=== PATIENT | male | born 1945 | race Caucasian/White ===

== ENCOUNTER 2019-03-15 14:52 | Observation (INO) | payer OTHER ==
[~2019-03-15] VITALS: Ht 190.5 cm; Wt 130.4 kg
--- OUTSIDE RECORDS SUMMARY | ~2019-03-15 | XMS | Encounter Summary ---
Demographics + + + | Address | [address] | | | [place] [address] | + + + | Home Phone | | + + + | Preferred Language | Unknown | + + + | Marital Status | Single | + + + | Restorationist Affiliation | Unknown | + + + | Race | Unknown | + + + | Ethnic Group | Unknown | + + + Author + + + | Author | [facility] | + + + | Organization | [facility] | + + + | Address | Unknown | + + + | Phone | Unavailable | + + + Support + + +---------+ + | Name | Relationship | Address | Phone | + + +---------+ + | Caleb Dawn | ECON | Unknown | | + + +---------+ + Care Team Providers + +------+ + | Care Clinical Account Executive Name | Role | Phone | + +------+ + | Anoop Moyer MD | PCP | | + +------+ + Encounter Details +--------+ + + + + | Date | Type | Department | Care Team | Description | +--------+ + + + + | 03/13/ | Documentati | [facility] | Yumiko Del Valle, | | | 2018 | on Only | Ruddy Witt | [address] | | | | | [address] | [address], | | | | | [place] | [place] [address] | | | | | [address] | [phone] | | | | | [phone] | | | +--------+ + + + [...] + +---------+ + | Alcohol Use | Drinks/We | oz/Week | Comments | | | ek | | | + + +---------+ + | No | | | | + + +---------+ + + + + | Sex Assigned at | Date Recorded | | | | + + + | Not on file | | + + + as of this encounter Plan of Treatment +--------+---------+ + + + | Date | Type | Specialty | Care Team | Description | +--------+---------+ + + + | 05/15/ | Office | Cardiology | Yumiko Del Valle, | | | 2018 | Visit | | MD Lupe Cordero | | | | | | Dr [address], | | | | | | [place] [address] | | | | | | [phone] | | | | | | | | +--------+---------+ + + + as of this encounter Visit Diagnoses Not on filein this encounter"
--- OUTSIDE RECORDS SUMMARY | ~2019-03-15 | XMS | Encounter Summary ---
Demographics + + + | Address | [address] | | | [place] [address] | + + + | Home Phone | | + + + | Preferred Language | Unknown | + + + | Marital Status | Single | + + + | Yarsani Affiliation | Unknown | + + + [...] [place] | | | | | [address] | | + + + + + | Atif Delgadillo | ECON | [place] | | | | | [address] | | + + + + + | Caleb Dawn | VALENTÍN | Unknown | | + + + + + Care Team Providers + +------+ + | Care Manufacturing Coordinator Name | Role | Phone | + +------+ + | Anoop Moyer MD | PCP | | + +------+ + Reason for Visit Evaluate & Treat (Routine) + +--------+ + + + + | Status | Reason | Specialty | Diagnoses / | Referred By | Referred To | | | | | Procedures | Contact | Contact | + +--------+ + + + + | Authorized | | Nephrology | Diagnoses | Kayla, | Daniel, | | | | | Chronic | Quique Montgomery, | Freddy Bhagat DO | | | | | kidney | MD [address] | [address] | | | | | disease, | [place] | [address] | | | | | stage 3 | [address] | [address] [place] | | | | | (moderate) | [place], | [place] | | | | | (HCC) | [place] | [address] Phone: | | | | | Hypertension | [address] | [phone] | | | | | , essential | Phone: | Fax: | | | | | Type 2 | [phone] | [phone] | | | | | diabetes | Fax: | | | | | | mellitus | [phone] | | | | | | with [...] | | | MINUTES | | | + +--------+ + + + + Encounter Details +--------+ [...] | | [address] | [place], [address] | goal blood pressure | | | | [place] | [place] | less than 130/80 | | | | [address] | [address] | (Primary Dx); | | | | [phone] | | Chronic kidney | | | [...] Filed Vital Signs + + + + | Vital Sign | Reading | Time Taken | + + + + | Blood Pressure | 140/76 | 12/31/20181 PST | + + + + | Pulse | - | - | + + + + | Temperature | 36.4 C (97.6 F) | 12/31/20181330 PST | + + + + | Respiratory Rate | - | - | + + + + | Oxygen Saturation | - | - | + + + + | Inhaled Oxygen | - | - | | Concentration | | | + + + + | Weight | 129 kg (284 lb 6.3 | 12/31/2018 1331 PST | | | oz) | | + + + + | Height | - | - | + + + + | Body Mass Index | 35.55 | 10/29/2015 1356 PST | + + + + documented in this encounter Patient Instructions Patient Instructions Freddy Sanchez DO - 12/31/2018 13:00 PST1. Start Sensipar 30 mg, every M-W- only for your PTH and CV risk.Electronically signed by DO charlie Harrison 12/31/2018 17:58 PST documented in this encounter Progress Notes Freddy Sanchez DO - 12/31/2018 1300 PSTFormatting of this note might be different fro m the original. Subjective: NEPHROLOGY Patient ID: Steve Tanner is a 73 y.o. male. 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 He also has a history of a remote DU, 2013, hypertension, hyperlipidemia, DJD of knees, SHPTH, ASCVD, s/p left CEA, 20 , anemia secondary to CKD, gout, and Type [...] switch to glimepiride after consultation with his Development Disability Specialist at [facility]. Outpatient Prescriptions Marked as Taking for the 12/31/18 encounter (Off-Site Visit) with Olayinka Sanchez, DO Medication Sig Dispense Refill allopurinol [...] (ELOCON) 0.1 % cream Apply topically Daily. [place]-3 Fatty Acids (FISH OIL) 1200 MG CAPS [...] PHOSEX 3.6 12/28/2018 PTHEX 141.1 (A) 12/28/2018 AZY6LJP 5.7 06/20/2018 Lab Results Component Value Date [...] will help minimize his risk of ASCVD mcc. 2. His BP control is stable. Will [...] prior to that. : [facility], [facility] Matheus Gregory MD, [facility], [place] documented in this e ncounter Plan of Treatment +--------+ + + + + | Date | Type | Specialty | Care Team | Description | +--------+ + + + + | 06/24/ | Off-Site | Nephrology | Freddy Sanchez | | | 2018 | Visit | | DO Olayink[address] | | | | | | [address] | | | | | | [place] | | | | | | [address] [...]
--- OUTSIDE RECORDS SUMMARY | ~2019-03-15 | XMS | Clinical Summary ---
Demographics + + + | Address | [address] | | | [place] [address] | + + + | Home Phone [...] [place] | | | | | [address] | | + + + + + | Atif Delgadillo | ECON | [place] | | | | | [address] | | + + + + + | Caleb Dawn | VALENTÍN | Unknown | | + + + + + Care Team Providers + +------+ + | Care Rail Car Repair Carman Name | Role | Phone | + +------+ + | Anoop Moyer MD | PP | | + +------+ + Allergies + + + + + + | Active Allergy | Reactions | Severity | Noted | Comments | | | | | Date | | + + + + + + | Lisinopril | Other (See Comments) | | 08/29/20 | Cough | | | | | 13 | | + + + + + + | Penicillins | Rash | Low | 08/29/20 | | | | | [...] e | + + + +---------+------+------+-------+ | Linagliptin | Take 5 mg by mouth | | 0 | | | Activ | | (TRADJENTA) 5 MG | Daily. | | | | | e | | TABSIndications: | | | | | | | [...] hyperlipidemia | | | | | | | + + + +---------+------+------+-------+ | carvedilol (COREG) | TAKE ONE TABLET BY | 60 | 6 | 08/0 | | Activ | | 25 mg tablet | MOUTH TWICE A DAY | tablet | | 05/09 | | e | | | (WITH BREAKFAST AND | | | 14 | | | | | DINNER) | | | | | | + + + +---------+------+------+-------+ | losartan (COZAAR) | Take 1 tablet by | 90 | 4 | / | | Activ | | 25 mg | mouth Daily. | tablet | | 01/09 | | e | | tabletIndications: | | | | 15 | | | | Unspecified | | [...] | | | | | | (HCC), Chronic | | | | | | | | kidney disease, | | | | | | | | stage III (moderate) | | | | | | | | (HCC), | | | | | | | | Hyperlipidemia | | | | | | | + + + +---------+------+------+-------+ | furosemide (LASIX) | TAKE ONE TABLET BY | 60 | 6 | 11/22 | | Activ | | 40 mg tablet | MOUTH TWICE A DAY | tablet | | | | e | | | | | | 15 | | | + + + +---------+------+------+-------+ | aspirin [...] Activ | | (CRESTOR) 5 MG | Three times a week. | | | | | e | [...] | | + + + +---------+------+------+-------+ | calcitRIOL | Take 1 capsule by | 30 | 0 | 07/ | | Activ | | (ROCALTROL) 0.5 MCG | mouth Daily. | capsule | | 8/20 | | e | | capsuleIndications: | | | | 16 | | | | Chronic kidney | [...] | | | | | | | Essential | | | | | | | | hypertension with | | | | | | | | goal blood pressure | | | | | | | | less than 130/80, | | | | | | | | High cholesterol | | | | | | | + + + +---------+------+------+-------+ | [place]-3 Fatty | Take 1,200 mg by | | 0 | | | Activ | | Acids (FISH OIL) | mouth 2 times daily. | | | | | e | | 1200 MG CAPS | | | | | | | + + + +---------+------+------+-------+ | liraglutide | Inject 1.2 mg under | | 11 | 12/0 | | Activ | | (VICTOZA) 18 mg/3 mL | the skin Daily. | | | 03/09 | | e | | | | [...] | | + + + +---------+------+------+-------+ | cinacalcet | Take 1 tablet by | 60 | 3 | 12/21 | | Activ | | (SENSIPAR) 30 mg | mouth Three times a | tablet | | 12/09 | | e | | tabletIndications: | week. | | | 19 | | | | Chronic kidney | | | | | | | | disease, stage III | | | | | | | | (moderate) (HCC), | | | | | | | | Hyperparathyroidism | | | | | | | | due to renal | | | | | | | | insufficiency (HCC), | | | | | | | | Essential | | | | | | | | hypertension with | | | | | | | | goal blood pressure | | | | | | | | less than 130/80, | | | | | | | | Hyperlipidemia, | | | | | | | | mixed | | | | | | | + + + +---------+------+------+-------+ Active Problems + + + | Problem | Noted Date | + + + | Secondary hyperparathyroidism of renal origin | 10/26/2015 | + + + | Chest pain | 01/02/2014 | + + + + + | Overview: Echo, 12/15/2013, LVEF was 75%, Logan BESS | | KELLE Bacauclear Stress Test, LVEF [...] + + | 12/31/ | Off-Site | | Freddy Sanchez | Essential | | 2019 | Visit | | M, DO | hypertension with | | | | | | goal blood pressure | | | | | | less than 130/80 | | | | | | (Primary [...] mixed | +--------+ + + + + | 12/31/ | Abstract | | Freddy Sanchez | | | 2018 | | | M, DO | | +--------+ + + + + from Last 3 Months Family History + + + + + | Medical History | Relation | Name | Comments | + + + + + | Arthritis | Mother | Yulisa B. | | | | | | | | | | [place] | | + + + + + | Heart disease | Mother | Redfield B. | Had Triple heart bipass. | | | | | | | | | [place] | | + + + + + + + + + + | Relation | Name | Status | Comments | + + + + + | Father | | | ALCOHOL ABUSE | | | | (Age | | | | | 63) | | + + + + + | Mother | | | CORONARY ARTERY DISEASE | | | | (Age | | | | | 79) | | + + + + + | Mother | Redfield BBeny | | | | | [place] | [...] + | Pulse | 64 | 10/29/2015 1356 PST | + + + + | Temperature | 36.4 C (97.6 F) | 12/31/20181 PST | + + + + | Respiratory Rate | 16 | 10/29/2015 1356 PST | + + + + | Oxygen Saturation | 98% | 09/04/2013 1053 PDT | + + + + | Inhaled Oxygen | - | - | | Concentration | | | + + + + | Weight | 129 kg (284 lb 6.3 | 12/31/2018 1331 PST | | | oz) | | + + + + | Height | 190.5 cm (6' 3") | 10/29/2015 1356 PST | + + + + | Body Mass Index | 35.55 | 10/29/2015 1356 PST | + + + + Plan of Treatment +--------+ + + + + | Date | Type | Specialty | Care Team | Description | +--------+ + + + + | 06/24/ | Off-Site | | Freddy Sanchez | | | 2018 | Visit | | DO [address] | | | | | | [address] | | | | | | [place], [place] | | | | | | [address] | | | | | | | | +--------+ + + + + + + + [...] | | | Dtap/Tdap/Td (1 - | 2 | | | | Tdap) | | | | + + + + + | Vaccine: Zoster (1 | | | | | of 2) | 3 | | | + + + + + | Vaccine: | | 12/03/2008 | | | Pneumococcal 65+ | 0 | | | | Low/Medium Risk (2 | | | | | of 2 - PCV13) | | | | + + + + + | Adult Annual | | | | | Wellness Visit | 5 | | | + + + + + | Hemoglobin A1c | | 12/28/2018, 06/20/2018, | | | Screening | 9 | 06/20/2018, Additional history | | | | | exists | | + + + + + | Vaccine: Influenza | Completed | 11/22/2018, 08/30/2017, | | | | | 10/31/2015 | | + + + + + Procedures + +--------+ + + + | Procedure Name | Priori | Date/Time | Associated Diagnosis | Comments | | | ty | | | | + +--------+ + + + | LABS - EXTERNAL SCAN | | 12/28/2018 | | Results for this | | | | 0:00 PST | | procedure are in the | [...] | EXTERNAL LAB: PTH, | Routin | 12/28/2018 | | Results [...] | EXTERNAL LAB: TK | Routin | 12/28/2018 | | Results for this | | | e | | | procedure are in the | | | | | | results section. | + +--------+ + + + | EXTERNAL LAB: ORION | Yusuf | 12/28/2018 | | Results for this [...] | EXTERNAL LAB: CBC | Routin | 12/28/2018 | | Results [...] Last 3 Months Results External Lab: BUN (12/28/2018) + +-------+ + [...] + +-------+ + + + External Lab: PTH, Intact (12/28/2018) [...] | | + + External Lab: CBC (12/28/2018) + [...] + + | Blood | + + LABS - EXTERNAL SCAN (12/28/2018 0:00 PST) + + + | Narrative | Performed At | + + + | Ordered by an | | | unspecified provider. | | + + + Creatinine Clearance, Result (12/28/2018) + + + [...] | Urine | + + Hemoglobin A1C (12/28/2018) + [...] + + | Blood | + + from Last 3 Months Insurance [...] +---------+--------+ | [employer]EFIT | MAILHA | [id number] | 11/20/19 | [phone] | | PPO | | PLN | NDLERS | | 18-Pre | 8 | | | | | [employer] | | sent | | | | | | PPO | | | | | | + +--------+ +--------+ +---------+--------+ | MEDICARE | MEDICA | [id number] | 02/19/20 | [phone] | | Medica [...] | + +--------+ +--------+ + + | Steve Tanner | Person | Self | [birth year] | [address] | | [place] | al/Fam | | 1945 | [phone] | [place] | | | [place] | | | [address] [place]) | [address] | + +--------+ +--------+ + + Advance Directives Patient has advance care planning documents on file. For more information, please contact:[facility] [address]
--- OUTSIDE RECORDS SUMMARY | ~2019-03-15 | XMS | Encounter Summary ---
Demographics + + + | Address | [address] | | | [place] [address] | + + + | Home Phone [...] [place] | | | | | [address] | | + + + + + | Atif Delgadillo | ECON | [place] | | | | | [address] | | + + + + + | Caleb Dawn | VALENTÍN | Unknown | | + + + + + Care Team Providers + +------+ + | Care Veneer Stock Grader Name | Role | Phone | [...] NEPHROLOGY [address] | M, DO [address] | | | | | [address] [facility] | [place] | | | | | [place], [place] | [place], [place] | | | | | [address] | [address] | | | | | [phone] | | | +--------+ + + + [...] | 2018 | Visit | | DO Anival Bhagat | | | | | | [address] | | | | | | [place] | | | | | | [address] | | | | | | | [...] | EXTERNAL LAB: ENRICO | Routin | 12/28/2018 | | Results [...]
--- OUTSIDE RECORDS SUMMARY | ~2019-03-15 | XMS | Encounter Summary ---
Demographics + + + | Address | [address] | | | [place] [address] | + + + | Home Phone | | + + + | Preferred Language | Unknown | + + + | Marital Status | Single | + + + | Gnosticism Affiliation | Unknown | + + + | Race | Unknown | + + + | Ethnic Group | Unknown | + + + Author + + + | Author | [facility] | + + + | Organization | [facility] | + + + | Address | Unknown | + + + | Phone | Unavailable | + + + Support + + +---------+ + | Name | Relationship | Address | Phone | + + +---------+ + | Caleb Dawn | ECON | Unknown | | + + +---------+ + Care Team Providers + +------+ + | Care Shield Operator Name | Role | Phone | + +------+ + | Anoop Moyer MD | PCP | | + +------+ + Encounter Details +--------+ + + + + | Date | Type | Department | Care Team | Description | +--------+ + + + + | 03/13/ | Documentati | [facility] | Yumiko Del Valle, | | | 2018 | on Only | Ruddy Witt | [address] | | | | | [address] | [address], | | | | | [place] | [place] [address] | | | | | [address] | [phone] | | | | | [phone] | | | +--------+ + + + [...] | | | | | | [place] [address] | | | | | | [phone] | | | | | | | | +--------+---------+ + + + as of this encounter Visit Diagnoses Not on filein this encounter"
--- OUTSIDE RECORDS SUMMARY | ~2019-03-15 | XMS | Encounter Summary ---
Demographics + + + | Address | [address] | | | [place] [address] | + + + | Home Phone | | + + + | Preferred Language | Unknown | + + + | Marital Status | Single | + + + | Rastafari Affiliation | Unknown | + + + | Race | Unknown | + + + | Ethnic Group | Unknown | + + + Author + + + | Author | [email or web address] | + + + | Organization | [email or web address] | + + + | Address | Unknown | + + + | Phone | Unavailable | + + + Support + + +---------+ + | Name | Relationship | Address | Phone | + + +---------+ + | Caleb Dawn | ECON | Unknown | | + + +---------+ + Care Team Providers + +------+ + | Care Paper Sales Representative Name | Role | Phone | + +------+ + | Anoop Moyer MD | PCP | | + +------+ + Encounter Details +--------+ + + + + | Date | Type | Department | Care Team | Description | +--------+ + + + + | 03/13/ | Documentati | [facility] | Yumiko Del Valle, | | | 2018 | on Only | Ruddy Witt | [address] | | | | | [address] | [address], | | | | | [place] | [place] [address] | | | | | [address] | [phone] | | | | | [phone] | | | +--------+ + + + [...] | | | | | | [place] [address] | | | | | | [phone] | | | | | | | | +--------+---------+ + + + as of this encounter Visit Diagnoses Not on filein this encounter"
--- OUTSIDE RECORDS SUMMARY | ~2019-03-15 | XMS | Clinical Summary ---
Demographics + + + | Address | [address] | | | [place] [address] | + + + | Home Phone | | + + + | Preferred Language | Unknown | + + + | Marital Status | Single | + + + | Hinduism Affiliation | Unknown | + + + | Race | Unknown | + + + | Ethnic Group | Unknown | + + + Author + + + | Author | [facility] | + + + | Organization | [facility] | + + + | Address | Unknown | + + + | Phone | Unavailable | + + + Support + + +---------+ + | Name | Relationship | Address | Phone | + + +---------+ + | Caleb Dawn | ECON | Unknown | | + + +---------+ + Care Team Providers + +------+ + | Care Mail Examiner Name | Role | Phone | + [...] | Other (See Comments) | Medium | 02/01/20 | weakness | | | | | 18 | | + + + + + + | Lisinopril | Cough | Low | 02/01/20 | | | | | | 18 | | + + + + + + | Penicillins | Hives | High | 02/01/20 | | | | | | 18 | | + + + + + + Current Medications + + +-------+---------+------+------+-------+ | Prescription | Sig. | Disp. | Refills | Star | End | Statu | | | | | | t | Date | s | | | | | | Date | | | + + +-------+---------+------+------+-------+ | fish oil omega-3 | Take 1 g by mouth | | | | | Activ | | fatty acids 1000 MG | daily. | | | | | e | | capsule | | | | | | | + + +-------+---------+------+------+-------+ | cyanocobalamin | Take 1,000 mcg by | | | | | Activ | | (VITAMIN B-12) 1000 | mouth daily. | | | | | e | | MCG tablet | | | | | | | + + +-------+---------+------+------+-------+ | aspirin 81 MG | Take 81 mg by mouth | | | | | Activ | | tablet | daily. | | | | | e | + + +-------+---------+------+------+-------+ | acetaminophen | Take 500 mg by mouth | | | | | Activ | | (TYLENOL) 500 MG | every 6 (six) hours | | | | | e | | tablet | as needed for Pain. | | | | | | + + +-------+---------+------+------+-------+ | losartan (COZAAR) | Take 25 mg by mouth | | | | | Activ | | 25 MG tablet | daily. | | | | | e | + + +-------+---------+------+------+-------+ | rosuvastatin | Take 5 mg by mouth 3 | | | | | Activ | | (CRESTOR) 5 MG | (three) times a | | | | | e | | tablet | week. | | | | | | + + +-------+---------+------+------+-------+ | carvedilol (COREG) | Take 25 mg by mouth | | | | | Activ | | 25 MG tablet | 2 (two) times daily | | | | | e | | | with meals. | | | | | | + + +-------+---------+------+------+-------+ | linagliptin | Take 5 mg by mouth | | | | | Activ | | (TRADJENTA) 5 MG | daily. | | | | | e | | tablet | | | | | | | + + +-------+---------+------+------+-------+ | furosemide (LASIX) | Take 40 mg by mouth | | | | | Activ | | 40 MG tablet | 2 (two) times daily. | | | | | e | + + +-------+---------+------+------+-------+ | mometasone | Apply topically | | | | | Activ | | (ELOCON) 0.1 % cream | daily. | | | | | e | + + +-------+---------+------+------+-------+ | calcitRIOL | Take 0.5 mcg by | | | | | Activ | | (ROCALTROL) 0.5 MCG | mouth daily. | | | | | e | | capsule | | | | | | | + + +-------+---------+------+------+-------+ | allopurinol | Take 300 mg by mouth | | | | | Activ | | (ZYLOPRIM) 300 MG | daily. | | | | | e | | tablet | | | | | | | + + +-------+---------+------+------+-------+ | liraglutide | Inject 1.8 mg into | | | | | Activ | | (VICTOZA) 18 MG/3ML | the skin daily. | | | | | e | | injection | | | | | | | + + +-------+---------+------+------+-------+ Active Problems + + + | Problem | Noted Date | + + + | ASCVD (arteriosclerotic cardiovascular disease) | 01/31/2018 | + + + | CHF (congestive heart failure) ([facility]) | 01/31/2018 | + + + | Essential hypertension with goal blood pressure less than 130/80 | 01/31/2018 | + + + | S/P carotid endarterectomy | 01/31/2018 | + + + | QUIANA treated with BiPAP | 01/31/2018 | + + + | Secondary hyperparathyroidism of renal origin (HCC) | 10/26/2015 | + + + | History of GI bleed | 12/24/2013 | + + + | Chronic kidney disease, stage III (moderate) (HCC) | 09/05/2013 | + + + | Type 2 diabetes mellitus with stage 3 chronic kidney disease | 09/05/2013 | | (HCC) | | + + + Encounters +--------+ + + + + | Date | Type | Specialty | Care Team | Description | +--------+ + + + + | 03/13/ | Documentati | | Yumiko Del Valle, | | | 2018 | on Only | | MD | | +--------+ + + + + from Last 3 Months Family History + + +------+ + | Medical History | Relation | Name | Comments | + + +------+ + | Alcohol abuse | Father | | | + + +------+ + | Cirrhosis | Father | | | + + +------+ + | Deep vein thrombosis | Father | | | + + +------+ + | Heart failure | Mother | | | + + +------+ + + +------+ + + | Relation | Name | Status | Comments | + +------+ + + | Father | | | | | | | (Age | | | | | 63) | | + +------+ + + | Mother | | | Triple CABG | | | | (Age | | | | | 86) | | + +------+ + + Social History + +-------+ +--------+------+ [...] on file | | + + + Last Filed Vital Signs + + + + | Vital Sign | Reading | Time Taken | + + + + | Blood Pressure | 146/70 | 01/31/2018 2:58 PM PDT | + + + + | Pulse | 61 | 01/31/2018 2:58 PM PDT | + + + + | Temperature | - | - | + + + + | Respiratory Rate | - | - | + + + + | Oxygen Saturation | 95% | 01/31/2018 2:58 PM PDT | + + + + | Inhaled Oxygen | - | - | | Concentration | | | + + + + | Weight | 131.9 kg (290 lb | 01/31/2018 2:58 PM PDT | | | 11.2 oz) | | + + + + | Height | 185.4 cm (6' 1") | 01/31/2018 2:58 PM PDT | + + + + | Body Mass Index | 38.35 | 01/31/2018 2:58 PM PDT | + + + + Plan of Treatment +--------+---------+ + + + | Date | Type | Specialty | Care Team | Description | +--------+---------+ + + + | 05/15/ | Office | | Yumiko Del Valle, | | | 2019 | Visit | | MD Lupe Cordero | | | | | | Dr [place], | | | | | | [place] [address] | | | | | | [phone] | | | | | | | | +--------+---------+ + + + + + + + + | Health Maintenance | Due Date | Last Done | Comments | + + + + + | Diabetic Eye Exam | | | | | | 3 | | | + + + + + | Diabetic Foot Exam | | | | | | 3 | | | + + + + + | Hemoglobin A1c | | | | | | 3 | | | + + [...] | | | | | Pneumococcal 65+ | 8 | | | | Low/Medium Risk (1 | | | | | of 2 - PCV13) | | | | + + + + + | Vaccine: Influenza | | | | | (Season Ended) | 9 | | | + + + + + Results Not on filefrom Last 3 Months Insurance + +--------+ +------+-------+ + | Payer | Benefi | Subscriber | Type | Phone | Address | | | t Plan | ID | | | | | | / | | | | | | | Group | | | | | + +--------+ +------+-------+ + | AETNA | AETNA | [id number] | | | | | | - | | | | | | | [place] | | | | | | | [place] - | | | | | | | [place] | | | | | + +--------+ +------+-------+ + | MEDICARE | MEDICA | [id number] | | | [address] | | | RE | | | | [place] [phone] | | | PART A | | | | | | | ONLY | | | | | + +--------+ +------+-------+ + + +--------+ +--------+ + + | Guarantor Name | Accoun | Relation to | Date | Phone | Billing Address | | | t Type | Patient | of | | | | | | | | | | + +--------+ +--------+ + + | SERGEI TANNER | Person | Self [birth year] Home: | [address] | | | al/Fam | | 1945 | [phone] | [place] | | | [place] | | | [phone] | [phone] | + +--------+ +--------+ + +
--- OUTSIDE RECORDS SUMMARY | ~2019-03-15 | XMS | Encounter Summary ---
Demographics + + + | Address | [address] | | | [place] [address] | + + + | Home Phone [...] [place] | | | | | [address] | | + + + + + | Atif Delgadillo | ECON | [place] | | | | | [address] | | + + + + + | Caleb Dawn | VALENTÍN | Unknown | | + + + + + Care Team Providers + +------+ + | Care Refinery Operator Helper Cracking Unit Name | Role | Phone | + [...] | kidney | MD [address] | | | | | disease, | [place] | [place] | | | | | stage 3 | [place] [address] | [address] [place] | | | | | (moderate) | [place], | [place] | | | | | (HCC) | [place] | [address] Phone: | | | | | Hypertension | [address] | [phone] | | | | | , essential | Phone: | Fax: | | | | | Type 2 | [phone] | [phone] | | | | | diabetes | Fax: | | | | | | mellitus | [phone] | | | | | | with stage 3 | | | | | | | chronic | | | | | | | kidney | | | | | | | disease | | | | | | | (HCC) | | | | | | | Procedures | | | | | | | [place] OFFICE | | | | | | [...] | | [address] | [place], [place] [address] | goal blood pressure | | | | [place] Sand[place] | [place] | less than 130/80 | | | | [address] | [address] | (Primary Dx); | | | | [phone] | | Chronic kidney | | | [...] switch to glimepiride after consultation with his Residential Carpenter at [facility]. Outpatient Prescriptions Marked as Taking for the [...] (ELOCON) 0.1 % cream Apply topically Daily. [place]-3 Fatty Acids (FISH OIL) 1200 MG CAPS [...] PHOSEX 3.6 12/28/2018 PTHEX 141.1 (A) 12/28/2018 [id number] 5.7 06/20/2018 Lab Results Component Value Date [...] will help minimize his risk of ASCVD assisted. 2. His BP control is stable. Will [...] prior to that. : [facility], [facility] Matheus Gregory MD, [facility], [place] documented in this e ncounter Plan of Treatment +--------+ + + + + | Date | Type | Specialty | Care Team | Description | +--------+ + + + + | 06/24/ | Off-Site | Nephrology | Freddy Sanchez | | | 2018 | Visit | | DO [address] | | | | | | [address] | | | | | | [place] | | | | | | [address] [...]
--- OUTSIDE RECORDS SUMMARY | ~2019-03-15 | XMS | Encounter Summary ---
Demographics + + + | Address | [address] | | | [place] [address] | + + + | Home Phone [...] [place] | | | | | [address] | | + + + + + | Atif Delgadillo | ECON | [place] | | | | | [address] | | + + + + + | Caleb Dawn | VALENTÍN | Unknown | | + + + + + Care Team Providers + +------+ + | Care Livestock Trucker Name | Role | Phone | + [...] | kidney | MD [address] | [address] | | | | | disease, | [place] | [place] | | | | | stage 3 | [place] [address] | [address] [place] | | | | | (moderate) | [place], | [place] | | | | | (HCC) | [place] | [address] Phone: | | | | | Hypertension | [address] | [phone] | | | | | , essential | Phone: | Fax: | | | | | Type 2 | [phone] | [phone] | | | | | diabetes | Fax: | | | | | | mellitus | [phone] | | | | | | with stage 3 | | | | | | | chronic | | | | | | | kidney | | | | | | | disease | | | | | | | (HCC) | | | | | | | Procedures | | | | | | | [place] OFFICE | | | | | | [...] | | [address] | [place], [place] [address] | goal blood pressure | | | | [place] Sandoval | [place] | less than 130/80 | | | | [address] | [address] | (Primary Dx); | | | | [phone] | | Chronic kidney | | | [...] switch to glimepiride after consultation with his Phonograph Mechanic at [facility]. Outpatient Prescriptions Marked as Taking [...] (ELOCON) 0.1 % cream Apply topically Daily. [place]-3 Fatty Acids (FISH OIL) 1200 MG CAPS [...] PHOSEX 3.6 12/28/2018 PTHEX 141.1 (A) 12/28/2018 [id number] 5.7 06/20/2018 Lab Results Component Value Date [...] will help minimize his risk of ASCVD [facility]. 2. His BP control is stable. Will [...] prior to that. : [facility] MD, [facility], [facility] Matheus Gregory MD, [facility], [place] documented in this e ncounter Plan of Treatment +--------+ + + + + | Date | Type | Specialty | Care Team | Description | +--------+ + + + + | 06/24/ | Off-Site | Nephrology | Freddy Sanchez | | | 2018 | Visit | | DO [address] | | | | | | [address] | | | | | | [place] | | | | | | [address] [...]
--- OUTSIDE RECORDS SUMMARY | ~2019-03-15 | XMS | Clinical Summary ---
Demographics + + + | Address | [address] | | | [place] [address] | + + + | Home Phone [...] [place] | | | | | [address] | | + + + + + | Atif Delgadillo | ECON | [place] | | | | | [address] | | + + + + + | Caleb Dawn | VALENTÍN | Unknown | | + + + + + Care Team Providers + +------+ + | Care Registration Rep Name | Role | Phone | + [...] | | + + + +---------+------+------+-------+ | [place]-3 Fatty | Take 1,200 mg by | [...] + | Heart disease | Mother | [place] B. | Had Triple heart bipass. | [...] + + + + | Mother | [place] BBeny | | | | | Flores [...] | Visit | | DO [address] | | | | | | [address] | | | | | | [place], [place] | | | | | | [address] | | | | | | | [...] +---------+--------+ | [employer]IL[employer]LERS BENEFIT | MAILHA | [id number] | 11/20/19 | [phone] | | PPO | | PLN | NDLERS | | 18-Pre | 8 | | | | | AETNA | | sent | | | | | | PPO | | | | | | + +--------+ +--------+ +---------+--------+ | MEDICARE | MEDICA | [id number] | 02/19/20 | [phone] | | Medica [...] | | [place] | | | [place] ([place]) | [address] | + +--------+ +--------+ + + Advance Directives Patient has advance care planning documents on file. For more information, please contact:[facility] and [facility] [place] [address]
--- OUTSIDE RECORDS SUMMARY | ~2019-03-15 | XMS | Encounter Summary ---
Demographics + + + | Address | [address] | | | [place] [address] | + + + | Home Phone [...] [place] | | | | | [address] | | + + + + + | Atif Delgadillo | ECON | [place] | | | | | [address] | | + + + + + | Caleb Dawn | VALENTÍN | Unknown | | + + + + + Care Team Providers + +------+ + | Care Yard Loader Operator Name | Role | Phone [...] NEPHROLOGY [address] | M, DO [address] | | | | | [address] [facility] [address] | [place], [facility] 100 | | | | | [place], [place] | [place], [place] | | | | | [address] | [address] | | | | | [phone] | | | +--------+ + + + [...] [place] | | | | | | [address] | | | | | | | [...]
--- OUTSIDE RECORDS SUMMARY | ~2019-03-15 | XMS | Clinical Summary ---
Demographics + + + | Address | [address] | | | [place] [address] | + + + | Home Phone [...] [place] | | | | | [address] | | + + + + + | Atif Delgadillo | ECON | [place] | | | | | [address] | | + + + + + | Caleb Dawn | VALENTÍN | Unknown | | + + + + + Care Team Providers + +------+ + | Care Inspector Grain Mill Products Name | Role | Phone | + [...] | | + + + +---------+------+------+-------+ | [place]-3 Fatty | Take 1,200 mg by | [...] + | Heart disease | Mother | [place] B. | Had Triple heart bipass. | [...] + + + + | Mother | [place] BBeny | | | | | Flores [...] | Visit | | DO [address] [place] [place] | | | | | | [address] | | | | | | [place], [place] | | | | | | [address] | | | | | | | [...] +---------+--------+ | [employer]IL[employer] BENEFIT | MAILHA | [id number] | 11/20/19 | [phone] | | PPO | | PLN | NDLERS | | 18-Pre | 8 | | | | | AETNA | | sent | | | | | | PPO | | | | | | + +--------+ +--------+ +---------+--------+ | MEDICARE | MEDICA | [id number] | 02/19/20 | [phone] | | Medica [...] | | [place] | | | 7 ([place]) | [address] | + +--------+ +--------+ + + Advance Directives Patient has advance care planning documents on file. For more information, please contact:[facility] and [facility] [place] [address]
--- OUTSIDE RECORDS SUMMARY | ~2019-03-15 | XMS | Clinical Summary ---
Demographics + + + | Address | [address] | | | [place] [address] | + + + | Home Phone | | + + + | Preferred Language | Unknown | + + + | Marital Status | Single | + + + | Catholic Affiliation | Unknown | + + + | Race | Unknown | + + + | Ethnic Group | Unknown | + + + Author + + + | Author | [facility] | + + + | Organization | [facility] | + + + | Address | Unknown | + + + | Phone | Unavailable | + + + Support + + +---------+ + | Name | Relationship | Address | Phone | + + +---------+ + | Caleb Dawn | ECON | Unknown | | + + +---------+ + Care Team Providers + +------+ + | Care Sports Marketing Internship Name | Role | Phone | [...] + + | CHF (congestive heart failure) ([facility]) | 01/31/2018 | + + + | [...] [place], | | | | | | [place] [address] | | | | | | [phone] | | | | | | | [...] +------+-------+ + | AETNA | AETNA | [id number] | | | | | | - | | | | | | | [place] | | | | | | | [place] | | | | | | | [place] | | | | | + +--------+ +------+-------+ + | MEDICARE | MEDICA | [id number] | | | [address] | | | RE | | | | [place] [address] | | | PART A | | [...] Self | [birth year] | Home: | [address] | | | al/Fam | | 1945 | [phone] | [place] | | | [place] | | | [phone] | [address] | + +--------+ +--------+ + +
--- OUTSIDE RECORDS SUMMARY | ~2019-03-15 | XMS | Encounter Summary ---
Demographics + + + | Address | [address] | | | [place] [address] | + + + | Home Phone [...] + + + | Author | [facility] | | | and [place] | + + + | Organization | [facility] | | | and [place] | + + + | Address | Unknown | + + + | Phone | Unavailable | + + + Support + + + + + | Name | Relationship | Address | Phone | + + + + + | Hi Dawn | ECON | [place] | | | | | [address] | | + + + + + | Atif Delgadillo | ECON | [place] | | | | | [address] | | + + + + + | Caleb Dawn | VALENTÍN | Unknown | | + + + + + Care Team Providers + +------+ + | Care Hospital Nurse Liaison Name | Role | Phone | + [...] NEPHROLOGY [address] | M, DO [address] | | | | | [address] [facility] | [place], [facility] 100 | | | | | [place], [place] | [place], [place] | | | | | [address] | [address] | | | | | [phone] | | | +--------+ + + + [...] 06/24/ | Off-Site | Nephrology | Freddy Sancehz | | | 2018 | Visit | | DO Anival Bhagat | | | | | | [address] | | | | | | [place] | | | | | | [address] | | | | | | | [...]
--- OUTSIDE RECORDS SUMMARY | ~2019-03-15 | XMS | Clinical Summary ---
Demographics + + + | Address | [address] | | | [place] [address] | + + + | Home Phone | | + + + | Preferred Language | Unknown | + + + | Marital Status | Single | + + + | Zoroastrianism Affiliation | Unknown | + + + | Race | Unknown | + + + | Ethnic Group | Unknown | + + + Author + + + | Author | [facility] | + + + | Organization | [facility] | + + + | Address | Unknown | + + + | Phone | Unavailable | + + + Support + + +---------+ + | Name | Relationship | Address | Phone | + + +---------+ + | Caleb Dawn | ECON | Unknown | | + + +---------+ + Care Team Providers + +------+ + | Care Bi Analyst Name | Role | Phone | [...] | CHF (congestive heart failure) ([facility]) | 01/31/2018 | + + + [...] [place], | | | | | | [place] [address] | | | | | | [phone] | | | | | | | [...] +------+-------+ + | AETNA | AETNA | [id number] | | | | | | - | | | | | | | [place] | | | | | | | [place] | | | | | | | [place] | | | | | + +--------+ +------+-------+ + | MEDICARE | MEDICA | [id number] | | | [address] | | | RE | | | | [place] [address] | | | PART A | | [...] Self | [birth year] | Home: | [address] | | | al/Fam | | 1945 | [phone] | [place] | | | [place] | | | [phone] | [address] | + +--------+ +--------+ + +
[~2019-03-15 14:52] MED LIST: ALLOPURINOL100 MG PO; ASPIRIN EC81 MG PO; ATENOLOL100 MG PO; BENICAR HCT 401 EAC1 PO; BETAMETHASONE V15 G1 TP; CALCITRIOL0.5 MCG PO; CARDIZEM CD180 MG PO; CARVEDILOL12.5 MG PO; CLARITIN-D 121 EACH PO; CLONIDINE HCL0.1 MG PO; CYCLOBENZAPRINE10 MG PO; DILTIAZEM 24HR180 M1 PO; FISH OIL 1,2001 EAC4 PO; GEMFIBROZIL600 MG PO; HYDROCODON-ACE1 EAC8 PO; LANTUS100 UNIT/1 SUB-Q; LASIX40 MG PO; LOSARTAN POTASS25 MG PO; METFORMIN HCL500 MG PO; NATEGLINIDE60 MG PO; NIACIN500 M1 PO; NITROSTAT0.4 MG SL; OMEPRAZOLE20 MG PO; PERCOCET 5-3251 EACH PO; PLAVIX75 MG PO; PROBENECID-COL1 EACH PO; PROCRIT10000 UNIT IJ; ROSUVASTATIN CAL5 MG PO; SIMVASTATIN10 MG PO; SUCRALFATE1 GM PO; SUDOGEST30 MG PO; TERBINAFINE HC250 MG PO; TRADJENTA5 MG PO; VICTOZA 2-0.6 MG/0.1 SUB-Q
[2019-03-15] MEDS ORDERED: VICTOZA 3-0.6 MG/0.1 SUB-Q (15:07)
[2019-03-15] MEDS ORDERED: CARVEDILOL25 MG PO (17:58)
[2019-03-15] MEDS ORDERED: ALLOPURINOL300 MG PO (18:00)
[2019-03-15] MEDS ORDERED: GLIMEPIRIDE1 MG PO (18:01)
--- NOTE | 2019-03-15 18:31 | NUR ---
174: PT ARRIVED TO MED-SURG. PT DENIES ANY PAIN OR DIFFICULTY WITH HIS VISION, HOWEVER HE STATES HE STILL FEELS WEAK. PT AMBULATED TO THE BR AND VOIDED 550 ML OF CLEAR YELLOW URINE. TELE #1 PLACED AND IT APPEARS TO BE SR AT AROUND 70 BPM. IV FLUID STARTED ORDERED. PT ORIENTED TO THE ROOM AND INSTUCTED IN THE USE OF THE CALL HANNAH. PT APPEARS IN NO DISTRESS AT THIS TIME.
--- NOTE | 2019-03-15 18:33 | NUR ---
Medications reconciled with some changes, notably, Carvedilol is 25mg BID instead of 12.5mg BID, daily ASA is 81mg rather than 325mg, allopurinol is 300mg daily rather than 200mg daily
--- NOTE | 2019-03-15 19:30 | NUR ---
RECIEVED BEDSIDE REPORT FROM DAYLIN MEYERS. PATIENT LAYING AWAKE IN BED WITH DINNER AND VISITORS AT BEDSIDE. CALL LIGHT WITHIN REACH. PATIENT DENIES ANY NEEDS AT THIS TIME.
--- NOTE | 2019-03-15 19:40 | NUR ---
NOTIFED RESPIRATORY THERAPIST OF PATIENT'S HOME CPAP MACHINE AT BEDSIDE.
--- NOTE | 2019-03-15 20:30 | NUR ---
PROVIDED BEDSIDE REPORT TO ALYSE MEYERS. PATIENT LAYING AWAKE IN BED. CALL LIGHT WITHIN REACH. NO MORE NEEDS AT THIS TIME.
--- NOTE | 2019-03-15 20:45 | NUR ---
AMUSEMENT CENTRE MANAGER ROUNDING COMPLETE. WHITE BOARD UPDATED. PT DENIES NEEDS AT THIS TIME. CALL LIGHT WITHIN REACH.
--- NOTE | 2019-03-15 20:54 | NUR ---
Vital signs and I&Os were complete. patient doesnt need anything further at this time.
--- NOTE | 2019-03-16 | NUR ---
PATIENT RESTING QUIETLY IN BED WATCHING TV.
--- NOTE | 2019-03-16 02:00 | NUR ---
JUST GOT PATIENT BACK INTO BED AFTER 1 PSBA TO THE BATHROOM TO VOID IN THE URINAL. DENIES PAIN. WATER AT BEDSIDE AND CALL LIGHT IN REACH.
--- NOTE | 2019-03-16 03:26 | NUR ---
RESTING QUIETLY SUPINE EYES CLOSED, RESPIRATIONS REGULAR AND EVEN.
--- NOTE | 2019-03-16 05:30 | NUR ---
PATIENT IS AWAKE READING A BOOK AND WATCHING TV AT THIS TIME. SLEPT WELL EXCEPT FOR WHEN HE NEEDED TO GET UP AND USE THE BATHROOM.
--- NOTE | 2019-03-16 07:34 | NUR ---
BEDSIDE REPORT RECIEVED FROM ALYSE MEYERS. PT LYING IN BED AND HE STATES HE IS FEELING "BETTER". CALL LIGHT AND PERSONAL ITEMS WITHIN REACH.
--- NOTE | 2019-03-16 09:15 | NUR ---
PT RESTING IN HIS BED AND HE STATES HE IS FEELING A LITTLE WEAK BUT IT HAS IMPROVED OVER YESTERDAY. HE ALSO STATES HIS VISION SEEMS BASELINE WHICH IT WAS NOT YESTERDAY AFTERNOON.
--- NOTE | 2019-03-16 09:28 | NUR ---
tele sr at 63 at this time.
--- NOTE | 2019-03-16 10:00 | NUR ---
IV SITE SALINE LOCKED ORDERED. PT DENIES ANY NEW PROBLEMS AT THIS TIME.
--- NOTE | 2019-03-16 10:41 | NUR ---
REPORT GIVEN TO SHARA MEYERS.
--- NOTE | 2019-03-16 16:03 | NUR ---
PT RESTING COMFORTABLY. NO NEEDS AT THIS TIME.
--- NOTE | 2019-03-16 18:06 | NUR ---
PT CO OF NASAL CONGESTION AND HEADACHE. HE HAS NASAL SPRAY AT BEDSIDE. PT DOES NOT THINK TYLENOL IS EFFECTIVE.
--- NOTE | 2019-03-16 18:30 | NUR ---
PT ALERT AND AWAKE ALL SHIFT. TOLERATED RENAL DIET WELL. VOIDING WELL. MAINTAINING SINUS RYTHYM ON TELE. NO PAUSES NOTED. S/L.
--- NOTE | 2019-03-16 19:48 | NUR ---
PATIENT HAVING NO PAIN AND IS SITTING IN BED WATCHING TV. PATIENT HAS WATER AND HAS NO NEEDS AT THIS TIME. CALL LIGHT IN REACH.
--- NOTE | 2019-03-16 20:55 | NUR ---
ART CRITIC ROUNDING NOTE. PT STANDING UP AT COUCH, LOOKING OUTSIDE. PT STATES HE IS JUST "STRECHING HIS LEGS AFTER BEING IN BED A FEW DAYS". AGREES THAT HE IS FEELING BETTER. PT TELE BATTERY CHANGED. URINAL EMTPIED. ICE WATER PROVIDED. PT DENIES FURTHER NEEDS. CALL LIGHT IN REACH. WHITE BOARD UPDATED.
--- NOTE | 2019-03-16 21:38 | NUR ---
PATIENT SITTING IN BED WATCHING BASEBALL. NO NEEDS AT THIS TIME.
--- NOTE | 2019-03-16 21:58 | NUR ---
V/S AND I&O TAKEN AND CHARTED.
--- NOTE | 2019-03-16 21:59 | NUR ---
CHIEF ORDER DISPATCHER ROUNDING NOTE. PT UP TO BATHROOM WITH 2 PA AND CAREGIVER SBA. PT YELLLING, ATTEMPTING TO PULL CATHETER OUT DESPITE REDIRECTION. PT HIT FOOD AND BEVERAGE DIRECTOR AND DISABILITY REPRESENTATIVE. PT ASSISTED BACK TO BED. CG DENIES FURTHER NEEDS. BED ALARM ACTIVE. PRIMARY RN IN ROOM AT FOOD AND BEVERAGE DIRECTOR EXITING. CALL LIGHTIN REACH. ROOM IN VIEW OF RN STATION. WHITE BOARD UPDATED.
--- NOTE | 2019-03-16 23:01 | NUR ---
PATIENT STOOD AT BED SIDE TO USE URINAL AND THEN WAS INCONTINENT STOOL AND DRAW SHEET HAD TO BE CHANGED AND PAYROLL SERVICES ANALYST'S GOT PATIENT BACK TO BED. CALL LIGHT IN REACH.
--- NOTE | 2019-03-16 23:07 | NUR ---
PATIENT STILL SITTING IN TV WATCHING TV. NO NEEDS AT THIS TIME. CALL LIGHT IN REACH.
--- NOTE | 2019-03-17 00:16 | NUR ---
PATIENT HAD FALLEN ASLEEP BUT HAD FORGOTTEN TO PU ON HIS CPAP, SO AWOKE HIM LONG ENOUGH FOR HIM TO GET THAT PLACED AND HE IS GOING BACK TO SLEEP. CALL LIGHT IN REACH.
--- NOTE | 2019-03-17 01:14 | NUR ---
PATIENT IN BED RESTING QUIETLY WITH HIS CPAP ON. CALL LIGHT IN REACH.
--- NOTE | 2019-03-17 04:08 | NUR ---
JUST GOT PATIENT SOME NEW ICE WATER AND HE IS UP TO THE BATHROOM.
--- NOTE | 2019-03-17 05:26 | NUR ---
PATIENT IS SALINE LOCKED. NO C/O PAIN USING THE BATHROOM INDEPENDENTLY. HAS SLEPT MOST THE NIGHT WITH HIS CPAP ON AND HAS REALLY NOT HAD ANY NEEDS OTHER THAN FRESH WATER. RESTING RIGHT NOW WITH EYES CLOSED ON HIS CPAP. CALL LIGHT IN REACH.
--- NOTE | 2019-03-17 07:34 | NUR ---
BEDSIDE REPORT, PT RESTING IN BED ALERT AND ORIENTED. NO REQUESTS AT THIS TIME. BREAKFAST IS ORDERED.
--- NOTE | 2019-03-17 08:06 | EKG ---
[facility] [address] [facility] [place], [place] [address] Signed Normal sinus rhythm Normal ECG No previous ECGs available Confirmed by THEODORE SERRANO MD ([id number]) on 03/17/2019 8:06:21 AM Electronically Signed By: THEODORE SERRANO MD 03/17/19 0806 PATIENT NAME: SERGEI ESPANA Electrocardiogram DATE OF : 41 PHYSICIAN: THEODORE SERRANO MD REPORT #: [id number] REPORT IS CONFIDENTIAL AND NOT TO BE RELEASED WITHOUT AUTHORIZATION
[2019-03-17] MEDS ORDERED: CARVEDILOL6.25 MG PO (10:26)
--- NOTE | 2019-03-17 11:42 | NUR ---
I.V. SITE REMOVED WNL TIP INTACT. DISCHARGE EDUCATION GIVEN WITH INSTRUCTIONS ON RENAL DIET AND PRINT OUT, FOLLOW UP APPOINTMENT MADE FOR March AT 2:00PM WITH . MEDICATION INSTRUCTIONS GIVEN WITH NEXT DOSE LAST DOSE AND SIDE EFFECTS DISCUSSED BY RN AND HAYDEN PHARMACIST. DISCUSSED SIGNS AND SYMPTOMS TO MONITOR FOR AND SEEK MEDICAL ATTENTION RIGHT AWAY FOR. PT ABLE TO VERBALIZE BACK INSTRUCTIONS, PT REFUSED NEED FOR ASSISTANCE IN ROOM TO DRESS AT THIS TIME. NO OTHER REQUESTS OR CONCERNS AT THIS TIME. PT VERBALIZED WANTING TO STAY FOR LUNCH IT IS ALREADY ORDERED. RN SAID WE ARE HAPPY TO HAVE YOU STAY FOR LUNCH.
== END 2019-03-17 12:00 | disposition home or self-care (01) ==
LOC: ED 14:52 → MS 14:54
PROVIDERS: ADMIT Internal Medicine
DX: N17.9 Acute kidney failure, unspecified (principal); R00.1 Bradycardia, unspecified; G47.30 Sleep apnea, unspecified; E11.9 Type 2 diabetes mellitus without complications; I10 Essential (primary) hypertension; E78.5 Hyperlipidemia, unspecified; M10.9 Gout, unspecified; Z79.82 Long term (current) use of aspirin; Z79.899 Other long term (current) drug therapy; Z88.0 Allergy status to penicillin; Z88.8 Allergy status to other drugs, medicaments and biological substances
CPT/HCPCS: 36415; 80048; 80053; 81001; 83735; 85025; 93005; 93010; 96360; 99285-25; G0378; J7030; J7040

== ENCOUNTER → 2019-10-22 | Emergency (ER) | payer OTHER ==
[~2019-10-22] VITALS: Ht 190.5 cm; Wt 130.4 kg
[~2019-10-22] MED LIST changes: +ACETAMINOPHEN500 MG PO; +ALLOPURINOL300 MG PO; +CARVEDILOL25 MG PO; +CARVEDILOL6.25 MG PO; +FLONASE ALLERG9.9 ML NAS; +GLIMEPIRIDE1 MG PO; +MELATONIN5 M2 PO; +MOMETASONE FURO15 GM TOP; +VICTOZA 3-0.6 MG/0.1 SUB-Q; +VITAMIN B122500 MCG PO; +VITAMIN D35000 UNI1 PO
--- OUTSIDE RECORDS SUMMARY | ~2019-10-22 | XMS | Encounter Summary ---
Demographics + + + | Address | [address] | | | [place] [address] | + + + | Home Phone | | + + + | Preferred Language | Unknown | + + + | Marital Status | Single | + + + | Advent Affiliation | Unknown | + + + | Race | Unknown | + + + | Ethnic Group | Unknown | + + + Author + + + | Author | [facility] | | | and [place] | + + + | Organization | [facility] | | | and [place] | + + + | Address | Unknown | + + + | Phone | Unavailable | + + + Support + + + + + | Name | Relationship | Address | Phone | + + + + + | Hi Dawn | ECON | [place] | | | | | [address] | | + + + + + | Atif Delgadillo | ECON | [place], [place] | | | | | [address] | | + + + + + | Caleb Dawn | ECON | Unknown | | + + + + + Care Team Providers + +------+ + | Care Spring Inspector Name | Role | Phone | + +------+ + PCP | Unavailable | + +------+ + Encounter Details +--------+ + + + + | Date | Type | Department | Care Team | Description | +--------+ + + + + | 01/29/ | Hospital | [facility] | | | | 2006 | Encounter | MED CTR XRAY [address] | | | | | | [address] | | | | | | [place] [address] | | | | | | [phone] | | | +--------+ + + + + Social History + +-------+ +--------+------+ | Tobacco Use | Types | Packs/Day | Years | Date | | | | | Used | | + +-------+ +--------+------+ | Never Assessed | | | | | + +-------+ +--------+------+ + + + | Sex Assigned at | Date Recorded | | | | + + + | Not on file | | + + + + + + + | Job Start Date | Occupation | Industry | + + + + | Not on file | Not on file | Not on file | + + + + + + + + | Travel History | Travel Start | Travel End | + + + + + + | No recent travel history available. | + + documented as of this encounter Plan of Treatment +--------+ + + + + | Date | Type | Specialty | Care Team | Description | +--------+ + + + + | 03/16/ | Off-Site | Nephrology | Freddy Sanchez | | 2019 | Visit | | DO Anival Bh[address] [place] | | | | | | [place] | | | | | | [place] | | | | | | [phone] | | | | | | | | +--------+ + + + + | 05/20/ | Office | Cardiology | Yumiko Del Valle, | | | 2019 | Visit | | MD Lupe TYLER | | | | | | [place] | | | | | | [phone] | | | | | | | | +--------+ + + + + documented as of this encounter Visit Diagnoses Not on filedocumented in this encounter"
--- OUTSIDE RECORDS SUMMARY | ~2019-10-22 | XMS | Encounter Summary ---
Demographics + + + | Address | [address] | | | [place] [address] | + + + | Home Phone | | + + + | Preferred Language | Unknown | + + + | Marital Status | Single | + + + | Christian Affiliation | Unknown | + + + | Race | Unknown | + + + | Ethnic Group | Unknown | + + + Author + + + | Author | [facility] | | | and [place] | + + + | Organization | [facility] | | | and [place] | + + + | Address | Unknown | + + + | Phone | Unavailable | + + + Support + + + + + | Name | Relationship | Address | Phone | + + + + + | Hi Dawn | ECON | [place] | | | | | [address] | | + + + + + | Atif Delgadillo | ECON | [place] | | | | | [address] | | + + + + + | Caleb Dawn | ECON | Unknown | | + + + + + Care Team Providers + +------+ + | Care Respiratory Therapist Name | Role | Phone | + +------+ + | Anoop Moyer MD | PCP | | + +------+ + Encounter Details +--------+ + + + + | Date | Type | Department | Care Team | Description | +--------+ + + + + | 05/11/ | Orders Only | [facility] | Anoop Moyer | | | 2017 | | CONVERSION 888 | MD [address] | | | | | [address] | [address] | | | | | [facility] [place] | [place] [address] | | | | | [address] | [phone] | | | | | [phone] | | | +--------+ + + + [...] | Nephrology | Freddy Sanchez | | | 2020 | Visit | | M, [address] | | | | | | [place] [place] [address] | | | | | | [place] | | | | | | [address] | | | | | | | | +--------+ + + + + | 05/20/ | Office | Cardiology | Yumiko Del Valle, | | | 2019 | Visit | | MD [address] | | | | | | [place] | | | | | | [address] | | | | | | | | +--------+ + + + + documented as of this encounter Procedures + +--------+ + + + | Procedure Name | Priori | Date/Time | Associated Diagnosis | Comments | | | ty | | | | + +--------+ + + + | ECHO INTERPRETATION | Routin | 05/11/2018 | | Results for this | | OF OUTSIDE FILMS | e | 11:53 AM | | procedure are in the | | | | PDT | | results section. | + +--------+ + + + documented in this encounter Results ECHO Interpretation of Outside Films (05/11/2018 11:53 AM PDT) + + | Specimen | + + | | + + + + + | Impressions | Performed At | + + + | 1. The left ventricle is normal in size and systolic function EF | | | 60-65%. 2. The right ventricle is mildly enlarged with normal | | | systolic function. 3. Mild tricuspid regurgitation and no pulmonary | | | hypertension. 4. There is no pericardial effusion. | | + + + + + + | Narrative | Performed At | + + + | Patient Name: Steve Tanner Date of : 1945 | | | Performing Physician: Yumiko Del Valle | | | | | | INDICATIONS hx of heart failure CONCLUSIONS | | | 1. The left ventricle is normal in size and systolic | | | function EF 60-65%. 2. The right ventricle is mildly enlarged with | | | normal systolic function. 3. Mild tricuspid regurgitation and no | | | pulmonary hypertension. 4. There is no pericardial effusion. | | | FINDINGS -------- ECG rhythm: Sinus rhythm. Study: A 2-dimensional | | | transthoracic echocardiogram with m-mode, spectral and color flow | | | Doppler was perfomed. Study: This was a technically adequate study. | | | Left Ventricle: Overall left ventricular systolic function is normal | | | with, an EF between 60 - 65 %. Left Ventricle: The left ventricle | | | cavity size is normal. Left Ventricle: There is mild concentric left | | | ventricular hypertrophy. Left Ventricle: The diastolic filling | | | pattern is normal the age of the patient. Right Ventricle: The right | | | ventricle is mildly enlarged measuring between 3.4 - 3.7 cm. Right | | | Ventricle: The right ventricular systolic function is normal. Left | | | Atrium: The left atrium is mildly enlarged. Right Atrium: The right | | | atrium is mildly enlarged. Aortic Valve: The aortic valve is mildly | | | calcified. Aortic Valve: Trace amount of aortic regurgitation. | | | Aortic Valve: There is no evidence of aortic stenosis. Aortic Valve: | | | The aortic valve appears to be trileaflet. Mitral Valve: The mitral | | | valve is normal. Mitral Valve: There is trace mitral regurgitation. | | | Tricuspid Valve: The tricuspid valve appears structurally normal. | | | Tricuspid Valve: Mild tricuspid regurgitation present. Tricuspid | | | Valve: There is no evidence of pulmonary hypertension. Tricuspid | | | Valve: The right ventricular systolic pressure (pulmonary artery | | | systolic pressure), as measured by Doppler, is 32.99mmHg. Pulmonic | | | Valve: The pulmonic valve was not well visualized. Pulmonic Valve: | | | Trace pulmonic regurgitation. Pericardium: There is no pericardial | | | effusion. Pericardium: No pleural effusion seen. IVC/Hepatic Veins: | | | The inferior vena cava is normal in size and collapses > 50 % with | | | sniff, indicating normal central venous pressures. Aorta: The aortic | | | root, ascending aorta and aortic arch are normal. Mass: No mass | | | visualized Thrombus: No clot visualized Thrombus: No vegetation | | | visualized. Septum: No ASD observed. Septum: No VSD observed. | | | MEASUREMENTS Ao asc: 3.91 cm Ao sinus: 3.44 cm | | | Ao st junct: 3.26 cm IVC: 1.65 cm EDV(Teich): 142.44 ml | | | IVSd: 1.10 cm LVIDd: 5.41 cm LVPWd: 1.10 cm LVOT Area: | | | 4.72 cm2 LVOT Diam: 2.45 cm %FS: 40.73 % EF(Teich): 70.99 | | | % ESV(Teich): 41.32 ml LVIDs: 3.21 cm SV(Teich): 101.11 ml | | | RVIDd: 3.27 cm LVEF MOD A2C: 59.52 % SV MOD A2C: 73.61 ml | | | LVEF MOD A4C: 58.38 % SV MOD A4C: 89.02 ml EF Biplane: | | | 60.52 % LVEDV MOD BP: 144.92 ml LVESV MOD BP: 57.21 ml LVEDV | | | MOD A2C: 123.67 ml LVLd A2C: 8.51 cm LVEDV MOD A4C: 152.46 | | | ml LVLd A4C: 9.49 cm LVESV MOD A2C: 50.05 ml LVLs A2C: | | | 6.86 cm LVESV MOD A4C: 63.44 ml LVLs A4C: 7.10 cm LAESV(A-L): | | | 74.88 ml LAESV Index (A-L): 29.02 ml/m2 LAAs A2C: 19.45 | | | cm2 LAESV A-L A2C: 61.97 ml LALs A2C: 5.18 cm LAAs A4C: | | | 23.50 cm2 LAESV A-L A4C: 88.44 ml LALs A4C: 5.30 cm RAAs: | | | 20.57 cm2 RAESV A-L: 67.40 ml RAESV MOD: 63.69 ml RALs: | | | 5.32 cm TAPSE: 2.43 cm AV maxP.21 mmHg AV meanP.78 | | | mmHg AV Vmax: 1.24 m/s AV Vmean: 0.77 m/s AV VTI: 26.17 | | | cm HALI Vmax: 3.51 cm2 HALI (VTI): 4.30 cm2 AVAI (Vmax): | | | 0.00 cm2/m2 AVAI (VTI): 0.00 cm2/m2 LVOT maxP.42 mmHg | | | LVOT meanP.71 mmHg LVSI Dopp: 43.63 ml/m2 LVSV Dopp: | | | 112.56 ml LVOT Vmax: 0.92 m/s LVOT Vmean: 0.60 m/s LVOT VTI: | | | 23.80 cm MV A Jordon: 0.82 m/s MV Dec [place]: 4.31 m/s2 MV | | | DecT: 185.71 ms MV E Jordon: 0.80 m/s MV E/A Ratio: 0.96 MV | | | PHT: 53.85 ms MVA By PHT: 4.08 cm2 Septal e': 0.05 m/s | | | Septal E/e': 15.59 Lateral e': 0.08 m/s Lateral E/e': 9.90 | | | PV maxP.24 mmHg PV Vmax: 0.55 m/s RAP: 5 mmHg RVSP: | | | 32.98 mmHg TR maxP.98 mmHg TR Vmax: 2.64 m/s | | | Office Support Associate: TATUM Authenticated by: Yumiko [facility] Report | | | Date/Time: 05-12-2018 7:33:45 | | + + + + + | Procedure Note | + + | Sai Ness Conversion - 07/11/2019 5:11 PM PDT Patient Name: Lowell Tanner | | of : 1945 Performing Physician: Yumiko | | Eligio INDICATIONS------ | | -----hx of heart failure CONCLUSIONS 1. The left ventricle is normal in size | | and systolic function EF 60-65%.2. The right ventricle is mildly enlarged with normal | | systolic function.3. Mild tricuspid regurgitation and no pulmonary hypertension.4. There | | is no pericardial effusion. FINDINGS--------ECG rhythm: Sinus rhythm.Study: A | | 2-dimensional transthoracic echocardiogram with m-mode, spectral and color flow Doppler | | was perfomed.Study: This was a technically adequate study.Left Ventricle: Overall left | | ventricular systolic function is normal with, an EF between 60 - 65 %.Left Ventricle: | | The left ventricle cavity size is normal.Left Ventricle: There is mild concentric left | | ventricular hypertrophy.Left Ventricle: The diastolic filling pattern is normal the age | | of the patient.Right Ventricle: The right ventricle is mildly enlarged measuring between | | 3.4 - 3.7 cm.Right Ventricle: The right ventricular systolic function is normal.Left | | Atrium: The left atrium is mildly enlarged.Right Atrium: The right atrium is mildly | | enlarged.Aortic Valve: The aortic valve is mildly calcified.Aortic Valve: Trace amount | | of aortic regurgitation.Aortic Valve: There is no evidence of aortic stenosis.Aortic | | Valve: The aortic valve appears to be trileaflet.Mitral Valve: The mitral valve is | | normal.Mitral Valve: There is trace mitral regurgitation.Tricuspid Valve: The tricuspid | | valve appears structurally normal.Tricuspid Valve: Mild tricuspid regurgitation | | present.Tricuspid Valve: There is no evidence of pulmonary hypertension.Tricuspid Valve: | | The right ventricular systolic pressure (pulmonary artery systolic pressure), as | | measured by Doppler, is 32.99mmHg.Pulmonic Valve: The pulmonic valve was not well | | visualized.Pulmonic Valve: Trace pulmonic regurgitation.Pericardium: There is no | | pericardial effusion.Pericardium: No pleural effusion seen.IVC/Hepatic Veins: The | | inferior vena cava is normal in size and collapses > 50 % with sniff, indicating normal | | central venous pressures.Aorta: The aortic root, ascending aorta and aortic arch are | | normal.Mass: No mass visualizedThrombus: No clot visualizedThrombus: No vegetation | | visualized.Septum: No ASD observed.Septum: No VSD observed. MEASUREMENTS Ao | | asc: 3.91 cmAo sinus: 3.[address] junct: 3.26 cmIVC: 1.65 cmEDV(Teich): | | 142.44 mlIVSd: 1.10 cmLVIDd: 5.41 cmLVPWd: 1.10 cmLVOT Area: 4.72 [id number] Diam: | | 2.45 cm%FS: 40.73 %EF(Teich): 70.99 %ESV(Teich): 41.32 mlLVIDs: 3.21 | | cmSV(Teich): 101.11 mlRVIDd: 3.27 cmLVEF MOD A2C: 59.52 %SV MOD A2C: 73.61 | | mlLVEF MOD A4C: 58.38 %SV MOD A4C: 89.02 mlEF Biplane: 60.52 %LVEDV MOD BP: | | 144.92 mlLVESV MOD BP: 57.21 mlLVEDV MOD A2C: 123.67 mlLVLd A2C: 8.51 cmLVEDV MOD | | A4C: 152.46 mlLVLd A4C: 9.49 cmLVESV MOD A2C: 50.05 mlLVLs A2C: 6.86 cmLVESV MOD | | A4C: 63.44 mlLVLs A4C: 7.10 cmLAESV(A-L): 74.88 mlLAESV Index (A-L): 29.02 | | ml/m2LAAs A2C: 19.45 [id number] A-L A2C: 61.97 mlLALs A2C: 5.18 cmLAAs A4C: 23.50 | | [id number] A-L A4C: 88.44 mlLALs A4C: 5.30 cmRAAs: 20.57 [id number] A-L: 67.40 | | mlRAESV MOD: 63.69 mlRALs: 5.32 cmTAPSE: 2.43 cmAV maxP.21 mmHgAV meanPG: | | 2.78 mmHgAV Vmax: 1.24 m/Vernon Vmean: 0.77 m/Vernon VTI: 26.17 cmAVA Vmax: 3.51 | | cm2AVA (VTI): 4.30 [id number] (Vmax): 0.00 cm2/m2AVAI (VTI): 0.00 cm2/m2LVOT maxPG: | | 3.42 mmHgLVOT meanP.71 mmHgLVSI Dopp: 43.63 ml/m2LVSV Dopp: 112.56 mlLVOT | | Vmax: 0.92 m/sLVOT Vmean: 0.60 m/sLVOT VTI: 23.80 cmMV A Jordon: 0.82 m/sMV Dec | | [place]: 4.31 m/s2MV DecT: 185.71 msMV E Jordon: 0.80 m/sMV E/A Ratio: 0.96MV PHT: | | 53.85 msMVA By PHT: 4.08 im8Vxlmma e': 0.05 m/sSeptal E/e': 15.59Lateral e': | | 0.08 m/sLateral E/e': 9.90PV maxP.24 mmHgPV Vmax: 0.55 m/sRAP: 5 mmHgRVSP: | | 32.98 mmHgTR maxP.98 mmHgTR Vmax: 2.64 m/s Office Support Associate: DBSAuthenticated by: | | [facility] Date/Time: 05-12-2018 7:33:45 IMPRESSION: 1. The left ventricle is | | normal in size and systolic function EF 60-65%.2. The right ventricle is mildly | | enlarged with normal systolic function.3. Mild tricuspid regurgitation and no pulmonary | | hypertension.4. There is no pericardial effusion. | |Septum: No VSD observed. | | | |MEASUREMENTS | | | |Ao asc: 3.91 cm | |Ao sinus: 3.44 cm | |Ao st junct: 3.26 cm | |IVC: 1.65 cm | |EDV(Teich): 142.44 ml | |IVSd: 1.10 cm | |LVIDd: 5.41 cm | |LVPWd: 1.10 cm | |LVOT Area: 4.72 cm2 | |LVOT Diam: 2.45 cm | |%FS: 40.73 % | |EF(Teich): 70.99 % | |ESV(Teich): 41.32 ml | |LVIDs: 3.21 cm | |SV(Teich): 101.11 ml | |RVIDd: 3.27 cm | |LVEF MOD A2C: 59.52 % | |SV MOD A2C: 73.61 ml | |LVEF MOD A4C: 58.38 % | |SV MOD A4C: 89.02 ml | |EF Biplane: 60.52 % | |LVEDV MOD BP: 144.92 ml | |LVESV MOD BP: 57.21 ml | |LVEDV MOD A2C: 123.67 ml | |LVLd A2C: 8.51 cm | |LVEDV MOD A4C: 152.46 ml | |LVLd A4C: 9.49 cm | |LVESV MOD A2C: 50.05 ml | |LVLs A2C: 6.86 cm | |LVESV MOD A4C: 63.44 ml | |LVLs A4C: 7.10 cm | |LAESV(A-L): 74.88 ml | |LAESV Index (A-L): 29.02 ml/m2 | |LAAs A2C: 19.45 cm2 | |LAESV A-L A2C: 61.97 ml | |LALs A2C: 5.18 cm | |LAAs A4C: 23.50 cm2 | |LAESV A-L A4C: 88.44 ml | |LALs A4C: 5.30 cm | |RAAs: 20.57 cm2 | |RAESV A-L: 67.40 ml | |RAESV MOD: 63.69 ml | |RALs: 5.32 cm | |TAPSE: 2.43 cm | |AV maxP.21 mmHg | |AV meanP.78 mmHg | |AV Vmax: 1.24 m/s | |AV Vmean: 0.77 m/s | |AV VTI: 26.17 cm | |HALI Vmax: 3.51 cm2 | |HALI (VTI): 4.30 cm2 | |AVAI (Vmax): 0.00 cm2/m2 | |AVAI (VTI): 0.00 cm2/m2 | |LVOT maxP.42 mmHg | |LVOT meanP.71 mmHg | |LVSI Dopp: 43.63 ml/m2 | |LVSV Dopp: 112.56 ml | |LVOT Vmax: 0.92 m/s | |LVOT Vmean: 0.60 m/s | |LVOT VTI: 23.80 cm | |MV A Jordon: 0.82 m/s | |MV Dec [place]: 4.31 m/s2 | |MV DecT: 185.71 ms | |MV E Jordon: 0.80 m/s | |MV E/A Ratio: 0.96 | |MV PHT: 53.85 ms | |MVA By PHT: 4.08 cm2 | |Septal e': 0.05 m/s | |Septal E/e': 15.59 | |Lateral e': 0.08 m/s | |Lateral E/e': 9.90 | |PV maxP.24 mmHg | |PV Vmax: 0.55 m/s | |RAP: 5 mmHg | |RVSP: 32.98 mmHg | |TR maxP.98 mmHg | |TR Vmax: 2.64 m/s | | | |Office Support Associate: DBS | |Authenticated by: Yumiko Del Valle | |Report Date/Time: 05-12-2018 7:33:45 | | | |IMPRESSION: | |1. The left ventricle is normal in size and systolic function EF 60-65%. | |2. The right ventricle is mildly enlarged with normal systolic function. | |3. Mild tricuspid regurgitation and no pulmonary hypertension. | |4. There is no pericardial effusion. | + + documented in this encounter Visit Diagnoses Not on filedocumented in this encounter"
--- OUTSIDE RECORDS SUMMARY | ~2019-10-22 | XMS | Encounter Summary ---
Demographics + + + | Address | [address] | | | [place] [address] | + + + | Home Phone | | + + + | Preferred Language | Unknown | + + + | Marital Status | Single | + + + | Yazdanism Affiliation | Unknown | + + + [...] [place] | | | | | [address] | | + + + + + | Atif Delgadillo | ECON | [place], [place] | | | | | [address] | | + + + + + | Caleb Dawn | ECON | Unknown | | + + + + + Care Team Providers + +------+ + | Care Slip Cover Operator Name | Role | Phone | + +------+ + PCP | Unavailable | + +------+ + Encounter Details +--------+ + + + + | Date | Type | Department | Care Team | Description | +--------+ + + + + | 09/30/ | Abstract | [facility] | Freddy Sanchez | | | 2016 | | NEPHROLOGY [address] | M, DO [address] | | | | | [address] | [place] | | | | | [place], [place] | [place] | | | | | [address] | [address] | | | | | [phone] | | | +--------+ + + + [...] Freddy Sanchez | | | 2019 | Visit | | M, DO [address] | | | | | | [place], [address] | | | | | | [place] | | | | | | [address] | | | | | | | | +--------+ + + + + | 05/20/ | Office | Cardiology | uYmiko Dle Valle, | | | 2019 | Visit | | [address] | | | | | | [place], [place] | | | | | | [address] | | | | | | | | +--------+ + + + + documented as of this encounter Procedures + +--------+ + + + | Procedure Name | Priori | Date/Time | Associated Diagnosis | Comments | | | ty | | | | + +--------+ + + + | HEMOGLOBIN A1C | Routin | 09/29/2016 | | Results for this | | | e | | | procedure are in the | | | | | | results section. | + +--------+ + + + documented in this encounter Results Hemoglobin A1C (09/29/2016) + +-------+ + + + | Component [...] Agency Comment | + + | [facility] | + + + +---------+ + + | Performing | Address | City/State/Zipcode | Phone Number | | Organization | | | | + +---------+ + + | EXTERNAL LAB | | | | + +---------+ + + documented in this encounter Visit Diagnoses Not on filedocumented in this encounter"
--- OUTSIDE RECORDS SUMMARY | ~2019-10-22 | XMS | Encounter Summary ---
Demographics + + + | Address | [address] | | | [place] [address] | + + + | Home Phone | | + + + | Preferred Language | Unknown | + + + | Marital Status | Single | + + + | Buddhism Affiliation | Unknown | + + + | Race | Unknown | + + + | Ethnic Group | Unknown | + + + Author + + + | Author | [facility] | | | and [place] | + + + | Organization | [facility] | | | and [place] | + + + | Address | Unknown | + + + | Phone | Unavailable | + + + Support + + + + + | Name | Relationship | Address | Phone | + + + + + | Hi Dawn | ECON | [place] | | | | | [address] | | + + + + + | Atif Delgadillo | ECON | [place], [place] | | | | | [address] | | + + + + + | Caleb Dawn | ECON | Unknown | | + + + + + Care Team Providers + +------+ + | Care Specialty Molder Name | Role | Phone | + +------+ + PCP | Unavailable | + +------+ + Encounter Details +--------+ + + + + | Date | Type | Department | Care Team | Description | +--------+ + + + + | 10/10/ | Hospital | [facility] | | | | 2005 - | Encounter | MED CTR ICU [address] | | | | | | [place], | | | | 10/11/ | | [place] [address] | | | | 2005 | | [phone] | | | +--------+ + + + [...] | 2019 | Visit | | DO Olayinka [address] [place] [address] | | | | | | [place] | | | | | | [place] | | | | | | [phone] | | | | | | | | +--------+ + + + + | 05/20/ | Office | Cardiology | Yumiko Del Valle, | | | 2019 | Visit | | MD Lupe TYLER | | | | | | [place] | | | | | | [phone] | | | | | | | | +--------+ + + + + documented as of this encounter Visit Diagnoses Not on filedocumented in this encounter"
--- OUTSIDE RECORDS SUMMARY | ~2019-10-22 | XMS | Encounter Summary ---
Demographics + + + | Address | [address] | | | [place] [address] | + + + | Home Phone | | + + + | Preferred Language | Unknown | + + + | Marital Status | Single | + + + | Sabianism Affiliation | Unknown | + + + | Race | Unknown | + + + | Ethnic Group | Unknown | + + + Author + + + | Author | [facility] | | | and [place] | + + + | Organization | [facility] | | | and [place] | + + + | Address | Unknown | + + + | Phone | Unavailable | + + + Support + + + + + | Name | Relationship | Address | Phone | + + + + + | Hi Dawn | ECON | [place] | | | | | [address] | | + + + + + | Atif Delgadillo | ECON | [place], [place] | | | | | [address] | | + + + + + | Caleb Dawn | ECON | Unknown | | + + + + + Care Team Providers + +------+ + | Care Desk Officer Name | Role | Phone | + +------+ + PCP | Unavailable | + +------+ + Encounter Details +--------+ + + + + | Date | Type | Department | Care Team | Description | +--------+ + + + + | 03/08/ | Abstract | [facility] | Freddy Sanchez | | | 2017 | | NEPHROLOGY [address] | M, DO [address] | | | | | [address] | [address] | | | | | [place], [place] | [place] | | | | | [address] | [address] | | | | | [phone] | | | +--------+ + + + [...] documented as of this encounter Progress Notes Tamara Alves - 03/08/2017 10:00 AM PDTOutside record: Letter from Quique Garza MD, s: 02/20/17. Sent to scan. Tdocumented in this encounter Plan of Treatment +--------+ + + + + | Date | Type | Specialty | Care Team | Description | +--------+ + + + + | 04/27/ | Off-Site | Nephrology | Freddy Sanchez | | | 2019 | Visit | | DO [facility] [facility] | | | | | | [address] | | | | | | [place] | | | | | | [address] | | | | | | | | +--------+ + + + + | 05/20/ | Office | Cardiology | Yumiko Del Valle, | | | 2019 | Visit | | MD Lupe TYLER | | | | | | [place] | | | | | | [phone] | | | | | | | | +--------+ + + + + documented as of this encounter Visit Diagnoses Not on filedocumented in this encounter"
--- OUTSIDE RECORDS SUMMARY | ~2019-10-22 | XMS | Encounter Summary ---
Demographics + + + | Address | [address] | | | [place] [address] | + + + | Home Phone | | + + + | Preferred Language | Unknown | + + + | Marital Status | Single | + + + | Lutheran Affiliation | Unknown | + + + | Race | Unknown | + + + | Ethnic Group | Unknown | + + + Author + + + | Author | [facility] | | | and [place] | + + + | Organization | [facility] | | | and [place] | + + + | Address | Unknown | + + + | Phone | Unavailable | + + + Support + + + + + | Name | Relationship | Address | Phone | + + + + + | Hi Dawn | ECON | [place] | | | | | [phone] | | + + + + + | Atif Delgadillo | ECON | [place], [place] | | | | | [address] | | + + + + + | Caleb Dawn | ECON | Unknown | | + + + + + Care Team Providers + +------+ + | Care Apartment Coordinator Name | Role | Phone | + +------+ + PCP | Unavailable | + +------+ + Reason for Visit + + + | Reason | Comments | + + + | Follow-up | | + + + | Congestive Heart | | | Failure | | + + + | Hypertension | | + + + Encounter Details +--------+---------+ + + + | Date | Type | Department | Care Team | Description | +--------+---------+ + + + | 05/05/ | Office | [facility] | Coleman, | Chest pain (Primary | | 2013 | Visit | CARDIOLOGY [address] | [place] [address] | Dx); Hypertension; | | | | [place], | [place], | Hyperlipidemia | | | | [place] [address] | [place] [address] | | | | | [phone] | [phone] | | | | | | | | +--------+---------+ + + + Social History + +-------+ [...] + + + | Blood Pressure | 132/78 | 05/05/2014 8:36 AM | | | | | PDT | | + + + + + | Pulse | 72 | 05/05/2014 8:36 AM | | | | | PDT | | + + + + + | Temperature | - | - | | + + + + + | Respiratory Rate | 22 | 05/05/2014 8:36 AM | | | | | PDT | | + + + + + | Oxygen Saturation | - | - | | + + + + + | Inhaled Oxygen | - | - | | | Concentration | | | | + + + + + | Weight | 128.8 kg (284 lb) | 05/05/2014 8:36 AM | | | | | PDT | | + + + + + | Height | 190.5 cm (6' 3") | 05/05/2014 8:36 AM | | | | | PDT | | + + + + + | Body Mass Index | 35.5 | 05/05/2014 8:36 AM | | | | | PDT | | + + + + + documented in this encounter Patient Instructions Patient Instructions Selene Betancourt ARNP - 05/05/2014 8:59 AM PDT1. Decrease Losartan to 25 mg once a day in the evening (the previous dose was making your blood pressure too low) 2. Take Furosemide 40 mg in the morning (7-8 am) and in the afternoon no later athn 2pm 3. check blood pressure and pulse twice daily for two weeks and return the log to our offic e. 4. Follow up in 4 months A M PDT documented in this encounter Progress Notes Selene Betancourt ARNP - 05/05/2014 8:38 AM PDTFormatting of this note might be different f rom the original. PATIENT NAME: SERGEI TANNER : 1945: AGE: 69 y.o. PRIMARY CARE: Quique Garza MD OUTPATIENT FOLLOW UP VISIT Date of Service: 05/05/2014 HISTORY OF PRESENT ILLNESS: SERGEI TANNER is a 69 y.o. 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 He is being seen today for follow up congestive hear t failure and hypertension. He was last seen 01/23/2014 at which time carvedilol was increased to 25 mg twice a day he was to return if blood pressure log in 2 weeks with a follow up appointment in 3 months. Si nce that time, patient was seen by his PCP who increased his losartan 50 mg once a day and s ion then patient has been having episodes of lightheadedness and dizziness. He brings his blood pressure log that shows his blood pressure has been as low as 70/45 and 82/50 that rel ates to patient having symptoms of lightheadedness and dizziness. Otherwise, patient denies any chest pain, chest pressure, shortness of breath at rest or on exertion or palpitations. Patient states that his leg swelling has dramatically improved as well. Patient's remains physically active and he walks 30-45 minutes every day at least 5 days a week. He is able to exercise without having any increase in shortness of breath. He continues to sleep at [facility] with one pillow and using his CPAP, however, patient does tell me today that he gets up about every 2 hours to urinate at night. When asked about his furosemide medication times p atient doesn't he takes his first dose at 8:00 in the morning and his second dose of furosem noah are around 8:00 at night. MEDICAL, SURGICAL, AND PERSONAL HISTORY Past Medical, Surgical, Family, and Social History are reviewed in EPIC. CURRENT PROBLEMS Patient Active Problem List Diagnosis Type II or unspecified type diabetes mellitus with renal manifestations, not stated as uncontrolled Unspecified hypertensive kidney disease with chronic kidney disease stage I through sta ge IV, or unspecified Chronic kidney disease, stage III (moderate) Other and unspecified hyperlipidemia Acute GI bleeding Gastric ulcer with hemorrhage Light headedness Hypertension Hyperlipidemia ASCVD (arteriosclerotic cardiovascular disease) Hypotension Chest pain CURRENT MEDICATIONS Outpatient Encounter Prescriptions as of 05/05/2014 Medication Sig Dispense Refill allopurinol (ZYLOPRIM) 300 mg tablet Take 300 mg by mouth Daily. calcitRIOL (ROCALTROL) 0.5 MCG capsule Take 0.5 mcg by mouth Daily. carvedilol (COREG) 25 mg tablet Take 1 tablet by mouth 2 times daily (with breakfast & dinner). 60 tablet 3 darbepoetin easton (ARANESP) 60 mcg/mL injection Inject 60 mcg under the skin Every 30 da ys. furosemide (LASIX) 40 mg tablet Take 1 tablet by mouth 2 times daily. 60 tablet 6 HYDROcodone-acetaminophen (NORCO) 10-325 mg per tablet Take 1 tablet by mouth every 6 h ours as needed. [DISCONTINUED] Linagliptin (TRADJENTA) 5 MG TABS Take 5 mg by mouth Daily. loratadine-pseudoePHEDrine (CLARITIN-D 12 HOUR) 5-120 mg per tablet Take 1 tablet by mo ut 2 times daily. losartan (COZAAR) 50 mg tablet Take 50 mg by mouth Daily. mometasone (ELOCON) 0.1 % cream Apply topically Daily. niacin 500 mg tablet Take 500 mg by mouth 2 times daily. nitroglycerin (NITROSTAT) 0.[address] 0.4 mg under the tongue every 5 minute s as needed. omeprazole (PRILOSEC) 40 MG capsule Take 1 capsule by mouth Daily. 90 capsule 3 sucralfate (CARAFATE) 1 g tablet Take 1 tablet by mouth 4 times daily. 120 tablet 2 terbinafine (LAMISIL) 250 MG tablet Take 250 mg by mouth Daily. ALLERGIES Allergies Allergen Reactions Lisinopril Penicillins Rash ROS Review of Systems Respiratory: Negative for shortness of breath. Cardiovascular: Negative for chest pain, palpitations and leg swelling. Genitourinary: Positive for frequency (especially at night he gets up every 2 hours to urin ate). Neurological: Positive for dizziness and weakness. OBJECTIVE: PHYSICAL EXAM BP 132/78 | Pulse 72 | Resp 22 | Ht 1.905 m (6' 3") | Wt 128.822 kg (284 lb) | BMI 35.50 kg /m2 Physical Exam Constitutional: He is oriented to person, place, and time. He appears well-developed and we ll-nourished. Elderly adult male in no acute distress Neck: Normal carotid pulses and no JVD present. Carotid bruit is not present. Cardiovascular: Normal rate, regular rhythm, S1 normal, S2 normal and normal heart sounds. PMI is not displaced. Exam reveals no gallop and no friction rub. No murmur heard. Pulses: Carotid pulses are 2+ on the right side, and 2+ on the left side. Posterior tibial pulses are 1+ on the right side, and 1+ on the left side. Pulmonary/Chest: Effort normal and breath sounds normal. No accessory muscle usage. No resp iratory distress. He has no decreased breath sounds. He has no wheezes. He has no rhonchi. H e has no rales. Abdominal: Soft. Normal appearance, normal aorta and bowel sounds are normal. He exhibits n o abdominal bruit and no pulsatile midline mass. There is no hepatosplenomegaly. There is no tenderness. Musculoskeletal: He exhibits no edema. Neurological: He is alert and oriented to person, place, and time. Coordination normal. Skin: Skin is warm, dry and intact. No cyanosis. Nails show no clubbing. Psychiatric: He has a normal mood and affect. His mood appears not anxious. He does not exh ibit a depressed mood. ECG: Not done this visit. LAB RESULTS: LIPID Lab Results Component Value Date LDLEX 80 02/12/2014 HDLEX 30.4* 02/12/2014 TRIGEX 253* 02/12/2014 CHOLEX 161 02/12/2014 CHEMISTRY Lab Results Component Value Date GLU 164 02/12/2014 NA 138 02/12/2014 K 3.9 02/12/2014 CL 102 02/12/2014 CO2 30 02/12/2014 CALCIUM 9.5 02/12/2014 ALKPHOS 89 02/12/2014 AST 13 12/13/2013 ASTEX 16 02/12/2014 ALT 16 12/13/2013 ALTEX 20 02/12/2014 BILITOT 0.5 02/12/2014 CREA 1.51* 12/17/2013 BUN 34 02/12/2014 EGFR 46* 12/17/2013 EGFREX 49 02/12/2014 CREEX 1.42* 02/12/2014 HEMATOLOGY Lab Results Component Value Date WBC 6.1* 12/17/2013 HGB 7.9* 12/18/2013 HCT 21.1* 12/18/2013 PLT 113* 12/17/2013 HGBEX 13.1* 02/12/2014 I reviewed records from PCP for office visit on 04/25/2014. ASSESSMENT: 1. Congestive heart failure with preserved left ventricular ejection fraction A. Patient was recently admitted to [place] with a profound anemia with hemoglobin of 7 .5 from upper to get bleeding from 12/14-12/19/13. Endoscopy on 12/16/13 shows a gastric erosio n. Patient received 5 units of packed red blood cells. He developed a transient hypotension with negative cardiac enzyme. Furosemide was discontinued because of the hypotension. B. Echocardiogram of 12/15/13 showed LVEF of 75%. C. Normal Regadenoson SPECT MPI of 12/17/13, LVEF by gated SPECT was 61%. According to th e recent echocardiogram and stress test, he has a pretty normal cardiac structure. He shoul d have a good long-term cardiac prognosis. D.Today, patient is doing better from cardiac standpoint. Patient's leg edema has normali zed and disappeared. Patient has no symptoms of angina or dyspnea at rest or on exertion. P atient's only complaint is lightheadedness and dizziness that correlates with patient's epis odes of hypotension after his lisinopril 2.5 mg once a day was changed to losartan 50 mg onc e a day because of a cough developed with lisinopril. Patient continues to be physically ac tive and exercises on a daily basis. He is in a class I of NYHA functional class. There are no signs or symptoms of overt congestive heart failure. On physical examination there are no signs of fluid overload. 2. Hypertension A. Blood pressure from patient's blood pressure log from home shows that his blood pressur e has been low and borderline low. Patient was on lisinopril 2.5 mg once a day and this cau sed a dry cough, patient was switched to losartan 50 mg once a day and since then his blood pressures have been very low as low as 70/45 with symptoms of lightheadedness and dizziness. We will decrease losartan to 25 mg once a day and do another blood pressure log 3. Stage IV chronic kidney disease from diabetic nephropathy. 4. Diabetes 5. Peripheral vascular disease A. Status post left carotid endarterectomy in 2005. 6. Hyperlipidemia A. On niacin, simvastatin and gemfibrozil. 7. Anemia from upper GI bleeding PLAN: 1. Decreased Losartan 25 mg by mouth each bedtime. 2. check blood pressure and pulse twice daily for two weeks and return the log to our offic e. 3. check BMP today 4. Patient has been instructed to take furosemide 40 mg twice a day 6 hours apart from eac h dose to avoid excessive nocturnal urination 5. Follow up appointment in 6 months or sooner if any concerns I, [facility], saw this patient under the direct supervision of Logan Baca MD Portions of this report were transcribed using voice recognition software. Every effort wa s made to ensure accuracy; however, inadvertent computerized chalk extruding machine operator errors may be pre sent. documented in this encounter Plan of Treatment +--------+ + + + + | Date | Type | Specialty | Care Team | Description | +--------+ + + + + | 03/16/ | Off-Site | Nephrology | Freddy Sanchez | | 2019 | Visit | | DO [place] [address] | | | | | | [address] | | | | | | [place] | | | | | | [address] | | | | | | | | +--------+ + + + + | 05/20/ | Office | Cardiology | Yumiko Del Valle, | | | 2019 | Visit | | MD Lupe TYLER | | | | | | [place] | | | | | | [address] | | | | | | | | +--------+ + + + + documented as of this encounter Results Basic Metabolic Panel (05/05/2014 9:34 AM PDT) + + + + + + | Component | Value | Ref Range | Performed | Pathologist | | | | | At | Signature | + + + + + + | Na | 139 | 136 - 149 | [facility] | | | | | mmol/L | [facility] | | | | | | [facility] | | | | | [facility] - | | | | | | LABORATORY | | + + + + + + | K | 4.1 | 3.5 - 5.1 | [facility] | | | | | mmol/L | [facility] | | | | | | [facility] | | | | | | [facility] - | | | | | | LABORATORY | | + + + + + + | Cl | 105 | 98 - 109 mmol/L | [facility] | | | | | | [facility] | | | | | | [facility] | | | | | | [facility] - | | | | | | LABORATORY | | + + + + + + | CO2 | 26 | 24 - 31 mmol/L | [facility] | | | | | | [facility] | | | | | | [facility] | | | | | | [facility] - | | | | | | LABORATORY | | + + + + + + | Anion Gap | 8 | 3 - 16 mmol/L | [facility] | | | | | | [facility] | | [facility] | | | [facility] | | | | | | [facility] - | | | | | | LABORATORY | | + + + + + + | Glucose | 243 (H) | 70 - 109 mg/dL | [facility] | | | | | | [facility] | | | | | | [facility] | | | | | | [facility] - | | | | | | LABORATORY | | + + + + + + | BUN | 50 (H) | 7 - 18 mg/dL | [facility] | | | | | | [facility] | | | | | | [facility] | | | | | | [facility] - | | | | | | LABORATORY | | + + + + + + | Creatinine | 1.60 (H) | 0.60 - 1.30 | [facility] | | | | | mg/dL | [facility] | | | | | | MEDICAL | | | | | | CENTER - | | | | | | LABORATORY | | + + + + + + | eGFR if not | 43 (L)Comment: | >=60 | [facility] | | | | GLOMERULAR FILTRATION | mL/min/1.73m2 | [facility] | | | NIUEAN | RATE,ESTIMATED | | MEDICAL | | | | mL/min/1.21q0Qhej than | | CENTER - | | | | 60 Chronic kidney | | LABORATORY | | | | disease,if found over a | | | | | | 3-month period.Less than | | | | | | 15 Kidney failureFor | | | | | | | | | | | | Americans,multiply the | | | | | | calculated GFR by 1.21. | | | | | | | | | | + + + + + + | Calcium | 9.2 | 8.3 - 10.5 | [facility] | | | | | mg/dL | [facility] | | | | | | MEDICAL | | | | | | CENTER - | | | | | | LABORATORY | | + + + + + + | BUN/Creatin | 31.3 | | [facility] | | | ine Ratio | | | [facility] | | | | | | MEDICAL | | | | | | CENTER - | | | | | | LABORATORY | | + + + + + + + + | Specimen | + + | Blood | + + + + + + + | Performing | Address | City/State/Zipcode | Phone Number | | Organization | | | | + + + + + | [facility] | [address] | [place] | [phone] | | [facility] | | [address] | | | - LABORATORY | | | | + + + + + | [facility] | [address] | [place], [place] | | | [facility] | | [address] | | | - LABORATORY | | | | + + + + + documented in this encounter Visit Diagnoses + + | Diagnosis | + + | Chest pain - Primary Chest pain, unspecified | + + | Hypertension Unspecified essential hypertension | + + | Hyperlipidemia Other and unspecified hyperlipidemia | + + documented in this encounter
--- OUTSIDE RECORDS SUMMARY | ~2019-10-22 | XMS | Encounter Summary ---
Demographics + + + | Address | [address] | | | [place] [address] | + + + | Home Phone | | + + + | Preferred Language | Unknown | + + + | Marital Status | Single | + + + | Gnosticism Affiliation | Unknown | + + + | Race | Unknown | + + + | Ethnic Group | Unknown | + + + Author + + + | Author | [facility] | | | and [place] | + + + | Organization | [facility] | | | and [place] | + + + | Address | Unknown | + + + | Phone | Unavailable | + + + Support + + + + + | Name | Relationship | Address | Phone | + + + + + | Hi Dawn | ECON | [place] | | | | | [address] | | + + + + + | Atif Delgadillo | ECON | [place], [place] | | | | | [address] | | + + + + + | Caleb Dawn | ECON | Unknown | | + + + + + Care Team Providers + +------+ + | Care Program Support Clerk Name | Role | Phone | + +------+ + PCP | Unavailable | + +------+ + Encounter Details +--------+ + + + + | Date | Type | Department | Care Team | Description | +--------+ + + + + | 07/27/ | Abstract | [facility] | Freddy Sanchez | | | 2017 | | NEPHROLOGY [address] | M, DO [address] | | | | | [address] | [place] | | | | | [place], [place] | [place] | | | | | [address] | [address] | | | | | [phone] | | | +--------+ + + + [...] this encounter Progress Notes Tamara Alves - 07/27/2017 8:50 AM PDTOutside records: Progress note from Quique delarosa MD, dos: 07/14/17. Sent to scan. 8 :50 AM PDTdocumented in this encounter Plan of Treatment +--------+ + + + + | Date | Type | Specialty | Care Team | Description | +--------+ + + + + | 04/27/ | Off-Site | Nephrology | Freddy Sanchez | | | 2019 | Visit | | DO [place] [facility] | | | | | | [address] | | | | | | [place] | | | | | | [address] | | | | | | | | +--------+ + + + + | 05/20/ | Office | Cardiology | Yumiko Del Valle, | | | 2019 | Visit | | MD Lupe TYLER | | | | | | [place] | | | | | | [phone] | | | | | | | | +--------+ + + + + documented as of this encounter Visit Diagnoses Not on filedocumented in this encounter"
--- OUTSIDE RECORDS SUMMARY | ~2019-10-22 | XMS | Encounter Summary ---
Demographics + + + | Address | [address] | | | [place] [address] | + + + | Home Phone | | + + + | Preferred Language | Unknown | + + + | Marital Status | Single | + + + | Baptist Affiliation | Unknown | + + + | Race | Unknown | + + + | Ethnic Group | Unknown | + + + Author + + + | Author | [facility] | | | and [place] | + + + | Organization | [facility] | | | and [place] | + + + | Address | Unknown | + + + | Phone | Unavailable | + + + Support + + + + + | Name | Relationship | Address | Phone | + + + + + | Hi Dawn | ECON | [place] | | | | | [address] | | + + + + + | Atif Delgadillo | ECON | [place], [place] | | | | | [address] | | + + + + + | Caleb Dawn | ECON | Unknown | | + + + + + Care Team Providers + +------+ + | Care Vehicle Dynamics Engineer Name | Role | Phone | + +------+ + PCP | Unavailable | + +------+ + Encounter Details +--------+ + + + + | Date | Type | Department | Care Team | Description | +--------+ + + + + | 06/09/ | Abstract | [facility] | Freddy Sanchez | | | 2014 | | NEPHROLOGY [address] | M, DO [address] | | | | | [address] | [place] | | | | | [place], [place] | [place] | | | | | [address] | [address] | | | | | [phone] | | | +--------+ + + + [...] | Visit | | M, DO [address] | | | | | | [place] | | | | | | [place] | | | | | | [address] | | | | | | | | +--------+ + + + + | 05/20/ | Office | Cardiology | Yumiko Del Valle, | | | 2019 | Visit | | [address] | | | | | | [place], [place] | | | | | | [address] | | | | | | | | +--------+ + + + + documented as of this encounter Procedures + +--------+ + + + | Procedure Name | Priori | Date/Time | Associated Diagnosis | Comments | | | ty | | | | + +--------+ + + + | EXTERNAL LAB: FATOUMATA | Routin | 06/08/2015 | | Results for this | | | e | | | procedure are in the | | | | | | results section. | + +--------+ + + + | EXTERNAL LAB: | Routin | 06/08/2015 | | Results for this | | GLUCOSE | e | | | procedure are in the | | | | | | results section. | + +--------+ + + + | EXTERNAL LAB: URIC | Routin | 06/08/2015 | | Results for this | | ACID | e | | | procedure are in the | | | | | | results section. | + +--------+ + + + | EXTERNAL LAB: ALT | Routin | 06/08/2015 | | Results for this | | | e | | | procedure are in the | | | | | | results section. | + +--------+ + + + | EXTERNAL LAB: AST | Routin | 06/08/2015 | | Results for this | | | e | | | procedure are in the | | | | | | results section. | + +--------+ + + + | EXTERNAL LAB: | Routin | 06/08/2015 | | Results for this | | ALKALINE PHOSPHATASE | e | | | procedure are in the | | | | | | results section. | + +--------+ + + + | EXTERNAL LAB: | Routin | 06/08/2015 | | Results for this | | BILIRUBIN, TOTAL | e | | | procedure are in the | | | | | | results section. | + +--------+ + + + | EXTERNAL LAB: | Routin | 06/08/2015 | | Results for this | | ALBUMIN | e | | | procedure are in the | | | | | | results section. | + +--------+ + + + | EXTERNAL LAB: | Routin | 06/08/2015 | | Results for this | | PROTEIN, TOTAL | e | | | procedure are in the | | | | | | results section. | + +--------+ + + + | EXTERNAL LAB: | Routin | 06/08/2015 | | Results for this | | CALCIUM | e | | | procedure are in the | | | | | | results section. | + +--------+ + + + | EXTERNAL LAB: CARBON | Routin | 06/08/2015 | | Results for this | | DIOXIDE | e | | | procedure are in the | | | | | | results section. | + +--------+ + + + | EXTERNAL LAB: | Routin | 06/08/2015 | | Results for this | | CHLORIDE | e | | | procedure are in the | | | | | | results section. | + +--------+ + + + | EXTERNAL LAB: | Routin | 06/08/2015 | | Results for this | | POTASSIUM | e | | | procedure are in the | | | | | | results section. | + +--------+ + + + | EXTERNAL LAB: SODIUM | Routin | 06/08/2015 | | Results for this | | | e | | | procedure are in the | | | | | | results section. | + +--------+ + + + | EXTERNAL LAB: Brielle CAMARENA | Routin | 06/08/2015 | | Results for this | | NATURETIC PEPTIDE | e | | | procedure are in the | | | | | | results section. | + +--------+ + + + | EXTERNAL LAB: ELSA | Routin | 06/08/2015 | | Results for this | | | e | | | procedure are in the | | | | | | results section. | + +--------+ + + + | EXTERNAL LAB: | Routin | 06/08/2015 | | Results for this | | CREATININE | e | | | procedure are in the | | | | | | results section. | + +--------+ + + + documented in this encounter Results External Lab: BUN (06/08/2015) + +--------+ + + + | Component | Value | Ref Range | Performed | Pathologist | | | | | At | Signature | + +--------+ + + + | FATOUMATA, | 58 (A) | 6 - 23 | EXTERNAL [...] + +---------+ + + External Lab: Glucose (06/08/2015) + +---------+ + + + | Component | Value | Ref Range | Performed | Pathologist | | | | | At | Signature | + +---------+ + + + | Glucose, | 173 (A) | 70 - 100 | EXTERNAL [...] | + +---------+ + + External Lab: Uric Acid (06/08/2015) + +-------+ + + + | Component | Value | Ref Range | Performed | Pathologist | | | | | At | Signature | + +-------+ + + + | Uric Acid, | 6.9 | 4.4 - 7.6 | EXTERNAL | | | External | [...] + +---------+ + + External Lab: ALT (06/08/2015) + +-------+ + + + | Component | Value | Ref Range | Performed | Pathologist | | | | | At | Signature | + +-------+ + + + | ALT, | 18 | 7 - 52 | EXTERNAL | [...] | + +---------+ + + External Lab: ORION (06/08/2015) + +-------+ + + + | Component [...] +---------+ + + External Lab: Alkaline Phosphatase (06/08/2015) + +-------+ + + + | Component | Value | Ref Range | Performed | Pathologist | | | | | At | Signature | + +-------+ + + + | ALP, | 59 | 30 - 128 | EXTERNAL | [...] +---------+ + + External Lab: Bilirubin, Total (06/08/2015) + +-------+ + + + | Component | Value | Ref Range | Performed | Pathologist | | | | | At | Signature | + +-------+ + + + | Bilirubin, | 0.6 | 0 - 1.2 | EXTERNAL | [...] + +---------+ + + External Lab: Albumin (06/08/2015) + +-------+ + + + | Component | Value | Ref Range | Performed | Pathologist | | | | | At | Signature | + +-------+ + + + | Albumin, | 4.4 | 3.5 - 5 | EXTERNAL | [...] +---------+ + + External Lab: Protein, Total (06/08/2015) + +-------+ + + + | Component | Value | Ref Range | Performed | Pathologist | | | | | At | Signature | + +-------+ + + + | Protein, | 6.7 | 6 - 8 | EXTERNAL | [...] + +---------+ + + External Lab: Calcium (06/08/2015) + +-------+ + + + | Component | Value | Ref Range | Performed | Pathologist | | | | | At | Signature | + +-------+ + + + | Calcium, | 9.4 | 8.4 - 10.2 | EXTERNAL | [...] +---------+ + + External Lab: Carbon Dioxide (06/08/2015) + +-------+ + + + | Component | Value | Ref Range | Performed | Pathologist | | | | | At | Signature | + +-------+ + + + | Carbon | 28 | 19 - 31 | EXTERNAL | [...] + +---------+ + + External Lab: Chloride (06/08/2015) + +-------+ + + + | Component | Value | Ref Range | Performed | Pathologist | | | | | At | Signature | + +-------+ + + + | Chloride, | 101 | 95 - 112 | EXTERNAL | [...] + +---------+ + + External Lab: Potassium (06/08/2015) + +-------+ + + + | Component | Value | Ref Range | Performed | Pathologist | | | | | At | Signature | + +-------+ + + + | Potassium, | 4.1 | 3.6 - 5.1 | EXTERNAL | [...] + +---------+ + + External Lab: Sodium (06/08/2015) + +-------+ + + + | Component | Value | Ref Range | Performed | Pathologist | | | | | At | Signature | + +-------+ + + + | Sodium, | 137 | 132 - 143 | EXTERNAL | [...] | + +---------+ + + External Lab: B Type Naturetic Peptide (06/08/2015) + +-------+ + + + | Component | Value | Ref Range | Performed | Pathologist | | | | | At | Signature | + +-------+ + + + | B-Type | 14 | 0 - 100 | EXTERNAL | | | Naturetic | | | LAB | | | Peptide, | | | | | | External [...] + +---------+ + + External Lab: eGFR (06/08/2015) + +-------+ + + + | Component | Value | Ref Range | Performed | Pathologist | | | | | At | Signature | + +-------+ + + + | eGFR, | 30 | | EXTERNAL | | | External [...] + +---------+ + + External Lab: Creatinine (06/08/2015) + + + + + + | Component | Value | Ref Range | Performed | Pathologist | | | | | At | Signature | + + + + + + | Creatinine, | 2.20 (A) | 0.7 - 1.18 | EXTERNAL [...]
--- OUTSIDE RECORDS SUMMARY | ~2019-10-22 | XMS | Encounter Summary ---
Demographics + + + | Address | [address] | | | [place] [address] | + + + | Home Phone | | + + + | Preferred Language | Unknown | + + + | Marital Status | Single | + + + | Scientologist Affiliation | Unknown | + + + | Race | Unknown | + + + | Ethnic Group | Unknown | + + + Author + + + | Author | [facility] | | | and [place] | + + + | Organization | [facility] | | | and [place] | + + + | Address | Unknown | + + + | Phone | Unavailable | + + + Support + + + + + | Name | Relationship | Address | Phone | + + + + + | Hi Dawn | ECON | [place] | | | | | [address] | | + + + + + | Atif Delgadillo | ECON | [place], [place] | | | | | [address] | | + + + + + | Caleb Dawn | ECON | Unknown | | + + + + + Care Team Providers + +------+ + | Care Kitchen Lead Name | Role | Phone | + +------+ + PCP | Unavailable | + +------+ + Encounter Details +--------+ + + + + | Date | Type | Department | Care Team | Description | +--------+ + + + + | 06/30/ | Abstract | [facility] | Freddy Sanchez | | | 2017 | | NEPHROLOGY [address] | M, DO [address] | | | | | [address] | [place] | | | | | [place], [place] | [place] | | | | | [address] | [address] | | | | | [phone] | | | +--------+ + + + [...] | Visit | | M, DO [address] | | | | | | [place] | | | | | | [place] | | | | | | [address] | | | | | | | | +--------+ + + + + | 05/20/ | Office | Cardiology | Yumiko Del Valle, | | | 2019 | Visit | | [address] | | | | | | [place], [place] | | | | | | [address] | | | | | | | | +--------+ + + + + documented as of this encounter Procedures + +--------+ + + + | Procedure Name | Priori | Date/Time | Associated Diagnosis | Comments | | | ty | | | | + +--------+ + + + | EXTERNAL LAB: FATOUMATA | Routin | 06/29/2017 | | Results for this | | | e | | | procedure are in the | | | | | | results section. | + +--------+ + + + | EXTERNAL LAB: | Routin | 06/29/2017 | | Results for this | | GLUCOSE | e | | | procedure are in the | | | | | | results section. | + +--------+ + + + | EXTERNAL LAB: ALT | Routin | 06/29/2017 | | Results for this | | | e | | | procedure are in the | | | | | | results section. | + +--------+ + + + | EXTERNAL LAB: AST | Routin | 06/29/2017 | | Results for this | | | e | | | procedure are in the | | | | | | results section. | + +--------+ + + + | EXTERNAL LAB: | Routin | 06/29/2017 | | Results for this | | ALKALINE PHOSPHATASE | e | | | procedure are in the | | | | | | results section. | + +--------+ + + + | EXTERNAL LAB: | Routin | 06/29/2017 | | Results for this | | BILIRUBIN, TOTAL | e | | | procedure are in the | | | | | | results section. | + +--------+ + + + | EXTERNAL LAB: | Routin | 06/29/2017 | | Results for this | | ALBUMIN | e | | | procedure are in the | | | | | | results section. | + +--------+ + + + | EXTERNAL LAB: | Routin | 06/29/2017 | | Results for this | | PROTEIN, TOTAL | e | | | procedure are in the | | | | | | results section. | + +--------+ + + + | EXTERNAL LAB: | Routin | 06/29/2017 | | Results for this | | PHOSPHORUS | e | | | procedure are in the | | | | | | results section. | + +--------+ + + + | EXTERNAL LAB: | Routin | 06/29/2017 | | Results for this | | CALCIUM | e | | | procedure are in the | | | | | | results section. | + +--------+ + + + | EXTERNAL LAB: CARBON | Routin | 06/29/2017 | | Results for this | | DIOXIDE | e | | | procedure are in the | | | | | | results section. | + +--------+ + + + | EXTERNAL LAB: | Routin | 06/29/2017 | | Results for this | | CHLORIDE | e | | | procedure are in the | | | | | | results section. | + +--------+ + + + | EXTERNAL LAB: | Routin | 06/29/2017 | | Results for this | | POTASSIUM | e | | | procedure are in the | | | | | | results section. | + +--------+ + + + | EXTERNAL LAB: SODIUM | Routin | 06/29/2017 | | Results for this | | | e | | | procedure are in the | | | | | | results section. | + +--------+ + + + | EXTERNAL LAB: PTH, | Routin | 06/29/2017 | | Results for this | | INTACT | e | | | procedure are in the | | | | | | results section. | + +--------+ + + + | EXTERNAL LAB: | Routin | 06/29/2017 | | Results for this | | PROTEIN, URINE, 24HR | e | | | procedure are in the | | | | | | results section. | + +--------+ + + + | EXTERNAL LAB: CBC | Routin | 06/29/2017 | | Results for this | | | e | | | procedure are in the | | | | | | results section. | + +--------+ + + + | EXTERNAL LAB: | Routin | 06/29/2017 | | Results for this | | TRIGLYCERIDES | e | | | procedure are in the | | | | | | results section. | + +--------+ + + + | EXTERNAL LAB: | Routin | 06/29/2017 | | Results for this | | CHOLESTEROL, HDL | e | | | procedure are in the | | | | | | results section. | + +--------+ + + + | EXTERNAL LAB: | Routin | 06/29/2017 | | Results for this | | CHOLESTEROL, TOTAL | e | | | procedure are in the | | | | | | results section. | + +--------+ + + + | EXTERNAL LAB: | Routin | 06/29/2017 | | Results for this | | CHOLESTEROL, LDL | e | | | procedure are in the | | | | | | results section. | + +--------+ + + + | EXTERNAL LAB: EGFR | Routin | 06/29/2017 | | Results for this | | | e | | | procedure are in the | | | | | | results section. | + +--------+ + + + | EXTERNAL LAB: | Routin | 06/29/2017 | | Results for this | | CREATININE | e | | | procedure are in the | | | | | | results section. | + +--------+ + + + | CREATININE | Routin | 06/29/2017 | | Results for this | | CLEARANCE, RESULT | e | | | procedure are in the | | | | | | results section. | + +--------+ + + + | HEMOGLOBIN A1C | Routin | 06/29/2017 | | Results for this | | | e | | | procedure are in the | | | | | | results section. | + +--------+ + + + documented in this encounter Results External Lab: PTH, Intact (06/29/2017) + + + + + + | Component | Value | Ref Range | Performed | Pathologist | | | | | At | Signature | + + + + + + | PTH Intact, | 158.2 (A) | 15 - 65 | | | | External | | | | | + + + + + + + + | Specimen | + + | | + + Creatinine Clearance, Result (06/29/2017) + + + + + + | Component | Value | Ref Range | Performed | Pathologist | | | | | At | Signature | + + + + + + | CREATININE | 36.0 (A) | 97.0 - 137.0 | | | | CLEARANCE | | mL/min | | | + + + + + + | 24H Urine | 2,250 | mL | | | | Volume | | | | | + + + + + + + + | Specimen | + + | Urine | + + Hemoglobin A1C (06/29/2017) + +-------+ + + + | Component | Value | Ref Range | Performed | Pathologist | | | | | At | Signature | + +-------+ + + + | Hemoglobin | 5.9 | | EXTERNAL | | | A1c, | | | LAB | | | external | | | | | + +-------+ + + + + + | Specimen | + + | Blood | + + + + | Resulting Agency Comment | + + | [facility] | + + + +---------+ + + | Performing | Address | City/State/Zipcode | Phone Number | | Organization | | | | + +---------+ + + | EXTERNAL LAB | | | | + +---------+ + + External Lab: FATOUMATA (06/29/2017) + +--------+ + + + | Component | Value | Ref Range | Performed | Pathologist | | | | | At | Signature | + +--------+ + + + | FATOUMATA, | 41 (A) | 6 - 23 | EXTERNAL [...] + +---------+ + + External Lab: Glucose (06/29/2017) + +-------+ + + + | Component [...] + +---------+ + + External Lab: ALT (06/29/2017) + +-------+ + + + | Component [...] + +---------+ + + External Lab: ORION (06/29/2017) + +-------+ + + + | Component [...] +---------+ + + External Lab: Alkaline Phosphatase (06/29/2017) + +-------+ + + + | Component | Value | Ref Range | Performed | Pathologist | | | | | At | Signature | + +-------+ + + + | ALP, | 58 | 31 - 120 | EXTERNAL | | | External | [...] +---------+ + + External Lab: Bilirubin, Total (06/29/2017) + +-------+ + + + | Component | Value | Ref Range | Performed | Pathologist | | | | | At | Signature | + +-------+ + + + | Bilirubin, | 0.8 | 0 - 1.2 | EXTERNAL | [...] + +---------+ + + External Lab: Albumin (06/29/2017) + +-------+ + + + | Component | Value | Ref Range | Performed | Pathologist | | | | | At | Signature | + +-------+ + + + | Albumin, | 4.8 | 3.5 - 5 | EXTERNAL | [...] +---------+ + + External Lab: Protein, Total (06/29/2017) + +-------+ + + + | Component | Value | Ref Range | Performed | Pathologist | | | | | At | Signature | + +-------+ + + + | Protein, | 6.9 | 6 - 8 | EXTERNAL | [...] + +---------+ + + External Lab: Phosphorus (06/29/2017) + +-------+ + + + | Component | Value | Ref Range | Performed | Pathologist | | | | | At | Signature | + +-------+ + + + | Phosphorus, | 3.7 | 2.5 - 5 | EXTERNAL | | | [...] + +---------+ + + External Lab: Calcium (06/29/2017) + +-------+ + + + | Component | Value | Ref Range | Performed | Pathologist | | | | | At | Signature | + +-------+ + + + | Calcium, | 10.2 | 8.4 - 10.2 | EXTERNAL | [...] +---------+ + + External Lab: Carbon Dioxide (06/29/2017) + +-------+ + + + | Component | Value | Ref Range | Performed | Pathologist | | | | | At | Signature | + +-------+ + + + | Carbon | 24 | 19 - 31 | EXTERNAL | [...] + +---------+ + + External Lab: Chloride (06/29/2017) + +-------+ + + + | Component [...] + +---------+ + + External Lab: Potassium (06/29/2017) + +-------+ + + + | Component | Value | Ref Range | Performed | Pathologist | | | | | At | Signature | + +-------+ + + + | Potassium, | 4 | 3.6 - 5.1 | EXTERNAL | [...] + +---------+ + + External Lab: Sodium (06/29/2017) + +-------+ + + + | Component | Value | Ref Range | Performed | Pathologist | | | | | At | Signature | + +-------+ + + + | Sodium, | 140 | 132 - 143 | EXTERNAL | [...] + +---------+ + + External Lab: Protein, Urine, 24Hr (06/29/2017) + +-------+ + + + | Component | Value | Ref Range | Performed | Pathologist | | | | | At | Signature | + +-------+ + + + | Protein, | 113 | | EXTERNAL | | | Urine 24Hr, | | | LAB | | | External | | | | | + +-------+ + + + + + | Specimen | + + | Urine | + + + + | Resulting Agency Comment | + + | [facility] | + + + +---------+ + + | Performing | Address | City/State/Zipcode | Phone Number | | Organization | | | | + +---------+ + + | EXTERNAL LAB | | | | + +---------+ + + External Lab: CBC (06/29/2017) + +-------+ + + + | Component | Value | Ref Range | Performed | Pathologist | | | | | At | Signature | + +-------+ + + + | WBC, | 6.8 | 4.5 - 11 | EXTERNAL | | | External | | | LAB | | + +-------+ + + + | HGB, | 14.3 | 13.5 - 18 | EXTERNAL | | | External | | | LAB | | + +-------+ + + + | HCT, | 41.8 | 41 - 50 | EXTERNAL | | | External | | | LAB | | + +-------+ + + + | PLT, | 142 | 140 - 440 | EXTERNAL | | | External | | | LAB | | + +-------+ + + + | RBC, | 4.6 | 4.3 - 5.7 | EXTERNAL | | | External | | | LAB | | + +-------+ + + + | MCV, | 91 | 81 - 99 | EXTERNAL | | | External | | | LAB | | + +-------+ + + + | RDW, | 14.9 | 10.5 - 15 | EXTERNAL | [...] + +---------+ + + External Lab: Triglycerides (06/29/2017) + +---------+ + + + | Component | Value | Ref Range | Performed | Pathologist | | | | | At | Signature | + +---------+ + + + | Triglycerid | 241 (A) | 30 - 150 | EXTERNAL | | | es, | | | LAB | | | External | | | | | + +---------+ + + + + + | Specimen | + + | Blood | + + + + | Resulting Agency Comment | + + | [facility] | + + + +---------+ + + | Performing | Address | City/State/Zipcode | Phone Number | | Organization | | | | + +---------+ + + | EXTERNAL LAB | | | | + +---------+ + + External Lab: Cholesterol, HDL (06/29/2017) + + + + + + | Component | Value | Ref Range | Performed | Pathologist | | | | | At | Signature | + + + + + + | HDL | 26.6 (A) | 40 mg/dl | EXTERNAL | | | Cholesterol | | | LAB | | | , External | | | | | + + + + + + + + | Specimen | + + | Blood | + + + + | Resulting Agency Comment | + + | [facility] | + + + +---------+ + + | Performing | Address | City/State/Zipcode | Phone Number | | Organization | | | | + +---------+ + + | EXTERNAL LAB | | | | + +---------+ + + External Lab: Cholesterol, Total (06/29/2017) + +-------+ + + + | Component | Value | Ref Range | Performed | Pathologist | | | | | At | Signature | + +-------+ + + + | Cholesterol | 115 | 200 mg/dl | EXTERNAL | | | , Total, | | | LAB | | | External | | | | | + +-------+ + + + + + | Specimen | + + | Blood | + + + + | Resulting Agency Comment | + + | [facility] | + + + +---------+ + + | Performing | Address | City/State/Zipcode | Phone Number | | Organization | | | | + +---------+ + + | EXTERNAL LAB | | | | + +---------+ + + External Lab: Cholesterol, LDL (06/29/2017) + +-------+ + + + | Component | Value | Ref Range | Performed | Pathologist | | | | | At | Signature | + +-------+ + + + | LDL | 40 | 100 | EXTERNAL | | | Cholesterol | | | LAB | | | , Direct, | | | | | | External | | | | | + +-------+ + + + + + | Specimen | + + | Blood | + + + + | Resulting Agency Comment | + + | [facility] | + + + +---------+ + + | Performing | Address | City/State/Zipcode | Phone Number | | Organization | | | | + +---------+ + + | EXTERNAL LAB | | | | + +---------+ + + External Lab: eGFR (06/29/2017) + +-------+ + + + | Component | Value | Ref Range | Performed | Pathologist | | | | | At | Signature | + +-------+ + + + | eGFR, | 27 | | EXTERNAL | | | External | | | LAB | | + +-------+ + + + + + | Specimen | + + | Blood | + + + + | Resulting Agency Comment | + + | [facility] | + + + +---------+ + + | Performing | Address | City/State/Zipcode | Phone Number | | Organization | | | | + +---------+ + + | EXTERNAL LAB | | | | + +---------+ + + External Lab: Creatinine (06/29/2017) + + + + + + | Component | Value | Ref Range | Performed | Pathologist | | | | | At | Signature | + + + + + + | Creatinine, | 2.37 (A) | 0.7 - 1.18 | EXTERNAL | | | External | | | LAB | | + + + + + + + + | Specimen | + + | Blood | + + + + | Resulting [...]
--- OUTSIDE RECORDS SUMMARY | ~2019-10-22 | XMS | Encounter Summary ---
Demographics + + + | Address | [address] | | | [place] [address] | + + + | Home Phone [...] [place] | | | | | [address] | | + + + + + | Atif Delgadillo | ECON | [place], [place] | | | | | [address] | | + + + + + | Caleb Dawn | ECON | Unknown | | + + + + + Care Team Providers + +------+ + | Care Cloth Bleaching Range Back Tender Name | Role | Phone | + +------+ + PCP | Unavailable | + +------+ + Encounter Details +--------+ + + + + | Date | Type | Department | Care Team | Description | +--------+ + + + + | 08/29/ | Abstract | [facility] | Freddy Sanchez | | | 2012 | | NEPHROLOGY [address] | M, DO [address] | | | | | [address] | [place] | | | | | [place], [place] | [place] | | | | | [address] | [address] | | | | | [phone] | | | +--------+ + + + + Social History + +-------+ +--------+------+ | Tobacco Use | Types | Packs/Day | Years | Date | | | | | Used | | + +-------+ +--------+------+ | Never Smoker | | | | | + +-------+ +--------+------+ + + +---------+ + | Alcohol Use | Drinks/Week | oz/Week | Comments | + + +---------+ + | Yes | | | | + + +---------+ [...] | Visit | | M, DO [address] | | | | | | [address] | | | | | | [place] | | | | | | [id number] | | | | | | | | +--------+ + + + + | 05/20/ | Office | Cardiology | Yumiko Del Valle, | | | 2019 | Visit | | [address] | | | | | | [place] | | | | | | [address] | | | | | | | | +--------+ + + + + documented as of this encounter Visit Diagnoses Not on filedocumented in this encounter"
--- OUTSIDE RECORDS SUMMARY | ~2019-10-22 | XMS | Encounter Summary ---
Demographics + + + | Address | [address] | | | [place] [address] | + + + | Home Phone | | + + + | Preferred Language | Unknown | + + + | Marital Status | Single | + + + | Druze Affiliation | Unknown | + + + | Race | Unknown | + + + | Ethnic Group | Unknown | + + + Author + + + | Author | [facility] | | | and [place] | + + + | Organization | [facility] | | | and [place] | + + + | Address | Unknown | + + + | Phone | Unavailable | + + + Support + + + + + | Name | Relationship | Address | Phone | + + + + + | Hi Dawn | ECON | [place] | | | | | [address] | | + + + + + | Atif Delgadillo | ECON | [place], [place] | | | | | [address] | | + + + + + | Caleb Dawn | ECON | Unknown | | + + + + + Care Team Providers + +------+ + | Care Box Chipper Name | Role | Phone | + +------+ + PCP | Unavailable | + +------+ + Encounter Details +--------+ + + + + | Date | Type | Department | Care Team | Description | +--------+ + + + + | 11/29/ | Abstract | [facility] | Freddy Sanchez | | | 2017 | | NEPHROLOGY [address] | M, DO [address] | | | | | [address] | [place] | | | | | [place], [place] | [place] | | | | | [address] | [address] | | | | | [phone] | | | +--------+ + + + [...] | Visit | | M, DO [address] | | | | | | [place] | | | | | | [place] | | | | | | [address] | | | | | | | | +--------+ + + + + | 05/20/ | Office | Cardiology | Yumiko Del Valle, | | | 2019 | Visit | | [address] | | | | | | [place] | | | | | | [address] | | | | | | | [...] | EXTERNAL LAB: EGFR | Routin | 11/28/2016 | | Results [...] in this encounter Results External Lab: BUN (11/28/2016) + +--------+ + + + | Component | Value | Ref Range | Performed | Pathologist | | | | | At | Signature | + +--------+ + + + | FATOUMATA, | 46 (A) | 6 - 23 [...]
--- OUTSIDE RECORDS SUMMARY | ~2019-10-22 | XMS | Encounter Summary ---
Demographics + + + | Address | [address] | | | [place] [address] | + + + | Home Phone [...] + + + | Author | [facility] | | | and [place] | + + + | Organization | [facility] | | | and [place] | + + + | Address | Unknown | + + + | Phone | Unavailable | + + + Support + + + + + | Name | Relationship | Address | Phone | + + + + + | Hi Dawn | ECON | [place] | | | | | [address] | | + + + + + | Atif Delgadillo | ECON | [place], [place] | | | | | [address] | | + + + + + | Caleb Dawn | ECON | Unknown | | + + + + + Care Team Providers + +------+ + | Care Scientific Glass Blower Name | Role | Phone | + +------+ + PCP | Unavailable | + +------+ + Reason for Visit + + + | Reason | Comments | + + + | Medication | | | Management | | + + + Encounter Details +--------+ + + + + | Date | Type | Department | Care Team | Description | +--------+ + + + + | 01/16/ | Telephone | [facility] | Freddy Sanchez | Medication | | 2014 | | NEPHROLOGY [address] | M, DO [address] | Management | | | | [address] [facility] | [place], [facility] 100 | | | | | [place], [place] | [place], [place] | | | | | [address] | [address] | | | | | [phone] | | | +--------+ + + + [...] 2019 | Visit | | DO Olayinka [address] [place] [address] | | | | | | [place] | | | | | | [place] | | | | | | [address] | | | | | | | | +--------+ + + + + | 05/20/ | Office | Cardiology | Yumiko Del Valle, | | | 2019 | Visit | | MD Lupe TYLER | | | | | | [place] | | | | | | [address] | | | | | | | | +--------+ + + + + documented as of this encounter Visit Diagnoses Not on filedocumented in this encounter"
--- OUTSIDE RECORDS SUMMARY | ~2019-10-22 | XMS | Encounter Summary ---
Demographics + + + | Address | [address] | | | [place] [address] | + + + | Home Phone | | + + + | Preferred Language | Unknown | + + + | Marital Status | Single | + + + | Quaker Affiliation | Unknown | + + + | Race | Unknown | + + + | Ethnic Group | Unknown | + + + Author + + + | Author | [facility] | | | and [place] | + + + | Organization | [facility] | | | and [place] | + + + | Address | Unknown | + + + | Phone | Unavailable | + + + Support + + + + + | Name | Relationship | Address | Phone | + + + + + | Hi Dawn | ECON | [place] | | | | | [address] | | + + + + + | Atif Delgadillo | ECON | [place], [place] | | | | | [address] | | + + + + + | Caleb Dawn | ECON | Unknown | | + + + + + Care Team Providers + +------+ + | Care Car Escort Name | Role | Phone | + +------+ + PCP | Unavailable | + +------+ + Encounter Details +--------+ + + + + | Date | Type | Department | Care Team | Description | +--------+ + + + + | 09/09/ | Orders Only | [facility] [place] | Freddy Sanchez | Chronic kidney | | 2013 | | NEPHROLOGY [address] | M, DO [address] [place] | disease, stage III | | | | [address] | [place], [address] | (moderate) (Primary | | | | [place], [place] | [place], [place] | Dx); Hypertension; | | | | [address] | [address] | Type II or | | | | [phone] | | unspecified type | | | | | | diabetes mellitus | | | | | | with renal | | | | | | manifestations, not | | | | | | stated as | | | | | | uncontrolled | +--------+ + + + + Social [...] encounter Progress Notes Imani Whitney RN - 09/09/2014 10:51 AM PDTLab for nephology appt on 09/22/14 sent to Int erpath documented in t his encounter Plan of Treatment +--------+ + + + + | Date | Type | Specialty | Care Team | Description | +--------+ + + + + | 03/16/ | Off-Site | Nephrology | Freddy Sanchez | | | 2019 | Visit | | DO [place]ay[address] [address] [place] [address] | | | | | | [place] [address] | | | | | | [place] | | | | | | [address] | | | | | | | | +--------+ + + + + | 05/20/ | Office | Cardiology | Yumiko Del Valle, | | | 2019 | Visit | | MD Lupe TYLER | | | | | | [place] | | | | | | [phone] | | | | | | | | +--------+ + + + + documented as of this encounter Visit Diagnoses + + | Diagnosis | + + | Chronic kidney disease, stage III (moderate) - Primary Chronic kidney disease, Stage | | III (moderate) | + + | Hypertension Unspecified essential hypertension | + + | Type II or unspecified type diabetes mellitus with renal manifestations, not stated as | | uncontrolled | + + documented in this encounter"
--- OUTSIDE RECORDS SUMMARY | ~2019-10-22 | XMS | Encounter Summary ---
Demographics + + + | Address | [address] | | | [place] [address] | + + + | Home Phone | | + + + | Preferred Language | Unknown | + + + | Marital Status | Single | + + + | Pentecostal Affiliation | Unknown | + + + | Race | Unknown | + + + | Ethnic Group | Unknown | + + + Author + + + | Author | [facility] | | | and [place] | + + + | Organization | [facility] | | | and [place] | + + + | Address | Unknown | + + + | Phone | Unavailable | + + + Support + + + + + | Name | Relationship | Address | Phone | + + + + + | Hi Dawn | ECON | [place] | | | | | [address] | | + + + + + | Atif Delgadillo | ECON | [place], [place] | | | | | [address] | | + + + + + | Caleb Dawn | ECON | Unknown | | + + + + + Care Team Providers + +------+ + | Care Home Restoration Service Supervisor Name | Role | Phone | + +------+ + PCP | Unavailable | + +------+ + Encounter Details +--------+ + + + + | Date | Type | Department | Care Team | Description | +--------+ + + + + | 01/31/ | Orders Only | [facility] [place] | Freddy Sanchez | Chronic kidney | | 2018 | | NEPHROLOGY [address] | M, DO [address] [place] | disease, stage III | | | | [address] | [place], [address] | (moderate) (Primary | | | | [place], [place] | [place], [place] | Dx); Type 2 diabetes | | | | [address] | [address] | mellitus with stage | | | | [phone] | | 3 chronic kidney | | | | | | disease, with | | | | | | long-term current | | | | | | use of insulin (HCC) | +--------+ + + + + [...] encounter Progress Notes Imani Whitney RN - 01/31/2018 11:16 AM PDTLabs for upcoming nephrology appointment sent to: Cyn documented in this encounter Plan of Treatment +--------+ + + + + | Date | Type | Specialty | Care Team | Description | +--------+ + + + + | 03/16/ | Off-Site | Nephrology | Freddy Sanchez | | 2019 | Visit | | DO [address] [place] [address] | | | | | | [place] [address] | | | | | | [place] | | | | | | [id number] | | | | | | | | +--------+ + + + + | 05/20/ | Office | Cardiology | Yumiko Del Valle, | | | 2019 | Visit | | MD Lupe TYLER | | | | | | [place] | | | | | | [address] | | | | | | | | +--------+ + + + + documented as of this encounter Visit Diagnoses + + | Diagnosis | + + | Chronic kidney disease, stage III (moderate) (HCC) - Primary Chronic kidney disease, | | Stage III (moderate) | + + | Type 2 diabetes mellitus with stage 3 chronic kidney disease, with long-term current | | use of insulin (HCC) | + + documented in this encounter"
--- OUTSIDE RECORDS SUMMARY | ~2019-10-22 | XMS | Encounter Summary ---
Demographics + + + | Address | [address] | | | [place] [address] | + + + | Home Phone | | + + + | Preferred Language | Unknown | + + + | Marital Status | Single | + + + | Latter-Day Affiliation | Unknown | + + + | Race | Unknown | + + + | Ethnic Group | Unknown | + + + Author + + + | Author | [facility] | | | and [place] | + + + | Organization | [facility] | | | and [place] | + + + | Address | Unknown | + + + | Phone | Unavailable | + + + Support + + + + + | Name | Relationship | Address | Phone | + + + + + | Hi Dawn | ECON | [place] | | | | | [address] | | + + + + + | Atif Delgadillo | ECON | [place] | | | | | [address] | | + + + + + | Caleb Dawn | ECON | Unknown | | + + + + + Care Team Providers + +------+ + | Care Hog Man Name | Role | Phone | + +------+ + | Anoop Moyer MD | PCP | | + +------+ + Encounter Details +--------+ + + + + | Date | Type | Department | Care Team | Description | +--------+ + + + + | 12/31/ | Abstract | [facility] [place] | Freddy Sanchez | | | 2019 | | NEPHROLOGY [address] | M, DO [address] | | | | | [address] [facility] | [place] | | | | | [place], [place] | [place], [place] | | | | | [address] | [address] | | | | | [phone] | | | +--------+ + + + [...] | Visit | | DO Anival Bhagat | | | | | | [place] | | | | | | [place] | | | | | | [address] | | | | | | | | +--------+ + + + + | 05/20/ | Office | Cardiology | Yumiko Del Valle, | | | 2019 | Visit | | [address] | | | | | | [place] | | | | | | [address] | | | | | | | | +--------+ + + + + documented as of this encounter Procedures + +--------+ + + + | Procedure Name | Priori | Date/Time | Associated Diagnosis | Comments | | | ty | | | | + +--------+ + + + | EXTERNAL LAB: FATOUMATA | Routin | 12/28/2018 | | Results for this | | | e | | | procedure are in the | | | | | | results section. | + +--------+ + + + | EXTERNAL LAB: | Routin | 12/28/2018 | | Results for this | | GLUCOSE | e | | | procedure are in the | | | | | | results section. | + +--------+ + + + | EXTERNAL LAB: ALT | Routin | 12/28/2018 | | Results for this | | | e | | | procedure are in the | | | | | | results section. | + +--------+ + + + | EXTERNAL LAB: AST | Routin | 12/28/2018 | | Results for this | | | e | | | procedure are in the | | | | | | results section. | + +--------+ + + + | EXTERNAL LAB: | Routin | 12/28/2018 | | Results for this | | ALKALINE PHOSPHATASE | e | | | procedure are in the | | | | | | results section. | + +--------+ + + + | EXTERNAL LAB: | Routin | 12/28/2018 | | Results for this | | BILIRUBIN, TOTAL | e | | | procedure are in the | | | | | | results section. | + +--------+ + + + | EXTERNAL LAB: | Routin | 12/28/2018 | | Results for this | | ALBUMIN | e | | | procedure are in the | | | | | | results section. | + +--------+ + + + | EXTERNAL LAB: | Routin | 12/28/2018 | | Results for this | | PROTEIN, TOTAL | e | | | procedure are in the | | | | | | results section. | + +--------+ + + + | EXTERNAL LAB: | Routin | 12/28/2018 | | Results for this | | PHOSPHORUS | e | | | procedure are in the | | | | | | results section. | + +--------+ + + + | EXTERNAL LAB: | Routin | 12/28/2018 | | Results for this | | CALCIUM | e | | | procedure are in the | | | | | | results section. | + +--------+ + + + | EXTERNAL LAB: CARBON | Routin | 12/28/2018 | | Results for this | | DIOXIDE | e | | | procedure are in the | | | | | | results section. | + +--------+ + + + | EXTERNAL LAB: | Routin | 12/28/2018 | | Results for this | | CHLORIDE | e | | | procedure are in the | | | | | | results section. | + +--------+ + + + | EXTERNAL LAB: | Routin | 12/28/2018 | | Results for this | | POTASSIUM | e | | | procedure are in the | | | | | | results section. | + +--------+ + + + | EXTERNAL LAB: MARIO | Routin | 12/28/2018 | | Results for this | | | e | | | procedure are in the | | | | | | results section. | + +--------+ + + + | EXTERNAL LAB: ENRICO, | Routin | 12/28/2018 | | Results for this | | INTACT | e | | | procedure are in the | | | | | | results section. | + +--------+ + + + | EXTERNAL LAB: EPIFANIO | Routin | 12/28/2018 | | Results for this | | | e | | | procedure are in the | | | | | | results section. | + +--------+ + + + | EXTERNAL LAB: | Routin | 12/28/2018 | | Results for this | | TRIGLYCERIDES | e | | | procedure are in the | | | | | | results section. | + +--------+ + + + | EXTERNAL LAB: | Routin | 12/28/2018 | | Results for this | | CHOLESTEROL, HDL | e | | | procedure are in the | | | | | | results section. | + +--------+ + + + | EXTERNAL LAB: | Routin | 12/28/2018 | | Results for this | | CHOLESTEROL, TOTAL | e | | | procedure are in the | | | | | | results section. | + +--------+ + + + | EXTERNAL LAB: | Routin | 12/28/2018 | | Results for this | | CHOLESTEROL, LDL | e | | | procedure are in the | | | | | | results section. | + +--------+ + + + | EXTERNAL LAB: EGFR | Routin | 12/28/2018 | | Results for this | | | e | | | procedure are in the | | | | | | results section. | + +--------+ + + + | EXTERNAL LAB: | Routin | 12/28/2018 | | Results for this | | CREATININE | e | | | procedure are in the | | | | | | results section. | + +--------+ + + + | CREATININE | Routin | 12/28/2018 | | Results for this | | CLEARANCE, RESULT | e | | | procedure are in the | | | | | | results section. | + +--------+ + + + | HEMOGLOBIN A1C | Routin | 12/28/2018 | | Results for this | | | e | | | procedure are in the | | | | | | results section. | + +--------+ + + + documented in this encounter Results Creatinine Clearance, Result (12/28/2018) + + + + + + | Component | Value | Ref Range | Performed | Pathologist | | | | | At | Signature | + + + + + + | CREATININE | 37.0 (A) | 97.0 - 137.0 | | | | CLEARANCE | | mL/min | | | + + + + + + | 24H Urine | 3,150 | mL | | | | Volume | | | | | + + + + + + + + | Specimen | + + | Urine | + + External Lab: PTH, Intact (12/28/2018) + + + + + + | Component | Value | Ref Range | Performed | Pathologist | | | | | At | Signature | + + + + + + | PTH Intact, | 141.1 (A) | 12 - 88 | | | | External | | | | | + + + + + + + + | Specimen | + + | | + + Hemoglobin A1C (12/28/2018) + +-------+ + + + | Component | Value | Ref Range | Performed | Pathologist | | | | | At | Signature | + +-------+ + + + | Hemoglobin | 6.3 | % | | | | A1c | | | | | + +-------+ + + + + + | Specimen | + + | Blood | + + External Lab: BUN (12/28/2018) + +-------+ + + + | Component | Value | Ref Range | Performed | Pathologist | | | | | At | Signature | + +-------+ + + + | BUN, | 54 | | | | | External | | | | | + +-------+ + + + External Lab: Glucose (12/28/2018) + +-------+ + + + | Component | Value | Ref Range | Performed | Pathologist | | | | | At | Signature | + +-------+ + + + | Glucose, | 152 | | | | | External | | | | | + +-------+ + + + External Lab: ALT (12/28/2018) + +-------+ + + + | Component | Value | Ref Range | Performed | Pathologist | | | | | At | Signature | + +-------+ + + + | ALT, | 19 | | | | | External | | | | | + +-------+ + + + External Lab: AST (12/28/2018) + +-------+ + + + | Component | Value | Ref Range | Performed | Pathologist | | | | | At | Signature | + +-------+ + + + | AST, | 13 | | | | | External | | | | | + +-------+ + + + External Lab: Alkaline Phosphatase (12/28/2018) + +-------+ + + + | Component | Value | Ref Range | Performed | Pathologist | | | | | At | Signature | + +-------+ + + + | ALP, | 60 | | | | | External | | | | | + +-------+ + + + External Lab: Bilirubin, Total (12/28/2018) + +-------+ + + + | Component | Value | Ref Range | Performed | Pathologist | | | | | At | Signature | + +-------+ + + + | Bilirubin, | 0.7 | | | | | Total, | | | | | | External | | | | | + +-------+ + + + External Lab: Albumin (12/28/2018) + +-------+ + + + | Component | Value | Ref Range | Performed | Pathologist | | | | | At | Signature | + +-------+ + + + | Albumin, | 4.5 | | | | | External | | | | | + +-------+ + + + External Lab: Protein, Total (12/28/2018) + +-------+ + + + | Component | Value | Ref Range | Performed | Pathologist | | | | | At | Signature | + +-------+ + + + | Protein, | 6.5 | | | | | Total, | | | | | | External | | | | | + +-------+ + + + External Lab: Phosphorus (12/28/2018) + +-------+ + + + | Component | Value | Ref Range | Performed | Pathologist | | | | | At | Signature | + +-------+ + + + | Phosphorus, | 3.6 | | | | | External | | | | | + +-------+ + + + External Lab: Calcium (12/28/2018) + +-------+ + + + | Component | Value | Ref Range | Performed | Pathologist | | | | | At | Signature | + +-------+ + + + | Calcium, | 9.9 | | | | | External | | | | | + +-------+ + + + External Lab: Carbon Dioxide (12/28/2018) + +-------+ + + + | Component | Value | Ref Range | Performed | Pathologist | | | | | At | Signature | + +-------+ + + + | Carbon | 26 | | | | | Dioxide, | | | | | | External | | | | | + +-------+ + + + External Lab: Chloride (12/28/2018) + +-------+ + + + | Component | Value | Ref Range | Performed | Pathologist | | | | | At | Signature | + +-------+ + + + | Chloride, | 102 | | | | | External | | | | | + +-------+ + + + External Lab: Potassium (12/28/2018) + +-------+ + + + | Component | Value | Ref Range | Performed | Pathologist | | | | | At | Signature | + +-------+ + + + | Potassium, | 4.1 | | | | | External | | | | | + +-------+ + + + External Lab: Sodium (12/28/2018) + +-------+ + + + | Component | Value | Ref Range | Performed | Pathologist | | | | | At | Signature | + +-------+ + + + | Sodium, | 139 | | | | | External | | | | | + +-------+ + + + External Lab: CBC (12/28/2018) + +-------+ + + + | Component | Value | Ref Range | Performed | Pathologist | | | | | At | Signature | + +-------+ + + + | WBC, | 5.3 | | | | | External | | | | | + +-------+ + + + | HGB, | 13.2 | | | | | External | | | | | + +-------+ + + + | HCT, | 37.3 | | | | | External | | | | | + +-------+ + + + | PLT, | 128 | | | | | External | | | | | + +-------+ + + + | RBC, | 4.11 | | | | | External | | | | | + +-------+ + + + | MCV, | 91 | | | | | External | | | | | + +-------+ + + + | RDW, | 14.6 | | | | | External | | | | | + +-------+ + + + External Lab: Triglycerides (12/28/2018) + +-------+ + + + | Component | Value | Ref Range | Performed | Pathologist | | | | | At | Signature | + +-------+ + + + | Triglycerid | 200 | | | | | es, | | | | | | External | | | | | + +-------+ + + + + + | Specimen | + + | Blood | + + External Lab: Cholesterol, HDL (12/28/2018) + +-------+ + + + | Component | Value | Ref Range | Performed | Pathologist | | | | | At | Signature | + +-------+ + + + | HDL | 27 | mg/dl | | | | Cholesterol | | | | | | , External | | | | | + +-------+ + + + + + | Specimen | + + | Blood | + + External Lab: Cholesterol, Total (12/28/2018) + +-------+ + + + | Component | Value | Ref Range | Performed | Pathologist | | | | | At | Signature | + +-------+ + + + | Cholesterol | 120 | mg/dl | | | | , Total, | | | | | | External | | | | | + +-------+ + + + + + | Specimen | + + | Blood | + + External Lab: Cholesterol, LDL (12/28/2018) + +-------+ + + + | Component | Value | Ref Range | Performed | Pathologist | | | | | At | Signature | + +-------+ + + + | LDL | 53 | | | | | Cholesterol | | | | | | , Direct, | | | | | | External | | | | | + +-------+ + + + + + | Specimen | + + | Blood | + + External Lab: eGFR (12/28/2018) + +-------+ + + + | Component | Value | Ref Range | Performed | Pathologist | | | | | At | Signature | + +-------+ + + + | eGFR, | 30 | | | | | External | | | | | + +-------+ + + + + + | Specimen | + + | Blood | + + External Lab: Creatinine (12/28/2018) + +-------+ + + + | Component | Value | Ref Range | Performed | Pathologist | | | | | At | Signature | + +-------+ + + + | Creatinine, | 2.16 | | | | | External | | | | | + +-------+ + + + + + | Specimen | + + | Blood | + + documented in this encounter Visit Diagnoses Not on filedocumented in this encounter"
--- OUTSIDE RECORDS SUMMARY | ~2019-10-22 | XMS | Encounter Summary ---
Demographics + + + | Address | [address] | | | [place] [address] | + + + | Home Phone | | + + + | Preferred Language | Unknown | + + + | Marital Status | Single | + + + | Anabaptism Affiliation | Unknown | + + + [...] [place] | | | | | [address] | | + + + + + | Atif Delgadillo | ECON | [place], [place] | | | | | [address] | | + + + + + | Caleb Dawn | ECON | Unknown | | + + + + + Care Team Providers + +------+ + | Care Chalk Cutter Name | Role | Phone | + +------+ + PCP | Unavailable | + +------+ + Reason for Visit +--------+ + | Reason | Comments | +--------+ + | Anemia | | +--------+ + Encounter Details +--------+ + + + + | Date | Type | Department | Care Team | Description | +--------+ + + + + | 12/25/ | Clinical | [facility] | Freddy Sanchez | Anemia in chronic | | 2013 | Support | NEPHROLOGY [address] | M, DO [address] [place] | kidney | | | | [address] [facility] | [place], [facility] 100 | disease(285.21) | | | | [place] | [place] | (Primary Dx) | | | | [address] | [address] | | | | | [phone] | | | +--------+ + + + [...] as of this encounter Progress Notes Imani Wang RN - 12/25/2013 12:00 PM PSTFormatting of this note might be different fr om the original. Administrations This Visit darbepoetin easton (ARANESP) 60 mcg/0.3 mL injection 60 mcg Date Action Dose Route User 12/25/2013 Given 60 mcg Subcutaneous IMANI WANG documented in this e ncounter Plan of Treatment +--------+ + + + + | Date | Type | Specialty | Care Team | Description | +--------+ + + + + | 03/16/ | Off-Site | Nephrology | Freddy Sanchez | | 2019 | Visit | | DO Olayinka [address] [place] [address] | | | | | | [place] | | | | | | [place] | | | | | | [address] | | | | | | | | +--------+ + + + + | 05/20/ | Office | Cardiology | Yumiko Del Valle, | | | 2019 | Visit | | MD Lupe TYLER | | | | | | [place] | | | | | | [phone] | | | | | | | | +--------+ + + + + documented as of this encounter Visit Diagnoses + + | Diagnosis | + + | Anemia in chronic kidney disease(285.21) - Primary Anemia in chronic kidney disease | + + documented in this encounter Administered Medications + +--------+ +--------+------+ + | Medication Order | MAR | Action | Dose | Rate | Site | | | Action | Date | | | | + +--------+ +--------+------+ + | darbepoetin easton (ARANESP) 60 | Given | 12/25/19 | 60 mcg | | Arm-Left | | mcg/0.3 mL injection 60 mcg 60 | | 14 11:59 | | | Upper | | mcg, Subcutaneous, ONCE, Wed | | AM PST | | | | | 12/25/13 at 1215, For 1 dose, Keep | | | | | | | in refrigerator. Do not shake., | | | | | | + +--------+ +--------+------+ + +---+---+ | | | +---+---+ documented in this encounter"
--- OUTSIDE RECORDS SUMMARY | ~2019-10-22 | XMS | Encounter Summary ---
Demographics + + + | Address | [address] | | | [place] [address] | + + + | Home Phone | | + + + | Preferred Language | Unknown | + + + | Marital Status | Single | + + + | Jainism Affiliation | Unknown | + + + | Race | Unknown | + + + | Ethnic Group | Unknown | + + + Author + + + | Author | [facility] | | | and [place] | + + + | Organization | [facility] | | | and [place] | + + + | Address | Unknown | + + + | Phone | Unavailable | + + + Support + + + + + | Name | Relationship | Address | Phone | + + + + + | Hi Dawn | ECON | [place] | | | | | [address] | | + + + + + | Atif Degladillo | ECON | [place], [place] | | | | | [address] | | + + + + + | Caleb Dawn | ECON | Unknown | | + + + + + Care Team Providers + +------+ + | Care Hat Maker Name | Role | Phone | + +------+ + PCP | Unavailable | + +------+ + Encounter Details +--------+ + + + + | Date | Type | Department | Care Team | Description | +--------+ + + + + | 05/05/ | Hospital | [facility] | Timothy, | Hypertension | | 2013 | Encounter | MED CTR LABORATORY | ELLA [address] | | | | | [address] | [address], | | | | | [place] | [place] [address] | | | | | [address] | [phone] | | | | | [phone] | | | +--------+ + + + [...] | | | | | | | ([facility]) | | | | | | + [...] | | | | | heart failure) ([facility]) | | | | | | + [...] | Visit | | M, DO [address] | | | | | | [address] [place] [address] | | | | | | [place] | | | | | | [id number] | | | | | | | | +--------+ + + + + | 05/20/ | Office | Cardiology | Yumiko Del Valle, | | | 2019 | Visit | | MD Lupe TYLER | | | | | | [place], [place] | | | | | | [address] | | | | | | | [...] | | | | | mmol/L | [facility] | | | | | | MEDICAL | | | | | | CENTER - | | | | | | LABORATORY | | + + + + + + | K | 4.1 | 3.5 - 5.1 | [facility] | | | | | mmol/L | [facility] | | | | [...] (H) | 7 - 18 mg/dL | [facility] | | | | | | [facility] | | | | | | MEDICAL | | | | | | CENTER - | | | | | | LABORATORY | | + + + + + + | Creatinine | 1.60 (H) | 0.60 - 1.30 | [facility] | | | | | mg/dL | [facility] | | | | | | MEDICAL | | | | | | CENTER - | | | | | | LABORATORY | | + + + + + + | eGFR if not | 43 (L)Comment: | >=60 | [facility] | | | | GLOMERULAR FILTRATION | mL/min/1.73m2 | [facility] | | | [place] | RATE,ESTIMATED | | MEDICAL | | | | mL/min/1.76u0Ptsu than | | CENTER - | | [...] | | | | | mg/dL | [facility] | | | | [...] | + + + + + | [facility] | [address] | [place], [place] | [phone] | | [facility] | | [address] | | | - LABORATORY | | | | + + + + + | [facility] | [address] | [place], [place] | | | [facility] | | [address] | | | - LABORATORY | | | | + + + + + documented in this encounter Visit Diagnoses + + | Diagnosis | + + | Hypertension Unspecified essential hypertension | + + documented in this encounter"
--- OUTSIDE RECORDS SUMMARY | ~2019-10-22 | XMS | Encounter Summary ---
Demographics + + + | Address | [address] | | | [place] [address] | + + + | Home Phone [...] Author + + + | Author | [facility] | | | and [place] | + + + | Organization | [facility] | | | and [place] | + + + | Address | Unknown | + + + | Phone | Unavailable | + + + Support + + + + + | Name | Relationship | Address | Phone | + + + + + | Hi Dawn | ECON | [place] | | | | | [address] | | + + + + + | Atif Delgadillo | ECON | [place], [place] | | | | | [address] | | + + + + + | Caleb Dawn | ECON | Unknown | | + + + + + Care Team Providers + +------+ + | Care Application Helper Name | Role | Phone | + +------+ + PCP | Unavailable | + +------+ + Encounter Details +--------+ + + + + | Date | Type | Department | Care Team | Description | +--------+ + + + + | 01/16/ | Hospital | [facility] | | | | 2006 | Encounter | MED CTR XRAY [address] | | | | | | [address] | | | | | | [place] [address] | | | | | | [phone] | | | +--------+ + + + [...] | Visit | | DO Anival Bhag[address] [place] | | | | | | [place] | | | | | | [place] | | | | | | [phone] | | | | | | | | +--------+ + + + + | 05/20/ | Office | Cardiology | Yumiko Del Valle, | | | 2019 | Visit | | MD Lupe TYLER | | | | | | [place] | | | | | | [phone] | | | | | | | | +--------+ + + + + documented as of this encounter Visit Diagnoses Not on filedocumented in this encounter"
--- OUTSIDE RECORDS SUMMARY | ~2019-10-22 | XMS | Encounter Summary ---
Demographics + + + | Address | [address] | | | [place] [address] | + + + | Home Phone | | + + + | Preferred Language | Unknown | + + + | Marital Status | Single | + + + | Jew Affiliation | Unknown | + + + | Race | Unknown | + + + | Ethnic Group | Unknown | + + + Author + + + | Author | [facility] | | | and [place] | + + + | Organization | [facility] | | | and [place] | + + + | Address | Unknown | + + + | Phone | Unavailable | + + + Support + + + + + | Name | Relationship | Address | Phone | + + + + + | Hi Dawn | ECON | [place] | | | | | [address] | | + + + + + | Atif Delgadillo | ECON | [place], [place] | | | | | [address] | | + + + + + | Caleb Dawn | ECON | Unknown | | + + + + + Care Team Providers + +------+ + | Care Security Systems Integrator Name | Role | Phone | + [...] | kidney | MD [address] | | | | | disease, | Belk | [place], [place] | | | | | stage 3 | [place] [address] | [address] | | | | | (moderate) | [place], | [place] | | | | | (HCC) | [place] | [address] Phone: | | | | | Hypertension | [address] | [phone] | | | | | , essential | Phone: | Fax: | | | | | Type 2 | [phone] | [phone] | | | | | diabetes | Fax: | | | | | | mellitus | [phone] | | | | | | with stage 3 | | | | | | | chronic | | | | | | | kidney | | | | | | | disease | | | | | | | (HCC) | | | | | | | Procedures | | | | | | | [place] OFFICE | | | | | | [...] | | [address] | [place], [place] [address] | (moderate) (Primary | | | | [place] | [place] | Dx); Secondary | | | | [address] | [address] | hyperparathyroidism | | | | [phone] | | of renal origin | | [...] (ELOCON) 0.1 % cream Apply topically Daily. [place]-3 Fatty Acids (FISH OIL) 1200 MG CAPS Take 1,200 mg by mouth 2 times daily. [DISCONTINUED] [place]-3 Fatty Acids (FISH OIL) 300 MG CAPS [...] 01/05/2017 PHOSEX 3.7 01/05/2017 PTHEX 135.7* 01/05/2017 ULI3WGR 6.5 01/05/2017 Lab Results Component Value Date [...] 6 mo. at the [facility], at [place], [place]. He wi ll have a CBC, CMP, P04, PTH, CPK, HbA1c, lipid profile and 24-hour urine collection one w te-moak prior to that. : Hema Gregory MD, [place], [place] documented in th is encounter Plan of Treatment +--------+ + + + + | Date | Type | Specialty | Care Team | Description | +--------+ + + + + | 03/16/ | Off-Site | Nephrology | Freddy Sanchez | | | 2019 | Visit | | DO [address] | | | | | | [address] [place] [address] | | | | | | [place] | | | | | | [address] | | | | | | | | +--------+ + + + + | 05/20/ | Office | Cardiology | Yumiko Del Valle, | | | 2019 | Visit | | MD Lupe TYLER | | | | | | [place] [facility] [place] | | | | | | [address] | | | | | | | [...]
--- OUTSIDE RECORDS SUMMARY | ~2019-10-22 | XMS | Encounter Summary ---
Demographics + + + | Address | [address] | | | [place] [address] | + + + | Home Phone | | + + + | Preferred Language | Unknown | + + + | Marital Status | Single | + + + | Anglican Affiliation | Unknown | + + + | Race | Unknown | + + + | Ethnic Group | Unknown | + + + Author + + + | Author | [facility] | | | and [place] | + + + | Organization | [facility] | | | and [place] | + + + | Address | Unknown | + + + | Phone | Unavailable | + + + Support + + + + + | Name | Relationship | Address | Phone | + + + + + | Hi Dawn | ECON | [place] | | | | | [address] | | + + + + + | Atif Delgadillo | ECON | [place], [place] | | | | | [address] | | + + + + + | Caleb Dawn | ECON | Unknown | | + + + + + Care Team Providers + +------+ + | Care Poke In Name | Role | Phone | + +------+ + PCP | Unavailable | + +------+ + Encounter Details +--------+ + + + + | Date | Type | Department | Care Team | Description | +--------+ + + + + | 01/02/ | Abstract | [facility] | Logan Baca, | Light headedness | | 2013 | | CARDIOLOGY [address] | MD [address] | (Primary Dx); | | | | [place], | [place], | Hypertension; | | | | [place] [address] | [place] [address] | Hyperlipidemia; | | | | [phone] | [phone] | ASCVD | | | | | | (arteriosclerotic | | | | | | cardiovascular | | | | | | disease); | | | | | | Hypotension | +--------+ + + + + Social [...] + + + | Blood Pressure | 125/57 | 12/14/2013 4:01 PM | | | | | PST | | + + + + + | Pulse | 98 | 12/14/2013 4:01 PM | | | | | PST | | + + + + + | Temperature | - | - | | + + + + + | Respiratory Rate | 18 | 12/14/2013 4:01 PM | | | | | PST | | + + + + + | Oxygen Saturation | - | - | | + + + + + | Inhaled Oxygen | - | - | | | Concentration | | | | + + + + + | Weight | 124.7 kg (275 lb) | 12/14/2013 4:01 PM | | | | | PST | | + + + + + | Height | 190.5 cm (6' 3") | 12/14/2013 4:01 PM | | | | | PST | | + + + + + | Body Mass Index | 34.37 | 12/14/2013 4:01 PM | | | | | PST | | + + + + + documented in this encounter Plan of Treatment +--------+ + + + + | Date | Type | Specialty | Care Team | Description | +--------+ + + + + | 03/16/ | Off-Site | Nephrology | Freddy Sanchez | | | 2019 | Visit | | DO [address] | | | | | | [place] [address] | | | | | | [place] | | | | | | [address] | | | | | | | | +--------+ + + + + | 05/20/ | Office | Cardiology | Yumiko Del Valle, | | | 2019 | Visit | | MD Lupe TYLER | | | | | | [place] | | | | | | [address] | | | | | | | | +--------+ + + + + documented as of this encounter Visit Diagnoses + + | Diagnosis | + + | Light headedness - Primary | + + | Hypertension Unspecified essential hypertension | + + | Hyperlipidemia Other and unspecified hyperlipidemia | + + | ASCVD (arteriosclerotic cardiovascular disease) Unspecified cardiovascular disease | + + | Hypotension Hypotension, unspecified | + + documented in this encounter
--- OUTSIDE RECORDS SUMMARY | ~2019-10-22 | XMS | Encounter Summary ---
Demographics + + + | Address | [address] | | | [place] [address] | + + + | Home Phone | | + + + | Preferred Language | Unknown | + + + | Marital Status | Single | + + + | Anabaptism Affiliation | Unknown | + + + | Race | Unknown | + + + | Ethnic Group | Unknown | + + + Author + + + | Author | [facility] | | | and [place] | + + + | Organization | [facility] | | | and [place] | + + + | Address | Unknown | + + + | Phone | Unavailable | + + + Support + + + + + | Name | Relationship | Address | Phone | + + + + + | Hi Dawn | ECON | [place] | | | | | [address] | | + + + + + | Atif Delgadillo | ECON | [place], [place] | | | | | [address] | | + + + + + | Caleb Dawn | ECON | Unknown | | + + + + + Care Team Providers + +------+ + | Care Collateral Clerk Name | Role | Phone | + +------+ + PCP | Unavailable | + +------+ + Encounter Details +--------+ + + + + | Date | Type | Department | Care Team | Description | +--------+ + + + + | 01/20/ | Orders Only | [facility] | Imani Whitney, | Chronic kidney | | 2013 | | NEPHROLOGY [address] | RN | disease, stage III | | | | [facility] [address] | | (moderate); Type II | | | | [place] | | or unspecified type | | | | [address] | | diabetes mellitus | | | | [phone] | | with renal | | | | | | manifestations, not | | | | | | stated as | | | | | | uncontrolled(250.40) | | | | | | (HCC); Unspecified | | | | | | hypertensive kidney | | | | | | disease with chronic | | | | | | kidney disease | | | | | | stage I through | | | | | | stage IV, or | | | | | | unspecified(403.90) | +--------+ + + + + Social [...] | 03/16/ | Off-Site | Nephrology | JyotiFreddy lucas | | | 2019 | Visit | | DO [address] | | | | | | [place] [address] | | | | | | [place] | | | | | | [address] | | | | | | | | +--------+ + + + + | 05/20/ | Office | Cardiology | Yumiko Del Valle, | | | 2019 | Visit | | MD Lupe TYLER | | | | | | [place] | | | | | | [address] | | | | | | | | +--------+ + + + + documented as of this encounter Visit Diagnoses + + | Diagnosis | + + | Chronic kidney disease, stage III (moderate) ([facility]) Chronic kidney disease, Stage III | | (moderate) | + + | Type II or unspecified type diabetes mellitus with renal manifestations, not stated as | | uncontrolled(250.40) ([facility]) Type II or unspecified type diabetes mellitus [...]
--- OUTSIDE RECORDS SUMMARY | ~2019-10-22 | XMS | Encounter Summary ---
Demographics + + + | Address | [address] | | | [place] [address] | + + + | Home Phone [...] [place] | | | | | [address] | | + + + + + | Atif Delgadillo | ECON | [place] | | | | | [address] | | + + + + + | Caleb Dawn | ECON | Unknown | | + + + + + Care Team Providers + +------+ + | Care Cigar Head Holer Name | Role | Phone | + [...] SHERRILL VALDEZ | | | | | [facility] [place] | [place] [address] | | | | | [address] | [phone] | | | | | [phone] | | | +--------+ + + + [...] [place] | | | | | | [address] | | | | | | | | +--------+ + + + + | 05/20/ | Office | Cardiology | Yumiko Del Valle, | | | 2019 | Visit | | MD [address] | | | | | | [place] | | | | | | [address] | | | | | | | [...] MV A Jordon: 0.82 m/s MV Dec Mcminn: 4.31 m/s2 MV | | | DecT: [...] TR Vmax: 2.64 m/s | | | Interior Specialist: TATUM Authenticated by: [facility] Report | | | Date/Time: 05-12-2018 7:33:45 [...] cmLVIDd: 5.41 cmLVPWd: 1.10 cmLVOT Area: 4.72 wk6POQW Diam: | | 2.45 cm%FS: 40.73 %EF(Teich): [...] (A-L): 29.02 | | ml/m2LAAs A2C: 19.45 [id number] A-L A2C: 61.97 mlLALs A2C: 5.18 cmLAAs A4C: 23.50 | | lr9CITSH A-L A4C: 88.44 mlLALs A4C: 5.30 cmRAAs: 20.57 [id number] A-L: 67.40 | | mlRAESV MOD: 63.69 mlRALs: 5.32 cmTAPSE: 2.43 cmAV maxP.21 mmHgAV meanPG: | | 2.78 mmHgAV Vmax: 1.24 m/Vernon Vmean: 0.77 m/Vernon VTI: 26.17 cmAVA Vmax: 3.51 | | cm2AVA (VTI): 4.30 on4OHKQ (Vmax): 0.00 cm2/m2AVAI (VTI): 0.00 cm2/m2LVOT maxPG: | | 3.42 mmHgLVOT meanP.71 mmHgLVSI Dopp: 43.63 ml/m2LVSV Dopp: 112.56 mlLVOT | | Vmax: 0.92 m/sLVOT Vmean: 0.60 m/sLVOT VTI: 23.80 cmMV A Jordon: 0.82 m/sMV Dec | | Mcminn: 4.31 m/s2MV DecT: 185.71 msMV E Jordon: 0.80 m/sMV E/A Ratio: 0.96MV PHT: | | 53.85 msMVA By PHT: 4.08 bw1Fqpiue e': 0.05 m/sSeptal E/e': 15.59Lateral e': | | 0.08 m/sLateral E/e': 9.90PV maxP.24 mmHgPV Vmax: 0.55 m/sRAP: 5 mmHgRVSP: | | 32.98 mmHgTR maxP.98 mmHgTR Vmax: 2.64 m/s Interior Specialist: DBSAuthenticated by: | | [facility] Date/Time: 05-12-2018 7:33:45 IMPRESSION: 1. The [...] A Jordon: 0.82 m/s | |MV Dec Mcminn: 4.31 m/s2 | |MV DecT: 185.71 ms [...] |TR Vmax: 2.64 m/s | | | |Interior Specialist: DBS | |Authenticated by: Yumiko Del Valle [...]
--- OUTSIDE RECORDS SUMMARY | ~2019-10-22 | XMS | Encounter Summary ---
Demographics + + + | Address | [address] | | | [place] [address] | + + + | Home Phone [...] [place] | | | | | [address] | | + + + + + | Atif Delgadillo | ECON | [place], [place] | | | | | [address] | | + + + + + | Caleb Dawn | ECON | Unknown | | + + + + + Care Team Providers + +------+ + | Care Band Instrument Repairer Name | Role | Phone | + [...] | | [address] | [place], [place] [address] | Unspecified | | | | [place], [place] | [place], [place] | hypertensive kidney | | | | [address] | [address] | disease with chronic | | | | [phone] | | kidney disease | | | [...] AM PST Subjective: NEPHROLOGY Patient ID: SERGEI ESPANA is a 68 y.o. male. 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 9. Gout--stable. I don't think today's knee [...] on 12/25/13. Will have him drive to [facility], for Aranesp 60 mcg, SQ, x1 unti [...] see him back on 02/17/14 at [facility], [place], which Dr. Saleh ht agreed to come down for. He will have an H/H, CMP, PO4, lipid profile, PTH, and 24 Hr ur ine 1 week prior to that. CC: Hema English MD documented in thi s encounter Plan of Treatment +--------+ + + + + | Date | Type | Specialty | Care Team | Description | +--------+ + + + + | 03/16/ | Off-Site | Nephrology | Freddy Sanchez | | 2019 | Visit | | DO [address] [place] [address] | | | | | | [place] [address] | | | | | | [place] | | | | | | [address] | | | | | | | | +--------+ + + + + | 05/20/ | Office | Cardiology | Yumiko Del Valle, | | | 2019 | Visit | | MD Lupe TYLER | | | | | | [place] | | | | | | [address] | | | | | | | [...]
--- OUTSIDE RECORDS SUMMARY | ~2019-10-22 | XMS | Encounter Summary ---
Demographics + + + | Address | [address] | | | [place] [address] | + + + | Home Phone | | + + + | Preferred Language | Unknown | + + + | Marital Status | Single | + + + | Restoration Affiliation | Unknown | + + + | Race | Unknown | + + + | Ethnic Group | Unknown | + + + Author + + + | Author | [facility] | | | and [place] | + + + | Organization | [facility] | | | and [place] | + + + | Address | Unknown | + + + | Phone | Unavailable | + + + Support + + + + + | Name | Relationship | Address | Phone | + + + + + | Hi Dawn | ECON | [place] | | | | | [address] | | + + + + + | Atif Delgadillo | ECON | [place], [place] | | | | | [address] | | + + + + + | Caleb Dawn | ECON | Unknown | | + + + + + Care Team Providers + +------+ + | Care Collection Specialist Name | Role | Phone | + +------+ + PCP | Unavailable | + +------+ + Encounter Details +--------+ + + + + | Date | Type | Department | Care Team | Description | +--------+ + + + + | 12/14/ | Hospital | [facility] | William Marcano, | | | 2013 - | Encounter | MED CTR SUR[facility] | [address] | | | | | [address] | [place] | | | 12/19/ | | [place] [address] | [address] | | | 2013 | | [phone] | | | | | | | Freddy Sanchez | | | | | | DO [address] | | | | | | [address] | | | | | | [place] | | | | | | [address] | | | | | | | [...] + + documented as of this encounter Discharge Summaries Freddy Sanchez DO - 12/19/2013 2:02 [place] [address] Patient Name: SERGEI ESPANA Amy Provider: Freddy Sanchez DO Unit #: [id number] Locat ion: 3ES : 1945 ADMISSION DATE: 12/14/2013 DISCHARGE DATE: 12/19/2013 DISCHARGE DIAGNOSES 1. ANEMIA, SECONDARY TO UPPER GASTROINTESTINAL BLEEDING FROM A DUODENAL ULCER on upper endo scopy, IMPROVED. 2. HYPOTENSION, SECONDARY TO #1. 3. CHRONIC KIDNEY DISEASE, STAGE III SECONDARY TO DIABETIC NEPHROPATHY - SERUM CREATININE i s below baseline. 4. HISTORY OF HYPERLIPIDEMIA. 5. ARTERIOSCLEROTIC CARDIOVASCULAR DISEASE, STATUS POST LEFT CAROTID ENDARTERECTOMY, 2005. 6. CHEST PAIN, LIKELY SECONDARY TO DUODENAL ULCER AND ANEMIA - Regadenoson Cardiolite study was negative. PROCEDURES 1. EGD, 12/16/2013, Dr. Josef Englihs, bleeding gastric erosions which were biopsied, one 4 m m nonbleeding duodenal ulcer. 2. Colonoscopy 12/16/2013: No polyps, GI bleeding, or masses. 3. Echocardiogram, 12/15/2013: LVEF 75%, normal wall thickness. No mention of wall motion abnormalities. 4. Regadenoson Cardiolite stress test, 12/09/2013, no EKG changes or reproduction of chest pain with infusion of Regadenoson. LVEF=61%, normal perfusion with no evidence of reversibl e defects. HOSPITAL COURSE: This is a very pleasant 68-year-old white male who was known to me once pr eviously from outpatient CKD Clinic. He has been CKD stage III secondary to diabetic nephr opathy. He has a year history of type 2 DM. Due to cerebrovascular disease, he had been on aspirin/Plavix. He was driven to the ER by some friends complaining of nonspecific malaise , weakness, some lightheadedness. He denied vomiting, hematemesis, or melena. His initial b lood pressure was low on arrival 84/50 mmHg. Responded to 2 liters of normal saline. He den ied epigastric pain at that time. Also, his SCR was increased from his previous baseline of 2.47, at last discharge 23.2 mg/dL. Unfortunately, the following day, he had a drop in hemoglobin to 6.2. During this time, he developed diaphoresis, blood pressure down to 70/40, which improved with fluid bolus. After he was given 2 units of packed cells, he felt better. EKG was obtained, which showed sinus tachycardia with no acute ST-T wave changes. Basically, he continued to have waxing and wa yamilka anemia which ultimately required 5 units of packed red cells. His stools were all heme -positive. Dr. Josef English was consulted and he promptly came by and he was prepped for colonoscopy an d EGD. After 3 separate troponins were negative, he was taken to the GI lab on 12/16/2013 which revealed the above nonbleeding duodenal ulcer. Also, he had some gastric erosions. He had a negative colonoscopy. At that point, his hemoglobin plateaued around between 7.5 and 7.6. In the midst of this, he was also started on SQ EPO for his anemia secondary to CKD and als o, he has some relative iron deficiency, and he was given a series of iron boluses daily x4 days. His antihypertensives were held. Actually, his Scr began to albert quite well while he was being given normal saline, in fact , it was 3.2 on admission, but it nadired at 1.51 after the normal saline. This is likely a rtifact due to the crystalloid he was given this admission. He felt dizzy with standing, th erefore, he had to be watched and allowed to collaborate and eventually over time now his h emoglobin has plateaued at 7.9 from a albert of 6.2. He is ambulating in the hallway. He grace ing a solid ADA diet. After receipt of the endoscopy, he was given Carafate in addition to a PPI. It is noteworthy he had a flare of gout the previous week in his left knee and he had been on a prednisone taper. In light of the probably DU, his prednisone was tapered off and his ASA and Plavix were discontinued. Due to recurrent complaints of chest pain, which radiated into both arms, he underwent Card iolite scanning on the above date, which did not show any evidence of fixed or reversible d efects. Actually with a total 5 days of the PPI and in addition of Carafate, his chest pain subsided. It is very conceivable that his chest pain may have been in fact secondary to hi s duodenal ulcer. Again, he is up and ambulating, and feeling better. He is going to be dis charged today. I spoke to Dr. Hema Garza, his primary roller coaster operator. He is agreeable to co-sign his EPO order so that he can get subcu EPO at day surgery at [facility] as I am not on staff there. The dose will be 10,000 SQ weekly to target his hemoglobin 10-11 mg/dL. He is going to have weekly lab at [facility]. I will have a followup appointm ent with him on 12/23/2013. He is going to have a followup appointment with Dr. Garza on 0 01/06/2014. Also, long-term he had been following with Vascular Surgery Department at [facility] and he is agreeable with following up at the Cardiology department here at [facility]. He has an appointment to see Dr. Morataya around 12/30/2013. Due to the recent BEN, I elected to hold his olmesartan indefinitely for now. He may benefi t from that at a later date. BP has been controlled with his beta hector alone, the carved ilol, although he did have metoprolol for a while inpatient. DISCHARGE MEDICATIONS 1. EPO 10,000 subcu every Monday. 2. Sucralfate 1 gram 4 times/day. 3. Omeprazole 40 mg daily. 4. Vicodin 10 mg 1 q.12 hours p.r.n. pain. 5. Allopurinol 200 mg daily. 6. Carvedilol 12.5 mg b.i.d. 7. Calcitriol 0.25 mcg daily. 8. Gemfibrozil 600 mg b.i.d. 9. Niacin 500 mg b.i.d. 10. Linagliptin 5 mg daily. 11. Simvastatin 10 mg daily. The patient was clearly instructed to avoid nonsteroidals, ASA, and Plavix for the next 12 months for now. At the time of discharge, H and H=7.9/21%, BUN was 35, CR 1.51, potassium 4 .3, HCO3 23, glucose was 102. Weight at the time of kaugcxkwh=667 kg. CONDITION ON DISCHARGE: Improved. I greatly appreciate Dr. Josef English and Dr. Logan Baca's help with Mr. Espana's ca se. I appreciate Dr. Garaz's help with his outpatient EPO injections. DICTATED BY: Freddy Sanchez DO Nephrology JOB #: [id number] EXT JOB #:[id number] cc: MD Josef Zavala MD Suwong Wongsuwan, MD, FACC, FACP, FASE, FASNC <<Signature on File>> Freddy Sanchez DO12/23/13 1228 <Electronically signed by Freddy Sanchez DO> documented in t his encounter Medications at Time of Discharge + + + +---------+ + + | Medication | Sig | Dispensed | Refills | Start | End Date | | | | | | Date | | + + + +---------+ + + | allopurinol | Take 100 mg by mouth | 30 | 0 | 12/09/19 | | | (ZYLOPRIM) 100 mg | 2 times daily. | tablet | | 14 | 4 | | tablet | | | | | | + + + +---------+ + + | calcitRIOL | Take 1 capsule by | 90 | 4 | 09/05/20 | | | (ROCALTROL) 0.5 MCG | mouth Daily. | capsule | | 13 | 4 | | capsuleIndications: | | | | | | | Chronic kidney | | | | | | | disease, stage III | | | | | | | (moderate) ([facility]), | | | | | | | Unspecified [...] | | | | | | Type II or | | | | | | | unspecified type | | | | | | | diabetes mellitus | | | | | | | with renal | | | | | | | manifestations, not | | | | | | | stated as | | | | | | | uncontrolled(250.40) | | | | | | | (HCC), Other and | | | | | | | unspecified | | | | | | | hyperlipidemia | | | | | | + + + +---------+ + + | carvedilol (COREG) | Take 1 tablet by | 60 | 3 | 12/09/19 | | | 12.5 mg tablet | mouth 2 times daily | tablet | | 14 | 4 | | | (with breakfast & | | | | | | | dinner). | | | | | + + + +---------+ + + | furosemide (LASIX) | --On hold. | 30 | 11 | 12/19/19 | | | 40 mg | | tablet | | 14 | 4 | | tabletIndications: | | | | | | | Chronic kidney | | | | | | | disease, stage III | | | | | | | (moderate) ([facility]), | | | | | | | Unspecified [...] | | | | | | Type II or | | | | | | | unspecified type | | | | | | | diabetes mellitus | | | | | | | with renal | | | | | | | manifestations, not | | | | | | | stated as | | | | | | | uncontrolled(250.40) | | | | | | | ([facility]), Other and | | | | | | | unspecified | | | | | | | hyperlipidemia | | | | | | + + + +---------+ + + | gemfibrozil | Take 600 mg by mouth | | 0 | | | | (LOPID) 600 mg | 2 times daily | | | | 4 | | tablet | (before meals). | | | | | + + + +---------+ + + | Linagliptin | Take 5 mg by mouth | | 0 | | | | (TRADJENTA) 5 MG | Daily. | | | | 4 | | TABS | | | | | | + + + +---------+ + + | | Take 1 tablet by | | 0 | | | | loratadine-pseudoePH | mouth as needed. | | | | 4 | | EDrine (CLARITIN-D | | | | | | | 12 HOUR) 5-120 mg | | | | | | | per tablet | | | | | | + + + +---------+ + + | mometasone | Apply topically | | 0 | | | | (ELOCON) 0.1 % cream | Daily as needed. | | | | 4 | + + + +---------+ [...] + + + +---------+ + + | simvastatin | Take 10 mg by mouth | | 0 | | | | (ZOCOR) 10 mg tablet | nightly. | | | | 4 | + + + +---------+ [...] | | (LAMISIL) 250 MG | Daily. | | | | 4 | | tablet | | [...] | Visit | | M, DO [address] | | | | | | [place] [address] | | | | | | [place] | | | | | | [address] | | | | | | | | +--------+ + + + + | 05/20/ | Office | Cardiology | Yumiko Del Valle, | | | 2020 | Visit | | MD [address] | | | | | | [place] | | | | | | [address] | | | | | | | | +--------+ + + + + documented as of this encounter Procedures + +--------+ + + + | Procedure Name | Priori | Date/Time | Associated Diagnosis | Comments | | | ty | | | | + +--------+ + + + | POC GLUCOSE | Routin | 12/19/2013 | | Results for this | | | e | 11:40 AM | | procedure are in the | | | | PST | | results section. | + +--------+ + + + | POC GLUCOSE | Routin | 12/19/2013 | | Results for this | | | e | 6:29 AM | | procedure are in the | | | | PST | | results section. | + +--------+ + + + | POC GLUCOSE | Routin | 12/18/2013 | | Results for this | | | e | 5:21 PM | | procedure are in the | | | | PST | | results section. | + +--------+ + + + | POC GLUCOSE | Routin | 12/18/2013 | | Results for this | | | e | 12:18 PM | | procedure are in the | | | | PST | | results section. | + +--------+ + + + | POC GLUCOSE | Routin | 12/18/2013 | | Results for this | | | e | 6:51 AM | | procedure are in the | | | | PST | | results section. | + +--------+ + + + | HEMOGLOBIN AND | Routin | 12/18/2013 | | Results for this | | HEMATOCRIT | e | 6:39 AM | | procedure are in the | | | | PST | | results section. | + +--------+ + + + | POC GLUCOSE | Routin | 12/17/2013 | | Results for this | | | e | 8:22 PM | | procedure are in the | | | | PST | | results section. | + +--------+ + + + | POC GLUCOSE | Routin | 12/17/2013 | | Results for this | | | e | 5:01 PM | | procedure are in the | | | | PST | | results section. | + +--------+ + + + | NM NUCLEAR STRESS | Routin | 12/17/2013 | | Results for this | | TEST (PHARMACOLOGIC | e | 1:07 PM | | procedure are in the | | - VASODILATOR) | | PST | | results section. | + +--------+ + + + | POC GLUCOSE | Routin | 12/17/2013 | | Results for this | | | e | 11:28 AM | | procedure are in the | | | | PST | | results section. | + +--------+ + + + | CBC NO DIFFERENTIAL | Routin | 12/17/2013 | | Results for this | | | e | 5:47 AM | | procedure are in the | | | | PST | | results section. | + +--------+ + + + | BASIC METABOLIC | Routin | 12/17/2013 | | Results for this | | PANEL | e | 5:47 AM | | procedure are in the | | | | PST | | results section. | + +--------+ + + + | CREATININE | Routin | 12/17/2013 | | Results for this | | CLEARANCE, TEST | e | 12:44 AM | | procedure are in the | | | | PST | | results section. | + +--------+ + + + | PROTEIN, URINE, 24HR | Routin | 12/17/2013 | | Results for this | | | e | 12:44 AM | | procedure are in the | | | | PST | | results section. | + +--------+ + + + | POC GLUCOSE | Routin | 12/16/2013 | | Results for this | | | e | 10:02 PM | | procedure are in the | | | | PST | | results section. | + +--------+ + + + | POC GLUCOSE | Routin | 12/16/2013 | | Results for this | | | e | 5:43 PM | | procedure are in the | | | | PST | | results section. | + +--------+ + + + | TROPONIN I | Routin | 12/16/2013 | | Results for this | | | e | 4:32 PM | | procedure are in the | | | | PST | | results section. | + +--------+ + + + | HEMOGLOBIN AND | Routin | 12/16/2013 | | Results for this | | HEMATOCRIT | e | 4:32 PM | | procedure are in the | | | | PST | | results section. | + +--------+ + + + | HELICOBACTER PYLORI | Routin | 12/16/2013 | | Results for this | | BIOPSY | e | 2:01 PM | | procedure are in the | | | | PST | | results section. | + +--------+ + + + | CREATININE | Routin | 12/16/2013 | | Results for this | | | e | 11:52 AM | | procedure are in the | | | | PST | | results section. | + +--------+ + + + | POC GLUCOSE | Routin | 12/16/2013 | | Results for this | | | e | 11:21 AM | | procedure are in the | | | | PST | | results section. | + +--------+ + + + | POC GLUCOSE | Routin | 12/16/2013 | | Results for this | | | e | 8:01 AM | | procedure are in the | | | | PST | | results section. | + +--------+ + + + | ECHO COMPLETE | Routin | 12/16/2013 | | Results for this | | | e | 6:50 AM | | procedure are in the | | | | PST | | results section. | + +--------+ + + + | TROPONIN I | Routin | 12/16/2013 | | Results for this | | | e | 5:19 AM | | procedure are in the | | | | PST | | results section. | + +--------+ + + + | HEMOGLOBIN AND | Routin | 12/16/2013 | | Results for this | | HEMATOCRIT | e | 5:19 AM | | procedure are in the | | | | PST | | results section. | + +--------+ + + + | RENAL FUNCTION PANEL | Routin | 12/16/2013 | | Results for this | | | e | 5:19 AM | | procedure are in the | | | | PST | | results section. | + +--------+ + + + | POC GLUCOSE | Routin | 12/15/2013 | | Results for this | | | e | 9:30 PM | | procedure are in the | | | | PST | | results section. | + +--------+ + + + | OCCULT BLOOD, STOOL, | Routin | 12/15/2013 | | Results for this | | FOR COLORECTAL | e | 5:29 PM | | procedure are in the | | NEOPLASM SCREENING | | PST | | results section. | + +--------+ + + + | POC GLUCOSE | Routin | 12/15/2013 | | Results for this | | | e | 5:07 PM | | procedure are in the | | | | PST | | results section. | + +--------+ + + + | XR CHEST AP PORTABLE | Routin | 12/15/2013 | | Results for this | | | e | 12:53 PM | | procedure are in the | | | | PST | | results section. | + +--------+ + + + | POC GLUCOSE | Routin | 12/15/2013 | | Results for this | | | e | 11:18 AM | | procedure are in the | | | | PST | | results section. | + +--------+ + + + | RULE OUT MYOCARDIAL | Routin | 12/15/2013 | | Results for this | | INFARCTION | e | 5:57 AM | | procedure are in the | | | | PST | | results section. | + +--------+ + + + | CBC NO DIFFERENTIAL | Routin | 12/15/2013 | | Results for this | | | e | 5:57 AM | | procedure are in the | | | | PST | | results section. | + +--------+ + + + | RENAL FUNCTION PANEL | Routin | 12/15/2013 | | Results for this | | | e | 5:57 AM | | procedure are in the | | | | PST | | results section. | + +--------+ + + + | POC GLUCOSE | Routin | 12/14/2013 | | Results for this | | | e | 11:50 PM | | procedure are in the | | | | PST | | results section. | + +--------+ + + + | POC GLUCOSE | Routin | 12/14/2013 | | Results for this | | | e | 5:10 PM | | procedure are in the | | | | PST | | results section. | + +--------+ + + + | RULE OUT MYOCARDIAL | Routin | 12/14/2013 | | Results for this | | INFARCTION | e | 3:09 PM | | procedure are in the | | | | PST | | results section. | + +--------+ + + + | CBC WITH | Routin | 12/14/2013 | | Results for this | | DIFFERENTIAL | e | 3:09 PM | | procedure are in the | | | | PST | | results section. | + +--------+ + + + | RENAL FUNCTION PANEL | Routin | 12/14/2013 | | Results for this | | | e | 3:09 PM | | procedure are in the | | | | PST | | results section. | + +--------+ + + + | CULTURE, MRSA | Routin | 12/14/2013 | | | | | e | 2:03 PM | | | | | | PST | | | + +--------+ + + + | HEMOGLOBIN AND | Routin | 12/14/2013 | | Results for this | | HEMATOCRIT | e | 2:02 PM | | procedure are in the | | | | PST | | results section. | + +--------+ + + + | POC GLUCOSE | Routin | 12/14/2013 | | Results for this | | | e | 12:47 PM | | procedure are in the | | | | PST | | results section. | + +--------+ + + + | POC GLUCOSE | Routin | 12/14/2013 | | Results for this | | | e | 10:36 AM | | procedure are in the | | | | PST | | results section. | + +--------+ + + + | TYPE AND SCREEN | Routin | 12/14/2013 | | Results for this | | | e | 8:53 AM | | procedure are in the | | | | PST | | results section. | + +--------+ + + + | CROSSMATCH (IN ML) | Routin | 12/14/2013 | | Results for this | | | e | 7:56 AM | | procedure are in the | | | | PST | | results section. | + +--------+ + + + | CROSSMATCH (IN ML) | Routin | 12/14/2013 | | Results for this | | | e | 7:56 AM | | procedure are in the | | | | PST | | results section. | + +--------+ + + + | CROSSMATCH (IN ML) | Routin | 12/14/2013 | | Results for this | | | e | 7:56 AM | | procedure are in the | | | | PST | | results section. | + +--------+ + + + | CROSSMATCH (IN ML) | Routin | 12/14/2013 | | Results for this | | | e | 7:56 AM | | procedure are in the | | | | PST | | results section. | + +--------+ + + + | CROSSMATCH (IN ML) | Routin | 12/14/2013 | | Results for this | | | e | 7:56 AM | | procedure are in the | | | | PST | | results section. | + +--------+ + + + | IRON PROFILE, | Routin | 12/14/2013 | | Results for this | | (FE+IBC+FERR+%SAT) | e | 6:44 AM | | procedure are in the | | | | PST | | results section. | + +--------+ + + + | TROPONIN I | Routin | 12/14/2013 | | Results for this | | | e | 6:44 AM | | procedure are in the | | | | PST | | results section. | + +--------+ + + + | CBC WITH | Routin | 12/14/2013 | | Results for this | | DIFFERENTIAL | e | 6:44 AM | | procedure are in the | | | | PST | | results section. | + +--------+ + + + | RENAL FUNCTION PANEL | Routin | 12/14/2013 | | Results for this | | | e | 6:44 AM | | procedure are in the | | | | PST | | results section. | + +--------+ + + + | POC GLUCOSE | Routin | 12/14/2013 | | Results for this | | | e | 5:56 AM | | procedure are in the | | | | PST | | results section. | + +--------+ + + + | MICROALBUMIN, URINE | Routin | 12/13/2013 | | Results for this | | | e | 10:43 PM | | procedure are in the | | | | PST | | results section. | + +--------+ + + + | SODIUM, URINE, | Routin | 12/13/2013 | | Results for this | | RANDOM | e | 10:43 PM | | procedure are in the | | | | PST | | results section. | + +--------+ + + + | OSMOLALITY, URINE | Routin | 12/13/2013 | | Results for this | | | e | 10:43 PM | | procedure are in the | | | | PST | | results section. | + +--------+ + + + | CREATININE, URINE, | Routin | 12/13/2013 | | Results for this | | RANDOM | e | 10:43 PM | | procedure are in the | | | | PST | | results section. | + +--------+ + + + | PARATHYROID HORMONE, | Routin | 12/13/2013 | | Results for this | | INTACT | e | 7:03 PM | | procedure are in the | | | | PST | | results section. | + +--------+ + + + | HEMOGLOBIN A1C | Routin | 12/13/2013 | | Results for this | | | e | 7:02 PM | | procedure are in the | | | | PST | | results section. | + +--------+ + + + | CBC WITH | Routin | 12/13/2013 | | Results for this | | DIFFERENTIAL | e | 5:19 PM | | procedure are in the | | | | PST | | results section. | + +--------+ + + + | CK TOTAL | Routin | 12/13/2013 | | Results for this | | | e | 5:19 PM | | procedure are in the | | | | PST | | results section. | + +--------+ + + + | COMPREHENSIVE | Routin | 12/13/2013 | | Results for this | | METABOLIC PANEL | e | 5:19 PM | | procedure are in the | | | | PST | | results section. | + +--------+ + + + documented in this encounter Results POC Glucose (12/19/2013 11:40 AM PST) + +---------+ + + + | Component | Value | Ref Range | Performed | Pathologist | | | | | At | Signature | + +---------+ + + + | Glucose, | 160 (H) | 79 - 150 md/dL | [facility] | | | [facility] | | | [facility] | | [...] + | [facility] | [address] | [place] | [phone] | | [facility] | | [address] | | | - LABORATORY | | | | + + + + + | [facility] | [address] | [place] | | | [facility] | | [address] | | | - LABORATORY | | | | + + + + + POC Glucose (12/19/2013 6:29 AM PST) + +-------+ + + + | Component | Value | Ref Range | Performed | Pathologist | | | | | At | Signature | + +-------+ + + + | Glucose, | 109 | 79 - 150 md/dL | [facility] | | | POC | | | [facility] | | | | | [...] + | [facility] | [address] | [place] | [phone] | | [facility] | | [address] | | | - LABORATORY | | | | + + + + + | [facility] | [address] | [place] | | | [facility] | | [address] | | | - LABORATORY | | | | + + + + + POC Glucose (12/18/2013 5:21 PM PST) + +-------+ + + + | Component | Value | Ref Range | Performed | Pathologist | | | | | At | Signature | + +-------+ + + + | Glucose, | 109 | 79 - 150 md/dL | [facility] | | | POC | | | [facility] | | | | | [...] + | [facility] | [address] | [place], [place] | [phone] | | [facility] | | [address] | | | - LABORATORY | | | | + + + + + | [facility] | [address] | [place], [place] | | | [facility] | | [address] | | | - LABORATORY | | | | + + + + + POC Glucose (12/18/2013 12:18 PM PST) + +-------+ + + + | Component | Value | Ref Range | Performed | Pathologist | | | | | At | Signature | + +-------+ + + + | Glucose, | 120 | 79 - 150 md/dL | [facility] | | | POC | | | [facility] | | | | | | [...] + + | [facility] | [address] | [place] | [phone] | | [facility] | | [address] | | | - LABORATORY | | | | + + + + + | [facility] | [address] | [place] | | | [facility] | | [address] | | | - LABORATORY | | | | + + + + + POC Glucose (12/18/2013 6:51 AM PST) + +-------+ + + + | Component | Value | Ref Range | Performed | Pathologist | | | | | At | Signature | + +-------+ + + + | Glucose, | 99 | 79 - 150 md/dL | [facility] | | | POC | | | [facility] | | | | | [...] + | [facility] | [address] | [place] | [phone] | | [facility] | | [address] | | | - LABORATORY | | | | + + + + + | [facility] | [address] | [place], [place] | | | [facility] | | [address] | | | - LABORATORY | | | | + + + + + Hemoglobin and Hematocrit (12/18/2013 6:39 AM PST) + + + + + + | Component | Value | Ref Range | Performed | Pathologist | | | | | At | Signature | + + + + + + | Hemoglobin | 7.9 (L) | 13.5 - 18.0 | [facility] | | | | | gm/dL | [facility] | | | | | | MEDICAL | | | | | | CENTER - | | | | | | LABORATORY | | + + + + + + | Hematocrit | 21.1 (L) | 40.0 - 51.0 % | [facility] | | | | | [...] + | [facility] | [address] | [place] | [phone] | | [facility] | | [address] | | | - LABORATORY | | | | + + + + + | [facility] | [address] | [place] | | | [facility] | | [address] | | | - LABORATORY | | | | + + + + + POC Glucose (12/17/2013 8:22 PM PST) + +---------+ + + + | Component | Value | Ref Range | Performed | Pathologist | | | | | At | Signature | + +---------+ + + + | Glucose, | 180 (H) | 79 - 150 md/dL | [facility] | | | POC | | | [facility] | | [...] + | [facility] | [address] | [place] | [phone] | | [facility] | | [address] | | | - LABORATORY | | | | + + + + + | [facility] | [address] | [place] | | | [facility] | | [address] | | | - LABORATORY | | | | + + + + + POC Glucose (12/17/2013 5:01 PM PST) + +-------+ + + + | Component | Value | Ref Range | Performed | Pathologist | | | | | At | Signature | + +-------+ + + + | Glucose, | 120 | 79 - 150 md/dL | [facility] | | | POC | | | [facility] | | | | | | [...] | + + + + + | [facility] | [address] | [place], [place] | [phone] | | [facility] | | [address] | | | - LABORATORY | | | | + + + + + | [facility] | [address] | [place], [place] | | | [facility] | | [address] | | | - LABORATORY | | | | + + + + + NM Nuclear Stress Test (Vasodilator) (12/17/2013 1:07 PM PST) + + | Specimen | + + | | + + + + + | Narrative | Performed At | + + + | [facility] | [facility] | | Department [address] [facility], [place] | [facility] | | [ rep ct [address]] [ rep [facility] | | [facility]] Signed | - IMAGING | | | | | Patient Name: SERGEI ESPANA | | | Physician: KAILEY : 1945 Age: 68 Sex: M Unit | | | #: [id number] Exam Date: 12/17/13 Location: | | | 3ES 321-1 Report #: [id number] Page: | | | %(RAD)RES..mtdd.print.filter("pg") of %(RAD) | | | RES..mtdd.print.filter("tpg") | | | | | | Accession Number: [id number] | | | REGADENOSON SESTAMIBI STRESS, 12/17/2013 FINDINGS: In | | | a supine position, 0.4 mg Regadenoson was infused intravenously over | | | 10 seconds. Blood pressure and EKG were monitored every 1 minute. | | | 5 mL normal saline was utilized to flush the IV line. 20 seconds | | | later, 10.2 mCi Sestamibi was given intravenously. Patient was | | | taken to nuclear medicine department. SPECT myocardial perfusion | | | imaging was acquired with wall motion analysis. Rest imaging was | | | performed 33.7 mCi Sestamibi intravenous injection. Repeated SPECT | | | myocardial perfusion imaging was acquired with wall motion analysis. | | | HEMODYNAMICS: Heart rate baseline 78 bpm. Peak 94 | | | bpm. Blood pressure baseline 158/71 mmHg. Peak 113/53 mmHg. | | | EKG baseline underlying a normal sinus rhythm. Normal EKG. Peak | | | unchanged. SIDE EFFECTS: None. | | | ARRHYTHMIA: None. REGADENOSON SESTAMIBI MYOCARDIAL | | | PERFUSION IMAGING RESULTS: The Regadenoson sestamibi | | | tomographic images, reviewed without the attenuation compensation | | | resolution , revealed a normal myocardial perfusion pattern as seen | | | in short axis, vertical long axis, and horizontal long axis | | | projections. The left ventricular cavity is normal. The rest imaging | | | is also normal. Gated SPECT reveals a normal left | | | ventricular wall thickness and motion. Preserved left ventricular | | | systolic function. LVEF by gated SPECT is 61%. | | | IMPRESSION: 1. REGADENOSON EKG IS NEGATIVE. 2. A | | | NORMAL REGADENOSON SESTAMIBI MYOCARDIAL PERFUSION IMAGING STUDY. | | | NORMAL LEFT VENTRICULAR SIZE, WALL THICKNESS AND MOTION. PRESERVED | | | LEFT VENTRICULAR SYSTOLIC FUNCTION. LVEF BY GATED SPECT IS 61%. | | | Dictated Date/Time: 12/17/2013 13:07 Transcribed | | | Date/Time: 12/17/2013 13:39 Box Loader: | | | <<Signature on File>> | | | Suwong | | | MD [facility] FASE12/17/13 [id number] <Electronically signed by | | | Logan Baca MD, [facility], [facility], FASE, FASNC> Logan | | | MD [facility] FASE 12/17/13 1307 Box Loader: [employer] | | | [id number]/28/[id number] Freddy Sanchez DO | | | | | + + + + + + + + | Performing | Address | City/State/Zipcode | Phone Number | | Organization | | | | + + + + + | [facility] | [address] | [place] | [phone] | | [facility] | | [address] | | | - IMAGING | | | | + + + + + POC Glucose (12/17/2013 11:28 AM PST) + +---------+ + + + | Component | Value | Ref Range | Performed | Pathologist | | | | | At | Signature | + +---------+ + + + | Glucose, | 185 (H) | 79 - 150 md/dL | [facility] | | | POC | | | [facility] | | [...] + | [facility] | [address] | [place] | [phone] | | [facility] | | [address] | | | - LABORATORY | | | | + + + + + | [facility] | [address] | [place] | | | [facility] | | [address] | | | - LABORATORY | | | | + + + + + Basic Metabolic Panel (12/17/2013 5:47 AM PST) + + + + + + | Component | Value | Ref Range | Performed | Pathologist | | | | | At | Signature | + + + + + + | Glucose | 102 | 70 - 109 mg/dL | [facility] | | | | | | [facility] | | | | | | MEDICAL | | | | | | CENTER - | | | | | | LABORATORY | | + + + + + + | Calcium | 8.4 | 8.3 - 10.5 | [facility] | | | | | mg/dL | [facility] | | | | | | MEDICAL | | | | | | CENTER - | | | | | | LABORATORY | | + + + + + + | BUN | 35 (H) | 7 - 18 mg/dL | [facility] | | | | | | [facility] | | | | | | MEDICAL | | | | | | CENTER - | | | | | | LABORATORY | | + + + + + + | Creatinine | 1.51 (H) | 0.60 - 1.30 | [facility] | | | | | mg/dL | [facility] | | | | | | MEDICAL | | | | | | CENTER - | | | | | | LABORATORY | | + + + + + + | Estimated | 46 (L)Comment: For | >60 mL/min/A | [facility] | | | GFR | -Americans, | | [facility] | | | | please multiply the | | MEDICAL | | | | result by 1.210 | | CENTER - | | | | This is an estimated | | LABORATORY | | | | GFR and is based on a | | | | | | standard adult | | | | | | body mass (A=1.73m2) and | | | | | | serum creatinine | | | | + + + + + + | BUN/Creatin | 23.2 (H) | 12 - 20 | [facility] | | | ine Ratio | | | [facility] | | | | | | MEDICAL | | | | | | CENTER - | | | | | | LABORATORY | | + + + + + + | Na | 142 | 136 - 149 mEq/L | [facility] | | | | | [facility] | | | | | | MEDICAL | | | | | | CENTER - | | | | | | LABORATORY | | + + + + + + | K | 4.3 | 3.5 - 5.1 mEq/l | [facility] | | | | | | [facility] | | | | | | MEDICAL | | | | | | CENTER - | | | | | | LABORATORY | | + + + + + + | Cl | 114 (H) | 98 - 109 mEq/l | [facility] | | | | | | [facility] | | | | | | MEDICAL | | | | | | CENTER - | | | | | | LABORATORY | | + + + + + + | CO2 | 23 (L) | 24 - 31 mEq/L | [facility] | | | | | | [facility] | | | | | | MEDICAL | | | | | | CENTER - | | | | | | LABORATORY | | + + + + + + | Anion Gap | 9.3 | 6.0 - 17.0 | [facility] | | | | | | [facility] [...] + | [facility] | [address] | [place] | [phone] | | [facility] | | [address] | | | - LABORATORY | | | | + + + + + | [facility] | [address] | [place] | | | [facility] | | [address] | | | - LABORATORY | | | | + + + + + CBC no Differential (12/17/2013 5:47 AM PST) + + + + + + | Component | Value | Ref Range | Performed | Pathologist | | | | | At | Signature | + + + + + + | WBC | 6.1 (A) | 4.0 - 11.0 K/uL | [facility] | | | | | | [facility] | | | | | | MEDICAL | | | | | | CENTER - | | | | | | LABORATORY | | + + + + + + | RBC | 2.35 (L) | 4.30 - 5.70 | [facility] | | | | | M/uL | [facility] | | | | | | MEDICAL | | | | | | CENTER - | | | | | | LABORATORY | | + + + + + + | Hemoglobin | 7.5 (LL)Comment: @VALUE | 13.5 - 18.0 | [facility] | | | | CONSISTENT WITH PREVIOUS | gm/dL | [facility] | | | | RESULTS | | MEDICAL | | | | | | CENTER - | | | | | | LABORATORY | | + + + + + + | Hematocrit | 21.4 (L) | 40.0 - 51.0 % | [facility] | | | | | | [facility] | | | | | | MEDICAL | | | | | | CENTER - | | | | | | LABORATORY | | + + + + + + | MCV | 91.2 | 83.0 - 101.0 fL | [facility] | | | | | | [facility] | | | | | | MEDICAL | | | | | | CENTER - | | | | | | LABORATORY | | + + + + + + | MCH | 32.1 | 28.0 - 35.0 pg | [facility] | | | | | | [facility] | | | | | | MEDICAL | | | | | | CENTER - | | | | | | LABORATORY | | + + + + + + | MCHC | 35.2 | 32.0 - 36.0 | [facility] | | | | | g/dL | [facility] | | | | | | MEDICAL | | | | | | CENTER - | | | | | | LABORATORY | | + + + + + + | RDW-CV | 14.8 | <15.0 % | [facility] | | | | | | [facility] | | | | | | MEDICAL | | | | | | CENTER - | | | | | | LABORATORY | | + + + + + + | Platelet | 113 (L) | 140 - 440 K/uL | [facility] | | | Count | | | [facility] | | | | | | MEDICAL | | | | | | CENTER - | | | | | | LABORATORY | | + + + + + + | SUSPECTED | 1 (H)Comment: TEST | | [facility] | | | PROBLEM IS: | REPEATED, CRITICAL | | [facility] | | | | RESULT-PHONE RESULTS | | MEDICAL | | | | [...] + | [facility] | [address] | [place] | [phone] | | [facility] | | [address] | | | - LABORATORY | | | | + + + + + | [facility] | [address] | [place] | | | [facility] | | [address] | | | - LABORATORY | | | | + + + + + Protein, Urine, 24Hr (12/17/2013 12:44 AM PST) + + + + + + | Component | Value | Ref Range | Performed | Pathologist | | | | | At | Signature | + + + + + + | Collection | 24 | hours | [facility] | | | Duration | | | [facility] | | | | | | MEDICAL | | | | | | CENTER - | | | | | | LABORATORY | | + + + + + + | Urine | 4,170 | mL | [facility] | | | Volume | | | [facility] | | | | | | MEDICAL | | | | | | CENTER - | | | | | | LABORATORY | | + + + + + + | Protein, | <100Comment: 24 HOUR | <100 mg/24hr | [facility] | | | Urine | PROTEIN IS NOT | | [facility] | | | (mg/24hr) | CALCULATED BECAUSE | | MEDICAL | | | | MEASURED VALUE IS | | CENTER - | | | | BELOW THE QUANTIFIABLE | | LABORATORY | | | | RANGE. | | | | + + + + + + + + | Specimen | + + | | + + + + + + + | Performing | Address | City/State/Zipcode | Phone Number | | Organization | | | | + + + + + | [facility] | [address] | [place] | [phone] | | [facility] | | [address] | | | - LABORATORY | | | | + + + + + | [facility] | [address] | [place], [place] | | | [facility] | | [address] | | | - LABORATORY | | | | + + + + + Creatinine Clearance, Test (12/17/2013 12:44 AM PST) + + + + + + | Component | Value | Ref Range | Performed | Pathologist | | | | | At | Signature | + + + + + + | Collection | 24 | hours | [facility] | | | Duration | | | [facility] | | | | | | MEDICAL | | | | | | CENTER - | | | | | | LABORATORY | | + + + + + + | Urine | 4170 | mL | [facility] | | | Volume | | | [facility] | | | | | | MEDICAL | | | | | | CENTER - | | | | | | LABORATORY | | + + + + + + | Creatinine | 1.74 (H) | 0.60 - 1.30 | [facility] | | | | | mg/dL | [facility] | | | | | | MEDICAL | | | | | | CENTER - | | | | | | LABORATORY | | + + + + + + | Weight, lbs | 277 | pounds | [facility] | | | | | | [facility] | | | | | | MEDICAL | | | | | | CENTER - | | | | | | LABORATORY | | + + + + + + | HEIGHT | 75 | inches | [facility] | | | (INCHES) | | | [facility] | | | (REF) | | | MEDICAL | | | | | | CENTER - | | | | | | LABORATORY | | + + + + + + | Creatinine, | 1.90Comment: THE | 0.6 - 2.7 | [facility] | | | Urine | REFERENCE RANGES GIVEN | gm/24hr | [facility] | | | (mg/24hr) | ARE INTENDED A GUIDE. | | MEDICAL | | | | A BETTER VALUE CAN BE | | CENTER - | | | | CALCULATED UTILIZING | | LABORATORY | | | | PATIENT WEIGHT | | | | | | 24 HOUR URINE NORMAL | | | | | | RANGE: 1-26 MG/KG/24HR | | | | | | | | | | + + + + + + | CREATININE | 52 (L)Comment: | 71 - 135 mL/min | [facility] | | | CLEARANCE | Creatinine Clearance is | | [facility] | | | | calculated using a body | | MEDICAL | | | | surface area | | CENTER - | | | | individualized for each | | LABORATORY | | | | patient from his/her | | | | | | height & weight | | | | + + + + + + | Estimated | 39 (L)Comment: For | >60 mL/min/A | [facility] | | | GFR | -Americans, | | [facility] | | | | please multiply the | | MEDICAL | | | | result by 1.210 | | CENTER - | | | | This is an estimated | | LABORATORY | | | | GFR and is based on a | | | | | | standard adult | | | | | | body mass (A=1.73m2) and | | | | | | serum creatinine | | | | + + + + + + + + | Specimen | + + | | + + + + + + + | Performing | Address | City/State/Zipcode | Phone Number | | Organization | | | | + + + + + | [facility] | [address] | [place], [place] | [phone] | | [facility] | | [address] | | | - LABORATORY | | | | + + + + + | [facility] | [address] | [place], [place] | | | [facility] | | [address] | | | - LABORATORY | | | | + + + + + POC Glucose (12/16/2013 10:02 PM PST) + +-------+ + + + | Component | Value | Ref Range | Performed | Pathologist | | | | | At | Signature | + +-------+ + + + | Glucose, | 116 | 79 - 150 md/dL | [facility] | | | POC | | | [facility] | | [...] | + + + + + | [facility] | [address] | [place] | [phone] | | [facility] | | [address] | | | - LABORATORY | | | | + + + + + | [facility] | [address] | [place] | | | [facility] | | [address] | | | - LABORATORY | | | | + + + + + POC Glucose (12/16/2013 5:43 PM PST) + +-------+ + + + | Component | Value | Ref Range | Performed | Pathologist | | | | | At | Signature | + +-------+ + + + | Glucose, | 150 | 79 - 150 md/dL | [facility] | | | POC | | | [facility] | | [...] + | [facility] | [address] | [place] | [phone] | | [facility] | | [address] | | | - LABORATORY | | | | + + + + + | [facility] | [address] | [place] | | | [facility] | | [address] | | | - LABORATORY | | | | + + + + + Troponin I (12/16/2013 4:32 PM PST) + + + + + + | Component | Value | Ref Range | Performed | Pathologist | | | | | At | Signature | + + + + + + | Troponin I | 0.01Comment: Reference | <0.06 ng/mL | [facility] | | | | Ranges: | | [facility] | | | | 0.00-0.06 = NORMAL | | MEDICAL | | | | >0.06 | | CENTER - | | | | = SUSPICIOUS FOR | | LABORATORY | | | | MYOCARDIAL DAMAGE | | | | | | NOTE: Values greater | | | | | | than 0.50 ng/mL have | | | | | | been shown to be | | | | | | strongly associated with | | | | | | acute myocardial | | | | | | infarction. The | | | | | | [employer] | | | | | | Cardiology (ACC) | | | | | | recommends a decision | | | | | | limit of 0.06 ng/mL for | | | | | | this assay. Results | | | | | | greater than 0.06 can | | | | | | reflect a pre-infarct | | | | | | acute coronary | | | | | | syndrome, but can also | | | | | | reflect myocardial | | | | | | necrosis or injury | | | | | | that is not due to | | | | | | coronary artery | | | | | | disease. Some of these | | | | | | causes are sepsis, | | | | | | hypocolemia, atrial | | | | | | fibrillation, heart | | | | | | failure, pulmonary | | | | | | embolism, myocarditis, | | | | | | myocardial contusion, | | | | | | and renal failure. The | | | | | | diagnosis of myocardial | | | | | | infarction should be | | | | | | based on a combination | | | | | | of the patient's | | | | | | clinical presentation | | | | | | and the clinical | | | | | | laboratory test results | | | | | | (especially serial | | | | | | troponin levels). | | | | + + + + + + + + | Specimen | + + | | + + + + + + + | Performing | Address | City/State/[facility] [[email or web address] | Phone Number | | Organization | | | | + + + + + | [facility] | [address] | [place], [place] | [phone] | | [facility] | | [address] | | | - LABORATORY | | | | + + + + + | [facility] | [address] | [place], [place] | | | [facility] | | [address] | | | - LABORATORY | | | | + + + + + Hemoglobin and Hematocrit (12/16/2013 4:32 PM PST) + + + + + + | Component | Value | Ref Range | Performed | Pathologist | | | | | At | Signature | + + + + + + | Hemoglobin | 7.3 (LL)Comment: VALUE | 13.5 - 18.0 | [facility] | | | | CONSISTENT WITH PREVIOUS | gm/dL | [facility] | | | | RESULTS | | MEDICAL | | | | | | CENTER - | | | | | | LABORATORY | | + + + + + + | Hematocrit | 21.6 (L) | 40.0 - 51.0 % | [facility] | | | | | | [facility] | | | | | | [...] | + + + + + | [facility] | [address] | [place] | [phone] | | [facility] | | [address] | | | - LABORATORY | | | | + + + + + | [facility] | [address] | [place] | | | [facility] | | [address] | | | - LABORATORY | | | | + + + + + Helicobactor pylori Biopsy (12/16/2013 2:01 PM PST) + + + + + + | Component | Value | Ref Range | Performed | Pathologist | | | | | At | Signature | + + + + + + | GASTRIC | Negative for Urease | | [facility] | | | BIOPSY | | | [facility] | | | UREASE TEST | | | MEDICAL | | | [...] + | [facility] | [address] | [place] | [phone] | | [facility] | | [address] | | | - LABORATORY | | | | + + + + + | [facility] | [address] | [place], [place] | | | [facility] | | [address] | | | - LABORATORY | | | | + + + + + Creatinine (12/16/2013 11:52 AM PST) + + + + + + | Component | Value | Ref Range | Performed | Pathologist | | | | | At | Signature | + + + + + + | Creatinine | 1.74 (H) | 0.60 - 1.30 | [facility] | | | | | mg/dL | [facility] | | | | [...] + | [facility] | [address] | [place] | [phone] | | [facility] | | [address] | | | - LABORATORY | | | | + + + + + | [facility] | [address] | [place] | | | [facility] | | [address] | | | - LABORATORY | | | | + + + + + POC Glucose (12/16/2013 11:21 AM PST) + +---------+ + + + | Component | Value | Ref Range | Performed | Pathologist | | | | | At | Signature | + +---------+ + + + | Glucose, | 159 (H) | 79 - 150 md/dL | [facility] | | | POC | | | [facility] | | [...] + | [facility] | [address] | [place] | [phone] | | [facility] | | [address] | | | - LABORATORY | | | | + + + + + | [facility] | [address] | [place] | | | [facility] | | [address] | | | - LABORATORY | | | | + + + + + POC Glucose (12/16/2013 8:01 AM PST) + +-------+ + + + | Component | Value | Ref Range | Performed | Pathologist | | | | | At | Signature | + +-------+ + + + | Glucose, | 101 | 79 - 150 md/dL | [facility] | | | POC | | | [facility] | | [...] + | [facility] | [address] | [place] | [phone] | | [facility] | | [address] | | | - LABORATORY | | | | + + + + + | [facility] | [address] | [place], [place] | | | [facility] | | [address] | | | - LABORATORY | | | | + + + + + ECHO Complete (12/16/2013 6:50 AM PST) + + | Specimen | + + | | + + + + + | Narrative | Performed At | + + + | [facility] | [facility] | | Department [address], [place] | [facility] | | [ rep ct street1+2] [ rep ct city | [facility] | | st zip] Signed | - IMAGING | | | | | Patient Name: SERGEI ESPANA | | | Physician: KAILEY : 1945 Age: 68 Sex: M Unit | | | #: [id number] Exam Date: 12/15/13 Location: | | | [facility] 454-1 Report #: [id number] Page: | | | %(RAD)RES..mtdd.print.filter("pg") of %(RAD) | | | RES..mtdd.print.filter("tpg") | | | | | | Accession Number: [id number] | | | E C H O C A R D I O G R A P H Y R E P O R T | | | HEIGHT: 75" WEIGHT: 275# | | | DRESS DRAPER: GINGER REFERRING DR: CHUCK ERWIN DR: | | | MORATAYA DIAGNOSIS: CHEST PAIN, LVH ON ECG | | | | | | M E A S U R E M E N T S | | | Aortic Root: 38 mm LV | | | Diameter-diastole: 53 mm Aortic Cusp Sep: 22 mm | | | LV Diameter--systole: 36 mm LA: | | | 39 mm Fractional Shortenin % | | | IVS--diastole: 11 mm PFV Aortic Valve: | | | IVS--systole: 18 mm MPG Mitral | | | Valve: mmHg LVPW--diastole: 11 mm | | | PFV TR Jet: m/s LVPW--systole: | | | 15 mm RA/RV PPG: mmHg | | | | | | | | | ECHOCARDIOGRAPHY, 12/15/2013 INDICATIONS FOR | | | PROCEDURE: CHEST PAIN/ABNORMAL EKG. TECHNICAL DATA: The | | | quality of the study is good. This is a 2-D echo / M-mode / Doppler | | | / color Doppler study. FINDINGS: Left atrial size is | | | normal. Left ventricular size is normal with normal wall thickness | | | and normal left ventricular systolic function. LVEF is 75%. | | | Aortic root is normal. Right atrial size is normal. Right | | | ventricular size is normal with normal wall thickness and normal right | | | ventricular systolic function. Pericardium is normal. Pulmonary | | | artery is normal. Aortic valve is trileaflet and opens normally. | | | Mitral valve is normal. Pulmonic valve is normal. Tricuspid | | | valve is normal. IVC is normal. IMPRESSION: 1. | | | ESSENTIALLY A NORMAL 2-D ECHO / M-MODE / DOPPLER / COLOR DOPPLER | | | STUDY. 2. A NORMAL RIGHT SIDED PRESSURE. 3. A | | | NORMAL IVC WITH A NORMAL RESPIRATORY COLLAPSE. Dictated | | | Date/Time: 12/16/2013 06:50 Transcribed Date/Time: 12/16/2013 | | | 07:14 Box Loader: <<Signature on | | | File>> | | | Suwong | | | MD [place] [facility] [id number]/16/[id number] <Electronically signed by | | | Logan Baca MD, [facility], FACP, FASE, FASNC> Logan | | | MD [place] [facility] F[facility] 12/16/13 0650 Box Loader: [employer] | | | [id number] Freddy Sanchez DO | | | | | + + + + + + + + | Performing | Address | City/State/Zipcode | Phone Number | | Organization | | | | + + + + + | [facility] | [address] | [place] | [phone] | | [facility] | | [id number] | | | - IMAGING | | | | + + + + + Renal Function Panel (12/16/2013 5:19 AM PST) + + + + + + | Component | Value | Ref Range | Performed | Pathologist | | | | | At | Signature | + + + + + + | Glucose | 95 | 70 - 109 mg/dL | [facility] | | | | | | [facility] | | | | | | [facility] | | | | | | [facility] - | | | | | | LABORATORY | | + + + + + + | Calcium | 8.3 | 8.3 - 10.5 | [facility] | | | | | mg/dL | [facility] | | | | | | [facility] | | | | | | [facility] - | | | | | | LABORATORY | | + + + + + + | Phosphorus | 2.5 | 2.5 - 4.6 mg/dL | [facility] | | | | | | [facility] | | | | | | [facility] | | | | | | [facility] - | | | | | | LABORATORY | | + + + + + + | Albumin | 2.8 (L) | 3.2 - 5.0 gm/dL | [facility] | | | | | | [facility] | | | | | | [facility] | | | | | | [facility] - | | | | | | LABORATORY | | + + + + + + | BUN | 68 (H) | 7 - 18 mg/dL | [facility] | | | | | | [facility] | | | | | | [facility] | | | | | | [facility] - | | | | | | LABORATORY | | + + + + + + | Creatinine | 1.74 (H) | 0.60 - 1.30 | [facility] | | | | | mg/dL | [facility] | | | | | | [facility] | | | | | | [facility] - | | | | | | LABORATORY | | + + + + + + | Estimated | 39 (L)Comment: For | >60 mL/min/A | [facility] | | | GFR | -Americans, | | [facility] | | | | please multiply the | | MEDICAL | | | | result by 1.210 | | CENTER - | | | | This is an estimated | | LABORATORY | | | | GFR and is based on a | | | | | | standard adult | | | | | | body mass (A=1.73m2) and | | | | | | serum creatinine | | | | + + + + + + | BUN/Creatin | 39.1 (H) | 12 - 20 | [facility] | | | ine Ratio | | | [facility] | | | | | | [facility] | | | | | | [facility] - | | | | | | LABORATORY | | + + + + + + | Na | 145 | 136 - 149 mEq/L | [facility] | | | | | | [facility] | | | | | | [facility] | | | | | | [facility] - | | | | | | LABORATORY | | + + + + + + | K | 4.6 | 3.5 - 5.1 mEq/l | [facility] | | | | | | [facility] | | | | | | [facility] | | | | | | [facility] - | | | | | | LABORATORY | | + + + + + + | Cl | 117 (H) | 98 - 109 mEq/l | [facility] | | | | | | [facility] | | | | | | MEDICAL | | | | | | CENTER - | | | | | | LABORATORY | | + + + + + + | CO2 | 23 (L) | 24 - 31 mEq/L | [facility] | | | | | | MEDICAL | | | | | | CENTER - | | | | | | LABORATORY | | + + + + + + | Anion Gap | 9.6 | 6.0 - 17.0 | [facility] | | | | | | [facility] | | | | | | [...] [facility]. | [address] | [place] | [phone] | | [facility] | | [address] | | | - LABORATORY | | | | + + + + + | [facility] | [address] | [place] | | | [facility] | | [address] | | | - LABORATORY | | | | + + + + + Troponin I (12/16/2013 5:19 AM PST) + + + + + + | Component | Value | Ref Range | Performed | Pathologist | | | | | At | Signature | + + + + + + | Troponin I | 0.01Comment: Reference | <0.06 ng/mL | [facility] | | | | Ranges: | | [facility] | | | | 0.00-0.06 = NORMAL | | MEDICAL | | | | >0.06 | | CENTER - | | | | = SUSPICIOUS FOR | | LABORATORY | | | | MYOCARDIAL DAMAGE | | | | | | NOTE: Values greater | | | | | | than 0.50 ng/mL have | | | | | | been shown to be | | | | | | strongly associated with | | | | | | acute myocardial | | | | | | infarction. The | | | | | | [employer] | | | | | | Cardiology (ACC) | | | | | | recommends a decision | | | | | | limit of 0.06 ng/mL for | | | | | | this assay. Results | | | | | | greater than 0.06 can | | | | | | reflect a pre-infarct | | | | | | acute coronary | | | | | | syndrome, but can also | | | | | | reflect myocardial | | | | | | necrosis or injury | | | | | | that is not due to | | | | | | coronary artery | | | | | | disease. Some of these | | | | | | causes are sepsis, | | | | | | hypocolemia, atrial | | | | | | fibrillation, heart | | | | | | failure, pulmonary | | | | | | embolism, myocarditis, | | | | | | myocardial contusion, | | | | | | and renal failure. The | | | | | | diagnosis of myocardial | | | | | | infarction should be | | | | | | based on a combination | | | | | | of the patient's | | | | | | clinical presentation | | | | | | and the clinical | | | | | | laboratory test results | | | | | | (especially serial | | | | | | troponin levels). | | | | + + + + + + + + | Specimen | + + | | + + + + + + + | Performing | Address | City/State/Zipcode | Phone Number | | Organization | | | | + + + + + | [facility] | [address] | [place] | [phone] | | [facility] | | [address] | | | - LABORATORY | | | | + + + + + | [facility] | [address] | [place], [place] | | | [facility] | | [address] | | | - LABORATORY | | | | + + + + + Hemoglobin and Hematocrit (12/16/2013 5:19 AM PST) + + + + + + | Component | Value | Ref Range | Performed | Pathologist | | | | | At | Signature | + + + + + + | Hemoglobin | 7.4 (LL)Comment: @VALUE | 13.5 - 18.0 | [facility] | | | | CONSISTENT WITH PREVIOUS | gm/dL | [facility] | | | | RESULTS | | MEDICAL | | | | | | CENTER - | | | | | | LABORATORY | | + + + + + + | Hematocrit | 21.2 (L) | 40.0 - 51.0 % | [facility] | | | | | [...] + | [facility] | [address] | [place], [place] | [phone] | | [facility] | | [address] | | | - LABORATORY | | | | + + + + + | [facility] | [address] | [place], [place] | | | [facility] | | [address] | | | - LABORATORY | | | | + + + + + POC Glucose (12/15/2013 9:30 PM PST) + +-------+ + + + | Component | Value | Ref Range | Performed | Pathologist | | | | | At | Signature | + +-------+ + + + | Glucose, | 100 | 79 - 150 md/dL | [facility] | | | POC | | | [facility] | | | | | [...] + | [facility] | [address] | [place] | [phone] | | [facility] | | [address] | | | - LABORATORY | | | | + + + + + | [facility] | [address] | [place] | | | [facility] | | [address] | | | - LABORATORY | | | | + + + + + Occult Blood, Stool, 1-3 Specimen(s) (12/15/2013 5:29 PM PST) + + + + + + | Component | Value | Ref Range | Performed | Pathologist | | | | | At | Signature | + + + + + + | FECAL | 12/15/13 Positive | | [facility] | | | OCCULT BLD | Comment: PHONED REPORT | | [facility] | | | | ZOE NICOLE 12/15/13 @ | | MEDICAL | | | | [address] | | CENTER - | | | | | | LABORATORY | | + + + + + + + + | Specimen | + + | | + + + + + + + | Performing | Address | City/State/Zipcode | Phone Number | | Organization | | | | + + + + + | [facility] | [address] | [place] | [phone] | | [facility] | | [address] | | | - LABORATORY | | | | + + + + + | [facility] | [address] | [place], [place] | | | [facility] | | [address] | | | - LABORATORY | | | | + + + + + POC Glucose (12/15/2013 5:07 PM PST) + +---------+ + + + | Component | Value | Ref Range | Performed | Pathologist | | | | | At | Signature | + +---------+ + + + | Glucose, | 158 (H) | 79 - 150 md/dL | [facility] | | | POC | | | [facility] | | [...] + | [facility] | [address] | [place] | [phone] | | [facility] | | [address] | | | - LABORATORY | | | | + + + + + | [facility] | [address] | [place], [place] | | | [facility] | | [address] | | | - LABORATORY | | | | + + + + + XR Chest AP Portable (12/15/2013 12:53 PM PST) + + | Specimen | + + | | + + + + + | Narrative | Performed At | + + + | [facility] | [facility] | | Department [address], [place] | [facility] | | [ rep ct [address]] [ rep ct [facility] | | st [facility]] Signed | - IMAGING | | | | | Patient Name: SERGEI ESPANA | | | Physician: KAILEY : 1945 Age: 68 Sex: M Unit | | | #: [id number] Exam Date: 12/14/13 Location: | | | [facility] 454-1 Report #: [id number] Page: | | | %(RAD)RES..mtdd.print.filter("pg") of %(RAD) | | | RES..mtdd.print.filter("tpg") | | | | | | Accession Number: [id number] | | | CHEST PORTABLE, 12/15/2013 CLINICAL HISTORY: EVALUATE | | | FOR CHF. COMPARISON: 10/03/2006. | | | FINDINGS: AP view of the chest was obtained. The bilateral lungs | | | are clear with no evidence for pulmonary edema or pleural effusions. | | | The heart is at the upper limits of normal in size. Mediastinum | | | is normal. There is atherosclerosis of the aorta. No acute | | | osseous abnormalities are seen. IMPRESSION: | | | 1. NO DEFINITE EVIDENCE FOR CHF. Dictated Date/Time: | | | 12/15/2013 12:53 Transcribed Date/Time: 12/15/2013 15:27 | | | Box Loader: <<Signature on File>> | | | | | | Kai Gomez MD12/15/13 1612 <Electronically signed by Kai Gomez | | | MD> Kai Gomez MD 12/15/13 1253 Box Loader: | | | [employer] [id number]/26/14 1527 Freddy Sanchez, | | | DO | | + + + + + + + + | Performing | Address | City/State/Zipcode | Phone Number | | Organization | | | | + + + + + | [facility] | [address] | [place] | [phone] | | [facility] | | [address] | | | - IMAGING | | | | + + + + + POC Glucose (12/15/2013 11:18 AM PST) + +-------+ + + + | Component | Value | Ref Range | Performed | Pathologist | | | | | At | Signature | + +-------+ + + + | Glucose, | 113 | 79 - 150 md/dL | [facility] | | | POC | | | [facility] | | | | | | [...] + | [facility] | [address] | [place], [place] | [phone] | | [facility] | | [address] | | | - LABORATORY | | | | + + + + + | [facility] | [address] | [place], [place] | | | [facility] | | [address] | | | - LABORATORY | | | | + + + + + Rule Out Myocardial (12/15/2013 5:57 AM PST) + + + + + + | Component | Value | Ref Range | Performed | Pathologist | | | | | At | Signature | + + + + + + | CK TOTAL | 24 | 22 - 269 IU/L | [facility] | | | | | | [facility] | | | | | | MEDICAL | | | | | | CENTER - | | | | | | LABORATORY | | + + + + + + | CK-MB | 2.9Comment: Testing | 0.6 - 6.3 ng/mL | [facility] | | | | performed on the [facility] | | [facility] | | | | [facility] | | MEDICAL | | | | Analyzer. | | CENTER - | | | | | | LABORATORY | | + + + + + + | Troponin I | 0.01Comment: Reference | <0.06 ng/mL | [facility] | | | | Ranges: | | [facility] | | | | 0.00-0.06 = NORMAL | | MEDICAL | | | | >0.06 | | CENTER - | | | | = SUSPICIOUS FOR | | LABORATORY | | | | MYOCARDIAL DAMAGE | | | | | | NOTE: Values greater | | | | | | than 0.50 ng/mL have | | | | | | been shown to be | | | | | | strongly associated with | | | | | | acute myocardial | | | | | | infarction. The | | | | | | [employer] | | | | | | Cardiology (ACC) | | | | | | recommends a decision | | | | | | limit of 0.06 ng/mL for | | | | | | this assay. Results | | | | | | greater than 0.06 can | | | | | | reflect a pre-infarct | | | | | | acute coronary | | | | | | syndrome, but can also | | | | | | reflect myocardial | | | | | | necrosis or injury | | | | | | that is not due to | | | | | | coronary artery | | | | | | disease. Some of these | | | | | | causes are sepsis, | | | | | | hypocolemia, atrial | | | | | | fibrillation, heart | | | | | | failure, pulmonary | | | | | | embolism, myocarditis, | | | | | | myocardial contusion, | | | | | | and renal failure. The | | | | | | diagnosis of myocardial | | | | | | infarction should be | | | | | | based on a combination | | | | | | of the patient's | | | | | | clinical presentation | | | | | | and the clinical | | | | | | laboratory test results | | | | | | (especially serial | | | | | | troponin levels). | | | | + + + + + + + + | Specimen | + + | | + + + + + + + | Performing | Address | City/State/Zipcode | Phone Number | | Organization | | | | + + + + + | [facility] | [address] | [place], [place] | [phone] | | [facility] | | [address] | | | - LABORATORY | | | | + + + + + | [facility] | [address] | [place], [place] | | | [facility] | | [address] | | | - LABORATORY | | | | + + + + + Renal Function Panel (12/15/2013 5:57 AM PST) + + + + + + | Component | Value | Ref Range | Performed | Pathologist | | | | | At | Signature | + + + + + + | Glucose | 87 | 70 - 109 mg/dL | [facility] | | | | | | [facility] | | | | | | MEDICAL | | | | | | CENTER - | | | | | | LABORATORY | | + + + + + + | Calcium | 8.0 (L) | 8.3 - 10.5 | [facility] | | | | | mg/dL | [facility] | | | | | | MEDICAL | | | | | | CENTER - | | | | | | LABORATORY | | + + + + + + | Phosphorus | 3.2 | 2.5 - 4.6 mg/dL | [facility] | | | | | | [facility] | | | | | | MEDICAL | | | | | | CENTER - | | | | | | LABORATORY | | + + + + + + | Albumin | 2.8 (L) | 3.2 - 5.0 gm/dL | [facility] | | | | | | [facility] | | | | | | MEDICAL | | | | | | CENTER - | | | | | | LABORATORY | | + + + + + + | BUN | 122 (HH)Comment: @VALUE | 7 - 18 mg/dL | [facility] | | | | CONSISTENT WITH PREVIOUS | | [facility] | | | | RESULTS | | MEDICAL | | | | | | CENTER - | | | | | | LABORATORY | | + + + + + + | Creatinine | 2.14 (H) | 0.60 - 1.30 | [facility] | | | | | mg/dL | [facility] | | | | | | MEDICAL | | | | | | CENTER - | | | | | | LABORATORY | | + + + + + + | Estimated | 31 (L)Comment: For | >60 mL/min/A | [facility] | | | GFR | -Americans, | | [facility] | | | | please multiply the | | MEDICAL | | | | result by 1.210 | | CENTER - | | | | This is an estimated | | LABORATORY | | | | GFR and is based on a | | | | | | standard adult | | | | | | body mass (A=1.73m2) and | | | | | | serum creatinine | | | | + + + + + + | BUN/Creatin | 57.0 (H)Comment: @VALUE | 12 - 20 | [facility] | | | ine Ratio | CONSISTENT WITH PREVIOUS | | [facility] | | | | RESULTS | | MEDICAL | | | | | | CENTER - | | | | | | LABORATORY | | + + + + + + | Na | 138 | 136 - 149 mEq/L | [facility] | | | | | | [facility] | | | | | | MEDICAL | | | | | | CENTER - | | | | | | LABORATORY | | + + + + + + | K | 4.0 | 3.5 - 5.1 mEq/l | [facility] | | | | | | [facility] | | | | | | MEDICAL | | | | | | CENTER - | | | | | | LABORATORY | | + + + + + + | Cl | 115 (H) | 98 - 109 mEq/l | [facility] | | | | | | [facility] | | | | | | MEDICAL | | | | | | CENTER - | | | | | | LABORATORY | | + + + + + + | CO2 | 17 (L) | 24 - 31 mEq/L | [facility] | | | | | | [facility] | | | | | | MEDICAL | | | | | | CENTER - | | | | | | LABORATORY | | + + + + + + | Anion Gap | 10.0 | 6.0 - 17.0 | [facility] | | | | | [...] + | [facility] | [address] | [place], [place] | [phone] | | [facility] | | [address] | | | - LABORATORY | | | | + + + + + | [facility] | [address] | [place], [place] | | | [facility] | | [address] | | | - LABORATORY | | | | + + + + + EPIFANIO Krishna (12/15/2013 5:57 AM PST) + + + + + + | Component | Value | Ref Range | Performed | Pathologist | | | | | At | Signature | + + + + + + | WBC | 8.5 | 4.0 - 11.0 K/uL | [facility] | | | | | | [facility] | | | | | | MEDICAL | | | | | | CENTER - | | | | | | LABORATORY | | + + + + + + | RBC | 2.30 (L) | 4.30 - 5.70 | [facility] | | | | | M/uL | [facility] | | | | | | MEDICAL | | | | | | CENTER - | | | | | | LABORATORY | | + + + + + + | Hemoglobin | 7.2 (LL)Comment: @VALUE | 13.5 - 18.0 | [facility] | | | | CONSISTENT WITH PREVIOUS | gm/dL | [facility] | | | | RESULTS | | MEDICAL | | | | | | CENTER - | | | | | | LABORATORY | | + + + + + + | Hematocrit | 20.6 (L)Comment: @VALUE | 40.0 - 51.0 % | [facility] | | | | CONSISTENT WITH PREVIOUS | | [facility] | | | | RESULTS | | MEDICAL | | | | | | CENTER - | | | | | | LABORATORY | | + + + + + + | MCV | 89.6 | 83.0 - 101.0 fL | [facility] | | | | | | [facility] | | | | | | MEDICAL | | | | | | CENTER - | | | | | | LABORATORY | | + + + + + + | MCH | 31.5 | 28.0 - 35.0 pg | [facility] | | | | | | [facility] | | | | | | MEDICAL | | | | | | CENTER - | | | | | | LABORATORY | | + + + + + + | MCHC | 35.2 | 32.0 - 36.0 | [facility] | | | | | g/dL | [facility] | | | | | | MEDICAL | | | | | | CENTER - | | | | | | LABORATORY | | + + + + + + | RDW-CV | 15.2 (H) | <15.0 % | [facility] | | | | | | [facility] | | | | | | MEDICAL | | | | | | CENTER - | | | | | | LABORATORY | | + + + + + + | Platelet | 107 (L)Comment: @VALUE | 140 - 440 K/uL | [facility] | | | Count | CONSISTENT WITH PREVIOUS | | [facility] | | | | RESULTS | | MEDICAL | | | | | | CENTER - | | | | | | LABORATORY | | + + + + + + | SUSPECTED | 1 (H)Comment: TEST | | [facility] | | | PROBLEM IS: | REPEATED, CRITICAL | | [facility] | | | | RESULT-PHONE RESULTS | | MEDICAL | | | | [...] + + | [facility] | [address] | [place] | [phone] | | [facility] | | [address] | | | - LABORATORY | | | | + + + + + | [facility] | [address] | [place] | | | [facility] | | [address] | | | - LABORATORY | | | | + + + + + POC Glucose (12/14/2013 11:50 PM PST) + +-------+ + + + | Component | Value | Ref Range | Performed | Pathologist | | | | | At | Signature | + +-------+ + + + | Glucose, | 101 | 79 - 150 md/dL | [facility] | | | POC | | | [facility] | | [...] + | [facility] | [address] | [place], [place] | [phone] | | [facility] | | [address] | | | - LABORATORY | | | | + + + + + | [facility] | [address] | [place], [place] | | | [facility] | | [address] | | | - LABORATORY | | | | + + + + + POC Glucose (12/14/2013 5:10 PM PST) + +-------+ + + + | Component | Value | Ref Range | Performed | Pathologist | | | | | At | Signature | + +-------+ + + + | Glucose, | 126 | 79 - 150 md/dL | [facility] | | | POC | | | [facility] | | [...] + | [facility] | [address] | [place], [place] | [phone] | | [facility] | | [address] | | | - LABORATORY | | | | + + + + + | [facility] | [address] | [place] | | | [facility] | | [address] | | | - LABORATORY | | | | + + + + + CBC with Differential (12/14/2013 3:09 PM PST) + + + + + + | Component | Value | Ref Range | Performed | Pathologist | | | | | At | Signature | + + + + + + | MANUAL | NO | | [facility] | | | DIFFERENTIA | | | [facility] | | | L ? | | | MEDICAL | | | | | | CENTER - | | | | | | LABORATORY | | + + + + + + | WBC | 8.7 | 4.0 - 11.0 K/uL | [facility] | | | | | | [facility] | | | | | | MEDICAL | | | | | | CENTER - | | | | | | LABORATORY | | + + + + + + | RBC | 1.89 (L) | 4.30 - 5.70 | [facility] | | | | | M/uL | [facility] | | | | | | MEDICAL | | | | | | CENTER - | | | | | | LABORATORY | | + + + + + + | Hemoglobin | 6.2 (LL)Comment: @VALUE | 13.5 - 18.0 | [facility] | | | | CONSISTENT WITH PREVIOUS | gm/dL | [facility] | | | | RESULTS | | MEDICAL | | | | | | CENTER - | | | | | | LABORATORY | | + + + + + + | Hematocrit | 17.4 (LL)Comment: @VALUE | 40.0 - 51.0 % | [facility] | | | | CONSISTENT WITH | | [facility] | | | | PREVIOUS RESULTS | | MEDICAL | | | | | | CENTER - | | | | | | LABORATORY | | + + + + + + | MCV | 92.0 | 83.0 - 101.0 fL | [facility] | | | | | | [facility] | | | | | | MEDICAL | | | | | | CENTER - | | | | | | LABORATORY | | + + + + + + | MCH | 32.8 | 28.0 - 35.0 pg | [facility] | | | | | | [facility] | | | | | | MEDICAL | | | | | | CENTER - | | | | | | LABORATORY | | + + + + + + | MCHC | 35.7 | 32.0 - 36.0 | [facility] | | | | | g/dL | [facility] | | | | | | MEDICAL | | | | | | CENTER - | | | | | | LABORATORY | | + + + + + + | RDW-CV | 14.3 | <15.0 % | [facility] | | | | | | [facility] | | | | | | MEDICAL | | | | | | CENTER - | | | | | | LABORATORY | | + + + + + + | Platelet | 116 (L) | 140 - 440 K/uL | [facility] | | | Count | | | [facility] | | | | | | MEDICAL | | | | | | CENTER - | | | | | | LABORATORY | | + + + + + + | % | 82.2 (H) | 45 - 75 % | [facility] | | | Neutrophils | | | [facility] | | | | | | MEDICAL | | | | | | CENTER - | | | | | | LABORATORY | | + + + + + + | % | 8.5 (L) | 20 - 45 % | [facility] | | | Lymphocytes | | | [facility] | | | | | | MEDICAL | | | | | | CENTER - | | | | | | LABORATORY | | + + + + + + | % Monocytes | 8.9 | 4 - 12 % | [facility] | | | | | | [facility] | | | | | | MEDICAL | | | | | | CENTER - | | | | | | LABORATORY | | + + + + + + | % | 0.1 | 0 - 5 % | [facility] | | | Eosinophils | | | [facility] | | | | | | MEDICAL | | | | | | CENTER - | | | | | | LABORATORY | | + + + + + + | % Basophils | 0.3 | 0 - 1 % | [facility] | | | | | | [facility] | | | | | | MEDICAL | | | | | | CENTER - | | | | | | LABORATORY | | + + + + + + | Absolute | 7.2 (H) | 1.5 - 6.6 K/uL | [facility] | | | Neutrophils | | | [facility] | | | | | | MEDICAL | | | | | | CENTER - | | | | | | LABORATORY | | + + + + + + | Absolute | 0.7 | 0.6 - 3.2 K/uL | [facility] | | | Lymphocytes | | | [facility] | | | | | | MEDICAL | | | | | | CENTER - | | | | | | LABORATORY | | + + + + + + | Absolute | 0.8 | 0.0 - 1.0 K/uL | [facility] | | | Monocytes | | | [facility] | | | | | | MEDICAL | | | | | | CENTER - | | | | | | LABORATORY | | + + + + + + | Absolute | 0.0 | 0.0 - 0.4 K/uL | [facility] | | | Eosinophils | | | [facility] | | | | | | MEDICAL | | | | | | CENTER - | | | | | | LABORATORY | | + + + + + + | Absolute | 0.0 | 0.0 - 0.1 K/uL | [facility] | | | Basophils | | | [facility] | | | | | | MEDICAL | | | | | | CENTER - | | | | | | LABORATORY | | + + + + + + | SUSPECTED | 1 (H)Comment: TEST | | [facility] | | | PROBLEM IS: | REPEATED, CRITICAL | | [facility] | | | | RESULT-PHONE RESULTS | | MEDICAL | | | | [...] + | [facility] | [address] | [place] | [phone] | | [facility] | | [address] | | | - LABORATORY | | | | + + + + + | [facility] | [address] | [place] | | | [facility] | | [address] | | | - LABORATORY | | | | + + + + + Rule Out Myocardial (12/14/2013 3:09 PM PST) + + + + + + | Component | Value | Ref Range | Performed | Pathologist | | | | | At | Signature | + + + + + + | CK TOTAL | 23 | 22 - 269 IU/L | [facility] | | | | | | [facility] | | | | | | MEDICAL | | | | | | CENTER - | | | | | | LABORATORY | | + + + + + + | CK-MB | 2.1Comment: Testing | 0.6 - 6.3 ng/mL | [facility] | | | | performed on the [facility] | | [facility] | | | | [facility] | | MEDICAL | | | | Analyzer. | | CENTER - | | | | | | LABORATORY | | + + + + + + | Troponin I | <0.01Comment: Reference | <0.06 ng/mL | [facility] | | | | Ranges: | | [facility] | | | | 0.00-0.06 = NORMAL | | MEDICAL | | | | >0.06 | | CENTER - | | | | = SUSPICIOUS FOR | | LABORATORY | | | | MYOCARDIAL DAMAGE | | | | | | NOTE: Values greater | | | | | | than 0.50 ng/mL have | | | | | | been shown to be | | | | | | strongly associated with | | | | | | acute myocardial | | | | | | infarction. The | | | | | | [employer] | | | | | | Cardiology (ACC) | | | | | | recommends a decision | | | | | | limit of 0.06 ng/mL for | | | | | | this assay. Results | | | | | | greater than 0.06 can | | | | | | reflect a pre-infarct | | | | | | acute coronary | | | | | | syndrome, but can also | | | | | | reflect myocardial | | | | | | necrosis or injury | | | | | | that is not due to | | | | | | coronary artery | | | | | | disease. Some of these | | | | | | causes are sepsis, | | | | | | hypocolemia, atrial | | | | | | fibrillation, heart | | | | | | failure, pulmonary | | | | | | embolism, myocarditis, | | | | | | myocardial contusion, | | | | | | and renal failure. The | | | | | | diagnosis of myocardial | | | | | | infarction should be | | | | | | based on a combination | | | | | | of the patient's | | | | | | clinical presentation | | | | | | and the clinical | | | | | | laboratory test results | | | | | | (especially serial | | | | | | troponin levels). | | | | + + + + + + + + | Specimen | + + | | + + + + + + + | Performing | Address | City/State/Zipcode | Phone Number | | Organization | | | | + + + + + | [facility] | [address] | [place] | [phone] | | [facility] | | [id number] | | | - LABORATORY | | | | + + + + + | [facility] | [address] | [place] | | | [facility] | | [address] | | | - LABORATORY | | | | + + + + + Renal Function Panel (12/14/2013 3:09 PM PST) + + + + + + | Component | Value | Ref Range | Performed | Pathologist | | | | | At | Signature | + + + + + + | Glucose | 160 (H) | 70 - 109 mg/dL | [facility] | [facility] | | | | | | [facility] | | | | | | [facility] - | | | | | | LABORATORY | | + + + + + + | Calcium | 7.7 (L) | 8.3 - 10.5 | [facility] | | | | | mg/dL | [facility] | | | | | | [facility] | | | | | | [facility] - | | | | | | LABORATORY | | + + + + + + | Phosphorus | 1.9 (L) | 2.5 - 4.6 mg/dL | [facility] | | | | | | [facility] | | | | | | [facility] | | | | | | [facility] - | | | | | | LABORATORY | | + + + + + + | Albumin | 2.5 (L) | 3.2 - 5.0 gm/dL | [facility] | | | | | | [facility] | | | | | | [facility] | | | | | | [facility] - | | | | | | LABORATORY | | + + + + + + | BUN | 153 (HH)Comment: @VALUE | 7 - 18 mg/dL | [facility] | | [facility] | [facility] | | | | RESULTS | | [facility] | | | | | | C[facility] - | | | | | | LABORATORY | | + + + + + + | Creatinine | 2.71 (H) | 0.60 - 1.30 | [facility] | | | | | mg/dL | [facility] | | | | | | [facility] | | | | | | [facility] - | | | | | | LABORATORY | | + + + + + + | Estimated | 23 (L)Comment: For | >60 mL/min/A | [facility] | | | GFR | -Americans, | | [facility] | | | | please multiply the | | MEDICAL | | | | result by 1.210 | | CENTER - | | | | This is an estimated | | LABORATORY | | | | GFR and is based on a | | | | | | standard adult | | | | | | body mass (A=1.73m2) and | | | | | | serum creatinine | | | | + + + + + + | BUN/Creatin | 56.5 (H) | 12 - 20 | [facility] | | | ine Ratio | | | [facility] | | | | | | [facility] | | | | | | CENTER - | | | | | | LABORATORY | | + + + + + + | Na | 137 | 136 - 149 mEq/L | [facility] | | | | | | [facility] | | | | | | MEDICAL | | | | | | CENTER - | | | | | | LABORATORY | | + + + + + + | K | 4.5 | 3.5 - 5.1 mEq/l | [facility] | | | | | | [facility] | | | | | | [facility] | | | | | | CENTER - | | | | | | LABORATORY | | + + + + + + | Cl | 113 (H) | 98 - 109 mEq/l | [facility] | | [facility] | [facility] | | | | | | [facility] | | | | | | [facility] - | | | | | | LABORATORY | | + + + + + + | CO2 | 17 (L) | 24 - 31 mEq/L | [facility] | | | | | [facility] | | | | | | [facility] | | | | | | [facility] - | | | | | | LABORATORY | | + + + + + + | Anion Gap | 11.5 | 6.0 - 17.0 | [facility] | | | | | [...] + | [facility] | [address] | [place] | [phone] | | [facility] | | [address] | | | - LABORATORY | | | | + + + + + | [facility] | [address] | [place] | | | [facility] | | [address] | | | - LABORATORY | | | | + + + + + Culture, MRSA (12/14/2013 2:03 PM PST) + + | Specimen | + + | | + + + + + + + | Performing | Address | City/State/Zipcode | Phone Number | | Organization | | | | + + + + + | [facility] | [address] | [place] | [phone] | | [facility] | | [address] | | | - LABORATORY | | | | + + + + + Hemoglobin and Hematocrit (12/14/2013 2:02 PM PST) + + + + + + | Component | Value | Ref Range | Performed | Pathologist | | | | | At | Signature | + + + + + + | Hemoglobin | 7.3 (LL)Comment: @VALUE | 13.5 - 18.0 | [facility] | | | | CONSISTENT WITH PREVIOUS | gm/dL | [facility] | | | | RESULTS | | MEDICAL | | | | | | CENTER - | | | | | | LABORATORY | | + + + + + + | Hematocrit | 20.3 (L) | 40.0 - 51.0 % | [facility] | | | | | [...] + | [facility] | [address] | [place], [place] | [phone] | | [facility] | | [address] | | | - LABORATORY | | | | + + + + + | [facility] | [address] | [place], [place] | | | [facility] | | [address] | | | - LABORATORY | | | | + + + + + POC Glucose (12/14/2013 12:47 PM PST) + +---------+ + + + | Component | Value | Ref Range | Performed | Pathologist | | | | | At | Signature | + +---------+ + + + | Glucose, | 190 (H) | 79 - 150 md/dL | [facility] | | | POC | | | [facility] | | | | | | [...] + | [facility] | [address] | [place] | [phone] | | [facility] | | [address] | | | - LABORATORY | | | | + + + + + | [facility] | [address] | [place] | | | [facility] | | [address] | | | - LABORATORY | | | | + + + + + POC Glucose (12/14/2013 10:36 AM PST) + +---------+ + + + | Component | Value | Ref Range | Performed | Pathologist | | | | | At | Signature | + +---------+ + + + | Glucose, | 205 (H) | 79 - 150 md/dL | [facility] | | | POC | | | [facility] | | [...] + | [facility] | [address] | [place], [place] | [phone] | | [facility] | | [address] | | | - LABORATORY | | | | + + + + + | [facility] | [address] | [place], [place] | | | [facility] | | [address] | | | - LABORATORY | | | | + + + + + Type and Screen (12/14/2013 8:53 AM PST) + + + + + + | Component | Value | Ref Range | Performed | Pathologist | | | | | At | Signature | + + + + + + | ABO | BP | | [facility] | | | | | | [facility] | | | | | | MEDICAL | | | | | | CENTER - | | | | | | LABORATORY | | + + + + + + | Antibody | NEGATIVE | | [facility] | | | Screen | | | [facility] | | [...] + | [facility] | [address] | [place] | [phone] | | [facility] | | [address] | | | - LABORATORY | | | | + + + + + | [facility] | [address] | [place] | | | [facility] | | [address] | | | - LABORATORY | | | | + + + + + Product: PRBC (12/14/2013 7:56 AM PST) + + + + + + | Component | Value | Ref Range | Performed | Pathologist | | | | | At | Signature | + + + + + + | Product | PACKED CELLS | | [facility] | | | Code | | | [facility] | | | | | | MEDICAL | | | | | | CENTER - | | | | | | LABORATORY | | + + + + + + | UNIT # | [id number] | | [facility] | | | | | [facility] | | | | | | MEDICAL | | | | | | CENTER - | | | | | | LABORATORY | | + + + + + + | UNIT ABO | O | | [facility] | | | | | [facility] | | | | | | MEDICAL | | | | | | CENTER - | | | | | | LABORATORY | | + + + + + + | UNIT RH | POS | | [facility] | | | | | | [facility] | | | | | | MEDICAL | | | | | | CENTER - | | | | | | LABORATORY | | + + + + + + | Unit Status | TRANSFUSED | | [facility] | | | | | [...] + | [facility] | [address] | [place] | [phone] | | [facility] | | [address] | | | - LABORATORY | | | | + + + + + | [facility] | [address] | [place] | | | [facility] | | [address] | | | - LABORATORY | | | | + + + + + Product: PRBC (12/14/2013 7:56 AM PST) + + + + + + | Component | Value | Ref Range | Performed | Pathologist | | | | | At | Signature | + + + + + + | Product | PACKED CELLS | | [facility] | | | Code | | | [facility] | | | | | | MEDICAL | | | | | | CENTER - | | | | | | LABORATORY | | + + + + + + | UNIT # | [id number] | | [facility] | | | | | [facility] | | | | | | MEDICAL | | | | | | CENTER - | | | | | | LABORATORY | | + + + + + + | UNIT ABO | B | | [facility] | | | | | [facility] | | | | | | MEDICAL | | | | | | CENTER - | | | | | | LABORATORY | | + + + + + + | UNIT RH | POS | | [facility] | | | | | | [facility] | | | | | | MEDICAL | | | | | | CENTER - | | | | | | LABORATORY | | + + + + + + | Unit Status | TRANSFUSED | | [facility] | | | | | [...] + | [facility] | [address] | [place] | [phone] | | [facility] | | [address] | | | - LABORATORY | | | | + + + + + | [facility] | [address] | [place] | | | [facility] | | [address] | | | - LABORATORY | | | | + + + + + Product: PRBC (12/14/2013 7:56 AM PST) + + + + + + | Component | Value | Ref Range | Performed | Pathologist | | | | | At | Signature | + + + + + + | Product | PACKED CELLS | | [facility] | | | Code | | | [facility] | | | | | | MEDICAL | | | | | | CENTER - | | | | | | LABORATORY | | + + + + + + | UNIT # | [id number] | | [facility] | | | | | [facility] | | | | | | MEDICAL | | | | | | CENTER - | | | | | | LABORATORY | | + + + + + + | UNIT ABO | B | | [facility] | | | | | | [facility] | | | | | | MEDICAL | | | | | | CENTER - | | | | | | LABORATORY | | + + + + + + | UNIT RH | POS | | [facility] | | | | | | [facility] | | | | | | MEDICAL | | | | | | CENTER - | | | | | | LABORATORY | | + + + + + + | Unit Status | TRANSFUSED | | [facility] | | | | | [...] + | [facility] | [address] | [place], [place] | [phone] | | [facility] | | [address] | | | - LABORATORY | | | | + + + + + | [facility] | [address] | [place], [place] | | | [facility] | | [address] | | | - LABORATORY | | | | + + + + + Product: PRBC (12/14/2013 7:56 AM PST) + + + + + + | Component | Value | Ref Range | Performed | Pathologist | | | | | At | Signature | + + + + + + | Product | PACKED CELLS | | [facility] | | | Code | | | [facility] | | | | | | MEDICAL | | | | | | CENTER - | | | | | | LABORATORY | | + + + + + + | UNIT # | [id number] | | [facility] | | | | | [facility] | | | | | | MEDICAL | | | | | | CENTER - | | | | | | LABORATORY | | + + + + + + | UNIT ABO | B | | [facility] | | | | | | [facility] | | | | | | MEDICAL | | | | | | CENTER - | | | | | | LABORATORY | | + + + + + + | UNIT RH | NEG | | [facility] | | | | | | [facility] | | | | | | MEDICAL | | | | | | CENTER - | | | | | | LABORATORY | | + + + + + + | Unit Status | TRANSFUSED | | [facility] | | | | | [...] + | [facility] | [address] | [place] | [phone] | | [facility] | | [address] | | | - LABORATORY | | | | + + + + + | [facility] | [address] | [place] | | | [facility] | | [address] | | | - LABORATORY | | | | + + + + + Product: PRBC (12/14/2013 7:56 AM PST) + + + + + + | Component | Value | Ref Range | Performed | Pathologist | | | | | At | Signature | + + + + + + | Product | PACKED CELLS | | [facility] | | | Code | | | [facility] | | | | | | MEDICAL | | | | | | CENTER - | | | | | | LABORATORY | | + + + + + + | UNIT # | [id number] | | [facility] | | | | | | [facility] | | | | | | MEDICAL | | | | | | CENTER - | | | | | | LABORATORY | | + + + + + + | UNIT ABO | B | | [facility] | | | | | | [facility] | | | | | | MEDICAL | | | | | | CENTER - | | | | | | LABORATORY | | + + + + + + | UNIT RH | NEG | | [facility] | | | | | | [facility] | | | | | | MEDICAL | | | | | | CENTER - | | | | | | LABORATORY | | + + + + + + | Unit Status | TRANSFUSED | | [facility] | | | | | [...] + | [facility] | [address] | [place], [place] | [phone] | | [facility] | | [address] | | | - LABORATORY | | | | + + + + + | [facility] | [address] | [place], [place] | | | [facility] | | [address] | | | - LABORATORY | | | | + + + + + CBC with Differential (12/14/2013 6:44 AM PST) + + + + + + | Component | Value | Ref Range | Performed | Pathologist | | | | | At | Signature | + + + + + + | MANUAL | NO | | [facility] | | | DIFFERENTIA | | | [facility] | | | L ? | | | MEDICAL | | | | | | CENTER - | | | | | | LABORATORY | | + + + + + + | WBC | 9.5 (A) | 4.0 - 11.0 K/uL | [facility] | | | | | | [facility] | | | | | | MEDICAL | | | | | | CENTER - | | | | | | LABORATORY | | + + + + + + | RBC | 1.83 (L) | 4.30 - 5.70 | [facility] | | | | | M/uL | [facility] | | | | | | MEDICAL | | | | | | CENTER - | | | | | | LABORATORY | | + + + + + + | Hemoglobin | 6.2 (LL) | 13.5 - 18.0 | [facility] | | | | | gm/dL | [facility] | | | | | | MEDICAL | | | | | | CENTER - | | | | | | LABORATORY | | + + + + + + | Hematocrit | 17.3 (LL)Comment: | 40.0 - 51.0 % | [facility] | | | | | | [facility] | | | | CRITICAL NOTIFICATION | | MEDICAL | | | | Time for CRITICAL | | CENTER - | | | | 11 results to Clinical | | LABORATORY | | | | Provider is 30 min. | | | | | | DO NOT DISCARD | | | | | | THIS REPORT * PLACE IN | | | | | | NURSING NOTES | | | | | | Nursing documentation | | | | | | will NOT be included on | | | | | | Summary Report | | | | | | RESULT CALLED TO PAT | | | | | | SIM 12/14/13 @0702 | | | | | | by FORERE @ * READ | | | | | | BACK MUST BE OBTAINED * | | | | | | READ BACK PERFORMED? Y | | | | | | Nurses' patient: Y N | | | | | | if NO -handoff | | | | | | to: Date/time: | | | | | | Report by Nursing | | | | | | Staff to Clinical | | | | | | Provider who will | | | | | | act/intervene on this | | | | | | value: Nurse Calling | | | | | | Result: | | | | | | Date/Time: | | | | | | Provider or licensee | | | | | | called: | | | | | | | | | | | | Time Provider | | | | | | called/paged: | | | | | | Time spoke to | | | | | | Provider: | | | | | | Read Back performed: Y | | | | | | N Provider NOT | | | | | | called - Reason: | | | | | | | | | | | | | | | | | | | | | | | | | | | | | | | | | | | | . | | | | + + + + + + | MCV | 94.9 | 83.0 - 101.0 fL | [facility] | | | | | | [facility] | | | | | | MEDICAL | | | | | | CENTER - | | | | | | LABORATORY | | + + + + + + | MCH | 33.7 | 28.0 - 35.0 pg | [facility] | | | | | | [facility] | | | | | | MEDICAL | | | | | | CENTER - | | | | | | LABORATORY | | + + + + + + | MCHC | 35.6 | 32.0 - 36.0 | [facility] | | | | | g/dL | [facility] | | | | | | MEDICAL | | | | | | CENTER - | | | | | | LABORATORY | | + + + + + + | RDW-CV | 13.7 | <15.0 % | [facility] | | | | | | [facility] | | | | | | MEDICAL | | | | | | CENTER - | | | | | | LABORATORY | | + + + + + + | Platelet | 147 (A) | 140 - 440 K/uL | [facility] | | | Count | | | [facility] | | | | | | MEDICAL | | | | | | CENTER - | | | | | | LABORATORY | | + + + + + + | % | 73.7 | 45 - 75 % | [facility] | | | Neutrophils | | | [facility] | | | | | | MEDICAL | | | | | | CENTER - | | | | | | LABORATORY | | + + + + + + | % | 16.0 (L) | 20 - 45 % | [facility] | | | Lymphocytes | | | [facility] | | | | | | MEDICAL | | | | | | CENTER - | | | | | | LABORATORY | | + + + + + + | % Monocytes | 8.9 | 4 - 12 % | [facility] | | | | | | [facility] | | | | | | MEDICAL | | | | | | CENTER - | | | | | | LABORATORY | | + + + + + + | % | 0.7 | 0 - 5 % | [facility] | | | Eosinophils | | | [facility] | | | | | | MEDICAL | | | | | | CENTER - | | | | | | LABORATORY | | + + + + + + | % Basophils | 0.7 | 0 - 1 % | [facility] | | | | | | [facility] | | | | | | MEDICAL | | | | | | CENTER - | | | | | | LABORATORY | | + + + + + + | Absolute | 7.0 (H) | 1.5 - 6.6 K/uL | [facility] | | | Neutrophils | | | [facility] | | | | | | MEDICAL | | | | | | CENTER - | | | | | | LABORATORY | | + + + + + + | Absolute | 1.5 | 0.6 - 3.2 K/uL | [facility] | | | Lymphocytes | | | [facility] | | | | | | MEDICAL | | | | | | CENTER - | | | | | | LABORATORY | | + + + + + + | Absolute | 0.8 | 0.0 - 1.0 K/uL | [facility] | | | Monocytes | | | [facility] | | | | | | MEDICAL | | | | | | CENTER - | | | | | | LABORATORY | | + + + + + + | Absolute | 0.1 | 0.0 - 0.4 K/uL | [facility] | | | Eosinophils | | | [facility] | | | | | | MEDICAL | | | | | | CENTER - | | | | | | LABORATORY | | + + + + + + | Absolute | 0.1 | 0.0 - 0.1 K/uL | [facility] | | | Basophils | | | [facility] | | | | | | MEDICAL | | | | | | CENTER - | | | | | | LABORATORY | | + + + + + + | SUSPECTED | 1 (H)Comment: TEST | | [facility] | | | PROBLEM IS: | REPEATED, CRITICAL | | [facility] | | | | RESULT-PHONE RESULTS | | MEDICAL | | | | [...] [facility] | [address] | [place] | [phone] | | [facility] | | [address] | | | - LABORATORY | | | | + + + + + | [facility] | [address] | [place] | | | [facility] | | [address] | | | - LABORATORY | | | | + + + + + Iron Profile (12/14/2013 6:44 AM PST) + + + + + + | Component | Value | Ref Range | Performed | Pathologist | | | | | At | Signature | + + + + + + | Iron | 108 | 50 - 160 ug/dL | [facility] | | | | | | [facility] | | | | | | MEDICAL | | | | | | CENTER - | | | | | | LABORATORY | | + + + + + + | TIBC | 239 | 235 - 425 ug/dL | [facility] | | | | | | [facility] | | | | | | MEDICAL | | | | | | CENTER - | | | | | | LABORATORY | | + + + + + + | % | 45 | 20 - 55 % | [facility] | | | SATURATION | | | [facility] | | | | | | MEDICAL | | | | | | CENTER - | | | | | | LABORATORY | | + + + + + + | FERRITIN | 110.9Comment: Testing | 23.9 - 336.0 | [facility] | | | | performed on the [facility] | ng/mL | [facility] | | | | [place] [facility] | | MEDICAL | | | | Analyzer. | | CENTER - | | | | | | LABORATORY | | + + + + + + + + | Specimen | + + | | + + + + + + + | Performing | Address | City/State/Zipcode | Phone Number | | Organization | | | | + + + + + | [facility] | [address] | [place], [place] | [phone] | | [facility] | | [address] | | | - LABORATORY | | | | + + + + + | [facility] | [address] | [place], [place] | | | [facility] | | [address] | | | - LABORATORY | | | | + + + + + Renal Function Panel (12/14/2013 6:44 AM PST) + + + + + + | Component | Value | Ref Range | Performed | Pathologist | | | | | At | Signature | + + + + + + | Glucose | 95 | 70 - 109 mg/dL | [facility] | | | | | | [facility] | | | | | | MEDICAL | | | | | | CENTER - | | | | | | LABORATORY | | + + + + + + | Calcium | 7.9 (L) | 8.3 - 10.5 | [facility] | | | | | mg/dL | [facility] | | | | | | MEDICAL | | | | | | CENTER - | | | | | | LABORATORY | | + + + + + + | Phosphorus | 3.4 | 2.5 - 4.6 mg/dL | [facility] | | | | | | [facility] | | | | | | MEDICAL | | | | | | CENTER - | | | | | | LABORATORY | | + + + + + + | Albumin | 2.7 (L) | 3.2 - 5.0 gm/dL | [facility] | | | | | | [facility] | | | | | | MEDICAL | | | | | | CENTER - | | | | | | LABORATORY | | + + + + + + | BUN | 132 (HH)Comment: @VALUE | 7 - 18 mg/dL | [facility] | | | | CONSISTENT WITH PREVIOUS | | [facility] | | | | RESULTS | | MEDICAL | | | | | | CENTER - | | | | ALERT VALUE DO | | LABORATORY | | | | NOT DISCARD WRITTEN | | | | | | DOCUMENTATION. PLACE IN | | | | | | NURSING NOTES Nursing | | | | | | documentation will NOT | | | | | | be included on Summary | | | | | | Report @TELEPHONE | | | | | | NOTIFICATION? YES | | | | | | 12/14/13 @0714 by BELLA | | | | | | Clinical Provider | | | | | | notification at Nurses | | | | | | discretion Report | | | | | | by Nursing Staff to | | | | | | Clinical Provider who | | | | | | will act/intervene on | | | | | | this value: Nurse | | | | | | Calling Result: | | | | | | | | | | | | Date/Time: | | | | | | Provider or licensee | | | | | | called: | | | | | | | | | | | | Time Provider | | | | | | called/paged: | | | | | | Time spoke to | | | | | | Provider: | | | | + + + + + + | Creatinine | 2.65 (H) | 0.60 - 1.30 | [facility] | | | | | mg/dL | [facility] | | | | | | MEDICAL | | | | | | CENTER - | | | | | | LABORATORY | | + + + + + + | Estimated | 24 (L)Comment: For | >60 mL/min/A | [facility] | | | GFR | -Americans, | | [facility] | | | | please multiply the | | MEDICAL | | | | result by 1.210 | | CENTER - | | | | This is an estimated | | LABORATORY | | | | GFR and is based on a | | | | | | standard adult | | | | | | body mass (A=1.73m2) and | | | | | | serum creatinine | | | | + + + + + + | BUN/Creatin | 49.8 (H) | 12 - 20 | [facility] | | | ine Ratio | | | [facility] | | | | | | MEDICAL | | | | | | CENTER - | | | | | | LABORATORY | | + + + + + + | Na | 139 | 136 - 149 mEq/L | [facility] | | | | | | [facility] | | | | | | MEDICAL | | | | | | CENTER - | | | | | | LABORATORY | | + + + + + + | K | 4.5 | 3.5 - 5.1 mEq/l | [facility] | | | | | | [facility] | | | | | | MEDICAL | | | | | | CENTER - | | | | | | LABORATORY | | + + + + + + | Cl | 113 (H) | 98 - 109 mEq/l | [facility] | | | | | | [facility] | | | | | | MEDICAL | | | | | | CENTER - | | | | | | LABORATORY | | + + + + + + | CO2 | 18 (L) | 24 - 31 mEq/L | [facility] | | | | | | [facility] | | | | | | MEDICAL | | | | | | CENTER - | | | | | | LABORATORY | | + + + + + + | Anion Gap | 12.5 | 6.0 - 17.0 | [facility] | | | | | [...] + | [facility] | [address] | [place] | [phone] | | [facility] | | [address] | | | - LABORATORY | | | | + + + + + | [facility] | [address] | [place] | | | [facility] | | [address] | | | - LABORATORY | | | | + + + + + Troponin I (12/14/2013 6:44 AM PST) + + + + + + | Component | Value | Ref Range | Performed | Pathologist | | | | | At | Signature | + + + + + + | Troponin I | <0.01Comment: Reference | <0.06 ng/mL | [facility] | | | | Ranges: | | [facility] | | | | 0.00-0.06 = NORMAL | | MEDICAL | | | | >0.06 | | CENTER - | | | | = SUSPICIOUS FOR | | LABORATORY | | | | MYOCARDIAL DAMAGE | | | | | | NOTE: Values greater | | | | | | than 0.50 ng/mL have | | | | | | been shown to be | | | | | | strongly associated with | | | | | | acute myocardial | | | | | | infarction. The | | | | | | [employer] | | | | | | Cardiology ([employer]) | | | | | | recommends a decision | | | | | | limit of 0.06 ng/mL for | | | | | | this assay. Results | | | | | | greater than 0.06 can | | | | | | reflect a pre-infarct | | | | | | acute coronary | | | | | | syndrome, but can also | | | | | | reflect myocardial | | | | | | necrosis or injury | | | | | | that is not due to | | | | | | coronary artery | | | | | | disease. Some of these | | | | | | causes are sepsis, | | | | | | hypocolemia, atrial | | | | | | fibrillation, heart | | | | | | failure, pulmonary | | | | | | embolism, myocarditis, | | | | | | myocardial contusion, | | | | | | and renal failure. The | | | | | | diagnosis of myocardial | | | | | | infarction should be | | | | | | based on a combination | | | | | | of the patient's | | | | | | clinical presentation | | | | | | and the clinical | | | | | | laboratory test results | | | | | | (especially serial | | | | | | troponin levels). | | | | + + + + + + + + | Specimen | + + | | + + + + + + + | Performing | Address | City/State/Zipcode | Phone Number | | Organization | | | | + + + + + | [facility] | [address] | [place], [place] | [phone] | | [facility] | | [address] | | | - LABORATORY | | | | + + + + + | [facility] | [address] | [place], [place] | | | [facility] | | [address] | | | - LABORATORY | | | | + + + + + POC Glucose (12/14/2013 5:56 AM PST) + +-------+ + + + | Component | Value | Ref Range | Performed | Pathologist | | | | | At | Signature | + +-------+ + + + | Glucose, | 101 | 79 - 150 md/dL | [facility] | | | POC | | | [facility] | | [...] + | [facility] | [address] | [place] | [phone] | | [facility] | | [address] | | | - LABORATORY | | | | + + + + + | [facility] | [address] | [place] | | | [facility] | | [address] | | | - LABORATORY | | | | + + + + + Creatinine, Urine, Random (12/13/2013 10:43 PM PST) + + + + + + | Component | Value | Ref Range | Performed | Pathologist | | | | | At | Signature | + + + + + + | Creatinine, | 83.60Comment: NO NORMAL | mg/dL | [facility] | | | Urine, | RANGE FOR RANDOM URINE | | [facility] | | | Random | SPECIMEN | | MEDICAL | | | | [...] + | [facility] | [address] | [place] | [phone] | | [facility] | | [address] | | | - LABORATORY | | | | + + + + + | [facility] | [address] | [place] | | | [facility] | | [address] | | | - LABORATORY | | | | + + + + + Microalbumin, Urine (12/13/2013 10:43 PM PST) + +--------+ + + + | Component | Value | Ref Range | Performed | Pathologist | | | | | At | Signature | + +--------+ + + + | Microalbumi | 31 (H) | <18 mg/L | [facility] | | | n, Urine, | | | [facility] | | | Random | | | MEDICAL | | | | | | CENTER - | | | | | | LABORATORY | | + +--------+ + + + + + | Specimen | + + | | + + + + + + + | Performing | Address | City/State/Zipcode | Phone Number | | Organization | | | | + + + + + | [facility] | [address] | [place], [place] | [phone] | | [facility] | | [address] | | | - LABORATORY | | | | + + + + + | [facility] | [address] | [place], [place] | | | [facility] | | [address] | | | - LABORATORY | | | | + + + + + Sodium, Urine, Random (12/13/2013 10:43 PM PST) + + + + + + | Component | Value | Ref Range | Performed | Pathologist | | | | | At | Signature | + + + + + + | Sodium, | 53Comment: NO NORMAL | mEq/L | [facility] | | | Urine | RANGE FOR RANDOM URINE | | [facility] | | | Random | SPECIMEN | | MEDICAL | | | | [...] | + + + + + | [facility] | [address] | [place] | [phone] | | [facility] | | [address] | | | - LABORATORY | | | | + + + + + | [facility] | [address] | [place] | | | [facility] | | [address] | | | - LABORATORY | | | | + + + + + Osmolality, Urine (12/13/2013 10:43 PM PST) + +-------+ + + + | Component | Value | Ref Range | Performed | Pathologist | | | | | At | Signature | + +-------+ + + + | OSMO URINE | 492 | 300 - 1,000 | [facility] | | | | | MOSM/KG | [facility] | | | | [...] + | [facility] | [address] | [place], [place] | [phone] | | [facility] | | [address] | | | - LABORATORY | | | | + + + + + | [facility] | [address] | [place], [place] | | | [facility] | | [address] | | | - LABORATORY | | | | + + + + + Parathyroid Hormone, Intact (12/13/2013 7:03 PM PST) + + + + + + | Component | Value | Ref Range | Performed | Pathologist | | | | | At | Signature | + + + + + + | PTH INTACT | 284 (H)Comment: Testing | 12 - 88 pg/mL | [facility] | | | | performed on the [facility] | | [facility] | | | | [facility] | | MEDICAL | | | | Analyzer. | | CENTER - | | | | | | LABORATORY | | + + + + + + | Calcium | 8.8 | 8.4 - 10.5 | [facility] | | | [...] + + | [facility] | [address] | [place] | [phone] | | [facility] | | [address] | | | - LABORATORY | | | | + + + + + | [facility] | [address] | [place] | | | [facility] | | [address] | | | - LABORATORY | | | | + + + + + Hemoglobin A1C (12/13/2013 7:02 PM PST) + +-------+ + + + | Component | Value | Ref Range | Performed | Pathologist | | | | | At | Signature | + +-------+ + + + | Hemoglobin | 5.7 | 4.3 - 5.8 % | [facility] | | | A1c | | | [facility] | | [...] + | [facility] | [address] | [place] | [phone] | | [facility] | | [address] | | | - LABORATORY | | | | + + + + + | [facility] | [address] | [place] | | | [facility] | | [address] | | | - LABORATORY | | | | + + + + + CBC with Differential (12/13/2013 5:19 PM PST) + + + + + + | Component | Value | Ref Range | Performed | Pathologist | | | | | At | Signature | + + + + + + | MANUAL | NO | | [facility] | | | [facility] | | | [facility] | | | L ? | | | MEDICAL | | | | | | CENTER - | | | | | | LABORATORY | | + + + + + + | WBC | 11.9 (H) | 4.0 - 11.0 K/uL | [facility] | [facility] | [facility] - | | | | | | LABORATORY | | + + + + + + | RBC | 2.79 (L) | 4.30 - 5.70 | [facility] | | | | | M/uL | [facility] | [facility] | [facility] | | | [facility] | | [facility] - | | | | | | LABORATORY | | + + + + + + | Hemoglobin | 8.9 (L) | 13.5 - 18.0 | [facility] | | | | | gm/dL | [facility] | | | [facility] | [facility] | | | | | | C[facility] - | | | | | | LABORATORY | | + + + + + + | Hematocrit | 26.2 (L) | 40.0 - 51.0 % | [facility] | [facility] | [facility] | | | | | [facility] - | | | | | | LABORATORY | | + + + + + + | MCV | 94.0 | 83.0 - 101.0 fL | [facility] | [facility] | | [facility] | [facility] - | | | | | | LABORATORY | | + + + + + + | MCH | 31.9 | 28.0 - 35.0 pg | [facility] | [facility] | | [facility] | [facility] | | | | | | [facility] - | | | | | | LABORATORY | | + + + + + + | MCHC | 33.9 | 32.0 - 36.0 | [facility] | | | | | g/dL | [facility] | | | [facility] | | [facility] | | | | | | C[facility] - | | | | | | LABORATORY | | + + + + + + | RDW-CV | 13.9 | <15.0 % | [facility] | | [facility] | [facility] | | | | | | [facility] - | | | | | | LABORATORY | | + + + + + + | Platelet | 191 | 140 - 440 K/uL | [facility] | | | Count | | | [facility] | [facility] | [facility] | [facility] | | | | [facility] - | | | | | | LABORATORY | | + + + + + + | % | 89.6 (H) | 45 - 75 % | [facility] | | | Neutrophils | | | [facility] | | [facility] | [facility] | | | | | | C[facility] - | | | | | | LABORATORY | | + + + + + + | % | 5.7 (L) | 20 - 45 % | [facility] | | | Lymphocytes | | | [facility] | | | | | | [facility] | | | | | | C[facility] - | | | | | | LABORATORY | | + + + + + + | % Monocytes | 4.3 | 4 - 12 % | [facility] | | | [facility] | | | [facility] | [facility] | | | | | | [facility] - | | | | | | LABORATORY | | + + + + + + | % | 0.1 | 0 - 5 % | [facility] | | | Eosinophils | | | [facility] | | | | | | [facility] | | | | | | C[facility] - | | | | | | LABORATORY | | + + + + + + | % Basophils | 0.3 | 0 - 1 % | [facility] | | | | | [facility] | | [facility] | [facility] | [facility] | | | | | | [facility] - | | | | | | LABORATORY | | + + + + + + | Absolute | 10.6 (H) | 1.5 - 6.6 K/uL | [facility] | | | Neutrophils | | | [facility] | | | | | | [facility] | | | | | | CENTER - | | | | | | LABORATORY | | + + + + + + | Absolute | 0.7 | 0.6 - 3.2 K/uL | [facility] | | | Lymphocytes | | | [facility] | [facility] | | | | | | [facility] - | | | | | | LABORATORY | | + + + + + + | Absolute | 0.5 | 0.0 - 1.0 K/uL | [facility] | | | Monocytes | | | [facility] | | | | | | [facility] | | | | | | CENTER - | | | | | | LABORATORY | | + + + + + + | Absolute | 0.0 | 0.0 - 0.4 K/uL | [facility] | | | Eosinophils | | | [facility] | | | | | | [facility] | | | | | | C[facility] - | | | | | | LABORATORY | | + + + + + + | Absolute | 0.0 | 0.0 - 0.1 K/uL | [facility] | | | Basophils | | | [facility] | | [...] + | [facility] | [address] | [place], [place] | [phone] | | [facility] | | [address] | | | - LABORATORY | | | | + + + + + | [facility] | [address] | [place], [place] | | | [facility] | | [address] | | | - LABORATORY | | | | + + + + + Comprehensive Metabolic Panel (12/13/2013 5:19 PM PST) + + + + + + | Component | Value | Ref Range | Performed | Pathologist | | | | | At | Signature | + + + + + + | Glucose | 145 (H) | 70 - 109 mg/dL | [facility] | | | | | [facility] | | | | | [facility] | | | | | | [facility] - | | | | | | LABORATORY | | + + + + + + | Calcium | 8.9 | 8.3 - 10.5 | [facility] | | | | | mg/dL | [facility] | | | | | | [facility] | | | | | | CENTER - | | | | | | LABORATORY | | + + + + + + | Alkaline | 43 | 40 - 110 IU/L | [facility] | | | Phosphatase | | | [facility] | | | | | | [facility] | | | | | | CENTER - | | | | | | LABORATORY | | + + + + + + | AST | 13 | 10 - 42 IU/L | [facility] | | | | | [facility] | | | | | | [facility] | | | | | | CENTER - | | | | | | LABORATORY | | + + + + + + | ALT | 16 | 6 - 45 IU/L | [facility] | | | | | | [facility] | | | | | | [facility] | | | | | | CENTER - | | | | | | LABORATORY | | + + + + + + | Bilirubin | 0.7 | 0.2 - 1.0 mg/dL | [facility] | | | Total | | | [facility] | | | | | | [facility]ICAL | | | | | | CENTER - | | | | | | LABORATORY | | + + + + + + | Total | 5.9 (L) | 6.0 - 7.8 gm/dL | [facility] | | | Protein | | | [facility] | | | | | | [facility] | | | | | | CENTER - | | | | | | LABORATORY | | + + + + + + | Albumin | 3.6 | 3.2 - 5.0 gm/dL | [facility] | | | | | | [facility] | | | | | | [facility] | | | | | | C[facility] - | | | | | | LABORATORY | | + + + + + + | BUN | 103 (HH)Comment: @VALUE | 7 - 18 mg/dL | [facility] | | | | CONSISTENT WITH PREVIOUS | | [facility] | | | | RESULTS | | MEDICAL | | | | | | CENTER - | | | | | | LABORATORY | | + + + + + + | Creatinine | 3.20 (H) | 0.60 - 1.30 | [facility] | | | | | mg/dL | [facility] | | | | | | [facility] | | | | | | CENTER - | | | | | | LABORATORY | | + + + + + + | Estimated | 19 (L)Comment: For | >60 mL/min/A | [facility] | | | GFR | -Americans, | [facility] | | | | please multiply the | | MEDICAL | | | | result by 1.210 | | CENTER - | | | | This is an estimated | | LABORATORY | | | | GFR and is based on a | | | | | | standard adult | | | | | | body mass (A=1.73m2) and | | | | | | serum creatinine | | | | + + + + + + | BUN/Creatin | 32.2 (H) | 12 - 20 | [facility] | | | ine Ratio | | | [facility] | | | | | | [facility] | | | | | | CENTER - | | | | | | LABORATORY | | + + + + + + | Na | 138 | 136 - 149 mEq/L | [facility] | | | | [facility] | | | [facility] | | [facility] | | | | | | CENTER - | | | | | | LABORATORY | | + + + + + + | K | 5.3 (H) | 3.5 - 5.1 mEq/l | [facility] | | | | | [facility] | | | | | | MEDICAL | | | | | | CENTER - | | | | | | LABORATORY | | + + + + + + | Cl | 106 | 98 - 109 mEq/l | [facility] | | | | | [facility] | | | | | | MEDICAL | | | | | | CENTER - | | | | | | LABORATORY | | + + + + + + | CO2 | 19 (L) | 24 - 31 mEq/L | [facility] | | | | | [facility] | | | | | | MEDICAL | | | | | | CENTER - | | | | | | LABORATORY | | + + + + + + | Anion Gap | 18.3 (H) | 6.0 - 17.0 | [facility] | | | | | [facility] | | | | | | MEDICAL | | | | | | CENTER - | | | | | | LABORATORY | | + + + + + + + + | Specimen | + + | | + + + + + + + | Performing | Address | [facility] [place] Phone Number | | Organization | | | | + + + + + | [facility] | [address] | [place] | [phone] | | [facility] | | [address] | | | - LABORATORY | | | | + + + + + | [facility] | [address] | [place] | | | [facility] | | [address] | | | - LABORATORY | | | | + + + + + CK Total (12/13/2013 5:19 PM PST) + +-------+ + + + | Component | Value | Ref Range | Performed | Pathologist | | | | | At | Signature | + +-------+ + + + | CK TOTAL | 52 | 22 - 269 IU/L | [facility] | | | | [facility] | | | | [facility] | [...] [facility] | [address] | [place] | [phone] | | [facility] | | [address] | | | - LABORATORY | | | | + + + + + | [facility] | [address] | [place], [place] | | | [facility] | | [address] | | | - LABORATORY | | | | + + + + + documented in this encounter Visit Diagnoses Not on filedocumented in this encounter
--- OUTSIDE RECORDS SUMMARY | ~2019-10-22 | XMS | Encounter Summary ---
Demographics + + + | Address | [address] | | | [place] [address] | + + + | Home Phone | | + + + | Preferred Language | Unknown | + + + | Marital Status | Single | + + + | Worship Affiliation | Unknown | + + + | Race | Unknown | + + + | Ethnic Group | Unknown | + + + Author + + + | Author | [facility] | | | and [place] | + + + | Organization | [facility] | | | and [place] | + + + | Address | Unknown | + + + | Phone | Unavailable | + + + Support + + + + + | Name | Relationship | Address | Phone | + + + + + | Hi Dawn | ECON | [place] | | | | | [address] | | + + + + + | Atif Delgadillo | ECON | [place], [place] | | | | | [address] | | + + + + + | Caleb Dawn | ECON | Unknown | | + + + + + Care Team Providers + +------+ + | Care Reclamation Kettle Tender Name | Role | Phone | + +------+ + PCP | Unavailable | + +------+ + Encounter Details +--------+ + + + + | Date | Type | Department | Care Team | Description | +--------+ + + + + | 08/27/ | Orders Only | [facility] | Freddy Sanchez | Elevated serum | | 2012 | | NEPHROLOGY [address] | M, DO [address] | creatinine (Primary | | | | [address] | [place] [place] [address] | Dx); Chronic kidney | | | | [place], [place] | [place], [place] | disease, stage IV | | | | [address] | [address] | (severe) ([facility]); | | | | [phone] | | Hypertension | +--------+ + + + + Social [...] encounter Progress Notes Jelena Wick RN - 08/27/2013 3:06 PM PDTLab order for nephrology consultation on 09/04/13 faxed to [facility]. Renal ultrasound orders faxed to [facility]. documented in this encounter Plan of Treatment +--------+ + + + + | Date | Type | Specialty | Care Team | Description | +--------+ + + + + | 03/16/ | Off-Site | Nephrology | Freddy Sanchez | | | 2019 | Visit | | M, [address] [place] [address] | | | | | | [address] [facility] [address] | | | | | | [place], [place] | | | | | | [phone] | | | | | | | | +--------+ + + + + | 05/20/ | Office | Cardiology | Yumiko Del Valle, | | | 2020 | Visit | | MD Lupe [address]YLER | | | | | | [place] | | | | | | [address] | | | | | | | | +--------+ + + + + + +---------+--------+ + + | Name | Type | Priori | Associated Diagnoses | Order Schedule | | | | ty | | | + +---------+--------+ + + | US Renal Limited | Imaging | Routin | Elevated serum | Expected: 08/28/2013 | | | | e | creatinine | (Approximate), | | | | | | Expires: 08/27/2014 | + +---------+--------+ + + documented as of this encounter Visit Diagnoses + + | Diagnosis | + + | Elevated serum creatinine - Primary Other nonspecific findings on examination of | | blood | + + | Chronic kidney disease, stage IV (severe) (HCC) Chronic kidney disease, Stage IV | | (severe) | + + | Hypertension Unspecified essential hypertension | + + documented in this encounter"
--- OUTSIDE RECORDS SUMMARY | ~2019-10-22 | XMS | Encounter Summary ---
Demographics + + + | Address | [address] | | | [place] [address] | + + + | Home Phone | | + + + | Preferred Language | Unknown | + + + | Marital Status | Single | + + + | Adventism Affiliation | Unknown | + + + | Race | Unknown | + + + | Ethnic Group | Unknown | + + + Author + + + | Author | [facility] | | | and [place] | + + + | Organization | [facility] | | | and [place] | + + + | Address | Unknown | + + + | Phone | Unavailable | + + + Support + + + + + | Name | Relationship | Address | Phone | + + + + + | Hi Dawn | ECON | [place] | | | | | [address] | | + + + + + | Atif Delgadillo | ECON | [place], [place] | | | | | [address] | | + + + + + | Caleb Dawn | ECON | Unknown | | + + + + + Care Team Providers + +------+ + | Care Land Economist Name | Role | Phone | + +------+ + PCP | Unavailable | + +------+ + Encounter Details +--------+ + + + + | Date | Type | Department | Care Team | Description | +--------+ + + + + | 07/11/ | Abstract | [facility] | Freddy Sanchez | | | 2017 | | NEPHROLOGY [address] | M, DO [address] | | | | | [address] | [place] | | | | | [place], [place] | [place] | | | | | [address] | [address] | | | | | [phone] | | | +--------+ + + + [...] this encounter Progress Notes Tamara Alves - 07/11/2017 8:23 AM PDTOutside record: Progress notes from Quique delarosa MD, dos: 05/29/17. Sent to scan. 8 :23 AM PDTdocumented in this encounter Plan of Treatment +--------+ + + + + | Date | Type | Specialty | Care Team | Description | +--------+ + + + + | 04/27/ | Off-Site | Nephrology | Freddy Sanchez | | | 2019 | Visit | | DO [place] [facility] | | | | | | [place] | | | | | | [place] | | | | | | [address] | | | | | | | | +--------+ + + + + | 05/20/ | Office | Cardiology | Yumiko Del Valle, | | | 2019 | Visit | | MD Lupe TYLER | | | | | | [place] | | | | | | [phone] | | | | | | | | +--------+ + + + + documented as of this encounter Visit Diagnoses Not on filedocumented in this encounter"
--- OUTSIDE RECORDS SUMMARY | ~2019-10-22 | XMS | Encounter Summary ---
Demographics + + + | Address | [address] | | | [place] [address] | + + + | Home Phone | | + + + | Preferred Language | Unknown | + + + | Marital Status | Single | + + + | Cheondoism Affiliation | Unknown | + + + [...] [place] | | | | | [address] | | + + + + + | Atif Delgadillo | ECON | [place] | | | | | [address] | | + + + + + | Caleb Dawn | ECON | Unknown | | + + + + + Care Team Providers + +------+ + | Care Mobile Equipment Mechanic Name | Role | Phone | + +------+ + | Anoop Moyer MD | PCP | | + +------+ + Encounter Details +--------+ + + + + | Date | Type | Department | Care Team | Description | +--------+ + + + + | 04/10/ | Orders Only | [facility] [place] | Freddy Sanchez | Chronic kidney | | 2019 | | NEPHROLOGY [address] | M, DO [address] [place] | disease, stage III | | | | [address] | [place], [place] [address] | (moderate) (HCC) | | | | [place] | [place] | (Primary Dx); | | | | [address] | [address] | Hyperlipidemia, | | | | [phone] | | mixed; Type 2 | | | | | | diabetes mellitus | | | | | | with stage 3 chronic | | | | | | kidney disease, | | | | | | unspecified whether | | | | | | half-way insulin | | | | | | use (HCC) | +--------+ + + + + [...] encounter Progress Notes Merary Arciniega RN - 04/10/2019 9:09 AM PDTLabs for nephrology appt on 05/06/19 sent to [facility]. documented in this en counter Plan of Treatment +--------+ + + + + | Date | Type | Specialty | Care Team | Description | +--------+ + + + + | 03/16/ | Off-Site | Nephrology | Freddy Sanchez | | 2019 | Visit | | DO Anival Bhagat | | | | | | [place] | | | | | | [place] | | | | | | [address] | | | | | | | | +--------+ + + + + | 05/20/ | Office | Cardiology | Yumiko Del Valle, | | | 2019 | Visit | | MD Lupe TYLER | | | | | | [place] | | | | | | [phone] | | | | | | | | +--------+ + + + + + +------+--------+ + + | Name | Type | Priori | Associated Diagnoses | Order Schedule | | | | ty | | | + +------+--------+ + + | Vitamin D, | Lab | Routin | Chronic kidney | Expected: 04/29/2019 | | Deficiency Screen | | e | disease, stage III | (Approximate), | | (25-Hydroxy) | | | (moderate) (HCC) | Expires: 04/10/2020 | | | | | Hyperlipidemia, | | | | | | mixed Type 2 | | | | | | diabetes mellitus | | | | | | with stage 3 chronic | | | | | | kidney disease, | | | | | | unspecified whether | | | | | | half-way insulin | | | | | | use ([facility]) | | + +------+--------+ + + documented as of this encounter Visit Diagnoses + + | Diagnosis | + + | Chronic kidney disease, stage III (moderate) (HCC) - Primary Chronic kidney disease, | | Stage III (moderate) | + + | Hyperlipidemia, mixed Mixed hyperlipidemia | + + | Type 2 diabetes mellitus with stage 3 chronic kidney disease, unspecified whether long | | term insulin use (HCC) | + + documented in this encounter"
--- OUTSIDE RECORDS SUMMARY | ~2019-10-22 | XMS | Encounter Summary ---
Demographics + + + | Address | [address] | | | [place] [address] | + + + | Home Phone | | + + + | Preferred Language | Unknown | + + + | Marital Status | Single | + + + | Alevism Affiliation | Unknown | + + + | Race | Unknown | + + + | Ethnic Group | Unknown | + + + Author + + + | Author | [facility] | | | and [place] | + + + | Organization | [facility] | | | and [place] | + + + | Address | Unknown | + + + | Phone | Unavailable | + + + Support + + + + + | Name | Relationship | Address | Phone | + + + + + | Hi Dawn | ECON | [place] | | | | | [address] | | + + + + + | Atfi Delgadillo | ECON | [place], [place] | | | | | [address] | | + + + + + | Caleb Dawn | ECON | Unknown | | + + + + + Care Team Providers + +------+ + | Care Project Safety Manager Name | Role | Phone | + +------+ + PCP | Unavailable | + +------+ + Encounter Details +--------+ + + + + | Date | Type | Department | Care Team | Description | +--------+ + + + + | 04/17/ | Abstract | [facility] | Freddy Sanchez | | | 2014 | | NEPHROLOGY [address] | M, DO [address] | | | | | [address] | [place] | | | | | [place], [place] | [place] | | | | | [address] | [address] | | | | | [phone] | | | +--------+ + + + [...] | Visit | | M, DO [address] | | | | | | [place] | | | | | | [place] | | | | | | [address] | | | | | | | | +--------+ + + + + | 05/20/ | Office | Cardiology | Yumiko Del Valle, | | | 2019 | Visit | | [address] | | | | | | [place], [place] | | | | | | [address] | | | | | | | | +--------+ + + + + documented as of this encounter Procedures + +--------+ + + + | Procedure Name | Priori | Date/Time | Associated Diagnosis | Comments | | | ty | | | | + +--------+ + + + | EXTERNAL LAB: FATOUMATA | Routin | 04/16/2015 | | Results for this | | | e | | | procedure are in the | | | | | | results section. | + +--------+ + + + | EXTERNAL LAB: | Routin | 04/16/2015 | | Results for this | | GLUCOSE | e | | | procedure are in the | | | | | | results section. | + +--------+ + + + | EXTERNAL LAB: ALT | Routin | 04/16/2015 | | Results for this | | | e | | | procedure are in the | | | | | | results section. | + +--------+ + + + | EXTERNAL LAB: AST | Routin | 04/16/2015 | | Results for this | | | e | | | procedure are in the | | | | | | results section. | + +--------+ + + + | EXTERNAL LAB: | Routin | 04/16/2015 | | Results for this | | ALKALINE PHOSPHATASE | e | | | procedure are in the | | | | | | results section. | + +--------+ + + + | EXTERNAL LAB: | Routin | 04/16/2015 | | Results for this | | BILIRUBIN, TOTAL | e | | | procedure are in the | | | | | | results section. | + +--------+ + + + | EXTERNAL LAB: | Routin | 04/16/2015 | | Results for this | | ALBUMIN | e | | | procedure are in the | | | | | | results section. | + +--------+ + + + | EXTERNAL LAB: | Routin | 04/16/2015 | | Results for this | | PROTEIN, TOTAL | e | | | procedure are in the | | | | | | results section. | + +--------+ + + + | EXTERNAL LAB: | Routin | 04/16/2015 | | Results for this | | PHOSPHORUS | e | | | procedure are in the | | | | | | results section. | + +--------+ + + + | EXTERNAL LAB: | Routin | 04/16/2015 | | Results for this | | CALCIUM | e | | | procedure are in the | | | | | | results section. | + +--------+ + + + | EXTERNAL LAB: CARBON | Routin | 04/16/2015 | | Results for this | | DIOXIDE | e | | | procedure are in the | | | | | | results section. | + +--------+ + + + | EXTERNAL LAB: | Routin | 04/16/2015 | | Results for this | | CHLORIDE | e | | | procedure are in the | | | | | | results section. | + +--------+ + + + | EXTERNAL LAB: | Routin | 04/16/2015 | | Results for this | | POTASSIUM | e | | | procedure are in the | | | | | | results section. | + +--------+ + + + | EXTERNAL LAB: SODIUM | Routin | 04/16/2015 | | Results for this | | | e | | | procedure are in the | | | | | | results section. | + +--------+ + + + | EXTERNAL LAB: PTH, | Routin | 04/16/2015 | | Results for this | | INTACT | e | | | procedure are in the | | | | | | results section. | + +--------+ + + + | EXTERNAL LAB: | Routin | 04/16/2015 | | | | PROTEIN/CREATININE | e | | | | | RATIO | | | | | + +--------+ + + + | EXTERNAL LAB: | Routin | 04/16/2015 | | Results for this | | PROTEIN, URINE, 24HR | e | | | procedure are in the | | | | | | results section. | + +--------+ + + + | EXTERNAL LAB: CBC | Routin | 04/16/2015 | | Results for this | | | e | | | procedure are in the | | | | | | results section. | + +--------+ + + + | EXTERNAL LAB: | Routin | 04/16/2015 | | Results for this | | TRIGLYCERIDES | e | | | procedure are in the | | | | | | results section. | + +--------+ + + + | EXTERNAL LAB: | Routin | 04/16/2015 | | Results for this | | CHOLESTEROL, HDL | e | | | procedure are in the | | | | | | results section. | + +--------+ + + + | EXTERNAL LAB: | Routin | 04/16/2015 | | Results for this | | CHOLESTEROL, TOTAL | e | | | procedure are in the | | | | | | results section. | + +--------+ + + + | EXTERNAL LAB: | Routin | 04/16/2015 | | Results for this | | CHOLESTEROL, LDL | e | | | procedure are in the | | | | | | results section. | + +--------+ + + + | EXTERNAL LAB: EGFR | Routin | 04/16/2015 | | Results for this | | | e | | | procedure are in the | | | | | | results section. | + +--------+ + + + | EXTERNAL LAB: | Routin | 04/16/2015 | | Results for this | | CREATININE | e | | | procedure are in the | | | | | | results section. | + +--------+ + + + | CREATININE | Routin | 04/16/2015 | | Results for this | | CLEARANCE, RESULT | e | | | procedure are in the | | | | | | results section. | + +--------+ + + + | HEMOGLOBIN A1C | Routin | 04/16/2015 | | Results for this | | | e | | | procedure are in the | | | | | | results section. | + +--------+ + + + documented in this encounter Results Creatinine Clearance, Result (04/16/2015) + + + + + + | Component | Value | Ref Range | Performed | Pathologist | | | | | At | Signature | + + + + + + | CREATININE | 51.0 (A) | 97.0 - 137.0 | [facility] | | | CLEARANCE | | mL/min | [facility] | | | [facility] | | [facility] - | | | | | | [facility]ATORY | | + + + + + + | 24H Urine | 2,800 | mL | [facility] | | | [...] + | [address] | [address] | [place] | [phone] | | [facility] | | [address] | | | - LABORATORY | | | | + + + + + External Lab: Protein/Creatinine Ratio (04/16/2015) + + | Specimen | + + | | + + External Lab: PTH, Intact (04/16/2015) + +-------+ + + + | Component | Value | Ref Range | Performed | Pathologist | | | | | At | Signature | + +-------+ + + + | PTH Intact, | 112.9 | | | | | External | | | | | + +-------+ + + + + + | Specimen | + + | | + + Hemoglobin A1C (04/16/2015) + +-------+ + + + | Component | Value | Ref Range | Performed | Pathologist | | | | | At | Signature | + +-------+ + + + | Hemoglobin | 6.6 | % | EXTERNAL | | | [...] | + +---------+ + + External Lab: BUN (04/16/2015) + +-------+ + + + | Component | Value | Ref Range | Performed | Pathologist | | | | | At | Signature | + +-------+ + + + | BUN, | 42 | | EXTERNAL | | | External | | | LAB | | + +-------+ + + + + +---------+ + + | Performing | Address | City/State/Zipcode | Phone Number | | Organization | | | | + +---------+ + + | EXTERNAL LAB | | | | + +---------+ + + External Lab: Glucose (04/16/2015) + +-------+ + + + | Component | Value | Ref Range | Performed | Pathologist | | | | | At | Signature | + +-------+ + + + | Glucose, | 137 | | EXTERNAL | | | External | | | LAB | | + +-------+ + + + + +---------+ + + | Performing | Address | City/State/Zipcode | Phone Number | | Organization | | | | + +---------+ + + | EXTERNAL LAB | | | | + +---------+ + + External Lab: ALT (04/16/2015) + +-------+ + + + | Component | Value | Ref Range | Performed | Pathologist | | | | | At | Signature | + +-------+ + + + | ALT, | 19 | | EXTERNAL | | | External | | | LAB | | + +-------+ + + + + +---------+ + + | Performing | Address | City/State/Zipcode | Phone Number | | Organization | | | | + +---------+ + + | EXTERNAL LAB | | | | + +---------+ + + External Lab: AST (04/16/2015) + +-------+ + + + | Component | Value | Ref Range | Performed | Pathologist | | | | | At | Signature | + +-------+ + + + | AST, | 13 | | EXTERNAL | | | External | | | LAB | | + +-------+ + + + + +---------+ + + | Performing | Address | City/State/Zipcode | Phone Number | | Organization | | | | + +---------+ + + | EXTERNAL LAB | | | | + +---------+ + + External Lab: Alkaline Phosphatase (04/16/2015) + +-------+ + + + | Component | Value | Ref Range | Performed | Pathologist | | | | | At | Signature | + +-------+ + + + | ALP, | 63 | | EXTERNAL | | | External | | | LAB | | + +-------+ + + + + +---------+ + + | Performing | Address | City/State/Zipcode | Phone Number | | Organization | | | | + +---------+ + + | EXTERNAL LAB | | | | + +---------+ + + External Lab: Bilirubin, Total (04/16/2015) + +-------+ + + + | Component [...] + +---------+ + + External Lab: Albumin (04/16/2015) + +-------+ + + + | Component [...] +---------+ + + External Lab: Protein, Total (04/16/2015) + +-------+ + + + | Component | Value | Ref Range | Performed | Pathologist | | | | | At | Signature | + +-------+ + + + | Protein, | 6.8 | | EXTERNAL | | | Total, | | | LAB | | | External | | | | | + +-------+ + + + + +---------+ + + | Performing | Address | City/State/Zipcode | Phone Number | | Organization | | | | + +---------+ + + | EXTERNAL LAB | | | | + +---------+ + + External Lab: Phosphorus (04/16/2015) + +-------+ + + + | Component | Value | Ref Range | Performed | Pathologist | | | | | At | Signature | + +-------+ + + + | Phosphorus, | 3.2 | | EXTERNAL | | | External | | | LAB | | + +-------+ + + + + +---------+ + + | Performing | Address | City/State/Zipcode | Phone Number | | Organization | | | | + +---------+ + + | EXTERNAL LAB | | | | + +---------+ + + External Lab: Calcium (04/16/2015) + +-------+ + + + | Component | Value | Ref Range | Performed | Pathologist | | | | | At | Signature | + +-------+ + + + | Calcium, | 9.7 | | EXTERNAL | | | External | | | LAB | | + +-------+ + + + + +---------+ + + | Performing | Address | City/State/Zipcode | Phone Number | | Organization | | | | + +---------+ + + | EXTERNAL LAB | | | | + +---------+ + + External Lab: Carbon Dioxide (04/16/2015) + +-------+ + + + | Component | Value | Ref Range | Performed | Pathologist | | | | | At | Signature | + +-------+ + + + | Carbon | 25 | | EXTERNAL | | | Dioxide, | | | LAB | | | External | | | | | + +-------+ + + + + +---------+ + + | Performing | Address | City/State/Zipcode | Phone Number | | Organization | | | | + +---------+ + + | EXTERNAL LAB | | | | + +---------+ + + External Lab: Chloride (04/16/2015) + +-------+ + + + | Component | Value | Ref Range | Performed | Pathologist | | | | | At | Signature | + +-------+ + + + | Chloride, | 102 | | EXTERNAL | | | External | | | LAB | | + +-------+ + + + + +---------+ + + | Performing | Address | City/State/Zipcode | Phone Number | | Organization | | | | + +---------+ + + | EXTERNAL LAB | | | | + +---------+ + + External Lab: Potassium (04/16/2015) + +-------+ + + + | Component | Value | Ref Range | Performed | Pathologist | | | | | At | Signature | + +-------+ + + + | Potassium, | 4.8 | | EXTERNAL | | | External | | | LAB | | + +-------+ + + + + +---------+ + + | Performing | Address | City/State/Zipcode | Phone Number | | Organization | | | | + +---------+ + + | EXTERNAL LAB | | | | + +---------+ + + External Lab: Sodium (04/16/2015) + +-------+ + + + | Component | Value | Ref Range | Performed | Pathologist | | | | | At | Signature | + +-------+ + + + | Sodium, | 141 | | EXTERNAL | | | External | | | LAB | | + +-------+ + + + + +---------+ + + | Performing | Address | City/State/Zipcode | Phone Number | | Organization | | | | + +---------+ + + | EXTERNAL LAB | | | | + +---------+ + + External Lab: Protein, Urine, 24Hr (04/16/2015) + +-------+ + + + | Component | Value | Ref Range | Performed | Pathologist | | | | | At | Signature | + +-------+ + + + | Protein, | 168 | | EXTERNAL | | | Urine [...] | + +---------+ + + External Lab: EPIFANIO (04/16/2015) + +-------+ + + + | Component | Value | Ref Range | Performed | Pathologist | | | | | At | Signature | + +-------+ + + + | WBC, | 5.7 | | EXTERNAL | | | External | | | LAB | | + +-------+ + + + | HGB, | 14 | | EXTERNAL | | | External | | | LAB | | + +-------+ + + + | HCT, | 40.9 | | EXTERNAL | | | External | | | LAB | | + +-------+ + + + | PLT, | 128 | | EXTERNAL | | | External | | | LAB | | + +-------+ + + + | RBC, | 4.6 | | EXTERNAL | | | External | | | LAB | | + +-------+ + + + | MCV, | 89 | | EXTERNAL | | | External | | | LAB | | + +-------+ + + + | RDW, | 14.5 | | EXTERNAL | | | External | | | LAB | | + +-------+ + + + + +---------+ + + | Performing | Address | City/State/Zipcode | Phone Number | | Organization | | | | + +---------+ + + | EXTERNAL LAB | | | | + +---------+ + + External Lab: Triglycerides (04/16/2015) + +-------+ + + + | Component | Value | Ref Range | Performed | Pathologist | | | | | At | Signature | + +-------+ + + + | Triglycerid | 180 | | EXTERNAL | | | es, [...] +---------+ + + External Lab: Cholesterol, HDL (04/16/2015) + +-------+ + + + | Component | Value | Ref Range | Performed | Pathologist | | | | | At | Signature | + +-------+ + + + | HDL | 30.0 | | EXTERNAL | | | Cholesterol [...] +---------+ + + External Lab: Cholesterol, Total (04/16/2015) + +-------+ + + + | Component | Value | Ref Range | Performed | Pathologist | | | | | At | Signature | + +-------+ + + + | Cholesterol | 136 | | EXTERNAL | | | , Total, [...] +---------+ + + External Lab: Cholesterol, LDL (04/16/2015) + +-------+ + + + | Component | Value | Ref Range | Performed | Pathologist | | | | | At | Signature | + +-------+ + + + | LDL | 36 | | EXTERNAL | | | Cholesterol [...] + +---------+ + + External Lab: eGFR (04/16/2015) + +-------+ + + + | Component [...] + +---------+ + + External Lab: Creatinine (04/16/2015) + +-------+ + + + | Component | Value | Ref Range | Performed | Pathologist | | | | | At | Signature | + +-------+ + + + | Creatinine, | 2.27 | | EXTERNAL | | | External [...]
--- OUTSIDE RECORDS SUMMARY | ~2019-10-22 | XMS | Encounter Summary ---
Demographics + + + | Address | [address] | | | [place] [address] | + + + | Home Phone | | + + + | Preferred Language | Unknown | + + + | Marital Status | Single | + + + | Yazdanism Affiliation | Unknown | + + + | Race | Unknown | + + + | Ethnic Group | Unknown | + + + Author + + + | Author | [facility] | | | and [place] | + + + | Organization | [facility] | | | and [place] | + + + | Address | Unknown | + + + | Phone | Unavailable | + + + Support + + + + + | Name | Relationship | Address | Phone | + + + + + | Hi Dawn | ECON | [place] | | | | | [address] | | + + + + + | Atif Delgadillo | ECON | [place], [place] | | | | | [address] | | + + + + + | Caleb Dawn | ECON | Unknown | | + + + + + Care Team Providers + +------+ + | Care Plush Weaver Name | Role | Phone | + +------+ + PCP | Unavailable | + +------+ + Reason for Visit + + + | Reason | Comments | + + + | Blood Pressure | | + + + Encounter Details +--------+ + + + + | Date | Type | Department | Care Team | Description | +--------+ + + + + | 07/06/ | Telephone | [facility] | Freddy Sanchez | Blood Pressure | | 2016 | | NEPHROLOGY [address] | M, DO [address] | | | | | [address] | [place] | | | | | [place], [place] | [facility] [place] | | | | | [address] | [address] | | | | | [phone] | | | +--------+ + + + [...] 2019 | Visit | | DO [address] [place] [address] | | | | | | [address] | | | | | | [place] | | | | | | [address] | | | | | | | | +--------+ + + + + | 05/20/ | Office | Cardiology | Yumiko Del Valle, | | | 2019 | Visit | | MD Lupe [address] | | | | | | [place] | | | | | | [address] | | | | | | | | +--------+ + + + + documented as of this encounter Visit Diagnoses Not on filedocumented in this encounter"
--- OUTSIDE RECORDS SUMMARY | ~2019-10-22 | XMS | Encounter Summary ---
Demographics + + + | Address | [address] | | | [place] [address] | + + + | Home Phone | | + + + | Preferred Language | Unknown | + + + | Marital Status | Single | + + + | Nondenominational Affiliation | Unknown | + + + [...] [place] | | | | | [address] | | + + + + + | Atif Delgadillo | ECON | [place] | | | | | [address] | | + + + + + | Caleb Dawn | ECON | Unknown | | + + + + + Care Team Providers + +------+ + | Care Funeral Director/Embalmer Name | Role | Phone | + +------+ + | Anoop Moyer MD | PCP | | + +------+ + Encounter Details +--------+ + + + + | Date | Type | Department | Care Team | Description | +--------+ + + + + | 09/26/ | Abstract | [facility] | Freddy Sanchez | | | 2019 | | NEPHROLOGY [address] | M, DO [address] | | | | | [address] [facility] | [place] | | | | | [place], [place] | [place], [place] | | | | | [address] | [address] | | | | | [phone] | | | +--------+ + + + [...] [address] | | | | | | [place] | | | | | | [place] | | | | | | [address] | | | | | | | | +--------+ + + + + | 05/20/ | Office | Cardiology | Yumiko Del Valle, | | | 2019 | Visit | | [address] | | | | | | [place] | | | | | | [address] | | | | | | | | +--------+ + + + + documented as of this encounter Procedures + +--------+ + + + | Procedure Name | Priori | Date/Time | Associated Diagnosis | Comments | | | ty | | | | + +--------+ + + + | HEMOGLOBIN A1C | Routin | 07/26/2019 | | Results for this | | | e | | | procedure are in the | | | | | | results section. | + +--------+ + + + documented in this encounter Results Hemoglobin A1C (07/26/2019) + +-------+ + + + | Component | Value | Ref Range | Performed | Pathologist | | | | | At | Signature | + +-------+ + + + | Hemoglobin | 5.6 | % | | | | A1c | | | | | + +-------+ + + + + + | Specimen | + + | Blood | + + documented in this encounter Visit Diagnoses Not on filedocumented in this encounter"
--- OUTSIDE RECORDS SUMMARY | ~2019-10-22 | XMS | Encounter Summary ---
Demographics + + + | Address | [address] | | | [place] [address] | + + + | Home Phone [...] + + + | Author | [facility] | | | and [place] | + + + | Organization | [facility] | | | and [place] | + + + | Address | Unknown | + + + | Phone | Unavailable | + + + Support + + + + + | Name | Relationship | Address | Phone | + + + + + | Hi Dawn | ECON | [place] | | | | | [address] | | + + + + + | Atif Delgadillo | ECON | [place] | | | | | [address] | | + + + + + | Caleb Dawn | ECON | Unknown | | + + + + + Care Team Providers + +------+ + | Care Compliance Auditor Name | Role | Phone | + [...] + + | 04/05/ | Telephone | [facility] | Freddy Sanchez | Medication Follow-up | | 2019 | | NEPHROLOGY [address] | M, DO [address] | | | | | [address] | [place] | | | | | [place], [place] | [place] | | | | | [address] | [id number] | | | | | [phone] | | | +--------+ + + + [...] | Visit | | DO Anival [address] | | | | | | [address] | | | | | | [place] | | | | | | [address] | | | | | | | | +--------+ + + + + | 05/20/ | Office | Cardiology | Yumiko Del Valle, | | | 2019 | Visit | | MD Lupe TYLER | | | | | | [place] | | | | | | [phone] | | | | | | | | +--------+ + + + + documented as of this encounter Visit Diagnoses Not on filedocumented in this encounter"
--- OUTSIDE RECORDS SUMMARY | ~2019-10-22 | XMS | Encounter Summary ---
Demographics + + + | Address | [address] | | | [place] [address] | + + + | Home Phone [...] [place] | | | | | [address] | | + + + + + | Atif Delgadillo | ECON | [place], [place] | | | | | [address] | | + + + + + | Caleb Dawn | ECON | Unknown | | + + + + + Care Team Providers + +------+ + | Care Revising Clerk Name | Role | Phone | + +------+ + PCP | Unavailable | + +------+ + Encounter Details +--------+ + + + + | Date | Type | Department | Care Team | Description | +--------+ + + + + | 05/04/ | Abstract | [facility] | Freddy Sanchez | | | 2017 | | NEPHROLOGY [address] | M, DO [address] | | | | | [address] | [place] | | | | | [place], [place] | [place] | | | | | [address] | [address] | | | | | [phone] | | | +--------+ + + + [...] this encounter Progress Notes Tamara Alves - 05/04/2017 1:31 PM PDTOutside records: Standing labs orders from [facility] [place]. Dos: 05/03/17. Sent to scan. documented in this encounter Plan of Treatment +--------+ + + + + | Date | Type | Specialty | Care Team | Description | +--------+ + + + + | 03/16/ | Off-Site | Nephrology | Freddy Sanchez | | | 2019 | Visit | | DO [address] [facility] | | | | | | [address] | | | | | | [place] | | | | | | [address] | | | | | | | | +--------+ + + + + | 05/20/ | Office | Cardiology | Yumiko Del Valle, | | | 2019 | Visit | | MD Lupe TYLER | | | | | | [place] | | | | | | [phone] | | | | | | | | +--------+ + + + + documented as of this encounter Visit Diagnoses Not on filedocumented in this encounter"
--- OUTSIDE RECORDS SUMMARY | ~2019-10-22 | XMS | Encounter Summary ---
Demographics + + + | Address | [address] | | | [place] [address] | + + + | Home Phone [...] [place] | | | | | [phone] | | + + + + + | Atif Delgadillo | ECON | [place], [place] | | | | | [address] | | + + + + + | Caleb Dawn | ECON | Unknown | | + + + + + Care Team Providers + +------+ + | Care Vocational Teacher Name | Role | Phone | + +------+ + PCP | Unavailable | + +------+ + Reason for Visit + + + | Reason | Comments | + + + | Chronic Kidney | Stage 3-4 | | Disease | | + + + Encounter Details +--------+---------+ + + + | Date | Type | Department | Care Team | Description | +--------+---------+ + + + | 09/04/ | Office | [facility] | Freddy Sanchez | Chronic kidney | | 2012 | Visit | NEPHROLOGY [address] | M, DO [address] | disease, stage III | | | | [address] | [place] [place] [address] | (moderate) (Primary | | | | [place] | [place] | Dx); Unspecified | | | | [address] | [id number] | hypertensive kidney | | | | [phone] | | disease with chronic | | | | | | kidney disease | | | | | | stage I through | | | | | | stage IV, or | | | | | | unspecified; Type II | | | | | | or unspecified type | | | | | | diabetes mellitus | | | | | | with renal | | | | | | manifestations, not | | | | | | stated as | | | | | | uncontrolled (HCC); | | | | | | Other and | | | | | | unspecified | | | | | | hyperlipidemia | +--------+---------+ + + + Social History [...] + | Blood Pressure | 144/70 | 09/04/2013 10:53 AM | | | | | PDT | | + + + + + | Pulse | 60 | 09/04/2013 10:53 AM | | | | | PDT | | + + + + + | Temperature | 36.7 C (98.1 F) | 09/04/2013 10:53 AM | | | | | PDT | | + + + + + | Respiratory Rate | 14 | 09/04/2013 10:53 AM | | | | | PDT | | + + + + + | Oxygen Saturation | 98% | 09/04/2013 10:53 AM | | | | | PDT | | + + + + + | Inhaled Oxygen | - | - | | | Concentration | | | | + + + + + | Weight | 127.6 kg (281 lb 4.8 | 09/04/2013 10:53 AM | | | | oz) | PDT | | + + + + + | Height | 188.6 cm (6' 2.25") | 09/04/2013 10:53 AM | | | | | PDT | | + + + + + | Body Mass Index | 35.87 | 09/04/2013 10:53 AM | | | | | PDT | | + + + + + documented in this encounter Progress Notes Freddy Sanchez, - 09/04/2013 4:49 PM PDT Subjective: NEPHROLOGY CONSULT Referring Provider: Quique Garza M.D. Reason for consultation: CKD Patient ID: Steve Tanner is a 68 y.o. male. HPI Comments: Asked to see this very pleasant 68-year-old white male for CKD. Apparently he has had a slow steady rise his Scr over the last 2 year. His Scr was 1.6 mg/dl on 012, increased to 2.27 mg/dl on 08/12/13, and is now up to 2.77 mg/dl. He does admit to a l engthy history of Type II DM altogether x20 years. He denies a known history of retinopathy. He also admits to hypertension x20 years. He denies acute OK, CHF, viral hepatitis, rust y urine, or hematuria. He does admit to taking OTC ibuprofen, 1-2 tablets, b.i.d. for 6 months but quit this prac kurt approximately 4 months ago. A 24-hour urine has been obtained which shows a Ccr = 36 m L/minute, with protein = 228 mg/day. He has had a positive urine microalbumin: Cr ratio at 1 51 mg/g Cr as early as 01/18/10, compatible with diabetic glomerulosclerosis. Renal ultrasound has been obtained which showed the right kidney 11.8 cm, left 11.5 cm, no evidence of obstr uction. He has had some intermittent ankle edema requiring diuretics. 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 Past Medical History: 1. 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 2. Hypertension x20 years, per the patient. 3. ASCVD, diagnosed upper TIA 2005. A workup revealed left ICA stenosis for which he under went left CEA. 4. Gouty arthritis diagnosed in the last 6 months. 5. Hyperlipidemia of unknown duration possibly dating back to 2005. Patient is not complet itzel sure. 6. History of QUIANA, treated with BiPAP x 6 months. Past Surgical History: 1. Appendectomy, 1955. 2. Repair of umbilical hernia, 1959. 3. Nasal surgery, [facility]; 1972. 4. Lumbar laminectomy, 1985. 5. Tonsillectomy, adenoidectomy, rhinoplasty, 2002. 6. Left CEA, 2005. Outpatient Prescriptions Marked as Taking for the 09/04/13 encounter (Office Visit) with Roxana Sanchez, DO Medication Status Sig Dispense Refill aspirin 325 mg tablet Active Take 325 mg by mouth Daily. atenolol (TENORMIN) 100 MG tablet Active Take 100 mg by mouth Daily. clopidogrel (PLAVIX) 75 mg tablet Active Take 75 mg by mouth Daily. colchicine-probenecid 0.5-500 MG per tablet Active Take 1 tablet by mouth Daily. diltiazem (CARDIZEM CD) 180 mg 24 hr capsule Active Take 180 mg by mouth Daily. furosemide (LASIX) 20 mg tablet Active Take 20 mg by mouth Daily. gemfibrozil (LOPID) 600 mg tablet Active Take 600 mg by mouth 2 times daily (before ofelia ls). Linagliptin (TRADJENTA) 5 MG TABS Active Take 5 mg by mouth Daily. loratadine-pseudoePHEDrine (CLARITIN-D 12 HOUR) 5-120 mg per tablet Active Take 1 table t by mouth as needed. metFORMIN (GLUCOPHAGE) 500 mg tablet Active Take 2,000 mg by mouth daily (with breakfas t). mometasone (ELOCON) 0.1 % cream Active Apply topically Daily as needed. niacin 500 mg tablet Active Take 500 mg by mouth daily (with breakfast). olmesartan-hydrochlorothiazide (BENICAR HCT) 40-12.5 MG per tablet Discontinued Take 1 tablet by mouth Daily. simvastatin (ZOCOR) 10 mg tablet Active Take 10 mg by mouth nightly. terbinafine (LAMISIL) 250 MG tablet Active Take 250 mg by mouth Daily. Allergies Allergen Reactions Atorvastatin Lisinopril Penicillins Rash Social History: Smoking: Denies. EtOH: Admits to drinking roughly 2 beers/week, but quit this approximately 2 years ago. , lives independently. 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 Family History: Father: at age 62 of complications of alcoholism, cirrhosis. Mother: age 68 following postop complications of repair of a aortic-enteric fistu la. She then had a PE. Prior to that she had a CABG, x3 vessels. No history of CKD in his parents. No siblings. Review of Systems General : Denies fever, chills, night sweats , weight loss in last 6 months. HEENT: Denies headache, blurred vision, diplopia, recurrent epistaxis, sinusitis, or phary ngitis. Cardiovascular: Denies chest pain, palpitations, orthopnea, or PND. Pulmonary: Denies cough, hemoptysis, wheezing or shortness of breath. GI: Denies epigastric pain, melena, hematochezia, change in caliber of stools,or change in bowel habits. : Denies dysuria, hematuria, frequency , fabienne urine, or flank pain. Endocrine: Denies polyuria, polydipsia, temperature intolerance, or thyroid disorders. Hematologic: Denies any rashes, purpura, bleeding gums, petechiae, or easy bruising. Musculoskeletal: Denies joint pain, swelling, arthralgias, joint tenderness, synovitis, or deformity. Neuropsychiatric: Denies seizures, syncope, insomnia, depression, or suicidal ideation. Objective: Blood pressure 144/70, pulse 60, temperature 36.7 C (98.1 F), temperature so urce Oral, resp. rate 14, height 1.886 m (6' 2.25"), weight 127.597 kg (281 lb 4.8 oz), SpO2 98.00%. Physical Exam Constitutional: This is a well-developed, well-nourished, 68 year-old white male who is alert and orie nted x3, and in NAD. HENT: Normocephalic. Pupils are 2.5 mm x 2.5 mm and reactive. EOMI. Fundoscopic exam is di fficult, but there is some bilateral AV nicking, no papilledema or hemmorhage. Posterior ph arynx is clear. Neck: JVP's are < 7 cm at 45, no thyromegaly. Cardiovascular: Regular rate and rhythm, with no S3, S4, murmur or rub. Pulmonary/Chest: CTA in all linton. No rales or wheezes. Abdominal: Soft, flat, nontender, normoactive bowel sounds, no organomegaly, no guarding, no bru it. Musculoskeletal: 1-2 + edema, no clubbing, cyanosis, or asterixis. No foot ulcers. Neurological: Nonfocal, nonlateralizing. Lab Results Component Value Date BUN 75 08/30/2013 NA 140 08/30/2013 K 4.7 08/30/2013 CL 106 08/30/2013 CO2 23 08/30/2013 Cr 2.77 Lab Results Component Value Date PTH 150.9 08/30/2013 CALCIUM 9.5 08/30/2013 PHOS 4.2* 08/30/2013 Hbaic 6.1% Lab Results Component Value Date WBC 5.2 08/30/2013 HGB 12.8 08/30/2013 HCT 38.2 08/30/2013 MCV 95.1 08/30/2013 PLT 177 08/30/2013 24 Hr Urine: as above. Assessment: 1. CKD Stage 3--likely secondary to diabetic glomerulosclerosis and hypertensive nephroscl erosis. Less likely occult myeloma kidney, doubt. 2. SHPTH secondary to #1. 3. Hypertension--good control. 4. Type 2 DM--good control. 5. ASCVD--s/p left CEA, 2005. 6. Hyperlipidemia--good control on statin Rx. 7. History of gout--quiescent. Plan: 1. I discussed with Dr. Tanner that the mainstay of preventing progression of his CKD is optimal glycemic control, as he is doing, and good control of his BP with target BP < 130/8 0 mmHg, which he has. 2. He may benefit from use of a low dose ARB at some point for its renoprotective effect. Note that he had intolerance to ACEI's in the past. 3. I would be in favor of discontinuing the Metformin at his current GFR to avoid the pote ntial and real risk of lactic acidosis. I did have a marin discussion with Steve about th is, as we have had 2 cases of this in [facility] alone, in the last 6 months. 4. Given his established ASCVD, I told him that I would be in favor of early tx of his SHP TH to avoid progression. Therefore, will start Calcitriol 0.5 mcg, daily, to target the PTH < 70 pg/ml. 5. He appears clinically above his physiologic dry weight, therefore, I took the liberty o f increasing his lasix to 40 mg daily, to avoid any pulm venous congestion at HS. He was ca utioned to avoid all NSAID's as this could acutely impair his renal blood flow. 6. Will plan to see him back in 3 months at the [facility], [place], [place]. He will have a CBC, CMP, PO4, PTH, Hbaic, and 24 hr urine 1 week before. CC: Hema Garza MD, [place], [place] documented in thi s encounter Plan of Treatment +--------+ + + + + | Date | Type | Specialty | Care Team | Description | +--------+ + + + + | 03/16/ | Off-Site | Nephrology | Freddy Sanchez | | | 2019 | Visit | | DO [address] | | | | | | [place] | | | | | | [place], [place] | | | | | | [phone] | | | | | | | | +--------+ + + + + | 05/20/ | Office | Cardiology | Yumiko Del Valle, | | | 2019 | Visit | | MD [address] | | | | | | [place] | | | | | | [phone] | | | | | | | | +--------+ + + + + documented as of this encounter Visit Diagnoses + + | Diagnosis | + + | Chronic kidney disease, stage III (moderate) (HCC) - Primary Chronic kidney disease, | | Stage III (moderate) | + + | Unspecified hypertensive kidney disease with chronic kidney disease stage I through | | stage IV, or unspecified(403.90) Unspecified hypertensive kidney disease with chronic | | kidney disease stage I through stage IV, or unspecified | + + | Type II or unspecified type diabetes mellitus with renal manifestations, not stated as | | uncontrolled(250.40) ([facility]) Type II or unspecified type diabetes mellitus with renal | | manifestations, not stated as uncontrolled | + + | Other and unspecified hyperlipidemia | + + documented in this encounter
--- OUTSIDE RECORDS SUMMARY | ~2019-10-22 | XMS | Encounter Summary ---
Demographics + + + | Address | [address] | | | [place] [address] | + + + | Home Phone | | + + + | Preferred Language | Unknown | + + + | Marital Status | Single | + + + | Jehovah'S Witness Affiliation | Unknown | + + + | Race | Unknown | + + + | Ethnic Group | Unknown | + + + Author + + + | Author | [facility] | | | and [place] | + + + | Organization | [facility] | | | and [place] | + + + | Address | Unknown | + + + | Phone | Unavailable | + + + Support + + + + + | Name | Relationship | Address | Phone | + + + + + | Hi Dawn | ECON | [place] | | | | | [address] | | + + + + + | Atif Delgadillo | ECON | [place], [place] | | | | | [address] | | + + + + + | Caleb Dawn | ECON | Unknown | | + + + + + Care Team Providers + +------+ + | Care Rn Clinical Appeals Name | Role | Phone | + +------+ + PCP | Unavailable | + +------+ + Reason for Visit + + + | Reason | Comments | + + + | Establish Care | | + + + | Chest Pain | Abnormal EKG | + + + | Dizziness | E.R. visit 12/14/13 | + + + Encounter Details +--------+---------+ + + + | Date | Type | Department | Care Team | Description | +--------+---------+ + + + | 01/03/ | Office | [facility] | Logan Baca, | CHF (congestive | | 2013 | Visit | CARDIOLOGY [address] | heart failure) ([facility]) | | | | [place], | [place], | (Primary Dx); | | | | [place] [address] | [place] [address] | Hypertension | | | | [phone] | [phone] | | | | | | | [...] + + + | Blood Pressure | 170/76 | 01/03/2014 9:47 AM | | | | | PST | | + + + + + | Pulse | 80 | 01/03/2014 9:42 AM | regular | | | | PST | | + + + + + | Temperature | - | - | | + + + + + | Respiratory Rate | 18 | 01/03/2014 9:42 AM | | | | | PST | | + + + + + | Oxygen Saturation | - | - | | + + + + + | Inhaled Oxygen | - | - | | | Concentration | | | | + + + + + | Weight | 125.6 kg (277 lb) | 01/03/2014 9:42 AM | | | | | PST | | + + + + + | Height | 190.5 cm (6' 3") | 01/03/2014 9:42 AM | | | | | PST | | + + + + + | Body Mass Index | 34.62 | 01/03/2014 9:42 AM | | | | | PST | | + + + + + documented in this encounter Patient Instructions Patient Instructions Yovana Garrison RN - 01/03/2014 10:19 AM PST1. Start Furosemide 40mg - one by mouth twice daily, take at 8am and 1pm 2. Check blood pressure and pulse twice daily 3. Check blood test in about one week 4. Follow up with [facility] in 2-4 weeks. documented in this encounter Progress Notes Logan Baca MD - 01/03/2014 9:41 AM PSTFormatting of this note might be different f rom the original. Subjective: Cardiology Office Visit Date of Service: 01/03/2014 Patient ID: SERGEI TANNER is a 68 y.o. male. PCP: Quique RIVAS SERGEI TANNER is a 68 y.o. 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 He is being seen today for follow up of congestive heart f ailure and hypertension. Patient was recently admitted to [facility] with a profound anemia with hemoglobin of 7.5 f rom upper to get bleeding from 12/14-12/19/13. Endoscopy on 12/16/13 shows a gastric erosion. P atient received 5 units of packed red blood cells. He developed a transient hypotension with negative cardiac enzyme. Echocardiogram and Regadenoson SPECT MPI well were performed. Furo semide was discontinued because of the hypotension. Today, patient is feeling better. His main complaint is a persistent leg swelling on both sides. There is no chest pain or chest discomfort both at rest and on exertion. Patient de nies breathlessness. There is no palpitation dizziness or lightheadedness. Patient can sl eep on one pillow at night without difficulty breathing. Patient Active Problem List Diagnosis Type II or unspecified type diabetes mellitus with renal manifestations, not stated as uncontrolled Unspecified hypertensive kidney disease with chronic kidney disease stage I through sta ge IV, or unspecified Chronic kidney disease, stage III (moderate) Other and unspecified hyperlipidemia Acute GI bleeding Gastric ulcer with hemorrhage Light headedness Hypertension Hyperlipidemia ASCVD (arteriosclerotic cardiovascular disease) Hypotension Chest pain Past Surgical History Procedure Date Carotid endarterectomy 09/2006 Lumbar laminectomy 1985 Fess 2003 Hernia repair 1960 Umbilical Appendectomy 1956 Colonoscopy 1984 Tonsillectomy and adenoidectomy Family History Problem Relation Age of Onset Heart disease Mother Family Status Relation Status Age Mother 79 CORONARY ARTERY DISEASE Father 63 ALCOHOL ABUSE History Social History Marital Status: Single Spouse Name: N/A Number of Children: 0 Years of Education: N/A Occupational History [employer], [place], [place] Social History Main Topics Smoking status: Never Smoker Smokeless tobacco: Never Used Alcohol Use: No Drug Use: No Sexually Active: None Other Topics Concern None Social History Narrative Exercise:NoneCaffeine:1-2 cups of coffee dailyLiving situation: Alone Current Outpatient Prescriptions Medication Sig Dispense Refill allopurinol (ZYLOPRIM) 100 mg tablet Take 100 mg by mouth 2 times daily. 30 tablet 0 calcitriol (ROCALTROL) 0.25 mcg capsule Take 0.25 mcg by mouth Daily. carvedilol (COREG) 12.5 mg tablet Take 1 tablet by mouth 2 times daily (with breakfast & dinner). 60 tablet 3 darbepoetin easton (ARANESP) 60 mcg/mL injection Inject 60 mcg under the skin every 14 da ys. furosemide (LASIX) 40 mg tablet Take 1 tablet by mouth 2 times daily. 60 tablet 6 niacin 500 mg tablet Take 500 mg by mouth 2 times daily. nitroglycerin (NITROSTAT) 0.[address] 0.4 mg under the tongue every 5 minute s as needed. omeprazole (PRILOSEC) 40 MG capsule Take 1 capsule by mouth Daily. 90 capsule 3 oxyCODONE-acetaminophen (PERCOCET) 5-325 mg per tablet Take 1 tablet by mouth every 6 h ours as needed. sucralfate (CARAFATE) 1 g tablet Take 1 tablet by mouth 4 times daily. 120 tablet 2 Allergies Allergen Reactions Lisinopril Penicillins Rash Review of Systems Constitutional: Positive for activity change and unexpected weight change. Negative for fev er, chills, diaphoresis, appetite change and fatigue. HENT: Positive for congestion and tinnitus. Negative for hearing loss, nosebleeds and denta l problem. Eyes: Negative for visual disturbance. Respiratory: Positive for apnea. Negative for cough, chest tightness, shortness of breath, wheezing and stridor. Cardiovascular: Positive for leg swelling. Negative for chest pain and palpitations. Gastrointestinal: Positive for constipation. Negative for nausea, vomiting, diarrhea, blood in stool and anal bleeding. Genitourinary: Negative for urgency, frequency, decreased urine volume and difficulty urina ting. Musculoskeletal: Positive for myalgias, joint swelling and arthralgias. Negative for back p ain and gait problem. Skin: Positive for rash. Negative for wound. Neurological: Positive for weakness and numbness. Negative for dizziness, tremors, seizures , syncope, facial asymmetry, speech difficulty, light-headedness and headaches. Hematological: Negative for adenopathy. Does not bruise/bleed easily. Psychiatric/Behavioral: Negative for confusion, sleep disturbance and decreased concentrati on. The patient is not nervous/anxious. Objective: Physical Exam Constitutional: He is oriented to person, place, and time. He appears well-developed and we ll-nourished. Carmina individual, looks pale but no acute distress. Neck: No hepatojugular reflux and no JVD present. Carotid bruit is not present. Cardiovascular: Normal rate, regular rhythm, S1 normal, S2 normal, normal heart sounds, int act distal pulses and normal pulses. PMI is not displaced. Exam reveals no gallop, no S3, no S4, no distant heart sounds and no friction rub. No murmur heard. Pulmonary/Chest: Effort normal and breath sounds normal. No accessory muscle usage. No resp iratory distress. He has no wheezes. He has no rhonchi. He has no rales. Abdominal: Soft. Normal aorta and bowel sounds are normal. There is no tenderness. Musculoskeletal: He exhibits edema (bilateral 3+ leg pitting edema.). Neurological: He is alert and oriented to person, place, and time. Skin: No cyanosis. Nails show no clubbing. Psychiatric: He has a normal mood and affect. His mood appears not anxious. He does not exh ibit a depressed mood. BP 170/76 | Pulse 80 | Resp 18 | Ht 1.905 m (6' 3") | Wt 125.646 kg (277 lb) | BMI 34.62 kg /m2 ECG: Sinus rhythm, normal EKG. Lab Results Component Value Date MCV 95.1 08/30/2013 Lab Results Component Value Date GLU 119 08/30/2013 NA 140 08/30/2013 K 4.7 08/30/2013 CL 106 08/30/2013 CO2 23 08/30/2013 CALCIUM 9.5 08/30/2013 ALKPHOS 70 08/30/2013 BILITOT 0.4 08/30/2013 BUN 75 08/30/2013 No results found for this basename: chol, trig, ldlcalc, hdl I personally reviewed records from another healthcare provider. Assessment: 1. Congestive heart failure with preserved left ventricular ejection fraction A. Patient was recently admitted to [facility] with a profound anemia with hemoglobin of 7 .5 from upper to get bleeding from 12/14-12/19/13. Endoscopy on 12/16/13 shows a gastric erosio n. Patient received 5 units of packed red blood cells. He developed a transient hypotension with negative cardiac enzyme. Echocardiogram of 12/15/13 showed LVEF of 75%. Normal Regadenos on SPECT MPI of 12/17/13, LVEF by gated SPECT was 61%. Furosemide was discontinued because o f the hypotension. B.Today, patient is feeling better. His main complaint is a persistent leg swelling on anita th sides. There is no chest pain or chest discomfort both at rest and on exertion. He is in a class II of NYHA functional class. Physical exam shows a 3+ bilateral leg pitting edema. According to the recent echocardiogram and stress test, he has a pretty normal cardiac str ucture. He should have a good long-term cardiac prognosis. 2. Hypertension A. Blood pressure is significantly elevated. 3. Stage IV chronic kidney disease from diabetic nephropathy. 4. Diabetes 5. Peripheral vascular disease A. Status post left carotid endarterectomy in 2005. 6. Hyperlipidemia A. On niacin, simvastatin and gemfibrozil. 7. Anemia from upper GI bleeding Plan: 1. I spend time at length talking about natural course, treatment and prognosis of congesti ve heart failure with preserved LVEF. 2. After discussion with Dr. Deluna, his administrative resources associate, we decided to put him back on furo semide 40 mg twice a day to treat leg swelling and to lower the blood pressure. 3.Check blood pressure x 2 weeks. Check minichem and CBC in 1 week. 4. Followup in 2-4 weeks. Portions of this report were transcribed using voice recognition software. Every effort wa s made to ensure accuracy; however, inadvertent computerized in house cra errors may be pre sent. documented in this encounter Plan of Treatment +--------+ + + + + | Date | Type | Specialty | Care Team | Description | +--------+ + + + + | 03/16/ | Off-Site | Nephrology | Freddy Sanchez | | | 2019 | Visit | | , [address] | | | | | | [place], [place] [address] | | | | | | [place] | | | | | | [phone] | | | | | | | | +--------+ + + + + | 05/20/ | Office | Cardiology | Yumiko Del Valle, | | | 2019 | Visit | | MD [address] | | | | | | [place] | | | | | | [phone] | | | | | | | | +--------+ + + + + + +------+--------+ + + | Name | Type | Priori | Associated Diagnoses | Order Schedule | | | | ty | | | + +------+--------+ + + | Basic Metabolic | Lab | Routin | CHF (congestive | Expected: | | Panel | | e | heart failure) ([facility]) | 01/10/2014, Expires: | | | | | | 01/03/2015 | + +------+--------+ + + | CBC with | Lab | Routin | CHF (congestive | Expected: | | Differential | | e | heart failure) ([facility]) | 01/10/2014, Expires: | | | | | | 01/03/2015 | + +------+--------+ + + documented as of this encounter Visit Diagnoses + + | Diagnosis | + + | CHF (congestive heart failure) (HCC) - Primary Congestive heart failure, unspecified | + + | Hypertension Unspecified essential hypertension | + + documented in this encounter
--- OUTSIDE RECORDS SUMMARY | ~2019-10-22 | XMS | Encounter Summary ---
Demographics + + + | Address | [address] | | | [place] [address] | + + + | Home Phone | | + + + | Preferred Language | Unknown | + + + | Marital Status | Single | + + + | Sabianist Affiliation | Unknown | + + + [...] [place] | | | | | [address] | | + + + + + | Atif Delgadillo | ECON | [place], [place] | | | | | [address] | | + + + + + | Caleb Dawn | ECON | Unknown | | + + + + + Care Team Providers + +------+ + | Care U.[place]. Senator Name | Role | Phone | + +------+ + PCP | Unavailable | + +------+ + Encounter Details +--------+ + + + + | Date | Type | Department | Care Team | Description | +--------+ + + + + | 11/29/ | Abstract | [facility] | Freddy Sanchez | | | 2017 | | NEPHROLOGY [address] | M, DO [address] | | | | | [address] | [place] | | | | | [place], [place] | [place] | | | | | [address] | [address] | | | | | [phone] | | | +--------+ + + + [...] this encounter Progress Notes Tamara Alves - 11/29/2016 8:36 AM PSTOutside record: Progress note received from Tarik Garza MD, dos: 11-28-16. Sent to scan.Electronically signed by Tamara Alves at 11/29 8:37 AM PSTdocumented in this encounter Plan of Treatment +--------+ + + + + | Date | Type | Specialty | Care Team | Description | +--------+ + + + + | 04/27/ | Off-Site | Nephrology | Freddy Sanchez | | | 2019 | Visit | | DO [address] [facility] | | | | | | [place] | | | | | | [place] | | | | | | [address] | | | | | | | | +--------+ + + + + | 05/20/ | Office | Cardiology | Yumiko Del Valle, | | | 2019 | Visit | | MD [address]ER | | | | | | [place] | | | | | | [phone] | | | | | | | | +--------+ + + + + documented as of this encounter Visit Diagnoses Not on filedocumented in this encounter"
--- OUTSIDE RECORDS SUMMARY | ~2019-10-22 | XMS | Encounter Summary ---
Demographics + + + | Address | [address] | | | [place] [address] | + + + | Home Phone [...] + + + | Author | [facility] | | | and [place] | + + + | Organization | [facility] | | | and [place] | + + + | Address | Unknown | + + + | Phone | Unavailable | + + + Support + + + + + | Name | Relationship | Address | Phone | + + + + + | Hi Dawn | ECON | [place] | | | | | [address] | | + + + + + | Atif Delgadillo | ECON | [place] | | | | | [address] | | + + + + + | Caleb Dawn | ECON | Unknown | | + + + + + Care Team Providers + +------+ + | Care Motor Scooter Repairer Name | Role | Phone | + +------+ + | Anoop Moyer MD | PCP | | + +------+ + Encounter Details +--------+ + + + + | Date | Type | Department | Care Team | Description | +--------+ + + + + | 05/03/ | Abstract | [facility] [place] | Freddy Sanchez | | | 2019 | | NEPHROLOGY [address] | M, DO [address] | | | | | [address] [facility] [address] | [place] | | | | | [place], [place] | [place], [place] | | | | | [address] | [address] | | | | | [phone] | | | +--------+ + + + [...] [address] | | | | | | [place] | | | | | | [place] | | | | | | [address] | | | | | | | | +--------+ + + + + | 05/20/ | Office | Cardiology | Yumiko Del Valle, | | | 2019 | Visit | | [address] | | | | | | [place] | | | | | | [address] | | | | | | | | +--------+ + + + + documented as of this encounter Procedures + +--------+ + + + | Procedure Name | Priori | Date/Time | Associated Diagnosis | Comments | | | ty | | | | + +--------+ + + + | EXTERNAL LAB: FATOUMATA | Routin | 05/02/2019 | | Results for this | | | e | | | procedure are in the | | | | | | results section. | + +--------+ + + + | EXTERNAL LAB: | Routin | 05/02/2019 | | Results for this | | GLUCOSE | e | | | procedure are in the | | | | | | results section. | + +--------+ + + + | EXTERNAL LAB: ALT | Routin | 05/02/2019 | | Results for this | | | e | | | procedure are in the | | | | | | results section. | + +--------+ + + + | EXTERNAL LAB: AST | Routin | 05/02/2019 | | Results for this | | | e | | | procedure are in the | | | | | | results section. | + +--------+ + + + | EXTERNAL LAB: | Routin | 05/02/2019 | | Results for this | | ALKALINE PHOSPHATASE | e | | | procedure are in the | | | | | | results section. | + +--------+ + + + | EXTERNAL LAB: | Routin | 05/02/2019 | | Results for this | | BILIRUBIN, TOTAL | e | | | procedure are in the | | | | | | results section. | + +--------+ + + + | EXTERNAL LAB: | Routin | 05/02/2019 | | Results for this | | ALBUMIN | e | | | procedure are in the | | | | | | results section. | + +--------+ + + + | EXTERNAL LAB: | Routin | 05/02/2019 | | Results for this | | PROTEIN, TOTAL | e | | | procedure are in the | | | | | | results section. | + +--------+ + + + | EXTERNAL LAB: | Routin | 05/02/2019 | | Results for this | | PHOSPHORUS | e | | | procedure are in the | | | | | | results section. | + +--------+ + + + | EXTERNAL LAB: | Routin | 05/02/2019 | | Results for this | | CALCIUM | e | | | procedure are in the | | | | | | results section. | + +--------+ + + + | EXTERNAL LAB: CARBON | Routin | 05/02/2019 | | Results for this | | DIOXIDE | e | | | procedure are in the | | | | | | results section. | + +--------+ + + + | EXTERNAL LAB: | Routin | 05/02/2019 | | Results for this | | CHLORIDE | e | | | procedure are in the | | | | | | results section. | + +--------+ + + + | EXTERNAL LAB: | Routin | 05/02/2019 | | Results for this | | POTASSIUM | e | | | procedure are in the | | | | | | results section. | + +--------+ + + + | EXTERNAL LAB: SODIUM | Routin | 05/02/2019 | | Results for this | | | e | | | procedure are in the | | | | | | results section. | + +--------+ + + + | EXTERNAL LAB: CBC | Routin | 05/02/2019 | | Results for this | | | e | | | procedure are in the | | | | | | results section. | + +--------+ + + + | EXTERNAL LAB: | Routin | 05/02/2019 | | Results for this | | TRIGLYCERIDES | e | | | procedure are in the | | | | | | results section. | + +--------+ + + + | EXTERNAL LAB: | Routin | 05/02/2019 | | Results for this | | CHOLESTEROL, HDL | e | | | procedure are in the | | | | | | results section. | + +--------+ + + + | EXTERNAL LAB: | Routin | 05/02/2019 | | Results for this | | CHOLESTEROL, TOTAL | e | | | procedure are in the | | | | | | results section. | + +--------+ + + + | EXTERNAL LAB: | Routin | 05/02/2019 | | Results for this | | CHOLESTEROL, LDL | e | | | procedure are in the | | | | | | results section. | + +--------+ + + + | EXTERNAL LAB: EGFR | Routin | 05/02/2019 | | Results for this | | | e | | | procedure are in the | | | | | | results section. | + +--------+ + + + | EXTERNAL LAB: | Routin | 05/02/2019 | | Results for this | | CREATININE | e | | | procedure are in the | | | | | | results section. | + +--------+ + + + | PROTEIN/CREATININE | Routin | 05/02/2019 | | Results for this | | RATIO, URINE | e | | | procedure are in the | | | | | | results section. | + +--------+ + + + | HEMOGLOBIN A1C | Routin | 05/02/2019 | | Results for this | | | e | | | procedure are in the | | | | | | results section. | + +--------+ + + + documented in this encounter Results Protein/Creatinine Ratio, Urine (05/02/2019) + + + + + + | Component | Value | Ref Range | Performed | Pathologist | | | | | At | Signature | + + + + + + | Protein/Cre | 0.19 | 0.0 - 0.2 | | | | at Ratio | | | | | + + + + + + | PTH Intact, | 87.75 (A) | 15 - 65 | | | | External | | | | | + + + + + + + + | Specimen | + + | Urine | + + Hemoglobin A1C (05/02/2019) + +-------+ + + + | Component | Value | Ref Range | Performed | Pathologist | | | | | At | Signature | + +-------+ + + + | Hemoglobin | 5.6 | % | EXTERNAL | | | A1c | | | LAB | | + +-------+ + + + + + | Specimen | + + | Blood | + + + + | Resulting Agency Comment | + + | [facility] | + + + +---------+ + + | Performing | Address | City/State/Zipcode | Phone Number | | Organization | | | | + +---------+ + + | EXTERNAL LAB | | | | + +---------+ + + External Lab: FATOUMATA (05/02/2019) + +--------+ + + + | Component | Value | Ref Range | Performed | Pathologist | | | | | At | Signature | + +--------+ + + + | BUN, | 37 (A) | 6 - 23 | EXTERNAL | | | External | | | LAB | | + +--------+ + + + + + | Resulting Agency Comment | + + | [facility] | + + + +---------+ + + | Performing | Address | City/State/Zipcode | Phone Number | | Organization | | | | + +---------+ + + | EXTERNAL LAB | | | | + +---------+ + + External Lab: Glucose (05/02/2019) + +-------+ + + + | Component | Value | Ref Range | Performed | Pathologist | | | | | At | Signature | + +-------+ + + + | Glucose, | 79 | 70 - 100 | EXTERNAL | | | External | | | LAB | | + +-------+ + + + + + | Resulting Agency Comment | + + | [facility] | + + + +---------+ + + | Performing | Address | City/State/Zipcode | Phone Number | | Organization | | | | + +---------+ + + | EXTERNAL LAB | | | | + +---------+ + + External Lab: ALT (05/02/2019) + +-------+ + + + | Component | Value | Ref Range | Performed | Pathologist | | | | | At | Signature | + +-------+ + + + | ALT, | 23 | 7 - 52 | EXTERNAL | | | External | | | LAB | | + +-------+ + + + + + | Resulting Agency Comment | + + | [facility] | + + + +---------+ + + | Performing | Address | City/State/Zipcode | Phone Number | | Organization | | | | + +---------+ + + | EXTERNAL LAB | | | | + +---------+ + + External Lab: AST (05/02/2019) + +-------+ + + + | Component | Value | Ref Range | Performed | Pathologist | | | | | At | Signature | + +-------+ + + + | AST, | 19 | 13 - 39 | EXTERNAL | | | External | | | LAB | | + +-------+ + + + + + | Resulting Agency Comment | + + | [facility] | + + + +---------+ + + | Performing | Address | City/State/Zipcode | Phone Number | | Organization | | | | + +---------+ + + | EXTERNAL LAB | | | | + +---------+ + + External Lab: Alkaline Phosphatase (05/02/2019) + +-------+ + + + | Component | Value | Ref Range | Performed | Pathologist | | | | | At | Signature | + +-------+ + + + | ALP, | 41 | 31 - 120 | EXTERNAL | | | External | | | LAB | | + +-------+ + + + + + | Resulting Agency Comment | + + | [facility] | + + + +---------+ + + | Performing | Address | City/State/Zipcode | Phone Number | | Organization | | | | + +---------+ + + | EXTERNAL LAB | | | | + +---------+ + + External Lab: Bilirubin, Total (05/02/2019) + +-------+ + + + | Component [...] Resulting Agency Comment | + + | [facility] | + + + +---------+ + + | Performing | Address | City/State/Zipcode | Phone Number | | Organization | | | | + +---------+ + + | EXTERNAL LAB | | | | + +---------+ + + External Lab: Albumin (05/02/2019) + +-------+ + + + | Component | Value | Ref Range | Performed | Pathologist | | | | | At | Signature | + +-------+ + + + | Albumin, | 4.3 | 3.5 - 5 | EXTERNAL | | | External | | | LAB | | + +-------+ + + + + + | Resulting Agency Comment | + + | [facility] | + + + +---------+ + + | Performing | Address | City/State/Zipcode | Phone Number | | Organization | | | | + +---------+ + + | EXTERNAL LAB | | | | + +---------+ + + External Lab: Protein, Total (05/02/2019) + +-------+ + + + | Component | Value | Ref Range | Performed | Pathologist | | | | | At | Signature | + +-------+ + + + | Protein, | 6.4 | 6 - 8.3 | EXTERNAL | | | Total, | | | LAB | | | External | | | | | + +-------+ + + + + + | Resulting Agency Comment | + + | [facility] | + + + +---------+ + + | Performing | Address | City/State/Zipcode | Phone Number | | Organization | | | | + +---------+ + + | EXTERNAL LAB | | | | + +---------+ + + External Lab: Phosphorus (05/02/2019) + +-------+ + + + | Component | Value | Ref Range | Performed | Pathologist | | | | | At | Signature | + +-------+ + + + | Phosphorus, | 2.6 | 2.5 - 5 | EXTERNAL | | | External | | | LAB | | + +-------+ + + + + + | Resulting Agency Comment | + + | [facility] | + + + +---------+ + + | Performing | Address | City/State/Zipcode | Phone Number | | Organization | | | | + +---------+ + + | EXTERNAL LAB | | | | + +---------+ + + External Lab: Calcium (05/02/2019) + + + + + + | Component | Value | Ref Range | Performed | Pathologist | | | | | At | Signature | + + + + + + | Calcium, | 10.6 (A) | 8.5 - 10.3 | EXTERNAL | | | External | | | LAB | | + + + + + + + + | Resulting Agency Comment | + + | [facility] | + + + +---------+ + + | Performing | Address | City/State/Zipcode | Phone Number | | Organization | | | | + +---------+ + + | EXTERNAL LAB | | | | + +---------+ + + External Lab: Carbon Dioxide (05/02/2019) + +-------+ + + + | Component [...] Resulting Agency Comment | + + | [facility] | + + + +---------+ + + | Performing | Address | City/State/Zipcode | Phone Number | | Organization | | | | + +---------+ + + | EXTERNAL LAB | | | | + +---------+ + + External Lab: Chloride (05/02/2019) + +-------+ + + + | Component [...] Resulting Agency Comment | + + | [facility] | + + + +---------+ + + | Performing | Address | City/State/Zipcode | Phone Number | | Organization | | | | + +---------+ + + | EXTERNAL LAB | | | | + +---------+ + + External Lab: Potassium (05/02/2019) + +-------+ + + + | Component | Value | Ref Range | Performed | Pathologist | | | | | At | Signature | + +-------+ + + + | Potassium, | 4.6 | 3.6 - 5.1 | EXTERNAL | | | External | | | LAB | | + +-------+ + + + + + | Resulting Agency Comment | + + | [facility] | + + + +---------+ + + | Performing | Address | City/State/Zipcode | Phone Number | | Organization | | | | + +---------+ + + | EXTERNAL LAB | | | | + +---------+ + + External Lab: Sodium (05/02/2019) + +-------+ + + + | Component | Value | Ref Range | Performed | Pathologist | | | | | At | Signature | + +-------+ + + + | Sodium, | 142 | 132 - 143 | EXTERNAL | | | External | | | LAB | | + +-------+ + + + + + | Resulting Agency Comment | + + | [facility] | + + + +---------+ + + | Performing | Address | City/State/Zipcode | Phone Number | | Organization | | | | + +---------+ + + | EXTERNAL LAB | | | | + +---------+ + + External Lab: CBC (05/02/2019) + + + + + + | [...] + + + + | HCT, | 39.7 (A) | 41 - 50 | EXTERNAL | | | External | | | LAB | | + + + + + + | PLT, | 141 | 140 - 440 | EXTERNAL | | | External | | | LAB | | + + + + + + | RBC, | 4.31 | 4.3 - 5.7 | EXTERNAL | | | External | | | LAB | | + + + + + + | MCV, | 92 | 81 - 99 | EXTERNAL | | | External | | | LAB | | + + + + + + | RDW, | 14.8 | 10.5 - 15 | EXTERNAL | | | External | | | LAB | | + + + + + + + + | Resulting Agency Comment | + + | [facility] | + + + +---------+ + + | Performing | Address | City/State/Zipcode | Phone Number | | Organization | | | | + +---------+ + + | EXTERNAL LAB | | | | + +---------+ + + External Lab: Triglycerides (05/02/2019) + +-------+ + + + | Component | Value | Ref Range | Performed | Pathologist | | | | | At | Signature | + +-------+ + + + | Triglycerid | 266 | | EXTERNAL | | | es, | | | LAB | | | External | | | | | + +-------+ + + + + + | Specimen | + + | Blood | + + + + | Resulting Agency Comment | + + | [facility] | + + + +---------+ + + | Performing | Address | City/State/Zipcode | Phone Number | | Organization | | | | + +---------+ + + | EXTERNAL LAB | | | | + +---------+ + + External Lab: Cholesterol, HDL (05/02/2019) + +-------+ + + + | Component | Value | Ref Range | Performed | Pathologist | | | | | At | Signature | + +-------+ + + + | HDL | 27.8 | mg/dl | EXTERNAL | | | Cholesterol | | | LAB | | | , External | | | | | + +-------+ + + + + + | Specimen | + + | Blood | + + + + | Resulting Agency Comment | + + | [facility] | + + + +---------+ + + | Performing | Address | City/State/Zipcode | Phone Number | | Organization | | | | + +---------+ + + | EXTERNAL LAB | | | | + +---------+ + + External Lab: Cholesterol, Total (05/02/2019) + +-------+ + + + | Component | Value | Ref Range | Performed | Pathologist | | | | | At | Signature | + +-------+ + + + | Cholesterol | 157 | mg/dl | EXTERNAL | | | , Total, | | | LAB | | | External | | | | | + +-------+ + + + + + | Specimen | + + | Blood | + + + + | Resulting Agency Comment | + + | [facility] | + + + +---------+ + + | Performing | Address | City/State/Zipcode | Phone Number | | Organization | | | | + +---------+ + + | EXTERNAL LAB | | | | + +---------+ + + External Lab: Cholesterol, LDL (05/02/2019) + +-------+ + + + | Component | Value | Ref Range | Performed | Pathologist | | | | | At | Signature | + +-------+ + + + | LDL | 76 | | EXTERNAL | | | Cholesterol | | | LAB | | | , Direct, | | | | | | External | | | | | + +-------+ + + + + + | Specimen | + + | Blood | + + + + | Resulting Agency Comment | + + | [facility] | + + + +---------+ + + | Performing | Address | City/State/Zipcode | Phone Number | | Organization | | | | + +---------+ + + | EXTERNAL LAB | | | | + +---------+ + + External Lab: eGFR (05/02/2019) + +-------+ + + + | Component | Value | Ref Range | Performed | Pathologist | | | | | At | Signature | + +-------+ + + + | eGFR, | 25 | | EXTERNAL | | | External | | | LAB | | + +-------+ + + + + + | Specimen | + + | Blood | + + + + | Resulting Agency Comment | + + | [facility] | + + + +---------+ + + | Performing | Address | City/State/Zipcode | Phone Number | | Organization | | | | + +---------+ + + | EXTERNAL LAB | | | | + +---------+ + + External Lab: Creatinine (05/02/2019) + + + + + + | Component | Value | Ref Range | Performed | Pathologist | | | | | At | Signature | + + + + + + | Creatinine, | 2.53 (A) | 0.7 - 1.18 | EXTERNAL | | | External | | | LAB | | + + + + + + + + | Specimen | + + | Blood | + + + + | Resulting Agency Comment | + + | [facility] | + + + +---------+ + + | Performing | Address | City/State/Zipcode | Phone Number | | Organization | | | | + +---------+ + + | EXTERNAL LAB | | | | + +---------+ + + documented in this encounter Visit Diagnoses Not on filedocumented in this encounter"
--- OUTSIDE RECORDS SUMMARY | ~2019-10-22 | XMS | Encounter Summary ---
Demographics + + + | Address | [address] | | | [place] [address] | + + + | Home Phone | | + + + | Preferred Language | Unknown | + + + | Marital Status | Single | + + + | Mu-Ism Affiliation | Unknown | + + + | Race | Unknown | + + + | Ethnic Group | Unknown | + + + Author + + + | Author | [facility] | | | and [place] | + + + | Organization | [facility] | | | and [place] | + + + | Address | Unknown | + + + | Phone | Unavailable | + + + Support + + + + + | Name | Relationship | Address | Phone | + + + + + | Hi Dawn | ECON | [place] | | | | | [address] | | + + + + + | Atif Delgadillo | ECON | [place], [place] | | | | | [address] | | + + + + + | Caleb Dawn | ECON | Unknown | | + + + + + Care Team Providers + +------+ + | Care Operator Catalyst Concentration Name | Role | Phone | + [...] | 05/05/ | Office | [facility] [place] | [place], | Chest pain (Primary | | 2013 | Visit | CARDIOLOGY [address] | [address] [address] | Dx); Hypertension; | | | | [place], | [place], | Hyperlipidemia | | | | [place] [address] | [place] [address] | | | | | [phone] | [phone] | | | | | | | [...] of breath. He continues to sleep at [facility] with one pillow and using his [...] fraction A. Patient was recently admitted to [facility] with a profound anemia with hemoglobin of [...] made to ensure accuracy; however, inadvertent computerized deckhand shrimp boat errors may be pre sent. documented in this encounter Plan of Treatment +--------+ + + + + | Date | Type | Specialty | Care Team | Description | +--------+ + + + + | 03/16/ | Off-Site | Nephrology | Freddy Sanchez | | 2019 | Visit | | DO [address] | | | | | | [place] [address] | | | | | | [place] | | | | | | [address] | | | | | | | | +--------+ + + + + | 05/20/ | Office | Cardiology | Yumiko Del Valle, | | | 2019 | Visit | | MD [address]YL[address] | | | | | | [place] | | | | | | [address] | | | | | | | [...] 1.60 (H) | 0.60 - 1.30 | [facility] | | | | | mg/dL | [facility] | | | | | | MEDICAL | | | | | | CENTER - | | | | | | LABORATORY | | + + + + + + | eGFR if not | 43 (L)Comment: | >=60 | [place] | | | | GLOMERULAR FILTRATION | mL/min/1.73m2 | [facility] | | | NEPALESE | RATE,ESTIMATED | | MEDICAL | | | | mL/min/1.53d9Nbwx than | | CENTER - | | [...] | 9.2 | 8.3 - 10.5 | [facility] | | | | | mg/dL | [facility] | | | | | | [...] [address] | [place] | [phone] | | [facility] | | [address] | | | - LABORATORY | | | | + + + + + | [address] | [address] | [place], [place] | | | [facility] | | [address] | | | - LABORATORY | | [...]
--- OUTSIDE RECORDS SUMMARY | ~2019-10-22 | XMS | Encounter Summary ---
Demographics + + + | Address | [address] | | | [place] [address] | + + + | Home Phone [...] Author + + + | Author | [facility] | | | and [place] | + + + | Organization | [facility] | | | and [place] | + + + | Address | Unknown | + + + | Phone | Unavailable | + + + Support + + + + + | Name | Relationship | Address | Phone | + + + + + | Hi Dawn | ECON | [place] | | | | | [address] | | + + + + + | Atif Delgadillo | ECON | [place], [place] | | | | | [address] | | + + + + + | Caleb Dawn | ECON | Unknown | | + + + + + Care Team Providers + +------+ + | Care Day Porter Name | Role | Phone | + +------+ + PCP | Unavailable | + +------+ + Encounter Details +--------+ + + + + | Date | Type | Department | Care Team | Description | +--------+ + + + + | 10/04/ | Abstract | [facility] | Freddy Sanchez | | | 2017 | | NEPHROLOGY [address] | M, DO [address] | | | | | [address] | [place] | | | | | [place], [place] | [place] | | | | | [address] | [address] | | | | | [phone] | | | +--------+ + + + [...] | Visit | | M, DO [address] | | | | | | [place] | | | | | | [place] | | | | | | [address] | | | | | | | | +--------+ + + + + | 05/20/ | Office | Cardiology | Yumiko Del Valle, | | | 2019 | Visit | | [address] | | | | | | [place], [place] | | | | | | [address] | | | | | | | [...] | EXTERNAL LAB: [facility], | Routin | 10/03/2017 | | Results [...] + +---------+ + + External Lab: BUN (10/03/2017) + +--------+ + + + | [...]
--- OUTSIDE RECORDS SUMMARY | ~2019-10-22 | XMS | Encounter Summary ---
Demographics + + + | Address | [address] | | | [place] [address] | + + + | Home Phone [...] [place] | | | | | [address] | | + + + + + | Atif Delgadillo | ECON | [place], [place] | | | | | [address] | | + + + + + | Caleb Dawn | ECON | Unknown | | + + + + + Care Team Providers + +------+ + | Care Program Clinician Name | Role | Phone | + [...] + + | 07/07/ | Telephone | [facility] | Freddy Sanchez | Medication Question | | 2017 | | NEPHROLOGY [address] | M, DO [address] | | | | | [address] [facility] [address] | [place], [facility] [address] | | | | | [place], [place] | [place] | | | | | [address] | [address] | | | | | [phone] | | | +--------+ + + + [...] 2019 | Visit | | DO [address] [place] [address] | | | | | | [address] | | | | | | [place] | | | | | | [address] | | | | | | | | +--------+ + + + + | 05/20/ | Office | Cardiology | Yumiko Del Valle, | | | 2019 | Visit | | MD [address] | | | | | | [place] | | | | | | [phone] | | | | | | | | +--------+ + + + + documented as of this encounter Visit Diagnoses Not on filedocumented in this encounter"
--- OUTSIDE RECORDS SUMMARY | ~2019-10-22 | XMS | Encounter Summary ---
Demographics + + + | Address | [address] | | | [place] [address] | + + + | Home Phone | | + + + | Preferred Language | Unknown | + + + | Marital Status | Single | + + + | Jainism Affiliation | Unknown | + + + | Race | Unknown | + + + | Ethnic Group | Unknown | + + + Author + + + | Author | [facility] | | | and [place] | + + + | Organization | [facility] | | | and [place] | + + + | Address | Unknown | + + + | Phone | Unavailable | + + + Support + + + + + | Name | Relationship | Address | Phone | + + + + + | Hi Dawn | ECON | [place] | | | | | [address] | | + + + + + | Atif Delgadillo | ECON | [place], [place] | | | | | [address] | | + + + + + | Caleb Dawn | ECON | Unknown | | + + + + + Care Team Providers + +------+ + | Care Human Resources Benefits Specialist Name | Role | Phone | + +------+ + PCP | Unavailable | + +------+ + Encounter Details +--------+ + + + + | Date | Type | Department | Care Team | Description | +--------+ + + + + | 01/02/ | Abstract | [facility] | Logan Baca, | Light headedness | | 2013 | | CARDIOLOGY [address] | MD [address] | (Primary Dx); | | | | [place], | [place], | Hypertension; | | | | [place] [address] | [place] [address] | Hyperlipidemia; | | | | [phone] | [phone] | ASCVD | | | | | [...] | Visit | | DO [address] | | | | | | [address] | | | | | | [place] | | | | | | [address] | | | | | | | | +--------+ + + + + | 05/20/ | Office | Cardiology | Yumiko Del Valle, | | | 2019 | Visit | | MD Lupe TYLER | | | | | | [place] | | | | | | [address] | | | | | | | [...]
--- OUTSIDE RECORDS SUMMARY | ~2019-10-22 | XMS | Encounter Summary ---
Demographics + + + | Address | [address] | | | [place] [address] | + + + | Home Phone [...] + + | Author | [facility] | | | and [place] | + + + | Organization | [facility] | | | and [place] | + + + | Address | Unknown | + + + | Phone | Unavailable | + + + Support + + + + + | Name | Relationship | Address | Phone | + + + + + | Hi Dawn | ECON | [place] | | | | | [address] | | + + + + + | Atif Delgadillo | ECON | [place], [place] | | | | | [address] | | + + + + + | Caleb Dawn | ECON | Unknown | | + + + + + Care Team Providers + +------+ + | Care Radio Time Salesperson Name | Role | Phone | + +------+ + PCP | Unavailable | + +------+ + Encounter Details +--------+ + + + + | Date | Type | Department | Care Team | Description | +--------+ + + + + | 04/05/ | Orders Only | [facility] [place] | Freddy Sanchez | Chronic kidney | | 2015 | | NEPHROLOGY [address] | M, DO [address] | disease, stage III | | | | [address] | [place], [place] [address] | (moderate) (Primary | | | | [place], [place] | [place], [place] | Dx); Type 2 diabetes | | | | [address] | [address] | mellitus with stage | | | | [phone] | | 3 chronic kidney | | | | | | disease (HCC); | | | | | | Hyperlipidemia, | | | | | | unspecified | | | | | | hyperlipidemia type | +--------+ + + + + Social [...] this encounter Progress Imani Springer RN - 04/05/2016 10:03 AM PDTInterpath 05/02/16 documented in this encounter Plan of Treatment +--------+ + + + + | Date | Type | Specialty | Care Team | Description | +--------+ + + + + | 03/16/ | Off-Site | Nephrology | Freddy Sanchez | | 2019 | Visit | | DO Olayinka [address] [place] [address] | | | | | | [address] | | | | | | [place] | | | | | | [address] | | | | | | | | +--------+ + + + + | 05/20/ | Office | Cardiology | OlgaYumiko, | | | 2019 | Visit | | MD Lupe TYLER | | | | | | [place] | | | | | | [address] | | | | | | | [...] stated as uncontrolled | + + | Hyperlipidemia, unspecified hyperlipidemia type | + + documented in this encounter"
--- OUTSIDE RECORDS SUMMARY | ~2019-10-22 | XMS | Encounter Summary ---
Demographics + + + | Address | [address] | | | [place] [address] | + + + | Home Phone [...] + + + | Author | [facility] | | | and [place] | + + + | Organization | [facility] | | | and [place] | + + + | Address | Unknown | + + + | Phone | Unavailable | + + + Support + + + + + | Name | Relationship | Address | Phone | + + + + + | Hi Dawn | ECON | [place] | | | | | [address] | | + + + + + | Atif Delgadillo | ECON | [place], [place] | | | | | [address] | | + + + + + | Caleb Dawn | ECON | Unknown | | + + + + + Care Team Providers + +------+ + | Care Surgical Services Asst Name | Role | Phone | + +------+ + PCP | Unavailable | + +------+ + Encounter Details +--------+ + + + + | Date | Type | Department | Care Team | Description | +--------+ + + + + | 05/16/ | Abstract | [facility] [place] | Freddy Sanchez | | | 2013 | | NEPHROLOGY [address] | M, DO [address] | | | | | [address] | [place], [address] | | | | | [place], [place] | [place] | | | | | [address] | [address] | | | | | [phone] | | | +--------+ + + + [...] | Visit | | M, DO [address] | | | | | | [place], [address] | | | | | | [place] | | | | | | [address] | | | | | | | | +--------+ + + + + | 05/20/ | Office | Cardiology | Yumiko Del Valle, | | | 2019 | Visit | | [address] | | | | | | [place], [place] | | | | | | [address] | | | | | | | | +--------+ + + + + documented as of this encounter Procedures + +--------+ + + + | Procedure Name | Priori | Date/Time | Associated Diagnosis | Comments | | | ty | | | | + +--------+ + + + | EXTERNAL LAB: EPIFANIO | Routin | 05/15/2014 | | Results for this | | | e | | | procedure are in the | | | | | | results section. | + +--------+ + + + | EXTERNAL LAB: AST | Routin | 05/15/2014 | | Results for this | | | e | | | procedure are in the | | | | | | results section. | + +--------+ + + + | EXTERNAL LAB: ALT | Routin | 05/15/2014 | | Results for this | | | e | | | procedure are in the | | | | | | results section. | + +--------+ + + + | EXTERNAL LAB: EGFR | Routin | 05/15/2014 | | Results for this | | | e | | | procedure are in the | | | | | | results section. | + +--------+ + + + | EXTERNAL LAB: | Routin | 05/15/2014 | | Results for this | | CREATININE | e | | | procedure are in the | | | | | | results section. | + +--------+ + + + | CMPI | Routin | 05/15/2014 | | Results for this | | | e | | | procedure are in the | | | | | | results section. | + +--------+ + + + documented in this encounter Results CMP/ISTAT (05/15/2014) + +-------+ + + + | Component | Value | Ref Range | Performed | Pathologist | | | | | At | Signature | + +-------+ + + + | Na | 139 | mmol/L | EXTERNAL | | | | | | LAB | | + +-------+ + + + | K | 4.3 | mmol/L | EXTERNAL | | | | | | LAB | | + +-------+ + + + | Cl | 102 | mmol/L | EXTERNAL | | | | | | LAB | | + +-------+ + + + | CO2 | 29 | mmol/L | EXTERNAL | | | | | | LAB | | + +-------+ + + + | Glucose | 122 | mg/dL | EXTERNAL | | | | | | LAB | | + +-------+ + + + | BUN | 40 | mg/dL | EXTERNAL | | | | | | LAB | | + +-------+ + + + | Calcium | 9.8 | mg/dL | EXTERNAL | | | | | | LAB | | + +-------+ + + + | Alkaline | 69 | U/L | EXTERNAL | | | Phosphatase | | | LAB | | + +-------+ + + + | Phosphorus | 3.5 | 2.1 - 3.9 mg/dL | EXTERNAL | | | | | | LAB | | + +-------+ + + + | Bilirubin | 0.9 | mg/dL | EXTERNAL | | | Total | | | LAB | | + +-------+ + + + | Albumin | 4.6 | 3.3 - 4.8 g/dL | EXTERNAL | | | | | | LAB | | + +-------+ + + + | MCV | 87.2 | fL | EXTERNAL | | | | | | LAB | | + +-------+ + + + | PTH INTACT | 112.9 | pg/mL | EXTERNAL | | | [...] + +---------+ + + External Lab: CBC (05/15/2014) + + + + + + | Component | Value | Ref Range | Performed | Pathologist | | | | | At | Signature | + + + + + + | WBC, | 7.2 | 4.5 - 11 | EXTERNAL | | | External | | | LAB | | + + + + + + | HGB, | 13.7 | 13.5 - 18 | EXTERNAL | | | External | | | LAB | | + + + + + + | HCT, | 40.3 (A) | 41 - 50 | EXTERNAL | | | External | | | LAB | | + + + + + + | PLT, | 140 | 140 - 440 | EXTERNAL | [...] + +---------+ + + External Lab: AST (05/15/2014) + +--------+ + + + | Component [...] + +---------+ + + External Lab: ALT (05/15/2014) + +-------+ + + + | Component [...] + +---------+ + + External Lab: eGFR (05/15/2014) + +-------+ + + + | Component | Value | Ref Range | Performed | Pathologist | | | | | At | Signature | + +-------+ + + + | eGFR, | 40 | | EXTERNAL | | | External | | | LAB | | + +-------+ + + + | eGFR, | | | EXTERNAL | | | | | | LAB | | | Malagasy, | | | | | | External [...] + +---------+ + + External Lab: Creatinine (05/15/2014) + + + + + + | Component | Value | Ref Range | Performed | Pathologist | | | | | At | Signature | + + + + + + | Creatinine, | 1.68 (A) | 0.7 - 1.18 | EXTERNAL [...]
--- OUTSIDE RECORDS SUMMARY | ~2019-10-22 | XMS | Encounter Summary ---
Demographics + + + | Address | [address] | | | [place] [address] | + + + | Home Phone | | + + + | Preferred Language | Unknown | + + + | Marital Status | Single | + + + | Jewish Affiliation | Unknown | + + + | Race | Unknown | + + + | Ethnic Group | Unknown | + + + Author + + + | Author | [facility] | | | and [place] | + + + | Organization | [facility] | | | and [place] | + + + | Address | Unknown | + + + | Phone | Unavailable | + + + Support + + + + + | Name | Relationship | Address | Phone | + + + + + | Hi Dawn | ECON | [place] | | | | | [address] | | + + + + + | Atif Delgadillo | ECON | [place], [place] | | | | | [address] | | + + + + + | Caleb Dawn | ECON | Unknown | | + + + + + Care Team Providers + +------+ + | Care Roll Line Operator Name | Role | Phone | [...] | kidney | MD [address] | [address] | | | | | disease, | [place] | [place], [place] | | | | | stage 3 | [place] [address] | [address] [place] | | | | | (moderate) | [place], | [place] | | | | | (HCC) | [place] | [address] Phone: | | | | | Hypertension | [address] | [phone] | | | | | , essential | Phone: | Fax: | | | | | Type 2 | [phone] | [phone] | | | | | diabetes | Fax: | | | | | | mellitus | [phone] | | | | | | with stage 3 | | | | | | | chronic | | | | | | | kidney | | | | | | | disease | | | | | | | (HCC) | | | | | | | Procedures | | | | | | | [place] OFFICE | | | | | | [...] | | [address] | [place], [place] [address] | (moderate) (Primary | | | | [place] | [place] | Dx); Type 2 diabetes | | | | [address] | [address] | mellitus with stage | | | | [phone] | | 3 chronic kidney | | [...] (ELOCON) 0.1 % cream Apply topically Daily. [place]-3 Fatty Acids (FISH OIL) 300 MG CAPS [...] 06/01/2016 PHOSEX 4.0 10/22/2015 PTHEX 129* 10/22/2015 IAH1OEP 5.9 06/01/2016 Lab Results Component Value Date [...] 6 mo. at the [facility] at [facility]. He will hav e a CBC, CMP, [...] | Visit | | DO [address]a [address] | | | | | | [place] [facility] 100 | | | | | | [place] | | | | | | [phone] | | | | | | | | +--------+ + + + + | 05/20/ | Office | Cardiology | Yumiko Del Valle, | | | 2019 | Visit | | [address] | | | | | | [place] | | | | | | [address] | | | | | | | [...]
--- OUTSIDE RECORDS SUMMARY | ~2019-10-22 | XMS | Encounter Summary ---
Demographics + + + | Address | [address] | | | [place] [address] | + + + | Home Phone [...] [place] | | | | | [address] | | + + + + + | Atif Delgadillo | ECON | [place], [place] | | | | | [address] | | + + + + + | Caleb Dawn | ECON | Unknown | | + + + + + Care Team Providers + +------+ + | Care Steeler Name | Role | Phone | + [...] | Daniel, | | | | | Type II or | Quique [place], | Freddy Bhagat DO | | | | | unspecified | MD [address] | [address] [place] | | | | | type | [place] | [place] | | | | | diabetes | [address] | [address] [place] | | | | | mellitus | [place], | [place], [place] | | | | | with renal | [place] | [address] Phone: | | | | | manifestatio | [address] | [phone] | | | | | ns, not | Phone: | Fax: | | | | | stated as | [phone] | [phone] | | | | | uncontrolled | Fax: | | | | | | [phone] | [phone] | | | | | | (HCC) | | | | | | | Unspecified | | | | | | | hypertensive | | | | | | | kidney | | | | | | | disease with | | | | | | | chronic | | | | | | | kidney | | | | | | | disease | | | | | | | stage I | | | | | | | through | | | | | | | stage IV, or | | | | | | | | | | | | | | unspecified( | | | | | | | 403.90) | | | | | | | Chronic | | | | | | | kidney | | | | | | | disease, | | | | | | | stage III | | | | | | | (moderate) | | | | | | | (HCC) | | | | | | | Unspecified | | | | | | | essential | | | | | | | hypertension | | | | | | | Procedures | | | | | | | Evaluate & | | | | | | | treat | | | +--------+--------+ + + + + Encounter Details +--------+ + + + + | Date | Type | Department | Care Team | Description | +--------+ + + + + | 04/20/ | Off-Site | [facility] [place] | Freddy Sanchez | Chronic kidney | | 2015 | Visit | NEPHROLOGY [address] | M, DO [address] | disease, stage III | | | | [address] | [place], [place] [address] | (moderate) (HCC) | | | | [place], [place] | [place] | (Primary Dx); | | | | [address] | [address] | Essential | | | | [phone] | | hypertension; | | | | | | Chronic kidney | | | | | | disease, stage III | | | | | | (moderate); Type II | | | | | | or unspecified type | | | | | | diabetes mellitus | | | | | | with renal | | | | | | manifestations, not | | | | | | stated as | | | | | | uncontrolled (HCC) | +--------+ + + + + [...] + + + | Blood Pressure | 160/80 | 06/07/2015 12:47 PM | | | | | PDT | | + + + + + | Pulse | - | - | | + + + + + | Temperature | 36.1 C (97 F) | 06/07/2015 12:47 PM | | | | | PDT [...] + + + + | Weight | 129.7 kg (286 lb) | 06/07/2015 12:47 PM | | | | | PDT | | + + + + + | Height | - | - | | + + + + + | Body Mass Index | 35.75 | 11/06/2014 9:51 AM | | | | | PST | | + + + + + documented in this encounter Progress Notes Freddy Sanchez DO - 06/07/2015 12:48 PM PDT Subjective: NEPHROLOGY Patient ID: Steve Tanner is a 70 y.o. male. 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 He has kept a diligent home BP log, which shows all of his readings consistently < 130/75 m mHg. He denies hiccups, new edema, fatigue or anorexia. Outpatient Prescriptions Marked as Taking for the 04/20/15 encounter (Off-Site Visit) with Roxana Sanchez DO Medication Sig Dispense Refill allopurinol (ZYLOPRIM) 300 mg tablet Take 300 mg by mouth Daily. calcitRIOL (ROCALTROL) 0.5 MCG capsule Take 2 capsules by mouth Every other day. 90 cap floyd 4 carvedilol (COREG) 25 mg tablet TAKE [...] topically Daily. niacin 500 mg tablet Take 1,250 mg by mouth 2 times daily. omeprazole (PRILOSEC) 40 MG capsule Take 1 capsule by mouth Daily. 90 capsule 3 simvastatin (ZOCOR) 10 mg tablet Take 20 mg by mouth nightly. terbinafine (LAMISIL) 250 MG tablet Take 250 mg by mouth Daily. Allergies Allergen Reactions Lisinopril Other (See Comments) Cough Penicillins Rash Objective: BP 160/80 mmHg | Temp(Src) 36.1 C (97 F) | Wt 129.729 kg (286 lb) Physical Exam Heart: Regular rate and rhythm with no S3, S4, murmur or rub. Lungs: CTA bilaterally. No rales or wheezes. Abdomen: Soft, flat, no epigastric tenderness, normoactive bowel sounds. Extremities: 1+ edema, no clubbing, no foot ulcer. Lab Results Component Value Date NAEX 141 04/16/2015 KEX 4.8 04/16/2015 CLEX 102 04/16/2015 CO2EX 25 04/16/2015 BUNEX 42 04/16/2015 CREEX 2.27 04/16/2015 EGFREX 29 04/16/2015 GLUEX 137 04/16/2015 PHOSEX 3.2 04/16/2015 PTHEX 112.9 04/16/2015 JLP4YRJ 6.3* 07/25/2014 Lab Results Component Value Date WBCEX 5.7 04/16/2015 HGBEX 14 04/16/2015 HCTEX 40.9 04/16/2015 PLTEX 128 04/16/2015 Lab Results Component Value Date CRCLEARANCE 51.0* 04/16/2015 PROTEX 168 04/16/2015 Assessment: 1. CKD Stage 3, secondary to diabetic glomerulosclerosis and HTN--his GFR is slowly worsen ing over time. 2. Hypertension--good control. 3. Type 2 DM--excellent control. 4. SHPTH--stable on calcitriol. 5. 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 6. ASCVD/ s/p left CEA, 2005--stable. 7. Hyperlipidemia--on statin Rx. 8. Gout--in remission. Plan: 1. I reviewed with Steve that he appears to be doing a very good job of managing both hi s diabetes and HTN. 2. Unfortunately, despite his best efforts, his eGFR is very slowly worsening over time. He appears to understand this. 3. No change in Rx for now. 4. Will continue his losartan for its renoprotective effect. 5. Will plan to see him back in 6 mo. at the [facility]. He will have a CBC, CMP, P04, PTH, HbA1c, lipid profile and 24-hour urine collection one week prior to that. CC: Hema Ahn DPM documented in thi s encounter Plan of Treatment +--------+ + + + + | Date | Type | Specialty | Care Team | Description | +--------+ + + + + | 03/16/ | Off-Site | Nephrology | Freddy Sanchez | | | 2019 | Visit | | DO Olay[address]a [address] [place] [address] | | | | | | [place] [...] [place] | | | | | | [address] | | | | | | | | +--------+ + + + + documented as of this encounter Visit Diagnoses + + | Diagnosis | + + | Chronic kidney disease, stage III (moderate) (HCC) - Primary Chronic kidney disease, | | Stage III (moderate) | + + | Essential hypertension Unspecified essential hypertension | + + | Type II or unspecified type diabetes mellitus with renal manifestations, not stated as | | uncontrolled(250.40) ([facility]) 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
--- OUTSIDE RECORDS SUMMARY | ~2019-10-22 | XMS | Encounter Summary ---
Demographics + + + | Address | [address] | | | [place] [address] | + + + | Home Phone [...] [place] | | | | | [address] | | + + + + + | Atif Delgadillo | ECON | [place], [place] | | | | | [address] | | + + + + + | Caleb Dawn | ECON | Unknown | | + + + + + Care Team Providers + +------+ + | Care Hazardous Substances Scientist Name | Role | Phone | + +------+ + PCP | Unavailable | + +------+ + Encounter Details +--------+ + + + + | Date | Type | Department | Care Team | Description | +--------+ + + + + | 11/22/ | Documentati | [facility] | Freddy Sanchez | | | 2013 | on | NEPHROLOGY [address] | M, DO [address] [place] | | | | | [address] [facility] [address] | [place], [facility] 100 | | | | | [place] | [place] | | | | | [address] | [address] | | | | | [phone] | | | +--------+ + + + [...] | Visit | | DO Anival Bhagat [place] | | | | | | [address] | | | | | | [place] | | | | | | [address] | | | | | | | | +--------+ + + + + | 05/20/ | Office | Cardiology | Yumiko Del Valle, | | | 2019 | Visit | | MD Lupe TYLER | | | | | | [place] | | | | | | [address] | | | | | | | | +--------+ + + + + documented as of this encounter Visit Diagnoses Not on filedocumented in this encounter"
--- OUTSIDE RECORDS SUMMARY | ~2019-10-22 | XMS | Encounter Summary ---
Demographics + + + | Address | [address] | | | [place] [address] | + + + | Home Phone [...] [place] | | | | | [address] | | + + + + + | Atif Delgadillo | ECON | [place], [place] | | | | | [address] | | + + + + + | Caleb Dawn | ECON | Unknown | | + + + + + Care Team Providers + +------+ + | Care Missile Pad Mechanic Name | Role | Phone | [...] [address] | | | | | [employer], | [place], | | | | | [place] [address] | [place] [address] | | | | | [phone] | [phone] | | | | | | | [...] 03/16/ | Off-Site | Nephrology | Freddy Sanchze | | | 2019 | Visit | | M, DO [address] | | | | | | [place], [place] [address] | | | | | | [place] | | | | | | [address] | | | | | | | | +--------+ + + + + | 05/20/ | Office | Cardiology | Yumiko Del Valle, | | | 2019 | Visit | | [address] | | | | | | [place], [place] | | | | | | [address] | | | | | | | [...] | EXTERNAL LAB: AST | Routin | 01/13/2014 | | Results [...] | [address] | [place] | | | [facility] | | [address] | | | - LABORATORY | | [...] 4.5 | 3.3 - 4.8 g/dL | [facility] | | | | | | [address] [...] + + | [address] | [address] | [place] | | | [facility] | | [address] | | | - LABORATORY | | [...] Resulting Agency Comment | + + | [facility] | + + + +---------+ + [...]
--- OUTSIDE RECORDS SUMMARY | ~2019-10-22 | XMS | Encounter Summary ---
Demographics + + + | Address | [address] | | | [place] [address] | + + + | Home Phone [...] + + + | Author | [facility] | | | and [place] | + + + | Organization | [facility] | | | and [place] | + + + | Address | Unknown | + + + | Phone | Unavailable | + + + Support + + + + + | Name | Relationship | Address | Phone | + + + + + | Hi Dawn | ECON | [place] | | | | | [address] | | + + + + + | Atif Delgadillo | ECON | [place], [place] | | | | | [address] | | + + + + + | Caleb Dawn | ECON | Unknown | | + + + + + Care Team Providers + +------+ + | Care Street And Building Decorator Name | Role | Phone | + [...] + + | 12/11/ | Telephone | [facility] | Winsome Fam W, | Gout Pain | | 2013 | | NEPHROLOGY [address] | [address] | | | | | [address] [facility] | [address] [facility] | | | | | [place], [place] | [place] [address] | | | | | [address] | [phone] | | | | | [phone] | | | +--------+ + + + [...] [place] | | | | | | [address] | | | | | | | | +--------+ + + + + | 05/20/ | Office | Cardiology | Yumiko Del Valle, | | | 2019 | Visit | | MD [address]pe [address] | | | | | | [place] | | | | | | [phone] | | | | | | | | +--------+ + + + + documented as of this encounter Visit Diagnoses Not on filedocumented in this encounter"
--- OUTSIDE RECORDS SUMMARY | ~2019-10-22 | XMS | Encounter Summary ---
Demographics + + + | Address | [address] | | | [place] [address] | + + + | Home Phone | | + + + | Preferred Language | Unknown | + + + | Marital Status | Single | + + + | Roman Catholic Affiliation | Unknown | + + + | Race | Unknown | + + + | Ethnic Group | Unknown | + + + Author + + + | Author | [facility] | | | and [place] | + + + | Organization | [facility] | | | and [place] | + + + | Address | Unknown | + + + | Phone | Unavailable | + + + Support + + + + + | Name | Relationship | Address | Phone | + + + + + | Hi Dawn | ECON | [place] | | | | | [address] | | + + + + + | Atif Delgadillo | ECON | [place], [place] | | | | | [address] | | + + + + + | Caleb Dawn | ECON | Unknown | | + + + + + Care Team Providers + +------+ + | Care Rough Rice Grader Name | Role | Phone | + +------+ + PCP | Unavailable | + +------+ + Encounter Details +--------+ + + + + | Date | Type | Department | Care Team | Description | +--------+ + + + + | 02/28/ | Hospital | [facility] | Saad Ivan | | | 2001 | Encounter | MED CTR SLEEP | MD Tomás [address] | | | | | [place] [address] | [facility] | | | | | [place] | [place] [address] | | | | | [address] | [phone] | | | | | [phone] | | | +--------+ + + + [...] | Visit | | DO Olayinka [address] [place] [address] | | | | | | [place] | | | | | | [place] | | | | | | [address] | | | | | | | | +--------+ + + + + | 05/20/ | Office | Cardiology | Yumiko Del Valle, | | | 2019 | Visit | | MD Lupe TYLER | | | | | | [place] | | | | | | [phone] | | | | | | | | +--------+ + + + + documented as of this encounter Visit Diagnoses [facility]"
--- OUTSIDE RECORDS SUMMARY | ~2019-10-22 | XMS | Encounter Summary ---
Demographics + + + | Address | [address] | | | [place] [address] | + + + | Home Phone [...] [place] | | | | | [address] | | + + + + + | Atif Delgadillo | ECON | [place] | | | | | [address] | | + + + + + | Caleb Dawn | ECON | Unknown | | + + + + + Care Team Providers + +------+ + | Care Americanization Teacher Name | Role | Phone | [...] NEPHROLOGY [address] | M, DO [address] | | | | | [address] [facility] | [place], [place] [address] | | | | | [place], [place] | [place], [place] | | | | | [address] | [address] | | | | | [phone] | | | +--------+ + + + [...] Bhagat | | | | | | [place], [place] [address] | | | | | | [place] | | | | | | [address] | | | | | | | | +--------+ + + + + | 05/20/ | Office | Cardiology | Yumiko Del Valle, | | | 2019 | Visit | | [address] | | | | | | [place] | | | | | | [address] | | | | | | | [...]
--- OUTSIDE RECORDS SUMMARY | ~2019-10-22 | XMS | Encounter Summary ---
Demographics + + + | Address | [address] | | | [place] [address] | + + + | Home Phone | | + + + | Preferred Language | Unknown | + + + | Marital Status | Single | + + + | Lutheran Affiliation | Unknown | + + + | Race | Unknown | + + + | Ethnic Group | Unknown | + + + Author + + + | Author | [facility] | | | and [place] | + + + | Organization | [facility] | | | and [place] | + + + | Address | Unknown | + + + | Phone | Unavailable | + + + Support + + + + + | Name | Relationship | Address | Phone | + + + + + | Hi Dawn | ECON | [place] | | | | | [address] | | + + + + + | Atif Delgadillo | ECON | [place], [place] | | | | | [address] | | + + + + + | Caleb Dawn | ECON | Unknown | | + + + + + Care Team Providers + +------+ + | Care Mobile Equipment Operator Name | Role | Phone | + +------+ + PCP | Unavailable | + +------+ + Encounter Details +--------+ + + + + | Date | Type | Department | Care Team | Description | +--------+ + + + + | 12/09/ | Orders Only | [facility] | Winsome Fam W, | Hypertension | | 2013 | | NEPHROLOGY [address] | MD [address] [place] | (Primary Dx) | | | | [address] [place] [address] | [place] [address] [place] | | | | | [place] | [place] [address] | | | | | [address] | [phone] | | | | | [phone] | | | +--------+ + + + [...] | 2020 | Visit | | M, DO [address] | | | | | | [place], [place] [address] | | | | | | [place], [place] | | | | | | [address] | | | | | | | | +--------+ + + + + | 05/20/ | Office | Cardiology | Yumiko Del Valle, | | | 2019 | Visit | | MD [address] | | | | | | [place] | | | | | | [address] | | | | | | | | +--------+ + + + + documented as of this encounter Visit Diagnoses + + | Diagnosis | + + | Hypertension - Primary Unspecified essential hypertension | + + documented in this encounter"
--- OUTSIDE RECORDS SUMMARY | ~2019-10-22 | XMS | Encounter Summary ---
Demographics + + + | Address | [address] | | | [place] [address] | + + + | Home Phone [...] [place] | | | | | [address] | | + + + + + | Atif Delgadillo | ECON | [place], [place] | | | | | [address] | | + + + + + | Caleb Dawn | ECON | Unknown | | + + + + + Care Team Providers + +------+ + | Care Managing Cognitive Engineer Name | Role | Phone | [...] W | M, DO [address] [place] | disease, stage III | | | | [address] [place] [address] | [place], [place] [address] | (moderate) (Primary | | | | [place], [place] | [place], [place] | Dx); Type II or | | | | [address] | [address] | unspecified type | | | | [phone] | | diabetes mellitus | | | [...] for nephrology appt [facility] 11[facility]25/[facility] [place].Electronically signed by Jelena Wick RN at 03/2013 3:16 PM PSTdocumented in this encounter Plan of Treatment +--------+ + + + + | Date | Type | Specialty | Care Team | Description | +--------+ + + + + | 03/16/ | Off-Site | Nephrology | Freddy Sanchez | | 2019 | Visit | | DO [address] [place] [address] | | | | | | [place] | | | | | | [place] | | | | | | [address] | | | | | | | | +--------+ + + + + | 05/20/ | Office | Cardiology | Yumiko Del Valle, | | | 2019 | Visit | | MD Lupe TYLER | | | | | | [place] | | | | | | [phone] | | | | | | | [...] | Chronic kidney disease, stage III (moderate) ([facility]) - Primary Chronic kidney disease, | | Stage III (moderate) | + + | Type II or unspecified type diabetes mellitus with renal manifestations, not stated as | | uncontrolled(250.40) ([facility]) Type II or unspecified type diabetes mellitus [...]
--- OUTSIDE RECORDS SUMMARY | ~2019-10-22 | XMS | Encounter Summary ---
Demographics + + + | Address | [address] | | | [place] [address] | + + + | Home Phone | | + + + | Preferred Language | Unknown | + + + | Marital Status | Single | + + + | Scientology Affiliation | Unknown | + + + [...] [place] | | | | | [address] | | + + + + + | Atif Delgadillo | ECON | [place], [place] | | | | | [address] | | + + + + + | Caleb Dawn | ECON | Unknown | | + + + + + Care Team Providers + +------+ + | Care Pharmaceutical Plant Operator Name | Role | Phone | [...] + + | 07/06/ | Telephone | [facility] | Freddy Sanchez | Blood Pressure | | 2016 | | NEPHROLOGY [address] | M, DO [address] [place] | | | | | [address] [place] [address] | [place], [place] [address] | | | | | [place], [place] | [place] [facility], [place] | | | | | [address] | [address] | | | | | [phone] | | | +--------+ + + + [...] | Visit | | DO Olayinka [address] [place] [address] | | | | | | [place] [address] | | | | | | [place] | | | | | | [address] | | | | | | | | +--------+ + + + + | 05/20/ | Office | Cardiology | Yumiko Del Valle, | | | 2019 | Visit | | MD Lupe TYLER | | | | | | [place] | | | | | | [address] | | | | | | | | +--------+ + + + + documented as of this encounter Visit Diagnoses Not on filedocumented in this encounter"
--- OUTSIDE RECORDS SUMMARY | ~2019-10-22 | XMS | Encounter Summary ---
Demographics + + + | Address | [address] | | | [place] [address] | + + + | Home Phone | | + + + | Preferred Language | Unknown | + + + | Marital Status | Single | + + + | Religion Affiliation | Unknown | + + + | Race | Unknown | + + + | Ethnic Group | Unknown | + + + Author + + + | Author | [facility] | | | and [place] | + + + | Organization | [facility] | | | and [place] | + + + | Address | Unknown | + + + | Phone | Unavailable | + + + Support + + + + + | Name | Relationship | Address | Phone | + + + + + | Hi Dawn | ECON | [place] | | | | | [address] | | + + + + + | Atif Delgadillo | ECON | [place], [place] | | | | | [address] | | + + + + + | Caleb Danw | ECON | Unknown | | + + + + + Care Team Providers + +------+ + | Care Healthcare Administration Internship Name | Role | Phone | + [...] NEPHROLOGY [address] | M, DO [address] [place] | | | | | [address] [place] [address] | [place], [place] [address] | | | | | [place], [place] | [place] | | | | | [address] | [address] | | | | | [phone] | | | +--------+ + + + [...] | Visit | | M, DO [address] | | | | | | [place], [place] [address] | | | | | | [place] | | | | | | [address] | | | | | | | | +--------+ + + + + | 05/20/ | Office | Cardiology | Yumiko Del Valle, | | | 2019 | Visit | | MD Lupe TYLER | | | | | | [place] | | | | | | [address] | | | | | | | | +--------+ + + + + documented as of this encounter Visit Diagnoses Not on filedocumented in this encounter"
--- OUTSIDE RECORDS SUMMARY | ~2019-10-22 | XMS | Encounter Summary ---
Demographics + + + | Address | [address] | | | [place] [address] | + + + | Home Phone | | + + + | Preferred Language | Unknown | + + + | Marital Status | Single | + + + | Sikhism Affiliation | Unknown | + + + | Race | Unknown | + + + | Ethnic Group | Unknown | + + + Author + + + | Author | [facility] | | | and [place] | + + + | Organization | [facility] | | | and [place] | + + + | Address | Unknown | + + + | Phone | Unavailable | + + + Support + + + + + | Name | Relationship | Address | Phone | + + + + + | Hi Dawn | ECON | [place] | | | | | [address] | | + + + + + | Atif Delgadillo | ECON | [place], [place] | | | | | [address] | | + + + + + | Caleb Dawn | ECON | Unknown | | + + + + + Care Team Providers + +------+ + | Care Camera Repairer Name | Role | Phone | [...] NEPHROLOGY [address] | M, DO [address] [place] | disease, stage III | | | | [address] [place] [address] | [place], [place] [address] | (moderate) (Primary | | | | [place], [place] | [place], [place] | Dx); Type 2 diabetes | | | | [address] | [address] | mellitus with stage | | | | [phone] | | 3 chronic kidney | | [...] for nephrology appointment on 10/26/15 faxed to [facility]. documented in this encounter Plan of Treatment +--------+ + + + + | Date | Type | Specialty | Care Team | Description | +--------+ + + + + | 03/16/ | Off-Site | Nephrology | Freddy Sanchez | | | 2019 | Visit | | DO [address] [place] | | | | | | [place] [address] | | | | | | [place] | | | | | | [address] | | | | | | | | +--------+ + + + + | 05/20/ | Office | Cardiology | Yumiko Del Valle, | | | 2019 | Visit | | MD Lupe [address]YL[address] | | | | | | [place] | | | | | | [address] | | | | | | | [...]
--- OUTSIDE RECORDS SUMMARY | ~2019-10-22 | XMS | Encounter Summary ---
Demographics + + + | Address | [address] | | | [place] [address] | + + + | Home Phone [...] [place] | | | | | [address] | | + + + + + | Atif Delgadillo | ECON | [place], [place] | | | | | [address] | | + + + + + | Caleb Dawn | ECON | Unknown | | + + + + + Care Team Providers + +------+ + | Care Personal Lines Advisor Name | Role | Phone | + [...] | Dx); Hypertension; | | | | [place], | [place], | Hyperlipidemia; | | | | [place] [address] | [place] [address] | Chronic kidney | | | | [phone] | [phone] | disease, stage III | | | [...] fraction A. Patient was recently admitted to [facility] with a profound anemia with hemoglobin of [...] this chart may have been created with [employer] voice recognition software. Occasi onal wrong-word or [...] | Visit | | DO Olay[address]a [address] [place] [address] | | | | | | [place] | | | | | | [place] | | | | | | [address] | | | | | | | | +--------+ + + + + | 05/20/ | Office | Cardiology | Yumiko Del Valle, | | | 2019 | Visit | | MD Lupe TYLER | | | | | | [place] | | | | | | [phone] | | | | | | | [...]
--- OUTSIDE RECORDS SUMMARY | ~2019-10-22 | XMS | Encounter Summary ---
Demographics + + + | Address | [address] | | | [place] [address] | + + + | Home Phone | | + + + | Preferred Language | Unknown | + + + | Marital Status | Single | + + + | Yazidi Affiliation | Unknown | + + + [...] [place] | | | | | [address] | | + + + + + | Atif Delgadillo | ECON | [place], [place] | | | | | [address] | | + + + + + | Caleb Dawn | ECON | Unknown | | + + + + + Care Team Providers + +------+ + | Care Grid Molder Name | Role | Phone | [...] NEPHROLOGY [address] | M, DO [address] | | | | | [address] [place] [address] | [place], [place] [address] | | | | | [place], [place] | [place] | | | | | [address] | [address] | | | | | [phone] | | | +--------+ + + + [...] | Visit | | M, DO [address] | | | | | | [place], [place] [address] | | | | | | [place] | | | | | | [address] | | | | | | | | +--------+ + + + + | 05/20/ | Office | Cardiology | Yumiko Del Valle, | | | 2019 | Visit | | [address] | | | | | | [place], [place] | | | | | | [address] | | | | | | | [...] + | [address] | [address] | [place] | [phone] | | [facility] | | [address] | | | - LABORATORY | | [...]
--- OUTSIDE RECORDS SUMMARY | ~2019-10-22 | XMS | Encounter Summary ---
Demographics + + + | Address | [address] | | | [place] [address] | + + + | Home Phone [...] [place] | | | | | [address] | | + + + + + | Atif Delgadillo | ECON | [place], [place] | | | | | [address] | | + + + + + | Caleb Dawn | ECON | Unknown | | + + + + + Care Team Providers + +------+ + | Care Medical Videographer Name | Role | Phone | + [...] | kidney | MD [address] | [address] | | | | | disease, | [place] | [place] | | | | | stage III | [place] | [address] [place] | | | | | (moderate) | [place], | [place] | | | | | (HCC) Type | [place] | [address] Phone: | | | | | [place] | [address] | [phone] | | | | | unspecified | Phone: | Fax: | | | | | type | [phone] | [phone] | | | | | diabetes | Fax: | | | | | | mellitus | [phone] | | | | | | with renal | | | | | | | manifestatio | | | | | | | ns, not | | | | | | | stated as | | | | | | | uncontrolled | | | | | | | (250.40) | | | | | | | [...] | | | | | | | ME OFFICE | | | | | | | OUTPATIENT | | | | | | | VISIT 25 | | | | | | | MINUTES | | | +--------+--------+ + + + + Encounter Details +--------+ + + + + | Date | Type | Department | Care Team | Description | +--------+ + + + + | 10/26/ | Off-Site | [facility] [place] | Freddy Sanchez | Type 2 diabetes | | 2015 | Visit | NEPHROLOGY [address] | M, DO [address] | mellitus with stage | | | | [address] [place] [address] | [place], [place] [address] | 3 chronic kidney | | | | [place], [place] | [place], [place] | disease (HCC) | | | | [address] | [phone] | (Primary Dx); | | | | [phone] | | Chronic kidney | | | | | | disease, stage III | | | | | | (moderate); | | | | | | Hypertension, | | | | | | essential; Secondary | | | | | | [...] + + + | Blood Pressure | 142/76 | 10/26/2015 2:21 PM | | | | | PST | | + + + + + | Pulse | - | - | | + + + + + | Temperature | 35.6 C (96 F) | 10/26/2015 2:21 PM | | | | | PST [...] | 130 kg (286 lb 9.6 | 10/26/2015 2:21 PM | | | | oz) | PST | | + + + + + | Height | - | - | | + + + + + | Body Mass Index | 35.82 | 11/06/2014 9:51 AM | | | | | PST | | + + + + + documented in this encounter Progress Notes Freddy Sanchez DO - 10/26/2015 2:22 PM PST Subjective: NEPHROLOGY Patient ID: Steve Tanner is a 70 y.o. male. HPI Comments: Follow-up for this 70 YO white male with CKD secondary to Type 2 DM, also wi th a remote DU, found on EGD, 2013, hypertension, hyperlipidemia, DJD of knees, SHPTH, ASCV D, s/p left CEA, 2005, anemia secondary to CKD, and Type 2 DM. 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 Outpatient Prescriptions Marked as Taking for the 10/26/15 encounter (Off-Site Visit) with Olayinka Sanchez DO Medication Sig Dispense Refill allopurinol (ZYLOPRIM) 300 mg tablet Take 300 mg by mouth Daily. calcitriol (ROCALTROL) 0.5 MCG capsule Take 2 capsules [...] (ELOCON) 0.1 % cream Apply topically Daily. rosuvastatin (CRESTOR) 5 MG tablet Take 5 mg by mouth Three times a week. terbinafine (LAMISIL) 250 MG tablet Take 250 mg by mouth Daily. For 90 days, then, off for 90 days. Allergies Allergen Reactions Lisinopril Other (See Comments) Cough Penicillins Rash Objective: BP 142/76 mmHg | Temp(Src) 35.6 C (96 F) | Wt 130 kg (286 lb 9.6 oz) Physical Exam Heart: Regular rate and rhythm with no S3, S4, murmur or rub. Lungs: CTA bilaterally. No rales or wheezes. Abdomen: Soft, flat, no epigastric tenderness, normoactive bowel sounds. Extremities: 1+ edema, no clubbing, no foot ulcer. Lab Results Component Value Date NAEX 141 10/22/2015 KEX 4.0 10/22/2015 CLEX 101 10/22/2015 CO2EX 27 10/22/2015 BUNEX 54* 10/22/2015 CREEX 2.36* 10/22/2015 EGFREX 27 10/22/2015 GLUEX 160* 10/22/2015 PHOSEX 4.0 10/22/2015 PTHEX 129* 10/22/2015 TNU4VPE 7.0 10/22/2015 Lab Results Component Value Date WBCEX 6.3 10/22/2015 HGBEX 13.3* 10/22/2015 HCTEX 39.6* 10/22/2015 PLTEX 131* 10/22/2015 Lab Results Component Value Date CRCLEARANCE 47.0* 10/22/2015 PROTEX 110 10/22/2015 Assessment: 1. CKD Stage 3, secondary to diabetic glomerulosclerosis and HTN--the Sc is slowly worseni ng over time, very indolently. 2. Hypertension--good control. 3. Type 2 DM--overall, his glycemic is good. 4. SHPTH--PTH is above target. 5. 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 6. ASCVD/ s/p left CEA, 2005--stable. 7. Hyperlipidemia--on statin Rx. 8. Gout--in remission. Plan: 1. He is very concerned today about his glycemic control as apparently, some days is gets up to 200 mg/dl. He states that Dr. Garza is contemplating putting him on long acting insu izzy, which is reasonable. 2. Will increase his Calcitriol to 0.5 mcg, daily to target his PTH , 70 pg/ml to help dec rease his tank terminal gauger CV risk. 3. I discussed with Dr. Tanner that overall, he is making a very good effort , but furt her decreasing his weight, and portions over time will only help matters also. 4. Will plan to see him back in 6 mo. He will have a CBC, CMP, P04, PTH, HbA1c, lipid pr ofile and 24-hour urine collection one week prior to that. : Hema Ahn DPM documented in thi s encounter Plan of Treatment +--------+ + + + + | Date | Type | Specialty | Care Team | Description | +--------+ + + + + | 03/16/ | Off-Site | Nephrology | Freddy Sanchez | | | 2019 | Visit | | DO [address] | | | | | | [place], [...] | | | | | | [place] [facility] [place] | | | | | | [address] | | | | | | | | +--------+ + + + + documented as of this encounter Visit Diagnoses + + | Diagnosis | + + | Type 2 diabetes mellitus with stage 3 chronic kidney disease (HCC) - Primary Type II | | or unspecified type diabetes mellitus with renal manifestations, not stated as | | uncontrolled | + + | Chronic kidney disease, stage III (moderate) (HCC) Chronic kidney disease, Stage III | | (moderate) | + + | Hypertension, essential Unspecified essential hypertension | + + | Secondary hyperparathyroidism of renal origin (HCC) Secondary hyperparathyroidism (of | | renal origin) | + + documented in this encounter"
--- OUTSIDE RECORDS SUMMARY | ~2019-10-22 | XMS | Encounter Summary ---
Demographics + + + | Address | [address] | | | [place] [address] | + + + | Home Phone [...] [place] | | | | | [address] | | + + + + + | Atif Delgadillo | ECON | [place], [place] | | | | | [address] | | + + + + + | Caleb Dawn | ECON | Unknown | | + + + + + Care Team Providers + +------+ + | Care Instrument Assembler Name | Role | Phone | + +------+ + PCP | Unavailable | + +------+ + Encounter Details +--------+ + + + + | Date | Type | Department | Care Team | Description | +--------+ + + + + | 02/28/ | Hospital | [facility] | Saad Ivan | | | 2001 | Encounter | MED CTR SLEEP | MD Tom[address] | | | | | [place] [address] | [place] [facility] | | | | | [place] | [place] [address] | | | | | [address] | [phone] | | | | | [phone] | | | +--------+ + + + [...] 2019 | Visit | | DO Olayinka [address] [place] [address] | | | | | | [place] | | | | | | [place] | | | | | | [address] | | | | | | | | +--------+ + + + + | 05/20/ | Office | Cardiology | Yumiko Del Valle, | | | 2019 | Visit | | MD Lupe TYLER | | | | | | [place] | | | | | | [phone] | | | | | | | | +--------+ + + + + documented as of this encounter Visit [facility]oses [facility]"
--- OUTSIDE RECORDS SUMMARY | ~2019-10-22 | XMS | Encounter Summary ---
Demographics + + + | Address | [address] | | | [place] [address] | + + + | Home Phone [...] [place] | | | | | [address] | | + + + + + | Atif Delgadillo | ECON | [place], [place] | | | | | [address] | | + + + + + | Caleb Dawn | ECON | Unknown | | + + + + + Care Team Providers + +------+ + | Care Legal Archivist Name | Role | Phone | + +------+ + PCP | Unavailable | + +------+ + Encounter Details +--------+ + + + + | Date | Type | Department | Care Team | Description | +--------+ + + + + | 12/05/ | Hospital [facility] | Winsome Fam, | | | 2013 - | Encounter | [facility] | [address] | | | | | [address] | [facility] [address] [place] | | | 12/09/ | | [place] [address] | [place] [address] | | | 2013 | | [phone] | [phone] | | | | | | | [...] documented as of this encounter Discharge Summaries Winsome Fam MD - 12/09/2013 10:25 [place] [address] Patient Name: SERGEI TANNER Provider: Winsome Fam MD Unit #: [id number] Locatio n: 4EM : 1945 ADMISSION DATE: 12/05/2013 DISCHARGE DATE: 12/09/2013 PRIMARY DIAGNOSIS: ACUTE ON CHRONIC KIDNEY FAILURE DUE TO PRERENAL AZOTEMIA. ADDITIONAL DIAGNOSES 1. Type 2 diabetes mellitus. 2. Hypertension. 3. Anemia due to chronic kidney disease. 4. Obstructive sleep apnea. HOSPITAL COURSE: Mr. Tanner is a 68-year-old gentleman with history of chronic kidney dis ease, type 2 diabetes mellitus, and hypertension who was admitted with acute renal failure. His initial BUN was 157 with a serum creatinine of 8.5. He also had hyperkalemia of 5.9. F rom the history, this occurred in the setting of lightheadedness, malaise, and decreased p. o. intake. The patient did not have any fever or leukocytosis to indicate an infectious xavi rce for his acute kidney injury. Furthermore, patient remained nonoliguric, and was able to recover easily with IV hydration. The patient received IV fluids in the form of sodium bic arbonate for initial metabolic acidosis. He was then switched to normal saline and finally to half normal saline for further hydration. The patient had post-BEN diuresis with a urine output of greater than 3000 mL per day. By day of discharge, patient's BUN had decreased t o 60 with a serum creatinine of 2.5. During the hospitalization, all of patient's prior blo od pressure medications were held except for metoprolol, which was started at 25 mg twice a day for cardioprotection. The patient's blood pressure remained stable in the ranges of 120 s-140s over 60s- 70s. Therefore, patient may have been over-medicated as an outpatient for his systemic blood pressure. I counseled patient that his goal blood pressure, given his ag e, should be less than 140 over less than 90. The patient's anemia remained stable and patient did not require any blood transfusion. The patient also complained of left knee pain without erythema or swelling, which may be a res olving gout flare up. Patient's serum uric acid level was low at 5.5. The patient is to con tinue on his allopurinol for uric acid lowering. Patient was instructed to avoid ibuprofen/ NSAIDs, and to stop the combination pill , colchicine-probenecid, since he developed a rash on this medication. If patient develops another gout flare-up, simply colchicine alone i.e ., Colcrys may be a reasonable choice or a short course of prednisone. DISCHARGE MEDICATIONS 1. Allopurinol 200 mg p.o. every day. 2. Calcitriol 0.25 mcg p.o. every day. 3. Plavix 75 mg p.o. every day. 4. Aspirin 325 mg p.o. every day. 5. Gemfibrozil 600 mg p.o. b.i.d. 6. Hydrocodone 1 tablet q.6 hours p.r.n. 7. Insulin glargine 4 units subcutaneous at bedtime. 8. Tradjenta 5 mg p.o. every day. 9. Niacin 500 mg p.o. b.i.d. 10. Simvastatin 10 mg p.o. at bedtime. 11. Docusate 100 mg p.o. every day. 12. Tylenol 650 mg p.o. q.6 hours p.r.n. for pain. 13. MiraLax 1 packet p.o. every day p.r.n. for constipation. 14. Carvedilol 12.5 mg p.o. b.i.d. This is a new medication for patient's blood pressure. 15. Benicar 20 mg p.o. every day. I will send a prescription for this to start later once his kidney function has fully recovered. 16. Furosemide 20 mg p.o. b.i.d., to be held for now as patient is having post-renal failur e diuresis. MEDICATIONS THAT WERE STOPPED DURING THIS HOSPITALIZATION 1. Metformin 500 mg p.o. every day. 2. Atenolol 100 mg p.o. every day. 3. Clonidine 0.1 mg p.o. b.i.d. 4. Diltiazem 180 mg p.o. every day. 5. Benicar HCT 40 mg/12.5 mg p.o. every day. This medication has been changed to simply Andrew icar alone to remove the diuretic component. CONDITION ON DISCHARGE: Stable. Discharged to home. FOLLOWUP: The patient will do labs next Monday on 12/16/2013. He has a followup appointment with Dr. Neeraj Sanchez on 12/23/2013 at 2 p.m. at the [facility] in [place], [place]. DICTATED BY: Winsome Fam MD Nephrology JOB #: [id number] EXT JOB #:[id number] cc: DO Quique Hall MD, primary care in [place] <<Signature on File>> Olayinka Ching D012/09/13 1443 < documented in thi s encounter Medications at Time of Discharge + [...] + + + +---------+ + + | aspirin 325 mg | Take 325 mg by mouth | | 0 | | | | tablet | Daily. | | | | 4 | + [...] | | | | | | (moderate) ([facility]), | | | | | | [...] + + + +---------+ + + | clopidogrel | Take 75 mg by mouth | | 0 | | | | (PLAVIX) 75 mg | Daily. | | | | 4 | | tablet | | | | | | + + + +---------+ + + | furosemide (LASIX) | Take 1 tablet by | 30 | 11 | 09/04/20 | | | 40 mg | mouth Daily. | tablet | | 13 | 4 | | tabletIndications: | | [...] + + + +---------+ + + | olmesartan | Take 0.5 tablets by | 30 | 3 | 12/09/19 | | | (BENICAR) 20 mg | mouth Daily. | tablet | [...] | Visit | | DO [address] | | | | | | [address] | | | | | | [place], [place] | | | | | | [address] | | | | | | | | +--------+ + + + + | 05/20/ | Office | Cardiology | Yumiko Del Valle, | | | 2019 | Visit | | [address] | | | | | | [facility] [place] | | | | | | [address] | | | | | | | | +--------+ + + + + documented as of this encounter Procedures + +--------+ + + + | Procedure Name | Priori | Date/Time | Associated Diagnosis | Comments | | | ty | | | | + +--------+ + + + | POC GLUCOSE | Routin | 12/09/2013 | | Results for this | | | e | 7:22 AM | | procedure are in the | | | | PST | | results section. | + +--------+ + + + | RENAL FUNCTION PANEL | Routin | 12/09/2013 | | Results for this | | | e | 7:07 AM | | procedure are in the | | | | PST | | results section. | + +--------+ + + + | POC GLUCOSE | Routin | 12/08/2013 | | Results for this | | | e | 10:08 PM | | procedure are in the | | | | PST | | results section. | + +--------+ + + + | POC GLUCOSE | Routin | 12/08/2013 | | Results for this | | | e | 5:43 PM | | procedure are in the | | | | PST | | results section. | + +--------+ + + + | POC GLUCOSE | Routin | 12/08/2013 | | Results for this | | | e | 11:56 AM | | procedure are in the | | | | PST | | results section. | + +--------+ + + + | POC GLUCOSE | Routin | 12/08/2013 | | Results for this | | | e | 7:27 AM | | procedure are in the | | | | PST | | results section. | + +--------+ + + + | RENAL FUNCTION PANEL | Routin | 12/08/2013 | | Results for this | | | e | 6:41 AM | | procedure are in the | | | | PST | | results section. | + +--------+ + + + | POC GLUCOSE | Routin | 12/07/2013 | | Results for this | | | e | 4:44 PM | | procedure are in the | | | | PST | | results section. | + +--------+ + + + | RENAL FUNCTION PANEL | Routin | 12/07/2013 | | Results for this | | | e | 2:10 PM | | procedure are in the | | | | PST | | results section. | + +--------+ + + + | POC GLUCOSE | Routin | 12/07/2013 | | Results for this | | | e | 11:59 AM | | procedure are in the | | | | PST | | results section. | + +--------+ + + + | RENAL FUNCTION PANEL | Routin | 12/07/2013 | | Results for this | | | e | 6:49 AM | | procedure are in the | | | | PST | | results section. | + +--------+ + + + | POC GLUCOSE | Routin | 12/06/2013 | | Results for this | | | e | 5:29 PM | | procedure are in the | | | | PST | | results section. | + +--------+ + + + | RENAL FUNCTION PANEL | Routin | 12/06/2013 | | Results for this | | | e | 1:03 PM | | procedure are in the | | | | PST | | results section. | + +--------+ + + + | POC GLUCOSE | Routin | 12/06/2013 | | Results for this | | | e | 11:47 AM | | procedure are in the | | | | PST | | results section. | + +--------+ + + + | POC GLUCOSE | Routin | 12/06/2013 | | Results for this | | | e | 7:10 AM | | procedure are in the | | | | PST | | results section. | + +--------+ + + + | CBC WITH | Routin | 12/06/2013 | | Results for this | | DIFFERENTIAL | e | 4:18 AM | | procedure are in the | | | | PST | | results section. | + +--------+ + + + | RENAL FUNCTION PANEL | Routin | 12/06/2013 | | Results for this | | | e | 4:18 AM | | procedure are in the | | | | PST | | results section. | + +--------+ + + + | CULTURE, MRSA | Routin | 12/05/2013 | | | | | e | 7:23 PM | | | | | | PST | | | + +--------+ + + + | URIC ACID | Routin | 12/05/2013 | | Results for this | | | e | 7:23 PM | | procedure are in the | | | | PST | | results section. | + +--------+ + + + | CK TOTAL | Routin | 12/05/2013 | | Results for this | | | e | 7:23 PM | | procedure are in the | | | | PST | | results section. | + +--------+ + + + | RENAL FUNCTION PANEL | Routin | 12/05/2013 | | Results for this | | | e | 7:23 PM | | procedure are in the | | | | PST | | results section. | + +--------+ + + + documented in this encounter Results POC Glucose (12/09/2013 7:22 AM PST) + +-------+ + + + | Component | Value | Ref Range | Performed | Pathologist | | | | | At | Signature | + +-------+ + + + | Glucose, | 119 | 79 - 150 md/dL | [facility] [...] [address] | [place] | [phone] | | [facility] | | [address] | | | - LABORATORY | | | | + + + + + | [facility] | [address] | [place] | | | [facility] | | [address] | | | - LABORATORY | | | | + + + + + Renal Function Panel (12/09/2013 7:07 AM PST) + + + + + + | Component | Value | Ref Range | Performed | Pathologist | | | | | At | Signature | + + + + + + | Glucose | 105 | 70 - 109 mg/dL | [facility] | | | | | | [facility] | | | | | | [facility] | | | | | | C[facility] - | | | | | | LABORATORY | | + + + + + + | Calcium | 9.5 | 8.3 - 10.5 | [facility] | | | | | mg/dL | [facility] | | | | | | [facility] | | | | | | CENTER - | | | | | | LABORATORY | | + + + + + + | Phosphorus | 3.1 | 2.5 - 4.6 mg/dL | [facility] | | | | | | [facility] | | | | | | [facility] | | | | | | C[facility] - | | | | | | LABORATORY | | + + + + + + | Albumin | 3.7 | 3.2 - 5.0 gm/dL | [facility] | | | | | | [facility] | | [facility] | | | [facility]ICAL | | | | | | CENTER - | | | | | | LABORATORY | | + + + + + + | BUN | 60 (H) | 7 - 18 mg/dL | [facility] | | | | | | [facility] | | | | | | [facility] | | | | | | CENTER - | | | | | | LABORATORY | | + + + + + + | Creatinine | 2.47 (H) | 0.60 - 1.30 | [facility] | | | | | mg/dL | [facility] | | | | | | MEDICAL | | | | | | CENTER - | | | | | | LABORATORY | | + + + + + + | Estimated | 26 (L)Comment: For | >60 mL/min/A | [facility] [...] + + + + | BUN/Creatin | 24.3 (H) | 12 - 20 | [facility] [...] + + + + | Cl | 100 | 98 - 109 mEq/l | [facility] | | | | [facility] | | | | | | MEDICAL | | | | | | CENTER - | | | | | | LABORATORY | | + + + + + + | CO2 | 28 | 24 - 31 mEq/L | [facility] | | | | | | [facility] | | | | | | MEDICAL | | | | | | CENTER - | | | | | | LABORATORY | | + + + + + + | Anion Gap | 15.3 | 6.0 - 17.0 | [facility] | [...] [address] | [place] | [phone] | | [facility] | | [address] | | | - LABORATORY | | | | + + + + + | [facility] | [address] | [place] | | | [facility] | | [address] | | | - LABORATORY | | | | + + + + + POC Glucose (12/08/2013 10:08 PM PST) + +---------+ + + + | Component | Value | Ref Range | Performed | Pathologist | | | | | At | Signature | + +---------+ + + + | Glucose, | 182 (H) | 79 - 150 md/dL | [...] + | [facility] | [address] | [place], [place] | [phone] | | [facility] | | [address] | | | - LABORATORY | | | | + + + + + | [facility] | [address] | [place], [place] | | | [facility] | | [address] | | | - LABORATORY | | | | + + + + + POC Glucose (12/08/2013 5:43 PM PST) + +-------+ + + + | Component | Value | Ref Range | Performed | Pathologist | | | | | At | Signature | + +-------+ + + + | Glucose, | 138 | 79 - 150 md/dL | [facility] [...] + | [facility] | [address] | [place] | [phone] | | [facility] | | [address] | | | - LABORATORY | | | | + + + + + | [facility] | [address] | [place] | | | [facility] | | [address] | | | - LABORATORY | | | | + + + + + POC Glucose (12/08/2013 11:56 AM PST) + +---------+ + + + | Component | Value | Ref Range | Performed | Pathologist | | | | | At | Signature | + +---------+ + + + | Glucose, | 164 (H) | 79 - 150 md/dL | [...] + | [facility] | [address] | [place], [place] | [phone] | | [facility] | | [address] | | | - LABORATORY | | | | + + + + + | [facility] | [address] | [place], [place] | | | [facility] | | [address] | | | - LABORATORY | | | | + + + + + POC Glucose (12/08/2013 7:27 AM PST) + +---------+ + + + | Component | Value | Ref Range | Performed | Pathologist | | | | | At | Signature | + +---------+ + + + | Glucose, | 168 (H) | 79 - 150 md/dL | [...] + | [facility] | [address] | [place] | [phone] | | [facility] | | [address] | | | - LABORATORY | | | | + + + + + | [facility] | [address] | [place] | | | [facility] | | [address] | | | - LABORATORY | | | | + + + + + Renal Function Panel (12/08/2013 6:41 AM PST) + + + + + + | Component | Value | Ref Range | Performed | Pathologist | | | | | At | Signature | + + + + + + | Glucose | 148 (H) | 70 - 109 mg/dL | [facility] | | | | | [facility] | | | | | | MEDICAL | | | | | | CENTER - | | | | | | LABORATORY | | + + + + + + | Calcium | 9.3 | 8.3 - 10.5 | [facility] | | | | | mg/dL | [facility] | | | | | | [facility] | | | | | | CENTER - | | | | | | LABORATORY | | + + + + + + | Phosphorus | 4.0 | 2.5 - 4.6 mg/dL | [facility] [...] + + + + | BUN | 90 (H) | 7 - 18 mg/dL | [facility] | | | | | | [facility] | | | | | | MEDICAL | | | | | | CENTER - | | | | | | LABORATORY | | + + + + + + | Creatinine | 3.05 (H) | 0.60 - 1.30 | [facility] | | | | | mg/dL | [facility] | | | | | | MEDICAL | | | | | | CENTER - | | | | | | LABORATORY | | + + + + + + | Estimated | 20 (L)Comment: For | >60 mL/min/A | [facility] | | | GFR | -Americans, | [...] + + + + | BUN/Creatin | 29.5 (H) | 12 - 20 | [facility] | | | ine Ratio | | | [facility] | | [...] K | 4.1 | 3.5 - 5.1 mEq/l | [facility] | | | | | | [facility] | | | | | | MEDICAL | | | | | | CENTER - | | | | | | LABORATORY | | + + + + + + | Cl | 102 | 98 - 109 mEq/l | [facility] | | | | | [facility] | | | | | | MEDICAL | | | | | | CENTER - | | | | | | LABORATORY | | + + + + + + | CO2 | 29 | 24 - 31 mEq/L | [facility] | | | | | | [facility] | | | | | | MEDICAL | | | | | | CENTER - | | | | | | LABORATORY | | + + + + + + | Anion Gap | 15.1 | 6.0 - 17.0 | [facility] | [...] + | [facility] | [address] | [place], [place] | [phone] | | [facility] | | [address] | | | - LABORATORY | | | | + + + + + | [facility] | [address] | [place], [place] | | | [facility] | | [address] | | | - LABORATORY | | | | + + + + + POC Glucose (12/07/2013 4:44 PM PST) + +---------+ + + + | Component | Value | Ref Range | Performed | Pathologist | | | | | At | Signature | + +---------+ + + + | Glucose, | 183 (H) | 79 - 150 md/dL | [...] [address] | [place] | [phone] | | [facility] | | [address] | | | - LABORATORY | | | | + + + + + | [facility] | [address] | [place] | | | [facility] | | [address] | | | - LABORATORY | | | | + + + + + Renal Function Panel (12/07/2013 2:10 PM PST) + + + + + + | Component | Value | Ref Range | Performed | Pathologist | | | | | At | Signature | + + + + + + | Glucose | 212 (H) | 70 - 109 mg/dL | [facility] | | | | [...] + + + + | Phosphorus | 5.1 (H) | 2.5 - 4.6 mg/dL | [facility] | | | | | | [facility] | | | | | | MEDICAL | | | | | | CENTER - | | | | | | LABORATORY | | + + + + + + | Albumin | 3.5 | 3.2 - 5.0 gm/dL | [facility] | | | | | | [facility] | | | | | | MEDICAL | | | | | | CENTER - | | | | | | LABORATORY | | + + + + + + | BUN | 120 ()Comment: @VALUE | 7 - 18 mg/dL | [facility] | | | | [facility]VIOUS | | [facility] | | | | RESULTS | | MEDICAL | | | | | | CENTER - | | | | | | LABORATORY | | + + + + + + | Creatinine | 4.37 (H) | 0.60 - 1.30 | [facility] | | | | | mg/dL | [facility] | | | | | | MEDICAL | | | | | | CENTER - | | | | | | LABORATORY | | + + + + + + | Estimated | 13 (L)Comment: For | >60 mL/min/A | [facility] [...] + + + + | BUN/Creatin | 27.5 (H) | 12 - 20 | [facility] | | | ine Ratio | | | [facility] | | | | | | MEDICAL | | | | | | CENTER - | | | | | | LABORATORY | | + + + + + + | Na | 140 | 136 - 149 mEq/L | [facility] [...] + + + + | Cl | 100 | 98 - 109 mEq/l | [facility] | | | | | | [facility] | | | | | | MEDICAL | | | | | | CENTER - | | | | | | LABORATORY | | + + + + + + | CO2 | 30 | 24 - 31 mEq/L | [facility] | | | | | | [facility] | | | | | | MEDICAL | | | | | | CENTER - | | | | | | LABORATORY | | + + + + + + | Anion Gap | 14.0 | 6.0 - 17.0 | [facility] | [...] + | [facility] | [address] | [place] | [phone] | | [facility] | | [address] | | | - LABORATORY | | | | + + + + + | [facility] | [address] | [place], [place] | | | [facility] | | [address] | | | - LABORATORY | | | | + + + + + POC Glucose (12/07/2013 11:59 AM PST) + +---------+ + + + | Component | Value | Ref Range | Performed | Pathologist | | | | | At | Signature | + +---------+ + + + | Glucose, | 194 (H) | 79 - 150 md/dL | [facility] | | | POC | | | [facility] | | | | | | [...] + | [facility] | [address] | [place] | [phone] | | [facility] | | [address] | | | - LABORATORY | | | | + + + + + | [facility] | [address] | [place] | | | [facility] | | [address] | | | - LABORATORY | | | | + + + + + Renal Function Panel (12/07/2013 6:49 AM PST) + + + + + + | Component | Value | Ref Range | Performed | Pathologist | | | | | At | Signature | + + + + + + | Glucose | 191 (H) | 70 - 109 mg/dL | [...] + + + + | Phosphorus | 5.4 (H) | 2.5 - 4.6 mg/dL | [facility] | | | | | | [facility] | | | | | | MEDICAL | | | | | | CENTER - | | | | | | LABORATORY | | + + + + + + | Albumin | 3.6 | 3.2 - 5.0 gm/dL | [facility] | | | | | | [facility] | | | | | | MEDICAL | | | | | | CENTER - | | | | | | LABORATORY | | + + + + + + | BUN | 135 ()Comment: @VALUE | 7 - 18 mg/dL | [facility] | | | | [facility]VIOUS | | [facility] | | | | RESULTS | | MEDICAL | | | | | | CENTER - | | | | | | LABORATORY | | + + + + + + | Creatinine | 5.03 (H)Comment: @VALUE | 0.60 - 1.30 | [facility] | | | | [facility]SI[facility] WITH PREVIOUS | mg/dL | [facility] | | | | RESULTS | | MEDICAL | | | | | | CENTER - | | | | | | LABORATORY | | + + + + + + | Estimated | 11 (L)Comment: For | >60 mL/min/A | [facility] [...] + + + + | BUN/Creatin | 26.8 (H) | 12 - 20 | [facility] [...] K | 4.1 | 3.5 - 5.1 mEq/l | [facility] | | | | | | [facility] | | | | | | MEDICAL | | | | | | CENTER - | | | | | | LABORATORY | | + + + + + + | Cl | 98 | 98 - 109 mEq/l | [facility] | | | | | | [facility] | | | | | | MEDICAL | | | | | | CENTER - | | | | | | LABORATORY | | + + + + + + | CO2 | 29 (A) | 24 - 31 mEq/L | [facility] | | | | | | [facility] | | | | | | MEDICAL | | | | | | CENTER - | | | | | | LABORATORY | | + + + + + + | Anion Gap | 15.1 | 6.0 - 17.0 | [facility] | [address] | [place] | [phone] | | [facility] | | [address] | | | - LABORATORY | | | | + + + + + | [facility] | [address] | [place] | | | [facility] | | [address] | | | - LABORATORY | | | | + + + + + POC Glucose (12/06/2013 5:29 PM PST) + +---------+ + + + [...] + | [facility] | [address] | [place] | [phone] | | [facility] | | [address] | | | - LABORATORY | | | | + + + + + | [facility] | [address] | [place], [place] | | | [facility] | | [address] | | | - LABORATORY | | | | + + + + + Renal Function Panel (12/06/2013 1:03 PM PST) + + + + + + | Component | Value | Ref Range | Performed | Pathologist | | | | | At | Signature | + + + + + + | Glucose | 250 (H) | 70 - 109 mg/dL | [facility] | | | | | | [facility] | | | | | | MEDICAL | | | | | | CENTER - | | | | | | LABORATORY | | + + + + + + | Calcium | 8.8 | 8.3 - 10.5 | [facility] | | | | | mg/dL | [facility] | | | | | | MEDICAL | | | | | | CENTER - | | | | | | LABORATORY | | + + + + + + | Phosphorus | 6.1 (H) | 2.5 - 4.6 mg/dL | [facility] | | | | | | [facility] | | | | | | [facility]ICAL | | | | | | CENTER - | | | | | | LABORATORY | | + + + + + + | Albumin | 3.7 | 3.2 - 5.0 gm/dL | [facility] | | | | | | [facility] | | | | | | MEDICAL | | | | | | CENTER - | | | | | | LABORATORY | | + + + + + + | BUN | 159 (HH)Comment: @VALUE | 7 - 18 mg/dL | [facility] | | | | [facility] WITH PREVIOUS | | [facility] | | | | RESULTS | | MEDICAL | | | | | | CENTER - | | | | | | LABORATORY | | + + + + + + | Creatinine | 7.26 (H) | 0.60 - 1.30 | [facility] | | | | | mg/dL | [facility] | | | | | | MEDICAL | | | | | | CENTER - | | | | | | LABORATORY | | + + + + + + | Estimated | 7 (L)Comment: For | >60 mL/min/A | [facility] [...] + + + + | BUN/Creatin | 21.9 (H) | 12 - 20 | [facility] | | | ine Ratio | | | [facility] | | | | | | MEDICAL | | | | | | CENTER - | | | | | | LABORATORY | | + + + + + + | Na | 131 (L) | 136 - 149 mEq/L | [facility] | | | | | | [facility] | | | | | | MEDICAL | | | | | | CENTER - | | | | | | LABORATORY | | + + + + + + | K | 4.3 (A) | 3.5 - 5.1 mEq/l | [facility] | | | | | | [facility] | | | | | | MEDICAL | | | | | | CENTER - | | | | | | LABORATORY | | + + + + + + | Cl | 94 (L) | 98 - 109 mEq/l | [facility] | | | | | | [facility] | | | | | | MEDICAL | | | | | [facility] - | | | | | | LABORATORY | | + + + + + + | CO2 | 21 (L) | 24 - 31 mEq/L | [facility] | | | | | | [facility] | | | | | | [facility] - | | | | | | LABORATORY | | + + + + + + | Anion Gap | 20.3 (H) | 6.0 - 17.0 | [facility] [...] + | [facility] | [address] | [place] | [phone] | | [facility] | | [address] | | | - LABORATORY | | | | + + + + + | [facility] | [address] | [place], [place] | | | [facility] | | [id number] | | | - LABORATORY | | | | + + + + + POC Glucose (12/06/2013 11:47 AM PST) + +---------+ + + + | Component | Value | Ref Range | Performed | Pathologist | | | | | At | Signature | + +---------+ + + + | Glucose, | 266 (H) | 79 - 150 md/dL | [...] + | [facility] | [address] | [place], [place] | [phone] | | [facility] | | [address] | | | - LABORATORY | | | | + + + + + | [facility] | [address] | [place], [place] | | | [facility] | | [address] | | | - LABORATORY | | | | + + + + + POC Glucose (12/06/2013 7:10 AM PST) + +---------+ + + + | Component | Value | Ref Range | Performed | Pathologist | | | | | At | Signature | + +---------+ + + + | Glucose, | 234 (H) | 79 - 150 md/dL | [...] [address] | [place] | [phone] | | [facility] | | [address] | | | - LABORATORY | | | | + + + + + | [facility] | [address] | [place] | | | [facility] | | [id number] | | | - LABORATORY | | | | + + + + + CBC with Differential (12/06/2013 4:18 AM PST) + + + + + [...] + + + + | WBC | 5.5 | 4.0 - 11.0 K/uL | [facility] | | | | | | [facility] | | | | | | [facility] - | | | | | | LABORATORY | | + + + + + + | RBC | 3.36 (L) | 4.30 - 5.70 | [facility] | | | | | M/uL | [facility] | | | | | | [facility] | | | | | | CENTER - | | | | | | LABORATORY | | + + + + + + | Hemoglobin | 10.6 (L) | 13.5 - 18.0 | [facility] | | | | | gm/dL | [facility] | | | | | | MEDICAL | | | | | | CENTER - | | | | | | LABORATORY | | + + + + + + | Hematocrit | 31.6 (L) | 40.0 - 51.0 % | [...] + + + + | MCH | 31.4 | 28.0 - 35.0 pg | [facility] | | | | [facility] | | | | [facility] | [facility] | | | | | | CENTER - | | | | | | LABORATORY | | + + + + + + | MCHC | 33.4 | 32.0 - 36.0 | [facility] | [...] + + + + | Platelet | 181 | 140 - 440 K/uL | [facility] | | | Count | | | [facility] | | | | | | [facility] | | | | | | CENTER - | | | | | | LABORATORY | | + + + + + + | % | 94.0 (H) | 45 - 75 % | [facility] | | | Neutrophils | | | [facility] | | | | | | [facility] | | | | | | CENTER - | | | | | | LABORATORY | | + + + + + + | % | 5.1 (L) | 20 - 45 % | [facility] | | | Lymphocytes | | | [facility] | | | | | | [facility] | | | | | | CENTER - | | | | | | LABORATORY | | + + + + + + | % Monocytes | 0.8 (L) | 4 - 12 % | [facility] | | | | | [facility] | | | | | | [facility] | | | | | | CENTER - | | | | | | LABORATORY | | + + + + + + | % | 0.0 | 0 - 5 % | [facility] | | | Eosinophils | | | [facility] | | | | | | [facility]ICAL | | | | | | CENTER - | | | | | | LABORATORY | | + + + + + + | % Basophils | 0.1 | 0 - 1 % | [facility] | | | | | | [facility] | | | | | | [facility] | | | | | | CENTER - | | | | | | LABORATORY | | + + + + + + | Absolute | 5.2 | 1.5 - 6.6 K/uL | [facility] | | | Neutrophils | | | [facility] | | | | | | [facility] | | | | | | CENTER - | | | | | | LABORATORY | | + + + + + + | Absolute | 0.3 (L) | 0.6 - 3.2 K/uL | [facility] | | | Lymphocytes | | | [facility] | | | | | | [facility] | | | | | | CENTER - | | | | | | LABORATORY | | + + + + + + | Absolute | 0.0 | 0.0 - 1.0 K/uL | [facility] [...] + | [facility] | [address] | [place] | [phone] | | [facility] | | [address] | | | - LABORATORY | | | | + + + + + | [facility] | [address] | [place] | | | [facility] | | [address] | | | - LABORATORY | | | | + + + + + Renal Function Panel (12/06/2013 4:18 AM PST) + + + + + + | Component | Value | Ref Range | Performed | Pathologist | | | | | At | Signature | + + + + + + | Glucose | 247 (H) | 70 - 109 mg/dL | [facility] | | [facility] | | | | | | [facility] | | | | | | CENTER - | | | | | | LABORATORY | | + + + + + + | Calcium | 8.6 | 8.3 - 10.5 | [facility] | | | | | mg/dL | [facility] | | | | | | MED[facility] | | | | | | CENTER - | | | | | | LABORATORY | | + + + + + + | Phosphorus | 7.8 (H) | 2.5 - 4.6 mg/dL | [facility] | | | | | [facility] | | | | | | [facility] | | | | | | CENTER - | | | | | | LABORATORY | | + + + + + + | Albumin | 3.5 | 3.2 - 5.0 gm/dL | [facility] | | | | | [facility] | | [facility] | | | [facility]ICAL | | | | | | CENTER - | | | | | | LABORATORY | | + + + + + + | BUN | 158 ()Comment: @VALUE | 7 - 18 mg/dL | [facility] | | | | CONSISTENT WITH PREVIOUS | | [facility] | | | | RESULTS | | MEDICAL | | | | | | CENTER - | | | | | | LABORATORY | | + + + + + + | Creatinine | 8.31 ()Comment: @VALUE | 0.60 - 1.30 | [facility] | | | | CONSISTENT WITH | mg/dL | [facility] | | | | PREVIOUS RESULTS | | MEDICAL | | | | | | CENTER - | | | | | | LABORATORY | | + + + + + + | Estimated | 6 (L)Comment: For | >60 mL/min/A | [facility] [...] + + + + | BUN/Creatin | 19.0 | 12 - 20 | [facility] | | | ine Ratio | | | [facility] | | | | | | MEDICAL | | | | | | CENTER - | | | | | | LABORATORY | | + + + + + + | Na | 136 | 136 - 149 mEq/L | [facility] | | | | | | [facility] | | | | | | [facility] | | | | | | CENTER - | | | | | | LABORATORY | | + + + + + + | K | 5.6 (H) | 3.5 - 5.1 mEq/l | [facility] | [facility] | | | | | | [facility] | | | | | | CENTER - | | | | | | LABORATORY | | + + + + + + | Cl | 99 | 98 - 109 mEq/l | [facility] [...] + + + | Anion Gap | 25.6 (H) | 6.0 - 17.0 | [facility] [...] + | [facility] | [address] | [place] | [phone] | | [facility] | | [address] | | | - LABORATORY | | | | + + + + + | [facility] | [address] | [place], [place] | | | [facility] | | [address] | | | - LABORATORY | | | | + + + + + Culture, MRSA (12/05/2013 7:23 PM PST) + + | Specimen | + + | | + + + + + + + | Performing | Address | City/State/Zipcode | Phone Number | | Organization | | | | + + + + + | [facility] | [address] | [place] | [phone] | | [facility] | | [address] | | | - LABORATORY | | | | + + + + + Renal Function Panel (12/05/2013 7:23 PM PST) + + + + + + | Component | Value | Ref Range | Performed | Pathologist | | | | | At | Signature | + + + + + + | Glucose | 154 (H) | 70 - 109 mg/dL | [facility] | | | | | [facility] | | | | | | MEDICAL | | | | | | CENTER - | | | | | | LABORATORY | | + + + + + + | Calcium | 8.7 | 8.3 - 10.5 | [facility] | | | | | mg/dL | [facility] | | | | | | MEDICAL | | | | | | CENTER - | | | | | | LABORATORY | | + + + + + + | Phosphorus | 8.3 (HH)Comment: | 2.5 - 4.6 mg/dL | [facility] | | | | | | [facility] | | | | ALERT VALUE | | MEDICAL | | | | DO NOT DISCARD WRITTEN | | CENTER - | | | | DOCUMENTATION. PLACE IN | | LABORATORY | | | | NURSING NOTES Nursing | | | | | | documentation will NOT | | | | | | be included on Summary | | | | | | Report @TELEPHONE | | | | | | NOTIFICATION? YES | | | | | | 12/05/13 @1944 by [facility]ING | | | | | | Clinical [...] + + + + | Albumin | 3.9 | 3.2 - 5.0 gm/dL | [facility] | [facility] | | | | | | CENTER - | | | | | | LABORATORY | | + + + + + + | BUN | 157 (HH)Comment: | 7 - 18 mg/dL | [facility] | | | | | [facility] | | | | ALERT VALUE | | MEDICAL | | | | DO NOT DISCARD WRITTEN | | CENTER - | | | | DOCUMENTATION. PLACE IN | | LABORATORY | | | | NURSING NOTES Nursing | | | | | | documentation will NOT | | | | | | be included on Summary | | | | | | Report @TELEPHONE | | | | | | NOTIFICATION? YES | | | | | | 12/05/13 @1944 by [facility] | | | | | | Clinical [...] + + + + | Creatinine | 8.50 ()Comment: | 0.60 - 1.30 | [facility] | | | | | mg/dL | [facility] | | | | ALERT VALUE | | MEDICAL | | | | DO NOT DISCARD WRITTEN | | CENTER - | | | | DOCUMENTATION. PLACE IN | | LABORATORY | | | | NURSING NOTES Nursing | | | | | | documentation will NOT | | | | | | be included on Summary | | | | | | Report @TELEPHONE | | | | | | NOTIFICATION? YES | | | | | | 12/05/13 @1944 by [facility] | | | | | | Clinical [...] + + + + | Estimated | 6 (L)Comment: For | >60 mL/min/A | [facility] [...] + + + + | BUN/Creatin | 18.5 | 12 - 20 | [facility] | | | ine Ratio | | | [facility] | | | | | | MEDICAL | | | | | | CENTER - | | | | | | LABORATORY | | + + + + + + | Na | 136 | 136 - 149 mEq/L | [facility] | | | | | | [facility] | | | | | | MEDICAL | | | | | | CENTER - | | | | | | LABORATORY | | + + + + + + | K | 5.9 (H) | 3.5 - 5.1 mEq/l | [facility] | | | | | | [facility] | | | | | | MEDICAL | | | | | | CENTER - | | | | | | LABORATORY | | + + + + + + | Cl | 102 | 98 - 109 mEq/l | [facility] | | | | | [facility] | | | | | | MEDICAL | | | | | | CENTER - | | | | | | LABORATORY | | + + + + + + | CO2 | 15 (L) | 24 - 31 mEq/L | [facility] | | | | | [facility] | | | | | | MEDICAL | | | | | | CENTER - | | | | | | LABORATORY | | + + + + + + | Anion Gap | 24.9 (H) | 6.0 - 17.0 | [facility] [...] + | [facility] | [address] | [place] | [phone] | | [facility] | | [address] | | | - LABORATORY | | | | + + + + + | [facility] | [address] | [place], [place] | | | [facility] | | [address] | | | - LABORATORY | | | | + + + + + CK Total (12/05/2013 7:23 PM PST) + +-------+ + + + | Component | Value | Ref Range | Performed | Pathologist | | | | | At | Signature | + +-------+ + + + | CK TOTAL | 42 | 22 - 269 IU/L | [facility] [...] [address] | [place] | [phone] | | [facility] | | [address] | | | - LABORATORY | | | | + + + + + | [facility] | [address] | [place] | | | [facility] | | [address] | | | - LABORATORY | | | | + + + + + Uric Acid (12/05/2013 7:23 PM PST) + +-------+ + + + | Component | Value | Ref Range | Performed | Pathologist | | | | | At | Signature | + +-------+ + + + | Uric Acid | 5.5 | 2.6 - 7.2 mg/dL | [facility] | | | | | [...] + | [facility] | [address] | [place], [place] | [phone] | | [facility] | | [address] | | | - LABORATORY | | | | + + + + + | [facility] | [address] | [place], [place] | | | [facility] | | [address] | | | - LABORATORY | | | | + + + + + documented in this encounter Visit Diagnoses Not on filedocumented in this encounter"
--- OUTSIDE RECORDS SUMMARY | ~2019-10-22 | XMS | Encounter Summary ---
Demographics + + + | Address | [address] | | | [place] [address] | + + + | Home Phone [...] [place] | | | | | [address] | | + + + + + | Atif Delgadillo | ECON | [place], [place] | | | | | [address] | | + + + + + | Caleb Dawn | ECON | Unknown | | + + + + + Care Team Providers + +------+ + | Care Bleach Boiler Puller Name | Role | Phone | + [...] | kidney | MD [address] | | | | | disease, | [place] | [place], [place] | | | | | stage 3 | [place] [address] | [address] | | | | | (moderate) | [place], | [place] | | | | | (HCC) | [place] | [address] Phone: | | | | | Hypertension | [address] | [phone] | | | | | , essential | Phone: | Fax: | | | | | Type 2 | [phone] | [phone] | | | | | diabetes | Fax: | | | | | | mellitus | [phone] | | | | | | with stage 3 | | | | | | | chronic | | | | | | | kidney | | | | | | | disease | | | | | | | (HCC) | | | | | | | Procedures | | | | | | | [facility] | | | | | | [...] NEPHROLOGY [address] | M, DO [address] | mellitus with stage | | | | [address] | [place], [place] [address] | 3 chronic kidney | | | | [place], [place] | [place] | disease, without | | | | [address] | [address] | long-term current | | | | [phone] | | use of insulin (HCC) | [...] (ELOCON) 0.1 % cream Apply topically Daily. [place]-3 Fatty Acids (FISH OIL) 1200 MG CAPS [...] PHOSEX 3.7 06/29/2017 PTHEX 158.2 (A) 06/29/2017 XXQ7PVK 5.9 06/29/2017 Lab Results Component Value Date [...] to th at. : Hema Gregory MD, [place] , [place] documented in th is encounter Plan of Treatment +--------+ + + + + | Date | Type | Specialty | Care Team | Description | +--------+ + + + + | 03/16/ | Off-Site | Nephrology | Freddy Sanchez | | | 2019 | Visit | | DO [address] | | | | | | [place] [address] | | | | | | [place] | | | | | | [address] | | | | | | | | +--------+ + + + + | 05/20/ | Office | Cardiology | Yumiko Del Valle, | | | 2019 | Visit | | MD [address] | | | | | | [facility] [place] | | | | | | [address] | | | | | | | [...]
--- OUTSIDE RECORDS SUMMARY | ~2019-10-22 | XMS | Clinical Summary ---
Demographics + + + | Address | [address] | | | [place] [address] | + + + | Home Phone | | + + + | Preferred Language | Unknown | + + + | Marital Status | Single | + + + | Christianity Affiliation | Unknown | + + + | Race | Unknown | + + + | Ethnic Group | Unknown | + + + Author + + + | Author | [facility] | | | and [place] | + + + | Organization | [facility] | [...] [place] | | | | | [address] | | + + + + + | Atif Delgadillo | ECON | [place] | | | | | [address] | | + + + + + | Caleb Dawn | ECON | Unknown | | + + + + + Care Team Providers + +------+ + | Care Supervisor Wheel Shop Name | Role | Phone | + [...] e | + + + +---------+------+------+-------+ | furosemide (LASIX) | TAKE ONE TABLET BY | 60 | 6 | 01/3 | | Activ | | 40 mg tablet | MOUTH TWICE A DAY | tablet | | 0/20 | | e | | | | [...] | | | | | | (moderate) ([facility]), | | | | | | | | Type 2 diabetes | | | | | | | | mellitus with stage | | | | | | | | 3 chronic kidney | | | | | | | | disease ([facility]), | | | | | | | | Hypertension, | | | | | | | | essential, Secondary | | | | | | | | hyperparathyroidism | | | | | | | | of renal origin | | | | | | | | ([facility]) | | | | | | | [...] | | | | | | (moderate) ([facility]), | | | | | | [...] | | + + + +---------+------+------+-------+ | [place]-3 Fatty | Take 1,200 mg by | [...] | | | | | | (moderate) ([facility]), | | | | | | [...] | 60 | 6 | 04/20 | | Activ | | 25 mg tablet | mouth 2 times daily | tablet | | 06/08 | | e | | | (with breakfast & | | | 19 | | | | | dinner). | | | | | | + + + +---------+------+------+-------+ | cyanocobalamin | Take 2,500 mcg by | | 0 | | | Activ | | (VITAMIN B-12) 1000 | mouth Daily. | | | | [...] | | + + + +---------+------+------+-------+ | melatonin 5 mg | Take 3 mg by mouth. | | 0 | | | Activ | | tablet | At bedtime as needed | | | | | e | + + + +---------+------+------+-------+ | carvedilol (COREG) | Take 1 tablet by | | 0 | 06/2 | | Activ | | 6.25 mg tablet | mouth 2 times daily. | | | 620 | | e | | | With meals | | | 19 | | | + + + +---------+------+------+-------+ | losartan (COZAAR) | Take 25 mg by mouth | | 0 | 10/2 | | Activ | | 25 mg tablet | Daily. | | | 06/08 | | e | | | | | | 18 | | | + + + +---------+------+------+-------+ | nateglinide | | | 0 | 02/0 | | Activ | | (STARLIX) 60 MG | | | | 20 | | e | | tablet | | | | 19 | | | [...] | | + + + +---------+------+------+-------+ | Linagliptin | Take 5 mg by mouth | | 0 | | 11/0 | Disco | | (TRADJENTA) 5 MG | Daily. | | | | 420 | ntinu | | TABSIndications: | | | | | 19 | ed | | Unspecified | | | | | | (Ther | | hypertensive kidney | | | | | | apy | | disease with chronic | | | | | | compl | | kidney disease | | | | | | eted) | | stage I through | | [...] tablet by | 90 | 4 | 11/20 | | Disco | | 25 mg | mouth Daily. | tablet | | 01/09 | 03/09 | ntinu | | tabletIndications: | | | | 15 | 19 | ed | | Unspecified | | | | | | (Ther | | hypertensive kidney | | | | | | apy | | disease with chronic | | | | | | compl | | kidney disease | | | | | | eted) | | stage I through | | [...] | | + + + +---------+------+------+-------+ | acetaminophen | Take 500 mg by mouth | | 0 | | | Disco | | (TYLENOL) 500 mg | as needed. | | | | 03/09 | ntinu | | tablet | | | | | 19 | ed | | | | | | | | (Ther | | | | | | | | apy | | | | | | | | compl | | | | | | | | eted) | + + + +---------+------+------+-------+ | Aspirin-Calcium | Take 81 mg by mouth | | 0 | | 11/0 | Disco | | Carbonate (YARIEL | Daily. | | | | 20 | ntinu | | WOMENS) 81-777 MG | | | | | 19 | ed | | TABS | | | | | | (Ther | | | | | | | | apy | | | | | | | | compl | | | | | | | | eted) | + + + +---------+------+------+-------+ | calcitRIOL | Take 0.5 mcg by | | 0 | 11/1 | 11/0 | Disco | | (ROCALTROL) 0.5 MCG | mouth Daily. | | | 06/08 | 4/20 | ntinu | | capsule | | | | 18 | 19 | ed | | | | | | | | (Ther | | | | | | | | apy | | | | | | | | compl | | | | | | | | eted) | + + + +---------+------+------+-------+ | cholecalciferol | Take 5,000 Units by | | 0 | | 11/0 | Disco | | (CHOLECALCIFEROL) | mouth Daily. | | | | 4/20 | ntinu | | 5000 units TABS | | | | | 19 | ed | | | | | | | | (Ther | | | | | | | | apy | | | | | | | | compl | | | | | | | | eted) | + + + +---------+------+------+-------+ | cinacalcet | Take 30 mg by mouth. | | 0 | | 11/0 | Disco | | (SENSIPAR) 30 mg | See Admin | | | | 4/20 | ntinu | | tablet | Instructions | | | | 19 | ed | | | | | | | | (Ther | | | | | | | | apy | | | | | | | | compl | | | | | | | | eted) | + + + +---------+------+------+-------+ | doxycycline | | | 0 | 09/0 | 11/0 | Disco | | (MONODOX) 100 mg | | | | 6/20 | 4/20 | ntinu | | capsule | | | | 18 | 19 | ed | | | | | | | | (Ther | | | | | | | | apy | | | | | | | | compl | | | | | | | | eted) | + + + +---------+------+------+-------+ | fenofibrate | | | 0 | 06/0 | 11/0 | Disco | | (TRICOR) 48 mg | | | | 5/20 | 4/20 | ntinu | | tablet | | | | 19 | 19 | ed | | | | | | | | (Ther | | | | | | | | apy | | | | | | | | compl | | | | | | | | eted) | + + + +---------+------+------+-------+ | glimepiride | | | 0 | 05/0 | 11/0 | Disco | | (AMARYL) 1 mg tablet | | | | 8/20 | 4/20 | ntinu | | | | | | 19 | 19 | ed | | | | | | | | (Ther | | | | | | | | apy | | | | | | | | compl | | | | | | | | eted) | + + + +---------+------+------+-------+ | aspirin 81 MG | Take 81 mg by mouth | | 0 | | 11/0 | Disco | | tablet | Daily. | | | | 4/20 | ntinu | | | | | | | 19 | ed | | | | | | | | (Ther | | | | | | | | apy | | | | | | | | compl | | | | | | | | eted) | + + + +---------+------+------+-------+ | carvedilol (COREG) | Take 6.25 mg by | | 0 | 12/0 | 11/0 | Disco | | 25 mg tablet | mouth 2 times daily. | | | 20 | 4/20 | ntinu | | | | | | 18 | 19 | ed | | | | | | | | (Ther | | | | | | | | apy | | | | | | | | compl | | | | | | | | eted) | + + + +---------+------+------+-------+ | carvedilol (COREG) | | | 0 | 05/2 | 11/0 | Disco | | 6.25 mg tablet | | | | 01/09 | /20 | ntinu | | | | | | 19 | 19 | ed | | | | | | | | (Ther | | | | | | | | apy | | | | | | | | compl | | | | | | | | eted) | + + + +---------+------+------+-------+ | furosemide (LASIX) | Take 40 mg by mouth | | 0 | 11/1 | 11/0 | Disco | | 40 mg tablet | 2 times daily. | | | 20 | /20 | ntinu | | | | | | 18 | 19 | ed | | | | | | | | (Ther | | | | | | | | apy | | | | | | | | compl | | | | | | | | eted) | + + + +---------+------+------+-------+ | liraglutide | 1.8 mg Daily. Inject | | 0 | | 11/0 | Disco | | (VICTOZA) 18 mg/3 mL | into the skin | | | | 20 | ntinu | | injection | | | | | 19 | ed | | | | | | | | (Ther | | | | | | | | apy | | | | | | | | compl | | | | | | | | eted) | + + + +---------+------+------+-------+ | mometasone | Apply 1 Application | | 0 | | 11/0 | Disco | | (ELOCON) 0.1 % cream | topically as needed. | | | | 4/20 | ntinu | | | | | | | 19 | ed | | | | | | | | (Ther | | | | | | | | apy | | | | | | | | compl | | | | | | | | eted) | + + + +---------+------+------+-------+ | omega-3 acid ethyl | Take 1,000 mg by | | 0 | | 11/0 | Disco | | esters (LOVAZA) 1 g | mouth Daily. | | | | 4/20 | ntinu | | capsule | | | | | 19 | ed | | | | | | | | (Ther | | | | | | | | apy | | | | | | | | compl | | | | | | | | eted) | + + + +---------+------+------+-------+ | Liraglutide | 1.2 mg Daily. Inject | | 0 | | 11/0 | Disco | | (VICTOZA SC) | into the skin. | | | | 4/20 | ntinu | | | Victoza 3-PK | | | | 19 | ed | | | | | | | | (Ther | | | | | | | | apy | | | | | | | | compl | | | | | | | | eted) | + + + +---------+------+------+-------+ Active Problems [...] + + | 09/26/ | Abstract | Nephrology | Freddy Sanchez | | | 2019 | | | M, DO | | +--------+ + + + + | 09/23/ | Off-Site | Nephrology | Freddy Sanchez | Chronic kidney | | 2019 | Visit | | M, DO | disease, stage III | | | | | | (moderate) ([facility]) | | | | | | (Primary Dx); Type 2 | | | | | | diabetes mellitus | | | | | | with stage 3 chronic | | | | | | kidney disease, | | | | | | unspecified whether | | | | | | continuous churn buttermaker insulin | | | | | | use ([facility]); | | | | | | Hyperparathyroidism | | | | | | due to renal | | | | | | insufficiency ([facility]); | | | | | | Essential | | | | | | hypertension with | | | | | | goal blood pressure | | | | | | less than 130/80 | +--------+ + + + + | 09/19/ | Abstract | Nephrology | Freddy Sanchez | | | 2018 | | | M, DO | | +--------+ + + + + | 08/21/ | Orders Only | Nephrology | Freddy Sanchez | Chronic kidney | | 2018 | | | M, DO | disease, stage III | | | | | | (moderate) (HCC) | | | | | | (Primary Dx); Type 2 | | | | | | diabetes mellitus | | | | | | with stage 3 chronic | | | | | | kidney disease, | | | | | | unspecified whether | | | | | | intermediate insulin | | | | | | use (HCC) | +--------+ + + + + from [...] + | Heart disease | Mother | Miami B. | Had Triple heart bipass. | | | | | | | | | [place] | | + + + + + | Heart failure | Mother | Yulisa B. | | [...] + + + + | Mother | Yulisa B. | | Triple CABG | | | [place] | (Age | | | | | 86) | | + + + + + | Mother | [place] B. | | | | | [place] [...] + + + | Blood Pressure | 170/88 | 09/23/2019 3:20 PM | | | | | PST | | + + + + + | Pulse | 78 | 05/15/2019 10:51 AM | | | | | PDT | | + + + + + | Temperature | 36 C (96.8 F) | 09/23/2019 3:20 PM | | | | | PST [...] + + + + | Weight | 133.8 kg (295 lb) | 09/23/2019 3:20 PM | | | | | PST | | + + + + + | Height | 190.5 cm (6' 3") | 05/15/2019 10:51 AM | | | | | PDT | | + + + + + | Body Mass Index | 36.87 | 05/15/2019 10:51 AM | | | | | PDT | | + + + + + Plan of Treatment +--------+ + + + + | Date | Type | Specialty | Care Team | Description | +--------+ + + + + | 03/16/ | Off-Site | Nephrology | Freddy Sanchez | | | 2019 | Visit | | DO [address] [place] [address] | | | | | | [place] | | | | | | [place] | | | | | | [address] | | | | | | | | +--------+ + + + + | 05/20/ | Office | Cardiology | Yumiko Del Valle, | | | 2019 | Visit | | MD [address] | | | | | | [place] | | | | | | [phone] | | | | | | | [...] + + + | Vaccine: Influenza | | 11/22/2018, 08/30/2017, | | | (#1) | 9 | 08/30/2017, Additional history | | | | | exists | | + + + + + | Hemoglobin A1c | | 07/26/2019, 05/02/2019, | | | Screening | 0 | 12/28/2018, Additional history | | | | | exists | | + + + + + Procedures + +--------+ + + + | Procedure Name | Priori | Date/Time | Associated Diagnosis | Comments | | | ty | | | | + +--------+ + + + | LABS - EXTERNAL SCAN | | 09/18/2019 | | Results for this [...] | EXTERNAL LAB: PTH, | Routin | 09/18/2019 | | Results [...] | LABS - EXTERNAL SCAN | | 07/26/2019 | | Results for this [...] Last 3 Months Results External Lab: BUN (09/18/2019) + +-------+ + [...] + + + External Lab: PTH, Intact (09/18/2019) [...] + | | + + External Lab: Protein/Creatinine Ratio (09/18/2019) + + [...] | | + + External Lab: CBC (09/18/2019) + [...] | + + LABS - EXTERNAL SCAN (09/18/2019 12:00 AM PDT)Only the most recent of 2 results within the time period is included. + + + | Narrative | Performed At | + + + | Ordered by an | | | unspecified provider. | | + + + Hemoglobin A1C (07/26/2019) + +-------+ + + [...] +---------+--------+ | [employer] | [facility] | [id number] | 11/20/19 | [phone] | | PPO | | PLN | NDLERS | | 18-Pre | 8 | | | | | [employer] | | sent | | | | | | PPO | | | | | | + +--------+ +--------+ +---------+--------+ | MEDICARE | MEDICA | [id number] | 02/19/20 | [phone] | | Medica [...] Self | [birth year] | [phone] | | [place] | al/Fam | | 1945 | [phone] | [place] | | [place] | | | [place] ([place]) | [phone] | + +--------+ +--------+ + + | SERGEI TANNER | Person | Self | | | | | [place] | al/Fam | | | | | | | la | | | | | + +--------+ +--------+ + + Advance Directives + + + + + | Type | Date Recorded | Patient | Explanation | | | | 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
--- OUTSIDE RECORDS SUMMARY | ~2019-10-22 | XMS | Encounter Summary ---
Demographics + + + | Address | [address] | | | [place] [address] | + + + | Home Phone [...] [place] | | | | | [address] | | + + + + + | Atif Delgadillo | ECON | [place] | | | | | [address] | | + + + + + | Caleb Dawn | ECON | Unknown | | + + + + + Care Team Providers + +------+ + | Care Wax Ball Molder Name | Role | Phone | [...] | kidney | MD [address] | | | | | disease, | [place] | [place], [place] | | | | | stage 3 | [place] [address] | [address] | | | | | (moderate) | [place] | [place] | | | | | (HCC) | [place] | [address] Phone: | | | | | Hypertension | [address] | [phone] | | | | | , essential | Phone: | Fax: | | | | | Type 2 | [phone] | [phone] | | | | | diabetes | Fax: | | | | | | mellitus | [phone] | | | | | | with [...] | 06/25/ | Off-Site | [facility] [place] | Freddy Sanchez | Type 2 diabetes | | 2018 | Visit | NEPHROLOGY [address] | M, DO [address] | mellitus with stage | | | | [address] | [place], [place] [address] | 3 chronic kidney | | | | [place], [place] | [place], [place] | disease, without | | | | [address] | [address] | long-term current | | | | [phone] | | use of insulin (HCC) | [...] (ELOCON) 0.1 % cream Apply topically Daily. Meyers Chuck-3 Fatty Acids (FISH OIL) 1200 MG CAPS [...] PHOSEX 4.2 06/20/2018 PTHEX 157.7 (A) 06/20/2018 TIY1SQN 5.7 06/20/2018 Lab Results Component Value Date [...] Anoop Moyer MD, PhD Winsome Crowder MD, [place], [place] Matheus Gregory MD, [place] , [place] documented in th is encounter Plan of Treatment +--------+ + + + + | Date | Type | Specialty | Care Team | Description | +--------+ + + + + | 03/16/ | Off-Site | Nephrology | Freddy Sanchez | | 2019 | Visit | | DO [address] | | | | | | [place] [address] | | | | | | [place] | | | | | | [phone] | | | | | | | | +--------+ + + + + | 05/20/ | Office | Cardiology | Yumiko Del Valle, | | 2019 | Visit | | MD Lupe TYLER | | | | | | [place] | | | | | | [address] | | | | | | | [...]
--- OUTSIDE RECORDS SUMMARY | ~2019-10-22 | XMS | Encounter Summary ---
Demographics + + + | Address | [address] | | | [place] [address] | + + + | Home Phone [...] [place] | | | | | [address] | | + + + + + | Atif Delgadillo | ECON | [place], [place] | | | | | [address] | | + + + + + | Caleb Dawn | ECON | Unknown | | + + + + + Care Team Providers + +------+ + | Care Entertainer Or Variety Artist Name | Role | Phone | + +------+ + PCP | Unavailable | + +------+ + Reason for Visit + + + | Reason | Comments | + + + | Knee Pain | Requesting pain medication | + + + Encounter Details +--------+ + + + + | Date | Type | Department | Care Team | Description | +--------+ + + + + | 12/20/ | Telephone | [facility] | Freddy Sanchez | Knee Pain | | 2013 | | NEPHROLOGY [address] | M, DO [address] | (Requesting pain | | | | [address] | [place], [place] [address] | medication) | | | | [place] | [place] | | | | | [address] | [phone] | | | | | [phone] | | | +--------+ + + + [...] 2019 | Visit | | DO Olayinka [address] [place] [address] | | | | | | [place] | | | | | | [place] | | | | | | [address] | | | | | | | | +--------+ + + + + | 05/20/ | Office | Cardiology | Yumiko Del Valle, | | | 2019 | Visit | | MD Lupe TYLER | | | | | | [place] | | | | | | [phone] | | | | | | | | +--------+ + + + + documented as of this encounter Visit Diagnoses Not on filedocumented in this encounter"
--- OUTSIDE RECORDS SUMMARY | ~2019-10-22 | XMS | Encounter Summary ---
Demographics + + + | Address | [address] | | | [place] [address] | + + + | Home Phone | | + + + | Preferred Language | Unknown | + + + | Marital Status | Single | + + + | Rastafarian Affiliation | Unknown | + + + | Race | Unknown | + + + | Ethnic Group | Unknown | + + + Author + + + | Author | [facility] | | | and [place] | + + + | Organization | [facility] | [...] [place] | | | | | [address] | | + + + + + | Atif Delgadillo | ECON | [place], [place] | | | | | [address] | | + + + + + | Caleb Dawn | ECON | Unknown | | + + + + + Care Team Providers + +------+ + | Care Patternmaker Bench Name | Role | Phone | + +------+ + PCP | Unavailable | + +------+ + Encounter Details +--------+ + + + + | Date | Type | Department | Care Team | Description | +--------+ + + + + | 02/17/ | Off-Site | [facility] [place] | Freddy Sanchez | Type II or | | 2013 | Visit | NEPHROLOGY [address] | M, DO [address] [place] | unspecified type | | | | [address] [facility] | [place], [facility] 100 | diabetes mellitus | | | | [place], [place] | [place], [place] | with renal | | | | [address] | [address] | manifestations, not | | | | [phone] | | stated as | | | [...] | | | | | | stage II (mild); | | | | | | Other and | | | | | | unspecified | | | | | | hyperlipidemia | +--------+ + + + + Social [...] + + + | Blood Pressure | 148/70 | 02/17/2014 5:19 PM | | | | | PDT | | + + + + + | Pulse | - | - | | + + + + + | Temperature | 34.1 C (93.3 F) | 02/17/2014 5:19 PM | | | | | PDT [...] + + + + | Weight | 127.3 kg (280 lb | 02/17/2014 5:19 PM | | | | 10.3 oz) | PDT | | + + + + + | Height | - | - | | + + + + + | Body Mass Index | 35.08 | 01/23/2014 11:17 AM | | | | | PST | | + + + + + documented in this encounter Progress Notes Freddy Sanchez DO - 02/17/2014 5:28 PM PDT Subjective: NEPHROLOGY Patient ID: SERGEI TANNER is a 68 y.o. male. 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 He also has hypertension, hyperlipidemi a, DJD of knees, SHPTH, ASCVD, s/p left CEA, 2005, anemia secondary to CKD, and Type 2 DM. He is feeling much better and states that he is walking approximately 1 mi. per day. Outpatient Prescriptions Marked as Taking for the 02/17/14 encounter (Off-Site Visit) with Olayinka Sanchez, DO [...] mouth every 6 h ours as needed. Linagliptin (TRADJENTA) 5 MG TABS Take 5 mg by mouth Daily. niacin 500 mg tablet Take 500 [...] by mouth Daily. Allergies Allergen Reactions Lisinopril Penicillins Rash Review of Systems Objective: BP 148/70 | Temp 34.1 C (93.3 F) | Wt 127.3 kg (280 lb 10.3 oz) Physical Exam Heart: Regular rate and rhythm with no S3, S4, murmur or rub. Lungs: CTA bilaterally. No rales or wheezes. Abdomen: Soft, flat, no epigastric tenderness, normoactive bowel sounds. Extremities: 1+ edema, decreased, no foot ulcers, no clubbing. Lab Results Component Value Date NA 138 02/12/2014 K 3.9 02/12/2014 CL 102 02/12/2014 CO2 30 02/12/2014 BUN 34 02/12/2014 CREEX 1.42* 02/12/2014 EGFREX 49 02/12/2014 GLU 164 02/12/2014 CALCIUM 9.5 02/12/2014 PHOS 2.8 02/12/2014 PTH 105.1 02/12/2014 SIQ4BUN 5.2 02/12/2014 Lab Results Component Value Date WBCEX 8.6 02/12/2014 HGBEX 13.1* 02/12/2014 HCTEX 38.6* 02/12/2014 PLTEX 169 02/12/2014 Lab Results Component Value Date CHOLEX 161 02/12/2014 HDLEX 30.4* 02/12/2014 LDLEX 80 02/12/2014 TRIGEX 253* 02/12/2014 last HbA1c = 5.2% Lab Results Component Value Date CRCLEARANCE 79.0* 02/12/2014 RDS25LQR 287.0 02/12/2014 Assessment: 1. CKD Stage 2, secondary to diabetic glomerulosclerosis and HTN--GFR has greatly improved in last 60 days. 2. Anemia secondary to bleeding + CKD--Hb is greatly improved. 3. 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 4. SHPTH--home BP log shows some readings 150/90 mmHg. 6. Type 2 DM-- excellent control. 7. ASCVD/ s/p left CEA, 2005--stable. 8. Hyperlipidemia--stable on Niacin. 9. Gout--in remission. Plan: 1. In light of his BP and CKD, will start lisinopril 2.5 mg, QD. 2. I discussed with him that his GFR appears improved over time. 3. I discussed with him that the EPO could be held until the Hb is < 11.0 g/dl, with a goa l of 10-11 g/dl per NKF-DOQI guidelines. 4. Will plan to see him back in 2 months with a CBC, CMP, PO4, and PTH 1 week prior to apollo t. CC: Hema English MD documented in thi s encounter Plan of Treatment +--------+ + + + + | Date | Type | Specialty | Care Team | Description | +--------+ + + + + | 03/16/ | Off-Site | Nephrology | Freddy Sanchez | | | 2019 | Visit | | DO Olayinka [address] [place] [address] | | | | | | [place] [facility] | | | | | | [place] | | | | | | [phone] | | | | | | | | +--------+ + + + + | 05/20/ | Office | Cardiology | Yumiko Del Valle, | | | 2019 | Visit | | MD Lupe TYLER | | | | | | [place] | | | | | | [phone] | | | | | | | [...] I through | | stage IV, or unspecified | + + | Chronic kidney disease, stage II (mild) Chronic kidney disease, Stage II (mild) | + + | Other and unspecified hyperlipidemia | + + documented in this encounter"
--- OUTSIDE RECORDS SUMMARY | ~2019-10-22 | XMS | Encounter Summary ---
Demographics + + + | Address | [address] | | | [place] [address] | + + + | Home Phone [...] [place] | | | | | [address] | | + + + + + | Atif Delgadillo | ECON | [place], [place] | | | | | [address] | | + + + + + | Caleb Dawn | ECON | Unknown | | + + + + + Care Team Providers + +------+ + | Care Computer System Specialist Name | Role | Phone | [...] NEPHROLOGY [address] | M, DO [address] [place] | | | | | [address] | [place], [address] | | | | | [place], [place] | [place] | | | | | [address] | [address] | | | | | [phone] | | | +--------+ + + + [...] | Visit | | M, DO [address] [place] | | | | | | [place], [address] | | | | | | [place] | | | | | | [address] | | | | | | | | +--------+ + + + + | 05/20/ | Office | Cardiology | Yumiko Del Valle, | | | 2019 | Visit | | [address] | | | | | | [place], [place] | | | | | | [address] | | | | | | | [...] | EXTERNAL LAB: CBC | Routin | 11/27/2014 | | Results [...] + | [facility] | [address] [place] [address] | [place] | [phone] | | [facility] | | [address] | | | - LABORATORY | | | | + + + + + | [facility] | [address] [place] [address] | [place] | | | [facility] | | [address] | | | - LABORATORY | | [...] + +---------+ + + External Lab: FATOUMATA (11/27/2014) + +-------+ + + + | [...] | | | LAB | | | Mexican, | | | | | | External [...]
--- OUTSIDE RECORDS SUMMARY | ~2019-10-22 | XMS | Encounter Summary ---
Demographics + + + | Address | [address] | | | [place] [address] | + + + | Home Phone [...] + + + | Author | [facility] | | | and [place] | + + + | Organization | [facility] [...] [place] | | | | | [address] | | + + + + + | Atif Delgadillo | ECON | [place], [place] | | | | | [address] | | + + + + + | Caleb Dawn | ECON | Unknown | | + + + + + Care Team Providers + +------+ + | Care Mid Level Developer Name | Role | Phone | + +------+ + PCP | Unavailable | + +------+ + Encounter Details +--------+ + + + + | Date | Type | Department | Care Team | Description | +--------+ + + + + | 09/28/ | Orders Only | [facility] [place] | Freddy Sanchez | Chronic kidney | | 2017 | | NEPHROLOGY [address] | M, DO [address] [place] | disease, stage III | | | | [address] | [place], [place] [address] | (moderate) (Primary | | | | [place], [place] | [place], [place] | Dx) | | | | [address] | [address] | | | | | [phone] | | | +--------+ + + + [...] this encounter Progress Imani Springer RN - 09/28/2017 3:29 PM PSTLabs for upcoming nephrology appointment sent to: [facility] documented in this encounter Plan of Treatment +--------+ + + + + | Date | Type | Specialty | Care Team | Description | +--------+ + + + + | 03/16/ | Off-Site | Nephrology | Freddy Sanchez | | | 2019 | Visit | | DO Olay[address]a [address] [place] [address] | | | | | | [place] [address] | | | | | | [place] | | | | | | [address] | | | | | | | | +--------+ + + + + | 05/20/ | Office | Cardiology | Yumiko Del Valle, | | | 2019 | Visit | | MD Lupe TYLER | | | | | | [place] | | | | | | [address] | | | | | | | | +--------+ + + + + documented as of this encounter Visit Diagnoses + + | Diagnosis | + + | Chronic kidney disease, stage III (moderate) (HCC) - Primary Chronic kidney disease, | | Stage III (moderate) | + + documented in this encounter"
--- OUTSIDE RECORDS SUMMARY | ~2019-10-22 | XMS | Encounter Summary ---
Demographics + + + | Address | [address] | | | [place] [address] | + + + | Home Phone [...] [place] | | | | | [address] | | + + + + + | Atif Delgadillo | ECON | [place] | | | | | [address] | | + + + + + | Caleb Dawn | ECON | Unknown | | + + + + + Care Team Providers + +------+ + | Care Field Application Engineer Name | Role | Phone | + +------+ + | Anoop Moyer MD | PCP | | + +------+ + Encounter Details +--------+ + + + + | Date | Type | Department | Care Team | Description | +--------+ + + + + | 06/21/ | Abstract | [facility] [place] | Freddy Sanchez | | | 2017 | | NEPHROLOGY [address] | M, DO [address] [place] | | | | | [address] [facility] 100 | [place], [place] [address] | | | | | [place], [place] | [place], [place] | | | | | [address] | [address] | | | | | [phone] | | | +--------+ + + + [...] Bhagat | | | | | | [place], [place] [address] | | | | | | [place] | | | | | | [address] | | | | | | | | +--------+ + + + + | 05/20/ | Office | Cardiology | Yumiko Del Valle, | | | 2019 | Visit | | [address] | | | | | | [place] | | | | | | [address] | | | | | | | | +--------+ + + + + documented as of this encounter Procedures + +--------+ + + + | Procedure Name | Priori | Date/Time | Associated Diagnosis | Comments | | | ty | | | | + +--------+ + + + | EXTERNAL LAB: FATOUMATA | Routin | 06/20/2018 | | Results [...] | EXTERNAL LAB: ALT | Routin | 06/20/2018 | | Results for this | | | e | | | procedure are in the | | | | | | results section. | + +--------+ + + + | EXTERNAL LAB: AST | Routin | 06/20/2018 | | Results [...] | EXTERNAL LAB: CARBON | Routin | 06/20/2018 | | Results [...] | EXTERNAL LAB: SODIUM | Routin | 06/20/2018 | | Results for this | | | e | | | procedure are in the | | | | | | results section. | + +--------+ + + + | EXTERNAL LAB: ENRICO, | Routin | 06/20/2018 | | Results [...] | EXTERNAL LAB: CBC | Routin | 06/20/2018 | | Results for this | | | e | | | procedure are in the | | | | | | results section. | + +--------+ + + + | EXTERNAL LAB: EGFR | Routin | 06/20/2018 | | Results [...] + | HEMOGLOBIN A1C | Routin | 06/20/2018 | | Results for this | | | e | | | procedure are in the | | | | | | results section. | + +--------+ + + + documented in this encounter Results External Lab: Protein/Creatinine Ratio (06/20/2018) + +--------+ + + + | Component | Value | Ref Range | Performed | Pathologist | | | | | At | Signature | + +--------+ + + + | Protein/Cre | 0.0816 | 0.2 | | | | atinine | | | | | | Ratio, | | | | | | External | | | | | + +--------+ + + + + + | Specimen | + + | | + + External Lab: PTH, Intact (06/20/2018) + + + + + + | Component | Value | Ref Range | Performed | Pathologist | | | | | At | Signature | + + + + + + | PTH Intact, | 157.7 (A) | 12 - 88 | | | | External | | | | | + + + + + + + + | Specimen | + + | | + + Hemoglobin A1C (06/20/2018) + +-------+ + + + | Component | Value | Ref Range | Performed | Pathologist | | | | | At | Signature | + +-------+ + + + | Hemoglobin | 5.7 | 4.0 - 6.0 % | EXTERNAL | | | A1c [...] + +---------+ + + External Lab: BUN (06/20/2018) + +--------+ + + + | Component [...] + +---------+ + + External Lab: Glucose (06/20/2018) + +---------+ + + + | Component | Value | Ref Range | Performed | Pathologist | | | | | At | Signature | + +---------+ + + + | Glucose, | 109 (A) | 70 - 100 | EXTERNAL | | | External | | | LAB | | + +---------+ + + + + +---------+ + + | Performing | Address | City/State/Zipcode | Phone Number | | Organization | | | | + +---------+ + + | EXTERNAL LAB | | | | + +---------+ + + External Lab: ALT (06/20/2018) + +-------+ + + + | Component | Value | Ref Range | Performed | Pathologist | | | | | At | Signature | + +-------+ + + + | ALT, | 17 | 7 - 52 | EXTERNAL | | | External | | | LAB | | + +-------+ + + + + +---------+ + + | Performing | Address | City/State/Zipcode | Phone Number | | Organization | | | | + +---------+ + + | EXTERNAL LAB | | | | + +---------+ + + External Lab: AST (06/20/2018) + +--------+ + + + | Component | Value | Ref Range | Performed | Pathologist | | | | | At | Signature | + +--------+ + + + | AST, | 11 (A) | 13 - 39 | EXTERNAL | | | External | | | LAB | | + +--------+ + + + + +---------+ + + | Performing | Address | City/State/Zipcode | Phone Number | | Organization | | | | + +---------+ + + | EXTERNAL LAB | | | | + +---------+ + + External Lab: Alkaline Phosphatase (06/20/2018) + +-------+ + + + | Component | Value | Ref Range | Performed | Pathologist | | | | | At | Signature | + +-------+ + + + | ALP, | 63 | 31 - 120 | EXTERNAL | | | External | | | LAB | | + +-------+ + + + + +---------+ + + | Performing | Address | City/State/Zipcode | Phone Number | | Organization | | | | + +---------+ + + | EXTERNAL LAB | | | | + +---------+ + + External Lab: Bilirubin, Total (06/20/2018) + +-------+ + + + | [...] + +---------+ + + External Lab: Albumin (06/20/2018) + +-------+ + + + | [...] +---------+ + + External Lab: Protein, Total (06/20/2018) + +-------+ + + + | [...] + +---------+ + + External Lab: Phosphorus (06/20/2018) + +-------+ + + + | [...] + +---------+ + + External Lab: Calcium (06/20/2018) + +-------+ + + + | Component | Value | Ref Range | Performed | Pathologist | | | | | At | Signature | + +-------+ + + + | Calcium, | 10.1 | 8.5 - 10.2 | EXTERNAL | | | External | | | LAB | | + +-------+ + + + + +---------+ + + | Performing | Address | City/State/Zipcode | Phone Number | | Organization | | | | + +---------+ + + | EXTERNAL LAB | | | | + +---------+ + + External Lab: Carbon Dioxide (06/20/2018) + +-------+ + + + | [...] + +---------+ + + External Lab: Chloride (06/20/2018) + +-------+ + + + | [...] + +---------+ + + External Lab: Potassium (06/20/2018) + +-------+ + + + | Component | Value | Ref Range | Performed | Pathologist | | | | | At | Signature | + +-------+ + + + | Potassium, | 4.1 | 3.5 - 5 | EXTERNAL | | | External | | | LAB | | + +-------+ + + + + +---------+ + + | Performing | Address | City/State/Zipcode | Phone Number | | Organization | | | | + +---------+ + + | EXTERNAL LAB | | | | + +---------+ + + External Lab: Sodium (06/20/2018) + +-------+ + + + | Component | Value | Ref Range | Performed | Pathologist | | | | | At | Signature | + +-------+ + + + | Sodium, | 140 | 135 - 145 | EXTERNAL | | | External | | | LAB | | + +-------+ + + + + +---------+ + + | Performing | Address | City/State/Zipcode | Phone Number | | Organization | | | | + +---------+ + + | EXTERNAL LAB | | | | + +---------+ + + External Lab: CBC (06/20/2018) + +---------+ + + + | Component | Value | Ref Range | Performed | Pathologist | | | | | At | Signature | + +---------+ + + + | WBC, | 6.1 | 4 - 11 | EXTERNAL | | | External | | | LAB | | + +---------+ + + + | HGB, | 13.3 | 12 - 16 | EXTERNAL | | | External | | | LAB | | + +---------+ + + + | HCT, | 38.8 | 35 - 45 | EXTERNAL | | | External | | | LAB | | + +---------+ + + + | PLT, | 101 (A) | 140 - 440 | EXTERNAL | | | External | | | LAB | | + +---------+ + + + | RBC, | 4.2 | 4 - 6 | EXTERNAL | | | External | | | LAB | | + +---------+ + + + | MCV, | 93 | 80 - 100 | EXTERNAL | | | External | | | LAB | | + +---------+ + + + | RDW, | 14.5 | 10.5 - 15 | EXTERNAL | | | External | | | LAB | | + +---------+ + + + + +---------+ + + | Performing | Address | City/State/Zipcode | Phone Number | | Organization | | | | + +---------+ + + | EXTERNAL LAB | | | | + +---------+ + + External Lab: eGFR (06/20/2018) + +--------+ + + + | Component | Value | Ref Range | Performed | Pathologist | | | | | At | Signature | + +--------+ + + + | eGFR, | 26 (A) | 60 | EXTERNAL | | [...] + +---------+ + + External Lab: Creatinine (06/20/2018) + + + + + + | Component | Value | Ref Range | Performed | Pathologist | | | | | At | Signature | + + + + + + | Creatinine, | 2.44 (A) | 0.6 - 1.3 | EXTERNAL [...]
--- OUTSIDE RECORDS SUMMARY | ~2019-10-22 | XMS | Encounter Summary ---
Demographics + + + | Address | [address] | | | [place] [address] | + + + | Home Phone [...] [place] | | | | | [address] | | + + + + + | Atif Delgadillo | ECON | [place], [place] | | | | | [address] | | + + + + + | Caleb Dawn | ECON | Unknown | | + + + + + Care Team Providers + +------+ + | Care Mounter Flutes And Piccolos Name | Role | Phone | + [...] [address] | M, DO [address] [place] | | | | | [address] | [place], [place] [address] | | | | | [place], [place] | [place] | | | | | [address] | [address] | | | | | [phone] | | | +--------+ + + + [...] Visit | | M, DO [address] [place] | | | | | | [place], [address] | | | | | | [place] | | | | | | [address] | | | | | | | | +--------+ + + + + | 05/20/ | Office | Cardiology | Yumiko Del Valle, | | | 2019 | Visit | | MD Lupe TYLER | | | | | | [place] | | | | | | [address] | | | | | | | | +--------+ + + + + documented as of this encounter Visit Diagnoses Not on filedocumented in this encounter"
--- OUTSIDE RECORDS SUMMARY | ~2019-10-22 | XMS | Encounter Summary ---
Demographics + + + | Address | [address] | | | [place] [address] | + + + | Home Phone [...] [place] | | | | | [address] | | + + + + + | Atif Delgadillo | ECON | [place], [place] | | | | | [address] | | + + + + + | Caleb Dawn | ECON | Unknown | | + + + + + Care Team Providers + +------+ + | Care Director Of Special Services Name | Role | Phone | [...] NEPHROLOGY [address] | M, DO [address] [place] | unspecified type | | | | [address] [facility] | [place], [facility] 100 | diabetes mellitus | | | | [place], [place] | [place], [place] | with renal | | | | [address] | [address] | manifestations, not | | | | [phone] | | stated as | | | [...] 02/12/2014 PHOS 2.8 02/12/2014 PTH 105.1 02/12/2014 NHG4GRD 5.2 02/12/2014 Lab Results Component Value Date WBCEX 8.6 02/12/2014 HGBEX 13.1* 02/12/2014 HCTEX 38.6* 02/12/2014 PLTEX 169 02/12/2014 Lab Results Component Value Date CHOLEX 161 02/12/2014 HDLEX 30.4* 02/12/2014 LDLEX 80 02/12/2014 TRIGEX 253* 02/12/2014 last HbA1c = 5.2% Lab Results Component Value Date CRCLEARANCE 79.0* 02/12/2014 RRS04EFZ 287.0 02/12/2014 Assessment: 1. CKD Stage 2, [...] week prior to apollo t. CC: Hema Enlgish MD documented in thi s encounter Plan of Treatment +--------+ + + + + | Date | Type | Specialty | Care Team | Description | +--------+ + + + + | 03/16/ | Off-Site | Nephrology | Freddy Sanchez | | | 2019 | Visit | | DO Olayinka [address] [place] [address] | | | | | | [place] [address] [facility] | | | | | | [place] | | | | | | [id number] | | | | | | | | +--------+ + + + + | 05/20/ | Office | Cardiology | Yumiko Del Valle, | | | 2019 | Visit | | MD Lupe TYLER | | | | | | [place] | | | | | | [phone] | | | | | | | [...]
--- OUTSIDE RECORDS SUMMARY | ~2019-10-22 | XMS | Encounter Summary ---
Demographics + + + | Address | [address] | | | [place] [address] | + + + | Home Phone | | + + + | Preferred Language | Unknown | + + + | Marital Status | Single | + + + | Mormonism Affiliation | Unknown | + + + | Race | Unknown | + + + | Ethnic Group | Unknown | + + + Author + + + | Author | [facility] | | | and [place] | + + + | Organization | [facility] | | | and [place] | + + + | Address | Unknown | + + + | Phone | Unavailable | + + + Support + + + + + | Name | Relationship | Address | Phone | + + + + + | Hi Dawn | ECON | [place] | | | | | [address] | | + + + + + | Atif Delgadillo | ECON | [place], [place] | | | | | [address] | | + + + + + | Caleb Dawn | ECON | Unknown | | + + + + + Care Team Providers + +------+ + | Care Television Tube Inspector Name | Role | Phone | [...] | kidney | MD [address] | [address] | | | | | disease, | [place] | [place], [place] | | | | | stage 3 | [place] | [address] [place] | | | | | (moderate) | [place], | [place] | | | | | (HCC) | [place] | [address] Phone: | | | | | Hypertension | [address] | [phone] | | | | | , essential | Phone: | Fax: | | | | | Type 2 | [phone] | [phone] | | | | | diabetes | Fax: | | | | | | mellitus | [phone] | | | | | | with stage 3 | | | | | | | chronic | | | | | | | kidney | | | | | | | disease | | | | | | | (HCC) | | | | | | | Procedures | | | | | | | NE OFFICE | | | | | | [...] | | [address] [place] [address] | [place], [place] [address] | (moderate) (Primary | | | | [place] | [place] | Dx); Secondary | | | | [address] | [address] | hyperparathyroidism | | | | [phone] | | of renal origin | | [...] (ELOCON) 0.1 % cream Apply topically Daily. Onset-3 Fatty Acids (FISH OIL) 1200 MG CAPS Take 1,200 mg by mouth 2 times daily. [DISCONTINUED] Onset-3 Fatty Acids (FISH OIL) 300 MG CAPS [...] 01/05/2017 PHOSEX 3.7 01/05/2017 PTHEX 135.7* 01/05/2017 FWP4AMO 6.5 01/05/2017 Lab Results Component Value Date [...] 6 mo. at the CKD Clinic, at [place], [place]. He wi ll have a CBC, CMP, P04, PTH, CPK, HbA1c, lipid profile and 24-hour urine collection one w [place] prior to that. : Hema Gregory MD, [place], [place] documented in th is encounter Plan of Treatment +--------+ + + + + | Date | Type | Specialty | Care Team | Description | +--------+ + + + + | 03/16/ | Off-Site | Nephrology | Freddy Sanchez | | | 2019 | Visit | | DO [address] | | | | | | [place] [...] | | | | | [place] [facility] [place] | | | | | | [address] | | | | | | | [...]
--- OUTSIDE RECORDS SUMMARY | ~2019-10-22 | XMS | Encounter Summary ---
Demographics + + + | Address | [address] | | | [place] [address] | + + + | Home Phone [...] + + + | Author | [facility] | | | and [place] | + + + | Organization | [facility] | | | and [place] | + + + | Address | Unknown | + + + | Phone | Unavailable | + + + Support + + + + + | Name | Relationship | Address | Phone | + + + + + | Hi Dawn | ECON | [place] | | | | | [address] | | + + + + + | Atif Delgadillo | ECON | [place], [place] | | | | | [address] | | + + + + + | Caleb Dawn | ECON | Unknown | | + + + + + Care Team Providers + +------+ + | Care Clear Coat Sprayer Name | Role | Phone | + +------+ + PCP | Unavailable | + +------+ + Encounter Details +--------+ + + + + | Date | Type | Department | Care Team | Description | +--------+ + + + + | 06/09/ | Abstract | [facility] [place] | [place], | | | 2014 | | NEPHROLOGY [address] | Jelena Deutsch RN | | | | | [address] [place] | | | | | | [place] | | | | | | [address] | | | | | | [phone] | | | +--------+ + + + [...] West | | | | | | [address] [place] [address] | | | | | | [place] | | | | | | [address] | | | | | | | | +--------+ + + + + | 05/20/ | Office | Cardiology | Yumiko Del Valle, | | | 2019 | Visit | | MD Lupe TYLER | | | | | | [place] | | | | | | [address] | | | | | | | | +--------+ + + + + documented as of this encounter Visit Diagnoses Not on filedocumented in this encounter"
--- OUTSIDE RECORDS SUMMARY | ~2019-10-22 | XMS | Encounter Summary ---
Demographics + + + | Address | [address] | | | [place] [address] | + + + | Home Phone | | + + + | Preferred Language | Unknown | + + + | Marital Status | Single | + + + | Pentecostal Affiliation | Unknown | + + + | Race | Unknown | + + + | Ethnic Group | Unknown | + + + Author + + + | Author | [facility] | | | and [place] | + + + | Organization | [facility] | | | and [place] | + + + | Address | Unknown | + + + | Phone | Unavailable | + + + Support + + + + + | Name | Relationship | Address | Phone | + + + + + | Hi Dawn | ECON | [place] | | | | | [address] | | + + + + + | Atif Delgadillo | ECON | [place], [place] | | | | | [address] | | + + + + + | Caleb Dawn | ECON | Unknown | | + + + + + Care Team Providers + +------+ + | Care Interactive Art Director Name | Role | Phone | [...] NEPHROLOGY [address] | M, DO [address] | | | | | [address] | [place], [place] [address] | | | | | [place], [place] | [place] | | | | | [address] | [address] | | | | | [phone] | | | +--------+ + + + [...] | Visit | | M, DO [address] | | | | | | [place], [place] [address] | | | | | | [place] | | | | | | [address] | | | | | | | | +--------+ + + + + | 05/20/ | Office | Cardiology | Yumiko Del Valle, | | | 2019 | Visit | | [address] | | | | | | [place], [place] | | | | | | [address] | | | | | | | [...]
--- OUTSIDE RECORDS SUMMARY | ~2019-10-22 | XMS | Encounter Summary ---
Demographics + + + | Address | [address] | | | [place] [address] | + + + | Home Phone | | + + + | Preferred Language | Unknown | + + + | Marital Status | Single | + + + | Bahai Affiliation | Unknown | + + + | Race | Unknown | + + + | Ethnic Group | Unknown | + + + Author + + + | Author | [facility] | | | and [place] | + + + | Organization | [facility] | | | and [place] | + + + | Address | Unknown | + + + | Phone | Unavailable | + + + Support + + + + + | Name | Relationship | Address | Phone | + + + + + | Hi Dawn | ECON | [place] | | | | | [address] | | + + + + + | Atif Delgadillo | ECON | [place], [place] | | | | | [address] | | + + + + + | Caleb Dawn | ECON | Unknown | | + + + + + Care Team Providers + +------+ + | Care Drier Operator Helper Name | Role | Phone [...] NEPHROLOGY [address] | M, DO [address] | disease, stage III | | | | [address] | [place], [place] [address] | (moderate) (Primary | | | | [place], [place] | [place], [place] | Dx); Hypertension | | | | [address] | [address] | | | | | [phone] | | | +--------+ + + + [...] as of this encounter Progress Notes Jelena iWck RN - 04/24/2014 12:00 PM PDTAppointment moved to 05/19/14.Robina rita signed by Jelena Wick RN at 04/24/2014 12:00 PM Imani Segovia RN - 03/20 1:41 PM [facility] documented in this e ncounter Plan of Treatment +--------+ + + + + | Date | Type | Specialty | Care Team | Description | +--------+ + + + + | 03/16/ | Off-Site | Nephrology | Freddy Sanchez | | | 2019 | Visit | | DO [address] [place] [address] | | | | | | [place] | | | | | | [place] | | | | | | [address] | | | | | | | | +--------+ + + + + | 05/20/ | Office | Cardiology | Yumiko Del Valle, | | | 2019 | Visit | | MD Lupe TYLER | | | | | | [place] | | | | | | [phone] | | | | | | | [...]
--- OUTSIDE RECORDS SUMMARY | ~2019-10-22 | XMS | Encounter Summary ---
Demographics + + + | Address | [address] | | | [place] [address] | + + + | Home Phone [...] [place] | | | | | [address] | | + + + + + | Atif Delgadillo | ECON | [place], [place] | | | | | [address] | | + + + + + | Caleb Dawn | ECON | Unknown | | + + + + + Care Team Providers + +------+ + | Care Information Security Risk Analyst Name | Role | Phone | [...] [address] | | | | | [place], | [place], | | | | | [place] [address] | [place] [address] | | | | | [phone] | [phone] | | | | | | | [...] | Visit | | M, DO [address] | | | | | | [place], [place] [address] | | | | | | [place] | | | | | | [address] | | | | | | | | +--------+ + + + + | 05/20/ | Office | Cardiology | Yumiko Del Valle, | | | 2019 | Visit | | [address] | | | | | | [place] | | | | | | [address] | | | | | | | | +--------+ + + + + documented as of this encounter Procedures + +--------+ + + + | Procedure Name | Priori | Date/Time | Associated Diagnosis | Comments | | | ty | | | | + +--------+ + + + | EXTERNAL LAB: [facility] | Routin | 09/29/2016 | | Results [...] +--------+ + + + | [facility], | 40 (A) | 6 - 23 | EXTERNAL | | | External | | | LAB | | + +--------+ + + + + + | Resulting Agency Comment | + + | [facility] | + + + +---------+ + + [...] Comment | + + | [facility] | + + + +---------+ + + | Performing | Address | City/State/Zipcode | Phone Number | | Organization | | | | + +---------+ + + | EXTERNAL LAB | | | | + +---------+ + + External Lab: [facility] (09/29/2016 10:36 PM PST) + +-------+ + [...] Comment | + + | [facility] | + + + +---------+ + + [...] Comment | + + | [facility] | + + + +---------+ + + [...] Comment | + + | [facility] | + + + +---------+ + + [...] Comment | + + | [facility] | + + + +---------+ + + [...] Comment | + + | [facility] | + + + +---------+ + + [...] - 1.03 | EXTERNAL | | | [place], | | | LAB | | | External | | | | | + + + + + + + + | Resulting Agency Comment | + + | [facility] | + + + +---------+ + + [...] Comment | + + | [facility] | + + + +---------+ + + [...] Comment | + + | [facility] | + + + +---------+ + + [...] Comment | + + | [facility] | + + + +---------+ + + [...] Comment | + + | [facility] | + + + +---------+ + + [...] Comment | + + | [facility] | + + + +---------+ + + [...]
--- OUTSIDE RECORDS SUMMARY | ~2019-10-22 | XMS | Encounter Summary ---
Demographics + + + | Address | [address] | | | [place] [address] | + + + | Home Phone | | + + + | Preferred Language | Unknown | + + + | Marital Status | Single | + + + | Pentecostalism Affiliation | Unknown | + + + [...] [place] | | | | | [address] | | + + + + + | Atif Delgadillo | ECON | [place], [place] | | | | | [address] | | + + + + + | Caleb Dawn | ECON | Unknown | | + + + + + Care Team Providers + +------+ + | Care Nutrition Coordinator Name | Role | Phone | + +------+ + PCP | Unavailable | + +------+ + Encounter Details +--------+ + + + + | Date | Type | Department | Care Team | Description | +--------+ + + + + | 02/01/ | Hospital | [facility] | | | | 2006 - | Encounter | MED CTR XRAY [address] | | | | | | [place] | | | | 02/17/ | | [place] [address] | | | | 2006 | | [phone] | | | +--------+ + + + [...] 2019 | Visit | | DO Olayinka [address] [place] [address] | | | | | | [place] | | | | | | [place] | | | | | | [id number] | | | | | | | | +--------+ + + + + | 05/20/ | Office | Cardiology | Yumiko Del Valle, | | | 2019 | Visit | | MD Lupe TYLER | | | | | | [place] | | | | | | [phone] | | | | | | | | +--------+ + + + + documented as of this encounter Visit Diagnoses Not on filedocumented in this encounter"
--- OUTSIDE RECORDS SUMMARY | ~2019-10-22 | XMS | Encounter Summary ---
Demographics + + + | Address | [address] | | | [place] [address] | + + + | Home Phone [...] [place] | | | | | [address] | | + + + + + | Atif Delgadillo | ECON | [place] | | | | | [address] | | + + + + + | Caleb Dawn | ECON | Unknown | | + + + + + Care Team Providers + +------+ + | Care Reading Instructor Name | Role | Phone | + [...] | kidney | MD [address] | [address] | | | | | disease, | [place] | [place], [place] | | | | | stage 3 | [place] [address] | [address] [place] | | | | | (moderate) | [place], | [place] | | | | | (HCC) | [place] | [address] Phone: | | | | | Hypertension | [address] | [phone] | | | | | , essential | Phone: | Fax: | | | | | Type 2 | [phone] | [phone] | | | | | diabetes | Fax: | | | | | | mellitus | [phone] | | | | | | with stage 3 | | | | | | | chronic | | | | | | | kidney | | | | | | | disease | | | | | | | (HCC) | | | | | | | Procedures | | | | | | | [place] OFFICE | | | | | | [...] + + | 09/23/ | Off-Site | [facility] [place] | Freddy Sanchez | Chronic kidney | | 2019 | Visit | NEPHROLOGY [address] | M, DO [address] | disease, stage III | | | | [address] | [place], [place] [address] | (moderate) (HCC) | | | | [place] | [place] | (Primary Dx); Type 2 | | | | [address] | [address] | diabetes mellitus | | | | [phone] | | with stage 3 chronic | | | | | | kidney disease, | | | | | | unspecified whether | | | | | | joint terminal attack controller insulin | | | | | | use ([facility]); | | | | | | Hyperparathyroidism | | | | | | due to renal | | | | | | insufficiency ([facility]); | | | | | | [...] Instructions Patient Instructions Freddy Sanchez DO - 09/23/2019 3:00 PM PSTat the CKD Clinic at [place], [place]. documented in this encounter Progress Notes Freddy Sanchez DO - 09/23/2019 3:00 PM PST Subjective: NEPHROLOGY Patient ID: Steve Tanner is a 74 y.o. male. HPI Comments: Follow up for this pleasant, 74 YOWM with CKD secondary to Type 2 DM. He also has a hist ory of a remote DU, 2013, hypertension, hyperlipidemia, DJD of knees, SHPTH, ASCVD, s/p lef t CEA, 2005, anemia secondary to CKD, gout, and Type 2 DM. He generally has some white coat hypertension and is higher here at the office. He states at home readings are consistently 125-135/72 mmHg. He has a diligent home BG log which show s his home readings consistently (82-169). He states that he is now able to tolerate his s tatin therapy okay without symptoms. He denies worsening edema, hiccups, dyspnea. MEDS: Outpatient Medications Marked as Taking for the 09/23/19 encounter (Off-Site Visit) with Bryan Sanchez DO Medication Sig Dispense Refill [DISCONTINUED] acetaminophen (TYLENOL) 500 mg tablet Take 500 mg by mouth as needed. allopurinol (ZYLOPRIM) 300 mg tablet Take 300 mg by mouth Daily. [DISCONTINUED] aspirin 81 MG tablet Take 81 mg by mouth Daily. aspirin 81 MG tablet Take 1 tablet by mouth Daily. [DISCONTINUED] Aspirin-Calcium Carbonate (YARIEL WOMENS) 81-777 MG TABS Take 81 mg by mo uth Daily. [DISCONTINUED] calcitRIOL (ROCALTROL) 0.5 MCG capsule Take 0.5 mcg by mouth Daily. [DISCONTINUED] carvedilol (COREG) 25 mg tablet Take 6.25 mg by mouth 2 times daily. carvedilol (COREG) 25 mg tablet Take 0.5 tablets by mouth 2 times daily (with breakfast & dinner). 60 tablet 6 [DISCONTINUED] carvedilol (COREG) 6.25 mg tablet carvedilol (COREG) 6.25 mg tablet Take 1 tablet by mouth 2 times daily. With meals [DISCONTINUED] cholecalciferol (CHOLECALCIFEROL) 5000 units TABS Take 5,000 Units by mo uth Daily. [DISCONTINUED] cinacalcet (SENSIPAR) 30 mg tablet Take 30 mg by mouth. See Admin Instru ctions cyanocobalamin (VITAMIN B-12) 1000 MCG tablet Take 2,500 mcg by mouth Daily. [DISCONTINUED] doxycycline (MONODOX) 100 mg capsule [DISCONTINUED] fenofibrate (TRICOR) 48 mg tablet fluticasone (FLONASE) 50 mcg/nasal spray 1 spray by Each Nare route Daily. [DISCONTINUED] furosemide (LASIX) 40 mg tablet Take 40 mg by mouth 2 times daily. furosemide (LASIX) 40 mg tablet TAKE ONE TABLET BY MOUTH TWICE A DAY 60 tablet 6 glimepiride (AMARYL) 1 mg tablet Take 1 mg by mouth every morning. Before breakfast [DISCONTINUED] glimepiride (AMARYL) 1 mg tablet [DISCONTINUED] Linagliptin (TRADJENTA) 5 MG TABS Take 5 mg by mouth Daily. [DISCONTINUED] Liraglutide (VICTOZA SC) 1.2 mg Daily. Inject into the skin. Victoza 3-P K [DISCONTINUED] liraglutide (VICTOZA) 18 mg/3 mL injection 1.8 mg Daily. Inject into the skin liraglutide (VICTOZA) 18 mg/3 mL injection Inject 1.2 mg under the skin Daily. 11 losartan (COZAAR) 25 mg tablet Take 25 mg by mouth Daily. [DISCONTINUED] losartan (COZAAR) 25 mg tablet Take 1 tablet by mouth Daily. 90 tablet 4 melatonin 5 mg tablet Take 3 mg by mouth. At bedtime as needed [DISCONTINUED] mometasone (ELOCON) 0.1 % cream Apply 1 Application topically as needed. mometasone (ELOCON) 0.1 % cream Apply topically Daily. Multiple Vitamins-Minerals (CENTRUM PO) Take 1 tablet by mouth Daily. Multivitamin/iron /folic acid (CENTRUM COMPLETE ORAL) nateglinide (STARLIX) 60 MG tablet [DISCONTINUED] omega-3 acid ethyl esters (LOVAZA) 1 g capsule Take 1,000 mg by mouth [place]. [place]-3 Fatty Acids (FISH OIL) 1200 MG CAPS Take 1,200 mg by mouth Daily. rosuvastatin (CRESTOR) 5 MG tablet Take 5 mg by mouth Three times a week. Allergies Allergen Reactions Colchicine Hives Penicillins Rash and Hives Atorvastatin Other (See Comments) weakness weakness Lisinopril Other (See Comments) and Cough Cough Objective: BP 170/88 | Temp 36 C (96.8 F) | Wt 133.8 kg (295 lb) | BMI 36.87 kg/m Physical Exam Heart: Regular rate and rhythm with no S3, S4, murmur or rub. Lungs: CTA bilaterally. No rales or wheezes. Abdomen: soft, obese, nontender, NABS. Extremities: no edema, no clubbing, or cyanosis. No foot ulcers. Lab Results Component Value Date NAEX 142 09/18/2019 KEX 4.1 09/18/2019 CLEX 101 09/18/2019 CO2EX 30 09/18/2019 BUNEX 28 09/18/2019 CREEX 1.81 09/18/2019 EGFREX 37 09/18/2019 GLUEX 88 09/18/2019 CAEX 10.2 09/18/2019 PHOSEX 3.2 09/18/2019 PTHEX 156.2 (A) 09/18/2019 YTG4QGA 5.7 06/20/2018 Lab Results Component Value Date WBCEX 6.5 09/18/2019 HGBEX 14.2 09/18/2019 HCTEX 41.2 09/18/2019 PLTEX 157 09/18/2019 Urine Pro/Cr ratio = Lab Results Component Value Date PROTEX 0.252 (A) 09/18/2019 Assessment: 1. CKD Stage 3, secondary to diabetic glomerulosclerosis and HTN-- his GFR slightly improv ed. 2. Hypertension--good control on his home log. 3. Type 2 DM-- good control. 4. SHPTH--PTH is trending back up. Apparently, his insurance company will not pay for Se nsipar. 5. H/O PUD, DU, on EGD,12/16/13-- no recurrence. 6. ASCVD/ s/p left CEA, 2005--stable on ASA, statin Rx. 7. Hyperlipidemia--on statin Rx. 8. Gout-- in remission. Plan: 1. I reviewed with Steve his lab, eGFR and today's BP. He assures me that his home read ings are significant better in terms of blood pressure. 2. 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 3. Will not resume calcitriol or Zemplar for fear of aggravating his hypercalcemia. State s he currently is not taking vitamin D3. 4. If his glycemic control worsens I discussed that he might be a candidate for an SGLT2 i nhibitor, e.g. empagliflozin.however, he has good control currently. 5. Will plan to see him back in 6 months at the CKD Clinic at [place], [place]. He will have a CBC, CMP, PO4, HbA1c, iPTH, lipid profile, and 24 Hour urine one week prio r to that. Electronically signed by Freddy Sanchez DO. 09/20/19 9:52 CC: Anoop Vargas MD, [facility] Yumiko Del Valle MD, FACC documented in this encounter Plan of Treatment [...] [place] | | | | | | [address] | | | | | | | | +--------+ + + + + | 05/20/ | Office | Cardiology | Yumiko Del Valle, | | | 2019 | Visit | | [address] | | | | | | [place] | | | | | | [address] | | | | | | | [...] this encounter Results LABS - EXTERNAL SCAN (07/26/2019 12:00 AM PDT) + + + | [...] (of renal origin) | + + | Essential hypertension with goal blood pressure less than 130/80 | + + documented in this encounter"
--- OUTSIDE RECORDS SUMMARY | ~2019-10-22 | XMS | Encounter Summary ---
Demographics + + + | Address | [address] | | | [place] [address] | + + + | Home Phone [...] + + + | Author | [facility] | | | and [place] | + + + | Organization | [facility] | | | and [place] | + + + | Address | Unknown | + + + | Phone | Unavailable | + + + Support + + + + + | Name | Relationship | Address | Phone | + + + + + | Hi Dawn | ECON | [place] | | | | | [address] | | + + + + + | Atif Delgadillo | ECON | [place], [place] | | | | | [address] | | + + + + + | Caleb Dawn | ECON | Unknown | | + + + + + Care Team Providers + +------+ + | Care Materials Engineer Name | Role | Phone | [...] NEPHROLOGY [address] | M, DO [address] | | | | | [address] | [place], [place] [address] | | | | | [place], [place] | [place] | | | | | [address] | [address] | | | | | [phone] | | | +--------+ + + + [...] | Visit | | M, DO [address] | | | | | | [place], [place] [address] | | | | | | [place] | | | | | | [address] | | | | | | | | +--------+ + + + + | 05/20/ | Office | Cardiology | Yumiko Del Valle, | | | 2019 | Visit | | [address] | | | | | | [place] | | | | | | [address] | | | | | | | [...] | EXTERNAL LAB: CBC | Routin | 02/12/2014 | | Results [...] + +---------+ + + External Lab: [facility] (02/12/2014) + +-------+ + + + | [...] | | | LAB | | | [facility], | | | | | | External [...]
--- OUTSIDE RECORDS SUMMARY | ~2019-10-22 | XMS | Encounter Summary ---
Demographics + + + | Address | [address] | | | [place] [address] | + + + | Home Phone | | + + + | Preferred Language | Unknown | + + + | Marital Status | Single | + + + | Gnosticist Affiliation | Unknown | + + + [...] [place] | | | | | [address] | | + + + + + | Atif Delgadillo | ECON | [place] | | | | | [address] | | + + + + + | Caleb Dawn | ECON | Unknown | | + + + + + Care Team Providers + +------+ + | Care Laundry Manager Name | Role | Phone | [...] NEPHROLOGY [address] | M, DO [address] | | | | | [address] [facility] | [place], [facility] 100 | | | | | [place], [place] | [place] | | | | | [address] | [address] | | | | | [phone] | | | +--------+--------+ + + + [...] 2019 | Visit | | DO Olay[address]a [address] [place] [address] | | | | | | [place] [address] | | | | | | [place] | | | | | | [address] | | | | | | | | +--------+ + + + + | 05/20/ | Office | Cardiology | Yumiko Del Valle, | | | 2019 | Visit | | MD Lupe TYLER | | | | | | [place] | | | | | | [address] | | | | | | | [...]
--- OUTSIDE RECORDS SUMMARY | ~2019-10-22 | XMS | Encounter Summary ---
Demographics + + + | Address | [address] | | | [place] [address] | + + + | Home Phone [...] [place] | | | | | [address] | | + + + + + | Atif Delgadillo | ECON | [place], [place] | | | | | [address] | | + + + + + | Caleb Dawn | ECON | Unknown | | + + + + + Care Team Providers + +------+ + | Care Jewel Sawyer Name | Role | Phone | + [...] [address] | | | | | [place], | [place], | | | | | [place] [address] | [place] [address] | | | | | [phone] | [phone] | | | | | | | [...] | Visit | | DO [address] [place] | | | | | | [place] [address] | | | | | | [place] | | | | | | [address] | | | | | | | | +--------+ + + + + | 05/20/ | Office | Cardiology | Yumiko Del Valle, | | | 2019 | Visit | | MD Lupe TYLER | | | | | | [place] | | | | | | [phone] | | | | | | | | +--------+ + + + + documented as of this encounter Visit Diagnoses Not on filedocumented in this encounter"
--- OUTSIDE RECORDS SUMMARY | ~2019-10-22 | XMS | Encounter Summary ---
Demographics + + + | Address | [address] | | | [place] [address] | + + + | Home Phone [...] [place] | | | | | [address] | | + + + + + | Atif Delgadillo | ECON | [place] | | | | | [address] | | + + + + + | Caleb Dawn | ECON | Unknown | | + + + + + Care Team Providers + +------+ + | Care Neighborhood Service Center Director Name | Role | Phone | [...] NEPHROLOGY [address] | M, DO [address] | | | | | [address] [facility] | [place], [place] [address] | | | | | [place], [place] | [place], [place] | | | | | [address] | [address] | | | | | [phone] | | | +--------+ + + + [...] [address] | | | | | | [place], [place] [address] | | | | | | [place] | | | | | | [address] | | | | | | | | +--------+ + + + + | 05/20/ | Office | Cardiology | Yumiko Del Valle, | | | 2019 | Visit | | [address] | | | | | | [place] | | | | | | [address] | | | | | | | [...]
--- OUTSIDE RECORDS SUMMARY | ~2019-10-22 | XMS | Encounter Summary ---
Demographics + + + | Address | [address] | | | [place] [address] | + + + | Home Phone [...] [place] | | | | | [address] | | + + + + + | Atif Delgadillo | ECON | [place], [place] | | | | | [address] | | + + + + + | Caleb Dawn | ECON | Unknown | | + + + + + Care Team Providers + +------+ + | Care Asset Protection Detective Name | Role | Phone | + [...] [address] | | | | | [place], | [place], | | | | | [place] [address] | [place] [address] | | | | | [phone] | [phone] | | | | | | | [...] | Visit | | M, DO [address] | | | | | | [place], [place] [address] | | | | | | [place] | | | | | | [address] | | | | | | | | +--------+ + + + + | 05/20/ | Office | Cardiology | Yumiko Del Valle, | | | 2019 | Visit | | [address] | | | | | | [place] | | | | | | [address] | | | | | | | [...] Comment | + + | [facility] | + + + +---------+ + + [...] Comment | + + | [facility] | + + + +---------+ + + [...] Comment | + + | [facility] | + + + +---------+ + + [...] Comment | + + | [facility] | + + + +---------+ + + [...] Comment | + + | [facility] | + + + +---------+ + + [...] Comment | + + | [facility] | + + + +---------+ + + [...] Comment | + + | [facility] | + + + +---------+ + + [...] - 1.03 | EXTERNAL | | | [place], | | | LAB | | | External | | | | | + + + + + + + + | Resulting Agency Comment | + + | [facility] | + + + +---------+ + + [...] Comment | + + | [facility] | + + + +---------+ + + [...] Comment | + + | [facility] | + + + +---------+ + + [...] Comment | + + | [facility] | + + + +---------+ + + [...] Comment | + + | [facility] | + + + +---------+ + + [...] Comment | + + | [facility] | + + + +---------+ + + [...]
--- OUTSIDE RECORDS SUMMARY | ~2019-10-22 | XMS | Encounter Summary ---
Demographics + + + | Address | [address] | | | [place] [address] | + + + | Home Phone | | + + + | Preferred Language | Unknown | + + + | Marital Status | Single | + + + | Anabaptist Affiliation | Unknown | + + + | Race | Unknown | + + + | Ethnic Group | Unknown | + + + Author + + + | Author | [facility] | | | and [place] | + + + | Organization | [facility] | | | and [place] | + + + | Address | Unknown | + + + | Phone | Unavailable | + + + Support + + + + + | Name | Relationship | Address | Phone | + + + + + | Hi Dawn | ECON | [place] | | | | | [address] | | + + + + + | Atif Delgadillo | ECON | [place] | | | | | [address] | | + + + + + | Caleb Dawn | ECON | Unknown | | + + + + + Care Team Providers + +------+ + | Care Medical Technologist Prn Name | Role | Phone | + [...] NEPHROLOGY [address] | M, DO [address] | | | | | [address] [place] [address] | [place], [place] [address] | | | | | [place], [place] | [place] | | | | | [address] | [address] | | | | | [phone] | | | +--------+ + + + [...] [address]agat | | | | | | [place], [place] [address] | | | | | | [place] | | | | | | [address] | | | | | | | | +--------+ + + + + | 05/20/ | Office | Cardiology | Yumiko Del Valle, | | | 2019 | Visit | | [address] | | | | | | [place] | | | | | | [address] | | | | | | | | +--------+ + + + + documented as of this encounter Procedures + +--------+ + + + | Procedure Name | Priori | Date/Time | Associated Diagnosis | Comments | | | ty | | | | + +--------+ + + + | EXTERNAL LAB: [facility] | Routin | 09/18/2019 | | Results [...]
--- OUTSIDE RECORDS SUMMARY | ~2019-10-22 | XMS | Encounter Summary ---
Demographics + + + | Address | [address] | | | [place] [address] | + + + | Home Phone [...] [place] | | | | | [address] | | + + + + + | Atif Delgadillo | ECON | [place], [place] | | | | | [address] | | + + + + + | Caleb Dawn | ECON | Unknown | | + + + + + Care Team Providers + +------+ + | Care Pickling Machine Operator Name | Role | Phone | + +------+ + PCP | Unavailable | + +------+ + Reason for Visit + + + | Reason | Comments | + + + | Appointment | | + + + Encounter Details +--------+ + + + + | Date | Type | Department | Care Team | Description | +--------+ + + + + | 11/18/ | Telephone | [facility] | Timothy, | Appointment | | 2015 | | CARDIOLOGY [address] | ELLA [place] [address] | | | | | [place], | [place], | | | | | [place] [address] | [place] [address] | | | | | [phone] | [phone] | | | | | | | [...] | Visit | | DO Anival [address] [place] | | | | | | [place] | | | | | | [place] | | | | | | [address] | | | | | | | | +--------+ + + + + | 05/20/ | Office | Cardiology | Yumiko Del Valle, | | | 2019 | Visit | | MD Lupe [address]YL[address] | | | | | | [place] | | | | | | [address] | | | | | | | | +--------+ + + + + documented as of this encounter Visit Diagnoses Not on filedocumented in this encounter"
--- OUTSIDE RECORDS SUMMARY | ~2019-10-22 | XMS | Encounter Summary ---
Demographics + + + | Address | [address] | | | [place] [address] | + + + | Home Phone [...] [place] | | | | | [address] | | + + + + + | Atif Delgadillo | ECON | [place], [place] | | | | | [address] | | + + + + + | Caleb Dawn | ECON | Unknown | | + + + + + Care Team Providers + +------+ + | Care Pest Control Specialist Name | Role | Phone | + +------+ + PCP | Unavailable | + +------+ + Reason for Visit + + + | Reason | Comments | + + + | Lab Order | | + + + Encounter Details +--------+ + + + + | Date | Type | Department | Care Team | Description | +--------+ + + + + | 10/02/ | Telephone | [facility] | Freddy Sanchez | Lab Order | | 2016 | | NEPHROLOGY [address] | M, DO [address] | | | | | [address] [facility] [address] | [place], [facility] 100 | | | | | [place], [place] | [place], [place] | | | | | [address] | [address] | | | | | [phone] | | | +--------+ + + + [...] | Visit | | DO Olayinka [address] | | | | | | [place] [address] | | | | | | [place] | | | | | | [address] | | | | | | | | +--------+ + + + + | 05/20/ | Office | Cardiology | Yumiko Del Valle, | | | 2019 | Visit | | [address] | | | | | | [place] | | | | | | [address] | | | | | | | [...] + + | CREATININE | Routin | 10/03/2017 | | Results for this | | CLEARANCE, RESULT | e | | | procedure are in the | | | | | | results section. | + +--------+ + + + documented in this encounter Results Creatinine Clearance, Result (10/03/2017) + + + + + + | Component | Value | Ref Range | Performed | Pathologist | | | | | At | Signature | + + + + + + | CREATININE | 52.0 (A) | 97.0 - 137.0 | | | | CLEARANCE | | mL/min | | | + + + + + + | 24H Urine | 3,500 | mL | | | | Volume | | | | | + + + + + + + + | Specimen | + + | Urine | + + External Lab: Protein, Urine, 24Hr (10/03/2017) + +-------+ + + + | Component | Value | Ref Range | Performed | Pathologist | | | | | At | Signature | + +-------+ + + + | Protein, | 140 | | | | | Urine 24Hr, | | | | | | External | | | | | + +-------+ + + + + + | Specimen | + + | Urine | + + documented in this encounter Visit Diagnoses Not on filedocumented in this encounter"
--- OUTSIDE RECORDS SUMMARY | ~2019-10-22 | XMS | Encounter Summary ---
Demographics + + + | Address | [address] | | | [place] [address] | + + + | Home Phone [...] + + + | Author | [facility] | | | and [place] | + + + | Organization | [facility] | | | and [place] | + + + | Address | Unknown | + + + | Phone | Unavailable | + + + Support + + + + + | Name | Relationship | Address | Phone | + + + + + | Hi Dawn | ECON | [place] | | | | | [address] | | + + + + + | Atif Delgadillo | ECON | [place] | | | | | [address] | | + + + + + | Caleb Dawn | ECON | Unknown | | + + + + + Care Team Providers + +------+ + | Care Valet Parker Name | Role | Phone | + [...] NEPHROLOGY [address] | M, DO [address] | disease, stage III | | | | [address] | [place], [place] [address] | (moderate) (Primary | | | | [place], [place] | [place] | Dx); Type 2 diabetes | | | | [address] | [address] | mellitus with stage | | | | [phone] | | 3 chronic kidney | | [...] PDTLabs for upcoming nephrology appointment sent to: [facility] documented in t his encounter Plan [...] [place] | | | | | | [address] | | | | | | | | +--------+ + + + + | 05/20/ | Office | Cardiology | Yumiko Del Valle, | | | 2019 | Visit | | MD Lupe [address]YL[address] | | | | | | [place] | | | | | | [phone] | | | | | | | [...]
--- OUTSIDE RECORDS SUMMARY | ~2019-10-22 | XMS | Encounter Summary ---
Demographics + + + | Address | [address] | | | [place] [address] | + + + | Home Phone | | + + + | Preferred Language | Unknown | + + + | Marital Status | Single | + + + | Shinto Affiliation | Unknown | + + + | Race | Unknown | + + + | Ethnic Group | Unknown | + + + Author + + + | Author | [facility] | | | and [place] | + + + | Organization | [facility] | | | and [place] | + + + | Address | Unknown | + + + | Phone | Unavailable | + + + Support + + + + + | Name | Relationship | Address | Phone | + + + + + | Hi Dawn | ECON | [place] | | | | | [address] | | + + + + + | Atif Delgadillo | ECON | [place], [place] | | | | | [address] | | + + + + + | Caleb Dawn | ECON | Unknown | | + + + + + Care Team Providers + +------+ + | Care Opera Singer Name | Role | Phone | + +------+ + PCP | Unavailable | + +------+ + Encounter Details +--------+ + + + + | Date | Type | Department | Care Team | Description | +--------+ + + + + | 05/04/ | Abstract | [facility] | Freddy Sanchez | | | 2017 | | NEPHROLOGY [address] | M, DO [address] | | | | | [address] [place] | [place], [place] [address] | | | | | [place], [place] | [place] | | | | | [address] | [address] | | | | | [phone] | | | +--------+ + + + [...] PDTOutside records: Standing labs orders from [facility] [place]. Dos: 05/03/17. Sent to scan. documented in this encounter Plan of Treatment +--------+ + + + + | Date | Type | Specialty | Care Team | Description | +--------+ + + + + | 03/16/ | Off-Site | Nephrology | Freddy Sanchez | | | 2019 | Visit | | DO Olayinka [facility] | | | | | | [place] | | | | | | [place] | | | | | | [address] | | | | | | | | +--------+ + + + + | 05/20/ | Office | Cardiology | Yumiko Del Valle, | | | 2019 | Visit | | MD Lupe TYLER | | | | | | [place] | | | | | | [phone] | | | | | | | | +--------+ + + + + documented as of this encounter Visit Diagnoses Not on filedocumented in this encounter"
--- OUTSIDE RECORDS SUMMARY | ~2019-10-22 | XMS | Encounter Summary ---
Demographics + + + | Address | [address] | | | [place] [address] | + + + | Home Phone [...] [place] | | | | | [address] | | + + + + + | Atif Delgadillo | ECON | [place], [place] | | | | | [address] | | + + + + + | Caleb Dawn | ECON | Unknown | | + + + + + Care Team Providers + +------+ + | Care Aquatic Biologist Name | Role | Phone | + [...] NEPHROLOGY [address] | MD [address] | (Primary Dx) | | | | [address] | [place] [address] [place] | | | | | [place] | [place] [address] | | | | | [address] | [phone] | | | | | [phone] | | | +--------+ + + + [...] [address] | | | | | | [place], [place] [address] | | | | | | [place], [place] | | | | | | [address] | | | | | | | | +--------+ + + + + | 05/20/ | Office | Cardiology | Yumiko Del Valle, | | | 2019 | Visit | | MD Lupe [address]YL[address] | | | | | | [place] | | | | | | [address] | | | | | | | | +--------+ + + + + documented as of this encounter Visit Diagnoses + + | Diagnosis | + + | Hypertension - Primary Unspecified essential hypertension | + + documented in this encounter"
--- OUTSIDE RECORDS SUMMARY | ~2019-10-22 | XMS | Encounter Summary ---
Demographics + + + | Address | [address] | | | [place] [address] | + + + | Home Phone | | + + + | Preferred Language | Unknown | + + + | Marital Status | Single | + + + | Jain Affiliation | Unknown | + + + [...] [place] | | | | | [address] | | + + + + + | Atif Delgadillo | ECON | [place], [place] | | | | | [address] | | + + + + + | Caleb Dawn | ECON | Unknown | | + + + + + Care Team Providers + +------+ + | Care Cleaner Window Name | Role | Phone | + +------+ + PCP | Unavailable | + +------+ + Encounter Details +--------+ + + + + | Date | Type | Department | Care Team | Description | +--------+ + + + + | 01/06/ | Abstract | [facility] | Freddy Sanchez | | | 2017 | | NEPHROLOGY [address] | M, DO [address] | | | | | [address] [place] | [place], [place] [address] | | | | | [place], [place] | [place] | | | | | [address] | [address] | | | | | [phone] | | | +--------+ + + + [...] | Visit | | M, DO [address] | | | | | | [place], [place] [address] | | | | | | [place] | | | | | | [address] | | | | | | | | +--------+ + + + + | 05/20/ | Office | Cardiology | Yumiko Del Valle, | | | 2019 | Visit | | [address] | | | | | | [place], [place] | | | | | | [address] | | | | | | | [...] | EXTERNAL LAB: [facility] | Routin | 01/05/2017 | | Results [...] | EXTERNAL LAB: [facility] | Routin | 01/05/2017 | | Results [...]
--- OUTSIDE RECORDS SUMMARY | ~2019-10-22 | XMS | Encounter Summary ---
Demographics + + + | Address | [address] | | | [place] [address] | + + + | Home Phone [...] [place] | | | | | [address] | | + + + + + | Atif Delgadillo | ECON | [place], [place] | | | | | [address] | | + + + + + | Caleb Dawn | ECON | Unknown | | + + + + + Care Team Providers + +------+ + | Care Power Equipment Mechanics Instructor Name | Role | Phone | [...] + + | 09/04/ | Office | [facility] [place] | Freddy Sanchez | Chronic kidney | | 2012 | Visit | NEPHROLOGY [address] | M, DO [address] | disease, stage III | | | | [address] | [place], [place] [address] | (moderate) (Primary | | | | [place] | [place] | Dx); Unspecified | | | | [address] | [address] | hypertensive kidney | | | | [phone] | | disease with chronic | | [...] to hypertension x20 years. 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 Past Medical History: 1. Type II [...] of umbilical hernia, 1959. 3. Nasal surgery, [facility]; 1972. 4. Lumbar laminectomy, 1985. 5. Tonsillectomy, [...] have had 2 cases of this in [facility] alone, in the last 6 months. 4. [...] him back in 3 months at the [facility], [place], [place]. He will have a CBC, CMP, PO4, PTH, Hbaic, and 24 hr urine 1 week before. CC: Hema Garza MD, [place], [place] documented in thi s encounter Plan of Treatment +--------+ + + + + | Date | Type | Specialty | Care Team | Description | +--------+ + + + + | 03/16/ | Off-Site | Nephrology | Freddy Sanchez | | | 2019 | Visit | | DO [address]ay[address]a [address] | | | | | | [place], [place] [address] | | | | | | [place], [place] | | | | | | [phone] | | | | | | | | +--------+ + + + + | 05/20/ | Office | Cardiology | Yumiko Del Valle, | | | 2019 | Visit | | MD Lupe TYLER | | | | | | [place] | | | | | | [address] | | | | | | | [...] stated as | | uncontrolled(250.40) ([facility]) Type II or unspecified type diabetes mellitus with renal | | manifestations, not stated as uncontrolled | + + | Other and unspecified hyperlipidemia | + + documented in this encounter
--- OUTSIDE RECORDS SUMMARY | ~2019-10-22 | XMS | Encounter Summary ---
Demographics + + + | Address | [address] | | | [place] [address] | + + + | Home Phone | | + + + | Preferred Language | Unknown | + + + | Marital Status | Single | + + + | Scientology Affiliation | Unknown | + + + | Race | Unknown | + + + | Ethnic Group | Unknown | + + + Author + + + | Author | [facility] | | | and [place] | + + + | Organization | [facility] | | | and [place] | + + + | Address | Unknown | + + + | Phone | Unavailable | + + + Support + + + + + | Name | Relationship | Address | Phone | + + + + + | Hi Dawn | ECON | [place] | | | | | [address] | | + + + + + | Atif Delgadillo | ECON | [place], [place] | | | | | [address] | | + + + + + | Caleb Dawn | ECON | Unknown | | + + + + + Care Team Providers + +------+ + | Care Clipper And Turner Name | Role | Phone | + [...] | unspecified | MD [address] | [address] | | | | | type | [place] | [place] | | | | | diabetes | [place] [address] | [address] [place] | | | | | mellitus | [place], | [place], [place] | | | | | with renal | [place] | [address] Phone: | | | | | manifestatio | [address] | [phone] | | | | | ns, not | Phone: | Fax: | | | | | stated as | [phone] | [phone] | | | | | uncontrolled | Fax: | | | | | | [phone] | [phone] | | | | | | (HCC) [...] | +--------+ + + + + | 05/19/ | Off-Site | [facility] [place] | Freddy Sanchez | Unspecified | | 2013 | Visit | NEPHROLOGY [address] | M, DO [address] | hypertensive kidney | | | | [address] | [place], [place] [address] | disease with chronic | | | | [place] | [place] | kidney disease | | | | [address] | [address] | stage I through | | | | [phone] | | stage IV, or | | | | | | unspecified (Primary | | | | | | Dx); Chronic kidney | | | | | [...] as | | | | | | uncontrolled; Other | | | | | | and unspecified | | | | | | [...] + + + | Blood Pressure | 180/94 | 05/19/2014 7:02 PM | | | | | PDT | | + + + + + | Pulse | - | - | | + + + + + | Temperature | 36.8 C (98.2 F) | 05/19/2014 7:02 PM | | | | | PDT [...] | 130 kg (286 lb 9.6 | 05/19/2014 7:02 PM | | | | oz) | PDT | | + + + + + | Height | - | - | | + + + + + | Body Mass Index | 35.82 | 05/05/2014 8:36 AM | | | | | PDT | | + + + + + documented in this encounter Progress Notes Freddy Sanchez, - 05/19/2014 2:23 PM PDT Subjective: NEPHROLOGY Patient ID: Steve Tanner is a 69 y.o. male. HPI Comments: Follow-up for this 69 YO white male with CKD secondary to Type 2 DM, who als o had a DU, found on EGD, 12/18/13, hypertension, hyperlipidemia, DJD of knees, SHPTH, ASCVD , s/p left CEA, 2005, anemia secondary to CKD, and Type 2 DM. Despite today's BP reading, he has a meticulous home BP log which shows readings consistent ly from (122/63 to 145/74). Apparently, he developed a dry cough on lisinopril, and was anisa ropriately switched to losartan by Dr. Garza. Subsequently, he became orthostatic on 50 m g of losartan, and was seen by his Cardiology, BOTTOM BLEACHER, Selene Betancourt, who decreased it to 25 mg, QD and he is feeling great. He is watching a very low salt diet, and walking daily. Outpatient Prescriptions Marked as Taking for the 05/19/14 encounter (Off-Site Visit) with Olayinka Sanchez DO Medication Sig Dispense Refill allopurinol (ZYLOPRIM) 300 mg tablet Take 300 mg by mouth Daily. calcitRIOL (ROCALTROL) 0.5 MCG capsule Take 0.5 mcg by mouth Daily. carvedilol (COREG) 25 mg tablet Take 1 tablet by mouth 2 times daily (with breakfast & dinner). 60 tablet 3 [DISCONTINUED] darbepoetin easton (ARANESP) 60 mcg/mL injection Inject 60 mcg under the s kin Every 30 days. furosemide (LASIX) 40 mg tablet Take 1 tablet by mouth 2 times daily. 60 tablet 6 [DISCONTINUED] HYDROcodone-acetaminophen (NORCO) 10-325 mg per tablet Take 1 tablet by mouth every 6 hours as needed. loratadine-pseudoePHEDrine (CLARITIN-D 12 HOUR) 5-120 mg per tablet Take 1 tablet by mo ut as needed. losartan (COZAAR) 25 mg tablet Take 1 tablet by mouth Daily. 30 tablet 6 mometasone (ELOCON) 0.1 % cream Apply topically Daily. niacin 500 mg tablet Take 500 mg by mouth 2 times daily. [DISCONTINUED] nitroglycerin (NITROSTAT) 0.[address] 0.4 mg under the tongue every 5 minutes as needed. omeprazole (PRILOSEC) 40 MG capsule Take 1 capsule by mouth Daily. 90 capsule 3 sucralfate (CARAFATE) 1 g tablet Take 1 tablet by mouth 4 times daily. 120 tablet 2 terbinafine (LAMISIL) 250 MG tablet Take 250 mg by mouth Daily. Allergies Allergen Reactions Lisinopril Penicillins Rash Objective: There were no vitals taken for this visit. Physical Exam Heart: Regular rate and rhythm with no S3, S4, murmur or rub. Lungs: CTA bilaterally. No rales or wheezes. Abdomen: Soft, flat, no epigastric tenderness, normoactive bowel sounds. Extremities: 1+ edema, no foot ulcers, no clubbing. Lab Results Component Value Date NA 139 05/15/2014 K 4.3 05/15/2014 CL 102 05/15/2014 CO2 29 05/15/2014 BUN 40 05/15/2014 CREEX 1.68* 05/15/2014 EGFREX 40 05/15/2014 GLU 122 05/15/2014 CALCIUM 9.8 05/15/2014 PHOS 3.5 05/15/2014 PTH 112.9 05/15/2014 ETS6NLT 5.2 02/12/2014 Lab Results Component Value Date WBCEX 7.2 05/15/2014 HGBEX 13.7 05/15/2014 HCTEX 40.3* 05/15/2014 PLTEX 140 05/15/2014 Lab Results Component Value Date CHOLEX 161 02/12/2014 HDLEX 30.4* 02/12/2014 LDLEX 80 02/12/2014 TRIGEX 253* 02/12/2014 Assessment: 1. CKD Stage 3, secondary to diabetic glomerulosclerosis and HTN--his Scr is minimally inc reased, but relatively stable overall. I would not adjust the meds at this point. 2. Anemia--resolved. 3. H/O PUD, DU, on EGD,12/16/13--resolved. 4. SHPTH--PTH is relatively stable. 6. Type 2 DM--good control. 7. ASCVD/ s/p left CEA, 2005--stable. 8. Hyperlipidemia--stable on Niacin. 9. Hypertension--excellent control by his home BP log. 10. Gout--in remission. Plan: 1. 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 2. I appreciate Selene JARAMILLO's and Dr. Garza's help with his dose titration. The losartan is an excellent choice for its cardioprotective and renoprotective effects. 3. I encouraged Santiago that he is doing an excellent job of maintaining his healthy lifest yle. 4. His DU appears healed and he would like to DC his carafate. I discussed with him that it may be worthwhile to continue the omeprazole 40 mg, QD , exterminator termite and DC the carafate. He is agreeable to this. 5. Will plan to see him back on 09/22/14, at the [facility], [place], [place]. He will have a CBC, CMP, PO4, PTH, Hbaic, and spot Urine Pro/Cr ratio 1 week prior to that. Will defer th e 24 hr urine at that time. CC: Hema JARAMILLO documented in thi s encounter Plan of Treatment +--------+ + + + + | Date | Type | Specialty | Care Team | Description | +--------+ + + + + | 03/16/ | Off-Site | Nephrology | Freddy Sanchez | | | 2019 | Visit | | DO Olayinka [address] [place] [address] | | | | | | [place] [address] | | | | | | [place] | | | | | | [address] | | | | | | | | +--------+ + + + + | 05/20/ | Office | Cardiology | Yuimko Del Valle, | | | 2019 | Visit | | MD Lupe TYLER | | | | | | [place] | | | | | | [address] | | | | | | | | +--------+ + + + + documented as of this encounter Visit Diagnoses + + | Diagnosis | + + | Unspecified hypertensive kidney disease with chronic kidney disease stage I through | | stage IV, or unspecified - Primary | + + | Chronic kidney disease, stage III (moderate) Chronic kidney disease, Stage III | | (moderate) | + + | Type II or unspecified type diabetes mellitus with renal manifestations, not stated as | | uncontrolled | + + | Other and unspecified hyperlipidemia | + + documented in this encounter"
--- OUTSIDE RECORDS SUMMARY | ~2019-10-22 | XMS | Encounter Summary ---
Demographics + + + | Address | [address] | | | [place] [address] | + + + | Home Phone [...] [place] | | | | | [address] | | + + + + + | Atif Delgadillo | ECON | [place] | | | | | [address] | | + + + + + | Caleb Dawn | ECON | Unknown | | + + + + + Care Team Providers + +------+ + | Care Drapery Counselor Name | Role | Phone | + +------+ + | Anoop Moyer MD | PCP | | + +------+ + Encounter Details +--------+ + + + + | Date | Type | Department | Care Team | Description | +--------+ + + + + | 12/03/ | Orders Only | [facility] [place] | [place], | Chronic kidney | | 2019 | | NEPHROLOGY [address] | [address]LLA [address] | disease, stage III | | | | [address] [place] [address] | [address], [place] | (moderate) (HCC) | | | | [place] | [address] [place] | (Primary Dx); Type 2 | | | | [address] | [address] | diabetes mellitus | | | | [phone] | | with stage 3 chronic | | | | | | kidney disease, | | | | | | unspecified whether | | | | | | mcfp insulin | | | | | | use ([facility]); | | | | | | Hyperlipidemia, [...] encounter Progress Notes Merary Arciniega RN - 12/03/2018 4:17 PM PSTLabs for nephrology appt on 12/31/18 sent to In [facility]. documented in this en counter Plan of Treatment +--------+ + + + + | Date | Type | Specialty | Care Team | Description | +--------+ + + + + | 03/16/ | Off-Site | Nephrology | Freddy Sanchez | | 2019 | Visit | | DO Olayinka [address] [place] [address] | | | | | | [place] | | | | | | [place] | | | | | | [id number] | | | | | | | | +--------+ + + + + | 05/20/ | Office | Cardiology | Yumiko Del Valle, | | | 2019 | Visit | | MD Lupe TYLER | | | | | | [place] | | | | | | [phone] | | | | | | | [...]
--- OUTSIDE RECORDS SUMMARY | ~2019-10-22 | XMS | Encounter Summary ---
Demographics + + + | Address | [address] | | | [place] [address] | + + + | Home Phone | | + + + | Preferred Language | Unknown | + + + | Marital Status | Single | + + + | Restorationism Affiliation | Unknown | + + + | Race | Unknown | + + + | Ethnic Group | Unknown | + + + Author + + + | Author | [facility] | | | and [place] | + + + | Organization | [facility] | | | and [place] | + + + | Address | Unknown | + + + | Phone | Unavailable | + + + Support + + + + + | Name | Relationship | Address | Phone | + + + + + | Hi Dawn | ECON | [place] | | | | | [address] | | + + + + + | Atif Delgadillo | ECON | [place], [place] | | | | | [address] | | + + + + + | Caleb Dawn | ECON | Unknown | | + + + + + Care Team Providers + +------+ + | Care Sap Bpc Developer Name | Role | Phone | [...] + + | 02/17/ | Telephone | [facility] | Freddy Sanchez | Nephrology | | 2015 | | NEPHROLOGY [address] | M, DO [address] [place] | Appointment | | | | [address] [facility] | [place], [facility] 100 | | | | | [place], [place] | [place], [place] | | | | | [address] | [address] | | | | | [phone] | | | +--------+ + + + [...] 2019 | Visit | | DO Olayinka [address] [place] [address] | | | | | | [place] [address] | | | | | | [place] | | | | | | [address] | | | | | | | | +--------+ + + + + | 05/20/ | Office | Cardiology | Yumiko Del Valle, | | | 2019 | Visit | | MD Lupe TYLER | | | | | | [place] | | | | | | [address] | | | | | | | | +--------+ + + + + documented as of this encounter Visit Diagnoses Not on filedocumented in this encounter"
--- OUTSIDE RECORDS SUMMARY | ~2019-10-22 | XMS | Encounter Summary ---
Demographics + + + | Address | [address] | | | [place] [address] | + + + | Home Phone | | + + + | Preferred Language | Unknown | + + + | Marital Status | Single | + + + | Presybeterian Affiliation | Unknown | + + + | Race | Unknown | + + + | Ethnic Group | Unknown | + + + Author + + + | Author | [facility] | | | and [place] | + + + | Organization | [facility] | | | and [place] | + + + | Address | Unknown | + + + | Phone | Unavailable | + + + Support + + + + + | Name | Relationship | Address | Phone | + + + + + | Hi Dawn | ECON | [place] | | | | | [address] | | + + + + + | Atif Delgadillo | ECON | [place], [place] | | | | | [address] | | + + + + + | Caleb Dawn | ECON | Unknown | | + + + + + Care Team Providers + +------+ + | Care Stator Plate Washer Name | Role | Phone | + +------+ + PCP | Unavailable | + +------+ + Encounter Details +--------+ + + + + | Date | Type | Department | Care Team | Description | +--------+ + + + + | 03/24/ | Orders Only | [facility] [place] | Freddy Sanchez | Chronic kidney | | 2014 | | NEPHROLOGY [address] | M, DO [address] [place] | disease, stage III | | | | [address] [place] [address] | [place], [place] [address] | (moderate) (Primary | | | | [place], [place] | [place], [place] | Dx); Hyperlipidemia; | | | | [address] | [address] | Essential | | | | [phone] | | hypertension; Type | | | | | | II or unspecified | | | | | | type diabetes | | | | | | mellitus with renal | | | | | [...] encounter Progress Notes Imani Whitney RN - 03/24/2015 4:20 PM PDTLabs for nephrology appt on 04/20/15 sent to In [facility] documented in this encounter Plan of Treatment +--------+ + + + + | Date | Type | Specialty | Care Team | Description | +--------+ + + + + | 03/16/ | Off-Site | Nephrology | Freddy Sanchez | | | 2019 | Visit | | DO Olayinka [address] [place] [address] | | | | | | [place] [address] | | | | | | [place] | | | | | | [address] | | | | | | | | +--------+ + + + + | 05/20/ | Office | Cardiology | Yumiko Del Valle, | | | 2019 | Visit | | MD Lupe TYLER | | | | | | [place] | | | | | | [phone] | | | | | | | | +--------+ + + + + documented as of this encounter Visit Diagnoses + + | Diagnosis | + + | Chronic kidney disease, stage III (moderate) ([facility]) - Primary Chronic kidney disease, | | Stage III (moderate) | + + | Hyperlipidemia Other and unspecified hyperlipidemia | + + | Essential hypertension Unspecified essential hypertension | + + | Type II or unspecified type diabetes mellitus with renal manifestations, not stated as | | uncontrolled(250.40) ([facility]) 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
--- OUTSIDE RECORDS SUMMARY | ~2019-10-22 | XMS | Encounter Summary ---
Demographics + + + | Address | [address] | | | [place] [address] | + + + | Home Phone [...] + + + | Author | [facility] | | | and [place] | + + + | Organization | [facility] | | | and [place] | + + + | Address | Unknown | + + + | Phone | Unavailable | + + + Support + + + + + | Name | Relationship | Address | Phone | + + + + + | Hi Dawn | ECON | [place] | | | | | [address] | | + + + + + | Atif Delgadillo | ECON | [place], [place] | | | | | [address] | | + + + + + | Caleb Dawn | ECON | Unknown | | + + + + + Care Team Providers + +------+ + | Care Yeast Stacker Name | Role | Phone | + [...] NEPHROLOGY [address] | M, DO [address] [place] | | | | | [address] [place] [address] | [place], [place] [address] | | | | | [place], [place] | [place] | | | | | [address] | [address] | | | | | [phone] | | | +--------+ + + + [...] | Visit | | M, DO [address] [place] | | | | | | [place], [place] [address] | | | | | | [place] | | | | | | [address] | | | | | | | | +--------+ + + + + | 05/20/ | Office | Cardiology | Yumiko Del Valle, | | | 2019 | Visit | | [address] | | | | | | [place], [place] | | | | | | [address] | | | | | | | [...] | | + + External Lab: BUN (10/22/2015) + +--------+ + + + | [...] + +---------+ + + External Lab: AST (10/22/2015) + +--------+ + + + | [...]
--- OUTSIDE RECORDS SUMMARY | ~2019-10-22 | XMS | Encounter Summary ---
Demographics + + + | Address | [address] | | | [place] [address] | + + + | Home Phone [...] [place] | | | | | [address] | | + + + + + | Atif Delgadillo | ECON | [place], [place] | | | | | [address] | | + + + + + | Caleb Dawn | ECON | Unknown | | + + + + + Care Team Providers + +------+ + | Care Armor Reconnaissance Vehicle Crewman Name | Role | Phone | + [...] | kidney | MD [address] | [address] | | | | | disease, | [place] | [place], [place] | | | | | stage 3 | [place] | [address] [place] | | | | | (moderate) | [place], | [place] | | | | | (HCC) | [place] | [address] Phone: | | | | | Hypertension | [address] | [phone] | | | | | , essential | Phone: | Fax: | | | | | Type 2 | [phone] | [phone] | | | | | diabetes | Fax: | | | | | | mellitus | [phone] | | | | | | with [...] | | [address] [place] [address] | [place], [place] [address] | 3 chronic kidney | | | | [place], [place] | [place] | disease, with | | | | [address] | [address] | long-term current | | | | [phone] | | use of insulin (HCC) | [...] Dr. Anoop Moyer, and Endo crinologist in [place], Dr. Winsome Crowder. He denies any new [...] (ELOCON) 0.1 % cream Apply topically Daily. [place]-3 Fatty Acids (FISH OIL) 1200 MG CAPS [...] PHOSEX 4.2 10/03/2017 PTHEX 186.6 (A) 10/03/2017 [id number] 5.1 10/03/2017 Lab Results Component Value Date [...] 4 mo. at the [facility] at [place]. He will have CBC, CMP, PO4, HbA1c, iPTH, Urine Pro/Cr ratio one week prior to that. : Anoop Moyer MD, PhD Winsome Crowder MD, [place], [place] Matheus Gregory MD, [place] , [place] documented in th is encounter Plan of Treatment +--------+ + + + + | Date | Type | Specialty | Care Team | Description | +--------+ + + + + | 03/16/ | Off-Site | Nephrology | Freddy Sanchez | | | 2019 | Visit | | DO [address] | | | | | | [place], [place] [address] | | | | | | [place] | | | | | | [address] | | | | | | | | +--------+ + + + + | 05/20/ | Office | Cardiology | Yumiko Del Valle, | | | 2019 | Visit | | [address] | | | | | | [place] | | | | | | [address] | | | | | | | [...]
--- OUTSIDE RECORDS SUMMARY | ~2019-10-22 | XMS | Encounter Summary ---
Demographics + + + | Address | [address] | | | [place] [address] | + + + | Home Phone [...] [place] | | | | | [address] | | + + + + + | Atif Delgadillo | ECON | [place], [place] | | | | | [address] | | + + + + + | Caleb Dawn | ECON | Unknown | | + + + + + Care Team Providers + +------+ + | Care Stage Set Designer Name | Role | Phone | + [...] [address] | | | | | [place], | [place], | | | | | [place] [address] | [place] [address] | | | | | [phone] | [phone] | | | | | | | [...] | Visit | | DO Olayinka [address] [place] | | | | | | [place] [address] | | | | | | [place] | | | | | | [address] | | | | | | | | +--------+ + + + + | 05/20/ | Office | Cardiology | Yumiko Del Valle, | | | 2019 | Visit | | MD Lupe TYLER | | | | | | [place] | | | | | | [phone] | | | | | | | | +--------+ + + + + documented as of this encounter Visit Diagnoses Not on filedocumented in this encounter"
--- OUTSIDE RECORDS SUMMARY | ~2019-10-22 | XMS | Encounter Summary ---
Demographics + + + | Address | [address] | | | [place] [address] | + + + | Home Phone [...] [place] | | | | | [address] | | + + + + + | Atif Delgadillo | ECON | [place], [place] | | | | | [address] | | + + + + + | Caleb Dawn | ECON | Unknown | | + + + + + Care Team Providers + +------+ + | Care Dirt Bike Mechanic Name | Role | Phone | [...] NEPHROLOGY [address] | M, DO [address] [place] | | | | | [address] [place] [address] | [place], [place] [address] | | | | | [place], [place] | [place] | | | | | [address] | [address] | | | | | [phone] | | | +--------+ + + + [...] 2019 | Visit | | DO Olayinka [facility] | | | | | | [place] | | | | | | [place] | | | | | | [address] | | | | | | | | +--------+ + + + + | 05/20/ | Office | Cardiology | Yumiko Del Valle, | | | 2019 | Visit | | MD Lupe TYLER | | | | | | [place] | | | | | | [phone] | | | | | | | | +--------+ + + + + documented as of this encounter Visit Diagnoses Not on filedocumented in this encounter"
--- OUTSIDE RECORDS SUMMARY | ~2019-10-22 | XMS | Encounter Summary ---
Demographics + + + | Address | [address] | | | [place] [address] | + + + | Home Phone | | + + + | Preferred Language | Unknown | + + + | Marital Status | Single | + + + | Adventist Affiliation | Unknown | + + + [...] [place] | | | | | [address] | | + + + + + | Atif Delgadillo | ECON | [place], [place] | | | | | [address] | | + + + + + | Caleb Dawn | ECON | Unknown | | + + + + + Care Team Providers + +------+ + | Care Ornament Setter Name | Role | Phone | [...] | unspecified | MD [address] | [address] | | | | | type | [place] | [place] | | | | | diabetes | [place] | [address] [place] | | | | | mellitus | [place], | [place], [place] | | | | | with renal | [place] | [address] Phone: | | | | | manifestatio | [address] | [phone] | | | | | ns, not | Phone: | Fax: | | | | | stated as | [phone] | [phone] | | | | | uncontrolled | Fax: | | | | | | [phone] | [phone] | | | | | | (HCC) [...] | +--------+ + + + + | 09/22/ | Off-Site | [facility] [place] | Freddy Sanchez | Type II or | | 2013 | Visit | NEPHROLOGY [address] | M, DO [address] | unspecified type | | | | [address] [place] | [place], [place] [address] | diabetes mellitus | | | | [place] | [place] | with renal | | | | [address] | [address] | manifestations, not | | | | [phone] | | stated as | | | [...] + + + | Blood Pressure | 170/90 | 09/22/2014 1:26 PM | | | | | PST | | + + + + + | Pulse | - | - | | + + + + + | Temperature | 36.6 C (97.9 F) | 09/22/2014 1:26 PM | | | | | PST [...] + + + + | Weight | 133.6 kg (294 lb 8.6 | 09/22/2014 1:26 PM | | | | oz) | PST | | + + + + + | Height | - | - | | + + + + + | Body Mass Index | 36.81 | 05/05/2014 8:36 AM | | | | | PDT | | + + + + + documented in this encounter Progress Notes Freddy Sanchez DO - 10/04/2014 3:15 PM PST Subjective: NEPHROLOGY Patient ID: Steve Tanner is a 69 y.o. male. HPI Comments: Follow-up for this 69 YO white male with CKD secondary to Type 2 DM, who als o had a DU, found on EGD, 12/18/13, hypertension, hyperlipidemia, DJD of knees, SHPTH, ASCVD , s/p left CEA, 2005, anemia secondary to CKD, and Type 2 DM. He admits that he has not been walking as much, and not as diligent with his diet , as prev iously. Denies anorexia or increased edema. Outpatient Prescriptions Marked as Taking for the 09/22/14 encounter (Off-Site Visit) with Olayinka Sanchez DO [...] 500 mg by mouth 2 times daily. terbinafine (LAMISIL) 250 MG tablet Take 250 mg by mouth Daily. Allergies Allergen Reactions Lisinopril Penicillins Rash Objective: BP 170/90 | Temp 36.6 C (97.9 F) | Wt 133.6 kg (294 lb 8.6 oz) Physical Exam Heart: Regular rate and rhythm with no S3, S4, murmur or rub. Lungs: CTA bilaterally. No rales or wheezes. Abdomen: Soft, flat, no epigastric tenderness, normoactive bowel sounds. Extremities: 1-2+ edema, (+) long dystrophic toenails, several nails at both feet are near ly ingrown?, no foot ulcers, no clubbing. Lab Results Component Value Date NAEX 139 09/17/2014 KEX 4.0 09/17/2014 CLEX 103 09/17/2014 CO2EX 25 09/17/2014 BUNEX 54 09/17/2014 CREEX 2.05 09/17/2014 EGFREX 32 09/17/2014 GLUEX 172 09/17/2014 PHOSEX 3.2 09/17/2014 MXR3IOX 6.3* 07/25/2014 Lab Results Component Value Date WBCEX 5.4 09/17/2014 HGBEX 13.1 09/17/2014 HCTEX 38.1 09/17/2014 PLTEX 131 09/17/2014 Lab Results Component Value Date CHOLEX 157 07/25/2014 HDLEX 24.4* 07/25/2014 LDLEX 74 07/25/2014 TRIGEX 295* 07/25/2014 Urine Pro/Cr ratio = 0.104 Assessment: 1. CKD Stage 3, secondary to diabetic glomerulosclerosis and HTN--GFR is slowly worsening with time? 2. H/O PUD, DU, on EGD,12/16/13--resolved. 3. SHPTH--PTH is relatively stable. 4. Type 2 DM--good control. 5. ASCVD/ s/p left CEA, 2005--stable. 6. Hyperlipidemia--stable on Niacin. 7. Hypertension--suboptimal control. 8. Gout--in remission. Plan: 1. Will have him increase his lasix to 80 mg, BID to target his BP < 130/80 mmHg. Current ly, he appears volume expanded on PE. 2. I encouraged Santiago to get back to his daily walking routine to help with his BP, weight , and minimize his CV risk. 3. I discussed that he needs to get in touch with a DPM, ALYCE to trim his toenails, and a foot check, to hopefully avoid a deep seated foot infection? 4. If the BP is not improved after he is volume contracted, then will increase the losarta n at that point. 5. Will plan to see her back in 2 months with a CBC, CMP, P04, PTH, HbA1c, and 24-hour uri ne collection one week prior to that. CC: Hema Ahn DPM documented in thi s encounter Plan of Treatment +--------+ + + + + | Date | Type | Specialty | Care Team | Description | +--------+ + + + + | 03/16/ | Off-Site | Nephrology | Freddy Sanchez | | | 2019 | Visit | | DO [address]ay[address]a [address] | | | | | | [place] [...] [place] | | | | | | [address] | | | | | | | [...]
--- OUTSIDE RECORDS SUMMARY | ~2019-10-22 | XMS | Encounter Summary ---
Demographics + + + | Address | [address] | | | [place] [address] | + + + | Home Phone [...] [place] | | | | | [address] | | + + + + + | Atif Delgadillo | ECON | [place], [place] | | | | | [address] | | + + + + + | Caleb Dawn | ECON | Unknown | | + + + + + Care Team Providers + +------+ + | Care Ribbon Inker Name | Role | Phone | + [...] NEPHROLOGY [address] | M, DO [address] | | | | | [address] [place] [address] | [place], [place] [address] | | | | | [place], [place] | [place] | | | | | [address] | [address] | | | | | [phone] | | | +--------+ + + + [...] | Visit | | M, DO [address] | | | | | | [place], [place] | | | | | | [place] | | | | | | [address] | | | | | | | | +--------+ + + + + | 05/20/ | Office | Cardiology | Yumiko Del Valle, | | | 2019 | Visit | | [address] | | | | | | [place], [place] | | | | | | [address] | | | | | | | [...] + | [facility] | [address] | [place] | [phone] | | [facility] | | [address] | | | - LABORATORY | | | | + + + + + | [facility] | [address] | [place] | | | [facility] | | [address] | | | - LABORATORY | | [...] | | | LAB | | | Ghanaian, | | | | | | External [...]
--- OUTSIDE RECORDS SUMMARY | ~2019-10-22 | XMS | Encounter Summary ---
Demographics + + + | Address | [address] | | | [place] [address] | + + + | Home Phone | | + + + | Preferred Language | Unknown | + + + | Marital Status | Single | + + + | Catholic Affiliation | Unknown | + + + | Race | Unknown | + + + | Ethnic Group | Unknown | + + + Author + + + | Author | [facility] | | | and [place] | + + + | Organization | [facility] | | | and [place] | + + + | Address | Unknown | + + + | Phone | Unavailable | + + + Support + + + + + | Name | Relationship | Address | Phone | + + + + + | Hi Dawn | ECON | [place] | | | | | [address] | | + + + + + | Atif Delgadillo | ECON | [place] | | | | | [address] | | + + + + + | Caleb Dawn | ECON | Unknown | | + + + + + Care Team Providers + +------+ + | Care Service Tech Name | Role | Phone | [...] | [address] [place] [address] | [address], [place] | (moderate) (HCC) | | | | [place] | 100 [place] | (Primary Dx); Type 2 | | | | [address] | [address] | diabetes mellitus | | | | [phone] | | with stage 3 chronic | | | | | | kidney disease, | | | | | | unspecified whether | | | | | | mcc insulin | | | | | | use ([facility]); | | | | | | Hyperlipidemia, [...] nephrology appt on 12/31/18 sent to In [facility]. documented in this en counter Plan of Treatment +--------+ + + + + | Date | Type | Specialty | Care Team | Description | +--------+ + + + + | 03/16/ | Off-Site | Nephrology | Freddy Snachez | | 2019 | Visit | | DO Olayinka [address] [place] [address] | | | | | | [place] | | | | | | [place] | | | | | | [id number] | | | | | | | | +--------+ + + + + | 05/20/ | Office | Cardiology | Yumiko Del Valle, | | | 2019 | Visit | | MD Lupe TYLER | | | | | | [place] | | | | | | [phone] | | | | | | | [...]
--- OUTSIDE RECORDS SUMMARY | ~2019-10-22 | XMS | Encounter Summary ---
Demographics + + + | Address | [address] | | | [place] [address] | + + + | Home Phone [...] [place] | | | | | [address] | | + + + + + | Atif Delgadillo | ECON | [place] | | | | | [address] | | + + + + + | Caleb Dawn | ECON | Unknown | | + + + + + Care Team Providers + +------+ + | Care Senior Gis Analyst Name | Role | Phone | [...] | kidney | MD [address] | [address] | | | | | disease, | [place] | [place], [place] | | | | | stage 3 | [place] | [address] [place] | | | | | (moderate) | [place] | [place] | | | | | (HCC) | [place] | [address] Phone: | | | | | Hypertension | [address] | [phone] | | | | | , essential | Phone: | Fax: | | | | | Type 2 | [phone] | [phone] | | | | | diabetes | Fax: | | | | | | mellitus | [phone] | | | | | | with stage 3 | | | | | | | chronic | | | | | | | kidney | | | | | | | disease | | | | | | | (HCC) | | | | | | | Procedures | | | | | | | [facility] OFFICE | | | | | | [...] | 06/25/ | Off-Site | [facility] [place] | Freddy Sanchez | Type 2 diabetes | | 2018 | Visit | NEPHROLOGY [address] | M, DO [address] | mellitus with stage | | | | [address] [place] | [place], [place] | 3 chronic kidney | | | | [place], [place] | [place], [place] | disease, without | | | | [address] | [address] | long-term current | | | | [phone] | | use of insulin (HCC) | [...] (ELOCON) 0.1 % cream Apply topically Daily. [place]-3 Fatty Acids (FISH OIL) 1200 MG CAPS [...] PHOSEX 4.2 06/20/2018 PTHEX 157.7 (A) 06/20/2018 QDT1LWH 5.7 06/20/2018 Lab Results Component Value Date [...] Anoop Moyer MD, PhD Winsome Crowder MD, [place], [place] Matheus Gregory MD, [place] , [place] documented in th is encounter Plan of Treatment +--------+ + + + + | Date | Type | Specialty | Care Team | Description | +--------+ + + + + | 03/16/ | Off-Site | Nephrology | Freddy Sanchez | | 2019 | Visit | | DO Olayinka [address] | | | | | | [place] [address] | | | | | | [place] | | | | | | [id number] | | | | | | | | +--------+ + + + + | 05/20/ | Office | Cardiology | Yumiko Del Valle, | | 2019 | Visit | | MD Lupe TYLER | | | | | | [place] | | | | | | [address] | | | | | | | [...]
--- OUTSIDE RECORDS SUMMARY | ~2019-10-22 | XMS | Encounter Summary ---
Demographics + + + | Address | [address] | | | [place] [address] | + + + | Home Phone [...] [place] | | | | | [address] | | + + + + + | Atif Delgadillo | ECON | [place], [place] | | | | | [address] | | + + + + + | Caleb Dawn | ECON | Unknown | | + + + + + Care Team Providers + +------+ + | Care Riverboat Master Name | Role | Phone | + [...] NEPHROLOGY [address] | M, DO [address] | | | | | [address] [place] [address] | [place], [place] [address] | | | | | [place], [place] | [place] | | | | | [address] | [address] | | | | | [phone] | | | +--------+ + + + [...] | Visit | | M, DO [address] | | | | | | [place] [address] | | | | | | [place] | | | | | | [address] | | | | | | | | +--------+ + + + + | 05/20/ | Office | Cardiology | Yumiko Del Valle, | | | 2019 | Visit | | MD Lupe TYLER | | | | | | [place] [facility] [place] | | | | | | [address] | | | | | | | | +--------+ + + + + documented as of this encounter Procedures + +--------+ + + + | Procedure Name | Priori | Date/Time | Associated Diagnosis | Comments | | | ty | | | | + +--------+ + + + | EXTERNAL LAB: EPIFANIO | Routin | 08/30/2013 | | Results for this | | | e | | | procedure are in the | | | | | | results section. | + +--------+ + + + | EXTERNAL LAB: [facility] | Routin | 08/30/2013 | | Results [...] | | | LAB | | | [place], | | | | | | External [...]
--- OUTSIDE RECORDS SUMMARY | ~2019-10-22 | XMS | Encounter Summary ---
Demographics + + + | Address | [address] | | | [place] [address] | + + + | Home Phone [...] [place] | | | | | [address] | | + + + + + | Atif Delgadillo | ECON | [place], [place] | | | | | [address] | | + + + + + | Caleb Dawn | ECON | Unknown | | + + + + + Care Team Providers + +------+ + | Care Environmental Protection Economist Name | Role | Phone | + +------+ + PCP | Unavailable | + +------+ + Encounter Details +--------+ + + + + | Date | Type | Department | Care Team | Description | +--------+ + + + + | 12/14/ | Hospital | [facility] | William Marcano, | | | 2013 - | Encounter | MED [facility] SUR[facility] | [address] | | | | | [address] | [place] | | | 12/19/ | | [place] [address] | [address] | | | 2013 | | [phone] | | | | | | | Freddy Sanchez | | | | | | DO [address] | | | | | | [address] | | | | | | [place] | | | | | | [address] | | | | | | | [...] Freddy Sanchez DO - 12/19/2013 2:02 [place] [address] Patient Name: SERGEI ESPANA Amy Provider: Freddy Sanchez DO Unit #: [id number] Locat ion: 3ES : 1945 ADMISSION DATE: [...] spoke to Dr. Hema Garza, his primary commander internal affairs. He is agreeable to co-sign his EPO order so that he can get subcu EPO at day surgery at [facility] as I am not on staff there. The dose will be 10,000 SQ weekly to target his hemoglobin 10-11 mg/dL. He is going to have weekly lab at [facility]. I will have a followup appointm ent with him on 12/23/2013. He is going to have a followup appointment with Dr. Garza on 0 01/06/2014. Also, long-term he had been following with Vascular Surgery Department at [facility] and he is agreeable with following up at the Cardiology department here at [facility]. He has an appointment to see Dr. [...] was 102. Weight at the time of mvovwelxt=826 kg. CONDITION ON DISCHARGE: Improved. I greatly appreciate Dr. Josef English and Dr. Logan Baca's help with Mr. Espana's ca se. I appreciate Dr. Garza's help with his outpatient EPO injections. DICTATED BY: Freddy Sanchez DO Nephrology JOB #: [id number] EXT JOB #:[id number] cc: MD Josef Zavala MD Suwong Wongsuwan, [...] | | | | | | (moderate) ([facility]), | | | | | | | [...] | | | | | | (moderate) ([facility]), | | | | | | | [...] | | | | | | | ([facility]), Other and | | | | | [...] | Visit | | M, DO [address] | | | | | | [address] | | | | | | [place] | | | | | | [address] | | | | | | | | +--------+ + + + + | 05/20/ | Office | Cardiology | Yumiko Del Valle, | | | 2020 | Visit | | MD [address] | | | | | | [place] | | | | | | [address] | | | | | | | [...] + | [facility] | [address] | [place] | [phone] | | [facility] | | [address] | | | - LABORATORY | | | | + + + + + | [facility] | [address] | [place] | | | [facility] | | [address] | | | - LABORATORY | | [...] | | POC | | | [facility] | | | | | [...] + | [facility] | [address] | [place] | [phone] | | [facility] | | [address] | | | - LABORATORY | | | | + + + + + | [facility] | [address] | [place] | | | [facility] | | [address] | | | - LABORATORY | | [...] | | POC | | | [facility] | | | | | [...] + | [facility] | [address] | [place], [place] | [phone] | | [facility] | | [address] | | | - LABORATORY | | | | + + + + + | [facility] | [address] | [place], [place] | | | [facility] | | [address] | | | - LABORATORY | | [...] [address] | [place] | [phone] | | [facility] | | [address] | | | - LABORATORY | | | | + + + + + | [facility] | [address] | [place] | | | [facility] | | [address] | | | - LABORATORY | | [...] | | POC | | | [facility] | | | | | [...] + | [facility] | [address] | [place] | [phone] | | [facility] | | [address] | | | - LABORATORY | | | | + + + + + | [facility] | [address] | [place], [place] | | | [facility] | | [address] | | | - LABORATORY | | [...] + | [facility] | [address] | [place] | [phone] | | [facility] | | [address] | | | - LABORATORY | | | | + + + + + | [facility] | [address] | [place] | | | [facility] | | [address] | | | - LABORATORY | | [...] [address] | [place] | [phone] | | [facility] | | [address] | | | - LABORATORY | | | | + + + + + | [facility] | [address] | [place] | | | [facility] | | [address] | | | - LABORATORY | | [...] | + + + + + | [facility] | [address] | [place], [place] | [phone] | | [facility] | | [address] | | | - LABORATORY | | | | + + + + + | [facility] | [address] | [place], [place] | | | [facility] | | [address] | | | - LABORATORY | | | | + + + + + NM Nuclear Stress Test (Vasodilator) (12/17/2013 1:07 PM PST) + + | Specimen | + + | | + + + + + | Narrative | Performed At | + + + | [facility] | [place] | | Department [address] [facility], [place] | [facility] | | [ rep ct street1+2] [ rep [place] | | [facility]] Signed | - IMAGING | | | | | Patient Name: SERGEI ESPANA | | | Physician: KAILEY : 1945 Age: 68 Sex: M Unit | | | #: [id number] Exam Date: 12/17/13 Location: | | | 3ES 321-1 Report #: [id number] Page: | | | %(RAD)RES..mtdd.print.filter("pg") of %(RAD) | | | RES..mtdd.print.filter("tpg") | | | | | | Accession Number: [id number] | | | REGADENOSON SESTAMIBI STRESS, 12/17/2013 [...] Transcribed | | | Date/Time: 12/17/2013 13:39 Loan Broker: | | | <<Signature on File>> | | | Suwong | | | MD Phuong [facility] FASE12/17/13 5318 <Electronically signed by | | | Logan Baca MD, [facility], [facility], FASE, FASNC> Logan | | | MD Phuong [facility] FASE 12/17/13 1307 Loan Broker: [employer] | | | Foqbpaktpoujg97/28/14 5384 Freddy Sanchez DO | | | | | + + + + + + + + | Performing | Address | City/State/Zipcode | Phone Number | | Organization | | | | + + + + + | [facility] | [address] | [place] | [phone] | | [facility] | | [address] | | | - IMAGING | | [...] + | [facility] | [address] | [place] | [phone] | | [facility] | | [address] | | | - LABORATORY | | | | + + + + + | [facility] | [address] | [place] | | | [facility] | | [address] | | | - LABORATORY | | [...] [address] | [place] | [phone] | | [facility] | | [address] | | | - LABORATORY | | | | + + + + + | [facility] | [address] | [place] | | | [facility] | | [address] | | | - LABORATORY | | [...] + | [facility] | [address] | [place] | [phone] | | [facility] | | [address] | | | - LABORATORY | | | | + + + + + | [facility] | [address] | [place] | | | [facility] | | [address] | | | - LABORATORY | | [...] | | Volume | | | [facility] | | [...] + | [facility] | [address] | [place] | [phone] | | [facility] | | [address] | | | - LABORATORY | | | | + + + + + | [facility] | [address] | [place], [place] | | | [facility] | | [address] | | | - LABORATORY | | [...] + | [facility] | [address] | [place], [place] | [phone] | | [facility] | | [address] | | | - LABORATORY | | | | + + + + + | [facility] | [address] | [place], [place] | | | [facility] | | [address] | | | - LABORATORY | | [...] [address] | [place] | [phone] | | [facility] | | [address] | | | - LABORATORY | | | | + + + + + | [facility] | [address] | [place] | | | [facility] | | [address] | | | - LABORATORY | | [...] + | [facility] | [address] | [place] | [phone] | | [facility] | | [address] | | | - LABORATORY | | | | + + + + + | [facility] | [address] | [place] | | | [facility] | | [address] | | | - LABORATORY | | [...] The | | | | | | [employer] | | | | | [...] + + | Performing | Address | City/State/[facility] Cent[facility] | Phone Number | | Organization | | | | + + + + + | [facility] | [address] | [place], [place] | [phone] | | [facility] | | [address] | | | - LABORATORY | | | | + + + + + | [facility] | [address] | [place], [place] | | | [facility] | | [address] | | | - LABORATORY | | [...] | CONSISTENT WITH PREVIOUS | gm/dL | [facility] | | | | RESULTS | | MEDICAL | | | | | | CENTER - | | | | | | LABORATORY | | + + + + + + | Hematocrit | 21.6 (L) | 40.0 - 51.0 % | [facility] | | | | | | [facility] | | | | | | MEDICAL [...] | + + + + + | [facility] | [address] | [place] | [phone] | | [facility] | | [address] | | | - LABORATORY | | | | + + + + + | [facility] | [address] | [place] | | | [facility] | | [address] | | | - LABORATORY | | [...] + | [facility] | [address] | [place] | [phone] | | [facility] | | [address] | | | - LABORATORY | | | | + + + + + | [facility] | [address] | [place], [place] | | | [facility] | | [address] | | | - LABORATORY | | [...] [address] | [place] | [phone] | | [facility] | | [address] | | | - LABORATORY | | | | + + + + + | [facility] | [address] | [place] | | | [facility] | | [address] | | | - LABORATORY | | [...] + | [facility] | [address] | [place] | [phone] | | [facility] | | [address] | | | - LABORATORY | | | | + + + + + | [facility] | [address] | [place] | | | [facility] | | [address] | | | - LABORATORY | | [...] + | [facility] | [address] | [place] | [phone] | | [facility] | | [address] | | | - LABORATORY | | | | + + + + + | [facility] | [address] | [place], [place] | | | [facility] | | [address] | | | - LABORATORY | | | | + + + + + ECHO Complete (12/16/2013 6:50 AM PST) + + | Specimen | + + | | + + + + + | Narrative | Performed At | + + + | [facility] | [place] | | Department [address], [place] | [facility] | | [ rep ct street1+2] [ rep ct city | [facility] | | st zip] Signed | - IMAGING | | | | | Patient Name: SERGEI ESPANA | | | Physician: KAILEY : 1945 Age: 68 Sex: M Unit | | | #: [id number] Exam Date: 12/15/13 Location: | | | [facility] 454-1 Report #: [id number] Page: | | | %(RAD)RES..mtdd.print.filter("pg") of %(RAD) | | | RES..mtdd.print.filter("tpg") | | | | | | Accession Number: [id number] | | | E C H O C A R D I O G R A P H Y R E P O R T | | | HEIGHT: 75" WEIGHT: 275# | | | QUALITY LIAISON: GINGER REFERRING DR: CHUCK ERWIN DR: | [...] Transcribed Date/Time: 12/16/2013 | | | 07:14 Loan Broker: <<Signature on | | | File>> | | | Suwong | | | MD Phuong [facility] FASE12/16/13812 <Electronically signed by | | | Logan Baca MD, [facility], FACP, FASE, FASNC> Logan | | | MD Phuong [facility] 12/16/13 0650 Loan Broker: [employer] | | | [id number]/27/14713 Freddy Sanchez DO | | | | | + + + + + + + + | Performing | Address | City/State/Zipcode | Phone Number | | Organization | | | | + + + + + | [facility] | [address] | [place] | [phone] | | [facility] | | [address] | | | - IMAGING | | [...] [address] | [place] | [phone] | | [facility] | | [address] | | | - LABORATORY | | | | + + + + + | [facility] | [address] | [place] | | | [facility] | | [address] | | | - LABORATORY | | [...] The | | | | | | [employer] | | | | | [...] + | [facility] | [address] | [place] | [phone] | | [facility] | | [address] | | | - LABORATORY | | | | + + + + + | [facility] | [address] | [place], [place] | | | [facility] | | [address] | | | - LABORATORY | | [...] + | [facility] | [address] | [place], [place] | [phone] | | [facility] | | [address] | | | - LABORATORY | | | | + + + + + | [facility] | [address] | [place], [place] | | | [facility] | | [address] | | | - LABORATORY | | [...] | | POC | | | [facility] | | | | | [...] [address] | [place] | [phone] | | [facility] | | [address] | | | - LABORATORY | | | | + + + + + | [facility] | [address] | [place] | | | [facility] | | [address] | | | - LABORATORY | | [...] | + + + + + | [facility] | [address] | [place] | [phone] | | [facility] | | [address] | | | - LABORATORY | | | | + + + + + | [facility] | [address] | [place], [place] | | | [facility] | | [address] | | | - LABORATORY | | [...] + | [facility] | [address] | [place] | [phone] | | [facility] | | [address] | | | - LABORATORY | | | | + + + + + | [facility] | [address] | [place], [place] | | | [facility] | | [address] | | | - LABORATORY | | | | + + + + + XR Chest AP Portable (12/15/2013 12:53 PM PST) + + | Specimen | + + | | + + + + + | Narrative | Performed At | + + + | [facility] | [place] | | Department [address], [place] | [place] | | [ rep ct street1+2] [ rep ct [facility] | | [facility]] Signed | - IMAGING | | | | | Patient Name: SERGEI ESPANA | | | Physician: KAILEY : 1945 Age: 68 Sex: M Unit | | | #: [id number] Exam Date: 12/14/13 Location: | | | [facility] 454-1 Report #: [id number] Page: | | | %(RAD)RES..mtdd.print.filter("pg") of %(RAD) | | | RES..mtdd.print.filter("tpg") | | | | | | Accession Number: [id number] | | | CHEST PORTABLE, 12/15/2013 CLINICAL [...] Transcribed Date/Time: 12/15/2013 15:27 | | | Loan Broker: <<Signature on File>> | | | | | | Kai Gomez MD12/15/13 1612 <Electronically signed by Kai Gomez | | | MD> Kai Gomez MD 12/15/13 1253 Loan Broker: | | | Simplist Tloicuwlboeww29/26/14 1527 Freddy Sanchez, | | | DO | | + + + + + + + + | Performing | Address | City/State/Zipcode | Phone Number | | Organization | | | | + + + + + | [facility] | [address] | [place] | [phone] | | [facility] | | [address] | | | - IMAGING | | [...] + | [facility] | [address] | [place], [place] | [phone] | | [facility] | | [address] | | | - LABORATORY | | | | + + + + + | [facility] | [address] | [place], [place] | | | [facility] | | [address] | | | - LABORATORY | | [...] | [facility] | | | | [facility] | | MEDICAL | | | [...] The | | | | | | [employer] | | | | | [...] + | [facility] | [address] | [place], [place] | [phone] | | [facility] | | [address] | | | - LABORATORY | | | | + + + + + | [facility] | [address] | [place], [place] | | | [facility] | | [address] | | | - LABORATORY | | [...] + | [facility] | [address] | [place], [place] | [phone] | | [facility] | | [address] | | | - LABORATORY | | | | + + + + + | [facility] | [address] | [place], [place] | | | [facility] | | [address] | | | - LABORATORY | | [...] [address] | [place] | [phone] | | [facility] | | [address] | | | - LABORATORY | | | | + + + + + | [facility] | [address] | [place] | | | [facility] | | [address] | | | - LABORATORY | | [...] + | [facility] | [address] | [place], [place] | [phone] | | [facility] | | [address] | | | - LABORATORY | | | | + + + + + | [facility] | [address] | [place], [place] | | | [facility] | | [address] | | | - LABORATORY | | [...] + | [facility] | [address] | [place], [place] | [phone] | | [facility] | | [address] | | | - LABORATORY | | | | + + + + + | [facility] | [address] | [place] | | | [facility] | | [address] | | | - LABORATORY | | [...] + | [facility] | [address] | [place] | [phone] | | [facility] | | [address] | | | - LABORATORY | | | | + + + + + | [facility] | [address] | [place] | | | [facility] | | [address] | | | - LABORATORY | | [...] | [facility] | | | | [facility] | | MEDICAL | | | [...] The | | | | | | [employer] | | | | | [...] + | [facility] | [address] | [place] | [phone] | | [facility] | | [address] | | | - LABORATORY | | | | + + + + + | [facility] | [address] | [place] | | | [facility] | | [address] | | | - LABORATORY | | [...] + | [facility] | [address] | [place] | [phone] | | [facility] | | [address] | | | - LABORATORY | | | | + + + + + | [facility] | [address] | [place] | | | [facility] | | [address] | | | - LABORATORY | | | | + + + + + Culture, MRSA (12/14/2013 2:03 PM PST) + + | Specimen | + + | | + + + + + + + | Performing | Address | City/State/Zipcode | Phone Number | | Organization | | | | + + + + + | [facility] | [address] | [place] | [phone] | | [facility] | | [address] | | | - LABORATORY | | [...] + | [facility] | [address] | [place], [place] | [phone] | | [facility] | | [address] | | | - LABORATORY | | | | + + + + + | [facility] | [address] | [place], [place] | | | [facility] | | [address] | | | - LABORATORY | | [...] [address] | [place] | [phone] | | [facility] | | [address] | | | - LABORATORY | | | | + + + + + | [facility] | [address] | [place] | | | [facility] | | [address] | | | - LABORATORY | | [...] + | [facility] | [address] | [place], [place] | [phone] | | [facility] | | [address] | | | - LABORATORY | | | | + + + + + | [facility] | [address] | [place], [place] | | | [facility] | | [address] | | | - LABORATORY | | [...] + | [facility] | [address] | [place] | [phone] | | [facility] | | [address] | | | - LABORATORY | | | | + + + + + | [facility] | [address] | [place] | | | [facility] | | [address] | | | - LABORATORY | | [...] + + + | UNIT # | [id number] | | [facility] | | | | [...] + | [facility] | [address] | [place] | [phone] | | [facility] | | [address] | | | - LABORATORY | | | | + + + + + | [facility] | [address] | [place] | | | [facility] | | [address] | | | - LABORATORY | | [...] + + + | UNIT # | [id number] | | [facility] | | | | [...] + | [facility] | [address] | [place] | [phone] | | [facility] | | [address] | | | - LABORATORY | | | | + + + + + | [facility] | [address] | [place] | | | [facility] | | [address] | | | - LABORATORY | | [...] + + + | UNIT # | [id number] | | [facility] | | | | [...] + | [facility] | [address] | [place], [place] | [phone] | | [facility] | | [address] | | | - LABORATORY | | | | + + + + + | [facility] | [address] | [place], [place] | | | [facility] | | [address] | | | - LABORATORY | | [...] + + + | UNIT # | [id number] | | [facility] | | | | [...] + | [facility] | [address] | [place] | [phone] | | [facility] | | [address] | | | - LABORATORY | | | | + + + + + | [facility] | [address] | [place] | | | [facility] | | [address] | | | - LABORATORY | | [...] + + + | UNIT # | [id number] | | [facility] | | | | [...] + | [facility] | [address] | [place], [place] | [phone] | | [facility] | | [address] | | | - LABORATORY | | | | + + + + + | [facility] | [address] | [place], [place] | | | [facility] | | [address] | | | - LABORATORY | | [...] [address] | [place] | [phone] | | [facility] | | [address] | | | - LABORATORY | | | | + + + + + | [facility] | [address] | [place] | | | [facility] | | [address] | | | - LABORATORY | | [...] | [facility] | | | | [facility] | | MEDICAL | | | [...] + | [facility] | [address] | [place], [place] | [phone] | | [facility] | | [address] | | | - LABORATORY | | | | + + + + + | [facility] | [address] | [place], [place] | | | [facility] | | [address] | | | - LABORATORY | | [...] + | [facility] | [address] | [place] | [phone] | | [facility] | | [address] | | | - LABORATORY | | | | + + + + + | [facility] | [address] | [place] | | | [facility] | | [address] | | | - LABORATORY | | [...] The | | | | | | [employer] | | | | | [...] + | [facility] | [address] | [place], [place] | [phone] | | [facility] | | [address] | | | - LABORATORY | | | | + + + + + | [facility] | [address] | [place], [place] | | | [facility] | | [id number] | | | - LABORATORY | | [...] + | [facility] | [address] | [place] | [phone] | | [facility] | | [address] | | | - LABORATORY | | | | + + + + + | [facility] | [address] | [place] | | | [facility] | | [address] | | | - LABORATORY | | [...] [address] | [place] | [phone] | | [facility] | | [address] | | | - LABORATORY | | | | + + + + + | [facility] | [address] | [place] | | | [facility] | | [address] | | | - LABORATORY | | [...] + | [facility] | [address] | [place], [place] | [phone] | | [facility] | | [address] | | | - LABORATORY | | | | + + + + + | [facility] | [address] | [place], [place] | | | [facility] | | [address] | | | - LABORATORY | | [...] [address] | [place] | [phone] | | [facility] | | [address] | | | - LABORATORY | | | | + + + + + | [facility] | [address] | [place] | | | [facility] | | [address] | | | - LABORATORY | | [...] + | [facility] | [address] | [place], [place] | [phone] | | [facility] | | [address] | | | - LABORATORY | | | | + + + + + | [facility] | [address] | [place], [place] | | | [facility] | | [address] | | | - LABORATORY | | [...] | [facility] | | | | [facility] | | MEDICAL | | | [...] + | [facility] | [address] | [place] | [phone] | | [facility] | | [address] | | | - LABORATORY | | | | + + + + + | [facility] | [address] | [place] | | | [facility] | | [address] | | | - LABORATORY | | [...] + | [facility] | [address] | [place] | [phone] | | [facility] | | [address] | | | - LABORATORY | | | | + + + + + | [facility] | [address] | [place] | | | [facility] | | [address] | | | - LABORATORY | | [...] + | [facility] | [address] | [place], [place] | [phone] | | [facility] | | [address] | | | - LABORATORY | | | | + + + + + | [facility] | [address] | [place], [place] | | | [facility] | | [address] | | | - LABORATORY | | [...] + + | Performing | Address | [facility] | Phone Number | | Organization | | | | + + + + + | [facility] | [address] | [place] | [phone] | | [facility] | | [address] | | | - LABORATORY | | | | + + + + + | [facility] | [address] | [place] | | | [facility] | | [address] | | | - LABORATORY | | [...] ST. | [address] | [place] | [phone] | | [facility] | | [address] | | | - LABORATORY | | | | + + + + + | [facility] | [address] | [place], [place] | | | [facility] | | [address] | | | - LABORATORY | | | | + + + + + documented in this encounter Visit Diagnoses Not on filedocumented in this encounter
--- OUTSIDE RECORDS SUMMARY | ~2019-10-22 | XMS | Encounter Summary ---
Demographics + + + | Address | [address] | | | [place] [address] | + + + | Home Phone [...] [place] | | | | | [address] | | + + + + + | Atif Delgadillo | ECON | [place], [place] | | | | | [address] | | + + + + + | Caleb Dawn | ECON | Unknown | | + + + + + Care Team Providers + +------+ + | Care Channel Marketing Program Manager Name | Role | Phone | [...] | | | | | | [place] [address] | | | | | | [phone] | | | +--------+ + + + [...] Visit | | DO Olayinka [address] | | | | | | [place], [place] | | | | | | [place] | | | | | | [address] | | | | | | | | +--------+ + + + + | 05/20/ | Office | Cardiology | Yumiko Del Valle, | | | 2019 | Visit | | MD Lupe TYLER | | | | | | [place] | | | | | | [address] | | | | | | | | +--------+ + + + + documented as of this encounter Visit Diagnoses Not on filedocumented in this encounter"
--- OUTSIDE RECORDS SUMMARY | ~2019-10-22 | XMS | Encounter Summary ---
Demographics + + + | Address | [address] | | | [place] [address] | + + + | Home Phone [...] [place] | | | | | [address] | | + + + + + | Atif Delgadillo | ECON | [place], [place] | | | | | [address] | | + + + + + | Caleb Dawn | ECON | Unknown | | + + + + + Care Team Providers + +------+ + | Care Business Process Engineer Name | Role | Phone | [...] NEPHROLOGY [address] | M, DO [address] | disease, stage III | | | | [address] [place] | [place], [place] | (moderate) (Primary | | | | [place], [place] | [place], [place] | Dx); Hypertension | | | | [address] | [address] | | | | | [phone] | | | +--------+ + + + [...] | Visit | | DO Olayinka [address] | | | | | | [place] [place] [address] | | | | | | [place] | | | | | | [address] | | | | | | | | +--------+ + + + + | 05/20/ | Office | Cardiology | Yumiko Del Valle, | | | 2019 | Visit | | [address] | | | | | | [place] | | | | | | [address] | | | | | | | [...]
--- OUTSIDE RECORDS SUMMARY | ~2019-10-22 | XMS | Encounter Summary ---
Demographics + + + | Address | [address] | | | [place] [address] | + + + | Home Phone [...] [place] | | | | | [address] | | + + + + + | Atif Delgadillo | ECON | [place] | | | | | [address] | | + + + + + | Caleb Dawn | ECON | Unknown | | + + + + + Care Team Providers + +------+ + | Care Embossing Calender Operator Name | Role | Phone | [...] NEPHROLOGY [address] | M, DO [address] [place] | | | | | [address] [facility] 100 | [place], [facility] 100 | | | | | [place], [place] | [place] | | | | | [address] | [address] | | | | | [phone] | | | +--------+--------+ + + + [...] 2019 | Visit | | DO Olayinka [address] [place] [address] | | | | | | [place] | | | | | | [place] | | | | | | [phone] | | | | | | | | +--------+ + + + + | 05/20/ | Office | Cardiology | Yumiko Del Valle, | | | 2019 | Visit | | MD Lupe TYLER | | | | | | [place] | | | | | | [phone] | | | | | | | | +--------+ + + + + documented as of this encounter Visit Diagnoses Not on filedocumented in this encounter"
--- OUTSIDE RECORDS SUMMARY | ~2019-10-22 | XMS | Encounter Summary ---
Demographics + + + | Address | [address] | | | [place] [address] | + + + | Home Phone [...] + + + | Author | [facility] | | | and [place] | + + + | Organization | [facility] | | | and [place] | + + + | Address | Unknown | + + + | Phone | Unavailable | + + + Support + + + + + | Name | Relationship | Address | Phone | + + + + + | Hi Dawn | ECON | [place] | | | | | [address] | | + + + + + | Atif Delgadillo | ECON | [place] | | | | | [address] | | + + + + + | Caleb Dawn | ECON | Unknown | | + + + + + Care Team Providers + +------+ + | Care Box Sealing Machine Catcher Name | Role | Phone | + [...] NEPHROLOGY [address] | M, DO [address] [place] | disease, stage III | | | | [address] | [place], [place] [address] | (moderate) (Primary | | | | [place], [place] | [place] | Dx); Type 2 diabetes | | | | [address] | [address] | mellitus with stage | | | | [phone] | | 3 chronic kidney | | [...] [facility] for upcoming nephrology appointment sent to: [facility] documented in t his encounter [...] [place] | | | | | | [address] | | | | | | | | +--------+ + + + + | 05/20/ | Office | Cardiology | Yumiko Del Valle, | | | 2019 | Visit | | MD Lupe TYLER | | | | | | [place] | | | | | | [phone] | | | | | | | [...]
--- OUTSIDE RECORDS SUMMARY | ~2019-10-22 | XMS | Encounter Summary ---
Demographics + + + | Address | [address] | | | [place] [address] | + + + | Home Phone [...] [place] | | | | | [address] | | + + + + + | Atif Delgadillo | ECON | [place], [place] | | | | | [address] | | + + + + + | Caleb Dawn | ECON | Unknown | | + + + + + Care Team Providers + +------+ + | Care Financial Planning Assistant Name | Role | Phone | [...] + + | 10/29/ | Office | [facility] | Timothy, | [facility] | | 2015 | Visit | CARDIOLOGY [address] | ELLA [place] [address] | (arteriosclerotic | | | | [place], | [place], | cardiovascular | | | | [place] [address] | [place] [address] | disease) (Primary | | | | [phone] | [phone] | Dx); Hypertension, | | | | [...] (ELOCON) 0.1 % cream Apply topically Daily. [place]-3 Fatty Acids (FISH OIL) 300 MG CAPS [...] PLTEX 131* 10/22/2015 I reviewed records from [facility] for office visit on 11/06/2015. ASSESSMENT: 1. Congestive heart failure with preserved left ventricular ejection fraction A. Patient was recently admitted to [facility] with a profound anemia with hemoglobin of [...] this chart may have been created with [employer] voice recognition software. Occasi onal wrong-word or [...] | Visit | | DO Olayinka [address] [place] [address] | | | | | | [place], [place] [address] | | | | | | [place] | | | | | | [address] | | | | | | | | +--------+ + + + + | 05/20/ | Office | Cardiology | Yumiko Del Valle, | | | 2019 | Visit | | MD [address] | | | | | | [place] | | | | | | [address] | | | | | | | [...] MD | | | | | | ([id number]) on 10/29/2015 | | | | | [...]
--- OUTSIDE RECORDS SUMMARY | ~2019-10-22 | XMS | Encounter Summary ---
Demographics + + + | Address | [address] | | | [place] [address] | + + + | Home Phone [...] [place] | | | | | [address] | | + + + + + | Atif Delgadillo | ECON | [place], [place] | | | | | [address] | | + + + + + | Caleb Dawn | ECON | Unknown | | + + + + + Care Team Providers + +------+ + | Care Web Software Engineer Name | Role | Phone | + +------+ + PCP | Unavailable | + +------+ + Encounter Details +--------+ + + + + | Date | Type | Department | Care Team | Description | +--------+ + + + + | 10/10/ | Hospital | [facility] | | | | 2005 - | Encounter | MED CTR ICU [address] | | | | | | [address], | | | | 10/11/ | | [place] [address] | | | | 2005 | | [phone] | | | +--------+ + + + [...] 2019 | Visit | | DO Olayinka [address] [place] [address] | | | | | | [place] | | | | | | [place] | | | | | | [address] | | | | | | | | +--------+ + + + + | 05/20/ | Office | Cardiology | Yumiko Del Valle, | | | 2019 | Visit | | MD Lupe TYLER | | | | | | [place] | | | | | | [phone] | | | | | | | | +--------+ + + + + documented as of this encounter Visit Diagnoses Not on filedocumented in this encounter"
--- OUTSIDE RECORDS SUMMARY | ~2019-10-22 | XMS | Encounter Summary ---
Demographics + + + | Address | [address] | | | [place] [address] | + + + | Home Phone [...] [place] | | | | | [address] | | + + + + + | Atif Delgadillo | ECON | [place] | | | | | [address] | | + + + + + | Caleb Dawn | ECON | Unknown | | + + + + + Care Team Providers + +------+ + | Care Dental Office Manager Name | Role | Phone | [...] NEPHROLOGY [address] | M, DO [address] [place] | | | | | [address] [facility] 100 | [place], [place] [address] | | | | | [place], [place] | [place], [place] | | | | | [address] | [address] | | | | | [phone] | | | +--------+ + + + [...] Bhagat | | | | | | [place], [place] [address] | | | | | | [place] | | | | | | [address] | | | | | | | | +--------+ + + + + | 05/20/ | Office | Cardiology | Yumiko Del Valle, | | | 2019 | Visit | | [address] | | | | | | [place] | | | | | | [address] | | | | | | | [...]
--- OUTSIDE RECORDS SUMMARY | ~2019-10-22 | XMS | Encounter Summary ---
Demographics + + + | Address | [address] | | | [place] [address] | + + + | Home Phone [...] + + + | Author | [facility] | | | and [place] | + + + | Organization | [facility] | | | and [place] | + + + | Address | Unknown | + + + | Phone | Unavailable | + + + Support + + + + + | Name | Relationship | Address | Phone | + + + + + | Hi Dawn | ECON | [place] | | | | | [address] | | + + + + + | Atif Delgadillo | ECON | [place], [place] | | | | | [address] | | + + + + + | Caleb Dawn | ECON | Unknown | | + + + + + Care Team Providers + +------+ + | Care Radiation Therapy Technician Name | Role | Phone | [...] NEPHROLOGY [address] | M, DO [address] [place] | | | | | [address] [place] [address] | [place], [place] [address] | | | | | [place], [place] | [place] | | | | | [address] | [address] | | | | | [phone] | | | +--------+ + + + [...] 2019 | Visit | | DO Olayinka [address] [place] [address] | | | | | | [place] | | | | | | [place] | | | | | | [address] | | | | | | | | +--------+ + + + + | 05/20/ | Office | Cardiology | Yumiko Del Valle, | | | 2019 | Visit | | MD Lupe TYLER | | | | | | [place] | | | | | | [phone] | | | | | | | [...] | EXTERNAL LAB: CBC | Routin | 03/05/2013 | | Results for this | | | e | | | procedure are in the | | | | | | results section. | + +--------+ + + + | EXTERNAL LAB: SUSANA, | Routin | 03/05/2013 | | Results for this | | SCREEN | e | | | procedure are in the | | | | | | results section. | + +--------+ + + + | EXTERNAL LAB: AST | Routin | 03/05/2013 | | Results for this | | | e | | | procedure are in the | | | | | | results section. | + +--------+ + + + | EXTERNAL LAB: ALT | Routin | 03/05/2013 | | Results [...] | EXTERNAL LAB: EPIFANIO | Routin | 09/26/2011 | | Results for this | | | e | | | procedure are in the | | | | | | results section. | + +--------+ + + + | EXTERNAL LAB: ORION | Routin | 09/26/2011 | | Results for this | | | e | | | procedure are in the | | | | | | results section. | + +--------+ + + + | EXTERNAL LAB: TK | Routin | 09/26/2011 | | Results [...] [facility] | | [facility] - | | | | | | LABORATORY | | + +---------+ + + + | Glucose | 115 | mg/dL | [facility] | | | [facility] | [facility] | | | | | [facility] - | | | | | | LABORATORY | | + +---------+ + + + | BUN | 51 | mg/dL | [facility] | | | | | | [facility] | | | | | | [...] [address] | [place] | [phone] | | [facility] | | [address] | | | - LABORATORY | | | | + + + + + | [facility] | [address] | [place] | | | [facility] | | [address] | | | - LABORATORY | | | | + + + + + External Lab: AST (08/12/2013) + +-------+ + + + | [...] | | | LAB | | | Vietnamese, | | | | | | External [...] + | [facility] | [address] | [place], [place] | [phone] | | [facility] | | [address] | | | - LABORATORY | | | | + + + + + | [facility] | [address] | [place], [place] | | | [facility] | | [address] | | | - LABORATORY | | [...] | + +---------+ + + External Lab: SUSANA, Screen (03/05/2013) + +-------+ + + + [...] | | | LAB | | | Vietnamese, | | | | | | External [...] + | [facility] | [address] | [place] | [phone] | | [facility] | | [address] | | | - LABORATORY | | | | + + + + + | [facility] | [address] | [place] | | | [facility] | | [address] | | | - LABORATORY | | | | + + + + + External Lab: AST (10/15/2012) + +-------+ + + + | [...] | | | LAB | | | Vietnamese, | | | | | | External [...] + | [facility] | [address] | [place] | [phone] | | [facility] | | [address] | | | - LABORATORY | | | | + + + + + | [facility] | | | | | [facility] | | | | | - LABORATORY [...] | | | LAB | | | Vietnamese, | | | | | | External [...] [address] | [place] | [phone] | | [facility] | | [address] | | | - LABORATORY | | | | + + + + + | [facility] | | | | | [facility] | | | | | - LABORATORY [...] | | | LAB | | | Vietnamese, | | | | | | External [...] + | [facility] | [address] | [place], [place] | [phone] | | [facility] | | [address] | | | - LABORATORY | | | | + + + + + | [facility] | | | | | [facility] | | | | | - LABORATORY [...] | | | LAB | | | Vietnamese, | | | | | | External [...]
--- OUTSIDE RECORDS SUMMARY | ~2019-10-22 | XMS | Encounter Summary ---
Demographics + + + | Address | [address] | | | [place] [address] | + + + | Home Phone [...] [place] | | | | | [address] | | + + + + + | Atif Delgadillo | ECON | [place] | | | | | [address] | | + + + + + | Caleb Dawn | ECON | Unknown | | + + + + + Care Team Providers + +------+ + | Care Industrial Mechanic Name | Role | Phone | [...] NEPHROLOGY [address] | M, DO [address] [place] | | | | | [address] [facility] 100 | [place], [place] [address] | | | | | [place], [place] | [place] | | | | | [address] | [address] | | | | | [phone] | | | +--------+ + + + [...] Bhagat | | | | | | [place], [address] | | | | | | [place] | | | | | | [address] | | | | | | | | +--------+ + + + + | 05/20/ | Office | Cardiology | Yumiko Del Valle, | | | 2019 | Visit | | [address] | | | | | | [place] | | | | | | [address] | | | | | | | [...]
--- OUTSIDE RECORDS SUMMARY | ~2019-10-22 | XMS | Encounter Summary ---
Demographics + + + | Address | [address] | | | [place] [address] | + + + | Home Phone [...] [place] | | | | | [address] | | + + + + + | Atif Delgadillo | ECON | [place], [place] | | | | | [address] | | + + + + + | Caleb Dawn | ECON | Unknown | | + + + + + Care Team Providers + +------+ + | Care Secretary To The Vice President Name | Role | Phone | + [...] + + | 07/07/ | Telephone | [facility] [place] | Freddy Sanchez | Medication Question | | 2017 | | NEPHROLOGY [address] | M, DO [address] [place] | | | | | [address] [facility] 100 | [place], [facility] 100 | | | | | [place], [place] | [place] | | | | | [address] | [address] | | | | | [phone] | | | +--------+ + + + [...] 2019 | Visit | | DO Olayinka [address] [place] [address] | | | | | | [place] [address] | | | | | | [place] | | | | | | [address] | | | | | | | | +--------+ + + + + | 05/20/ | Office | Cardiology | Yumiko Del Valle, | | | 2019 | Visit | | MD Lupe TYLER | | | | | | [place] | | | | | | [phone] | | | | | | | | +--------+ + + + + documented as of this encounter Visit Diagnoses Not on filedocumented in this encounter"
--- OUTSIDE RECORDS SUMMARY | ~2019-10-22 | XMS | Encounter Summary ---
Demographics + + + | Address | [address] | | | [place] [address] | + + + | Home Phone [...] [place] | | | | | [address] | | + + + + + | Atif Delgadillo | ECON | [place], [place] | | | | | [address] | | + + + + + | Caleb Dawn | ECON | Unknown | | + + + + + Care Team Providers + +------+ + | Care Reprographics Associate Name | Role | Phone | + [...] NEPHROLOGY [address] | M, DO [address] | | | | | [address] [place] [address] | [place], [place] [address] | | | | | [place], [place] | [place] | | | | | [address] | [address] | | | | | [phone] | | | +--------+ + + + [...] 2019 | Visit | | DO Olayinka [address] [place] [address] | | | | | | [place] | | | | | | [place] | | | | | | [address] | | | | | | | | +--------+ + + + + | 05/20/ | Office | Cardiology | Yumiko Del Valle, | | | 2019 | Visit | | MD Lupe TYLER | | | | | | [place] | | | | | | [phone] | | | | | | | [...] [address] | [place] | [phone] | | [facility] | | [address] | | | - LABORATORY | | | | + + + + + | [facility] | [address] | [place] | | | [facility] | | [address] | | | - LABORATORY | | [...] | | | LAB | | | Kyrgyz, | | | | | | External [...] + | [facility] | [address] | [place], [place] | [phone] | | [facility] | | [address] | | | - LABORATORY | | | | + + + + + | [facility] | [address] | [place], [place] | | | [facility] | | [address] | | | - LABORATORY | | [...] | | | LAB | | | Kyrgyz, | | | | | | External [...] + | [facility] | [address] | [place] | [phone] | | [facility] | | [address] | | | - LABORATORY | | | | + + + + + | [facility] | [address] | [place] | | | [facility] | | [address] | | | - LABORATORY | | [...] | | | LAB | | | Kyrgyz, | | | | | | External [...] + | [facility] | [address] | [place] | [phone] | | [facility] | | [address] | | | - LABORATORY | | | | + + + + + | [facility] | | | | | [facility] | | | | | - [...] | | | LAB | | | Kyrgyz, | | | | | | External [...] [address] | [place] | [phone] | | [facility] | | [address] | | | - LABORATORY | | | | + + + + + | [facility] | | | | | [facility] | | | | | - [...] | | | LAB | | | Kyrgyz, | | | | | | External [...] + | [facility] | [address] | [place], [place] | [phone] | | [facility] | | [address] | | | - LABORATORY | | | | + + + + + | [facility] | | | | | [facility] | | | | | - [...] | | | LAB | | | Kyrgyz, | | | | | | External [...]
--- OUTSIDE RECORDS SUMMARY | ~2019-10-22 | XMS | Encounter Summary ---
Demographics + + + | Address | [address] | | | [place] [address] | + + + | Home Phone | | + + + | Preferred Language | Unknown | + + + | Marital Status | Single | + + + | Anglican Affiliation | Unknown | + + + | Race | Unknown | + + + | Ethnic Group | Unknown | + + + Author + + + | Author | [facility] | | | and [place] | + + + | Organization | [facility] | [...] [place] | | | | | [address] | | + + + + + | Atif Delgadillo | ECON | [place], [place] | | | | | [address] | | + + + + + | Caleb Dawn | ECON | Unknown | | + + + + + Care Team Providers + +------+ + | Care Driving Teacher Name | Role | Phone | [...] | [address] | [place], [place] [address] | Dx); Chronic kidney | | | | [place], [place] | [place], [place] | disease, stage IV | | | | [address] | [address] | (severe) ([facility]); | | | | [phone] | | Hypertension | +--------+ + + [...] [facility]. Renal ultrasound orders faxed to [facility]. documented in this encounter Plan of Treatment +--------+ + + + + | Date | Type | Specialty | Care Team | Description | +--------+ + + + + | 03/16/ | Off-Site | Nephrology | Freddy Sanchez | | | 2019 | Visit | | M, [address] [place] [address] | | | | | | [address] [facility] 100 | | | | | | [place], [place] | | | | | | [id number] | | | | | | | | +--------+ + + + + | 05/20/ | Office | Cardiology | Yumiko Del Valle, | | | 2020 | Visit | | MD Lupe TYLER | | | | | | [place] | | | | | | [address] | | | | | | | [...]
--- OUTSIDE RECORDS SUMMARY | ~2019-10-22 | XMS | Encounter Summary ---
Demographics + + + | Address | [address] | | | [place] [address] | + + + | Home Phone [...] [place] | | | | | [address] | | + + + + + | Atif Delgadillo | ECON | [place], [place] | | | | | [address] | | + + + + + | Caleb Dawn | ECON | Unknown | | + + + + + Care Team Providers + +------+ + | Care Box Brander Name | Role | Phone | + +------+ + PCP | Unavailable | + +------+ + Encounter Details +--------+ + + + + | Date | Type | Department | Care Team | Description | +--------+ + + + + | 11/29/ | Abstract | [facility] | Freddy Sanchez | | | 2017 | | NEPHROLOGY [address] | M, DO [address] [place] | | | | | [address] | [place], [address] | | | | | [place], [place] | [place] | | | | | [address] | [address] | | | | | [phone] | | | +--------+ + + + [...] 2019 | Visit | | DO Olayinka [facility] | | | | | | [place] | | | | | | [place] | | | | | | [address] | | | | | | | | +--------+ + + + + | 05/20/ | Office | Cardiology | Yumiko Del Valle, | | | 2019 | Visit | | MD Lupe TYLER | | | | | | [place] | | | | | | [phone] | | | | | | | | +--------+ + + + + documented as of this encounter Visit Diagnoses Not on filedocumented in this encounter"
--- OUTSIDE RECORDS SUMMARY | ~2019-10-22 | XMS | Encounter Summary ---
Demographics + + + | Address | [address] | | | [place] [address] | + + + | Home Phone [...] [place] | | | | | [address] | | + + + + + | Atif Delgadillo | ECON | [place], [place] | | | | | [address] | | + + + + + | Caleb Dawn | ECON | Unknown | | + + + + + Care Team Providers + +------+ + | Care Agile Project Manager Name | Role | Phone | [...] NEPHROLOGY [address] | M, DO [address] | | | | | [address] | [address] | | | | | [place], [place] | [place] | | | | | [address] | [address] | | | | | [phone] | | | +--------+ + + + [...] | Visit | | M, DO [address] | | | | | | [address] | | | | | | [place] | | | | | | [address] | | | | | | | | +--------+ + + + + | 05/20/ | Office | Cardiology | Yumiko Del Valle, | | | 2019 | Visit | | [address] | | | | | | [place], [place] | | | | | | [address] | | | | | | | [...]
--- OUTSIDE RECORDS SUMMARY | ~2019-10-22 | XMS | Encounter Summary ---
Demographics + + + | Address | [address] | | | [place] [address] | + + + | Home Phone [...] [place] | | | | | [address] | | + + + + + | Atif Delgadillo | ECON | [place], [place] | | | | | [address] | | + + + + + | Caleb Dawn | ECON | Unknown | | + + + + + Care Team Providers + +------+ + | Care Museum Guide Name | Role | Phone | + [...] NEPHROLOGY [address] | M, DO [address] [place] | disease, stage III | | | | [address] | [place], [place] [address] | (moderate) (Primary | | | | [place], [place] | [place], [place] | Dx); Type 2 diabetes | | | | [address] | [address] | mellitus with stage | | | | [phone] | | 3 chronic kidney | | [...] for nephrology appointment on 10/26/15 faxed to [facility]. documented in this encounter Plan of Treatment +--------+ + + + + | Date | Type | Specialty | Care Team | Description | +--------+ + + + + | 03/16/ | Off-Site | Nephrology | Freddy Sanchez | | | 2019 | Visit | | DO [address] | | | | | | [place] [address] | | | | | | [place] | | | | | | [address] | | | | | | | | +--------+ + + + + | 05/20/ | Office | Cardiology | Yumiko Del Valle, | | | 2019 | Visit | | MD Lupe TYLER | | | | | | [place] | | | | | | [address] | | | | | | | [...]
--- OUTSIDE RECORDS SUMMARY | ~2019-10-22 | XMS | Encounter Summary ---
Demographics + + + | Address | [address] | | | [place] [address] | + + + | Home Phone [...] [place] | | | | | [address] | | + + + + + | Atif Delgadillo | ECON | [place] | | | | | [address] | | + + + + + | Caleb Dawn | ECON | Unknown | | + + + + + Care Team Providers + +------+ + | Care Audit Mgr Name | Role | Phone | + [...] | kidney | MD [address] | [address] | | | | | disease, | [place] | [place], [place] | | | | | stage 3 | [place] [address] | [address] | | | | | (moderate) | [place] | [place] | | | | | (HCC) | [place] | [address] Phone: | | | | | Hypertension | [address] | [phone] | | | | | , essential | Phone: | Fax: | | | | | Type 2 | [phone] | [phone] | | | | | diabetes | Fax: | | | | | | mellitus | [phone] | | | | | | with stage 3 | | | | | | | chronic | | | | | | | kidney | | | | | | | disease | | | | | | | (HCC) | | | | | | | Procedures | | | | | | | [place] [facility]ICE | | | | | | [...] NEPHROLOGY [address] | M, DO [address] | disease, stage III | | | | [address] | [place], [place] [address] | (moderate) (HCC) | | | | [place], [place] | [place] | (Primary Dx); Type 2 | | | | [address] | [address] | diabetes mellitus | | | | [phone] | | with stage 3 chronic | | | | | | kidney disease, | | | | | | unspecified whether | | | | | | custodial insulin | | | | | | use ([facility]); | | | | | | Hyperparathyroidism | | | | | | due to renal | | | | | | insufficiency ([facility]); | | | | | | Hypercalcemia [...] (ELOCON) 0.1 % cream Apply topically Daily. [place]-3 Fatty Acids (FISH OIL) 1200 MG CAPS [...] PHOSEX 2.6 05/02/2019 PTHEX 87.75 (A) 05/02/2019 JFV6OXF 5.7 06/20/2018 Lab Results Component Value Date [...] 4 months at the [facility] at [place], [place]. He will have a CBC, CMP, PO4, HbA1c, iPTH, and spot Urine Pro/Cr ratio one week prior to that. I told him that I would gladly pass the above changes on to Dr. Moyer's Office, wa s PCP. Electronically signed by Freddy Sanchez DO. 05/06/19 14:46 CC: Anoop Vargas MD, [facility] Yumiko Del Valle MD, [facility] Matheus Gregory MD, [facility], [place] documented in thi s encounter Plan of Treatment +--------+ + + + + | Date | Type | Specialty | Care Team | Description | +--------+ + + + + | 03/16/ | Off-Site | Nephrology | Freddy Sanchez | | 2019 | Visit | | DO Anival Bhagat [place] | | | | | | [place] | | | | | | [place] | | | | | | [address] | | | | | | | | +--------+ + + + + | 05/20/ | Office | Cardiology | Yumiko Del Valle, | | | 2019 | Visit | | MD Lupe TYLER | | | | | | [place] | | | | | | [phone] | | | | | | | [...]
--- OUTSIDE RECORDS SUMMARY | ~2019-10-22 | XMS | Encounter Summary ---
Demographics + + + | Address | [address] | | | [place] [address] | + + + | Home Phone | | + + + | Preferred Language | Unknown | + + + | Marital Status | Single | + + + | Church Affiliation | Unknown | + + + [...] [place] | | | | | [address] | | + + + + + | Atif Delgadillo | ECON | [place], [place] | | | | | [address] | | + + + + + | Caleb Dawn | ECON | Unknown | | + + + + + Care Team Providers + +------+ + | Care Subassembly Supervisor Name | Role | Phone | [...] NEPHROLOGY [address] | M, DO [address] [place] | disease, stage III | | | | [address] | [place], [place] [address] | (moderate) (Primary | | | | [place], [place] | [place], [place] | Dx); Hypertension; | | | | [address] | [address] | Type II or | | | | [phone] | | unspecified type | | | [...] 2019 | Visit | | DO Olayinka [address] [place] [address] | | | | | | [address] | | | | | | [place] | | | | | | [address] | | | | | | | | +--------+ + + + + | 05/20/ | Office | Cardiology | Yumiko Del Valle, | | | 2019 | Visit | | MD Lupe TYLER | | | | | | [place] | | | | | | [address] | | | | | | | [...]
--- OUTSIDE RECORDS SUMMARY | ~2019-10-22 | XMS | Encounter Summary ---
Demographics + + + | Address | [address] | | | [place] [address] | + + + | Home Phone [...] [place] | | | | | [address] | | + + + + + | Atif Delgadillo | ECON | [place] | | | | | [address] | | + + + + + | Caleb Dawn | ECON | Unknown | | + + + + + Care Team Providers + +------+ + | Care Pipeline Technician Name | Role | Phone | + +------+ + | Anoop Moyer MD | PCP | | + +------+ + Encounter Details +--------+ + + + + | Date | Type | Department | Care Team | Description | +--------+ + + + + | 06/14/ | Orders Only | [facility] | Provider, | | | 2019 | | SYSTEM GENERIC OP | MD [address] | | | | | CONVERSION [address] | [address] | | | | | [address] [place], [place] | [place] [address] | | | | | [address] | | | | | | [phone] | | | +--------+ + + + [...] [place] | | | | | | [address] | | | | | | | | +--------+ + + + + | 05/20/ | Office | Cardiology | Yumiko Del Valle, | | | 2020 | Visit | | MD Lupe TYLER | | | | | | [place] | | | | | | [phone] | | | | | | | | +--------+ + + + + documented as of this encounter Visit Diagnoses Not on filedocumented in this encounter"
--- OUTSIDE RECORDS SUMMARY | ~2019-10-22 | XMS | Encounter Summary ---
Demographics + + + | Address | [address] | | | [place] [address] | + + + | Home Phone | | + + + | Preferred Language | Unknown | + + + | Marital Status | Single | + + + | Samaritan Affiliation | Unknown | + + + | Race | Unknown | + + + | Ethnic Group | Unknown | + + + Author + + + | Author | [facility] | | | and [place] | + + + | Organization | [facility] | | | and [place] | + + + | Address | Unknown | + + + | Phone | Unavailable | + + + Support + + + + + | Name | Relationship | Address | Phone | + + + + + | Hi Dawn | ECON | [place] | | | | | [address] | | + + + + + | Aitf Delgadillo | ECON | [place], [place] | | | | | [address] | | + + + + + | Caleb Dawn | ECON | Unknown | | + + + + + Care Team Providers + +------+ + | Care Specialist Physicians Name | Role | Phone | + [...] | 12/19/ | Refill | [facility] | Logan Baca, | Medication Refill | | 2014 | | CARDIOLOGY [address] | MD [address] [place] | | | | | [place], | [place], | | | | | [place] [address] | [place] [address] | | | | | [phone] | [phone] | | | | | | | [...] | Visit | | DO Olayinka [address] [place] [address] | | | | | | [address] | | | | | | [place] | | | | | | [address] | | | | | | | | +--------+ + + + + | 05/20/ | Office | Cardiology | Yumiko Del Valle, | | | 2019 | Visit | | MD Lupe TYLER | | | | | | [place] | | | | | | [phone] | | | | | | | | +--------+ + + + + documented as of this encounter Visit Diagnoses Not on filedocumented in this encounter"
--- OUTSIDE RECORDS SUMMARY | ~2019-10-22 | XMS | Encounter Summary ---
Demographics + + + | Address | [address] | | | [place] [address] | + + + | Home Phone | | + + + | Preferred Language | Unknown | + + + | Marital Status | Single | + + + | Evangelical Affiliation | Unknown | + + + [...] [place] | | | | | [address] | | + + + + + | Atif Delgadillo | ECON | [place], [place] | | | | | [address] | | + + + + + | Caleb Dawn | ECON | Unknown | | + + + + + Care Team Providers + +------+ + | Care Rotary Peel Oven Tender Name | Role | Phone | [...] NEPHROLOGY [address] | M, DO [address] [place] | disease, stage III | | | | [address] | [place], [place] [address] | (moderate) (Primary | | | | [place], [place] | [place], [place] | Dx); Type 2 diabetes | | | | [address] | [address] | mellitus with stage | | | | [phone] | | 3 chronic kidney | | | | | | disease, unspecified | | | | | | correction insulin | | | | | | use status ([facility]); | | | | | | [...] 2019 | Visit | | DO Olayinka [address] [place] [address] | | | | | | [address] | | | | | | [place] | | | | | | [address] | | | | | | | | +--------+ + + + + | 05/20/ | Office | Cardiology | Yumiko Del Valle, | | | 2019 | Visit | | MD Lupe TYLER | | | | | | [place] | | | | | | [phone] | | | | | | | | +--------+ + + + + documented as of this encounter Visit Diagnoses + + | Diagnosis | + + | Chronic kidney disease, stage III (moderate) (HCC) - Primary Chronic kidney disease, | | Stage III (moderate) | + + | Type 2 diabetes mellitus with stage 3 chronic kidney disease, unspecified correction | | insulin use status | + + | Hyperlipidemia, mixed Mixed hyperlipidemia | + + documented in this encounter"
--- OUTSIDE RECORDS SUMMARY | ~2019-10-22 | XMS | Encounter Summary ---
Demographics + + + | Address | [address] | | | [place] [address] | + + + | Home Phone [...] Organization | [facility] | | | and [place] | + + + | Address | Unknown | + + + | Phone | Unavailable | + + + Support + + + + + | Name | Relationship | Address | Phone | + + + + + | Hi Dawn | ECON | [place] | | | | | [address] | | + + + + + | Atif Delgadillo | ECON | [place], [place] | | | | | [address] | | + + + + + | Caleb Dawn | ECON | Unknown | | + + + + + Care Team Providers + +------+ + | Care Wooden Box Maker Name | Role | Phone | [...] NEPHROLOGY [address] | M, DO [address] [place] | disease, stage III | | | | [address] | [place], [place] [address] | (moderate) (Primary | | | | [place], [place] | [place], [place] | Dx); Type 2 diabetes | | | | [address] | [address] | mellitus with stage | | | | [phone] | | 3 chronic kidney | | [...] 2019 | Visit | | DO Olayinka [address] [place] [address] | | | | | | [address] | | | | | | [place] | | | | | | [address] | | | | | | | | +--------+ + + + + | 05/20/ | Office | Cardiology | OlgaYumiko, | | | 2019 | Visit | | MD Lupe TYLER | | | | | | [place] | | | | | | [address] | | | | | | | [...]
--- OUTSIDE RECORDS SUMMARY | ~2019-10-22 | XMS | Encounter Summary ---
Demographics + + + | Address | [address] | | | [place] [address] | + + + | Home Phone [...] [place] | | | | | [address] | | + + + + + | Atif Delgadillo | ECON | [place], [place] | | | | | [address] | | + + + + + | Caleb Dawn | ECON | Unknown | | + + + + + Care Team Providers + +------+ + | Care Combatant Diver Officer Name | Role | Phone | [...] NEPHROLOGY [address] | M, DO [address] [place] | | | | | [address] | [place], [place] [address] | | | | | [place], [place] | [place] | | | | | [address] | [address] | | | | | [phone] | | | +--------+ + + + [...] | Visit | | M, DO [address] [place] | | | | | | [place], [place] [address] | | | | | | [place] | | | | | | [address] | | | | | | | | +--------+ + + + + | 05/20/ | Office | Cardiology | Yumiko Del Valle, | | | 2019 | Visit | | [address] | | | | | | [place], [place] | | | | | | [address] | | | | | | | [...] | EXTERNAL LAB: [facility] | Routin | 07/25/2014 | | Results for this | | | e | | | procedure are in the | | | | | | results section. | + +--------+ + + + | EXTERNAL LAB: TK | Routin | 07/25/2014 | | Results [...] | 1.014 | | | | | [place], | | | | | | External | | | | | + + + + + + | UA | negative | | | | | Leukocyte | | | | | | Esterase, | | | | | | External | | | | | + + + + + + | Color | Straw | | | | + + + [...] | | | LAB | | | [place], | | | | | | External [...]
--- OUTSIDE RECORDS SUMMARY | ~2019-10-22 | XMS | Encounter Summary ---
Demographics + + + | Address | [address] | | | [place] [address] | + + + | Home Phone [...] [place] | | | | | [address] | | + + + + + | Atif Delgadillo | ECON | [place], [place] | | | | | [address] | | + + + + + | Caleb Dawn | ECON | Unknown | | + + + + + Care Team Providers + +------+ + | Care B2B Outside Sales Representative Name | Role | Phone | + +------+ + PCP | Unavailable | + +------+ + Encounter Details +--------+ + + + + | Date | Type | Department | Care Team | Description | +--------+ + + + + | 12/05/ | Hospital | [facility] | Winsome Fam, | | | 2013 - | Encounter | [facility] | [address] | | | | | [address] [place] | [facility] 100 [place] | | | 12/09/ | | [place] [address] | [place] [address] | | | 2013 | | [phone] | [phone] | | | | | | | [...] Winsome Fam MD - 12/09/2013 10:25 [place] [address] Patient Name: SERGEI TANNER Provider: Winsome Fam MD Unit #: [id number] Locatio n: 4EM : 1945 ADMISSION DATE: [...] on 12/23/2013 at 2 p.m. at the [facility] in [place], [place]. DICTATED BY: Winsome Fam MD Nephrology JOB #: [id number] EXT JOB #:[id number] cc: DO Quique Hall MD, primary care in [place] <<Signature on File>> Olayinka Ching D012/09/13 1443 [...] | | | | | | (moderate) ([facility]), | | | | | | | [...] | Visit | | DO Olayinka [address] [place] | | | | | | [place], [place] [address] | | | | | | [place], [place] | | | | | | [address] | | | | | | | | +--------+ + + + + | 05/20/ | Office | Cardiology | Yumiko Del Valle, | | | 2019 | Visit | | [address] | | | | | | [place] [facility] [place] | | | | | | [address] | | | | | | | [...] [address] | [place] | [phone] | | [facility] | | [address] | | | - LABORATORY | | | | + + + + + | [facility] | [address] | [place] | | | [facility] | | [address] | | | - LABORATORY | | [...] [address] | [place] | [phone] | | [facility] | | [address] | | | - LABORATORY | | | | + + + + + | [facility] | [address] | [place] | | | [facility] | | [address] | | | - LABORATORY | | [...] + | [facility] | [address] | [place], [place] | [phone] | | [facility] | | [address] | | | - LABORATORY | | | | + + + + + | [facility] | [address] | [place], [place] | | | [facility] | | [address] | | | - LABORATORY | | [...] + | [facility] | [address] | [place] | [phone] | | [facility] | | [address] | | | - LABORATORY | | | | + + + + + | [facility] | [address] | [place] | | | [facility] | | [address] | | | - LABORATORY | | [...] + | [facility] | [address] | [place], [place] | [phone] | | [facility] | | [address] | | | - LABORATORY | | | | + + + + + | [facility] | [address] | [place], [place] | | | [facility] | | [address] | | | - LABORATORY | | [...] + | [facility] | [address] | [place] | [phone] | | [facility] | | [address] | | | - LABORATORY | | | | + + + + + | [facility] | [address] | [place] | | | [facility] | | [address] | | | - LABORATORY | | [...] + | [facility] | [address] | [place], [place] | [phone] | | [facility] | | [address] | | | - LABORATORY | | | | + + + + + | [facility] | [address] | [place], [place] | | | [facility] | | [address] | | | - LABORATORY | | [...] [address] | [place] | [phone] | | [facility] | | [address] | | | - LABORATORY | | | | + + + + + | [facility] | [address] | [place] | | | [facility] | | [address] | | | - LABORATORY | | [...] (H) | 70 - 109 mg/dL | [facility] | | | | | | ST. [...] 4.37 (H) | 0.60 - 1.30 | [facility] | | | | | mg/dL | [...] + | [facility] | [address] | [place] | [phone] | | [facility] | | [address] | | | - LABORATORY | | | | + + + + + | [facility] | [address] | [place], [place] | | | [facility] | | [address] | | | - LABORATORY | | [...] | | | POC | | | [facility] | | | | [...] + | [facility] | [address] | [place] | [phone] | | [facility] | | [address] | | | - LABORATORY | | | | + + + + + | [facility] | [address] | [place] | | | [facility] | | [address] | | | - LABORATORY | | [...] [address] | [place] | [phone] | | [facility] | | [address] | | | - LABORATORY | | | | + + + + + | [facility] | [address] | [place] | | | [facility] | | [address] | | | - LABORATORY | | [...] + | [facility] | [address] | [place] | [phone] | | [facility] | | [address] | | | - LABORATORY | | | | + + + + + | [facility] | [address] | [place], [place] | | | [facility] | | [address] | | | - LABORATORY | | [...] + | [facility] | [address] | [place] | [phone] | | [facility] | | [address] | | | - LABORATORY | | | | + + + + + | [facility] | [address] | [place], [place] | | | [facility] | | [address] | | | - LABORATORY | | [...] + | [facility] | [address] | [place], [place] | [phone] | | [facility] | | [address] | | | - LABORATORY | | | | + + + + + | [facility] | [address] | [place], [place] | | | [facility] | | [address] | | | - LABORATORY | | [...] [address] | [place] | [phone] | | [facility] | | [address] | | | - LABORATORY | | | | + + + + + | [facility] | [address] | [place] | | | [facility] | | [address] | | | - LABORATORY | | [...] + | [facility] | [address] | [place] | [phone] | | [facility] | | [address] | | | - LABORATORY | | | | + + + + + | [facility] | [address] | [place] | | | [facility] | | [address] | | | - LABORATORY | | [...] + | [facility] | [address] | [place] | [phone] | | [facility] | | [address] | | | - LABORATORY | | | | + + + + + | [facility] | [address] | [place], [place] | | | [facility] | | [address] | | | - LABORATORY | | | | + + + + + Culture, MRSA (12/05/2013 7:23 PM PST) + + | Specimen | + + | | + + + + + + + | Performing | Address | City/State/Zipcode | Phone Number | | Organization | | | | + + + + + | [facility] | [address] | [place] | [phone] | | [facility] | | [address] | | | - LABORATORY | | [...] + | [facility] | [address] | [place] | [phone] | | [facility] | | [address] | | | - LABORATORY | | | | + + + + + | [facility] | [address] | [place], [place] | | | [facility] | | [address] | | | - LABORATORY | | [...] [address] | [place] | [phone] | | [facility] | | [address] | | | - LABORATORY | | | | + + + + + | [facility] | [address] | [place] | | | [facility] | | [address] | | | - LABORATORY | | [...] + | [facility] | [address] | [place], [place] | [phone] | | [facility] | | [address] | | | - LABORATORY | | | | + + + + + | [facility] | [address] | [place], [place] | | | [facility] | | [address] | | | - LABORATORY | | | | + + + + + documented in this encounter Visit Diagnoses Not on filedocumented in this encounter"
--- OUTSIDE RECORDS SUMMARY | ~2019-10-22 | XMS | Encounter Summary ---
Demographics + + + | Address | [address] | | | [place] [address] | + + + | Home Phone [...] [place] | | | | | [address] | | + + + + + | Atif Delgadillo | ECON | [place] | | | | | [address] | | + + + + + | Caleb Dawn | ECON | Unknown | | + + + + + Care Team Providers + +------+ + | Care Sorting Supervisor Name | Role | Phone | [...] + + | 04/05/ | Telephone | [facility] | Freddy Sanchez | Medication Follow-up | | 2019 | | NEPHROLOGY [address] | M, DO [address] [place] | | | | | [address] [facility] 100 | [place], [address] | | | | | [place], [place] | [place] | | | | | [address] | [phone] | | | | | [phone] | | | +--------+ + + + [...] | Visit | | DO Anival Bhagat [place] | | | | | | [place] | | | | | | [place] | | | | | | [address] | | | | | | | | +--------+ + + + + | 05/20/ | Office | Cardiology | Yumiko Del Valle, | | | 2019 | Visit | | MD Lupe TYLER | | | | | | [place] | | | | | | [phone] | | | | | | | | +--------+ + + + + documented as of this encounter Visit Diagnoses Not on filedocumented in this encounter"
--- OUTSIDE RECORDS SUMMARY | ~2019-10-22 | XMS | Encounter Summary ---
Demographics + + + | Address | [address] | | | [place] [address] | + + + | Home Phone [...] [place] | | | | | [address] | | + + + + + | Atif Delgadillo | ECON | [place], [place] | | | | | [address] | | + + + + + [...] NEPHROLOGY [address] | M, DO [address] [place] | | | | | [address] | [place], [address] | | | | | [place], [place] | [place] | | | | | [address] | [address] | | | | | [phone] | | | +--------+ + + + [...] | Visit | | M, DO [address] | | | | | | [place], [address] | | | | | | [place] | | | | | | [address] | | | | | | | | +--------+ + + + + | 05/20/ | Office | Cardiology | Yumiko Del Valle, | | | 2019 | Visit | | [address] | | | | | | [place], [place] | | | | | | [address] | | | | | | | [...] | | | LAB | | | [place], | | | | | | External [...]
--- OUTSIDE RECORDS SUMMARY | ~2019-10-22 | XMS | Encounter Summary ---
Demographics + + + | Address | [address] | | | [place] [address] | + + + | Home Phone | | + + + | Preferred Language | Unknown | + + + | Marital Status | Single | + + + | Buddhist Affiliation | Unknown | + + + | Race | Unknown | + + + | Ethnic Group | Unknown | + + + Author + + + | Author | [facility] | | | and [place] | + + + | Organization | [facility] | | | and [place] | + + + | Address | Unknown | + + + | Phone | Unavailable | + + + Support + + + + + | Name | Relationship | Address | Phone | + + + + + | Hi Dawn | ECON | [place] | | | | | [address] | | + + + + + | Atif Delgadillo | ECON | [place], [place] | | | | | [address] | | + + + + + | Caleb Dawn | ECON | Unknown | | + + + + + Care Team Providers + +------+ + | Care Provider Contracting Consultant Name | Role | Phone | + +------+ + PCP | Unavailable | + +------+ + Encounter Details +--------+ + + + + | Date | Type | Department | Care Team | Description | +--------+ + + + + | 10/20/ | Orders Only | [facility] | Timothy, | Hypertension, | | 2014 | | CARDIOLOGY [address] | ELLA Morton [address] | essential (Primary | | | | [place], | [place], | Dx); Congestive | | | | [place] [address] | [place] [address] | heart failure, | | | | [phone] | [phone] | unspecified | | | | | [...] | Visit | | DO Olayinka [address] | | | | | | [address] [place] [address] | | | | | | [place] | | | | | | [address] | | | | | | | | +--------+ + + + + | 05/20/ | Office | Cardiology | Yumiko Del Valle, | | | 2019 | Visit | | [address] | | | | | | [place] | | | | | | [address] | | | | | | | [...] MD | | | | | | ([id number]) on 10/29/2015 | | | | | [...]
--- OUTSIDE RECORDS SUMMARY | ~2019-10-22 | XMS | Encounter Summary ---
Demographics + + + | Address | [address] | | | [place] [address] | + + + | Home Phone [...] [place] | | | | | [address] | | + + + + + | Atif Delgadillo | ECON | [place], [place] | | | | | [address] | | + + + + + | Caleb Dawn | ECON | Unknown | | + + + + + Care Team Providers + +------+ + | Care Nitric Acid Plant Operator Name | Role | Phone [...] + + | 01/16/ | Telephone | [facility] | Freddy Sanchez | Medication | | 2014 | | NEPHROLOGY [address] | M, DO [address] | Management | | | | [address] [facility] | [place], [facility] 100 | | | | | [place], [place] | [place], [place] | | | | | [address] | [address] | | | | | [phone] | | | +--------+ + + + [...] | Visit | | DO Olayinka [address] [place] [address] | | | | | | [place] | | | | | | [place] | | | | | | [address] | | | | | | | | +--------+ + + + + | 05/20/ | Office | Cardiology | Yumiko Del Valle, | | | 2019 | Visit | | MD Lupe TYLER | | | | | | [place] | | | | | | [address] | | | | | | | | +--------+ + + + + documented as of this encounter Visit Diagnoses Not on filedocumented in this encounter"
--- OUTSIDE RECORDS SUMMARY | ~2019-10-22 | XMS | Clinical Summary ---
Demographics + + + | Address | [address] | | | [place] [address] | + + + | Home Phone | | + + + | Preferred Language | Unknown | + + + | Marital Status | Single | + + + | Congregational Affiliation | Unknown | + + + | Race | Unknown | + + + | Ethnic Group | Unknown | + + + Author + + + | Author | [facility] [employer] (Historical as of | | | 07-06-19) | + + + | Organization | [facility] (Historical as of | | | 07-06-19) | + + + | Address | Unknown | + + + | Phone | Unavailable | + + + Support + + +---------+ + | Name | Relationship | Address | Phone | + + +---------+ + | Caleb Dawn | ECON | Unknown | | + + +---------+ + Care Team Providers + +------+ + | Care Contact Agent Name | Role | Phone | + [...] | e | + + +-------+---------+------+------+-------+ | furosemide (LASIX) [...] | e | + + +-------+---------+------+------+-------+ | allopurinol | [...] + +-------+---------+------+------+-------+ | carvedilol (COREG) | Take 1 tablet by | | | 06/2 | | Activ | | 6.25 MG tablet | mouth 2 (two) times | | | 6/20 | | e | | | daily with meals. | | | 19 | | | + + +-------+---------+------+------+-------+ Active Problems + + + | Problem | Noted Date | + + + | ASCVD (arteriosclerotic cardiovascular disease) | 01/31/2018 | + + + | CHF (congestive heart failure) (HCC) | 01/31/2018 | + + + | [...] | 12/24/2013 | + + + | Stage 4 chronic kidney disease (HCC) | 09/05/2013 | + + + | Type 2 diabetes mellitus with stage 3 chronic kidney disease | 09/05/2013 | | (HCC) | | + + + Family History + + +------+ + | [...] + + + | Blood Pressure | 132/58 | 05/15/2019 10:43 AM PDT | + + + + | Pulse | 78 | 05/15/2019 10:43 AM PDT | + + + + | Temperature | - | - | + + + + | Respiratory Rate | - | - | + + + + | Oxygen Saturation | 95% | 05/15/2019 10:43 AM PDT | + + + + | Inhaled Oxygen | - | - | | Concentration | | | + + + + | Weight | 131.1 kg (289 lb) | 05/15/2019 10:43 AM PDT | + + + + | Height | 190.5 cm (6' 3") | 05/15/2019 10:43 AM PDT | + + + + | Body Mass Index | 36.12 | 05/15/2019 10:43 AM PDT | + + + + Plan of Treatment +--------+---------+ + + + | Date | Type | Specialty | Care Team | Description | +--------+---------+ + + + | 05/20/ | Office | | Yumiko Del Valle, | | | 2019 | Visit | | MD Lupe Cordero | | | | | | Dr Catherine, | | | | | | [place] [address] | | | | | | [phone] | | | | | | | [...] | | | (#1) | 9 | 10/31/2015 | | + + + [...] +------+-------+ + | AETNA | AETNA | [id number] | | | | | | - | | | | | | | [place] | | | | | | | [place] - | | | | | | | [place] | | | | | + +--------+ +------+-------+ + | MEDICARE | MEDICA | [id number] | | | [address] | | | RE | | | | [place] [address] | | | PART A | | [...] | Self | [birth year] | Home: | [address] [place] [address] | | | al/Fam | | 1945 | [phone] | [place] | | | [place] | | | [phone] | [address] | + +--------+ +--------+ + +
--- OUTSIDE RECORDS SUMMARY | ~2019-10-22 | XMS | Encounter Summary ---
Demographics + + + | Address | [address] | | | [place] [address] | + + + | Home Phone | | + + + | Preferred Language | Unknown | + + + | Marital Status | Single | + + + | Denominational Affiliation | Unknown | + + + | Race | Unknown | + + + | Ethnic Group | Unknown | + + + Author + + + | Author | [facility] | | | and [place] | + + + | Organization | [facility] | | | and [place] | + + + | Address | Unknown | + + + | Phone | Unavailable | + + + Support + + + + + | Name | Relationship | Address | Phone | + + + + + | Hi Dawn | ECON | [place] | | | | | [address] | | + + + + + | Atif Delgadillo | ECON | [place], [place] | | | | | [address] | | + + + + + | Caleb Dawn | ECON | Unknown | | + + + + + Care Team Providers + +------+ + | Care Regrader Name | Role | Phone | + +------+ + PCP | Unavailable | + +------+ + Encounter Details +--------+ + + + + | Date | Type | Department | Care Team | Description | +--------+ + + + + | 11/22/ | Documentati | [facility] | Freddy Sanchez | | | 2013 | on | NEPHROLOGY [address] | M, DO [address] [place] | | | | | [address] [facility] 100 | [place], [facility] 100 | | | | | [place] | [place] | | | | | [address] | [address] | | | | | [phone] | | | +--------+ + + + [...] | Visit | | DO Anival Bhagat [place] | | | | | | [place] | | | | | | [place] | | | | | | [address] | | | | | | | | +--------+ + + + + | 05/20/ | Office | Cardiology | Yumiko Del Valle, | | | 2019 | Visit | | MD Lupe TYLER | | | | | | [place] | | | | | | [address] | | | | | | | | +--------+ + + + + documented as of this encounter Visit Diagnoses Not on filedocumented in this encounter"
--- OUTSIDE RECORDS SUMMARY | ~2019-10-22 | XMS | Encounter Summary ---
Demographics + + + | Address | [address] | | | [place] [address] | + + + | Home Phone [...] [place] | | | | | [address] | | + + + + + | Atif Delgadillo | ECON | [place], [place] | | | | | [address] | | + + + + + | Caleb Dawn | ECON | Unknown | | + + + + + Care Team Providers + +------+ + | Care Roto Gravure Press Operator Name | Role | Phone | [...] NEPHROLOGY [address] | M, DO [address] [place] | kidney | | | | [address] [facility] 100 | [place], [facility] 100 | disease(285.21) | | | | [place], [place] | [place] | (Primary Dx) | | | | [address] | [address] | | | | | [phone] | | | +--------+ + + + [...] | Visit | | DO Olayinka [address] [place] | | | | | | [place] [address] | | | | | | [place] | | | | | | [address] | | | | | | | | +--------+ + + + + | 05/20/ | Office | Cardiology | Yumiko Del Valle, | | | 2019 | Visit | | [address] | | | | | | [place] | | | | | | [id number] | | | | | | | | +--------+ + + + + documented as of this encounter Visit Diagnoses + + | Diagnosis | + + | Anemia in chronic kidney disease(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
--- OUTSIDE RECORDS SUMMARY | ~2019-10-22 | XMS | Encounter Summary ---
Demographics + + + | Address | [address] | | | [place] [address] | + + + | Home Phone | | + + + | Preferred Language | Unknown | + + + | Marital Status | Single | + + + | Synagogue Affiliation | Unknown | + + + [...] [place] | | | | | [address] | | + + + + + | Atif Delgadillo | ECON | [place], [place] | | | | | [address] | | + + + + + | Caleb Dawn | ECON | Unknown | | + + + + + Care Team Providers + +------+ + | Care Operational Meteorologist Name | Role | Phone | + [...] NEPHROLOGY [address] | M, DO [address] [place] | | | | | [address] [place] [address] | [place], [place] [address] | | | | | [place], [place] | [place] | | | | | [address] | [address] | | | | | [phone] | | | +--------+ + + + [...] | Visit | | M, DO [address] [place] | | | | | | [place], [place] [address] | | | | | | [place] | | | | | | [address] | | | | | | | | +--------+ + + + + | 05/20/ | Office | Cardiology | Yumiko Del Valle, | | | 2019 | Visit | | [address] | | | | | | [place], [place] | | | | | | [address] | | | | | | | [...] | | | LAB | | | [place], | | | | | | External [...]
--- OUTSIDE RECORDS SUMMARY | ~2019-10-22 | XMS | Encounter Summary ---
Demographics + + + | Address | [address] | | | [place] [address] | + + + | Home Phone [...] [place] | | | | | [address] | | + + + + + | Atif Delgadillo | ECON | [place], [place] | | | | | [address] | | + + + + + | Caleb Dawn | ECON | Unknown | | + + + + + Care Team Providers + +------+ + | Care Meat Puller Name | Role | Phone | + +------+ + PCP | Unavailable | + +------+ + Encounter Details +--------+ + + + + | Date | Type | Department | Care Team | Description | +--------+ + + + + | 05/05/ | Hospital | [facility] | Timothy, | Hypertension | | 2013 | Encounter | MED CTR LABORATORY | ELLA [address] | | | | | [address] [place] | [address], | | | | | [place] | [place] [address] | | | | | [address] | [phone] | | | | | [phone] | | | +--------+ + + + [...] | | | | | | | ([facility]) | | | | | | [...] | | | | | heart failure) ([facility]) | | | | | | [...] | Visit | | M, DO [address] [place] | | | | | | [address] [place] [address] | | | | | | [place] | | | | | | [address] | | | | | | | | +--------+ + + + + | 05/20/ | Office | Cardiology | Yumiko Del Valle, | | | 2019 | Visit | | MD Lupe TYLER | | | | | | [place], [place] | | | | | | [address] | | | | | | | [...] | 43 (L)Comment: | >=60 | [facility] | | | | GLOMERULAR FILTRATION | mL/min/1.73m2 | [facility] | | | HONDURAN | RATE,ESTIMATED | | MEDICAL | | | | mL/min/1.48e6Ayud than | | CENTER - | | [...] | + + + + + | [facility] | [address] | [place], [place] | [phone] | | [facility] | | [address] | | | - LABORATORY | | | | + + + + + | [facility] | [address] | [place], [place] | | | [facility] | | [address] | | | - LABORATORY | | | | + + + + + documented in this encounter Visit Diagnoses + + | Diagnosis | + + | Hypertension Unspecified essential hypertension | + + documented in this encounter"
--- OUTSIDE RECORDS SUMMARY | ~2019-10-22 | XMS | Encounter Summary ---
Demographics + + + | Address | [address] | | | [place] [address] | + + + | Home Phone [...] [place] | | | | | [address] | | + + + + + | Atif Delgadillo | ECON | [place] | | | | | [address] | | + + + + + | Caleb Dawn | ECON | Unknown | | + + + + + Care Team Providers + +------+ + | Care Assortment Planner Name | Role | Phone | + [...] | kidney | MD [address] | | | | | disease, | [place] | [place], [place] | | | | | stage 3 | [place] 2 | [address] [place] | | | | | (moderate) | [place] | [place] | | | | | (HCC) | [place] | [address] Phone: | | | | | Hypertension | [address] | [phone] | | | | | , essential | Phone: | Fax: | | | | | Type 2 | [phone] | [phone] | | | | | diabetes | Fax: | | | | | | mellitus | [phone] | | | | | | with stage 3 | | | | | | | chronic | | | | | | | kidney | | | | | | | disease | | | | | | | (HCC) | | | | | | | Procedures | | | | | | | [place] OFFICE | | | | | | [...] | | [address] [place] [address] | [place], [place] [address] | goal blood pressure | | | | [place], [place] | [place] | less than 130/80 | | | | [address] | [address] | (Primary Dx); | | | | [phone] | | Chronic kidney | | | [...] switch to glimepiride after consultation with his Bundle Wrapper at [facility]. Outpatient Prescriptions Marked as Taking for [...] (ELOCON) 0.1 % cream Apply topically Daily. [place]-3 Fatty Acids (FISH OIL) 1200 MG CAPS [...] PHOSEX 3.6 12/28/2018 PTHEX 141.1 (A) 12/28/2018 ZOD1CAF 5.7 06/20/2018 Lab Results Component Value Date [...] will help minimize his risk of ASCVD exterminator helper termite. 2. His BP control is stable. Will [...] prior to that. : Anoop Vargas MD, [facility] Yumiko Del Valle MD, [facility] Matheus Gregory MD, [facility], [place] documented in thi s encounter Plan of Treatment +--------+ + + + + | Date | Type | Specialty | Care Team | Description | +--------+ + + + + | 03/16/ | Off-Site | Nephrology | Freddy Sanchez | | | 2019 | Visit | | DO [address]ay[address]a [address] | | | | | | [place] [address] | | | | | | [place] | | | | | | [address] | | | | | | | | +--------+ + + + + | 05/20/ | Office | Cardiology | Yumiko Del Valle, | | | 2019 | Visit | | [address] | | | | | | [place] | | | | | | [address] | | | | | | | [...]
--- OUTSIDE RECORDS SUMMARY | ~2019-10-22 | XMS | Encounter Summary ---
Demographics + + + | Address | [address] | | | [place] [address] | + + + | Home Phone [...] [place] | | | | | [address] | | + + + + + | Atif Delgadillo | ECON | [place], [place] | | | | | [address] | | + + + + + | Caleb Dawn | ECON | Unknown | | + + + + + Care Team Providers + +------+ + | Care Field Service Representative Name | Role | Phone | + +------+ + PCP | Unavailable | + +------+ + Encounter Details +--------+ + + + + | Date | Type | Department | Care Team | Description | +--------+ + + + + | 01/06/ | Abstract | [facility] | Freddy Sanchez | | | 2017 | | NEPHROLOGY [address] | M, DO [address] [place] | | | | | [address] [place] [address] | [place], [place] [address] | | | | | [place], [place] | [place] | | | | | [address] | [address] | | | | | [phone] | | | +--------+ + + + [...] | Visit | | M, DO [address] | | | | | | [place], [place] [address] | | | | | | [place] | | | | | | [address] | | | | | | | | +--------+ + + + + | 05/20/ | Office | Cardiology | Yumiko Del Valle, | | | 2019 | Visit | | [address] | | | | | | [place], [place] | | | | | | [address] | | | | | | | [...]
--- OUTSIDE RECORDS SUMMARY | ~2019-10-22 | XMS | Encounter Summary ---
Demographics + + + | Address | [address] | | | [place] [address] | + + + | Home Phone [...] [place] | | | | | [address] | | + + + + + | Atif Delgadillo | ECON | [place], [place] | | | | | [address] | | + + + + + | Caleb Dawn | ECON | Unknown | | + + + + + Care Team Providers + +------+ + | Care Freight Solicitor Name | Role | Phone | + +------+ + PCP | Unavailable | + +------+ + Encounter Details +--------+ + + + + | Date | Type | Department | Care Team | Description | +--------+ + + + + | 04/09/ | Hospital | [facility] | Saad Ivan | | | 2006 | Encounter | MED CTR SLEEP | MD Tomás [address] | | | | | [place] [address] [place] | [place] [facility] | | | | | [place] | [place] [address] | | | | | [address] | [phone] | | | | | [phone] | | | +--------+ + + + [...] 2019 | Visit | | DO Olayinka [address] [place] [address] | | | | | | [place] | | | | | | [place] | | | | | | [address] | | | | | | | | +--------+ + + + + | 05/20/ | Office | Cardiology | Yumiko Del Valle, | | | 2019 | Visit | | MD Lupe TYLER | | | | | | [place] | | | | | | [phone] | | | | | | | | +--------+ + + + + documented as of this encounter Visit Diagnoses [facility]"
--- OUTSIDE RECORDS SUMMARY | ~2019-10-22 | XMS | Encounter Summary ---
Demographics + + + | Address | [address] | | | [place] [address] | + + + | Home Phone [...] [place] | | | | | [address] | | + + + + + | Atif Delgadillo | ECON | [place], [place] | | | | | [address] | | + + + + + | Caleb Dawn | ECON | Unknown | | + + + + + Care Team Providers + +------+ + | Care Senior Environmental Consultant Name | Role | Phone | + +------+ + PCP | Unavailable | + +------+ + Encounter Details +--------+ + + + + | Date | Type | Department | Care Team | Description | +--------+ + + + + | 04/09/ | Hospital | [facility] | Saad Ivan | | | 2006 | Encounter | MED CTR SLEEP | MD Tomás [address] | | | | | [place] [address] [place] | [place] [facility] | | | | | [place] | [place] [address] | | | | | [address] | [phone] | | | | | [phone] | | | +--------+ + + + [...] 2019 | Visit | | DO Olayinka [address] [place] [address] | | | | | | [place] | | | | | | [place] | | | | | | [address] | | | | | | | | +--------+ + + + + | 05/20/ | Office | Cardiology | Yumiko Del Valle, | | | 2019 | Visit | | MD Lupe TYLER | | | | | | [place] | | | | | | [phone] | | | | | | | | +--------+ + + + + documented as of this encounter Visit Diagnoses [facility]"
--- OUTSIDE RECORDS SUMMARY | ~2019-10-22 | XMS | Encounter Summary ---
Demographics + + + | Address | [address] | | | [place] [address] | + + + | Home Phone [...] [place] | | | | | [address] | | + + + + + | Atif Delgadillo | ECON | [place], [place] | | | | | [address] | | + + + + + | Caleb Dawn | ECON | Unknown | | + + + + + Care Team Providers + +------+ + | Care Infection Prevention Coordinator Name | Role | Phone | [...] NEPHROLOGY [address] | M, DO [address] | | | | | [address] [place] [address] | [place], [place] [address] | | | | | [place], [place] | [place] | | | | | [address] | [address] | | | | | [phone] | | | +--------+ + + + [...] | Visit | | M, DO [address] | | | | | | [place], [place] [address] | | | | | | [place] | | | | | | [address] | | | | | | | | +--------+ + + + + | 05/20/ | Office | Cardiology | Yumiko Del Valle, | | | 2019 | Visit | | [address] | | | | | | [place] | | | | | | [address] | | | | | | | [...]
--- OUTSIDE RECORDS SUMMARY | ~2019-10-22 | XMS | Encounter Summary ---
Demographics + + + | Address | [address] | | | [place] [address] | + + + | Home Phone [...] [place] | | | | | [address] | | + + + + + | Atif Delgadillo | ECON | [place] | | | | | [address] | | + + + + + | Caleb Dawn | ECON | Unknown | | + + + + + Care Team Providers + +------+ + | Care Hitcher Name | Role | Phone | + [...] NEPHROLOGY [address] | M, DO [address] [place] | disease, stage III | | | | [address] [place] [address] | [place], [place] [address] | (moderate) (HCC) | | | | [place] | [place] | (Primary Dx); Type 2 | | | | [address] | [address] | diabetes mellitus | | | | [phone] | | with stage 3 chronic | [...] [place] | | | | | | [address] | | | | | | | | +--------+ + + + + | 05/20/ | Office | Cardiology | Yumiko Del Valle, | | | 2019 | Visit | | MD Lupe TYLER | | | | | | [place] | | | | | | [id number] | | | | | | | [...]
--- OUTSIDE RECORDS SUMMARY | ~2019-10-22 | XMS | Encounter Summary ---
Demographics + + + | Address | [address] | | | [place] [address] | + + + | Home Phone [...] [place] | | | | | [address] | | + + + + + | Atif Delgadillo | ECON | [place], [place] | | | | | [address] | | + + + + + | Caleb Dawn | ECON | Unknown | | + + + + + Care Team Providers + +------+ + | Care Green Marketing Specialist Name | Role | Phone | [...] + + | 02/17/ | Telephone | [facility] | Freddy Sanchez | Nephrology | | 2015 | | NEPHROLOGY [address] | M, DO [address] | Appointment | | | | [address] [facility] [place] [address] | [place], [facility] 100 | | | | | [place], [place] | [place], [place] | | | | | [address] | [address] | | | | | [phone] | | | +--------+ + + + [...] 2019 | Visit | | DO Olayinka [address] [place] [address] | | | | | | [place] [address] | | | | | | [place] | | | | | | [address] | | | | | | | | +--------+ + + + + | 05/20/ | Office | Cardiology | Yumiko Del Valle, | | | 2019 | Visit | | MD Lupe TYLER | | | | | | [place] | | | | | | [address] | | | | | | | | +--------+ + + + + documented as of this encounter Visit Diagnoses Not on filedocumented in this encounter"
--- OUTSIDE RECORDS SUMMARY | ~2019-10-22 | XMS | Encounter Summary ---
Demographics + + + | Address | [address] | | | [place] [address] | + + + | Home Phone [...] Author + + + | Author | [facility] | | | and [place] | + + + | Organization | [facility] | | | and [place] | + + + | Address | Unknown | + + + | Phone | Unavailable | + + + Support + + + + + | Name | Relationship | Address | Phone | + + + + + | Hi Dawn | ECON | [place] | | | | | [address] | | + + + + + | Atif Delgadillo | ECON | [place], [place] | | | | | [address] | | + + + + + | Caleb Dawn | ECON | Unknown | | + + + + + Care Team Providers + +------+ + | Care Wash And Greaser Name | Role | Phone | + [...] NEPHROLOGY [address] | M, DO [address] | | | | | [address] [place] [address] | [place], [place] [address] | | | | | [place], [place] | [place] | | | | | [address] | [address] | | | | | [phone] | | | +--------+ + + + [...] 2019 | Visit | | DO Olayinka [facility] | | | | | | [place] | | | | | | [place] | | | | | | [address] | | | | | | | | +--------+ + + + + | 05/20/ | Office | Cardiology | Yumiko Del Valle, | | | 2019 | Visit | | MD Lupe TYLER | | | | | | [place] | | | | | | [phone] | | | | | | | | +--------+ + + + + documented as of this encounter Visit Diagnoses Not on filedocumented in this encounter"
--- OUTSIDE RECORDS SUMMARY | ~2019-10-22 | XMS | Encounter Summary ---
Demographics + + + | Address | [address] | | | [place] [address] | + + + | Home Phone [...] [place] | | | | | [address] | | + + + + + | Atif Delgadillo | ECON | [place], [place] | | | | | [address] | | + + + + + | Caleb Dawn | ECON | Unknown | | + + + + + Care Team Providers + +------+ + | Care Recruiting And Selection Consultant Name | Role | Phone | + +------+ + PCP | Unavailable | + +------+ + Encounter Details +--------+ + + + + | Date | Type | Department | Care Team | Description | +--------+ + + + + | 02/01/ | Hospital | [facility] | | | | 2006 - | Encounter | MED CTR XRAY [address] | | | | | | [place] | | | | 02/17/ | | [place] [address] | | | | 2006 | | [phone] | | | +--------+ + + + [...] | Visit | | DO Olayinka [address] [place] [address] | | | | | | [place] | | | | | | [place] | | | | | | [phone] | | | | | | | | +--------+ + + + + | 05/20/ | Office | Cardiology | Yumiko Del Valle, | | | 2019 | Visit | | MD Lupe TYLER | | | | | | [place] | | | | | | [phone] | | | | | | | | +--------+ + + + + documented as of this encounter Visit Diagnoses Not on filedocumented in this encounter"
--- OUTSIDE RECORDS SUMMARY | ~2019-10-22 | XMS | Encounter Summary ---
Demographics + + + | Address | [address] | | | [place] [address] | + + + | Home Phone [...] [place] | | | | | [address] | | + + + + + | Atif Delgadillo | ECON | [place], [place] | | | | | [address] | | + + + + + | Caleb Dawn | ECON | Unknown | | + + + + + Care Team Providers + +------+ + | Care Gold Leaf Layer Name | Role | Phone | + +------+ + PCP | Unavailable | + +------+ + Encounter Details +--------+ + + + + | Date | Type | Department | Care Team | Description | +--------+ + + + + | 10/20/ | Orders Only | [facility] | [place], | Hypertension, | | 2014 | | CARDIOLOGY [address] | ELLA Morton [address] | essential (Primary | | | | [place], | [place], | Dx); Congestive | | | | [place] [address] | [place] [address] | heart failure, | | | | [phone] | [phone] | unspecified | | | | | [...] | Visit | | DO Olayinka [address] | | | | | | [place] [address] | | | | | | [place] | | | | | | [address] | | | | | | | | +--------+ + + + + | 05/20/ | Office | Cardiology | Yumiko Del Valle, | | | 2019 | Visit | | [address] | | | | | | [place] | | | | | | [address] | | | | | | | [...] MD | | | | | | ([id number]) on 10/29/2015 | | | | | [...]
--- OUTSIDE RECORDS SUMMARY | ~2019-10-22 | XMS | Encounter Summary ---
Demographics + + + | Address | [address] | | | [place] [address] | + + + | Home Phone [...] [place] | | | | | [address] | | + + + + + | Atif Delgadillo | ECON | [place], [place] | | | | | [address] | | + + + + + | Caleb Dawn | ECON | Unknown | | + + + + + Care Team Providers + +------+ + | Care Pneumatic Tester Name | Role | Phone | + +------+ + PCP | Unavailable | + +------+ + Reason for Visit + + + | Reason | Comments | + + + | Follow-up | Three weeks | + + + | Congestive Heart | | | Failure | | + + + | Medication | | | Management | | + + + Encounter Details +--------+---------+ + + + | Date | Type | Department | Care Team | Description | +--------+---------+ + + + | 01/23/ | Office | [facility] | [place], | Hyperlipidemia | | 2013 | Visit | CARDIOLOGY [address] | ELLA Morton [address] | (Primary Dx); ASCVD | | | | [place], | [place], | (arteriosclerotic | | | | [place] [address] | [place] [address] | cardiovascular | | | | [phone] | [phone] | disease); Type II or | | | | | | unspecified type | | | | | | diabetes mellitus | | | | | | with renal | | | | | | manifestations, not | | | | | | stated as | | | | | | uncontrolled; Chest | | | | | | pain | +--------+---------+ + + + Social History [...] + + + | Blood Pressure | 138/82 | 01/23/2014 11:17 AM | Left | | | | PST | | + + + + + | Pulse | 78 | 01/23/2014 11:17 AM | Regular | | | | PST | | + + + + + | Temperature | - | - | | + + + + + | Respiratory Rate | 20 | 01/23/2014 11:17 AM | | | | | PST | | + + + + + | Oxygen Saturation | - | - | | + + + + + | Inhaled Oxygen | - | - | | | Concentration | | | | + + + + + | Weight | 123.8 kg (273 lb) | 01/23/2014 11:17 AM | | | | | PST | | + + + + + | Height | 190.5 cm (6' 3") | 01/23/2014 11:17 AM | | | | | PST | | + + + + + | Body Mass Index | 34.12 | 01/23/2014 11:17 AM | | | | | PST | | + + + + + documented in this encounter Progress Notes Selene Betancourt ARNP - 01/23/2014 11:19 AM PSTFormatting of this note might be different f rom the original. PATIENT NAME: SERGEI TANNER : 1945: AGE: 68 y.o. PRIMARY CARE: Quique Garza OUTPATIENT FOLLOW UP VISIT Date of Service: 01/23/2014 HISTORY OF PRESENT ILLNESS: SERGEI TANNER is a 68 y.o. 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 He is being seen today for follow up congestive heart fail ure and hypertension. He was last seen 01/03/2014 at which time patient was to go back to furosemide 40 mg twice a day and check a blood pressure log for 2 weeks with a follow up in 4 weeks. Since that ti me, patient states that he has been "feeling really good". He has had no symptoms with his increased medication. He states that his leg swelling has improved since the Lasix was incr eased. He denies any chest pain, chest tightness, shortness of breath at rest or on exertio n. He denies being lightheaded, being dizzy or having palpitations. He sleeps at night usi ng a BiPAP and he has been doing so for a while. He continues to try to be physically activ e though of course for walk a couple times a week. MEDICAL, SURGICAL, AND PERSONAL HISTORY Past Medical, [...] CURRENT MEDICATIONS Outpatient Encounter Prescriptions as of 01/23/2014 Medication Sig Dispense Refill [DISCONTINUED] allopurinol (ZYLOPRIM) 100 mg tablet Take 100 mg by mouth 2 times daily. 30 tablet 0 allopurinol (ZYLOPRIM) 300 mg tablet Take 300 mg by mouth Daily. [DISCONTINUED] calcitriol (ROCALTROL) 0.25 mcg capsule Take 0.25 mcg by mouth Daily. calcitRIOL (ROCALTROL) 0.5 MCG capsule Take 0.5 mcg by mouth Daily. carvedilol (COREG) 12.5 [...] capsule by mouth Daily. 90 capsule 3 [DISCONTINUED] oxyCODONE-acetaminophen (PERCOCET) 5-325 mg per tablet Take 1 tablet by mouth every 6 hours as needed. sucralfate (CARAFATE) 1 g tablet Take 1 tablet by mouth 4 times daily. 120 tablet 2 terbinafine (LAMISIL) 250 MG tablet Take 250 mg by mouth Daily. ALLERGIES Allergies Allergen Reactions Lisinopril Penicillins Rash ROS Review of Systems HENT: Negative for tinnitus. Respiratory: Negative for shortness of breath and wheezing. Cardiovascular: Positive for leg swelling. Negative for chest pain and palpitations. Neurological: Negative for dizziness and headaches. OBJECTIVE: PHYSICAL EXAM BP 138/82 | Pulse 78 | Resp 20 | Ht 1.905 m (6' 3") | Wt 123.832 kg (273 lb) | BMI 34.12 kg /m2 Physical Exam Constitutional: He is [...] are normal. He exhibits n o abdominal bruit. There is no hepatosplenomegaly. Musculoskeletal: He exhibits edema (2+ bilateral pitting lower extremity edema). Neurological: He is alert and oriented to person, place, and time. Coordination normal. Skin: Skin is warm, dry and intact. No cyanosis. Nails show no clubbing. Psychiatric: He has a normal mood and affect. His mood appears not anxious. He does not exh ibit a depressed mood. ECG: Not done this visit. LAB RESULTS: LIPID No results found for this basename: chol, trig, ldlcalc, hdl, ldl, calculated, cholhdl CHEMISTRY Lab Results Component Value Date GLU 104* 01/13/2014 NA 141 01/13/2014 K 4.1 01/13/2014 CL 104 01/13/2014 CO2 29 01/13/2014 CALCIUM 9.7 01/13/2014 ALKPHOS 70 08/30/2013 BILITOT 0.6 01/13/2014 BUN 33* 01/13/2014 HEMATOLOGY No results found for this basename: wbc, hgb, hct, plt I personally reviewed records from another healthcare provider. ASSESSMENT: 1. Congestive heart failure with preserved left ventricular ejection fraction A. Patient was recently admitted to [facility] with a profound anemia with hemoglobin of [...] patient is doing better from cardiac standpoint. His leg edema has improved alth ough still remains present. Patient has no symptoms of angina or dyspnea at rest or on exer tion. He is in a class II of NYHA functional class. Physical exam shows a 2+ bilateral leg pitting edema but there are no other signs or symptoms of overt congestive heart failure. 2. Hypertension A. Blood pressure is borderline here at my office. Patient's blood pressure log from home shows mostly elevated blood pressures that range from 137/76-173/87 with a heart rate from 67-85 beats per minute. We will increase carvedilol to try to better control blood pressure . 3. Stage IV chronic kidney disease from diabetic nephropathy. 4. Diabetes 5. Peripheral vascular disease A. Status post left carotid endarterectomy in 2005. 6. Hyperlipidemia A. On niacin, simvastatin and gemfibrozil. 7. Anemia from upper GI bleeding PLAN: 1. Increase Carvedilol 25 mg by mouth twice a day for better blood pressure control. 2 Check blood pressure and pulse twice daily for two weeks and return the log to our office . 3. Follow up appointment in 3 months or sooner if any concerns. I, ELLA West, saw this patient under the direct supervision of Logan Baca MD Portions of this report were transcribed using voice recognition software. Every effort wa s made to ensure accuracy; however, inadvertent computerized yoke presser errors may be pre sent. Electronically signed by: ELLA West 01/23/2014 11:19 documented in this encounter Plan of Treatment +--------+ + + + + | Date | Type | Specialty | Care Team | Description | +--------+ + + + + | 03/16/ | Off-Site | Nephrology | Freddy Sanchez | | 2019 | Visit | | DO Anival Bhagat [place] | | | | | | [place] | | | | | | [place] | | | | | | [phone] | | | | | | | | +--------+ + + + + | 05/20/ | Office | Cardiology | Yumiko Del Valle, | | | 2019 | Visit | | MD Lupe TYLER | | | | | | [place] | | | | | | [phone] | | | | | | | | +--------+ + + + + documented as of this encounter Visit Diagnoses + + | Diagnosis | + + | Hyperlipidemia - Primary Other and unspecified hyperlipidemia | + + | ASCVD (arteriosclerotic cardiovascular disease) Unspecified cardiovascular disease | + + | Type II or unspecified type diabetes mellitus with renal manifestations, not stated as | | uncontrolled | + + | Chest pain Chest pain, unspecified | + + documented in this encounter
--- OUTSIDE RECORDS SUMMARY | ~2019-10-22 | XMS | Encounter Summary ---
Demographics + + + | Address | [address] | | | [place] [address] | + + + | Home Phone [...] [place] | | | | | [address] | | + + + + + | Atif Delgadillo | ECON | [place], [place] | | | | | [address] | | + + + + + | Caleb Dawn | ECON | Unknown | | + + + + + Care Team Providers + +------+ + | Care Loading Dock Helper Name | Role | Phone | [...] NEPHROLOGY [address] | M, DO [address] | disease, stage III | | | | [address] [place] | [place], [place] [address] | (moderate) (Primary | | | | [place], [place] | [place], [place] | Dx); Type II or | | | | [address] | [address] | unspecified type | | | | [phone] | | diabetes mellitus | | | [...] for nephrology appt on 11/25/13 faxed to [facility] in [place].Electronically signed by Jelena Wick RN at 03/2013 3:16 PM PSTdocumented in this encounter Plan of Treatment +--------+ + + + + | Date | Type | Specialty | Care Team | Description | +--------+ + + + + | 03/16/ | Off-Site | Nephrology | Freddy Sanchez | | 2019 | Visit | | DO Olayinka [address] [place] [address] | | | | | | [place] | | | | | | [place] | | | | | | [address] | | | | | | | | +--------+ + + + + | 05/20/ | Office | Cardiology | Yumiko Del Valle, | | | 2019 | Visit | | MD Lupe TYLER | | | | | | [place] | | | | | | [phone] | | | | | | | [...] | Chronic kidney disease, stage III (moderate) ([facility]) - Primary Chronic kidney disease, | | Stage III (moderate) | + + | Type II or unspecified type diabetes mellitus with renal manifestations, not stated as | | uncontrolled(250.40) ([facility]) Type II or unspecified type diabetes mellitus [...]
--- OUTSIDE RECORDS SUMMARY | ~2019-10-22 | XMS | Encounter Summary ---
Demographics + + + | Address | [address] | | | [place] [address] | + + + | Home Phone [...] [place] | | | | | [address] | | + + + + + | Atif Delgadillo | ECON | [place], [place] | | | | | [address] | | + + + + + | Caleb Dawn | ECON | Unknown | | + + + + + Care Team Providers + +------+ + | Care Apigee Developer Name | Role | Phone | [...] | Dx); Hypertension; | | | | [place], | [place], | Hyperlipidemia; | | | | [place] [address] | [place] [address] | Chronic kidney | | | | [phone] | [phone] | disease, stage III | | | [...] fraction A. Patient was recently admitted to [facility] with a profound anemia with hemoglobin of [...] this chart may have been created with [employer] voice recognition software. Occasi onal wrong-word or [...] 2019 | Visit | | DO Olayinka [address] [place] [address] | | | | | | [place] | | | | | | [place] | | | | | | [address] | | | | | | | | +--------+ + + + + | 05/20/ | Office | Cardiology | Yumiko Del [place]le, | | | 2019 | Visit | | MD Lupe TYLER | | | | | | [place] | | | | | | [phone] | | | | | | | [...]
--- OUTSIDE RECORDS SUMMARY | ~2019-10-22 | XMS | Encounter Summary ---
Demographics + + + | Address | [address] | | | [place] [address] | + + + | Home Phone | | + + + | Preferred Language | Unknown | + + + | Marital Status | Single | + + + | Adventism Affiliation | Unknown | + + + | Race | Unknown | + + + | Ethnic Group | Unknown | + + + Author + + + | Author | [facility] | | | [facility] [place] | + + + | Organization | [facility] | | | [facility] [place] | + + + | Address | Unknown | + + + | Phone | Unavailable | + + + Support + + + + + | Name | Relationship | Address | Phone | + + + + + | Hi Dawn | ECON | [place] | | | | | [address] | | + + + + + | Atif Delgadillo | ECON | [place], [place] | | | | | [address] | | + + + + + | Caleb Dawn | ECON | Unknown | | + + + + + Care Team Providers + +------+ + | Care Inspector Tool Name | Role | Phone | + [...] NEPHROLOGY [address] | M, DO [address] | disease, stage III | | | | [address] | [place], [place] [address] | (moderate) (Primary | | | | [place], [place] | [place], [place] | Dx); Hyperlipidemia; | | | | [address] | [address] | Essential | | | | [phone] | | hypertension; Type | | | [...] 2019 | Visit | | DO Olayinka [address] [place] [address] | | | | | | [place] [address] | | | | | | [place] | | | | | | [address] | | | | | | | | +--------+ + + + + | 05/20/ | Office | Cardiology | Yumiko Del [place]le, | | | 2019 | Visit | | MD Lupe TYLER | | | | | | [place] | | | | | | [phone] | | | | | | | | +--------+ + + + + documented as of this encounter Visit Diagnoses + + | Diagnosis | + + | Chronic kidney disease, stage III (moderate) ([facility]) - Primary Chronic kidney disease, | | Stage III (moderate) | + + | Hyperlipidemia Other and unspecified hyperlipidemia | + + | Essential hypertension Unspecified essential hypertension | + + | Type II or unspecified type diabetes mellitus with renal manifestations, not stated as | | uncontrolled(250.40) ([facility]) 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
--- OUTSIDE RECORDS SUMMARY | ~2019-10-22 | XMS | Encounter Summary ---
Demographics + + + | Address | [address] | | | [place] [address] | + + + | Home Phone [...] [place] | | | | | [address] | | + + + + + | Atif Delgadillo | ECON | [place], [place] | | | | | [address] | | + + + + + | Caleb Dawn | ECON | Unknown | | + + + + + Care Team Providers + +------+ + | Care Grants Officer Name | Role | Phone | [...] + + | 12/11/ | Telephone | [facility] | Winsome Fam W, | Gout Pain | | 2013 | | NEPHROLOGY [address] | [address] | | | | | [facility] | [place] [address] [facility] | | | | | [place], [place] | [place] [address] | | | | | [address] | [phone] | | | | | [phone] | | | +--------+ + + + [...] [place] | | | | | | [address] | | | | | | | | +--------+ + + + + | 05/20/ | Office | Cardiology | Yumiko Del [place]le, | | | 2019 | Visit | | MD Lupe TYLER | | | | | | [place] | | | | | | [phone] | | | | | | | | +--------+ + + + + documented as of this encounter Visit Diagnoses Not on filedocumented in this encounter"
--- OUTSIDE RECORDS SUMMARY | ~2019-10-22 | XMS | Encounter Summary ---
Demographics + + + | Address | [address] | | | [place] [address] | + + + | Home Phone [...] [place] | | | | | [address] | | + + + + + | Atif Delgadillo | ECON | [place], [place] | | | | | [address] | | + + + + + | Caleb Dawn | ECON | Unknown | | + + + + + Care Team Providers + +------+ + | Care Sales Engagement Manager Name | Role | Phone | [...] + + | [facility]/03/ | [facility] | Logan Baca, | CHF (congestive | | 2013 | Visit | CARDIOLOGY [address] | [address] | heart failure) ([facility]) | | | | [place], | [place], | (Primary Dx); | | | | [place] [address] | [place] [address] | Hypertension | | | | [phone] | [phone] | | | | | | | [...] and hypertension. Patient was recently admitted to [facility] with a profound anemia with hemoglobin of [...] Education: N/A Occupational History [employer], [place], [place] Social History Main Topics Smoking status: [...] fraction A. Patient was recently admitted to [facility] with a profound anemia with hemoglobin of [...] 2. After discussion with Dr. Deluna, his meter supervisor, we decided to put him back on furo semide 40 mg twice a day to treat leg swelling and to lower the blood pressure. 3.Check blood pressure x 2 weeks. Check minichem and CBC in 1 week. 4. Followup in 2-4 weeks. Portions of this report were transcribed using voice recognition software. Every effort wa s made to ensure accuracy; however, inadvertent computerized purchase request editor errors may be pre sent. documented in this encounter Plan of Treatment +--------+ + + + + | Date | Type | Specialty | Care Team | Description | +--------+ + + + + | 03/16/ | Off-Site | Nephrology | Freddy Sanchez | | | 2019 | Visit | | , [address] | | | | | | [place], [place] [address] | | | | | | [place] | | | | | | [address] | | | | | | | | +--------+ + + + + | 05/20/ | Office | Cardiology | Yumiko Del [place]le, | | | 2019 | Visit | | MD Lupe TYLER | | | | | | [place] | | | | | | [phone] | | | | | | | | +--------+ + + + + + +------+--------+ + + | Name | Type | Priori | Associated Diagnoses | Order Schedule | | | | ty | | | + +------+--------+ + + | Basic Metabolic | Lab | Routin | CHF (congestive | Expected: | | Panel | | e | heart failure) ([facility]) | 01/10/2014, Expires: | | | | | | 01/03/2015 | + +------+--------+ + + | CBC with | Lab | Routin | CHF (congestive | Expected: | | Differential | | e | heart failure) ([facility]) | 01/10/2014, Expires: | | | [...]
--- OUTSIDE RECORDS SUMMARY | ~2019-10-22 | XMS | Encounter Summary ---
Demographics + + + | Address | [address] | | | [place] [address] | + + + | Home Phone [...] [place] | | | | | [address] | | + + + + + | Atif Delgadillo | ECON | [place] | | | | | [address] | | + + + + + | Caleb Dawn | ECON | Unknown | | + + + + + Care Team Providers + +------+ + | Care Oil Process Stillman Name | Role | Phone | + [...] NEPHROLOGY [address] | M, DO [address] | | | | | [address] [facility] | [place], [facility] 100 | | | | | [place], [place] | [place] | | | | | [address] | [address] | | | | | [phone] | | | +--------+--------+ + + + [...] 2019 | Visit | | DO Olayinka [address] [place] [address] | | | | | | [place] | | | | | | [place] | | | | | | [phone] | | | | | | | | +--------+ + + + + | 05/20/ | Office | Cardiology | Yumiko Del Valle, | | | 2019 | Visit | | MD Lupe TYLER | | | | | | [place] | | | | | | [phone] | | | | | | | | +--------+ + + + + documented as of this encounter Visit Diagnoses Not on filedocumented in this encounter"
--- OUTSIDE RECORDS SUMMARY | ~2019-10-22 | XMS | Encounter Summary ---
Demographics + + + | Address | [address] | | | [place] [address] | + + + | Home Phone [...] [place] | | | | | [address] | | + + + + + | Atif Delgadillo | ECON | [place], [place] | | | | | [address] | | + + + + + | Caleb Dawn | ECON | Unknown | | + + + + + Care Team Providers + +------+ + | Care Scientific Specialist Name | Role | Phone | [...] NEPHROLOGY [address] | M, DO [address] | disease, stage III | | | | [address] | [place], [place] [address] | (moderate) (Primary | | | | [place], [place] | [place], [place] | Dx) | | | | [address] | [address] | | | | | [phone] | | | +--------+ + + + [...] | Visit | | DO Olayinka [address] [place] [address] | | | | | | [place] [address] | | | | | | [place] | | | | | | [address] | | | | | | | | +--------+ + + + + | 05/20/ | Office | Cardiology | Yumiko Del Valle, | | | 2019 | Visit | | MD Lupe TYLER | | | | | | [place] | | | | | | [address] | | | | | | | | +--------+ + + + + documented as of this encounter Visit Diagnoses + + | Diagnosis | + + | Chronic kidney disease, stage III (moderate) (HCC) - Primary Chronic kidney disease, | | Stage III (moderate) | + + documented in this encounter"
--- OUTSIDE RECORDS SUMMARY | ~2019-10-22 | XMS | Encounter Summary ---
Demographics + + + | Address | [address] | | | [place] [address] | + + + | Home Phone | | + + + | Preferred Language | Unknown | + + + | Marital Status | Single | + + + | Yazidism Affiliation | Unknown | + + + | Race | Unknown | + + + | Ethnic Group | Unknown | + + + Author + + + | Author | [facility] | | | [facility] [place] | + + + | Organization | [facility] | | | [facility] [place] | + + + | Address | Unknown | + + + | Phone | Unavailable | + + + Support + + + + + | Name | Relationship | Address | Phone | + + + + + | Hi Dawn | ECON | [place] | | | | | [address] | | + + + + + | Atif Delgadillo | ECON | [place], [place] | | | | | [address] | | + + + + + | Caleb Dawn | ECON | Unknown | | + + + + + Care Team Providers + +------+ + | Care Taxi Cab Driver Name | Role | Phone | + [...] | unspecified | MD [address] | | | | | type | [place] | [place] | | | | | diabetes | [place] [address] | [address] [place] | | | | | mellitus | [place], | [place], [place] | | | | | with renal | [place] | [address] Phone: | | | | | manifestatio | [address] | [phone] | | | | | ns, not | Phone: | Fax: | | | | | stated as | [phone] | [phone] | | | | | uncontrolled | Fax: | | | | | | [phone] | [phone] | | | | | | (HCC) [...] | | [address] | [place], [place] [address] | diabetes mellitus | | | | [place] | [place] | with renal | | | | [address] | [address] | manifestations, not | | | | [phone] | | stated as | | | [...] Addendum: After reviewing recent Lipid guidelines in [facility], it suggests starting at 40 [...] 11/27/2014 PHOSEX 3.3 11/27/2014 PTHEX 147 11/27/2014 FCG3YCF 6.3* 07/25/2014 Lab Results Component Value Date [...] him back in 4 mo. at the [facility], [place], [place]. He will have a CBC, CMP, [...] 2019 | Visit | | DO Olayinka [address] [place] [address] | | | | | | [place] [address] | | | | | | [place] | | | | | | [address] | | | | | | | | +--------+ + + + + | 05/20/ | Office | Cardiology | Yumiko Del [place]le, | | | 2019 | Visit | | MD Lupe TYLER | | | | | | [place] | | | | | | [address] | | | | | | | [...]
--- OUTSIDE RECORDS SUMMARY | ~2019-10-22 | XMS | Encounter Summary ---
Demographics + + + | Address | [address] | | | [place] [address] | + + + | Home Phone [...] [place] | | | | | [address] | | + + + + + | Atif Delgadillo | ECON | [place], [place] | | | | | [address] | | + + + + + | Caleb Dawn | ECON | Unknown | | + + + + + Care Team Providers + +------+ + | Care Cotton Cleaner Name | Role | Phone | [...] | kidney | MD [address] | [address] | | | | | disease, | [place] | [place], [place] | | | | | stage 3 | [place] 2 | [address] [place] | | | | | (moderate) | [place], | [place] | | | | | (HCC) | [place] | [address] Phone: | | | | | Hypertension | [address] | [phone] | | | | | , essential | Phone: | Fax: | | | | | Type 2 | [phone] | [phone] | | | | | diabetes | Fax: | | | | | | mellitus | [phone] | | | | | | with stage 3 | | | | | | | chronic | | | | | | | kidney | | | | | | | disease | | | | | | | (HCC) | | | | | | | Procedures | | | | | | | SC OFFICE | | | | | | [...] NEPHROLOGY [address] | M, DO [address] | mellitus with stage | | | | [address] [place] [address] | [place], [place] | 3 chronic kidney | | | | [place], [place] | [place] | disease, without | | | | [address] | [address] | long-term current | | | | [phone] | | use of insulin (HCC) | [...] (ELOCON) 0.1 % cream Apply topically Daily. [place]-3 Fatty Acids (FISH OIL) 1200 MG CAPS [...] PHOSEX 3.7 06/29/2017 PTHEX 158.2 (A) 06/29/2017 EMA8EUK 5.9 06/29/2017 Lab Results Component Value Date [...] to th at. : Hema Gregory MD, [place] , [place] documented in th is encounter Plan of Treatment +--------+ + + + + | Date | Type | Specialty | Care Team | Description | +--------+ + + + + | 03/16/ | Off-Site | Nephrology | Freddy Sanchez | | | 2019 | Visit | | DO [address] | | | | | | [place] [address] | | | | | | [place] | | | | | | [address] | | | | | | | | +--------+ + + + + | 05/20/ | Office | Cardiology | Yumiko Del Valle, | | | 2019 | Visit | | MD [address] | | | | | | [place] [facility] [place] | | | | | | [address] | | | | | | | [...]
--- OUTSIDE RECORDS SUMMARY | ~2019-10-22 | XMS | Encounter Summary ---
Demographics + + + | Address | [address] | | | [place] [address] | + + + | Home Phone [...] + + + | Author | [facility] | | | and [place] | + + + | Organization | [facility] | | | and [place] | + + + | Address | Unknown | + + + | Phone | Unavailable | + + + Support + + + + + | Name | Relationship | Address | Phone | + + + + + | Hi Dawn | ECON | [place] | | | | | [address] | | + + + + + | Atif Delgadillo | ECON | [place], [place] | | | | | [address] | | + + + + + | Caleb Dawn | ECON | Unknown | | + + + + + Care Team Providers + +------+ + | Care Dedenter Name | Role | Phone | + +------+ + PCP | Unavailable | + +------+ + Encounter Details +--------+ + + + + | Date | Type | Department | Care Team | Description | +--------+ + + + + | 05/21/ | Hospital | [facility] | Saad Ivan | | | 2006 | Encounter | MED CTR SLEEP | MD Tomás [address] | | | | | CARLOS [address] | [place] [facility] | | | | | [place] | [place] [address] | | | | | [address] | [phone] | | | | | [phone] | | | +--------+ + + + [...] | Visit | | DO Olayinka [address] [place] [address] | | | | | | [place] | | | | | | [place] | | | | | | [address] | | | | | | | | +--------+ + + + + | 05/20/ | Office | Cardiology | Yumiko Del Valle, | | | 2019 | Visit | | MD Lupe TYLER | | | | | | [place] | | | | | | [phone] | | | | | | | | +--------+ + + + + documented as of this encounter Visit Diagnoses Not on affinity health partnersdocumented in this encounter"
--- OUTSIDE RECORDS SUMMARY | ~2019-10-22 | XMS | Encounter Summary ---
Demographics + + + | Address | [address] | | | [place] [address] | + + + | Home Phone [...] | [facility] | | | and [place] | + + + | Address | Unknown | + + + | Phone | Unavailable | + + + Support + + + + + | Name | Relationship | Address | Phone | + + + + + | Hi Dawn | ECON | [place] | | | | | [address] | | + + + + + | Atif Delgadillo | ECON | [place] | | | | | [address] | | + + + + + | Caleb Dawn | ECON | Unknown | | + + + + + Care Team Providers + +------+ + | Care Manager Chemistry Name | Role | Phone | + [...] NEPHROLOGY [address] | M, DO [address] | | | | | [address] [facility] 100 | [place], [facility] 100 | | | | | [place], [place] | [place] | | | | | [address] | [address] | | | | | [phone] | | | +--------+--------+ + + + [...] 2019 | Visit | | DO Olayinka [address] [place] [address] | | | | | | [place] [address] | | | | | | [place] | | | | | | [address] | | | | | | | | +--------+ + + + + | 05/20/ | Office | Cardiology | Yumiko Del Valle, | | | 2019 | Visit | | MD Lupe TYLER | | | | | | [place] | | | | | | [address] | | | | | | | [...]
--- OUTSIDE RECORDS SUMMARY | ~2019-10-22 | XMS | Encounter Summary ---
Demographics + + + | Address | [address] | | | [place] [address] | + + + | Home Phone [...] [place] | | | | | [address] | | + + + + + | Atif Delgadillo | ECON | [place], [place] | | | | | [address] | | + + + + + | Caleb Dawn | ECON | Unknown | | + + + + + Care Team Providers + +------+ + | Care Advisory Services Associate Name | Role | Phone | [...] [address] | M, DO [address] | disease, stage III | | | | [address] | [place], [place] [address] | (moderate) (Primary | | | | [place], [place] | [place] | Dx); Type 2 diabetes | | | | [address] | [address] | mellitus with stage | | | | [phone] | | 3 chronic kidney | | [...] 2019 | Visit | | DO Olayinka [address] [place] [address] | | | | | | [place] [address] | | | | | | [place] | | | | | | [address] | | | | | | | | +--------+ + + + + | 05/20/ | Office | Cardiology | Yumiko Del Valle, | | | 2019 | Visit | | MD Lupe TYLER | | | | | | [place] | | | | | | [address] | | | | | | | [...]
--- OUTSIDE RECORDS SUMMARY | ~2019-10-22 | XMS | Encounter Summary ---
Demographics + + + | Address | [address] | | | [place] [address] | + + + | Home Phone [...] [place] | | | | | [address] | | + + + + + | Atif Delgadillo | ECON | [place], [place] | | | | | [address] | | + + + + + | Caleb Dawn | ECON | Unknown | | + + + + + Care Team Providers + +------+ + | Care Nuclear Engineering Technician Name | Role | Phone | [...] NEPHROLOGY [address] | M, DO [address] [place] [place] | disease, stage III | | | | [address] | [place], [place] [address] | (moderate) (Primary | | | | [place], [place] | [place] | Dx); Unspecified | | | | [address] | [address] | hypertensive kidney | | | | [phone] | | disease with chronic | | [...] | Visit | | DO Olayinka [address] | | | | | | [place] [address] | | | | | | [place] | | | | | | [address] | | | | | | | | +--------+ + + + + | 05/20/ | Office | Cardiology | Yumiko Del Valle, | | | 2019 | Visit | | MD Lupe TYLER | | | | | | [place] | | | | | | [phone] | | | | | | | [...]
--- OUTSIDE RECORDS SUMMARY | ~2019-10-22 | XMS | Encounter Summary ---
Demographics + + + | Address | [address] | | | [place] [address] | + + + | Home Phone [...] [place] | | | | | [address] | | + + + + + | Atif Delgadillo | ECON | [place], [place] | | | | | [address] | | + + + + + | Caleb Dawn | ECON | Unknown | | + + + + + Care Team Providers + +------+ + | Care Information Manager Name | Role | Phone | [...] NEPHROLOGY [address] | M, DO [address] | mellitus with stage | | | | [address] | [place], [place] [address] | 3 chronic kidney | | | | [place], [place] | [place] | disease, without | | | | [address] | [address] | long-term current | | | | [phone] | | use of insulin (HCC) | [...] 2019 | Visit | | DO Olayinka [address] [place] [address] | | | | | | [place] [address] | | | | | | [place] | | | | | | [address] | | | | | | | | +--------+ + + + + | 05/20/ | Office | Cardiology | Yumiko Del Valle, | | | 2019 | Visit | | MD Lupe TYLER | | | | | | [place] | | | | | | [phone] | | | | | | | [...]
--- OUTSIDE RECORDS SUMMARY | ~2019-10-22 | XMS | Encounter Summary ---
Demographics + + + | Address | [address] | | | [place] [address] | + + + | Home Phone [...] [place] | | | | | [address] | | + + + + + | Atif Delgadillo | ECON | [place] | | | | | [address] | | + + + + + | Caleb Dwan | ECON | Unknown | | + + + + + Care Team Providers + +------+ + | Care Paper Making Machine Operator Name | Role | Phone | + +------+ + | Anoop Moyer MD | PCP | | + +------+ + Encounter Details +--------+ + + + + | Date | Type | Department | Care Team | Description | +--------+ + + + + | 06/14/ | Orders Only | [facility] | Provider, | | | 2019 | | SYSTEM GENERIC OP | MD [address] | | | | | CONVERSION [address] | [address] | | | | | [address] [place], [place] | [place] [address] | | | | | [address] | | | | | | [phone] | | | +--------+ + + + [...] [place] | | | | | | [address] | | | | | | | | +--------+ + + + + | 05/20/ | Office | Cardiology | Yumiko Del Valle, | | | 2020 | Visit | | MD Lupe TYLER | | | | | | [place] | | | | | | [phone] | | | | | | | | +--------+ + + + + documented as of this encounter Visit Diagnoses Not on filedocumented in this encounter"
--- OUTSIDE RECORDS SUMMARY | ~2019-10-22 | XMS | Encounter Summary ---
Demographics + + + | Address | [address] | | | [place] [address] | + + + | Home Phone | | + + + | Preferred Language | Unknown | + + + | Marital Status | Single | + + + | Samaritan Affiliation | Unknown | + + + | Race | Unknown | + + + | Ethnic Group | Unknown | + + + Author + + + | Author | [facility] | | | and [place] | + + + | Organization | [facility] | | | and [place] | + + + | Address | Unknown | + + + | Phone | Unavailable | + + + Support + + + + + | Name | Relationship | Address | Phone | + + + + + | Hi Dawn | ECON | [place] | | | | | [address] | | + + + + + | Atif Delgadillo | ECON | [place], [place] | | | | | [address] | | + + + + + | Caleb Dawn | ECON | Unknown | | + + + + + Care Team Providers + +------+ + | Care Cone Runner Name | Role | Phone | + [...] + + | 11/18/ | Telephone | [facility] | Timothy, | Appointment | | 2015 | | CARDIOLOGY [address] | ELLA Morton [address] | | | | | [place], | [place], | | | | | [place] [address] | [place] [address] | | | | | [phone] | [phone] | | | | | | | [...] | Visit | | DO Anival Bhagat [place] | | | | | | [place] | | | | | | [place] | | | | | | [address] | | | | | | | | +--------+ + + + + | 05/20/ | Office | Cardiology | Yumiko Del Valle, | | | 2019 | Visit | | MD Lupe TYLER | | | | | | [place] | | | | | | [address] | | | | | | | | +--------+ + + + + documented as of this encounter Visit Diagnoses Not on filedocumented in this encounter"
--- OUTSIDE RECORDS SUMMARY | ~2019-10-22 | XMS | Encounter Summary ---
Demographics + + + | Address | [address] | | | [place] [address] | + + + | Home Phone [...] [place] | | | | | [address] | | + + + + + | Atif Delgadillo | ECON | [place], [place] | | | | | [address] | | + + + + + | Caleb Dawn | ECON | Unknown | | + + + + + Care Team Providers + +------+ + | Care Flame Gouger Name | Role | Phone | + [...] | unspecified | MD [address] | [address] | | | | | type | [place] | [place] | | | | | diabetes | [place] 2 | [address] [place] | | | | | mellitus | [place], | [place], [place] | | | | | with renal | [place] | [address] Phone: | | | | | manifestatio | [address] | [phone] | | | | | ns, not | Phone: | Fax: | | | | | stated as | [phone] | [phone] | | | | | uncontrolled | Fax: | | | | | | [phone] | [phone] | | | | | | (HCC) [...] | | [address] | [place], [place] [address] | diabetes mellitus | | | | [place] | [place] | with renal | | | | [address] | [address] | manifestations, not | | | | [phone] | | stated as | | | [...] 09/17/2014 GLUEX 172 09/17/2014 PHOSEX 3.2 09/17/2014 BUC2FMG 6.3* 07/25/2014 Lab Results Component Value Date [...] | Visit | | DO [address]ayinka [address] | | | | | | [place] [...] [place] | | | | | | [address] | | | | | | | [...]
--- OUTSIDE RECORDS SUMMARY | ~2019-10-22 | XMS | Encounter Summary ---
Demographics + + + | Address | [address] | | | [place] [address] | + + + | Home Phone [...] [place] | | | | | [address] | | + + + + + | Atif Delgadillo | ECON | [place], [place] | | | | | [address] | | + + + + + | Caleb Dawn | ECON | Unknown | | + + + + + Care Team Providers + +------+ + | Care Sewage Disposal Worker Name | Role | Phone | [...] | | | [place] | | | | | | [address] | | | | | | [phone] | | | +--------+ + + + [...] [place] | | | | | | [address] | | | | | | | | +--------+ + + + + | 05/20/ | Office | Cardiology | Yumiko Del Valle, | | | 2019 | Visit | | MD Lupe TYLER | | | | | | [place] | | | | | | [address] | | | | | | | | +--------+ + + + + documented as of this encounter Visit Diagnoses Not on filedocumented in this encounter"
--- OUTSIDE RECORDS SUMMARY | ~2019-10-22 | XMS | Encounter Summary ---
Demographics + + + | Address | [address] | | | [place] [address] | + + + | Home Phone | | + + + | Preferred Language | Unknown | + + + | Marital Status | Single | + + + | Christianity Affiliation | Unknown | + + + | Race | Unknown | + + + | Ethnic Group | Unknown | + + + Author + + + | Author | [facility] | | | and [place] | + + + | Organization | [facility] | | | and [place] | + + + | Address | Unknown | + + + | Phone | Unavailable | + + + Support + + + + + | Name | Relationship | Address | Phone | + + + + + | Hi Dawn | ECON | [place] | | | | | [address] | | + + + + + | Atif Delgadillo | ECON | [place] | | | | | [address] | | + + + + + | Caleb Dawn | ECON | Unknown | | + + + + + Care Team Providers + +------+ + | Care Comber Tender Name | Role | Phone | [...] | kidney | MD [address] | [address] | | | | | disease, | [place] | [place], [place] | | | | | stage 3 | [place] 2 | 100 [place] | | | | | (moderate) | [place], | [place] | | | | | (HCC) | [place] | [address] Phone: | | | | | Hypertension | [address] | [phone] | | | | | , essential | Phone: | Fax: | | | | | Type 2 | [phone] | [phone] | | | | | diabetes | Fax: | | | | | | mellitus | [phone] | | | | | | with [...] NEPHROLOGY [address] | M, DO [address] | disease, stage III | | | | [address] | [place], [place] [address] | (moderate) (HCC) | | | | [place] | [place] | (Primary Dx); Type 2 | | | | [address] | [address] | diabetes mellitus | | | | [phone] | | with stage 3 chronic | | | | | | kidney disease, | | | | | | unspecified whether | | | | | | rn long term care insulin | | | | | | use ([facility]); | | | | | | Hyperparathyroidism | | | | | | due to renal | | | | | | insufficiency ([facility]); | | | | | | [...] 3:00 PM PSTat the CKD Clinic at [place]. documented in this encounter Progress Notes [...] Take 1,000 mg by mouth [place]-3 Fatty Acids (FISH OIL) 1200 MG CAPS [...] PHOSEX 3.2 09/18/2019 PTHEX 156.2 (A) 09/18/2019 TNA3HYH 5.7 06/20/2018 Lab Results Component Value Date [...] blood pressure. 2. He states that his Derrick Operator has a fingerstick HbA1c which showed his [...] 6 months at the CKD Clinic at [place], [place]. He will have a CBC, CMP, PO4, HbA1c, iPTH, lipid profile, and 24 Hour urine one week prio r to that. Electronically signed by Freddy Sanchez DO. 09/20/19 9:52 CC: Anoop Vargas MD, [facility] Yumiko Del Valle MD, FACC documented in [...] [place] | | | | | | [address] | | | | | | | | +--------+ + + + + | 05/20/ | Office | Cardiology | Yumiko Del Valle, | | | 2019 | Visit | | [address] | | | | | | [place] | | | | | | [address] | | | | | | | [...]
--- OUTSIDE RECORDS SUMMARY | ~2019-10-22 | XMS | Encounter Summary ---
Demographics + + + | Address | [address] | | | [place] [address] | + + + | Home Phone [...] [place] | | | | | [address] | | + + + + + | Atif Delgadillo | ECON | [place], [place] | | | | | [address] | | + + + + + | Caleb Dawn | ECON | Unknown | | + + + + + Care Team Providers + +------+ + | Care Top Precipitator Operator Name | Role | Phone | [...] NEPHROLOGY [address] | M, DO [address] | | | | | [address] [place] | [place], [place] [address] | | | | | [place], [place] | [place] | | | | | [address] | [address] | | | | | [phone] | | | +--------+ + + + [...] | Visit | | M, DO [address] | | | | | | [address] [place] [address] | | | | | | [place] | | | | | | [address] | | | | | | | | +--------+ + + + + | 05/20/ | Office | Cardiology | Yumiko Del Valle, | | | 2019 | Visit | | MD Lupe TYLER | | | | | | [place] [facility] [place] [place] | | | | | | [address] | | | | | | | [...] | | | LAB | | | Stateless, | | | | | | External [...]
--- OUTSIDE RECORDS SUMMARY | ~2019-10-22 | XMS | Encounter Summary ---
Demographics + + + | Address | [address] | | | [place] [address] | + + + | Home Phone [...] [place] | | | | | [address] | | + + + + + | Atif Delgadillo | ECON | [place], [place] | | | | | [address] | | + + + + + | Caleb Dawn | ECON | Unknown | | + + + + + Care Team Providers + +------+ + | Care Rip Sawyer Name | Role | Phone | + +------+ + PCP | Unavailable | + +------+ + Encounter Details +--------+ + + + + | Date | Type | Department | Care Team | Description | +--------+ + + + + | 10/03/ | Hospital | [facility] | | | | 2006 | Encounter | MED CTR LABORATORY | | | | | | [address] | | | | | | [place] | | | | | | [address] | | | | | | [phone] | | | +--------+ + + + [...] | Visit | | DO Olayinka [address] [place] [address] | | | | | | [place] | | | | | | [place] | | | | | | [address] | | | | | | | | +--------+ + + + + | 05/20/ | Office | Cardiology | Yumiko Del Valle, | | | 2019 | Visit | | MD Lupe TYLER | | | | | | [place] | | | | | | [phone] | | | | | | | | +--------+ + + + + documented as of this encounter Visit Diagnoses Not on filedocumented in this encounter"
--- OUTSIDE RECORDS SUMMARY | ~2019-10-22 | XMS | Encounter Summary ---
Demographics + + + | Address | [address] | | | [place] [address] | + + + | Home Phone [...] [place] | | | | | [address] | | + + + + + | Atif Delgadillo | ECON | [place], [place] | | | | | [address] | | + + + + + | Caleb Dawn | ECON | Unknown | | + + + + + Care Team Providers + +------+ + | Care Associate Financial Advisor Name | Role | Phone | [...] NEPHROLOGY [address] | M, DO [address] | | | | | [address] | [place], [place] [address] | | | | | [place], [place] | [place] | | | | | [address] | [address] | | | | | [phone] | | | +--------+ + + + [...] | Visit | | M, DO [address] | | | | | | [place], [place] [address] | | | | | | [place] | | | | | | [address] | | | | | | | | +--------+ + + + + | 05/20/ | Office | Cardiology | Yumiko Del Valle, | | | 2019 | Visit | | [address] | | | | | | [place], [place] | | | | | | [address] | | | | | | | [...] | 1.014 | | | | | [place], | | | | | | External [...] | | | LAB | | | [place], | | | | | | External [...]
--- OUTSIDE RECORDS SUMMARY | ~2019-10-22 | XMS | Encounter Summary ---
Demographics + + + | Address | [address] | | | [place] [address] | + + + | Home Phone [...] [place] | | | | | [address] | | + + + + + | Atif Delgadillo | ECON | [place], [place] | | | | | [address] | | + + + + + | Caleb Dawn | ECON | Unknown | | + + + + + Care Team Providers + +------+ + | Care Director Of [employer] Name | Role | Phone | + [...] + | 12/25/ | Clinical | [facility] | Freddy Sanchez | Anemia in chronic | | 2013 | Support | NEPHROLOGY [address] | M, DO [address] [place] | kidney | | | | [address] [facility] 100 | [place], [facility] 100 | disease(285.21) | | | | [place] | [place] | (Primary Dx) | | | | [address] | [address] | | | | | [phone] | | | +--------+ + + + [...] 2019 | Visit | | DO Olayinka [address] [place] [address] | | | | | | [place] | | | | | | [place] | | | | | | [address] | | | | | | | | +--------+ + + + + | 05/20/ | Office | Cardiology | Yumiko Del Valle, | | | 2019 | Visit | | MD Lupe TYLER | | | | | | [place] | | | | | | [address] | | | | | | | [...]
--- OUTSIDE RECORDS SUMMARY | ~2019-10-22 | XMS | Encounter Summary ---
Demographics + + + | Address | [address] | | | [place] [address] | + + + | Home Phone [...] [place] | | | | | [address] | | + + + + + | Atif Delgadillo | ECON | [place], [place] | | | | | [address] | | + + + + + | Caleb Dawn | ECON | Unknown | | + + + + + Care Team Providers + +------+ + | Care Control Manager Name | Role | Phone | [...] | (Screening) (Log | | | | [place], | [place], | from 01/04/14 to | | | | [place] [address] | [place] [address] | 01/23/14) | | | | [phone] | [phone] | | | | | | | [...] 2019 | Visit | | DO Olayinka [address] [place] [address] | | | | | | [place] | | | | | | [place] | | | | | | [address] | | | | | | | | +--------+ + + + + | 05/20/ | Office | Cardiology | Yumiko Del Valle, | | | 2019 | Visit | | MD Lupe TYLER | | | | | | [place] | | | | | | [phone] | | | | | | | | +--------+ + + + + documented as of this encounter Visit Diagnoses Not on filedocumented in this encounter"
--- OUTSIDE RECORDS SUMMARY | ~2019-10-22 | XMS | Encounter Summary ---
Demographics + + + | Address | [address] | | | [place] [address] | + + + | Home Phone [...] [place] | | | | | [address] | | + + + + + | Atif Delgadillo | ECON | [place], [place] | | | | | [address] | | + + + + + | Caleb Dawn | ECON | Unknown | | + + + + + Care Team Providers + +------+ + | Care Laborer [place] Name | Role | Phone | + +------+ + PCP | Unavailable | + +------+ + Encounter Details +--------+ + + + + | Date | Type | Department | Care Team | Description | +--------+ + + + + | 01/22/ | Hospital | [facility] | | | | 2006 | Encounter | MED CTR LABORATORY | | | | | | [address] | | | | | | [place] | | | | | | [address] | | | | | | [phone] | | | +--------+ + + + [...] 2019 | Visit | | DO Olayinka [address] [place] [address] | | | | | | [place] | | | | | | [place] | | | | | | [address] | | | | | | | | +--------+ + + + + | 05/20/ | Office | Cardiology | Yumiko Del Valle, | | | 2019 | Visit | | MD Lupe TYLER | | | | | | [place] | | | | | | [phone] | | | | | | | | +--------+ + + + + documented as of this encounter Visit Diagnoses Not on filedocumented in this encounter"
--- OUTSIDE RECORDS SUMMARY | ~2019-10-22 | XMS | Encounter Summary ---
Demographics + + + | Address | [address] | | | [place] [address] | + + + | Home Phone [...] [place] | | | | | [address] | | + + + + + | Atif Delgadillo | ECON | [place], [place] | | | | | [address] | | + + + + + | Caleb Dawn | ECON | Unknown | | + + + + + Care Team Providers + +------+ + | Care Light Coil Winder Name | Role | Phone | + [...] NEPHROLOGY [address] | M, DO [address] | | | | | [address] | [place] | | | | | [place], [place] | [place] | | | | | [address] | [address] | | | | | [phone] | | | +--------+ + + + [...] | Visit | | M, DO [address] | | | | | | [place] | | | | | | [place] | | | | | | [address] | | | | | | | | +--------+ + + + + | 05/20/ | Office | Cardiology | Yumiko Del Valle, | | | 2019 | Visit | | [address] | | | | | | [place], [place] | | | | | | [address] | | | | | | | [...]
--- OUTSIDE RECORDS SUMMARY | ~2019-10-22 | XMS | Encounter Summary ---
Demographics + + + | Address | [address] | | | [place] [address] | + + + | Home Phone [...] [place] | | | | | [address] | | + + + + + | Atif Delgadillo | ECON | [place], [place] | | | | | [address] | | + + + + + | Caleb Dawn | ECON | Unknown | | + + + + + Care Team Providers + +------+ + | Care College President Name | Role | Phone | + +------+ + PCP | Unavailable | + +------+ + Encounter Details +--------+ + + + + | Date | Type | Department | Care Team | Description | +--------+ + + + + | 01/22/ | Hospital | [facility] | | | | 2006 | Encounter | MED CTR LABORATORY | | | | | | [address] | | | | | | [place] | | | | | | [address] | | | | | | [phone] | | | +--------+ + + + [...] 2019 | Visit | | DO Olayinka [address] [place] [address] | | | | | | [place] | | | | | | [place] | | | | | | [address] | | | | | | | | +--------+ + + + + | 05/20/ | Office | Cardiology | Yumiko Del Valle, | | | 2019 | Visit | | MD Lupe TYLER | | | | | | [place] | | | | | | [phone] | | | | | | | | +--------+ + + + + documented as of this encounter Visit Diagnoses Not on filedocumented in this encounter"
--- OUTSIDE RECORDS SUMMARY | ~2019-10-22 | XMS | Encounter Summary ---
Demographics + + + | Address | [address] | | | [place] [address] | + + + | Home Phone [...] [place] | | | | | [address] | | + + + + + | Atif Delgadillo | ECON | [place], [place] | | | | | [address] | | + + + + + | Caleb Dawn | ECON | Unknown | | + + + + + Care Team Providers + +------+ + | Care Survey Research Center Director Name | Role | Phone [...] NEPHROLOGY [address] | M, DO [address] [place] | disease, stage III | | | | [address] [place] [address] | [place], [place] | (moderate) (Primary | | | | [place], [place] | [place], [place] | Dx); Hypertension | | | | [address] | [address] | | | | | [phone] | | | +--------+ + + + [...] | Visit | | DO Olayinka [address] | | | | | | [place], [place] | | | | | | [place] | | | | | | [address] | | | | | | | | +--------+ + + + + | 05/20/ | Office | Cardiology | Yumiko Del Valle, | | | 2019 | Visit | | [address] | | | | | | [place] | | | | | | [address] | | | | | | | [...]
--- OUTSIDE RECORDS SUMMARY | ~2019-10-22 | XMS | Encounter Summary ---
Demographics + + + | Address | [address] | | | [place] [address] | + + + | Home Phone [...] [place] | | | | | [address] | | + + + + + | Atif Delgadillo | ECON | [place], [place] | | | | | [address] | | + + + + + | Caleb Dawn | ECON | Unknown | | + + + + + Care Team Providers + +------+ + | Care Assistant Corporation Counsel Name | Role | Phone | + [...] [address] | M, DO [address] [place] | | | | | [address] [place] [address] | [place], [place] [address] | | | | | [place], [place] | [place] | | | | | [address] | [address] | | | | | [phone] | | | +--------+ + + + [...] | Visit | | M, DO [address] | | | | | | [place], [place] [address] | | | | | | [place] | | | | | | [address] | | | | | | | | +--------+ + + + + | 05/20/ | Office | Cardiology | Yumiko Del Valle, | | | 2019 | Visit | | [address] | | | | | | [place] | | | | | | [address] | | | | | | | [...] | + + + + + | [facility] | [address] | [place] | [phone] | | [facility] | | [address] | | | - LABORATORY | | [...] +--------+ + + + | BUN, | 35 (A) | 6 - 23 [...] + +---------+ + + External Lab: AST (06/01/2016) + +-------+ + + + | [...]
--- OUTSIDE RECORDS SUMMARY | ~2019-10-22 | XMS | Encounter Summary ---
Demographics + + + | Address | [address] | | | [place] [address] | + + + | Home Phone [...] [place] | | | | | [address] | | + + + + + | Atif Delgadillo | ECON | [place] | | | | | [address] | | + + + + + | Caleb Dawn | ECON | Unknown | | + + + + + Care Team Providers + +------+ + | Care Digital Associate Name | Role | Phone | [...] NEPHROLOGY [address] | M, DO [address] [place] | | | | | [address] | [place], [place] [address] | | | | | [place], [place] | [place], [place] | | | | | [address] | [address] | | | | | [phone] | | | +--------+ + + + [...] Bhagat | | | | | | [place], [place] [address] | | | | | | [place] | | | | | | [address] | | | | | | | | +--------+ + + + + | 05/20/ | Office | Cardiology | Yumiko Del Valle, | | | 2019 | Visit | | [address] | | | | | | [place] | | | | | | [address] | | | | | | | [...]
--- OUTSIDE RECORDS SUMMARY | ~2019-10-22 | XMS | Encounter Summary ---
Demographics + + + | Address | [address] | | | [place] [address] | + + + | Home Phone [...] [place] | | | | | [address] | | + + + + + | Atif Delgadillo | ECON | [place], [place] | | | | | [address] | | + + + + + | Caleb Dawn | ECON | Unknown | | + + + + + Care Team Providers + +------+ + | Care Coverage Specialist Name | Role | Phone | [...] + + | 12/20/ | Telephone | [facility] | Freddy Sanchez | Knee Pain | | 2013 | | NEPHROLOGY [address] | M, DO [address] | (Requesting pain | | | | [address] [place] | [place], [place] | medication) | | | | [place] | [place] | | | | | [address] | [id number] | | | | | [phone] | | | +--------+ + + + [...] | Visit | | DO Olayinka [address] [place] [address] | | | | | | [place] | | | | | | [place] | | | | | | [address] | | | | | | | | +--------+ + + + + | 05/20/ | Office | Cardiology | Yumiko Del Valle, | | | 2019 | Visit | | MD Lupe TYLER | | | | | | [place] | | | | | | [phone] | | | | | | | | +--------+ + + + + documented as of this encounter Visit Diagnoses Not on filedocumented in this encounter"
--- OUTSIDE RECORDS SUMMARY | ~2019-10-22 | XMS | Encounter Summary ---
Demographics + + + | Address | [address] | | | [place] [address] | + + + | Home Phone [...] [place] | | | | | [address] | | + + + + + | Atif Delgadillo | ECON | [place], [place] | | | | | [address] | | + + + + + | Caleb Dawn | ECON | Unknown | | + + + + + Care Team Providers + +------+ + | Care Planer Operator / Grader Name | Role | Phone | + +------+ + PCP | Unavailable | + +------+ + Encounter Details +--------+ + + + + | Date | Type | Department | Care Team | Description | +--------+ + + + + | 01/16/ | Hospital | [facility] | | | | 2006 | Encounter | MED CTR XRAY [address] | | | | | | [address] | | | | | | [place] [address] | | | | | | [phone] | | | +--------+ + + + [...] | Visit | | DO Anival Bhagat Yulee | | | | | | [place] | | | | | | [place] | | | | | | [phone] | | | | | | | | +--------+ + + + + | 05/20/ | Office | Cardiology | Yumiko Del Valle, | | | 2019 | Visit | | MD Lupe TYLER | | | | | | [place] | | | | | | [phone] | | | | | | | | +--------+ + + + + documented as of this encounter Visit Diagnoses Not on filedocumented in this encounter"
--- OUTSIDE RECORDS SUMMARY | ~2019-10-22 | XMS | Encounter Summary ---
Demographics + + + | Address | [address] | | | [place] [address] | + + + | Home Phone [...] [place] | | | | | [address] | | + + + + + | Atif Delgadillo | ECON | [place], [place] | | | | | [address] | | + + + + + | Caleb Dawn | ECON | Unknown | | + + + + + Care Team Providers + +------+ + | Care Map And Chart Mounter Name | Role | Phone | + [...] | unspecified | MD [address] | [address] [place] | | | | | type | [place] | [address] [place] | | | | | diabetes | [place] | [place] | | | | | mellitus | [place], | [place], [place] | | | | | with renal | [place] | [address] Phone: | | | | | manifestatio | [address] | [phone] | | | | | ns, not | Phone: | Fax: | | | | | stated as | [phone] | [phone] | | | | | uncontrolled | Fax: | | | | | | [phone] | [phone] | | | | | | (HCC) [...] | | [address] [place] | [place], [place] | disease with chronic | | | | [place] | [place] | kidney disease | | | | [address] | [address] | stage I through | | | | [phone] | | stage IV, or | | [...] losartan, and was seen by his Cardiology, RUG MEASURER, Selene Betancourt, who decreased it to 25 [...] 05/15/2014 PHOS 3.5 05/15/2014 PTH 112.9 05/15/2014 [id number] 5.2 02/12/2014 Lab Results Component Value Date [...] continue the omeprazole 40 mg, QD , clinical secretary and DC the carafate. He is agreeable to this. 5. Will plan to see him back on 09/22/14, at the [facility], /[place], [place]. He will have a CBC, CMP, PO4, [...] | Visit | | DO Olayinka [address] [place] [address] | | | | | | [place] [address] | | | | | | [place] | | | | | | [address] | | | | | | | | +--------+ + + + + | 05/20/ | Office | Cardiology | Yumiko Del Valle, | | | 2019 | Visit | | MD Lupe TYLER | | | | | | [place] | | | | | | [address] | | | | | | | [...]
--- OUTSIDE RECORDS SUMMARY | ~2019-10-22 | XMS | Encounter Summary ---
Demographics + + + | Address | [address] | | | [place] [address] | + + + | Home Phone [...] [place] | | | | | [address] | | + + + + + | Atif Delgadillo | ECON | [place], [place] | | | | | [address] | | + + + + + | Caleb Dawn | ECON | Unknown | | + + + + + Care Team Providers + +------+ + | Care Mutual Fund Analyst Name | Role | Phone | [...] | | | | | | [place] [address] | | | | | | [phone] | | | +--------+ + + + [...] | Visit | | DO [address]ayinka [address] [place] | | | | | | [place], [place] [address] | | | | | | [place] | | | | | | [address] | | | | | | | | +--------+ + + + + | 05/20/ | Office | Cardiology | Ymuiko Del Valle, | | | 2019 | Visit | | MD Lupe TYLER | | | | | | [place] | | | | | | [address] | | | | | | | | +--------+ + + + + documented as of this encounter Visit Diagnoses Not on filedocumented in this encounter"
--- OUTSIDE RECORDS SUMMARY | ~2019-10-22 | XMS | Encounter Summary ---
Demographics + + + | Address | [address] | | | [place] [address] | + + + | Home Phone [...] [place] | | | | | [address] | | + + + + + | Atif Delgadillo | ECON | [place], [place] | | | | | [address] | | + + + + + | Caleb Dawn | ECON | Unknown | | + + + + + Care Team Providers + +------+ + | Care Photography Professor Name | Role | Phone | + [...] NEPHROLOGY [address] | M, DO [address] | disease, stage III | | | | [address] [place] | [place], [place] [address] | (moderate) (Primary | | | | [place], [place] | [place] | Dx); Hypertension | | | | [address] | [address] | | | | | [phone] | | | +--------+ + + + [...] | 03/16/ | Off-Site | Nephrology | Daniel Freddy | | | 2019 | Visit | | [address] | | | | | | [place] [address] | | | | | | [place] | | | | | | [address] | | | | | | | | +--------+ + + + + | 05/20/ | Office | Cardiology | Yumiko Del Valle, | | | 2019 | Visit | | MD Lupe TYLER | | | | | | [place] | | | | | | [address] | | | | | | | [...]
--- OUTSIDE RECORDS SUMMARY | ~2019-10-22 | XMS | Encounter Summary ---
Demographics + + + | Address | [address] | | | [place] [address] | + + + | Home Phone | | + + + | Preferred Language | Unknown | + + + | Marital Status | Single | + + + | Denominational Affiliation | Unknown | + + + | Race | Unknown | + + + | Ethnic Group | Unknown | + + + Author + + + | Author | [facility] | | | and [place] | + + + | Organization | [facility] | | | and [place] | + + + | Address | Unknown | + + + | Phone | Unavailable | + + + Support + + + + + | Name | Relationship | Address | Phone | + + + + + | Hi Dawn | ECON | [place] | | | | | [address] | | + + + + + | Atif Delgadillo | ECON | [place], [place] | | | | | [address] | | + + + + + | Caleb Dawn | ECON | Unknown | | + + + + + Care Team Providers + +------+ + | Care Infrastructure Manager Name | Role | Phone | [...] | kidney | MD [address] | [address] | | | | | disease, | [place] | [place] | | | | | stage III | [place] | [place] | | | | | (moderate) | [place], | [place] | | | | | (HCC) Type | [place] | [address] Phone: | | | | | [place] | [address] | [phone] | | | | | unspecified | Phone: | Fax: | | | | | type | [phone] | [phone] | | | | | diabetes | Fax: | | | | | | mellitus | [phone] | | | | | | with [...] | | [address] | [place], [place] [address] | 3 chronic kidney | | | | [place], [place] | [place], [place] | disease (HCC) | | | | [address] | [phone] | (Primary Dx); | | | | [phone] | | Chronic kidney | | | [...] in Microbiolog 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 Outpatient Prescriptions Marked as Taking for the [...] 10/22/2015 PHOSEX 4.0 10/22/2015 PTHEX 129* 10/22/2015 TVQ6SAV 7.0 10/22/2015 Lab Results Component Value Date [...] 70 pg/ml to help dec rease his long chain beamer CV risk. 3. I discussed with Dr. [...] | Visit | | DO Olayinka [address] | | | | | | [place], [...] | | | | | | [place] [facility] [place] | | | | | | [address] | | | | | | | [...]
--- OUTSIDE RECORDS SUMMARY | ~2019-10-22 | XMS | Encounter Summary ---
Demographics + + + | Address | [address] | | | [place] [address] | + + + | Home Phone [...] [place] | | | | | [address] | | + + + + + | Atif Delgadillo | ECON | [place] | | | | | [address] | | + + + + + | Caleb Dawn | ECON | Unknown | | + + + + + Care Team Providers + +------+ + | Care Servicenow Administrator Name | Role | Phone | [...] | kidney | MD [address] | [address] [place] | | | | | disease, | Panacea | [place], [place] | | | | | stage 3 | [place] | 100 [place] | | | | | (moderate) | [place] | [place] | | | | | (HCC) | [place] | [address] Phone: | | | | | Hypertension | [address] | [phone] | | | | | , essential | Phone: | Fax: | | | | | Type 2 | [phone] | [phone] | | | | | diabetes | Fax: | | | | | | mellitus | [phone] | | | | | | with stage 3 | | | | | | | chronic | | | | | | | kidney | | | | | | | disease | | | | | | | (HCC) | | | | | | | Procedures | | | | | | | [place] OFFICE | | | | | | [...] [address] | M, DO [address] [place] | disease, stage III | | | | [address] | [place], [place] [address] | (moderate) (HCC) | | | | [place], [place] | [place], [place] | (Primary Dx); Type 2 | | | | [address] | [address] | diabetes mellitus | | | | [phone] | | with stage 3 chronic | | | | | | kidney disease, | | | | | | unspecified whether | | | | | | intermediate insulin | | | | | | use ([facility]); | | | | | | Hyperparathyroidism | | | | | | due to renal | | | | | | insufficiency ([facility]); | | | | | | Hypercalcemia [...] (ELOCON) 0.1 % cream Apply topically Daily. Bertram-3 Fatty Acids (FISH OIL) 1200 MG CAPS [...] PHOSEX 2.6 05/02/2019 PTHEX 87.75 (A) 05/02/2019 [id number] 5.7 06/20/2018 Lab Results Component Value Date [...] 4 months at the [facility] Clinic at [place], [place]. He will have a CBC, CMP, PO4, HbA1c, iPTH, and spot Urine Pro/Cr ratio one week prior to that. I told him that I would gladly pass the above changes on to Dr. Moyer[facility], mi s PCP. Electronically signed by Freddy Sanchez DO. 05/06/19 14:46 CC: Anoop Vargas MD, [facility] Yumiko Del Valle MD, [facility] Matheus Gregory MD, [facility], [place] documented in thi s encounter Plan of Treatment +--------+ + + + + | Date | Type | Specialty | Care Team | Description | +--------+ + + + + | 03/16/ | Off-Site | Nephrology | Freddy Sanchez | | 2019 | Visit | | DO Anival Bhagat [place] | | | | | | [place] | | | | | | [place] | | | | | | [address] | | | | | | | | +--------+ + + + + | 05/20/ | Office | Cardiology | Yumiko Del Valle, | | | 2019 | Visit | | MD Lupe TYLER | | | | | | [place] | | | | | | [phone] | | | | | | | [...]
--- OUTSIDE RECORDS SUMMARY | ~2019-10-22 | XMS | Encounter Summary ---
Demographics + + + | Address | [address] | | | [place] [address] | + + + | Home Phone [...] + + + | Author | [facility] | | | and [place] | + + + | Organization | [facility] | | | and [place] | + + + | Address | Unknown | + + + | Phone | Unavailable | + + + Support + + + + + | Name | Relationship | Address | Phone | + + + + + | Hi Dawn | ECON | [place] | | | | | [address] | | + + + + + | Atif Delgadillo | ECON | [place], [place] | | | | | [address] | | + + + + + | Caleb Dawn | ECON | Unknown | | + + + + + Care Team Providers + +------+ + | Care Chemical Treatment Operator Name | Role | Phone | [...] | kidney | MD [address] | [address] [place] | | | | | disease, | [place] | [place], [place] | | | | | stage 3 | [place] | [place] | | | | | (moderate) | [place], | [place] | | | | | (HCC) | [place] | [address] Phone: | | | | | Hypertension | [address] | [phone] | | | | | , essential | Phone: | Fax: | | | | | Type 2 | [phone] | [phone] | | | | | diabetes | Fax: | | | | | | mellitus | [phone] | | | | | | with stage 3 | | | | | | | chronic | | | | | | | kidney | | | | | | | disease | | | | | | | (HCC) | | | | | | | Procedures | | | | | | | [place] OFFICE | | | | | | [...] | | [address] | [place], [place] [address] | (moderate) (Primary | | | | [place] | [place] | Dx); Type 2 diabetes | | | | [address] | [address] | mellitus with stage | | | | [phone] | | 3 chronic kidney | | [...] (ELOCON) 0.1 % cream Apply topically Daily. [place]ore-3 Fatty Acids (FISH OIL) 300 MG CAPS [...] 06/01/2016 PHOSEX 4.0 10/22/2015 PTHEX 129* 10/22/2015 [id number] 5.9 06/01/2016 Lab Results Component Value Date [...] 6 mo. at the [facility] Clinic at [facility]. He will hav e a CBC, CMP, [...] | Visit | | DO Olayinka [address] [place] | | | | | | [facility] 100 | | | | | | [place] | | | | | | [phone] | | | | | | | | +--------+ + + + + | 05/20/ | Office | Cardiology | Yumiko Del Valle, | | | 2019 | Visit | | [address] | | | | | | [place] | | | | | | [address] | | | | | | | [...]
--- OUTSIDE RECORDS SUMMARY | ~2019-10-22 | XMS | Encounter Summary ---
Demographics + + + | Address | [address] | | | [place] [address] | + + + | Home Phone [...] [place] | | | | | [address] | | + + + + + | Atif Delgadillo | ECON | [place], [place] | | | | | [address] | | + + + + + | Caleb Dawn | ECON | Unknown | | + + + + + Care Team Providers + +------+ + | Care Interventional Pain Physician Name | Role | Phone | + [...] [address] | M, DO [address] [place] | | | | | [address] | [place], [place] [address] | | | | | [place], [place] | [place] | | | | | [address] | [address] | | | | | [phone] | | | +--------+ + + + [...] Visit | | M, DO [address] [place] | | | | | | [place], [place] [address] | | | | | | [place] | | | | | | [address] | | | | | | | | +--------+ + + + + | 05/20/ | Office | Cardiology | Yumiko Del Valle, | | | 2019 | Visit | | [address] | | | | | | [place], [place] | | | | | | [address] | | | | | | | [...]
--- OUTSIDE RECORDS SUMMARY | ~2019-10-22 | XMS | Encounter Summary ---
Demographics + + + | Address | [address] | | | [place] [address] | + + + | Home Phone | | + + + | Preferred Language | Unknown | + + + | Marital Status | Single | + + + | Mandaeism Affiliation | Unknown | + + + [...] [place] | | | | | [address] | | + + + + + | Atif Delgadillo | ECON | [place], [place] | | | | | [address] | | + + + + + | Caleb Dawn | ECON | Unknown | | + + + + + Care Team Providers + +------+ + | Care Commercial Credit Lead Name | Role | Phone | [...] NEPHROLOGY [address] | M, DO [address] [place] | disease, stage III | | | | [address] | [place], [place] [address] | (moderate) (Primary | | | | [place], [place] | [place], [place] | Dx); Hypertension | | | | [address] | [address] | | | | | [phone] | | | +--------+ + + + [...] - 03/20 1:41 PM PDTLabs sent to [facility] 04/28/2014 documented in this e ncounter Plan of Treatment +--------+ + + + + | Date | Type | Specialty | Care Team | Description | +--------+ + + + + | 03/16/ | Off-Site | Nephrology | Freddy Sanchez | | | 2019 | Visit | | DO Olayinka [address] [place] [address] | | | | | | [place] | | | | | | [place] | | | | | | [address] | | | | | | | | +--------+ + + + + | 05/20/ | Office | Cardiology | Yumiko Del Valle, | | | 2019 | Visit | | MD Lupe TYLER | | | | | | [place] | | | | | | [phone] | | | | | | | [...]
--- OUTSIDE RECORDS SUMMARY | ~2019-10-22 | XMS | Encounter Summary ---
Demographics + + + | Address | [address] | | | [place] [address] | + + + | Home Phone [...] [place] | | | | | [address] | | + + + + + | Atif Delgadillo | ECON | [place], [place] | | | | | [address] | | + + + + + | Caleb aDwn | ECON | Unknown | | + + + + + Care Team Providers + +------+ + | Care Tissue Specialist Name | Role | Phone | [...] [address] | | | | | [place], | [place], | | | | | [place] [address] | [place] [address] | | | | | [phone] | [phone] | | | | | | | [...] | Visit | | M, DO [address] [place] | | | | | | [place], [place] [address] | | | | | | [place] | | | | | | [address] | | | | | | | | +--------+ + + + + | 05/20/ | Office | Cardiology | Yumiko Del Valle, | | | 2019 | Visit | | [address] | | | | | | [place], [place] | | | | | | [address] | | | | | | | [...] St | [place] | | | [facility] | | [address] | | | - LABORATORY | | [...] St | [place] | | | [facility] | | [address] | | | - LABORATORY | | [...]
--- OUTSIDE RECORDS SUMMARY | ~2019-10-22 | XMS | Encounter Summary ---
Demographics + + + | Address | [address] | | | [place] [address] | + + + | Home Phone [...] [place] | | | | | [address] | | + + + + + | Atif Delgadillo | ECON | [place], [place] | | | | | [address] | | + + + + + | Caleb Dawn | ECON | Unknown | | + + + + + Care Team Providers + +------+ + | Care Order Dispatcher Name | Role | Phone | + [...] NEPHROLOGY [address] | M, DO [address] [place] | | | | | [address] | [place], [place] [address] | | | | | [place], [place] | [place] | | | | | [address] | [address] | | | | | [phone] | | | +--------+ + + + [...] | Visit | | M, DO [address] [place] | | | | | | [place], [place] [address] | | | | | | [place] | | | | | | [address] | | | | | | | | +--------+ + + + + | 05/20/ | Office | Cardiology | Yumiko Del Valle, | | | 2019 | Visit | | [address] | | | | | | [place], [place] | | | | | | [address] | | | | | | | [...]
--- OUTSIDE RECORDS SUMMARY | ~2019-10-22 | XMS | Encounter Summary ---
Demographics + + + | Address | [address] | | | [place] [address] | + + + | Home Phone [...] [place] | | | | | [address] | | + + + + + | Atif Delgadillo | ECON | [place] | | | | | [address] | | + + + + + | Caleb Dawn | ECON | Unknown | | + + + + + Care Team Providers + +------+ + | Care Digital Solutions Architect Name | Role | Phone [...] NEPHROLOGY [address] | M, DO [address] [place] | disease, stage III | | | | [address] | [place], [place] [address] | (moderate) (HCC) | | | | [place] | [place] | (Primary Dx); Type 2 | | | | [address] | [address] | diabetes mellitus | | | | [phone] | | with stage 3 chronic | [...] [place] | | | | | | [address] | | | | | | | | +--------+ + + + + | 05/20/ | Office | Cardiology | Yumiko Del Valle, | | | 2019 | Visit | | MD Lupe TYLER | | | | | | [place] | | | | | | [phone] | | | | | | | [...]
--- OUTSIDE RECORDS SUMMARY | ~2019-10-22 | XMS | Encounter Summary ---
Demographics + + + | Address | [address] | | | [place] [address] | + + + | Home Phone [...] [place] | | | | | [address] | | + + + + + | Atif Delgadillo | ECON | [place], [place] | | | | | [address] | | + + + + + | Caleb Dawn | ECON | Unknown | | + + + + + Care Team Providers + +------+ + | Care [place] Operator Name | Role | Phone | [...] | (Screening) (Log | | | | [place], | [place], | from 01[birth year]04[birth year]14 to | | | | [place] [address] | [place] [address] | 01/23/14) | | | | [phone] | [phone] | | | | | | | [...] | Visit | | DO Olayinka [address] [place] [address] | | | | | | [place] | | | | | | [place] J[place] | | | | | | [address] | | | | | | | | +--------+ + + + + | 05/20/ | Office | Cardiology | Yumiko Del Valle, | | | 2019 | Visit | | MD Lupe TYLER | | | | | | [place] | | | | | | [phone] | | | | | | | | +--------+ + + + + documented as of this encounter Visit Diagnoses Not on filedocumented in this encounter"
--- OUTSIDE RECORDS SUMMARY | ~2019-10-22 | XMS | Encounter Summary ---
Demographics + + + | Address | [address] | | | [place] [address] | + + + | Home Phone [...] [place] | | | | | [address] | | + + + + + | Atif Delgadillo | ECON | [place] | | | | | [address] | | + + + + + | Caleb Dawn | ECON | Unknown | | + + + + + Care Team Providers + +------+ + | Care Cloth Laminating Supervisor Name | Role | Phone | [...] NEPHROLOGY [address] | M, DO [address] [place] | disease, stage III | | | | [address] | [place], [place] [address] | (moderate) (HCC) | | | | [place] | [place] | (Primary Dx); | | | | [address] | [address] | Hyperlipidemia, | | | | [phone] | | mixed; Type 2 | | | | | | diabetes mellitus | | | | | | with stage 3 chronic | | | | | | kidney disease, | | | | | | unspecified whether | | | | | | assisted insulin | | | | | | [...] nephrology appt on 05/06/19 sent to [facility]. documented in this en counter Plan of [...] [place] | | | | | | [address] | | | | | | | | +--------+ + + + + | 05/20/ | Office | Cardiology | Yumiko Del Valle, | | | 2019 | Visit | | MD Lupe TYLER | | | | | | [place] | | | | | | [phone] | | | | | | | [...] whether | | | | | | assisted insulin | | | | | | use ([facility]) | | + +------+--------+ + + [...]
--- OUTSIDE RECORDS SUMMARY | ~2019-10-22 | XMS | Clinical Summary ---
Demographics + + + | Address | [address] | | | [place] [address] | + + + | Home Phone | | + + + | Preferred Language | Unknown | + + + | Marital Status | Single | + + + | Christianity Affiliation | Unknown | + + + | Race | Unknown | + + + | Ethnic Group | Unknown | + + + Author + + + | Author | [facility] (Historical as of | | | 07-06-19) | + + + | Organization | [facility] (Historical as of | | | 07-06-19) [...] Team Providers + +------+ + | Care Principal Examiner Name | Role | Phone | [...] | | | | | | [place] [address] | | | | | | [phone] | | | | | | | [...] +------+-------+ + | AETNA | AETNA | [id number] | | | | | | - | | | | | | | [place] | | | | | | | [place] - | | | | | | | [place] | | | | | + +--------+ +------+-------+ + | MEDICARE | MEDICA | [id number] | | | [address] | | | RE | | | | [place] [address] | | | PART A | | [...] | Self | [birth year] | Home: | [address] [place] [address] | | | al/Fam | | 1945 | [phone] | [place] | | | [place] | | | [phone] | [address] | + +--------+ +--------+ + +
--- OUTSIDE RECORDS SUMMARY | ~2019-10-22 | XMS | Encounter Summary ---
Demographics + + + | Address | [address] | | | [place] [address] | + + + | Home Phone [...] + | Hi Dawn | ECON | [place] | | | | | [address] | | + + + + + | Atif Delgadillo | ECON | [place], [place] | | | | | [address] | | + + + + + | Caleb Dawn | ECON | Unknown | | + + + + + Care Team Providers + +------+ + | Care Corn Breeder Name | Role | Phone | + [...] + | 01/23/ | Office | [facility] | [place], | Hyperlipidemia | | 2013 | Visit | CARDIOLOGY [address] | ELLA Morton [address] | (Primary Dx); ASCVD | | | | [place], | [place], | (arteriosclerotic | | | | [place] [address] | [place] [address] | cardiovascular | | | | [phone] | [phone] | disease); Type II or | | [...] fraction A. Patient was recently admitted to [facility] with a profound anemia with hemoglobin of [...] made to ensure accuracy; however, inadvertent computerized lactation nurse errors may be pre sent. Electronically signed by: ELLA West 01/23/2014 11:19 documented in this encounter Plan of Treatment +--------+ + + + + | Date | Type | Specialty | Care Team | Description | +--------+ + + + + | 03/16/ | Off-Site | Nephrology | Freddy Sanchez | | 2019 | Visit | | DO Anival Bhagat [place] | | | | | | [place] | | | | | | [place] | | | | | | [address] | | | | | | | | +--------+ + + + + | 05/20/ | Office | Cardiology | Yumiko Del Valle, | | | 2019 | Visit | | MD Lupe TYLER | | | | | | [place] | | | | | | [phone] | | | | | | | [...]
--- OUTSIDE RECORDS SUMMARY | ~2019-10-22 | XMS | Encounter Summary ---
Demographics + + + | Address | [address] | | | [place] [address] | + + + | Home Phone [...] [place] | | | | | [address] | | + + + + + | Atif Delgadillo | ECON | [place], [place] | | | | | [address] | | + + + + + | Caleb Dawn | ECON | Unknown | | + + + + + Care Team Providers + +------+ + | Care Editor Dictionary Name | Role | Phone | + [...] NEPHROLOGY [address] | M, DO [address] [place] | disease, stage III | | | | [address] | [place], [place] [address] | (moderate) (Primary | | | | [place], [place] | [place], [place] | Dx); Type 2 diabetes | | | | [address] | [address] | mellitus with stage | | | | [phone] | | 3 chronic kidney | | | | | | disease, unspecified | | | | | | detention insulin | | | | | | use status ([facility]); | | | | | | Hyperlipidemia, [...] 2019 | Visit | | DO Olayinka [address] [place] [address] | | | | | | [place] [address] | | | | | | [place] | | | | | | [address] | | | | | | | | +--------+ + + + + | 05/20/ | Office | Cardiology | Yumiko Del Valle, | | | 2019 | Visit | | MD Lupe TYLER | | | | | | [place] | | | | | | [phone] | | | | | | | | +--------+ + + + + documented as of this encounter Visit Diagnoses + + | Diagnosis | + + | Chronic kidney disease, stage III (moderate) (HCC) - Primary Chronic kidney disease, | | Stage III (moderate) | + + | Type 2 diabetes mellitus with stage 3 chronic kidney disease, unspecified detention | | insulin use status | + + | Hyperlipidemia, mixed Mixed hyperlipidemia | + + documented in this encounter"
--- OUTSIDE RECORDS SUMMARY | ~2019-10-22 | XMS | Encounter Summary ---
Demographics + + + | Address | [address] | | | [place] [address] | + + + | Home Phone [...] [place] | | | | | [address] | | + + + + + | Atif Delgadillo | ECON | [place], [place] | | | | | [address] | | + + + + + | Caleb Dawn | ECON | Unknown | | + + + + + Care Team Providers + +------+ + | Care Raw Juice Weigher Name | Role | Phone | [...] + + | 10/29/ | Office | [facility] | [place], | ASCVD | | 2015 | Visit | CARDIOLOGY [address] | ELLA Morton [address] | (arteriosclerotic | | | | [place], | [place], | cardiovascular | | | | [place] [address] | [place] [address] | disease) (Primary | | | | [phone] | [phone] | Dx); Hypertension, | | | | [...] (ELOCON) 0.1 % cream Apply topically Daily. [place]-3 Fatty Acids (FISH OIL) 300 MG CAPS [...] PLTEX 131* 10/22/2015 I reviewed records from [facility] for office visit on 11/06/2015. ASSESSMENT: 1. Congestive heart failure with preserved left ventricular ejection fraction A. Patient was recently admitted to [facility] with a profound anemia with hemoglobin of [...] this chart may have been created with [employer] voice recognition software. Occasi onal wrong-word or [...] 2019 | Visit | | DO Olayinka [address] [place] [address] | | | | | | [place], [place] [address] | | | | | | [place] | | | | | | [address] | | | | | | | | +--------+ + + + + | 05/20/ | Office | Cardiology | Yumiko Del Valle, | | | 2019 | Visit | | MD [address] | | | | | | [place] | | | | | | [address] | | | | | | | [...] MD | | | | | | ([id number]) on 10/29/2015 | | | | | [...]
--- OUTSIDE RECORDS SUMMARY | ~2019-10-22 | XMS | Encounter Summary ---
Demographics + + + | Address | [address] | | | [place] [address] | + + + | Home Phone [...] [place] | | | | | [address] | | + + + + + | Atif Delgadillo | ECON | [place], [place] | | | | | [address] | | + + + + + | Caleb Dawn | ECON | Unknown | | + + + + + Care Team Providers + +------+ + | Care Radiographic Technologist Name | Role | Phone | + [...] disease, stage III | | | | [facility] 100 | | (moderate); Type II | | | | [place] | | or unspecified type | | | | [address] | | diabetes mellitus | | | | [phone] | | with renal | | | [...] | Visit | | DO Olayinka [address] [place] | | | | | | [place] [address] | | | | | | [place] | | | | | | [address] | | | | | | | | +--------+ + + + + | 05/20/ | Office | Cardiology | Yumiko Del Valle, | | | 2019 | Visit | | MD Lupe TYLER | | | | | | [place] | | | | | | [address] | | | | | | | | +--------+ + + + + documented as of this encounter Visit Diagnoses + + | Diagnosis | + + | Chronic kidney disease, stage III (moderate) ([facility]) Chronic kidney disease, Stage III | | (moderate) | + + | Type II or unspecified type diabetes mellitus with renal manifestations, not stated as | | uncontrolled(250.40) ([facility]) Type II or unspecified type diabetes mellitus [...]
--- OUTSIDE RECORDS SUMMARY | ~2019-10-22 | XMS | Encounter Summary ---
Demographics + + + | Address | [address] | | | [place] [address] | + + + | Home Phone [...] [place] | | | | | [address] | | + + + + + | Atif Delgadillo | ECON | [place] | | | | | [address] | | + + + + + | Caleb Dawn | ECON | Unknown | | + + + + + Care Team Providers + +------+ + | Care Skate Hop Name | Role | Phone | + [...] | kidney | MD [address] | [address] [place] | | | | | disease, | [place] | [place], [place] | | | | | stage 3 | [place] | [address] [place] | | | | | (moderate) | [place] | [place] | | | | | (HCC) | [place] | [address] Phone: | | | | | Hypertension | [address] | [phone] | | | | | , essential | Phone: | Fax: | | | | | Type 2 | [phone] | [phone] | | | | | diabetes | Fax: | | | | | | mellitus | [phone] | | | | | | with [...] | | [address] | [place], [place] [address] | goal blood pressure | | | | [place], [place] | [place] | less than 130/80 | | | | [address] | [address] | (Primary Dx); | | | | [phone] | | Chronic kidney | | | [...] switch to glimepiride after consultation with his Paving Machine Operator at [facility]. Outpatient Prescriptions Marked as Taking for [...] (ELOCON) 0.1 % cream Apply topically Daily. [place]-3 Fatty Acids (FISH OIL) 1200 MG CAPS [...] PHOSEX 3.6 12/28/2018 PTHEX 141.1 (A) 12/28/2018 [id number] 5.7 06/20/2018 Lab Results Component Value Date [...] will help minimize his risk of ASCVD ferry terminal agent. 2. His BP control is stable. Will [...] prior to that. : Anoop Vargas MD, [facility] Yumiko Del Valle MD, [facility] Matheus Gregory MD, [facility], [place] documented in thi s encounter Plan of Treatment +--------+ + + + + | Date | Type | Specialty | Care Team | Description | +--------+ + + + + | 03/16/ | Off-Site | Nephrology | Freddy Sanchez | | | 2019 | Visit | | DO [address]ay[address]a [address] [place] [place] | | | | | | [place] [address] | | | | | | [place] | | | | | | [address] | | | | | | | | +--------+ + + + + | 05/20/ | Office | Cardiology | Yumiko Del Valle, | | | 2019 | Visit | | [address] | | | | | | [place] | | | | | | [address] | | | | | | | [...]
--- OUTSIDE RECORDS SUMMARY | ~2019-10-22 | XMS | Encounter Summary ---
Demographics + + + | Address | [address] | | | [place] [address] | + + + | Home Phone [...] [place] | | | | | [address] | | + + + + + | Atif Delgadillo | ECON | [place], [place] | | | | | [address] | | + + + + + | Caleb Dawn | ECON | Unknown | | + + + + + Care Team Providers + +------+ + | Care Tax Associate Attorney Name | Role | Phone | + [...] NEPHROLOGY [address] | M, DO [address] | | | | | [address] | [place], [place] [address] | | | | | [place], [place] | [place] | | | | | [address] | [address] | | | | | [phone] | | | +--------+ + + + [...] 2019 | Visit | | DO Olayinka [facility] | | | | | | [place] | | | | | | [place] | | | | | | [address] | | | | | | | | +--------+ + + + + | 05/20/ | Office | Cardiology | Yumiko Del Valle, | | | 2019 | Visit | | MD Lpue TYLER | | | | | | [place] | | | | | | [phone] | | | | | | | | +--------+ + + + + documented as of this encounter Visit Diagnoses Not on filedocumented in this encounter"
--- OUTSIDE RECORDS SUMMARY | ~2019-10-22 | XMS | Encounter Summary ---
Demographics + + + | Address | [address] | | | [place] [address] | + + + | Home Phone [...] [place] | | | | | [address] | | + + + + + | Atif Delgadillo | ECON | [place], [place] | | | | | [address] | | + + + + + | Caleb Dawn | ECON | Unknown | | + + + + + Care Team Providers + +------+ + | Care Biomass Production Manager Name | Role | Phone | [...] NEPHROLOGY [address] | M, DO [address] [place] | | | | | [address] | [place], [place] [address] | | | | | [place], [place] | [place] | | | | | [address] | [address] | | | | | [phone] | | | +--------+ + + + [...] | Visit | | M, DO [address] [place] | | | | | | [place], [place] [address] | | | | | | [place] | | | | | | [address] | | | | | | | | +--------+ + + + + | 05/20/ | Office | Cardiology | Yumiko Del Valle, | | | 2019 | Visit | | [address] | | | | | | [place], [place] | | | | | | [address] | | | | | | | [...] | | | LAB | | | [place], | | | | | | External [...]
--- OUTSIDE RECORDS SUMMARY | ~2019-10-22 | XMS | Encounter Summary ---
Demographics + + + | Address | [address] | | | [place] [address] | + + + | Home Phone [...] [place] | | | | | [address] | | + + + + + | Atif Delgadillo | ECON | [place], [place] | | | | | [address] | | + + + + + | Caleb Dawn | ECON | Unknown | | + + + + + Care Team Providers + +------+ + | Care Data Storage Specialist Name | Role | Phone | [...] NEPHROLOGY [address] | M, DO [address] [place] | | | | | [address] | [place], [place] [address] | | | | | [place], [place] | [place] | | | | | [address] | [address] | | | | | [phone] | | | +--------+ + + + [...] | Visit | | M, DO [address] [place] | | | | | | [place], [place] [address] | | | | | | [place] | | | | | | [address] | | | | | | | | +--------+ + + + + | 05/20/ | Office | Cardiology | Yumiko Del Valle, | | | 2019 | Visit | | [address] | | | | | | [place], [place] | | | | | | [address] | | | | | | | [...] | | | LAB | | | [place], | | | | | | External [...]
--- OUTSIDE RECORDS SUMMARY | ~2019-10-22 | XMS | Encounter Summary ---
Demographics + + + | Address | [address] | | | [place] [address] | + + + | Home Phone [...] [place] | | | | | [address] | | + + + + + | Atif Delgadillo | ECON | [place], [place] | | | | | [address] | | + + + + + | Caleb Dawn | ECON | Unknown | | + + + + + Care Team Providers + +------+ + | Care Business Technology Analyst Name | Role | Phone | [...] NEPHROLOGY [address] | M, DO [address] [place] | disease, stage III | | | | [address] | [place], [place] [address] | (moderate) (Primary | | | | [place], [place] | [place], [place] | Dx); Unspecified | | | | [address] | [address] | hypertensive kidney | | | | [phone] | | disease with chronic | | [...] | Visit | | DO Olayinka [address] [place] | | | | | | [place] [address] | | | | | | [place] | | | | | | [address] | | | | | | | | +--------+ + + + + | 05/20/ | Office | Cardiology | Yumiko Del Valle, | | | 2019 | Visit | | MD Lupe TYLER | | | | | | [place] | | | | | | [phone] | | | | | | | | +--------+ + + + + documented as of this encounter Visit Diagnoses + + | Diagnosis | + + | Chronic kidney disease, stage III (moderate) ([facility]) - Primary Chronic kidney disease, [...] manifestations, not stated as | | uncontrolled(250.40) ([facility]) 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
--- OUTSIDE RECORDS SUMMARY | ~2019-10-22 | XMS | Encounter Summary ---
Demographics + + + | Address | [address] | | | [place] [address] | + + + | Home Phone [...] [place] | | | | | [address] | | + + + + + | Atif Delgadillo | ECON | [place], [place] | | | | | [address] | | + + + + + | Caleb Dawn | ECON | Unknown | | + + + + + Care Team Providers + +------+ + | Care Medical Laboratory Specialist Name | Role | Phone | [...] NEPHROLOGY [address] | M, DO [address] [place] | mellitus with stage | | | | [address] | [place], [place] [address] | 3 chronic kidney | | | | [place], [place] | [place] | disease, without | | | | [address] | [address] | long-term current | | | | [phone] | | use of insulin (HCC) | [...] | Visit | | DO Olayinka [address] [place] [address] | | | | | | [place] [address] | | | | | | [place] | | | | | | [address] | | | | | | | | +--------+ + + + + | 05/20/ | Office | Cardiology | Yumiko Del Valle, | | | 2019 | Visit | | MD Lupe TYELR | | | | | | [place] | | | | | | [phone] | | | | | | | [...]
--- OUTSIDE RECORDS SUMMARY | ~2019-10-22 | XMS | Encounter Summary ---
Demographics + + + | Address | [address] | | | [place] [address] | + + + | Home Phone [...] [place] | | | | | [address] | | + + + + + | Atif Delgadillo | ECON | [place], [place] | | | | | [address] | | + + + + + | Caleb Dawn | ECON | Unknown | | + + + + + Care Team Providers + +------+ + | Care Automation/Controls Manager Name | Role | Phone | [...] NEPHROLOGY [address] | M, DO [address] | | | | | [address] | [place], [place] [address] | | | | | [place], [place] | [place] | | | | | [address] | [address] | | | | | [phone] | | | +--------+ + + + [...] | Visit | | M, DO [address] | | | | | | [address] [place] [address] | | | | | | [place] | | | | | | [address] | | | | | | | | +--------+ + + + + | 05/20/ | Office | Cardiology | Yumiko Del Valle, | | | 2019 | Visit | | MD Lupe TYLER | | | | | | [place] | | | | | | [address] | | | | | | | | +--------+ + + + + documented as of this encounter Visit Diagnoses Not on filedocumented in this encounter"
--- OUTSIDE RECORDS SUMMARY | ~2019-10-22 | XMS | Encounter Summary ---
Demographics + + + | Address | [address] | | | [place] [address] | + + + | Home Phone [...] [place] | | | | | [address] | | + + + + + | Atif Delgadillo | ECON | [place] | | | | | [address] | | + + + + + | Caleb Dawn | ECON | Unknown | | + + + + + Care Team Providers + +------+ + | Care Linseed Oil Press Tender Name | Role | Phone | [...] | kidney | MD [address] | [address] [place] | | | | | disease, | [place] | [place], [place] | | | | | stage 3 | [place] | [address] [place] | | | | | (moderate) | [place] | [place] | | | | | (HCC) | [place] | [address] Phone: | | | | | Hypertension | [address] | [phone] | | | | | , essential | Phone: | Fax: | | | | | Type 2 | [phone] | [phone] | | | | | diabetes | Fax: | | | | | | mellitus | [phone] | | | | | | with stage 3 | | | | | | | chronic | | | | | | | kidney | | | | | | | disease | | | | | | | (HCC) | | | | | | | Procedures | | | | | | | [place] OFFICE | | | | | | [...] | | [address] | [place], [place] [address] | 3 chronic kidney | | | | [place], [place] | [place], [place] | disease, without | | | | [address] | [address] | long-term current | | | | [phone] | | use of insulin (HCC) | [...] daily for exercise. He states that his B2B Appointment Setter felt that his Hba1c w as too [...] (ELOCON) 0.1 % cream Apply topically Daily. 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 4. Will plan to see him back in 4 mo. at the [facility] Clinic at [place], [place]. He will have a CBC, CMP, PO4, HbA1c, iPTH, spot Urine Pro/Cr ratio one week prior to that. : Anoop Moyer MD, PhD Winsome Crowder MD, [place], [place] Matheus Gregory MD, [place] , [place] documented in th is encounter Plan of Treatment +--------+ + + + + | Date | Type | Specialty | Care Team | Description | +--------+ + + + + | 03/16/ | Off-Site | Nephrology | Freddy Sanchez | | | 2019 | Visit | | DO [address]ay[address] | | | | | | [address] [address] | | | | | | [place] | | | | | | [address] | | | | | | | | +--------+ + + + + | 05/20/ | Office | Cardiology | Yumiko Del Valle, | | | 2020 | Visit | | MD [address] | | | | | | [place] | | | | | | [address] | | | | | | | [...]
--- OUTSIDE RECORDS SUMMARY | ~2019-10-22 | XMS | Encounter Summary ---
Demographics + + + | Address | [address] | | | [place] [address] | + + + | Home Phone [...] [place] | | | | | [address] | | + + + + + | Atif Delgadillo | ECON | [place], [place] | | | | | [address] | | + + + + + | Caleb Dawn | ECON | Unknown | | + + + + + Care Team Providers + +------+ + | Care Financial Services Education Consultant Name | Role | Phone | [...] | kidney | MD [address] | [address] [place] | | | | | disease, | [place] | [place], [place] | | | | | stage 3 | [place] | [address] [place] | | | | | (moderate) | [place], | [place] | | | | | (HCC) | [place] | [address] Phone: | | | | | Hypertension | [address] | [phone] | | | | | , essential | Phone: | Fax: | | | | | Type 2 | [phone] | [phone] | | | | | diabetes | Fax: | | | | | | mellitus | [phone] | | | | | | with stage 3 | | | | | | | chronic | | | | | | | kidney | | | | | | | disease | | | | | | | (HCC) | | | | | | | Procedures | | | | | | | [place] OFFICE | | | | | | [...] | | [address] | [place], [place] [address] | 3 chronic kidney | | | | [place], [place] | [place] | disease, with | | | | [address] | [address] | long-term current | | | | [phone] | | use of insulin (HCC) | [...] Dr. Anoop Moyer, and Endo crinologist in [place], Dr. Winsome Crowder. He denies any new [...] (ELOCON) 0.1 % cream Apply topically Daily. [place]-3 Fatty Acids (FISH OIL) 1200 MG CAPS [...] PHOSEX 4.2 10/03/2017 PTHEX 186.6 (A) 10/03/2017 [id number] 5.1 10/03/2017 Lab Results Component Value Date [...] 4 mo. at the CKD Clinic at [place], [place]. He will have CBC, CMP, PO4, HbA1c, iPTH, Urine Pro/Cr ratio one week prior to that. : Anoop Moyer MD, PhD Winsome Crowder MD, [place], [place] Matheus Gregory MD, [place] , [place] documented in th is encounter Plan of Treatment +--------+ + + + + | Date | Type | Specialty | Care Team | Description | +--------+ + + + + | 03/16/ | Off-Site | Nephrology | Freddy Sanchez | | | 2019 | Visit | | DO [address]ay[address] | | | | | | [place], [place] [address] | | | | | | [place] | | | | | | [address] | | | | | | | | +--------+ + + + + | 05/20/ | Office | Cardiology | Yumiko Del Valle, | | | 2019 | Visit | | Lupe NAY[address] | | | | | | [place] | | | | | | [address] | | | | | | | [...]
--- OUTSIDE RECORDS SUMMARY | ~2019-10-22 | XMS | Encounter Summary ---
Demographics + + + | Address | [address] | | | [place] [address] | + + + | Home Phone [...] [place] | | | | | [address] | | + + + + + | Atif Delgadillo | ECON | [place], [place] | | | | | [address] | | + + + + + | Caleb Dawn | ECON | Unknown | | + + + + + Care Team Providers + +------+ + | Care Credit Resolution Representative Name | Role | Phone | + +------+ + PCP | Unavailable | + +------+ + Encounter Details +--------+ + + + + | Date | Type | Department | Care Team | Description | +--------+ + + + + | 01/29/ | Hospital | [facility] | | | | 2006 | Encounter | MED CTR XRAY [address] | | | | | | [address] | | | | | | [place] [address] | | | | | | [phone] | | | +--------+ + + + [...] | Visit | | DO Anival Bhagat [place] | | | | | | [place] | | | | | | [place] | | | | | | [phone] | | | | | | | | +--------+ + + + + | 05/20/ | Office | Cardiology | Yumiko Del Valle, | | | 2019 | Visit | | MD Lupe TYLER | | | | | | [place] | | | | | | [phone] | | | | | | | | +--------+ + + + + documented as of this encounter Visit Diagnoses Not on filedocumented in this encounter"
--- OUTSIDE RECORDS SUMMARY | ~2019-10-22 | XMS | Encounter Summary ---
Demographics + + + | Address | [address] | | | [place] [address] | + + + | Home Phone [...] [place] | | | | | [address] | | + + + + + | Atif Delgadillo | ECON | [place], [place] | | | | | [address] | | + + + + + | Caleb Dawn | ECON | Unknown | | + + + + + Care Team Providers + +------+ + | Care Non Destructive Testing Technician Name | Role | Phone | + +------+ + PCP | Unavailable | + +------+ + Encounter Details +--------+ + + + + | Date | Type | Department | Care Team | Description | +--------+ + + + + | 05/21/ | Hospital | [facility] | Saad Ivan | | | 2006 | Encounter | MED CTR SLEEP | MD Tomás [address] | | | | | [place] [address] | [facility] | | | | | [place] | [place] [address] | | | | | [address] | [phone] | | | | | [phone] | | | +--------+ + + + [...] | Visit | | DO Olayinka [address] [place] [address] | | | | | | [place] | | | | | | [place] | | | | | | [address] | | | | | | | | +--------+ + + + + | 05/20/ | Office | Cardiology | Yumiko Del Valle, | | | 2019 | Visit | | MD Lupe TYLER | | | | | | [place] | | | | | | [phone] | | | | | | | | +--------+ + + + + documented as of this encounter Visit Diagnoses Not on [facility]"
--- OUTSIDE RECORDS SUMMARY | ~2019-10-22 | XMS | Encounter Summary ---
Demographics + + + | Address | [address] | | | [place] [address] | + + + | Home Phone [...] [place] | | | | | [address] | | + + + + + | Atif Delgadillo | ECON | [place], [place] | | | | | [address] | | + + + + + | Caleb Dawn | ECON | Unknown | | + + + + + Care Team Providers + +------+ + | Care Security Threat Analyst Name | Role | Phone | [...] NEPHROLOGY [address] | M, DO [address] | | | | | [address] | [place], [place] [address] | | | | | [place], [place] | [place] | | | | | [address] | [address] | | | | | [phone] | | | +--------+ + + + [...] | Visit | | M, DO [address] | | | | | | [place], [place] [address] | | | | | | [place] | | | | | | [address] | | | | | | | | +--------+ + + + + | 05/20/ | Office | Cardiology | Yumiko Del Valle, | | | 2019 | Visit | | [address] | | | | | | [place], [place] | | | | | | [address] | | | | | | | [...]
--- OUTSIDE RECORDS SUMMARY | ~2019-10-22 | XMS | Encounter Summary ---
Demographics + + + | Address | [address] | | | [place] [address] | + + + | Home Phone [...] [place] | | | | | [address] | | + + + + + | Atif Delgadillo | ECON | [place], [place] | | | | | [address] | | + + + + + | Caleb Dawn | ECON | Unknown | | + + + + + Care Team Providers + +------+ + | Care Lawn And Garden Technician Name | Role | Phone | [...] | | [address] [place] | [place], [place] [address] | Unspecified | | | | [place], [place] | [place], [place] | hypertensive kidney | | | | [address] | [address] | disease with chronic | | | | [phone] | | kidney disease | | | [...] DM, who was recently DC'd from [facility] on 12/18/13 with UGI bleeding from a [...] he could benefit from a statin long chain beamer. 9. Gout--stable. I don't think today's knee [...] on 12/25/13. Will have him drive to [place], for Aranesp 60 mcg, SQ, x1 unti [...] see him back on 02/17/14 at the [facility], /[place], [place], which Dr. Saleh ht agreed to come [...] | | DO Olayinka [address] [place] [address] | | | | | | [place] [address] | | | | | | [place] | | | | | | [address] | | | | | | | | +--------+ + + + + | 05/20/ | Office | Cardiology | Yumiko Del Valle, | | | 2019 | Visit | | MD Lupe TYLER | | | | | | [place] | | | | | | [address] | | | | | | | [...]
--- OUTSIDE RECORDS SUMMARY | ~2019-10-22 | XMS | Encounter Summary ---
Demographics + + + | Address | [address] | | | [place] [address] | + + + | Home Phone [...] [place] | | | | | [address] | | + + + + + | Atif Delgadillo | ECON | [place], [place] | | | | | [address] | | + + + + + | Caleb Dawn | ECON | Unknown | | + + + + + Care Team Providers + +------+ + | Care Padded Box Sewer Name | Role | Phone | + [...] NEPHROLOGY [address] | M, DO [address] [place] | | | | | [address] | [place], [address] | | | | | [place], [place] | [place] | | | | | [address] | [address] | | | | | [phone] | | | +--------+ + + + [...] | Visit | | M, DO [address] | | | | | | [place], [place] [address] | | | | | | [place] | | | | | | [address] | | | | | | | | +--------+ + + + + | 05/20/ | Office | Cardiology | Yumiko Del Valle, | | | 2019 | Visit | | [address] | | | | | | [place], [place] | | | | | | [address] | | | | | | | [...] + +---------+ + + External Lab: BUN (01/30/2015) + +--------+ + + + | [...] 1.009 | | EXTERNAL | | | [place], | | | LAB | | | [...]
--- OUTSIDE RECORDS SUMMARY | ~2019-10-22 | XMS | Encounter Summary ---
Demographics + + + | Address | [address] | | | [place] [address] | + + + | Home Phone [...] [place] | | | | | [address] | | + + + + + | Atif Delgadillo | ECON | [place], [place] | | | | | [address] | | + + + + + | Caleb Dawn | ECON | Unknown | | + + + + + Care Team Providers + +------+ + | Care Tool Liaison Name | Role | Phone | [...] NEPHROLOGY [address] | M, DO [address] | | | | | [address] | [place], [address] | | | | | [place], [place] | [place] | | | | | [address] | [address] | | | | | [phone] | | | +--------+ + + + [...] | Visit | | M, DO [address] | | | | | | [place], [place] [address] | | | | | | [place] | | | | | | [address] | | | | | | | | +--------+ + + + + | 05/20/ | Office | Cardiology | Yumiko Del Valle, | | | 2019 | Visit | | [address] | | | | | | [place], [place] | | | | | | [address] | | | | | | | [...] 1.009 | | EXTERNAL | | | [place], | | | LAB | | | [...]
--- OUTSIDE RECORDS SUMMARY | ~2019-10-22 | XMS | Encounter Summary ---
Demographics + + + | Address | [address] | | | [place] [address] | + + + | Home Phone [...] [place] | | | | | [address] | | + + + + + | Atif Delgadillo | ECON | [place], [place] | | | | | [address] | | + + + + + | Caleb Dawn | ECON | Unknown | | + + + + + Care Team Providers + +------+ + | Care Ball Assembler Name | Role | Phone | + +------+ + PCP | Unavailable | + +------+ + Encounter Details +--------+ + + + + | Date | Type | Department | Care Team | Description | +--------+ + + + + | 12/29/ | Hospital | [facility] | Saad Ivan | | | 1994 | Encounter | MED CTR SLEEP | MD Tomás [address] | | | | | [place] [address] | [facility] | | | | | [place] | [place] [address] | | | | | [address] | [phone] | | | | | [phone] | | | +--------+ + + + [...] 2019 | Visit | | DO Olayinka [address] [place] [address] | | | | | | [place] | | | | | | [place] | | | | | | [address] | | | | | | | | +--------+ + + + + | 05/20/ | Office | Cardiology | Yumiko Del Valle, | | | 2019 | Visit | | MD Lupe TYLER | | | | | | [place] | | | | | | [id number] | | | | | | | | +--------+ + + + + documented as of this encounter Visit Diagnoses [facility]"
--- OUTSIDE RECORDS SUMMARY | ~2019-10-22 | XMS | Encounter Summary ---
Demographics + + + | Address | [address] | | | [place] [address] | + + + | Home Phone [...] [place] | | | | | [address] | | + + + + + | Atif Delgadillo | ECON | [place], [place] | | | | | [address] | | + + + + + | Caleb Dawn | ECON | Unknown | | + + + + + Care Team Providers + +------+ + | Care Fur Cleaner Name | Role | Phone | [...] | 12/19/ | Refill | [facility] | Logan Baca, | Medication Refill | | 2014 | | CARDIOLOGY [address] | MD [address] [place] | | | | | [place], | [place], | | | | | [place] [address] | [place] [address] | | | | | [phone] | [phone] | | | | | | | [...] 2019 | Visit | | DO Olayinka [address] [place] [address] | | | | | | [place] [address] | | | | | | [place] | | | | | | [address] | | | | | | | | +--------+ + + + + | 05/20/ | Office | Cardiology | Yumiko Del Valle, | | | 2019 | Visit | | MD Lupe TYLER | | | | | | [place] | | | | | | [phone] | | | | | | | | +--------+ + + + + documented as of this encounter Visit Diagnoses Not on filedocumented in this encounter"
--- OUTSIDE RECORDS SUMMARY | ~2019-10-22 | XMS | Encounter Summary ---
Demographics + + + | Address | [address] | | | [place] [address] | + + + | Home Phone [...] [place] | | | | | [address] | | + + + + + | Atif Delgadillo | ECON | [place], [place] | | | | | [address] | | + + + + + | Caleb Dawn | ECON | Unknown | | + + + + + Care Team Providers + +------+ + | Care High School Academic Coach Name | Role | Phone | [...] NEPHROLOGY [address] | M, DO [address] | | | | | [address] | [place], [place] [address] | | | | | [place], [place] | [place] | | | | | [address] | [address] | | | | | [phone] | | | +--------+ + + + [...] | Visit | | M, DO [address] | | | | | | [place], [place] [address] | | | | | | [place] | | | | | | [address] | | | | | | | | +--------+ + + + + | 05/20/ | Office | Cardiology | Yumiko Del Valle, | | | 2019 | Visit | | [address] | | | | | | [place], [place] | | | | | | [address] | | | | | | | [...]
--- OUTSIDE RECORDS SUMMARY | ~2019-10-22 | XMS | Encounter Summary ---
Demographics + + + | Address | [address] | | | [place] [address] | + + + | Home Phone [...] [place] | | | | | [address] | | + + + + + | Atif Delgadillo | ECON | [place], [place] | | | | | [address] | | + + + + + | Caleb Dawn | ECON | Unknown | | + + + + + Care Team Providers + +------+ + | Care Safety And Occupational Health Manager Name | Role | Phone | [...] NEPHROLOGY [address] | M, DO [address] [place] | disease, stage III | | | | [address] | [place], [place] [address] | (moderate) (Primary | | | | [place], [place] | [place], [place] | Dx); Hypertension | | | | [address] | [address] | | | | | [phone] | | | +--------+ + + + [...] 2019 | Visit | | Olayinka [address] | | | | | | [place] [address] | | | | | | [place] | | | | | | [address] | | | | | | | | +--------+ + + + + | 05/20/ | Office | Cardiology | Yumiko Del Valle, | | | 2019 | Visit | | MD Lupe TYLER | | | | | | [place] | | | | | | [address] | | | | | | | [...]
--- OUTSIDE RECORDS SUMMARY | ~2019-10-22 | XMS | Encounter Summary ---
Demographics + + + | Address | [address] | | | [place] [address] | + + + | Home Phone [...] [place] | | | | | [address] | | + + + + + | Atif Delgadillo | ECON | [place] | | | | | [address] | | + + + + + | Caleb Dawn | ECON | Unknown | | + + + + + Care Team Providers + +------+ + | Care Tile Finisher Name | Role | Phone | + [...] | kidney | MD [address] | | | | | disease, | [place] | [place], [place] | | | | | stage 3 | [place] | [address] [place] | | | | | (moderate) | [place] | [place] | | | | | (HCC) | [place] | [address] Phone: | | | | | Hypertension | [address] | [phone] | | | | | , essential | Phone: | Fax: | | | | | Type 2 | [phone] | [phone] | | | | | diabetes | Fax: | | | | | | mellitus | [phone] | | | | | | with [...] | | [address] | [place], [place] [address] | 3 chronic kidney | | | | [place], [place] | [place], [place] | disease, without | | | | [address] | [address] | long-term current | | | | [phone] | | use of insulin (HCC) | [...] daily for exercise. He states that his Mapping Analyst felt that his Hba1c w as too [...] (ELOCON) 0.1 % cream Apply topically Daily. 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 4. Will plan to see him back in 4 mo. at the [facility] at [place], [place]. He will have a CBC, CMP, PO4, HbA1c, iPTH, spot Urine Pro/Cr ratio one week prior to that. : Anoop Moyer MD, PhD Winsome Crowder MD, [place], [place] Matheus Gregory MD, [place] , [place] documented in th is encounter Plan of Treatment +--------+ + + + + | Date | Type | Specialty | Care Team | Description | +--------+ + + + + | 03/16/ | Off-Site | Nephrology | Freddy Sanchez | | | 2019 | Visit | | DO Olayinka [address] | | | | | | [address] [place] [address] | | | | | | [place] | | | | | | [address] | | | | | | | | +--------+ + + + + | 05/20/ | Office | Cardiology | Yumiko Del Valle, | | | 2020 | Visit | | MD [address] | | | | | | [place] | | | | | | [address] | | | | | | | [...]
--- OUTSIDE RECORDS SUMMARY | ~2019-10-22 | XMS | Encounter Summary ---
Demographics + + + | Address | [address] | | | [place] [address] | + + + | Home Phone [...] [place] | | | | | [address] | | + + + + + | Atif Delgadillo | ECON | [place], [place] | | | | | [address] | | + + + + + | Caleb Dawn | ECON | Unknown | | + + + + + Care Team Providers + +------+ + | Care Senior Management Consultant Name | Role | Phone | + +------+ + PCP | Unavailable | + +------+ + Encounter Details +--------+ + + + + | Date | Type | Department | Care Team | Description | +--------+ + + + + | 10/03/ | Hospital | [facility] | | | | 2006 | Encounter | MED CTR LABORATORY | | | | | | [address] | | | | | | [place] | | | | | | [address] | | | | | | [phone] | | | +--------+ + + + [...] 2019 | Visit | | DO Olayinka [address] [place] [address] | | | | | | [place] | | | | | | [place] | | | | | | [address] | | | | | | | | +--------+ + + + + | 05/20/ | Office | Cardiology | Yumiko Del Valle, | | | 2019 | Visit | | MD Lupe TYLER | | | | | | [place] | | | | | | [phone] | | | | | | | | +--------+ + + + + documented as of this encounter Visit Diagnoses Not on filedocumented in this encounter"
--- OUTSIDE RECORDS SUMMARY | ~2019-10-22 | XMS | Encounter Summary ---
Demographics + + + | Address | [address] | | | [place] [address] | + + + | Home Phone [...] [place] | | | | | [address] | | + + + + + | Atif Delgadillo | ECON | [place], [place] | | | | | [address] | | + + + + + | Caleb Dawn | ECON | Unknown | | + + + + + Care Team Providers + +------+ + | Care Linecasting Machine Keyboard Operator Name | Role | Phone | [...] NEPHROLOGY [address] | M, DO [address] [place] | | | | | [address] | [place], [place] [address] | | | | | [place], [place] | [place] | | | | | [address] | [address] | | | | | [phone] | | | +--------+ + + + [...] | Visit | | M, DO [address] [place] | | | | | | [place], [place] [address] | | | | | | [place] | | | | | | [address] | | | | | | | | +--------+ + + + + | 05/20/ | Office | Cardiology | Yumiko Del Valle, | | | 2019 | Visit | | [address] | | | | | | [place], [place] | | | | | | [address] | | | | | | | [...]
--- OUTSIDE RECORDS SUMMARY | ~2019-10-22 | XMS | Encounter Summary ---
Demographics + + + | Address | [address] | | | [place] [address] | + + + | Home Phone [...] [place] | | | | | [address] | | + + + + + | Atif Delgadillo | ECON | [place], [place] | | | | | [address] | | + + + + + | Caleb Dawn | ECON | Unknown | | + + + + + Care Team Providers + +------+ + | Care Crating And Moving Estimator Name | Role | Phone | + +------+ + PCP | Unavailable | + +------+ + Encounter Details +--------+ + + + + | Date | Type | Department | Care Team | Description | +--------+ + + + + | 12/29/ | Hospital | [facility] | Saad Ivan | | | 1994 | Encounter | MED CTR SLEEP | MD Tomás [address] | | | | | [place] [address] | [facility] | | | | | [place] | [place] [address] | | | | | [address] | [phone] | | | | | [phone] | | | +--------+ + + + [...] | Visit | | DO Olayinka [address] [place] [address] | | | | | | [place] | | | | | | [place] | | | | | | [address] | | | | | | | | +--------+ + + + + | 05/20/ | Office | Cardiology | Yumiko Del Valle, | | | 2019 | Visit | | MD Lupe TYLER | | | | | | [place] | | | | | | [phone] | | | | | | | | +--------+ + + + + documented as of this encounter Visit Diagnoses Not on [facility]"
--- OUTSIDE RECORDS SUMMARY | ~2019-10-22 | XMS | Encounter Summary ---
Demographics + + + | Address | [address] | | | [place] [address] | + + + | Home Phone [...] [place] | | | | | [address] | | + + + + + | Atif Delgadillo | ECON | [place], [place] | | | | | [address] | | + + + + + | Caleb Dawn | ECON | Unknown | | + + + + + Care Team Providers + +------+ + | Care Equipment Application Specialist Name | Role | Phone | [...] NEPHROLOGY [address] | M, DO [address] [place] | | | | | [address] | [place], [place] [address] | | | | | [place], [place] | [place] | | | | | [address] | [address] | | | | | [phone] | | | +--------+ + + + [...] | Visit | | M, DO [address] | | | | | | [place], [place] [address] | | | | | | [place] | | | | | | [address] | | | | | | | | +--------+ + + + + | 05/20/ | Office | Cardiology | Yumiko Del Valle, | | | 2019 | Visit | | [address] | | | | | | [place] | | | | | | [address] | | | | | | | [...] | + + + + + | [facility] | [address] | [place] | [phone] | | [facility] | | [address] | | | - LABORATORY | | [...]
--- OUTSIDE RECORDS SUMMARY | ~2019-10-22 | XMS | Encounter Summary ---
Demographics + + + | Address | [address] | | | [place] [address] | + + + | Home Phone [...] + + + | Author | [facility] | | | and [place] | + + + | Organization | [facility] | | | and [place] | + + + | Address | Unknown | + + + | Phone | Unavailable | + + + Support + + + + + | Name | Relationship | Address | Phone | + + + + + | Hi Dawn | ECON | [place] | | | | | [address] | | + + + + + | Atif Delgadillo | ECON | [place], [place] | | | | | [address] | | + + + + + | Caleb Dawn | ECON | Unknown | | + + + + + Care Team Providers + +------+ + | Care Sheather Name | Role | Phone | + [...] unspecified | MD [address] | [address] [place] | | | | | type | [place] | [address] [place] | | | | | diabetes | [place] | [address] [place] | | | | | mellitus | [place], | [place], [place] | | | | | with renal | [place] | [address] Phone: | | | | | manifestatio | [address] | [phone] | | | | | ns, not | Phone: | Fax: | | | | | stated as | [phone] | [phone] | | | | | uncontrolled | Fax: | | | | | | [phone] | [phone] | | | | | | (HCC) [...] | | [address] | [place], [place] [address] | (moderate) (HCC) | | | | [place], [place] | [place] | (Primary Dx); | | | | [address] | [address] | Essential | | | | [phone] | | hypertension; | | | | [...] for the 04/20/15 encounter (Off-Site Visit) with Roxaan Sanchez DO Medication Sig Dispense Refill allopurinol [...] 04/16/2015 PHOSEX 3.2 04/16/2015 PTHEX 112.9 04/16/2015 [id number] 6.3* 07/25/2014 Lab Results Component Value Date [...] him back in 6 mo. at the [facility]. He will have a CBC, CMP, P04, [...] 2019 | Visit | | DO Olayinka [address] [place] [address] | | | | | | [place] [...] [place] | | | | | | [address] | | | | | | | [...]
--- OUTSIDE RECORDS SUMMARY | ~2019-10-22 | XMS | Clinical Summary ---
Demographics + + + | Address | [address] | | | [place] [address] | + + + | Home Phone [...] [place] | | | | | [address] | | + + + + + | Atif Delgadillo | ECON | [place] | | | | | [address] | | + + + + + | Caleb Dawn | ECON | Unknown | | + + + + + Care Team Providers + +------+ + | Care Client Coordinator Name | Role | Phone | [...] | | | | (moderate) ([facility]), | | | | | | | | Type 2 diabetes | | | | | | | | mellitus with stage | | | | | | | | 3 chronic kidney | | | | | | | | disease ([facility]), | | | | | | | | Hypertension, | | | | | | | | essential, Secondary | | | | | | | | hyperparathyroidism | | | | | | | | of renal origin | | | | | | | | ([facility]) | | | | | | | [...] | | | | (moderate) ([facility]), | | | | | [...] | | + + + +---------+------+------+-------+ | Carrizozo-3 Fatty | Take 1,200 mg by | [...] | | | | (moderate) ([facility]), | | | | | [...] whether | | | | | | magento web developer insulin | | | | | | use ([facility]); | | | | | | Hyperparathyroidism | | | | | | due to renal | | | | | | insufficiency ([facility]); | | | | [...] whether | | | | | | fci insulin | | | | | | [...] + | Heart disease | Mother | [place] B. | Had Triple heart bipass. | [...] + + + + | Mother | [place] B. | | | | | Flores [...] 2019 | Visit | | DO Olayinka [address] [place] [address] | | | | | | [place] | | | | | | [place] | | | | | | [address] | | | | | | | | +--------+ + + + + | 05/20/ | Office | Cardiology | Yumiko Del Valle, | | | 2019 | Visit | | MD Lupe TYLER | | | | | | [place] | | | | | | [phone] | | | | | | | [...] +---------+--------+ | [employer] | MAILHA | [id number] | 11/20/19 | [phone] | | PPO | | PLN | NDLERS | | 18-Pre | 8 | | | | | [employer] | | sent | | | | | | PPO | | | | | | + +--------+ +--------+ +---------+--------+ | MEDICARE | MEDICA | [id number] | 02/19/20 | [phone] | | Medica [...] | | la | | | 7 ([place]) | [address] | + +--------+ +--------+ + + | SERGEI TANNER | Person | Self | | | | | LAROWE | al/Fam | | | | | | | la | | | | | + +--------+ +--------+ + + Advance Directives + + + + + | Type | Date Recorded | Patient | Explanation | | | | Pediatric Occupational Therapist | | + + + + + | Power of | | | | | Insurance Legal Assistant | | | | + + + + + | Advance | 05/05/2014 9:24 | | | | Directive | AM | | | + + + + +
--- OUTSIDE RECORDS SUMMARY | ~2019-10-22 | XMS | Encounter Summary ---
Demographics + + + | Address | [address] | | | [place] [address] | + + + | Home Phone [...] [place] | | | | | [address] | | + + + + + | Atif Delgadillo | ECON | [place], [place] | | | | | [address] | | + + + + + | Caleb Dawn | ECON | Unknown | | + + + + + Care Team Providers + +------+ + | Care Gun Mechanic Name | Role | Phone | [...] | unspecified | MD [address] | [address] [place] | | | | | type | [place] | [address] [place] | | | | | diabetes | [place] | [address] [place] | | | | | mellitus | [place], | [place], [place] | | | | | with renal | [place] | [address] Phone: | | | | | manifestatio | [address] | [phone] | | | | | ns, not | Phone: | Fax: | | | | | stated as | [phone] | [phone] | | | | | uncontrolled | Fax: | | | | | | [phone] | [phone] | | | | | | (HCC) [...] | | [address] | [place], [place] [address] | diabetes mellitus | | | | [place] | [place] | with renal | | | | [address] | [address] | manifestations, not | | | | [phone] | | stated as | | | [...] Addendum: After reviewing recent Lipid guidelines in [facility], it suggests starting at 40 mg of [...] 11/27/2014 PHOSEX 3.3 11/27/2014 PTHEX 147 11/27/2014 SXP1OXV 6.3* 07/25/2014 Lab Results Component Value Date [...] him back in 4 mo. at the [facility], [place], [place]. He will have a CBC, CMP, [...] 2019 | Visit | | DO Olayinka [address] [place] [address] | | | | | | [address] | | | | | | [place] | | | | | | [address] | | | | | | | | +--------+ + + + + | 05/20/ | Office | Cardiology | Yumiko Del Valle, | | | 2019 | Visit | | MD Lupe TYLER | | | | | | [place] | | | | | | [id number] | | | | | | | [...]
--- OUTSIDE RECORDS SUMMARY | ~2019-10-22 | XMS | Encounter Summary ---
Demographics + + + | Address | [address] | | | [place] [address] | + + + | Home Phone [...] [place] | | | | | [address] | | + + + + + | Atif Delgadillo | ECON | [place], [place] | | | | | [address] | | + + + + + | Caleb Dawn | ECON | Unknown | | + + + + + Care Team Providers + +------+ + | Care Inspector Cold Working Name | Role | Phone | + [...] + + | 10/02/ | Telephone | [facility] | Freddy Sanchez | Lab Order | | 2016 | | NEPHROLOGY [address] | M, DO [address] | | | | | [address] [facility] [address] | [place], [facility] [address] | | | | | [place], [place] | [place], [place] | | | | | [address] | [address] | | | | | [phone] | | | +--------+ + + + [...] | Visit | | DO [address]ay[address] | | | | | | [address] | | | | | | [place] | | | | | | [address] | | | | | | | | +--------+ + + + + | 05/20/ | Office | Cardiology | Yumiko Del Valle, | | | 2019 | Visit | | [address] | | | | | | [place] | | | | | | [address] | | | | | | | [...]
--- OUTSIDE RECORDS SUMMARY | ~2019-10-22 | XMS | Encounter Summary ---
Demographics + + + | Address | [address] | | | [place] [address] | + + + | Home Phone [...] [place] | | | | | [address] | | + + + + + | Atif Delgadillo | ECON | [place], [place] | | | | | [address] | | + + + + + | Caleb Dawn | ECON | Unknown | | + + + + + Care Team Providers + +------+ + | Care Batch Freezer Name | Role | Phone | + [...] NEPHROLOGY [address] | M, DO [address] | kidney | | | | [facility] [address] | [place], [facility] 100 | disease(285.21) | | | | [place], [place] | [place] | (Primary Dx) | | | | [address] | [address] | | | | | [phone] | | | +--------+ + + + [...] | Visit | | DO Olay[address]a [address] | | | | | | [place] [address] | | | | | | [place] | | | | | | [address] | | | | | | | | +--------+ + + + + | 05/20/ | Office | Cardiology | Yumiko Del Valle, | | | 2019 | Visit | | [address] | | | | | | [place] | | | | | | [phone] | | | | | | | | +--------+ + + + + documented as of this encounter Visit Diagnoses + + | Diagnosis | + + | Anemia in chronic kidney disease(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
--- OUTSIDE RECORDS SUMMARY | ~2019-10-22 | XMS | Encounter Summary ---
Demographics + + + | Address | [address] | | | [place] [address] | + + + | Home Phone [...] [place] | | | | | [address] | | + + + + + | Atif Delgadillo | ECON | [place], [place] | | | | | [address] | | + + + + + | Caleb Dawn | ECON | Unknown | | + + + + + Care Team Providers + +------+ + | Care Gravity Prospecting Operator Name | Role | Phone | [...] NEPHROLOGY [address] | M, DO [address] | | | | | [address] [place] [address] | [place], [place] [address] | | | | | [place], [place] | [place] | | | | | [address] | [address] | | | | | [phone] | | | +--------+ + + + [...] | Visit | | M, DO [address] | | | | | | [place], [place] [address] | | | | | | [place] | | | | | | [address] | | | | | | | | +--------+ + + + + | 05/20/ | Office | Cardiology | Yumiko Del Valle, | | | 2019 | Visit | | [address] | | | | | | [place], [place] | | | | | | [address] | | | | | | | [...]
--- OUTSIDE RECORDS SUMMARY | 2019-10-22 20:56 | XMS ---
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 Care History Medical/Surgical 03/25/2019 [facility] - Patient is currently established with [facility]. If patient is seen in the ED during business hours. Please contact CHWs at [facility]. Care Recommendation: This patient has had 5 or more Emergency Department visits in the last 12 months.\T\nbsp; Patient requires education on the scope and purpose of the ED as an acute care provider not a Primary Care Provider and should not be utilized for chronic conditions.\T\nbsp; These are guidelines and the provider should exercise clinical judgment when providing care. E.D. VISIT COUNT (12 MO.) 3 [facility]ST[facility]O [facility] TOTAL 3 NOTE: Visits indicate total known visits. ED/UCC VISIT TRACKING (12 MO.) 10/22/2019 20:53 [facility] [place] TYPE: Emergency COMPLAINT: - NAUSEA 03/22/2019 02:18 [facility] [place] [place] TYPE: Emergency COMPLAINT: - ABNORMAL BP DIAGNOSES: - [facility] (current) use of aspirin - Allergy status to penicillin - Acquired absence of other specified parts of digestive tract - 1 Type 2 diabetes mellitus without complications - rn long term care (current) use of oral hypoglycemic drugs - Essential (primary) hypertension - Hyperlipidemia, unspecified - Allergy status to oth drug/meds/biol subst status 03/15/2019 14:53 [facility] [place] TYPE: Emergency COMPLAINT: - WEAKNESS INPATIENT VISIT TRACKING (12 MO.) 03/15/2019 14:54 [facility] [place] TYPE: Observation COMPLAINT: - ACUTE KIDNEY INJURY DIAGNOSES: - [facility] (current) use of aspirin - Allergy status to penicillin - Gout, unspecified - Sleep apnea, unspecified - Weakness - Essential (primary) hypertension - Bradycardia, unspecified - 1 Type 2 diabetes mellitus without complications - Other long term care pharmacist (current) drug therapy - Acute kidney failure, unspecified - Hyperlipidemia, unspecified - Allergy status to oth drug/meds/biol subst status [email or web address]
== END ==
LOC: ED 20:53
DX: R11.0 Nausea (principal); N28.9 Disorder of kidney and ureter, unspecified; E11.9 Type 2 diabetes mellitus without complications; I10 Essential (primary) hypertension; E78.5 Hyperlipidemia, unspecified; Z88.0 Allergy status to penicillin; Z88.8 Allergy status to other drugs, medicaments and biological substances; Z79.899 Other long term (current) drug therapy; Z79.82 Long term (current) use of aspirin
CPT/HCPCS: 70450; 80053; 81001; 83735; 85025; 96374; 99284-25; J2405

== ENCOUNTER 2020-04-03 16:36 | Emergency (ER) | payer OTHER ==
[~2020-04-03] VITALS: Ht 190.5 cm; Wt 130.4 kg
--- OUTSIDE RECORDS SUMMARY | ~2020-04-03 | XMS | Encounter Summary ---
Demographics + + + | Address | [address] | | | [place] [address] | + + + | Home Phone | | + + + | Preferred Language | Unknown | + + + | Marital Status | Single | + + + | Confucianism Affiliation | Unknown | + + + | Race | Unknown | + + + | Ethnic Group | Unknown | + + + Author + + + | Author | [facility] | | | and [place] | + + + | Organization | [facility] | | | and [place] | + + + | Address | Unknown | + + + | Phone | Unavailable | + + + Support + + + + + | Name | Relationship | Address | Phone | + + + + + | Hi Dawn | ECON | [place] | | | | | [address] | | + + + + + | Atif Delgadillo | ECON | [place], [place] | | | | | [address] | | + + + + + | Caleb Dawn | ECON | Unknown | | + + + + + Care Team Providers + +------+ + | Care Change Release Manager Name | Role | Phone | + +------+ + PCP | Unavailable | + +------+ + Encounter Details +--------+ + + + + | Date | Type | Department | Care Team | Description | +--------+ + + + + | 11/07/ | Abstract | [facility] [place] | Freddy Sanchez | | | 2012 | | NEPHROLOGY [address] | M, DO [address] | | | | | [address] [place] | [place], [place] [address] | | | | | [place], [place] | [place] | | | | | [address] | [address] | | | | | [phone] | | | +--------+ + + + + Social History + +-------+ +--------+------+ | Tobacco Use | Types | Packs/Day | Years | Date | | | | | Used | | + +-------+ +--------+------+ | Never Smoker | | | | | + +-------+ +--------+------+ + +---+---+---+ | Smokeless Tobacco: | | | | | Never Used | | | | + +---+---+---+ + + +---------+ + | Alcohol Use | Drinks/Week | oz/Week | Comments | + + +---------+ + | No | | | | + + +---------+ + + + + | Sex Assigned at [...] as of this encounter Plan of Treatment +--------+---------+ + + + | Date | Type | Specialty | Care Team | Description | +--------+---------+ + + + | 05/20/ | Office | Cardiology | Yumiko Del Valle, | | | 2019 | Visit | | MD Lupe TYLER | | | | | | [place], [place] | | | | | | [address] | | | | | | | | +--------+---------+ + + + documented as of this encounter Visit Diagnoses Not on filedocumented in this encounter"
--- OUTSIDE RECORDS SUMMARY | ~2020-04-03 | XMS | Encounter Summary ---
Demographics + + + | Address | [address] | | | [place] [address] | + + + | Home Phone | | + + + | Preferred Language | Unknown | + + + | Marital Status | Single | + + + | Congregational Affiliation | Unknown | + + + | Race | Unknown | + + + | Ethnic Group | Unknown | + + + Author + + + | Author | [facility] | | | and [place] | + + + | Organization | [facility] | | | and [place] | + + + | Address | Unknown | + + + | Phone | Unavailable | + + + Support + + + + + | Name | Relationship | Address | Phone | + + + + + | Hi Dawn | ECON | [place] | | | | | [address] | | + + + + + | Atif Delgadillo | ECON | [place] | | | | | [address] | | + + + + + | Caleb Dawn | ECON | Unknown | | + + + + + Care Team Providers + +------+ + | Care Shellfish Grower Name | Role | Phone | + +------+ + | Anoop Moyer MD | PCP | | + +------+ + Reason for Visit Evaluate & Treat (Routine) +--------+--------+ + + + + | Status | Reason | Specialty | Diagnoses / | Referred By | Referred To | | | | | Procedures | Contact | Contact | +--------+--------+ + + + + | Closed | | Nephrology | Diagnoses | Kayla, | Daniel, | | | | | Chronic | Quique Montgomery, | Freddy Bhagat DO | | | | | kidney | MD [address] | | | | | disease, | [place] | [place], [place] | | | | | stage 3 | [place] [address] | [address] [place] | | | | | (moderate) | [place] | [place] | | | | | (HCC) | [place] | [address] Phone: | | | | | Hypertension | [address] | [phone] | | | | | , essential | Phone: | Fax: | | | | | Type 2 | [phone] | [phone] | | | | | diabetes | Fax: | | | | | | mellitus | [phone] | | | | | | with stage 3 | | | | | | | chronic | | | | | | | kidney | | | | | | | disease | | | | | | | (HCC) | | | | | | | Procedures | | | | | | | [place] OFFICE | | | | | | | OUTPATIENT | | | | | | | VISIT 25 | | | | | | | MINUTES | | | +--------+--------+ + + + + Encounter Details +--------+ + + + + | Date | Type | Department | Care Team | Description | +--------+ + + + + | 12/31/ | Off-Site | [facility] [place] | Freddy Sanchez | Essential | | 2019 | Visit | NEPHROLOGY [address] | M, DO [address] | hypertension with | | | | [address] [place] | [place], [place] [address] | goal blood pressure | | | | [place], [place] | [place] | less than 130/80 | | | | [address] | [address] | (Primary Dx); | | | | [phone] | | Chronic kidney | | | | | | disease, stage III | | | | | | (moderate) (HCC); | | | | | | Hyperparathyroidism | | | | | | due to renal | | | | | | insufficiency (HCC); | | | | | | Hyperlipidemia, | | | | | | mixed | +--------+ + + + + Social [...] + + documented as of this encounter Last Filed Vital Signs + + + + + | Vital Sign | Reading | Time Taken | Comments | + + + + + | Blood Pressure | 140/76 | 12/31/2018 1:31 PM | | | | | PST | | + + + + + | Pulse | - | - | | + + + + + | Temperature | 36.4 C (97.6 F) | 12/31/2018 1:31 PM | | | | | PST | | + + + + + | Respiratory Rate | - | - | | + + + + + | Oxygen Saturation | - | - | | + + + + + | Inhaled Oxygen | - | - | | | Concentration | | | | + + + + + | Weight | 129 kg (284 lb 6.3 | 12/31/2018 1:31 PM | | | | oz) | PST | | + + + + + | Height | - | - | | + + + + + | Body Mass Index | 37.52 | 01/31/2018 3:17 PM | | | | | PDT | | + + + + + documented in this encounter Patient Instructions Patient Instructions Freddy Sanchez DO - 12/31/2018 1:00 PM PST1. Start Sensipar 30 mg, every M-- only for your PTH and CV risk. documented in this encounter Progress Notes Freddy Sanchez DO - 12/31/2018 1:00 PM PST Subjective: NEPHROLOGY Patient ID: Steve Tanner is a 73 y.o. male. 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 He also has a history of a remote DU, 2013, hypertension, hyperlipidemia, DJD of knees, SHPTH, ASCVD, s/p left CEA, 09 05, anemia secondary to CKD, gout, and Type 2 DM. 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 Denies any new edema, hiccups, nausea, TIA's, or CORONADO. He states that he is attempting to eat more chicken and fish. He walks on a regular basis, daily, when it is not snowing. Apparently, his insurance co. will no longer reimburse for Sitagliptan, and he is to switch to glimepiride after consultation with his Brass Instrument Repair Technician at [facility]. Outpatient Prescriptions Marked as Taking for the 12/31/18 encounter (Off-Site Visit) with Olayinka Sanchez DO Medication Sig Dispense Refill allopurinol (ZYLOPRIM) 300 mg tablet Take 300 mg by mouth Daily. aspirin 81 MG tablet Take 1 tablet by mouth Daily. calcitRIOL (ROCALTROL) 0.5 MCG capsule Take 1 capsule by mouth Daily. 30 capsule carvedilol (COREG) 25 mg tablet TAKE ONE TABLET BY MOUTH TWICE A DAY (WITH BREAKFAST AN D DINNER) 60 tablet 6 furosemide (LASIX) 40 mg tablet TAKE ONE TABLET BY MOUTH TWICE A DAY 60 tablet 6 Linagliptin (TRADJENTA) 5 MG TABS Take 5 mg by mouth Daily. liraglutide (VICTOZA) 18 mg/3 mL injection Inject 1.2 mg under the skin Daily. 11 losartan (COZAAR) 25 mg tablet Take 1 tablet by mouth Daily. 90 tablet 4 mometasone (ELOCON) 0.1 % cream Apply topically Daily. [place]-3 Fatty Acids (FISH OIL) 1200 MG CAPS Take 1,200 mg by mouth 2 times daily. rosuvastatin (CRESTOR) 5 MG tablet Take 5 mg by mouth Three times a week. [DISCONTINUED] terbinafine (LAMISIL) 250 MG tablet Take 250 mg by mouth Daily. For 90 d ays, then, off for 90 days. Allergies Allergen Reactions Lisinopril Other (See Comments) Cough Penicillins Rash Review of Systems Objective: BP 140/76 | Temp 36.4 C (97.6 F) | Wt 129 kg (284 lb 6.3 oz) | BMI 35.55 kg/m Physical Exam Heart: Regular rate and rhythm with no S3, S4, murmur or rub. Lungs: CTA bilaterally. No rales or wheezes. Abdomen: soft, obese, nontender, NABS. Extremities: 1+ edema, clubbing, or cyanosis. He declines foot exam. Lab Results Component Value Date NAEX 139 12/28/2018 KEX 4.1 12/28/2018 CLEX 102 12/28/2018 CO2EX 26 12/28/2018 BUNEX 54 12/28/2018 CREEX 2.16 12/28/2018 EGFREX 30 12/28/2018 GLUEX 152 12/28/2018 CAEX 9.9 12/28/2018 PHOSEX 3.6 12/28/2018 PTHEX 141.1 (A) 12/28/2018 VVI3LDO 5.7 06/20/2018 Lab Results Component Value Date WBCEX 5.3 12/28/2018 HGBEX 13.2 12/28/2018 HCTEX 37.3 12/28/2018 PLTEX 128 12/28/2018 Lab Results Component Value Date CRCLEARANCE 37.0 (A) 12/28/2018 PROTEX 0.0816 06/20/2018 Assessment: 1. CKD Stage 3, secondary to diabetic glomerulosclerosis and HTN-- his Scr is slightly imp roved. His Ccr is minimally decreased from previous, however, he thinks he may not have capt ured every urine void. 2. Hypertension-- very good control. 3. Type 2 DM-- .excellent control. 4. SHPTH-- with his known PAD in his neck, would be ideal to see this even lower, as he chino s stable CKD? 5. H/O PUD, DU, on EGD,12/16/13-- no recurrence. 6. ASCVD/ s/p left CEA, 2005--stable on ASA, statin Rx. 7. Hyperlipidemia--on statin Rx. 8. Gout-- quiescent. Plan: 1. Will add Sensipar 30 mg, PO, Q -- only to attempt to target his PTH < 90, as his CKD Stage is slightly lower. I discussed with Stiven, that in conjunction with his statin, th is will help minimize his risk of ASCVD long term care administrator. 2. His BP control is stable. Will continue his current dose of losartan and furosemide. 3. He appears to be tolerating his lower dose statin Rx well, so far, to help further miti gate his CV risk. 4. Will plan to see him back in 6 months. He will have a CBC, CMP, PO4, HbA1c, iPTH, Vit celeste D level, lipid profile, and spot Urine Pro/Cr ratio one week prior to that. : Anoop Vargas MD, [facility] Yumiko Del Valle MD, [facility] Matheus Gregory MD, [facility], [place] documented in thi s encounter Plan of Treatment +--------+---------+ + + + | Date | Type | Specialty | Care Team | Description | +--------+---------+ + + + | 05/20/ | Office | Cardiology | Yumiko Del Valle, | | | 2019 | Visit | | MD Lupe TYLER | | | | | | [facility] [facility] | | | | | | [address] | | | | | | | | +--------+---------+ + + + documented as of this encounter Visit Diagnoses + + | Diagnosis | + + | Essential hypertension with goal blood pressure less than 130/80 - Primary | + + | Chronic kidney disease, stage III (moderate) (HCC) Chronic kidney disease, Stage III | | (moderate) | + + | Hyperparathyroidism due to renal insufficiency (HCC) Secondary hyperparathyroidism | | (of renal origin) | + + | Hyperlipidemia, mixed Mixed hyperlipidemia | + + documented in this encounter"
--- OUTSIDE RECORDS SUMMARY | ~2020-04-03 | XMS | Encounter Summary ---
Demographics + + + | Address | [address] | | | [place] [address] | + + + | Home Phone | | + + + | Preferred Language | Unknown | + + + | Marital Status | Single | + + + | Rastafari Affiliation | Unknown | + + + | Race | Unknown | + + + | Ethnic Group | Unknown | + + + Author + + + | Author | [facility] | | | and [place] | + + + | Organization | [facility] | | | and [place] | + + + | Address | Unknown | + + + | Phone | Unavailable | + + + Support + + + + + | Name | Relationship | Address | Phone | + + + + + | Hi Dawn | ECON | [place] | | | | | [address] | | + + + + + | Atif Delgadillo | ECON | [place], [place] | | | | | [address] | | + + + + + | Caleb Dawn | ECON | Unknown | | + + + + + Care Team Providers + +------+ + | Care Machine Package Sealer Name | Role | Phone | + +------+ + PCP | Unavailable | + +------+ + Reason for Visit Evaluate & Treat (Routine) +--------+--------+ + + + + | Status | Reason | Specialty | Diagnoses / | Referred By | Referred To | | | | | Procedures | Contact | Contact | +--------+--------+ + + + + | Closed | | Nephrology | Diagnoses | Radhaer, | Daniel, | | | | | Chronic | Quique Montgomery, | Freddy Bhagat DO | | | | | kidney | MD [address] [place] | | | | | disease, | [place] | [place], [place] | | | | | stage 3 | [place] [address] | [address] [place] | | | | | (moderate) | [place], | [place] | | | | | (HCC) | [place] | [address] Phone: | | | | | Hypertension | [address] | [phone] | | | | | , essential | Phone: | Fax: | | | | | Type 2 | [phone] | [phone] | | | | | diabetes | Fax: | | | | | | mellitus | [phone] | | | | | | with stage 3 | | | | | | | chronic | | | | | | | kidney | | | | | | | disease | | | | | | | (HCC) | | | | | | | Procedures | | | | | | | [place] OFFICE | | | | | | | OUTPATIENT | | | | | | | VISIT 25 | | | | | | | MINUTES | | | +--------+--------+ + + + + Encounter Details +--------+ + + + + | Date | Type | Department | Care Team | Description | +--------+ + + + + | 06/06/ | Off-Site | [facility] | Freddy Sanchez | Chronic kidney | | 2016 | Visit | NEPHROLOGY [address] | M, DO [address] | disease, stage III | | | | [address] | [place], [place] [address] | (moderate) (Primary | | | | [place] | [place] | Dx); Type 2 diabetes | | | | [address] | [address] | mellitus with stage | | | | [phone] | | 3 chronic kidney | | | | | | disease (HCC); | | | | | | Essential | | | | | | hypertension with | | | | | | goal blood pressure | | | | | | less than 130/80; | | | | | | High cholesterol | +--------+ + + + + Social [...] + + + | Blood Pressure | 162/82 | 06/06/2016 1:14 PM | | | | | PDT | | + + + + + | Pulse | - | - | | + + + + + | Temperature | 35.6 C (96 F) | 06/06/2016 1:14 PM | | | | | PDT [...] + + + + | Weight | 129.8 kg (286 lb 2.5 | 06/06/2016 1:14 PM | | | | oz) | PDT | | + + + + + | Height | - | - | | + + + + + | Body Mass Index | 35.77 | 10/29/2015 1:56 PM | | | | | PST | | + + + + + documented in this encounter Progress Notes Tamara Alves - 12/08/2016 4:26 PM PSTE-faxed progress note to Quique Garza MD at his request on 12/08/16. Freddy Bray DO - 06/06/2016 1:14 PM PDTFormatting of this note might be different from t he original. Subjective: NEPHROLOGY Patient ID: Steve Tanner is a 71 y.o. male. HPI Comments: Follow-up for this 71 YO white male with CKD secondary to Type 2 DM, also wi th a remote DU, 2013, hypertension, hyperlipidemia, DJD of knees, SHPTH, ASCVD, s/p left CE A, 2005, anemia secondary to CKD, and Type 2 DM. He states that he continues to follow a low salt diet, and that his BP at home is consistently < 140/80 mmHg. He denies edema, CORONADO , hematuria, somnolence, or anorexia. Outpatient Prescriptions Marked as Taking for the 06/06/16 encounter (Off-Site Visit) with Olayinka Sanchez DO Medication Sig Dispense Refill allopurinol (ZYLOPRIM) 300 mg tablet Take 300 mg by mouth Daily. aspirin 81 MG tablet Take 1 tablet by mouth Daily. calcitRIOL (ROCALTROL) 0.5 MCG capsule Take 1 capsule by mouth Daily. 30 capsule [DISCONTINUED] calcitRIOL (ROCALTROL) 0.5 MCG capsule Take 2 capsules by mouth Every ot her day. (Patient taking differently: Take 0.5 mcg by mouth Daily.) 90 capsule 4 carvedilol (COREG) 25 mg tablet TAKE ONE TABLET BY MOUTH TWICE A DAY (WITH BREAKFAST AN D DINNER) 60 tablet 6 furosemide (LASIX) 40 mg tablet TAKE ONE TABLET BY MOUTH TWICE A DAY 60 tablet 6 Linagliptin (TRADJENTA) 5 MG TABS Take 5 mg by mouth Daily. loratadine-pseudoePHEDrine (CLARITIN-D 12 HOUR) 5-120 mg per tablet Take 1 tablet by mo uth as needed. losartan (COZAAR) 25 mg tablet Take 1 tablet by mouth Daily. 90 tablet 4 mometasone (ELOCON) 0.1 % cream Apply topically Daily. [place]-3 Fatty Acids (FISH OIL) 300 MG CAPS Take 300 mg by mouth Daily. rosuvastatin (CRESTOR) 5 MG tablet Take 5 mg by mouth Three times a week. terbinafine (LAMISIL) 250 MG tablet Take 250 mg by mouth Daily. For 90 days, then, off for 90 days. Allergies Allergen Reactions Lisinopril Other (See Comments) Cough Penicillins Rash Objective: BP 162/82 mmHg | Temp(Src) 35.6 C (96 F) | Wt 129.8 kg (286 lb 2.5 oz) Physical Exam Heart: Regular rate and rhythm with no S3, S4, murmur or rub. Lungs: CTA bilaterally. No rales or wheezes. Abdomen: Soft, obese, normoactive bowel sounds. Extremities: 1+ edema, no clubbing, no foot ulcer. Lab Results Component Value Date NAEX 140 06/01/2016 KEX 4.3 06/01/2016 CLEX 101 06/01/2016 CO2EX 29 06/01/2016 BUNEX 35* 06/01/2016 CREEX 1.95* 06/01/2016 EGFREX 34 06/01/2016 GLUEX 148* 06/01/2016 PHOSEX 4.0 10/22/2015 PTHEX 129* 10/22/2015 FNW4NOB 5.9 06/01/2016 Lab Results Component Value Date WBCEX 6 02/23/2016 HGBEX 13.3* 06/01/2016 HCTEX 39* 06/01/2016 PLTEX 130* 06/01/2016 Lab Results Component Value Date CRCLEARANCE 57.0* 06/01/2016 PROTEX 175 06/01/2016 Assessment: 1. CKD Stage 3, secondary to diabetic glomerulosclerosis and HTN--surprisingly, his GFR is slightly improved. His proteinuria is stable. 2. Hypertension--his stable proteinuria, would suggest that his home BP is under reasonabl y good control. 3. Type 2 DM--excellent control. 4. SHPTH--PTH is borderline for Stage 3 CKD. 5. 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 6. ASCVD/ s/p left CEA, 2005--stable. 7. Hyperlipidemia--on statin Rx. 8. Gout--in remission. Plan: 1. 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 I reviewed with him that his stabl e Ccr and proteinuria are good prognostic signs for his CKD. 2. Will observe his PTH for now. If not better at next visit, will increase the Calcitriol to 1 mcg, daily to target his PTH < pg/m. 3. Will continue the losartan for its cardioprotective effect. 4. Will plan to see him back in 6 mo. at the [facility] Clinic at [facility]. He will hav e a CBC, CMP, P04, PTH, HbA1c, lipid profile and 24-hour urine collection one week prior to that. : Darrel Otero DPM documented in thi s encounter Plan of Treatment +--------+---------+ + + + | Date | Type | Specialty | Care Team | Description | +--------+---------+ + + + | 05/20/ | Office | Cardiology | Yumiko Del Valle, | | | 2019 | Visit | | MD Lupe TYLER | | | | | | [place] | | | | | | [address] | | | | | | | | +--------+---------+ + + + documented as of this encounter Procedures + +--------+ + + + | Procedure Name | Priori | Date/Time | Associated Diagnosis | Comments | | | ty | | | | + +--------+ + + + | LABS - EXTERNAL SCAN | | 11/28/2016 | | Results for this | | | | 12:00 AM | | procedure are in the | | | | PST | | results section. | + +--------+ + + + | LABS - EXTERNAL SCAN | | 09/29/2016 | | Results for this | | | | 12:00 AM | | procedure are in the | | | | PST | | results section. | + +--------+ + + + documented in this encounter Results LABS - EXTERNAL SCAN (11/28/2016 12:00 AM PST) + + + | Narrative | Performed At | + + + | Ordered by an | | | unspecified provider. | | + + + LABS - EXTERNAL SCAN (09/29/2016 12:00 AM PST) + + + | Narrative | Performed At | + + + | Ordered by an | | | unspecified provider. | | + + + documented in this encounter Visit Diagnoses + + | Diagnosis | + + | Chronic kidney disease, stage III (moderate) (HCC) - Primary Chronic kidney disease, | | Stage III (moderate) | + + | Type 2 diabetes mellitus with stage 3 chronic kidney disease (HCC) Type II or | | unspecified type diabetes mellitus with renal manifestations, not stated as uncontrolled | + + | Essential hypertension with goal blood pressure less than 130/80 | + + | High cholesterol Pure hypercholesterolemia | + + documented in this encounter"
--- OUTSIDE RECORDS SUMMARY | ~2020-04-03 | XMS | Clinical Summary ---
Demographics + + + | Address | [address] | | | [place] [address] | + + + | Home Phone | | + + + | Preferred Language | Unknown | + + + | Marital Status | Single | + + + | Adventism Affiliation | Unknown | + + + | Race | Unknown | + + + | Ethnic Group | Unknown | + + + Author + + + | Author | [facility] | | | and [place] | + + + | Organization | [facility] | [...] [place] | | | | | [id number] | | + + + + + | Atif Delgadillo | ECON | [place] | | | | | [address] | | + + + + + | Caleb Dawn | ECON | Unknown | | + + + + + Care Team Providers + +------+ + | Care Strip Stamp Straightener Name | Role | Phone | + +------+ + | Anoop Moyer MD | PCP | | + +------+ + Allergies + + + + + + | Active Allergy | Reactions | Severity | Noted | Comments | | | | | Date | | + + + + + + | Atorvastatin | Other (See Comments) | Medium | 08/29/20 | weakness weakness | | | | | 13 | | + + + + + + | Colchicine | Hives | High | 02/01/20 | | | | | | 18 | | + + + + + + | Lisinopril | Other (See | Medium | 08/29/20 | Cough | | | Comments), Cough | | 13 | | + + + + + + | Penicillins | Rash, Hives | High | 08/29/20 | | | | | | 13 | | + + + + + + Medications + + + +---------+------+------+-------+ | Medication | Sig | Dispensed | Refills | Star | End | Statu | | | | | | t | Date | s | | | | | | Date | | | + + + +---------+------+------+-------+ | allopurinol | Take 300 mg by mouth | | 0 | | | Activ | | (ZYLOPRIM) 300 mg | Daily. | | | | | e | | tablet | | | | | | | + + + +---------+------+------+-------+ | mometasone | Apply topically | | 0 | | | Activ | | (ELOCON) 0.1 % cream | Daily. | | | | | e | + + + +---------+------+------+-------+ | aspirin 81 MG | Take 1 tablet by | | 0 | 12/0 | | Activ | | tabletIndications: | mouth Daily. | | | 06/08 | | e | | Chronic kidney | | | | 15 | | | | disease, stage III | | | | | | | | (moderate) (HCC), | | | | | | | | Type 2 diabetes | | | | | | | | mellitus with stage | | | | | | | | 3 chronic kidney | | | | | | | | disease (HCC), | | | | | | | | Hypertension, | | | | | | | | essential, Secondary | | | | | | | | hyperparathyroidism | | | | | | | | of renal origin | | | | | | | | (HCC) | | | | | | | + + + +---------+------+------+-------+ | rosuvastatin | Take 5 mg by mouth | | 0 | | | Activ | | (CRESTOR) 5 MG | nightly. | | | | | e | | tabletIndications: | | | | | | | | Chronic kidney | | | | | | | | disease, stage III | | | | | | | | (moderate) (HCC), | | | | | | | | Type 2 diabetes | | | | | | | | mellitus with stage | | | | | | | | 3 chronic kidney | | | | | | | | disease (HCC), | | | | | | | | Hypertension, | | | | | | | | essential, Secondary | | | | | | | | hyperparathyroidism | | | | | | | | of renal origin | | | | | | | | (HCC) | | | | | | | + + + +---------+------+------+-------+ | Palmer-3 Fatty | Take 1,200 mg by | | 0 | | | Activ | | Acids (FISH OIL) | mouth Daily. | | | | | e | | 1200 MG CAPS | | | | | | | + + + +---------+------+------+-------+ | liraglutide | Inject 1.2 mg under | | 11 | 12/0 | | Activ | | (VICTOZA) 18 mg/3 mL | the skin Daily. | | | 4/20 | | e | | | | | | 17 | | | | injectionIndications | | | | | | | | : Chronic kidney | | | | | | | | disease, stage III | | | | | | | | (moderate) (HCC), | | | | | | | | Type 2 diabetes | | | | | | | | mellitus with stage | | | | | | | | 3 chronic kidney | | | | | | | | disease, with | | | | | | | | long-term current | | | | | | | | use of insulin | | | | | | | | (HCC), Essential | | | | | | | | hypertension with | | | | | | | | goal blood pressure | | | | | | | | less than 130/80, | | | | | | | | Hyperparathyroidism | | | | | | | | due to renal | | | | | | | | insufficiency (HCC) | | | | | | | + + + +---------+------+------+-------+ | cyanocobalamin | Take 1,000 mcg by | | 0 | | | Activ | | (VITAMIN B-12) 1000 | mouth 2 times daily. | | | | | e | | MCG tablet | | | | | | | + + + +---------+------+------+-------+ | fluticasone | 1 spray by Each Nare | | 0 | | | Activ | | (FLONASE) 50 | route Daily. | | | | | e | | mcg/nasal spray | | | | | | | + + + +---------+------+------+-------+ | glimepiride | Take 1 mg by mouth | | 0 | | | Activ | | (AMARYL) 1 mg tablet | every morning. | | | | | e | | | Before breakfast | | | | | | + + + +---------+------+------+-------+ | carvedilol (COREG) | Take 1 tablet by | | 0 | 06/2 | | Activ | | 6.25 mg tablet | mouth 2 times daily. | | | 6/20 | | e | | | With meals | | | 19 | | | + + + +---------+------+------+-------+ | Multiple | Take 1 tablet by | | 0 | | | Activ | | Vitamins-Minerals | mouth Daily. | | | | | e | | (CENTRUM PO) | Multivitamin/iron/fo | | | | | | | | lic acid (CENTRUM | | | | | | | | COMPLETE ORAL) | | | | | | + + + +---------+------+------+-------+ | paricalcitol | Take 1 capsule by | 30 | 4 | 04/2 | | Activ | | (ZEMPLAR) 1 mcg | mouth Three times a | capsule | | 7/20 | | e | | capsule | week. | | | 20 | | | + + + +---------+------+------+-------+ | losartan (COZAAR) | Take 1 tablet by | 90 | 3 | 05/1 | | Activ | | 50 mg tablet | mouth Daily. | tablet | | 2/20 | | e | | | | | | 20 | | | + + + +---------+------+------+-------+ | furosemide (LASIX) | Take 2 tablets by | 240 | 3 | 05/1 | | Activ | | 80 mg tablet | mouth 2 times daily. | tablet | | 2/20 | | e | | | | | | 20 | | | + + + +---------+------+------+-------+ | furosemide (LASIX) | TAKE ONE TABLET BY | 60 | 6 | 01/3 | 04/2 | Disco | | 40 mg tablet | MOUTH TWICE A DAY | tablet | | 0/20 | 7/20 | ntinu | | | | | | 15 | 20 | ed | + + + +---------+------+------+-------+ | carvedilol (COREG) | Take 0.5 tablets by | 60 | 6 | 04/20 | 04/ | Disco | | 25 mg tablet | mouth 2 times daily | tablet | | 06/08 | 06/08 | ntinu | | | (with breakfast & | | | 19 | 20 | ed | | | dinner). | | | | | (Ther | | | | | | | | apy | | | | | | | | compl | | | | | | | | eted) | + + + +---------+------+------+-------+ | melatonin 5 mg | Take 3 mg by mouth. | | 0 | | 02/19 | Disco | | tablet | At bedtime as needed | | | | 06/08 | ntinu | | | | | | | 20 | ed | | | | | | | | (Ther | | | | | | | | apy | | | | | | | | compl | | | | | | | | eted) | + + + +---------+------+------+-------+ | losartan (COZAAR) | Take 25 mg by mouth | | 0 | 08/21 | 03/20 | Disco | | 25 mg tablet | Daily. | | | 06/08 | 01/09 | ntinu | | | | | | 18 | 20 | ed | + + + +---------+------+------+-------+ | nateglinide | | | 0 | 02/0 | 04/2 | Disco | | (STARLIX) 60 MG | | | | 4/20 | 7/20 | ntinu | | tablet | | | | 19 | 20 | ed | | | | | | | | (Ther | | | | | | | | apy | | | | | | | | compl | | | | | | | | eted) | + + + +---------+------+------+-------+ | furosemide (LASIX) | Take 1 tablet by | 180 | 3 | 04/2 | 05/1 | Disco | | 80 mg tablet | mouth 2 times daily. | tablet | | 7/20 | 2/20 | ntinu | | | | | | 20 | 20 | ed | + + + +---------+------+------+-------+ Active Problems + + + | Problem | Noted Date | + + + | Type 2 diabetes mellitus with hyperglycemia, without long-term | 11/22/2018 | | current use of insulin | | + + + | QUIANA treated with BiPAP | 01/31/2018 | + + + | S/P carotid endarterectomy | 01/31/2018 | + + + | Arteriosclerotic vascular disease | 01/31/2018 | + + + | Essential hypertension | 01/31/2018 | + + + | Secondary hyperparathyroidism of renal origin | 10/26/2015 | + + + | Chest pain | 01/02/2014 | + + + + + | Overview: Echo, 12/15/2013, [facility] was 75%, [facility] | KELLE Bacauclear Stress Test, LVEF by gated SPECT was 61% | + + + + + | Acute GI bleeding | 12/24/2013 | + + + | Gastric ulcer with hemorrhage | 12/24/2013 | + + + | History of GI bleed | 12/24/2013 | + + + | Type 2 diabetes mellitus with stage 3 chronic kidney disease | 09/05/2013 | + + + | Chronic kidney disease, stage III (moderate) | 09/05/2013 | + + + | Stage 4 chronic kidney disease | 09/05/2013 | + + + | Light headedness | | + + + | Essential hypertension with goal blood pressure less than 130/80 | | + + + | Hyperlipidemia, mixed | | + + + | ASCVD (arteriosclerotic cardiovascular disease) | | + + + | Hypotension | | + + + | CHF (congestive heart failure) | | + + + Resolved Problems + + + + | Problem | Noted | Resolved | | | Date | Date | + + + + | Chronic kidney disease, stage III (moderate) | 10/04/20 | | | | 14 | 8 | + + + + | Unspecified hypertensive kidney disease with chronic kidney | 09/05/20 | | | disease stage I through stage IV, or unspecified(403.90) | 13 | 5 | + + + + Encounters +--------+ + + + + | Date | Type | Specialty | Care Team | Description | +--------+ + + + + | 03/31/ | Documentati | Nephrology | Freddy Sanchez | | | 2019 | on | | Olayinka, DO | | +--------+ + + + + | 03/16/ | Off-Site | Nephrology Freddy Liu | | | 2019 | Visit | | Olayinka DO | | +--------+ + + + + | 03/12/ | Abstract | Nephrology | Freddy Sanchez | | | 2019 | | | M, DO | | +--------+ + + + + | 02/13/ | Orders Only | Nephrology | Freddy Sanchez | Chronic kidney | | 2020 | | | M, DO | disease, stage III | | | | | | (moderate) ([facility]) | | | | | | (Primary Dx); Type 2 | | | | | | diabetes mellitus | | | | | | with stage 3 chronic | | | | | | kidney disease, | | | | | | unspecified whether | | | | | | rn long term care insulin | | | | | | use ([facility]); | | | | | | Hyperlipidemia, | | | | | | mixed | +--------+ + + + + from Last 3 Months Family History + + + + + | Medical History | Relation | Name | Comments | + + + + + | Alcohol abuse | Father | | | + + + + + | Cirrhosis | Father | | | + + + + + | Deep vein thrombosis | Father | | | + + + + + | Arthritis | Mother | Yulisa B. | | | | | | | | | | Flores | | + + + + + | Heart disease | Mother | Dalton B. | Had Triple heart bipass. | | | | | | | | | [place] | | + + + + + | Heart failure | Mother | Dalton B. | | | | | | | | | | [place] | | + + + + + + + + + + | Relation | Name | Status | Comments | + + + + + | Father | | | | | | | (Age | | | | | 63) | | + + + + + | Father | | | | + + + + + | Mother | Dalton B. | | Triple CABG | | | Flores | (Age | | | | | 86) | | + + + + + | Mother | Dalton B. | | | | | [place] | | | + + + + + Social History + [...] recent travel history available. | + + Last Filed Vital Signs + + + + + | Vital Sign | Reading | Time Taken | Comments | + + + + + | Blood Pressure | 170/60 | 03/16/2020 3:25 PM | | | | | PDT | | + + + + + | Pulse | 78 | 05/15/2019 10:51 AM | | | | | PDT | | + + + + + | Temperature | 37.1 C (98.8 F) | 03/16/2020 3:25 PM | | | | | PDT | | + + + + + | Respiratory Rate | 16 | 03/16/2020 3:25 PM | | | | | PDT | | + + + + + | Oxygen Saturation | 98% | 09/04/2013 10:53 AM | | | | | PDT | | + + + + + | Inhaled Oxygen | - | - | | | Concentration | | | | + + + + + | Weight | 134.1 kg (295 lb 9.6 | 03/16/2020 3:25 PM | | | | oz) | PDT | | + + + + + | Height | 190.5 cm (6' 3") | 05/15/2019 10:51 AM | | | | | PDT | | + + + + + | Body Mass Index | 36.95 | 05/15/2019 10:51 AM | | | | | PDT | | + + + + + Plan of Treatment +--------+---------+ + + + | Date | Type | Specialty | Care Team | Description | +--------+---------+ + + + | 05/20/ | Office | Cardiology | Yumiko Del Valle, | | | 2020 | Visit | | [address] | | | | | | [facility] | | | | | | [address] | | | | | | | | +--------+---------+ + + + + + + + + | Health Maintenance | Due Date | Last Done | Comments | + + + + + | Vaccine: | | | | | Dtap/Tdap/Td (1 - | 4 | | | | Tdap) | | | | + + + + + | Diabetic Eye Exam | | | | | | 1 | | | + + + + + | Diabetic Foot Exam | | | | | | 1 | | | + + + + + | Vaccine: Zoster (1 | | | | | of 2) | 3 | | | + + + + + | Vaccine: | | | | | Pneumococcal 65+ (1 | 8 | | | | of 2 - PCV13) | | | | + + + + + | Adult Annual | | | | | Wellness Visit | 5 | | | + + + + + | Hemoglobin A1c | | 03/11/2020, 07/26/2019, | | | Screening | 0 | 05/02/2019, Additional history | | | | | exists | | + + + + + | Vaccine: Influenza | Completed | 01/28/2020, 11/22/2018, | | | | | 08/30/2017, Additional history | | | | | exists | | + + + + + Procedures + +--------+ + + + | Procedure Name | Priori | Date/Time | Associated Diagnosis | Comments | | | ty | | | | + +--------+ + + + | LABS - EXTERNAL SCAN | | 03/11/2020 | | Results for this | | | | 12:00 AM | | procedure are in the | | | | PDT | | results section. | + +--------+ + + + | EXTERNAL LAB: | Routin | 03/11/2020 | | Results for this | | PROTEIN, URINE, 24HR | e | | | procedure are in the | | | | | | results section. | + +--------+ + + + | EXTERNAL LAB: | Routin | 03/11/2020 | | Results for this | | PROTEIN, TOTAL | e | | | procedure are in the | | | | | | results section. | + +--------+ + + + | EXTERNAL LAB: PTH, | Routin | 03/11/2020 | | Results for this | | INTACT | e | | | procedure are in the | | | | | | results section. | + +--------+ + + + | CREATININE | Routin | 03/11/2020 | | Results for this | | CLEARANCE, RESULT | e | | | procedure are in the | | | | | | results section. | + +--------+ + + + | HEMOGLOBIN A1C | Routin | 03/11/2020 | | Results for this | | | e | | | procedure are in the | | | | | | results section. | + +--------+ + + + | EXTERNAL LAB: BUN | Routin | 03/11/2020 | | Results for this | | | e | | | procedure are in the | | | | | | results section. | + +--------+ + + + | EXTERNAL LAB: | Routin | 03/11/2020 | | Results for this | | GLUCOSE | e | | | procedure are in the | | | | | | results section. | + +--------+ + + + | EXTERNAL LAB: ALT | Routin | 03/11/2020 | | Results for this | | | e | | | procedure are in the | | | | | | results section. | + +--------+ + + + | EXTERNAL LAB: AST | Routin | 03/11/2020 | | Results for this | | | e | | | procedure are in the | | | | | | results section. | + +--------+ + + + | EXTERNAL LAB: | Routin | 03/11/2020 | | Results for this | | ALKALINE PHOSPHATASE | e | | | procedure are in the | | | | | | results section. | + +--------+ + + + | EXTERNAL LAB: | Routin | 03/11/2020 | | Results for this | | BILIRUBIN, TOTAL | e | | | procedure are in the | | | | | | results section. | + +--------+ + + + | EXTERNAL LAB: | Routin | 03/11/2020 | | Results for this | | ALBUMIN | e | | | procedure are in the | | | | | | results section. | + +--------+ + + + | EXTERNAL LAB: | Routin | 03/11/2020 | | Results for this | | PHOSPHORUS | e | | | procedure are in the | | | | | | results section. | + +--------+ + + + | EXTERNAL LAB: | Routin | 03/11/2020 | | Results for this | | CALCIUM | e | | | procedure are in the | | | | | | results section. | + +--------+ + + + | EXTERNAL LAB: CARBON | Routin | 03/11/2020 | | Results for this | | DIOXIDE | e | | | procedure are in the | | | | | | results section. | + +--------+ + + + | EXTERNAL LAB: | Routin | 03/11/2020 | | Results for this | | CHLORIDE | e | | | procedure are in the | | | | | | results section. | + +--------+ + + + | EXTERNAL LAB: | Routin | 03/11/2020 | | Results for this | | POTASSIUM | e | | | procedure are in the | | | | | | results section. | + +--------+ + + + | EXTERNAL LAB: SODIUM | Routin | 03/11/2020 | | Results for this | | | e | | | procedure are in the | | | | | | results section. | + +--------+ + + + | EXTERNAL LAB: CBC | Routin | 03/11/2020 | | Results for this | | | e | | | procedure are in the | | | | | | results section. | + +--------+ + + + | EXTERNAL LAB: | Routin | 03/11/2020 | | Results for this | | TRIGLYCERIDES | e | | | procedure are in the | | | | | | results section. | + +--------+ + + + | EXTERNAL LAB: | Routin | 03/11/2020 | | Results for this | | CHOLESTEROL, HDL | e | | | procedure are in the | | | | | | results section. | + +--------+ + + + | EXTERNAL LAB: | Routin | 03/11/2020 | | Results for this | | CHOLESTEROL, TOTAL | e | | | procedure are in the | | | | | | results section. | + +--------+ + + + | EXTERNAL LAB: | Routin | 03/11/2020 | | Results for this | | CHOLESTEROL, LDL | e | | | procedure are in the | | | | | | results section. | + +--------+ + + + | EXTERNAL LAB: EGFR | Routin | 03/11/2020 | | Results for this | | | e | | | procedure are in the | | | | | | results section. | + +--------+ + + + | EXTERNAL LAB: | Routin | 03/11/2020 | | Results for this | | CREATININE | e | | | procedure are in the | | | | | | results section. | + +--------+ + + + from Last 3 Months Results External Lab: BUN (03/11/2020) + +-------+ + + + | Component | Value | Ref Range | Performed | Pathologist | | | | | At | Signature | + +-------+ + + + | BUN, | 37 | | EXTERNAL | | | External | | | LAB | | + +-------+ + + + + +---------+ + + | Performing | Address | City/State/Zipcode | Phone Number | | Organization | | | | + +---------+ + + | EXTERNAL LAB | | | | + +---------+ + + External Lab: Glucose (03/11/2020) + +-------+ + + + | Component | Value | Ref Range | Performed | Pathologist | | | | | At | Signature | + +-------+ + + + | Glucose, | 147 | | EXTERNAL | | | External | | | LAB | | + +-------+ + + + + +---------+ + + | Performing | Address | City/State/Zipcode | Phone Number | | Organization | | | | + +---------+ + + | EXTERNAL LAB | | | | + +---------+ + + External Lab: ALT (03/11/2020) + +-------+ + + + | Component | Value | Ref Range | Performed | Pathologist | | | | | At | Signature | + +-------+ + + + | ALT, | 21 | | EXTERNAL | | | External | | | LAB | | + +-------+ + + + + +---------+ + + | Performing | Address | City/State/Zipcode | Phone Number | | Organization | | | | + +---------+ + + | EXTERNAL LAB | | | | + +---------+ + + External Lab: AST (03/11/2020) + +-------+ + + + | Component | Value | Ref Range | Performed | Pathologist | | | | | At | Signature | + +-------+ + + + | AST, | 14 | | EXTERNAL | | | External | | | LAB | | + +-------+ + + + + +---------+ + + | Performing | Address | City/State/Zipcode | Phone Number | | Organization | | | | + +---------+ + + | EXTERNAL LAB | | | | + +---------+ + + External Lab: Alkaline Phosphatase (03/11/2020) + +-------+ + + + | Component | Value | Ref Range | Performed | Pathologist | | | | | At | Signature | + +-------+ + + + | ALP, | 90 | | EXTERNAL | | | External | | | LAB | | + +-------+ + + + + +---------+ + + | Performing | Address | City/State/Zipcode | Phone Number | | Organization | | | | + +---------+ + + | EXTERNAL LAB | | | | + +---------+ + + External Lab: Bilirubin, Total (03/11/2020) + +-------+ + + + | Component | Value | Ref Range | Performed | Pathologist | | | | | At | Signature | + +-------+ + + + | Bilirubin, | 0.8 | | EXTERNAL | | | Total, | | | LAB | | | External | | | | | + +-------+ + + + + +---------+ + + | Performing | Address | City/State/Zipcode | Phone Number | | Organization | | | | + +---------+ + + | EXTERNAL LAB | | | | + +---------+ + + External Lab: Albumin (03/11/2020) + +-------+ + + + | Component | Value | Ref Range | Performed | Pathologist | | | | | At | Signature | + +-------+ + + + | Albumin, | 4.5 | | EXTERNAL | | | External | | | LAB | | + +-------+ + + + + +---------+ + + | Performing | Address | City/State/Zipcode | Phone Number | | Organization | | | | + +---------+ + + | EXTERNAL LAB | | | | + +---------+ + + External Lab: Protein, Total (03/11/2020) + +-------+ + + + | Component | Value | Ref Range | Performed | Pathologist | | | | | At | Signature | + +-------+ + + + | Protein, | 6.5 | | EXTERNAL | | | Total, | | | LAB | | | External | | | | | + +-------+ + + + + +---------+ + + | Performing | Address | City/State/Zipcode | Phone Number | | Organization | | | | + +---------+ + + | EXTERNAL LAB | | | | + +---------+ + + External Lab: Phosphorus (03/11/2020) + +-------+ + + + | Component | Value | Ref Range | Performed | Pathologist | | | | | At | Signature | + +-------+ + + + | Phosphorus, | 2.9 | | EXTERNAL | | | External | | | LAB | | + +-------+ + + + + +---------+ + + | Performing | Address | City/State/Zipcode | Phone Number | | Organization | | | | + +---------+ + + | EXTERNAL LAB | | | | + +---------+ + + External Lab: Calcium (03/11/2020) + +-------+ + + + | Component | Value | Ref Range | Performed | Pathologist | | | | | At | Signature | + +-------+ + + + | Calcium, | 9.8 | | EXTERNAL | | | External | | | LAB | | + +-------+ + + + + +---------+ + + | Performing | Address | City/State/Zipcode | Phone Number | | Organization | | | | + +---------+ + + | EXTERNAL LAB | | | | + +---------+ + + External Lab: Carbon Dioxide (03/11/2020) + +-------+ + + + | Component | Value | Ref Range | Performed | Pathologist | | | | | At | Signature | + +-------+ + + + | Carbon | 30 | | EXTERNAL | | | Dioxide, | | | LAB | | | External | | | | | + +-------+ + + + + +---------+ + + | Performing | Address | City/State/Zipcode | Phone Number | | Organization | | | | + +---------+ + + | EXTERNAL LAB | | | | + +---------+ + + External Lab: Chloride (03/11/2020) + +-------+ + + + | Component | Value | Ref Range | Performed | Pathologist | | | | | At | Signature | + +-------+ + + + | Chloride, | 103 | | EXTERNAL | | | External | | | LAB | | + +-------+ + + + + +---------+ + + | Performing | Address | City/State/Zipcode | Phone Number | | Organization | | | | + +---------+ + + | EXTERNAL LAB | | | | + +---------+ + + External Lab: Potassium (03/11/2020) + +-------+ + + + | Component | Value | Ref Range | Performed | Pathologist | | | | | At | Signature | + +-------+ + + + | Potassium, | 4.6 | | EXTERNAL | | | External | | | LAB | | + +-------+ + + + + +---------+ + + | Performing | Address | City/State/Zipcode | Phone Number | | Organization | | | | + +---------+ + + | EXTERNAL LAB | | | | + +---------+ + + External Lab: Sodium (03/11/2020) + +-------+ + + + | Component | Value | Ref Range | Performed | Pathologist | | | | | At | Signature | + +-------+ + + + | Sodium, | 142 | | EXTERNAL | | | External | | | LAB | | + +-------+ + + + + +---------+ + + | Performing | Address | City/State/Zipcode | Phone Number | | Organization | | | | + +---------+ + + | EXTERNAL LAB | | | | + +---------+ + + External Lab: PTH, Intact (03/11/2020) + + + + + + | Component | Value | Ref Range | Performed | Pathologist | | | | | At | Signature | + + + + + + | PTH Intact, | 177.3 (A) | 12 - 88 | | | | External | | | | | + + + + + + + + | Specimen | + + | | + + External Lab: Protein, Urine, 24Hr (03/11/2020) + +-------+ + + + | Component | Value | Ref Range | Performed | Pathologist | | | | | At | Signature | + +-------+ + + + | Protein, | 125 | | EXTERNAL | | | Urine 24Hr, | | | LAB | | | External | | | | | + +-------+ + + + + + | Specimen | + + | Urine | + + + +---------+ + + | Performing | Address | City/State/Zipcode | Phone Number | | Organization | | | | + +---------+ + + | EXTERNAL LAB | | | | + +---------+ + + External Lab: CBC (03/11/2020) + +-------+ + + + | Component | Value | Ref Range | Performed | Pathologist | | | | | At | Signature | + +-------+ + + + | WBC, | 5.9 | | EXTERNAL | | | External | | | LAB | | + +-------+ + + + | HGB, | 13.9 | | EXTERNAL | | | External | | | LAB | | + +-------+ + + + | HCT, | 40.5 | | EXTERNAL | | | External | | | LAB | | + +-------+ + + + | PLT, | 144 | | EXTERNAL | | | External | | | LAB | | + +-------+ + + + | RBC, | 4.31 | | EXTERNAL | | | External | | | LAB | | + +-------+ + + + | MCV, | 94 | | EXTERNAL | | | External | | | LAB | | + +-------+ + + + | RDW, | 14.7 | | EXTERNAL | | | External | | | LAB | | + +-------+ + + + + +---------+ + + | Performing | Address | City/State/Zipcode | Phone Number | | Organization | | | | + +---------+ + + | EXTERNAL LAB | | | | + +---------+ + + External Lab: Triglycerides (03/11/2020) + +-------+ + + + | Component | Value | Ref Range | Performed | Pathologist | | | | | At | Signature | + +-------+ + + + | Triglycerid | 214 | | EXTERNAL | | | es, | | | LAB | | | External | | | | | + +-------+ + + + + + | Specimen | + + | Blood | + + + +---------+ + + | Performing | Address | City/State/Zipcode | Phone Number | | Organization | | | | + +---------+ + + | EXTERNAL LAB | | | | + +---------+ + + External Lab: Cholesterol, HDL (03/11/2020) + +-------+ + + + | Component | Value | Ref Range | Performed | Pathologist | | | | | At | Signature | + +-------+ + + + | HDL | 32.6 | mg/dl | EXTERNAL | | | Cholesterol | | | LAB | | | , External | | | | | + +-------+ + + + + + | Specimen | + + | Blood | + + + +---------+ + + | Performing | Address | City/State/Zipcode | Phone Number | | Organization | | | | + +---------+ + + | EXTERNAL LAB | | | | + +---------+ + + External Lab: Cholesterol, Total (03/11/2020) + +-------+ + + + | Component | Value | Ref Range | Performed | Pathologist | | | | | At | Signature | + +-------+ + + + | Cholesterol | 138 | mg/dl | EXTERNAL | | | , Total, | | | LAB | | | External | | | | | + +-------+ + + + + + | Specimen | + + | Blood | + + + +---------+ + + | Performing | Address | City/State/Zipcode | Phone Number | | Organization | | | | + +---------+ + + | EXTERNAL LAB | | | | + +---------+ + + External Lab: Cholesterol, LDL (03/11/2020) + +-------+ + + + | Component | Value | Ref Range | Performed | Pathologist | | | | | At | Signature | + +-------+ + + + | LDL | 63 | | EXTERNAL | | | Cholesterol | | | LAB | | | , Direct, | | | | | | External | | | | | + +-------+ + + + + + | Specimen | + + | Blood | + + + +---------+ + + | Performing | Address | City/State/Zipcode | Phone Number | | Organization | | | | + +---------+ + + | EXTERNAL LAB | | | | + +---------+ + + External Lab: eGFR (03/11/2020) + +-------+ + + + | Component | Value | Ref Range | Performed | Pathologist | | | | | At | Signature | + +-------+ + + + | eGFR, | 37 | | EXTERNAL | | | External | | | LAB | | + +-------+ + + + + + | Specimen | + + | Blood | + + + +---------+ + + | Performing | Address | City/State/Zipcode | Phone Number | | Organization | | | | + +---------+ + + | EXTERNAL LAB | | | | + +---------+ + + External Lab: Creatinine (03/11/2020) + +-------+ + + + | Component | Value | Ref Range | Performed | Pathologist | | | | | At | Signature | + +-------+ + + + | Creatinine, | 1.85 | | EXTERNAL | | | External | | | LAB | | + +-------+ + + + + + | Specimen | + + | Blood | + + + +---------+ + + | Performing | Address | City/State/Zipcode | Phone Number | | Organization | | | | + +---------+ + + | EXTERNAL LAB | | | | + +---------+ + + LABS - EXTERNAL SCAN (03/11/2020 12:00 AM PDT) + + + | Narrative | Performed At | + + + | Ordered by an | | | unspecified provider. | | + + + Creatinine Clearance, Result (03/11/2020) + + + + + + | Component | Value | Ref Range | Performed | Pathologist | | | | | At | Signature | + + + + + + | CREATININE | 41.0 (A) | 97.0 - 137.0 | | | | CLEARANCE | | mL/min | | | + + + + + + | 24H Urine | 2,500 | mL | | | | Volume | | | | | + + + + + + | Protein, | 125 | | | | | Urine quant | | | | | + + + + + + + + | Specimen | + + | Urine | + + Hemoglobin A1C (03/11/2020) + +-------+ + + + | Component | Value | Ref Range | Performed | Pathologist | | | | | At | Signature | + +-------+ + + + | Hemoglobin | 6.0 | % | EXTERNAL | | | A1c | | | LAB | | + +-------+ + + + + + | Specimen | + + | Blood | + + + +---------+ + + | Performing | Address | City/State/Zipcode | Phone Number | | Organization | | | | + +---------+ + + | EXTERNAL LAB | | | | + +---------+ + + from Last 3 Months Insurance + +--------+ +--------+ +---------+--------+ | Payer | Benefi | Subscriber | Effect | Phone | Address | Type | | | t Plan | ID | emily | | | | | | / | | Dates | | | | | | Group | | | | | | + +--------+ +--------+ +---------+--------+ | [employer] | MAILHA | [id number] | 11/20/19 | [phone] | | PPO | | PLN | [employer] | | 18-Pre | 8 | | | | | [employer] | | sent | | | | | | PPO | | | | | | + +--------+ +--------+ +---------+--------+ | MEDICARE | MEDICA | [id number] | 02/19/20 | [phone] | | Medica | | | RE | | 08-Pre | 5 | | re | | | PART A | | sent | | | | + +--------+ +--------+ +---------+--------+ + +--------+ +--------+ + + | Guarantor Name | Accoun | Relation to | Date | Phone | Billing Address | | | t Type | Patient | of | | | | | | | | | | + +--------+ +--------+ + + | Sergei Tanner | Person | Self [birth year] | [address] | | [place] | al/Fam | | 1945 | [phone] | [place] | [place] | | | [address] [place] | [phone] | + +--------+ +--------+ + + | SERGEI TANNER | Person | Self | | | | | [place] | al[place]Fam | | | | | | | [place] | | | | | + +--------+ +--------+ + + Advance Directives + + + + + | Type | Date Recorded | Patient | Explanation | | | | National Facilities Manager | | + + + + + | Power of | | | | | Peer Specialist | | | | + + + + + | Advance | 05/05/2014 9:24 | | | | Directive | AM | | | + + + + +
--- OUTSIDE RECORDS SUMMARY | ~2020-04-03 | XMS | Encounter Summary ---
Demographics + + + | Address | [address] | | | [place] [address] | + + + | Home Phone | | + + + | Preferred Language | Unknown | + + + | Marital Status | Single | + + + | Zoroastrianism Affiliation | Unknown | + + + | Race | Unknown | + + + | Ethnic Group | Unknown | + + + Author + + + | Author | [facility] | | | and [place] | + + + | Organization | [facility] | | | and [place] | + + + | Address | Unknown | + + + | Phone | Unavailable | + + + Support + + + + + | Name | Relationship | Address | Phone | + + + + + | Hi Dawn | ECON | [place] | | | | | [address] | | + + + + + | Atif Delgadillo | ECON | [place], [place] | | | | | [address] | | + + + + + | Caleb Dawn | ECON | Unknown | | + + + + + Care Team Providers + +------+ + | Care [employer]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 Name | Role | Phone | + +------+ + PCP | Unavailable | + +------+ + Encounter Details +--------+ + + + + | Date | Type | Department | Care Team | Description | +--------+ + + + + | 08/27/ | Abstract | [facility] | Freddy Sanchez | | | 2012 | | NEPHROLOGY [address] | M, DO [address] | | | | | [address] | [place] | | | | | [place], [place] | [place] | | | | | [address] | [address] | | | | | [phone] | | | +--------+ + + + [...] [place] | | | | | | [address] | | | | | | | | +--------+---------+ + + + documented as of this encounter Procedures + +--------+ + + + | Procedure Name | Priori | Date/Time | Associated Diagnosis | Comments | | | ty | | | | + +--------+ + + + | EXTERNAL LAB: AST | Routin | 08/12/2013 | | Results for this | | | e | | | procedure are in the | | | | | | results section. | + +--------+ + + + | EXTERNAL LAB: ALT | Routin | 08/12/2013 | | Results for this | | | e | | | procedure are in the | | | | | | results section. | + +--------+ + + + | EXTERNAL LAB: | Routin | 08/12/2013 | | Results for this | | MICROALBUMIN/CREATIN | e | | | procedure are in the | | INE RATIO, URINE | | | | results section. | + +--------+ + + + | EXTERNAL LAB: | Routin | 08/12/2013 | | Results for this | | MICROALBUMIN, URINE | e | | | procedure are in the | | | | | | results section. | + +--------+ + + + | EXTERNAL LAB: EGFR | Routin | 08/12/2013 | | Results for this | | | e | | | procedure are in the | | | | | | results section. | + +--------+ + + + | EXTERNAL LAB: | Routin | 08/12/2013 | | Results for this | | CREATININE | e | | | procedure are in the | | | | | | results section. | + +--------+ + + + | EXTERNAL LAB: | Routin | 08/12/2013 | | Results for this | | HEMOGLOBIN A1C | e | | | procedure are in the | | | | | | results section. | + +--------+ + + + | COMPREHENSIVE | Routin | 08/12/2013 | | Results for this | | METABOLIC PANEL | e | | | procedure are in the | | | | | | results section. | + +--------+ + + + | EXTERNAL LAB: EPIFANIO | Routin | 03/05/2013 | | Results for this | | | e | | | procedure are in the | | | | | | results section. | + +--------+ + + + | EXTERNAL LAB: SUSANA | Yusuf | 03/05/2013 | | Results for this | | SCREEN | e | | | procedure are in the | | | | | | results section. | + +--------+ + + + | EXTERNAL LAB: ORION | Yusuf | 03/05/2013 | | Results for this | | | e | | | procedure are in the | | | | | | results section. | + +--------+ + + + | EXTERNAL LAB: TK | Routin | 03/05/2013 | | Results for this | | | e | | | procedure are in the | | | | | | results section. | + +--------+ + + + | EXTERNAL LAB: | Routin | 03/05/2013 | | Results for this | | TRIGLYCERIDES | e | | | procedure are in the | | | | | | results section. | + +--------+ + + + | EXTERNAL LAB: | Routin | 03/05/2013 | | Results for this | | CHOLESTEROL, HDL | e | | | procedure are in the | | | | | | results section. | + +--------+ + + + | EXTERNAL LAB: | Routin | 03/05/2013 | | Results for this | | CHOLESTEROL, TOTAL | e | | | procedure are in the | | | | | | results section. | + +--------+ + + + | EXTERNAL LAB: | Routin | 03/05/2013 | | Results for this | | CHOLESTEROL, LDL | e | | | procedure are in the | | | | | | results section. | + +--------+ + + + | EXTERNAL LAB: | Routin | 03/05/2013 | | Results for this | | MICROALBUMIN/CREATIN | e | | | procedure are in the | | INE RATIO, URINE | | | | results section. | + +--------+ + + + | EXTERNAL LAB: | Routin | 03/05/2013 | | Results for this | | MICROALBUMIN, URINE | e | | | procedure are in the | | | | | | results section. | + +--------+ + + + | EXTERNAL LAB: EGFR | Routin | 03/05/2013 | | Results for this | | | e | | | procedure are in the | | | | | | results section. | + +--------+ + + + | EXTERNAL LAB: | Routin | 03/05/2013 | | Results for this | | CREATININE | e | | | procedure are in the | | | | | | results section. | + +--------+ + + + | EXTERNAL LAB: | Routin | 03/05/2013 | | Results for this | | HEMOGLOBIN A1C | e | | | procedure are in the | | | | | | results section. | + +--------+ + + + | COMPREHENSIVE | Routin | 03/05/2013 | | Results for this | | METABOLIC PANEL | e | | | procedure are in the | | | | | | results section. | + +--------+ + + + | EXTERNAL LAB: AST | Routin | 10/15/2012 | | Results for this | | | e | | | procedure are in the | | | | | | results section. | + +--------+ + + + | EXTERNAL LAB: ALT | Routin | 10/15/2012 | | Results for this | | | e | | | procedure are in the | | | | | | results section. | + +--------+ + + + | EXTERNAL LAB: | Routin | 10/15/2012 | | Results for this | | TRIGLYCERIDES | e | | | procedure are in the | | | | | | results section. | + +--------+ + + + | EXTERNAL LAB: | Routin | 10/15/2012 | | Results for this | | CHOLESTEROL, HDL | e | | | procedure are in the | | | | | | results section. | + +--------+ + + + | EXTERNAL LAB: | Routin | 10/15/2012 | | Results for this | | CHOLESTEROL, TOTAL | e | | | procedure are in the | | | | | | results section. | + +--------+ + + + | EXTERNAL LAB: | Routin | 10/15/2012 | | Results for this | | CHOLESTEROL, LDL | e | | | procedure are in the | | | | | | results section. | + +--------+ + + + | EXTERNAL LAB: | Routin | 10/15/2012 | | Results for this | | MICROALBUMIN/CREATIN | e | | | procedure are in the | | INE RATIO, URINE | | | | results section. | + +--------+ + + + | EXTERNAL LAB: | Routin | 10/15/2012 | | Results for this | | MICROALBUMIN, URINE | e | | | procedure are in the | | | | | | results section. | + +--------+ + + + | EXTERNAL LAB: EGFR | Routin | 10/15/2012 | | Results for this | | | e | | | procedure are in the | | | | | | results section. | + +--------+ + + + | EXTERNAL LAB: | Routin | 10/15/2012 | | Results for this | | CREATININE | e | | | procedure are in the | | | | | | results section. | + +--------+ + + + | EXTERNAL LAB: | Routin | 10/15/2012 | | Results for this | | HEMOGLOBIN A1C | e | | | procedure are in the | | | | | | results section. | + +--------+ + + + | COMPREHENSIVE | Routin | 10/15/2012 | | Results for this | | METABOLIC PANEL | e | | | procedure are in the | | | | | | results section. | + +--------+ + + + | EXTERNAL LAB: CBC | Routin | 09/26/2011 | | Results for this | | | e | | | procedure are in the | | | | | | results section. | + +--------+ + + + | EXTERNAL LAB: AST | Routin | 09/26/2011 | | Results for this | | | e | | | procedure are in the | | | | | | results section. | + +--------+ + + + | EXTERNAL LAB: ALT | Routin | 09/26/2011 | | Results for this | | | e | | | procedure are in the | | | | | | results section. | + +--------+ + + + | EXTERNAL LAB: | Routin | 09/26/2011 | | Results for this | | TRIGLYCERIDES | e | | | procedure are in the | | | | | | results section. | + +--------+ + + + | EXTERNAL LAB: | Routin | 09/26/2011 | | Results for this | | CHOLESTEROL, HDL | e | | | procedure are in the | | | | | | results section. | + +--------+ + + + | EXTERNAL LAB: | Routin | 09/26/2011 | | Results for this | | CHOLESTEROL, TOTAL | e | | | procedure are in the | | | | | | results section. | + +--------+ + + + | EXTERNAL LAB: | Routin | 09/26/2011 | | Results for this | | CHOLESTEROL, LDL | e | | | procedure are in the | | | | | | results section. | + +--------+ + + + | EXTERNAL LAB: | Routin | 09/26/2011 | | Results for this | | MICROALBUMIN/CREATIN | e | | | procedure are in the | | INE RATIO, URINE | | | | results section. | + +--------+ + + + | EXTERNAL LAB: | Routin | 09/26/2011 | | Results for this | | MICROALBUMIN, URINE | e | | | procedure are in the | | | | | | results section. | + +--------+ + + + | EXTERNAL LAB: EGFR | Routin | 09/26/2011 | | Results for this | | | e | | | procedure are in the | | | | | | results section. | + +--------+ + + + | EXTERNAL LAB: | Routin | 09/26/2011 | | Results for this | | CREATININE | e | | | procedure are in the | | | | | | results section. | + +--------+ + + + | EXTERNAL LAB: | Routin | 09/26/2011 | | Results for this | | HEMOGLOBIN A1C | e | | | procedure are in the | | | | | | results section. | + +--------+ + + + | COMPREHENSIVE | Routin | 09/26/2011 | | Results for this | | METABOLIC PANEL | e | | | procedure are in the | | | | | | results section. | + +--------+ + + + | EXTERNAL LAB: AST | Routin | 02/21/2011 | | Results for this | | | e | | | procedure are in the | | | | | | results section. | + +--------+ + + + | EXTERNAL LAB: ALT | Routin | 02/21/2011 | | Results for this | | | e | | | procedure are in the | | | | | | results section. | + +--------+ + + + | EXTERNAL LAB: | Routin | 02/21/2011 | | Results for this | | TRIGLYCERIDES | e | | | procedure are in the | | | | | | results section. | + +--------+ + + + | EXTERNAL LAB: | Routin | 02/21/2011 | | Results for this | | CHOLESTEROL, HDL | e | | | procedure are in the | | | | | | results section. | + +--------+ + + + | EXTERNAL LAB: | Routin | 02/21/2011 | | Results for this | | CHOLESTEROL, TOTAL | e | | | procedure are in the | | | | | | results section. | + +--------+ + + + | EXTERNAL LAB: | Routin | 02/21/2011 | | Results for this | | CHOLESTEROL, LDL | e | | | procedure are in the | | | | | | results section. | + +--------+ + + + | EXTERNAL LAB: | Routin | 02/21/2011 | | Results for this | | MICROALBUMIN/CREATIN | e | | | procedure are in the | | INE RATIO, URINE | | | | results section. | + +--------+ + + + | EXTERNAL LAB: | Routin | 02/21/2011 | | Results for this | | MICROALBUMIN, URINE | e | | | procedure are in the | | | | | | results section. | + +--------+ + + + | EXTERNAL LAB: EGFR | Routin | 02/21/2011 | | Results for this | | | e | | | procedure are in the | | | | | | results section. | + +--------+ + + + | EXTERNAL LAB: | Routin | 02/21/2011 | | Results for this | | CREATININE | e | | | procedure are in the | | | | | | results section. | + +--------+ + + + | EXTERNAL LAB: | Routin | 02/21/2011 | | Results for this | | HEMOGLOBIN A1C | e | | | procedure are in the | | | | | | results section. | + +--------+ + + + | COMPREHENSIVE | Routin | 02/21/2011 | | Results for this | | METABOLIC PANEL | e | | | procedure are in the | | | | | | results section. | + +--------+ + + + | EXTERNAL LAB: AST | Routin | 01/18/2010 | | Results for this | | | e | | | procedure are in the | | | | | | results section. | + +--------+ + + + | EXTERNAL LAB: ALT | Routin | 01/18/2010 | | Results for this | | | e | | | procedure are in the | | | | | | results section. | + +--------+ + + + | EXTERNAL LAB: | Routin | 01/18/2010 | | Results for this | | MICROALBUMIN/CREATIN | e | | | procedure are in the | | INE RATIO, URINE | | | | results section. | + +--------+ + + + | EXTERNAL LAB: | Routin | 01/18/2010 | | Results for this | | MICROALBUMIN, URINE | e | | | procedure are in the | | | | | | results section. | + +--------+ + + + | EXTERNAL LAB: EGFR | Routin | 01/18/2010 | | Results for this | | | e | | | procedure are in the | | | | | | results section. | + +--------+ + + + | EXTERNAL LAB: | Routin | 01/18/2010 | | Results for this | | CREATININE | e | | | procedure are in the | | | | | | results section. | + +--------+ + + + | EXTERNAL LAB: | Routin | 01/18/2010 | | Results for this | | HEMOGLOBIN A1C | e | | | procedure are in the | | | | | | results section. | + +--------+ + + + | COMPREHENSIVE | Routin | 01/18/2010 | | Results for this | | METABOLIC PANEL | e | | | procedure are in the | | | | | | results section. | + +--------+ + + + documented in this encounter Results Comprehensive Metabolic Panel (08/12/2013) + +---------+ + + + | Component | Value | Ref Range | Performed | Pathologist | | | | | At | Signature | + +---------+ + + + | Na | 141 | mmol/L | [facility] | [facility] | | + +---------+ + + + | K | 5.4 | mmol/L | [facility] | [facility] | | | | | | [facility] | | + +---------+ + + + | Cl | 108 | mmol/L | [facility] | | [facility] | | [facility] | | | | [facility] | | | | | | [facility] | | + +---------+ + + + | CO2 | 23 | mmol/L | [facility] | | [facility] | [facility] | | | [facility] | | | | | | [facility] | | + +---------+ + + + | Glucose | 115 | mg/dL | [facility] | | | [facility] | [facility] | | | | [facility] | | | | | | [facility] | | + +---------+ + + + | BUN | 51 | mg/dL | [facility] | | | [facility] | [facility] | | | [facility] | | | | | | [facility] | | + +---------+ + + + | Calcium | 9.5 | mg/dL | [facility] | | [facility] | [facility] | | [facility] | | | | | | [facility]ORY | | + +---------+ + + + | Alkaline | 68 | 35 - 115 U/L | [facility] | | | Phosphatase | | | [facility] | | | | | | [facility] | | | | | [facility] - | | | | | | [facility]ORY | | + +---------+ + + + | Bilirubin | 0.6 | 0.1 - 1.5 mg/dL | [facility] | | | Total | | | [facility] | | | | | | [facility] | | | | [facility] - | | | | | | [facility]ORY | | + +---------+ + + + | Albumin | 4.9 (A) | 3.3 - 4.8 g/dL | [facility] | [facility] | | | [facility] | | | | | [facility] - | | | | | | [facility]ORY | | + +---------+ + + + + + | Specimen | + + | Blood specimen | | (specimen) | + + + + + + + | Performing | Address | City/State/Zipcode | Phone Number | | Organization | | | | + + + + + | [facility] | [address] | [place] | [phone] | | [facility] | | [address] | | | - LABORATORY | | | | + + + + + | [facility] | [address] | [place], [place] | | | [facility] | | [address] | | | - LABORATORY | | | | + + + + + External Lab: ORION (08/12/2013) + +-------+ + + + | Component | Value | Ref Range | Performed | Pathologist | | | | | At | Signature | + +-------+ + + + | AST, | 12 | 0 - 40 | EXTERNAL | | | External | | | LAB | | + +-------+ + + + + + | Specimen | + + | Blood specimen | | (specimen) | + + + + | Resulting Agency Comment | + + | [facility] | + + + +---------+ + + | Performing | Address | City/State/Zipcode | Phone Number | | Organization | | | | + +---------+ + + | EXTERNAL LAB | | | | + +---------+ + + External Lab: ALT (08/12/2013) + +-------+ + + + | Component | Value | Ref Range | Performed | Pathologist | | | | | At | Signature | + +-------+ + + + | ALT, | 12 | 0 - 46 | EXTERNAL | | | External | | | LAB | | + +-------+ + + + + + | Specimen | + + | Blood specimen | | (specimen) | + + + + | Resulting Agency Comment | + + | [facility] | + + + +---------+ + + | Performing | Address | City/State/Zipcode | Phone Number | | Organization | | | | + +---------+ + + | EXTERNAL LAB | | | | + +---------+ + + External Lab: Microalbumin/Creatinine Ratio, Urine (08/12/2013) + + + + + + | Component | Value | Ref Range | Performed | Pathologist | | | | | At | Signature | + + + + + + | Microalbumi | 55.8 (A) | 0 - 30 | EXTERNAL | | | n/Creatinin | | | LAB | | | e Ratio, | | | | | | External | | | | | + + + + + + + + | Specimen | + + | Blood specimen | | (specimen) | + + + + | Resulting Agency Comment | + + | [facility] | + + + +---------+ + + | Performing | Address | City/State/Zipcode | Phone Number | | Organization | | | | + +---------+ + + | EXTERNAL LAB | | | | + +---------+ + + External Lab: Microalbumin, Urine (08/12/2013) + +---------+ + + + | Component | Value | Ref Range | Performed | Pathologist | | | | | At | Signature | + +---------+ + + + | Microalbumi | 2.4 (A) | 0 - 2 | EXTERNAL | | | n, Urine, | | | LAB | | | External | | | | | + +---------+ + + + + + | Specimen | + + | Blood specimen | | (specimen) | + + + + | Resulting Agency Comment | + + | [facility] | + + + +---------+ + + | Performing | Address | City/State/Zipcode | Phone Number | | Organization | | | | + +---------+ + + | EXTERNAL LAB | | | | + +---------+ + + External Lab: eGFR (08/12/2013) + +-------+ + + + | Component | Value | Ref Range | Performed | Pathologist | | | | | At | Signature | + +-------+ + + + | eGFR, | 29 | | EXTERNAL | | | External | | | LAB | | + +-------+ + + + | eGFR, | | | EXTERNAL | | | | | | LAB | | | [place]azi, | | | | | | External | | | | | + +-------+ + + + + + | Specimen | + + | Blood specimen | | (specimen) | + + + + | Resulting Agency Comment | + + | [facility] | + + + +---------+ + + | Performing | Address | City/State/Zipcode | Phone Number | | Organization | | | | + +---------+ + + | EXTERNAL LAB | | | | + +---------+ + + External Lab: Creatinine (08/12/2013) + + + + + + | Component | Value | Ref Range | Performed | Pathologist | | | | | At | Signature | + + + + + + | Creatinine, | 2.27 (A) | 0.5 - 1.5 | EXTERNAL | | | External | | | LAB | | + + + + + + + + | Specimen | + + | Blood specimen | | (specimen) | + + + + | Resulting Agency Comment | + + | [facility] | + + + +---------+ + + | Performing | Address | City/State/Zipcode | Phone Number | | Organization | | | | + +---------+ + + | EXTERNAL LAB | | | | + +---------+ + + External Lab: Hemoglobin A1c (08/12/2013) + +-------+ + + + | Component | Value | Ref Range | Performed | Pathologist | | | | | At | Signature | + +-------+ + + + | Hemoglobin | 6.1 | | EXTERNAL | | | A1c, | | | LAB | | | external | | | | | + +-------+ + + + + + | Specimen | + + | Blood specimen | | (specimen) | + + + + | Resulting Agency Comment | + + | [facility] | + + + +---------+ + + | Performing | Address | City/State/Zipcode | Phone Number | | Organization | | | | + +---------+ + + | EXTERNAL LAB | | | | + +---------+ + + Comprehensive Metabolic Panel (03/05/2013) + +-------+ + + + | Component | Value | Ref Range | Performed | Pathologist | | | | | At | Signature | + +-------+ + + + | Na | 142 | mmol/L | [facility] | | | | | | [facility] | | | | [facility] - | | | | | | LAB[facility]ATORY | | + +-------+ + + + | K | 4.4 | mmol/L | [facility] | | [facility] | | | [facility] | | | | | [facility] - | | | | | | LAB[facility]ATORY | | + +-------+ + + + | Cl | 109 | mmol/L | [facility] | | | | [facility] | | | | | | [facility] | | | | | | [facility] - | | | | | | LAB[facility]ATORY | | + +-------+ + + + | CO2 | 22 | mmol/L | [facility] | | | | | | [facility] | | | | | | [facility] - | | | | | | LAB[facility]ATORY | | + +-------+ + + + | Glucose | 139 | mg/dL | [facility] | | | | [facility] | | | | | | [facility] | | | | | | [facility] - | | | | | | LAB[facility]ATORY | | + +-------+ + + + | BUN | 48 | mg/dL | [facility] | | | | | [facility] | | | | | | [facility] | | | | | | [facility] - | | | | | | LAB[facility]ATORY | | + +-------+ + + + | Calcium | 9.5 | mg/dL | [facility] | | | | | | [facility] | | | | | [facility] - | | | | | | LAB[facility]ATORY | | + +-------+ + + + | Alkaline | 65 | 35 - 115 U/L | [facility] | | | Phosphatase | | | [facility] | | | | | | [facility] | | | | | | [facility] - | | | | | | LAB[facility]ATORY | | + +-------+ + + + | Bilirubin | 0.4 | 0.1 - 1.5 mg/dL | [facility] | | | Total | | | [facility] | | | | | | [facility] | | | | | | [facility] - | | | | | | LAB[facility]ATORY | | + +-------+ + + + | Albumin | 4.8 | 3.3 - 4.8 g/dL | [facility] | | | | | [facility] | | | | | | [facility] | | | | | | [facility] - | | | | | | LAB[facility]ATORY | | + +-------+ + + + | MCV | 90.2 | 80.0 - 100.0 fL | [facility] | [facility] | | [facility] | | [facility] | | | [facility] | | | | | | [facility] - | | | | | | LAB[facility]ATORY | | + +-------+ + + + + + | Specimen | + + | Blood specimen | | (specimen) | + + + + + + + | Performing | Address | City/State/Zipcode | Phone Number | | Organization | | | | + + + + + | [facility] | [address] | [place] | [phone] | | [facility] | | [id number] | | | - LABORATORY | | | | + + + + + | [facility] | [address] | [place], [place] | | | [facility] | | [id number], [facility] | | | - LABORATORY | | | | + + + + + External Lab: CBC (03/05/2013) + + + + + + | Component | Value | Ref Range | Performed | Pathologist | | | | | At | Signature | + + + + + + | WBC, | 5.6 | 4.5 - 11 | EXTERNAL | | | External | | | LAB | | + + + + + + | HGB, | 12.6 (A) | 13.5 - 18 | EXTERNAL | | | External | | | LAB | | + + + + + + | HCT, | 37.1 (A) | 41 - 50 | EXTERNAL | | | External | | | LAB | | + + + + + + | PLT, | 208 | 140 - 440 | EXTERNAL | | | External | | | LAB | | + + + + + + + + | Resulting Agency Comment | + + | [facility] | + + + +---------+ + + | Performing | Address | City/State/Zipcode | Phone Number | | Organization | | | | + +---------+ + + | EXTERNAL LAB | | | | + +---------+ + + External Lab: PSA, Screen (03/05/2013) + +-------+ + + + | Component | Value | Ref Range | Performed | Pathologist | | | | | At | Signature | + +-------+ + + + | PSA, | 1.12 | 0 - 4 | EXTERNAL | | | External | | | LAB | | + +-------+ + + + + + | Specimen | + + | Blood specimen | | (specimen) | + + + + | Resulting Agency Comment | + + | [facility] | + + + +---------+ + + | Performing | Address | City/State/Zipcode | Phone Number | | Organization | | | | + +---------+ + + | EXTERNAL LAB | | | | + +---------+ + + External Lab: AST (03/05/2013) + +-------+ + + + | Component | Value | Ref Range | Performed | Pathologist | | | | | At | Signature | + +-------+ + + + | AST, | 11 | 0 - 40 | EXTERNAL | | | External | | | LAB | | + +-------+ + + + + + | Specimen | + + | Blood specimen | | (specimen) | + + + + | Resulting Agency Comment | + + | [facility] | + + + +---------+ + + | Performing | Address | City/State/Zipcode | Phone Number | | Organization | | | | + +---------+ + + | EXTERNAL LAB | | | | + +---------+ + + External Lab: ALT (03/05/2013) + +-------+ + + + | Component | Value | Ref Range | Performed | Pathologist | | | | | At | Signature | + +-------+ + + + | ALT, | 12 | 0 - 46 | EXTERNAL | | | External | | | LAB | | + +-------+ + + + + + | Specimen | + + | Blood specimen | | (specimen) | + + + + | Resulting Agency Comment | + + | [facility] | + + + +---------+ + + | Performing | Address | City/State/Zipcode | Phone Number | | Organization | | | | + +---------+ + + | EXTERNAL LAB | | | | + +---------+ + + External Lab: Triglycerides (03/05/2013) + +---------+ + + + | Component | Value | Ref Range | Performed | Pathologist | | | | | At | Signature | + +---------+ + + + | Triglycerid | 188 (A) | 30 - 150 | EXTERNAL | | | es, | | | LAB | | | External | | | | | + +---------+ + + + + + | Specimen | + + | Blood specimen | | (specimen) | + + + + | Resulting Agency Comment | + + | [facility] | + + + +---------+ + + | Performing | Address | City/State/Zipcode | Phone Number | | Organization | | | | + +---------+ + + | EXTERNAL LAB | | | | + +---------+ + + External Lab: Cholesterol, HDL (03/05/2013) + + + + + + | Component | Value | Ref Range | Performed | Pathologist | | | | | At | Signature | + + + + + + | HDL | 23.5 (A) | 40 | EXTERNAL | | | Cholesterol | | | LAB | | | , External | | | | | + + + + + + + + | Specimen | + + | Blood specimen | | (specimen) | + + + + | Resulting Agency Comment | + + | [facility] | + + + +---------+ + + | Performing | Address | City/State/Zipcode | Phone Number | | Organization | | | | + +---------+ + + | EXTERNAL LAB | | | | + +---------+ + + External Lab: Cholesterol, Total (03/05/2013) + +-------+ + + + | Component | Value | Ref Range | Performed | Pathologist | | | | | At | Signature | + +-------+ + + + | Cholesterol | 135 | 200 | EXTERNAL | | | , Total, | | | LAB | | | External | | | | | + +-------+ + + + + + | Specimen | + + | Blood specimen | | (specimen) | + + + + | Resulting Agency Comment | + + | [facility] | + + + +---------+ + + | Performing | Address | City/State/Zipcode | Phone Number | | Organization | | | | + +---------+ + + | EXTERNAL LAB | | | | + +---------+ + + External Lab: Cholesterol, LDL (03/05/2013) + +-------+ + + + | Component | Value | Ref Range | Performed | Pathologist | | | | | At | Signature | + +-------+ + + + | LDL | 74 | 100 | EXTERNAL | | | Cholesterol | | | LAB | | | , Direct, | | | | | | External | | | | | + +-------+ + + + + + | Specimen | + + | Blood specimen | | (specimen) | + + + + | Resulting Agency Comment | + + | [facility] | + + + +---------+ + + | Performing | Address | City/State/Zipcode | Phone Number | | Organization | | | | + +---------+ + + | EXTERNAL LAB | | | | + +---------+ + + External Lab: Microalbumin/Creatinine Ratio, Urine (03/05/2013) + + + + + + | Component | Value | Ref Range | Performed | Pathologist | | | | | At | Signature | + + + + + + | Microalbumi | 54.3 (A) | 0 - 30 | EXTERNAL | | | n/Creatinin | | | LAB | | | e Ratio, | | | | | | External | | | | | + + + + + + + + | Specimen | + + | Blood specimen | | (specimen) | + + + + | Resulting Agency Comment | + + | [facility] | + + + +---------+ + + | Performing | Address | City/State/Zipcode | Phone Number | | Organization | | | | + +---------+ + + | EXTERNAL LAB | | | | + +---------+ + + External Lab: Microalbumin, Urine (03/05/2013) + +---------+ + + + | Component | Value | Ref Range | Performed | Pathologist | | | | | At | Signature | + +---------+ + + + | Microalbumi | 6.3 (A) | 0 - 2 | EXTERNAL | | | n, Urine, | | | LAB | | | External | | | | | + +---------+ + + + + + | Specimen | + + | Blood specimen | | (specimen) | + + + + | Resulting Agency Comment | + + | [facility] | + + + +---------+ + + | Performing | Address | City/State/Zipcode | Phone Number | | Organization | | | | + +---------+ + + | EXTERNAL LAB | | | | + +---------+ + + External Lab: eGFR (03/05/2013) + +-------+ + + + | Component | Value | Ref Range | Performed | Pathologist | | | | | At | Signature | + +-------+ + + + | eGFR, | 31 | | EXTERNAL | | | External | | | LAB | | + +-------+ + + + | eGFR, | | | EXTERNAL | | | | | | LAB | | | Swazi, | | | | | | External | | | | | + +-------+ + + + + + | Specimen | + + | Blood specimen | | (specimen) | + + + + | Resulting Agency Comment | + + | [facility] | + + + +---------+ + + | Performing | Address | City/State/Zipcode | Phone Number | | Organization | | | | + +---------+ + + | EXTERNAL LAB | | | | + +---------+ + + External Lab: Creatinine (03/05/2013) + + + + + + | Component | Value | Ref Range | Performed | Pathologist | | | | | At | Signature | + + + + + + | Creatinine, | 2.15 (A) | 0.5 - 1.5 | EXTERNAL | | | External | | | LAB | | + + + + + + + + | Specimen | + + | Blood specimen | | (specimen) | + + + + | Resulting Agency Comment | + + | [facility] | + + + +---------+ + + | Performing | Address | City/State/Zipcode | Phone Number | | Organization | | | | + +---------+ + + | EXTERNAL LAB | | | | + +---------+ + + External Lab: Hemoglobin A1c (03/05/2013) + +-------+ + + + | Component | Value | Ref Range | Performed | Pathologist | | | | | At | Signature | + +-------+ + + + | Hemoglobin | 6.6 | | EXTERNAL | | | A1c, | | | LAB | | | external | | | | | + +-------+ + + + + + | Specimen | + + | Blood specimen | | (specimen) | + + + + | Resulting Agency Comment | + + | [facility] | + + + +---------+ + + | Performing | Address | City/State/Zipcode | Phone Number | | Organization | | | | + +---------+ + + | EXTERNAL LAB | | | | + +---------+ + + Comprehensive Metabolic Panel (10/15/2012) + +-------+ + + + | Component | Value | Ref Range | Performed | Pathologist | | | | | At | Signature | + +-------+ + + + | Uric Acid | 9.4 | mg/dL | [facility] | [facility] | [facility] | [facility] | | | | | | [facility] | | + +-------+ + + + | Na | 142 | mmol/L | [facility] | | | | | [facility] | | | | [facility] - | | | | | | [facility]ORY | | + +-------+ + + + | K | 5.1 | mmol/L | [facility] | | | | | [facility] | | | | [facility] - | | | | | | [facility]ORY | | + +-------+ + + + | Cl | 107 | mmol/L | [facility] | | | | | | [facility] | | | | [facility] - | | | | | | [facility]ORY | | + +-------+ + + + | CO2 | 25 | mmol/L | [facility] | | | | | [facility] | | | | | [facility] - | | | | | | LAB[facility]ATORY | | + +-------+ + + + | Glucose | 156 | mg/dL | [facility] | | | | | | [facility] | | | | | [facility] - | | | | | | LAB[facility]ATORY | | + +-------+ + + + | BUN | 43 | mg/dL | [facility] | | | | | [facility] | | | | [facility] - | | | | | | LAB[facility]ATORY | | + +-------+ + + + | Calcium | 9.3 | mg/dL | [facility] | | | | | [facility] | | | | | [facility] - | | | | | | LAB[facility]ATORY | | + +-------+ + + + | Alkaline | 67 | 35 - 115 U/L | [facility] | | | Phosphatase | | | [facility] | | | | | | [facility] | | | | | | [facility] - | | | | | | LAB[facility]ATORY | | + +-------+ + + + | Bilirubin | 0.5 | 0.1 - 1.5 mg/dL | [facility] | | | Total | | | [facility] | | | | | | [facility] | | | | | [facility] - | | | | | | LAB[facility]ATORY | | + +-------+ + + + | Albumin | 4.8 | 3.3 - 4.8 g/dL | [facility] | | | | | [facility] | | | | | [facility] - | | | | | | LAB[facility]ATORY | | + +-------+ + + + + + | Specimen | + + | Blood specimen | | (specimen) | + + + + + + + | Performing | Address | City/State/Zipcode | Phone Number | | Organization | | | | + + + + + | [facility] | [address] | [place], [place] | [phone] | | [facility] | | [address] | | | - LABORATORY | | | | + + + + + | [facility] | [address] | [place], [place] | | | [facility] | | [address], [facility] | | | - LABORATORY | | | | + + + + + External Lab: ORION (10/15/2012) + +-------+ + + + | Component | Value | Ref Range | Performed | Pathologist | | | | | At | Signature | + +-------+ + + + | AST, | 11 | 0 - 40 | EXTERNAL | | | External | | | LAB | | + +-------+ + + + + + | Specimen | + + | Blood specimen | | (specimen) | + + + + | Resulting Agency Comment | + + | [facility] | + + + +---------+ + + | Performing | Address | City/State/Zipcode | Phone Number | | Organization | | | | + +---------+ + + | EXTERNAL LAB | | | | + +---------+ + + External Lab: ALT (10/15/2012) + +-------+ + + + | Component | Value | Ref Range | Performed | Pathologist | | | | | At | Signature | + +-------+ + + + | ALT, | 13 | 0 - 46 | EXTERNAL | | | External | | | LAB | | + +-------+ + + + + + | Specimen | + + | Blood specimen | | (specimen) | + + + + | Resulting Agency Comment | + + | [facility] | + + + +---------+ + + | Performing | Address | City/State/Zipcode | Phone Number | | Organization | | | | + +---------+ + + | EXTERNAL LAB | | | | + +---------+ + + External Lab: Triglycerides (10/15/2012) + +---------+ + + + | Component | Value | Ref Range | Performed | Pathologist | | | | | At | Signature | + +---------+ + + + | Triglycerid | 246 (A) | 30 - 150 | EXTERNAL | | | es, | | | LAB | | | External | | | | | + +---------+ + + + + + | Specimen | + + | Blood specimen | | (specimen) | + + + + | Resulting Agency Comment | + + | [facility] | + + + +---------+ + + | Performing | Address | City/State/Zipcode | Phone Number | | Organization | | | | + +---------+ + + | EXTERNAL LAB | | | | + +---------+ + + External Lab: Cholesterol, HDL (10/15/2012) + + + + + + | Component | Value | Ref Range | Performed | Pathologist | | | | | At | Signature | + + + + + + | HDL | 29.2 (A) | 40 | EXTERNAL | | | Cholesterol | | | LAB | | | , External | | | | | + + + + + + + + | Specimen | + + | Blood specimen | | (specimen) | + + + + | Resulting Agency Comment | + + | [facility] | + + + +---------+ + + | Performing | Address | City/State/Zipcode | Phone Number | | Organization | | | | + +---------+ + + | EXTERNAL LAB | | | | + +---------+ + + External Lab: Cholesterol, Total (10/15/2012) + +-------+ + + + | Component | Value | Ref Range | Performed | Pathologist | | | | | At | Signature | + +-------+ + + + | Cholesterol | 154 | 200 | EXTERNAL | | | , Total, | | | LAB | | | External | | | | | + +-------+ + + + + + | Specimen | + + | Blood specimen | | (specimen) | + + + + | Resulting Agency Comment | + + | [facility] | + + + +---------+ + + | Performing | Address | City/State/Zipcode | Phone Number | | Organization | | | | + +---------+ + + | EXTERNAL LAB | | | | + +---------+ + + External Lab: Cholesterol, LDL (10/15/2012) + +-------+ + + + | Component | Value | Ref Range | Performed | Pathologist | | | | | At | Signature | + +-------+ + + + | LDL | 76 | 100 | EXTERNAL | | | Cholesterol | | | LAB | | | , Direct, | | | | | | External | | | | | + +-------+ + + + + + | Specimen | + + | Blood specimen | | (specimen) | + + + + | Resulting Agency Comment | + + | [facility] | + + + +---------+ + + | Performing | Address | City/State/Zipcode | Phone Number | | Organization | | | | + +---------+ + + | EXTERNAL LAB | | | | + +---------+ + + External Lab: Microalbumin/Creatinine Ratio, Urine (10/15/2012) + + + + + + | Component | Value | Ref Range | Performed | Pathologist | | | | | At | Signature | + + + + + + | Microalbumi | 75.9 (A) | 0 - 30 | EXTERNAL | | | n/Creatinin | | | LAB | | | e Ratio, | | | | | | External | | | | | + + + + + + + + | Specimen | + + | Blood specimen | | (specimen) | + + + + | Resulting Agency Comment | + + | [facility] | + + + +---------+ + + | Performing | Address | City/State/Zipcode | Phone Number | | Organization | | | | + +---------+ + + | EXTERNAL LAB | | | | + +---------+ + + External Lab: Microalbumin, Urine (10/15/2012) + +---------+ + + + | Component | Value | Ref Range | Performed | Pathologist | | | | | At | Signature | + +---------+ + + + | Microalbumi | 4.4 (A) | 0 - 2 | EXTERNAL | | | n, Urine, | | | LAB | | | External | | | | | + +---------+ + + + + + | Specimen | + + | Blood specimen | | (specimen) | + + + + | Resulting Agency Comment | + + | [facility] | + + + +---------+ + + | Performing | Address | City/State/Zipcode | Phone Number | | Organization | | | | + +---------+ + + | EXTERNAL LAB | | | | + +---------+ + + External Lab: eGFR (10/15/2012) + +-------+ + + + | Component | Value | Ref Range | Performed | Pathologist | | | | | At | Signature | + +-------+ + + + | eGFR, | 36 | | EXTERNAL | | | External | | | LAB | | + +-------+ + + + | eGFR, | | | EXTERNAL | | | | | | LAB | | | Swazi, | | | | | | External | | | | | + +-------+ + + + + + | Specimen | + + | Blood specimen | | (specimen) | + + + + | Resulting Agency Comment | + + | [facility] | + + + +---------+ + + | Performing | Address | City/State/Zipcode | Phone Number | | Organization | | | | + +---------+ + + | EXTERNAL LAB | | | | + +---------+ + + External Lab: Creatinine (10/15/2012) + + + + + + | Component | Value | Ref Range | Performed | Pathologist | | | | | At | Signature | + + + + + + | Creatinine, | 1.86 (A) | 0.5 - 1.5 | EXTERNAL | | | External | | | LAB | | + + + + + + + + | Specimen | + + | Blood specimen | | (specimen) | + + + + | Resulting Agency Comment | + + | [facility] | + + + +---------+ + + | Performing | Address | City/State/Zipcode | Phone Number | | Organization | | | | + +---------+ + + | EXTERNAL LAB | | | | + +---------+ + + External Lab: Hemoglobin A1c (10/15/2012) + +-------+ + + + | Component | Value | Ref Range | Performed | Pathologist | | | | | At | Signature | + +-------+ + + + | Hemoglobin | 7.2 | | EXTERNAL | | | A1c, | | | LAB | | | external | | | | | + +-------+ + + + + + | Specimen | + + | Blood specimen | | (specimen) | + + + + | Resulting Agency Comment | + + | [facility] | + + + +---------+ + + | Performing | Address | City/State/Zipcode | Phone Number | | Organization | | | | + +---------+ + + | EXTERNAL LAB | | | | + +---------+ + + Comprehensive Metabolic Panel (09/26/2011) + +-------+ + + + | Component | Value | Ref Range | Performed | Pathologist | | | | | At | Signature | + +-------+ + + + | Uric Acid | 10.1 | mg/dL | [facility] | | | | | | [facility] | | | | | | [facility] - | | | | | | LABORATORY | | + +-------+ + + + | Phosphorus | 2.9 | 2.1 - 3.9 mg/dL | [facility] | | | | | [facility] | | | | | | [facility] | | | | | | [facility] - | | | | | | LABORATORY | | + +-------+ + + + | Na | 145 | mmol/L | [facility] | | | [facility] | [facility] | | | | | | [facility] | | | | | | [facility] - | | | | | | LABORATORY | | + +-------+ + + + | K | 4.8 | mmol/L | [facility] | | | | | [facility] | | | | | | [facility] | | | | | | [facility] - | | | | | | LABORATORY | | + +-------+ + + + | Cl | 105 | mmol/L | [facility] | | | | | [facility] | | | | | | [facility] | | | | | | [facility] - | | | | | | LABORATORY | | + +-------+ + + + | CO2 | 30 | mmol/L | [facility] | | | | | | [facility] | | | | | | [facility] | | | | | | [facility] - | | | | | | LABORATORY | | + +-------+ + + + | Glucose | 106 | mg/dL | [facility] | | | | | | [facility] | | | | | | [facility] | | | | | | [facility] - | | | | | | LABORATORY | | + +-------+ + + + | BUN | 26 | mg/dL | [facility] | | | | | | [facility] | | | | | | [facility] | | | | | | [facility] - | | | | | | LABORATORY | | + +-------+ + + + | Calcium | 9.7 | mg/dL | [facility] | | | | | [facility] | | | | | | [facility] | | | | | | [facility] - | | | | | | LABORATORY | | + +-------+ + + + | Alkaline | 59 | 35 - 115 U/L | [facility] | | | Phosphatase | | | [facility] | | | | | | [facility] | | | | | | CENTER - | | | | | | LABORATORY | | + +-------+ + + + | Bilirubin | 0.4 | 0.1 - 1.5 mg/dL | [facility] | | | Total | | | [facility] | | | | | | [facility] | | | | | | [facility] - | | | | | | LABORATORY | | + +-------+ + + + | Albumin | 4.8 | 3.3 - 4.8 g/dL | [facility] | | | | | | [facility] | | | | | | [facility] | | | | | | [facility] - | | | | | | LABORATORY | | + +-------+ + + + | MCV | 91.5 | 80.0 - 100.0 fL | [facility] | | | | | | [facility] | | | | | | [facility] | | | | | | [facility] - | | | | | | LABORATORY | | + +-------+ + + + + + | Specimen | + + | Blood specimen | | (specimen) | + + + + + + + | Performing | Address | City/State/Zipcode | Phone Number | | Organization | | | | + + + + + | [facility] | [address] | [place] | [phone] | | [facility] | | [address] | | | - LABORATORY | | | | + + + + + | [facility] | | | | | [facility] | | | | | - LABORATORY | | | | + + + + + External Lab: CBC (09/26/2011) + + + + + + | Component | Value | Ref Range | Performed | Pathologist | | | | | At | Signature | + + + + + + | WBC, | 6.1 | 4.5 - 11 | EXTERNAL | | | External | | | LAB | | + + + + + + | HGB, | 13.4 | 1.5 - 18 | EXTERNAL | | | External | | | LAB | | + + + + + + | HCT, | 39.2 (A) | 41 - 50 | EXTERNAL | | | External | | | LAB | | + + + + + + | PLT, | 207 | 140 - 440 | EXTERNAL | | | External | | | LAB | | + + + + + + + + | Resulting Agency Comment | + + | [facility] | + + + +---------+ + + | Performing | Address | City/State/Zipcode | Phone Number | | Organization | | | | + +---------+ + + | EXTERNAL LAB | | | | + +---------+ + + External Lab: AST (09/26/2011) + +-------+ + + + | Component | Value | Ref Range | Performed | Pathologist | | | | | At | Signature | + +-------+ + + + | AST, | 14 | 0 - 40 | EXTERNAL | | | External | | | LAB | | + +-------+ + + + + + | Specimen | + + | Blood specimen | | (specimen) | + + + + | Resulting Agency Comment | + + | [facility] | + + + +---------+ + + | Performing | Address | City/State/Zipcode | Phone Number | | Organization | | | | + +---------+ + + | EXTERNAL LAB | | | | + +---------+ + + External Lab: ALT (09/26/2011) + +-------+ + + + | Component | Value | Ref Range | Performed | Pathologist | | | | | At | Signature | + +-------+ + + + | ALT, | 17 | 0 - 46 | EXTERNAL | | | External | | | LAB | | + +-------+ + + + + + | Specimen | + + | Blood specimen | | (specimen) | + + + + | Resulting Agency Comment | + + | [facility] | + + + +---------+ + + | Performing | Address | City/State/Zipcode | Phone Number | | Organization | | | | + +---------+ + + | EXTERNAL LAB | | | | + +---------+ + + External Lab: Triglycerides (09/26/2011) + +-------+ + + + | Component | Value | Ref Range | Performed | Pathologist | | | | | At | Signature | + +-------+ + + + | Triglycerid | 136 | 30 - 150 | EXTERNAL | | | es, | | | LAB | | | External | | | | | + +-------+ + + + + + | Specimen | + + | Blood specimen | | (specimen) | + + + + | Resulting Agency Comment | + + | [facility] | + + + +---------+ + + | Performing | Address | City/State/Zipcode | Phone Number | | Organization | | | | + +---------+ + + | EXTERNAL LAB | | | | + +---------+ + + External Lab: Cholesterol, HDL (09/26/2011) + +--------+ + + + | Component | Value | Ref Range | Performed | Pathologist | | | | | At | Signature | + +--------+ + + + | HDL | 34 (A) | 40 | EXTERNAL | | | Cholesterol | | | LAB | | | , External | | | | | + +--------+ + + + + + | Specimen | + + | Blood specimen | | (specimen) | + + + + | Resulting Agency Comment | + + | [facility] | + + + +---------+ + + | Performing | Address | City/State/Zipcode | Phone Number | | Organization | | | | + +---------+ + + | EXTERNAL LAB | | | | + +---------+ + + External Lab: Cholesterol, Total (09/26/2011) + +-------+ + + + | Component | Value | Ref Range | Performed | Pathologist | | | | | At | Signature | + +-------+ + + + | Cholesterol | 134 | 200 | EXTERNAL | | | , Total, | | | LAB | | | External | | | | | + +-------+ + + + + + | Specimen | + + | Blood specimen | | (specimen) | + + + + | Resulting Agency Comment | + + | [facility] | + + + +---------+ + + | Performing | Address | City/State/Zipcode | Phone Number | | Organization | | | | + +---------+ + + | EXTERNAL LAB | | | | + +---------+ + + External Lab: Cholesterol, LDL (09/26/2011) + +-------+ + + + | Component | Value | Ref Range | Performed | Pathologist | | | | | At | Signature | + +-------+ + + + | LDL | 73 | 100 | EXTERNAL | | | Cholesterol | | | LAB | | | , Direct, | | | | | | External | | | | | + +-------+ + + + + + | Specimen | + + | Blood specimen | | (specimen) | + + + + | Resulting Agency Comment | + + | [facility] | + + + +---------+ + + | Performing | Address | City/State/Zipcode | Phone Number | | Organization | | | | + +---------+ + + | EXTERNAL LAB | | | | + +---------+ + + External Lab: Microalbumin/Creatinine Ratio, Urine (09/26/2011) + + + + + + | Component | Value | Ref Range | Performed | Pathologist | | | | | At | Signature | + + + + + + | Microalbumi | 64.4 (A) | 0 - 30 | EXTERNAL | | | n/Creatinin | | | LAB | | | e Ratio, | | | | | | External | | | | | + + + + + + + + | Specimen | + + | Blood specimen | | (specimen) | + + + + | Resulting Agency Comment | + + | [facility] | + + + +---------+ + + | Performing | Address | City/State/Zipcode | Phone Number | | Organization | | | | + +---------+ + + | EXTERNAL LAB | | | | + +---------+ + + External Lab: Microalbumin, Urine (09/26/2011) + +---------+ + + + | Component | Value | Ref Range | Performed | Pathologist | | | | | At | Signature | + +---------+ + + + | Microalbumi | 6.5 (A) | 0 - 2 | EXTERNAL | | | n, Urine, | | | LAB | | | External | | | | | + +---------+ + + + + + | Specimen | + + | Blood specimen | | (specimen) | + + + + | Resulting Agency Comment | + + | [facility] | + + + +---------+ + + | Performing | Address | City/State/Zipcode | Phone Number | | Organization | | | | + +---------+ + + | EXTERNAL LAB | | | | + +---------+ + + External Lab: eGFR (09/26/2011) + +-------+ + + + | Component | Value | Ref Range | Performed | Pathologist | | | | | At | Signature | + +-------+ + + + | eGFR, | 48 | | EXTERNAL | | | External | | | LAB | | + +-------+ + + + | eGFR, | | | EXTERNAL | | | | | | LAB | | | Swazi, | | | | | | External | | | | | + +-------+ + + + + + | Specimen | + + | Blood specimen | | (specimen) | + + + + | Resulting Agency Comment | + + | [facility] | + + + +---------+ + + | Performing | Address | City/State/Zipcode | Phone Number | | Organization | | | | + +---------+ + + | EXTERNAL LAB | | | | + +---------+ + + External Lab: Creatinine (09/26/2011) + +-------+ + + + | Component | Value | Ref Range | Performed | Pathologist | | | | | At | Signature | + +-------+ + + + | Creatinine, | 1.45 | 0.5 - 1.5 | EXTERNAL | | | External | | | LAB | | + +-------+ + + + + + | Specimen | + + | Blood specimen | | (specimen) | + + + + | Resulting Agency Comment | + + | [facility] | + + + +---------+ + + | Performing | Address | City/State/Zipcode | Phone Number | | Organization | | | | + +---------+ + + | EXTERNAL LAB | | | | + +---------+ + + External Lab: Hemoglobin A1c (09/26/2011) + +-------+ + + + | Component | Value | Ref Range | Performed | Pathologist | | | | | At | Signature | + +-------+ + + + | Hemoglobin | 5.8 | | EXTERNAL | | | A1c, | | | LAB | | | external | | | | | + +-------+ + + + + + | Specimen | + + | Blood specimen | | (specimen) | + + + + | Resulting Agency Comment | + + | [facility] | + + + +---------+ + + | Performing | Address | City/State/Zipcode | Phone Number | | Organization | | | | + +---------+ + + | EXTERNAL LAB | | | | + +---------+ + + Comprehensive Metabolic Panel (02/21/2011) + +-------+ + + + | Component | Value | Ref Range | Performed | Pathologist | | | | | At | Signature | + +-------+ + + + | Na | 142 | mmol/L | [facility] | | | | | | [facility] | | | | | [facility] - | | | | | | LABORATORY | | + +-------+ + + + | K | 4.5 | mmol/L | [facility] | | | [facility] | | | | | | [facility] | | | | | | [facility] - | | | | | | LABORATORY | | + +-------+ + + + | Cl | 105 | mmol/L | [facility] | | | | | [facility] | | | | | | [facility] | | | | | | [facility] - | | | | | | LABORATORY | | + +-------+ + + + | CO2 | 27 | mmol/L | [facility] | | | | | [facility] | | | | | | [facility] | | | | | | [facility] - | | | | | | LABORATORY | | + +-------+ + + + | Glucose | 81 | mg/dL | [facility] | | | | | [facility] | | | | | | [facility] | | | | | | [facility] - | | | | | | LABORATORY | | + +-------+ + + + | BUN | 36 | mg/dL | [facility] | | | | | | [facility] | | | | | | [facility] | | | | | | [facility] - | | | | | | LABORATORY | | + +-------+ + + + | Calcium | 9.1 | mg/dL | [facility] | | | | [facility] | | | | | | [facility] | | | | | | [facility] - | | | | | | LABORATORY | | + +-------+ + + + | Alkaline | 63 | 35 - 115 U/L | [facility] | | | Phosphatase | | | [facility] | | | | | | [facility] | | | | | | [facility]ENTER - | | | | | | LABORATORY | | + +-------+ + + + | Bilirubin | 0.5 | 0.1 - 1.5 mg/dL | [facility] | | | Total | | | [facility] | | | | | | [facility] | | | | | | [facility]ENTER - | | | | | | LABORATORY | | + +-------+ + + + | Albumin | 4.4 | 3.3 - 4.8 g/dL | [facility] | | | | | | [facility] | | | | | | [facility] | | | | | | [facility] - | | | | | | LABORATORY | | + +-------+ + + + + + | Specimen | + + | Blood specimen | | (specimen) | + + + + + + + | Performing | Address | City/State/Zipcode | Phone Number | | Organization | | | | + + + + + | [facility] | [address] | [place] | [phone] | | [facility] | | [address] | | | - LABORATORY | | | | + + + + + | [facility] | | | | | [facility] | | | | | - LABORATORY | | | | + + + + + External Lab: AST (02/21/2011) + +-------+ + + + | Component | Value | Ref Range | Performed | Pathologist | | | | | At | Signature | + +-------+ + + + | AST, | 14 | 0 - 40 | EXTERNAL | | | External | | | LAB | | + +-------+ + + + + + | Specimen | + + | Blood specimen | | (specimen) | + + + + | Resulting Agency Comment | + + | [facility] | + + + +---------+ + + | Performing | Address | City/State/Zipcode | Phone Number | | Organization | | | | + +---------+ + + | EXTERNAL LAB | | | | + +---------+ + + External Lab: ALT (02/21/2011) + +-------+ + + + | Component | Value | Ref Range | Performed | Pathologist | | | | | At | Signature | + +-------+ + + + | ALT, | 14 | 0 - 46 | EXTERNAL | | | External | | | LAB | | + +-------+ + + + + + | Specimen | + + | Blood specimen | | (specimen) | + + + + | Resulting Agency Comment | + + | [facility] | + + + +---------+ + + | Performing | Address | City/State/Zipcode | Phone Number | | Organization | | | | + +---------+ + + | EXTERNAL LAB | | | | + +---------+ + + External Lab: Triglycerides (02/21/2011) + +-------+ + + + | Component | Value | Ref Range | Performed | Pathologist | | | | | At | Signature | + +-------+ + + + | Triglycerid | 149 | 30 - 150 | EXTERNAL | | | es, | | | LAB | | | External | | | | | + +-------+ + + + + + | Specimen | + + | Blood specimen | | (specimen) | + + + + | Resulting Agency Comment | + + | [facility] | + + + +---------+ + + | Performing | Address | City/State/Zipcode | Phone Number | | Organization | | | | + +---------+ + + | EXTERNAL LAB | | | | + +---------+ + + External Lab: Cholesterol, HDL (02/21/2011) + +--------+ + + + | Component | Value | Ref Range | Performed | Pathologist | | | | | At | Signature | + +--------+ + + + | HDL | 27 (A) | 40 | EXTERNAL | | | Cholesterol | | | LAB | | | , External | | | | | + +--------+ + + + + + | Specimen | + + | Blood specimen | | (specimen) | + + + + | Resulting Agency Comment | + + | [facility] | + + + +---------+ + + | Performing | Address | City/State/Zipcode | Phone Number | | Organization | | | | + +---------+ + + | EXTERNAL LAB | | | | + +---------+ + + External Lab: Cholesterol, Total (02/21/2011) + +-------+ + + + | Component | Value | Ref Range | Performed | Pathologist | | | | | At | Signature | + +-------+ + + + | Cholesterol | 120 | 200 | EXTERNAL | | | , Total, | | | LAB | | | External | | | | | + +-------+ + + + + + | Specimen | + + | Blood specimen | | (specimen) | + + + + | Resulting Agency Comment | + + | [facility] | + + + +---------+ + + | Performing | Address | City/State/Zipcode | Phone Number | | Organization | | | | + +---------+ + + | EXTERNAL LAB | | | | + +---------+ + + External Lab: Cholesterol, LDL (02/21/2011) + +-------+ + + + | Component | Value | Ref Range | Performed | Pathologist | | | | | At | Signature | + +-------+ + + + | LDL | 63 | 100 | EXTERNAL | | | Cholesterol | | | LAB | | | , Direct, | | | | | | External | | | | | + +-------+ + + + + + | Specimen | + + | Blood specimen | | (specimen) | + + + + | Resulting Agency Comment | + + | [facility] | + + + +---------+ + + | Performing | Address | City/State/Zipcode | Phone Number | | Organization | | | | + +---------+ + + | EXTERNAL LAB | | | | + +---------+ + + External Lab: Microalbumin/Creatinine Ratio, Urine (02/21/2011) + +--------+ + + + | Component | Value | Ref Range | Performed | Pathologist | | | | | At | Signature | + +--------+ + + + | Microalbumi | 58 (A) | 0 - 30 | EXTERNAL | | | n/Creatinin | | | LAB | | | e Ratio, | | | | | | External | | | | | + +--------+ + + + + + | Specimen | + + | Blood specimen | | (specimen) | + + + + | Resulting Agency Comment | + + | [facility] | + + + +---------+ + + | Performing | Address | City/State/Zipcode | Phone Number | | Organization | | | | + +---------+ + + | EXTERNAL LAB | | | | + +---------+ + + External Lab: Microalbumin, Urine (02/21/2011) + +---------+ + + + | Component | Value | Ref Range | Performed | Pathologist | | | | | At | Signature | + +---------+ + + + | Microalbumi | 4.0 (A) | 0 - 2 | EXTERNAL | | | n, Urine, | | | LAB | | | External | | | | | + +---------+ + + + + + | Specimen | + + | Blood specimen | | (specimen) | + + + + | Resulting Agency Comment | + + | [facility] | + + + +---------+ + + | Performing | Address | City/State/Zipcode | Phone Number | | Organization | | | | + +---------+ + + | EXTERNAL LAB | | | | + +---------+ + + External Lab: eGFR (02/21/2011) + +-------+ + + + | Component | Value | Ref Range | Performed | Pathologist | | | | | At | Signature | + +-------+ + + + | eGFR, | 45 | | EXTERNAL | | | External | | | LAB | | + +-------+ + + + | eGFR, | | | EXTERNAL | | | | | | LAB | | | [place], | | | | | | External | | | | | + +-------+ + + + + + | Specimen | + + | Blood specimen | | (specimen) | + + + + | Resulting Agency Comment | + + | [facility] | + + + +---------+ + + | Performing | Address | City/State/Zipcode | Phone Number | | Organization | | | | + +---------+ + + | EXTERNAL LAB | | | | + +---------+ + + External Lab: Creatinine (02/21/2011) + + + + + + | Component | Value | Ref Range | Performed | Pathologist | | | | | At | Signature | + + + + + + | Creatinine, | 1.56 (A) | 0.5 - 1.5 | EXTERNAL | | | External | | | LAB | | + + + + + + + + | Specimen | + + | Blood specimen | | (specimen) | + + + + | Resulting Agency Comment | + + | [facility] | + + + +---------+ + + | Performing | Address | City/State/Zipcode | Phone Number | | Organization | | | | + +---------+ + + | EXTERNAL LAB | | | | + +---------+ + + External Lab: Hemoglobin A1c (02/21/2011) + +-------+ + + + | Component | Value | Ref Range | Performed | Pathologist | | | | | At | Signature | + +-------+ + + + | Hemoglobin | 6.1 | | EXTERNAL | | | A1c, | | | LAB | | | external | | | | | + +-------+ + + + + + | Specimen | + + | Blood specimen | | (specimen) | + + + + | Resulting Agency Comment | + + | [facility] | + + + +---------+ + + | Performing | Address | City/State/Zipcode | Phone Number | | Organization | | | | + +---------+ + + | EXTERNAL LAB | | | | + +---------+ + + Comprehensive Metabolic Panel (01/18/2010) + +-------+ + + + | Component | Value | Ref Range | Performed | Pathologist | | | | | At | Signature | + +-------+ + + + | Na | 141 | mmol/L | [facility] | | | | | [facility] | [facility] | | [facility] | | | | | | [facility] | | + +-------+ + + + | K | 5.5 | mmol/L | [facility] | | [facility] | | | [facility] | | | | [facility] - | | | | | | [facility]ORY | | + +-------+ + + + | Cl | 107 | mmol/L | [facility] | [facility] | | | | | | [facility] | | | | | [facility] - | | | | | | [facility]ORY | | + +-------+ + + + | CO2 | 26 | mmol/L | [facility] | | | | | | [facility] | | | | | [facility] - | | | | | | [facility]ATORY | | + +-------+ + + + | Glucose | 153 | mg/dL | [facility] | | | | | | [facility] | | | | | [facility] - | | | | | | [facility]ATORY | | + +-------+ + + + | BUN | 23 | mg/dL | [facility] | | | | | | [facility] | | | | | [facility] - | | | | | | LAB[facility]ATORY | | + +-------+ + + + | Calcium | 9.3 | mg/dL | [facility] | | | [facility] | [facility] | | | [facility] - | | | | | | [facility]ORY | | + +-------+ + + + | Alkaline | 62 | 35 - 115 U/L | [facility] | | | Phosphatase | | | [facility] | | | | | | [facility] | | | | | | [facility] - | | | | | | LAB[facility]ATORY | | + +-------+ + + + | Bilirubin | 0.8 | 0.1 - 1.5 mg/dL | [facility] | | | Total | | | [facility] | | | | | | [facility] | | | | | [facility] - | | | | | | LAB[facility]ATORY | | + +-------+ + + + | Albumin | 4.4 | 3.3 - 4.8 g/dL | [facility] | [facility] | | | [facility] | | | | | | [facility] | | | | | [facility] - | | | | | | LAB[facility]ATORY | | + +-------+ + + + + + | Specimen | + + | Blood specimen | | (specimen) | + + + + + + + | Performing | Address | City/State/Zipcode | Phone Number | | Organization | | | | + + + + + | [facility] | [address] | [place] | [phone] | | [facility] | | [id number] | | | - LABORATORY | | | | + + + + + | [facility] | | | | | [facility] | | | | | - LABORATORY | | | | + + + + + External Lab: AST (01/18/2010) + +-------+ + + + | Component | Value | Ref Range | Performed | Pathologist | | | | | At | Signature | + +-------+ + + + | AST, | 19 | 0 - 40 | EXTERNAL | | | External | | | LAB | | + +-------+ + + + + + | Specimen | + + | Blood specimen | | (specimen) | + + + + | Resulting Agency Comment | + + | [facility] | + + + +---------+ + + | Performing | Address | City/State/Zipcode | Phone Number | | Organization | | | | + +---------+ + + | EXTERNAL LAB | | | | + +---------+ + + External Lab: ALT (01/18/2010) + +-------+ + + + | Component | Value | Ref Range | Performed | Pathologist | | | | | At | Signature | + +-------+ + + + | ALT, | 25 | 0 - 46 | EXTERNAL | | | External | | | LAB | | + +-------+ + + + + + | Specimen | + + | Blood specimen | | (specimen) | + + + + | Resulting Agency Comment | + + | [facility] | + + + +---------+ + + | Performing | Address | City/State/Zipcode | Phone Number | | Organization | | | | + +---------+ + + | EXTERNAL LAB | | | | + +---------+ + + External Lab: Microalbumin/Creatinine Ratio, Urine (01/18/2010) + + + + + + | Component | Value | Ref Range | Performed | Pathologist | | | | | At | Signature | + + + + + + | Microalbumi | 151.4 (A) | 0 - 30 | EXTERNAL | | | n/Creatinin | | | LAB | | | e Ratio, | | | | | | External | | | | | + + + + + + + + | Specimen | + + | Blood specimen | | (specimen) | + + + + | Resulting Agency Comment | + + | [facility] | + + + +---------+ + + | Performing | Address | City/State/Zipcode | Phone Number | | Organization | | | | + +---------+ + + | EXTERNAL LAB | | | | + +---------+ + + External Lab: Microalbumin, Urine (01/18/2010) + + + + + + | Component | Value | Ref Range | Performed | Pathologist | | | | | At | Signature | + + + + + + | Microalbumi | 11.2 (A) | 0 - 2 | EXTERNAL | | | n, Urine, | | | LAB | | | External | | | | | + + + + + + + + | Specimen | + + | Blood specimen | | (specimen) | + + + + | Resulting Agency Comment | + + | [facility] | + + + +---------+ + + | Performing | Address | City/State/Zipcode | Phone Number | | Organization | | | | + +---------+ + + | EXTERNAL LAB | | | | + +---------+ + + External Lab: eGFR (01/18/2010) + +-------+ + + + | Component | Value | Ref Range | Performed | Pathologist | | | | | At | Signature | + +-------+ + + + | eGFR, | 47 | | EXTERNAL | | | External | | | LAB | | + +-------+ + + + | eGFR, | | | EXTERNAL | | | | | | LAB | | | Swazi, | | | | | | External | | | | | + +-------+ + + + + + | Specimen | + + | Blood specimen | | (specimen) | + + + + | Resulting Agency Comment | + + | [facility] | + + + +---------+ + + | Performing | Address | City/State/Zipcode | Phone Number | | Organization | | | | + +---------+ + + | EXTERNAL LAB | | | | + +---------+ + + External Lab: Creatinine (01/18/2010) + +-------+ + + + | Component | Value | Ref Range | Performed | Pathologist | | | | | At | Signature | + +-------+ + + + | Creatinine, | 1.49 | 0.5 - 1.5 | EXTERNAL | | | External | | | LAB | | + +-------+ + + + + + | Specimen | + + | Blood specimen | | (specimen) | + + + + | Resulting Agency Comment | + + | [facility] | + + + +---------+ + + | Performing | Address | City/State/Zipcode | Phone Number | | Organization | | | | + +---------+ + + | EXTERNAL LAB | | | | + +---------+ + + External Lab: Hemoglobin A1c (01/18/2010) + +-------+ + + + | Component | Value | Ref Range | Performed | Pathologist | | | | | At | Signature | + +-------+ + + + | Hemoglobin | 7.2 | | EXTERNAL | | | A1c, | | | LAB | | | external | | | | | + +-------+ + + + + + | Specimen | + + | Blood specimen | | (specimen) | + + + + | Resulting Agency Comment | + + | [facility] | + + + +---------+ + + | Performing | Address | City/State/Zipcode | Phone Number | | Organization | | | | + +---------+ + + | EXTERNAL LAB | | | | + +---------+ + + documented in this encounter Visit Diagnoses Not on filedocumented in this encounter"
--- OUTSIDE RECORDS SUMMARY | ~2020-04-03 | XMS | Encounter Summary ---
Demographics + + + | Address | [address] | | | [place] [address] | + + + | Home Phone | | + + + | Preferred Language | Unknown | + + + | Marital Status | Single | + + + | Taoist Affiliation | Unknown | + + + | Race | Unknown | + + + | Ethnic Group | Unknown | + + + Author + + + | Author | [facility] | | | and [place] | + + + | Organization | [facility] | | | and [place] | + + + | Address | Unknown | + + + | Phone | Unavailable | + + + Support + + + + + | Name | Relationship | Address | Phone | + + + + + | Hi Dawn | ECON | [place] | | | | | [address] | | + + + + + | Atif Delgadillo | ECON | [place] | | | | | [address] | | + + + + + | Caleb Dawn | ECON | Unknown | | + + + + + Care Team Providers + +------+ + | Care Supervisor Housecleaner Name | Role | Phone | + +------+ + | Anoop Moyer MD | PCP | | + +------+ + Reason for Visit + + + | Reason | Comments | + + + | Medication Follow-up | | + + + Encounter Details +--------+ + + + + | Date | Type | Department | Care Team | Description | +--------+ + + + + | 04/05/ | Telephone | [facility] | Freddy Sanchez | Medication Follow-up | | 2019 | | NEPHROLOGY [address] | M, DO [address] | | | | | [address] [facility] [address] | [place] | | | | | [place], [place] | [place] | | | | | [address] | [id number] | | | | | [phone] | | | +--------+ + + + [...] [place] | | | | | | [id number] | | | | | | | | +--------+---------+ + + + documented as of this encounter Visit Diagnoses Not on filedocumented in this encounter"
--- OUTSIDE RECORDS SUMMARY | ~2020-04-03 | XMS | Encounter Summary ---
Demographics + + + | Address | [address] | | | [place] [address] | + + + | Home Phone | | + + + | Preferred Language | Unknown | + + + | Marital Status | Single | + + + | Restorationist Affiliation | Unknown | + + + | Race | Unknown | + + + | Ethnic Group | Unknown | + + + Author + + + | Author | [facility] | | | and [place] | + + + | Organization | [facility] | | | and [place] | + + + | Address | Unknown | + + + | Phone | Unavailable | + + + Support + + + + + | Name | Relationship | Address | Phone | + + + + + | Hi Dawn | ECON | [place] | | | | | [address] | | + + + + + | Atif Delgadillo | ECON | [place] | | | | | [address] | | + + + + + | Caleb Dawn | ECON | Unknown | | + + + + + Care Team Providers + +------+ + | Care Case Loader Operator Name | Role | Phone | + +------+ + | Anoop Moyer MD | PCP | | + +------+ + Encounter Details +--------+ + + + + | Date | Type | Department | Care Team | Description | +--------+ + + + + | 02/13/ | Orders Only | [facility] | Freddy Sanchez | Chronic kidney | | 2019 | | NEPHROLOGY [address] | M, DO [address] | disease, stage III | | | | [address] | [place] | (moderate) (HCC) | | | | [place], [place] | [place] | (Primary Dx); Type 2 | | | | [address] | [address] | diabetes mellitus | | | | [phone] | | with stage 3 chronic | | | | | | kidney disease, | | | | | | unspecified whether | | | | | | residential insulin | | | | | | use ([facility]); | | | | | [...] + + documented as of this encounter Progress Notes Merary Arciniega RN - 02/14/2020 10:25 AM [facility] for nephrology appt on 03/10/20 sent [facility]. documented in this en counter Plan of Treatment +--------+---------+ + + + | Date | Type | Specialty | Care Team | Description | +--------+---------+ + + + | 05/20/ | Office | Cardiology | Yumiko Del Valle, | | | 2019 | Visit | | MD Lupe TYLER | | | | | | [place] | | | | | | [address] | | | | | | | | +--------+---------+ + + + + +------+--------+ + + | Name | Type | Priori | Associated Diagnoses | Order Schedule | | | | ty | | | + +------+--------+ + + | CBC with | Lab | Routin | Chronic kidney | 1 Occurrences | | Differential | | e | disease, stage III | starting 02/14/2020 | | | | | (moderate) ([facility]) | until 02/14/2021 | | | | | Type 2 diabetes | | | | | | mellitus with stage | | | | | | 3 chronic kidney | | | | | | disease, unspecified | | | | | | whether rodent exterminator | | | | | | insulin use ([facility]) | | | | | | Hyperlipidemia, | | | | | | mixed | | + +------+--------+ + + | Comprehensive | Lab | Routin | Chronic kidney | 1 Occurrences | | Metabolic Panel | | e | disease, stage III | starting 02/14/2020 | | | | | (moderate) ([facility]) | until 02/14/2021 | | | | | Type 2 diabetes | | | | | | mellitus with stage | | | | | | 3 chronic kidney | | | | | | disease, unspecified | | | | | | whether residential | | | | | | insulin use ([facility]) | | | | | | Hyperlipidemia, | | | | | | mixed | | + +------+--------+ + + | Phosphorus | Lab | Routin | Chronic kidney | 1 Occurrences | | | | e | disease, stage III | starting 02/14/2020 | | | | | (moderate) ([facility]) | until 02/14/2021 | | | | | Type 2 diabetes | | | | | | mellitus with stage | | | | | | 3 chronic kidney | | | | | | disease, unspecified | | | | | | whether residential | | | | | | insulin use ([facility]) | | | | | | Hyperlipidemia, | | | | | | mixed | | + +------+--------+ + + | Vitamin D, | Lab | Routin | Chronic kidney | 1 Occurrences | | Deficiency Screen | | e | disease, stage III | starting 02/14/2020 | | (25-Hydroxy) | | | (moderate) ([facility]) | until 02/14/2021 | | | | | Type 2 diabetes | | | | | | mellitus with stage | | | | | | 3 chronic kidney | | | | | | disease, unspecified | | | | | | whether rodent exterminator | | | | | | insulin use ([facility]) | | | | | | Hyperlipidemia, | | | | | | mixed | | + +------+--------+ + + | Parathyroid Hormone, | Lab | Routin | Chronic kidney | 1 Occurrences | | Intact | | e | disease, stage III | starting 02/14/2020 | | | | | (moderate) ([facility]) | until 02/14/2021 | | | | | Type 2 diabetes | | | | | | mellitus with stage | | | | | | 3 chronic kidney | | | | | | disease, unspecified | | | | | | whether rodent exterminator | | | | | | insulin use ([facility]) | | | | | | Hyperlipidemia, | | | | | | mixed | | + +------+--------+ + + | Lipid Profile | Lab | Routin | Chronic kidney | 1 Occurrences | | | | e | disease, stage III | starting 02/14/2020 | | | | | (moderate) ([facility]) | until 02/13/2021 | | | | | Type 2 diabetes | | | | | | mellitus with stage | | | | | | 3 chronic kidney | | | | | | disease, unspecified | | | | | | whether rodent exterminator | | | | | | insulin use ([facility]) | | | | | | Hyperlipidemia, | | | | | | mixed | | + +------+--------+ + + | Hemoglobin A1C | Lab | Routin | Chronic kidney | 1 Occurrences | | | | e | disease, stage III | starting 02/14/2020 | | | | | (moderate) ([facility]) | until 02/13/2021 | | | | | Type 2 diabetes | | | | | | mellitus with stage | | | | | | 3 chronic kidney | | | | | | disease, unspecified | | | | | | whether rodent exterminator | | | | | | insulin use ([facility]) | | | | | | Hyperlipidemia, | | | | | | mixed | | + +------+--------+ + + | Creatinine | Lab | Routin | Chronic kidney | 1 Occurrences | | Clearance, Result | | e | disease, stage III | starting 02/14/2020 | | | | | (moderate) ([facility]) | until 02/14/2021 | | | | | Type 2 diabetes | | | | | | mellitus with stage | | | | | | 3 chronic kidney | | | | | | disease, unspecified | | | | | | whether residential | | | | | | insulin use (HCC) | | | | | | Hyperlipidemia, | | | | | | mixed | | + +------+--------+ + + | Protein, Urine, 24Hr | Lab | Routin | Chronic kidney | 1 Occurrences | | | | e | disease, stage III | starting 02/14/2020 | | | | | (moderate) (HCC) | until 02/14/2021 | | | | | Type 2 diabetes | | | | | | mellitus with stage | | | | | | 3 chronic kidney | | | | | | disease, unspecified | | | | | | whether rodent exterminator | | | | | | insulin use (HCC) | | | | | | Hyperlipidemia, | | | | | | mixed | | + +------+--------+ + + documented as of this encounter Visit Diagnoses + + | Diagnosis | + + | Chronic kidney disease, stage III (moderate) (HCC) - Primary Chronic kidney disease, | | Stage III (moderate) | + + | Type 2 diabetes mellitus with stage 3 chronic kidney disease, unspecified whether long | | term insulin use (HCC) | + + | Hyperlipidemia, mixed Mixed hyperlipidemia | + + documented in this encounter"
--- OUTSIDE RECORDS SUMMARY | ~2020-04-03 | XMS | Encounter Summary ---
Demographics + + + | Address | [address] | | | [place] [address] | + + + | Home Phone | | + + + | Preferred Language | Unknown | + + + | Marital Status | Single | + + + | Tenriism Affiliation | Unknown | + + + | Race | Unknown | + + + | Ethnic Group | Unknown | + + + Author + + + | Author | [facility] | | | and [place] | + + + | Organization | [facility] | | | and [place] | + + + | Address | Unknown | + + + | Phone | Unavailable | + + + Support + + + + + | Name | Relationship | Address | Phone | + + + + + | Hi Dawn | ECON | [place] | | | | | [address] | | + + + + + | Atif Delgadillo | ECON | [place], [place] | | | | | [address] | | + + + + + | Caleb Dawn | ECON | Unknown | | + + + + + Care Team Providers + +------+ + | Care Car Supervisor Name | Role | Phone | + +------+ + PCP | Unavailable | + +------+ + Encounter Details +--------+ + + + + | Date | Type | Department | Care Team | Description | +--------+ + + + + | 11/29/ | Abstract | [facility] | Freddy Sanchez | | | 2017 | | NEPHROLOGY [address] | M, DO [address] | | | | | [address] | [place] | | | | | [place], [place] | [place] | | | | | [address] | [address] | | | | | [phone] | | | +--------+ + + + [...] | | | | | [place], [place] | | | | | | [address] | | | | | | | | +--------+---------+ + + + documented as of this encounter Procedures + +--------+ + + + | Procedure Name | Priori | Date/Time | Associated Diagnosis | Comments | | | ty | | | | + +--------+ + + + | EXTERNAL LAB: FATOUMATA | Routin | 11/28/2016 | | Results for this | | | e | | | procedure are in the | | | | | | results section. | + +--------+ + + + | EXTERNAL LAB: | Routin | 11/28/2016 | | Results for this | | GLUCOSE | e | | | procedure are in the | | | | | | results section. | + +--------+ + + + | EXTERNAL LAB: | Routin | 11/28/2016 | | Results for this | | CALCIUM | e | | | procedure are in the | | | | | | results section. | + +--------+ + + + | EXTERNAL LAB: CARBON | Routin | 11/28/2016 | | Results for this | | DIOXIDE | e | | | procedure are in the | | | | | | results section. | + +--------+ + + + | EXTERNAL LAB: | Routin | 11/28/2016 | | Results for this | | CHLORIDE | e | | | procedure are in the | | | | | | results section. | + +--------+ + + + | EXTERNAL LAB: | Routin | 11/28/2016 | | Results for this | | POTASSIUM | e | | | procedure are in the | | | | | | results section. | + +--------+ + + + | EXTERNAL LAB: SODIUM | Routin | 11/28/2016 | | Results for this | | | e | | | procedure are in the | | | | | | results section. | + +--------+ + + + | EXTERNAL LAB: ELSA | Routin | 11/28/2016 | | Results for this | | | e | | | procedure are in the | | | | | | results section. | + +--------+ + + + | EXTERNAL LAB: | Routin | 11/28/2016 | | Results for this | | CREATININE | e | | | procedure are in the | | | | | | results section. | + +--------+ + + + documented in this encounter Results External Lab: FATOUMATA (11/28/2016) + +--------+ + + + | Component | Value | Ref Range | Performed | Pathologist | | | | | At | Signature | + +--------+ + + + | BUN, | 46 (A) | 6 - 23 | EXTERNAL | | | External | | | LAB | | + +--------+ + + + + +---------+ + + | Performing | Address | City/State/Zipcode | Phone Number | | Organization | | | | + +---------+ + + | EXTERNAL LAB | | | | + +---------+ + + External Lab: Glucose (11/28/2016) + +-------+ + + + | Component | Value | Ref Range | Performed | Pathologist | | | | | At | Signature | + +-------+ + + + | Glucose, | 85 | 70 - 100 | EXTERNAL | | | External | | | LAB | | + +-------+ + + + + +---------+ + + | Performing | Address | City/State/Zipcode | Phone Number | | Organization | | | | + +---------+ + + | EXTERNAL LAB | | | | + +---------+ + + External Lab: Calcium (11/28/2016) + +-------+ + + + | Component | Value | Ref Range | Performed | Pathologist | | | | | At | Signature | + +-------+ + + + | Calcium, | 10.1 | 8.4 - 10.4 | EXTERNAL | | | External | | | LAB | | + +-------+ + + + + +---------+ + + | Performing | Address | City/State/Zipcode | Phone Number | | Organization | | | | + +---------+ + + | EXTERNAL LAB | | | | + +---------+ + + External Lab: Carbon Dioxide (11/28/2016) + +-------+ + + + | Component | Value | Ref Range | Performed | Pathologist | | | | | At | Signature | + +-------+ + + + | Carbon | 28 | 23 - 32 | EXTERNAL | | | Dioxide, | | | LAB | | | External | | | | | + +-------+ + + + + +---------+ + + | Performing | Address | City/State/Zipcode | Phone Number | | Organization | | | | + +---------+ + + | EXTERNAL LAB | | | | + +---------+ + + External Lab: Chloride (11/28/2016) + +-------+ + + + | Component | Value | Ref Range | Performed | Pathologist | | | | | At | Signature | + +-------+ + + + | Chloride, | 101 | 100 - 110 | EXTERNAL | | | External | | | LAB | | + +-------+ + + + + +---------+ + + | Performing | Address | City/State/Zipcode | Phone Number | | Organization | | | | + +---------+ + + | EXTERNAL LAB | | | | + +---------+ + + External Lab: Potassium (11/28/2016) + +-------+ + + + | Component | Value | Ref Range | Performed | Pathologist | | | | | At | Signature | + +-------+ + + + | Potassium, | 3.7 | 3.5 - 5.1 | EXTERNAL | | | External | | | LAB | | + +-------+ + + + + +---------+ + + | Performing | Address | City/State/Zipcode | Phone Number | | Organization | | | | + +---------+ + + | EXTERNAL LAB | | | | + +---------+ + + External Lab: Sodium (11/28/2016) + +-------+ + + + | Component | Value | Ref Range | Performed | Pathologist | | | | | At | Signature | + +-------+ + + + | Sodium, | 141 | 135 - 145 | EXTERNAL | | | External | | | LAB | | + +-------+ + + + + +---------+ + + | Performing | Address | City/State/Zipcode | Phone Number | | Organization | | | | + +---------+ + + | EXTERNAL LAB | | | | + +---------+ + + External Lab: eGFR (11/28/2016) + +--------+ + + + | Component | Value | Ref Range | Performed | Pathologist | | | | | At | Signature | + +--------+ + + + | eGFR, | 46 (A) | 60 | EXTERNAL | | | External | | | LAB | | + +--------+ + + + + + | Specimen | + + | Blood specimen | | (specimen) | + + + +---------+ + + | Performing | Address | City/State/Zipcode | Phone Number | | Organization | | | | + +---------+ + + | EXTERNAL LAB | | | | + +---------+ + + External Lab: Creatinine (11/28/2016) + + + + + + | Component | Value | Ref Range | Performed | Pathologist | | | | | At | Signature | + + + + + + | Creatinine, | 1.97 (A) | 0.6 - 1.3 | EXTERNAL | | | External | | | LAB | | + + + + + + + + | Specimen | + + | Blood specimen | | (specimen) | + + + +---------+ + + | Performing | Address | City/State/Zipcode | Phone Number | | Organization | | | | + +---------+ + + | EXTERNAL LAB | | | | + +---------+ + + documented in this encounter Visit Diagnoses Not on filedocumented in this encounter"
--- OUTSIDE RECORDS SUMMARY | ~2020-04-03 | XMS | Encounter Summary ---
Demographics + + + | Address | [address] | | | [place] [address] | + + + | Home Phone | | + + + | Preferred Language | Unknown | + + + | Marital Status | Single | + + + | Baptism Affiliation | Unknown | + + + | Race | Unknown | + + + | Ethnic Group | Unknown | + + + Author + + + | Author | [facility] | | | and [place] | + + + | Organization | [facility] | | | and [place] | + + + | Address | Unknown | + + + | Phone | Unavailable | + + + Support + + + + + | Name | Relationship | Address | Phone | + + + + + | Hi Dawn | ECON | [place] | | | | | [address] | | + + + + + | Atif Delgadillo | ECON | [place], [place] | | | | | [address] | | + + + + + | Caleb Dawn | ECON | Unknown | | + + + + + Care Team Providers + +------+ + | Care Supervisor Malted Milk Name | Role | Phone | + +------+ + PCP | Unavailable | + +------+ + Encounter Details +--------+ + + + + | Date | Type | Department | Care Team | Description | +--------+ + + + + | 10/24/ | Orders Only | [facility] [place] | Freddy Sanchez | Chronic kidney | | 2012 | | NEPHROLOGY [address] | M, DO [address] | disease, stage III | | | | [address] | [place], [address] | (moderate) (Primary | | | | [place], [place] | [place], [place] | Dx); Type II or | | | | [address] | [address] | unspecified type | | | | [phone] | | diabetes mellitus | | | | | | with renal | | | | | | manifestations, not | | | | | | stated as | | | | | | uncontrolled (HCC); | | | | | | Unspecified | | | | | | hypertensive kidney | | | | | | disease with chronic | | | | | | kidney disease | | | | | | stage I through | | | | | | stage IV, or | | | | | | unspecified | +--------+ + + + + Social [...] + documented as of this encounter Progress Jelena Bay RN - 10/24/2013 3:13 PM PSTLab order for nephrology appt on 11/25/13 faxed to [facility] in [place].Electronically signed by Jelena Wick RN at 03/2013 3:16 PM PSTdocumented in this encounter Plan of Treatment +--------+---------+ + + + | Date | Type | Specialty | Care Team | Description | +--------+---------+ + + + | 05/20/ | Office | Cardiology | Yumiko Del Valle, | | | 2019 | Visit | | MD Lupe [address]YLER | | | | | | [place] | | | | | | [address] | | | | | | | | +--------+---------+ + + + + +------+--------+ + + | Name | Type | Priori | Associated Diagnoses | Order Schedule | | | | ty | | | + +------+--------+ + + | CBC with | Lab | Routin | Chronic kidney | Expected: 11/18/2013 | | Differential | | e | disease, stage III | (Approximate), | | | | | (moderate) Type II | Expires: 10/24/2014 | | | | | or unspecified type | | | | | | diabetes mellitus | | | | | | with renal | | | | | | manifestations, not | | | | | | stated as | | | | | | uncontrolled (HCC) | | | | | | Unspecified | | | | | | hypertensive kidney | | | | | | disease with chronic | | | | | | kidney disease | | | | | | stage I through | | | | | | stage IV, or | | | | | | unspecified | | + +------+--------+ + + | Comprehensive | Lab | Routin | Chronic kidney | Expected: 11/18/2013 | | Metabolic Panel | | e | disease, stage III | (Approximate), | | | | | (moderate) Type II | Expires: 10/24/2014 | | | | | or unspecified type | | | | | | diabetes mellitus | | | | | | with renal | | | | | | manifestations, not | | | | | | stated as | | | | | | uncontrolled (HCC) | | | | | | Unspecified | | | | | | hypertensive kidney | | | | | | disease with chronic | | | | | | kidney disease | | | | | | stage I through | | | | | | stage IV, or | | | | | | unspecified | | + +------+--------+ + + | Hemoglobin A1C | Lab | Routin | Chronic kidney | Expected: 11/18/2013 | | | | e | disease, stage III | (Approximate), | | | | | (moderate) Type II | Expires: 10/24/2014 | | | | | or unspecified type | | | | | | diabetes mellitus | | | | | | with renal | | | | | | manifestations, not | | | | | | stated as | | | | | | uncontrolled (HCC) | | | | | | Unspecified | | | | | | hypertensive kidney | | | | | | disease with chronic | | | | | | kidney disease | | | | | | stage I through | | | | | | stage IV, or | | | | | | unspecified | | + +------+--------+ + + | Phosphorus | Lab | Routin | Chronic kidney | Expected: 11/18/2013 | | | | e | disease, stage III | (Approximate), | | | | | (moderate) Type II | Expires: 10/24/2014 | | | | | or unspecified type | | | | | | diabetes mellitus | | | | | | with renal | | | | | | manifestations, not | | | | | | stated as | | | | | | uncontrolled (HCC) | | | | | | Unspecified | | | | | | hypertensive kidney | | | | | | disease with chronic | | | | | | kidney disease | | | | | | stage I through | | | | | | stage IV, or | | | | | | unspecified | | + +------+--------+ + + | Protein, Urine, 24Hr | Lab | Routin | Chronic kidney | Expected: 11/18/2013 | | | | e | disease, stage III | (Approximate), | | | | | (moderate) Type II | Expires: 10/24/2014 | | | | | or unspecified type | | | | | | diabetes mellitus | | | | | | with renal | | | | | | manifestations, not | | | | | | stated as | | | | | | uncontrolled (HCC) | | | | | | Unspecified | | | | | | hypertensive kidney | | | | | | disease with chronic | | | | | | kidney disease | | | | | | stage I through | | | | | | stage IV, or | | | | | | unspecified | | + +------+--------+ + + | Parathyroid Hormone, | Lab | Routin | Chronic kidney | Expected: 11/18/2013 | | Intact | | e | disease, stage III | (Approximate), | | | | | (moderate) Type II | Expires: 10/24/2014 | | | | | or unspecified type | | | | | | diabetes mellitus | | | | | | with renal | | | | | | manifestations, not | | | | | | stated as | | | | | | uncontrolled (HCC) | | | | | | Unspecified | | | | | | hypertensive kidney | | | | | | disease with chronic | | | | | | kidney disease | | | | | | stage I through | | | | | | stage IV, or | | | | | | unspecified | | + +------+--------+ + + | Creatinine | Lab | Routin | Chronic kidney | Expected: 11/18/2013 | | Clearance, Result | | e | disease, stage III | (Approximate), | | | | | (moderate) Type II | Expires: 10/24/2014 | | | | | or unspecified type | | | | | | diabetes mellitus | | | | | | with renal | | | | | | manifestations, not | | | | | | stated as | | | | | | uncontrolled (HCC) | | | | | | Unspecified | | | | | | hypertensive kidney | | | | | | disease with chronic | | | | | | kidney disease | | | | | | stage I through | | | | | | stage IV, or | | | | | | unspecified | | + +------+--------+ + + documented as of this encounter Visit Diagnoses + + | Diagnosis | + + | Chronic kidney disease, stage III (moderate) (HCC) - Primary Chronic kidney disease, | | Stage III (moderate) | + + | Type II or unspecified type diabetes mellitus with renal manifestations, not stated as | | uncontrolled(250.40) ([facility]) Type II or unspecified type diabetes mellitus with renal | | manifestations, not stated as uncontrolled | + + | Unspecified hypertensive kidney disease with chronic kidney disease stage I through | | stage IV, or unspecified(403.90) Unspecified hypertensive kidney disease with chronic | | kidney disease stage I through stage IV, or unspecified | + + documented in this encounter"
--- OUTSIDE RECORDS SUMMARY | ~2020-04-03 | XMS | Encounter Summary ---
Demographics + + + | Address | [address] | | | [place] [address] | + + + | Home Phone | | + + + | Preferred Language | Unknown | + + + | Marital Status | Single | + + + | Uatsdin Affiliation | Unknown | + + + | Race | Unknown | + + + | Ethnic Group | Unknown | + + + Author + + + | Author | [facility] | | | and [place] | + + + | Organization | [facility] | | | and [place] | + + + | Address | Unknown | + + + | Phone | Unavailable | + + + Support + + + + + | Name | Relationship | Address | Phone | + + + + + | Hi Dawn | ECON | [place] | | | | | [address] | | + + + + + | Atif Delgadillo | ECON | [place], [place] | | | | | [address] | | + + + + + | Caleb Dawn | ECON | Unknown | | + + + + + Care Team Providers + +------+ + | Care Machine I Engraver Name | Role | Phone | + +------+ + PCP | Unavailable | + +------+ + Encounter Details +--------+ + + + + | Date | Type | Department | Care Team | Description | +--------+ + + + + | 04/03/ | Orders Only | [facility] [place] | Freddy Sanchez | Chronic kidney | | 2013 | | NEPHROLOGY [address] | M, DO [address] [place] | disease, stage III | | | | [address] | [place], [address] | (moderate) (Primary | | | | [place], [place] | [place], [place] | Dx); Hypertension | | | | [address] | [address] | | | | | [phone] | | | +--------+ + + + [...] documented as of this encounter Progress Notes Jelena Wick RN - 04/24/2014 12:00 PM PDTAppointment moved to 05/19/14.Robina rita signed by Jelena Wick RN at 04/24/2014 12:00 PM Imani Segovia RN - 03/20 1:41 PM PDTLabs [facility]/28[facility] documented in this e ncounter Plan of Treatment +--------+---------+ + + + | Date | Type | Specialty | Care Team | Description | +--------+---------+ + + + | 05/20/ | Office | Cardiology | Eligio Tripprhoda, | | | 2019 | Visit | | MD [address]pe [address] | | | | | | [place], [place] | | | | | | [address] | | | | | | | | +--------+---------+ + + + documented as of this encounter Visit Diagnoses + + | Diagnosis | + + | Chronic kidney disease, stage III (moderate) - Primary Chronic kidney disease, Stage | | III (moderate) | + + | Hypertension Unspecified essential hypertension | + + documented in this encounter"
--- OUTSIDE RECORDS SUMMARY | ~2020-04-03 | XMS | Encounter Summary ---
Demographics + + + | Address | [address] | | | [place] [address] | + + + | Home Phone | | + + + | Preferred Language | Unknown | + + + | Marital Status | Single | + + + | Mosque Affiliation | Unknown | + + + | Race | Unknown | + + + | Ethnic Group | Unknown | + + + Author + + + | Author | [facility] | | | and [place] | + + + | Organization | [facility] | | | and [place] | + + + | Address | Unknown | + + + | Phone | Unavailable | + + + Support + + + + + | Name | Relationship | Address | Phone | + + + + + | Hi Dawn | ECON | [place] | | | | | [address] | | + + + + + | Atif Delgadillo | ECON | [place], [place] | | | | | [address] | | + + + + + | Caleb Dawn | ECON | Unknown | | + + + + + Care Team Providers + +------+ + | Care Biomedical Field Service Engineer Name | Role | Phone | + +------+ + PCP | Unavailable | + +------+ + Encounter Details +--------+ + + + + | Date | Type | Department | Care Team | Description | +--------+ + + + + | 10/17/ | Abstract | [facility] | Timothy, | | | 2015 | | CARDIOLOGY [address] | [address] | | | | | [place], | [place], | | | | | [place] [address] | [place] [address] | | | | | [phone] | [phone] | | | | | | | [...] [address] | | | | | | [place], [place] | | | | | | [address] | | | | | | | | +--------+---------+ + + + documented as of this encounter Procedures + +--------+ + + + | Procedure Name | Priori | Date/Time | Associated Diagnosis | Comments | | | ty | | | | + +--------+ + + + | EXTERNAL LAB: BUN | Routin | 09/29/2016 | | Results for this | | | e | 10:36 PM | | procedure are in the | | | | PST | | results section. | + +--------+ + + + | EXTERNAL LAB: | Routin | 09/29/2016 | | Results for this | | GLUCOSE | e | 10:36 PM | | procedure are in the | | | | PST | | results section. | + +--------+ + + + | EXTERNAL LAB: ALT | Routin | 09/29/2016 | | Results for this | | | e | 10:36 PM | | procedure are in the | | | | PST | | results section. | + +--------+ + + + | EXTERNAL LAB: AST | Routin | 09/29/2016 | | Results for this | | | e | 10:36 PM | | procedure are in the | | | | PST | | results section. | + +--------+ + + + | EXTERNAL LAB: | Routin | 09/29/2016 | | Results for this | | ALKALINE PHOSPHATASE | e | 10:36 PM | | procedure are in the | | | | PST | | results section. | + +--------+ + + + | EXTERNAL LAB: | Routin | 09/29/2016 | | Results for this | | BILIRUBIN, TOTAL | e | 10:36 PM | | procedure are in the | | | | PST | | results section. | + +--------+ + + + | EXTERNAL LAB: | Routin | 09/29/2016 | | Results for this | | ALBUMIN | e | 10:36 PM | | procedure are in the | | | | PST | | results section. | + +--------+ + + + | EXTERNAL LAB: | Routin | 09/29/2016 | | Results for this | | PROTEIN, TOTAL | e | 10:36 PM | | procedure are in the | | | | PST | | results section. | + +--------+ + + + | EXTERNAL LAB: | Routin | 09/29/2016 | | Results for this | | CALCIUM | e | 10:36 PM | | procedure are in the | | | | PST | | results section. | + +--------+ + + + | EXTERNAL LAB: CARBON | Routin | 09/29/2016 | | Results for this | | DIOXIDE | e | 10:36 PM | | procedure are in the | | | | PST | | results section. | + +--------+ + + + | EXTERNAL LAB: | Routin | 09/29/2016 | | Results for this | | CHLORIDE | e | 10:36 PM | | procedure are in the | | | | PST | | results section. | + +--------+ + + + | EXTERNAL LAB: | Routin | 09/29/2016 | | Results for this | | POTASSIUM | e | 10:36 PM | | procedure are in the | | | | PST | | results section. | + +--------+ + + + | EXTERNAL LAB: SODIUM | Routin | 09/29/2016 | | Results for this | | | e | 10:36 PM | | procedure are in the | | | | PST | | results section. | + +--------+ + + + | EXTERNAL LAB: | Routin | 09/29/2016 | | Results for this | | URINALYSIS | e | 10:36 PM | | procedure are in the | | | | PST | | results section. | + +--------+ + + + | EXTERNAL LAB: CBC | Routin | 09/29/2016 | | Results for this | | | e | 10:36 PM | | procedure are in the | | | | PST | | results section. | + +--------+ + + + | EXTERNAL LAB: | Routin | 09/29/2016 | | Results for this | | TRIGLYCERIDES | e | 10:36 PM | | procedure are in the | | | | PST | | results section. | + +--------+ + + + | EXTERNAL LAB: | Routin | 09/29/2016 | | Results for this | | CHOLESTEROL, HDL | e | 10:36 PM | | procedure are in the | | | | PST | | results section. | + +--------+ + + + | EXTERNAL LAB: | Routin | 09/29/2016 | | Results for this | | CHOLESTEROL, TOTAL | e | 10:36 PM | | procedure are in the | | | | PST | | results section. | + +--------+ + + + | EXTERNAL LAB: | Routin | 09/29/2016 | | Results for this | | CHOLESTEROL, LDL | e | 10:36 PM | | procedure are in the | | | | PST | | results section. | + +--------+ + + + | EXTERNAL LAB: EGFR | Routin | 09/29/2016 | | Results for this | | | e | 10:36 PM | | procedure are in the | | | | PST | | results section. | + +--------+ + + + | EXTERNAL LAB: | Routin | 09/29/2016 | | Results for this | | CREATININE | e | 10:36 PM | | procedure are in the | | | | PST | | results section. | + +--------+ + + + | LIPID PANEL | Routin | 09/29/2016 | | Results for this | | | e | 10:33 AM | | procedure are in the | | | | PST | | results section. | + +--------+ + + + | CBC WITH | Routin | 09/29/2016 | | Results for this | | DIFFERENTIAL | e | 10:33 AM | | procedure are in the | | | | PST | | results section. | + +--------+ + + + | COMPREHENSIVE | Routin | 09/29/2016 | | Results for this | | METABOLIC PANEL | e | 10:33 AM | | procedure are in the | | | | PST | | results section. | + +--------+ + + + documented in this encounter Results External Lab: FATOUMATA (09/29/2016 10:36 PM PST) + +--------+ + + + | Component | Value | Ref Range | Performed | Pathologist | | | | | At | Signature | + +--------+ + + + | BUN, | 40 (A) | 6 - 23 | EXTERNAL | | | External | | | LAB | | + +--------+ + + + + + | Resulting Agency Comment | + + | [facility] | + + + +---------+ + + | Performing | Address | City/State/Zipcode | Phone Number | | Organization | | | | + +---------+ + + | EXTERNAL LAB | | | | + +---------+ + + External Lab: Glucose (09/29/2016 10:36 PM PST) + +---------+ + + + | Component | Value | Ref Range | Performed | Pathologist | | | | | At | Signature | + +---------+ + + + | Glucose, | 237 (A) | 70 - 100 | EXTERNAL | | | External | | | LAB | | + +---------+ + + + + + | Resulting Agency Comment | + + | [facility] | + + + +---------+ + + | Performing | Address | City/State/Zipcode | Phone Number | | Organization | | | | + +---------+ + + | EXTERNAL LAB | | | | + +---------+ + + External Lab: ALT (09/29/2016 10:36 PM PST) + +-------+ + + + | Component | Value | Ref Range | Performed | Pathologist | | | | | At | Signature | + +-------+ + + + | ALT, | 20 | 7 - 52 | EXTERNAL | | | External | | | LAB | | + +-------+ + + + + + | Resulting Agency Comment | + + | [facility] | + + + +---------+ + + | Performing | Address | City/State/Zipcode | Phone Number | | Organization | | | | + +---------+ + + | EXTERNAL LAB | | | | + +---------+ + + External Lab: AST (09/29/2016 10:36 PM PST) + +-------+ + + + | Component | Value | Ref Range | Performed | Pathologist | | | | | At | Signature | + +-------+ + + + | AST, | 13 | 13 - 39 | EXTERNAL | | | External | | | LAB | | + +-------+ + + + + + | Resulting Agency Comment | + + | [facility] | + + + +---------+ + + | Performing | Address | City/State/Zipcode | Phone Number | | Organization | | | | + +---------+ + + | EXTERNAL LAB | | | | + +---------+ + + External Lab: Alkaline Phosphatase (09/29/2016 10:36 PM PST) + +-------+ + + + | Component | Value | Ref Range | Performed | Pathologist | | | | | At | Signature | + +-------+ + + + | ALP, | 63 | 30 - 128 | EXTERNAL | | | External | | | LAB | | + +-------+ + + + + + | Resulting Agency Comment | + + | [facility] | + + + +---------+ + + | Performing | Address | City/State/Zipcode | Phone Number | | Organization | | | | + +---------+ + + | EXTERNAL LAB | | | | + +---------+ + + External Lab: Bilirubin, Total (09/29/2016 10:36 PM PST) + +-------+ + + + | Component | Value | Ref Range | Performed | Pathologist | | | | | At | Signature | + +-------+ + + + | Bilirubin, | 0.7 | 0 - 1.2 | EXTERNAL | | | Total, | | | LAB | | | External | | | | | + +-------+ + + + + + | Resulting Agency Comment | + + | [facility] | + + + +---------+ + + | Performing | Address | City/State/Zipcode | Phone Number | | Organization | | | | + +---------+ + + | EXTERNAL LAB | | | | + +---------+ + + External Lab: Albumin (09/29/2016 10:36 PM PST) + +-------+ + + + | Component | Value | Ref Range | Performed | Pathologist | | | | | At | Signature | + +-------+ + + + | Albumin, | 4.2 | 3.5 - 5 | EXTERNAL | | | External | | | LAB | | + +-------+ + + + + + | Resulting Agency Comment | + + | [facility] | + + + +---------+ + + | Performing | Address | City/State/Zipcode | Phone Number | | Organization | | | | + +---------+ + + | EXTERNAL LAB | | | | + +---------+ + + External Lab: Protein, Total (09/29/2016 10:36 PM PST) + +-------+ + + + | Component | Value | Ref Range | Performed | Pathologist | | | | | At | Signature | + +-------+ + + + | Protein, | 6.5 | 6 - 8 | EXTERNAL | | | Total, | | | LAB | | | External | | | | | + +-------+ + + + + + | Resulting Agency Comment | + + | [facility] | + + + +---------+ + + | Performing | Address | City/State/Zipcode | Phone Number | | Organization | | | | + +---------+ + + | EXTERNAL LAB | | | | + +---------+ + + External Lab: Calcium (09/29/2016 10:36 PM PST) + +-------+ + + + | Component | Value | Ref Range | Performed | Pathologist | | | | | At | Signature | + +-------+ + + + | Calcium, | 9.7 | 8.4 - 10.2 | EXTERNAL | | | External | | | LAB | | + +-------+ + + + + + | Resulting Agency Comment | + + | [facility] | + + + +---------+ + + | Performing | Address | City/State/Zipcode | Phone Number | | Organization | | | | + +---------+ + + | EXTERNAL LAB | | | | + +---------+ + + External Lab: Carbon Dioxide (09/29/2016 10:36 PM PST) + +-------+ + + + | Component | Value | Ref Range | Performed | Pathologist | | | | | At | Signature | + +-------+ + + + | Carbon | 21 | 19 - 31 | EXTERNAL | | | Dioxide, | | | LAB | | | External | | | | | + +-------+ + + + + + | Resulting Agency Comment | + + | [facility] | + + + +---------+ + + | Performing | Address | City/State/Zipcode | Phone Number | | Organization | | | | + +---------+ + + | EXTERNAL LAB | | | | + +---------+ + + External Lab: Chloride (09/29/2016 10:36 PM PST) + +-------+ + + + | Component | Value | Ref Range | Performed | Pathologist | | | | | At | Signature | + +-------+ + + + | Chloride, | 103 | 95 - 112 | EXTERNAL | | | External | | | LAB | | + +-------+ + + + + + | Resulting Agency Comment | + + | [facility] | + + + +---------+ + + | Performing | Address | City/State/Zipcode | Phone Number | | Organization | | | | + +---------+ + + | EXTERNAL LAB | | | | + +---------+ + + External Lab: Potassium (09/29/2016 10:36 PM PST) + +-------+ + + + | Component | Value | Ref Range | Performed | Pathologist | | | | | At | Signature | + +-------+ + + + | Potassium, | 3.8 | 3.6 - 5.1 | EXTERNAL | | | External | | | LAB | | + +-------+ + + + + + | Resulting Agency Comment | + + | [facility] | + + + +---------+ + + | Performing | Address | City/State/Zipcode | Phone Number | | Organization | | | | + +---------+ + + | EXTERNAL LAB | | | | + +---------+ + + External Lab: Sodium (09/29/2016 10:36 PM PST) + +-------+ + + + | Component | Value | Ref Range | Performed | Pathologist | | | | | At | Signature | + +-------+ + + + | Sodium, | 138 | 132 - 143 | EXTERNAL | | | External | | | LAB | | + +-------+ + + + + + | Resulting Agency Comment | + + | [facility] | + + + +---------+ + + | Performing | Address | City/State/Zipcode | Phone Number | | Organization | | | | + +---------+ + + | EXTERNAL LAB | | | | + +---------+ + + External Lab: Urinalysis (09/29/2016 10:36 PM PST) + + + + + + | Component | Value | Ref Range | Performed | Pathologist | | | | | At | Signature | + + + + + + | UA Blood, | Negative | | EXTERNAL | | | External | | | LAB | | + + + + + + | UA Glucose, | Normal | | EXTERNAL | | | External | | | LAB | | + + + + + + | UA Ketones, | Negative | | EXTERNAL | | | External | | | LAB | | + + + + + + | UA Ph, | 5 | 5 - 9 | EXTERNAL | | | External | | | LAB | | + + + + + + | UA | Negative | | EXTERNAL | | | Proteins, | | | LAB | | | External | | | | | + + + + + + | UA RBC, | 0 | 0 - 4 | EXTERNAL | | | External | | | LAB | | + + + + + + | UA Specific | 1.008 | 1.005 - 1.03 | EXTERNAL | | | [place], | | | LAB | | | External | | | | | + + + + + + + + | Resulting Agency Comment | + + | [facility] | + + + +---------+ + + | Performing | Address | City/State/Zipcode | Phone Number | | Organization | | | | + +---------+ + + | EXTERNAL LAB | | | | + +---------+ + + External Lab: CBC (09/29/2016 10:36 PM PST) + + + + + + | Component | Value | Ref Range | Performed | Pathologist | | | | | At | Signature | + + + + + + | WBC, | 7.1 | 4.5 - 11 | EXTERNAL | | | External | | | LAB | | + + + + + + | HGB, | 13.6 | 13.5 - 18 | EXTERNAL | | | External | | | LAB | | + + + + + + | HCT, | 38.9 (A) | 41 - 50 | EXTERNAL | | | External | | | LAB | | + + + + + + | PLT, | 132 (A) | 140 - 440 | EXTERNAL | | | External | | | LAB | | + + + + + + | Neutrophils | 69.7 | 39 - 80 | EXTERNAL | | | %, | | | LAB | | | External | | | | | + + + + + + | Lymphocytes | 18.7 (A) | 24 - 44 | EXTERNAL | | | %, | | | LAB | | | External | | | | | + + + + + + | Monocytes | 7.7 | 0 - 12 | EXTERNAL | | | %, External | | | LAB | | + + + + + + | Eosinophils | 3.5 | 0 - 6 | EXTERNAL | | | %, | | | LAB | | | External | | | | | + + + + + + | RBC, | 4.35 | 4.3 - 5.7 | EXTERNAL | | | External | | | LAB | | + + + + + + | MCV, | 89 | 81 - 99 | EXTERNAL | | | External | | | LAB | | + + + + + + | RDW, | 15.4 (A) | 10.5 - 15 | EXTERNAL | | | External | | | LAB | | + + + + + + + + | Resulting Agency Comment | + + | [facility] | + + + +---------+ + + | Performing | Address | City/State/Zipcode | Phone Number | | Organization | | | | + +---------+ + + | EXTERNAL LAB | | | | + +---------+ + + External Lab: Triglycerides (09/29/2016 10:36 PM PST) + +---------+ + + + | Component | Value | Ref Range | Performed | Pathologist | | | | | At | Signature | + +---------+ + + + | Triglycerid | 235 (A) | 30 - 150 | EXTERNAL | | | es, | | | LAB | | | External | | | | | + +---------+ + + + + + | Specimen | + + | Blood specimen | | (specimen) | + + + + | Resulting Agency Comment | + + | [facility] | + + + +---------+ + + | Performing | Address | City/State/Zipcode | Phone Number | | Organization | | | | + +---------+ + + | EXTERNAL LAB | | | | + +---------+ + + External Lab: Cholesterol, HDL (09/29/2016 10:36 PM PST) + + + + + + | Component | Value | Ref Range | Performed | Pathologist | | | | | At | Signature | + + + + + + | HDL | 30.4 (A) | 40 mg/dl | EXTERNAL | | | Cholesterol | | | LAB | | | , External | | | | | + + + + + + + + | Specimen | + + | Blood specimen | | (specimen) | + + + + | Resulting Agency Comment | + + | [facility] | + + + +---------+ + + | Performing | Address | City/State/Zipcode | Phone Number | | Organization | | | | + +---------+ + + | EXTERNAL LAB | | | | + +---------+ + + External Lab: Cholesterol, Total (09/29/2016 10:36 PM PST) + +-------+ + + + | Component | Value | Ref Range | Performed | Pathologist | | | | | At | Signature | + +-------+ + + + | Cholesterol | 138 | 200 mg/dl | EXTERNAL | | | , Total, | | | LAB | | | External | | | | | + +-------+ + + + + + | Specimen | + + | Blood specimen | | (specimen) | + + + + | Resulting Agency Comment | + + | [facility] | + + + +---------+ + + | Performing | Address | City/State/Zipcode | Phone Number | | Organization | | | | + +---------+ + + | EXTERNAL LAB | | | | + +---------+ + + External Lab: Cholesterol, LDL (09/29/2016 10:36 PM PST) + +-------+ + + + | Component | Value | Ref Range | Performed | Pathologist | | | | | At | Signature | + +-------+ + + + | LDL | 61 | 100 | EXTERNAL | | | Cholesterol | | | LAB | | | , Direct, | | | | | | External | | | | | + +-------+ + + + + + | Specimen | + + | Blood specimen | | (specimen) | + + + + | Resulting Agency Comment | + + | [facility] | + + + +---------+ + + | Performing | Address | City/State/Zipcode | Phone Number | | Organization | | | | + +---------+ + + | EXTERNAL LAB | | | | + +---------+ + + External Lab: eGFR (09/29/2016 10:36 PM PST) + +--------+ + + + | Component | Value | Ref Range | Performed | Pathologist | | | | | At | Signature | + +--------+ + + + | eGFR, | 36 (A) | 60 - 999 | EXTERNAL | | | External | | | LAB | | + +--------+ + + + + + | Specimen | + + | Blood specimen | | (specimen) | + + + + | Resulting Agency Comment | + + | [facility] | + + + +---------+ + + | Performing | Address | City/State/Zipcode | Phone Number | | Organization | | | | + +---------+ + + | EXTERNAL LAB | | | | + +---------+ + + External Lab: Creatinine (09/29/2016 10:36 PM PST) + + + + + + | Component | Value | Ref Range | Performed | Pathologist | | | | | At | Signature | + + + + + + | Creatinine, | 1.85 (A) | 0.7 - 1.18 | EXTERNAL | | | External | | | LAB | | + + + + + + + + | Specimen | + + | Blood specimen | | (specimen) | + + + + | Resulting Agency Comment | + + | [facility] | + + + +---------+ + + | Performing | Address | City/State/Zipcode | Phone Number | | Organization | | | | + +---------+ + + | EXTERNAL LAB | | | | + +---------+ + + CBC with Differential (09/29/2016 10:33 AM PST) + +-------+ + + + | Component | Value | Ref Range | Performed | Pathologist | | | | | At | Signature | + +-------+ + + + | MCH | 31.0 | 26.0 - 33.0 pg | | | + +-------+ + + + | MCHC | 35.0 | 31.0 - 37.0 % | | | + +-------+ + + + | % Basophils | 0.4 | 0.0 - 2.0 % | | | + +-------+ + + + + + | Specimen | + + | Blood specimen | | (specimen) | + + Comprehensive Metabolic Panel (09/29/2016 10:33 AM PST) + +-------+ + + + | Component | Value | Ref Range | Performed | Pathologist | | | | | At | Signature | + +-------+ + + + | Anion Gap | 18 | 7 - 21 mmol/L | | | + +-------+ + + + | Bun/Creatin | 21.6 | 6 - 28.6 | | | | ine | | | | | + +-------+ + + + | Globulin | 2.3 | 1.8 - 3.5 g/dl | | | + +-------+ + + + | Albumin/Alayna | 1.8 | 1.1 - 2.4 | | | | bulin Ratio | | | | | + +-------+ + + + + + | Specimen | + + | Blood specimen | | (specimen) | + + Lipid Panel (09/29/2016 10:33 AM PST) + +--------+ + + + | Component | Value | Ref Range | Performed | Pathologist | | | | | At | Signature | + +--------+ + + + | VLDL | 47 (A) | 4 - 40 mg/dL | | | | Cholesterol | | | | | | Oli | | | | | + +--------+ + + + | Chol/HDL | 4.5 | 5.0 | | | | Ratio | | | | | + +--------+ + + + | Non-HDL | 108 | 130 mg/dL | | | | Cholesterol | | | | | + +--------+ + + + + + | Specimen | + + | Blood specimen | | (specimen) | + + documented in this encounter Visit Diagnoses Not on filedocumented in this encounter"
--- OUTSIDE RECORDS SUMMARY | ~2020-04-03 | XMS | Encounter Summary ---
Demographics + + + | Address | [address] | | | [place] [address] | + + + | Home Phone | | + + + | Preferred Language | Unknown | + + + | Marital Status | Single | + + + | Yarsanism Affiliation | Unknown | + + + | Race | Unknown | + + + | Ethnic Group | Unknown | + + + Author + + + | Author | [facility] | | | and [place] | + + + | Organization | [facility] | | | and [place] | + + + | Address | Unknown | + + + | Phone | Unavailable | + + + Support + + + + + | Name | Relationship | Address | Phone | + + + + + | Hi Dawn | ECON | [place] | | | | | [address] | | + + + + + | Atif Delgadillo | ECON | [place], [place] | | | | | [address] | | + + + + + | Caleb Dawn | ECON | Unknown | | + + + + + Care Team Providers + +------+ + | Care Experimental Psychologist Name | Role | Phone | + [...] NEPHROLOGY [address] | M, DO [address] | | | | | [address] | [place] | | | | | [place], [place] | [place] | | | | | [address] | [address] | | | | | [phone] | | | +--------+ + + + [...] Tdocumented in this encounter Plan of Treatment +--------+---------+ + + + | Date | Type | Specialty | Care Team | Description | +--------+---------+ + + + | 05/20/ | Office | Cardiology | Yumiko Del Valle, | | | 2019 | Visit | | MD Lupe [place] | | | | | | [place] | | | | | | [address] | | | | | | | | +--------+---------+ + + + documented as of this encounter Visit Diagnoses Not on filedocumented in this encounter"
--- OUTSIDE RECORDS SUMMARY | ~2020-04-03 | XMS | Encounter Summary ---
Demographics + + + | Address | [address] | | | [place] [address] | + + + | Home Phone | | + + + | Preferred Language | Unknown | + + + | Marital Status | Single | + + + | Episcopal Affiliation | Unknown | + + + [...] [place] | | | | | [address] | | + + + + + | Atif Delgadillo | ECON | [place], [place] | | | | | [address] | | + + + + + | Caleb Dawn | ECON | Unknown | | + + + + + Care Team Providers + +------+ + | Care Weatherseal Technician Name | Role | Phone | + +------+ + PCP | Unavailable | + +------+ + Encounter Details +--------+ + + + + | Date | Type | Department | Care Team | Description | +--------+ + + + + | 01/20/ | Orders Only | [facility] | Freddy Sanchez | Chronic kidney | | 2013 | | NEPHROLOGY [address] | M, DO [address] | disease, stage III | | | | [address] | [place] | (moderate) (Primary | | | | [place], [place] | [place], [place] | Dx); Hypertension | | | | [address] | [address] | | | | | [phone] | | | +--------+ + + + [...] | | 2020 | Visit | | MD [address]pe [place] | | | | | | [place] [address] [place], [place] | | | | | | [address] | | | | | | | [...]
--- OUTSIDE RECORDS SUMMARY | ~2020-04-03 | XMS | Encounter Summary ---
Demographics + + + | Address | [address] | | | [place] [address] | + + + | Home Phone | | + + + | Preferred Language | Unknown | + + + | Marital Status | Single | + + + | Samaritan Affiliation | Unknown | + + + | Race | Unknown | + + + | Ethnic Group | Unknown | + + + Author + + + | Author | [facility] | | | and [place] | + + + | Organization | [facility] | | | and [place] | + + + | Address | Unknown | + + + | Phone | Unavailable | + + + Support + + + + + | Name | Relationship | Address | Phone | + + + + + | Hi Dawn | ECON | [place] | | | | | [address] | | + + + + + | Atif Delgdaillo | ECON | [place], [place] | | | | | [address] | | + + + + + | Caleb Dawn | ECON | Unknown | | + + + + + Care Team Providers + +------+ + | Care Telephone Lineman Name | Role | Phone | + +------+ + PCP | Unavailable | + +------+ + Encounter Details +--------+ + + + + | Date | Type | Department | Care Team | Description | +--------+ + + + + | 02/28/ | Hospital | [facility] | Saad Ivan | | | 2001 | Encounter | MED [facility] SLEEP | MD Tom[address] | | | | | [place] [address] | [facility] | | | | | [place] | [place] [address] | | | | | [address] | [phone] | | | | | [phone] | | | +--------+ + + + [...] [place] | | | | | | [address] | | | | | | | | +--------+---------+ + + + documented as of this encounter Visit Diagnoses Not on filedocumented in this encounter"
--- OUTSIDE RECORDS SUMMARY | ~2020-04-03 | XMS | Encounter Summary ---
Demographics + + + | Address | [address] | | | [place] [address] | + + + | Home Phone | | + + + | Preferred Language | Unknown | + + + | Marital Status | Single | + + + | Temple Affiliation | Unknown | + + + | Race | Unknown | + + + | Ethnic Group | Unknown | + + + Author + + + | Author | [facility] | | | and [place] | + + + | Organization | [facility] | | | and [place] | + + + | Address | Unknown | + + + | Phone | Unavailable | + + + Support + + + + + | Name | Relationship | Address | Phone | + + + + + | Hi Dawn | ECON | [place] | | | | | [address] | | + + + + + | Atif Delgadillo | ECON | [place], [place] | | | | | [address] | | + + + + + | Caleb Dawn | ECON | Unknown | | + + + + + Care Team Providers + +------+ + | Care Supercalender Operator Helper Name | Role | Phone | + +------+ + PCP | Unavailable | + +------+ + Encounter Details +--------+ + + + + | Date | Type | Department | Care Team | Description | +--------+ + + + + | 11/22/ | Documentati | [facility] | Freddy Sanchez | | | 2013 | on | NEPHROLOGY [address] | M, DO [address] [place] | | | | | [facility] [address] | [place], [facility] 100 | | | | | [place] | [place] | | | | | [address] | [address] | | | | | [phone] | | | +--------+ + + + [...] documented as of this encounter Progress Notes Imani Whitney RN - 11/22/2013 9:41 AM PSTLabs for nephrology appt on 01/06/14 (moved fr om 11/25/12) sent to [facility] documented in this encounter Plan of Treatment +--------+---------+ + + + | Date | Type | Specialty | Care Team | Description | +--------+---------+ + + + | 05/20/ | Office | Cardiology | Yumiko Del Valle, | | | 2019 | Visit | | MD Lupe TYLER | | | | | | [place] | | | | | | [address] | | | | | | | | +--------+---------+ + + + documented as of this encounter Visit Diagnoses Not on filedocumented in this encounter"
--- OUTSIDE RECORDS SUMMARY | ~2020-04-03 | XMS | Encounter Summary ---
Demographics + + + | Address | [address] | | | [place] [address] | + + + | Home Phone [...] [place] | | | | | [address] | | + + + + + | Atif Delgadillo | ECON | [place], [place] | | | | | [address] | | + + + + + | Caleb Dawn | ECON | Unknown | | + + + + + Care Team Providers + +------+ + | Care Transport Analyst Name | Role | Phone | + +------+ + PCP | Unavailable | + +------+ + Encounter Details +--------+ + + + + | Date | Type | Department | Care Team | Description | +--------+ + + + + | 12/29/ | Hospital | [facility] | Saad Ivan | | | 1994 | Encounter | MED CTR SLEEP | MD Tomás [address] | | | | | [address] [address] [place] | [place] [facility] | | | | | [place] | [place] [address] | | | | | [address] | [phone] | | | | | [phone] | | | +--------+ + + + [...] [place] | | | | | | [address] | | | | | | | | +--------+---------+ + + + documented as of this encounter Visit Diagnoses Not on filedocumented in this encounter"
--- OUTSIDE RECORDS SUMMARY | ~2020-04-03 | XMS | Encounter Summary ---
Demographics + + + | Address | [address] | | | [place] [address] | + + + | Home Phone [...] + + + | Author | [facility] | | | and [place] | + + + | Organization | [facility] | | | and [place] | + + + | Address | Unknown | + + + | Phone | Unavailable | + + + Support + + + + + | Name | Relationship | Address | Phone | + + + + + | Hi Dawn | ECON | [place] | | | | | [address] | | + + + + + | Atif Delgadillo | ECON | [place] | | | | | [address] | | + + + + + | Caleb Dawn | ECON | Unknown | | + + + + + Care Team Providers + +------+ + | Care Environmental Services Tech Name | Role | Phone | + [...] | kidney | MD [address] | | | | | disease, | [place] | [place], [place] | | | | | stage 3 | [place] [address] | [address] | | | | | (moderate) | [place] | [place] | | | | | (HCC) | [place] | [address] Phone: | | | | | Hypertension | [address] | [phone] | | | | | , essential | Phone: | Fax: | | | | | Type 2 | [phone] | [phone] | | | | | diabetes | Fax: | | | | | | mellitus | [phone] | | | | | | with stage 3 | | | | | | | chronic | | | | | | | kidney | | | | | | | disease | | | | | | | (HCC) | | | | | | | Procedures | | | | | | | [place] OFFICE | | | | | | | OUTPATIENT | | | | | | | VISIT 25 | | | | | | | MINUTES | | | +--------+--------+ + + + + Encounter Details +--------+ + + + + | Date | Type | Department | Care Team | Description | +--------+ + + + + | 02/26/ | Off-Site | [facility] | Freddy Sanchez | Type 2 diabetes | | 2018 | Visit | NEPHROLOGY [address] | M, DO [address] | mellitus with stage | | | | [address] | [place], [place] [address] | 3 chronic kidney | | | | [place], [place] | [place], [place] | disease, without | | | | [address] | [address] | long-term current | | | | [phone] | | use of insulin (HCC) | | | | | | (Primary Dx); | | | | | | Secondary | | | | | | hyperparathyroidism | | | | | | of renal origin | | | | | | (HCC); Chronic | | | | | | kidney disease, | | | | | | stage III | | | | | | (moderate); | | | | | | Essential | | | | | | hypertension with | | | | | | goal blood pressure | | | | | | less than 130/80 | +--------+ + + + + Social [...] + + + | Blood Pressure | 162/80 | 02/26/2018 2:22 PM | | | | | PDT | | + + + + + | Pulse | - | - | | + + + + + | Temperature | 37.1 C (98.8 F) | 02/26/2018 2:22 PM | | | | | PDT [...] + + + + | Weight | 132 kg (291 lb 0.1 | 02/26/2018 2:22 PM | | | | oz) | PDT | | + + + + + | Height | - | - | | + + + + + | Body Mass Index | 38.39 | 01/31/2018 3:17 PM | | | | | PDT | | + + + + + documented in this encounter Progress Notes Freddy Sanchez DO - 02/26/2018 2:00 PM PDT Subjective: NEPHROLOGY Patient ID: Steve Tanner is a 72 y.o. male. HPI Comments: Follow up for this very pleasant, 72 YOWM with CKD secondary to Type 2 DM. He also has a history of a remote DU, 2013, hypertension, hyperlipidemia, DJD of knees, SHPTH, ASCVD, s/p left CEA, 2005, anemia secondary to CKD, gout, and Type 2 DM. He is still very cognizant of walking, eating well, controlling his portions, and restricti ng his salt intake. He denies edema, SOB, chest pain, or claudication. He states that basi deepti he walks daily for exercise. He states that his Manager Target felt that his Hba1c w as too tightly controlled , therefore, his glimepiride was DC'd. Outpatient Prescriptions Marked as Taking for the 02/26/18 encounter (Off-Site Visit) with Roxana Sanchez DO Medication Sig Dispense Refill allopurinol [...] MOUTH TWICE A DAY 60 tablet 6 [DISCONTINUED] glimepiride (AMARYL) 1 mg tablet Take 1 mg by mouth every morning (befor e breakfast). Linagliptin (TRADJENTA) 5 MG TABS Take 5 mg by mouth Daily. liraglutide (VICTOZA) 18 mg/3 mL injection Inject 1.2 mg under the skin Daily. 11 loratadine-pseudoePHEDrine (CLARITIN-D 12 HOUR) 5-120 mg per tablet Take 1 tablet by mo uth as needed. losartan (COZAAR) 25 mg tablet Take 1 tablet by mouth Daily. 90 tablet 4 mometasone (ELOCON) 0.1 % cream Apply topically Daily. [place]-3 Fatty Acids (FISH OIL) 1200 MG CAPS Take 1,200 mg by mouth 2 times daily. rosuvastatin (CRESTOR) 5 MG tablet Take 5 mg by mouth Three times a week. terbinafine (LAMISIL) 250 MG tablet Take 250 mg by mouth Daily. For 90 days, then, off for 90 days. Allergies Allergen Reactions Lisinopril Other (See Comments) Cough Penicillins Rash Objective: BP 162/80 | Temp 37.1 C (98.8 F) | Wt 132 kg (291 lb 0.1 oz) | BMI 36.37 kg/m Physical Exam Heart: Regular rate and rhythm, with no S3, S4, murmur or rub. Lungs: CTA in all linton. No rales or wheezes. Abdomen: Soft, obese, normoactive bowel sounds. Extremities: trace edema, no clubbing, or cyanosis. Lab Results Component Value Date NAEX 141 02/22/2018 KEX 4.2 02/22/2018 CLEX 102 02/22/2018 CO2EX 25 02/22/2018 BUNEX 57 (A) 02/22/2018 CREEX 2.41 (A) 02/22/2018 EGFREX 26 02/22/2018 GLUEX 130 (A) 02/22/2018 PHOSEX 4.2 10/03/2017 PTHEX 131 02/22/2018 FXS0NSJ 6.9 02/22/2018 Lab Results Component Value Date WBCEX 6 02/22/2018 HGBEX 13.1 (A) 02/22/2018 HCTEX 39.1 (A) 02/22/2018 PLTEX 128 (A) 02/22/2018 Assessment: 1. CKD Stage 3, secondary to diabetic glomerulosclerosis and HTN-- his GFR is roughly s table. 2. Hypertension-- BP modestly increased today, but he states is lower on his home readings ? 3. Type 2 DM-- good control still overall. 4. SHPTH-- his PTH is improving. 5. 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 6. ASCVD/ s/p left CEA, 2005--stable. 7. Hyperlipidemia--on statin Rx. 8. Gout-- in remission. Plan: 1. I reviewed with Dr. Tanner his lab, Scr and HbA1c. 2. He appears somewhat volume expanded, and with the today's BP will have him increase his lasix to 80 mg, BID x 4 days, then, back to 40 mg, BID after that. 3. Will continue the losartan for its renoprotective effects. Will attempt to target his BP < 130/80 mmHg it network architect. 4. Will plan to see him back in 4 mo. at the [facility] at [place], [place]. He will have a CBC, CMP, PO4, HbA1c, iPTH, spot Urine Pro/Cr ratio one week prior to that. : Anoop Moyer MD, PhD Winsome Crowder MD, [place], [place] Matheus Gregory MD, [place] , [place] documented in th is encounter Plan of Treatment +--------+---------+ + + + | Date | Type | Specialty | Care Team | Description | +--------+---------+ + + + | 05/20/ | Office | Cardiology | Yumiko Del Valle, | | | 2019 | Visit | | MD Lupe TYLER | | | | | | [place] | | | | | | [id number] | | | | | | | | +--------+---------+ + + + documented as of this encounter Procedures + +--------+ + + + | Procedure Name | Priori | Date/Time | Associated Diagnosis | Comments | | | ty | | | | + +--------+ + + + | EXTERNAL LAB: PTH, | Routin | 02/22/2018 | Secondary | Results for this | | INTACT | e | | hyperparathyroidism | procedure are in the | | | | | of renal origin | results section. | | | | | (HCC) Chronic | | | | | | kidney disease, | | | | | | stage III (moderate) | | | | | | Type 2 diabetes | | | | | | mellitus with stage | | | | | | 3 chronic kidney | | | | | | disease, without | | | | | | long-term current | | | | | | use of insulin (HCC) | | | | | | Essential | | | | | | hypertension with | | | | | | goal blood pressure | | | | | | less than 130/80 | | + +--------+ + + + | EXTERNAL LAB: | Routin | 02/22/2018 | Secondary | Results for this | | HEMOGLOBIN A1C | e | | hyperparathyroidism | procedure are in the | | | | | of renal origin | results section. | | | | | (HCC) Chronic | | | | | | kidney disease, | | | | | | stage III (moderate) | | | | | | Type 2 diabetes | | | | | | mellitus with stage | | | | | | 3 chronic kidney | | | | | | disease, without | | | | | | long-term current | | | | | | use of insulin (HCC) | | | | | | Essential | | | | | | hypertension with | | | | | | goal blood pressure | | | | | | less than 130/80 | | + +--------+ + + + | LABS - EXTERNAL SCAN | | 02/22/2018 | | Results for this | | | | 12:00 AM | | procedure are in the | | | | PDT | | results section. | + +--------+ + + + documented in this encounter Results LABS - EXTERNAL SCAN (02/22/2018 12:00 AM PDT) + + + | Narrative | Performed At | + + + | Ordered by an | | | unspecified provider. | | + + + External Lab: Hemoglobin A1c (02/22/2018) + +-------+ + + + | Component | Value | Ref Range | Performed | Pathologist | | | | | At | Signature | + +-------+ + + + | Hemoglobin | 6.9 | % | | | | A1c, | | | | | | external | | | | | + +-------+ + + + + + | Specimen | + + | Blood | + + External Lab: PTH, Intact (02/22/2018) + +-------+ + + + | Component | Value | Ref Range | Performed | Pathologist | | | | | At | Signature | + +-------+ + + + | PTH Intact, | 131 | | | | | External | | | | | + +-------+ + + + + + | Specimen | + + | | + + documented in this encounter Visit Diagnoses + + | Diagnosis | + + | Type 2 diabetes mellitus with stage 3 chronic kidney disease, without long-term | | current use of insulin (HCC) - Primary | + + | Secondary hyperparathyroidism of renal origin (HCC) Secondary hyperparathyroidism (of | | renal origin) | + + | Chronic kidney disease, stage III (moderate) (HCC) Chronic kidney disease, Stage III | | (moderate) | + + | Essential hypertension with goal blood pressure less than 130/80 | + + documented in this encounter"
--- OUTSIDE RECORDS SUMMARY | ~2020-04-03 | XMS | Encounter Summary ---
Demographics + + + | Address | [address] | | | [place] [address] | + + + | Home Phone | | + + + | Preferred Language | Unknown | + + + | Marital Status | Single | + + + | Protestant Affiliation | Unknown | + + + | Race | Unknown | + + + | Ethnic Group | Unknown | + + + Author + + + | Author | [facility] | | | and [place] | + + + | Organization | [facility] | | | and [place] | + + + | Address | Unknown | + + + | Phone | Unavailable | + + + Support + + + + + | Name | Relationship | Address | Phone | + + + + + | Hi Dawn | ECON | [place] | | | | | [address] | | + + + + + | Atif Delgadillo | ECON | [place] | | | | | [address] | | + + + + + | Caleb Dawn | ECON | Unknown | | + + + + + Care Team Providers + +------+ + | Care Power Plant Supervisor Name | Role | Phone | [...] SHERRILL VALDEZ | | | | | [facility] [place] | [place] [address] | | | | | [address] | [phone] | | | | | [phone] | | | +--------+ + + + [...] [place] | | | | | | [address] | | | | | | | [...] MV A Jordon: 0.82 m/s MV Dec [place]: 4.31 m/s2 MV | | | DecT: [...] TR Vmax: 2.64 m/s | | | Real Estate Underwriter: TATUM Authenticated by: Yumiko Del Valle Report | | | Date/Time: 05-12-2018 7:33:45 [...] cmLVIDd: 5.41 cmLVPWd: 1.10 cmLVOT Area: 4.72 [id number] Diam: | | 2.45 cm%FS: 40.73 %EF(Teich): [...] (A-L): 29.02 | | ml/m2LAAs A2C: 19.45 [id number] A-L A2C: 61.97 mlLALs A2C: 5.18 cmLAAs A4C: 23.50 | | [id number] A-L A4C: 88.44 mlLALs A4C: 5.30 cmRAAs: 20.57 [id number] A-L: 67.40 | | mlRAESV MOD: 63.69 mlRALs: 5.32 cmTAPSE: 2.43 cmAV maxP.21 mmHgAV meanPG: | | 2.78 mmHgAV Vmax: 1.24 m/[place]on Vmean: 0.77 m/[place] VTI: 26.17 cmAVA Vmax: 3.51 | | cm2AVA (VTI): 4.30 cp1AQHF (Vmax): 0.00 cm2/m2AVAI (VTI): 0.00 cm2/m2LVOT maxPG: | | 3.42 mmHgLVOT meanP.71 mmHgLVSI Dopp: 43.63 ml/m2LVSV Dopp: 112.56 mlLVOT | | Vmax: 0.92 m/sLVOT Vmean: 0.60 m/sLVOT VTI: 23.80 cmMV A Jordon: 0.82 m/sMV Dec | | [place]: 4.31 m/s2MV DecT: 185.71 msMV E Jordon: 0.80 m/sMV E/A Ratio: 0.96MV PHT: | | 53.85 msMVA By PHT: 4.08 jr2Nnseve e': 0.05 m/sSeptal E/e': 15.59Lateral e': | | 0.08 m/sLateral E/e': 9.90PV maxP.24 mmHgPV Vmax: 0.55 m/sRAP: 5 mmHgRVSP: | | 32.98 mmHgTR maxP.98 mmHgTR Vmax: 2.64 m/s Real Estate Underwriter: DBSAuthenticated by: | | [facility] Date/Time: 05-12-2018 7:33:45 IMPRESSION: 1. The [...] A Jordon: 0.82 m/s | |MV Dec [place]: 4.31 m/s2 | |MV DecT: 185.71 ms [...] |TR Vmax: 2.64 m/s | | | |Real Estate Underwriter: DBS | |Authenticated by: Yumiko eDl Valle | |Report Date/Time: 05-12-2018 7:33:45 | [...]
--- OUTSIDE RECORDS SUMMARY | ~2020-04-03 | XMS | Encounter Summary ---
Demographics + + + | Address | [address] | | | [place] [address] | + + + | Home Phone | | + + + | Preferred Language | Unknown | + + + | Marital Status | Single | + + + | Christianity Affiliation | Unknown | + + + | Race | Unknown | + + + | Ethnic Group | Unknown | + + + Author + + + | Author | [facility] | | | and [place] | + + + | Organization | [facility] | | | and [place] | + + + | Address | Unknown | + + + | Phone | Unavailable | + + + Support + + + + + | Name | Relationship | Address | Phone | + + + + + | Hi Dawn | ECON | [place] | | | | | [address] | | + + + + + | Atif Delgadillo | ECON | [place], [place] | | | | | [address] | | + + + + + | Caleb Dawn | ECON | Unknown | | + + + + + Care Team Providers + +------+ + | Care Urologist Md Name | Role | Phone | + +------+ + PCP | Unavailable | + +------+ + Reason for Visit + + + | Reason | Comments | + + + | Medication Question | | + + + Encounter Details +--------+ + + + + | Date | Type | Department | Care Team | Description | +--------+ + + + + | 07/07/ | Telephone | [facility] | Freddy Sanchez | Medication Question | | 2017 | | NEPHROLOGY [address] | M, DO [address] [place] | | | | | [address] [facility] [address] | [place], [facility] [address] | | | | | [place], [place] | [place] | | | | | [address] | [address] | | | | | [phone] | | | +--------+ + + + [...] [place] | | | | | | [address] | | | | | | | | +--------+---------+ + + + documented as of this encounter Visit Diagnoses Not on filedocumented in this encounter"
--- OUTSIDE RECORDS SUMMARY | ~2020-04-03 | XMS | Encounter Summary ---
Demographics + + + | Address | [address] | | | [place] [address] | + + + | Home Phone | | + + + | Preferred Language | Unknown | + + + | Marital Status | Single | + + + | Islam Affiliation | Unknown | + + + | Race | Unknown | + + + | Ethnic Group | Unknown | + + + Author + + + | Author | [facility] | | | and [place] | + + + | Organization | [facility] | | | and [place] | + + + | Address | Unknown | + + + | Phone | Unavailable | + + + Support + + + + + | Name | Relationship | Address | Phone | + + + + + | Hi Dawn | ECON | [place] | | | | | [address] | | + + + + + | Atif Delgadillo | ECON | [place], [place] | | | | | [address] | | + + + + + | Caleb Dawn | ECON | Unknown | | + + + + + Care Team Providers + +------+ + | Care Phlebotomy Program Coordinator Name | Role | Phone | + +------+ + PCP | Unavailable | + +------+ + Encounter Details +--------+ + + + + | Date | Type | Department | Care Team | Description | +--------+ + + + + | 02/02/ | Abstract | [facility] | Freddy Sanchez | | | 2014 | | NEPHROLOGY [address] | M, DO [address] | | | | | [address] | [place] | | | | | [place], [place] | [place] | | | | | [address] | [address] | | | | | [phone] | | | +--------+ + + + [...] | | | | | [place] [place], [place] | | | | | | [address] | | | | | | | | +--------+---------+ + + + documented as of this encounter Procedures + +--------+ + + + | Procedure Name | Priori | Date/Time | Associated Diagnosis | Comments | | | ty | | | | + +--------+ + + + | EXTERNAL LAB: FATOUMATA | Routin | 01/30/2015 | | Results for this | | | e | | | procedure are in the | | | | | | results section. | + +--------+ + + + | EXTERNAL LAB: | Routin | 01/30/2015 | | Results for this | | GLUCOSE | e | | | procedure are in the | | | | | | results section. | + +--------+ + + + | EXTERNAL LAB: PSA | Routin | 01/30/2015 | | Results for this | | | e | | | procedure are in the | | | | | | results section. | + +--------+ + + + | EXTERNAL LAB: URIC | Routin | 01/30/2015 | | Results for this | | ACID | e | | | procedure are in the | | | | | | results section. | + +--------+ + + + | EXTERNAL LAB: ALT | Routin | 01/30/2015 | | Results for this | | | e | | | procedure are in the | | | | | | results section. | + +--------+ + + + | EXTERNAL LAB: AST | Routin | 01/30/2015 | | Results for this | | | e | | | procedure are in the | | | | | | results section. | + +--------+ + + + | EXTERNAL LAB: | Routin | 01/30/2015 | | Results for this | | ALKALINE PHOSPHATASE | e | | | procedure are in the | | | | | | results section. | + +--------+ + + + | EXTERNAL LAB: | Routin | 01/30/2015 | | Results for this | | BILIRUBIN, TOTAL | e | | | procedure are in the | | | | | | results section. | + +--------+ + + + | EXTERNAL LAB: | Routin | 01/30/2015 | | Results for this | | ALBUMIN | e | | | procedure are in the | | | | | | results section. | + +--------+ + + + | EXTERNAL LAB: | Routin | 01/30/2015 | | Results for this | | PROTEIN, TOTAL | e | | | procedure are in the | | | | | | results section. | + +--------+ + + + | EXTERNAL LAB: | Routin | 01/30/2015 | | Results for this | | CALCIUM | e | | | procedure are in the | | | | | | results section. | + +--------+ + + + | EXTERNAL LAB: CARBON | Routin | 01/30/2015 | | Results for this | | DIOXIDE | e | | | procedure are in the | | | | | | results section. | + +--------+ + + + | EXTERNAL LAB: | Routin | 01/30/2015 | | Results for this | | CHLORIDE | e | | | procedure are in the | | | | | | results section. | + +--------+ + + + | EXTERNAL LAB: | Routin | 01/30/2015 | | Results for this | | POTASSIUM | e | | | procedure are in the | | | | | | results section. | + +--------+ + + + | EXTERNAL LAB: SODIUM | Routin | 01/30/2015 | | Results for this | | | e | | | procedure are in the | | | | | | results section. | + +--------+ + + + | EXTERNAL LAB: | Routin | 01/30/2015 | | Results for this | | URINALYSIS | e | | | procedure are in the | | | | | | results section. | + +--------+ + + + | EXTERNAL LAB: CBC | Routin | 01/30/2015 | | Results for this | | | e | | | procedure are in the | | | | | | results section. | + +--------+ + + + | EXTERNAL LAB: | Routin | 01/30/2015 | | Results for this | | TRIGLYCERIDES | e | | | procedure are in the | | | | | | results section. | + +--------+ + + + | EXTERNAL LAB: | Routin | 01/30/2015 | | Results for this | | CHOLESTEROL, HDL | e | | | procedure are in the | | | | | | results section. | + +--------+ + + + | EXTERNAL LAB: | Routin | 01/30/2015 | | Results for this | | CHOLESTEROL, TOTAL | e | | | procedure are in the | | | | | | results section. | + +--------+ + + + | EXTERNAL LAB: | Routin | 01/30/2015 | | Results for this | | CHOLESTEROL, LDL | e | | | procedure are in the | | | | | | results section. | + +--------+ + + + | EXTERNAL LAB: EGFR | Routin | 01/30/2015 | | Results for this | | | e | | | procedure are in the | | | | | | results section. | + +--------+ + + + | EXTERNAL LAB: | Routin | 01/30/2015 | | Results for this | | CREATININE | e | | | procedure are in the | | | | | | results section. | + +--------+ + + + | HEMOGLOBIN A1C | Routin | 01/30/2015 | | Results for this | | | e | | | procedure are in the | | | | | | results section. | + +--------+ + + + documented in this encounter Results Hemoglobin A1C (01/30/2015) + +-------+ + + + | Component | Value | Ref Range | Performed | Pathologist | | | | | At | Signature | + +-------+ + + + | Hemoglobin | 5.3 | % | EXTERNAL | | | [...] | + +---------+ + + External Lab: FATOUMATA (01/30/2015) + +--------+ + + + | Component | Value | Ref Range | Performed | Pathologist | | | | | At | Signature | + +--------+ + + + | FATOUMATA, | 37 (A) | 6 - 23 | EXTERNAL [...] + +---------+ + + External Lab: Glucose (01/30/2015) + +---------+ + + + | Component | Value | Ref Range | Performed | Pathologist | | | | | At | Signature | + +---------+ + + + | Glucose, | 128 (A) | 70 - 100 | EXTERNAL [...] | + +---------+ + + External Lab: PSA (01/30/2015) + +-------+ + + + | Component | Value | Ref Range | Performed | Pathologist | | | | | At | Signature | + +-------+ + + + | PSA, | 0.955 | | EXTERNAL | | | External [...] +---------+ + + External Lab: Uric Acid (01/30/2015) + +-------+ + + + | Component | Value | Ref Range | Performed | Pathologist | | | | | At | Signature | + +-------+ + + + | Uric Acid, | 5.9 | 4.4 - 7.6 | EXTERNAL | [...] + +---------+ + + External Lab: ALT (01/30/2015) + +-------+ + + + | Component | Value | Ref Range | Performed | Pathologist | | | | | At | Signature | + +-------+ + + + | ALT, | 16 | 7 - 52 | EXTERNAL | [...] + +---------+ + + External Lab: AST (01/30/2015) + +-------+ + + + | Component | Value | Ref Range | Performed | Pathologist | | | | | At | Signature | + +-------+ + + + | AST, | 14 | 13 - 39 | EXTERNAL | [...] +---------+ + + External Lab: Alkaline Phosphatase (01/30/2015) + +-------+ + + + | Component | Value | Ref Range | Performed | Pathologist | | | | | At | Signature | + +-------+ + + + | ALP, | 56 | 30 - 128 | EXTERNAL | [...] +---------+ + + External Lab: Bilirubin, Total (01/30/2015) + +-------+ + + + | Component [...] + +---------+ + + External Lab: Albumin (01/30/2015) + +-------+ + + + | Component [...] +---------+ + + External Lab: Protein, Total (01/30/2015) + +-------+ + + + | Component | Value | Ref Range | Performed | Pathologist | | | | | At | Signature | + +-------+ + + + | Protein, | 6.3 | 6 - 8 | EXTERNAL | [...] + +---------+ + + External Lab: Calcium (01/30/2015) + +-------+ + + + | Component [...] +---------+ + + External Lab: Carbon Dioxide (01/30/2015) + +-------+ + + + | Component | Value | Ref Range | Performed | Pathologist | | | | | At | Signature | + +-------+ + + + | Carbon | 26 | 19 - 31 | EXTERNAL | [...] + +---------+ + + External Lab: Chloride (01/30/2015) + +-------+ + + + | Component | Value | Ref Range | Performed | Pathologist | | | | | At | Signature | + +-------+ + + + | Chloride, | 102 | 95 - 112 | EXTERNAL | [...] + +---------+ + + External Lab: Potassium (01/30/2015) + +-------+ + + + | Component [...] + +---------+ + + External Lab: Sodium (01/30/2015) + +-------+ + + + | Component | Value | Ref Range | Performed | Pathologist | | | | | At | Signature | + +-------+ + + + | Sodium, | 139 | 132 - 143 | EXTERNAL | [...] + +---------+ + + External Lab: Urinalysis (01/30/2015) + + + + + + | [...] + + + | UA Ph, | 6 | | EXTERNAL | | | External | | | LAB | | + + + + + + | UA | Negative | | EXTERNAL | | | Proteins, | | | LAB | | | External | | | | | + + + + + + | UA RBC, | 0 | | EXTERNAL | | | External | | | LAB | | + + + + + + | UA Specific | 1.009 | | EXTERNAL | | | [place], | | | LAB | | | External | | | | | + + + + + + | UA | Negative | | EXTERNAL | | | Leukocyte | | | LAB | | | Esterase, | | | | | | External [...] + +---------+ + + External Lab: CBC (01/30/2015) + + + + + + | Component | Value | Ref Range | Performed | Pathologist | | | | | At | Signature | + + + + + + | WBC, | 5.3 | 4.5 - 11 | EXTERNAL | | | External | | | LAB | | + + + + + + | HGB, | 12.4 (A) | 13.5 - 18 | EXTERNAL | | | External | | | LAB | | + + + + + + | HCT, | 36.6 (A) | 41 - 50 | EXTERNAL | | | External | | | LAB | | + + + + + + | PLT, | 133 (A) | 140 - 440 | EXTERNAL | | | External | | | LAB | | + + + + + + | Neutrophils | 70.9 | 39 - 80 | EXTERNAL | | | %, | | | LAB | | | External | | | | | + + + + + + | Lymphocytes | 16.7 (A) | 24 - 44 | EXTERNAL | | | %, | | | LAB | | | External | | | | | + + + + + + | Monocytes | 8.1 | 0 - 12 | EXTERNAL | | | %, External | | | LAB | | + + + + + + | Eosinophils | 3.7 | 0 - 6 | EXTERNAL | | | %, | | | LAB | | | External | | | | | + + + + + + | RBC, | 3.93 (A) | 4.3 - 5.7 | EXTERNAL | | | External | | | LAB | | + + + + + + | MCV, | 93 | 81 - 99 | EXTERNAL | | | External | | | LAB | | + + + + + + | RDW, | 15.1 (A) | 10.5 - 15 | EXTERNAL [...] + +---------+ + + External Lab: Triglycerides (01/30/2015) + +-------+ + + + | Component | Value | Ref Range | Performed | Pathologist | | | | | At | Signature | + +-------+ + + + | Triglycerid | 147 | 30 - 150 | EXTERNAL | [...] +---------+ + + External Lab: Cholesterol, HDL (01/30/2015) + + + + + + | [...] +---------+ + + External Lab: Cholesterol, Total (01/30/2015) + +-------+ + + + | Component | Value | Ref Range | Performed | Pathologist | | | | | At | Signature | + +-------+ + + + | Cholesterol | 114 | 200 | EXTERNAL | | | [...] +---------+ + + External Lab: Cholesterol, LDL (01/30/2015) + +-------+ + + + | Component | Value | Ref Range | Performed | Pathologist | | | | | At | Signature | + +-------+ + + + | LDL | 55 | 100 | EXTERNAL | | | [...] + +---------+ + + External Lab: eGFR (01/30/2015) + +-------+ + + + | Component [...] + +---------+ + + External Lab: Creatinine (01/30/2015) + + + + + + | Component | Value | Ref Range | Performed | Pathologist | | | | | At | Signature | + + + + + + | Creatinine, | 2.09 (A) | 0.7 - 1.18 | EXTERNAL [...]
--- OUTSIDE RECORDS SUMMARY | ~2020-04-03 | XMS | Encounter Summary ---
Demographics + + + | Address | [address] | | | [place] [address] | + + + | Home Phone | | + + + | Preferred Language | Unknown | + + + | Marital Status | Single | + + + | Oriental Orthodox Affiliation | Unknown | + + + | Race | Unknown | + + + | Ethnic Group | Unknown | + + + Author + + + | Author | [facility] | | | and [place] | + + + | Organization | [facility] | | | and [place] | + + + | Address | Unknown | + + + | Phone | Unavailable | + + + Support + + + + + | Name | Relationship | Address | Phone | + + + + + | Hi Dawn | ECON | [place] | | | | | [address] | | + + + + + | Atif Delgadillo | ECON | [place], [place] | | | | | [address] | | + + + + + | Caleb Dawn | ECON | Unknown | | + + + + + Care Team Providers + +------+ + | Care Pigs Feet Cleaner Name | Role | Phone | + +------+ + PCP | Unavailable | + +------+ + Encounter Details +--------+ + + + + | Date | Type | Department | Care Team | Description | +--------+ + + + + | 01/16/ | Hospital | [facility] | | | | 2006 | Encounter | MED CTR XRAY [address] | | | | | | [address] | | | | | | [place] [address] | | | | | | [phone] | | | +--------+ + + + [...] [place] | | | | | | [id number] | | | | | | | | +--------+---------+ + + + documented as of this encounter Visit Diagnoses Not on filedocumented in this encounter"
--- OUTSIDE RECORDS SUMMARY | ~2020-04-03 | XMS | Encounter Summary ---
Demographics + + + | Address | [address] | | | [place] [address] | + + + | Home Phone | | + + + | Preferred Language | Unknown | + + + | Marital Status | Single | + + + | Holiness Affiliation | Unknown | + + + | Race | Unknown | + + + | Ethnic Group | Unknown | + + + Author + + + | Author | [facility] | | | and [place] | + + + | Organization | [facility] | | | and [place] | + + + | Address | Unknown | + + + | Phone | Unavailable | + + + Support + + + + + | Name | Relationship | Address | Phone | + + + + + | Hi Dawn | ECON | [place] | | | | | [address] | | + + + + + | Atif Delgadillo | ECON | [place], [place] | | | | | [address] | | + + + + + | Caleb Dawn | ECON | Unknown | | + + + + + Care Team Providers + +------+ + | Care Senior Power Scheduler Name | Role | Phone | + +------+ + PCP | Unavailable | + +------+ + Encounter Details +--------+ + + + + | Date | Type | Department | Care Team | Description | +--------+ + + + + | 01/22/ | Hospital | [facility] | | | | 2006 | Encounter | MED CTR LABORATORY | | | | | | [address] | | | | | | [place] | | | | | | [address] | | | | | | [phone] | | | +--------+ + + + [...] [place] | | | | | | [id number] | | | | | | | | +--------+---------+ + + + documented as of this encounter Visit Diagnoses Not on filedocumented in this encounter"
--- OUTSIDE RECORDS SUMMARY | ~2020-04-03 | XMS | Encounter Summary ---
Demographics + + + | Address | [address] | | | [place] [address] | + + + | Home Phone | | + + + | Preferred Language | Unknown | + + + | Marital Status | Single | + + + | Baptism Affiliation | Unknown | + + + | Race | Unknown | + + + | Ethnic Group | Unknown | + + + Author + + + | Author | [facility] | | | and [place] | + + + | Organization | [facility] | | | and [place] | + + + | Address | Unknown | + + + | Phone | Unavailable | + + + Support + + + + + | Name | Relationship | Address | Phone | + + + + + | Hi Dawn | ECON | [place] | | | | | [address] | | + + + + + | Atif Delgadillo | ECON | [place], [place] | | | | | [address] | | + + + + + | Caleb Dawn | ECON | Unknown | | + + + + + Care Team Providers + +------+ + | Care Vocal Music Teacher Name | Role | Phone | + +------+ + PCP | Unavailable | + +------+ + Encounter Details +--------+ + + + + | Date | Type | Department | Care Team | Description | +--------+ + + + + | 06/06/ | Orders Only | [facility] | Freddy Sanchez | Type 2 diabetes | | 2017 | | NEPHROLOGY [address] | M, DO [address] | mellitus with stage | | | | [address] | [place] | 3 chronic kidney | | | | [place], [place] | [place], [place] | disease, without | | | | [address] | [id number] | long-term current | | | | [phone] | | use of insulin (HCC) | | | | | | (Primary Dx); | | | | | | Chronic kidney | | | | | | disease, stage III | | | | | | (moderate); | | | | | | Hyperlipidemia, | | | | | | mixed; Secondary | | | | | | hyperparathyroidism | | | | | | of renal origin | | | | | | (HCC) | +--------+ + + + + Social [...] + documented as of this encounter Progress Imani Springer RN - 06/06/2017 9:59 AM [facility] for upcoming nephrology appointment sent to: [facility] documented in this encounter Plan of Treatment +--------+---------+ + + + | Date | Type | Specialty | Care Team | Description | +--------+---------+ + + + | 05/20/ | Office | Cardiology | Yumiko Del Valle, | | | 2019 | Visit | | [address] | | | | | | [place] | | | | | | [address] | | | | | | | | +--------+---------+ + + + documented as of this encounter Visit Diagnoses + + | Diagnosis | + + | Type 2 diabetes mellitus with stage 3 chronic kidney disease, without long-term | | current use of insulin (HCC) - Primary | + + | Chronic kidney disease, stage III (moderate) (HCC) Chronic kidney disease, Stage III | | (moderate) | + + | Hyperlipidemia, mixed Mixed hyperlipidemia | + + | Secondary hyperparathyroidism of renal origin (HCC) Secondary hyperparathyroidism (of | | renal origin) | + + documented in this encounter"
--- OUTSIDE RECORDS SUMMARY | ~2020-04-03 | XMS | Encounter Summary ---
Demographics + + + | Address | [address] | | | [place] [address] | + + + | Home Phone | | + + + | Preferred Language | Unknown | + + + | Marital Status | Single | + + + | Voodoo Affiliation | Unknown | + + + [...] [place] | | | | | [address] | | + + + + + | Atif Delgadillo | ECON | [place], [place] | | | | | [address] | | + + + + + | Caleb Dawn | ECON | Unknown | | + + + + + Care Team Providers + +------+ + | Care Division Chair Name | Role | Phone | + +------+ + PCP | Unavailable | + +------+ + Reason for Visit + + + | Reason | Comments | + + + | Follow-up | 6 month | + + + | Congestive Heart | | | Failure | | + + + Encounter Details +--------+---------+ + + + | Date | Type | Department | Care Team | Description | +--------+---------+ + + + | 11/06/ | Office | [facility] | Timothy, | Chest pain (Primary | | 2013 | Visit | CARDIOLOGY [address] | ELLA Morton [address] | Dx); Hypertension; | | | | [place], | [place], | Hyperlipidemia; | | | | [place] [address] | [place] [address] | Chronic kidney | | | | [phone] | [phone] | disease, stage III | | | | | | (moderate) | +--------+---------+ + + + Social History [...] + + + | Blood Pressure | 140/78 | 11/06/2014 9:51 AM | Left arm | | | | PST | | + + + + + | Pulse | 62 | 11/06/2014 9:51 AM | regular | | | | PST | | + + + + + | Temperature | - | - | | + + + + + | Respiratory Rate | 16 | 11/06/2014 9:51 AM | | | | | PST | | + + + + + | Oxygen Saturation | - | - | | + + + + + | Inhaled Oxygen | - | - | | | Concentration | | | | + + + + + | Weight | 129.2 kg (284 lb | 11/06/2014 9:51 AM | | | | 12.8 oz) | PST | | + + + + + | Height | 190.5 cm (6' 3") | 11/06/2014 9:51 AM | | | | | PST | | + + + + + | Body Mass Index | 35.6 | 11/06/2014 9:51 AM | | | | | PST | | + + + + + documented in this encounter Progress Notes Christel BetancourtELLA white - 11/06/2014 9:59 AM PSTFormatting of this note might be different f rom the original. PATIENT NAME: Steve Tanner : 1945: AGE: 69 y.o. PRIMARY CARE: Quique Garza MD OUTPATIENT FOLLOW UP VISIT Date of Service: 11/06/2014 HISTORY OF PRESENT ILLNESS: Steve Tanner is a 69 y.o. 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 He is being seen today for follow up congestive hear t failure and hypertension. He was last seen 05/05/2014 at which time he was to decrease losartan 25 mg by mouth at bedt michelle, check blood pressure and pulse for 2 weeks and follow up in 6 months. Since that time, patient has been working hard on improving his lifestyle. He is now walking 30-45 minutes at least 3 times a week been cutting back carbohydrates and now he is eating less bread and potatoes. He has been able to lose some weight and he has noticed that his blood pressure h as decreased as well since he started his new diet. He denies chest pain or shortness of pan ath at rest or with exertion, lightheadedness, dizziness, palpitations, or increase in leg s welling. He sleeps on 2 pillows at night, which is unchanged. MEDICAL, SURGICAL, AND PERSONAL HISTORY Past Medical, [...] ASCVD (arteriosclerotic cardiovascular disease) Hypotension Chest pain Chronic kidney disease, stage III (moderate) CURRENT MEDICATIONS Current Outpatient Prescriptions Medication Sig Dispense Refill allopurinol (ZYLOPRIM) 300 mg tablet Take 300 mg by mouth Daily. calcitRIOL (ROCALTROL) 0.5 MCG capsule TAKE ONE CAPSULE BY MOUTH EVERY DAY FOR SHPTH 3 0 capsule 6 carvedilol (COREG) 25 mg tablet TAKE ONE TABLET BY MOUTH TWICE A DAY (WITH BREAKFAST AN D DINNER) 60 tablet 6 furosemide (LASIX) 40 mg tablet Take 1 tablet by mouth 2 times daily. 60 tablet 6 Linagliptin (TRADJENTA) 5 MG TABS Take 5 mg by mouth Daily. loratadine-pseudoePHEDrine (CLARITIN-D 12 HOUR) 5-120 mg per tablet Take 1 tablet by mo ut as needed. losartan (COZAAR) 25 mg tablet Take 1 tablet by mouth Daily. 30 tablet 6 mometasone (ELOCON) 0.1 % cream Apply topically Daily. niacin 500 mg tablet Take 500 mg by mouth 2 times daily. omeprazole (PRILOSEC) 40 MG capsule Take 1 capsule by mouth Daily. 90 capsule 3 terbinafine (LAMISIL) 250 MG tablet Take 250 mg by mouth Daily. ALLERGIES Allergies Allergen Reactions Lisinopril Other (See Comments) Cough Penicillins Rash ROS Review of Systems Constitutional: Negative for malaise/fatigue. Respiratory: Negative for shortness of breath. Cardiovascular: Negative for chest pain and leg swelling. Genitourinary: Positive for frequency. Neurological: Negative for dizziness, loss of consciousness and weakness. OBJECTIVE: PHYSICAL EXAM BP 140/78 | Pulse 62 | Resp 16 | Ht 1.905 m (6' 3") | Wt 129.184 kg (284 lb 12.8 oz) | BMI 35.60 kg/m2 Physical Exam Constitutional: He is oriented to person, place, and time. He appears well-developed and we ll-nourished. Elderly adult male in no acute distress Neck: Normal carotid pulses and no JVD present. Carotid bruit is present. Cardiovascular: Normal rate, regular rhythm, S1 [...] There is no tenderness. Musculoskeletal: He exhibits edema (trace pitting edema bilateral leg). Neurological: He is alert and oriented to person, place, and time. Coordination normal. Skin: Skin is warm, dry and intact. No cyanosis. Nails show no clubbing. Psychiatric: He has a normal mood and affect. His mood appears not anxious. He does not exh ibit a depressed mood. ECG: I personally reviewed EKG tracing from 01/03/2014. See scanned document for further i nterpretation. LAB RESULTS: LIPID Lab Results Component Value Date LDLEX 74 07/25/2014 HDLEX 24.4* 07/25/2014 TRIGEX 295* 07/25/2014 CHOLEX 157 07/25/2014 CHEMISTRY Lab Results Component Value Date GLU 145 07/25/2014 NA 138 07/25/2014 K 4.4 07/25/2014 CL 104 07/25/2014 CO2 27 07/25/2014 CALCIUM 9.5 07/25/2014 ALKPHOS 58 07/25/2014 AST 13 12/13/2013 ASTEX 13 07/25/2014 ALT 16 12/13/2013 ALTEX 14 07/25/2014 BILITOT 0.8 07/25/2014 CREA 1.60* 05/05/2014 BUN 59 07/25/2014 EGFR 46* 12/17/2013 EGFREX 32 09/17/2014 CREEX 2.05 09/17/2014 HEMATOLOGY Lab Results Component Value Date WBC 6.1* 12/17/2013 HGB 7.9* 12/18/2013 HCT 21.1* 12/18/2013 PLT 113* 12/17/2013 HGBEX 13.1 09/17/2014 I reviewed records from PCP for office visit on 07/23/2014. ASSESSMENT: 1. Congestive heart failure with preserved left ventricular ejection fraction A. Patient was recently admitted to [place] with a profound anemia with hemoglobin of [...] patient is doing better from cardiac standpoint. Patient has increased his physi stephen activity and is now walking 30-45 minutes for 3 days a week. He is also was. His able to exert himself without experiencing any angina or dyspnea at rest or on exertion. Patient 's leg edema is only trace at this point. Patient has no symptoms of angina or dyspnea at re st or on exertion. He is in a class I of NYHA functional class. There are no signs or sympt oms of overt congestive heart failure. On physical examination there are no signs of fluid overload. 2. Hypertension A. Blood pressure from patient's blood pressure log from home shows a well-controlled bloo d pressure 3. Stage IV chronic kidney disease from diabetic nephropathy. 4. Diabetes 5. Peripheral vascular disease A. Status post left carotid endarterectomy in 2005. 6. Hyperlipidemia A. Patient is only on niacin. Patient will try lifestyle modifications and diet or with w e'll recheck before next appointment 7. Anemia from upper GI bleeding PLAN: 1. He will follow the same therapeutic medical regimen. 2. Patient has been congratulated on his lifestyle modifications that I have encouraged him to continue with them. 3. He will follow up in 1 year, or sooner with concerns. I, ELLA West, saw this patient under the direct supervision of Humphrey Silvestre MD Portions of this chart may have been created with [employer] voice recognition software. Occasi onal wrong-word or sound-alike substitutions may have occurred due to the inherent matta itations of voice recognition software. Please read the chart carefully and recognize, using context, where these substitutions have occurred. documented in this encounter Plan of Treatment +--------+---------+ + + + | Date | Type | Specialty | Care Team | Description | +--------+---------+ + + + | 05/20/ | Office | Cardiology | Yumiko Del Valle, | | | 2019 | Visit | | MD Lupe TYLER | | | | | | [place] | | | | | | [address] | | | | | | | | +--------+---------+ + + + documented as of this encounter Visit Diagnoses + + | Diagnosis | + + | Chest pain - Primary Chest pain, unspecified | + + | Hypertension Unspecified essential hypertension | + + | Hyperlipidemia Other and unspecified hyperlipidemia | + + | Chronic kidney disease, stage III (moderate) Chronic kidney disease, Stage III | | (moderate) | + + documented in this encounter
--- OUTSIDE RECORDS SUMMARY | ~2020-04-03 | XMS | Encounter Summary ---
Demographics + + + | Address | [address] | | | [place] [address] | + + + | Home Phone | | + + + | Preferred Language | Unknown | + + + | Marital Status | Single | + + + | Zoroastrian Affiliation | Unknown | + + + | Race | Unknown | + + + | Ethnic Group | Unknown | + + + Author + + + | Author | [facility] | | | and [place] | + + + | Organization | [facility] | | | and [place] | + + + | Address | Unknown | + + + | Phone | Unavailable | + + + Support + + + + + | Name | Relationship | Address | Phone | + + + + + | Hi Dawn | ECON | [place] | | | | | [address] | | + + + + + | Atif eDlgadillo | ECON | [place], [place] | | | | | [address] | | + + + + + | Caleb Dawn | ECON | Unknown | | + + + + + Care Team Providers + +------+ + | Care Varnish Supervisor Name | Role | Phone | + +------+ + PCP | Unavailable | + +------+ + Reason for Visit + + + | Reason | Comments | + + + | Gout Pain | | + + + Encounter Details +--------+ + + + + | Date | Type | Department | Care Team | Description | +--------+ + + + + | 12/11/ | Telephone | [facility] | Winsome Fam W, | Gout Pain | | 2013 | | NEPHROLOGY [address] | [address] | | | | | [facility] [address] | [address] [facility] | | | | | [place], [place] | [place] [address] | | | | | [address] | [phone] | | | | | [phone] | | | +--------+ + + + [...] [place] | | | | | | [address] | | | | | | | | +--------+---------+ + + + documented as of this encounter Visit Diagnoses Not on filedocumented in this encounter"
--- OUTSIDE RECORDS SUMMARY | ~2020-04-03 | XMS | Encounter Summary ---
Demographics + + + | Address | [address] | | | [place] [address] | + + + | Home Phone | | + + + | Preferred Language | Unknown | + + + | Marital Status | Single | + + + | Mormon Affiliation | Unknown | + + + | Race | Unknown | + + + | Ethnic Group | Unknown | + + + Author + + + | Author | [facility] | | | and [place] | + + + | Organization | [facility] | | | and [place] | + + + | Address | Unknown | + + + | Phone | Unavailable | + + + Support + + + + + | Name | Relationship | Address | Phone | + + + + + | Hi Dawn | ECON | [place] | | | | | [address] | | + + + + + | Atif Delgadillo | ECON | [place], [place] | | | | | [address] | | + + + + + | Caleb Dawn | ECON | Unknown | | + + + + + Care Team Providers + +------+ + | Care Chiller Operator Name | Role | Phone | [...] | kidney | MD [address] | | | | | disease, | Roland | [place], [place] | | | | | stage 3 | [address] | [address] [place] | | | | | (moderate) | [place], | [place] | | | | | (HCC) | [place] | [address] Phone: | | | | | Hypertension | [address] | [phone] | | | | | , essential | Phone: | Fax: | | | | | Type 2 | [phone] | [phone] | | | | | diabetes | Fax: | | | | | | mellitus | [phone] | | | | | | with stage 3 | | | | | | | chronic | | | | | | | kidney | | | | | | | disease | | | | | | | (HCC) | | | | | | | Procedures | | | | | | | LA OFFICE | | | | | | | OUTPATIENT | | | | | | | VISIT 25 | | | | | | | MINUTES | | | +--------+--------+ + + + + Encounter Details +--------+ + + + + | Date | Type | Department | Care Team | Description | +--------+ + + + + | 10/23/ | Off-Site | [facility] [place] | Freddy Sanchez | Type 2 diabetes | | 2017 | Visit | NEPHROLOGY [address] | M, DO [address] | mellitus with stage | | | | [address] | [place], [address] | 3 chronic kidney | | | | [place], [place] | [place] | disease, with | | | | [address] | [address] | long-term current | | | | [phone] | | use of insulin (HCC) | [...] 130/80; | | | | | | Hyperparathyroidism | | | | | | due to renal | | | | | | insufficiency (HCC) | +--------+ + + + + [...] + + + | Blood Pressure | 133/85 | 10/23/2017 3:22 PM | | | | | PST | | + + + + + | Pulse | - | - | | + + + + + | Temperature | 36.6 C (97.8 F) | 10/23/2017 3:22 PM | | | | | PST [...] + + + + | Weight | 129.9 kg (286 lb 6 | 10/23/2017 3:22 PM | | | | oz) | PST | | + + + + + | Height | - | - | | + + + + + | Body Mass Index | 35.79 | 10/29/2015 1:56 PM | | | | | PST | | + + + + + documented in this encounter Progress Notes Freddy Sanchez, - 10/23/2017 3:00 PM PST Subjective: NEPHROLOGY Patient ID: Steve Tanner is a 72 y.o. male. HPI Comments: Routine follow up for this 72 YOWM with CKD secondary to Type 2 DM. He al so has a history of a remote DU, 2013, hypertension, hyperlipidemia, DJD of knees, SHPTH, ASCVD, s/p left CEA, 2005, anemia secondary to CKD, gout, and Type 2 DM. He states that Dr[address] Webb has retired and that he is seeing Dr. Anoop Moyer, and Endo crinologist in [place], Dr. Winsome Crowder. He denies any new edema, CORONADO, hiccups, or pru ritus. He still appears to follow his diet very diligently. Outpatient Prescriptions Marked as Taking for the 10/23/17 encounter (Off-Site Visit) with Olayinka Sanchez DO [...] BREAKFAST AN D DINNER) 60 tablet 6 [DISCONTINUED] empagliflozin (JARDIANCE) 10 mg tablet Take 10 mg by mouth Daily. furosemide (LASIX) 40 mg tablet TAKE ONE TABLET BY MOUTH TWICE A DAY 60 tablet 6 glimepiride (AMARYL) 1 mg tablet Take 1 mg by mouth every morning (before breakfast). Linagliptin (TRADJENTA) 5 MG TABS Take 5 mg by mouth Daily. liraglutide (VICTOZA) 18 mg/3 mL injection Inject 1.2 mg under the skin Daily. 11 [DISCONTINUED] liraglutide (VICTOZA) 18 mg/3 mL injection Inject 1.8 mg under the skin Daily. loratadine-pseudoePHEDrine (CLARITIN-D 12 HOUR) 5-120 mg per tablet Take 1 tablet by mo ut as needed. losartan (COZAAR) 25 mg tablet Take 1 tablet by mouth Daily. 90 tablet 4 mometasone (ELOCON) 0.1 % cream Apply topically Daily. [place]-3 Fatty Acids (FISH OIL) 1200 MG CAPS Take 1,200 mg by mouth 2 times daily. rosuvastatin (CRESTOR) 5 MG tablet Take 5 mg by mouth Three times a week. terbinafine (LAMISIL) 250 MG tablet Take 250 mg by mouth Daily. For 90 days, then, off for 90 days. Allergies Allergen Reactions Lisinopril Other (See Comments) Cough Penicillins Rash Objective: BP 133/85 | Temp 36.6 C (97.8 F) | Wt 129.9 kg (286 lb 6 oz) | BMI 35.79 kg/m Physical Exam Heart: Regular rate and rhythm, with no S3, S4, murmur or rub. Lungs: CTA bilaterally. No rales or wheezes. Abdomen: Soft, obese, normoactive bowel sounds. Extremities: 1+ edema, no clubbing, cyanosis; superficial laceration, Left 3rd toe from a fingernail clipper, no erythema or warmth. Lab Results Component Value Date NAEX 140 10/03/2017 KEX 3.7 10/03/2017 CLEX 102 10/03/2017 CO2EX 22 10/03/2017 BUNEX 66 (A) 10/03/2017 CREEX 2.29 (A) 10/03/2017 EGFREX 28 10/03/2017 GLUEX 70 10/03/2017 PHOSEX 4.2 10/03/2017 PTHEX 186.6 (A) 10/03/2017 KGJ2PJG 5.1 10/03/2017 Lab Results Component Value Date WBCEX 6.8 10/03/2017 HGBEX 13.9 10/03/2017 HCTEX 39.9 (A) 10/03/2017 PLTEX 126 (A) 10/03/2017 Lab Results Component Value Date CRCLEARANCE 52.0 (A) 10/03/2017 PROTEX 140 10/03/2017 Assessment: 1. CKD Stage 3, secondary to diabetic glomerulosclerosis and HTN-- Ccr is slightly better. His proteinuria is stable. 2. Hypertension-- well controlled. 3. Type 2 DM-- good control. 4. SHPTH-- iPTH is still above target, per KDIGO guidelines. 5. 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 6. ASCVD/ s/p left CEA, 2005--stable. 7. Hyperlipidemia--on statin Rx. 8. Gout-- quiescent. Plan: 1. I reviewed with Steve his lab, and 24 hr urine results. His GFR does appear stable t o slightly improved over the last visit. I encouraged him that he appears to be doing a goo d job with his diet, and glycemic control. 2. In regards to his SHPTH and PAD, he may benefit from improved control of his iPTH to av oid any additional intimal calcification in his arteries. Therefore, will have him increase his Calcitriol to .5 mcg, alternating with 1 mcg, Q other day to target his iPTH to < 110 p g/ml. If he develops any hypercalcemia, then, he may need to utilize Sensipar as well, at t hat point. 3. Will plan to see him back in 4 mo. at the [facility] at [place], [place]. He will have CBC, CMP, PO4, HbA1c, iPTH, Urine Pro/Cr ratio one week prior to that. : Anoop Moyer MD, PhD Winsome Crowder MD, [place], [place] Matheus Gregory MD, [place] , [place] documented in th is encounter Plan of Treatment +--------+---------+ + + + | Date | Type | Specialty | Care Team | Description | +--------+---------+ + + + | 05/20/ | Office | Cardiology | [place], [place], | | | 2020 | Visit | | MD Lupe TYLER | | | | | | [place], [place] | | | | | | [address] | | | | | | | | +--------+---------+ + + + documented as of this encounter Visit Diagnoses + + | Diagnosis | + + | Type 2 diabetes mellitus with stage 3 chronic kidney disease, with long-term current | | use of insulin (HCC) - Primary | + + | Chronic kidney disease, stage III (moderate) (HCC) Chronic kidney disease, Stage III | | (moderate) | + + | Essential hypertension with goal blood pressure less than 130/80 | + + | Hyperparathyroidism due to renal insufficiency (HCC) Secondary hyperparathyroidism | | (of renal origin) | + + documented in this encounter"
--- OUTSIDE RECORDS SUMMARY | ~2020-04-03 | XMS | Encounter Summary ---
Demographics + + + | Address | [address] | | | [place] [address] | + + + | Home Phone | | + + + | Preferred Language | Unknown | + + + | Marital Status | Single | + + + | Hinduism Affiliation | Unknown | + + + | Race | Unknown | + + + | Ethnic Group | Unknown | + + + Author + + + | Author | Located [facility] | | | and [place] | + + + | Organization | Located [facility] | | | and [place] | + + + | Address | Unknown | + + + | Phone | Unavailable | + + + Support + + + + + | Name | Relationship | Address | Phone | + + + + + | Hi Dawn | ECON | [place] | | | | | [address] | | + + + + + | Atif Delgadillo | ECON | [place], [place] | | | | | [address] | | + + + + + | Caleb Dawn | ECON | Unknown | | + + + + + Care Team Providers + +------+ + | Care Stroke Program Coordinator Name | Role | Phone | + +------+ + PCP | Unavailable | + +------+ + Encounter Details +--------+ + + + + | Date | Type | Department | Care Team | Description | +--------+ + + + + | 05/05/ | Hospital | [facility] | Timothy, | Hypertension | | 2013 | Encounter | [facility] | [address]A [address] | | | | | [address] | [place], | | | | | [place] | [place] [address] | | | | | [address] | [phone] | | | | | [phone] | | | +--------+ + + + [...] + + documented as of this encounter Medications at Time of Discharge + + + +---------+ + + | Medication | Sig | Dispensed | Refills | Start | End Date | | | | | | Date | | + + + +---------+ + + | allopurinol | Take 300 mg by mouth | | 0 | | | | (ZYLOPRIM) 300 mg | Daily. | | | | | | tablet | | | | | | + + + +---------+ + + | mometasone | Apply topically | | 0 | | | | (ELOCON) 0.1 % cream | Daily. | | | | | + + + +---------+ + + | calcitRIOL | Take 0.5 mcg by | | 0 | | | | (ROCALTROL) 0.5 MCG | mouth Daily. | | | | 4 | | capsule | | | | | | + + + +---------+ + + | carvedilol (COREG) | Take 1 tablet by | 60 | 3 | 01/24/20 | | | 25 mg tablet | mouth 2 times daily | tablet | | 14 | 4 | | | (with breakfast & | | | | | | | dinner). | | | | | + + + +---------+ + + | darbepoetin easton | Inject 60 mcg under | | 0 | | | | (ARANESP) 60 mcg/mL | the skin Every 30 | | | | 4 | | injectionIndications | days. | | | | | | : Unspecified | | | | | | | hypertensive kidney | | | | | | | disease with chronic | | | | | | | kidney disease | | | | | | | stage I through | | | | | | | stage IV, or | | | | | | | unspecified(403.90), | | | | | | | Acute GI bleeding, | | | | | | | Gastric ulcer with | | | | | | | hemorrhage, Chronic | | | | | | | kidney disease, | | | | | | | stage III (moderate) | | | | | | | ([facility]) | | | | | | + + + +---------+ + + | furosemide (LASIX) | Take 1 tablet by | 60 | 6 | 01/03/20 | | | 40 mg | mouth 2 times daily. | tablet | | 14 | 5 | | tabletIndications: | | | | | | | CHF (congestive | | | | | | | heart failure) ([facility]) | | | | | | + + + +---------+ + + | | Take 1 tablet by | | 0 | | | | HYDROcodone-acetamin | mouth every 6 hours | | | | 4 | | ophen (NORCO) 10-325 | as needed. | | | | | | mg per tablet | | | | | | + + + +---------+ + + | | Take 1 tablet by | | 0 | | | | loratadine-pseudoePH | mouth as needed. | | | | 8 | | EDrine (CLARITIN-D | | | | | | | 12 HOUR) 5-120 mg | | | | | | | per tablet | | | | | | + + + +---------+ + + | losartan (COZAAR) | Take 1 tablet by | 30 | 6 | 05/05/20 | | | 25 mg tablet | mouth Daily. | tablet | | 14 | 4 | + + + +---------+ + + | niacin 500 mg | Take 1,250 mg by | | 0 | | | | tablet | mouth 2 times daily. | | | | 5 | + + + +---------+ + + | nitroglycerin | Place 0.4 mg under | | 0 | | | | (NITROSTAT) 0.4 mg | the tongue every 5 | | | | 4 | | SL tablet | minutes as needed. | | | | | + + + +---------+ + + | omeprazole | Take 1 capsule by | 90 | 3 | 12/19/19 | | | (PRILOSEC) 40 MG | mouth Daily. | capsule | | 14 | 5 | | capsule | | | | | | + + + +---------+ + + | sucralfate | Take 1 tablet by | 120 | 2 | 12/19/19 | | | (CARAFATE) 1 g | mouth 4 times daily. | tablet | | 14 | 4 | | tablet | | | | | | + + + +---------+ + + | terbinafine | Take 250 mg by mouth | | 0 | | | | (LAMISIL) 250 MG | Daily. For 90 days, | | | | 9 | | tablet | then, off for 90 | | | | | | | days. | | | | | + + + +---------+ + + documented as of this encounter Plan of Treatment +--------+---------+ + + + | Date | Type | Specialty | Care Team | Description | +--------+---------+ + + + | 05/20/ | Office | Cardiology | Yumiko Del Valle, | | | 2019 | Visit | | MD Lpue TYLER | | | | | [facility] | | | | | | [address] | | | | | | | | +--------+---------+ + + + documented as of this encounter Procedures + +--------+ + + + | Procedure Name | Priori | Date/Time | Associated Diagnosis | Comments | | | ty | | | | + +--------+ + + + | BASIC METABOLIC | Routin | 05/05/2014 | Hypertension | Results for this | | PANEL | e | 9:34 AM | | procedure are in the | | | | PDT | | results section. | + +--------+ + + + documented in this encounter Results Basic Metabolic Panel (05/05/2014 [...] 1.60 (H) | 0.60 - 1.30 | [facility] | | | | | mg/dL | [facility] | | | | | | [facility] | | | | | | [facility] - | | | | | | LABORATORY | | + + + + + + | eGFR if not | 43 (L)Comment: | >=60 | [facility] | | | | GLOMERULAR FILTRATION | mL/min/1.73m2 | [facility] | | | LITHUANIAN | RATE,ESTIMATED | | MEDICAL | | | | mL/min/1.54w0Xwfu than | | CENTER - | | [...] | 9.2 | 8.3 - 10.5 | [facility] | | | | | mg/dL | [facility] | | | | | | MEDICAL [...] + | [facility] | [address] | [place] | [phone] | | [facility] | | [address] | | | - LABORATORY | | | | + + + + + | [address] [facility] | [address] | [place] | | | [facility] | | [address], [facility] | | | - LABORATORY | | | | + + + + + documented in this encounter Visit Diagnoses + + | Diagnosis | + + | Hypertension Unspecified essential hypertension | + + documented in this encounter"
--- OUTSIDE RECORDS SUMMARY | ~2020-04-03 | XMS | Encounter Summary ---
Demographics + + + | Address | [address] | | | [place] [address] | + + + | Home Phone | | + + + | Preferred Language | Unknown | + + + | Marital Status | Single | + + + | Yazidism Affiliation | Unknown | + + + | Race | Unknown | + + + | Ethnic Group | Unknown | + + + Author + + + | Author | [facility] | | | and [place] | + + + | Organization | [facility] | | | and [place] | + + + | Address | Unknown | + + + | Phone | Unavailable | + + + Support + + + + + | Name | Relationship | Address | Phone | + + + + + | Hi Dawn | ECON | [place] | | | | | [address] | | + + + + + | Atif Delgadillo | ECON | [place] | | | | | [address] | | + + + + + | Caleb Dawn | ECON | Unknown | | + + + + + Care Team Providers + +------+ + | Care Senior Buyer Name | Role | Phone | + +------+ + | Anoop Moyer MD | PCP | | + +------+ + Reason for Visit + + + | Reason | Comments | + + + | Medication Refill | | + + + Encounter Details +--------+--------+ + + + | Date | Type | Department | Care Team | Description | +--------+--------+ + + + | 05/21/ | Refill | [facility] | Freddy Sanchez | Medication Refill | | 2013 | | NEPHROLOGY [address] | M, DO [address] | | | | | [address] [facility] [address] | [place], [facility] [address] | | | | | [place], [place] | [place] | | | | | [address] | [address] | | | | | [phone] | | | +--------+--------+ + + + Social History + +-------+ [...] [place] | | | | | | [address] | | | | | | | | +--------+---------+ + + + documented as of this encounter Visit Diagnoses Not on filedocumented in this encounter"
--- OUTSIDE RECORDS SUMMARY | ~2020-04-03 | XMS | Encounter Summary ---
Demographics + + + | Address | [address] | | | [place] [address] | + + + | Home Phone | | + + + | Preferred Language | Unknown | + + + | Marital Status | Single | + + + | Faith Affiliation | Unknown | + + + | Race | Unknown | + + + | Ethnic Group | Unknown | + + + Author + + + | Author | [facility] | | | and [place] | + + + | Organization | [facility] | | | and [place] | + + + | Address | Unknown | + + + | Phone | Unavailable | + + + Support + + + + + | Name | Relationship | Address | Phone | + + + + + | Hi Dawn | ECON | [place] | | | | | [address] | | + + + + + | Atif Delgadillo | ECON | [place], [place] | | | | | [address] | | + + + + + | Caleb Dawn | ECON | Unknown | | + + + + + Care Team Providers + +------+ + | Care Water Pipe Installer Name | Role | Phone | + [...] | kidney | MD [address] | | | | | disease, | [place] | [place], [place] | | | | | stage 3 | [place] [address] | [address] | | | | | (moderate) | [place], | [place] | | | | | (HCC) | [place] | [address] Phone: | | | | | Hypertension | [address] | [phone] | | | | | , essential | Phone: | Fax: | | | | | Type 2 | [phone] | [phone] | | | | | diabetes | Fax: | | | | | | mellitus | [phone] | | | | | | with stage 3 | | | | | | | chronic | | | | | | | kidney | | | | | | | disease | | | | | | | (HCC) | | | | | | | Procedures | | | | | | | [facility] OFFICE | | | | | | | OUTPATIENT | | | | | | | VISIT 25 | | | | | | | MINUTES | | | +--------+--------+ + + + + Encounter Details +--------+ + + + + | Date | Type | Department | Care Team | Description | +--------+ + + + + | 01/09/ | Off-Site | [facility] [place] | Freddy Sanchez | Chronic kidney | | 2017 | Visit | NEPHROLOGY [address] | M, DO [address] | disease, stage III | | | | [address] | [place] [address] | (moderate) (Primary | | | | [place] | [place] | Dx); Secondary | | | | [address] | [address] | hyperparathyroidism | | | | [phone] | | of renal origin | | | | | | (HCC); Essential | | | | | | hypertension with | | | | | | goal blood pressure | | | | | | less than 130/80; | | | | | | Type [...] + + + | Blood Pressure | 146/80 | 01/09/2017 2:11 PM | | | | | PST | | + + + + + | Pulse | - | - | | + + + + + | Temperature | 36.6 C (97.8 F) | 01/09/2017 2:11 PM | | | | | PST [...] + + + + | Weight | 130.7 kg (288 lb 2.3 | 01/09/2017 2:11 PM | | | | oz) | PST | | + + + + + | Height | - | - | | + + + + + | Body Mass Index | 36.02 | 10/29/2015 1:56 PM | | | | | PST | | + + + + + documented in this encounter Progress Notes Freddy Sanchez DO - 01/09/2017 2:12 PM PST Subjective: NEPHROLOGY Patient ID: Steve Tanner is a 71 y.o. male. HPI Comments: Follow-up for this 71 YOWM with CKD secondary to Type 2 DM. He also has a history of a remote DU, 2013, hypertension, hyperlipidemia, DJD of knees, SHPTH, ASCVD, s /p left CEA, 2005, anemia secondary to CKD, and Type 2 DM. He continues to be very compliant with a low salt, low starch. He appears to follow very closely with Dr. Hema Garza for his BP and glycemic control. He stattes that he seldom eats restaurant food. He denies CORONADO, hiccups, chest pain, or increased edema. Outpatient Prescriptions Marked as Taking for the 01/09/17 encounter (Off-Site Visit) with Olayinka Sanchez DO [...] (ELOCON) 0.1 % cream Apply topically Daily. Hollister-3 Fatty Acids (FISH OIL) 1200 MG CAPS Take 1,200 mg by mouth 2 times daily. [DISCONTINUED] Hollister-3 Fatty Acids (FISH OIL) 300 MG CAPS Take 1,200 mg by mouth Daily. rosuvastatin (CRESTOR) 5 MG tablet Take 5 mg by mouth Three times a week. terbinafine (LAMISIL) 250 MG tablet Take 250 mg by mouth Daily. For 90 days, then, off for 90 days. Allergies Allergen Reactions Lisinopril Other (See Comments) Cough Penicillins Rash Objective: BP 146/80 mmHg | Temp(Src) 36.6 C (97.8 F) | Wt 130.7 kg (288 lb 2.3 oz) Physical Exam Heart: Regular rate and rhythm with no S3, S4, murmur or rub. Lungs: CTA bilaterally. No rales or wheezes. Abdomen: Soft, obese, normoactive bowel sounds. Extremities: 1+ edema, no clubbing, cyanosis, or foot ulcers. Lab Results Component Value Date NAEX 140 01/05/2017 KEX 4 01/05/2017 CLEX 101 01/05/2017 CO2EX 26 01/05/2017 BUNEX 53* 01/05/2017 BUNEX 53 01/05/2017 CREEX 2.33* 01/05/2017 EGFREX 28 01/05/2017 GLUEX 176* 01/05/2017 PHOSEX 3.7 01/05/2017 PTHEX 135.7* 01/05/2017 TGH6XMU 6.5 01/05/2017 Lab Results Component Value Date WBCEX 6.5 01/05/2017 HGBEX 13.5 01/05/2017 HCTEX 39.7* 01/05/2017 PLTEX 139* 01/05/2017 Lab Results Component Value Date CRCLEARANCE 50.0* 01/05/2017 PROTEX 120 01/05/2017 Assessment: 1. CKD Stage 3, secondary to diabetic glomerulosclerosis and HTN-- overall, his Ccr is sta ble on his current regimen. 2. Hypertension--very good control. 3. Type 2 DM-- very good control by his most recent Hba1c. 4. SHPTH-- stable. 5. 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 6. ASCVD/ s/p left CEA, 2005--stable. 7. Hyperlipidemia--on statin Rx. 8. Gout-- quiescent. Plan: 1. His proteinuria, and GFR appear relatively stable. He appears to be following a proper low salt, low CHO diet. 2. Will continue the losartan for its renoprotective effect. 3. I discussed with Stiven about using a higher dose of a statin, for his PAD, however, phil duarte is very fearful of myositis and would prefer not to. He does appear to be tolerating it well. 4. Will plan to see him back in 6 mo. at the [facility], at [place], [place]. He wi ll have a CBC, CMP, P04, PTH, CPK, HbA1c, lipid profile and 24-hour urine collection one w [facility] prior to that. : Hema Gregory MD, [place], [place] documented in th is encounter Plan [...] [place] | | | | | | [id number] | | | | | | | | +--------+---------+ + + + documented as of this encounter Procedures + +--------+ + + + | Procedure Name | Priori | Date/Time | Associated Diagnosis | Comments | | | ty | | | | + +--------+ + + + | EXTERNAL LAB: | Routin | 01/10/2017 | | Results for this | | PHOSPHORUS | e | | | procedure are in the | | | | | | results section. | + +--------+ + + + | EXTERNAL LAB: BUN | Routin | 01/05/2017 | | Results for this | | | e | | | procedure are in the | | | | | | results section. | + +--------+ + + + | EXTERNAL LAB: | Routin | 01/05/2017 | | Results for this | | PHOSPHORUS | e | | | procedure are in the | | | | | | results section. | + +--------+ + + + | LABS - EXTERNAL SCAN | | 01/05/2017 | | Results for this | | | | 12:00 AM | | procedure are in the | | | | PST | | results section. | + +--------+ + + + documented in this encounter Results External Lab: Phosphorus (01/10/2017) + + | Specimen | + + | | + + + + + | Impressions | Performed At | + + + | duplicate entry. | | + + + External Lab: BUN (01/05/2017) + +-------+ + + + | Component | Value | Ref Range | Performed | Pathologist | | | | | At | Signature | + +-------+ + + + | BUN, | 53 | | | | | External | | | | | + +-------+ + + + + + | Specimen | + + | | + + + + + | Impressions | Performed At | + + + | duplicate entry. | | + + + LABS - EXTERNAL SCAN (01/05/2017 12:00 AM PST) + + + | Narrative | Performed At | + + + | Ordered by an | | | unspecified provider. | | + + + External Lab: Phosphorus (01/05/2017) + +-------+ + + + | Component | Value | Ref Range | Performed | Pathologist | | | | | At | Signature | + +-------+ + + + | Phosphorus, | 3.7 | | | | | External | | | | | + +-------+ + + + + + | Specimen | + + | | + + documented in this encounter Visit Diagnoses + + | Diagnosis | + + | Chronic kidney disease, stage III (moderate) (HCC) - Primary Chronic kidney disease, | | Stage III (moderate) | + + | Secondary hyperparathyroidism of renal origin (HCC) Secondary hyperparathyroidism (of | | renal origin) | + + | Essential hypertension with goal blood pressure less than 130/80 | + + | Type 2 diabetes mellitus with stage 3 chronic kidney disease, without long-term | | current use of insulin (HCC) | + + documented in this encounter"
--- OUTSIDE RECORDS SUMMARY | ~2020-04-03 | XMS | Encounter Summary ---
Demographics + + + | Address | [address] | | | [place] [address] | + + + | Home Phone | | + + + | Preferred Language | Unknown | + + + | Marital Status | Single | + + + | Taoism Affiliation | Unknown | + + + | Race | Unknown | + + + | Ethnic Group | Unknown | + + + Author + + + | Author | [facility] | | | and [place] | + + + | Organization | [facility] | | | and [place] | + + + | Address | Unknown | + + + | Phone | Unavailable | + + + Support + + + + + | Name | Relationship | Address | Phone | + + + + + | Hi Dawn | ECON | [place] | | | | | [address] | | + + + + + | Atif Delgadillo | ECON | [place], [place] | | | | | [address] | | + + + + + | Caleb Dawn | ECON | Unknown | | + + + + + Care Team Providers + +------+ + | Care Dermatology Specialist Name | Role | Phone | + +------+ + PCP | Unavailable | + +------+ + Encounter Details +--------+ + + + + | Date | Type | Department | Care Team | Description | +--------+ + + + + | 10/04/ | Abstract | [facility] | Freddy Sanchez | | | 2017 | | NEPHROLOGY [address] | M, DO [address] | | | | | [address] | [place] | | | | | [place], [place] | [place] | | | | | [address] | [address] | | | | | [phone] | | | +--------+ + + + [...] | | | | | [place], [place] | | | | | | [address] | | | | | | | | +--------+---------+ + + + documented as of this encounter Procedures + +--------+ + + + | Procedure Name | Priori | Date/Time | Associated Diagnosis | Comments | | | ty | | | | + +--------+ + + + | EXTERNAL LAB: FATOUMATA | Routin | 10/03/2017 | | Results for this | | | e | | | procedure are in the | | | | | | results section. | + +--------+ + + + | EXTERNAL LAB: | Routin | 10/03/2017 | | Results for this | | GLUCOSE | e | | | procedure are in the | | | | | | results section. | + +--------+ + + + | EXTERNAL LAB: ALT | Routin | 10/03/2017 | | Results for this | | | e | | | procedure are in the | | | | | | results section. | + +--------+ + + + | EXTERNAL LAB: AST | Routin | 10/03/2017 | | Results for this | | | e | | | procedure are in the | | | | | | results section. | + +--------+ + + + | EXTERNAL LAB: | Routin | 10/03/2017 | | Results for this | | ALKALINE PHOSPHATASE | e | | | procedure are in the | | | | | | results section. | + +--------+ + + + | EXTERNAL LAB: | Routin | 10/03/2017 | | Results for this | | BILIRUBIN, TOTAL | e | | | procedure are in the | | | | | | results section. | + +--------+ + + + | EXTERNAL LAB: | Routin | 10/03/2017 | | Results for this | | ALBUMIN | e | | | procedure are in the | | | | | | results section. | + +--------+ + + + | EXTERNAL LAB: | Routin | 10/03/2017 | | Results for this | | PROTEIN, TOTAL | e | | | procedure are in the | | | | | | results section. | + +--------+ + + + | EXTERNAL LAB: | Routin | 10/03/2017 | | Results for this | | PHOSPHORUS | e | | | procedure are in the | | | | | | results section. | + +--------+ + + + | EXTERNAL LAB: | Routin | 10/03/2017 | | Results for this | | CALCIUM | e | | | procedure are in the | | | | | | results section. | + +--------+ + + + | EXTERNAL LAB: CARBON | Routin | 10/03/2017 | | Results for this | | DIOXIDE | e | | | procedure are in the | | | | | | results section. | + +--------+ + + + | EXTERNAL LAB: | Routin | 10/03/2017 | | Results for this | | CHLORIDE | e | | | procedure are in the | | | | | | results section. | + +--------+ + + + | EXTERNAL LAB: | Routin | 10/03/2017 | | Results for this | | POTASSIUM | e | | | procedure are in the | | | | | | results section. | + +--------+ + + + | EXTERNAL LAB: SODIUM | Routin | 10/03/2017 | | Results for this | | | e | | | procedure are in the | | | | | | results section. | + +--------+ + + + | EXTERNAL LAB: ENRICO | Routin | 10/03/2017 | | Results for this | | INTACT | e | | | procedure are in the | | | | | | results section. | + +--------+ + + + | EXTERNAL LAB: CBC | Routin | 10/03/2017 | | Results for this | | | e | | | procedure are in the | | | | | | results section. | + +--------+ + + + | EXTERNAL LAB: | Routin | 10/03/2017 | | Results for this | | TRIGLYCERIDES | e | | | procedure are in the | | | | | | results section. | + +--------+ + + + | EXTERNAL LAB: | Routin | 10/03/2017 | | Results for this | | CHOLESTEROL, HDL | e | | | procedure are in the | | | | | | results section. | + +--------+ + + + | EXTERNAL LAB: | Routin | 10/03/2017 | | Results for this | | CHOLESTEROL, TOTAL | e | | | procedure are in the | | | | | | results section. | + +--------+ + + + | EXTERNAL LAB: | Routin | 10/03/2017 | | Results for this | | CHOLESTEROL, LDL | e | | | procedure are in the | | | | | | results section. | + +--------+ + + + | EXTERNAL LAB: EGFR | Routin | 10/03/2017 | | Results for this | | | e | | | procedure are in the | | | | | | results section. | + +--------+ + + + | EXTERNAL LAB: | Routin | 10/03/2017 | | Results for this | | CREATININE | e | | | procedure are in the | | | | | | results section. | + +--------+ + + + | HEMOGLOBIN A1C | Routin | 10/03/2017 | | Results for this | | | e | | | procedure are in the | | | | | | results section. | + +--------+ + + + documented in this encounter Results External Lab: PTH, Intact (10/03/2017) + + + + + + | Component | Value | Ref Range | Performed | Pathologist | | | | | At | Signature | + + + + + + | PTH Intact, | 186.6 (A) | 15 - 65 | | | | External | | | | | + + + + + + + + | Specimen | + + | | + + Hemoglobin A1C (10/03/2017) + +-------+ + + + | Component | Value | Ref Range | Performed | Pathologist | | | | | At | Signature | + +-------+ + + + | Hemoglobin | 5.1 | % | EXTERNAL | | | A1c, | [...] + +---------+ + + External Lab: FATOUMATA (10/03/2017) + +--------+ + + + | Component | Value | Ref Range | Performed | Pathologist | | | | | At | Signature | + +--------+ + + + | BUN, | 66 (A) | 6 - 23 | EXTERNAL [...] + +---------+ + + External Lab: Glucose (10/03/2017) + +-------+ + + + | Component | Value | Ref Range | Performed | Pathologist | | | | | At | Signature | + +-------+ + + + | Glucose, | 70 | 70 - 100 | EXTERNAL | [...] + +---------+ + + External Lab: ALT (10/03/2017) + +-------+ + + + | Component [...] + +---------+ + + External Lab: AST (10/03/2017) + +-------+ + + + | Component [...] +---------+ + + External Lab: Alkaline Phosphatase (10/03/2017) + +-------+ + + + | Component [...] +---------+ + + External Lab: Bilirubin, Total (10/03/2017) + +-------+ + + + | Component [...] + +---------+ + + External Lab: Albumin (10/03/2017) + +-------+ + + + | Component | Value | Ref Range | Performed | Pathologist | | | | | At | Signature | + +-------+ + + + | Albumin, | 4.6 | 3.5 - 5 | EXTERNAL | [...] +---------+ + + External Lab: Protein, Total (10/03/2017) + +-------+ + + + | Component [...] + +---------+ + + External Lab: Phosphorus (10/03/2017) + +-------+ + + + | Component | Value | Ref Range | Performed | Pathologist | | | | | At | Signature | + +-------+ + + + | Phosphorus, | 4.2 | 2.5 - 5 | EXTERNAL | [...] + +---------+ + + External Lab: Calcium (10/03/2017) + +-------+ + + + | Component | Value | Ref Range | Performed | Pathologist | | | | | At | Signature | + +-------+ + + + | Calcium, | 10 | 8.4 - 10.2 | EXTERNAL | [...] +---------+ + + External Lab: Carbon Dioxide (10/03/2017) + +-------+ + + + | Component | Value | Ref Range | Performed | Pathologist | | | | | At | Signature | + +-------+ + + + | Carbon | 22 | 19 - 31 | EXTERNAL | [...] + +---------+ + + External Lab: Chloride (10/03/2017) + +-------+ + + + | Component [...] + +---------+ + + External Lab: Potassium (10/03/2017) + +-------+ + + + | Component | Value | Ref Range | Performed | Pathologist | | | | | At | Signature | + +-------+ + + + | Potassium, | 3.7 | 3.6 - 5.1 | EXTERNAL | [...] + +---------+ + + External Lab: Sodium (10/03/2017) + +-------+ + + + | Component [...] + +---------+ + + External Lab: CBC (10/03/2017) + + + + + + | Component | Value | Ref Range | Performed | Pathologist | | | | | At | Signature | + + + + + + | WBC, | 6.8 | 4.5 - 11 | EXTERNAL | | | External | | | LAB | | + + + + + + | HGB, | 13.9 | 13.5 - 18 | EXTERNAL | | | External | | | LAB | | + + + + + + | HCT, | 39.9 (A) | 41 - 50 | EXTERNAL | | | External | | | LAB | | + + + + + + | PLT, | 126 (A) | 140 - 440 | EXTERNAL | | | External | | | LAB | | + + + + + + | RBC, | 4.42 | 4.3 - 5.7 | EXTERNAL | | | External | | | LAB | | + + + + + + | MCV, | 90 | 81 - 99 | EXTERNAL | | | External | | | LAB | | + + + + + + | RDW, | 14.9 [...] + +---------+ + + External Lab: Triglycerides (10/03/2017) + +---------+ + + + | Component | Value | Ref Range | Performed | Pathologist | | | | | At | Signature | + +---------+ + + + | Triglycerid | 170 (A) | 30 - 150 | EXTERNAL [...] +---------+ + + External Lab: Cholesterol, HDL (10/03/2017) + + + + + + | Component | Value | Ref Range | Performed | Pathologist | | | | | At | Signature | + + + + + + | HDL | 24.3 (A) | 40 mg/dl | EXTERNAL | [...] +---------+ + + External Lab: Cholesterol, Total (10/03/2017) + +-------+ + + + | Component | Value | Ref Range | Performed | Pathologist | | | | | At | Signature | + +-------+ + + + | Cholesterol | 113 | 200 mg/dl | EXTERNAL | | [...] +---------+ + + External Lab: Cholesterol, LDL (10/03/2017) + +-------+ + + + | Component [...] + +---------+ + + External Lab: eGFR (10/03/2017) + +-------+ + + + | Component | Value | Ref Range | Performed | Pathologist | | | | | At | Signature | + +-------+ + + + | eGFR, | 28 | | EXTERNAL | | | External [...] + +---------+ + + External Lab: Creatinine (10/03/2017) + + + + + + | Component | Value | Ref Range | Performed | Pathologist | | | | | At | Signature | + + + + + + | Creatinine, | 2.29 (A) | 0.7 - 1.18 | EXTERNAL [...]
--- OUTSIDE RECORDS SUMMARY | ~2020-04-03 | XMS | Encounter Summary ---
Demographics + + + | Address | [address] | | | [place] [address] | + + + | Home Phone | | + + + | Preferred Language | Unknown | + + + | Marital Status | Single | + + + | Yarsanism Affiliation | Unknown | + + + | Race | Unknown | + + + | Ethnic Group | Unknown | + + + Author + + + | Author | [facility] | | | and [place] | + + + | Organization | [facility] | | | and [place] | + + + | Address | Unknown | + + + | Phone | Unavailable | + + + Support + + + + + | Name | Relationship | Address | Phone | + + + + + | Hi Dawn | ECON | [place] | | | | | [address] | | + + + + + | Atif Delgadillo | ECON | [place], [place] | | | | | [address] | | + + + + + | Caleb Dawn | ECON | Unknown | | + + + + + Care Team Providers + +------+ + | Care Brake Lining Curer Name | Role | Phone | + [...] NEPHROLOGY [address] | M, DO [address] | | | | | [address] | [place] | | | | | [place], [place] | [place] | | | | | [address] | [address] | | | | | [phone] | | | +--------+ + + + [...] | | | | | [address] [place], [place] | | | | | | [address] | | | | | | | [...] + + + | EXTERNAL LAB: [place] TYPE | Routin | 06/08/2015 | | Results for this | | NATURETIC PEPTIDE | e | | | procedure are in the | | | | | | results section. | + +--------+ + + + | EXTERNAL LAB: EGFR | Routin | 06/08/2015 | | Results [...] in this encounter Results External Lab: FATOUMATA (06/08/2015) + +--------+ + + + | Component | Value | Ref Range | Performed | Pathologist | | | | | At | Signature | + +--------+ + + + | BUN, | 58 (A) | 6 - 23 [...] + +---------+ + + External Lab: AST (06/08/2015) + +-------+ + + + | [...]
--- OUTSIDE RECORDS SUMMARY | ~2020-04-03 | XMS | Encounter Summary ---
Demographics + + + | Address | [address] | | | [place] [address] | + + + | Home Phone | | + + + | Preferred Language | Unknown | + + + | Marital Status | Single | + + + | Orthodox Affiliation | Unknown | + + + | Race | Unknown | + + + | Ethnic Group | Unknown | + + + Author + + + | Author | [facility] | | | and [place] | + + + | Organization | [facility] | | | and [place] | + + + | Address | Unknown | + + + | Phone | Unavailable | + + + Support + + + + + | Name | Relationship | Address | Phone | + + + + + | Hi Dawn | ECON | [place] | | | | | [address] | | + + + + + | Atif Delgadillo | ECON | [place], [place] | | | | | [address] | | + + + + + | Caleb Dawn | ECON | Unknown | | + + + + + Care Team Providers + +------+ + | Care Video Presentation Operator Name | Role | Phone | [...] | kidney | MD [address] | | | | | disease, | [place] | [place], [place] | | | | | stage 3 | [address] | [address] | | | | | (moderate) | [place], | [place] | | | | | (HCC) | [place] | [address] Phone: | | | | | Hypertension | [address] | [phone] | | | | | , essential | Phone: | Fax: | | | | | Type 2 | [phone] | [phone] | | | | | diabetes | Fax: | | | | | | mellitus | [phone] | | | | | | with stage 3 | | | | | | | chronic | | | | | | | kidney | | | | | | | disease | | | | | | | (HCC) | | | | | | | Procedures | | | | | | | [place] OFFICE | | | | | | | OUTPATIENT | | | | | | | VISIT 25 | | | | | | | MINUTES | | | +--------+--------+ + + + + Encounter Details +--------+ + + + + | Date | Type | Department | Care Team | Description | +--------+ + + + + | 07/03/ | Off-Site | [facility] | Freddy Sanchez | Type 2 diabetes | | 2017 | Visit | NEPHROLOGY [address] | M, DO [address] | mellitus with stage | | | | [address] | [place] | 3 chronic kidney | | | | [place], [place] | [place] | disease, without | | | | [address] | [address] | long-term current | | | | [phone] | | use of insulin (HCC) | [...] 130/80; | | | | | | Secondary [...] + + + | Blood Pressure | 144/70 | 07/03/2017 1:39 PM | | | | | PDT | | + + + + + | Pulse | - | - | | + + + + + | Temperature | 36.6 C (97.8 F) | 07/03/2017 1:39 PM | | | | | PDT [...] | 129 kg (284 lb 6.3 | 07/03/2017 1:39 PM | | | | oz) | PDT | | + + + + + | Height | - | - | | + + + + + | Body Mass Index | 35.55 | 10/29/2015 1:56 PM | | | | | PST | | + + + + + documented in this encounter Progress Notes Freddy Sanchez DO - 07/03/2017 3:00 PM PDT Subjective: NEPHROLOGY Patient ID: Steve Tanner is a 72 y.o. male. 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 He also has a history of a remote DU, 2013, hypertension, hyperlipidemia, DJD of knees, SHPTH, ASCVD, s /p left CEA, 2005, anemia secondary to CKD, and Type 2 DM. He denies worsening edema, dyspnea, hiccups, pruritus, or cramps. He denies any claudicati on. He does appear to follow his meds meticulously. Outpatient Prescriptions Marked as Taking for the 07/03/17 encounter (Off-Site Visit) with Olayinka Sanchez DO [...] BREAKFAST AN D DINNER) 60 tablet 6 empagliflozin (JARDIANCE) 10 mg tablet Take 10 [...] (ELOCON) 0.1 % cream Apply topically Daily. [place]-3 Fatty Acids (FISH OIL) 1200 MG CAPS Take 1,200 mg by mouth 2 times daily. rosuvastatin (CRESTOR) 5 MG tablet Take 5 mg by mouth Three times a week. terbinafine (LAMISIL) 250 MG tablet Take 250 mg by mouth Daily. For 90 days, then, off for 90 days. Allergies Allergen Reactions Lisinopril Other (See Comments) Cough Penicillins Rash Objective: BP 144/70 | Temp 36.6 C (97.8 F) | Wt 129 kg (284 lb 6.3 oz) | BMI 35.55 kg/m Physical Exam Heart: RRR with no S3, S4, murmur or rub. Lungs: CTA bilaterally. No rales or wheezes. Abdomen: Soft, obese, normoactive bowel sounds. Extremities: Trace edema, no clubbing, cyanosis; no foot ulcers. Lab Results Component Value Date NAEX 140 06/29/2017 KEX 4 06/29/2017 CLEX 101 06/29/2017 CO2EX 24 06/29/2017 BUNEX 41 (A) 06/29/2017 CREEX 2.37 (A) 06/29/2017 EGFREX 27 06/29/2017 GLUEX 85 06/29/2017 PHOSEX 3.7 06/29/2017 PTHEX 158.2 (A) 06/29/2017 RNX0GCF 5.9 06/29/2017 Lab Results Component Value Date WBCEX 6.8 06/29/2017 HGBEX 14.3 06/29/2017 HCTEX 41.8 06/29/2017 PLTEX 142 06/29/2017 Lab Results Component Value Date CRCLEARANCE 36.0 (A) 06/29/2017 PROTEX 113 06/29/2017 Assessment: 1. CKD Stage 3, secondary to diabetic glomerulosclerosis and HTN-- over time, his Ccr is s lowly worsening. 2. Hypertension--good control. 3. Type 2 DM--excellent control. 4. SHPTH-- suboptimal control. 5. 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 6. ASCVD/ s/p left CEA, 2005--stable. 7. Hyperlipidemia--on statin Rx. 8. Gout-- quiescent. Plan: 1. I had a long discussion with Dr. Wilson, that despite his best efforts his GFR does ap pear to be slowly worsening over time. He does appear to be doing admirable job with lifest yle and risk factor modification. In fact his glycemic control appears excellent. I did di scuss that despite the best of circumstances, unfortunately, diabetic glomerulosclerosis can progress over time. 2. I encouraged him that he is doing a good job of BP control. 3. I concur with the use of losartan for its renoprotective effect. 4. In regards to his SH PTH, he states that he is taking calcitriol daily. Will observe t his one more time and if PTH not improved he may need a higher dose? e.g. a 1 mcg dose, james tovar. 5. Will plan to see him back in 6 months on 12/25/17 at [facility]. He will have CBC, CMP, PO4, HbA1c, iPTH, lipid profile, and 24 Hr urine one week prior to th at. : Hema Gregory MD, [place] , [place] documented in th is encounter [...] [place] | | | | | | [id number] | | | | | | | | +--------+---------+ + + + documented as of this encounter Procedures + +--------+ + + + | Procedure Name | Priori | Date/Time | Associated Diagnosis | Comments | | | ty | | | | + +--------+ + + + | LABS - EXTERNAL SCAN | | 06/29/2017 | Chronic kidney | Results for this | | | | 12:00 AM | disease, stage III | procedure are in the | | | | PDT | (moderate) Type 2 | results section. | | | | | diabetes mellitus | | | | | | with stage 3 chronic | | | | | | kidney disease, | | | | | | without long-term | | | | | | current use of | | | | | | insulin (HCC) | | | | | | Essential | | | | | | hypertension with | | | | | | goal blood pressure | | | | | | less than 130/80 | | | | | | Secondary | | | | | | hyperparathyroidism | | | | | | of renal origin | | | | | | (HCC) | | + +--------+ + + + documented in this encounter Results LABS - EXTERNAL SCAN (06/29/2017 12:00 AM PDT) + + + | [...] less than 130/80 | + + | Secondary hyperparathyroidism of renal origin (HCC) Secondary hyperparathyroidism (of | | renal origin) | + + documented in this encounter"
--- OUTSIDE RECORDS SUMMARY | ~2020-04-03 | XMS | Encounter Summary ---
Demographics + + + | Address | [address] | | | [place] [address] | + + + | Home Phone [...] [place] | | | | | [address] | | + + + + + | Atif Delgadillo | ECON | [place], [place] | | | | | [address] | | + + + + + | Caleb Dawn | ECON | Unknown | | + + + + + Care Team Providers + +------+ + | Care Slitter Service And Setter Name | Role | Phone | + +------+ + PCP | Unavailable | + +------+ + Encounter Details +--------+ + + + + | Date | Type | Department | Care Team | Description | +--------+ + + + + | 12/23/ | Off-Site | [facility] | Freddy Sanchez | Acute GI bleeding | | 2013 | Visit | NEPHROLOGY [address] | M, DO [address] | (Primary Dx); | | | | [address] | [place] | Unspecified | | | | [place], [place] | [place], [place] | hypertensive kidney | | | | [address] | [address] | disease with chronic | | | | [phone] | | kidney disease | | | | | | stage I through | | | | | | stage IV, or | | | | | | unspecified(403.90); | | | | | | Gastric ulcer with | | | | | | hemorrhage; Chronic | | | | | | kidney disease, | | | | | | stage III (moderate) | +--------+ + + + + Social [...] + + + | Blood Pressure | 130/70 | 12/23/2013 9:09 AM | | | | | PST | | + + + + + | Pulse | - | - | | + + + + + | Temperature | 34.7 C (94.5 F) | 12/23/2013 9:09 AM | | | | | PST [...] + + + + | Weight | 124.8 kg (275 lb 2.2 | 12/23/2013 9:09 AM | | | | oz) | PST | | + + + + + | Height | - | - | | + + + + + | Body Mass Index | 34.39 | 12/14/2013 4:01 PM | | | | | PST | | + + + + + documented in this encounter Progress Freddy Pierce DO - 12/24/2013 9:11 AM PST Subjective: NEPHROLOGY Patient ID: SERGEI TANNER is a 68 y.o. male. 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 He did receive a total of 5 units of PRBC'S. He was DC'd on PO Carafate and omeprazole. He also had recurrent chest pain radiating to his arms, but this resolved with the additio n of carafate. In addition, due to his risk factors he underwent Regadenason-cardiolite str ess testing with Dr. Baca, which was negative. He also has anemia secondary to CKD, H TN, hyperlipidemia, gout, ASCVD, s/p left CEA, 2006, and QUIANA. He states that he is feeling stronger. He inquires about whether he should go back on his simvastatin? Secondly, his main complaint is left knee pain, which mainly with weight bearing. He state s that it is not warm. His home BG's are stable at 92-109. Outpatient Prescriptions Marked as Taking for the 12/23/13 encounter (Off-Site Visit) with Roxana Sanchez, DO Medication Sig Dispense Refill allopurinol (ZYLOPRIM) 100 mg tablet Take 2 tablets by mouth Daily. 30 tablet 0 calcitriol (ROCALTROL) 0.25 mcg capsule Take 0.25 mcg by mouth Daily. [DISCONTINUED] calcitRIOL (ROCALTROL) 0.5 MCG capsule Take 1 capsule by mouth Daily. 9 0 capsule 4 carvedilol (COREG) 12.5 mg tablet Take 1 tablet by mouth 2 times daily (with breakfast & dinner). 60 tablet 3 furosemide (LASIX) 20 mg tablet Take 20 mg by mouth Daily. [DISCONTINUED] furosemide (LASIX) 40 mg tablet --On hold. 30 tablet 11 [DISCONTINUED] gemfibrozil (LOPID) 600 mg tablet Take 600 mg by mouth 2 times daily (be fore meals). Linagliptin (TRADJENTA) 5 MG TABS Take 5 mg by mouth Daily. [DISCONTINUED] loratadine-pseudoePHEDrine (CLARITIN-D 12 HOUR) 5-120 mg per tablet Take 1 tablet by mouth as needed. [DISCONTINUED] mometasone (ELOCON) 0.1 % cream Apply topically Daily as needed. niacin 500 mg tablet Take 500 mg by mouth 2 times daily. nitroglycerin (NITROSTAT) 0.[address] 0.4 mg under the tongue every 5 minute s as needed. omeprazole (PRILOSEC) 40 MG capsule Take 1 capsule by mouth Daily. 90 capsule 3 oxyCODONE-acetaminophen (PERCOCET) 5-325 mg per tablet Take 1 tablet by mouth every 6 h ours as needed. [DISCONTINUED] simvastatin (ZOCOR) 10 mg tablet Take 10 mg by mouth nightly. sucralfate (CARAFATE) 1 g tablet Take 1 tablet by mouth 4 times daily. 120 tablet 2 [DISCONTINUED] terbinafine (LAMISIL) 250 MG tablet Take 250 mg by mouth Daily. tAllergies Allergen Reactions Atorvastatin Lisinopril Penicillins Rash Review of Systems Objective: BP 130/70 | Temp 34.7 C (94.5 F) | Wt 124.8 kg (275 lb 2.2 oz) Physical Exam Heart: Regular rate and rhythm with no S3, S4, murmur or rub. Lungs: CTA bilaterally. No rales or wheezes. Abdomen: Soft, flat, no epigastric tenderness, normoactive bowel sounds. Extremities: 2+ edema, left > right. Some pain with ROM left knee, not warm, small effusio n. No asterixis. LAB: BUN 26, Cr 1.59, K+ 4.6, HCO3 24, Ca++ 9.2, PO4 not done, H/H = 9.1/27.4, MDRD = 43 ml/min. Assessment: 1. CKD Stage 3, secondary to diabetic glomerulosclerosis and HTN--Scr is below baseline, a s he is very volume expanded after IV NS , during his recent admit. 2. Anemia secondary to bleeding + CKD--his Hb is improved from DC. 3. Recent , on EGD, 12/16/13--improving of carafate/omeprazole. 4. SHPTH--stable. 5. Hypertension--ARB and ACEI are on hold due to recent BEN, and GI bleeding. 6. Type 2 DM--good control. 7. ASCVD/ s/p left CEA, 2005--stable. 8. Hyperlipidemia--I concur, he could benefit from a statin terminal worker. 9. Gout--stable. I don't think today's knee pain is secondary to acute gout? I am wonder ing if he may have DJD of his right knee? Plan: 1. Clinically, he appears to be above his "dry wt." Therefore, will start his prior lasix which he has in his possession, at 20 mg, daily, x 5 days only. 2. Will defer his Olmesartan for now, until he is further out from the recent BEN, last mo nth. 3. His Hb appears to be improving with time, EPO, and IV Ferrlecit ,which he received insahil parra. 4. I spoke with [facility] . Apparently, they will not accept any outpt o rders form myself or Dr. Garza, as neither of us have courtesy privileges. His next dose i s due on 12/25/13. Will have him drive to [facility], for Aranesp 60 mcg, SQ, x1 unti l I can make alternative arrangements with Dr. Garza. 5. Would be in favor of simvastatin alone for his cholesterol, as well as there is data th at it slows CKD. However, will defer that to Dr. Garza. I would not be in favor of simvas tatin/Niacin/gemfibrozil as concurrent use associated with increased risk of rhabdomyolysis in patients. 6. He may need Orthopedic evaluation of his left knee pain, or MRI, as it appears to be re current? He has an appointment in the next [address] Garza. 7. Will plan to see him back on 02/17/14 at the [facility], /[place], [place], which Dr. Saleh ht agreed to come down for. He will have an H/H, CMP, PO4, lipid profile, PTH, and 24 Hr ur ine 1 week prior to that. CC: Hema English MD documented in thi s encounter Plan of Treatment +--------+---------+ + + + | Date | Type | Specialty | Care Team | Description | +--------+---------+ + + + | 05/20/ | Office | Cardiology | Yumiko Del Valle, | | | 2019 | Visit | | MD Lupe TYLER | | | | | | [place], [place] | | | | | | [address] | | | | | | | | +--------+---------+ + + + documented as of this encounter Visit Diagnoses + + | Diagnosis | + + | Acute GI bleeding - Primary Hemorrhage of gastrointestinal tract, unspecified | + + | Unspecified hypertensive kidney disease with chronic kidney disease stage I through | | stage IV, or unspecified(403.90) Unspecified hypertensive kidney disease with chronic | | kidney disease stage I through stage IV, or unspecified | + + | Gastric ulcer with hemorrhage Chronic or unspecified gastric ulcer with hemorrhage, | | without mention of obstruction | + + | Chronic kidney disease, stage III (moderate) (HCC) Chronic kidney disease, Stage III | | (moderate) | + + documented in this encounter
--- OUTSIDE RECORDS SUMMARY | ~2020-04-03 | XMS | Encounter Summary ---
Demographics + + + | Address | [address] | | | [place] [address] | + + + | Home Phone | | + + + | Preferred Language | Unknown | + + + | Marital Status | Single | + + + | Sikh Affiliation | Unknown | + + + | Race | Unknown | + + + | Ethnic Group | Unknown | + + + Author + + + | Author | [facility] | | | and [place] | + + + | Organization | [facility] | | | and [place] | + + + | Address | Unknown | + + + | Phone | Unavailable | + + + Support + + + + + | Name | Relationship | Address | Phone | + + + + + | Hi Dawn | ECON | [place] | | | | | [address] | | + + + + + | Atif Delgadillo | ECON | [place], [place] | | | | | [address] | | + + + + + | Caleb Dawn | ECON | Unknown | | + + + + + Care Team Providers + +------+ + | Care Supply Specialist Name | Role | Phone | + +------+ + PCP | Unavailable | + +------+ + Encounter Details +--------+ + + + + | Date | Type | Department | Care Team | Description | +--------+ + + + + | 05/21/ | Hospital | [facility] | Saad Ivan | | | 2006 | Encounter | MED CTR SLEEP | MD Tomás [address] | | | | | [place] [address] | [facility] | | | | | [place] | [place] [address] | | | | | [address] | [phone] | | | | | [phone] | | | +--------+ + + + [...] [place] | | | | | | [address] | | | | | | | | +--------+---------+ + + + documented as of this encounter Visit Diagnoses Not on filedocumented in this encounter"
--- OUTSIDE RECORDS SUMMARY | ~2020-04-03 | XMS | Encounter Summary ---
Demographics + + + | Address | [address] | | | [place] [address] | + + + | Home Phone | | + + + | Preferred Language | Unknown | + + + | Marital Status | Single | + + + | Congregation Affiliation | Unknown | + + + [...] [place] | | | | | [address] | | + + + + + | Atif Delgadillo | ECON | [place], [place] | | | | | [address] | | + + + + + | Caleb Dawn | ECON | Unknown | | + + + + + Care Team Providers + +------+ + | Care Space Operations Officer Name | Role | Phone | [...] | | [address] | [place] | Unspecified | | | | [place], [place] | [place], [place] | hypertensive kidney | | | | [address] | [address] | disease with chronic | | | | [phone] | | kidney disease | | | [...] 2 DM, who was recently DC'd from [facility] on 12/18/13 with UGI bleeding from a [...] concur, he could benefit from a statin long term care administrator. 9. Gout--stable. I don't think today's knee [...] on 12/25/13. Will have him drive to [place], for Aranesp 60 mcg, SQ, x1 unti [...] see him back on 02/17/14 at the [facility], /[place], [place], which Dr. Saleh ht agreed to come [...] | | | | | [place] [address] [place], [place] | | | | | | [address] | | | | | | | [...]
--- OUTSIDE RECORDS SUMMARY | ~2020-04-03 | XMS | Encounter Summary ---
Demographics + + + | Address | [address] | | | [place] [address] | + + + | Home Phone | | + + + | Preferred Language | Unknown | + + + | Marital Status | Single | + + + | Alevism Affiliation | Unknown | + + + [...] [place] | | | | | [address] | | + + + + + | Atif Delgadillo | ECON | [place], [place] | | | | | [address] | | + + + + + | Caleb Dawn | ECON | Unknown | | + + + + + Care Team Providers + +------+ + | Care Technology Officer Name | Role | Phone | + +------+ + PCP | Unavailable | + +------+ + Encounter Details +--------+ + + + + | Date | Type | Department | Care Team | Description | +--------+ + + + + | 06/02/ | Abstract | [facility] | Freddy Sanchez | | | 2016 | | NEPHROLOGY [address] | M, DO [address] | | | | | [address] | [place] | | | | | [place], [place] | [place] | | | | | [address] | [address] | | | | | [phone] | | | +--------+ + + + [...] | | | | | [place], [place] | | | | | | [address] | | | | | | | | +--------+---------+ + + + documented as of this encounter Procedures + +--------+ + + + | Procedure Name | Priori | Date/Time | Associated Diagnosis | Comments | | | ty | | | | + +--------+ + + + | EXTERNAL LAB: FATOUMATA | Routin | 06/01/2016 | | Results for this | | | e | | | procedure are in the | | | | | | results section. | + +--------+ + + + | EXTERNAL LAB: | Routin | 06/01/2016 | | Results for this | | GLUCOSE | e | | | procedure are in the | | | | | | results section. | + +--------+ + + + | EXTERNAL LAB: ALT | Routin | 06/01/2016 | | Results for this | | | e | | | procedure are in the | | | | | | results section. | + +--------+ + + + | EXTERNAL LAB: AST | Routin | 06/01/2016 | | Results for this | | | e | | | procedure are in the | | | | | | results section. | + +--------+ + + + | EXTERNAL LAB: | Routin | 06/01/2016 | | Results for this | | ALKALINE PHOSPHATASE | e | | | procedure are in the | | | | | | results section. | + +--------+ + + + | EXTERNAL LAB: | Routin | 06/01/2016 | | Results for this | | BILIRUBIN, TOTAL | e | | | procedure are in the | | | | | | results section. | + +--------+ + + + | EXTERNAL LAB: | Routin | 06/01/2016 | | Results for this | | ALBUMIN | e | | | procedure are in the | | | | | | results section. | + +--------+ + + + | EXTERNAL LAB: | Routin | 06/01/2016 | | Results for this | | PROTEIN, TOTAL | e | | | procedure are in the | | | | | | results section. | + +--------+ + + + | EXTERNAL LAB: | Routin | 06/01/2016 | | Results for this | | CALCIUM | e | | | procedure are in the | | | | | | results section. | + +--------+ + + + | EXTERNAL LAB: CARBON | Routin | 06/01/2016 | | Results for this | | DIOXIDE | e | | | procedure are in the | | | | | | results section. | + +--------+ + + + | EXTERNAL LAB: | Routin | 06/01/2016 | | Results for this | | CHLORIDE | e | | | procedure are in the | | | | | | results section. | + +--------+ + + + | EXTERNAL LAB: | Routin | 06/01/2016 | | Results for this | | POTASSIUM | e | | | procedure are in the | | | | | | results section. | + +--------+ + + + | EXTERNAL LAB: SODIUM | Routin | 06/01/2016 | | Results for this | | | e | | | procedure are in the | | | | | | results section. | + +--------+ + + + | EXTERNAL LAB: | Routin | 06/01/2016 | | Results for this | | PROTEIN, URINE, 24HR | e | | | procedure are in the | | | | | | results section. | + +--------+ + + + | EXTERNAL LAB: CBC | Routin | 06/01/2016 | | Results for this | | | e | | | procedure are in the | | | | | | results section. | + +--------+ + + + | EXTERNAL LAB: | Routin | 06/01/2016 | | Results for this | | TRIGLYCERIDES | e | | | procedure are in the | | | | | | results section. | + +--------+ + + + | EXTERNAL LAB: | Routin | 06/01/2016 | | Results for this | | CHOLESTEROL, HDL | e | | | procedure are in the | | | | | | results section. | + +--------+ + + + | EXTERNAL LAB: | Routin | 06/01/2016 | | Results for this | | CHOLESTEROL, TOTAL | e | | | procedure are in the | | | | | | results section. | + +--------+ + + + | EXTERNAL LAB: | Routin | 06/01/2016 | | Results for this | | CHOLESTEROL, LDL | e | | | procedure are in the | | | | | | results section. | + +--------+ + + + | EXTERNAL LAB: EGFR | Routin | 06/01/2016 | | Results for this | | | e | | | procedure are in the | | | | | | results section. | + +--------+ + + + | EXTERNAL LAB: | Routin | 06/01/2016 | | Results for this | | CREATININE | e | | | procedure are in the | | | | | | results section. | + +--------+ + + + | CREATININE | Routin | 06/01/2016 | | Results for this | | CLEARANCE, RESULT | e | | | procedure are in the | | | | | | results section. | + +--------+ + + + | HEMOGLOBIN A1C | Routin | 06/01/2016 | | Results for this | | | e | | | procedure are in the | | | | | | results section. | + +--------+ + + + | EXTERNAL LAB: CBC | Routin | 02/23/2016 | | Results for this | | | e | 11:00 AM | | procedure are in the | | | | PDT | | results section. | + +--------+ + + + documented in this encounter Results Creatinine Clearance, Result (06/01/2016) + + + + + + | Component | Value | Ref Range | Performed | Pathologist | | | | | At | Signature | + + + + + + | CREATININE | 57.0 (A) | 97.0 - 137.0 | [facility] | | | CLEARANCE | | mL/min | [facility] | | | [facility] | | | | [facility] - | | | | | | LABORATORY | | + + + + + + | 24H Urine | 3,500 | mL | [facility] | | | Volume | | | [facility] | | | | | | [facility] | | | | | | [facility] - | | | | | | LABORATORY | | + + + + + + + + | Specimen | + + | Urine specimen | | (specimen) | + + + + + + + | Performing | Address | City/State/Zipcode | Phone Number | | Organization | | | | + + + + + | [facility] | [address] | [place] | [phone] | | [facility] | | [address] | | | - LABORATORY | | | | + + + + + External Lab: Protein, Urine, 24Hr (06/01/2016) + +-------+ + + + | Component | Value | Ref Range | Performed | Pathologist | | | | | At | Signature | + +-------+ + + + | Protein, | 175 | | EXTERNAL | | | Urine 24Hr, | | | LAB | | | External | | | | | + +-------+ + + + + + | Specimen | + + | Urine specimen | | (specimen) | + + + + | Resulting Agency Comment | + + | [facility] | + + + +---------+ + + | Performing | Address | City/State/Zipcode | Phone Number | | Organization | | | | + +---------+ + + | EXTERNAL LAB | | | | + +---------+ + + Hemoglobin A1C (06/01/2016) + +-------+ + + + | Component [...] + +---------+ + + External Lab: FATOUMATA (06/01/2016) + +--------+ + + + | Component | Value | Ref Range | Performed | Pathologist | | | | | At | Signature | + +--------+ + + + | FATOUMATA, | 35 (A) | 6 - 23 | EXTERNAL [...] + +---------+ + + External Lab: Glucose (06/01/2016) + +---------+ + + + | Component | Value | Ref Range | Performed | Pathologist | | | | | At | Signature | + +---------+ + + + | Glucose, | 148 (A) | 70 - 100 | EXTERNAL [...] + +---------+ + + External Lab: ALT (06/01/2016) + +-------+ + + + | Component | Value | Ref Range | Performed | Pathologist | | | | | At | Signature | + +-------+ + + + | ALT, | 28 | 7 - 52 | EXTERNAL | [...] + +---------+ + + External Lab: ORION (06/01/2016) + +-------+ + + + | Component | Value | Ref Range | Performed | Pathologist | | | | | At | Signature | + +-------+ + + + | AST, | 17 | 13 - 39 | EXTERNAL | [...] +---------+ + + External Lab: Alkaline Phosphatase (06/01/2016) + +-------+ + + + | Component [...] +---------+ + + External Lab: Bilirubin, Total (06/01/2016) + +-------+ + + + | Component [...] + +---------+ + + External Lab: Albumin (06/01/2016) + +-------+ + + + | Component [...] +---------+ + + External Lab: Protein, Total (06/01/2016) + +-------+ + + + | Component [...] + +---------+ + + External Lab: Calcium (06/01/2016) + +-------+ + + + | Component | Value | Ref Range | Performed | Pathologist | | | | | At | Signature | + +-------+ + + + | Calcium, | 9.9 | 8.4 - 10.2 | EXTERNAL | [...] +---------+ + + External Lab: Carbon Dioxide (06/01/2016) + +-------+ + + + | Component | Value | Ref Range | Performed | Pathologist | | | | | At | Signature | + +-------+ + + + | Carbon | 29 | 19 - 31 | EXTERNAL | [...] + +---------+ + + External Lab: Chloride (06/01/2016) + +-------+ + + + | Component [...] + +---------+ + + External Lab: Potassium (06/01/2016) + +-------+ + + + | Component | Value | Ref Range | Performed | Pathologist | | | | | At | Signature | + +-------+ + + + | Potassium, | 4.3 | 3.6 - 5.1 | EXTERNAL | [...] + +---------+ + + External Lab: Sodium (06/01/2016) + +-------+ + + + | Component [...] + +---------+ + + External Lab: CBC (06/01/2016) + + + + + + | Component | Value | Ref Range | Performed | Pathologist | | | | | At | Signature | + + + + + + | HGB, | 13.3 (A) | 13.5 - 18 | EXTERNAL | | | External | | | LAB | | + + + + + + | HCT, | 39 (A) | 41 - 50 | EXTERNAL | | | External | | | LAB | | + + + + + + | PLT, | 130 (A) | 140 - 440 | EXTERNAL | | | External | | | LAB | | + + + + + + | RBC, | 4.31 | 4.3 - 5.7 | EXTERNAL | | | External | | | LAB | | + + + + + + | MCV, | 91 | 81 - 99 | EXTERNAL | | | External | | | LAB | | + + + + + + | RDW, | 14.5 | 10.5 - 15 | EXTERNAL | [...] + +---------+ + + External Lab: eGFR (06/01/2016) + +-------+ + + + | Component | Value | Ref Range | Performed | Pathologist | | | | | At | Signature | + +-------+ + + + | eGFR, | 34 | | EXTERNAL | | | External [...] + +---------+ + + External Lab: Creatinine (06/01/2016) + + + + + + | Component | Value | Ref Range | Performed | Pathologist | | | | | At | Signature | + + + + + + | Creatinine, | 1.95 (A) | 0.7 - 1.18 | EXTERNAL [...] + +---------+ + + External Lab: Triglycerides (06/01/2016) + +---------+ + + + | Component | Value | Ref Range | Performed | Pathologist | | | | | At | Signature | + +---------+ + + + | Triglycerid | 217 (A) | 30 - 150 | EXTERNAL [...] +---------+ + + External Lab: Cholesterol, HDL (06/01/2016) + + + + + + | Component | Value | Ref Range | Performed | Pathologist | | | | | At | Signature | + + + + + + | HDL | 33.3 (A) | 40 mg/dl | EXTERNAL | [...] +---------+ + + External Lab: Cholesterol, Total (06/01/2016) + +-------+ + + + | Component | Value | Ref Range | Performed | Pathologist | | | | | At | Signature | + +-------+ + + + | Cholesterol | 154 | 200 mg/dl | EXTERNAL | | [...] +---------+ + + External Lab: Cholesterol, LDL (06/01/2016) + +-------+ + + + | Component | Value | Ref Range | Performed | Pathologist | | | | | At | Signature | + +-------+ + + + | LDL | 77 | 100 | EXTERNAL | | | [...] + +---------+ + + External Lab: CBC (02/23/2016 11:00 AM PDT) + +-------+ + + + | Component | Value | Ref Range | Performed | Pathologist | | | | | At | Signature | + +-------+ + + + | WBC, | 6 | 4.5 - 44 | EXTERNAL | | | External | [...]
--- OUTSIDE RECORDS SUMMARY | ~2020-04-03 | XMS | Encounter Summary ---
Demographics + + + | Address | [address] | | | [place] [address] | + + + | Home Phone [...] [place] | | | | | [address] | | + + + + + | Atif Delgadillo | ECON | [place], [place] | | | | | [address] | | + + + + + | Caleb Dawn | ECON | Unknown | | + + + + + Care Team Providers + +------+ + | Care Manager Of Hospital Name | Role | Phone | + +------+ + PCP | Unavailable | + +------+ + Encounter Details +--------+ + + + + | Date | Type | Department | Care Team | Description | +--------+ + + + + | 04/09/ | Hospital | [facility] | Saad Ivan | | | 2006 | Encounter | MED CTR SLEEP | MD Tomás [address] | | | | | [place] [address] [place] | [place] [facility] | | | | | [place] | [place] [address] | | | | | [address] | [phone] | | | | | [phone] | | | +--------+ + + + [...] [place] | | | | | | [address] | | | | | | | | +--------+---------+ + + + documented as of this encounter Visit Diagnoses Not on filedocumented in this encounter"
--- OUTSIDE RECORDS SUMMARY | ~2020-04-03 | XMS | Encounter Summary ---
Demographics + + + | Address | [address] | | | [place] [address] | + + + | Home Phone [...] [place] | | | | | [address] | | + + + + + | Atif Delgadillo | ECON | [place], [place] | | | | | [address] | | + + + + + | Caleb Dawn | ECON | Unknown | | + + + + + Care Team Providers + +------+ + | Care Catalyst Operator Name | Role | Phone | + +------+ + PCP | Unavailable | + +------+ + Encounter Details +--------+ + + + + | Date | Type | Department | Care Team | Description | +--------+ + + + + | 11/04/ | Abstract | [facility] | Freddy Sanchez | Chronic kidney | | 2013 | | NEPHROLOGY [address] | M, DO [address] | disease, stage III | | | | [address] | [place], [address] | (moderate) (Primary | | | | [place], [place] | [place], [place] | Dx); Hypertension | | | | [address] | [address] | | | | | [phone] | | | +--------+ + + + [...] this encounter Progress Imani Springer RN - 11/04/2014 11:51 AM PSTLabs for nephrology appt on 12/01/14 sent to glenda rose documented in this encounter Plan of Treatment +--------+---------+ + + + | Date | Type | Specialty | Care Team | Description | +--------+---------+ + + + | 05/20/ | Office | Cardiology | Yumiko Del Valle, | | | 2019 | Visit | | MD Lupe TYLER | | | | | | [place], [place] | | | | | | [address] | | | | | | | [...]
--- OUTSIDE RECORDS SUMMARY | ~2020-04-03 | XMS | Encounter Summary ---
Demographics + + + | Address | [address] | | | [place] [address] | + + + | Home Phone | | + + + | Preferred Language | Unknown | + + + | Marital Status | Single | + + + | Confucianist Affiliation | Unknown | + + + | Race | Unknown | + + + | Ethnic Group | Unknown | + + + Author + + + | Author | [facility] | | | and [place] | + + + | Organization | [facility] | | | and [place] | + + + | Address | Unknown | + + + | Phone | Unavailable | + + + Support + + + + + | Name | Relationship | Address | Phone | + + + + + | Hi Dawn | ECON | [place] | | | | | [address] | | + + + + + | Atif Delgadillo | ECON | [place], [place] | | | | | [address] | | + + + + + | Caleb Dawn | ECON | Unknown | | + + + + + Care Team Providers + +------+ + | Care Outside Plant Engineer Name | Role | Phone | + +------+ + PCP | Unavailable | + +------+ + Encounter Details +--------+ + + + + | Date | Type | Department | Care Team | Description | +--------+ + + + + | 08/30/ | Abstract | [facility] | Freddy Sanchez | | | 2012 | | NEPHROLOGY [address] | M, DO [address] | | | | | [address] | [place] | | | | | [place], [place] | [place]ON | | | | | [address] | [address] | | | | | [phone] | | | +--------+ + + + [...] | | | | | [place], [place] | | | | | | [address] | | | | | | | | +--------+---------+ + + + documented as of this encounter Procedures + +--------+ + + + | Procedure Name | Priori | Date/Time | Associated Diagnosis | Comments | | | ty | | | | + +--------+ + + + | EXTERNAL LAB: CBC | Routin | 08/30/2013 | | Results for this | | | e | | | procedure are in the | | | | | | results section. | + +--------+ + + + | EXTERNAL LAB: AST | Routin | 08/30/2013 | | Results for this | | | e | | | procedure are in the | | | | | | results section. | + +--------+ + + + | EXTERNAL LAB: ALT | Routin | 08/30/2013 | | Results for this | | | e | | | procedure are in the | | | | | | results section. | + +--------+ + + + | EXTERNAL LAB: EGFR | Routin | 08/30/2013 | | Results for this | | | e | | | procedure are in the | | | | | | results section. | + +--------+ + + + | EXTERNAL LAB: | Routin | 08/30/2013 | | Results for this | | CREATININE | e | | | procedure are in the | | | | | | results section. | + +--------+ + + + | CMP14+LP+CBC/D/PLT+T | Routin | 08/30/2013 | | Results for this | | SH+UA/M (NON ORD) | e | | | procedure are in the | | | | | | results section. | + +--------+ + + + documented in this encounter Results CMP14+LP+CBC/D/Plt+TSH+UA/M (08/30/2013) + + + + + + | Component | Value | Ref Range | Performed | Pathologist | | | | | At | Signature | + + + + + + | Na | 140 | mmol/L | EXTERNAL | | | | | | LAB | | + + + + + + | K | 4.7 | mmol/L | EXTERNAL | | | | | | LAB | | + + + + + + | Cl | 106 | mmol/L | EXTERNAL | | | | | | LAB | | + + + + + + | CO2 | 23 | mmol/L | EXTERNAL | | | | | | LAB | | + + + + + + | BUN | 75 | mg/dL | EXTERNAL | | | | | | LAB | | + + + + + + | Glucose | 119 | mg/dL | EXTERNAL | | | | | | LAB | | + + + + + + | Calcium | 9.5 | mg/dL | EXTERNAL | | | | | | LAB | | + + + + + + | PTH INTACT | 150.9 | pg/mL | EXTERNAL | | | | | | LAB | | + + + + + + | Phosphorus | 4.2 (A) | 2.1 - 3.9 mg/dL | EXTERNAL | | | | | | LAB | | + + + + + + | MCV | 95.1 | 80.0 - 100.0 fL | EXTERNAL | | | | | | LAB | | + + + + + + | Bilirubin | 0.4 | 0.1 - 1.5 mg/dL | EXTERNAL | | | Total | | | LAB | | + + + + + + | Alkaline | 70 | 35 - 115 U/L | EXTERNAL | | | Phosphatase | | | LAB | | + + + + + + | Albumin | 4.9 (A) | 3.3 - 4.8 g/dL | EXTERNAL | | | | | | LAB | | + + + + + + | CREATININE | 36.0 (A) | 97.0 - 137.0 | EXTERNAL | | | CLEARANCE | | mL/min | LAB | | + + + + + + | PROTEIN, | 228.0 | mg/24hrs | EXTERNAL | | | 24HR URINE | | | LAB | | + + + + + + + + | Specimen | + + | | + + + +---------+ + + | Performing | Address | City/State/Zipcode | Phone Number | | Organization | | | | + +---------+ + + | EXTERNAL LAB | | | | + +---------+ + + External Lab: CBC (08/30/2013) + +-------+ + + + | Component | Value | Ref Range | Performed | Pathologist | | | | | At | Signature | + +-------+ + + + | WBC, | 5.2 | 4 - 11 | EXTERNAL | | | External | | | LAB | | + +-------+ + + + | HGB, | 12.8 | 12 - 16 | EXTERNAL | | | External | | | LAB | | + +-------+ + + + | HCT, | 38.2 | 35 - 45 | EXTERNAL | | | External | | | LAB | | + +-------+ + + + | PLT, | 177 | 140 - 440 | EXTERNAL | | | External | | | LAB | | + +-------+ + + + + + | Resulting Agency Comment | + + | [facility] | + + + +---------+ + + | Performing | Address | City/State/Zipcode | Phone Number | | Organization | | | | + +---------+ + + | EXTERNAL LAB | | | | + +---------+ + + External Lab: AST (08/30/2013) + +-------+ + + + | Component [...] Resulting Agency Comment | + + | [facility] | + + + +---------+ + + | Performing | Address | City/State/Zipcode | Phone Number | | Organization | | | | + +---------+ + + | EXTERNAL LAB | | | | + +---------+ + + External Lab: ALT (08/30/2013) + +-------+ + + + | Component | Value | Ref Range | Performed | Pathologist | | | | | At | Signature | + +-------+ + + + | ALT, | 10 | 0 - 40 | EXTERNAL | | | External | | | LAB | | + +-------+ + + + + + | Specimen | + + | Blood specimen | | (specimen) | + + + + | Resulting Agency Comment | + + | [facility] | + + + +---------+ + + | Performing | Address | City/State/Zipcode | Phone Number | | Organization | | | | + +---------+ + + | EXTERNAL LAB | | | | + +---------+ + + External Lab: eGFR (08/30/2013) + +--------+ + + + | Component | Value | Ref Range | Performed | Pathologist | | | | | At | Signature | + +--------+ + + + | eGFR, | 23 (A) | 60 | EXTERNAL | | | External | | | LAB | | + +--------+ + + + | eGFR, | | | EXTERNAL | | | | | | LAB | | | Guyanese, | | | | | | External | | | | | + +--------+ + + + + + | Specimen | + + | Blood specimen | | (specimen) | + + + + | Resulting Agency Comment | + + | [facility] | + + + +---------+ + + | Performing | Address | City/State/Zipcode | Phone Number | | Organization | | | | + +---------+ + + | EXTERNAL LAB | | | | + +---------+ + + External Lab: Creatinine (08/30/2013) + + + + + + | Component | Value | Ref Range | Performed | Pathologist | | | | | At | Signature | + + + + + + | Creatinine, | 2.77 (A) | 0.6 - 1.3 | EXTERNAL | | | External | | | LAB | | + + + + + + + + | Specimen | + + | Blood specimen | | (specimen) | + + + + | Resulting Agency Comment | + + | [facility] | + + + +---------+ + + | Performing | Address | City/State/Zipcode | Phone Number | | Organization | | | | + +---------+ + + | EXTERNAL LAB | | | | + +---------+ + + documented in this encounter Visit Diagnoses Not on filedocumented in this encounter"
--- OUTSIDE RECORDS SUMMARY | ~2020-04-03 | XMS | Encounter Summary ---
Demographics + + + | Address | [address] | | | [place] [address] | + + + | Home Phone | | + + + | Preferred Language | Unknown | + + + | Marital Status | Single | + + + | Hoahaoism Affiliation | Unknown | + + + | Race | Unknown | + + + | Ethnic Group | Unknown | + + + Author + + + | Author | [facility] | | | and [place] | + + + | Organization | [facility] | | | and [place] | + + + | Address | Unknown | + + + | Phone | Unavailable | + + + Support + + + + + | Name | Relationship | Address | Phone | + + + + + | Hi Dawn | ECON | [place] | | | | | [address] | | + + + + + | Atif Delgadillo | ECON | [place], [place] | | | | | [address] | | + + + + + | Caleb Dawn | ECON | Unknown | | + + + + + Care Team Providers + +------+ + | Care Engineer Intern Name | Role | Phone | + +------+ + PCP | Unavailable | + +------+ + Encounter Details +--------+ + + + + | Date | Type | Department | Care Team | Description | +--------+ + + + + | 01/02/ | Abstract | [facility] | Logan Baca, | Light headedness | | 2013 | | CARDIOLOGY [address] | MD [address] | (Primary Dx); | | | | [place], | [place], | Hypertension; | | | | [place] [address] | [place] [address] | Hyperlipidemia; | | | | [phone] | [phone] | ASCVD | | | | | [...] 2019 | Visit | | MD Lupe TLYER | | | | | | [place], [place] | | | | | | [address] | | | | | | | [...]
--- OUTSIDE RECORDS SUMMARY | ~2020-04-03 | XMS | Encounter Summary ---
Demographics + + + | Address | [address] | | | [place] [address] | + + + | Home Phone | | + + + | Preferred Language | Unknown | + + + | Marital Status | Single | + + + | Religion Affiliation | Unknown | + + + | Race | Unknown | + + + | Ethnic Group | Unknown | + + + Author + + + | Author | [facility] | | | and [place] | + + + | Organization | [facility] | | | and [place] | + + + | Address | Unknown | + + + | Phone | Unavailable | + + + Support + + + + + | Name | Relationship | Address | Phone | + + + + + | Hi Dawn | ECON | [place] | | | | | [address] | | + + + + + | Atif Delgadillo | ECON | [place] | | | | | [address] | | + + + + + | Caleb Dawn | ECON | Unknown | | + + + + + Care Team Providers + +------+ + | Care Chalk Tester Name | Role | Phone | + [...] | kidney | MD [address] | [address] | | | | | disease, | [place] | [place], [place] | | | | | stage 3 | [place] [address] | [address] [place] | | | | | (moderate) | [place] | [place] | | | | | (HCC) | [place] | [address] Phone: | | | | | Hypertension | [address] | [phone] | | | | | , essential | Phone: | Fax: | | | | | Type 2 | [phone] | [phone] | | | | | diabetes | Fax: | | | | | | mellitus | [phone] | | | | | | with stage 3 | | | | | | | chronic | | | | | | | kidney | | | | | | | disease | | | | | | | (HCC) | | | | | | | Procedures | | | | | | | [place] OFFICE | | | | | | [...] | | [address] | [place], [address] | goal blood pressure | | | | [place], [place] | [place] | less than 130/80 | | | | [address] | [address] | (Primary Dx); | | | | [phone] | | Chronic kidney | | | [...] documented in this encounter Progress Notes Freddy Sacnhez DO - 12/31/2018 1:00 PM PST Subjective: [...] switch to glimepiride after consultation with his Telegraph Installer at [facility]. Outpatient Prescriptions Marked as Taking for the [...] (ELOCON) 0.1 % cream Apply topically Daily. 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 2. His BP control is stable. Will [...] prior to that. : Anoop Vargas MD, [facility] Yumiko Del Valle MD, [facility] Matheus Gregory MD, [facility], [place] documented in thi s encounter Plan of Treatment +--------+---------+ + + + | Date | Type | Specialty | Care Team | Description | +--------+---------+ + + + | 05/20/ | Office | Cardiology | Yumiko Del Valle, | | | 2019 | Visit | | MD Lupe TYLER | | | | | | [facility] [facility] | | | | | | [address] | | | | | | | [...]
--- OUTSIDE RECORDS SUMMARY | ~2020-04-03 | XMS | Encounter Summary ---
Demographics + + + | Address | [address] | | | [place] [address] | + + + | Home Phone | | + + + | Preferred Language | Unknown | + + + | Marital Status | Single | + + + | Mandaen Affiliation | Unknown | + + + | Race | Unknown | + + + | Ethnic Group | Unknown | + + + Author + + + | Author | [facility] | | | and [place] | + + + | Organization | [facility] | | | and [place] | + + + | Address | Unknown | + + + | Phone | Unavailable | + + + Support + + + + + | Name | Relationship | Address | Phone | + + + + + | Hi Dawn | ECON | [place] | | | | | [address] | | + + + + + | Atif Delgadillo | ECON | [place], [place] | | | | | [address] | | + + + + + | Caleb Dawn | ECON | Unknown | | + + + + + Care Team Providers + +------+ + | Care Primary Special Education Teacher Name | Role | Phone | + +------+ + PCP | Unavailable | + +------+ + Encounter Details +--------+ + + + + | Date | Type | Department | Care Team | Description | +--------+ + + + + | 10/20/ | Orders Only | [facility] | Timothy, | Hypertension, | | 2014 | | CARDIOLOGY [address] | [place] [address] | essential (Primary | | | | [place], | [place], | Dx); Congestive | | | | [place] [address] | [place] [address] | heart failure, | | | | [phone] | [phone] | unspecified | | | | | | congestive heart | | | | | | failure chronicity, | | | | | | unspecified | | | | | | congestive heart | | | | | | failure type (HCC) | +--------+ + + + + [...] [place] | | | | | | [place] | | | | | | [address] | | | | | | | | +--------+---------+ + + + documented as of this encounter Results ECG 12 lead (10/29/2015 2:03 PM PST) + + + + + + | Component | Value | Ref Range | Performed | Pathologist | | | | | At | Signature | + + + + + + | VENTRICULAR | 61 | BPM | [facility] | | | RATE EKG | | | | | + + + + + + | ATRIAL RATE | 312 | BPM | [facility] | | + + + + + + | QRS | 110 | ms | [facility] | | | DURATION | | | | | + + + + + + | Q-T | 428 | ms | [facility] | | | INTERVAL | | | | | + + + + + + | Q-T | 430 | ms | [facility] | | | INTERVAL | | | | | | (CORRECTED) | | | | | + + + + + + | QRS AXIS | 0 | degrees | [facility] | | + + + + + + | T AXIS | 47 | degrees | [facility] | | + + + + + + | INTERPRETAT | sinus rhythmnormal EKGNo | | [facility] | | | ION TEXT | previous ECGs | | | | | | availableConfirmed by | | | | | | AKSHAT HERRERA MD | | | | | | ([id number]) on 10/29/2015 | | | | | | 4:05:00 PM | | | | + + + + + + + + | Specimen | + + | | + + + + + | Narrative | Performed At | + + + | | | + + + + +---------+ + + | Performing | Address | City/State/Zipcode | Phone Number | | Organization | | | | + +---------+ + + | [facility] | | | | + +---------+ + + documented in this encounter Visit Diagnoses + + | Diagnosis | + + | Hypertension, essential - Primary Unspecified essential hypertension | + + | Congestive heart failure, unspecified congestive heart failure chronicity, unspecified | | congestive heart failure type | + + documented in this encounter"
--- OUTSIDE RECORDS SUMMARY | ~2020-04-03 | XMS | Encounter Summary ---
Demographics + + + | Address | [address] | | | [place] [address] | + + + | Home Phone | | + + + | Preferred Language | Unknown | + + + | Marital Status | Single | + + + | Mosque Affiliation | Unknown | + + + | Race | Unknown | + + + | Ethnic Group | Unknown | + + + Author + + + | Author | [facility] | | | and [place] | + + + | Organization | [facility] | | | and [place] | + + + | Address | Unknown | + + + | Phone | Unavailable | + + + Support + + + + + | Name | Relationship | Address | Phone | + + + + + | Hi Dawn | ECON | [place] | | | | | [address] | | + + + + + | Atif Delgadillo | ECON | [place] | | | | | [address] | | + + + + + | Caleb Dawn | ECON | Unknown | | + + + + + Care Team Providers + +------+ + | Care Delicatessen Clerk Name | Role | Phone | + +------+ + | Anoop Moyer MD | PCP | | + +------+ + Encounter Details +--------+ + + + + | Date | Type | Department | Care Team | Description | +--------+ + + + + | 08/21/ | Orders Only | [facility] [place] | Freddy Sanchez | Chronic kidney | | 2019 | | NEPHROLOGY [address] | M, DO [address] | disease, stage III | | | | [address] | [place], [place] [address] | (moderate) (HCC) | | | | [place] | [place] | (Primary Dx); Type 2 | | | | [address] | [address] | diabetes mellitus | | | | [phone] | | with stage 3 chronic | | | | | | kidney disease, | | | | | | unspecified whether | | | | | | usp insulin | | | | | | [...] this encounter Progress Imani Springer RN - 08/21/2019 1:27 PM PDTLabs for upcoming nephrology appointment sent to: [facility] documented in this encounter Plan of Treatment +--------+---------+ + + + | Date | Type | Specialty | Care Team | Description | +--------+---------+ + + + | 05/20/ | Office | Cardiology | Olgara Tripprhoda, | | | 2019 | Visit | | MD Lupe TYLER | | | | | | [facility] [facility] | | | | | | [address] | | | | | | | [...]
--- OUTSIDE RECORDS SUMMARY | ~2020-04-03 | XMS | Encounter Summary ---
Demographics + + + | Address | [address] | | | [place] [address] | + + + | Home Phone | | + + + | Preferred Language | Unknown | + + + | Marital Status | Single | + + + | Orthodoxy Affiliation | Unknown | + + + [...] [place] | | | | | [address] | | + + + + + | Atif Delgadillo | ECON | [place], [place] | | | | | [address] | | + + + + + | Caleb Dawn | ECON | Unknown | | + + + + + Care Team Providers + +------+ + | Care Executive Coach Name | Role | Phone | + [...] NEPHROLOGY [address] | M, DO [address] | | | | | [address] | [place], [address] | | | | | [place], [place] | [place] | | | | | [address] | [address] | | | | | [phone] | | | +--------+ + + + [...] | | | | | [place], [place] | | | | | | [address] | | | | | | | [...] | | | LAB | | | French, | | | | | | External [...]
--- OUTSIDE RECORDS SUMMARY | ~2020-04-03 | XMS | Encounter Summary ---
Demographics + + + | Address | [address] | | | [place] [address] | + + + | Home Phone | | + + + | Preferred Language | Unknown | + + + | Marital Status | Single | + + + | Jewish Affiliation | Unknown | + + + [...] [place] | | | | | [address] | | + + + + + | Atif Delgadillo | ECON | [place], [place] | | | | | [address] | | + + + + + | Caleb Dawn | ECON | Unknown | | + + + + + Care Team Providers + +------+ + | Care Carbon Capture Power Plant Manager Name | Role | Phone | [...] | kidney | MD [address] | [address] | | | | | disease, | [place] | [place], [place] | | | | | stage 3 | [place] [address] | [address] [place] | | | | | (moderate) | [place], | [place] | | | | | (HCC) | [place] | [address] Phone: | | | | | Hypertension | [address] | [phone] | | | | | , essential | Phone: | Fax: | | | | | Type 2 | [phone] | [phone] | | | | | diabetes | Fax: | | | | | | mellitus | [phone] | | | | | | with stage 3 | | | | | | | chronic | | | | | | | kidney | | | | | | | disease | | | | | | | (HCC) | | | | | | | Procedures | | | | | | | [place] OFFICE | | | | | | [...] | | [address] | [place], [place] [address] | 3 chronic kidney | | | | [place], [place] | [place] | disease, with | | | | [address] | [address] | long-term current | | | | [phone] | | use of insulin (HCC) | [...] Dr. Anoop Moyer, and Endo crinologist in [place], Dr. Winsome Crowder. He denies any new [...] (ELOCON) 0.1 % cream Apply topically Daily. [place]-3 Fatty Acids (FISH OIL) 1200 MG CAPS [...] PHOSEX 4.2 10/03/2017 PTHEX 186.6 (A) 10/03/2017 [id number] 5.1 10/03/2017 Lab Results Component Value Date [...] 4 mo. at the [facility] at [place], [place]. He will have CBC, CMP, PO4, HbA1c, iPTH, Urine Pro/Cr ratio one week prior to that. : Anoop Moyer MD, PhD Winsome Crowder MD, [place], [place] Matheus Gregory MD, [place] , [place] documented in th is encounter Plan of Treatment +--------+---------+ + + + | Date | Type | Specialty | Care Team | Description | +--------+---------+ + + + | 05/20/ | Office | Cardiology | [place], [place], | | | 2020 | Visit | | MD Lupe TYLER | | | | | | [place], [place] | | | | | | [address] | | | | | | | [...]
--- OUTSIDE RECORDS SUMMARY | ~2020-04-03 | XMS | Encounter Summary ---
Demographics + + + | Address | [address] | | | [place] [address] | + + + | Home Phone | | + + + | Preferred Language | Unknown | + + + | Marital Status | Single | + + + | Alevism Affiliation | Unknown | + + + | Race | Unknown | + + + | Ethnic Group | Unknown | + + + Author + + + | Author | [facility] | | | and [place] | + + + | Organization | [facility] | | | and [place] | + + + | Address | Unknown | + + + | Phone | Unavailable | + + + Support + + + + + | Name | Relationship | Address | Phone | + + + + + | Hi Dawn | ECON | [place] | | | | | [address] | | + + + + + | Atif Delgadillo | ECON | [place], [place] | | | | | [address] | | + + + + + | Caleb Dawn | ECON | Unknown | | + + + + + Care Team Providers + +------+ + | Care Manager Income Tax Name | Role | Phone | + [...] [address] | M, DO [address] | | | | | [address] | [place], [address] | | | | | [place], [place] | [place] | | | | | [address] | [address] | | | | | [phone] | | | +--------+ + + + [...] | | | | | [place], [place] | | | | | | [address] | | | | | | | [...] | CLEARANCE | | mL/min | [facility] | | | [facility] | | | | | | [facility] - | | | | | | LABORATORY | | + + + + + + | 24H Urine | 2,800 | mL | [facility] | | | Volume | | | [facility] | | | | | | [facility]ICAL [...] [address] | [place] | [phone] | | [facility] | | [address] | | | - LABORATORY | | [...] + +---------+ + + External Lab: CBC (04/16/2015) + +-------+ + + + | [...]
--- OUTSIDE RECORDS SUMMARY | ~2020-04-03 | XMS | Encounter Summary ---
Demographics + + + | Address | [address] | | | [place] [address] | + + + | Home Phone | | + + + | Preferred Language | Unknown | + + + | Marital Status | Single | + + + | Catholic Affiliation | Unknown | + + + | Race | Unknown | + + + | Ethnic Group | Unknown | + + + Author + + + | Author | [facility] | | | and [place] | + + + | Organization | [facility] | | | and [place] | + + + | Address | Unknown | + + + | Phone | Unavailable | + + + Support + + + + + | Name | Relationship | Address | Phone | + + + + + | Hi Dawn | ECON | [place] | | | | | [address] | | + + + + + | Atif Delgadillo | ECON | [place], [place] | | | | | [address] | | + + + + + | Caleb Dawn | ECON | Unknown | | + + + + + Care Team Providers + +------+ + | Care Brancher Name | Role | Phone | + +------+ + PCP | Unavailable | + +------+ + Encounter Details +--------+ + + + + | Date | Type | Department | Care Team | Description | +--------+ + + + + | 01/23/ | Abstract | [facility] | Timothy, | | | 2013 | | CARDIOLOGY [address] | [address] | | | | | [place], | [place], | | | | | [place] [address] | [place] [address] | | | | | [phone] | [phone] | | | | | | | [...] | | | | | [place], [place] | | | | | | [address] | | | | | | | | +--------+---------+ + + + documented as of this encounter Procedures + +--------+ + + + | Procedure Name | Priori | Date/Time | Associated Diagnosis | Comments | | | ty | | | | + +--------+ + + + | EXTERNAL LAB: EPIFANIO | Routin | 01/13/2014 | | Results for this | | | e | | | procedure are in the | | | | | | results section. | + +--------+ + + + | EXTERNAL LAB: ORION | Routin | 01/13/2014 | | Results for this | | | e | | | procedure are in the | | | | | | results section. | + +--------+ + + + | EXTERNAL LAB: ALT | Routin | 01/13/2014 | | Results for this | | | e | | | procedure are in the | | | | | | results section. | + +--------+ + + + | EXTERNAL LAB: | Routin | 01/13/2014 | | Results for this | | CREATININE | e | | | procedure are in the | | | | | | results section. | + +--------+ + + + | CBC NO DIFFERENTIAL | Routin | 01/13/2014 | | Results for this | | | e | | | procedure are in the | | | | | | results section. | + +--------+ + + + | COMPREHENSIVE | Routin | 01/13/2014 | | Results for this | | METABOLIC PANEL | e | | | procedure are in the | | | | | | results section. | + +--------+ + + + documented in this encounter Results CBC no Differential (01/13/2014) + + + + + + | Component | Value | Ref Range | Performed | Pathologist | | | | | At | Signature | + + + + + + | RBC | 3.97 (A) | 4.30 - 5.70 | [facility] | | | | | 10*6/uL | [facility] | | | | | | [facility] | | | | [facility] - | | | | | | LABORATORY | | + + + + + + | MCV | 89.1 | 80.0 - 100.0 fL | [facility] | | | | | | [facility] | | [facility] | [facility] | | | | | [facility] - | | | | | | LABORATORY | | + + + + + + | MCH | 30.0 | 26.0 - 33.0 pg | [facility] | | | | | | [facility] | | | | | | [facility] | | | | | | [facility] - | | | | | | LABORATORY | | + + + + + + | MCHC | 34.0 | 31.0 - 37.0 % | [facility] | | | | | | [facility] | | | | | | [facility] | | | | | | [facility] - | | | | | | LABORATORY | | + + + + + + | RDW-CV | 15.8 (A) | 10.5 - 15.0 % | [facility] | | | | | | [facility] | | | | | | [facility] | | | | | | [facility] - | | | | | | LABORATORY | | + + + + + + | % | 20.9 (A) | 24.0 - 44.0 % | [facility] | | | Lymphocytes | | | [facility] | | | | | | [facility] | | | | | | C[facility] - | | | | | | LABORATORY | | + + + + + + | % Segmented | 68.2 | 40.0 - 80.0 % | [facility] | | | | | | [facility] | | | Neutrophils | | | MEDICAL | | | | | | CENTER - | | | | | | LABORATORY | | + + + + + + | % Monocytes | 7.0 | 0.0 - 12.0 % | [facility] | | | | | | [facility] | | | | | | [facility] | | | | | | [facility] - | | | | | | LABORATORY | | + + + + + + | % | 3.4 | 0.0 - 7.0 % | [facility] | | | Eosinophils | | | [facility] | | | | | | [facility] | | | | | | CENTER - | | | | | | LABORATORY | | + + + + + + | % Basophils | 0.5 | 1.0 % | [facility] | | | | [...] ST. | [address] | [place] | | | [facility] | | [id number], [facility] | | | - LABORATORY | | | | + + + + + Comprehensive Metabolic Panel (01/13/2014) + +---------+ + + + | Component | Value | Ref Range | Performed | Pathologist | | | | | At | Signature | + +---------+ + + + | Calcium | 9.7 | mg/dL | [facility] | | | | | | [facility] | | | | | | [facility] | | | | | | [facility] - | | | | | | LABORATORY | | + +---------+ + + + | Bilirubin | 0.6 | mg/dL | [facility] | | | Total | | | [facility] | | | | | | [facility] | | | | | | [facility]ENTER - | | | | | | LABORATORY | | + +---------+ + + + | Total | 6.5 | 6.1 - 8.4 g/dL | [facility] | | | Protein | | | [facility] | | | | | | [facility] | | | | | | CENTER - | | | | | | LABORATORY | | + +---------+ + + + | Albumin | 4.5 | 3.3 - 4.8 g/dL | [facility] | | | | | | [facility] | | | | | | [facility] | | | | | | [facility] - | | | | | | LABORATORY | | + +---------+ + + + | BUN | 33 (A) | 6 - 23 mg/dL | [facility] | | | | | | [facility] | | | | | | [facility] | | | | | | [facility] - | | | | | | LABORATORY | | + +---------+ + + + | Glucose | 104 (A) | 70 - 100 mg/dL | [facility] | | | | | | [facility] | | | | | | [facility] | | | | | | C[facility] - | | | | | | LABORATORY | | + +---------+ + + + | Chloride | 104 | | [facility] | | | | | | [facility] | | | | | | [facility] | | | | | | CENTER - | | | | | | LABORATORY | | + +---------+ + + + | CO2 | 29 | mmol/L | [facility] | | | [...] +---------+ + + + | K | 4.1 | mmol/L | [facility] | | | | | | [facility] | | | | | | [facility] | | | | | | CENTER - | | | | | | LABORATORY | | + +---------+ + + + | Albumin/Alayna | 2.3 | | [facility] | | | bulin Ratio | | | [facility] | | | | | | [facility] | | | | | | CENTER - | | | | | | LABORATORY | | + +---------+ + + + | Bun/Creatin | 22.6 | | [facility] | | | ine | | | [facility] | | | | | | [facility] | | | | | | CENTER - | | | | | | LABORATORY | | + +---------+ + + + | Anion Gap | 12 | mmol/L | [facility] | | | | | | [facility] | | | | | | [facility] | | | | | | CENTER - | | | | | | LABORATORY | | + +---------+ + + + | Globulin | 2.0 | | [facility] | | | | [...] St | [place] | | | [facility] | | [address], [facility] | | | - LABORATORY | | | | + + + + + External Lab: CBC (01/13/2014) + + + + + + | Component | Value | Ref Range | Performed | Pathologist | | | | | At | Signature | + + + + + + | WBC, | 6.5 | 4.5 - 11 | EXTERNAL | | | External | | | LAB | | + + + + + + | HGB, | 12.1 (A) | 13.5 - 18 | EXTERNAL | | | External | | | LAB | | + + + + + + | HCT, | 35.3 (A) | 41 - 50 | EXTERNAL | | | External | | | LAB | | + + + + + + | PLT, | 160 | 140 - 440 | EXTERNAL | | | External | | | LAB | | + + + + + + + + | Resulting Agency Comment | + + | [facility] | + + + +---------+ + + | Performing | Address | City/State/Zipcode | Phone Number | | Organization | | | | + +---------+ + + | EXTERNAL LAB | | | | + +---------+ + + External Lab: AST (01/13/2014) + +-------+ + + + | Component [...] Resulting Agency Comment | + + | [facility] | + + + +---------+ + + | Performing | Address | City/State/Zipcode | Phone Number | | Organization | | | | + +---------+ + + | EXTERNAL LAB | | | | + +---------+ + + External Lab: ALT (01/13/2014) + +-------+ + + + | Component [...] Resulting Agency Comment | + + | [facility] | + + + +---------+ + + | Performing | Address | City/State/Zipcode | Phone Number | | Organization | | | | + +---------+ + + | EXTERNAL LAB | | | | + +---------+ + + External Lab: Creatinine (01/13/2014) + + + + + + | Component | Value | Ref Range | Performed | Pathologist | | | | | At | Signature | + + + + + + | Creatinine, | 1.46 (A) | 0.7 - 1.18 | EXTERNAL | | | External | | | LAB | | + + + + + + + + | Specimen | + + | Blood specimen | | (specimen) | + + + + | Resulting Agency Comment | + + | [facility] | + + + +---------+ + + | Performing | Address | City/State/Zipcode | Phone Number | | Organization | | | | + +---------+ + + | EXTERNAL LAB | | | | + +---------+ + + documented in this encounter Visit Diagnoses Not on filedocumented in this encounter"
--- OUTSIDE RECORDS SUMMARY | ~2020-04-03 | XMS | Encounter Summary ---
Demographics + + + | Address | [address] | | | [place] [address] | + + + | Home Phone [...] [place] | | | | | [address] | | + + + + + | Atif Delgadillo | ECON | [place], [place] | | | | | [address] | | + + + + + | Caleb Dawn | ECON | Unknown | | + + + + + Care Team Providers + +------+ + | Care Corncob Pipe Manufacturing Supervisor Name | Role | Phone | + +------+ + PCP | Unavailable | + +------+ + Encounter Details +--------+ + + + + | Date | Type | Department | Care Team | Description | +--------+ + + + + | 10/23/ | Abstract | [facility] | Freddy Sanchez | | | 2014 | | NEPHROLOGY [address] | M, DO [address] | | | | | [address] | [place] | | | | | [place], [place] | [place] | | | | | [address] | [address] | | | | | [phone] | | | +--------+ + + + [...] | | | | | [place], [place] | | | | | | [address] | | | | | | | | +--------+---------+ + + + documented as of this encounter Procedures + +--------+ + + + | Procedure Name | Priori | Date/Time | Associated Diagnosis | Comments | | | ty | | | | + +--------+ + + + | EXTERNAL LAB: FATOUMATA | Routin | 10/22/2015 | | Results for this | | | e | | | procedure are in the | | | | | | results section. | + +--------+ + + + | EXTERNAL LAB: | Routin | 10/22/2015 | | Results for this | | GLUCOSE | e | | | procedure are in the | | | | | | results section. | + +--------+ + + + | EXTERNAL LAB: ALT | Routin | 10/22/2015 | | Results for this | | | e | | | procedure are in the | | | | | | results section. | + +--------+ + + + | EXTERNAL LAB: AST | Routin | 10/22/2015 | | Results for this | | | e | | | procedure are in the | | | | | | results section. | + +--------+ + + + | EXTERNAL LAB: | Routin | 10/22/2015 | | Results for this | | ALKALINE PHOSPHATASE | e | | | procedure are in the | | | | | | results section. | + +--------+ + + + | EXTERNAL LAB: | Routin | 10/22/2015 | | Results for this | | BILIRUBIN, TOTAL | e | | | procedure are in the | | | | | | results section. | + +--------+ + + + | EXTERNAL LAB: | Routin | 10/22/2015 | | Results for this | | ALBUMIN | e | | | procedure are in the | | | | | | results section. | + +--------+ + + + | EXTERNAL LAB: | Routin | 10/22/2015 | | Results for this | | PROTEIN, TOTAL | e | | | procedure are in the | | | | | | results section. | + +--------+ + + + | EXTERNAL LAB: | Routin | 10/22/2015 | | Results for this | | PHOSPHORUS | e | | | procedure are in the | | | | | | results section. | + +--------+ + + + | EXTERNAL LAB: | Routin | 10/22/2015 | | Results for this | | CALCIUM | e | | | procedure are in the | | | | | | results section. | + +--------+ + + + | EXTERNAL LAB: CARBON | Routin | 10/22/2015 | | Results for this | | DIOXIDE | e | | | procedure are in the | | | | | | results section. | + +--------+ + + + | EXTERNAL LAB: | Routin | 10/22/2015 | | Results for this | | CHLORIDE | e | | | procedure are in the | | | | | | results section. | + +--------+ + + + | EXTERNAL LAB: | Routin | 10/22/2015 | | Results for this | | POTASSIUM | e | | | procedure are in the | | | | | | results section. | + +--------+ + + + | EXTERNAL LAB: SODIUM | Routin | 10/22/2015 | | Results for this | | | e | | | procedure are in the | | | | | | results section. | + +--------+ + + + | EXTERNAL LAB: PTH, | Routin | 10/22/2015 | | Results for this | | INTACT | e | | | procedure are in the | | | | | | results section. | + +--------+ + + + | EXTERNAL LAB: | Routin | 10/22/2015 | | Results for this | | PROTEIN, URINE, 24HR | e | | | procedure are in the | | | | | | results section. | + +--------+ + + + | EXTERNAL LAB: CBC | Routin | 10/22/2015 | | Results for this | | | e | | | procedure are in the | | | | | | results section. | + +--------+ + + + | EXTERNAL LAB: | Routin | 10/22/2015 | | Results for this | | TRIGLYCERIDES | e | | | procedure are in the | | | | | | results section. | + +--------+ + + + | EXTERNAL LAB: | Routin | 10/22/2015 | | Results for this | | CHOLESTEROL, HDL | e | | | procedure are in the | | | | | | results section. | + +--------+ + + + | EXTERNAL LAB: | Routin | 10/22/2015 | | Results for this | | CHOLESTEROL, TOTAL | e | | | procedure are in the | | | | | | results section. | + +--------+ + + + | EXTERNAL LAB: | Routin | 10/22/2015 | | Results for this | | CHOLESTEROL, LDL | e | | | procedure are in the | | DIRECT | | | | results section. | + +--------+ + + + | EXTERNAL LAB: EGFR | Routin | 10/22/2015 | | Results for this | | | e | | | procedure are in the | | | | | | results section. | + +--------+ + + + | EXTERNAL LAB: | Routin | 10/22/2015 | | Results for this | | CREATININE | e | | | procedure are in the | | | | | | results section. | + +--------+ + + + | CREATININE | Routin | 10/22/2015 | | Results for this | | CLEARANCE, 12HR, | e | | | procedure are in the | | RESULTE | | | | results section. | + +--------+ + + + | HEMOGLOBIN A1C | Routin | 10/22/2015 | | Results for this | | | e | | | procedure are in the | | | | | | results section. | + +--------+ + + + documented in this encounter Results Hemoglobin A1C (10/22/2015) + +-------+ + + + | Component | Value | Ref Range | Performed | Pathologist | | | | | At | Signature | + +-------+ + + + | Hemoglobin | 7.0 | | EXTERNAL | | | A1c, [...] + + External Lab: Protein, Urine, 24Hr (10/22/2015) + +-------+ + + + | Component | Value | Ref Range | Performed | Pathologist | | | | | At | Signature | + +-------+ + + + | Protein, | 110 | | EXTERNAL | | | Urine [...] +---------+ + + External Lab: PTH, Intact (10/22/2015) + +---------+ + + + | Component | Value | Ref Range | Performed | Pathologist | | | | | At | Signature | + +---------+ + + + | PTH Intact, | 129 (A) | 15 - 65 | | | | External | | | | | + +---------+ + + + + + | Specimen | + + | | + + Creatinine Clearance, 12hr, Result (10/22/2015) + + + + + + | Component | Value | Ref Range | Performed | Pathologist | | | | | At | Signature | + + + + + + | CREATININE | 47.0 (A) | 85.0 - 125.0 | | | | CLEARANCE | | mL/min | | | + + + + + + | 24H Urine | 2,200 | mL | | | | Volume | | | | | + + + + + + + + | Specimen | + + | | + + External Lab: FATOUMATA (10/22/2015) + +--------+ + + + | Component | Value | Ref Range | Performed | Pathologist | | | | | At | Signature | + +--------+ + + + | BUN, | 54 (A) | 6 - 23 | EXTERNAL [...] + +---------+ + + External Lab: Glucose (10/22/2015) + +---------+ + + + | Component | Value | Ref Range | Performed | Pathologist | | | | | At | Signature | + +---------+ + + + | Glucose, | 160 (A) | 70 - 100 | EXTERNAL [...] + +---------+ + + External Lab: ALT (10/22/2015) + +-------+ + + + | Component | Value | Ref Range | Performed | Pathologist | | | | | At | Signature | + +-------+ + + + | ALT, | 19 | 7 - 52 | EXTERNAL | [...] + +---------+ + + External Lab: ORION (10/22/2015) + +--------+ + + + | Component | Value | Ref Range | Performed | Pathologist | | | | | At | Signature | + +--------+ + + + | AST, | 12 (A) | 13 - 39 | EXTERNAL | [...] +---------+ + + External Lab: Alkaline Phosphatase (10/22/2015) + +-------+ + + + | Component | Value | Ref Range | Performed | Pathologist | | | | | At | Signature | + +-------+ + + + | ALP, | 68 | 30 - 128 | EXTERNAL | [...] +---------+ + + External Lab: Bilirubin, Total (10/22/2015) + +-------+ + + + | Component [...] + +---------+ + + External Lab: Albumin (10/22/2015) + +-------+ + + + | Component [...] +---------+ + + External Lab: Protein, Total (10/22/2015) + +-------+ + + + | Component | Value | Ref Range | Performed | Pathologist | | | | | At | Signature | + +-------+ + + + | Protein, | 6.3 | | EXTERNAL | | | Total, [...] + +---------+ + + External Lab: Phosphorus (10/22/2015) + +-------+ + + + | Component | Value | Ref Range | Performed | Pathologist | | | | | At | Signature | + +-------+ + + + | Phosphorus, | 4.0 | 2.5 - 5 | EXTERNAL | [...] + +---------+ + + External Lab: Calcium (10/22/2015) + +-------+ + + + | Component | Value | Ref Range | Performed | Pathologist | | | | | At | Signature | + +-------+ + + + | Calcium, | 9.6 | 8.4 - 10.2 | EXTERNAL | [...] +---------+ + + External Lab: Carbon Dioxide (10/22/2015) + +-------+ + + + | Component | Value | Ref Range | Performed | Pathologist | | | | | At | Signature | + +-------+ + + + | Carbon | 27 | 19 - 31 | EXTERNAL | [...] + +---------+ + + External Lab: Chloride (10/22/2015) + +-------+ + + + | Component [...] + +---------+ + + External Lab: Potassium (10/22/2015) + +-------+ + + + | Component | Value | Ref Range | Performed | Pathologist | | | | | At | Signature | + +-------+ + + + | Potassium, | 4.0 | 3.6 - 5.1 | EXTERNAL | [...] + +---------+ + + External Lab: Sodium (10/22/2015) + +-------+ + + + | Component | Value | Ref Range | Performed | Pathologist | | | | | At | Signature | + +-------+ + + + | Sodium, | 141 | 132 - 143 | EXTERNAL | [...] + +---------+ + + External Lab: CBC (10/22/2015) + + + + + + | Component | Value | Ref Range | Performed | Pathologist | | | | | At | Signature | + + + + + + | WBC, | 6.3 | 4.5 - 11 | EXTERNAL | | | External | | | LAB | | + + + + + + | HGB, | 13.3 (A) | 13.5 - 18 | EXTERNAL | | | External | | | LAB | | + + + + + + | HCT, | 39.6 (A) | 41 - 50 | EXTERNAL | | | External | | | LAB | | + + + + + + | PLT, | 131 (A) | 140 - 440 | EXTERNAL | | | External | | | LAB | | + + + + + + | Neutrophils | 20.2 (A) | 24 - 44 | EXTERNAL | | | %, | | | LAB | | | External | | | | | + + + + + + | Monocytes | 9.0 | 0 - 12 | EXTERNAL | | | %, External | | | LAB | | + + + + + + | Eosinophils | 3.0 | 0 - 6 | EXTERNAL | | | %, | | | LAB | | | External | | | | | + + + + + + | RBC, | 4.39 | 4.3 - 5.7 | EXTERNAL | | | External | | | LAB | | + + + + + + | MCV, | 90 | 81 - 99 | EXTERNAL | | | External | | | LAB | | + + + + + + | RDW, | 14.6 | 10.5 - 15 | EXTERNAL | [...] + +---------+ + + External Lab: Triglycerides (10/22/2015) + +---------+ + + + | Component | Value | Ref Range | Performed | Pathologist | | | | | At | Signature | + +---------+ + + + | Triglycerid | 230 (A) | 30 - 150 | EXTERNAL [...] +---------+ + + External Lab: Cholesterol, HDL (10/22/2015) + +-------+ + + + | Component | Value | Ref Range | Performed | Pathologist | | | | | At | Signature | + +-------+ + + + | HDL | 23.6 | mg/dl | EXTERNAL | | | [...] +---------+ + + External Lab: Cholesterol, Total (10/22/2015) + +-------+ + + + | Component | Value | Ref Range | Performed | Pathologist | | | | | At | Signature | + +-------+ + + + | Cholesterol | 119 | mg/dl | EXTERNAL | | | [...] +---------+ + + External Lab: Cholesterol, LDL Direct (10/22/2015) + +-------+ + + + | Component | Value | Ref Range | Performed | Pathologist | | | | | At | Signature | + +-------+ + + + | LDL | 49 | | EXTERNAL | | | Cholesterol [...] + +---------+ + + External Lab: eGFR (10/22/2015) + +-------+ + + + | Component [...] + +---------+ + + External Lab: Creatinine (10/22/2015) + + + + + + | Component | Value | Ref Range | Performed | Pathologist | | | | | At | Signature | + + + + + + | Creatinine, | 2.36 (A) | 0.5 - 1.5 | EXTERNAL [...]
--- OUTSIDE RECORDS SUMMARY | ~2020-04-03 | XMS | Encounter Summary ---
Demographics + + + | Address | [address] | | | [place] [address] | + + + | Home Phone | | + + + | Preferred Language | Unknown | + + + | Marital Status | Single | + + + | Amish Affiliation | Unknown | + + + [...] [place] | | | | | [address] | | + + + + + | Atif Delgadillo | ECON | [place] | | | | | [address] | | + + + + + | Caleb Dawn | ECON | Unknown | | + + + + + Care Team Providers + +------+ + | Care Transportation Maintenance Specialist Name | Role | Phone | + +------+ + | Anoop Moyer MD | PCP | | + +------+ + Encounter Details +--------+ + + + + | Date | Type | Department | Care Team | Description | +--------+ + + + + | 09/19/ | Abstract | [facility] | Freddy Sanchez | | | 2019 | | NEPHROLOGY [address] | M, DO [address] | | | | | [address] | [place] | | | | | [place], [place] | [place], [place] | | | | | [address] | [address] | | | | | [phone] | | | +--------+ + + + [...] [place] | | | | | | [address] | | | | | | | | +--------+---------+ + + + documented as of this encounter Procedures + +--------+ + + + | Procedure Name | Priori | Date/Time | Associated Diagnosis | Comments | | | ty | | | | + +--------+ + + + | EXTERNAL LAB: BUN | Routin | 09/18/2019 | | Results for this | | | e | | | procedure are in the | | | | | | results section. | + +--------+ + + + | EXTERNAL LAB: | Routin | 09/18/2019 | | Results for this | | GLUCOSE | e | | | procedure are in the | | | | | | results section. | + +--------+ + + + | EXTERNAL LAB: ALT | Routin | 09/18/2019 | | Results for this | | | e | | | procedure are in the | | | | | | results section. | + +--------+ + + + | EXTERNAL LAB: AST | Routin | 09/18/2019 | | Results for this | | | e | | | procedure are in the | | | | | | results section. | + +--------+ + + + | EXTERNAL LAB: | Routin | 09/18/2019 | | Results for this | | ALKALINE PHOSPHATASE | e | | | procedure are in the | | | | | | results section. | + +--------+ + + + | EXTERNAL LAB: | Routin | 09/18/2019 | | Results for this | | BILIRUBIN, TOTAL | e | | | procedure are in the | | | | | | results section. | + +--------+ + + + | EXTERNAL LAB: | Routin | 09/18/2019 | | Results for this | | ALBUMIN | e | | | procedure are in the | | | | | | results section. | + +--------+ + + + | EXTERNAL LAB: | Routin | 09/18/2019 | | Results for this | | PROTEIN, TOTAL | e | | | procedure are in the | | | | | | results section. | + +--------+ + + + | EXTERNAL LAB: | Routin | 09/18/2019 | | Results for this | | PHOSPHORUS | e | | | procedure are in the | | | | | | results section. | + +--------+ + + + | EXTERNAL LAB: | Routin | 09/18/2019 | | Results for this | | CALCIUM | e | | | procedure are in the | | | | | | results section. | + +--------+ + + + | EXTERNAL LAB: CARBON | Routin | 09/18/2019 | | Results for this | | DIOXIDE | e | | | procedure are in the | | | | | | results section. | + +--------+ + + + | EXTERNAL LAB: | Routin | 09/18/2019 | | Results for this | | CHLORIDE | e | | | procedure are in the | | | | | | results section. | + +--------+ + + + | EXTERNAL LAB: | Routin | 09/18/2019 | | Results for this | | POTASSIUM | e | | | procedure are in the | | | | | | results section. | + +--------+ + + + | EXTERNAL LAB: SODIUM | Routin | 09/18/2019 | | Results for this | | | e | | | procedure are in the | | | | | | results section. | + +--------+ + + + | EXTERNAL LAB: ENRICO, | Routin | 09/18/2019 | | Results for this | | INTACT | e | | | procedure are in the | | | | | | results section. | + +--------+ + + + | EXTERNAL LAB: | Routin | 09/18/2019 | | Results for this | | PROTEIN/CREATININE | e | | | procedure are in the | | RATIO | | | | results section. | + +--------+ + + + | EXTERNAL LAB: CBC | Routin | 09/18/2019 | | Results for this | | | e | | | procedure are in the | | | | | | results section. | + +--------+ + + + | EXTERNAL LAB: EGFR | Routin | 09/18/2019 | | Results for this | | | e | | | procedure are in the | | | | | | results section. | + +--------+ + + + | EXTERNAL LAB: | Routin | 09/18/2019 | | Results for this | | CREATININE | e | | | procedure are in the | | | | | | results section. | + +--------+ + + + documented in this encounter Results External Lab: Protein/Creatinine Ratio (09/18/2019) + + + + + + | Component | Value | Ref Range | Performed | Pathologist | | | | | At | Signature | + + + + + + | Protein/Cre | 0.252 (A) | 0.2 | | | | atinine | | | | | | Ratio, | | | | | | External | | | | | + + + + + + + + | Specimen | + + | | + + External Lab: PTH, Intact (09/18/2019) + + + + + + | Component | Value | Ref Range | Performed | Pathologist | | | | | At | Signature | + + + + + + | PTH Intact, | 156.2 (A) | 15 - 65 | | | | External | | | | | + + + + + + + + | Specimen | + + | | + + External Lab: BUN (09/18/2019) + +-------+ + + + | Component | Value | Ref Range | Performed | Pathologist | | | | | At | Signature | + +-------+ + + + | BUN, | 28 | | | | | External | | | | | + +-------+ + + + External Lab: Glucose (09/18/2019) + +-------+ + + + | Component | Value | Ref Range | Performed | Pathologist | | | | | At | Signature | + +-------+ + + + | Glucose, | 88 | | | | | External | | | | | + +-------+ + + + External Lab: ALT (09/18/2019) + +-------+ + + + | Component | Value | Ref Range | Performed | Pathologist | | | | | At | Signature | + +-------+ + + + | ALT, | 18 | | | | | External | | | | | + +-------+ + + + External Lab: AST (09/18/2019) + +-------+ + + + | Component | Value | Ref Range | Performed | Pathologist | | | | | At | Signature | + +-------+ + + + | AST, | 13 | | | | | External | | | | | + +-------+ + + + External Lab: Alkaline Phosphatase (09/18/2019) + +-------+ + + + | Component | Value | Ref Range | Performed | Pathologist | | | | | At | Signature | + +-------+ + + + | ALP, | 63 | | | | | External | | | | | + +-------+ + + + External Lab: Bilirubin, Total (09/18/2019) + +-------+ + + + | Component | Value | Ref Range | Performed | Pathologist | | | | | At | Signature | + +-------+ + + + | Bilirubin, | 0.8 | | | | | Total, | | | | | | External | | | | | + +-------+ + + + External Lab: Albumin (09/18/2019) + +-------+ + + + | Component | Value | Ref Range | Performed | Pathologist | | | | | At | Signature | + +-------+ + + + | Albumin, | 4.7 | | | | | External | | | | | + +-------+ + + + External Lab: Protein, Total (09/18/2019) + +-------+ + + + | Component | Value | Ref Range | Performed | Pathologist | | | | | At | Signature | + +-------+ + + + | Protein, | 6.8 | | | | | Total, | | | | | | External | | | | | + +-------+ + + + External Lab: Phosphorus (09/18/2019) + +-------+ + + + | Component | Value | Ref Range | Performed | Pathologist | | | | | At | Signature | + +-------+ + + + | Phosphorus, | 3.2 | | | | | External | | | | | + +-------+ + + + External Lab: Calcium (09/18/2019) + +-------+ + + + | Component | Value | Ref Range | Performed | Pathologist | | | | | At | Signature | + +-------+ + + + | Calcium, | 10.2 | | | | | External | | | | | + +-------+ + + + External Lab: Carbon Dioxide (09/18/2019) + +-------+ + + + | Component | Value | Ref Range | Performed | Pathologist | | | | | At | Signature | + +-------+ + + + | Carbon | 30 | | | | | Dioxide, | | | | | | External | | | | | + +-------+ + + + External Lab: Chloride (09/18/2019) + +-------+ + + + | Component | Value | Ref Range | Performed | Pathologist | | | | | At | Signature | + +-------+ + + + | Chloride, | 101 | | | | | External | | | | | + +-------+ + + + External Lab: Potassium (09/18/2019) + +-------+ + + + | Component | Value | Ref Range | Performed | Pathologist | | | | | At | Signature | + +-------+ + + + | Potassium, | 4.1 | | | | | External | | | | | + +-------+ + + + External Lab: Sodium (09/18/2019) + +-------+ + + + | Component | Value | Ref Range | Performed | Pathologist | | | | | At | Signature | + +-------+ + + + | Sodium, | 142 | | | | | External | | | | | + +-------+ + + + External Lab: CBC (09/18/2019) + +-------+ + + + | Component | Value | Ref Range | Performed | Pathologist | | | | | At | Signature | + +-------+ + + + | WBC, | 6.5 | | | | | External | | | | | + +-------+ + + + | HGB, | 14.2 | | | | | External | | | | | + +-------+ + + + | HCT, | 41.2 | | | | | External | | | | | + +-------+ + + + | PLT, | 157 | | | | | External | | | | | + +-------+ + + + | RBC, | 4.45 | | | | | External | | | | | + +-------+ + + + | MCV, | 93 | | | | | External | | | | | + +-------+ + + + | RDW, | 14.2 | | | | | External | | | | | + +-------+ + + + External Lab: eGFR (09/18/2019) + +-------+ + + + | Component | Value | Ref Range | Performed | Pathologist | | | | | At | Signature | + +-------+ + + + | eGFR, | 37 | | | | | External | | | | | + +-------+ + + + + + | Specimen | + + | Blood | + + External Lab: Creatinine (09/18/2019) + +-------+ + + + | Component | Value | Ref Range | Performed | Pathologist | | | | | At | Signature | + +-------+ + + + | Creatinine, | 1.81 | | | | | External | | | | | + +-------+ + + + + + | Specimen | + + | Blood | + + documented in this encounter Visit Diagnoses Not on filedocumented in this encounter"
--- OUTSIDE RECORDS SUMMARY | ~2020-04-03 | XMS | Encounter Summary ---
Demographics + + + | Address | [address] | | | [place] [address] | + + + | Home Phone | | + + + | Preferred Language | Unknown | + + + | Marital Status | Single | + + + | Adventism Affiliation | Unknown | + + + | Race | Unknown | + + + | Ethnic Group | Unknown | + + + Author + + + | Author | [facility] | | | and [place] | + + + | Organization | [facility] | | | and [place] | + + + | Address | Unknown | + + + | Phone | Unavailable | + + + Support + + + + + | Name | Relationship | Address | Phone | + + + + + | Hi Dawn | ECON | [place] | | | | | [address] | | + + + + + | Atif Delgadillo | ECON | [place], [place] | | | | | [address] | | + + + + + | Caleb Dawn | ECON | Unknown | | + + + + + Care Team Providers + +------+ + | Care Membership Administrator Name | Role | Phone | + [...] | Dx); Hypertension; | | | | [place], | [place], | Hyperlipidemia; | | | | [place] [address] | [place] [address] | Chronic kidney | | | | [phone] | [phone] | disease, stage III | | | [...] fraction A. Patient was recently admitted to [place] with a profound anemia with hemoglobin [...] this chart may have been created with [email or web address] voice recognition software. Occasi onal wrong-word or [...] | | | | | [place] | | | | | | [address] | | | | | | | [...]
--- OUTSIDE RECORDS SUMMARY | ~2020-04-03 | XMS | Encounter Summary ---
Demographics + + + | Address | [address] | | | [place] [address] | + + + | Home Phone | | + + + | Preferred Language | Unknown | + + + | Marital Status | Single | + + + | Bahai Affiliation | Unknown | + + + | Race | Unknown | + + + | Ethnic Group | Unknown | + + + Author + + + | Author | [facility] | | | and [place] | + + + | Organization | [facility] | | | and [place] | + + + | Address | Unknown | + + + | Phone | Unavailable | + + + Support + + + + + | Name | Relationship | Address | Phone | + + + + + | Hi Dawn | ECON | [place] | | | | | [address] | | + + + + + | Atif Delgadillo | ECON | [place] | | | | | [address] | | + + + + + | Caleb Dawn | ECON | Unknown | | + + + + + Care Team Providers + +------+ + | Care Director Of Medical Services Name | Role | Phone | + +------+ + | Anoop Moyer MD | PCP | | + +------+ + Encounter Details +--------+ + + + + | Date | Type | Department | Care Team | Description | +--------+ + + + + | 06/04/ | Orders Only | [facility] [place] | Freddy Sanchez | Chronic kidney | | 2018 | | NEPHROLOGY [address] | M, DO [address] | disease, stage III | | | | [address] | [place], [address] | (moderate) (Primary | | | | [place], [place] | [place] | Dx); Type 2 diabetes | | | | [address] | [address] | mellitus with stage | | | | [phone] | | 3 chronic kidney | | [...] encounter Progress Notes Imani Whitney RN - 06/04/2018 11:42 AM PDTLabs for upcoming nephrology appointment sent to: [facility] documented in t his encounter Plan of Treatment +--------+---------+ + + + | Date | Type | Specialty | Care Team | Description | +--------+---------+ + + + | 05/20/ | Office | Cardiology | Yumiko Del Valle, | | | 2019 | Visit | | MD Lupe TYLER | | | | | | [place] | | | | | | [address] | | | | | | | [...]
--- OUTSIDE RECORDS SUMMARY | ~2020-04-03 | XMS | Encounter Summary ---
Demographics + + + | Address | [address] | | | [place] [address] | + + + | Home Phone | | + + + | Preferred Language | Unknown | + + + | Marital Status | Single | + + + | Nondenominational Affiliation | Unknown | + + + | Race | Unknown | + + + | Ethnic Group | Unknown | + + + Author + + + | Author | [facility] | | | and [place] | + + + | Organization | [facility] | | | and [place] | + + + | Address | Unknown | + + + | Phone | Unavailable | + + + Support + + + + + | Name | Relationship | Address | Phone | + + + + + | Hi Dawn | ECON | [place] | | | | | [address] | | + + + + + | Atif Delgadillo | ECON | [place], [place] | | | | | [address] | | + + + + + | Caleb Dawn | ECON | Unknown | | + + + + + Care Team Providers + +------+ + | Care Dairy Tester Name | Role | Phone | + +------+ + PCP | Unavailable | + +------+ + Encounter Details +--------+ + + + + | Date | Type | Department | Care Team | Description | +--------+ + + + + | 05/04/ | Abstract | [facility] | Freddy Sanchez | | | 2017 | | NEPHROLOGY [address] | M, DO [address] | | | | | [address] | [place] | | | | | [place], [place] | [place] | | | | | [address] | [address] | | | | | [phone] | | | +--------+ + + + [...] PDTOutside records: Standing labs orders from [facility] [place]. Dos: 05/03/17. Sent to scan. documented in this encounter Plan of Treatment +--------+---------+ + + + | Date | Type | Specialty | Care Team | Description | +--------+---------+ + + + | 07/01/ | Office | Cardiology | Yumiko Del Valle, | | | 2019 | Visit | | MD Lupe TYLER | | | | | | [place] | | | | | | [address] | | | | | | | | +--------+---------+ + + + documented as of this encounter Visit Diagnoses Not on filedocumented in this encounter"
--- OUTSIDE RECORDS SUMMARY | ~2020-04-03 | XMS | Encounter Summary ---
Demographics + + + | Address | [address] | | | [place] [address] | + + + | Home Phone [...] [place] | | | | | [address] | | + + + + + | Atif Delgadillo | ECON | [place], [place] | | | | | [address] | | + + + + + | Caleb Dawn | ECON | Unknown | | + + + + + Care Team Providers + +------+ + | Care Clerical Warehouseman Name | Role | Phone | + [...] | unspecified | MD [address] | | | | | type | [place] | [place] | | | | | diabetes | [address] | [address] [place] | | | | | mellitus | [place], | [place], [place] | | | | | with renal | [place] | [address] Phone: | | | | | manifestatio | [address] | [phone] | | | | | ns, not | Phone: | Fax: | | | | | stated as | [phone] | [phone] | | | | | uncontrolled | Fax: | | | | | | [phone] | [phone] | | | | | | (HCC) [...] | +--------+ + + + + | 12/01/ | Off-Site | [facility] [place] | Freddy Sanchez | Type II or | | 2014 | Visit | NEPHROLOGY [address] | M, DO [address] | unspecified type | | | | [address] | [place], [address] | diabetes mellitus | | | | [place] | [place] | with renal | | | | [address] | [address] | manifestations, not | | | | [phone] | | stated as | | | | | | uncontrolled | | | | | | (Primary Dx); | | | | | | Unspecified | | | | | | hypertensive kidney | | | | | | disease with chronic | | | | | | kidney disease | | | | | | stage I through | | | | | | stage IV, or | | | | | | unspecified; Chronic | | | | | | kidney disease, | | | | | | stage III | | | | | | (moderate); | | | | | | Hyperlipidemia | +--------+ + + + + Social [...] + + + | Blood Pressure | 168/88 | 12/01/2014 2:09 PM | | | | | PST | | + + + + + | Pulse | - | - | | + + + + + | Temperature | 36.4 C (97.5 F) | 12/01/2014 2:09 PM | | | | | PST [...] + + + + | Weight | 122.9 kg (270 lb | 12/01/2014 2:09 PM | | | | 15.1 oz) | PST | | + + + + + | Height | - | - | | + + + + + | Body Mass Index | 33.87 | 11/06/2014 9:51 AM | | | | | PST | | + + + + + documented in this encounter Progress Notes Freddy Sanchez DO - 12/02/2014 6:13 PM PST NEPHROLOGY Addendum: After reviewing recent Lipid guidelines in [facility], it suggests starting at 40 mg of a statin for 2' prevention. Santiago states that Dr. Garza has started him on Rosuvast atin 5 mg, QD. I discussed with him about increasing the dose to 40 mg, daily given his prior ASCVD and pr ior left CEA, 2005. I told him I would forward this to Dr. Garza's office. CC: Hema Garza MD, [place] tFreddy carbone DO - 12/01/2014 2:51 PM PST Subjective: NEPHROLOGY Patient ID: Steve Tanner is a 69 y.o. male. HPI Comments: Follow-up for this 69 YO white male with CKD secondary to Type 2 DM, who als o had a DU, found on EGD, 12/18/13, hypertension, hyperlipidemia, DJD of knees, SHPTH, ASCVD , s/p left CEA, 2005, anemia secondary to CKD, and Type 2 DM. He states that he has been attending a [employer] class, walking daily, and watching his di et better. His home BP log show that he does have very good control, consistently < 130/80 mmHg. Outpatient Prescriptions Marked as Taking for the 12/01/14 encounter (Off-Site Visit) with Olayinka Sanchez, DO Medication Sig Dispense Refill [DISCONTINUED] acetaminophen (TYLENOL) 500 mg tablet Take 500 mg by mouth as needed. allopurinol (ZYLOPRIM) 300 mg tablet Take 300 mg by mouth Daily. calcitRIOL (ROCALTROL) 0.5 MCG capsule Take 2 capsules by mouth Every other day. 90 ca psule 4 [DISCONTINUED] calcitRIOL (ROCALTROL) 0.5 MCG capsule TAKE ONE CAPSULE BY MOUTH EVERY D AY FOR SHPTH 30 capsule 6 carvedilol (COREG) 25 mg tablet [...] tablet by mouth Daily. 90 tablet 4 [DISCONTINUED] losartan (COZAAR) 25 mg tablet Take 1 tablet by mouth Daily. 30 tablet 1 mometasone (ELOCON) 0.1 % cream Apply topically Daily. niacin 500 mg tablet Take 1,250 mg by mouth 2 times daily. omeprazole (PRILOSEC) 40 MG capsule Take 1 capsule by mouth Daily. 90 capsule 3 terbinafine (LAMISIL) 250 MG tablet Take 250 mg by mouth Daily. Allergies Allergen Reactions Lisinopril Other (See Comments) Cough Penicillins Rash Objective: BP 168/88 | Temp 36.4 C (97.5 F) | Wt 122.9 kg (270 lb 15.1 oz) Physical Exam Heart: Regular rate and rhythm with no S3, S4, murmur or rub. Lungs: CTA bilaterally. No rales or wheezes. Abdomen: Soft, flat, no epigastric tenderness, normoactive bowel sounds. Extremities: 1+ edema, (+) knee high hose on, unable to assess skin. Lab Results Component Value Date NAEX 140 11/27/2014 KEX 4.3 11/27/2014 CLEX 100 11/27/2014 CO2EX 28 11/27/2014 BUNEX 54 11/27/2014 CREEX 2.27 11/27/2014 EGFREX 27 11/27/2014 GLUEX 142 11/27/2014 PHOSEX 3.3 11/27/2014 PTHEX 147 11/27/2014 KXM0LRZ 6.3* 07/25/2014 Lab Results Component Value Date WBCEX 6.8 11/27/2014 HGBEX 13.9 11/27/2014 HCTEX 39.8 11/27/2014 PLTEX 159 11/27/2014 Lab Results Component Value Date CRCLEARANCE 49.0* 11/27/2014 PROTEX <150 11/27/2014 Assessment: 1. CKD Stage 3, secondary to diabetic glomerulosclerosis and HTN--Scr is slightly worse. His edema is better on current dose of lasix. 2. 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 3. SHPTH--PTH is above target. 4. Type 2 DM--good control. 5. ASCVD/ s/p left CEA, 2005--stable. 6. Hyperlipidemia--given his risk factors, he could benefit from a statin. 7. Hypertension--good control by his home BP log. 8. Gout--in remission. Plan: 1. Will change his Calcitriol to 1.0 mcg, Q other day to try to target his PTH < 110, wh ile attempting to avoid hypercalcemia. 2. Given his CV risk factors, will begin Simvastatin 10 mg, daily. 3. 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 4. Will plan to see him back in 4 mo. at the [facility], [place], [place]. He will have a CBC, CMP, P04, PTH, HbA1c, lipid profile and 24-hour urine collection one week prior to apollo t. CC: Hema Ahn DPM documented in thi s encounter Plan of Treatment +--------+---------+ + + + | Date | Type | Specialty | Care Team | Description | +--------+---------+ + + + | 05/20/ | Office | Cardiology | Yumiko Del Valle, | | | 2019 | Visit | | MD Lupe TYLER | | | | | | [place], [place] | | | | | | [address] | | | | | | | | +--------+---------+ + + + documented as of this encounter Visit Diagnoses + + | Diagnosis | + + | Type II or unspecified type diabetes mellitus with renal manifestations, not stated as | | uncontrolled - Primary | + + | Unspecified hypertensive kidney disease with chronic kidney disease stage I through | | stage IV, or unspecified(403.90) Unspecified hypertensive kidney disease with chronic | | kidney disease stage I through stage IV, or unspecified | + + | Chronic kidney disease, stage III (moderate) Chronic kidney disease, Stage III | | (moderate) | + + | Hyperlipidemia Other and unspecified hyperlipidemia | + + documented in this encounter"
--- OUTSIDE RECORDS SUMMARY | ~2020-04-03 | XMS | Encounter Summary ---
Demographics + + + | Address | [address] | | | [place] [address] | + + + | Home Phone [...] [place] | | | | | [address] | | + + + + + | Atif Delgadillo | ECON | [place], [place] | | | | | [address] | | + + + + + | Caleb Dawn | ECON | Unknown | | + + + + + Care Team Providers + +------+ + | Care Cancer Program Director Name | Role | Phone | + +------+ + PCP | Unavailable | + +------+ + Encounter Details +--------+ + + + + | Date | Type | Department | Care Team | Description | +--------+ + + + + | 09/29/ | Orders Only | [facility] [place] | Freddy Sanchez | Chronic kidney | | 2015 | | NEPHROLOGY [address] | M, DO [address] | disease, stage III | | | | [address] | [place], [place] [address] | (moderate) (Primary | | | | [place], [place] | [place], [place] | Dx); Type 2 diabetes | | | | [address] | [address] | mellitus with stage | | | | [phone] | | 3 chronic kidney | | | | | | disease (HCC) | +--------+ + + + + [...] encounter Progress Notes Jelena Wick RN - 09/29/2015 4:04 PM PSTLab order for nephrology appointment on 10/26/15 faxed to [facility]. documented in this encounter Plan of Treatment +--------+---------+ + + + | Date | Type | Specialty | Care Team | Description | +--------+---------+ + + + | 05/20/ | Office | Cardiology | Yumiko Del Valle, | | | 2019 | Visit | | MD Lupe TYLER | | | | | | [place] | | | | | | [address] | | | | | | | [...]
--- OUTSIDE RECORDS SUMMARY | ~2020-04-03 | XMS | Encounter Summary ---
Demographics + + + | Address | [address] | | | [place] [address] | + + + | Home Phone | | + + + | Preferred Language | Unknown | + + + | Marital Status | Single | + + + | Taoism Affiliation | Unknown | + + + | Race | Unknown | + + + | Ethnic Group | Unknown | + + + Author + + + | Author | [facility] | | | and [place] | + + + | Organization | [facility] | | | and [place] | + + + | Address | Unknown | + + + | Phone | Unavailable | + + + Support + + + + + | Name | Relationship | Address | Phone | + + + + + | Hi Dawn | ECON | [place] | | | | | [address] | | + + + + + | Atif Delgadillo | ECON | [place], [place] | | | | | [address] | | + + + + + | Caleb Dawn | ECON | Unknown | | + + + + + Care Team Providers + +------+ + | Care Checking Department Supervisor Name | Role | Phone | + +------+ + PCP | Unavailable | + +------+ + Encounter Details +--------+ + + + + | Date | Type | Department | Care Team | Description | +--------+ + + + + | 07/29/ | Abstract | [facility] | Freddy Sanchez | | | 2013 | | NEPHROLOGY [address] | M, DO [address] [place] | | | | | [address] | [place] | | | | | [place], [place] | [place] | | | | | [address] | [address] | | | | | [phone] | | | +--------+ + + + [...] | | | | | [place], [place] | | | | | | [address] | | | | | | | | +--------+---------+ + + + documented as of this encounter Procedures + +--------+ + + + | Procedure Name | Priori | Date/Time | Associated Diagnosis | Comments | | | ty | | | | + +--------+ + + + | EXTERNAL LAB: | Routin | 07/25/2014 | | Results for this | | URINALYSIS | e | | | procedure are in the | | | | | | results section. | + +--------+ + + + | EXTERNAL LAB: CBC | Routin | 07/25/2014 | | Results for this | | | e | | | procedure are in the | | | | | | results section. | + +--------+ + + + | EXTERNAL LAB: AST | Routin | 07/25/2014 | | Results for this | | | e | | | procedure are in the | | | | | | results section. | + +--------+ + + + | EXTERNAL LAB: ALT | Routin | 07/25/2014 | | Results for this | | | e | | | procedure are in the | | | | | | results section. | + +--------+ + + + | EXTERNAL LAB: | Routin | 07/25/2014 | | Results for this | | TRIGLYCERIDES | e | | | procedure are in the | | | | | | results section. | + +--------+ + + + | EXTERNAL LAB: | Routin | 07/25/2014 | | Results for this | | CHOLESTEROL, HDL | e | | | procedure are in the | | | | | | results section. | + +--------+ + + + | EXTERNAL LAB: | Routin | 07/25/2014 | | Results for this | | CHOLESTEROL, TOTAL | e | | | procedure are in the | | | | | | results section. | + +--------+ + + + | EXTERNAL LAB: | Routin | 07/25/2014 | | Results for this | | CHOLESTEROL, LDL | e | | | procedure are in the | | | | | | results section. | + +--------+ + + + | EXTERNAL LAB: | Routin | 07/25/2014 | | Results for this | | MICROALBUMIN/CREATIN | e | | | procedure are in the | | INE RATIO, URINE | | | | results section. | + +--------+ + + + | EXTERNAL LAB: | Routin | 07/25/2014 | | Results for this | | MICROALBUMIN, URINE | e | | | procedure are in the | | | | | | results section. | + +--------+ + + + | EXTERNAL LAB: EGFR | Routin | 07/25/2014 | | Results for this | | | e | | | procedure are in the | | | | | | results section. | + +--------+ + + + | EXTERNAL LAB: | Routin | 07/25/2014 | | Results for this | | CREATININE | e | | | procedure are in the | | | | | | results section. | + +--------+ + + + | EXTERNAL LAB: | Routin | 07/25/2014 | | Results for this | | HEMOGLOBIN A1C | e | | | procedure are in the | | | | | | results section. | + +--------+ + + + | CMP14+LP+CBC/D/PLT+U | Routin | 07/25/2014 | | Results for this | | A+HB A1 (NON ORD) | e | | | procedure are in the | | | | | | results section. | + +--------+ + + + documented in this encounter Results External Lab: Microalbumin/Creatinine Ratio, Urine (07/25/2014) + +-------+ + + + | Component | Value | Ref Range | Performed | Pathologist | | | | | At | Signature | + +-------+ + + + | Microalbumi | 6.8 | 0 - 30 | EXTERNAL | [...] +---------+ + + External Lab: Microalbumin, Urine (07/25/2014) + +-------+ + + + | Component | Value | Ref Range | Performed | Pathologist | | | | | At | Signature | + +-------+ + + + | Microalbumi | 0.7 | 0 - 2 | EXTERNAL | [...] + +---------+ + + External Lab: Urinalysis (07/25/2014) + + + + + + | Component | Value | Ref Range | Performed | Pathologist | | | | | At | Signature | + + + + + + | UA Blood, | negative | | | | | External | | | | | + + + + + + | UA Glucose, | normal | | | | | External | | | | | + + + + + + | UA Ketones, | negative | | | | | External | | | | | + + + + + + | UA Ph, | 5 | | | | | External | | | | | + + + + + + | UA | negative | | | | | Proteins, | | | | | | External | | | | | + + + + + + | UA RBC, | 0 | | | | | External | | | | | + + + + + + | UA Specific | 1.014 | | | | | [place], | | | | | | External | | | | | + + + + + + | UA | negative | | | | | Leukocyte | | | | | | Esterase, | | | | | | External | | | | | + + + + + + | Color, | Straw | | | | | Urine | | | | | + + + + + + | Clarity | Clear | | | | + + + + + + + + | Specimen | + + | | + + CMP14+LP+CBC/D/Plt+UA/Hb A1 (07/25/2014) + +-------+ + + + | Component | Value | Ref Range | Performed | Pathologist | | | | | At | Signature | + +-------+ + + + | Na | 138 | mmol/L | | | + +-------+ + + + | K | 4.4 | mmol/L | | | + +-------+ + + + | Cl | 104 | mmol/L | | | + +-------+ + + + | CO2 | 27 | mmol/L | | | + +-------+ + + + | BUN | 59 | mg/dL | | | + +-------+ + + + | Glucose | 145 | mg/dL | | | + +-------+ + + + | Calcium | 9.5 | mg/dL | | | + +-------+ + + + | MCV | 90.1 | fL | | | + +-------+ + + + | Bilirubin | 0.8 | mg/dL | | | | Total | | | | | + +-------+ + + + | Alkaline | 58 | U/L | | | | Phosphatase | | | | | + +-------+ + + + | Albumin | 4.5 | 3.3 - 4.8 g/dL | | | + +-------+ + + + + + | Specimen | + + | | + + External Lab: CBC (07/25/2014) + +-------+ + + + | Component | Value | Ref Range | Performed | Pathologist | | | | | At | Signature | + +-------+ + + + | WBC, | 5.9 | 4 - 11 | EXTERNAL | | | External | | | LAB | | + +-------+ + + + | HGB, | 13.5 | 12 - 16 | EXTERNAL | | | External | | | LAB | | + +-------+ + + + | HCT, | 39.2 | 35 - 45 | EXTERNAL | | | External | | | LAB | | + +-------+ + + + | PLT, | 151 | 140 - 440 | EXTERNAL | [...] + +---------+ + + External Lab: AST (07/25/2014) + +-------+ + + + | Component | Value | Ref Range | Performed | Pathologist | | | | | At | Signature | + +-------+ + + + | AST, | 13 | 0 - 40 | EXTERNAL | [...] + +---------+ + + External Lab: ALT (07/25/2014) + +-------+ + + + | Component | Value | Ref Range | Performed | Pathologist | | | | | At | Signature | + +-------+ + + + | ALT, | 14 | 0 - 40 | [...] + +---------+ + + External Lab: Triglycerides (07/25/2014) + +---------+ + + + | Component | Value | Ref Range | Performed | Pathologist | | | | | At | Signature | + +---------+ + + + | Triglycerid | 295 (A) | 150 | EXTERNAL | | | es, [...] +---------+ + + External Lab: Cholesterol, HDL (07/25/2014) + + + + + + | Component | Value | Ref Range | Performed | Pathologist | | | | | At | Signature | + + + + + + | HDL | 24.4 (A) | 40 | EXTERNAL | | [...] +---------+ + + External Lab: Cholesterol, Total (07/25/2014) + +-------+ + + + | Component | Value | Ref Range | Performed | Pathologist | | | | | At | Signature | + +-------+ + + + | Cholesterol | 157 | 200 | EXTERNAL | | | [...] +---------+ + + External Lab: Cholesterol, LDL (07/25/2014) + +-------+ + + + | Component [...] + +---------+ + + External Lab: eGFR (07/25/2014) + +--------+ + + + | Component | Value | Ref Range | Performed | Pathologist | | | | | At | Signature | + +--------+ + + + | eGFR, | 36 (A) | 60 | EXTERNAL | | | External | | | LAB | | + +--------+ + + + | eGFR, | | | EXTERNAL | | | | | | LAB | | | [place], | | | | | | External [...] + +---------+ + + External Lab: Creatinine (07/25/2014) + + + + + + | Component | Value | Ref Range | Performed | Pathologist | | | | | At | Signature | + + + + + + | Creatinine, | 1.85 (A) | 0.6 - 1.3 | EXTERNAL [...] +---------+ + + External Lab: Hemoglobin A1c (07/25/2014) + +---------+ + + + | Component | Value | Ref Range | Performed | Pathologist | | | | | At | Signature | + +---------+ + + + | Hemoglobin | 6.3 (A) | 5.7 | EXTERNAL | | | A1c, | | | LAB | | | external | | | | | + +---------+ [...]
--- OUTSIDE RECORDS SUMMARY | ~2020-04-03 | XMS | Encounter Summary ---
Demographics + + + | Address | [address] | | | [place] [address] | + + + | Home Phone [...] [place] | | | | | [address] | | + + + + + | Atif Delgadillo | ECON | [place], [place] | | | | | [address] | | + + + + + | Caleb Dawn | ECON | Unknown | | + + + + + Care Team Providers + +------+ + | Care Customer Solutions Architect Name | Role | Phone | + +------+ + PCP | Unavailable | + +------+ + Reason for Visit + + + | Reason | Comments | + + + | Nephrology | | | Appointment | | + + + Encounter Details +--------+ + + + + | Date | Type | Department | Care Team | Description | +--------+ + + + + | 02/17/ | Telephone | [facility] | Freddy Sanchez | Nephrology | | 2015 | | NEPHROLOGY [address] | M, DO [address] | Appointment | | | | [address] [facility] [address] | [place], [facility] 100 | | | | | [place], [place] | [place], [place] | | | | | [address] | [address] | | | | | [phone] | | | +--------+ + + + [...] [place] | | | | | | [address] | | | | | | | | +--------+---------+ + + + documented as of this encounter Visit Diagnoses Not on filedocumented in this encounter"
--- OUTSIDE RECORDS SUMMARY | ~2020-04-03 | XMS | Encounter Summary ---
Demographics + + + | Address | [address] | | | [place] [address] | + + + | Home Phone [...] [place] | | | | | [address] | | + + + + + | Atif Delgadillo | ECON | [place], [place] | | | | | [address] | | + + + + + | Caleb Dawn | ECON | Unknown | | + + + + + Care Team Providers + +------+ + | Care Jd Edwards Consultant Name | Role | Phone | + [...] | 05/05/ | Office | [facility] [place] | [place], | Chest pain (Primary | | 2013 | Visit | CARDIOLOGY [address] | [place] [address] | Dx); Hypertension; | | | | [place], | [place], | Hyperlipidemia | | | | [place] [address] | [place] [address] | | | | | [phone] | [phone] | | | | | | | [...] of breath. He continues to sleep at [facility] with one pillow and using his CPAP, [...] fraction A. Patient was recently admitted to [place] with a profound anemia with hemoglobin of [...] made to ensure accuracy; however, inadvertent computerized make up operator errors may be pre sent. documented in this encounter Plan of Treatment +--------+---------+ + + + | Date | Type | Specialty | Care Team | Description | +--------+---------+ + + + | 05/20/ | Office | Cardiology | Yumiko Del Valle, | | | 2019 | Visit | | MD [address] | | | | | | [place] | | | | | | [address] | | | | | | | [...] | | | | mmol/L | [facility] | | | | [...] | | GLOMERULAR FILTRATION | mL/min/1.73m2 | [facility] | | | [place] | RATE,ESTIMATED | | MEDICAL | | | | mL/min/1.01m3Vzjy than | | CENTER - | | [...] + + | Performing | Address | City/[facility]/Zipcode | Phone Number | | Organization | | | | + + + + + | [facility] | [address] | [place], [place] | [phone] | | [facility] | | [address] | | | - LABORATORY | | | | + + + + + | [facility] | [address] | [place], [place] | | | [facility] | | [id number] [place] [address] | | | - LABORATORY | | [...]
--- OUTSIDE RECORDS SUMMARY | ~2020-04-03 | XMS | Encounter Summary ---
Demographics + + + | Address | [address] | | | [place] [address] | + + + | Home Phone | | + + + | Preferred Language | Unknown | + + + | Marital Status | Single | + + + | Temple Affiliation | Unknown | + + + | Race | Unknown | + + + | Ethnic Group | Unknown | + + + Author + + + | Author | [facility] | | | and [place] | + + + | Organization | [facility] | | | and [place] | + + + | Address | Unknown | + + + | Phone | Unavailable | + + + Support + + + + + | Name | Relationship | Address | Phone | + + + + + | Hi Dawn | ECON | [place] | | | | | [address] | | + + + + + | Atif Delgadillo | ECON | [place], [place] | | | | | [address] | | + + + + + | Caleb Dawn | ECON | Unknown | | + + + + + Care Team Providers + +------+ + | Care Recovery Room Nurse Name | Role | Phone | + [...] NEPHROLOGY [address] | M, DO [address] [place] | | | | | [address] | [place], [address] | | | | | [place], [place] | [place] | | | | | [address] | [address] | | | | | [phone] | | | +--------+ + + + [...] | | | | | [place], [place] | | | | | | [address] | | | | | | | [...] | | Volume | | | [facility] | | | | | [...] [address] | [place] | [phone] | | [facility] | | [address] | | | - LABORATORY | | [...]
--- OUTSIDE RECORDS SUMMARY | ~2020-04-03 | XMS | Encounter Summary ---
Demographics + + + | Address | [address] | | | [place] [address] | + + + | Home Phone | | + + + | Preferred Language | Unknown | + + + | Marital Status | Single | + + + | Judaism Affiliation | Unknown | + + + | Race | Unknown | + + + | Ethnic Group | Unknown | + + + Author + + + | Author | [facility] | | | and [place] | + + + | Organization | [facility] | | | and [place] | + + + | Address | Unknown | + + + | Phone | Unavailable | + + + Support + + + + + | Name | Relationship | Address | Phone | + + + + + | Hi Dawn | ECON | [place] | | | | | [address] | | + + + + + | Atif Delgadillo | ECON | [place] | | | | | [address] | | + + + + + | Caleb Dawn | ECON | Unknown | | + + + + + Care Team Providers + +------+ + | Care Painter Aircraft Name | Role | Phone | + [...] | kidney | MD [address] | | | | | disease, | [place] | [place], [place] | | | | | stage 3 | [address] | [address] | | | | | (moderate) | [place] | [place] | | | | | (HCC) | [place] | [address] Phone: | | | | | Hypertension | [address] | [phone] | | | | | , essential | Phone: | Fax: | | | | | Type 2 | [phone] | [phone] | | | | | diabetes | Fax: | | | | | | mellitus | [phone] | | | | | | with stage 3 | | | | | | | chronic | | | | | | | kidney | | | | | | | disease | | | | | | | (HCC) | | | | | | | Procedures | | | | | | | [place] OFFICE | | | | | | | OUTPATIENT | | | | | | | VISIT 25 | | | | | | | MINUTES | | | +--------+--------+ + + + + Encounter Details +--------+ + + + + | Date | Type | Department | Care Team | Description | +--------+ + + + + | 06/25/ | Off-Site | [facility] [place] | Freddy Sanchez | Type 2 diabetes | | 2018 | Visit | NEPHROLOGY [address] | M, DO [address] | mellitus with stage | | | | [address] | [place], [address] | 3 chronic kidney | | | | [place], [place] | [place], [place] | disease, without | | | | [address] | [address] | long-term current | | | | [phone] | | use of insulin (HCC) | | | | | | (Primary Dx); | | | | | | Chronic kidney | | | | | | disease, stage IV | | | | | | (severe) (HCC); | | | | | | Hyperlipidemia, | | | | | | mixed; Malignant | | | | | | hypertension | +--------+ + + + + Social [...] + + + | Blood Pressure | 140/70 | 06/25/2018 2:18 PM | | | | | PDT | | + + + + + | Pulse | - | - | | + + + + + | Temperature | 36.6 C (97.8 F) | 06/25/2018 2:18 PM | | | | | PDT [...] + + + + | Weight | 130 kg (286 lb 9.6 | 06/25/2018 2:18 PM | | | | oz) | PDT | | + + + + + | Height | - | - | | + + + + + | Body Mass Index | 37.81 | 01/31/2018 3:17 PM | | | | | PDT | | + + + + + documented in this encounter Progress Notes Freddy Sanchez, - 06/25/2018 2:00 PM PDT Subjective: NEPHROLOGY Patient ID: Steve Tanner is a 73 y.o. male. HPI : Follow up for this very pleasant, 73 YOWM with CKD secondary to Type 2 DM. He al so has a history of a remote DU, 2013, hypertension, hyperlipidemia, DJD of knees, SHPTH, A SCVD, s/p left CEA, 2005, anemia secondary to CKD, gout, and Type 2 DM. He is still very conscientious about his diet, salt intake, and walking daily. 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 He feels that this has helped his glycemic control as well. Outpatient Prescriptions Marked as Taking for the 06/25/18 encounter (Off-Site Visit) with Roxana Sanchez DO [...] mg under the skin Daily. 11 [DISCONTINUED] loratadine-pseudoePHEDrine (CLARITIN-D 12 HOUR) 5-120 mg per tablet Take 1 tablet by mouth as needed. losartan (COZAAR) 25 mg tablet Take 1 tablet by mouth Daily. 90 tablet 4 mometasone (ELOCON) 0.1 % cream Apply topically Daily. [place]-3 Fatty Acids (FISH OIL) 1200 MG CAPS Take 1,200 mg by mouth 2 times daily. rosuvastatin (CRESTOR) 5 MG tablet Take 5 mg by mouth Three times a week. terbinafine (LAMISIL) 250 MG tablet Take 250 mg by mouth Daily. For 90 days, then, off for 90 days. Allergies Allergen Reactions Lisinopril Other (See Comments) Cough Penicillins Rash Objective: BP 140/70 | Temp 36.6 C (97.8 F) | Wt 130 kg (286 lb 9.6 oz) | BMI 35.82 kg/m Physical Exam Heart: Regular rate and rhythm, with no S3, S4, murmur or rub. Lungs: CTA in all linton. No rales or wheezes. Abdomen: Soft, obese, normoactive bowel sounds. Extremities: 1-2+ edema, no clubbing, or cyanosis. No foot ulcers. Lab Results Component Value Date NAEX 140 06/20/2018 KEX 4.1 06/20/2018 CLEX 101 06/20/2018 CO2EX 26 06/20/2018 BUNEX 54 (A) 06/20/2018 CREEX 2.44 (A) 06/20/2018 EGFREX 26 (A) 06/20/2018 GLUEX 109 (A) 06/20/2018 PHOSEX 4.2 06/20/2018 PTHEX 157.7 (A) 06/20/2018 GOS1BXA 5.7 06/20/2018 Lab Results Component Value Date WBCEX 6.1 06/20/2018 HGBEX 13.3 06/20/2018 HCTEX 38.8 06/20/2018 PLTEX 101 (A) 06/20/2018 Urine Pro/Cr ratio = Lab Results Component Value Date PROTEX 0.0816 06/20/2018 Assessment: 1. CKD Stage 3, secondary to diabetic glomerulosclerosis and HTN-- his GFR is stable 2. Hypertension-- excellent control. 3. Type 2 DM-- very good control by his HbA1c. 4. SHPTH-- stable on Calcitriol. 5. H/O PUD, DU, on EGD,12/16/13--asymptomatic. 6. ASCVD/ s/p left CEA, 2005--stable on ASA, statin Rx. 7. Hyperlipidemia--on statin Rx. 8. Gout-- in remission. Plan: 1. I reviewed with Steve his Scr, eGFR, BP and glycemic control. 2. He appears to be doing an excellent job at lifestyle and risk factor modification. 3. His BP appears stable on the current regimen. Will continue the losartan for its renop rotective effect. 4. He appears to have a very good grasp of his regimen, therefore, will plan to see him ba ck in 6 months. He will have a CBC, CMP, PO4, HbA1c, iPTH, Vitamin D level, lipid profile, and 24 Hour ur ine,* one week prior to that. : Anoop Moyer MD, PhD Winsome Crowder MD, [place], [place] Matheus Gregory MD, [place] , [place] documented in th is encounter [...] [place] | | | | | | [id number] | | | | | | | | +--------+---------+ + + + documented as of this encounter Procedures + +--------+ + + + | Procedure Name | Priori | Date/Time | Associated Diagnosis | Comments | | | ty | | | | + +--------+ + + + | EXTERNAL LAB: | Routin | 06/20/2018 | | Results for this | | HEMOGLOBIN A1C | e | | | procedure are in the | | | | | | results section. | + +--------+ + + + | LABS - EXTERNAL SCAN | | 06/20/2018 | | Results for this | | | | 12:00 AM | | procedure are in the | | | | PDT | | results section. | + +--------+ + + + documented in this encounter Results LABS - EXTERNAL SCAN (06/20/2018 12:00 AM PDT) + + + | Narrative | Performed At | + + + | Ordered by an | | | unspecified provider. | | + + + External Lab: Hemoglobin A1c (06/20/2018) + +-------+ + + + | Component | Value | Ref Range | Performed | Pathologist | | | | | At | Signature | + +-------+ + + + | Hemoglobin | 5.7 | % | | | | A1c, [...] | | (severe) | + + | Hyperlipidemia, mixed Mixed hyperlipidemia | + + | Malignant hypertension Essential hypertension, malignant | + + documented in this encounter"
--- OUTSIDE RECORDS SUMMARY | ~2020-04-03 | XMS | Encounter Summary ---
Demographics + + + | Address | [address] | | | [place] [address] | + + + | Home Phone [...] [place] | | | | | [address] | | + + + + + | Atif Delgadillo | ECON | [place], [place] | | | | | [address] | | + + + + + | Caleb Dawn | ECON | Unknown | | + + + + + Care Team Providers + +------+ + | Care Dovetail Machine Operator Name | Role | Phone | [...] NEPHROLOGY [address] | M, DO [address] [place] | disease, stage III | | | | [address] | [place], [place] [address] | (moderate) (Primary | | | | [place], [place] | [place], [place] | Dx); Type 2 diabetes | | | | [address] | [address] | mellitus with stage | | | | [phone] | | 3 chronic kidney | | [...] | | | | | [place], [place] | | | | | | [address] | | | | | | | [...]
--- OUTSIDE RECORDS SUMMARY | ~2020-04-03 | XMS | Encounter Summary ---
Demographics + + + | Address | [address] | | | [place] [address] | + + + | Home Phone [...] [place] | | | | | [address] | | + + + + + | Atif Delgadillo | ECON | [place], [place] | | | | | [address] | | + + + + + | Caleb Dawn | ECON | Unknown | | + + + + + Care Team Providers + +------+ + | Care Green End Worker Name | Role | Phone | + +------+ + PCP | Unavailable | + +------+ + Encounter Details +--------+ + + + + | Date | Type | Department | Care Team | Description | +--------+ + + + + | 12/25/ | Orders Only | [facility] [place] | Freddy Sanchez | Anemia in chronic | | 2013 | | NEPHROLOGY [address] | M, DO [address] [place] | kidney | | | | [address] [facility] | [place], [facility] 100 | disease(285.21) | | | | [place], [place] | [place] | (Primary Dx) | | | | [address] | [address] | | | | | [phone] | | | +--------+ + + + [...] this encounter Progress Imani Springer RN - 12/25/2013 11:[address], and in his last dictation, patient was to receive Aranesp 60 mcg sub q once today. documented in this encounter Plan of Treatment +--------+---------+ + + + | Date | Type | Specialty | Care Team | Description | +--------+---------+ + + + | 05/20/ | Office | Cardiology | Yumiko Del Valle, | | | 2019 | Visit | | [address] | | | | | | [facility] | | | | | | [address] | | | | | | | | +--------+---------+ + + + documented as of this encounter Visit Diagnoses + + | Diagnosis | + + | Anemia in chronic kidney disease(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
--- OUTSIDE RECORDS SUMMARY | ~2020-04-03 | XMS | Encounter Summary ---
Demographics + + + | Address | [address] | | | [place] [address] | + + + | Home Phone [...] [place] | | | | | [address] | | + + + + + | Atif Delgadillo | ECON | [place] | | | | | [address] | | + + + + + | Caleb Dawn | ECON | Unknown | | + + + + + Care Team Providers + +------+ + | Care Reducing Salon Attendant Name | Role | Phone | + [...] NEPHROLOGY [address] | M, DO [address] | disease, stage III | | | | [address] | [place], [place] [address] | (moderate) (HCC) | | | | [place] | [place] | (Primary Dx); | | | | [address] | [address] | Hyperlipidemia, | | | | [phone] | | mixed; Type 2 | | | | | | diabetes mellitus | | | | | | with stage 3 chronic | | | | | | kidney disease, | | | | | | unspecified whether | | | | | | jail insulin | | | | | | [...] nephrology appt on 05/06/19 sent to [facility]. documented in this en counter Plan [...] [place] | | | | | | [phone] | | | | | | | [...] | | (25-Hydroxy) | | | (moderate) ([facility]) | Expires: 04/10/2020 | | | | | Hyperlipidemia, | | | | | | mixed Type 2 | | | | | | diabetes mellitus | | | | | | with stage 3 chronic | | | | | | kidney disease, | | | | | | unspecified whether | | | | | | jail insulin | | | | | | use ([facility]) | | + +------+--------+ + + documented as of this encounter Visit Diagnoses + + | Diagnosis | + + | Chronic kidney disease, stage III (moderate) ([facility]) - Primary Chronic kidney disease, | | Stage III (moderate) | + + | Hyperlipidemia, mixed Mixed hyperlipidemia | + + | Type 2 diabetes mellitus with stage 3 chronic kidney disease, unspecified whether long | | term insulin use (HCC) | + + documented in this encounter"
--- OUTSIDE RECORDS SUMMARY | ~2020-04-03 | XMS | Encounter Summary ---
Demographics + + + | Address | [address] | | | [place] [address] | + + + | Home Phone | | + + + | Preferred Language | Unknown | + + + | Marital Status | Single | + + + | Methodist Affiliation | Unknown | + + + | Race | Unknown | + + + | Ethnic Group | Unknown | + + + Author + + + | Author | [facility] | | | and [place] | + + + | Organization | [facility] | | | and [place] | + + + | Address | Unknown | + + + | Phone | Unavailable | + + + Support + + + + + | Name | Relationship | Address | Phone | + + + + + | Hi Dawn | ECON | [place] | | | | | [address] | | + + + + + | Atif Delgadillo | ECON | [place] | | | | | [address] | | + + + + + | Caleb Dawn | ECON | Unknown | | + + + + + Care Team Providers + +------+ + | Care Nursing Tech Name | Role | Phone | [...] Description | +--------+--------+ + + + | 03/18/ | Refill | [facility] [place] | Freddy Sanchez | Medication Refill | | 2018 | | NEPHROLOGY [address] | M, DO [address] | | | | | [address] [facility] [address] | [place], [facility] [address] | | | | | [place], [place] | [place] | | | | | [address] | [address] | | | | | [phone] | | | +--------+--------+ + + + [...] | | | | | [place], [place] | | | | | | [address] | | | | | | | | +--------+---------+ + + + documented as of this encounter Visit Diagnoses + + | Diagnosis | + + | Chronic kidney disease, stage III (moderate) (HCC) Chronic kidney disease, Stage III | | (moderate) | + + | Type 2 [...]
--- OUTSIDE RECORDS SUMMARY | ~2020-04-03 | XMS | Encounter Summary ---
Demographics + + + | Address | [address] | | | [place] [address] | + + + | Home Phone [...] [place] | | | | | [address] | | + + + + + | Atif Delgadillo | ECON | [place], [place] | | | | | [address] | | + + + + + | Caleb Dawn | ECON | Unknown | | + + + + + Care Team Providers + +------+ + | Care Release Manager Name | Role | Phone [...] NEPHROLOGY [address] | M, DO [address] | | | | | [address] | [place], [address] | | | | | [place], [place] | [place] | | | | | [address] | [address] | | | | | [phone] | | | +--------+ + + + [...] | | | | | [place], [place] | | | | | | [address] | | | | | | | [...] | EXTERNAL LAB: [facility] | Routin | 05/15/2014 | | Results [...]
--- OUTSIDE RECORDS SUMMARY | ~2020-04-03 | XMS | Encounter Summary ---
Demographics + + + | Address | [address] | | | [place] [address] | + + + | Home Phone | | + + + | Preferred Language | Unknown | + + + | Marital Status | Single | + + + | Zoroastrianism Affiliation | Unknown | + + + | Race | Unknown | + + + | Ethnic Group | Unknown | + + + Author + + + | Author | [facility] | | | and [place] | + + + | Organization | [facility] | | | and [place] | + + + | Address | Unknown | + + + | Phone | Unavailable | + + + Support + + + + + | Name | Relationship | Address | Phone | + + + + + | Hi Dawn | ECON | [place] | | | | | [address] | | + + + + + | Atif Delgadillo | ECON | [place], [place] | | | | | [address] | | + + + + + | Caleb Dawn | ECON | Unknown | | + + + + + Care Team Providers + +------+ + | Care Design Maintenance Engineer Name | Role | Phone | [...] NEPHROLOGY [address] | M, DO [address] | mellitus with stage | | | | [address] | [place], [address] | 3 chronic kidney | | | | [place], [place] | [place], [place] | disease, without | | | | [address] | [address] | long-term current | | | | [phone] | | use of insulin (HCC) | [...] | | | | | [place] | | | | | | [address] | | | | | | | [...]
--- OUTSIDE RECORDS SUMMARY | ~2020-04-03 | XMS | Encounter Summary ---
Demographics + + + | Address | [address] | | | [place] [address] | + + + | Home Phone | | + + + | Preferred Language | Unknown | + + + | Marital Status | Single | + + + | Hindu Affiliation | Unknown | + + + [...] [place] | | | | | [address] | | + + + + + | Atif Delgadillo | ECON | [place], [place] | | | | | [address] | | + + + + + | Caleb Dawn | ECON | Unknown | | + + + + + Care Team Providers + +------+ + | Care Baseball Player Name | Role | Phone | + +------+ + PCP | Unavailable | + +------+ + Reason for Visit + + + | Reason | Comments | + + + | Follow-up | | + + + | Hyperlipidemia | | + + + | Congestive Heart | | | Failure | | + + + Encounter Details +--------+---------+ + + + | Date | Type | Department | Care Team | Description | +--------+---------+ + + + | 10/29/ | Office | [facility] | Timothy, | ASCVD | | 2015 | Visit | CARDIOLOGY [address] | ELLA [address] | (arteriosclerotic | | | | [place], | [place], | cardiovascular | | | | [place] [address] | [place] [address] | disease) (Primary | | | | [phone] | [phone] | Dx); Hypertension, | | | | | | essential; | | | | | | Congestive heart | | | | | | failure, unspecified | | | | | | congestive heart | | | | | | failure chronicity, | | | | | | unspecified | | | | | | congestive heart | | | | | | failure type (HCC); | | | | | | Chest pain, | | | | | | unspecified chest | | | | | | pain type | +--------+---------+ + + + Social History [...] + + + | Blood Pressure | 128/64 | 10/29/2015 1:56 PM | | | | | PST | | + + + + + | Pulse | 64 | 10/29/2015 1:56 PM | | | | | PST | | + + + + + | Temperature | - | - | | + + + + + | Respiratory Rate | 16 | 10/29/2015 1:56 PM | | | | | PST | | + + + + + | Oxygen Saturation | - | - | | + + + + + | Inhaled Oxygen | - | - | | | Concentration | | | | + + + + + | Weight | 131.1 kg (289 lb) | 10/29/2015 1:56 PM | | | | | PST | | + + + + + | Height | 190.5 cm (6' 3") | 10/29/2015 1:56 PM | | | | | PST | | + + + + + | Body Mass Index | 36.12 | 10/29/2015 1:56 PM | | | | | PST | | + + + + + documented in this encounter Progress Notes Selene Betancourt ARNP - 10/29/2015 1:41 PM PSTFormatting of this note might be different f rom the original. PATIENT NAME: Steve Tanner : 1945: AGE: 70 y.o. PRIMARY CARE: Quique Garza MD OUTPATIENT FOLLOW UP VISIT Date of Service: 10/29/2015 HISTORY OF PRESENT ILLNESS: Steve Tanner is a 70 y.o. 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 He is being seen today for follow up just with heart failure. He was last seen 11/06/2015 at which time he was to follow-up in one year and increase phys ical activity. Since that time, patient states that he has been doing "for the most part ve ry well". He has had a good energy level. He tries to stay active. He has been exercising by walking 1 mile every day. He has not had any chest pain or discomfort at rest or with ex ertion. He has not noticed shortness of breath. He has not had any lightheadedness or diz ziness. He has not noticed palpitations. He has not had leg swelling. He is able to sleep laying down at night without any symptoms of shortness of breath. He has no cardiac compla ints. MEDICAL, SURGICAL, AND PERSONAL HISTORY Past Medical, Surgical, Family, and Social History are reviewed in EPIC. CURRENT PROBLEMS Patient Active Problem List Diagnosis Type 2 diabetes mellitus with stage 3 chronic kidney disease Chronic kidney disease, stage III (moderate) Other and unspecified hyperlipidemia Acute GI bleeding Gastric ulcer with hemorrhage Light headedness Hypertension, essential Hyperlipidemia ASCVD (arteriosclerotic cardiovascular disease) Hypotension Chest pain Chronic kidney disease, stage III (moderate) CHF (congestive heart failure) Secondary hyperparathyroidism of renal origin CURRENT MEDICATIONS Current Outpatient Prescriptions Medication Sig Dispense Refill allopurinol (ZYLOPRIM) 300 mg tablet Take 300 mg by mouth Daily. aspirin 81 MG tablet Take 1 tablet by mouth Daily. calcitRIOL (ROCALTROL) 0.5 MCG capsule Take 2 capsules by mouth Every other day. (Patie nt taking differently: Take 0.5 mcg by mouth [...] (ELOCON) 0.1 % cream Apply topically Daily. [place]-3 Fatty Acids (FISH OIL) 300 MG CAPS Take 300 mg by mouth Daily. rosuvastatin (CRESTOR) 5 MG tablet Take 5 mg by mouth Three times a week. terbinafine (LAMISIL) 250 MG tablet Take 250 mg by mouth Daily. For 90 days, then, off for 90 days. No current facility-administered medications for this visit. ALLERGIES Allergies Allergen Reactions Lisinopril Other (See Comments) Cough Penicillins Rash ROS Review of Systems Constitutional: Negative for fever, chills, weight loss, malaise/fatigue and diaphoresis. HENT: Negative for congestion, hearing loss, nosebleeds and tinnitus. Dental Problems = No Eyes: Negative for blurred vision and double vision. Respiratory: Negative for shortness of breath and wheezing. Cardiovascular: Positive for leg swelling. Gastrointestinal: Negative for heartburn, nausea, vomiting, diarrhea, constipation and bloo d in stool. Genitourinary: Negative for dysuria, urgency, frequency and hematuria. Musculoskeletal: Positive for myalgias and back pain. Negative for joint pain, falls and ne ck pain. Gait Problems = No Skin: Negative for itching and rash. Neurological: Positive for tingling. Negative for dizziness, tremors, speech change, seizur es, loss of consciousness and weakness. Lightheaded = No Endo/Heme/Allergies: Does not bruise/bleed easily. Psychiatric/Behavioral: Negative for memory loss. The patient is not nervous/anxious and do es not have insomnia. OBJECTIVE: PHYSICAL EXAM BP 128/64 mmHg | Pulse 64 | Resp 16 | Ht 1.905 m (6' 3") | Wt 131.09 kg (289 lb) | BMI 36.1 2 kg/m2 Physical Exam Constitutional: He is oriented [...] a depressed mood. ECG: I personally reviewed ECG tracing from 10/29/2015 shows normal sinus rhythm with a hea rt rate of [address] bpm with no acute [address] T changes. LAB RESULTS: LIPID Lab Results Component Value Date LDLEX 36 04/16/2015 HDLEX 23.6 10/22/2015 TRIGEX 230* 10/22/2015 CHOLEX 119 10/22/2015 CHEMISTRY Lab Results Component Value Date GLU 145 07/25/2014 GLUEX 160* 10/22/2015 NA 138 07/25/2014 NAEX 141 10/22/2015 K 4.4 07/25/2014 KEX 4.0 10/22/2015 CL 104 07/25/2014 CLEX 101 10/22/2015 CO2 27 07/25/2014 CO2EX 27 10/22/2015 CALCIUM 9.5 07/25/2014 ALKPHOS 58 07/25/2014 AST 13 12/13/2013 ASTEX 12* 10/22/2015 ALT 16 12/13/2013 ALTEX 19 10/22/2015 BILITOT 0.8 07/25/2014 CREA 1.60* 05/05/2014 BUN 59 07/25/2014 EGFR 46* 12/17/2013 EGFREX 27 10/22/2015 CREEX 2.36* 10/22/2015 HEMATOLOGY Lab Results Component Value Date WBC 6.1* 12/17/2013 WBCEX 6.3 10/22/2015 HGB 7.9* 12/18/2013 HGBEX 13.3* 10/22/2015 HCT 21.1* 12/18/2013 HCTEX 39.6* 10/22/2015 PLT 113* 12/17/2013 PLTEX 131* 10/22/2015 I reviewed records from [facility] for office visit on 11/06/2015. ASSESSMENT: 1. Congestive heart failure with preserved left ventricular ejection fraction A. Patient was recently admitted to [place] with a profound anemia with hemoglobin [...] patient is doing better from cardiac standpoint. He is working on daily basis. He is able to exert himself without experiencing any angina or dyspnea at rest or on exertio n. Patient's leg edema is only trace at this point. Patient has no symptoms of angina or dy spnea at rest or on exertion. He is in a class I of NYHA functional class. There are no sig ns or symptoms of overt congestive heart failure. On physical examination there are no sign s of fluid overload. 2. Hypertension A. Blood pressure is well-controlled 3. Stage IV chronic kidney disease from diabetic nephropathy. 4. Diabetes 5. Peripheral vascular disease A. Status post left carotid endarterectomy in 2005. 6. Hyperlipidemia A. Patient is only on niacin and rosuvastatin 7. Anemia from upper GI bleeding PLAN: 1. Patient remains stable from cardiac stand point. He will continue same therapeutic med ical regimen and physical activity on a regular basis. 2. He will follow up in 1 year, or sooner with concerns. Portions of this chart may have been created with [employer] voice recognition software. Occasi onal wrong-word or [...] [place] | | | | | | [address] | | | | | | | | +--------+---------+ + + + documented as of this encounter Procedures + +--------+ + + + | Procedure Name | Priori | Date/Time | Associated Diagnosis | Comments | | | ty | | | | + +--------+ + + + | ECG 12 LEAD | Routin | 10/29/2015 | Hypertension, | Results for this | | | e | 2:03 PM | essential | procedure are in the | | | | PST | Congestive heart | results section. | | | | | failure, unspecified | | | | | | congestive heart | | | | | | failure chronicity, | | | | | | unspecified | | | | | | congestive heart | | | | | | failure type (HCC) | | + +--------+ + + + documented in this encounter Results ECG 12 lead (10/29/2015 2:03 PM PST) + + + + + + | Component | Value | Ref Range | Performed | Pathologist | | | | | At | Signature | + + + + + + | VENTRICULAR | 61 | BPM | [facility] | | | RATE EKG | | | | | + + + + + + | ATRIAL RATE | 312 | BPM | [facility] | | + + [...] MD | | | | | | ([id number]) on 10/29/2015 | | | | | [...] + | Diagnosis | + + | ASCVD (arteriosclerotic cardiovascular disease) - Primary Unspecified cardiovascular | | disease | + + | Hypertension, essential Unspecified essential hypertension | + + | Congestive heart failure, unspecified congestive heart failure chronicity, unspecified | | congestive heart failure type | + + | Chest pain, unspecified chest pain type | + + documented in this encounter
--- OUTSIDE RECORDS SUMMARY | ~2020-04-03 | XMS | Encounter Summary ---
Demographics + + + | Address | [address] | | | [place] [address] | + + + | Home Phone | | + + + | Preferred Language | Unknown | + + + | Marital Status | Single | + + + | Anabaptist Affiliation | Unknown | + + + | Race | Unknown | + + + | Ethnic Group | Unknown | + + + Author + + + | Author | [facility] | | | and [place] | + + + | Organization | [facility] [...] [place] | | | | | [address] | | + + + + + | Atif Delgadillo | ECON | [place] | | | | | [address] | | + + + + + | Caleb Dawn | ECON | Unknown | | + + + + + Care Team Providers + +------+ + | Care Home Care Consultant Name | Role | Phone | [...] NEPHROLOGY [address] | M, DO [address] | | | | | [address] [facility] | [place], [address] | | | | | [place], [place] | [place], [place] | | | | | [address] | [address] | | | | | [phone] | | | +--------+ + + + [...] [place] | | | | | | [address] | | | | | | | | +--------+---------+ + + + documented as of this encounter Procedures + +--------+ + + + | Procedure Name | Priori | Date/Time | Associated Diagnosis | Comments | | | ty | | | | + +--------+ + + + | EXTERNAL LAB: BUN | Routin | 12/28/2018 | | Results [...] | EXTERNAL LAB: SODIUM | Routin | 12/28/2018 | | Results [...]
--- OUTSIDE RECORDS SUMMARY | ~2020-04-03 | XMS | Encounter Summary ---
Demographics + + + | Address | [address] | | | [place] [address] | + + + | Home Phone [...] [place] | | | | | [address] | | + + + + + | Atif Delgadillo | ECON | [place], [place] | | | | | [address] | | + + + + + | Caleb Dawn | ECON | Unknown | | + + + + + Care Team Providers + +------+ + | Care Blocker And Polisher Gold Wheel Name | Role | Phone | + +------+ + PCP | Unavailable | + +------+ + Encounter Details +--------+ + + + + | Date | Type | Department | Care Team | Description | +--------+ + + + + | 11/28/ | Abstract | [facility] | Freddy Sanchez | | | 2014 | | NEPHROLOGY [address] | M, DO [address] | | | | | [address] | [place] | | | | | [place], [place] | [place] | | | | | [address] | [address] | | | | | [phone] | | | +--------+ + + + [...] | | | | | [place], [place] | | | | | | [address] | | | | | | | | +--------+---------+ + + + documented as of this encounter Procedures + +--------+ + + + | Procedure Name | Priori | Date/Time | Associated Diagnosis | Comments | | | ty | | | | + +--------+ + + + | EXTERNAL LAB: FATOUMATA | Routin | 11/27/2014 | | Results for this | | | e | | | procedure are in the | | | | | | results section. | + +--------+ + + + | EXTERNAL LAB: | Routin | 11/27/2014 | | Results for this | | GLUCOSE | e | | | procedure are in the | | | | | | results section. | + +--------+ + + + | EXTERNAL LAB: ALT | Routin | 11/27/2014 | | Results for this | | | e | | | procedure are in the | | | | | | results section. | + +--------+ + + + | EXTERNAL LAB: AST | Routin | 11/27/2014 | | Results for this | | | e | | | procedure are in the | | | | | | results section. | + +--------+ + + + | EXTERNAL LAB: | Routin | 11/27/2014 | | Results for this | | ALKALINE PHOSPHATASE | e | | | procedure are in the | | | | | | results section. | + +--------+ + + + | EXTERNAL LAB: | Routin | 11/27/2014 | | Results for this | | BILIRUBIN, TOTAL | e | | | procedure are in the | | | | | | results section. | + +--------+ + + + | EXTERNAL LAB: | Routin | 11/27/2014 | | Results for this | | ALBUMIN | e | | | procedure are in the | | | | | | results section. | + +--------+ + + + | EXTERNAL LAB: | Routin | 11/27/2014 | | Results for this | | PROTEIN, TOTAL | e | | | procedure are in the | | | | | | results section. | + +--------+ + + + | EXTERNAL LAB: | Routin | 11/27/2014 | | Results for this | | PHOSPHORUS | e | | | procedure are in the | | | | | | results section. | + +--------+ + + + | EXTERNAL LAB: | Routin | 11/27/2014 | | Results for this | | CALCIUM | e | | | procedure are in the | | | | | | results section. | + +--------+ + + + | EXTERNAL LAB: CARBON | Routin | 11/27/2014 | | Results for this | | DIOXIDE | e | | | procedure are in the | | | | | | results section. | + +--------+ + + + | EXTERNAL LAB: | Routin | 11/27/2014 | | Results for this | | CHLORIDE | e | | | procedure are in the | | | | | | results section. | + +--------+ + + + | EXTERNAL LAB: | Routin | 11/27/2014 | | Results for this | | POTASSIUM | e | | | procedure are in the | | | | | | results section. | + +--------+ + + + | EXTERNAL LAB: SODIUM | Routin | 11/27/2014 | | Results for this | | | e | | | procedure are in the | | | | | | results section. | + +--------+ + + + | EXTERNAL LAB: ENRICO, | Routin | 11/27/2014 | | Results for this | | INTACT | e | | | procedure are in the | | | | | | results section. | + +--------+ + + + | EXTERNAL LAB: | Routin | 11/27/2014 | | Results for this | | PROTEIN, URINE, 24HR | e | | | procedure are in the | | | | | | results section. | + +--------+ + + + | EXTERNAL LAB: EPIFANIO | Routin | 11/27/2014 | | Results for this | | | e | | | procedure are in the | | | | | | results section. | + +--------+ + + + | EXTERNAL LAB: EGFR | Routin | 11/27/2014 | | Results for this | | | e | | | procedure are in the | | | | | | results section. | + +--------+ + + + | EXTERNAL LAB: | Routin | 11/27/2014 | | Results for this | | CREATININE | e | | | procedure are in the | | | | | | results section. | + +--------+ + + + | CREATININE | Routin | 11/27/2014 | | Results for this | | CLEARANCE, RESULT | e | | | procedure are in the | | | | | | results section. | + +--------+ + + + | HEMOGLOBIN A1C | Routin | 11/27/2014 | | Results for this | | | e | | | procedure are in the | | | | | | results section. | + +--------+ + + + documented in this encounter Results External Lab: PTH, Intact (11/27/2014) + +-------+ + + + | Component | Value | Ref Range | Performed | Pathologist | | | | | At | Signature | + +-------+ + + + | PTH Intact, | 147 | | | | | External | | | | | + +-------+ + + + + + | Specimen | + + | | + + Creatinine Clearance, Result (11/27/2014) + + + + + + | Component | Value | Ref Range | Performed | Pathologist | | | | | At | Signature | + + + + + + | CREATININE | 49.0 (A) | 97.0 - 137.0 | [place] | | | CLEARANCE | | mL/min | REINA | | | | | [...] [address] | [place] | [phone] | | [facility] | | [address] | | | - LABORATORY | | | | + + + + + | [address] | [address] | [place] | | | [facility] | | [address], [facility] | | | - LABORATORY | | | | + + + + + Hemoglobin A1C (11/27/2014) + +-------+ + + + | Component | Value | Ref Range | Performed | Pathologist | | | | | At | Signature | + +-------+ + + + | Hemoglobin | 5.7 | % | EXTERNAL | | | [...] + +---------+ + + External Lab: BUN (11/27/2014) + +-------+ + + + | Component | Value | Ref Range | Performed | Pathologist | | | | | At | Signature | + +-------+ + + + | BUN, | 54 | | EXTERNAL | | | External | | | LAB | | + +-------+ + + + + +---------+ + + | Performing | Address | City/State/Zipcode | Phone Number | | Organization | | | | + +---------+ + + | EXTERNAL LAB | | | | + +---------+ + + External Lab: Glucose (11/27/2014) + +-------+ + + + | Component | Value | Ref Range | Performed | Pathologist | | | | | At | Signature | + +-------+ + + + | Glucose, | 142 | | EXTERNAL | | | External | | | LAB | | + +-------+ + + + + +---------+ + + | Performing | Address | City/State/Zipcode | Phone Number | | Organization | | | | + +---------+ + + | EXTERNAL LAB | | | | + +---------+ + + External Lab: ALT (11/27/2014) + +-------+ + + + | Component [...] + +---------+ + + External Lab: AST (11/27/2014) + +-------+ + + + | Component | Value | Ref Range | Performed | Pathologist | | | | | At | Signature | + +-------+ + + + | AST, | 18 | | EXTERNAL | | | External | | | LAB | | + +-------+ + + + + +---------+ + + | Performing | Address | City/State/Zipcode | Phone Number | | Organization | | | | + +---------+ + + | EXTERNAL LAB | | | | + +---------+ + + External Lab: Alkaline Phosphatase (11/27/2014) + +-------+ + + + | Component | Value | Ref Range | Performed | Pathologist | | | | | At | Signature | + +-------+ + + + | ALP, | 72 | | EXTERNAL | | | External | | | LAB | | + +-------+ + + + + +---------+ + + | Performing | Address | City/State/Zipcode | Phone Number | | Organization | | | | + +---------+ + + | EXTERNAL LAB | | | | + +---------+ + + External Lab: Bilirubin, Total (11/27/2014) + +-------+ + + + | Component | Value | Ref Range | Performed | Pathologist | | | | | At | Signature | + +-------+ + + + | Bilirubin, | 0.7 | | EXTERNAL | | | Total, | | | LAB | | | External | | | | | + +-------+ + + + + +---------+ + + | Performing | Address | City/State/Zipcode | Phone Number | | Organization | | | | + +---------+ + + | EXTERNAL LAB | | | | + +---------+ + + External Lab: Albumin (11/27/2014) + +-------+ + + + | Component | Value | Ref Range | Performed | Pathologist | | | | | At | Signature | + +-------+ + + + | Albumin, | 4.8 | | EXTERNAL | | | External | | | LAB | | + +-------+ + + + + +---------+ + + | Performing | Address | City/State/Zipcode | Phone Number | | Organization | | | | + +---------+ + + | EXTERNAL LAB | | | | + +---------+ + + External Lab: Protein, Total (11/27/2014) + +-------+ + + + | Component | Value | Ref Range | Performed | Pathologist | | | | | At | Signature | + +-------+ + + + | Protein, | 7.1 | | EXTERNAL | | | Total, | | | LAB | | | External | | | | | + +-------+ + + + + +---------+ + + | Performing | Address | City/State/Zipcode | Phone Number | | Organization | | | | + +---------+ + + | EXTERNAL LAB | | | | + +---------+ + + External Lab: Phosphorus (11/27/2014) + +-------+ + + + | Component | Value | Ref Range | Performed | Pathologist | | | | | At | Signature | + +-------+ + + + | Phosphorus, | 3.3 | | EXTERNAL | | | External | | | LAB | | + +-------+ + + + + +---------+ + + | Performing | Address | City/State/Zipcode | Phone Number | | Organization | | | | + +---------+ + + | EXTERNAL LAB | | | | + +---------+ + + External Lab: Calcium (11/27/2014) + +-------+ + + + | Component [...] +---------+ + + External Lab: Carbon Dioxide (11/27/2014) + +-------+ + + + | Component | Value | Ref Range | Performed | Pathologist | | | | | At | Signature | + +-------+ + + + | Carbon | 28 | | EXTERNAL | | | Dioxide, | | | LAB | | | External | | | | | + +-------+ + + + + +---------+ + + | Performing | Address | City/State/Zipcode | Phone Number | | Organization | | | | + +---------+ + + | EXTERNAL LAB | | | | + +---------+ + + External Lab: Chloride (11/27/2014) + +-------+ + + + | Component | Value | Ref Range | Performed | Pathologist | | | | | At | Signature | + +-------+ + + + | Chloride, | 100 | | EXTERNAL | | | External | | | LAB | | + +-------+ + + + + +---------+ + + | Performing | Address | City/State/Zipcode | Phone Number | | Organization | | | | + +---------+ + + | EXTERNAL LAB | | | | + +---------+ + + External Lab: Potassium (11/27/2014) + +-------+ + + + | Component | Value | Ref Range | Performed | Pathologist | | | | | At | Signature | + +-------+ + + + | Potassium, | 4.3 | | EXTERNAL | | | External | | | LAB | | + +-------+ + + + + +---------+ + + | Performing | Address | City/State/Zipcode | Phone Number | | Organization | | | | + +---------+ + + | EXTERNAL LAB | | | | + +---------+ + + External Lab: Sodium (11/27/2014) + +-------+ + + + | Component | Value | Ref Range | Performed | Pathologist | | | | | At | Signature | + +-------+ + + + | Sodium, | 140 | | EXTERNAL | | | External | | | LAB | | + +-------+ + + + + +---------+ + + | Performing | Address | City/State/Zipcode | Phone Number | | Organization | | | | + +---------+ + + | EXTERNAL LAB | | | | + +---------+ + + External Lab: Protein, Urine, 24Hr (11/27/2014) + +-------+ + + + | Component | Value | Ref Range | Performed | Pathologist | | | | | At | Signature | + +-------+ + + + | Protein, | <150 | | EXTERNAL | | | Urine [...] + +---------+ + + External Lab: CBC (11/27/2014) + +-------+ + + + | Component | Value | Ref Range | Performed | Pathologist | | | | | At | Signature | + +-------+ + + + | WBC, | 6.8 | | EXTERNAL | | | External | | | LAB | | + +-------+ + + + | HGB, | 13.9 | | EXTERNAL | | | External | | | LAB | | + +-------+ + + + | HCT, | 39.8 | | EXTERNAL | | | External | | | LAB | | + +-------+ + + + | PLT, | 159 | | EXTERNAL | | | External | | | LAB | | + +-------+ + + + | RBC, | 4.45 | | EXTERNAL | | | External | | | LAB | | + +-------+ + + + | MCV, | 89 | | EXTERNAL | | | External | | | LAB | | + +-------+ + + + | RDW, | 14.8 | | EXTERNAL | | | External | | | LAB | | + +-------+ + + + + +---------+ + + | Performing | Address | City/State/Zipcode | Phone Number | | Organization | | | | + +---------+ + + | EXTERNAL LAB | | | | + +---------+ + + External Lab: eGFR (11/27/2014) + +-------+ + + + | Component [...] | | | LAB | | | Turkish, | | | | | | External [...] + +---------+ + + External Lab: Creatinine (11/27/2014) + +-------+ + + + | Component [...]
--- OUTSIDE RECORDS SUMMARY | ~2020-04-03 | XMS | Encounter Summary ---
Demographics + + + | Address | [address] | | | [place] [address] | + + + | Home Phone [...] | [facility] | | | and [place] | + + + | Address | Unknown | + + + | Phone | Unavailable | + + + Support + + + + + | Name | Relationship | Address | Phone | + + + + + | Hi Dawn | ECON | [place] | | | | | [address] | | + + + + + | Atif Delgadillo | ECON | [place], [place] | | | | | [address] | | + + + + + | Caleb Dawn | ECON | Unknown | | + + + + + Care Team Providers + +------+ + | Care Monument Setter Helper Name | Role | Phone | [...] [address] | | | | | [place], | [place], | | | | | [place] [address] | [place] [address] | | | | | [phone] | [phone] | | | | | | | [...] | | | | | [place], [place] | | | | | | [address] | | | | | | | [...] ST. | [address] | [place] | | | [facility] | | [address], [facility] | | | - LABORATORY | | [...] St | [place] | | | [facility] | | [address], [facility] | | | - LABORATORY | | [...]
--- OUTSIDE RECORDS SUMMARY | ~2020-04-03 | XMS | Encounter Summary ---
Demographics + + + | Address | [address] | | | [place] [address] | + + + | Home Phone | | + + + | Preferred Language | Unknown | + + + | Marital Status | Single | + + + | Spiritism Affiliation | Unknown | + + + [...] [place] | | | | | [address] | | + + + + + | Atif Delgadillo | ECON | [place], [place] | | | | | [address] | | + + + + + | Caleb Dawn | ECON | Unknown | | + + + + + Care Team Providers + +------+ + | Care Logistics Service Representative Name | Role | Phone | + [...] NEPHROLOGY [address] | M, DO [address] | | | | | [address] | [place] | | | | | [place], [place] | [place] | | | | | [address] | [address] | | | | | [phone] | | | +--------+ + + + [...] | | | | | [place], [place] | | | | | | [address] | | | | | | | [...]
--- OUTSIDE RECORDS SUMMARY | ~2020-04-03 | XMS | Encounter Summary ---
Demographics + + + | Address | [address] | | | [place] [address] | + + + | Home Phone | | + + + | Preferred Language | Unknown | + + + | Marital Status | Single | + + + | Caodaism Affiliation | Unknown | + + + [...] [place] | | | | | [address] | | + + + + + | Atif Delgadillo | ECON | [place], [place] | | | | | [address] | | + + + + + | Caleb Dawn | ECON | Unknown | | + + + + + Care Team Providers + +------+ + | Care Facilities Administrator Name | Role | Phone | + +------+ + PCP | Unavailable | + +------+ + Encounter Details +--------+ + + + + | Date | Type | Department | Care Team | Description | +--------+ + + + + | 01/16/ | Hospital | [facility] | | | | 2006 | Encounter | MED CTR XRAY [address] | | | | | | [address] | | | | | | [place] [address] | | | | | | [phone] | | | +--------+ + + + [...] [place] | | | | | | [id number] | | | | | | | | +--------+---------+ + + + documented as of this encounter Visit Diagnoses Not on filedocumented in this encounter"
--- OUTSIDE RECORDS SUMMARY | ~2020-04-03 | XMS | Encounter Summary ---
Demographics + + + | Address | [address] | | | [place] [address] | + + + | Home Phone | | + + + | Preferred Language | Unknown | + + + | Marital Status | Single | + + + | Lutheran Affiliation | Unknown | + + + | Race | Unknown | + + + | Ethnic Group | Unknown | + + + Author + + + | Author | [facility] | | | and [place] | + + + | Organization | [facility] | | | and [place] | + + + | Address | Unknown | + + + | Phone | Unavailable | + + + Support + + + + + | Name | Relationship | Address | Phone | + + + + + | Hi Dawn | ECON | [place] | | | | | [address] | | + + + + + | Atif Delgadillo | ECON | [place], [place] | | | | | [address] | | + + + + + | Caleb Dawn | ECON | Unknown | | + + + + + Care Team Providers + +------+ + | Care Coach Cleaner Name | Role | Phone | [...] | unspecified | [place] [address] | | | | | type | [place] | [address] [place] | | | | | diabetes | [address] | [address] | | | | | mellitus | [place], | [place], [place] | | | | | with renal | [place] | [address] Phone: | | | | | manifestatio | [address] | [phone] | | | | | ns, not | Phone: | Fax: | | | | | stated as | [phone] | [phone] | | | | | uncontrolled | Fax: | | | | | | [phone] | [phone] | | | | | | (HCC) [...] | | [address] | [place], [address] | (moderate) (HCC) | | | | [place], [place] | [place] | (Primary Dx); | | | | [address] | [address] | Essential | | | | [phone] | | hypertension; | | | | [...] 04/16/2015 PHOSEX 3.2 04/16/2015 PTHEX 112.9 04/16/2015 DNL7FEX 6.3* 07/25/2014 Lab Results Component Value Date [...] him back in 6 mo. at the [facility]. He will have a CBC, CMP, [...] | | | | | [place] | | | | | | [id number] | | | | | | | | +--------+---------+ + + + documented as of this encounter Visit Diagnoses + + | Diagnosis | + + | Chronic kidney disease, stage III (moderate) ([facility]) - Primary Chronic kidney disease, | | Stage III (moderate) | + + | Essential hypertension Unspecified essential hypertension | + + | Type II or unspecified type diabetes mellitus with renal manifestations, not stated as | | uncontrolled(250.40) ([facility]) 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
--- OUTSIDE RECORDS SUMMARY | ~2020-04-03 | XMS | Encounter Summary ---
Demographics + + + | Address | [address] | | | [place] [address] | + + + | Home Phone | | + + + | Preferred Language | Unknown | + + + | Marital Status | Single | + + + | Yazdanism Affiliation | Unknown | + + + | Race | Unknown | + + + | Ethnic Group | Unknown | + + + Author + + + | Author | [facility] | | | and [place] | + + + | Organization | [facility] | | | and [place] | + + + | Address | Unknown | + + + | Phone | Unavailable | + + + Support + + + + + | Name | Relationship | Address | Phone | + + + + + | Hi Dawn | ECON | [place] | | | | | [address] | | + + + + + | Atif Delgadillo | ECON | [place] | | | | | [address] | | + + + + + | Caleb Dawn | ECON | Unknown | | + + + + + Care Team Providers + +------+ + | Care Geotechnical Department Manager Name | Role | Phone | [...] | kidney | MD [address] | | | | | disease, | [place] | [place], [place] | | | | | stage 3 | [place] [address] | [address] | | | | | (moderate) | [place] | [place] | | | | | (HCC) | [place] | [address] Phone: | | | | | Hypertension | [address] | [phone] | | | | | , essential | Phone: | Fax: | | | | | Type 2 | [phone] | [phone] | | | | | diabetes | Fax: | | | | | | mellitus | [phone] | | | | | | with stage 3 | | | | | | | chronic | | | | | | | kidney | | | | | | | disease | | | | | | | (HCC) | | | | | | | Procedures | | | | | | | PA OFFICE | | | | | | | OUTPATIENT | | | | | | | VISIT 25 | | | | | | | MINUTES | | | +--------+--------+ + + + + Encounter Details +--------+ + + + + | Date | Type | Department | Care Team | Description | +--------+ + + + + | 05/06/ | Off-Site | [facility] | Freddy Sanchez | Chronic kidney | | 2019 | Visit | NEPHROLOGY [address] | M, DO [address] | disease, stage III | | | | [address] | [place], [place] [address] | (moderate) (HCC) | | | | [place], [place] | [place], [place] | (Primary Dx); Type 2 | | | | [address] | [address] | diabetes mellitus | | | | [phone] | | with stage 3 chronic | | | | | | kidney disease, | | | | | | unspecified whether | | | | | | halfway insulin | | | | | | use ([facility]); | | | | | | Hyperparathyroidism | | | | | | due to renal | | | | | | insufficiency ([facility]); | | | | | | Hypercalcemia due | | | | | | to a drug | +--------+ + + + + Social [...] + + + | Blood Pressure | 154/88 | 05/06/2019 3:47 PM | | | | | PDT | | + + + + + | Pulse | - | - | | + + + + + | Temperature | 36.6 C (97.8 F) | 05/06/2019 3:47 PM | | | | | PDT [...] Weight | 128.8 kg (284 lb) | 05/06/2019 3:47 PM | | | | | PDT | | + + + + + | Height | - | - | | + + + + + | Body Mass Index | 37.47 | 01/31/2018 3:17 PM | | | | | PDT | | + + + + + documented in this encounter Patient Instructions Patient Instructions Freddy Sanchez DO - 05/06/2019 4:00 PM PDT1. Cont. Carvedilol 12.5 mg, BID 2. Losartan = 25 mg, daily. 3. Stop Calcitriol and Vitamin D3, until seen again, to allow Ca++ to normalize. 4. Hold furosemide for 3 days, then, resume. 5. Blood and urine test 1 week before next Office. documented in this encounter Progress Notes Freddy Sanchez DO - 05/06/2019 4:00 PM PDT Subjective: NEPHROLOGY Patient ID: Steve Tanner is a 74 y.o. male. HPI Comments: Follow up for this 74 YOWM with CKD secondary to Type 2 DM. He also has a history of a remote DU, 2013, hypertension, hyperlipidemia, DJD of knees, SHPTH, ASCVD, s/p left CEA, 09 05, anemia secondary to CKD, gout, and Type 2 DM. 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 His insurance company would not authorize reimbursement for Sensipar. He had "2" ER visits in the last 3 mo., one for asymptomatic hypertensive urgency, and a 2nd, where he referred himself for worsening BP. His carvedilol was reduced from 25 mg, BID to 6.25 , BID, but when his BP accelerated, her adjusted the dose to 12.5 mg, BID and is feeling better. He keeps a very detailed home BP log. He had and echo. last week prior to a Cardiology Appt.next week. He denies and TIA's or uremic symptoms. MEDS: Outpatient Medications Marked as Taking for the 05/06/19 encounter (Off-Site Visit) with Bryan Sanchez DO Medication Sig Dispense Refill allopurinol (ZYLOPRIM) 300 mg tablet Take 300 mg by mouth Daily. aspirin 81 MG tablet Take 1 tablet by mouth Daily. calcitRIOL (ROCALTROL) 0.5 MCG capsule Take 1 capsule by mouth Daily. 90 capsule 3 carvedilol (COREG) 25 mg tablet TAKE ONE TABLET BY MOUTH TWICE A DAY (WITH BREAKFAST AN D DINNER) 60 tablet 6 cinacalcet (SENSIPAR) 30 mg tablet Take 1 tablet by mouth Three times a week. 60 tablet 3 furosemide (LASIX) 40 mg tablet TAKE ONE TABLET BY MOUTH TWICE A DAY 60 tablet 6 Linagliptin (TRADJENTA) 5 MG TABS Take 5 mg by mouth Daily. liraglutide (VICTOZA) 18 mg/3 mL injection Inject 1.2 mg under the skin Daily. 11 losartan (COZAAR) 25 mg tablet Take 1 tablet by mouth Daily. 90 tablet 4 mometasone (ELOCON) 0.1 % cream Apply topically Daily. [place]-3 Fatty Acids (FISH OIL) 1200 MG CAPS Take 1,200 mg by mouth 2 times daily. rosuvastatin (CRESTOR) 5 MG tablet Take 5 mg by mouth Three times a week. Allergies Allergen Reactions Lisinopril Other (See Comments) Cough Penicillins Rash Objective: BP 154/88 | Temp 36.6 C (97.8 F) | Wt 128.8 kg (284 lb) | BMI 35.50 kg/m Physical Exam Heart: Regular rate and rhythm with no S3, S4, murmur or rub. Lungs: CTA bilaterally. No rales or wheezes. Abdomen: soft, obese, nontender, NABS. Extremities: no edema, clubbing, or cyanosis. No foot ulcers. Lab Results Component Value Date NAEX 142 05/02/2019 KEX 4.6 05/02/2019 CLEX 101 05/02/2019 CO2EX 29 05/02/2019 BUNEX 37 (A) 05/02/2019 CREEX 2.53 (A) 05/02/2019 EGFREX 25 05/02/2019 GLUEX 79 05/02/2019 CAEX 10.6 (A) 05/02/2019 PHOSEX 2.6 05/02/2019 PTHEX 87.75 (A) 05/02/2019 EUU8ZXZ 5.7 06/20/2018 Lab Results Component Value Date WBCEX 6.1 05/02/2019 HGBEX 13.6 05/02/2019 HCTEX 39.7 (A) 05/02/2019 PLTEX 141 05/02/2019 Lab Results Component Value Date HBA1C 5.6 05/02/2019 Urine Pro/Cr ratio = Lab Results Component Value Date PROTEX 0.0816 06/20/2018 Assessment: 1. CKD Stage 3, secondary to diabetic glomerulosclerosis and HTN-- Scr is likely elevated due to hypercalcemia, and ECF volume contraction? 2. Hypertension-- good control from review of his home readings? 3. Type 2 DM-- excellent control. 4. SHPTH-- iPTH better, but complicated by hypercalcemia? 5. H/O PUD, DU, on EGD,12/16/13-- no recurrence. 6. ASCVD/ s/p left CEA, 2005--stable on ASA, statin Rx. 7. Hyperlipidemia--on statin Rx. 8. Gout-- quiescent. Plan: 1. I reviewed with Humphrey his Scr, Sca++, lab and eGFR. Will have him hold his Calcitriol and Vitamin D3 for now. Also, will have him hold his furosemide for 3 days, and then resume it. I expect that as his Sca++ normalizes , his Scr will albert further? 2. His BP control appears very good on his current regimen. 3. I encouraged Santiago that he is doing an excellent job with his glycemic control and very low CHO diet. 4. He does verbalize that he is a little discourage with all of his health care and Allied Health appointments. Therefore, will not repeat his blood tests until the next visit. Will continue his ARB, losartan, for its renoprotective effect. 5. Will plan to see him back in 4 months at the [facility] at [place], [place]. He will have a CBC, CMP, PO4, HbA1c, iPTH, and spot Urine Pro/Cr ratio one week prior to that. I told him that I would gladly pass the above changes on to Dr. Moyer's Office, oh s PCP. Electronically signed by Freddy Sanchez DO. 05/06/19 14:46 CC: Anoop Vargas MD, [facility] Yumiko Del Valle MD, [facility] Matheus Gregory MD, [facility] [place], [place] documented in thi s encounter Plan of Treatment +--------+---------+ + + + | Date | Type | Specialty | Care Team | Description | +--------+---------+ + + + | 05/20/ | Office | Cardiology | Yumiko Del Valle, | | | 2019 | Visit | | MD [address]pe [address] | | | | | | [place] | | | | | | [address] | | | | | | | | +--------+---------+ + + + documented as of this encounter Procedures + +--------+ + + + | Procedure Name | Priori | Date/Time | Associated Diagnosis | Comments | | | ty | | | | + +--------+ + + + | LABS - EXTERNAL SCAN | | 05/02/2019 | | Results for this | | | | 12:00 AM | | procedure are in the | | | | PDT | | results section. 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
--- OUTSIDE RECORDS SUMMARY | ~2020-04-03 | XMS | Encounter Summary ---
Demographics + + + | Address | [address] | | | [place] [address] | + + + | Home Phone [...] [place] | | | | | [address] | | + + + + + | Atif Delgadillo | ECON | [place], [place] | | | | | [address] | | + + + + + | Caleb Dawn | ECON | Unknown | | + + + + + Care Team Providers + +------+ + | Care Nursing Home Assistant Name | Role | Phone | + [...] + + | 07/06/ | Telephone | [facility] | Freddy Sanchez | Blood Pressure | | 2016 | | NEPHROLOGY [address] | M, DO [address] | | | | | [address] | [place] [place] [address] | | | | | [place], [place] | [facility] | | | | | [address] | [address] | | | | | [phone] | | | +--------+ + + + [...] [place] | | | | | | [address] | | | | | | | | +--------+---------+ + + + documented as of this encounter Visit Diagnoses Not on filedocumented in this encounter"
--- OUTSIDE RECORDS SUMMARY | ~2020-04-03 | XMS | Encounter Summary ---
Demographics + + + | Address | [address] | | | [place] [address] | + + + | Home Phone [...] [place] | | | | | [address] | | + + + + + | Atif Delgadillo | ECON | [place] | | | | | [address] | | + + + + + | Caleb Dawn | ECON | Unknown | | + + + + + Care Team Providers + +------+ + | Care Cash On Delivery Clerk Name | Role | Phone | + +------+ + | Anoop Moyer MD | PCP | | + +------+ + Encounter Details +--------+ + + + + | Date | Type | Department | Care Team | Description | +--------+ + + + + | 06/14/ | Orders Only | [facility] | Provider, | | | 2019 | | SYSTEM GENERIC OP | [address] | | | | | CONVERSION [address] | [address] | | | | | [address] [place], [place] | [place] [address] | | | | | [address] | | | | | | [phone] | | | +--------+ + + + [...] [place] | | | | | | [address] | | | | | | | | +--------+---------+ + + + documented as of this encounter Visit Diagnoses Not on filedocumented in this encounter"
--- OUTSIDE RECORDS SUMMARY | ~2020-04-03 | XMS | Encounter Summary ---
Demographics + + + | Address | [address] | | | [place] [address] | + + + | Home Phone [...] [place] | | | | | [address] | | + + + + + | Atif Delgadillo | ECON | [place], [place] | | | | | [address] | | + + + + + | Caleb Dawn | ECON | Unknown | | + + + + + Care Team Providers + +------+ + | Care Ross Lift Operator Name | Role | Phone | + +------+ + PCP | Unavailable | + +------+ + Reason for Visit + + + | Reason | Comments | + + + | Medication Refill | | + + + Encounter Details +--------+--------+ + + + | Date | Type | Department | Care Team | Description | +--------+--------+ + + + | 06/25/ | Refill | [facility] [place] | Timothy, | Medication Refill | | 2013 | | CARDIOLOGY [address] | [address] | | | | | [place], | [place], | | | | | [place] [address] | [place] [address] | | | | | [phone] | [phone] | | | | | | | | +--------+--------+ + + + [...] [place] | | | | | | [address] | | | | | | | | +--------+---------+ + + + documented as of this encounter Visit Diagnoses Not on filedocumented in this encounter"
--- OUTSIDE RECORDS SUMMARY | ~2020-04-03 | XMS | Encounter Summary ---
Demographics + + + | Address | [address] | | | [place] [address] | + + + | Home Phone [...] [place] | | | | | [address] | | + + + + + | Atif Delgadillo | ECON | [place], [place] | | | | | [address] | | + + + + + | Caleb Dawn | ECON | Unknown | | + + + + + Care Team Providers + +------+ + | Care Nautical Instrument Mechanic Name | Role | Phone | + +------+ + PCP | Unavailable | + +------+ + Encounter Details +--------+ + + + + | Date | Type | Department | Care Team | Description | +--------+ + + + + | 01/06/ | Abstract | [facility] | Freddy Sanchez | | | 2017 | | NEPHROLOGY [address] | M, DO [address] | | | | | [address] | [place] [place] [address] | | | | | [place], [place] | [place] | | | | | [address] | [address] | | | | | [phone] | | | +--------+ + + + [...] | | | | | [place], [place] | | | | | | [address] | | | | | | | | +--------+---------+ + + + documented as of this encounter Procedures + +--------+ + + + | Procedure Name | Priori | Date/Time | Associated Diagnosis | Comments | | | ty | | | | + +--------+ + + + | EXTERNAL LAB: FATOUMATA | Routin | 01/05/2017 | | Results [...] | EXTERNAL LAB: ALT | Routin | 01/05/2017 | | Results for this | | | e | | | procedure are in the | | | | | | results section. | + +--------+ + + + | EXTERNAL LAB: AST | Routin | 01/05/2017 | | Results [...] | EXTERNAL LAB: CARBON | Routin | 01/05/2017 | | Results [...] | EXTERNAL LAB: SODIUM | Routin | 01/05/2017 | | Results for this | | | e | | | procedure are in the | | | | | | results section. | + +--------+ + + + | EXTERNAL LAB: PTH, | Routin | 01/05/2017 | | Results [...] | EXTERNAL LAB: CBC | Routin | 01/05/2017 | | Results [...] | EXTERNAL LAB: EGFR | Routin | 01/05/2017 | | Results [...] + + | CREATININE | Routin | 01/05/2017 | | Results for this | | CLEARANCE, RESULT | e | | | procedure are in the | | | | | | results section. | + +--------+ + + + | HEMOGLOBIN A1C | Routin | 01/05/2017 | | Results for this | | | e | | | procedure are in the | | | | | | results section. | + +--------+ + + + documented in this encounter Results Creatinine Clearance, Result (01/05/2017) + + + + + + | Component | Value | Ref Range | Performed | Pathologist | | | | | At | Signature | + + + + + + | CREATININE | 50.0 (A) | 97.0 - 137.0 | | | | CLEARANCE | | mL/min | | | + + + + + + | 24H Urine | 3,000 | mL | | | | Volume | | | | | + + + + + + + + | Specimen | + + | Urine specimen | | (specimen) | + + External Lab: PTH, Intact (01/05/2017) + + + + + + | Component | Value | Ref Range | Performed | Pathologist | | | | | At | Signature | + + + + + + | PTH Intact, | 135.7 (A) | 15 - 65 | | | | External | | | | | + + + + + + + + | Specimen | + + | | + + Hemoglobin A1C (01/05/2017) + +-------+ + + + | Component | Value | Ref Range | Performed | Pathologist | | | | | At | Signature | + +-------+ + + + | Hemoglobin | 6.5 | | | | | A1c, | | | | | | external | | | | | + +-------+ + + + + + | Specimen | + + | Blood specimen | | (specimen) | + + External Lab: BUN (01/05/2017) + +--------+ + + + | Component | Value | Ref Range | Performed | Pathologist | | | | | At | Signature | + +--------+ + + + | BUN, | 53 (A) | 0.7 - 1.8 | | | | External | | | | | + +--------+ + + + External Lab: Glucose (01/05/2017) + +---------+ + + + | Component | Value | Ref Range | Performed | Pathologist | | | | | At | Signature | + +---------+ + + + | Glucose, | 176 (A) | 70 - 100 | | | | External | | | | | + +---------+ + + + External Lab: ALT (01/05/2017) + +-------+ + + + | Component | Value | Ref Range | Performed | Pathologist | | | | | At | Signature | + +-------+ + + + | ALT, | 16 | 7 - 52 | | | | External | | | | | + +-------+ + + + External Lab: AST (01/05/2017) + +--------+ + + + | Component | Value | Ref Range | Performed | Pathologist | | | | | At | Signature | + +--------+ + + + | AST, | 11 (A) | 13 - 39 | | | | External | | | | | + +--------+ + + + External Lab: Alkaline Phosphatase (01/05/2017) + +-------+ + + + | Component | Value | Ref Range | Performed | Pathologist | | | | | At | Signature | + +-------+ + + + | ALP, | 59 | 31 - 120 | | | | External | | | | | + +-------+ + + + External Lab: Bilirubin, Total (01/05/2017) + +-------+ + + + | Component | Value | Ref Range | Performed | Pathologist | | | | | At | Signature | + +-------+ + + + | Bilirubin, | 0.8 | 0 - 1.2 | | | | Total, | | | | | | External | | | | | + +-------+ + + + External Lab: Albumin (01/05/2017) + +-------+ + + + | Component | Value | Ref Range | Performed | Pathologist | | | | | At | Signature | + +-------+ + + + | Albumin, | 4.7 | 3.5 - 5 | | | | External | | | | | + +-------+ + + + External Lab: Protein, Total (01/05/2017) + +-------+ + + + | Component | Value | Ref Range | Performed | Pathologist | | | | | At | Signature | + +-------+ + + + | Protein, | 6.7 | 6 - 8 | | | | Total, | | | | | | External | | | | | + +-------+ + + + External Lab: Calcium (01/05/2017) + +-------+ + + + | Component | Value | Ref Range | Performed | Pathologist | | | | | At | Signature | + +-------+ + + + | Calcium, | 9.8 | 8.4 - 10.2 | | | | External | | | | | + +-------+ + + + External Lab: Carbon Dioxide (01/05/2017) + +-------+ + + + | Component | Value | Ref Range | Performed | Pathologist | | | | | At | Signature | + +-------+ + + + | Carbon | 26 | 19 - 31 | | | | Dioxide, | | | | | | External | | | | | + +-------+ + + + External Lab: Chloride (01/05/2017) + +-------+ + + + | Component | Value | Ref Range | Performed | Pathologist | | | | | At | Signature | + +-------+ + + + | Chloride, | 101 | 95 - 112 | | | | External | | | | | + +-------+ + + + External Lab: Potassium (01/05/2017) + +-------+ + + + | Component | Value | Ref Range | Performed | Pathologist | | | | | At | Signature | + +-------+ + + + | Potassium, | 4 | 3.6 - 5.1 | | | | External | | | | | + +-------+ + + + External Lab: Sodium (01/05/2017) + +-------+ + + + | Component | Value | Ref Range | Performed | Pathologist | | | | | At | Signature | + +-------+ + + + | Sodium, | 140 | 132 - 143 | | | | External | | | | | + +-------+ + + + External Lab: Protein, Urine, 24Hr (01/05/2017) + +-------+ + + + | Component | Value | Ref Range | Performed | Pathologist | | | | | At | Signature | + +-------+ + + + | Protein, | 120 | | | | | Urine 24Hr, | | | | | | External | | | | | + +-------+ + + + + + | Specimen | + + | Urine specimen | | (specimen) | + + External Lab: CBC (01/05/2017) + + + + + + | Component | Value | Ref Range | Performed | Pathologist | | | | | At | Signature | + + + + + + | WBC, | 6.5 | 4.5 - 11 | | | | External | | | | | + + + + + + | HGB, | 13.5 | 13.5 - 18 | | | | External | | | | | + + + + + + | HCT, | 39.7 (A) | 41 - 50 | | | | External | | | | | + + + + + + | PLT, | 139 (A) | 140 - 440 | | | | External | | | | | + + + + + + | RBC, | 4.4 | 4.3 - 5.7 | | | | External | | | | | + + + + + + | MCV, | 90 | 81 - 99 | | | | External | | | | | + + + + + + | RDW, | 15.2 (A) | 10.5 - 15 | | | | External | | | | | + + + + + + External Lab: Triglycerides (01/05/2017) + +---------+ + + + | Component | Value | Ref Range | Performed | Pathologist | | | | | At | Signature | + +---------+ + + + | Triglycerid | 222 (A) | 30 - 150 | | | | es, | | | | | | External | | | | | + +---------+ + + + + + | Specimen | + + | Blood specimen | | (specimen) | + + External Lab: Cholesterol, HDL (01/05/2017) + + + + + + | Component | Value | Ref Range | Performed | Pathologist | | | | | At | Signature | + + + + + + | HDL | 26.6 (A) | 40 mg/dl | | | | Cholesterol | | | | | | , External | | | | | + + + + + + + + | Specimen | + + | Blood specimen | | (specimen) | + + External Lab: Cholesterol, Total (01/05/2017) + +-------+ + + + | Component | Value | Ref Range | Performed | Pathologist | | | | | At | Signature | + +-------+ + + + | Cholesterol | 133 | 200 mg/dl | | | | , Total, | | | | | | External | | | | | + +-------+ + + + + + | Specimen | + + | Blood specimen | | (specimen) | + + External Lab: Cholesterol, LDL (01/05/2017) + +-------+ + + + | Component | Value | Ref Range | Performed | Pathologist | | | | | At | Signature | + +-------+ + + + | LDL | 62 | 100 | | | | Cholesterol | | | | | | , Direct, | | | | | | External | | | | | + +-------+ + + + + + | Specimen | + + | Blood specimen | | (specimen) | + + External Lab: eGFR (01/05/2017) + +-------+ + + + | Component | Value | Ref Range | Performed | Pathologist | | | | | At | Signature | + +-------+ + + + | eGFR, | 28 | | | | | External | | | | | + +-------+ + + + + + | Specimen | + + | Blood specimen | | (specimen) | + + External Lab: Creatinine (01/05/2017) + + + + + + | Component | Value | Ref Range | Performed | Pathologist | | | | | At | Signature | + + + + + + | Creatinine, | 2.33 (A) | 0.7 - 1.18 | | | | External | | | | | + + + + + + + + | Specimen | + + | Blood specimen | | (specimen) | + + documented in this encounter Visit Diagnoses Not on filedocumented in this encounter"
--- OUTSIDE RECORDS SUMMARY | ~2020-04-03 | XMS | Encounter Summary ---
Demographics + + + | Address | [address] | | | [place] [address] | + + + | Home Phone [...] + | Author | [facility] | | | and [place] | + + + | Organization | [facility] | | | and [place] | + + + | Address | Unknown | + + + | Phone | Unavailable | + + + Support + + + + + | Name | Relationship | Address | Phone | + + + + + | Hi Dawn | ECON | [place] | | | | | [address] | | + + + + + | Atif Delgadillo | ECON | [place], [place] | | | | | [address] | | + + + + + | Caleb Dawn | ECON | Unknown | | + + + + + Care Team Providers + +------+ + | Care Middle School Teacher Name | Role | Phone | + +------+ + PCP | Unavailable | + +------+ + Encounter Details +--------+ + + + + | Date | Type | Department | Care Team | Description | +--------+ + + + + | 02/28/ | Hospital | [facility] | Saad Ivan | | | 2001 | Encounter | MED CTR SLEEP | MD Tomás [address] | | | | | [place] [address] | [facility] | | | | | [place] | [place] [address] | | | | | [address] | [phone] | | | | | [phone] | | | +--------+ + + + [...] [place] | | | | | | [address] | | | | | | | | +--------+---------+ + + + documented as of this encounter Visit Diagnoses Not on filedocumented in this encounter"
--- OUTSIDE RECORDS SUMMARY | ~2020-04-03 | XMS | Encounter Summary ---
Demographics + + + | Address | [address] | | | [place] [address] | + + + | Home Phone [...] [place] | | | | | [address] | | + + + + + | Atif Delgadillo | ECON | [place], [place] | | | | | [address] | | + + + + + | Caleb Dawn | ECON | Unknown | | + + + + + Care Team Providers + +------+ + | Care Grants Assistant Name | Role | Phone | [...] + + | 01/16/ | Telephone | [facility] | Freddy Sanchez | Medication | | 2014 | | NEPHROLOGY [address] | M, DO [address] | Management | | | | [address] [facility] [address] | [place], [facility] [address] | | | | | [place], [place] | [place], [place] | | | | | [address] | [address] | | | | | [phone] | | | +--------+ + + + [...] [place] | | | | | | [address] | | | | | | | | +--------+---------+ + + + documented as of this encounter Visit Diagnoses Not on filedocumented in this encounter"
--- OUTSIDE RECORDS SUMMARY | ~2020-04-03 | XMS | Encounter Summary ---
Demographics + + + | Address | [address] | | | [place] [address] | + + + | Home Phone [...] [place] | | | | | [address] | | + + + + + | Atif Delgadillo | ECON | [place], [place] | | | | | [address] | | + + + + + | Caleb Dawn | ECON | Unknown | | + + + + + Care Team Providers + +------+ + | Care High School Chemistry Teacher Name | Role | Phone | [...] NEPHROLOGY [address] | M, DO [address] [place] | disease, stage III | | | | [address] | [place], [place] [address] | (moderate) (Primary | | | | [place], [place] | [place], [place] | Dx); Hypertension | | | | [address] | [address] | | | | | [phone] | | | +--------+ + + + [...] - 03/20 1:41 PM PDTLabs sent to [facility] 04/28/2014 documented in this e ncounter Plan of Treatment +--------+---------+ + + + | Date | Type | Specialty | Care Team | Description | +--------+---------+ + + + | 05/20/ | Office | Cardiology | Eligio Tripprhoda, | | | 2019 | Visit | | MD Lupe TYLER | | | | | | [place], [place] | | | | | | [address] | | | | | | | [...]
--- OUTSIDE RECORDS SUMMARY | ~2020-04-03 | XMS | Encounter Summary ---
Demographics + + + | Address | [address] | | | [place] [address] | + + + | Home Phone [...] [place] | | | | | [address] | | + + + + + | Atif Delgadillo | ECON | [place], [place] | | | | | [address] | | + + + + + | Caleb Dawn | ECON | Unknown | | + + + + + Care Team Providers + +------+ + | Care Accounting/Finance Tutor Name | Role | Phone | + +------+ + PCP | Unavailable | + +------+ + Encounter Details +--------+ + + + + | Date | Type | Department | Care Team | Description | +--------+ + + + + | 02/12/ | Abstract | [facility] | Freddy Sanchez | | | 2013 | | NEPHROLOGY [address] | M, DO [address] [place] | | | | | [address] | [place] [place] [address] | | | | | [place], [place] | [place] | | | | | [address] | [address] | | | | | [phone] | | | +--------+ + + + [...] [place] | | | | | | [address] | | | | | | | | +--------+---------+ + + + documented as of this encounter Procedures + +--------+ + + + | Procedure Name | Priori | Date/Time | Associated Diagnosis | Comments | | | ty | | | | + +--------+ + + + | EXTERNAL LAB: EPIFANIO | Routin | 02/12/2014 | | Results for this | | | e | | | procedure are in the | | | | | | results section. | + +--------+ + + + | EXTERNAL LAB: EPIFANIO | Routin | 02/12/2014 | | Results for this | | | e | | | procedure are in the | | | | | | results section. | + +--------+ + + + | EXTERNAL LAB: AST | Routin | 02/12/2014 | | Results for this | | | e | | | procedure are in the | | | | | | results section. | + +--------+ + + + | EXTERNAL LAB: ALT | Routin | 02/12/2014 | | Results for this | | | e | | | procedure are in the | | | | | | results section. | + +--------+ + + + | EXTERNAL LAB: | Routin | 02/12/2014 | | Results for this | | TRIGLYCERIDES | e | | | procedure are in the | | | | | | results section. | + +--------+ + + + | EXTERNAL LAB: | Routin | 02/12/2014 | | Results for this | | CHOLESTEROL, HDL | e | | | procedure are in the | | | | | | results section. | + +--------+ + + + | EXTERNAL LAB: | Routin | 02/12/2014 | | Results for this | | CHOLESTEROL, TOTAL | e | | | procedure are in the | | | | | | results section. | + +--------+ + + + | EXTERNAL LAB: | Routin | 02/12/2014 | | Results for this | | CHOLESTEROL, LDL | e | | | procedure are in the | | | | | | results section. | + +--------+ + + + | EXTERNAL LAB: EGFR | Routin | 02/12/2014 | | Results for this | | | e | | | procedure are in the | | | | | | results section. | + +--------+ + + + | EXTERNAL LAB: | Routin | 02/12/2014 | | Results for this | | CREATININE | e | | | procedure are in the | | | | | | results section. | + +--------+ + + + | EXTERNAL LAB: | Routin | 02/12/2014 | | Results for this | | HEMOGLOBIN A1C | e | | | procedure are in the | | | | | | results section. | + +--------+ + + + | CMPI | Routin | 02/12/2014 | | Results for this | | | e | | | procedure are in the | | | | | | results section. | + +--------+ + + + documented in this encounter Results CMP/ISTAT (02/12/2014) + + + + + + | Component | Value | Ref Range | Performed | Pathologist | | | | | At | Signature | + + + + + + | Uric Acid | 6.3 | mg/dL | EXTERNAL | | | | | | LAB | | + + + + + + | Phosphorus | 2.8 | 2.1 - 3.9 mg/dL | EXTERNAL | | | | | | LAB | | + + + + + + | CREATININE | 79.0 (A) | 97.0 - 137.0 | EXTERNAL | | | CLEARANCE | | mL/min | LAB | | + + + + + + | Na | 138 | mmol/L | EXTERNAL | | | | | | LAB | | + + + + + + | K | 3.9 | mmol/L | EXTERNAL | | | | | | LAB | | + + + + + + | Cl | 102 | mmol/L | EXTERNAL | | | | | | LAB | | + + + + + + | CO2 | 30 | mmol/L | EXTERNAL | | | | | | LAB | | + + + + + + | Glucose | 164 | mg/dL | EXTERNAL | | | | | | LAB | | + + + + + + | BUN | 34 | mg/dL | EXTERNAL | | | | | | LAB | | + + + + + + | Calcium | 9.5 | mg/dL | EXTERNAL | | | | | | LAB | | + + + + + + | Alkaline | 89 | U/L | EXTERNAL | | | Phosphatase | | | LAB | | + + + + + + | Bilirubin | 0.5 | mg/dL | EXTERNAL | | | Total | | | LAB | | + + + + + + | Albumin | 4.6 | 3.3 - 4.8 g/dL | EXTERNAL | | | | | | LAB | | + + + + + + | PROTEIN, | 287.0 | mg/24hrs | EXTERNAL | | | 24HR URINE | | | LAB | | + + + + + + | MCV | 87.3 | fL | EXTERNAL | | | | | | LAB | | + + + + + + | PTH INTACT | 105.1 | pg/mL | EXTERNAL | | | [...] + +---------+ + + External Lab: CBC (02/12/2014) + + + + + + | Component | Value | Ref Range | Performed | Pathologist | | | | | At | Signature | + + + + + + | HCT, | 38.6 (A) | 41 - 50 | EXTERNAL | | | External | | | LAB | | + + + + + + | PLT, | 169 | 140 - 440 | EXTERNAL | [...] + +---------+ + + External Lab: CBC (02/12/2014) + + + + + + | Component | Value | Ref Range | Performed | Pathologist | | | | | At | Signature | + + + + + + | WBC, | 8.6 | 4.5 - 11 | EXTERNAL | | | External | | | LAB | | + + + + + + | HGB, | 13.1 (A) | 135 | EXTERNAL | | | External | [...] + +---------+ + + External Lab: AST (02/12/2014) + +-------+ + + + | Component | Value | Ref Range | Performed | Pathologist | | | | | At | Signature | + +-------+ + + + | AST, | 16 | 13 - 39 | EXTERNAL | [...] + +---------+ + + External Lab: ALT (02/12/2014) + +-------+ + + + | Component [...] + +---------+ + + External Lab: Triglycerides (02/12/2014) + +---------+ + + + | Component | Value | Ref Range | Performed | Pathologist | | | | | At | Signature | + +---------+ + + + | Triglycerid | 253 (A) | 30 - 150 | EXTERNAL [...] +---------+ + + External Lab: Cholesterol, HDL (02/12/2014) + + + + + + | Component | Value | Ref Range | Performed | Pathologist | | | | | At | Signature | + + + + + + | HDL | 30.4 (A) | 40 | EXTERNAL | | [...] +---------+ + + External Lab: Cholesterol, Total (02/12/2014) + +-------+ + + + | Component | Value | Ref Range | Performed | Pathologist | | | | | At | Signature | + +-------+ + + + | Cholesterol | 161 | 200 | EXTERNAL | | | [...] +---------+ + + External Lab: Cholesterol, LDL (02/12/2014) + +-------+ + + + | Component | Value | Ref Range | Performed | Pathologist | | | | | At | Signature | + +-------+ + + + | LDL | 80 | 100 | EXTERNAL | | | [...] + +---------+ + + External Lab: eGFR (02/12/2014) + +-------+ + + + | Component | Value | Ref Range | Performed | Pathologist | | | | | At | Signature | + +-------+ + + + | eGFR, | 49 | | EXTERNAL | | | External | | | LAB | | + +-------+ + + + | eGFR, | | | EXTERNAL | | | | | | LAB | | | Latvian, | | | | | | External [...] + +---------+ + + External Lab: Creatinine (02/12/2014) + + + + + + | Component | Value | Ref Range | Performed | Pathologist | | | | | At | Signature | + + + + + + | Creatinine, | 1.42 (A) | 0.7 - 1.18 | EXTERNAL [...] +---------+ + + External Lab: Hemoglobin A1c (02/12/2014) + +-------+ + + + | Component | Value | Ref Range | Performed | Pathologist | | | | | At | Signature | + +-------+ + + + | Hemoglobin | 5.2 | | EXTERNAL | | | A1c, [...]
--- OUTSIDE RECORDS SUMMARY | ~2020-04-03 | XMS | Encounter Summary ---
Demographics + + + | Address | [address] | | | [place] [address] | + + + | Home Phone | | + + + | Preferred Language | Unknown | + + + | Marital Status | Single | + + + | Latter Day Affiliation | Unknown | + + + [...] [place] | | | | | [address] | | + + + + + | Atif Delgadillo | ECON | [place], [place] | | | | | [address] | | + + + + + | Caleb Dawn | ECON | Unknown | | + + + + + Care Team Providers + +------+ + | Care Work From Home Name | Role | Phone | + +------+ + PCP | Unavailable | + +------+ + Encounter Details +--------+ + + + + | Date | Type | Department | Care Team | Description | +--------+ + + + + | 08/04/ | Abstract | [facility] | Freddy Sanchez | | | 2014 | | NEPHROLOGY [address] | M, DO [address] [place] | | | | | [address] | [place], [place] [address] | | | | | [place], [place] | [place] | | | | | [address] | [address] | | | | | [phone] | | | +--------+ + + + [...] | | | | | [place], [place] | | | | | | [address] | | | | | | | | +--------+---------+ + + + documented as of this encounter Procedures + +--------+ + + + | Procedure Name | Priori | Date/Time | Associated Diagnosis | Comments | | | ty | | | | + +--------+ + + + | HEMOGLOBIN A1C | Routin | 08/03/2015 | | Results for this | | | e | | | procedure are in the | | | | | | results section. | + +--------+ + + + documented in this encounter Results Hemoglobin A1C (08/03/2015) + +-------+ + + + | Component | Value | Ref Range | Performed | Pathologist | | | | | At | Signature | + +-------+ + + + | Hemoglobin | 6.0 | | EXTERNAL | | | A1c, [...]
--- OUTSIDE RECORDS SUMMARY | ~2020-04-03 | XMS | Encounter Summary ---
Demographics + + + | Address | [address] | | | [place] [address] | + + + | Home Phone [...] [place] | | | | | [address] | | + + + + + | Atif Delgadillo | ECON | [place] | | | | | [address] | | + + + + + | Caleb Dawn | ECON | Unknown | | + + + + + Care Team Providers + +------+ + | Care Bar Steward Name | Role | Phone | + +------+ + | Anoop Moyer MD | PCP | | + +------+ + Encounter Details +--------+ + + + + | Date | Type | Department | Care Team | Description | +--------+ + + + + | 03/12/ | Abstract | [facility] [place] | Freddy Sanchez | | | 2019 | | NEPHROLOGY [address] | M, DO [address] [place] | | | | | [address] [facility] | [place], [place] [address] | | | | | [place], [place] | [place], [place] | | | | | [address] | [address] | | | | | [phone] | | | +--------+ + + + [...] [place] | | | | | | [address] | | | | | | | [...] documented in this encounter Results External Lab: Protein, Urine, 24Hr (03/11/2020) + [...] | | + + Creatinine Clearance, Result (03/11/2020) + [...] + +---------+ + + External Lab: BUN (03/11/2020) + +-------+ + [...]
--- OUTSIDE RECORDS SUMMARY | ~2020-04-03 | XMS | Encounter Summary ---
Demographics + + + | Address | [address] | | | [place] [address] | + + + | Home Phone [...] [place] | | | | | [address] | | + + + + + | Atif Delgadillo | ECON | [place], [place] | | | | | [address] | | + + + + + | Caleb Dawn | ECON | Unknown | | + + + + + Care Team Providers + +------+ + | Care Hospital Education Coordinator Name | Role | Phone | [...] NEPHROLOGY [address] | M, DO [address] [place] | | | | | [address] | [place], [place] [address] | | | | | [place], [place] | [place] | | | | | [address] | [address] | | | | | [phone] | | | +--------+ + + + [...] | | | | | [place], [place] | | | | | | [address] | | | | | | | [...] + + | [facility] | [address] | [place] | [phone] | | [facility] | | [address] | | | - LABORATORY | | | | + + + + + | [facility] | [address] | [place] | | | [facility] | | [address], [facility] | | | - LABORATORY | | [...] | | | LAB | | | Japanese, | | | | | | External [...]
--- OUTSIDE RECORDS SUMMARY | ~2020-04-03 | XMS | Encounter Summary ---
Demographics + + + | Address | [address] | | | [place] [address] | + + + | Home Phone | | + + + | Preferred Language | Unknown | + + + | Marital Status | Single | + + + | Quaker Affiliation | Unknown | + + + | Race | Unknown | + + + | Ethnic Group | Unknown | + + + Author + + + | Author | [facility] | | | and [place] | + + + | Organization | [facility] | | | and [place] | + + + | Address | Unknown | + + + | Phone | Unavailable | + + + Support + + + + + | Name | Relationship | Address | Phone | + + + + + | Hi Dawn | ECON | [place] | | | | | [address] | | + + + + + | Atif Delgadillo | ECON | [place] | | | | | [address] | | + + + + + | Caleb Dawn | ECON | Unknown | | + + + + + Care Team Providers + +------+ + | Care Sales Compensation Analyst Name | Role | Phone | [...] | kidney | MD [address] | [address] | | | | | disease, | [place] | [place], [place] | | | | | stage 3 | [place] [address] | [address] | | | | | (moderate) | [place] | [place] | | | | | (HCC) | [place] | [address] Phone: | | | | | Hypertension | [address] | [phone] | | | | | , essential | Phone: | Fax: | | | | | Type 2 | [phone] | [phone] | | | | | diabetes | Fax: | | | | | | mellitus | [phone] | | | | | | with [...] | | [address] | [place], [place] [address] | 3 chronic kidney | | | | [place], [place] | [place], [place] | disease, without | | | | [address] | [address] | long-term current | | | | [phone] | | use of insulin (HCC) | [...] daily for exercise. He states that his Economic Consultant felt that his Hba1c w as too [...] (ELOCON) 0.1 % cream Apply topically Daily. [place]-3 Fatty Acids (FISH OIL) 1200 MG CAPS [...] 02/22/2018 PHOSEX 4.2 10/03/2017 PTHEX 131 02/22/2018 MGB7TMA 6.9 02/22/2018 Lab Results Component Value Date [...] to target his BP < 130/80 mmHg watermaster. 4. Will plan to see him back in 4 mo. at the [facility] at [place], [place]. He will have a CBC, CMP, PO4, HbA1c, iPTH, spot Urine Pro/Cr ratio one week prior to that. : Anoop Moyer MD, PhD Winsome Crowder MD, [place], [place] Matheus Gregory MD, [place] , [place] documented in th is encounter [...] [place] | | | | | | [id number] | | | | | | | [...]
--- OUTSIDE RECORDS SUMMARY | ~2020-04-03 | XMS | Encounter Summary ---
Demographics + + + | Address | [address] | | | [place] [address] | + + + | Home Phone [...] [place] | | | | | [address] | | + + + + + | Atif Delgadillo | ECON | [place], [place] | | | | | [address] | | + + + + + | Caleb Dawn | ECON | Unknown | | + + + + + Care Team Providers + +------+ + | Care Stockroom Supervisor Name | Role | Phone | [...] NEPHROLOGY [address] | M, DO [address] | unspecified type | | | | [address] [facility] | [place], [facility] 100 | diabetes mellitus | | | | [place], [place] | [place], [place] | with renal | | | | [address] | [address] | manifestations, not | | | | [phone] | | stated as | | | [...] 02/12/2014 PHOS 2.8 02/12/2014 PTH 105.1 02/12/2014 WXB9GEI 5.2 02/12/2014 Lab Results Component Value Date WBCEX 8.6 02/12/2014 HGBEX 13.1* 02/12/2014 HCTEX 38.6* 02/12/2014 PLTEX 169 02/12/2014 Lab Results Component Value Date CHOLEX 161 02/12/2014 HDLEX 30.4* 02/12/2014 LDLEX 80 02/12/2014 TRIGEX 253* 02/12/2014 last HbA1c = 5.2% Lab Results Component Value Date CRCLEARANCE 79.0* 02/12/2014 CYH14KBH 287.0 02/12/2014 Assessment: 1. CKD Stage 2, [...] [address] | | | | | | [place], [place] | | | | | | [address] | | | | | | | [...]
--- OUTSIDE RECORDS SUMMARY | ~2020-04-03 | XMS | Encounter Summary ---
Demographics + + + | Address | [address] | | | [place] [address] | + + + | Home Phone | | + + + | Preferred Language | Unknown | + + + | Marital Status | Single | + + + | Advent Affiliation | Unknown | + + + | Race | Unknown | + + + | Ethnic Group | Unknown | + + + Author + + + | Author | [facility] | | | and [place] | + + + | Organization | [facility] | | | and [place] | + + + | Address | Unknown | + + + | Phone | Unavailable | + + + Support + + + + + | Name | Relationship | Address | Phone | + + + + + | Hi Dawn | ECON | [place] | | | | | [address] | | + + + + + | Atif Delgadillo | ECON | [place], [place] | | | | | [address] | | + + + + + | Caleb Dawn | ECON | Unknown | | + + + + + Care Team Providers + +------+ + | Care Rn Case Manager Hospice Name | Role | Phone | + [...] NEPHROLOGY [address] | M, DO [address] | kidney | | | | [address] | [place], [facility] 100 | disease(285.21) | | | | [place], [place] | [place] | (Primary Dx) | | | | [address] | [address] | | | | | [phone] | | | +--------+ + + + [...] | | | | | [facility] | | | | | | [address] | | | | | | | | +--------+---------+ + + + documented as of this encounter Visit Diagnoses + + | Diagnosis | + + | Anemia in chronic kidney disease(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
--- OUTSIDE RECORDS SUMMARY | ~2020-04-03 | XMS | Encounter Summary ---
Demographics + + + | Address | [address] | | | [place] [address] | + + + | Home Phone [...] [place] | | | | | [address] | | + + + + + | Atif Delgadillo | ECON | [place], [place] | | | | | [address] | | + + + + + | Caleb Dawn | ECON | Unknown | | + + + + + Care Team Providers + +------+ + | Care System Safety Engineer Name | Role | Phone | [...] NEPHROLOGY [address] | M, DO [address] | | | | | [address] | [place], [address] | | | | | [place], [place] | [place] | | | | | [address] | [address] | | | | | [phone] | | | +--------+ + + + [...] | | | | [place], [place] | | | | | | [address] | | | | | | | [...]
--- OUTSIDE RECORDS SUMMARY | ~2020-04-03 | XMS | Encounter Summary ---
Demographics + + + | Address | [address] | | | [place] [address] | + + + | Home Phone [...] [place] | | | | | [address] | | + + + + + | Atif Delgadillo | ECON | [place], [place] | | | | | [address] | | + + + + + | Caleb Dawn | ECON | Unknown | | + + + + + Care Team Providers + +------+ + | Care Travel Consultant Name | Role | Phone | [...] NEPHROLOGY [address] | M, DO [address] | | | | | [address] | [place], [address] | | | | | [place], [place] | [place] | | | | | [address] | [address] | | | | | [phone] | | | +--------+ + + + [...] | | | | | [place], [place] | | | | | | [address] | | | | | | | [...] 1.009 | | EXTERNAL | | | [place], | | | LAB | | | [...]
--- OUTSIDE RECORDS SUMMARY | ~2020-04-03 | XMS | Encounter Summary ---
Demographics + + + | Address | [address] | | | [place] [address] | + + + | Home Phone [...] [place] | | | | | [address] | | + + + + + | Atif Delgadillo | ECON | [place], [place] | | | | | [address] | | + + + + + | Caleb Dawn | ECON | Unknown | | + + + + + Care Team Providers + +------+ + | Care Cane Weigher Name | Role | Phone | + +------+ + PCP | Unavailable | + +------+ + Encounter Details +--------+ + + + + | Date | Type | Department | Care Team | Description | +--------+ + + + + | 12/14/ | Hospital | [facility] | William Marcano, | | | 2013 - | Encounter | MED [facility] SUR[facility] | [address] | | | | | [address] | [place] | | | 12/19/ | | [place] [address] | [address] | | | 2013 | | [phone] | | | | | | | Freddy Sanchez | | | | | | DO [address] | | | | | | [address] | | | | | | [place] | | | | | | [address] | | | | | | | [...] Freddy Sanchez DO - 12/19/2013 2:02 [place] [address] Patient Name: SERGEI ESPANA Amy Provider: Freddy Sanchez DO Unit #: [id number] Locat ion: 3ES : 1945 ADMISSION DATE: [...] negative. PROCEDURES 1. EGD, 12/16/2013, Dr. Josef English, bleeding gastric erosions which were biopsied, one [...] spoke to Dr. Hema Garza, his primary job counselor. He is agreeable to co-sign his EPO order so that he can get subcu EPO at day surgery at [facility] as I am not on staff there. The dose will be 10,000 SQ weekly to target his hemoglobin 10-11 mg/dL. He is going to have weekly lab at [facility]. I will have a followup appointm ent with him on 12/23/2013. He is going to have a followup appointment with Dr. Garza on 0 01/06/2014. Also, long-term he had been following with Vascular Surgery Department at [facility] and he is agreeable with following up at the Cardiology department here at [facility]. He has an appointment to see Dr. [...] was 102. Weight at the time of wtjdyeslj=426 kg. CONDITION ON DISCHARGE: Improved. I greatly appreciate Dr. Josef English and Dr. Logan Baca's help with Mr. Espana's ca se. I appreciate Dr. Garza's help with his outpatient EPO injections. DICTATED BY: Freddy Sanchez DO Nephrology JOB #: [id number] EXT JOB #:[id number] cc: MD Josef Zavala MD Suwong Wongsuwan, [...] | | | | | | (moderate) ([facility]), | | | | | | [...] | | | | | | (moderate) ([facility]), | | | | | | [...] | | | | | | | ([facility]), Other and | | | | [...] [place] | | | | | | [address] | | | | | | | [...] [address] | [place] | [phone] | | [facility] | | [address] | | | - LABORATORY | | | | + + + + + | [facility] | [address] | [place] | | | [facility] | | [address] | | | - LABORATORY | [...] + | [facility] | [address] | [place] | [phone] | | [facility] | | [address] | | | - LABORATORY | | | | + + + + + | [facility] | [address] | [place], [place] | | | [facility] | | [address], [facility] | | | - LABORATORY | [...] [address] | [place] | [phone] | | [facility] | | [address] | | | - LABORATORY | | | | + + + + + | [facility] | [address] | [place] | | | [facility] | | [address], [facility] | | | - LABORATORY | [...] + | [facility] | [address] | [place], [place] | [phone] | | [facility] | | [address] | | | - LABORATORY | | | | + + + + + | [facility] | [address] | [place], [place] | | | [facility] | | [address], [facility] | | | - LABORATORY | [...] + | [facility] | [address] | [place] | [phone] | | [facility] | | [address] | | | - LABORATORY | | | | + + + + + | [facility] | [address] | [place] | | | [facility] | | [address] | | | - LABORATORY | [...] | | | | | gm/dL | [facility] | | | | | | MEDICAL | | | | | | CENTER - | | | | | | LABORATORY | | + + + + + + | Hematocrit | 21.1 (L) | 40.0 - 51.0 % | [facility] | | | | | | ST. [...] [address] | [place] | [phone] | | [facility] | | [address] | | | - LABORATORY | | | | + + + + + | [facility] | [address] | [place] | | | [facility] | | [address] | | | - LABORATORY | [...] + | [facility] | [address] | [place], [place] | [phone] | | [facility] | | [address] | | | - LABORATORY | | | | + + + + + | [facility] | [address] | [place], [place] | | | [facility] | | [address], [facility] | | | - LABORATORY | [...] [address] | [place] | [phone] | | [facility] | | [address] | | | - LABORATORY | | | | + + + + + | [facility] | [address] | [place], [place] | | | [facility] | | [address] | | | - LABORATORY | | | | + + + + + NM Nuclear Stress Test (Vasodilator) (12/17/2013 1:07 PM PST) + + | Specimen | + + | | + + + + + | Narrative | Performed At | + + + | [facility] | [place] | | Department [address] [facility], [place] | [facility] | | [ rep ct street1+2] [ rep ct [facility] | | st zip] Signed | - IMAGING | | | | | Patient Name: SERGEI ESPANA | | | Physician: KAILEY : 1945 Age: 68 Sex: M Unit | | | #: [id number] Exam Date: 12/17/13 Location: | | | 3ES 321-1 Report #: [id number] Page: | | | %(RAD)RES..mtdd.print.filter("pg") of %(RAD) | | | RES..mtdd.print.filter("tpg") | | | | | | Accession Number: [id number] | | | REGADENOSON SESTAMIBI STRESS, 12/17/2013 [...] Transcribed | | | Date/Time: 12/17/2013 13:39 Supervisor Building Maintenance: | | | <<Signature on File>> | | | Logan | | | MD Phuong [facility] FASE12/17/13 1556 <Electronically signed by | | | Logan Baca MD, FAC, FACP, FASMariana, FASVENUS> Logan | | | MD Phuong [facility] FASMariana 12/17/13 1307 Supervisor Building Maintenance: Denilson | | | Dbjrnjzxlaidz96/28/14 3919 Freddy Sanchez DO | | | | | + + + + + + + + | Performing | Address | City/State/Zipcode | Phone Number | | Organization | | | | + + + + + | [facility] | [address] | [place] | [phone] | | [facility] | | [address] | | | - IMAGING | | [...] [address] | [place] | [phone] | | [facility] | | [address] | | | - LABORATORY | | | | + + + + + | [facility] | [address] | [place] | | | [facility] | | [address] | | | - LABORATORY | [...] 102 | 70 - 109 mg/dL | [facility] | | | | | | [facility] | | | | | | MEDICAL [...] | 9.3 | 6.0 - 17.0 | [facility] | [...] + | [facility] | [address] | [place], [place] | [phone] | | [facility] | | [address] | | | - LABORATORY | | | | + + + + + | [facility] | [address] | [place], [place] | | | [facility] | | [id number] [place] [address] | | | - LABORATORY | | [...] 2.35 (L) | 4.30 - 5.70 | [facility] [...] PROBLEM IS: | REPEATED, CRITICAL | | [facility] | | | | RESULT-PHONE RESULTS [...] + | [facility] | [address] | [place], [place] | [phone] | | [facility] | | [address] | | | - LABORATORY | | | | + + + + + | [facility] | [address] | [place] | | | [facility] | | [address], [facility] | | | - LABORATORY | [...] | | Duration | | | [facility] | | | | | | MEDICAL | | | | | | CENTER - | | | | | | LABORATORY | | + + + + + + | Urine | 4,170 | mL | [facility] | | | Volume | | | [facility] | | | | | | MEDICAL | | | | | | CENTER - | | | | | | LABORATORY | | + + + + + + | Protein, | <100Comment: 24 HOUR | <100 mg/24hr | [facility] | | | Urine | PROTEIN IS NOT | | [facility] | | | (mg/24hr) | CALCULATED [...] [address] | [place] | [phone] | | [facility] | | [address] | | | - LABORATORY | | | | + + + + + | [facility] | [address] | [place] | | | [facility] | | [address], [facility] | | | - LABORATORY | [...] | HEIGHT | 75 | inches | [facility] | | | (INCHES) | | | [facility] | | | (REF) | | | MEDICAL | | | | | | CENTER - | | | | | | LABORATORY | | + + + + + + | Creatinine, | 1.90Comment: THE | 0.6 - 2.7 | [facility] | | | Urine | REFERENCE RANGES GIVEN | gm/24hr | [facility] | | | (mg/24hr) | ARE INTENDED [...] (L)Comment: | 71 - 135 mL/min | [facility] | | | CLEARANCE | Creatinine Clearance is | | [facility] | | | | calculated using a [...] 39 (L)Comment: For | >60 mL/min/A | [facility] | | | GFR | -Americans, | | [facility] | | | | please multiply the [...] [address] | [place] | [phone] | | [facility] | | [address] | | | - LABORATORY | | | | + + + + + | [facility] | [address] | [place] | | | [facility] | | [address], [facility] | | | - LABORATORY | | | | + + + + + POC Glucose (12/16/2013 10:02 PM PST) + +-------+ + + + | Component | Value | Ref Range | Performed | Pathologist | | | | | At | Signature | + +-------+ + + + | Glucose, | 116 | 79 - 150 md/dL | [facility] [...] + | [facility] | [address] | [place], [place] | [phone] | | [facility] | | [address] | | | - LABORATORY | | | | + + + + + | [facility] | [address] | [place], [place] | | | [facility] | | [id number] [place] [address] | | | - LABORATORY | | [...] + | [facility] | [address] | [place] | [phone] | | [facility] | | [address] | | | - LABORATORY | | | | + + + + + | [facility] | [address] | [place], [place] | | | [facility] | | [address] | | | - LABORATORY | | | | + + + + + Troponin I (12/16/2013 4:32 PM PST) + + + + + + | Component | Value | Ref Range | Performed | Pathologist | | | | | At | Signature | + + + + + + | Troponin I | 0.01Comment: Reference | <0.06 ng/mL | [facility] | | | | Ranges: | | [facility] | | | | 0.00-0.06 = NORMAL [...] The | | | | | | [employer] | | | | | [...] + | [facility] | [address] | [place], [place] | [phone] | | [facility] | | [address] | | | - LABORATORY | | | | + + + + + | [facility] | [address] | [place], [place] | | | [facility] | | [address] [place] [address] | | | - LABORATORY | | [...] + | [facility] | [address] | [place] | [phone] | | [facility] | | [address] | | | - LABORATORY | | | | + + + + + | [facility] | [address] | [place], [place] | | | [facility] | | [address] [place] [address] | | | - LABORATORY | | [...] | | | BIOPSY | | | [facility] | | | UREASE TEST | | [...] + | [facility] | [address] | [place] | [phone] | | [facility] | | [address] | | | - LABORATORY | | | | + + + + + | [facility] | [address] | [place] | | | [facility] | | [address] | | | - LABORATORY | [...] | | | | | mg/dL | [facility] | | | | | | [...] + | [facility] | [address] | [place], [place] | [phone] | | [facility] | | [address] | | | - LABORATORY | | | | + + + + + | [facility] | [address] | [place], [place] | | | [facility] | | [facility] | | | - LABORATORY | [...] + | [facility] | [address] | [place] | [phone] | | [facility] | | [address] | | | - LABORATORY | | | | + + + + + | [facility] | [address] | [place] | | | [facility] | | [address], [facility] | | | - LABORATORY | [...] | | POC | | | [facility] | | | | | | [...] + | [facility] | [address] | [place] | [phone] | | [facility] | | [address] | | | - LABORATORY | | | | + + + + + | [facility] | [address] | [place] | | | [facility] | | [address] | | | - LABORATORY | | | | + + + + + ECHO Complete (12/16/2013 6:50 AM PST) + + | Specimen | + + | | + + + + + | Narrative | Performed At | + + + | [facility] | [place] | | Department [address] [place], [place] [address] | [facility] | | [ rep ct street1+2] [ rep [facility] | | st zip] Signed | - IMAGING | | | | | Patient Name: SERGEI ESPANA | | | Physician: KAILEY : 1945 Age: 68 Sex: M Unit | | | #: [id number] Exam Date: 12/15/13 Location: | | | [facility] 454-1 Report #: [id number] Page: | | | %(RAD)RES..mtdd.print.filter("pg") of %(RAD) | | | RES..mtdd.print.filter("tpg") | | | | | | Accession Number: [id number] | | | E C H O C A R D I O G R A P H Y R E P O R T | | | HEIGHT: 75" WEIGHT: 275# | | | DIGITAL LIBRARIAN: GINGER REFERRING DR: CHUCK ERWIN DR: | [...] Transcribed Date/Time: 12/16/2013 | | | 07:14 Supervisor Building Maintenance: <<Signature on | | | File>> | | | Logan | | | MD hPuong [facility] FASE12/16/13 0813 <Electronically signed by | | | Logan Baca MD, FAC, FACP, FASE, FASNC> [place] | | | MD Phuong [facility] FASE 12/16/13 0650 Supervisor Building Maintenance: Denilson | | | Zhdrnpxjxtglh92/27/1414 Freddy Sanchez DO | | | | | + + + + + + + + | Performing | Address | City/State/Zipcode | Phone Number | | Organization | | | | + + + + + | [facility] | [address] | [place] | [phone] | | [facility] | | [address] | | | - IMAGING | | [...] 39 (L)Comment: For | >60 mL/min/A | [facility] | | | GFR | -Americans, | [...] 39.1 (H) | 12 - 20 | [facility] | | | ine Ratio | | | [facility] | | | | | | MEDICAL | | | | | | CENTER - | | | | | | LABORATORY | | + + + + + + | Na | 145 | 136 - 149 mEq/L | [facility] [...] | 9.6 | 6.0 - 17.0 | [facility] | [...] + | [facility] | [address] | [place], [place] | [phone] | | [facility] | | [address] | | | - LABORATORY | | | | + + + + + | [facility] | [address] | [place], [place] | | | [facility] | | [address] [place] [address] | | | - LABORATORY | | [...] The | | | | | | [employer] | | | | | [...] + | [facility] | [address] | [place] | [phone] | | [facility] | | [address] | | | - LABORATORY | | | | + + + + + | [facility] | [address] | [place], [place] | | | [facility] | | [address], [facility] | | | - LABORATORY | [...] (LL)Comment: @VALUE | 13.5 - 18.0 | [facility] | | | | CONSISTENT WITH PREVIOUS | gm/dL | [facility] | | | | RESULTS | | MEDICAL | | | | | | CENTER - | | | | | | LABORATORY | | + + + + + + | Hematocrit | 21.2 (L) | 40.0 - 51.0 % | [facility] | | | | | [...] [address] | [place] | [phone] | | [facility] | | [address] | | | - LABORATORY | | | | + + + + + | [facility] | [address] | [place] | | | [facility] | | [address], [facility] | | | - LABORATORY | | | | + + + + + POC Glucose (12/15/2013 9:30 PM PST) + +-------+ + + + | Component | Value | Ref Range | Performed | Pathologist | | | | | At | Signature | + +-------+ + + + | Glucose, | 100 | 79 - 150 md/dL | [facility] [...] + | [facility] | [address] | [place], [place] | [phone] | | [facility] | | [address] | | | - LABORATORY | | | | + + + + + | [facility] | [address] | [place], [place] | | | [facility] | | [id number] [place] [address] | | | - LABORATORY | | [...] BLD | Comment: PHONED REPORT | | [facility] | | | | ZOE NICOLE [...] + | [facility] | [address] | [place], [place] | [phone] | | [facility] | | [address] | | | - LABORATORY | | | | + + + + + | [facility] | [address] | [place], [place] | | | [facility] | | [address] | | | - LABORATORY | [...] | | POC | | | [facility] | | | | | | [...] [address] | [place] | [phone] | | [facility] | | [address] | | | - LABORATORY | | | | + + + + + | [facility] | [address] | [place], [place] | | | [facility] | | [address], [facility] | | | - LABORATORY | | | | + + + + + XR Chest AP Portable (12/15/2013 12:53 PM PST) + + | Specimen | + + | | + + + + + | Narrative | Performed At | + + + | [facility] | [place] | | Department [address] , [place] | [facility] | | [ rep ct street1+2] [ rep [facility] | | st zip] Signed | - IMAGING | | | | | Patient Name: SERGEI ESPANA | | | Physician: KAILEY : 1945 Age: 68 Sex: M Unit | | | #: [id number] Exam Date: 12/14/13 Location: | | | [address] [place] [address]1 Report #: [id number] Page: | | | %(RAD)RES..mtdd.print.filter("pg") of %(RAD) | | | RES..mtdd.print.filter("tpg") | | | | | | Accession Number: [id number] | | | CHEST PORTABLE, 12/15/2013 CLINICAL [...] Transcribed Date/Time: 12/15/2013 15:27 | | | Supervisor Building Maintenance: <<Signature on File>> | | | | | | Kai Gomez MD12/15/13 1612 <Electronically signed by Kai Gomez | | | MD> Kai Gomez MD 12/15/13 1253 Supervisor Building Maintenance: | | | [employer] Jqgmvhuxtqszk25/26/14 1527 Freddy Sanchez, | | | DO | | + + + + + + + + | Performing | Address | City/State/Zipcode | Phone Number | | Organization | | | | + + + + + | [facility] | [address] | [place] | [phone] | | [facility] | | [address] | | | - IMAGING | | [...] + | [facility] | [address] | [place] | [phone] | | [facility] | | [address] | | | - LABORATORY | | | | + + + + + | [facility] | [address] | [place] | | | [facility] | | [address], [facility] | | | - LABORATORY | [...] 24 | 22 - 269 IU/L | [facility] | | | | | [...] | [facility] | | | | Desiree Access | | MEDICAL | | | [...] The | | | | | | [employer] | | | | | [...] + | [facility] | [address] | [place] | [phone] | | [facility] | | [address] | | | - LABORATORY | | | | + + + + + | [facility] | [address] | [place], [place] | | | [facility] | | [address] [place] [address] | | | - LABORATORY | | | | + + + + + Renal Function Panel (12/15/2013 5:57 AM PST) + + + + + + | Component | Value | Ref Range | Performed | Pathologist | | | | | At | Signature | + + + + + + | Glucose | 87 | 70 - 109 mg/dL | [facility] | | | | | [...] @VALUE | 7 - 18 mg/dL | [facility] | | | | CONSISTENT WITH PREVIOUS [...] Ratio | CONSISTENT WITH PREVIOUS | | [facility] | | | | RESULTS | [...] + | [facility] | [address] | [place] | [phone] | | [facility] | | [address] | | | - LABORATORY | | | | + + + + + | [facility] | [address] | [place], [place] | | | [facility] | | [id number] [place] [address] | | | - LABORATORY | | | | + + + + + CBC no Differential (12/15/2013 5:57 AM PST) + + + [...] + | [facility] | [address] | [place], [place] | [phone] | | [facility] | | [address] | | | - LABORATORY | | | | + + + + + | [facility] | [address] | [place] | | | [facility] | | [address] [place] [address] | | | - LABORATORY | | [...] + | [facility] | [address] | [place] | [phone] | | [facility] | | [address] | | | - LABORATORY | | | | + + + + + | [facility] | [address] | [place] | | | [facility] | | [address], [facility] | | | - LABORATORY | [...] | | | POC | | | [facility] | | | | | | [...] + | [facility] | [address] | [place] | [phone] | | [facility] | | [address] | | | - LABORATORY | | | | + + + + + | [facility] | [address] | [place] | | | [facility] | | [address] | | | - LABORATORY | [...] | | | | | M/uL | [facility] | | | | | [...] | | CONSISTENT WITH | | [facility] | | | [...] | | | Basophils | | | [facility] | | | | | | MEDICAL | | | | | | CENTER - | | | | | | LABORATORY | | + + + + + + | SUSPECTED | 1 (H)Comment: TEST | | [facility] | | | PROBLEM IS: | REPEATED, CRITICAL | | . [facility] | | | | RESULT-PHONE RESULTS [...] + | [facility] | [address] | [place] | [phone] | | [facility] | | [address] | | | - LABORATORY | | | | + + + + + | [facility] | [address] | [place], [place] | | | [facility] | | [id number] [place] [address] | | | - LABORATORY | | [...] | [facility] | | | | [facility] | | MEDICAL | | | [...] The | | | | | | [employer] | | | | | [...] + + | Performing | Address | City/State[facility] | Phone Number | | Organization | | | | + + + + + | [facility] | [address] | [place] | [phone] | | [facility] | | [address] | | | - LABORATORY | | | | + + + + + | [facility] | [address] | [place], [place] | | | [facility] | | [id number] | | | - LABORATORY | [...] @VALUE | 7 - 18 mg/dL | [facility] | | | | CONSISTENT WITH PREVIOUS | | [facility] | | | | RESULTS | | MEDICAL | | | | | | CENTER - | | | | | | LABORATORY | | + + + + + + | Creatinine | 2.71 (H) | 0.60 - 1.30 | [facility] | | | | | mg/dL | [facility] | | | | | | MEDICAL | | | | | | CENTER - | | | | | | LABORATORY | | + + + + + + | Estimated | 23 (L)Comment: For | >60 mL/min/A | [facility] | | | GFR | -Americans, | | [facility] | | | | please multiply the [...] 137 | 136 - 149 mEq/L | [facility] [...] + | [facility] | [address] | [place], [place] | [phone] | | [facility] | | [address] | | | - LABORATORY | | | | + + + + + | [facility] | [address] | [place], [place] | | | [facility] | | [address], [facility] | | | - LABORATORY | [...] [address] | [place] | [phone] | | [facility] | | [address] | | | - LABORATORY | | [...] | CONSISTENT WITH PREVIOUS | gm/dL | [facility] | | | | RESULTS | [...] + | [facility] | [address] | [place] | [phone] | | [facility] | | [address] | | | - LABORATORY | | | | + + + + + | [facility] | [address] | [place] | | | [facility] | | [id number] | | | - LABORATORY | [...] | | POC | | | [facility] | | | | | | MEDICAL | | | | | | CENTER - | | | | | | LABORATORY | | + +---------+ + + + + + | Specimen | + + | | + + + + + + + | Performing | Address | City/[facility]/Zipcode | Phone Number | | Organization | | | | + + + + + | [facility] | [address] | [place], [place] | [phone] | | [facility] | | [address] | | | - LABORATORY | | | | + + + + + | [facility] | [address] | [place], [place] | | | [facility] | | [address], [facility] | | | - LABORATORY | [...] + | [facility] | [address] | [place] | [phone] | | [facility] | | [address] | | | - LABORATORY | | | | + + + + + | [facility] | [address] | [place] | | | [facility] | | [address] | | | - LABORATORY | [...] [address] | [place] | [phone] | | [facility] | | [address] | | | - LABORATORY | | | | + + + + + | [facility] | [address] | [place] | | | [facility] | | [address] | | | - LABORATORY | [...] + + + | UNIT # | [id number] | | [facility] | | | | [...] + | [facility] | [address] | [place] | [phone] | | [facility] | | [address] | | | - LABORATORY | | | | + + + + + | [facility] | [address] | [place], [place] | | | [facility] | | [address], [facility] | | | - LABORATORY | | | | + + + + + Product: PRBMarylu (12/14/2013 7:56 AM PST) + + + [...] + + + | UNIT # | [id number] | | [facility] | | | | [...] | Unit Status | TRANSFUSED | | [facility] | | | | | [...] [address] | [place] | [phone] | | [facility] | | [address] | | | - LABORATORY | | | | + + + + + | [facility] | [address] | [place] | | | [facility] | | [address] | | | - LABORATORY | [...] | | Code | | | [facility] | | | | | | MEDICAL | | | | | | CENTER - | | | | | | LABORATORY | | + + + + + + | UNIT # | [id number] | | [facility] | | | | [...] | | | | | | [facility] | | | | | | MEDICAL [...] + | [facility] | [address] | [place], [place] | [phone] | | [facility] | | [address] | | | - LABORATORY | | | | + + + + + | [facility] | [address] | [place], [place] | | | [facility] | | [address] | | | - LABORATORY | | | | + + + + + Product: PARTH (12/14/2013 7:56 AM PST) + + + [...] + + + | UNIT # | [id number] | | [facility] | | | | [...] | Unit Status | TRANSFUSED | | [facility] | | | | | | ST. [...] [address] | [place] | [phone] | | [facility] | | [address] | | | - LABORATORY | | | | + + + + + | [facility] | [address] | [place] | | | [facility] | | [address] | | | - LABORATORY | | | | + + + + + Product: PRB (12/14/2013 7:56 AM PST) + + + + + + | Component | Value | Ref Range | Performed | Pathologist | | | | | At | Signature | + + + + + + | Product | PACKED CELLS | | [facility] | | | Code | | | [facility] | | | | | | MEDICAL | | | | | | CENTER - | | | | | | LABORATORY | | + + + + + + | UNIT # | [id number] | | [facility] | | | | [...] + | [facility] | [address] | [place], [place] | [phone] | | [facility] | | [address] | | | - LABORATORY | | | | + + + + + | [facility] | [address] | [place], [place] | | | [facility] | | [address] | | | - LABORATORY | [...] 94.9 | 83.0 - 101.0 fL | [facility] [...] | | | | | | [facility] | | | | | | MEDICAL [...] + | [facility] | [address] | [place] | [phone] | | [facility] | | [address] | | | - LABORATORY | | | | + + + + + | [facility] | [address] | [place], [place] | | | [facility] | | [address] | | | - LABORATORY | | | | + + + + + Iron Profile (12/14/2013 6:44 AM PST) + + + + + + | Component | Value | Ref Range | Performed | Pathologist | | | | | At | Signature | + + + + + + | Iron | 108 | 50 - 160 ug/dL | [facility] | | | | [...] | [facility] | | | | [facility] | | MEDICAL | | | [...] + | [facility] | [address] | [place] | [phone] | | [facility] | | [address] | | | - LABORATORY | | | | + + + + + | [facility] | [address] | [place] | | | [facility] | | [address] | | | - LABORATORY | [...] + | [facility] | [address] | [place] | [phone] | | [facility] | | [address] | | | - LABORATORY | | | | + + + + + | [facility] | [address] | [place], [place] | | | [facility] | | [address] | | | - LABORATORY | | | | + + + + + Troponin I (12/14/2013 6:44 AM PST) + + + + + + | Component | Value | Ref Range | Performed | Pathologist | | | | | At | Signature | + + + + + + | Troponin I | <0.01Comment: Reference | <0.06 ng/mL | [facility] | | | | Ranges: | | [...] The | | | | | | [employer] | | | | | [...] + | [facility] | [address] | [place], [place] | [phone] | | [facility] | | [address] | | | - LABORATORY | | | | + + + + + | [facility] | [address] | [place], [place] | | | [facility] | | [address] [place] [address] | | | - LABORATORY | | [...] + | [facility] | [address] | [place] | [phone] | | [facility] | | [address] | | | - LABORATORY | | | | + + + + + | [facility] | [address] | [place] | | | [facility] | | [address], [facility] | | | - LABORATORY | [...] | RANGE FOR RANDOM URINE | | [facility] | | | Random | SPECIMEN | [...] + | [facility] | [address] | [place], [place] | [phone] | | [facility] | | [address] | | | - LABORATORY | | | | + + + + + | [facility] | [address] | [place], [place] | | | [facility] | | [address], [facility] | | | - LABORATORY | [...] | | n, Urine, | | | [facility] | | | Random | | [...] + | [facility] | [address] | [place] | [phone] | | [facility] | | [address] | | | - LABORATORY | | | | + + + + + | [facility] | [address] | [place], [place] | | | [facility] | | [id number] | | | - LABORATORY | [...] | RANGE FOR RANDOM URINE | | [facility] | | | Random | SPECIMEN [...] [address] | [place] | [phone] | | [facility] | | [address] | | | - LABORATORY | | | | + + + + + | [facility] | [address] | [place] | | | [facility] | | [address] | | | - LABORATORY | | | | + + + + + Osmolality, Urine (12/13/2013 10:43 PM PST) + +-------+ + + + | Component | Value | Ref Range | Performed | Pathologist | | | | | At | Signature | + +-------+ + + + | OSMO URINE | 492 | 300 - 1,000 | [facility] | | | | | MOSM/KG | [facility] | | | | [...] + | [facility] | [address] | [place], [place] | [phone] | | [facility] | | [address] | | | - LABORATORY | | | | + + + + + | [facility] | [address] | [place], [place] | | | [facility] | | [address], [facility] | | | - LABORATORY | [...] | [facility] | | | | [facility] | | MEDICAL | | | [...] + | [facility] | [address] | [place], [place] | [phone] | | [facility] | | [address] | | | - LABORATORY | | | | + + + + + | [facility] | [address] | [place], [place] | | | [facility] | | [address], [facility] | | | - LABORATORY | [...] | | | A1c | | | [facility] | | [...] [address] | [place] | [phone] | | [facility] | | [address] | | | - LABORATORY | | | | + + + + + | [facility] | [address] | [place] | | | [facility] | | [address] | | | - LABORATORY | [...] | | | [facility] | | | [facility] | | | L ? | | | MEDICAL | | | | | | CENTER - | | | | | | LABORATORY | | + + + + + + | WBC | 11.9 (H) | 4.0 - 11.0 K/uL | [facility] | | | | | [...] | | | | | gm/dL | . [facility] | | | | [...] + | [facility] | [address] | [place], [place] | [phone] | | [facility] | | [address] | | | - LABORATORY | | | | + + + + + | [facility] | [address] | [place], [place] | | | [facility] | | [address], [facility] | | | - LABORATORY | [...] + + + | BUN | 103 ()Comment: @VALUE | 7 - 18 mg/dL [...] 19 (L)Comment: For | >60 mL/min/A | [facility] | | | GFR | -Americans, | [...] 32.2 (H) | 12 - 20 | [facility] | | | ine Ratio | | | [facility] | | | | | | MEDICAL | | | | | | CENTER - | | | | | | LABORATORY | | + + + + + + | Na | 138 | 136 - 149 mEq/L | [facility] [...] + | [facility] | [address] | [place], [place] | [phone] | | [facility] | | [address] | | | - LABORATORY | | | | + + + + + | [facility] | [address] | [place] | | | [facility] | | [address] [place] [address] | | | - LABORATORY | | [...] + | [facility] | [address] | [place] | [phone] | | [facility] | | [address] | | | - LABORATORY | | | | + + + + + | [facility] | [address] | [place], [place] | | | [facility] | | [address] | | | - LABORATORY | | | | + + + + + documented in this encounter Visit Diagnoses Not on filedocumented in this encounter
--- OUTSIDE RECORDS SUMMARY | ~2020-04-03 | XMS | Encounter Summary ---
Demographics + + + | Address | [address] | | | [place] [address] | + + + | Home Phone [...] [place] | | | | | [address] | | + + + + + | Atif Delgadillo | ECON | [place], [place] | | | | | [address] | | + + + + + | Caleb Dawn | ECON | Unknown | | + + + + + Care Team Providers + +------+ + | Care Cisco Consultant Name | Role | Phone | [...] NEPHROLOGY [address] | M, DO [address] | disease, stage III | | | | [address] | [place], [place] [address] | (moderate) (Primary | | | | [place], [place] | [place], [place] | Dx) | | | | [address] | [address] | | | | | [phone] | | | +--------+ + + + [...] | | | | | [place], [place] | | | | | | [address] | | | | | | | | +--------+---------+ + + + documented as of this encounter Visit Diagnoses + + | Diagnosis | + + | Chronic kidney disease, stage III (moderate) (HCC) - Primary Chronic kidney disease, | | Stage III (moderate) | + + documented in this encounter"
--- OUTSIDE RECORDS SUMMARY | ~2020-04-03 | XMS | Encounter Summary ---
Demographics + + + | Address | [address] | | | [place] [address] | + + + | Home Phone [...] [place] | | | | | [address] | | + + + + + | Atif Delgadillo | ECON | [place] | | | | | [address] | | + + + + + | Caleb Dawn | ECON | Unknown | | + + + + + Care Team Providers + +------+ + | Care Diversified Crops Supervisor Name | Role | Phone | + +------+ + | Anoop Moyer MD | PCP | | + +------+ + Encounter Details +--------+ + + + + | Date | Type | Department | Care Team | Description | +--------+ + + + + | 03/31/ | Documentati | [facility] [place] | Freddy Sanchez | | | 2019 | on | NEPHROLOGY [address] | M, DO [address] | | | | | [address] | [place], [place] [address] | | | | | [place], [place] | [place], [place] | | | | | [address] | [address] | | | | | [phone] | | | +--------+ + + + [...] documented as of this encounter Progress Notes Freddy Sanchez, - 03/31/2020 2:51 PM PDTRENAL I received a FAX from Winsome Mai, WELFARE DIRECTOR, [facility], [facility], [facility]. Apparently, Steve was seen for increased edema and increased BP to 166/90, on his home readings. Also, apparthomas chang, he has not diuresed much on lasix 80 mg, BID. His repeat Sk+ = 3.6 mEq/L and Scr 1.95 mg/dl. I called Steve and asked him to increase his Lasix to 160 mg, BID. Also, I asked him to increase the Losartan to 50 mg, Q day. I E-Rx'd these to [facility],his mail order Pharmacy. Apparently, he has an Appt. with Dr. Moyer and will continue check his weight and BP paolo ly. Will F/U with him at the CKD Clinic at [facility] [place] in 4 months, or sooner, if fransisco paz. : Winsome Mai, [facility] Anoop Moyer MD documented in this encounter Plan of Treatment +--------+---------+ + + + | Date | Type | Specialty | Care Team | Description | +--------+---------+ + + + | 05/20/ | Office | Cardiology | Yumiko Del Valle, | | 2019 | Visit | | MD Lupe TYLER | | | | | | [place] | | | | | | [address] | | | | | | | | +--------+---------+ + + + documented as of this encounter Visit Diagnoses Not on filedocumented in this encounter"
--- OUTSIDE RECORDS SUMMARY | ~2020-04-03 | XMS | Encounter Summary ---
Demographics + + + | Address | [address] | | | [place] [address] | + + + | Home Phone [...] [place] | | | | | [address] | | + + + + + | Atif Delgadillo | ECON | [place], [place] | | | | | [address] | | + + + + + | Caleb Dawn | ECON | Unknown | | + + + + + Care Team Providers + +------+ + | Care Warehouse Consultant Name | Role | Phone | [...] disease, stage III | | | | [facility] [address] | | (moderate); Type II | | | | [place] | | or unspecified type | | | | [address] | | diabetes mellitus | | | | [phone] | | with renal | | | [...] | | | | | [place], [place] | | | | | | [address] | | | | | | | | +--------+---------+ + + + documented as of this encounter Visit Diagnoses + + | Diagnosis | + + | Chronic kidney disease, stage III (moderate) (HCC) Chronic kidney disease, Stage III | | (moderate) | + + | Type II or unspecified type diabetes mellitus with renal manifestations, not stated as | | uncontrolled(250.40) ([facility]) Type II or unspecified type diabetes [...]
--- OUTSIDE RECORDS SUMMARY | ~2020-04-03 | XMS | Encounter Summary ---
Demographics + + + | Address | [address] | | | [place] [address] | + + + | Home Phone | | + + + | Preferred Language | Unknown | + + + | Marital Status | Single | + + + | Moravian Affiliation | Unknown | + + + [...] [place] | | | | | [address] | | + + + + + | Atif Delgadillo | ECON | [place], [place] | | | | | [address] | | + + + + + | Caleb Dawn | ECON | Unknown | | + + + + + Care Team Providers + +------+ + | Care Statement Clerk Name | Role | Phone | [...] + + | 01/03/ | Office | [facility] | Logan Baca, | CHF (congestive | | 2013 | Visit | CARDIOLOGY [address] | [address] | heart failure) ([facility]) | | | | [place], | [place], | (Primary Dx); | | | | [place] [address] | [place] [address] | Hypertension | | | | [phone] | [phone] | | | | | | | [...] and hypertension. Patient was recently admitted to [place] [facility] with a profound anemia with hemoglobin of [...] Education: N/A Occupational History [employer], [place], [place] Social History Main Topics Smoking status: [...] fraction A. Patient was recently admitted to [place] with a profound anemia with hemoglobin of [...] 2. After discussion with Dr. Deluna, his emu farmer, we decided to put him back on furo semide 40 mg twice a day to treat leg swelling and to lower the blood pressure. 3.Check blood pressure x 2 weeks. Check minichem and CBC in 1 week. 4. Followup in 2-4 weeks. Portions of this report were transcribed using voice recognition software. Every effort wa s made to ensure accuracy; however, inadvertent computerized drug regulatory affairs specialist errors may be pre sent. documented in this encounter Plan of Treatment +--------+---------+ + + + | Date | Type | Specialty | Care Team | Description | +--------+---------+ + + + | 05/20/ | Office | Cardiology | Yumiko Del Valle, | | | 2019 | Visit | | MD Lupe TYLER | | | | | | [place] | | | | | | [id number] | | | | | | | | +--------+---------+ + + + + +------+--------+ + + | Name | Type | Priori | Associated Diagnoses | Order Schedule | | | | ty | | | + +------+--------+ + + | Basic Metabolic | Lab | Routin | CHF (congestive | Expected: | | Panel | | e | heart failure) ([facility]) | 01/10/2014, Expires: | | | | | | 01/03/2015 | + +------+--------+ + + | CBC with | Lab | Routin | CHF (congestive | Expected: | | Differential | | e | heart failure) ([facility]) | 01/10/2014, Expires: | | [...]
--- OUTSIDE RECORDS SUMMARY | ~2020-04-03 | XMS | Encounter Summary ---
Demographics + + + | Address | [address] | | | [place] [address] | + + + | Home Phone [...] [place] | | | | | [address] | | + + + + + | Atif Delgadillo | ECON | [place], [place] | | | | | [address] | | + + + + + | Caleb Dawn | ECON | Unknown | | + + + + + Care Team Providers + +------+ + | Care Arborist Representative Name | Role | Phone | + +------+ + PCP | Unavailable | + +------+ + Encounter Details +--------+ + + + + | Date | Type | Department | Care Team | Description | +--------+ + + + + | 02/01/ | Hospital | [facility] | | | | 2006 - | Encounter | MED CTR XRAY [address] | | | | | | [place] | | | | 02/17/ | | [place] [address] | | | | 2006 | | [phone] | | | +--------+ + + + [...] [place] | | | | | | [id number] | | | | | | | | +--------+---------+ + + + documented as of this encounter Visit Diagnoses Not on filedocumented in this encounter"
--- OUTSIDE RECORDS SUMMARY | ~2020-04-03 | XMS | Encounter Summary ---
Demographics + + + | Address | [address] | | | [place] [address] | + + + | Home Phone [...] [place] | | | | | [address] | | + + + + + | Atif Delgadillo | ECON | [place] | | | | | [address] | | + + + + + | Caleb Dawn | ECON | Unknown | | + + + + + Care Team Providers + +------+ + | Care Factory Helper Name | Role | Phone | [...] NEPHROLOGY [address] | M, DO [address] | | | | | [address] [facility] | [place], [address] | | | | | [place], [place] | [place], [place] | | | | | [address] | [address] | | | | | [phone] | | | +--------+ + + + [...] [place] | | | | | | [address] | | | | | | | | +--------+---------+ + + + documented as of this encounter Procedures + +--------+ + + + | Procedure Name | Priori | Date/Time | Associated Diagnosis | Comments | | | ty | | | | + +--------+ + + + | EXTERNAL LAB: BUN | Routin | 05/02/2019 | | Results [...]
--- OUTSIDE RECORDS SUMMARY | ~2020-04-03 | XMS | Encounter Summary ---
Demographics + + + | Address | [address] | | | [place] [address] | + + + | Home Phone | | + + + | Preferred Language | Unknown | + + + | Marital Status | Single | + + + | Taoism Affiliation | Unknown | + + + | Race | Unknown | + + + | Ethnic Group | Unknown | + + + Author + + + | Author | [facility] | | | and [place] | + + + | Organization | [facility] | | | and [place] | + + + | Address | Unknown | + + + | Phone | Unavailable | + + + Support + + + + + | Name | Relationship | Address | Phone | + + + + + | Hi Dawn | ECON | [place] | | | | | [address] | | + + + + + | Atif Delgadillo | ECON | [place], [place] | | | | | [address] | | + + + + + | Caleb Dawn | ECON | Unknown | | + + + + + Care Team Providers + +------+ + | Care Vegetable Grader Name | Role | Phone | [...] NEPHROLOGY [address] | M, DO [address] | | | | | [address] | [place], [place] [address] | | | | | [place], [place] | [place] | | | | | [address] | [address] | | | | | [phone] | | | +--------+ + + + [...] | | | | | [place], [place] | | | | | | [address] | | | | | | | [...] | 1.014 | | | | | [place], | | | | | | External [...] | | | LAB | | | [place], | | | | | | External [...]
--- OUTSIDE RECORDS SUMMARY | ~2020-04-03 | XMS | Encounter Summary ---
Demographics + + + | Address | [address] | | | [place] [address] | + + + | Home Phone [...] [place], [place] | | | | | [address] | | + + + + + | Caleb Dawn | ECON | Unknown | | + + + + + Care Team Providers + +------+ + | Care E Learning Coordinator Name | Role | Phone | [...] + + | 11/18/ | Telephone | [facility] | Timothy, | Appointment | | 2015 | | CARDIOLOGY [address] | ELLA [address] | | | | | [place], | [place], | | | | | [place] [address] | [place] [address] | | | | | [phone] | [phone] | | | | | | | [...] [place] | | | | | | [address] | | | | | | | | +--------+---------+ + + + documented as of this encounter Visit Diagnoses Not on filedocumented in this encounter"
--- OUTSIDE RECORDS SUMMARY | ~2020-04-03 | XMS | Encounter Summary ---
Demographics + + + | Address | [address] | | | [place] [address] | + + + | Home Phone [...] [place] | | | | | [address] | | + + + + + | Atif Delgadillo | ECON | [place], [place] | | | | | [address] | | + + + + + | Caleb Dawn | ECON | Unknown | | + + + + + Care Team Providers + +------+ + | Care Corporate Safety Director Name | Role | Phone | [...] | kidney | MD [address] | [address] | | | | | disease, | [place] | [place], [place] | | | | | stage 3 | [place] [address] | [address] [place] | | | | | (moderate) | [place], | [place] | | | | | (HCC) | [place] | [address] Phone: | | | | | Hypertension | [address] | [phone] | | | | | , essential | Phone: | Fax: | | | | | Type 2 | [phone] | [phone] | | | | | diabetes | Fax: | | | | | | mellitus | [phone] | | | | | | with [...] | | [address] | [place], [place] [address] | (moderate) (Primary | | | | [place] | [place] | Dx); Type 2 diabetes | | | | [address] | [address] | mellitus with stage | | | | [phone] | | 3 chronic kidney | | [...] he original. Subjective: NEPHROLOGY Patient ID: Steve aTnner is a 71 y.o. male. HPI Comments: [...] (ELOCON) 0.1 % cream Apply topically Daily. [place]-3 Fatty Acids (FISH OIL) 300 MG CAPS [...] 06/01/2016 PHOSEX 4.0 10/22/2015 PTHEX 129* 10/22/2015 LQI7ZIX 5.9 06/01/2016 Lab Results Component Value Date [...] 6 mo. at the CKD Clinic at [facility] He will hav e a CBC, CMP, [...] [place] | | | | | | [id number] | | | | | | | [...]
--- OUTSIDE RECORDS SUMMARY | ~2020-04-03 | XMS | Encounter Summary ---
Demographics + + + | Address | [address] | | | [place] [address] | + + + | Home Phone [...] [place] | | | | | [address] | | + + + + + | Atif Delgadillo | ECON | [place] | | | | | [address] | | + + + + + | Caleb Dawn | ECON | Unknown | | + + + + + Care Team Providers + +------+ + | Care Child And Family Services Specialist Name | Role | Phone | + +------+ + PCP | Unavailable | + +------+ + Encounter Details +--------+ + + + + | Date | Type | Department | Care Team | Description | +--------+ + + + + | 11/19/ | Orders Only | [facility] | Yovana Garrison, | | | 2013 | | CARDIOLOGY [address] | RN | | | | | [place], | | | | | | [place] [address] | | | | | | [phone] | | | +--------+ + + + [...] [place] | | | | | | [address] | | | | | | | | +--------+---------+ + + + documented as of this encounter Visit Diagnoses Not on filedocumented in this encounter"
--- OUTSIDE RECORDS SUMMARY | ~2020-04-03 | XMS | Encounter Summary ---
Demographics + + + | Address | [address] | | | [place] [address] | + + + | Home Phone [...] [place] | | | | | [address] | | + + + + + | Atif Delgadillo | ECON | [place], [place] | | | | | [address] | | + + + + + | Caleb Dawn | ECON | Unknown | | + + + + + Care Team Providers + +------+ + | Care Construction Foreman Name | Role | Phone | + [...] + + | 10/02/ | Telephone | [facility] | Freddy Sanchez | Lab Order | | 2016 | | NEPHROLOGY [address] | M, DO [address] | | | | | [address] [facility] | [place], [facility] 100 | | | | | [place], [place] | [place], [place] | | | | | [address] | [address] | | | | | [phone] | | | +--------+ + + + [...] [place] | | | | | | [address] | | | | | | | [...]
--- OUTSIDE RECORDS SUMMARY | ~2020-04-03 | XMS | Encounter Summary ---
Demographics + + + | Address | [address] | | | [place] [address] | + + + | Home Phone [...] [place] | | | | | [address] | | + + + + + | Atif Delgadillo | ECON | [place], [place] | | | | | [address] | | + + + + + | Caleb Dawn | ECON | Unknown | | + + + + + Care Team Providers + +------+ + | Care Director Special Education Name | Role | Phone | + [...] + + | 11/18/ | Telephone | [facility] | Timothy, | Appointment | | 2015 | | CARDIOLOGY [address] | ELLA Morton [address] | | | | | [place], | [place], | | | | | [place] [address] | [place] [address] | | | | | [phone] | [phone] | | | | | | | [...] [place] | | | | | | [address] | | | | | | | | +--------+---------+ + + + documented as of this encounter Visit Diagnoses Not on filedocumented in this encounter"
--- OUTSIDE RECORDS SUMMARY | ~2020-04-03 | XMS | Encounter Summary ---
Demographics + + + | Address | [address] | | | [place] [address] | + + + | Home Phone [...] [place] | | | | | [address] | | + + + + + | Atif Delgadillo | ECON | [place], [place] | | | | | [address] | | + + + + + | Caleb Dawn | ECON | Unknown | | + + + + + Care Team Providers + +------+ + | Care Hardboard Grinder Name | Role | Phone | + [...] [address] | | | | | [place], | [place], | | | | | [place] [address] | [place] [address] | | | | | [phone] | [phone] | | | | | | | [...] | | | | | [place], [place] | | | | | | [address] | | | | | | | [...] Comment | + + | [facility] | + + + +---------+ + + [...] Comment | + + | [facility] | + + + +---------+ + + [...] Comment | + + | [facility] | + + + +---------+ + + [...] Comment | + + | [facility] | + + + +---------+ + + [...] Comment | + + | [facility] | + + + +---------+ + + [...] Comment | + + | [facility] | + + + +---------+ + + [...] Comment | + + | [facility] | + + + +---------+ + + [...] Comment | + + | [facility] | + + + +---------+ + + [...] Comment | + + | [facility] | + + + +---------+ + + [...] Comment | + + | [facility] | + + + +---------+ + + [...] Comment | + + | [facility] | + + + +---------+ + + [...] Comment | + + | [facility] | + + + +---------+ + + [...] - 1.03 | EXTERNAL | | | [place], | | | LAB | | | External | | | | | + + + + + + + + | Resulting Agency Comment | + + | [facility] | + + + +---------+ + + [...] Comment | + + | [facility] | + + + +---------+ + + [...] Comment | + + | [facility] | + + + +---------+ + + [...] Comment | + + | [facility] | + + + +---------+ + + [...] Comment | + + | [facility] | + + + +---------+ + + [...] Comment | + + | [facility] | + + + +---------+ + + [...]
--- OUTSIDE RECORDS SUMMARY | ~2020-04-03 | XMS | Encounter Summary ---
Demographics + + + | Address | [address] | | | [place] [address] | + + + | Home Phone [...] + + + | Author | [facility] | | | and [place] | + + + | Organization | [facility] | | | and [place] | + + + | Address | Unknown | + + + | Phone | Unavailable | + + + Support + + + + + | Name | Relationship | Address | Phone | + + + + + | Hi Dawn | ECON | [place] | | | | | [address] | | + + + + + | Atif Delgadillo | ECON | [place], [place] | | | | | [address] | | + + + + + | Caleb Dawn | ECON | Unknown | | + + + + + Care Team Providers + +------+ + | Care Facility Technician Name | Role | Phone | [...] NEPHROLOGY [address] | M, DO [address] [place] | | | | | [address] [place] [address] | [place], [place] [address] | | | | | [place], [place] | [place] | | | | | [address] | [address] | | | | | [phone] | | | +--------+ + + + [...] | | | | | [place], [place] | | | | | | [address] | | | | | | | | +--------+---------+ + + + documented as of this encounter Visit Diagnoses Not on filedocumented in this encounter"
--- OUTSIDE RECORDS SUMMARY | ~2020-04-03 | XMS | Encounter Summary ---
Demographics + + + | Address | [address] | | | [place] [address] | + + + | Home Phone [...] + | Author | [facility] | | | and [place] | + + + | Organization | [facility] | | | and [place] | + + + | Address | Unknown | + + + | Phone | Unavailable | + + + Support + + + + + | Name | Relationship | Address | Phone | + + + + + | Hi Dawn | ECON | [place] | | | | | [address] | | + + + + + | Atif Delgadillo | ECON | [place], [place] | | | | | [address] | | + + + + + | Caleb Dawn | ECON | Unknown | | + + + + + Care Team Providers + +------+ + | Care Steel Molder Name | Role | Phone | [...] NEPHROLOGY [address] | M, DO [address] [place] | | | | | [address] [place] [address] | [place], [place] [address] | | | | | [place], [place] | [place] | | | | | [address] | [address] | | | | | [phone] | | | +--------+ + + + [...] | | | | | [place], [place] | | | | | | [address] | | | | | | | [...]
--- OUTSIDE RECORDS SUMMARY | ~2020-04-03 | XMS | Encounter Summary ---
Demographics + + + | Address | [address] | | | [place] [address] | + + + | Home Phone [...] [place] | | | | | [address] | | + + + + + | Atif Delgadillo | ECON | [place], [place] | | | | | [address] | | + + + + + | Caleb Dawn | ECON | Unknown | | + + + + + Care Team Providers + +------+ + | Care Medical Technologist Blood Bank Name | Role | Phone | + [...] NEPHROLOGY [address] | M, DO [address] [place] | disease, stage III | | | | [address] [place] [address] | [place], [place] [address] | (moderate) (Primary | | | | [place], [place] | [place], [place] | Dx); Type 2 diabetes | | | | [address] | [address] | mellitus with stage | | | | [phone] | | 3 chronic kidney | | | | | | disease, unspecified | | | | | | senior living insulin | | | | | | use status ([facility]); | | | | | | Hyperlipidemia, [...] encounter Progress Notes Merary Arciniega RN - 12/09/2016 10:05 AM PSTLabs for nephrology appt on 01/02/17 sent to [facility] documented in this en counter Plan of Treatment +--------+---------+ + + + | Date | Type | Specialty | Care Team | Description | +--------+---------+ + + + | 05/20/ | Office | Cardiology | Yumiko Del Valle, | | | 2019 | Visit | | MD Lupe TYLER | | | | | | [place], [place] | | | | | | [address] | | | | | | | | +--------+---------+ + + + documented as of this encounter Visit Diagnoses + + | Diagnosis | + + | Chronic kidney disease, stage III (moderate) (HCC) - Primary Chronic kidney disease, | | Stage III (moderate) | + + | Type 2 diabetes mellitus with stage 3 chronic kidney disease, unspecified grocery packer | | insulin use status | + + | Hyperlipidemia, mixed Mixed hyperlipidemia | + + documented in this encounter"
--- OUTSIDE RECORDS SUMMARY | ~2020-04-03 | XMS | Encounter Summary ---
Demographics + + + | Address | [address] | | | [place] [address] | + + + | Home Phone | | + + + | Preferred Language | Unknown | + + + | Marital Status | Single | + + + | Buddhist Affiliation | Unknown | + + + [...] [place] | | | | | [address] | | + + + + + | Atif Delgadillo | ECON | [place] | | | | | [address] | | + + + + + | Caleb Dawn | ECON | Unknown | | + + + + + Care Team Providers + +------+ + | Care Oil Extractor Name | Role | Phone | + [...] NEPHROLOGY [address] | M, DO [address] [place] | | | | | [address] [facility] | [place], [facility] 100 | | | | | [place], [place] | [place] | | | | | [address] | [address] | | | | | [phone] | | | +--------+--------+ + + + [...] [place] | | | | | | [address] | | | | | | | | +--------+---------+ + + + documented as of this encounter Visit Diagnoses Not on filedocumented in this encounter"
--- OUTSIDE RECORDS SUMMARY | ~2020-04-03 | XMS | Encounter Summary ---
Demographics + + + | Address | [address] | | | [place] [address] | + + + | Home Phone [...] [place] | | | | | [address] | | + + + + + | Atif Delgadillo | ECON | [place], [place] | | | | | [address] | | + + + + + | Caleb Dawn | ECON | Unknown | | + + + + + Care Team Providers + +------+ + | Care Rouge Mixer Name | Role | Phone | + [...] NEPHROLOGY [address] | M, DO [address] [place] | disease, stage III | | | | [address] [place] [address] | [place], [place] [address] | (moderate) (Primary | | | | [place], [place] | [place], [place] | Dx); Type 2 diabetes | | | | [address] | [address] | mellitus with stage | | | | [phone] | | 3 chronic kidney | | [...] for nephrology appointment on 10/26/15 faxed to [facility]. documented in this encounter Plan of Treatment +--------+---------+ + + + | Date | Type | Specialty | Care Team | Description | +--------+---------+ + + + | 05/20/ | Office | Cardiology | Yumiko Del Valle, | | | 2019 | Visit | | MD Lupe TYLER | | | | | | [place] | | | | | | [address] | | | | | | | [...]
--- OUTSIDE RECORDS SUMMARY | ~2020-04-03 | XMS | Encounter Summary ---
Demographics + + + | Address | [address] | | | [place] [address] | + + + | Home Phone [...] [place] | | | | | [address] | | + + + + + | Atif Delgadillo | ECON | [place], [place] | | | | | [address] | | + + + + + | Caleb Dawn | ECON | Unknown | | + + + + + Care Team Providers + +------+ + | Care Director Of Maintenance Name | Role | Phone | + +------+ + PCP | Unavailable | + +------+ + Reason for Visit + + + | Reason | Comments | + + + | Medication Refill | | + + + Encounter Details +--------+--------+ + + + | Date | Type | Department | Care Team | Description | +--------+--------+ + + + | 12/19/ | Refill | [facility] [place] | Logan Baca, | Medication Refill | | 2014 | | CARDIOLOGY [address] | MD [address] | | | | | [place], | [place], | | | | | [place] [address] | [place] [address] | | | | | [phone] | [phone] | | | | | | | [...] [place] | | | | | | [address] | | | | | | | | +--------+---------+ + + + documented as of this encounter Visit Diagnoses Not on filedocumented in this encounter"
--- OUTSIDE RECORDS SUMMARY | ~2020-04-03 | XMS | Encounter Summary ---
Demographics + + + | Address | [address] | | | [place] [address] | + + + | Home Phone [...] [place] | | | | | [address] | | + + + + + | Atif Delgadillo | ECON | [place], [place] | | | | | [address] | | + + + + + | Caleb Dawn | ECON | Unknown | | + + + + + Care Team Providers + +------+ + | Care Dry Color Mixer Name | Role | Phone | [...] NEPHROLOGY [address] | M, DO [address] [place] | disease, stage III | | | | [address] [place] | [place], [place] [address] | (moderate) (Primary | | | | [place], [place] | [place], [place] | Dx); Hypertension | | | | [address] | [address] | | | | | [phone] | | | +--------+ + + + [...] | | | | | [place], [place] | | | | | | [address] | | | | | | | [...]
--- OUTSIDE RECORDS SUMMARY | ~2020-04-03 | XMS | Encounter Summary ---
Demographics + + + | Address | [address] | | | [place] [address] | + + + | Home Phone [...] [place] | | | | | [address] | | + + + + + | Atif Delgadillo | ECON | [place], [place] | | | | | [address] | | + + + + + | Caleb Dawn | ECON | Unknown | | + + + + + Care Team Providers + +------+ + | Care Restorative Care Technician Name | Role | Phone | + +------+ + PCP | Unavailable | + +------+ + Encounter Details +--------+ + + + + | Date | Type | Department | Care Team | Description | +--------+ + + + + | 09/18/ | Abstract | [facility] [place] | Freddy Sanchez | | | 2013 | | NEPHROLOGY [address] | M, DO [address] [place] | | | | | [address] | [place], [place] [address] | | | | | [place], [place] | [place] | | | | | [address] | [address] | | | | | [phone] | | | +--------+ + + + [...] | | | | | [place], [place] | | | | | | [address] | | | | | | | | +--------+---------+ + + + documented as of this encounter Procedures + +--------+ + + + | Procedure Name | Priori | Date/Time | Associated Diagnosis | Comments | | | ty | | | | + +--------+ + + + | EXTERNAL LAB: FATOUMATA | Routin | 09/17/2014 | | Results for this | | | e | | | procedure are in the | | | | | | results section. | + +--------+ + + + | EXTERNAL LAB: | Routin | 09/17/2014 | | Results for this | | GLUCOSE | e | | | procedure are in the | | | | | | results section. | + +--------+ + + + | EXTERNAL LAB: | Routin | 09/17/2014 | | Results for this | | ALBUMIN | e | | | procedure are in the | | | | | | results section. | + +--------+ + + + | EXTERNAL LAB: | Routin | 09/17/2014 | | Results for this | | PHOSPHORUS | e | | | procedure are in the | | | | | | results section. | + +--------+ + + + | EXTERNAL LAB: | Routin | 09/17/2014 | | Results for this | | CALCIUM | e | | | procedure are in the | | | | | | results section. | + +--------+ + + + | EXTERNAL LAB: CARBON | Routin | 09/17/2014 | | Results for this | | DIOXIDE | e | | | procedure are in the | | | | | | results section. | + +--------+ + + + | EXTERNAL LAB: | Routin | 09/17/2014 | | Results for this | | CHLORIDE | e | | | procedure are in the | | | | | | results section. | + +--------+ + + + | EXTERNAL LAB: | Routin | 09/17/2014 | | Results for this | | POTASSIUM | e | | | procedure are in the | | | | | | results section. | + +--------+ + + + | EXTERNAL LAB: SODIUM | Routin | 09/17/2014 | | Results for this | | | e | | | procedure are in the | | | | | | results section. | + +--------+ + + + | EXTERNAL LAB: | Routin | 09/17/2014 | | Results for this | | PROTEIN/CREATININE | e | | | procedure are in the | | RATIO | | | | results section. | + +--------+ + + + | EXTERNAL LAB: CBC | Routin | 09/17/2014 | | Results for this | | | e | | | procedure are in the | | | | | | results section. | + +--------+ + + + | EXTERNAL LAB: EGFR | Routin | 09/17/2014 | | Results for this | | | e | | | procedure are in the | | | | | | results section. | + +--------+ + + + | EXTERNAL LAB: | Routin | 09/17/2014 | | Results for this | | CREATININE | e | | | procedure are in the | | | | | | results section. | + +--------+ + + + documented in this encounter Results External Lab: Protein/Creatinine Ratio (09/17/2014) + +-------+ + + + | Component | Value | Ref Range | Performed | Pathologist | | | | | At | Signature | + +-------+ + + + | Protein/Cre | 0.104 | | | | | atinine | | | | | | Ratio, | | | | | | External | | | | | + +-------+ + + + + + | Specimen | + + | | + + External Lab: BUN (09/17/2014) + +-------+ + + + | Component [...] + +---------+ + + External Lab: Glucose (09/17/2014) + +-------+ + + + | Component | Value | Ref Range | Performed | Pathologist | | | | | At | Signature | + +-------+ + + + | Glucose, | 172 | | EXTERNAL | | | External [...] + +---------+ + + External Lab: Albumin (09/17/2014) + +-------+ + + + | Component [...] + +---------+ + + External Lab: Phosphorus (09/17/2014) + +-------+ + + + | Component [...] + +---------+ + + External Lab: Calcium (09/17/2014) + +-------+ + + + | Component | Value | Ref Range | Performed | Pathologist | | | | | At | Signature | + +-------+ + + + | Calcium, | 9.2 | | EXTERNAL | | | External [...] +---------+ + + External Lab: Carbon Dioxide (09/17/2014) + +-------+ + + + | Component [...] + +---------+ + + External Lab: Chloride (09/17/2014) + +-------+ + + + | Component [...] + +---------+ + + External Lab: Potassium (09/17/2014) + +-------+ + + + | Component | Value | Ref Range | Performed | Pathologist | | | | | At | Signature | + +-------+ + + + | Potassium, | 4.0 | | EXTERNAL | | | External [...] + +---------+ + + External Lab: Sodium (09/17/2014) + +-------+ + + + | Component | Value | Ref Range | Performed | Pathologist | | | | | At | Signature | + +-------+ + + + | Sodium, | 139 | | EXTERNAL | | | External [...] + +---------+ + + External Lab: CBC (09/17/2014) + +-------+ + + + | Component | Value | Ref Range | Performed | Pathologist | | | | | At | Signature | + +-------+ + + + | WBC, | 5.4 | | EXTERNAL | | | External | | | LAB | | + +-------+ + + + | HGB, | 13.1 | | EXTERNAL | | | External | | | LAB | | + +-------+ + + + | HCT, | 38.1 | | EXTERNAL | | | External | | | LAB | | + +-------+ + + + | PLT, | 131 | | EXTERNAL | | | External | | | LAB | | + +-------+ + + + | RBC, | 4.23 | | EXTERNAL | | | External | | | LAB | | + +-------+ + + + | MCV, | 90 | | EXTERNAL | | | External | | | LAB | | + +-------+ + + + | RDW, | 14.3 | | EXTERNAL | | | External [...] + +---------+ + + External Lab: eGFR (09/17/2014) + +-------+ + + + | Component | Value | Ref Range | Performed | Pathologist | | | | | At | Signature | + +-------+ + + + | eGFR, | 32 | | EXTERNAL | | | External | | | LAB | | + +-------+ + + + | eGFR, | | | EXTERNAL | | | | | | LAB | | | Faro[place], | | | | | | External [...] + +---------+ + + External Lab: Creatinine (09/17/2014) + +-------+ + + + | Component | Value | Ref Range | Performed | Pathologist | | | | | At | Signature | + +-------+ + + + | Creatinine, | 2.05 | | EXTERNAL | | | External [...]
--- OUTSIDE RECORDS SUMMARY | ~2020-04-03 | XMS | Encounter Summary ---
Demographics + + + | Address | [address] | | | [place] [address] | + + + | Home Phone [...] [place] | | | | | [address] | | + + + + + | Atif Delgadillo | ECON | [place] | | | | | [address] | | + + + + + | Caleb Dawn | ECON | Unknown | | + + + + + Care Team Providers + +------+ + | Care Director Prospect Name | Role | Phone | + [...] NEPHROLOGY [address] | M, DO [address] [place] | disease, stage III | | | | [address] | [place], [place] [address] | (moderate) (HCC) | | | | [place] | [place] | (Primary Dx); | | | | [address] | [address] | Hyperlipidemia, | | | | [phone] | | mixed; Type 2 | | | | | | diabetes mellitus | | | | | | with stage 3 chronic | | | | | | kidney disease, | | | | | | unspecified whether | | | | | | detention insulin | | | | | | [...] nephrology appt on 05/06/19 [facility] to [facility]. documented in this en counter Plan of [...] [place] | | | | | | [address] | | | | | | | [...] | | (25-Hydroxy) | | | (moderate) ([facility]) | Expires: 04/10/2020 | | | | | Hyperlipidemia, | | | | | | mixed Type 2 | | | | | | diabetes mellitus | | | | | | with stage 3 chronic | | | | | | kidney disease, | | | | | | unspecified whether | | | | | | detention insulin | | | | | | use ([facility]) | | + +------+--------+ + + documented as of this encounter Visit Diagnoses + + | Diagnosis | + + | Chronic kidney disease, stage III (moderate) ([facility]) - Primary Chronic kidney disease, | | Stage III (moderate) | + + | Hyperlipidemia, mixed Mixed hyperlipidemia | + + | Type 2 diabetes mellitus with stage 3 chronic kidney disease, unspecified whether long | | term insulin use (HCC) | + + documented in this encounter"
--- OUTSIDE RECORDS SUMMARY | ~2020-04-03 | XMS | Encounter Summary ---
Demographics + + + | Address | [address] | | | [place] [address] | + + + | Home Phone [...] [place] | | | | | [address] | | + + + + + | Atif Delgadillo | ECON | [place], [place] | | | | | [address] | | + + + + + | Caleb Dawn | ECON | Unknown | | + + + + + Care Team Providers + +------+ + | Care Client Experience Manager Name | Role | Phone | + +------+ + PCP | Unavailable | + +------+ + Encounter Details +--------+ + + + + | Date | Type | Department | Care Team | Description | +--------+ + + + + | 10/03/ | Hospital | [facility] | | | | 2006 | Encounter | MED CTR LABORATORY | | | | | | [address] | | | | | | [place] | | | | | | [address] | | | | | | [phone] | | | +--------+ + + + [...] [place] | | | | | | [address] | | | | | | | | +--------+---------+ + + + documented as of this encounter Visit Diagnoses Not on filedocumented in this encounter"
--- OUTSIDE RECORDS SUMMARY | ~2020-04-03 | XMS | Encounter Summary ---
Demographics + + + | Address | [address] | | | [place] [address] | + + + | Home Phone [...] [place] | | | | | [address] | | + + + + + | Atif Delgadillo | ECON | [place], [place] | | | | | [address] | | + + + + + | Caleb Dawn | ECON | Unknown | | + + + + + Care Team Providers + +------+ + | Care Continuity Director Name | Role | Phone | + +------+ + PCP | Unavailable | + +------+ + Encounter Details +--------+ + + + + | Date | Type | Department | Care Team | Description | +--------+ + + + + | 01/29/ | Hospital | [facility] | | | | 2006 | Encounter | MED CTR XRAY [address] | | | | | | [address] | | | | | | [place] [address] | | | | | | [phone] | | | +--------+ + + + [...] [place] | | | | | | [address] | | | | | | | | +--------+---------+ + + + documented as of this encounter Visit Diagnoses Not on filedocumented in this encounter"
--- OUTSIDE RECORDS SUMMARY | ~2020-04-03 | XMS | Encounter Summary ---
Demographics + + + | Address | [address] | | | [place] [address] | + + + | Home Phone [...] [place] | | | | | [address] | | + + + + + | Atif Delgadillo | ECON | [place], [place] | | | | | [address] | | + + + + + | Caleb Dawn | ECON | Unknown | | + + + + + Care Team Providers + +------+ + | Care Flat Bed Operator Name | Role | Phone | [...] NEPHROLOGY [address] | M, DO [address] [place] | unspecified type | | | | [address] [facility] | [place], [facility] 100 | diabetes mellitus | | | | [place], [place] | [place], [place] | with renal | | | | [address] | [address] | manifestations, not | | | | [phone] | | stated as | | | [...] 02/12/2014 PHOS 2.8 02/12/2014 PTH 105.1 02/12/2014 [id number] 5.2 02/12/2014 Lab Results Component Value Date WBCEX 8.6 02/12/2014 HGBEX 13.1* 02/12/2014 HCTEX 38.6* 02/12/2014 PLTEX 169 02/12/2014 Lab Results Component Value Date CHOLEX 161 02/12/2014 HDLEX 30.4* 02/12/2014 LDLEX 80 02/12/2014 TRIGEX 253* 02/12/2014 last HbA1c = 5.2% Lab Results Component Value Date CRCLEARANCE 79.0* 02/12/2014 YWM13ZCI 287.0 02/12/2014 Assessment: 1. CKD Stage 2, [...] | | | | | [place], [place] | | | | | | [address] | | | | | | | [...]
--- OUTSIDE RECORDS SUMMARY | ~2020-04-03 | XMS | Encounter Summary ---
Demographics + + + | Address | [address] | | | [place] [address] | + + + | Home Phone [...] [place] | | | | | [address] | | + + + + + | Atif Delgadillo | ECON | [place], [place] | | | | | [address] | | + + + + + | Caleb Dawn | ECON | Unknown | | + + + + + Care Team Providers + +------+ + | Care Deep Fat Fry Cook Name | Role | Phone | + +------+ + PCP | Unavailable | + +------+ + Encounter Details +--------+ + + + + | Date | Type | Department | Care Team | Description | +--------+ + + + + | 12/19/ | Orders Only | [facility] [place] | Freddy Sanchez | Chronic kidney | | 2013 | | NEPHROLOGY [address] | M, DO [address] [place] | disease, stage III | | | | [address] | [place], [place] [address] | (moderate) (Primary | | | | [place], [place] | [place], [place] | Dx); Unspecified | | | | [address] | [address] | hypertensive kidney | | | | [phone] | | disease with chronic | | [...] | | | | | [place], [place] | | | | | | [address] | | | | | | | [...] stated as | | uncontrolled(250.40) ([facility]) 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
--- OUTSIDE RECORDS SUMMARY | ~2020-04-03 | XMS | Encounter Summary ---
Demographics + + + | Address | [address] | | | [place] [address] | + + + | Home Phone [...] [place] | | | | | [address] | | + + + + + | Atif Delgadillo | ECON | [place], [place] | | | | | [address] | | + + + + + | Caleb Dawn | ECON | Unknown | | + + + + + Care Team Providers + +------+ + | Care Extrusion Former Name | Role | Phone | + [...] | unspecified | MD [address] | [address] | | | | | type | [place] | [address] [place] | | | | | diabetes | [place] [address] | [address] | | | | | mellitus | [place], | [place], [place] | | | | | with renal | [place] | [address] Phone: | | | | | manifestatio | [address] | [phone] | | | | | ns, not | Phone: | Fax: | | | | | stated as | [phone] | [phone] | | | | | uncontrolled | Fax: | | | | | | [phone] | [phone] | | | | | | (HCC) [...] | | [address] | [place], [place] [address] | diabetes mellitus | | | | [place] | [place] | with renal | | | | [address] | [address] | manifestations, not | | | | [phone] | | stated as | | | [...] 09/17/2014 GLUEX 172 09/17/2014 PHOSEX 3.2 09/17/2014 [id number] 6.3* 07/25/2014 Lab Results Component Value Date [...] [place] | | | | | | [id number] | | | | | | | [...]
--- OUTSIDE RECORDS SUMMARY | ~2020-04-03 | XMS | Encounter Summary ---
Demographics + + + | Address | [address] | | | [place] [address] | + + + | Home Phone [...] [place] | | | | | [address] | | + + + + + | Atif Delgadillo | ECON | [place], [place] | | | | | [address] | | + + + + + | Caleb Dawn | ECON | Unknown | | + + + + + Care Team Providers + +------+ + | Care Operations Clerk Name | Role | Phone | [...] | 12/19/ | Refill | [facility] [place] | Logan Baca, | Medication Refill | | 2014 | | CARDIOLOGY [address] | MD [address] | | | | | [place], | [place], | | | | | [place] [address] | [place] [address] | | | | | [phone] | [phone] | | | | | | | [...] [place] | | | | | | [address] | | | | | | | | +--------+---------+ + + + documented as of this encounter Visit Diagnoses Not on filedocumented in this encounter"
--- OUTSIDE RECORDS SUMMARY | ~2020-04-03 | XMS | Encounter Summary ---
Demographics + + + | Address | [address] | | | [place] [address] | + + + | Home Phone [...] [place] | | | | | [address] | | + + + + + | Atif Delgadillo | ECON | [place], [place] | | | | | [address] | | + + + + + | Caleb Dawn | ECON | Unknown | | + + + + + Care Team Providers + +------+ + | Care Barrel Assembler Name | Role | Phone | + +------+ + PCP | Unavailable | + +------+ + Encounter Details +--------+ + + + + | Date | Type | Department | Care Team | Description | +--------+ + + + + | 10/03/ | Hospital | [facility] | | | | 2006 | Encounter | MED CTR LABORATORY | | | | | | [address] | | | | | | [place] | | | | | | [address] | | | | | | [phone] | | | +--------+ + + + [...] [place] | | | | | | [address] | | | | | | | | +--------+---------+ + + + documented as of this encounter Visit Diagnoses Not on filedocumented in this encounter"
--- OUTSIDE RECORDS SUMMARY | ~2020-04-03 | XMS | Encounter Summary ---
Demographics + + + | Address | [address] | | | [place] [address] | + + + | Home Phone [...] [place] | | | | | [address] | | + + + + + | Atif Delgadillo | ECON | [place], [place] | | | | | [address] | | + + + + + | Caleb Dawn | ECON | Unknown | | + + + + + Care Team Providers + +------+ + | Care Development Scientist Name | Role | Phone | + +------+ + PCP | Unavailable | + +------+ + Encounter Details +--------+ + + + + | Date | Type | Department | Care Team | Description | +--------+ + + + + | 01/29/ | Hospital | [facility] | | | | 2006 | Encounter | MED CTR XRAY [address] | | | | | | [address] | | | | | | [place] [address] | | | | | | [phone] | | | +--------+ + + + [...] [place] | | | | | | [address] | | | | | | | | +--------+---------+ + + + documented as of this encounter Visit Diagnoses Not on filedocumented in this encounter"
--- OUTSIDE RECORDS SUMMARY | ~2020-04-03 | XMS | Encounter Summary ---
Demographics + + + | Address | [address] | | | [place] [address] | + + + | Home Phone [...] + + + | Author | [facility] | | | and [place] | + + + | Organization | [facility] | | | and [place] | + + + | Address | Unknown | + + + | Phone | Unavailable | + + + Support + + + + + | Name | Relationship | Address | Phone | + + + + + | Hi Dawn | ECON | [place] | | | | | [address] | | + + + + + | Atif Delgadillo | ECON | [place] | | | | | [address] | | + + + + + | Caleb Dawn | ECON | Unknown | | + + + + + Care Team Providers + +------+ + | Care Muffle Operator Name | Role | Phone | [...] | [address] | [address], [place] | (moderate) (HCC) | | | | [place] | [address] [place] | (Primary Dx); Type 2 | | | | [address] | [address] | diabetes mellitus | | | | [phone] | | with stage 3 chronic | | | | | | kidney disease, | | | | | | unspecified whether | | | | | | alf insulin | | | | | | use ([facility]); | | | | | | Hyperlipidemia, [...] nephrology appt on 12/31/18 sent to [facility]. documented in this en counter Plan of Treatment +--------+---------+ + + + | Date | Type | Specialty | Care Team | Description | +--------+---------+ + + + | 05/20/ | Office | Cardiology | Yumiko Del Valle, | | | 2019 | Visit | | MD [address] | | | | | | [place], [place] | | | | | | [address] | | | | | | | [...]
--- OUTSIDE RECORDS SUMMARY | ~2020-04-03 | XMS | Encounter Summary ---
Demographics + + + | Address | [address] | | | [place] [address] | + + + | Home Phone | | + + + | Preferred Language | Unknown | + + + | Marital Status | Single | + + + | Adventism Affiliation | Unknown | + + + | Race | Unknown | + + + | Ethnic Group | Unknown | + + + Author + + + | Author | [facility] | | | and [place] | + + + | Organization | [facility] | | | and [place] | + + + | Address | Unknown | + + + | Phone | Unavailable | + + + Support + + + + + | Name | Relationship | Address | Phone | + + + + + | Hi Dawn | ECON | [place] | | | | | [address] | | + + + + + | Atif Delgadillo | ECON | [place] | | | | | [address] | | + + + + + | Caleb Dawn | ECON | Unknown | | + + + + + Care Team Providers + +------+ + | Care Environmental Engineering Intern Name | Role | Phone | [...] VALDEZ | | | | | [facility] | [place] [address] | | | | | [address] | [phone] | | | | | [phone] | | | +--------+ + + + [...] [place] | | | | | | [address] | | | | | | | [...] MV A Jordon: 0.82 m/s MV Dec [place]: 4.31 m/s2 MV | | | DecT: [...] TR Vmax: 2.64 m/s | | | Repair Table Operator: TATUM Authenticated by: Yumiko Del Valle Report [...] cmLVIDd: 5.41 cmLVPWd: 1.10 cmLVOT Area: 4.72 [id number] Diam: | | 2.45 cm%FS: 40.73 %EF(Teich): [...] (A-L): 29.02 | | ml/m2LAAs A2C: 19.45 [id number] A-L A2C: 61.97 mlLALs A2C: 5.18 cmLAAs A4C: 23.50 | | [id number] A-L A4C: 88.44 mlLALs A4C: 5.30 cmRAAs: 20.57 [id number] A-L: 67.40 | | mlRAESV MOD: 63.69 mlRALs: 5.32 cmTAPSE: 2.43 cmAV maxP.21 mmHgAV meanPG: | | 2.78 mmHgAV Vmax: 1.24 m/Vernon Vmean: 0.77 m/Vernon VTI: 26.17 cmAVA Vmax: 3.51 | | cm2AVA (VTI): 4.30 na2OQOY (Vmax): 0.00 cm2/m2AVAI (VTI): 0.00 cm2/m2LVOT maxPG: | | 3.42 mmHgLVOT meanP.71 mmHgLVSI Dopp: 43.63 ml/m2LVSV Dopp: 112.56 mlLVOT | | Vmax: 0.92 m/sLVOT Vmean: 0.60 m/sLVOT VTI: 23.80 cmMV A Jordon: 0.82 m/sMV Dec | | [place]: 4.31 m/s2MV DecT: 185.71 msMV E Jordon: 0.80 m/sMV E/A Ratio: 0.96MV PHT: | | 53.85 msMVA By PHT: 4.08 yl0Cwylik e': 0.05 m/sSeptal E/e': 15.59Lateral e': | | 0.08 m/sLateral E/e': 9.90PV maxP.24 mmHgPV Vmax: 0.55 m/sRAP: 5 mmHgRVSP: | | 32.98 mmHgTR maxP.98 mmHgTR Vmax: 2.64 m/s Repair Table Operator: DBSAuthenticated by: | | [facility] Date/Time: 05-12-2018 7:33:45 IMPRESSION: 1. The left [...] A Jordon: 0.82 m/s | |MV Dec [place]: 4.31 m/s2 | |MV DecT: 185.71 ms [...] |TR Vmax: 2.64 m/s | | | |Repair Table Operator: DBS | |Authenticated by: Yumiko Del Valle [...]
--- OUTSIDE RECORDS SUMMARY | ~2020-04-03 | XMS | Encounter Summary ---
Demographics + + + | Address | [address] | | | [place] [address] | + + + | Home Phone | | + + + | Preferred Language | Unknown | + + + | Marital Status | Single | + + + | Muslim Affiliation | Unknown | + + + [...] [place] | | | | | [address] | | + + + + + | Atif Delgadillo | ECON | [place], [place] | | | | | [address] | | + + + + + | Caleb Dawn | ECON | Unknown | | + + + + + Care Team Providers + +------+ + | Care Employment Counselor Name | Role | Phone | + +------+ + PCP | Unavailable | + +------+ + Encounter Details +--------+ + + + + | Date | Type | Department | Care Team | Description | +--------+ + + + + | 02/23/ | Abstract | [facility] [place] | Freddy Sanchez | | | 2017 | | NEPHROLOGY [address] | M, DO [address] | | | | | [address] | [place], [place] [address] | | | | | [place], [place] | [place] | | | | | [address] | [address] | | | | | [phone] | | | +--------+ + + + [...] | | | | | [place], [place] | | | | | | [address] | | | | | | | | +--------+---------+ + + + documented as of this encounter Procedures + +--------+ + + + | Procedure Name | Priori | Date/Time | Associated Diagnosis | Comments | | | ty | | | | + +--------+ + + + | EXTERNAL LAB: FATOUMATA | Routin | 02/22/2018 | | Results for this | | | e | | | procedure are in the | | | | | | results section. | + +--------+ + + + | EXTERNAL LAB: | Routin | 02/22/2018 | | Results for this | | GLUCOSE | e | | | procedure are in the | | | | | | results section. | + +--------+ + + + | EXTERNAL LAB: ALT | Routin | 02/22/2018 | | Results for this | | | e | | | procedure are in the | | | | | | results section. | + +--------+ + + + | EXTERNAL LAB: AST | Routin | 02/22/2018 | | Results for this | | | e | | | procedure are in the | | | | | | results section. | + +--------+ + + + | EXTERNAL LAB: | Routin | 02/22/2018 | | Results for this | | ALKALINE PHOSPHATASE | e | | | procedure are in the | | | | | | results section. | + +--------+ + + + | EXTERNAL LAB: | Routin | 02/22/2018 | | Results for this | | BILIRUBIN, TOTAL | e | | | procedure are in the | | | | | | results section. | + +--------+ + + + | EXTERNAL LAB: | Routin | 02/22/2018 | | Results for this | | ALBUMIN | e | | | procedure are in the | | | | | | results section. | + +--------+ + + + | EXTERNAL LAB: | Routin | 02/22/2018 | | Results for this | | PROTEIN, TOTAL | e | | | procedure are in the | | | | | | results section. | + +--------+ + + + | EXTERNAL LAB: | Routin | 02/22/2018 | | Results for this | | CALCIUM | e | | | procedure are in the | | | | | | results section. | + +--------+ + + + | EXTERNAL LAB: CARBON | Routin | 02/22/2018 | | Results for this | | DIOXIDE | e | | | procedure are in the | | | | | | results section. | + +--------+ + + + | EXTERNAL LAB: | Routin | 02/22/2018 | | Results for this | | CHLORIDE | e | | | procedure are in the | | | | | | results section. | + +--------+ + + + | EXTERNAL LAB: | Routin | 02/22/2018 | | Results for this | | POTASSIUM | e | | | procedure are in the | | | | | | results section. | + +--------+ + + + | EXTERNAL LAB: SODIUM | Routin | 02/22/2018 | | Results for this | | | e | | | procedure are in the | | | | | | results section. | + +--------+ + + + | EXTERNAL LAB: CBC | Routin | 02/22/2018 | | Results for this | | | e | | | procedure are in the | | | | | | results section. | + +--------+ + + + | EXTERNAL LAB: | Routin | 02/22/2018 | | Results for this | | TRIGLYCERIDES | e | | | procedure are in the | | | | | | results section. | + +--------+ + + + | EXTERNAL LAB: | Routin | 02/22/2018 | | Results for this | | CHOLESTEROL, HDL | e | | | procedure are in the | | | | | | results section. | + +--------+ + + + | EXTERNAL LAB: | Routin | 02/22/2018 | | Results for this | | CHOLESTEROL, TOTAL | e | | | procedure are in the | | | | | | results section. | + +--------+ + + + | EXTERNAL LAB: | Routin | 02/22/2018 | | Results for this | | CHOLESTEROL, LDL | e | | | procedure are in the | | | | | | results section. | + +--------+ + + + | EXTERNAL LAB: EGFR | Routin | 02/22/2018 | | Results for this | | | e | | | procedure are in the | | | | | | results section. | + +--------+ + + + | EXTERNAL LAB: | Routin | 02/22/2018 | | Results for this | | CREATININE | e | | | procedure are in the | | | | | | results section. | + +--------+ + + + | HEMOGLOBIN A1C | Routin | 02/22/2018 | | Results for this | | | e | | | procedure are in the | | | | | | results section. | + +--------+ + + + documented in this encounter Results Hemoglobin A1C (02/22/2018) + +-------+ + + + | Component | Value | Ref Range | Performed | Pathologist | | | | | At | Signature | + +-------+ + + + | Hemoglobin | 6.9 | % | EXTERNAL | | | [...] + +---------+ + + External Lab: FATOUMATA (02/22/2018) + +--------+ + + + | Component | Value | Ref Range | Performed | Pathologist | | | | | At | Signature | + +--------+ + + + | BUN, | 57 (A) | 6 - 23 | EXTERNAL | | | External | | | LAB | | + +--------+ + + + + +---------+ + + | Performing | Address | City/State/Zipcode | Phone Number | | Organization | | | | + +---------+ + + | EXTERNAL LAB | | | | + +---------+ + + External Lab: Glucose (02/22/2018) + +---------+ + + + | Component | Value | Ref Range | Performed | Pathologist | | | | | At | Signature | + +---------+ + + + | Glucose, | 130 (A) | 70 - 100 | EXTERNAL | | | External | | | LAB | | + +---------+ + + + + +---------+ + + | Performing | Address | City/State/Zipcode | Phone Number | | Organization | | | | + +---------+ + + | EXTERNAL LAB | | | | + +---------+ + + External Lab: ALT (02/22/2018) + +-------+ + + + | [...] + +---------+ + + External Lab: AST (02/22/2018) + +--------+ + + + | Component [...] +---------+ + + External Lab: Alkaline Phosphatase (02/22/2018) + +-------+ + + + | Component | Value | Ref Range | Performed | Pathologist | | | | | At | Signature | + +-------+ + + + | ALP, | 53 | 31 - 120 | EXTERNAL | | | External | | | LAB | | + +-------+ + + + + +---------+ + + | Performing | Address | City/State/Zipcode | Phone Number | | Organization | | | | + +---------+ + + | EXTERNAL LAB | | | | + +---------+ + + External Lab: Bilirubin, Total (02/22/2018) + +-------+ + + + | [...] + +---------+ + + External Lab: Albumin (02/22/2018) + +-------+ + + + | [...] +---------+ + + External Lab: Protein, Total (02/22/2018) + +-------+ + + + | Component | Value | Ref Range | Performed | Pathologist | | | | | At | Signature | + +-------+ + + + | Protein, | 6.2 | 6 - 8 | EXTERNAL | [...] + +---------+ + + External Lab: Calcium (02/22/2018) + +-------+ + + + | [...] +---------+ + + External Lab: Carbon Dioxide (02/22/2018) + +-------+ + + + | Component | Value | Ref Range | Performed | Pathologist | | | | | At | Signature | + +-------+ + + + | Carbon | 25 | 19 - 31 | EXTERNAL | [...] + +---------+ + + External Lab: Chloride (02/22/2018) + +-------+ + + + | [...] + +---------+ + + External Lab: Potassium (02/22/2018) + +-------+ + + + | Component | Value | Ref Range | Performed | Pathologist | | | | | At | Signature | + +-------+ + + + | Potassium, | 4.2 | 3.6 - 5.1 | EXTERNAL | | | External | | | LAB | | + +-------+ + + + + +---------+ + + | Performing | Address | City/State/Zipcode | Phone Number | | Organization | | | | + +---------+ + + | EXTERNAL LAB | | | | + +---------+ + + External Lab: Sodium (02/22/2018) + +-------+ + + + | [...] + +---------+ + + External Lab: CBC (02/22/2018) + + + + + + | Component | Value | Ref Range | Performed | Pathologist | | | | | At | Signature | + + + + + + | WBC, | 6 | 4.5 - 11 | EXTERNAL | | | External | | | LAB | | + + + + + + | HGB, | 13.1 (A) | 13.5 - 18 | EXTERNAL | | | External | | | LAB | | + + + + + + | HCT, | 39.1 (A) | 41 - 50 | EXTERNAL | | | External | | | LAB | | + + + + + + | PLT, | 128 (A) | 140 - 440 | EXTERNAL | | | External | | | LAB | | + + + + + + | RBC, | 4.25 (A) | 4.3 - 5.7 | EXTERNAL [...] + + + + + + + +---------+ + + | Performing | Address | City/State/Zipcode | Phone Number | | Organization | | | | + +---------+ + + | EXTERNAL LAB | | | | + +---------+ + + External Lab: Triglycerides (02/22/2018) + +---------+ + + + | Component | Value | Ref Range | Performed | Pathologist | | | | | At | Signature | + +---------+ + + + | Triglycerid | 201 (A) | 30 - 150 | EXTERNAL [...] +---------+ + + External Lab: Cholesterol, HDL (02/22/2018) + + + + + + | Component | Value | Ref Range | Performed | Pathologist | | | | | At | Signature | + + + + + + | HDL | 24.7 (A) | 40 mg/dl | EXTERNAL | [...] +---------+ + + External Lab: Cholesterol, Total (02/22/2018) + +-------+ + + + | Component | Value | Ref Range | Performed | Pathologist | | | | | At | Signature | + +-------+ + + + | Cholesterol | 114 | 200 mg/dl | EXTERNAL | | [...] +---------+ + + External Lab: Cholesterol, LDL (02/22/2018) + +-------+ + + + | Component | Value | Ref Range | Performed | Pathologist | | | | | At | Signature | + +-------+ + + + | LDL | 49 | 100 | EXTERNAL | | | [...] + +---------+ + + External Lab: eGFR (02/22/2018) + +-------+ + + + | Component | Value | Ref Range | Performed | Pathologist | | | | | At | Signature | + +-------+ + + + | eGFR, | 26 | | EXTERNAL | | | External [...] + +---------+ + + External Lab: Creatinine (02/22/2018) + + + + + + | Component | Value | Ref Range | Performed | Pathologist | | | | | At | Signature | + + + + + + | Creatinine, | 2.41 (A) | 0.7 - 1.18 | EXTERNAL [...]
--- OUTSIDE RECORDS SUMMARY | ~2020-04-03 | XMS | Encounter Summary ---
Demographics + + + | Address | [address] | | | [place] [address] | + + + | Home Phone [...] [place] | | | | | [address] | | + + + + + | Atif Delgadillo | ECON | [place] | | | | | [address] | | + + + + + | Caleb Dawn | ECON | Unknown | | + + + + + Care Team Providers + +------+ + | Care Envelope Machine Adjuster Name | Role | Phone | + [...] NEPHROLOGY [address] | M, DO [address] | | | | | [address] [facility] | [place], [address] | | | | | [place], [place] | [place], [place] | | | | | [address] | [address] | | | | | [phone] | | | +--------+ + + + [...] [place] | | | | | | [address] | | | | | | | [...]
--- OUTSIDE RECORDS SUMMARY | ~2020-04-03 | XMS | Encounter Summary ---
Demographics + + + | Address | [address] | | | [place] [address] | + + + | Home Phone | | + + + | Preferred Language | Unknown | + + + | Marital Status | Single | + + + | Jainism Affiliation | Unknown | + + + | Race | Unknown | + + + | Ethnic Group | Unknown | + + + Author + + + | Author | [facility] | | | and [place] | + + + | Organization | [facility] | | | and [place] | + + + | Address | Unknown | + + + | Phone | Unavailable | + + + Support + + + + + | Name | Relationship | Address | Phone | + + + + + | Hi Dawn | ECON | [place] | | | | | [address] | | + + + + + | Atif Delgadillo | ECON | [place], [place] | | | | | [address] | | + + + + + | Caleb Dawn | ECON | Unknown | | + + + + + Care Team Providers + +------+ + | Care Printer Slotter Feeder Name | Role | Phone | + +------+ + PCP | Unavailable | + +------+ + Encounter Details +--------+ + + + + | Date | Type | Department | Care Team | Description | +--------+ + + + + | 07/11/ | Abstract | [facility] | Freddy Sanchez | | | 2017 | | NEPHROLOGY [address] | M, DO [address] [place] | | | | | [address] | [place], [address] | | | | | [place], [place] | [place] | | | | | [address] | [address] | | | | | [phone] | | | +--------+ + + + [...] PDTdocumented in this encounter Plan of Treatment +--------+---------+ + + + | Date | Type | Specialty | Care Team | Description | +--------+---------+ + + + | 05/20/ | Office | Cardiology | Yumiko Del Valle, | | | 2019 | Visit | | MD [address]pe [address]YL[address] | | | | | | [place] | | | | | | [address] | | | | | | | | +--------+---------+ + + + documented as of this encounter Visit Diagnoses Not on filedocumented in this encounter"
--- OUTSIDE RECORDS SUMMARY | ~2020-04-03 | XMS | Encounter Summary ---
Demographics + + + | Address | [address] | | | [place] [address] | + + + | Home Phone | | + + + | Preferred Language | Unknown | + + + | Marital Status | Single | + + + | Alevism Affiliation | Unknown | + + + | Race | Unknown | + + + | Ethnic Group | Unknown | + + + Author + + + | Author | [facility] | | | and [place] | + + + | Organization | [facility] | | | and [place] | + + + | Address | Unknown | + + + | Phone | Unavailable | + + + Support + + + + + | Name | Relationship | Address | Phone | + + + + + | Hi Dawn | ECON | [place] | | | | | [address] | | + + + + + | Atif Delgadillo | ECON | [place] | | | | | [address] | | + + + + + | Caleb Dawn | ECON | Unknown | | + + + + + Care Team Providers + +------+ + | Care Scorekeeper Name | Role | Phone | + [...] | kidney | MD [address] | | | | | disease, | [address] | [place], [place] | | | | | stage 3 | [place] [address] | [address] | | | | | (moderate) | [place], | [place] | | | | | (HCC) | [place] | [address] Phone: | | | | | Hypertension | [address] | [phone] | | | | | , essential | Phone: | Fax: | | | | | Type 2 | [phone] | [phone] | | | | | diabetes | Fax: | | | | | | mellitus | [phone] | | | | | | with stage 3 | | | | | | | chronic | | | | | | | kidney | | | | | | | disease | | | | | | | (HCC) | | | | | | | Procedures | | | | | | | [place] OFFICE | | | | | | [...] + + | 03/16/ | Off-Site | [facility] [place] | Freddy Sanchez | | | 2020 | Visit | NEPHROLOGY [address] | M, DO [address] | | | | | [address] | [place], [address] | | | | | [place], [place] | [place], [place] | | | | | [address] | [address] | | | | | [phone] | | | +--------+ + + + [...] [place] | | | | | | [address] | | | | | | | | +--------+---------+ + + + documented as of this encounter Visit Diagnoses Not on filedocumented in this encounter"
--- OUTSIDE RECORDS SUMMARY | ~2020-04-03 | XMS | Encounter Summary ---
Demographics + + + | Address | [address] | | | [place] [address] | + + + | Home Phone | | + + + | Preferred Language | Unknown | + + + | Marital Status | Single | + + + | Buddhist Affiliation | Unknown | + + + | Race | Unknown | + + + | Ethnic Group | Unknown | + + + Author + + + | Author | [facility] | | | and [place] | + + + | Organization | [facility] | | | and [place] | + + + | Address | Unknown | + + + | Phone | Unavailable | + + + Support + + + + + | Name | Relationship | Address | Phone | + + + + + | Hi Dawn | ECON | [place] | | | | | [address] | | + + + + + | Atif Delgadillo | ECON | [place], [place] | | | | | [address] | | + + + + + | Caleb Dawn | ECON | Unknown | | + + + + + Care Team Providers + +------+ + | Care Psychiatric Technician Assistant Name | Role | Phone | + +------+ + PCP | Unavailable | + +------+ + Encounter Details +--------+ + + + + | Date | Type | Department | Care Team | Description | +--------+ + + + + | 10/20/ | Orders Only | [facility] | Timothy, | Hypertension, | | 2014 | | CARDIOLOGY [address] | [address] | essential (Primary | | | | [place], | [place], | Dx); Congestive | | | | [place] [address] | [place] [address] | heart failure, | | | | [phone] | [phone] | unspecified | | | | | [...] [place] | | | | | | [address] | | | | | | | [...] MD | | | | | | ([id number]) on 10/29/2015 | | | | | [...]
--- OUTSIDE RECORDS SUMMARY | ~2020-04-03 | XMS | Encounter Summary ---
Demographics + + + | Address | [address] | | | [place] [address] | + + + | Home Phone [...] [place] | | | | | [address] | | + + + + + | Atif Delgadillo | ECON | [place] | | | | | [address] | | + + + + + | Caleb Dawn | ECON | Unknown | | + + + + + Care Team Providers + +------+ + | Care Media Job Titles Name | Role | Phone | + [...] NEPHROLOGY [address] | M, DO [address] [place] | | | | | [address] [facility] | [place], [place] [address] | | | | | [place], [place] | [place], [place] | | | | | [address] | [address] | | | | | [phone] | | | +--------+ + + + [...] [place] | | | | | | [address] | | | | | | | [...]
--- OUTSIDE RECORDS SUMMARY | ~2020-04-03 | XMS | Encounter Summary ---
Demographics + + + | Address | [address] | | | [place] [address] | + + + | Home Phone [...] [place] | | | | | [address] | | + + + + + | Atif Delgadillo | ECON | [place], [place] | | | | | [address] | | + + + + + | Caleb Dawn | ECON | Unknown | | + + + + + Care Team Providers + +------+ + | Care Enterer Name | Role | Phone | + [...] + + | 07/07/ | Telephone | [facility] | Freddy Sanchez | Medication Question | | 2017 | | NEPHROLOGY [address] | M, DO [address] [place] | | | | | [address] [facility] 100 | [place], [facility] 100 | | | | | [place], [place] | [place] J[place] | | | | | [address] | [address] | | | | | [phone] | | | +--------+ + + + [...] [place] | | | | | | [address] | | | | | | | | +--------+---------+ + + + documented as of this encounter Visit Diagnoses Not on filedocumented in this encounter"
--- OUTSIDE RECORDS SUMMARY | ~2020-04-03 | XMS | Encounter Summary ---
Demographics + + + | Address | [address] | | | [place] [address] | + + + | Home Phone [...] [place] | | | | | [address] | | + + + + + | Atif Delgadillo | ECON | [place] | | | | | [address] | | + + + + + | Caleb Dawn | ECON | Unknown | | + + + + + Care Team Providers + +------+ + | Care Gas Plant Technician Name | Role | Phone | + +------+ + | Anoop Moyer MD | PCP | | + +------+ + Encounter Details +--------+ + + + + | Date | Type | Department | Care Team | Description | +--------+ + + + + | 06/14/ | Orders Only | [facility] | Provider, | | | 2019 | | SYSTEM GENERIC OP | MD [address] | | | | | [address] | [address] | | | | | [address] [place], [place] | [place] [address] | | | | | [address] | | | | | | [phone] | | | +--------+ + + + [...] [place] | | | | | | [address] | | | | | | | | +--------+---------+ + + + documented as of this encounter Visit Diagnoses Not on filedocumented in this encounter"
--- OUTSIDE RECORDS SUMMARY | ~2020-04-03 | XMS | Encounter Summary ---
Demographics + + + | Address | [address] | | | [place] [address] | + + + | Home Phone [...] [place] | | | | | [address] | | + + + + + | Atif Delgadillo | ECON | [place], [place] | | | | | [address] | | + + + + + | Caleb Dawn | ECON | Unknown | | + + + + + Care Team Providers + +------+ + | Care Rn Nicu Name | Role | Phone | + [...] NEPHROLOGY [address] | M, DO [address] [place] | disease, stage III | | | | [address] [place] [address] | [place], [place] [address] | (moderate) (Primary | | | | [place], [place] | [place], [place] | Dx); Hyperlipidemia; | | | | [address] | [address] | Essential | | | | [phone] | | hypertension; Type | | | [...] | | | | | [place], [place] | | | | | | [address] | | | | | | | [...] manifestations, not stated as | | uncontrolled(250.40) ([facility]) 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
--- OUTSIDE RECORDS SUMMARY | ~2020-04-03 | XMS | Encounter Summary ---
Demographics + + + | Address | [address] | | | [place] [address] | + + + | Home Phone [...] [place] | | | | | [address] | | + + + + + | Atif Delgadillo | ECON | [place], [place] | | | | | [address] | | + + + + + | Caleb Dawn | ECON | Unknown | | + + + + + Care Team Providers + +------+ + | Care Signal Manager Name | Role | Phone | [...] NEPHROLOGY [address] | M, DO [address] | | | | | [address] [place] [address] | [place], [place] [address] | | | | | [place], [place] | [place] JON | | | | | [address] | [address] | | | | | [phone] | | | +--------+ + + + [...] | | | | | [place], [place] | | | | | | [address] | | | | | | | [...]
--- OUTSIDE RECORDS SUMMARY | ~2020-04-03 | XMS | Encounter Summary ---
Demographics + + + | Address | [address] | | | [place] [address] | + + + | Home Phone [...] [place] | | | | | [address] | | + + + + + | Atif Delgadillo | ECON | [place], [place] | | | | | [address] | | + + + + + | Caleb Dawn | ECON | Unknown | | + + + + + Care Team Providers + +------+ + | Care Design Sales Consultant Name | Role | Phone | [...] + + | 01/03/ | Office | [facility] | Logan Baca, | CHF (congestive | | 2013 | Visit | CARDIOLOGY [address] | [address] | heart failure) ([facility]) | | | | [place], | [place], | (Primary Dx); | | | | [place] [address] | [place] [address] | Hypertension | | | | [phone] | [phone] | | | | | | | [...] about one week 4. Follow up with [facility] in 2-4 weeks. documented in this [...] and hypertension. Patient was recently admitted to [facility] with a profound anemia with hemoglobin of [...] Education: N/A Occupational History [employer], [place], [place] Social History Main Topics Smoking status: [...] fraction A. Patient was recently admitted to [facility] with a profound anemia with hemoglobin of [...] 2. After discussion with Dr. 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 3.Check blood pressure x 2 weeks. Check minichem and CBC in 1 week. 4. Followup in 2-4 weeks. Portions of this report were transcribed using voice recognition software. Every effort wa s made to ensure accuracy; however, inadvertent computerized reliability technicians errors may be pre sent. documented in this encounter Plan of Treatment +--------+---------+ + + + | Date | Type | Specialty | Care Team | Description | +--------+---------+ + + + | 05/20/ | Office | Cardiology | Yumiko Del Valle, | | | 2019 | Visit | | MD Lupe TYLER | | | | | | [place] | | | | | | [address] | | | | | | | | +--------+---------+ + + + + +------+--------+ + + | Name | Type | Priori | Associated Diagnoses | Order Schedule | | | | ty | | | + +------+--------+ + + | Basic Metabolic | Lab | Routin | CHF (congestive | Expected: | | Panel | | e | heart failure) ([facility]) | 01/10/2014, Expires: | | | | | | 01/03/2015 | + +------+--------+ + + | CBC with | Lab | Routin | CHF (congestive | Expected: | | Differential | | e | heart failure) ([facility]) | 01/10/2014, Expires: | | | | | | 01/03/2015 | + +------+--------+ + + documented as of this encounter Visit Diagnoses + + | Diagnosis | + + | CHF (congestive heart failure) (HCC) - Primary Congestive heart failure, unspecified | + + | Hypertension Unspecified essential hypertension | + + documented in this encounter
--- OUTSIDE RECORDS SUMMARY | ~2020-04-03 | XMS | Encounter Summary ---
Demographics + + + | Address | [address] | | | [place] [address] | + + + | Home Phone [...] | Author | [facility] | | | and [place] | + + + | Organization | [facility] | | | and [place] | + + + | Address | Unknown | + + + | Phone | Unavailable | + + + Support + + + + + | Name | Relationship | Address | Phone | + + + + + | Hi Dawn | ECON | [place] | | | | | [address] | | + + + + + | Atif Delgadillo | ECON | [place] | | | | | [address] | | + + + + + | Caleb Dawn | ECON | Unknown | | + + + + + Care Team Providers + +------+ + | Care Housekeeping Department Worker Name | Role | Phone | [...] NEPHROLOGY [address] | M, DO [address] [place] | | | | | [address] [facility] 100 | [place], [place] [address] | | | | | [place], [place] | [place], [place] | | | | | [address] | [address] | | | | | [phone] | | | +--------+ + + + [...] [place] | | | | | | [address] | | | | | | | [...]
--- OUTSIDE RECORDS SUMMARY | ~2020-04-03 | XMS | Encounter Summary ---
Demographics + + + | Address | [address] | | | [place] [address] | + + + | Home Phone [...] [place] | | | | | [address] | | + + + + + | Atif Delgadillo | ECON | [place], [place] | | | | | [address] | | + + + + + | Caleb Dawn | ECON | Unknown | | + + + + + Care Team Providers + +------+ + | Care Supervisor Park Workers Name | Role | Phone | + [...] NEPHROLOGY [address] | M, DO [address] [place] | disease, stage III | | | | [address] [place] [address] | [place], [place] [address] | (moderate) (Primary | | | | [place], [place] | [place], [place] | Dx); Type 2 diabetes | | | | [address] | [address] | mellitus with stage | | | | [phone] | | 3 chronic kidney | | | | | | disease, unspecified | | | | | | care home insulin | | | | | | use status ([facility]); | | | | | | Hyperlipidemia, [...] | | | | | [place], [place] | | | | | | [address] | | | | | | | | +--------+---------+ + + + documented as of this encounter Visit Diagnoses + + | Diagnosis | + + | Chronic kidney disease, stage III (moderate) (HCC) - Primary Chronic kidney disease, | | Stage III (moderate) | + + | Type 2 diabetes mellitus with stage 3 chronic kidney disease, unspecified terminologist | | insulin use status | + + | Hyperlipidemia, mixed Mixed hyperlipidemia | + + documented in this encounter"
--- OUTSIDE RECORDS SUMMARY | ~2020-04-03 | XMS | Encounter Summary ---
Demographics + + + | Address | [address] | | | [place] [address] | + + + | Home Phone | | + + + | Preferred Language | Unknown | + + + | Marital Status | Single | + + + | Temple Affiliation | Unknown | + + + | Race | Unknown | + + + | Ethnic Group | Unknown | + + + Author + + + | Author | [facility] | | | and [place] | + + + | Organization | [facility] | | | and [place] | + + + | Address | Unknown | + + + | Phone | Unavailable | + + + Support + + + + + | Name | Relationship | Address | Phone | + + + + + | Hi Dawn | ECON | [place] | | | | | [address] | | + + + + + | Atif Delgadillo | ECON | [place] | | | | | [address] | | + + + + + | Caleb Dawn | ECON | Unknown | | + + + + + Care Team Providers + +------+ + | Care Nail Artist Name | Role | Phone | [...] + + | 04/05/ | Telephone | [facility] | Freddy Sanchez | Medication Follow-up | | 2019 | | NEPHROLOGY [address] | M, DO [address] [place] | | | | | [address] [facility] [address] | [place], [place] [address] | | | | | [place], [place] | [place] J[place] | | | | | [address] | [id number] | | | | | [phone] | | | +--------+ + + + [...] [place] | | | | | | [address] | | | | | | | | +--------+---------+ + + + documented as of this encounter Visit Diagnoses Not on filedocumented in this encounter"
--- OUTSIDE RECORDS SUMMARY | ~2020-04-03 | XMS | Encounter Summary ---
Demographics + + + | Address | [address] | | | [place] [address] | + + + | Home Phone [...] [place] | | | | | [address] | | + + + + + | Atif Delgadillo | ECON | [place], [place] | | | | | [address] | | + + + + + | Caleb Dawn | ECON | Unknown | | + + + + + Care Team Providers + +------+ + | Care Mail Room Clerk Name | Role | Phone | [...] | unspecified | MD [address] | [address] [place] | | | | | type | [place] | [place] | | | | | diabetes | [place] [address] | [address] [place] | | | | | mellitus | [place], | [place], [place] | | | | | with renal | [place] | [address] Phone: | | | | | manifestatio | [address] | [phone] | | | | | ns, not | Phone: | Fax: | | | | | stated as | [phone] | [phone] | | | | | uncontrolled | Fax: | | | | | | [phone]) | [phone] | | | | | | (HCC) [...] | | [address] [place] | [place], [place] [address] | diabetes mellitus | | | | [place] | [place] | with renal | | | | [address] | [address] | manifestations, not | | | | [phone] | | stated as | | | [...] Addendum: After reviewing recent Lipid guidelines in [facility], it suggests starting at 40 mg of [...] 11/27/2014 PHOSEX 3.3 11/27/2014 PTHEX 147 11/27/2014 [id number] 6.3* 07/25/2014 Lab Results Component Value Date [...] him back in 4 mo. at the [facility] [place], [place]. He will have a CBC, CMP, [...] | | | | | [place], [place] | | | | | | [address] | | | | | | | [...]
--- OUTSIDE RECORDS SUMMARY | ~2020-04-03 | XMS | Encounter Summary ---
Demographics + + + | Address | [address] | | | [place] [address] | + + + | Home Phone | | + + + | Preferred Language | Unknown | + + + | Marital Status | Single | + + + | Hindu Affiliation | Unknown | + + + | Race | Unknown | + + + | Ethnic Group | Unknown | + + + Author + + + | Author | [facility] | | | and [place] | + + + | Organization | [facility] | | | and [place] | + + + | Address | Unknown | + + + | Phone | Unavailable | + + + Support + + + + + | Name | Relationship | Address | Phone | + + + + + | Hi Dawn | ECON | [place] | | | | | [address] | | + + + + + | Atif Delgadillo | ECON | [place], [place] | | | | | [address] | | + + + + + | Caleb Dawn | ECON | Unknown | | + + + + + Care Team Providers + +------+ + | Care Medical Anthropologist Name | Role | Phone | + +------+ + PCP | Unavailable | + +------+ + Encounter Details +--------+ + + + + | Date | Type | Department | Care Team | Description | +--------+ + + + + | 07/11/ | Abstract | [facility] | Freddy Sanchez | | | 2017 | | NEPHROLOGY [address] | M, DO [address] [place] | | | | | [address] [place] | [place], [place] [address] | | | | | [place], [place] | [place] J[place] | | | | | [address] | [address] | | | | | [phone] | | | +--------+ + + + [...] 8:23 AM PDTOutside record: Progress notes from Qiuque delarosa MD, dos: 05/29/17. Sent to scan. [...] [place] | | | | | | [address] | | | | | | | | +--------+---------+ + + + documented as of this encounter Visit Diagnoses Not on filedocumented in this encounter"
--- OUTSIDE RECORDS SUMMARY | ~2020-04-03 | XMS | Encounter Summary ---
Demographics + + + | Address | [address] | | | [place] [address] | + + + | Home Phone [...] [place] | | | | | [address] | | + + + + + | Atif Delgadillo | ECON | [place] | | | | | [address] | | + + + + + | Caleb Dawn | ECON | Unknown | | + + + + + Care Team Providers + +------+ + | Care Insole Bottom Filler Name | Role | Phone | + [...] | [address] [place] | [address] [place] | (moderate) (HCC) | | | | [place] | [address] [place] | (Primary Dx); Type 2 | | | | [address] | [address] | diabetes mellitus | | | | [phone] | | with stage 3 chronic | | | | | | kidney disease, | | | | | | unspecified whether | | | | | | long-term insulin | | | | | | use ([facility]); | | | | | | Hyperlipidemia, [...] nephrology appt on 12/31/18 sent to [facility]. documented in this en counter Plan of Treatment +--------+---------+ + + + | Date | Type | Specialty | Care Team | Description | +--------+---------+ + + + | 05/20/ | Office | Cardiology | Yumiko Del Valle, | | | 2019 | Visit | | MD Lupe TYLER | | | | | | [place], [place] | | | | | | [address] | | | | | | | [...]
--- OUTSIDE RECORDS SUMMARY | ~2020-04-03 | XMS | Encounter Summary ---
Demographics + + + | Address | [address] | | | [place] [address] | + + + | Home Phone [...] [place] | | | | | [address] | | + + + + + | Atif Delgadillo | ECON | [place], [place] | | | | | [address] | | + + + + + | Caleb Dawn | ECON | Unknown | | + + + + + Care Team Providers + +------+ + | Care Rv Servicer Name | Role | Phone | + [...] II or | Quique [place], | Freddy Bahgat DO | | | | | unspecified | MD [address] | [address] | | | | | type | [place] | [place] | | | | | diabetes | [place] [address] | [address] [place] | | | | | mellitus | [place], | [place], [place] | | | | | with renal | [place] | [address] Phone: | | | | | manifestatio | [address] | [phone] | | | | | ns, not | Phone: | Fax: | | | | | stated as | [phone] | [phone] | | | | | uncontrolled | Fax: | | | | | | [phone]) | [phone] | | | | | | (HCC) [...] | (moderate) (HCC) | | | | [place], [place] | [place] | (Primary Dx); | | | | [address] | [address] | Essential | | | | [phone] | | hypertension; | | | | [...] 04/16/2015 PHOSEX 3.2 04/16/2015 PTHEX 112.9 04/16/2015 VJC9ECA 6.3* 07/25/2014 Lab Results Component Value Date [...] him back in 6 mo. at the [facility]. He will have a CBC, CMP, [...] | | | | | [place] | | | | | | [id number] | | | | | | | | +--------+---------+ + + + documented as of this encounter Visit Diagnoses + + | Diagnosis | + + | Chronic kidney disease, stage III (moderate) ([facility]) - Primary Chronic kidney disease, | | Stage III (moderate) | + + | Essential hypertension Unspecified essential hypertension | + + | Type II or unspecified type diabetes mellitus with renal manifestations, not stated as | | uncontrolled(250.40) ([facility]) 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
--- OUTSIDE RECORDS SUMMARY | ~2020-04-03 | XMS | Encounter Summary ---
Demographics + + + | Address | [address] | | | [place] [address] | + + + | Home Phone [...] [place] | | | | | [address] | | + + + + + | Atif Delgadillo | ECON | [place] | | | | | [address] | | + + + + + | Caleb Dawn | ECON | Unknown | | + + + + + Care Team Providers + +------+ + | Care Fern Cutter Name | Role | Phone | [...] NEPHROLOGY [address] | M, DO [address] [place] | disease, stage III | | | | [address] | [place], [place] [address] | (moderate) (HCC) | | | | [place], [place] | [place] | (Primary Dx); Type 2 | | | | [address] | [address] | diabetes mellitus | | | | [phone] | | with stage 3 chronic | | | | | | kidney disease, | | | | | | unspecified whether | | | | | | penitentiary insulin | | | | | | use ([facility]); | | | | | | Hyperlipidemia, [...] nephrology appt on 03/10/20 sent to In [facility]. documented in this en counter Plan of Treatment +--------+---------+ + + + | Date | Type | Specialty | Care Team | Description | +--------+---------+ + + + | 05/20/ | Office | Cardiology | Yumiko Del Valle, | | | 2019 | Visit | | MD Lupe YTLER | | | | | | [place] | | | | | | [address] | | | | | | | [...] 02/14/2020 | | | | | (moderate) ([facility]) | until 02/14/2021 | | | | | Type 2 diabetes | | | | | | mellitus with stage | | | | | | 3 chronic kidney | | | | | | disease, unspecified | | | | | | whether keno terminal operator | | | | | | insulin use ([facility]) | | | | | | Hyperlipidemia, | | | | | | mixed | | + +------+--------+ + + | Comprehensive | Lab | Routin | Chronic kidney | 1 Occurrences | | Metabolic Panel | | e | disease, stage III | starting 02/14/2020 | | | | | (moderate) ([facility]) | until 02/14/2021 | | | | | Type 2 diabetes | | | | | | mellitus with stage | | | | | | 3 chronic kidney | | | | | | disease, unspecified | | | | | | whether penitentiary | | | | | | insulin use ([facility]) | | | | | | Hyperlipidemia, | | | | | | mixed | | + +------+--------+ + + | Phosphorus | Lab | Routin | Chronic kidney | 1 Occurrences | | | | e | disease, stage III | starting 02/14/2020 | | | | | (moderate) ([facility]) | until 02/14/2021 | | | | | Type 2 diabetes | | | | | | mellitus with stage | | | | | | 3 chronic kidney | | | | | | disease, unspecified | | | | | | whether penitentiary | | | | | | insulin use ([facility]) | | | | | | Hyperlipidemia, | | | | | | mixed | | + +------+--------+ + + | Vitamin D, | Lab | Routin | Chronic kidney | 1 Occurrences | | Deficiency Screen | | e | disease, stage III | starting 02/14/2020 | | (25-Hydroxy) | | | (moderate) ([facility]) | until 02/14/2021 | | | | | Type 2 diabetes | | | | | | mellitus with stage | | | | | | 3 chronic kidney | | | | | | disease, unspecified | | | | | | whether keno terminal operator | | | | | | insulin use ([facility]) | | | | | | Hyperlipidemia, | | | | | | mixed | | + +------+--------+ + + | Parathyroid Hormone, | Lab | Routin | Chronic kidney | 1 Occurrences | | Intact | | e | disease, stage III | starting 02/14/2020 | | | | | (moderate) ([facility]) | until 02/14/2021 | | | | | Type 2 diabetes | | | | | | mellitus with stage | | | | | | 3 chronic kidney | | | | | | disease, unspecified | | | | | | whether keno terminal operator | | | | | | insulin use ([facility]) | | | | | | Hyperlipidemia, | | | | | | mixed | | + +------+--------+ + + | Lipid Profile | Lab | Routin | Chronic kidney | 1 Occurrences | | | | e | disease, stage III | starting 02/14/2020 | | | | | (moderate) ([facility]) | until 02/13/2021 | | | | | Type 2 diabetes | | | | | | mellitus with stage | | | | | | 3 chronic kidney | | | | | | disease, unspecified | | | | | | whether keno terminal operator | | | | | | insulin use ([facility]) | | | | | | Hyperlipidemia, | | | | | | mixed | | + +------+--------+ + + | Hemoglobin A1C | Lab | Routin | Chronic kidney | 1 Occurrences | | | | e | disease, stage III | starting 02/14/2020 | | | | | (moderate) ([facility]) | until 02/13/2021 | | | | | Type 2 diabetes | | | | | | mellitus with stage | | | | | | 3 chronic kidney | | | | | | disease, unspecified | | | | | | whether keno terminal operator | | | | | | insulin use ([facility]) | | | | | | Hyperlipidemia, | | | | | | mixed | | + +------+--------+ + + | Creatinine | Lab | Routin | Chronic kidney | 1 Occurrences | | Clearance, Result | | e | disease, stage III | starting 02/14/2020 | | | | | (moderate) ([facility]) | until 02/14/2021 | | | | | Type 2 diabetes | | | | | | mellitus with stage | | | | | | 3 chronic kidney | | | | | | disease, unspecified | | | | | | whether penitentiary | | | | | | insulin [...] | | | | | | whether keno terminal operator | | | | | | insulin [...]
--- OUTSIDE RECORDS SUMMARY | ~2020-04-03 | XMS | Encounter Summary ---
Demographics + + + | Address | [address] | | | [place] [address] | + + + | Home Phone [...] [place] | | | | | [address] | | + + + + + | Atif Delgadillo | ECON | [place] | | | | | [address] | | + + + + + | Caleb Dawn | ECON | Unknown | | + + + + + Care Team Providers + +------+ + | Care Maintenance Team Leader Name | Role | Phone | + [...] NEPHROLOGY [address] | M, DO [address] [place] | | | | | [address] | [place], [place] [address] | | | | | [place], [place] | [place], [place] | | | | | [address] | [address] | | | | | [phone] | | | +--------+ + + + [...] [place] | | | | | | [address] | | | | | | | [...]
--- OUTSIDE RECORDS SUMMARY | ~2020-04-03 | XMS | Encounter Summary ---
Demographics + + + | Address | [address] | | | [place] [address] | + + + | Home Phone [...] [place] | | | | | [address] | | + + + + + | Atif Delgadillo | ECON | [place], [place] | | | | | [address] | | + + + + + | Caleb Dawn | ECON | Unknown | | + + + + + Care Team Providers + +------+ + | Care Mechanical Intern Name | Role | Phone | [...] | unspecified | MD [address] | [address] | | | | | type | [place] | Caitlyn [place] | | | | | diabetes | [place] | [place] | | | | | mellitus | [place], | [place], [place] | | | | | with renal | [place] | [address] Phone: | | | | | manifestatio | [address] | [phone] | | | | | ns, not | Phone: | Fax: | | | | | stated as | [phone] | [phone] | | | | | uncontrolled | Fax: | | | | | | [phone]) | [phone] | | | | | | (HCC) [...] | | [address] | [place], [place] [address] | diabetes mellitus | | | | MICAH Jon | [place] | with renal | | | | [address] | [address] | manifestations, not | | | | [phone] | | stated as | | | [...] 09/17/2014 GLUEX 172 09/17/2014 PHOSEX 3.2 09/17/2014 [id number] 6.3* 07/25/2014 Lab Results Component Value Date [...] [place] | | | | | | [id number] | | | | | | | [...]
--- OUTSIDE RECORDS SUMMARY | ~2020-04-03 | XMS | Encounter Summary ---
Demographics + + + | Address | [address] | | | [place] [address] | + + + | Home Phone [...] [place] | | | | | [address] | | + + + + + | Atif Delgadillo | ECON | [place], [place] | | | | | [address] | | + + + + + | Caleb Dawn | ECON | Unknown | | + + + + + Care Team Providers + +------+ + | Care Visiting Nurse Name | Role | Phone | + +------+ + PCP | Unavailable | + +------+ + Encounter Details +--------+ + + + + | Date | Type | Department | Care Team | Description | +--------+ + + + + | 02/01/ | Hospital | [facility] | | | | 2006 - | Encounter | MED CTR XRAY [address] | | | | | | [place] | | | | 02/17/ | | [place] [address] | | | | 2006 | | [phone] | | | +--------+ + + + [...] [place] | | | | | | [address] | | | | | | | | +--------+---------+ + + + documented as of this encounter Visit Diagnoses Not on filedocumented in this encounter"
--- OUTSIDE RECORDS SUMMARY | ~2020-04-03 | XMS | Encounter Summary ---
Demographics + + + | Address | [address] | | | [place] [address] | + + + | Home Phone [...] [place] | | | | | [address] | | + + + + + | Atif Delgadillo | ECON | [place], [place] | | | | | [address] | | + + + + + | Caleb Dawn | ECON | Unknown | | + + + + + Care Team Providers + +------+ + | Care Retail Merchandising Specialist Name | Role | Phone | [...] NEPHROLOGY [address] | M, DO [address] [place] | disease, stage III | | | | [address] | [place], [place] [address] | (moderate) (Primary | | | | [place], [place] | [place], [place] | Dx); Type 2 diabetes | | | | [address] | [address] | mellitus with stage | | | | [phone] | | 3 chronic kidney | | [...] | 05/20/ | Office | Cardiology | Tripp Del Vallerhoda, | | | 2019 | Visit | | MD Lupe TYLRE | | | | | | [place], [place] | | | | | | [address] | | | | | | | [...]
--- OUTSIDE RECORDS SUMMARY | ~2020-04-03 | XMS | Encounter Summary ---
Demographics + + + | Address | [address] | | | [place] [address] | + + + | Home Phone [...] [place] | | | | | [address] | | + + + + + | Atif Delgadillo | ECON | [place], [place] | | | | | [address] | | + + + + + | Caleb Dawn | ECON | Unknown | | + + + + + Care Team Providers + +------+ + | Care Soil Chemist Name | Role | Phone | + +------+ + PCP | Unavailable | + +------+ + Encounter Details +--------+ + + + + | Date | Type | Department | Care Team | Description | +--------+ + + + + | 04/09/ | Hospital | [facility] | Saad Ivan | | | 2006 | Encounter | MED CTR SLEEP | MD Tomás [address] | | | | | [place] [address] | [place] [facility] | | | | | [place] | [place] [address] | | | | | [address] | [phone] | | | | | [phone] | | | +--------+ + + + [...] [place] | | | | | | [address] | | | | | | | | +--------+---------+ + + + documented as of this encounter Visit Diagnoses Not on filedocumented in this encounter"
--- OUTSIDE RECORDS SUMMARY | ~2020-04-03 | XMS | Encounter Summary ---
Demographics + + + | Address | [address] | | | [place] [address] | + + + | Home Phone [...] [place] | | | | | [address] | | + + + + + | Atif Delgadillo | ECON | [place] | | | | | [address] | | + + + + + | Caleb Dawn | ECON | Unknown | | + + + + + Care Team Providers + +------+ + | Care Painter Ordnance Name | Role | Phone | + [...] NEPHROLOGY [address] | M, DO [address] [place] | | | | | [address] [facility] | [place], [place] [address] | | | | | [place], [place] | [place], [place] | | | | | [address] | [address] | | | | | [phone] | | | +--------+ + + + [...] [place] | | | | | | [address] | | | | | | | [...]
--- OUTSIDE RECORDS SUMMARY | ~2020-04-03 | XMS | Encounter Summary ---
Demographics + + + | Address | [address] | | | [place] [address] | + + + | Home Phone [...] [place] | | | | | [address] | | + + + + + | Atif Delgadillo | ECON | [place], [place] | | | | | [address] | | + + + + + | Caleb Dawn | ECON | Unknown | | + + + + + Care Team Providers + +------+ + | Care Engraver Seals Name | Role | Phone | + [...] NEPHROLOGY [address] | M, DO [address] [place] | | | | | [address] | [place], [place] [address] | | | | | [place], [place] | [place] | | | | | [address] | [address] | | | | | [phone] | | | +--------+ + + + [...] 05/20/ | Office | Cardiology | Yumiko Dle Valle, | | | 2019 | Visit | | MD Lupe TYLER | | | | | | [place] | | | | | | [address] | | | | | | | | +--------+---------+ + + + documented as of this encounter Visit Diagnoses Not on filedocumented in this encounter"
--- OUTSIDE RECORDS SUMMARY | ~2020-04-03 | XMS | Encounter Summary ---
Demographics + + + | Address | [address] | | | [place] [address] | + + + | Home Phone [...] [place] | | | | | [address] | | + + + + + | Atif Delgadillo | ECON | [place], [place] | | | | | [address] | | + + + + + | Caleb Dawn | ECON | Unknown | | + + + + + Care Team Providers + +------+ + | Care Scrub Nurse Name | Role | Phone | [...] NEPHROLOGY [address] | M, DO [address] [place] | | | | | [address] | [place], [place] [address] | | | | | [place], [place] | [place] JON | | | | | [address] | [address] | | | | | [phone] | | | +--------+ + + + [...] | | | | | [place], [place] | | | | | | [address] | | | | | | | [...]
--- OUTSIDE RECORDS SUMMARY | ~2020-04-03 | XMS | Encounter Summary ---
Demographics + + + | Address | [address] | | | [place] [address] | + + + | Home Phone [...] [place] | | | | | [address] | | + + + + + | Atif Delgadillo | ECON | [place] | | | | | [address] | | + + + + + | Caleb Dawn | ECON | Unknown | | + + + + + Care Team Providers + +------+ + | Care Decorator Lighting Fixtures Name | Role | Phone | + [...] [address] | M, DO [address] [place] | disease, stage III | | | | [address] | [place], [place] [address] | (moderate) (HCC) | | | | [place] Jon | [place] | (Primary Dx); Type 2 | | | | [address] | [address] | diabetes mellitus | | | | [phone] | | with stage 3 chronic | | | | | | kidney disease, | | | | | | unspecified whether | | | | | | group home insulin | | | | | [...] | | | | | | [place] [facility] | | | | | | [address] | | | | | | | [...]
--- OUTSIDE RECORDS SUMMARY | ~2020-04-03 | XMS | Encounter Summary ---
Demographics + + + | Address | [address] | | | [place] [address] | + + + | Home Phone [...] [place] | | | | | [address] | | + + + + + | Atif Delgadillo | ECON | [place], [place] | | | | | [address] | | + + + + + | Caleb Dawn | ECON | Unknown | | + + + + + Care Team Providers + +------+ + | Care Program Director Air Talent Name | Role | Phone | + [...] NEPHROLOGY [address] | M, DO [address] [place] | disease, stage III | | | | [address] | [place], [place] [address] | (moderate) (Primary | | | | [place], [place] | [place], [place] | Dx); Hyperlipidemia; | | | | [address] | [address] | Essential | | | | [phone] | | hypertension; Type | | | [...] | | | | | [place], [place] | | | | | | [address] | | | | | | | [...] manifestations, not stated as | | uncontrolled(250.40) ([facility]) 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
--- OUTSIDE RECORDS SUMMARY | ~2020-04-03 | XMS | Encounter Summary ---
Demographics + + + | Address | [address] | | | [place] [address] | + + + | Home Phone [...] [place] | | | | | [address] | | + + + + + | Atif Delgadillo | ECON | [place] | | | | | [address] | | + + + + + | Caleb Dawn | ECON | Unknown | | + + + + + Care Team Providers + +------+ + | Care Band Maker Name | Role | Phone | [...] | kidney | MD [address] | [address] | | | | | disease, | [place] | [place], [place] | | | | | stage 3 | [place] | 100 [place] | | | | | (moderate) | [place], | [place] | | | | | (HCC) | [place] | [address] Phone: | | | | | Hypertension | [address] | [phone] | | | | | , essential | Phone: | Fax: | | | | | Type 2 | [phone] | [phone] | | | | | diabetes | Fax: | | | | | | mellitus | [phone] | | | | | | with [...] NEPHROLOGY [address] | M, DO [address] [place] | disease, stage III | | | | [address] | [place], [place] [address] | (moderate) (HCC) | | | | MICAH Jon | [place] | (Primary Dx); Type 2 | | | | [address] | [address] | diabetes mellitus | | | | [phone] | | with stage 3 chronic | | | | | | kidney disease, | | | | | | unspecified 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 documented in this encounter Progress Notes [...] Take 1,000 mg by mouth Da la. [place]-3 Fatty Acids (FISH OIL) 1200 MG CAPS [...] PHOSEX 3.2 09/18/2019 PTHEX 156.2 (A) 09/18/2019 [id number] 5.7 06/20/2018 Lab Results Component Value Date [...] blood pressure. 2. He states that his Clinical Technologist has a fingerstick HbA1c which showed his [...] 6 months at the [facility] [place]. He will have a CBC, CMP, PO4, HbA1c, iPTH, lipid profile, and 24 Hour urine one week prio r to that. Electronically signed by Freddy Sanchez DO. 09/20/19 9:52 CC: Anoop Vargas MD, [facility] Yumiko Del Valle MD, FACC documented in this encounter Plan of Treatment +--------+---------+ + + + | Date | Type | Specialty | Care Team | Description | +--------+---------+ + + + | 05/20/ | Office | Cardiology | Yumiko Del Valle, | | | 2019 | Visit | | MD Lupe TYLER | | | | | | [place] | | | | | | [address] | | | | | | | [...] this encounter Results LABS - EXTERNAL SCAN (03/11/2020 12:00 AM PDT) + + + | Narrative | Performed At | + + + | Ordered by an | | | unspecified provider. | | + + + LABS - EXTERNAL SCAN (07/26/2019 12:00 AM [...]
--- OUTSIDE RECORDS SUMMARY | ~2020-04-03 | XMS | Encounter Summary ---
Demographics + + + | Address | [address] | | | [place] [address] | + + + | Home Phone [...] [place] | | | | | [address] | | + + + + + | Atif Delgadillo | ECON | [place], [place] | | | | | [address] | | + + + + + | Caleb Dawn | ECON | Unknown | | + + + + + Care Team Providers + +------+ + | Care Residential Carpenter Name | Role | Phone | + [...] + | 12/25/ | Clinical | [facility] | Freddy Sanchez | Anemia in chronic | | 2013 | Support | NEPHROLOGY [address] | M, DO [address] [place] | kidney | | | | [address] [facility] | [place], [facility] 100 | disease(285.21) | | | | [place] Jon | [place] | (Primary Dx) | | | | [address] | [address] | | | | | [phone] | | | +--------+ + + + [...] | | | | | [place] | | | | | | [address] | | | | | | | [...]
--- OUTSIDE RECORDS SUMMARY | ~2020-04-03 | XMS | Encounter Summary ---
Demographics + + + | Address | [address] | | | [place] [address] | + + + | Home Phone [...] [place] | | | | | [address] | | + + + + + | Atif Delgadillo | ECON | [place], [place] | | | | | [address] | | + + + + + | Caleb Dawn | ECON | Unknown | | + + + + + Care Team Providers + +------+ + | Care Shipping Technician Name | Role | Phone | [...] NEPHROLOGY [address] | M, DO [address] [place] | | | | | [address] | [place], [place] [address] | | | | | [place], [place] | [place] JON | | | | | [address] | [address] | | | | | [phone] | | | +--------+ + + + [...] | | | | [place], [place] | | | | | | [address] | | | | | | | [...] [address] | MICAH Jon | [phone] | | [facility] | | [address] | | | - LABORATORY | | [...]
--- OUTSIDE RECORDS SUMMARY | ~2020-04-03 | XMS | Encounter Summary ---
Demographics + + + | Address | [address] | | | [place] [address] | + + + | Home Phone [...] [place] | | | | | [address] | | + + + + + | Atif Delgadillo | ECON | [place], [place] | | | | | [address] | | + + + + + | Caleb Dawn | ECON | Unknown | | + + + + + Care Team Providers + +------+ + | Care Interline Clerk Name | Role | Phone | [...] + + | 10/29/ | [facility] | [facility] | Timothy, | ASCVD | | 2015 | Visit | CARDIOLOGY [address] | ELLA Morton [address] | (arteriosclerotic | | | | [place], | [place], | cardiovascular | | | | [place] [address] | [place] [address] | disease) (Primary | | | | [phone] | [phone] | Dx); Hypertension, | | | | [...] (ELOCON) 0.1 % cream Apply topically Daily. [place]-3 Fatty Acids (FISH OIL) 300 MG CAPS [...] PLTEX 131* 10/22/2015 I reviewed records from [facility] for office visit on 11/06/2015. ASSESSMENT: 1. Congestive heart failure with preserved left ventricular ejection fraction A. Patient was recently admitted to [facility] with a profound anemia with hemoglobin of [...] this chart may have been created with [employer] voice recognition software. Occasi onal wrong-word or [...] [place] | | | | | | [address] | | | | | | | [...] MD | | | | | | ([id number]) on 10/29/2015 | | | | | [...]
--- OUTSIDE RECORDS SUMMARY | ~2020-04-03 | XMS | Encounter Summary ---
Demographics + + + | Address | [address] | | | [place] [address] | + + + | Home Phone [...] [place] | | | | | [address] | | + + + + + | Atif Delgadillo | ECON | [place], [place] | | | | | [address] | | + + + + + | Caleb Dawn | ECON | Unknown | | + + + + + Care Team Providers + +------+ + | Care Risk Control Representative Name | Role | Phone | [...] NEPHROLOGY [address] | MD [address] | (Primary Dx) | | | | [address] | [place] [address] [place] | | | | | [place] | [place] [address] | | | | | [address] | [phone] | | | | | [phone] | | | +--------+ + + + [...] [place] | | | | | | [address] | | | | | | | | +--------+---------+ + + + documented as of this encounter Visit Diagnoses + + | Diagnosis | + + | Hypertension - Primary Unspecified essential hypertension | + + documented in this encounter"
--- OUTSIDE RECORDS SUMMARY | ~2020-04-03 | XMS | Encounter Summary ---
Demographics + + + | Address | [address] | | | [place] [address] | + + + | Home Phone [...] [place] | | | | | [address] | | + + + + + | Atif Delgadillo | ECON | [place] | | | | | [address] | | + + + + + | Caleb Dawn | ECON | Unknown | | + + + + + Care Team Providers + +------+ + | Care Resident Care Aid Name | Role | Phone | + [...] NEPHROLOGY [address] | M, DO [address] [place] | | | | | [address] [facility] 100 | [place], [facility] 100 | | | | | [place], [place] | [place]AH JON | | | | | [address] | [address] | | | | | [phone] | | | +--------+--------+ + + + [...] | | | | | [place], [place] | | | | | | [address] | | | | | | | [...]
--- OUTSIDE RECORDS SUMMARY | ~2020-04-03 | XMS | Encounter Summary ---
Demographics + + + | Address | [address] | | | [place] [address] | + + + | Home Phone [...] [place] | | | | | [address] | | + + + + + | Atif Delgadillo | ECON | [place], [place] | | | | | [address] | | + + + + + | Caleb Dawn | ECON | Unknown | | + + + + + Care Team Providers + +------+ + | Care Kitchen And Counter Worker Name | Role | Phone | [...] | unspecified | MD [address] | [address] [place] | | | | | type | [place] | [place] | | | | | diabetes | [place] | 100 [place] | | | | | mellitus | [place], | [place], [place] | | | | | with renal | [place] | [address] Phone: | | | | | manifestatio | [address] | [phone] | | | | | ns, not | Phone: | Fax: | | | | | stated as | [phone] | [phone] | | | | | uncontrolled | Fax: | | | | | | (250.40) | [phone] | | | | | | (HCC) [...] | | [address] | [place], [place] [address] | disease with chronic | | | | [place] Jon | [place] | kidney disease | | | | [address] | [address] | stage I through | | | | [phone] | | stage IV, or | | [...] losartan, and was seen by his Cardiology, RADIATION CONTROL TECHNICIAN, Selene Betancourt, who decreased it to 25 [...] 05/15/2014 PHOS 3.5 05/15/2014 PTH 112.9 05/15/2014 CZB6YOE 5.2 02/12/2014 Lab Results Component Value Date [...] continue the omeprazole 40 mg, QD , gaggerman and DC the carafate. He is agreeable to this. 5. Will plan to see him back on 09/22/14, at the [facility], [place]. He will have a CBC, CMP, PO4, [...] | 05/20/ | Office | Cardiology | Jinnyerasmo Tripprhoda, | | | 2019 | Visit | | MD Lupe TYLER | | | | | | [place], [place] | | | | | | [address] | | | | | | | [...]
--- OUTSIDE RECORDS SUMMARY | ~2020-04-03 | XMS | Encounter Summary ---
Demographics + + + | Address | [address] | | | [place] [address] | + + + | Home Phone [...] [place] | | | | | [address] | | + + + + + | Atif Delgadillo | ECON | [place], [place] | | | | | [address] | | + + + + + | Caleb Dawn | ECON | Unknown | | + + + + + Care Team Providers + +------+ + | Care Interior Assemblies Developer Prover Name | Role | Phone | + [...] + + | 10/02/ | Telephone | [facility] | Freddy Sanchez | Lab Order | | 2016 | | NEPHROLOGY [address] | M, DO [address] [place] | | | | | [address] [facility] 100 | [place], [facility] 100 | | | | | [place], [place] | [place], [place] | | | | | [address] | [address] | | | | | [phone] | | | +--------+ + + + [...] [place] | | | | | | [address] | | | | | | | [...]
--- OUTSIDE RECORDS SUMMARY | ~2020-04-03 | XMS | Encounter Summary ---
Demographics + + + | Address | [address] | | | [place] [address] | + + + | Home Phone [...] [place] | | | | | [address] | | + + + + + | Atif Delgadillo | ECON | [place], [place] | | | | | [address] | | + + + + + | Caleb Dawn | ECON | Unknown | | + + + + + Care Team Providers + +------+ + | Care Promotion Manager Name | Role | Phone | + +------+ + PCP | Unavailable | + +------+ + Encounter Details +--------+ + + + + | Date | Type | Department | Care Team | Description | +--------+ + + + + | 03/08/ | Abstract | [facility] | Freddy Sanchez | | | 2017 | | NEPHROLOGY [address] | M, DO [address] [place] | | | | | [address] | [place], [place] [address] | | | | | [place], [place] | [place] JON | | | | | [address] | [address] | | | | | [phone] | | | +--------+ + + + [...] [place] | | | | | | [address] | | | | | | | | +--------+---------+ + + + documented as of this encounter Visit Diagnoses Not on filedocumented in this encounter"
--- OUTSIDE RECORDS SUMMARY | ~2020-04-03 | XMS | Encounter Summary ---
Demographics + + + | Address | [address] | | | [place] [address] | + + + | Home Phone [...] [place] | | | | | [address] | | + + + + + | Atif Delgadillo | ECON | [place], [place] | | | | | [address] | | + + + + + | Caleb Dawn | ECON | Unknown | | + + + + + Care Team Providers + +------+ + | Care Health Assistant Name | Role | Phone | [...] + | 12/25/ | Clinical | [facility] | Freddy Sanchez | Anemia in chronic | | 2013 | Support | NEPHROLOGY [address] | M, DO [address] [place] | kidney | | | | [address] [facility] | [place], [facility] 100 | disease(285.21) | | | | MIC[place] Jon | [place] | (Primary Dx) | | | | [address] | [address] | | | | | [phone] | | | +--------+ + + + [...] | | | | | [place] | | | | | | [address] | | | | | | | [...]
--- OUTSIDE RECORDS SUMMARY | ~2020-04-03 | XMS | Encounter Summary ---
Demographics + + + | Address | [address] | | | [place] [address] | + + + | Home Phone [...] [place] | | | | | [address] | | + + + + + | Atif Delgadillo | ECON | [place], [place] | | | | | [address] | | + + + + + | Caleb Dawn | ECON | Unknown | | + + + + + Care Team Providers + +------+ + | Care Barrel Bung Remover And Dumper Name | Role | Phone | + [...] | kidney | MD [address] | [address] [place] | | | | | disease, | [place] | [place], [place] | | | | | stage 3 | [place] | 100 [place] | | | | | (moderate) | [place], | [place] | | | | | (HCC) | [place] | [address] Phone: | | | | | Hypertension | [address] | [phone] | | | | | , essential | Phone: | Fax: | | | | | Type 2 | [phone] | [phone] | | | | | diabetes | Fax: | | | | | | mellitus | [phone] | | | | | | with stage 3 | | | | | | | chronic | | | | | | | kidney | | | | | | | disease | | | | | | | (HCC) | | | | | | | Procedures | | | | | | | MD OFFICE | | | | | | [...] | | [address] | [place], [place] [address] | (moderate) (Primary | | | | [place] Jon | [place] | Dx); Secondary | | | | [address] | [address] | hyperparathyroidism | | | | [phone] | | of renal origin | | [...] (ELOCON) 0.1 % cream Apply topically Daily. [place]-3 Fatty Acids (FISH OIL) 1200 MG CAPS Take 1,200 mg by mouth 2 times daily. [DISCONTINUED] [place]-3 Fatty Acids (FISH OIL) 300 MG CAPS [...] 01/05/2017 PHOSEX 3.7 01/05/2017 PTHEX 135.7* 01/05/2017 QVO1PSI 6.5 01/05/2017 Lab Results Component Value Date [...] 6 mo. at the [facility] Clinic, at [place], [place]. He wi ll have a CBC, CMP, P04, PTH, CPK, HbA1c, lipid profile and 24-hour urine collection one w tulalip prior to that. : Hema Gregory MD, [place], [place] documented in th is encounter Plan [...] [place] | | | | | | [address] | | | | | | | [...]
--- OUTSIDE RECORDS SUMMARY | ~2020-04-03 | XMS | Encounter Summary ---
Demographics + + + | Address | [address] | | | [place] [address] | + + + | Home Phone [...] [place] | | | | | [address] | | + + + + + | Atif Delgadillo | ECON | [place], [place] | | | | | [address] | | + + + + + | Caleb Dawn | ECON | Unknown | | + + + + + Care Team Providers + +------+ + | Care Lean Manufacturing Engineer Name | Role | Phone | [...] + + | 02/17/ | Telephone | [facility] | Freddy Sanchez | Nephrology | | 2015 | | NEPHROLOGY [address] | M, DO [address] [place] | Appointment | | | | [address] [facility] | [place], [facility] 100 | | | | | [place], [place] | [place], [place] | | | | | [address] | [address] | | | | | [phone] | | | +--------+ + + + [...] [place] | | | | | | [address] | | | | | | | | +--------+---------+ + + + documented as of this encounter Visit Diagnoses Not on filedocumented in this encounter"
--- OUTSIDE RECORDS SUMMARY | ~2020-04-03 | XMS | Encounter Summary ---
Demographics + + + | Address | [address] | | | [place] [address] | + + + | Home Phone [...] [place] | | | | | [address] | | + + + + + | Atif Delgadillo | ECON | [place], [place] | | | | | [address] | | + + + + + | Caleb Dawn | ECON | Unknown | | + + + + + Care Team Providers + +------+ + | Care [employer] Rep[employer]r Name | Role | Phone | [...] [address] | M, DO [address] | | | | | [address] | [place] | | | | | [place], [place] | [place] | | | | | [address] | [address] | | | | | [phone] | | | +--------+ + + + [...] | | | | | [place], [place] | | | | | | [address] | | | | | | | [...] | | | LAB | | | Finnish, | | | | | | External [...]
--- OUTSIDE RECORDS SUMMARY | ~2020-04-03 | XMS | Encounter Summary ---
Demographics + + + | Address | [address] | | | [place] [address] | + + + | Home Phone [...] [place] | | | | | [address] | | + + + + + | Atif Delgadillo | ECON | [place], [place] | | | | | [address] | | + + + + + | Caleb Dawn | ECON | Unknown | | + + + + + Care Team Providers + +------+ + | Care Elevator Constructor Hydraulic Name | Role | Phone | + [...] NEPHROLOGY [address] | M, DO [address] | disease, stage III | | | | [address] | [place], [place] [address] | (moderate) (Primary | | | | [place], [place] | [place], [place] | Dx); Unspecified | | | | [address] | [address] | hypertensive kidney | | | | [phone] | | disease with chronic | | [...] | | | | | [place] [place], [place] | | | | | | [address] | | | | | | | [...] manifestations, not stated as | | uncontrolled(250.40) ([facility]) 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
--- OUTSIDE RECORDS SUMMARY | ~2020-04-03 | XMS | Encounter Summary ---
Demographics + + + | Address | [address] | | | [place] [address] | + + + | Home Phone | | + + + | Preferred Language | Unknown | + + + | Marital Status | Single | + + + | Episcopalian Affiliation | Unknown | + + + [...] [place] | | | | | [address] | | + + + + + | Atif Delgadillo | ECON | [place], [place] | | | | | [address] | | + + + + + | Caleb Dawn | ECON | Unknown | | + + + + + Care Team Providers + +------+ + | Care Shuttle Bus Driver Name | Role | Phone | [...] + + | 09/04/ | Office | [facility] | Freddy Sanchez | Chronic kidney | | 2012 | Visit | NEPHROLOGY [address] | M, DO [address] [place] [address] | disease, stage III | | | | [address] | [place], [place] [address] | (moderate) (Primary | | | | [place] | [place] | Dx); Unspecified | | | | [address] | [address] | hypertensive kidney | | | | [phone] | | disease with chronic | | [...] to hypertension x20 years. 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 Past Medical History: 1. Type II [...] of umbilical hernia, 1959. 3. Nasal surgery, [facility]; 1972. 4. Lumbar laminectomy, 1985. 5. Tonsillectomy, [...] have had 2 cases of this in [facility], in the last 6 months. [...] him back in 3 months at the [facility], [place], [place]. He will have a CBC, CMP, PO4, PTH, Hbaic, and 24 hr urine 1 week before. CC: Hema Garza MD, [place], [place] documented in thi s encounter Plan [...] [place] | | | | | | [id number] | | | | | | | [...] stated as | | uncontrolled(250.40) ([facility]) Type II or unspecified type diabetes mellitus with renal | | manifestations, not stated as uncontrolled | + + | Other and unspecified hyperlipidemia | + + documented in this encounter
--- OUTSIDE RECORDS SUMMARY | ~2020-04-03 | XMS | Encounter Summary ---
Demographics + + + | Address | [address] | | | [place] [address] | + + + | Home Phone [...] | Author | [facility] | | | and [place] | + + + | Organization | [facility] | | | and [place] | + + + | Address | Unknown | + + + | Phone | Unavailable | + + + Support + + + + + | Name | Relationship | Address | Phone | + + + + + | Hi Dawn | ECON | [place] | | | | | [address] | | + + + + + | Atif Delgadillo | ECON | [place], [place] | | | | | [address] | | + + + + + | Caleb Dawn | ECON | Unknown | | + + + + + Care Team Providers + +------+ + | Care Surveillance Systems Engineer Name | Role | Phone | [...] NEPHROLOGY [address] | M, DO [address] | disease, stage III | | | | [address] | [place], [place] [address] | (moderate) (Primary | | | | [place], [place] | [place], [place] | Dx); Hypertension; | | | | [address] | [address] | Type II or | | | | [phone] | | unspecified type | | | [...] | | | | | [address] [place], [place] | | | | | | [address] | | | | | | | [...]
--- OUTSIDE RECORDS SUMMARY | ~2020-04-03 | XMS | Encounter Summary ---
Demographics + + + | Address | [address] | | | [place] [address] | + + + | Home Phone [...] + + + | Author | [facility] | | | and [place] | + + + | Organization | [facility] | | | and [place] | + + + | Address | Unknown | + + + | Phone | Unavailable | + + + Support + + + + + | Name | Relationship | Address | Phone | + + + + + | Hi Dawn | ECON | [place] | | | | | [address] | | + + + + + | Atif Delgadillo | ECON | [place], [place] | | | | | [address] | | + + + + + | Caleb Dawn | ECON | Unknown | | + + + + + Care Team Providers + +------+ + | Care Ammonium Hydroxide Operator Name | Role | Phone | + +------+ + PCP | Unavailable | + +------+ + Encounter Details +--------+ + + + + | Date | Type | Department | Care Team | Description | +--------+ + + + + | 12/14/ | Hospital | [facility] | William Marcano, | | | 2013 - | Encounter | MED [facility] SUR[facility] | [address] | | | | | [address] [place] | [place] | | | 12/19/ | | [place] [address] | [address] | | | 2013 | | [phone] | | | | | | | Freddy Sanchez | | | | | | DO [address] | | | | | | [address] | | | | | | [place] | | | | | | [address] | | | | | | | [...] Freddy Sanchez DO - 12/19/2013 2:02 [place] [address] Patient Name: SERGEI ESPANA Amy Provider: Freddy Sanchez DO Unit #: [id number] Locat ion: 3ES : 1945 ADMISSION DATE: [...] spoke to Dr. Hema Garza, his primary retail sales manager. He is agreeable to co-sign his EPO order so that he can get subcu EPO at day surgery at [facility] as I am not on staff there. The dose will be 10,000 SQ weekly to target his hemoglobin 10-11 mg/dL. He is going to have weekly lab at [facility]. I will have a followup appointm ent with him on 12/23/2013. He is going to have a followup appointment with Dr. Garza on 0 01/06/2014. Also, long-term he had been following with Vascular Surgery Department at [facility] and he is agreeable with following up at the Cardiology department here at [facility]. He has an [...] was 102. Weight at the time of ojrzkrktx=007 kg. CONDITION ON DISCHARGE: Improved. I greatly appreciate Dr. Josef English and Dr. Logan Baca's help with Mr. Espana's ca se. I appreciate Dr. Garza's help with his outpatient EPO injections. DICTATED BY: Freddy Sanchez DO Nephrology JOB #: [id number] EXT JOB #:[id number] cc: MD Josef Zavala MD Suwong Wongsuwan, [...] | | | | | | (moderate) ([facility]), | | | | | [...] | | | | | | (moderate) ([facility]), | | | | | [...] | | | | | | | ([facility]), Other and | | | [...] [place] | | | | | | [address] | | | | | | | [...] [address] | [place] | [phone] | | [facility] | | [address] | | | - LABORATORY | | | | + + + + + | [facility] | [address] | [place] | | | [facility] | | [address] | | | - LABORATORY [...] | [facility] | [address] | [place] | [phone] | | [facility] | | [address] | | | - LABORATORY | | | | + + + + + | [facility] | [address] | [place], [place] | | | [facility] | | [address], [facility] | | | - LABORATORY | [...] [address] | [place] | [phone] | | [facility] | | [address] | | | - LABORATORY | | | | + + + + + | [facility] | [address] | [place] | | | [facility] | | [address], [facility] | | | - LABORATORY | [...] | [facility] | [address] | [place], [place] | [phone] | | [facility] | | [address] | | | - LABORATORY | | | | + + + + + | [facility] | [address] | [place], [place] | | | [facility] | | [address], [facility] | | | - LABORATORY | [...] | [facility] | [address] | [place] | [phone] | | [facility] | | [address] | | | - LABORATORY | | | | + + + + + | [facility] | [address] | [place] | | | [facility] | | [address] | | | - LABORATORY [...] | | | | | gm/dL | [facility] | | | | | | MEDICAL [...] [address] | [place] | [phone] | | [facility] | | [address] | | | - LABORATORY | | | | + + + + + | [facility] | [address] | [place] | | | [facility] | | [address] | | | - LABORATORY [...] | [facility] | [address] | [place], [place] | [phone] | | [facility] | | [address] | | | - LABORATORY | | | | + + + + + | [facility] | [address] | [place], [place] | | | [facility] | | [address], [facility] | | | - LABORATORY | [...] [address] | [place] | [phone] | | [facility] | | [address] | | | - LABORATORY | | | | + + + + + | [facility] | [address] | [place], [place] | | | [facility] | | [address] | | | - LABORATORY | | | | + + + + + NM Nuclear Stress Test (Vasodilator) (12/17/2013 1:07 PM PST) + + | Specimen | + + | | + + + + + | Narrative | Performed At | + + + | [facility] | [facility] | | Department [address] [facility], [place] | [facility] | | [ rep ct street1+2] [ rep ct [facility] | | st zip] Signed | - IMAGING | | | | | Patient Name: SERGEI ESPANA | | | Physician: KAILEY : 1945 Age: 68 Sex: M Unit | | | #: [id number] Exam Date: 12/17/13 Location: | | | 3ES 321-1 Report #: [id number] Page: | | | %(RAD)RES..mtdd.print.filter("pg") of %(RAD) | | | RES..mtdd.print.filter("tpg") | | | | | | Accession Number: [id number] | | | REGADENOSON SESTAMIBI STRESS, 12/17/2013 [...] Transcribed | | | Date/Time: 12/17/2013 13:39 Teamsite Developer: | | | <<Signature on File>> | | | Logan | | | MD Phuong [facility] FASE12/17/13 1556 <Electronically signed by | | | Logan Baca MD, FAC, FACP, FASMariana, FASVENUS> Logan | | | MD Phuong [facility] FASMariana 12/17/13 1307 Teamsite Developer: Denilson | | | Yzchqsdeqeknt35/28/14 9869 Freddy Sanchez DO | | | | | + + + + + + + + | Performing | Address | City/State/Zipcode | Phone Number | | Organization | | | | + + + + + | [facility] | [address] | [place] | [phone] | | [facility] | | [address] | | | - IMAGING | | [...] [address] | [place] | [phone] | | [facility] | | [address] | | | - LABORATORY | | | | + + + + + | [facility] | [address] | [place] | | | [facility] | | [address] | | | - LABORATORY [...] | [facility] | [address] | [place], [place] | [phone] | | [facility] | | [address] | | | - LABORATORY | | | | + + + + + | [facility] | [address] | [place], [place] | | | [facility] | | [id number] [place] [address] | | | - LABORATORY | | [...] | [facility] | [address] | [place], [place] | [phone] | | [facility] | | [address] | | | - LABORATORY | | | | + + + + + | [facility] | [address] | [place] | | | [facility] | | [address], [facility] | | | - LABORATORY | [...] [address] | [place] | [phone] | | [facility] | | [address] | | | - LABORATORY | | | | + + + + + | [facility] | [address] | [place] | | | [facility] | | [address], [facility] | | | - LABORATORY | [...] 1.90Comment: THE | 0.6 - 2.7 | [facility] | | | Urine | REFERENCE RANGES [...] (L)Comment: | 71 - 135 mL/min | [facility] | | | CLEARANCE | Creatinine Clearance [...] | | GFR | -Americans, | | [facility] | | | | please multiply the [...] [address] | [place] | [phone] | | [facility] | | [address] | | | - LABORATORY | | | | + + + + + | [facility] | [address] | [place] | | | [facility] | | [address], [facility] | | | - LABORATORY | [...] | [facility] | [address] | [place], [place] | [phone] | | [facility] | | [address] | | | - LABORATORY | | | | + + + + + | [facility] | [address] | [place], [place] | | | [facility] | | [id number] [place] [address] | | | - LABORATORY | | [...] | [facility] | [address] | [place] | [phone] | | [facility] | | [address] | | | - LABORATORY | | | | + + + + + | [facility] | [address] | [place], [place] | | | [facility] | | [address] | | | - LABORATORY [...] | | | | Ranges: | | [facility] | | | | 0.00-0.06 = NORMAL [...] The | | | | | | [employer] | | | | | [...] | [facility] | [address] | [place], [place] | [phone] | | [facility] | | [address] | | | - LABORATORY | | | | + + + + + | [facility] | [address] | [place], [place] | | | [facility] | | [address] [place] [address] | | | - LABORATORY | | [...] | [facility] | [address] | [place] | [phone] | | [facility] | | [address] | | | - LABORATORY | | | | + + + + + | [facility] | [address] | [place], [place] | | | [facility] | | [id number] [place] [address] | | | - LABORATORY | | [...] | [facility] | [address] | [place] | [phone] | | [facility] | | [address] | | | - LABORATORY | | | | + + + + + | [facility] | [address] | [place] | | | [facility] | | [address] | | | - LABORATORY [...] | | | | | mg/dL | [facility] | | | | | | MEDICAL [...] | [facility] | [address] | [place], [place] | [phone] | | [facility] | | [address] | | | - LABORATORY | | | | + + + + + | [facility] | [address] | [place], [place] | | | [facility] | | [facility] | | | - LABORATORY | [...] | [facility] | [address] | [place] | [phone] | | [facility] | | [address] | | | - LABORATORY | | | | + + + + + | [facility] | [address] | [place] | | | [facility] | | [address], [facility] | | | - LABORATORY | [...] | | POC | | | [facility] | | | | [...] | [facility] | [address] | [place] | [phone] | | [facility] | | [address] | | | - LABORATORY | | | | + + + + + | [facility] | [address] | [place] | | | [facility] | | [address] | | | - LABORATORY | | | | + + + + + ECHO Complete (12/16/2013 6:50 AM PST) + + | Specimen | + + | | + + + + + | Narrative | Performed At | + + + | [facility] | [facility] | | Department [address] [place], [place] [address] | [facility] | | [ rep ct street1+2] [ rep [facility] | | st zip] Signed | - IMAGING | | | | | Patient Name: SERGEI ESPANA | | | Physician: KAILEY : 1945 Age: 68 Sex: M Unit | | | #: [id number] Exam Date: 12/15/13 Location: | | | [facility] 454-1 Report #: [id number] Page: | | | %(RAD)RES..mtdd.print.filter("pg") of %(RAD) | | | RES..mtdd.print.filter("tpg") | | | | | | Accession Number: [id number] | | | E C H O C A R D I O G R A P H Y R E P O R T | | | HEIGHT: 75" WEIGHT: 275# | | | MOBILE HEAVY EQUIPMENT OPERATOR: GINGER REFERRING DR: CHUCK ERWIN DR: | [...] Transcribed Date/Time: 12/16/2013 | | | 07:14 Teamsite Developer: <<Signature on | | | File>> | | | Logan | | | MD Phuong [facility] FASE12/16/13 0813 <Electronically signed by | | | Logan Baca MD, FAC, FACP, FASE, FASNC> Ponceong | | | MD Phuong [facility] FASE 12/16/13 0650 Teamsite Developer: Denilson | | | Uzknrzqsnozsq42/27/1414 Freddy Sanchez DO | | | | | + + + + + + + + | Performing | Address | City/State/Zipcode | Phone Number | | Organization | | | | + + + + + | [facility] | [address] | [place] | [phone] | | [facility] | | [address] | | | - IMAGING | | [...] | [facility] | [address] | [place], [place] | [phone] | | [facility] | | [address] | | | - LABORATORY | | | | + + + + + | [facility] | [address] | [place], [place] | | | [facility] | | [address] [place] [address] | | | - LABORATORY | | [...] The | | | | | | [employer] | | | | | [...] | [facility] | [address] | [place] | [phone] | | [facility] | | [address] | | | - LABORATORY | | | | + + + + + | [facility] | [address] | [place], [place] | | | [facility] | | [address], [facility] | | | - LABORATORY | [...] | CONSISTENT WITH PREVIOUS | gm/dL | [facility] | | | | RESULTS | | [...] [address] | [place] | [phone] | | [facility] | | [address] | | | - LABORATORY | | | | + + + + + | [facility] | [address] | [place] | | | [facility] | | [address], [facility] | | | - LABORATORY | [...] | [facility] | [address] | [place], [place] | [phone] | | [facility] | | [address] | | | - LABORATORY | | | | + + + + + | [facility] | [address] | [place], [place] | | | [facility] | | [id number] [place] [address] | | | - LABORATORY | | [...] + | [facility] | [address] | [place], [place] | [phone] | | [facility] | | [address] | | | - LABORATORY | | | | + + + + + | [facility] | [address] | [place], [place] | | | [facility] | | [address] | | | - LABORATORY [...] | | POC | | | [facility] | | | | [...] [address] | [place] | [phone] | | [facility] | | [address] | | | - LABORATORY | | | | + + + + + | [facility] | [address] | [place], [place] | | | [facility] | | [address], [facility] | | | - LABORATORY | | | | + + + + + XR Chest AP Portable (12/15/2013 12:53 PM PST) + + | Specimen | + + | | + + + + + | Narrative | Performed At | + + + | [facility] | [facility] | | Department [address] , [place] | [facility] | | [ rep ct street1+2] [ rep [facility] | | st zip] Signed | - IMAGING | | | | | Patient Name: SERGEI ESPANA | | | Physician: KAILEY : 1945 Age: 68 Sex: M Unit | | | #: [id number] Exam Date: 12/14/13 Location: | | | [address] [place] [address] Report #: [id number] Page: | | | %(RAD)RES..mtdd.print.filter("pg") of %(RAD) | | | RES..mtdd.print.filter("tpg") | | | | | | Accession Number: [id number] | | | CHEST PORTABLE, 12/15/2013 CLINICAL [...] Transcribed Date/Time: 12/15/2013 15:27 | | | Teamsite Developer: <<Signature on File>> | | | | | | Kai Gomez MD12/15/13 1612 <Electronically signed by Kai Gomez | | | MD> Kai Gomez MD 12/15/13 1253 Teamsite Developer: | | | [employer] Cogfxbvxvcrtg12/26/14 1527 Freddy Sanchez, | | | DO | | + + + + + + + + | Performing | Address | City/State/Zipcode | Phone Number | | Organization | | | | + + + + + | [facility] | [address] | [place] | [phone] | | [facility] | | [address] | | | - IMAGING | | [...] | [facility] | [address] | [place] | [phone] | | [facility] | | [address] | | | - LABORATORY | | | | + + + + + | [facility] | [address] | [place] | | | [facility] | | [address], [facility] | | | - LABORATORY | [...] The | | | | | | [employer] | | | | | [...] | [facility] | [address] | [place] | [phone] | | [facility] | | [address] | | | - LABORATORY | | | | + + + + + | [facility] | [address] | [place], [place] | | | [facility] | | [id number] [place] [address] | | | - LABORATORY | | [...] | [facility] | [address] | [place] | [phone] | | [facility] | | [address] | | | - LABORATORY | | | | + + + + + | [facility] | [address] | [place], [place] | | | [facility] | | [id number] [place] [address] | | | - LABORATORY | | [...] | [facility] | [address] | [place], [place] | [phone] | | [facility] | | [address] | | | - LABORATORY | | | | + + + + + | [facility] | [address] | [place] | | | [facility] | | [address] [place] [address] | | | - LABORATORY | | [...] | [facility] | [address] | [place] | [phone] | | [facility] | | [address] | | | - LABORATORY | | | | + + + + + | [facility] | [address] | [place] | | | [facility] | | [address], [facility] | | | - LABORATORY | [...] | | | POC | | | [facility] | | | | | | MEDICAL [...] | [facility] | [address] | [place] | [phone] | | [facility] | | [address] | | | - LABORATORY | | | | + + + + + | [facility] | [address] | [place] | | | [facility] | | [address] | | | - LABORATORY [...] | [facility] | [address] | [place] | [phone] | | [facility] | | [address] | | | - LABORATORY | | | | + + + + + | [facility] | [address] | [place], [place] | | | [facility] | | [id number] [place] [address] | | | - LABORATORY | | [...] | [facility] | | | | [facility] | | MEDICAL | | | [...] The | | | | | | [employer] | | | | | [...] + + | Performing | Address | City/State/[facility] Centerc[facility] | Phone Number | | Organization | | | | + + + + + | [facility] | [address] | [place] | [phone] | | [facility] | | [address] | | | - LABORATORY | | | | + + + + + | [facility] | [address] | [place], [place] | | | [facility] | | [address] | | | - LABORATORY [...] | [facility] | [address] | [place], [place] | [phone] | | [facility] | | [address] | | | - LABORATORY | | | | + + + + + | [facility] | [address] | [place], [place] | | | [facility] | | [address], [facility] | | | - LABORATORY | [...] [address] | [place] | [phone] | | [facility] | | [address] | | | - LABORATORY | | [...] | [facility] | [address] | [place] | [phone] | | [facility] | | [address] | | | - LABORATORY | | | | + + + + + | [facility] | [address] | [place] | | | [facility] | | [address] | | | - LABORATORY [...] | | POC | | | [facility] | | | | | | MEDICAL | | | | | | CENTER - | | | | | | LABORATORY | | + +---------+ + + + + + | Specimen | + + | | + + + + + + + | Performing | Address | City/[facility]/Zipcode | Phone Number | | Organization | | | | + + + + + | [facility] | [address] | [place], [place] | [phone] | | [facility] | | [address] | | | - LABORATORY | | | | + + + + + | [facility] | [address] | [place], [place] | | | [facility] | | [address], [facility] | | | - LABORATORY | [...] | [facility] | [address] | [place] | [phone] | | [facility] | | [address] | | | - LABORATORY | | | | + + + + + | [facility] | [address] | [place] | | | [facility] | | [address] | | | - LABORATORY [...] [address] | [place] | [phone] | | [facility] | | [address] | | | - LABORATORY | | | | + + + + + | [facility] | [address] | [place] | | | [facility] | | [address] | | | - LABORATORY [...] + + + | UNIT # | [id number] | | [facility] | | | | [...] | [facility] | [address] | [place] | [phone] | | [facility] | | [address] | | | - LABORATORY | | | | + + + + + | [facility] | [address] | [place], [place] | | | [facility] | | [address], [facility] | | | - LABORATORY | [...] + + + | UNIT # | [id number] | | [facility] | | | | [...] [address] | [place] | [phone] | | [facility] | | [address] | | | - LABORATORY | | | | + + + + + | [facility] | [address] | [place] | | | [facility] | | [id number] | | | - LABORATORY [...] + + + | UNIT # | [id number] | | [facility] | | | | [...] | [facility] | [address] | [place], [place] | [phone] | | [facility] | | [address] | | | - LABORATORY | | | | + + + + + | [facility] | [address] | [place], [place] | | | [facility] | | [id number] | | | - LABORATORY | [...] + + + | UNIT # | [id number] | | [facility] | | | | [...] [address] | [place] | [phone] | | [facility] | | [address] | | | - LABORATORY | | | | + + + + + | [facility] | [address] | [place] | | | [facility] | | [id number] | | | - LABORATORY [...] + + + | UNIT # | [id number] | | [facility] | | | | [...] | [facility] | [address] | [place], [place] | [phone] | | [facility] | | [address] | | | - LABORATORY | | | | + + + + + | [facility] | [address] | [place], [place] | | | [facility] | | [id number] | | | - LABORATORY [...] | [facility] | [address] | [place] | [phone] | | [facility] | | [address] | | | - LABORATORY | | | | + + + + + | [facility] | [address] | [place], [place] | | | [facility] | | [id number] | | | - LABORATORY [...] + | [facility] | [address] | [place] | [phone] | | [facility] | | [address] | | | - LABORATORY | | | | + + + + + | [facility] | [address] | [place] | | | [facility] | | [address] | | | - LABORATORY [...] | [facility] | [address] | [place] | [phone] | | [facility] [facility] | | [address] | | | - LABORATORY | | | | + + + + + | [facility] | [address] | [place], [place] | | | [facility] | | [address] | | | - LABORATORY [...] | <0.01Comment: Reference | <0.06 ng/mL | [facility] | | | | Ranges: | | [...] The | | | | | | [employer] | | | | | [...] | [facility] | [address] | [place], [place] | [phone] | | [facility] | | [address] | | | - LABORATORY | | | | + + + + + | [facility] | [address] | [place], [place] | | | [facility] | | [address] [place] [address] | | | - LABORATORY | | [...] | [facility] | [address] | [place] | [phone] | | [facility] | | [address] | | | - LABORATORY | | | | + + + + + | [facility] | [address] | [place] | | | [facility] | | [address], [facility] | | | - LABORATORY | [...] | RANGE FOR RANDOM URINE | | [facility] | | | Random | SPECIMEN | [...] | [facility] | [address] | [place], [place] | [phone] | | [facility] | | [address] | | | - LABORATORY | | | | + + + + + | [facility] | [address] | [place], [place] | | | [facility] | | [address], [facility] | | | - LABORATORY | [...] + | [facility] | [address] | [place] | [phone] | | [facility] | | [address] | | | - LABORATORY | | | | + + + + + | [facility] | [address] | [place], [place] | | | [facility] | | [address] | | | - LABORATORY [...] [address] | [place] | [phone] | | [facility] | | [address] | | | - LABORATORY | | | | + + + + + | [facility] | [address] | [place] | | | [facility] | | [address] | | | - LABORATORY [...] | [facility] | [address] | [place], [place] | [phone] | | [facility] | | [address] | | | - LABORATORY | | | | + + + + + | [facility] | [address] | [place], [place] | | | [facility] | | [address], [facility] | | | - LABORATORY | [...] | [facility] | [address] | [place], [place] | [phone] | | [facility] | | [address] | | | - LABORATORY | | | | + + + + + | [facility] | [address] | [place], [place] | | | [facility] | | [address], [facility] | | | - LABORATORY | [...] [address] | [place] | [phone] | | [facility] | | [address] | | | - LABORATORY | | | | + + + + + | [facility] | [address] | [place] | | | [facility] | | [address] | | | - LABORATORY [...] | | | | g/dL | [facility] | | | | | | MEDICAL [...] | [facility] | [address] | [place], [place] | [phone] | | [facility] | | [address] | | | - LABORATORY | | | | + + + + + | [facility] | [address] | [place], [place] | | | [facility] | | [address], [facility] | | | - LABORATORY | [...] | [facility] | [address] | [place], [place] | [phone] | | [facility] | | [address] | | | - LABORATORY | | | | + + + + + | [facility] | [address] | [place] | | | [facility] | | [address] [place] [address] | | | - LABORATORY | | [...] | [facility] | [address] | [place] | [phone] | | [facility] | | [address] | | | - LABORATORY | | | | + + + + + | [facility] | [address] | [place], [place] | | | [facility] | | [address] | | | - LABORATORY | | | | + + + + + documented in this encounter Visit Diagnoses Not on filedocumented in this encounter
--- OUTSIDE RECORDS SUMMARY | ~2020-04-03 | XMS | Encounter Summary ---
Demographics + + + | Address | [address] | | | [place] [address] | + + + | Home Phone [...] [place] | | | | | [address] | | + + + + + | Atif Delgadillo | ECON | [place], [place] | | | | | [address] | | + + + + + | Caleb Dawn | ECON | Unknown | | + + + + + Care Team Providers + +------+ + | Care Spring Encaser Name | Role | Phone | + [...] | kidney | MD [address] | [address] | | | | | disease, | [place] | [place], [place] | | | | | stage 3 | [place] | [address] [place] | | | | | (moderate) | [place], | [place] | | | | | (HCC) | [place] | [address] Phone: | | | | | Hypertension | [address] | [phone] | | | | | , essential | Phone: | Fax: | | | | | Type 2 | [phone] | [phone] | | | | | diabetes | Fax: | | | | | | mellitus | [phone] | | | | | | with [...] NEPHROLOGY [address] | M, DO [address] | mellitus with stage | | | | [address] | [place], [place] [address] | 3 chronic kidney | | | | [place], [place] | [place] | disease, without | | | | [address] | [address] | long-term current | | | | [phone] | | use of insulin (HCC) | [...] (ELOCON) 0.1 % cream Apply topically Daily. [place]-3 Fatty Acids (FISH OIL) 1200 MG CAPS [...] PHOSEX 3.7 06/29/2017 PTHEX 158.2 (A) 06/29/2017 JGX4UTK 5.9 06/29/2017 Lab Results Component Value Date [...] to th at. : Hema Gregory MD, [place] , [place] documented in th is encounter [...] [place] | | | | | | [id number] | | | | | | | [...]
--- OUTSIDE RECORDS SUMMARY | ~2020-04-03 | XMS | Encounter Summary ---
Demographics + + + | Address | [address] | | | [place] [address] | + + + | Home Phone [...] [place] | | | | | [address] | | + + + + + | Atif Delgadillo | ECON | [place], [place] | | | | | [address] | | + + + + + | Caleb Dawn | ECON | Unknown | | + + + + + Care Team Providers + +------+ + | Care Jerker Name | Role | Phone | + [...] NEPHROLOGY [address] | MD [address] | (Primary Dx) | | | | [address] | [address] [place] | | | | | [place] | [place] [address] | | | | | [address] | [phone] | | | | | [phone] | | | +--------+ + + + [...] [place] | | | | | | [address] | | | | | | | | +--------+---------+ + + + documented as of this encounter Visit Diagnoses + + | Diagnosis | + + | Hypertension - Primary Unspecified essential hypertension | + + documented in this encounter"
--- OUTSIDE RECORDS SUMMARY | ~2020-04-03 | XMS | Encounter Summary ---
Demographics + + + | Address | [address] | | | [place] [address] | + + + | Home Phone [...] [place] | | | | | [address] | | + + + + + | Atif Delgadillo | ECON | [place], [place] | | | | | [address] | | + + + + + | Caleb Dawn | ECON | Unknown | | + + + + + Care Team Providers + +------+ + | Care Guest Services Agent Name | Role | Phone | [...] NEPHROLOGY [address] | M, DO [address] | | | | | [address] | [place], [place] [address] | | | | | [place], [place] | [place] | | | | | [address] | [address] | | | | | [phone] | | | +--------+ + + + [...] | | | | | [place], [place] | | | | | | [address] | | | | | | | [...]
--- OUTSIDE RECORDS SUMMARY | ~2020-04-03 | XMS | Encounter Summary ---
Demographics + + + | Address | [address] | | | [place] [address] | + + + | Home Phone [...] [place] | | | | | [address] | | + + + + + | Atif Delgadillo | ECON | [place], [place] | | | | | [address] | | + + + + + | Caleb Dawn | ECON | Unknown | | + + + + + Care Team Providers + +------+ + | Care Keg Inspector Name | Role | Phone | + +------+ + PCP | Unavailable | + +------+ + Reason for Visit + + + | Reason | Comments | + + + | Blood Pressure Check | Log from 01/04/14 to 01/23/14 | | (Screening) | | + + + Encounter Details +--------+ + + + + | Date | Type | Department | Care Team | Description | +--------+ + + + + | 01/23/ | Telephone | [facility] | Timothy, | Blood Pressure Check | | 2013 | | CARDIOLOGY [address] | ELLA Morton [address] | (Screening) (Log | | | | [place], | [place], | from 01/04/14 to | | | | [place] [address] | [place] [address] | 01/23/14) | | | | [phone] | [phone] | | | | | | | [...] [place] | | | | | | [address] | | | | | | | | +--------+---------+ + + + documented as of this encounter Visit Diagnoses Not on filedocumented in this encounter"
--- OUTSIDE RECORDS SUMMARY | ~2020-04-03 | XMS | Encounter Summary ---
Demographics + + + | Address | [address] | | | [place] [address] | + + + | Home Phone [...] + + + | Author | [facility] | | | and [place] | + + + | Organization | [facility] | | | and [place] | + + + | Address | Unknown | + + + | Phone | Unavailable | + + + Support + + + + + | Name | Relationship | Address | Phone | + + + + + | Hi Dawn | ECON | [place] | | | | | [address] | | + + + + + | Atif Delgadillo | ECON | [place] | | | | | [address] | | + + + + + | Caleb Dawn | ECON | Unknown | | + + + + + Care Team Providers + +------+ + | Care Kettle Fry Cook Operator Name | Role | Phone | [...] NEPHROLOGY [address] | M, DO [address] | | | | | [address] [facility] 100 | [place], [place] [address] | | | | | [place], [place] | [place], [place] | | | | | [address] | [address] | | | | | [phone] | | | +--------+ + + + [...] [place] | | | | | | [address] | | | | | | | | +--------+---------+ + + + documented as of this encounter Procedures + +--------+ + + + | Procedure Name | Priori | Date/Time | Associated Diagnosis | Comments | | | ty | | | | + +--------+ + + + | EXTERNAL LAB: BUN | Routin | 06/20/2018 | | Results [...] +--------+ + + + | EXTERNAL LAB: NERICO | Routin | 06/20/2018 | | Results [...] | EXTERNAL LAB: EPIFANIO | Routin | 06/20/2018 | | Results [...]
--- OUTSIDE RECORDS SUMMARY | ~2020-04-03 | XMS | Encounter Summary ---
Demographics + + + | Address | [address] | | | [place] [address] | + + + | Home Phone [...] [place] | | | | | [address] | | + + + + + | Atif Delgadillo | ECON | [place], [place] | | | | | [address] | | + + + + + | Caleb Dawn | ECON | Unknown | | + + + + + Care Team Providers + +------+ + | Care Plate And Weld Inspector Name | Role | Phone | + +------+ + PCP | Unavailable | + +------+ + Encounter Details +--------+ + + + + | Date | Type | Department | Care Team | Description | +--------+ + + + + | 05/21/ | Hospital | [facility] | Saad Ivan | | | 2006 | Encounter | MED CTR SLEEP | MD Tomás [address] | | | | | [place] [address] | [place] [facility] | | | | | [place] | [place] [address] | | | | | [address] | [phone] | | | | | [phone] | | | +--------+ + + + [...] [place] | | | | | | [address] | | | | | | | | +--------+---------+ + + + documented as of this encounter Visit Diagnoses Not on filedocumented in this encounter"
--- OUTSIDE RECORDS SUMMARY | ~2020-04-03 | XMS | Encounter Summary ---
Demographics + + + | Address | [address] | | | [place] [address] | + + + | Home Phone [...] [place] | | | | | [address] | | + + + + + | Atif Delgadillo | ECON | [place], [place] | | | | | [address] | | + + + + + | Caleb Dawn | ECON | Unknown | | + + + + + Care Team Providers + +------+ + | Care Territory Sales Professional Name | Role | Phone | + [...] [address] | M, DO [address] | | | | | [address] | [place], [place] [address] | | | | | [place], [place] | [place] | | | | | [address] | [address] | | | | | [phone] | | | +--------+ + + + [...] | | | | | [place], [place] | | | | | | [address] | | | | | | | [...] + +---------+ + + External Lab: BUN (06/29/2017) + +--------+ + + + | Component | Value | Ref Range | Performed | Pathologist | | | | | At | Signature | + +--------+ + + + | BUN, | 41 (A) | 6 - 23 [...] + +---------+ + + External Lab: AST (06/29/2017) + +-------+ + + + | [...]
--- OUTSIDE RECORDS SUMMARY | ~2020-04-03 | XMS | Encounter Summary ---
Demographics + + + | Address | [address] | | | [place] [address] | + + + | Home Phone [...] [place] | | | | | [address] | | + + + + + | Atif Delgadillo | ECON | [place], [place] | | | | | [address] | | + + + + + | Caleb Dawn | ECON | Unknown | | + + + + + Care Team Providers + +------+ + | Care Boot And Shoe Repairman Name | Role | Phone | + +------+ + PCP | Unavailable | + +------+ + Encounter Details +--------+ + + + + | Date | Type | Department | Care Team | Description | +--------+ + + + + | 12/29/ | Hospital | [facility] | Saad Ivan | | | 1994 | Encounter | MED CTR SLEEP | MD Tomás [address] | | | | | [place] [address] | [facility] | | | | | [place] | [place] [address] | | | | | [address] | [phone] | | | | | [phone] | | | +--------+ + + + [...] [place] | | | | | | [place] | | | | | | [address] | | | | | | | | +--------+---------+ + + + documented as of this encounter Visit Diagnoses Not on filedocumented in this encounter"
--- OUTSIDE RECORDS SUMMARY | ~2020-04-03 | XMS | Encounter Summary ---
Demographics + + + | Address | [address] | | | [place] [address] | + + + | Home Phone [...] [place] | | | | | [address] | | + + + + + | Atif Delgadillo | ECON | [place], [place] | | | | | [address] | | + + + + + | Caleb Dawn | ECON | Unknown | | + + + + + Care Team Providers + +------+ + | Care Pairer Substandard Name | Role | Phone | + [...] + + | 12/20/ | Telephone | [facility] | Freddy Sanchez | Knee Pain | | 2013 | | NEPHROLOGY [address] | M, DO [address] | (Requesting pain | | | | [address] | [place], [place] [address] | medication) | | | | [place] | [place] | | | | | [address] | [id number] | | | | | [phone] | | | +--------+ + + + [...] [place] | | | | | | 218732 | | | | | | | | +--------+---------+ + + + documented as of this encounter Visit Diagnoses Not on filedocumented in this encounter"
--- OUTSIDE RECORDS SUMMARY | ~2020-04-03 | XMS | Encounter Summary ---
Demographics + + + | Address | [address] | | | [place] [address] | + + + | Home Phone [...] [place] | | | | | [address] | | + + + + + | Atif Delgadillo | ECON | [place], [place] | | | | | [address] | | + + + + + | Caleb Dawn | ECON | Unknown | | + + + + + Care Team Providers + +------+ + | Care Wink Cutter Operator Name | Role | Phone | + +------+ + PCP | Unavailable | + +------+ + Encounter Details +--------+ + + + + | Date | Type | Department | Care Team | Description | +--------+ + + + + | 12/05/ | Hospital | [facility] | Winsome Fam, | | | 2013 - | Encounter | MED CTR MEDICAL | [address] | | | | | [address] [place] | [facility] [address] [place] | | | 12/09/ | | [place] [address] | [place] [address] | | | 2013 | | [phone] | | | | | | | [...] Winsome Fam MD - 12/09/2013 10:25 [place] [address] Patient Name: SERGEI TANNER Provider: Winsome Fam MD Unit #: [id number] Locatio n: 4EM : 1945 ADMISSION DATE: [...] on 12/23/2013 at 2 p.m. at the [facility] in [place], [place]. DICTATED BY: Winsome Fam MD Nephrology JOB #: [id number] EXT JOB #:[id number] cc: DO Quique Hall MD, primary care in [place] <<Signature on File>> Olayinka Ching D012/09/13 1443 [...] | | | | (moderate) ([facility]), | | | | | [...] | | | | | | [facility] [place] | | | | | | [address] | | | | | | | [...] 119 | 79 - 150 md/dL | [facility] [...] + + + + + | [facility] | [address] | [place], [place] | [phone] | | [facility] | | [address] | | | - LABORATORY | | | | + + + + + | [facility] | [address] | [place], [place] | | | [facility] | | [address], [facility] | | | - LABORATORY | [...] 105 | 70 - 109 mg/dL | [facility] [...] + | [facility] | [address] | [place], [place] | [phone] | | [facility] | | [address] | | | - LABORATORY | | | | + + + + + | [facility] | [address] | [place], [place] | | | [facility] | | [address], [facility] | | | - LABORATORY | [...] + | [facility] | [address] | [place], [place] | [phone] | | [facility] | | [address] | | | - LABORATORY | | | | + + + + + | [facility] | [address] | [place], [place] | | | [facility] | | [address] | | | - LABORATORY | | | | + + + + + POC Glucose (12/08/2013 5:43 PM PST) + +-------+ + + + | Component | Value | Ref Range | Performed | Pathologist | | | | | At | Signature | + +-------+ + + + | Glucose, | 138 | 79 - 150 md/dL | [facility] [...] + | [facility] | [address] | [place] | [phone] | | [facility] | | [address] | | | - LABORATORY | | | | + + + + + | [facility] | [address] | [place] | | | [facility] | | [address], [facility] | | | - LABORATORY | [...] + | [facility] | [address] | [place] | [phone] | | [facility] | | [address] | | | - LABORATORY | | | | + + + + + | [facility] | [address] | [place], [place] | | | [facility] | | [address] | | | - LABORATORY [...] [address] | [place] | [phone] | | [facility] | | [address] | | | - LABORATORY | | | | + + + + + | [facility] | [address] | [place], [place] | | | [facility] | | [address], [facility] | | | - LABORATORY | [...] 3.05 (H) | 0.60 - 1.30 | [facility] | | | | | mg/dL | [facility] | | | | | | MEDICAL | | | | | | CENTER - | | | | | | LABORATORY | | + + + + + + | Estimated | 20 (L)Comment: For | >60 mL/min/A | [facility] [...] + | [facility] | [address] | [place] | [phone] | | [facility] | | [address] | | | - LABORATORY | | | | + + + + + | [facility] | [address] | [place] | | | [facility] | | [address] | | | - LABORATORY [...] | | POC | | | [facility] | | | | [...] + | [facility] | [address] | [place], [place] | [phone] | | [facility] | | [address] | | | - LABORATORY | | | | + + + + + | [facility] | [address] | [place], [place] | | | [facility] | | [address] [place] [address] | | | - LABORATORY | | [...] + + + | BUN | 120 (HH)Comment: @VALUE | 7 - 18 mg/dL | [facility] | | | | CONSISTENT WITH PREVIOUS | | [facility] | | | | RESULTS | | MEDICAL | | | | | | CENTER - | | | | | | LABORATORY | | + + + + + + | Creatinine | 4.37 (H) | 0.60 - 1.30 | [facility] | | | | | mg/dL | [facility] | | | | | | MEDICAL | | | | | | CENTER - | | | | | | LABORATORY | | + + + + + + | Estimated | 13 (L)Comment: For | >60 mL/min/A | [facility] [...] 27.5 (H) | 12 - 20 | [facility] | | | ine Ratio | | | [facility] | | | | | | MEDICAL | | | | | | CENTER - | | | | | | LABORATORY | | + + + + + + | Na | 140 | 136 - 149 mEq/L | [facility] [...] | 14.0 | 6.0 - 17.0 | [facility] | [...] [address] | [place] | [phone] | | [facility] | | [address] | | | - LABORATORY | | | | + + + + + | [facility] | [address] | [place] | | | [facility] | | [address], [facility] | | | - LABORATORY | [...] + | [facility] | [address] | [place], [place] | [phone] | | [facility] | | [address] | | | - LABORATORY | | | | + + + + + | [facility] | [address] | [place], [place] | | | [facility] | | [address], [facility] | | | - LABORATORY | [...] + + + | BUN | 135 (HH)Comment: @VALUE | 7 - 18 mg/dL [...] | CONSISTENT WITH PREVIOUS | mg/dL | [facility] | | | | RESULTS | | MEDICAL | | | | | | CENTER - | | | | | | LABORATORY | | + + + + + + | Estimated | 11 (L)Comment: For | >60 mL/min/A | [facility] [...] 138 | 136 - 149 mEq/L | [facility] | | | | | [...] + | [facility] | [address] | [place], [place] | [phone] | | [facility] | | [address] | | | - LABORATORY | | | | + + + + + | [facility] | [address] | [place], [place] | | | [facility] | | [address], [facility] | | | - LABORATORY | [...] + | [facility] | [address] | [place] | [phone] | | [facility] | | [address] | | | - LABORATORY | | | | + + + + + | [facility] | [address] | [place] | | | [facility] | | [address] | | | - LABORATORY [...] + | [facility] | [address] | [place] | [phone] | | [facility] | | [address] | | | - LABORATORY | | | | + + + + + | [facility] | [address] | [place] | | | [facility] | | [address] [place] [address] | | | - LABORATORY | | [...] + | [facility] | [address] | [place] | [phone] | | [facility] | | [address] | | | - LABORATORY | | | | + + + + + | [facility] | [address] | [place] | | | [facility] | | [address] | | | - LABORATORY [...] + | [facility] | [address] | [place], [place] | [phone] | | [facility] | | [address] | | | - LABORATORY | | | | + + + + + | [facility] | [address] | [place], [place] | | | [facility] | | [address], [facility] | | | - LABORATORY | [...] 0.0 | 0.0 - 0.1 K/uL | [facility] | | | Basophils | | | [facility] | | [...] [address] | [place] | [phone] | | [facility] | | [address] | | | - LABORATORY | | | | + + + + + | [facility] | [address] | [place] | | | [facility] | | [address], [facility] | | | - LABORATORY | [...] + + + | Creatinine | 8.31 (HH)Comment: @VALUE | 0.60 - 1.30 | [facility] [...] + | [facility] | [address] | [place], [place] | [phone] | | [facility] | | [address] | | | - LABORATORY | | | | + + + + + | [facility] | [address] | [place], [place] | | | [facility] | | [address], [facility] | | | - LABORATORY | [...] + | [facility] | [address] | [place] | [phone] | | [facility] | | [address] | | | - LABORATORY | | [...] + + + | Phosphorus | 8.3 ()Comment: | 2.5 - 4.6 mg/dL | [facility] | | | | | | [facility] | | | | ALERT VALUE | [...] 6 (L)Comment: For | >60 mL/min/A | [facility] [...] 24.9 (H) | 6.0 - 17.0 | [facility] | [...] [address] | [place] | [phone] | | [facility] | | [address] | | | - LABORATORY | | | | + + + + + | [facility] | [address] | [place] | | | [facility] | | [address], [facility] | | | - LABORATORY | | | | + + + + + CK Total (12/05/2013 7:23 PM PST) + +-------+ + + + | Component | Value | Ref Range | Performed | Pathologist | | | | | At | Signature | + +-------+ + + + | CK TOTAL | 42 | 22 - 269 IU/L | [facility] | | | | | [...] + | [facility] | [address] | [place], [place] | [phone] | | [facility] | | [address] | | | - LABORATORY | | | | + + + + + | [facility] | [address] | [place] | | | [facility] | | [id number] [place] [address] | | | - LABORATORY | | | | + + + + + Uric Acid (12/05/2013 7:23 PM PST) + +-------+ + + + | Component | Value | Ref Range | Performed | Pathologist | | | | | At | Signature | + +-------+ + + + | Uric Acid | 5.5 | 2.6 - 7.2 mg/dL | [facility] | | | | [...] + | [facility] | [address] | [place] | [phone] | | [facility] | | [address] | | | - LABORATORY | | | | + + + + + | [facility] | [address] | [place] | | | [facility] | | [address], [facility] | | | - LABORATORY | | | | + + + + + documented in this encounter Visit Diagnoses Not on filedocumented in this encounter"
--- OUTSIDE RECORDS SUMMARY | ~2020-04-03 | XMS | Encounter Summary ---
Demographics + + + | Address | [address] | | | [place] [address] | + + + | Home Phone [...] [place] | | | | | [address] | | + + + + + | Atif Delgadillo | ECON | [place], [place] | | | | | [address] | | + + + + + | Caleb Dawn | ECON | Unknown | | + + + + + Care Team Providers + +------+ + | Care Lead Sharepoint Developer Name | Role | Phone | [...] NEPHROLOGY [address] | M, DO [address] [place] | | | | | [address] | [place] [place] [address] | | | | | [place], [place] | [place] | | | | | [address] | [address] | | | | | [phone] | | | +--------+ + + + [...] | | | | | [place], [place] | | | | | | [address] | | | | | | | [...]
--- OUTSIDE RECORDS SUMMARY | ~2020-04-03 | XMS | Encounter Summary ---
Demographics + + + | Address | [address] | | | [place] [address] | + + + | Home Phone [...] [place] | | | | | [address] | | + + + + + | Atif Delgadillo | ECON | [place], [place] | | | | | [address] | | + + + + + | Caleb Dawn | ECON | Unknown | | + + + + + Care Team Providers + +------+ + | Care Cash Processor Name | Role | Phone | + [...] | | [address] | [place] [place] [address] | | | | | [place], [place] | [place] | | | | | [address] | [address] | | | | | [phone] | | | +--------+ + + + [...] | | | | | [place], [place] | | | | | | [address] | | | | | | | [...] | | | LAB | | | [place], | | | | | | External [...]
--- OUTSIDE RECORDS SUMMARY | ~2020-04-03 | XMS | Encounter Summary ---
Demographics + + + | Address | [address] | | | [place] [address] | + + + | Home Phone [...] [place] | | | | | [address] | | + + + + + | Atif Delgadillo | ECON | [place] | | | | | [address] | | + + + + + | Caleb Dawn | ECON | Unknown | | + + + + + Care Team Providers + +------+ + | Care Nut Sorter Operator Name | Role | Phone | [...] | kidney | MD [address] | [address] | | | | | disease, | Dorothy | [place], [place] | | | | | stage 3 | [place] | [address] | | | | | (moderate) | [place], | [place] | | | | | (HCC) | [place] | [address] Phone: | | | | | Hypertension | [address] | [phone] | | | | | , essential | Phone: | Fax: | | | | | Type 2 | [phone] | [phone] | | | | | diabetes | Fax: | | | | | | mellitus | [phone] | | | | | | with stage 3 | | | | | | | chronic | | | | | | | kidney | | | | | | | disease | | | | | | | (HCC) | | | | | | | Procedures | | | | | | | [place] OFFICE | | | | | | [...] NEPHROLOGY [address] | M, DO [address] | | | | | [address] | [place], [address] | | | | | [place], [place] | [place], [place] | | | | | [address] | [address] | | | | | [phone] | | | +--------+ + + + [...] [place] | | | | | | [address] | | | | | | | | +--------+---------+ + + + documented as of this encounter Visit Diagnoses Not on filedocumented in this encounter"
--- OUTSIDE RECORDS SUMMARY | ~2020-04-03 | XMS | Encounter Summary ---
Demographics + + + | Address | [address] | | | [place] [address] | + + + | Home Phone [...] [place] | | | | | [address] | | + + + + + | Atif Delgadillo | ECON | [place], [place] | | | | | [address] | | + + + + + | Caleb Dawn | ECON | Unknown | | + + + + + Care Team Providers + +------+ + | Care Remote Computer Terminal Operator Name | Role | Phone | [...] NEPHROLOGY [address] | M, DO [address] [place] | disease, stage III | | | | [address] | [place], [place] [address] | (moderate) (Primary | | | | [place], [place] | [place], [place] | Dx); Type 2 diabetes | | | | [address] | [address] | mellitus with stage | | | | [phone] | | 3 chronic kidney | | [...] | | | | | [place], [place] | | | | | | [address] | | | | | | | [...]
--- OUTSIDE RECORDS SUMMARY | ~2020-04-03 | XMS | Encounter Summary ---
Demographics + + + | Address | [address] | | | [place] [address] | + + + | Home Phone [...] [place] | | | | | [address] | | + + + + + | Atif Delgadillo | ECON | [place], [place] | | | | | [address] | | + + + + + | Caleb Dawn | ECON | Unknown | | + + + + + Care Team Providers + +------+ + | Care Solar Energy Specialist Name | Role | Phone | + +------+ + PCP | Unavailable | + +------+ + Encounter Details +--------+ + + + + | Date | Type | Department | Care Team | Description | +--------+ + + + + | 01/22/ | Hospital | [facility] | | | | 2006 | Encounter | MED CTR LABORATORY | | | | | | [address] | | | | | | [place] | | | | | | [address] | | | | | | [phone] | | | +--------+ + + + [...] [place] | | | | | | [address] | | | | | | | | +--------+---------+ + + + documented as of this encounter Visit Diagnoses Not on filedocumented in this encounter"
--- OUTSIDE RECORDS SUMMARY | ~2020-04-03 | XMS | Encounter Summary ---
Demographics + + + | Address | [address] | | | [place] [address] | + + + | Home Phone [...] [place] | | | | | [address] | | + + + + + | Atif Delgadillo | ECON | [place], [place] | | | | | [address] | | + + + + + | Caleb Dawn | ECON | Unknown | | + + + + + Care Team Providers + +------+ + | Care Fiber Analyst Name | Role | Phone | [...] + + | 09/04/ | Office | [facility] | Freddy Sanchez | Chronic kidney | | 2012 | Visit | NEPHROLOGY [address] | M, DO [address] [place] | disease, stage III | | | | [address] | [place], [place] [address] | (moderate) (Primary | | | | [place] | [place] | Dx); Unspecified | | | | [address] | [address] | hypertensive kidney | | | | [phone] | | disease with chronic | | [...] to hypertension x20 years. 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, [place], [place]. Past Medical History: 1. Type II [...] of umbilical hernia, 1959. 3. Nasal surgery, [facility]; 1972. 4. Lumbar laminectomy, 1985. 5. Tonsillectomy, [...] have had 2 cases of this in [facility] alone, in the last 6 months. 4. [...] him back in [address] [facility], [place], [place]. He will have a CBC, CMP, PO4, PTH, Hbaic, and 24 hr urine 1 week before. CC: Hema Garza MD, [place], [place] documented in thi s encounter Plan [...] [place] | | | | | | 405642 | | | | | | | [...] as | | uncontrolled(250.40) ([facility]) Type II or unspecified type diabetes mellitus with renal | | manifestations, not stated as uncontrolled | + + | Other and unspecified hyperlipidemia | + + documented in this encounter
--- OUTSIDE RECORDS SUMMARY | ~2020-04-03 | XMS | Encounter Summary ---
Demographics + + + | Address | [address] | | | [place] [address] | + + + | Home Phone [...] [place] | | | | | [address] | | + + + + + | Atif Delgadillo | ECON | [place], [place] | | | | | [address] | | + + + + + | Caleb Dawn | ECON | Unknown | | + + + + + Care Team Providers + +------+ + | Care Hebrew Cantor Name | Role | Phone | + +------+ + PCP | Unavailable | + +------+ + Encounter Details +--------+ + + + + | Date | Type | Department | Care Team | Description | +--------+ + + + + | 11/29/ | Abstract | [facility] | Freddy Sanchez | | | 2017 | | NEPHROLOGY [address] | M, DO [address] [place] | | | | | [address] | [place], [address] | | | | | [place], [place] | [place] | | | | | [address] | [address] | | | | | [phone] | | | +--------+ + + + [...] Tarik Garza MD, dos: 11-28-16. Sent to [facility].Electronically signed by Tamara Alves at 11/29 8:37 [...] [place] | | | | | | [address] | | | | | | | | +--------+---------+ + + + documented as of this encounter Visit Diagnoses Not on filedocumented in this encounter"
--- OUTSIDE RECORDS SUMMARY | ~2020-04-03 | XMS | Encounter Summary ---
Demographics + + + | Address | [address] | | | [place] [address] | + + + | Home Phone [...] [place] | | | | | [address] | | + + + + + | Atif Delgadillo | ECON | [place], [place] | | | | | [address] | | + + + + + | Caleb Dawn | ECON | Unknown | | + + + + + Care Team Providers + +------+ + | Care Iron Handler Name | Role | Phone | + [...] + + | 12/11/ | Telephone | [facility] | Winsome Fam W, | Gout Pain | | 2013 | | NEPHROLOGY [address] | [address] | | | | | [address] [facility] | [address] [facility] | | | | | [place], [place] | [place] [address] | | | | | [address] | [phone] | | | | | [phone] | | | +--------+ + + + [...] [place] | | | | | | [address] | | | | | | | | +--------+---------+ + + + documented as of this encounter Visit Diagnoses Not on filedocumented in this encounter"
--- OUTSIDE RECORDS SUMMARY | ~2020-04-03 | XMS | Encounter Summary ---
Demographics + + + | Address | [address] | | | [place] [address] | + + + | Home Phone [...] [place] | | | | | [address] | | + + + + + | Atif Delgadillo | ECON | [place], [place] | | | | | [address] | | + + + + + | Caleb Dawn | ECON | Unknown | | + + + + + Care Team Providers + +------+ + | Care Wastewater Project Manager Name | Role | Phone | + +------+ + PCP | Unavailable | + +------+ + Encounter Details +--------+ + + + + | Date | Type | Department | Care Team | Description | +--------+ + + + + | 12/05/ | Hospital | [facility] | Winsome Fam, | | | 2013 - | Encounter | MED CTR MEDICAL | [address] | | | | | [address] [place] | [facility] [address] [place] | | | 12/09/ | | [place] [address] | [place] [address] | | | 2013 | | [phone] | [phone] | | | | | | | [...] Winsome Fam MD - 12/09/2013 10:25 [place] [address] Patient Name: SERGEI TANNER Provider: Winsome Fam MD Unit #: [id number] Locatio n: 4EM : 1945 ADMISSION DATE: [...] on 12/23/2013 at 2 p.m. at the [facility] in [place], [place]. DICTATED BY: Winsome Fam MD Nephrology JOB #: [id number] EXT JOB #:[id number] cc: DO Quique Hall MD, primary care in [place] <<Signature on File>> Olayinka Ching D012/09/13 1443 [...] | | | | | (moderate) ([facility]), | | | | | | [...] | | | | | | [facility] [place] | | | | | | [address] | | | | | | | [...] | + + + + + | [facility] | [address] | [place], [place] | [phone] | | [facility] | | [address] | | | - LABORATORY | | | | + + + + + | [facility] [facility] | [address] | [place], [place] | | | [facility] | | [address], [facility] | | | - LABORATORY [...] + | [facility] | [address] | [place], [place] | [phone] | | [facility] | | [address] | | | - LABORATORY | | | | + + + + + | [facility] | [address] | [place], [place] | | | [facility] | | [address], [facility] | | | - LABORATORY [...] + | [facility] | [address] | [place], [place] | [phone] | | [facility] | | [address] | | | - LABORATORY | | | | + + + + + | [facility] | [address] | [place], [place] | | | [facility] | | [address] | | | - LABORATORY | [...] + | [facility] | [address] | [place] | [phone] | | [facility] | | [address] | | | - LABORATORY | | | | + + + + + | [facility] | [address] | [place] | | | [facility] | | [address], [facility] | | | - LABORATORY [...] + | [facility] | [address] | [place] | [phone] | | [facility] | | [address] | | | - LABORATORY | | | | + + + + + | [facility] | [address] | [place], [place] | | | [facility] | | [address] | | | - LABORATORY | [...] [address] | [place] | [phone] | | [facility] | | [address] | | | - LABORATORY | | | | + + + + + | [address] [facility] | [address] | [place], [place] | | | [facility] | | [address], [facility] | | | - LABORATORY [...] + | [facility] | [address] | [place] | [phone] | | [facility] | | [address] | | | - LABORATORY | | | | + + + + + | [facility] | [address] | [place] | | | [facility] | | [address] | | | - LABORATORY | [...] | | POC | | | [facility] | | | | | | [...] + | [facility] | [address] | [place], [place] | [phone] | | [facility] | | [address] | | | - LABORATORY | | | | + + + + + | [facility] | [address] | [place], [place] | | | [facility] | | [address] [place] [address] | | | - LABORATORY | | [...] [address] | [place] | [phone] | | [facility] | | [address] | | | - LABORATORY | | | | + + + + + | [facility] | [address] | [place] | | | [facility] | | [address], [facility] | | | - LABORATORY [...] + | [facility] | [address] | [place], [place] | [phone] | | [facility] | | [address] | | | - LABORATORY | | | | + + + + + | [facility] | [address] | [place], [place] | | | [facility] | | [address], [facility] | | | - LABORATORY [...] + | [facility] | [address] | [place], [place] | [phone] | | [facility] | | [address] | | | - LABORATORY | | | | + + + + + | [facility] | [address] | [place], [place] | | | [facility] | | [address], [facility] | | | - LABORATORY [...] + | [facility] | [address] | [place] | [phone] | | [facility] | | [address] | | | - LABORATORY | | | | + + + + + | [facility] | [address] | [place] | | | [facility] | | [address] | | | - LABORATORY | [...] + | [facility] | [address] | [place] | [phone] | | [facility] | | [address] | | | - LABORATORY | | | | + + + + + | [facility] | [address] | [place] | | | [facility] | | [id number] [place] [address] | | | - LABORATORY | | [...] + | [facility] | [address] | [place] | [phone] | | [facility] | | [address] | | | - LABORATORY | | | | + + + + + | [address] [facility] | [address] | [place] | | | [facility] | | [address] | | | - LABORATORY | [...] + | [facility] | [address] | [place], [place] | [phone] | | [facility] | | [address] | | | - LABORATORY | | | | + + + + + | [facility] | [address] | [place], [place] | | | [facility] | | [address], [facility] | | | - LABORATORY [...] [address] | [place] | [phone] | | [facility] | | [address] | | | - LABORATORY | | | | + + + + + | [facility] | [address] | [place] | | | [facility] | | [address], [facility] | | | - LABORATORY [...] + | [facility] | [address] | [place], [place] | [phone] | | [facility] | | [address] | | | - LABORATORY | | | | + + + + + | [facility] | [address] | [place], [place] | | | [facility] | | [address], [facility] | | | - LABORATORY [...] + | [facility] | [address] | [place] | [phone] | | [facility] | | [address] | | | - LABORATORY | | [...] | | | | 12/05/13 @1944 by [facility] | | | | | | Clinical [...] [address] | [place] | [phone] | | [facility] | | [address] | | | - LABORATORY | | | | + + + + + | [facility] | [address] | [place] | | | [facility] | | [address], [facility] | | | - LABORATORY [...] + | [facility] | [address] | [place], [place] | [phone] | | [facility] | | [address] | | | - LABORATORY | | | | + + + + + | [facility] | [address] | [place] | | | [facility] | | [id number] [place] [address] | | | - LABORATORY | | [...] + | [facility] | [address] | [place] | [phone] | | [facility] | | [address] | | | - LABORATORY | | | | + + + + + | [facility] | [address] | [place] | | | [facility] | | [address], [facility] | | | - LABORATORY | | | | + + + + + documented in this encounter Visit Diagnoses Not on filedocumented in this encounter"
--- OUTSIDE RECORDS SUMMARY | ~2020-04-03 | XMS | Clinical Summary ---
Demographics + + + | Address | [address] | | | [place] [address] | + + + | Home Phone | | + + + | Preferred Language | Unknown | + + + | Marital Status | Single | + + + | Church Affiliation | Unknown | + + + | Race | Unknown | + + + | Ethnic Group | Unknown | + + + Author + + + | Author | [facility] (Historical as of | | | 07-06-19) | + + + | Organization | [facility] (Historical as of | | | 07-06-19) [...] Team Providers + +------+ + | Care Student Services Representative Name | Role | Phone | [...] | | | | | | [place] [address] | | | | | | [phone] | | | | | | | [...] | | 11/22/2018, 08/30/2017, | | | (Season Ended) | 0 | 10/31/2015 | | + + + [...] +------+-------+ + | AETNA | AETNA | [id number] | | | | | | - | | | | | | | [place] | | | | | | | [place] - | | | | | | | [place] | | | | | + +--------+ +------+-------+ + | MEDICARE | MEDICA | [id number] | | | [address] | | | RE | | | | [place] [address] | | | PART A | | [...] | Self | [birth year] | Home: | [address] [place] [address] | | | al/Fam | | 1945 | [phone] | [place] | | | [place] | | | [address] | [address] | + +--------+ +--------+ + +
--- OUTSIDE RECORDS SUMMARY | ~2020-04-03 | XMS | Encounter Summary ---
Demographics + + + | Address | [address] | | | [place] [address] | + + + | Home Phone [...] [place] | | | | | [address] | | + + + + + | Atif Delgadillo | ECON | [place], [place] | | | | | [address] | | + + + + + | Caleb Dawn | ECON | Unknown | | + + + + + Care Team Providers + +------+ + | Care Help Desk Technician Name | Role | Phone | [...] NEPHROLOGY [address] | M, DO [address] [place] | disease, stage III | | | | [address] | [place], [place] [address] | (moderate) (Primary | | | | [place], [place] | [place], [place] | Dx); Type 2 diabetes | | | | [address] | [address] | mellitus with stage | | | | [phone] | | 3 chronic kidney | | [...] | | | | | [place], [place] | | | | | | [address] | | | | | | | [...]
--- OUTSIDE RECORDS SUMMARY | ~2020-04-03 | XMS | Encounter Summary ---
Demographics + + + | Address | [address] | | | [place] [address] | + + + | Home Phone [...] [place] | | | | | [address] | | + + + + + | Atif Delgadillo | ECON | [place], [place] | | | | | [address] | | + + + + + | Caleb Dawn | ECON | Unknown | | + + + + + Care Team Providers + +------+ + | Care Flexo Operator Name | Role | Phone | [...] [address] | | | | | [place], | [place], | | | | | [place] [address] | [place] [address] | | | | | [phone] | [phone] | | | | | | | [...] [place] | | | | | | [address] | | | | | | | | +--------+---------+ + + + documented as of this encounter Visit Diagnoses Not on filedocumented in this encounter"
--- OUTSIDE RECORDS SUMMARY | ~2020-04-03 | XMS | Encounter Summary ---
Demographics + + + | Address | [address] | | | [place] [address] | + + + | Home Phone [...] [place] | | | | | [address] | | + + + + + | Atif Delgadillo | ECON | [place], [place] | | | | | [address] | | + + + + + | Caleb Dawn | ECON | Unknown | | + + + + + Care Team Providers + +------+ + | Care Continuous Still Operator Name | Role | Phone | [...] NEPHROLOGY [address] | M, DO [address] [place] | | | | | [address] | [place], [place] [address] | | | | | [place], [place] | [place] | | | | | [address] | [address] | | | | | [phone] | | | +--------+ + + + [...] Tarik Garza MD, dos: 11-28-16. Sent to [facility].Electronically signed by Tamara Alves at 11/29 8:37 [...] [place] | | | | | | [address] | | | | | | | | +--------+---------+ + + + documented as of this encounter Visit Diagnoses Not on filedocumented in this encounter"
--- OUTSIDE RECORDS SUMMARY | ~2020-04-03 | XMS | Encounter Summary ---
Demographics + + + | Address | [address] | | | [place] [address] | + + + | Home Phone [...] [place] | | | | | [address] | | + + + + + | Atif Delgadillo | ECON | [place], [place] | | | | | [address] | | + + + + + | Caleb Dawn | ECON | Unknown | | + + + + + Care Team Providers + +------+ + | Care Cryptographer Name | Role | Phone | + +------+ + PCP | Unavailable | + +------+ + Encounter Details +--------+ + + + + | Date | Type | Department | Care Team | Description | +--------+ + + + + | 09/18/ | Abstract | [facility] | Freddy Sancehz | | | 2013 | | NEPHROLOGY [address] | M, DO [address] | | | | | [address] | [place], [place] [address] | | | | | [place], [place] | [place] | | | | | [address] | [address] | | | | | [phone] | | | +--------+ + + + [...] [place] | | | | | | [address] | | | | | | | [...] | | | LAB | | | Sudanese, | | | | | | External [...]
--- OUTSIDE RECORDS SUMMARY | ~2020-04-03 | XMS | Encounter Summary ---
Demographics + + + | Address | [address] | | | [place] [address] | + + + | Home Phone [...] [place] | | | | | [address] | | + + + + + | Atif Delgadillo | ECON | [place], [place] | | | | | [address] | | + + + + + | Caleb Dawn | ECON | Unknown | | + + + + + Care Team Providers + +------+ + | Care Gas Welding Machine Operator Name | Role | Phone | + +------+ + PCP | Unavailable | + +------+ + Encounter Details +--------+ + + + + | Date | Type | Department | Care Team | Description | +--------+ + + + + | 10/10/ | Hospital | [facility] | | | | 2005 - | Encounter | MED CTR ICU [address] | | | | | | [place], | | | | 10/11/ | | [place] [address] | | | | 2005 | | [phone] | | | +--------+ + + + [...] [place] | | | | | | [address] | | | | | | | | +--------+---------+ + + + documented as of this encounter Visit Diagnoses Not on filedocumented in this encounter"
--- OUTSIDE RECORDS SUMMARY | ~2020-04-03 | XMS | Encounter Summary ---
Demographics + + + | Address | [address] | | | [place] [address] | + + + | Home Phone [...] + | [address] Dawn | ECON | [place] | | | | | [address] | | + + + + + | Atif Delgadillo | ECON | [place], [place] | | | | | [address] | | + + + + + | Caleb aDwn | ECON | Unknown | | + + + + + Care Team Providers + +------+ + | Care Hearing Therapist Name | Role | Phone | + +------+ + PCP | Unavailable | + +------+ + Encounter Details +--------+ + + + + | Date | Type | Department | Care Team | Description | +--------+ + + + + | 10/10/ | Hospital | [facility] | | | | 2005 - | Encounter | MED CTR ICU [address] | | | | | | [place], | | | | 10/11/ | | [place] [address] | | | | 2005 | | [phone] | | | +--------+ + + + [...] [place] | | | | | | [address] | | | | | | | | +--------+---------+ + + + documented as of this encounter Visit Diagnoses Not on filedocumented in this encounter"
--- OUTSIDE RECORDS SUMMARY | ~2020-04-03 | XMS | Clinical Summary ---
Demographics + + + | Address | [address] | | | [place] [address] | + + + | Home Phone [...] [place] | | | | | [address] | | + + + + + | Atif Delgadillo | ECON | [place] | | | | | [address] | | + + + + + | Caleb Dawn | ECON | Unknown | | + + + + + Care Team Providers + +------+ + | Care Licensed Nursing Assistant Name | Role | Phone | [...] | | + + + +---------+------+------+-------+ | Harrison-3 Fatty | Take 1,200 mg by | [...] | Overview: Echo, 12/15/2013, LVEF was 75%, [facility] | | KELLE Bacauclear Stress Test, LVEF [...] | | | | | | (moderate) ([facility]) | | | | | | (Primary Dx); Type 2 | | | | | | diabetes mellitus | | | | | | with stage 3 chronic | | | | | | kidney disease, | | | | | | unspecified whether | | | | | | exterminator termite insulin | | | | | | [...] + | Heart disease | Mother | [place] | Had Triple heart bipass. | | | | | | | | | Flores | | + + + + + | Heart failure | Mother | [place] | | | | | | [...] + + + + | Mother | [place] | | Triple CABG | | | Flores | (Age | | | | | 86) | | + + + + + | Mother | [place] | | | | | Flores [...] | | | | | | [facility] | | | | | | [address] | | | | | | | [...] +---------+--------+ | [employer]ENEFIT | MAILHA | [id number] | 11/20/19 | [phone] | | PPO | | PLN | NDLERS | | 18-Pre | 8 | | | | | AETNA | | sent | | | | | | PPO | | | | | | + +--------+ +--------+ +---------+--------+ | MEDICARE | MEDICA | [id number] | 02/19/20 | [phone] | | Medica [...] la | | | 7 (Home) | [address] | + +--------+ +--------+ + + | SERGEI TANNER | Person | Self | | | | | LAROWE | al/Fam | | | | | | | la | | | | | + +--------+ +--------+ + + Advance Directives + + + + + | Type | Date Recorded | Patient | Explanation | | | | Educational Psychology Teacher | | + + + + + | Power of | | | | | Delivery Director | | | | + + + + + | Advance | 05/05/2014 9:24 | | | | Directive | AM | | | + + + + +
--- OUTSIDE RECORDS SUMMARY | ~2020-04-03 | XMS | Encounter Summary ---
Demographics + + + | Address | [address] | | | [place] [address] | + + + | Home Phone [...] [place] | | | | | [address] | | + + + + + | Atif Delgadillo | ECON | [place] | | | | | [address] | | + + + + + | Caleb Dawn | ECON | Unknown | | + + + + + Care Team Providers + +------+ + | Care Health Director Name | Role | Phone | [...] | kidney | MD [address] | [address] | | | | | disease, | [place] | [place], [place] | | | | | stage 3 | [place] | [address] [place] | | | | | (moderate) | Barbara | MIC[place] DENNIS | | | | | (HCC) | [place] | [address] Phone: | | | | | Hypertension | [address] | [phone] | | | | | , essential | Phone: | Fax: | | | | | Type 2 | [phone] | [phone] | | | | | diabetes | Fax: | | | | | | mellitus | [phone] | | | | | | with [...] | 06/25/ | Off-Site | [facility] [place] | Freddy Sanchez | Type 2 diabetes | | 2018 | Visit | NEPHROLOGY [address] | M, DO [address] | mellitus with stage | | | | [address] [place] | [place], [place] | 3 chronic kidney | | | | [place], [place] | [place], [place] | disease, without | | | | [address] | [address] | long-term current | | | | [phone] | | use of insulin (HCC) | [...] (ELOCON) 0.1 % cream Apply topically Daily. Wallis-3 Fatty Acids (FISH OIL) 1200 MG CAPS [...] PHOSEX 4.2 06/20/2018 PTHEX 157.7 (A) 06/20/2018 [id number] 5.7 06/20/2018 Lab Results Component Value Date [...] Anoop Moyer MD, PhD Winsome Crowder MD, [place], [place] Matheus Gregory MD, [place] , [place] documented in th is encounter [...] [place] | | | | | | [address] | | | | | | | [...]
--- OUTSIDE RECORDS SUMMARY | ~2020-04-03 | XMS | Encounter Summary ---
Demographics + + + | Address | [address] | | | [place] [address] | + + + | Home Phone [...] [place] | | | | | [address] | | + + + + + | Atif Delgadillo | ECON | [place], [place] | | | | | [address] | | + + + + + | Caleb Dawn | ECON | Unknown | | + + + + + Care Team Providers + +------+ + | Care Work Station Support Specialist Name | Role | Phone | [...] NEPHROLOGY [address] | M, DO [address] [place] | | | | | [address] [place] | [place], [place] [address] | | | | | [place], [place] | [place] JON | | | | | [address] | [address] | | | | | [phone] | | | +--------+ + + + [...] | | | | | [place], [place] | | | | | | [address] | | | | | | | [...]
--- OUTSIDE RECORDS SUMMARY | ~2020-04-03 | XMS | Encounter Summary ---
Demographics + + + | Address | [address] | | | [place] [address] | + + + | Home Phone [...] [place] | | | | | [address] | | + + + + + | Atif Delgadillo | ECON | [place], [place] | | | | | [address] | | + + + + + | Caleb Dawn | ECON | Unknown | | + + + + + Care Team Providers + +------+ + | Care Flake Cutter Operator Name | Role | Phone [...] NEPHROLOGY [address] | M, DO [address] | disease, stage III | | | | [address] [place] | [place], [place] | (moderate) (Primary | | | | [place], [place] | [place], [place] | Dx); Type II or | | | | [address] | [address] | unspecified type | | | | [phone] | | diabetes mellitus | | | [...] for nephrology appt on 11/25/13 faxed to [facility] [place].Electronically signed by Jelena Wick RN at 03/2013 [...] | | | | | [place] | | | | | | [address] | | | | | | | [...]
--- OUTSIDE RECORDS SUMMARY | ~2020-04-03 | XMS | Clinical Summary ---
Demographics + + + | Address | [address] | | | [place] [address] | + + + | Home Phone | | + + + | Preferred Language | Unknown | + + + | Marital Status | Single | + + + | Mosque Affiliation | Unknown | + + + | Race | Unknown | + + + | Ethnic Group | Unknown | + + + Author + + + | Author | [facility] [employer] (Historical as of | | | 07-06-19) | + + + | Organization | [facility] [employer] [facility] (Historical as of | | | 07-06-19) [...] Team Providers + +------+ + | Care Pipelayer Name | Role | Phone | + [...] | | | | | | [place] [address] | | | | | | [phone] | | | | | | | [...] +------+-------+ + | AETNA | AETNA | [id number] | | | | | | - | | | | | | | [place] | | | | | | | [place] | | | | | | | [place] | | | | | + +--------+ +------+-------+ + | MEDICARE | MEDICA | [id number] | | | [address] | | | RE | | | | [place] [address] | | | PART A | | [...] | Self | [birth year] | Home: | [address] [place] [address] | | | al/Fam | | [phone] | [phone] | [place] | | | la | | | [phone] | [address] | + +--------+ +--------+ + +
--- OUTSIDE RECORDS SUMMARY | ~2020-04-03 | XMS | Encounter Summary ---
Demographics + + + | Address | [address] | | | [place] [address] | + + + | Home Phone [...] [place] | | | | | [address] | | + + + + + | Atif Delgadillo | ECON | [place] | | | | | [address] | | + + + + + | Caleb Dawn | ECON | Unknown | | + + + + + Care Team Providers + +------+ + | Care Culinary Arts Instructor Name | Role | Phone | [...] NEPHROLOGY [address] | M, DO [address] [place] | | | | | [address] | [place], [place] [address] | | | | | [place], [place] | [place], [place] | | | | | [address] | [address] | | | | | [phone] | | | +--------+ + + + [...] [place] | | | | | | [address] | | | | | | | [...]
--- OUTSIDE RECORDS SUMMARY | ~2020-04-03 | XMS | Encounter Summary ---
Demographics + + + | Address | [address] | | | [place] [address] | + + + | Home Phone [...] [place] | | | | | [address] | | + + + + + | Atif Delgadillo | ECON | [place], [place] | | | | | [address] | | + + + + + | Caleb Dawn | ECON | Unknown | | + + + + + Care Team Providers + +------+ + | Care Civil Engineer Helper Name | Role | Phone | [...] NEPHROLOGY [address] | M, DO [address] | | | | | [address] | [place], [place] [address] | | | | | [place], [place] | [place] JON | | | | | [address] | [address] | | | | | [phone] | | | +--------+ + + + [...] | | | | | [place], [place] | | | | | | [address] | | | | | | | [...]
--- OUTSIDE RECORDS SUMMARY | ~2020-04-03 | XMS | Encounter Summary ---
Demographics + + + | Address | [address] | | | [place] [address] | + + + | Home Phone [...] [place] | | | | | [address] | | + + + + + | Atif Delgadillo | ECON | [place], [place] | | | | | [address] | | + + + + + | Caleb Dawn | ECON | Unknown | | + + + + + Care Team Providers + +------+ + | Care Caretaker Name | Role | Phone | + [...] + | 01/23/ | Office | [facility] | [place], | Hyperlipidemia | | 2013 | Visit | CARDIOLOGY [address] | [address] | (Primary Dx); ASCVD | | | | [place], | [place], | (arteriosclerotic | | | | [place] [address] | [place] [address] | cardiovascular | | | | [phone] | [phone] | disease); Type II or | | [...] fraction A. Patient was recently admitted to [place] with a profound anemia with hemoglobin [...] made to ensure accuracy; however, inadvertent computerized water safety instructor errors may be pre sent. Electronically signed [...] | | | | | [place], [place] | | | | | | [address] | | | | | | | [...]
--- OUTSIDE RECORDS SUMMARY | ~2020-04-03 | XMS | Encounter Summary ---
Demographics + + + | Address | [address] | | | [place] [address] | + + + | Home Phone [...] [place] | | | | | [address] | | + + + + + | Atif Delgadillo | ECON | [place], [place] | | | | | [address] | | + + + + + | Caleb Dawn | ECON | Unknown | | + + + + + Care Team Providers + +------+ + | Care Heel Edge Inker Machine Name | Role | Phone | + +------+ + PCP | Unavailable | + +------+ + Encounter Details +--------+ + + + + | Date | Type | Department | Care Team | Description | +--------+ + + + + | 11/22/ | Documentati | [facility] | Freddy Sanchez | | | 2013 | on | NEPHROLOGY [address] | M, DO [address] [place] | | | | | [address] [facility] 100 | [place], [facility] 100 | | | | | [place] | [place] | | | | | [address] | [address] | | | | | [phone] | | | +--------+ + + + [...] [place] | | | | | | [address] | | | | | | | | +--------+---------+ + + + documented as of this encounter Visit Diagnoses Not on filedocumented in this encounter"
--- OUTSIDE RECORDS SUMMARY | ~2020-04-03 | XMS | Encounter Summary ---
Demographics + + + | Address | [address] | | | [place] [address] | + + + | Home Phone [...] [place] | | | | | [address] | | + + + + + | Atif Delgadillo | ECON | [place], [place] | | | | | [address] | | + + + + + | Caleb Dawn | ECON | Unknown | | + + + + + Care Team Providers + +------+ + | Care Prevention Rn Name | Role | Phone | + +------+ + PCP | Unavailable | + +------+ + Encounter Details +--------+ + + + + | Date | Type | Department | Care Team | Description | +--------+ + + + + | 05/04/ | Abstract | [facility] | Freddy Sanchez | | | 2017 | | NEPHROLOGY [address] | M, DO [address] [place] | | | | | [address] | [place], [place] [address] | | | | | [place], [place] | [place] JON | | | | | [address] | [address] | | | | | [phone] | | | +--------+ + + + [...] PDTOutside records: Standing labs orders from [place]. Dos: 05/03/17. Sent to scan. documented [...] [place] | | | | | | [address] | | | | | | | | +--------+---------+ + + + documented as of this encounter Visit Diagnoses Not on filedocumented in this encounter"
--- OUTSIDE RECORDS SUMMARY | ~2020-04-03 | XMS | Encounter Summary ---
Demographics + + + | Address | [address] | | | [place] [address] | + + + | Home Phone [...] [place] | | | | | [address] | | + + + + + | Atif Delgadillo | ECON | [place], [place] | | | | | [address] | | + + + + + | Caleb Dawn | ECON | Unknown | | + + + + + Care Team Providers + +------+ + | Care Wine Cellar Worker Name | Role | Phone | [...] | (Screening) (Log | | | | [place], | [place], | from 01/04/14 to | | | | [place] [address] | [place] [address] | 01/23/14) | | | | [phone] | [phone] | | | | | | | [...] [place] | | | | | | [address] | | | | | | | | +--------+---------+ + + + documented as of this encounter Visit Diagnoses Not on filedocumented in this encounter"
--- OUTSIDE RECORDS SUMMARY | ~2020-04-03 | XMS | Encounter Summary ---
Demographics + + + | Address | [address] | | | [place] [address] | + + + | Home Phone [...] [place] | | | | | [address] | | + + + + + | Atif Delgadillo | ECON | [place], [place] | | | | | [address] | | + + + + + | Caleb Dawn | ECON | Unknown | | + + + + + Care Team Providers + +------+ + | Care Guest Service Team Leader Name | Role | Phone [...] + + | 12/20/ | Telephone | [facility] | Freddy Sanchez | Knee Pain | | 2013 | | NEPHROLOGY [address] | M, DO 301 | (Requesting pain | | | | [address] | [place], [place] | medication) | | | | [place] | [place] | | | | | [address] | [id number] | | | | | [phone] | | | +--------+ + + + [...] [place] | | | | | | [address] | | | | | | | | +--------+---------+ + + + documented as of this encounter Visit Diagnoses Not on filedocumented in this encounter"
--- OUTSIDE RECORDS SUMMARY | ~2020-04-03 | XMS | Encounter Summary ---
Demographics + + + | Address | [address] | | | [place] [address] | + + + | Home Phone [...] [place] | | | | | [address] | | + + + + + | Atif Delgadillo | ECON | [place], [place] | | | | | [address] | | + + + + + | Caleb Dawn | ECON | Unknown | | + + + + + Care Team Providers + +------+ + | Care Principal Quality Engineer Name | Role | Phone | + +------+ + PCP | Unavailable | + +------+ + Encounter Details +--------+ + + + + | Date | Type | Department | Care Team | Description | +--------+ + + + + | 01/02/ | Abstract | [facility] | [place], | Light headedness | | 2013 | | CARDIOLOGY [address] | MD [address] [place] | (Primary Dx); | | | | [place], | [place], | Hypertension; | | | | [place] [address] | [place] [address] | Hyperlipidemia; | | | | [phone] | [phone] | ASCVD | | | | | [...] | | | | | [place], [place] | | | | | | [address] | | | | | | | [...]
--- OUTSIDE RECORDS SUMMARY | ~2020-04-03 | XMS | Encounter Summary ---
Demographics + + + | Address | [address] | | | [place] [address] | + + + | Home Phone [...] + | Author | [facility] | | | and [place] | + + + | Organization | [facility] | | | and [place] | + + + | Address | Unknown | + + + | Phone | Unavailable | + + + Support + + + + + | Name | Relationship | Address | Phone | + + + + + | Hi Dawn | ECON | [place] | | | | | [address] | | + + + + + | Atif Delgadillo | ECON | [place], [place] | | | | | [address] | | + + + + + | Caleb Dawn | ECON | Unknown | | + + + + + Care Team Providers + +------+ + | Care Associate Professor Of Biblical Studies Name | Role | Phone | + [...] NEPHROLOGY [address] | M, DO [address] [place] | disease, stage III | | | | [address] | [place], [place] [address] | (moderate) (Primary | | | | [place], [place] | [place], [place] | Dx); Hypertension; | | | | [address] | [address] | Type II or | | | | [phone] | | unspecified type | | | [...] | | | | | [place], [place] | | | | | | [address] | | | | | | | [...]
--- OUTSIDE RECORDS SUMMARY | ~2020-04-03 | XMS | Encounter Summary ---
Demographics + + + | Address | [address] | | | [place] [address] | + + + | Home Phone [...] [place] | | | | | [address] | | + + + + + | Atif Delgadillo | ECON | [place], [place] | | | | | [address] | | + + + + + | Caleb Dawn | ECON | Unknown | | + + + + + Care Team Providers + +------+ + | Care Residential Therapist Name | Role | Phone | [...] NEPHROLOGY [address] | M, DO [address] [place] | | | | | [address] | [place], [place] [address] | | | | | [place], [place] | [place] JON | | | | | [address] | [address] | | | | | [phone] | | | +--------+ + + + [...] [place] | | | | | | [address] | | | | | | | [...] + | [facility] | [address] | [place] | [phone] | | [facility] | | [address] | | | - LABORATORY | | | | + + + + + | [facility] | [address] | [place], [place] | | | [facility] | | [id number] | | | - LABORATORY [...] | | | LAB | | | [place], | | | | | | External [...] + | [facility] | [address] | [place] | [phone] | | [facility] | | [address] | | | - LABORATORY | | | | + + + + + | [facility] | [address] | [place], [place] | | | [facility] | | [address], [facility] | | | - LABORATORY [...] | | | LAB | | | [place], | | | | | | External [...] + | [facility] | [address] | [place], [place] | [phone] | | [facility] | | [address] | | | - LABORATORY | | | | + + + + + | [facility] | [address] | [place], [place] | | | [facility] | | [address], [facility] | | | - LABORATORY [...] | | | LAB | | | [place], | | | | | | External [...] + | [facility] | [address] | [place] | [phone] | | [facility] | | [address] | | | - LABORATORY | | | | + + + + + | [facility] | | | | | [facility] | | | | | - [...] | | | LAB | | | [place], | | | | | | External [...] [address] | [place] | [phone] | | [facility] | | [address] | | | - LABORATORY | | | | + + + + + | [facility] | | | | | [facility] | | | | | - [...] | | | LAB | | | [place], | | | | | | External [...] + | [facility] | [address] | [place] | [phone] | | [facility] | | [address] | | | - LABORATORY | | | | + + + + + | [facility] [facility] | | | | | [facility] | | | | | - [...] | | | LAB | | | [place], | | | | | | External [...]
--- OUTSIDE RECORDS SUMMARY | ~2020-04-03 | XMS | Encounter Summary ---
Demographics + + + | Address | [address] | | | [place] [address] | + + + | Home Phone [...] [place] | | | | | [address] | | + + + + + | Atif Delgadillo | ECON | [place], [place] | | | | | [address] | | + + + + + | Caleb Dawn | ECON | Unknown | | + + + + + Care Team Providers + +------+ + | Care Air Saw Operator Name | Role | Phone | [...] + + | 01/16/ | Telephone | [facility] | Freddy Sanchez | Medication | | 2014 | | NEPHROLOGY [address] | M, DO [address] [place] | Management | | | | [address] [facility] 100 | [place], [facility] 100 | | | | | [place], [place] | [place], [place] | | | | | [address] | [address] | | | | | [phone] | | | +--------+ + + + [...] [place] | | | | | | [address] | | | | | | | | +--------+---------+ + + + documented as of this encounter Visit Diagnoses Not on filedocumented in this encounter"
--- OUTSIDE RECORDS SUMMARY | ~2020-04-03 | XMS | Encounter Summary ---
Demographics + + + | Address | [address] | | | [place] [address] | + + + | Home Phone [...] [place] | | | | | [address] | | + + + + + | Atif Delgadillo | ECON | [place], [place] | | | | | [address] | | + + + + + | Caleb Dawn | ECON | Unknown | | + + + + + Care Team Providers + +------+ + | Care Automobile Parts Assembler Name | Role | Phone | [...] NEPHROLOGY [address] | M, DO [address] [place] | | | | | [address] | [place], [place] [address] | | | | | [place], [place] | [place] J[place] | | | | | [address] | [address] | | | | | [phone] | | | +--------+ + + + [...] | | | | | [place], [place] | | | | | | [address] | | | | | | | | +--------+---------+ + + + documented as of this encounter Visit Diagnoses Not on filedocumented in this encounter"
--- OUTSIDE RECORDS SUMMARY | ~2020-04-03 | XMS | Encounter Summary ---
Demographics + + + | Address | [address] | | | [place] [address] | + + + | Home Phone [...] [place] | | | | | [address] | | + + + + + | Atif Delgadillo | ECON | [place], [place] | | | | | [address] | | + + + + + | Caleb Dawn | ECON | Unknown | | + + + + + Care Team Providers + +------+ + | Care Tree Killer Name | Role | Phone | + [...] | unspecified | MD [address] | [address] | | | | | type | [place] | [place] | | | | | diabetes | [place] | 100 [place] | | | | | mellitus | [place], | [place], [place] | | | | | with renal | [place] | [address] Phone: | | | | | manifestatio | [address] | [phone] | | | | | ns, not | Phone: | Fax: | | | | | stated as | [phone] | [phone] | | | | | uncontrolled | Fax: | | | | | | [phone] | [phone] | | | | | | (HCC) [...] | | [address] | [place], [place] [address] | disease with chronic | | | | [place] | [place] | kidney disease | | | | [address] | [address] | stage I through | | | | [phone] | | stage IV, or | | [...] losartan, and was seen by his Cardiology, ENVIRONMENTAL PROTECTION FORESTER, Selene Betancourt, who decreased it to 25 [...] 05/15/2014 PHOS 3.5 05/15/2014 PTH 112.9 05/15/2014 TWQ2LAV 5.2 02/12/2014 Lab Results Component Value Date [...] continue the omeprazole 40 mg, QD , 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 He is agreeable to this. 5. Will plan to see him back on 09/22/14, at the [facility], /[place], [place]. He will have a CBC, CMP, PO4, [...] | | | | | [place], [place] | | | | | | [address] | | | | | | | [...]
--- OUTSIDE RECORDS SUMMARY | ~2020-04-03 | XMS | Encounter Summary ---
Demographics + + + | Address | [address] | | | [place] [address] | + + + | Home Phone [...] [place] | | | | | [address] | | + + + + + | Aitf Delgadillo | ECON | [place], [place] | | | | | [address] | | + + + + + | Caleb Dawn | ECON | Unknown | | + + + + + Care Team Providers + +------+ + | Care Cylinder Grinder Name | Role | Phone | [...] NEPHROLOGY [address] | M, DO [address] [place] | | | | | [address] | [place], [place] [address] | | | | | [place], [place] | [place] JON | | | | | [address] | [address] | | | | | [phone] | | | +--------+ + + + [...] | | | | | [place], [place] | | | | | | [address] | | | | | | | [...]
--- OUTSIDE RECORDS SUMMARY | ~2020-04-03 | XMS | Encounter Summary ---
Demographics + + + | Address | [address] | | | [place] [address] | + + + | Home Phone [...] [place] | | | | | [address] | | + + + + + | Atif Delgadillo | ECON | [place], [place] | | | | | [address] | | + + + + + | Caleb Dawn | ECON | Unknown | | + + + + + Care Team Providers + +------+ + | Care Cook Chill Technician Name | Role | Phone | [...] | 05/05/ | Office | [facility] | [place], | Chest pain (Primary | | 2013 | Visit | CARDIOLOGY [address] | [address] | Dx); Hypertension; | | | | [place], | [place], | Hyper[place] | | | | [place] [address] | [place] [address] | | | | | [phone] | [phone] | | | | | | | [...] of breath. He continues to sleep at [facility] with one pillow and using his [...] fraction A. Patient was recently admitted to [facility] with a profound anemia with hemoglobin of [...] made to ensure accuracy; however, inadvertent computerized content strategy lead errors may be pre sent. documented in [...] [place] | | | | | | [address] | | | | | | | [...] mL/min/1.73m2 | [facility] | | | [facility] | RATE,ESTIMATED | | MEDICAL | | | | mL/min/1.57f7Zkxe than | | CENTER - | | [...] + + | Performing | Address | City/[facility]/Zipcode | Phone Number | | Organization | | | | + + + + + | [facility] | [address] | [place], [place] | [phone] | | [facility] | | [address] | | | - LABORATORY | | | | + + + + + | [facility] | [address] | [place], [place] | | | [facility] | | [id number] [place] [address] | | | - LABORATORY | | [...]
--- OUTSIDE RECORDS SUMMARY | ~2020-04-03 | XMS | Encounter Summary ---
Demographics + + + | Address | [address] | | | [place] [address] | + + + | Home Phone [...] [place] | | | | | [address] | | + + + + + | Atif Delgadillo | ECON | [place], [place] | | | | | [address] | | + + + + + | Caleb Dawn | ECON | Unknown | | + + + + + Care Team Providers + +------+ + | Care Production Designer Name | Role | Phone | [...] NEPHROLOGY [address] | M, DO [address] | | | | | [address] | [address] | | | | | [place], [place] | [place] | | | | | [address] | [address] | | | | | [phone] | | | +--------+ + + + [...] | | | | | [place] [place], [place] | | | | | | [address] | | | | | | | | +--------+---------+ + + + documented as of this encounter Visit Diagnoses Not on filedocumented in this encounter"
--- OUTSIDE RECORDS SUMMARY | ~2020-04-03 | XMS | Encounter Summary ---
Demographics + + + | Address | [address] | | | [place] [address] | + + + | Home Phone [...] [place] | | | | | [address] | | + + + + + | Atif Delgadillo | ECON | [place] | | | | | [address] | | + + + + + | Caleb Dawn | ECON | Unknown | | + + + + + Care Team Providers + +------+ + | Care Bi Lead Name | Role | Phone | [...] | kidney | MD [address] | [address] | | | | | disease, | [place] | [place], [place] | | | | | stage 3 | [place] 2 | [address] [place] | | | | | (moderate) | [place], | [place] DENNIS | | | | | (HCC) | [place] | [address] Phone: | | | | | Hypertension | [address] | [phone] | | | | | , essential | Phone: | Fax: | | | | | Type 2 | [phone] | [phone] | | | | | diabetes | Fax: | | | | | | mellitus | [phone] | | | | | | with [...] NEPHROLOGY [address] | M, DO [address] | disease, stage III | | | | [address] | [place], [place] [address] | (moderate) (HCC) | | | | [place] Jon | [place] | (Primary Dx); Type 2 | | | | [address] | [address] | diabetes mellitus | | | | [phone] | | with stage 3 chronic | | | | | | kidney disease, | | | | | | unspecified whether | | | | | | intermediate teacher insulin | | | | | | use ([facility]); | | | | | | Hyperparathyroidism | | | | | | due to renal | | | | | | insufficiency ([facility]); | | | | | [...] 3:00 PM PSTat the CKD Clinic at [place]. documented in this encounter Progress Notes [...] Take 1,000 mg by mouth [place]. [place]-3 Fatty Acids (FISH OIL) 1200 MG CAPS [...] PHOSEX 3.2 09/18/2019 PTHEX 156.2 (A) 09/18/2019 QYS0XPM 5.7 06/20/2018 Lab Results Component Value Date [...] blood pressure. 2. He states that his Instrument And Electrical Technician has a fingerstick HbA1c which showed his [...] 6 months at the CKD Clinic at [place], [place]. He will have a CBC, CMP, [...] | | | | | [place] | | | | | | [address] | | | | | | | [...]
--- OUTSIDE RECORDS SUMMARY | ~2020-04-03 | XMS | Encounter Summary ---
Demographics + + + | Address | [address] | | | [place] [address] | + + + | Home Phone [...] [place] | | | | | [address] | | + + + + + | Atif Delgadillo | ECON | [place], [place] | | | | | [address] | | + + + + + | Caleb Dawn | ECON | Unknown | | + + + + + Care Team Providers + +------+ + | Care Analysis Consultant Name | Role | Phone | [...] | | | | | | [place] [address] | | | | | | [phone] | | | +--------+ + + + [...] [place] | | | | | | [address] | | | | | | | | +--------+---------+ + + + documented as of this encounter Visit Diagnoses Not on filedocumented in this encounter"
--- OUTSIDE RECORDS SUMMARY | ~2020-04-03 | XMS | Encounter Summary ---
Demographics + + + | Address | [address] | | | [place] [address] | + + + | Home Phone [...] | + + + + + | iH Dawn | ECON | [place] | | | | | [address] | | + + + + + | Atif Delgadillo | ECON | [place], [place] | | | | | [address] | | + + + + + | Caleb Dawn | ECON | Unknown | | + + + + + Care Team Providers + +------+ + | Care Drawing Frame Tender Name | Role | Phone | [...] | | [address] | [place], [place] [address] | Dx); Chronic kidney | | | | [place], [place] | [place], [place] | disease, stage IV | | | | [address] | [address] | (severe) ([facility]); | | | | [phone] | | Hypertension | +--------+ + + [...] this encounter Progress Jelena Bay RN - 08/27/2013 3:06 PM PDTLab order for nephrology consultation on 09/04/13 faxed to [facility] lab. Renal ultrasound orders faxed to [facility] Diagnostic Imagglenda cuellar. documented in this encounter Plan of Treatment +--------+---------+ + + + | Date | Type | Specialty | Care Team | Description | +--------+---------+ + + + | 05/20/ | Office | Cardiology | Yumiko Del Valle, | | | 2019 | Visit | | MD Lupe TYLER | | | | | | [place] | | | | | | [address] | | | | | | | | +--------+---------+ + + + + +---------+--------+ + + [...]
--- OUTSIDE RECORDS SUMMARY | ~2020-04-03 | XMS | Encounter Summary ---
Demographics + + + | Address | [address] | | | [place] [address] | + + + | Home Phone [...] + + + + + | Hi Dwan | ECON | [place] | | | | | [address] | | + + + + + | Atif Delgadillo | ECON | [place] | | | | | [address] | | + + + + + | Caleb Dawn | ECON | Unknown | | + + + + + Care Team Providers + +------+ + | Care Human Resource Internship Name | Role | Phone | [...] | kidney | MD 1100 | [address] [place] | | | | | disease, | [place] | [place], [place] | | | | | stage 3 | [place] 2 | [address] | | | | | (moderate) | [place] | MICAH DENNIS | | | | | (HCC) | [place] | [address] Phone: | | | | | Hypertension | [address] | [phone] | | | | | , essential | Phone: | Fax: | | | | | Type 2 | [phone] | [phone] | | | | | diabetes | Fax: | | | | | | mellitus | [phone] | | | | | | with [...] NEPHROLOGY [address] | M, DO [address] [place] | disease, stage III | | | | [address] | [place], [place] [address] | (moderate) (HCC) | | | | [place], [place] | [place] | (Primary Dx); Type 2 | | | | [address] | [address] | diabetes mellitus | | | | [phone] | | with stage 3 chronic | | | | | | kidney disease, | | | | | | unspecified whether | | | | | | jail insulin | | | | | | use ([facility]); | | | | | | Hyperparathyroidism | | | | | | due to renal | | | | | | insufficiency ([facility]); | | | | | | Hypercalcemia [...] ([place]) 0.1 % cream Apply topically Daily. [place]-3 Fatty Acids (FISH OIL) 1200 MG CAPS [...] PHOSEX 2.6 05/02/2019 PTHEX 87.75 (A) 05/02/2019 [id number] 5.7 06/20/2018 Lab Results Component Value Date [...] 4 months at the CKD Clinic at [place], [place]. He will have a CBC, CMP, PO4, HbA1c, iPTH, and spot Urine Pro/Cr ratio one week prior to that. I told him that I would gladly pass the above changes on to Dr. Moyer[facility] PCP. Electronically signed by Freddy Sanchez DO. 05/06/19 14:46 CC: Anoop Vargas MD, [facility] Yumiko Del Valle MD, [facility] Matheus Gregory MD, [facility], [place] documented in thi s encounter Plan of Treatment +--------+---------+ + + + | Date | Type | Specialty | Care Team | Description | +--------+---------+ + + + | 05/20/ | Office | Cardiology | Yumiko Del Valle, | | | 2019 | Visit | | MD Lupe TYLER | | | | | | [place] | | | | | | [address] | | | | | | | [...]
--- OUTSIDE RECORDS SUMMARY | ~2020-04-03 | XMS | Encounter Summary ---
Demographics + + + | Address | [address] | | | [place] [address] | + + + | Home Phone [...] + + + | Author | [facility] | | | and [place] | + + + | Organization | [facility] | | | and [place] | + + + | Address | Unknown | + + + | Phone | Unavailable | + + + Support + + + + + | Name | Relationship | Address | Phone | + + + + + | Hi Dawn | ECON | [place] | | | | | [address] | | + + + + + | Atif Delgadillo | ECON | [place] | | | | | [address] | | + + + + + | Caleb Dawn | ECON | Unknown | | + + + + + Care Team Providers + +------+ + | Care Projection Technician Name | Role | Phone | [...] NEPHROLOGY [address] | M, DO [address] [place] | | | | | [address] [facility] | [place], [place] [address] | | | | | [place], [place] | [place], [place] | | | | | [address] | [address] | | | | | [phone] | | | +--------+ + + + [...] [place] | | | | | | [address] | | | | | | | [...] | EXTERNAL LAB: [facility] | Routin | 06/20/2018 | | Results [...]
--- OUTSIDE RECORDS SUMMARY | ~2020-04-03 | XMS | Encounter Summary ---
Demographics + + + | Address | [address] | | | [place] [address] | + + + | Home Phone [...] [place] | | | | | [address] | | + + + + + | Atif Delgadillo | ECON | [place], [place] | | | | | [address] | | + + + + + [...] NEPHROLOGY [address] | M, DO [address] [place] | disease, stage III | | | | [address] | [place], [place] [address] | (moderate) (Primary | | | | [place], [place] | [place], [place] | Dx) | | | | [address] | [address] | | | | | [phone] | | | +--------+ + + + [...] | | | | | [place], [place] | | | | | | [address] | | | | | | | | +--------+---------+ + + + documented as of this encounter Visit Diagnoses + + | Diagnosis | + + | Chronic kidney disease, stage III (moderate) (HCC) - Primary Chronic kidney disease, | | Stage III (moderate) | + + documented in this encounter"
--- OUTSIDE RECORDS SUMMARY | ~2020-04-03 | XMS | Encounter Summary ---
Demographics + + + | Address | [address] | | | [place] [address] | + + + | Home Phone [...] [place] | | | | | [address] | | + + + + + | Atif Delgadillo | ECON | [place], [place] | | | | | [address] | | + + + + + | Caleb Dawn | ECON | Unknown | | + + + + + Care Team Providers + +------+ + | Care Traffic Attendant Name | Role | Phone | [...] | kidney | MD [address] | [address] [place] | | | | | disease, | [place] | [place] | | | | | stage III | [place] 2 | 100 [place] | | | | | (moderate) | [place], | MIC[place] DENNIS | | | | | (HCC) Type | [place] | [address] Phone: | | | | | [place] | [address] | [phone] | | | | | unspecified | Phone: | Fax: | | | | | type | [phone] | [phone] | | | | | diabetes | Fax: | | | | | | mellitus | [phone] | | | | | | with [...] | | [address] | [place], [place] [address] | 3 chronic kidney | | | | [place], [place] | [place], [place] | disease (HCC) | | | | [address] | [id number] | (Primary Dx); | | | | [phone] | | Chronic kidney | | | [...] in Microbiolog y and is an excellent billet recorder. 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 3. I discussed with Dr. [...] [place] | | | | | | [id number] | | | | | | | [...]
--- OUTSIDE RECORDS SUMMARY | ~2020-04-03 | XMS | Encounter Summary ---
Demographics + + + | Address | [address] | | | [place] [address] | + + + | Home Phone [...] [place] | | | | | [address] | | + + + + + | Atif Delgadillo | ECON | [place], [place] | | | | | [address] | | + + + + + | Caleb Dawn | ECON | Unknown | | + + + + + Care Team Providers + +------+ + | Care Cadmium Liquor Maker Name | Role | Phone | [...] | kidney | MD 1100 | [address] [place] | | | | | disease, | [place] | [place] | | | | | stage III | [place] 2 | [address] [place] | | | | | (moderate) | [place], | MIC[place] DENNIS | | | | | (HCC) Type | [place] | [address] Phone: | | | | | [place] | [address] | [phone] | | | | | unspecified | Phone: | Fax: | | | | | type | [phone] | [phone] | | | | | diabetes | Fax: | | | | | | mellitus | [phone] | | | | | | with [...] | | [address] | [place], [place] [address] | 3 chronic kidney | | | | [place], [place] | [place], [place] | disease (HCC) | | | | [address] | [id number] | (Primary Dx); | | | | [phone] | | Chronic kidney | | | [...] in Microbiolog y and 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 3. I discussed with Dr. [...] [place] | | | | | | [id number] | | | | | | | [...]
--- OUTSIDE RECORDS SUMMARY | ~2020-04-03 | XMS | Encounter Summary ---
Demographics + + + | Address | [address] | | | [place] [address] | + + + | Home Phone [...] [place] | | | | | [address] | | + + + + + | Atif Delgadillo | ECON | [place] | | | | | [address] | | + + + + + | Caleb Dawn | ECON | Unknown | | + + + + + Care Team Providers + +------+ + | Care Fws Faculty Assistant Name | Role | Phone | [...] NEPHROLOGY [address] | M, DO [address] [place] | disease, stage III | | | | [address] | [place], [place] [address] | (moderate) (Primary | | | | [place], [place] | [place] | Dx); Type 2 diabetes | | | | [address] | [address] | mellitus with stage | | | | [phone] | | 3 chronic kidney | | [...] PDTLabs for upcoming nephrology appointment sent to: [facility] documented in t his encounter Plan of Treatment +--------+---------+ + + + | Date | Type | Specialty | Care Team | Description | +--------+---------+ + + + | 05/20/ | Office | Cardiology | Yumiko Del Valle, | | | 2019 | Visit | | MD Lupe TYLER | | | | | | [place] | | | | | | [address] | | | | | | | [...]
--- OUTSIDE RECORDS SUMMARY | ~2020-04-03 | XMS | Encounter Summary ---
Demographics + + + | Address | [address] | | | [place] [address] | + + + | Home Phone [...] [place] | | | | | [address] | | + + + + + | Atfi Delgadillo | ECON | [place], [place] | | | | | [address] | | + + + + + | Caleb Dawn | ECON | Unknown | | + + + + + Care Team Providers + +------+ + | Care Business Excellence Manager Name | Role | Phone | + +------+ + PCP | Unavailable | + +------+ + Encounter Details +--------+ + + + + | Date | Type | Department | Care Team | Description | +--------+ + + + + | 05/05/ | Hospital | [facility] | Timothy, | Hypertension | | 2013 | Encounter | [facility] | [place] [address] | | | | | [address] [place] | [place], | | | | | [place] | [place] [address] | | | | | [address] | [phone] | | | | | [phone] | | | +--------+ + + + [...] | | | | | | | ([facility]) | | | | | | + [...] | | | | | heart failure) ([facility]) | | | | | | + [...] | | | | | | [facility] | | | | | | [address] | | | | | | | [...] | | GLOMERULAR FILTRATION | mL/min/1.73m2 | [facility] | | | ANDORRAN | RATE,ESTIMATED | | MEDICAL | | | | mL/min/1.26y8Fkyx than | | CENTER - | | [...] | | | | | mg/dL | [facility] | | | | | [...] + | [facility] | [address] | [place] | [phone] | | [facility] | | [address] | | | - LABORATORY | | | | + + + + + | [facility] | [address] | [place] | | | [facility] | | [address], [facility] | | | - LABORATORY | | | | + + + + + documented in this encounter Visit Diagnoses + + | Diagnosis | + + | Hypertension Unspecified essential hypertension | + + documented in this encounter"
--- OUTSIDE RECORDS SUMMARY | ~2020-04-03 | XMS | Encounter Summary ---
Demographics + + + | Address | [address] | | | [place] [address] | + + + | Home Phone [...] [place] | | | | | [address] | | + + + + + | Atif Delgadillo | ECON | [place], [place] | | | | | [address] | | + + + + + | Caleb Dawn | ECON | Unknown | | + + + + + Care Team Providers + +------+ + | Care Locomotive Driver Name | Role | Phone | [...] NEPHROLOGY [address] | M, DO [address] [place] | | | | | [address] | [place], [place] [address] | | | | | [place], [place] | [place] | | | | | [address] | [address] | | | | | [phone] | | | +--------+ + + + [...] [place] | | | | | | [address] | | | | | | | | +--------+---------+ + + + documented as of this encounter Visit Diagnoses Not on filedocumented in this encounter"
--- OUTSIDE RECORDS SUMMARY | ~2020-04-03 | XMS | Encounter Summary ---
Demographics + + + | Address | [address] | | | [place] [address] | + + + | Home Phone [...] [place] | | | | | [address] | | + + + + + | Atif Delgadillo | ECON | [place] | | | | | [address] | | + + + + + | Caleb Dawn | ECON | Unknown | | + + + + + Care Team Providers + +------+ + | Care Gun Number Name | Role | Phone | + [...] NEPHROLOGY [address] | M, DO [address] | | | | | [address] | [place], [place] [address] | | | | | [place], [place] | [place], [place] | | | | | [address] | [address] | | | | | [phone] | | | +--------+ + + + [...] I received a FAX from Winsome Mai, BAG CHECKER, [facility], [facility] [place] [facility], [facility]. Apparently, Steve was seen for increased edema [...] mg, Q day. I E-Rx'd these to [facility],his mail order Pharmacy. Apparently, he has an Appt. with Dr. Moyer and will continue check his weight and BP paolo ly. Will F/U with him at the CKD Clinic at [facility], [place] in 4 months, or sooner, if fransisco paz. : Winsome Mai, [facility] Anoop Moyer MD documented in this encounter [...] [place] | | | | | | [address] | | | | | | | | +--------+---------+ + + + documented as of this encounter Visit Diagnoses Not on filedocumented in this encounter"
--- OUTSIDE RECORDS SUMMARY | ~2020-04-03 | XMS | Encounter Summary ---
Demographics + + + | Address | [address] | | | [place] [address] | + + + | Home Phone [...] [place] | | | | | [address] | | + + + + + | Atif Delgadillo | ECON | [place], [place] | | | | | [address] | | + + + + + | Caleb Dawn | ECON | Unknown | | + + + + + Care Team Providers + +------+ + | Care Supervisor Tumblers Name | Role | Phone | + [...] + | 01/23/ | Office | [facility] | [place], | Hyperlipidemia | | 2013 | Visit | CARDIOLOGY [address] | [address] | (Primary Dx); ASCVD | | | | [place], | [place], | (arteriosclerotic | | | | [place] [address] | [place] [address] | cardiovascular | | | | [phone] | [phone] | disease); Type II or | | [...] fraction A. Patient was recently admitted to [facility] with a profound anemia with hemoglobin [...] made to ensure accuracy; however, inadvertent computerized sleeping car service attendant errors may be pre sent. Electronically signed [...] | | | | | [place], [place] | | | | | | [address] | | | | | | | [...]
--- OUTSIDE RECORDS SUMMARY | ~2020-04-03 | XMS | Encounter Summary ---
Demographics + + + | Address | [address] | | | [place] [address] | + + + | Home Phone [...] [place] | | | | | [address] | | + + + + + | Atif Delgadillo | ECON | [place], [place] | | | | | [address] | | + + + + + | Caleb Dawn | ECON | Unknown | | + + + + + Care Team Providers + +------+ + | Care Independent Marketing Consultant Name | Role | Phone | [...] disease, stage III | | | | [facility] | | (moderate); Type II | | | | [place] | | or unspecified type | | | | [address] | | diabetes mellitus | | | | [phone] | | with renal | | | [...] | | | | | [place], [place] | | | | | | [address] | | | | | | | [...] stated as | | uncontrolled(250.40) ([facility]) Type II or unspecified type diabetes mellitus [...]
--- OUTSIDE RECORDS SUMMARY | ~2020-04-03 | XMS | Encounter Summary ---
Demographics + + + | Address | [address] | | | [place] [address] | + + + | Home Phone [...] [place] | | | | | [address] | | + + + + + | Atif Delgadillo | ECON | [place], [place] | | | | | [address] | | + + + + + | Caleb Dawn | ECON | Unknown | | + + + + + Care Team Providers + +------+ + | Care Fireworks Assembly Supervisor Name | Role | Phone | [...] | | [address] | [place], [place] [address] | Dx); Chronic kidney | | | | [place], [place] | [place], [place] | disease, stage IV | | | | [address] | [address] | (severe) ([facility]); | | | | [phone] | | Hypertension | +--------+ + + [...] for nephrology consultation on 09/04/13 faxed to [facility] lab. Renal ultrasound orders faxed to [facility] Diagnostic Imagglenda cuellar. documented in this [...] [place] | | | | | | [address] | | | | | | | [...]
--- OUTSIDE RECORDS SUMMARY | ~2020-04-03 | XMS | Encounter Summary ---
Demographics + + + | Address | [address] | | | [place] [address] | + + + | Home Phone [...] [place] | | | | | [address] | | + + + + + | Atif Delgadillo | ECON | [place], [place] | | | | | [address] | | + + + + + | Caleb Dawn | ECON | Unknown | | + + + + + Care Team Providers + +------+ + | Care Developer Evangelist Name | Role | Phone | + [...] + + | 07/06/ | Telephone | [facility] | Freddy Sanchez | Blood Pressure | | 2016 | | NEPHROLOGY [address] | M, DO [address] [place] | | | | | [address] | [place], [place] [address] | | | | | [place], [place] | [place] [facility] | | | | | [address] | [address] | | | | | [phone] | | | +--------+ + + + [...] [place] | | | | | | [address] | | | | | | | | +--------+---------+ + + + documented as of this encounter Visit Diagnoses Not on filedocumented in this encounter"
--- OUTSIDE RECORDS SUMMARY | ~2020-04-03 | XMS | Encounter Summary ---
Demographics + + + | Address | [address] | | | [place] [address] | + + + | Home Phone [...] [place] | | | | | [address] | | + + + + + | Atif Delgadillo | ECON | [place], [place] | | | | | [address] | | + + + + + | Caleb Dawn | ECON | Unknown | | + + + + + Care Team Providers + +------+ + | Care Wine Pasteurizer Name | Role | Phone | + [...] Deutsch RN | | | | | [address] [address] | | | | | | [place] | | | | | | [address] | | | | | | [phone] | | | +--------+ + + + [...] [place] | | | | | | [address] | | | | | | | | +--------+---------+ + + + documented as of this encounter Visit Diagnoses Not on filedocumented in this encounter"
--- OUTSIDE RECORDS SUMMARY | ~2020-04-03 | XMS | Encounter Summary ---
Demographics + + + | Address | [address] | | | [place] [address] | + + + | Home Phone [...] [place] | | | | | [address] | | + + + + + | Atif Delgadillo | ECON | [place], [place] | | | | | [address] | | + + + + + | Caleb Dawn | ECON | Unknown | | + + + + + Care Team Providers + +------+ + | Care Esl Instructor Name | Role | Phone | [...] NEPHROLOGY [address] | M, DO [address] [place] | disease, stage III | | | | [address] | [place], [place] [address] | (moderate) (Primary | | | | [place], [place] | [place], [place] | Dx); Hypertension | | | | [address] | [address] | | | | | [phone] | | | +--------+ + + + [...] | | | | [place], [place] | | | | | | [address] | | | | | | | [...]
--- OUTSIDE RECORDS SUMMARY | ~2020-04-03 | XMS | Encounter Summary ---
Demographics + + + | Address | [address] | | | [place] [address] | + + + | Home Phone [...] [place] | | | | | [address] | | + + + + + | Atif Delgadillo | ECON | [place], [place] | | | | | [address] | | + + + + + | Caleb Dawn | ECON | Unknown | | + + + + + Care Team Providers + +------+ + | Care Materials Scheduler Name | Role | Phone | [...] [place] | | | | | | [address] | | | | | | [phone] | | | +--------+ + + + [...] [place] | | | | | | [address] | | | | | | | | +--------+---------+ + + + documented as of this encounter Visit Diagnoses Not on filedocumented in this encounter"
--- OUTSIDE RECORDS SUMMARY | 2020-04-03 16:38 | XMS ---
PreManage Notification: SERGEI ESPANA Security Scale Technician Events No recent Security Events currently on file CRITERIA MET - [facility] - Has Care Guidelines CARE PROVIDERS GERMAINE HERMOSILLO Internal Medicine 03/25/2019-Current PHONE: Unknown Jose Alberto has no Care Guidelines for this patient. Care History Medical/Surgical 03/25/2019 [facility] - Patient is currently established with [facility]. If patient is seen in the ED during business hours. Please contact [facility] at [facility]. Care Recommendation: This patient has had 5 [...] providing care. E.D. VISIT COUNT (12 MO.) 2 [facility] TOTAL 2 NOTE: Visits indicate total known visits. 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
[2020-04-03] MEDS ORDERED: PRAVASTATIN SOD40 MG PO (16:50)
[2020-04-03] MEDS ORDERED: PARICALCITOL1 MCG PO (16:52)
--- NOTE | 2020-04-04 12:26 | EKG ---
[facility] [address] [facility] [place], [place] [address] Signed Sinus rhythm with 1st degree AV block Otherwise normal ECG When compared with ECG of 15-MAR-2019 15:23, [place] interval has increased Confirmed by PORSCHE FLETCHER DO ([id number]) on 04/04/2020 12:26:25 PM Electronically Signed By: PORSCHE FLETCHER DO 04/04/20 1226 PATIENT NAME: SERGEI ESPANA Electrocardiogram DATE OF : 41 PHYSICIAN: PORSCHE FLETCHER DO REPORT #: [id number] REPORT IS CONFIDENTIAL AND NOT TO BE RELEASED WITHOUT AUTHORIZATION
== END 2020-04-03 18:40 | disposition home or self-care (01) ==
LOC: ED 16:36
DX: R60.0 Localized edema (principal); E11.9 Type 2 diabetes mellitus without complications; I10 Essential (primary) hypertension; E78.5 Hyperlipidemia, unspecified; Z88.0 Allergy status to penicillin; Z88.8 Allergy status to other drugs, medicaments and biological substances; Z79.899 Other long term (current) drug therapy
CPT/HCPCS: 71046; 80053; 85025; 93005; 93010; 99284-25

== ENCOUNTER 2020-12-14 09:33 | Emergency (ER) | payer OTHER ==
[~2020-12-14] VITALS: Ht 190.5 cm; Wt 129.5 kg
[~2020-12-14 09:33] MED LIST changes: +PARICALCITOL1 MCG PO; +PRAVASTATIN SOD40 MG PO
--- OUTSIDE RECORDS SUMMARY | 2020-12-14 09:36 | XMS ---
PreManage Notification: SERGEI ESPANA Security Hunting Guide Events No recent Security Events currently on file CRITERIA MET - [facility] - Has Care Guidelines CARE PROVIDERS GERMAINE HERMOSILLO Internal Medicine 03/25/2019-Current PHONE: Unknown Jose Alberto has no Care Guidelines for this patient. Care History Medical/Surgical 04/06/2020 [facility] Patient has follow up appointment today with Dr. Hermosillo at 3:00 pm 03/25/2019 [facility] - Patient is currently established with [facility]. If patient is seen in the ED during business hours. Please contact CHWs at [facility]. Care Recommendation: If this patient has had 5 or more Emergency Department visits in the last 12 months.\T\nbsp; Patient will require education on the scope and purpose of the ED as an acute care provider not a Primary Care Provider and should not be utilized for chronic conditions.\T\nbsp; These are guidelines and the provider should exercise clinical judgment when providing care. E.D. VISIT COUNT (12 MO.) 2 [facility] TOTAL 2 NOTE: Visits indicate total known visits. ED/UCC VISIT TRACKING (12 MO.) 12/14/2020 09:34 [facility] TYPE: Emergency COMPLAINT: - URINE PROBLEM 04/03/2020 16:36 [facility] [place] TYPE: Emergency COMPLAINT: - SWELLING LOWER LEGS DIAGNOSES: - Other specified soft tissue disorders - Essential (primary) hypertension - Other mcc (current) drug therapy - Allergy status to penicillin - Allergy status to other drugs, medicaments and biological substances - Type 2 diabetes mellitus without complications - Hyperlipidemia, unspecified - Localized edema INPATIENT VISIT TRACKING (12 MO.) No inpatient visits to display in this time frame [id number]
== END 2020-12-14 11:41 | disposition short-term general hospital (02) ==
LOC: ED 09:33
DX: M54.9 Dorsalgia, unspecified (principal); R32 Unspecified urinary incontinence; Z20.822 Contact with and (suspected) exposure to COVID-19; E11.9 Type 2 diabetes mellitus without complications; I11.0 Hypertensive heart disease with heart failure; E78.5 Hyperlipidemia, unspecified; I50.9 Heart failure, unspecified; Z88.0 Allergy status to penicillin; Z88.8 Allergy status to other drugs, medicaments and biological substances; Z79.899 Other long term (current) drug therapy; Z79.82 Long term (current) use of aspirin
CPT/HCPCS: 80053; 81001; 85025; 99284-25; C9803; U0003

== ENCOUNTER 2020-12-17 05:46 | Inpatient (IN) | payer MEDICARE, OTHER ==
[~2020-12-17] VITALS: Ht 190.5 cm; Wt 126.9 kg
--- OUTSIDE RECORDS SUMMARY | 2020-12-17 05:48 | XMS ---
PreManage Notification: SERGEI SEPANA Security Sales Manager Events No recent Security Events currently on file CRITERIA MET - [facility] - Has Care Guidelines - [facility] - 2 Visits in 30 Days CARE PROVIDERS GERMAINE HERMOSILLO Internal Medicine 03/25/2019-Current PHONE: Unknown Jose Alberto has no Care Guidelines for this patient. Care History Medical/Surgical 12/15/2020 [facility] Patient was seen by PCP, Dr. Hermosillo on 12/14/2020 for wellness exam when patient had total bladder incontinence when leaving.\T\nbsp; PCP advised patient to go to ED for MRI due to concern of neuro spine issue. Patient was sent and admitted to [facility] in [place], [place]. 04/06/2020 [facility] Patient has follow up appointment today with Dr. Hermosillo at 3:00 pm 03/25/2019 [facility] - Patient is currently established with [facility]. If patient is seen in the ED during business hours. Please contact CHWs at [facility]. Care Recommendation: If this patient has [...] providing care. [facility] MO[facility] TOTAL 4 NOTE: Visits indicate total known visits. ED/UCC VISIT TRACKING (12 MO.) 12/17/2020 05:46 [facility] [place] TYPE: Emergency COMPLAINT: - FALL 12/14/2020 12:46 [facility]. Mary OlayinkaRick [facility] TYPE: Emergency DIAGNOSES: - Cauda equina syndrome - Back Pain - Unspecified urinary incontinence - Loss of bladder control - Spinal stenosis, lumbar region without neurogenic claudication 12/14/2020 09:34 [facility] TYPE: Emergency COMPLAINT: - URINE PROBLEM DIAGNOSES: - Dorsalgia, unspecified - Allergy status to penicillin - Unspecified urinary incontinence - Allergy status to other drugs, medicaments and biological substances - intermediate (current) use of aspirin - Other snf (current) drug therapy - Hypertensive heart disease with heart failure - Heart failure, unspecified - Type 2 diabetes mellitus without complications - Hyperlipidemia, unspecified 04/03/2020 16:36 [facility] [place] TYPE: Emergency COMPLAINT: - SWELLING LOWER LEGS DIAGNOSES: - Other specified soft tissue disorders - Essential (primary) hypertension - Other snf (current) drug therapy - Allergy status to penicillin - Allergy status to other drugs, medicaments and biological substances - Type 2 diabetes mellitus without complications - Hyperlipidemia, unspecified - Localized edema INPATIENT VISIT TRACKING (12 MO.) 12/14/2020 12:46 [facility] Beti [facility] TYPE: Surgical Services DIAGNOSES: - Cauda equina syndrome - Spinal stenosis, lumbar region without neurogenic claudication - Unspecified urinary incontinence [id number]
[2020-12-17] MEDS ORDERED: OXYCODONE HCL5 MG PO (06:31)
[2020-12-17] MEDS ORDERED: CARVEDILOL6.25 MG PO (08:52)
[2020-12-17] MEDS ORDERED: FUROSEMIDE80 MG PO (08:53)
--- NOTE | 2020-12-17 11:10 | NUR ---
1105: Pt arrived to med surg room 113. He was transfered to the bed and oriented to his room and the use of the call lam.
[2020-12-17] MEDS ORDERED: HYDROCODON-ACE1 EA10 PO (13:17)
[2020-12-17] MEDS ORDERED: LACTULOSE10 GM/151 PO (13:17)
--- NOTE | 2020-12-17 13:21 | NUR ---
MED REC COMPLETE
--- NOTE | 2020-12-17 13:57 | NUR ---
PT STATES HIS PAIN IN HIS BUTTOCKS THAT RUNS DOWN HIS LEGS IS INCREASING AND IS NOW UP TO A 6, PT MEDICATED ORDERED, SEE EMAR. PT DENIES ANY OTHER PROBLEMS AT THIS TIME. SEE ASSESSMENT.
--- NOTE | 2020-12-17 14:56 | NUR ---
Santiago states his pain level is a 3/10 at this time which he states is acceptable. Santiago denies any needs at this time. Call lam is within reach.
--- NOTE | 2020-12-17 16:17 | NUR ---
Pt sleeping at this time. Call lam within reach.
--- NOTE | 2020-12-17 16:37 | NUR ---
SPOKE WITH PATIENT IN ROOM. I HAD SEEN HIM IN ED THIS MORNING. WE DISCUSSED POSSIBLE DISCHARGE IDEAS. HE FEELS HE WILL BE ABLE TO GET UP AND GO HOME AFTER SOME HELP WITH PT. HE STATES HIS PAIN IS IMPROVED SINCE ED. HE DOES NOT LIKE THE IDEA OF A REHAB/CARE HOME. WE DISCUSSED THAT HE WILL NOT QUALIFY WITH INPATIENT STAY NEEDED AT THIS TIME. WE DISCUSSED POSSIBLE SHORT STAY AT ASSISTED LIVING FACILITY IF HE IS UNABLE TO GET AROUND OR HIRING HELP AT HOME. HE FEELS HE HAS FUNDS FOR THIS IF NEEDED. BROCHURE GIVEN FOR HELPING HANDS. HE HAS NO FAMILY IN STATE. HE HAS AND DRIVES A CAR, IS RETIRED. HAS FRIENDS IN THE AREA WHO DRIVE HIM WHEN HE NEEDS AND CALL TO CHECK UP ON HIM, BUT DOESN'T FEEL ANY CAN STAY WITH HIM. DISCUSSED THAT HE NEEDS TO GET OOB OFTEN AND THAT IF HE WILL NEED A WALKER FOR STABILITY WE CAN WORK ON THAT TOMORROW. PATIENT IS VERY PLEASANT AND COOPERATIVE. WILL CONTINUE TO FOLLOW.
--- NOTE | 2020-12-17 16:55 | NUR ---
Pt resting in his bed and states his pain level is now a 2/10 and he denies any other problems.
--- NOTE | 2020-12-17 18:31 | NUR ---
Pt states his pain is a 2/10 at this time which he states is acceptable to him. Call lam within reach.
--- NOTE | 2020-12-17 19:30 | NUR ---
REPORT RECEIVED FROM DAYLIN MEYERS. PT RESTING IN BED, STATES PAIN IS 2/10, MADE PLAN WITH PT FOR MEDICATIONS. NO FURTHER REQUESTS AT THIS TIME. CALL LIGHT IN REACH.
--- NOTE | 2020-12-17 20:02 | NUR ---
MOVED PT FROM ROOM 113 TO 115 FOR PT TO BE IN NEGATIVE PRESSURE ROOM. HE IS OK WITH THE MOVE AND DENIES NEEDS AT THIS TIME. CALL LIGHT IS CLOSE.
--- NOTE | 2020-12-17 21:00 | NUR ---
IN TO GET PT VITALS, PT C/O PAIN, RN IS GOING TO THE RM, NO FURTHER NEEDS AT THIS TIME
--- NOTE | 2020-12-17 21:01 | NUR ---
MEDICATIONS ADMINISTERED. PT STATES PAIN IS PRESENT, 04/29, REQUESTS PRN MEDS, SEE MAR. ASSESSMENT COMPLETE. PT CBG 177, 3UNITS SS ADMINISTERED. URINAL AT BEDSIDE. PT HAS OWN CPAP, AT BEDSIDE READY FOR USE. WATER REFRESHED. NO FURTHER REQUESTS AT THIS TIME, CALL LIGHT INREACH
--- NOTE | 2020-12-17 23:12 | NUR ---
ROUNDED ON PATIENT, RESTING IN BED WITH EYES CLOSED. BREATHING EVEN AND UNLABORED, IS NOT CURRENTLY USING CPAP. CALL LIGHT IN REACH.
--- NOTE | 2020-12-18 02:06 | NUR ---
ROUNDED ON PATIENT, RESTING IN BED WITH EYES CLOSED. CPAP NOT IN USE AT THIS TIME. NO APPARENT NEEDS. CALL LIGHT IN REACH.
--- NOTE | 2020-12-18 04:35 | NUR ---
ROUNDED ON PATIENT, RESTING IN BED WITH EYES CLOSED. CPAP NOT IN USE AT THIS TIME. NO APPARENT NEEDS NOTED, CALL LIGHT IN REACH.
--- NOTE | 2020-12-18 05:35 | NUR ---
VITALS AND I/O'S COMPLETED. PT RESTING IN BED, STATES COMFORTABLE WITH NO PAIN. WATER REFILLED. LAB IN ROOM, CALL LIGHT IN REACH.
--- NOTE | 2020-12-18 07:24 | NUR ---
0708: REPORT RECEIVED FROM CHIOMA MEYERS. PT SLEEPING AT THIS TIME.
--- NOTE | 2020-12-18 07:44 | NUR ---
PT AWOKE AND STATES HIS PAIN WAS A 7/10 WHEN HE AWOKE, HE WAS MEDICATED ORDERED. PT ALSO STATES HE HAS SHARP PAIN IN HIS BUTTOCKS AND DOWN HIS HAMSTRINGS WITH MOVEMENT WHICH DOES EASE UP WITH REST, HE DENIES PAIN AT THE INCISION SITE. THE LUMBAR INCISION SITE CONTINUES TO APPEAR HEALTHY WITHOUT ANY SIGNS OF INFECTION, CHAD REMAIN INTACT, SITE OPEN TO AIR. PT DENIES ANY OTHER PROBLEMS. ASSESSMENT COMPLETED, WILL CONTINUE TO MONITOR.
--- NOTE | 2020-12-18 08:16 | NUR ---
Pt now states his pain has decreased to a 3 but that he continues to have sharp pains with movement. Pt given ordered scheduled medications at this time, see emar.
--- NOTE | 2020-12-18 10:00 | NUR ---
Spoke with Steve. He states he is having pain he cannot tolerate. He did not tolerate PT per Stewart. Spoke with OT and per their eval pt is unable to go home. Spoke with Dr. Nelson and he will start IV pain meds and make pt an IP.
--- NOTE | 2020-12-18 10:08 | NUR ---
Santiago is working with OT at this time and states his pain level is a 2/10 while sitting at the bedside but that it increased way up to a 9-10/10 while attempting to stand this am with physical therapy.
--- NOTE | 2020-12-18 11:01 | NUR ---
Pt complains of pain that is a 2 but he is having frequent bouts of sharp pains in his buttocks and down his legs that are a 10/10. He states pain is worse with movement but that the pain just happened at rest as well at a 10/10. Pt medicated as ordered. Will continue to monitor.
--- NOTE | 2020-12-18 12:08 | NUR ---
PT NOW RATES HIS PAIN AT A 1-2/10, EXCEPT WHEN HE HAS A "TWINGE". HE STATES THE LAST EPISODE WAS NOT THAT LONG AGO AND HIS PAIN WHEN UP TO AN 8 BUT THAT IT ONLY LASTED " A COUPLE OF SECONDS".
--- NOTE | 2020-12-18 12:31 | NUR ---
Update from Dr Nelson, he spoke with pt's surgeon and he felt he should be on bed rest for the weekend. Discussed plan with Dr. Nelson and will send chart to SNF. I had discussed with Steve and his first choice is [facility] and second is [facility]. Attempted to contact T and I am unable to reach anyone. Called and left a message for [facility] and received a return call. Face sheet, covid test, med list, H&P,progress notes, PT/OT eval and notes faxed to [facility].
--- NOTE | 2020-12-18 13:29 | NUR ---
PT STATES HIS BACK PAIN IS "MUCH BETTER" AT THIS TIME AND HE DENIES ANY NEEDS AT THIS TIME. ASSESSMENT COMPLETED.
--- NOTE | 2020-12-18 15:03 | NUR ---
Pt states he has not had a bm since 12/15/20 and he declined to have any additional medications for his bowels as he is concerned about having loose stools.
--- NOTE | 2020-12-18 15:20 | NUR ---
PT DENIES ANY PAIN OR OTHER NEEDS AT THIS TIME. CALL HANNAH WITHIN REACH.
--- NOTE | 2020-12-18 15:50 | NUR ---
I ASKED PATIENT THIS MORNING IF HE WOULD LIKE TO TAKE A BED BATH OR WASH HIS HAIR AND HE SAID NO. I TOLD HIM IF YOU DO CHANGE YOUR MIND THAN PLEASE CALL ME.
--- NOTE | 2020-12-18 15:52 | NUR ---
I DID HIS BLOOD SUGAR CHECK FOR BREAKFAST AND LUNCH. I ALSO SET HIM UP FOR HIS BREAKFAST AND LUNCH. THIS MORNING HE DID WASH HIS FACE BUT HE REFUSED TO BRUSH HIS TEETH DO TO BEING IN PAIN.
--- NOTE | 2020-12-18 16:58 | NUR ---
DANNA STATES HIS PAIN HAS GREATLY IMPROVED WITH NOW HAVING MUCH FEWER TWINGES AND HE STATES THEY ARE ONLY A 4-5/10 WHEN THEY HAPPEN AND HIS PAIN IS NOW A 1/10. HE ALSO STATES THIS IS NOW RESTING AND NOT WORKING WITH THERAPY AND NOT TRYING TO WALK. HE DENIES ANY NEEDS AT THIS TIME AND HIS CALL HANNAH IS WITHIN REACH.
--- NOTE | 2020-12-18 17:46 | NUR ---
PT CONTINUES TO STATE HIS PAIN IN UNDER CONTROL AT THIS TIME WHILE AT REST. CALL HANNAH WITHIN REACH.
--- NOTE | 2020-12-18 18:48 | NUR ---
Pt assisted to the bsc as he states he needs to have a bm. Pt able to stand with the use of the walker and 2 person assist and get to and from the commode and back to bed. He passed a large amount of gas but had no BM, but did void. Pt states he had some pain with the movement but that it was much better than it was with his therapy this amBeny barlow the gabapentin is what has made the largest improvement in his pain level.
--- NOTE | 2020-12-18 19:10 | NUR ---
REPORT RECEIVED FROM DAYLIN MEYERS, PT RESTING IN BED, STATES PAIN IS AT TOLERABLE LEVEL RIGHT NOW, 02/27. REPORTS NO OTHER NEEDS AT THIS TIME, MADE PLAN WITH PT FOR EVENING MEDICATIONS. CALL LIGHT IN REACH.
--- NOTE | 2020-12-18 20:45 | NUR ---
SCHEDULED MEDICATIONS ADMINISTERED. PT REPORTS 6/10 PAIN, PRN MEDICATION ADMINISTERED. VITALS AND I/O'S COMPLETE, VSS. WATER REFILLED. PT STATES NO OTHER NEEDS AT THIS TIME. CALL LIGHT IN REACH
--- NOTE | 2020-12-18 22:15 | NUR ---
ROUNDED ON PATIENT, IN BED WITH EYES CLOSED, BREATHING REGULAR. NO APPARENT NEEDS AT THIS TIME, CALL LIGHT IN REACH
--- NOTE | 2020-12-19 00:17 | NUR ---
ROUNDED ON PATIENT, LAYING IN BED WITH EYES CLOSED AND BREATHING REGULAR. NO APPARENT NEEDS AT THIS TIME. CALL LIGHT IN REACH.
--- NOTE | 2020-12-19 02:47 | NUR ---
Rounded on patient, resting in bed with CPAP in place, breathing evenly, unlabored. No apparent needs at this time. Call light in reach.
--- NOTE | 2020-12-19 05:11 | NUR ---
VITALS AND I/O'S COMPLETE. PT REQUESTS PRN MEDICATION FOR 3/10 PAIN, STATES DOES NOT WANT "TO GET BEHIND" ON PAIN AGAIN. 1MG MORPHINE ADMINISTERED. WATER REFILLED. PT STATES SLEPT WELL WITH CPAP ON, FEELS RESTED. NO OTHER NEEDS AT THIS TIME.
--- NOTE | 2020-12-19 07:32 | NUR ---
0720: Report received from Viviane MEYERS. Pt sleeping at this time with his call lam within reach.
--- NOTE | 2020-12-19 08:47 | NUR ---
PT RESTING IN HIS BED AND HE STATES HE SLEPT WELL, AND THAT HE HAS NO PAIN AT THIS TIME WHILE AT REST. INCISION SITE REMAINS INTACT AND APPEARS HEALTHY WITH CHAD IN PLACE. ASSESSMENT COMPLETED.
--- NOTE | 2020-12-19 10:27 | NUR ---
Pt sleeping at this time, call lam within reach.
--- NOTE | 2020-12-19 11:16 | NUR ---
Zenon has not had a bm since 12/15/20 and he was given a bisacodyl suppository as ordered. Santiago states his pain was a 0-1/10 prior and states it increased to a 6-7/10 with the movement to receive his suppository. As soon as he was repositioned after the suppository he states his pain dropped right back down to a 1/10. Pt denies any new problems and continues to deny any abd pain or cramping.
--- NOTE | 2020-12-19 12:49 | NUR ---
PT JUST HAD A LARGE FORMED BM ON THE BSC AND HAS BEEN ASSISTED BACK TO BED. HE STATES THE PAIN WAS UP TO AN 8 WITH THE MOVEMENT BUT STATES IT QUICKLY DECREASED SOON THE MOVEMENT STOPPED. HE STATES HIS PAIN IS NOW A 2-3 WHICH HE STATES IS ACCEPTABLE. PT DENIES ANY NEW PROBLEMS OR CONCERNS. ASSESSMENT COMPLETED.
--- NOTE | 2020-12-19 13:43 | NUR ---
PT REMAINS ON BEDREST AND STATES HIS PAIN LEVEL IS A 1-2 AT THIS TIME.
--- NOTE | 2020-12-19 15:03 | NUR ---
PT WATCHING TV, CALL HANNAH WITHIN REACH. PT DENIES ANY NEEDS, PAIN LEVEL A 11/29.
--- NOTE | 2020-12-19 17:20 | NUR ---
NURSE DID HIS BLOOD SUGAR CHECK. ALSO WE CHANGED PATIENT'S GOWN AND WHITE BUTCH BECAUSE PATIENT HAD AN ACCIDENT WITH HIS URINAL.
--- NOTE | 2020-12-19 19:15 | NUR ---
PT LYING IN BED. SHIFT REPORT RECIEVED BY RN. CALL LIGHT IN REACH.
--- NOTE | 2020-12-19 21:06 | NUR ---
pt carlton, "Im scared, I have that heavy thing on my face, I do not know where haris or why haris here, and whats that thing on my face". Pt on aerosol precautions, took CPAP mask off, reoriented, was very anxious, called her daughter via cell phone. calmed down afterdaughter explained and received several cues from this RN. sats 88-89% on room air, 92-95% after keeping oxymask on. calmer, all procedures explained, Lungs dim at bases, takes shallow breaths, very obese. red under breast and pannus areas and open areas under breasts and L pannus area. powder applied as per orders. bruising on arms healing. sl RW patent. generalized edema, legs elevated. f/c patent.Call light, home cell phone at hands reach, fluids at bedside. Pt on aerosol precautions
--- NOTE | 2020-12-19 22:02 | NUR ---
PT LYING IN BED. VS STABLE. SCHEDULED MEDS GIVEN. I AND O'S COMPLETE. UO 700ML NOTED. CALL LIGHT IN REACH. NO FURTHER NEEDS.
--- NOTE | 2020-12-19 22:29 | NUR ---
PT LYING IN BED. EYES CLOSED. RR WNL WITH UNLABORED BREATHING. CALL LIGHT IN REACH.
--- NOTE | 2020-12-20 00:44 | NUR ---
PT LYING IN BED. CPAP INTACT PER REQUEST. EMPTIED URINAL CALL LIGHT IN REACH. NO FURTHER NEEDS.
--- NOTE | 2020-12-20 01:15 | NUR ---
PT LYING IN BED. RR WNL WITH UNLABORED BREATHING. CALL LIGHT IN REACH.
--- NOTE | 2020-12-20 03:13 | NUR ---
PT LYING IN BED. EYES CLOSED. CPAP INTACT. RR WNL WITH UNLABORED BREATHING. CALL LIGHT IN REACH.
--- NOTE | 2020-12-20 05:12 | NUR ---
PT LYING IN BED. ONE PERSON TO THE BATHROOM. WORE CPAP THROUGHOUT THE NIGHT.IV SALINE LOCKED.
--- NOTE | 2020-12-20 05:40 | NUR ---
PT LYING IN BED. EMPTIED URINAL. VS STABLE. I AND O'S COMPLETE. ASSESSMENT DONE. NO CHANGES ON CHAD IN BACK. PT DENIES PAIN AND SOB. REPOSITIONED IN BED. CALL LIGHT IN REACH.
--- NOTE | 2020-12-20 07:15 | NUR ---
BEDSIDE HANDOFF REPORT RECEIVED FROM [employer] BUSINESS ANALYST RN. PT SLEEPING, LEFT UNDISTURBED.
--- NOTE | 2020-12-20 08:45 | NUR ---
PT RESTING IN BED. PT COMPLAINT OF INCREASED PAIN THIS AM, GIVEN 5MG OXYCODONE AND SCHEDULED TYLENOL. PT ON ROOM AIR, LUNG SOUNDS CLEAR, DENIES SOB. BOWEL TONES ACTIVE, DENIES NAUSEA, TOLERATED BREAKFAST. PT WITH NUMBNESS/TINGLING IN BLE, HX OF NEUROPATHY, PT STATES AT BASELINE. BACK PAIN FROM GLUTEUS TO UPPER THIGHS, 5/10. IV SALINE LOCKED. BACK WITH CHAD IN PLACE, EDGES WELL APPROXIMATED, NO REDNESS OR SWELLING NOTED. PT DENIES OTHER NEEDS AT THIS TIME. WILL CONTINUE TO MONITOR PAIN.
--- NOTE | 2020-12-20 09:45 | NUR ---
PT CONITNUES TO RATE PAIN 5/10, NO CHANGE AFTER OXYCODONE. PT GIVEN 1 MG IV MORPHINE AND ADDITIONAL 5MG PO OXYCODONE. PT DENIES OTHER NEEDS AT THIS TIME, WILL CONTINUE TO MONITOR PAIN.
--- NOTE | 2020-12-20 12:04 | NUR ---
pt given 1 unit ss humalog for blood glucose 166. pt assisted to chair for lunch, 1-2pa with fww, pt report of legs feeling weak but was much stronger than from when he was admitted. pt denies other needs at this time.
--- NOTE | 2020-12-20 12:23 | NUR ---
THE NURSE AND I GOT PATIENT UP TO THE CHAIR. PATIENT DID GOOD. PATIENT IS NOW SITTING IN HIS CHAIR EATING HIS LUNCH. BED LINENS CHANGED.
--- NOTE | 2020-12-20 15:07 | NUR ---
PT ASSISTED FROM BSC TO BED. PT STATES PAIN IS 2-3, GIVEN SCHEDULED TYLENOL, PT DENIES NEED FOR OXYCODONE AT THIS TIME. NO ACUTE CHANGES. PT DENIES NEEDS.
--- NOTE | 2020-12-20 15:59 | NUR ---
ANSWERED PATIENT'S CALL HE NEEDED SOME MORE ICE WATER AND HE DROPPED HIS PILLOW.
--- NOTE | 2020-12-20 18:44 | NUR ---
PT WITH INCREASED PAIN THIS AM, RESPONDED WELL TO OXYCODONE 10MG AND 1MG IV MORPHINE FOR BREAKTHROUGH PAIN, PT HAS HAD MINIMAL PAIN THROUGHOUT THE REST OF THE SHIFT. PT 1-2PA WITH FWW, BETTER STRENGTH TODAY, SAT IN CHAIR FOR LUNCH. TAKING A SHOWER THIS EVENING. IV SALINE LOCKED. TOLERATING DIET. VOIDING QS.
--- NOTE | 2020-12-20 19:30 | NUR ---
PATIENT HAD HIS SHOWER ASSISTED BY ALEX LOVE. 2 PA THIS KATE AND ALEX HELPED PATIENT BOOST UP IN BED.
--- NOTE | 2020-12-20 19:37 | NUR ---
PT LYING IN BED. SHIFT REPORT RECIEVED BY RN. CALL LIGHT IN REACH.
--- NOTE | 2020-12-20 20:40 | NUR ---
PT LYING IN BED. PRN PAIN MEDS GIVEN PER REQUEST. STATES HAVING PAIN 7/10 AFTER SHOWER. REPOSITIONED PT IN BED. VS STABLE. ASSESSMENT COMPLETE. I AND O'S DONE. SCHEDULED MEDS GIVEN. DENIES NUMBNESS OR TINGLING AND NO SOB. CALL LIGHT IN REACH. IV SALINE LOCKED. NO FURTHER NEEDS AT THIS TIME.
--- NOTE | 2020-12-20 21:50 | NUR ---
PT LYING IN BED. EYES CLOSED. RR WNL WITH UNLABORED BREATHING. CALL LIGHT IN REACH.
--- NOTE | 2020-12-21 01:16 | NUR ---
PT LYING IN BED. EYES CLOSED. RR WNL WITH UNLABORED BREATHING. CALL LIGHT IN REACH.
--- NOTE | 2020-12-21 03:52 | NUR ---
PT LYING IN BED. WATER GIVEN PER REQUEST. PT DENIES PAIN AT THIS TIME. PT TOOK OFF CPAP DURING THIS TIME. CALL LIGHT IN REACH.
--- NOTE | 2020-12-21 05:15 | NUR ---
PT LYING IN BED. PT STATES HAVING 3/10 PAIN AND TOLERABLE. REPOSITIONED PT IN BED. VS STABLE. CALL LIGHT IN REACH.
--- NOTE | 2020-12-21 08:08 | NUR ---
PATIENT WAS IN BED, NURSE AND THIS SEAFOOD MANAGER STOOD BY WHILE PATIENT MOVED OVER TO THE CHAIR USING ASSISTANCE FROM HIS WALKER, PATIENT SEEMED TO WELL AND STATED HIS PAIN LEVEL WAS A 5/10, PATIENT'S GLUCOSE LEVELWAS CHECKED AND PATIENT IS CURRENTLY EATING BREAKFAST.
--- NOTE | 2020-12-21 08:09 | NUR ---
RECIEVED REPORT FROM CONTROL SYSTEMS DESIGNER. PT LAYING IN BED WITH EYES CLOSED. NO SIGNS OF DISTRESS. CALL LIGHT WITHIN REACH.
--- NOTE | 2020-12-21 08:11 | NUR ---
PT UP TO CHAIR WITH 2 PERSON STAND BY ASSIST. PT TOLERATED WELL WITH LESS PAIN THEN PREVIOUS DAYS. SEED SALES MANAGER IN TO CHECK BLOOD SUGAR. BREAKFAST AT BEDSIDE. CALL LIGHT IN REACH.
--- NOTE | 2020-12-21 10:12 | NUR ---
PATIENT ASSESSMENT DONE. JUST FINISHED WITH PT AND REPORTS PAIN AT 8 IN LEFT LEG AND 5 IN RIGHT LEG. 2+PITTING EDEMA IN THE RIGHT LEG. 1+ EDEMA IN THE LEFT LEG. SCHEDULED MEDS GIVEN. WALKED WITH 1 PERSON ASSIST AND WALKER 43 FEET. REPORTS WEAKNESS IN BOTH OF HIS LOWER EXTREMITIES. BACK SITTING IN CHAIR. NO OTHER NEEDS OR CONCERNS AT THIS TIME. CALL LIGHT WITHIN REACH.
--- NOTE | 2020-12-21 10:19 | NUR ---
PATIENT IN ROOM, PATIENT WORKED WITH PHYSICAL THERAPY, PATIENT NEEDED NO OTHER ASSISTANCE, STATED HE SHOWERED YESTERDAY SO HE DOESN'T NEED ONE TODAY, WILL CHART IN ADL'S. PATIENT CURRENTLY NEEDED NO OTHER ASSISTANCE.
--- NOTE | 2020-12-21 11:42 | NUR ---
SPOKE WITH PATIENT IN ROOM. PATIENT IS UP IN CHAIR, SHAREPOINT MANAGER IN MAKING BED. HE STATES HE IS FEELING AND MOVING "MUCH BETTER". HE REMEMBERS ME FROM LAST WEEK. HE STATES HE IS STILL A LITTLE CONCERNED ABOUT GOING HOME, FEELS HE STILL MIGHT NOT BE ABLE TO DO CARE OF SELF AND HOME. ASKED IF HE WAS STILL OK WITH GOING TO REHAB CENTER IF NEEDED, HE STATES HE IS. DISCUSSED WE WILL SEE HOW HE DOES WITH THERAPY TODAY AND THEN WE MAY HAVE A BETTER IDEA OF WHAT THEY RECOMMEND. PATIENT IS VERY PLEASANT AND COOPERATIVE.
--- NOTE | 2020-12-21 12:10 | NUR ---
REASSESS PAIN. PT REPORTS 02/27 AND MANAGABLE. BLOOD GLUCOSE CHECK AND REPORT AT 202. 3 UNITS INSULIN GIVEN IN LEFT ARM. PAT EATING LUNCH IN CHAIR. NO OTHER NEEDS OR CONCERNS AT THIS TIME. CALL LIGHT WITHIN REACH.
--- NOTE | 2020-12-21 12:13 | NUR ---
INSULIN ADMISNTERED WITH STUDENT NURSE. DOSE VERIFIED WITH SHOLA MEYERS.
--- NOTE | 2020-12-21 14:00 | NUR ---
PT ASLEEP IN HIS CHAIR. ASSESSMENT DONE. ASSISTED PT TO COMMODE THEN TO BED. INCISION LOOKS GOOD CHAD INTACT. PT REPORTS PAIN WITHIN LIMITS. NO CONCERNS. CALL LIGHT WITHIN REACH.
--- NOTE | 2020-12-21 14:52 | NUR ---
PATIENT WAS NAPPING IN HIS CHAIR, THIS DIRECTOR PERSONAL ASKED IF HE WAS COMFORTABLE, PATIENT'S INTAKE AND OUTPUT WAS DONE WELL VITAL SIGNS, PATIENT NEEDED NO OTHER ASSISTANCE AT THIS TIME
--- NOTE | 2020-12-21 16:14 | NUR ---
PT WITH PHYSICAL THERAPY. REPORTED PAIN A 6/10 IN THE LEFT LEG 4/10 ON THE RIGHT LEG. GAVE PT SCHEDULE PAIN MEDICATION. NO CONCERNS. CALL LIGHT WITHIN REACH.
--- NOTE | 2020-12-21 16:15 | NUR ---
PATIENT UP IN CHAIR, PATIENT NEEDED A REFILL ON WATER, TAX COMPLIANCE AGENT IN DOING HER ASSESSMENT THERE IS NOTING ELSE TO REPORT AT THIS TIME
--- NOTE | 2020-12-21 17:25 | NUR ---
INSULIN VERIFIED BY THIS NURSE AND YANELI MEYERS. GIVEN BY STUDENT NURSE.
--- NOTE | 2020-12-21 17:50 | NUR ---
PT EATING DINNER. 1 UNIT INSULIN ADMINISTERED PER PROTOCOL. REPORTS PAIN IN BLE. 5MG OXY ADMINISTERED FOR PAIN. WILL REASSESS. NO OTHER CONCERNS. CALL LIGHT WITH IN REACH.
--- NOTE | 2020-12-21 18:23 | NUR ---
NURSE STUDENT IN TO HELP ASSISTANT PRODUCT MANAGER REPOSITIONED PT. REASSESSED PT PAIN. REPORTED 2/10 AND MANAGEABLE. NO OTHER CONCERNS. CALL LIGHT WITHIN REACH.
--- NOTE | 2020-12-21 19:39 | NUR ---
REPORT RECEIVED FROM DAY SHIFT RN. PT LYING IN BED ALERT AND ORIENTED. DENIES PAIN AT THIS TIME. DENIES NEEDS. WHITE BOARD UPDATED. CALL LIGHT IN REACH.
--- NOTE | 2020-12-21 21:30 | NUR ---
EVENING ASSESSMENT COMPLETE. SCHEDULED MEDS ADMINISTERED PER EMAR. PT DENIES PAIN OR NAUSEA. FRESH WATER PROVIDED. URINE EMPTIED FROM URINAL. DENIES NEEDS AT THIS TIME. CALL LIGHT IN REACH.
--- NOTE | 2020-12-22 00:20 | NUR ---
PT RESTING IN BED WITH EYES CLOSED, NAD. 300 ML YELLOW URINE EMPTIED FROM URINAL. FRESH WATER PROVIDED.
--- NOTE | 2020-12-22 03:05 | NUR ---
PT RESTING IN BED, NAD.
--- NOTE | 2020-12-22 06:00 | NUR ---
VS AND I&O COMPLETE. PT REPORTS PAIN IS TOLERABLE, DENIES PRN FOR PAIN. ASSISTED TO REPOSITION IN BED. FRESH WATER PROVIDED. PT DENIES FURTHER NEEDS. CALL LIGHT IN REACH.
--- NOTE | 2020-12-22 07:05 | NUR ---
bedside report given by arthur pressley. pt resting, call light in reach - denies needs.
--- NOTE | 2020-12-22 09:11 | NUR ---
RECEIVED CALL FROM [facility] AT [facility]. THEY WILL ACCEPT PATIENT FOR REHAB STAY. THEY CAN PROVIDE TRANSPORTATION. ASK FOR CALL BACK WHEN PATIENT IS READY FOR DISCHARGE. DR SERRANO NOTIFIED, ORDERS FOR SNF GIVEN FOR HER TO FILL OUT. STAFF UPDATED.
[2020-12-22] MEDS ORDERED: HYDROCODON-ACE1 EA10 PO (09:26)
[2020-12-22] MEDS ORDERED: GABAPENTIN300 MG PO (09:27)
--- NOTE | 2020-12-22 09:50 | NUR ---
pt up with swathi PT. pt walked in gonzales with walker and tollerated pretty well. back in room to . with call light in reach.
--- NOTE | 2020-12-22 09:51 | NUR ---
SNF ORDERS/PASSR FAXED TO [facility]. FAX CONFIRMATION RECEIVED 948AM. CHART PACK CLOSED AND LEFT AT NURSES STATION. COPY OF ORDERS TO CHART.
--- NOTE | 2020-12-22 09:55 | NUR ---
BOTH NARES SWABBED FOR COVID-19 WITHOUT COMPLICATION. SAMPLE TAKEN TO [facility] FOR RAPID TESTING.
--- NOTE | 2020-12-22 10:01 | NUR ---
SPOKE WITH PATIENT IN ROOM. UPDATED HIM REGARDING BEING ACCEPTED AT REHAB [facility]. PATIENT STATES HE FEELS RELIEVED HE DOES NOT FEEL HE CAN DO HIS CARE YET AT HOME ALONE. QUESTIONS ANSWERED. RT CAME IN TO DO NEB.
--- NOTE | 2020-12-22 10:36 | NUR ---
PATIENT HAVING A MEATING WITH [employer] AT THIS TIME. MIRA GALEAS SAID TO NOT WORRY ABOUT VITALS AND I&O'S UNTIL AFTER [facility] IS GONE.
--- NOTE | 2020-12-22 11:59 | NUR ---
Rounded with this patient. Patient reports that the staff members are "doing a good job." He feels like staff members are doing everything they can to assit with his pain conrol, and that they are explaining things to him. He admits that he is never completely out of pain, but states that he knows with this surgery that he will have some pain until further healed. Pt denies complaints or concerns at this time.
--- NOTE | 2020-12-22 13:21 | NUR ---
PT ALERT, ORIENTED, DRESSED AND GETTING READY FOR DC. PT STATED HE FEELS WELL CARED FOR, INFORMED AND BETTER THAN WHEN HE CAME. HAD GOOD VISIT WITH PT, LEFT G.POST AND BLESSING CM MIRA ATKINS CAME TO ROUND WITH PT.
== END 2020-12-22 13:25 | DRG 552 ==
LOC: ED 05:46 → MS 05:47
PROVIDERS: ADMIT Student in an Organized Health Care Education/Training Program; ATTEND Student in an Organized Health Care Education/Training Program
DX: M54.16 Radiculopathy, lumbar region (principal); Z20.822 Contact with and (suspected) exposure to COVID-19; E11.22 Type 2 diabetes mellitus with diabetic chronic kidney disease; I12.9 Hypertensive chronic kidney disease with stage 1 through stage 4 chronic kidney disease, or unspecified chronic kidney disease; N18.30 Chronic kidney disease, stage 3 unspecified; M10.9 Gout, unspecified; K59.00 Constipation, unspecified; Z86.73 Personal history of transient ischemic attack (TIA), and cerebral infarction without residual deficits; Z88.0 Allergy status to penicillin; Z88.8 Allergy status to other drugs, medicaments and biological substances; Z79.899 Other long term (current) drug therapy; Z79.84 Long term (current) use of oral hypoglycemic drugs; Z79.82 Long term (current) use of aspirin; Z79.891 Long term (current) use of opiate analgesic
CPT/HCPCS: 36415; 80048; 85025; 96374; 96375; 97110; 97116; 97162; 97166; 97168; 97530; 97535; 99284-25; C9803; J1170; J1650; J1815; J2270; J2405; U0003

== ENCOUNTER 2021-03-23 07:16 | Day surgery (SDC) | payer OTHER ==
[~2021-03-23] VITALS: Ht 190.5 cm; Wt 125.5 kg
--- NOTE | ~2021-03-23 | OR ---
[facility] [address] [place], [place] [address] Draft DATE OF OPERATION: 03/23/2021 SURGEON: Ricardo Morfin MD LOCATION: [facility] Outpatient Surgery. PREOPERATIVE DIAGNOSIS: Left parotid mass. POSTOPERATIVE DIAGNOSIS: Left parotid mass. PROCEDURE: Excision of the left parotid mass. NURSE ORTHOPAEDIC: Matheus Montes MD ANESTHESIA: General orotracheal; SCRUB TECH, Frandy. HISTORY: Mr. Tanner is a 76-year-old man with a left parotid mass. This has been present for several months. He is being taken to the operating for the above-mentioned procedures. OPERATIVE PROCEDURE AND FINDINGS: After informed consent, the patient was taken to the operating room, placed in the supine position where general orotracheal anesthesia was induced. The patient and procedure were verified. The patient was repositioned. Head turned to the right. Left face was sterilely prepped and draped. The mass in question was very superficial just anterior to the angle of the mandible inferior portion of the parotid. The incision was made 1 cm or so behind the mass in a superior inferior direction. Incision carried through skin, subcutaneous tissue, down through parotid superficial parotid fascia. The mass was identified just beneath the fascia in the substance of the parotid gland. The mass was very whitish, pearly, about 2 cm friable tissue and capsulated thinly mass was removed with sharp and blunt dissection taking care to avoid the surrounding tissue. The mass was then completely removed and sent to pathology in saline for lymphoma handling. I did speak to the pathologist on the phone. The bleeding was minimal, stopped with needle point cautery. The wound was copiously lavaged. The incision was PATIENT NAME: SERGEI TANNER OPERATIVE REPORT DATE OF : 41 REPORT #: [id number] PHYSICIAN: RICARDO MORFIN MD PCP: GERMAINE HERMOSILLO MD REPORT IS CONFIDENTIAL AND NOT TO BE RELEASED WITHOUT AUTHORIZATION [facility] [address] [place], [place] [address] Draft then closed with 4-0 interrupted Vicryl deep subcu and iggy in the skin. Skin was cleansed. Neosporin ointment applied. The patient was then awakened, extubated, transported to the recovery room in good condition. COMPLICATIONS: No complications. BLOOD LOSS: Minimal. SPECIMEN: To pathology. DRAINS: No drains. Ricardo Morfin MD GC/MODL /[id number] Copies: ~ PATIENT NAME: SERGEI TANNER OPERATIVE REPORT DATE OF : 41 REPORT #: [id number] PHYSICIAN: RICARDO MORFIN MD PCP: GERMAINE HERMOSILLO MD REPORT IS CONFIDENTIAL AND NOT TO BE RELEASED WITHOUT AUTHORIZATION
[~2021-03-23 07:16] MED LIST changes: +FUROSEMIDE80 MG PO; +GABAPENTIN300 MG PO; +HYDROCODON-ACE1 EA10 PO; +LACTULOSE10 GM/151 PO; +OXYCODONE HCL5 MG PO
[2021-03-23] MEDS ORDERED: LOSARTAN POTASS25 MG PO (07:47)
[2021-03-23] MEDS ORDERED: VITAMIN B122500 MCG PO (07:49)
--- NOTE | 2021-03-23 09:37 | NUR ---
03/23/21 0937 Maria D Martinez 0926: PT ARRIVES TO PACU VIA STRETCHER FOR RECOVERY. RESPONDS TO VERBAL STIMULI. VSS, O2 SAT 100% VIA FACEMASK, TITRATED DOWN TO 2L VIA NC. REMAINS STABLE >95%. RESP EVEN AND UNLABORED. CBG 114. INCISION OPEN TO AIR
--- NOTE | 2021-03-23 10:10 | NUR ---
1000: PT ARRIVES TO DS RM 5 FROM PACU AWAKE. PT STATES MINOR PAIN IN INCISION SITE AND RATES 1/10. PT DENIES NAUSEA, TOLERATES SIPS OF WATER. PT EDUCATED ABOUT DC, ENC TO USE CALL LIGHT WITH ANY NEEDS. LIGHTS DIMMED, CALL LIGHT WITHIN REACH.
--- NOTE | 2021-03-23 10:53 | NUR ---
DR. MORFIN IN CONVERSING WITH PT ABOUT PROCEDURE. PT DENIES PAIN IN LEFT PAROTID/CHEEK AREA, STATES THROAT HURTS THE MOST. PT ENCOURAGED TO DRINK WATER AND REASSURED THE PAIN WILL GRADUALLY DISSIPATE. PT DENIES ANYTHING TO EAT AT THIS TIME. PT DENIES URGE TO VOID. PT PROVIDED CELL PHONE AND GLASSES, ENC TO USE CALL LIGHT WITH ANY NEEDS.
--- NOTE | 2021-03-23 12:14 | NUR ---
1210 PT UP TO BATHROOM WITH MINIMAL ASSIT HE WAS ABLE TO VOID, CLEAR YELLOW URINE. DISCHARGE INSTRUCTIONS GIVEN TO PT HE VOICED UNDERSTANDING
--- NOTE | 2021-03-26 13:20 | PATH ---
[facility] [address] [facility] [place], [place] [address] Signed SPECIMEN(S): A LEFT PAROTID MASS SPECIMEN SOURCE: A. LEFT PAROTID MASS CLINICAL HISTORY: Left parotid mass FINAL PATHOLOGIC DIAGNOSIS: Left parotid mass, excision: - Fragments of pleomorphic adenoma, see comment. COMMENT: The specimen was received fragmented, therefore margin status and size cannot be determined. Clinical correlation to ensure complete excision is recommended. As part of [employer] Quality Improvement Program, this case was reviewed by another member of our pathology staff. NAL:NRT:cml:C2NR MICROSCOPIC EXAMINATION: Histologic sections of all submitted blocks are examined by light microscopy. These findings, together with the gross examination, support the pathologic diagnosis. GROSS DESCRIPTION: The specimen, labeled "SA," and designated on the requisition "left parotid mass fresh, fix per pathologist discretion," is received fresh for lymphoma protocol and consists of "multiple fragments of chaudhry-pink soft tissue, 2.5 x 1 x 2.3 cm. One of the largest fragments resembles a previously ruptured cystic structure containing papillary chaudhry excrescences. Portions of soft tissue are submitted in RPMI for flow and two touch preps are made and the rest for permanence. The specimen is submitted entirely in cassettes A1-A4. AC (under the direct supervision of a pathologist) The Gross Description was prepared using a voice recognition system. The report was reviewed for accuracy; however, sound-alike word errors, addition and/or deletions may occur. If there is any question about this report, please contact Client Services. PERFORMING LABORATORY: The technical component was performed by [employer], Austyn Mccarthy, PATIENT NAME: SERGEI ESPANA PATHOLOGY DATE OF : 41 REPORT #: [id number] PHYSICIAN: ROSALIA REAL PCP: GERMAINE HERMOSILLO MD REPORT IS CONFIDENTIAL AND NOT TO BE RELEASED WITHOUT AUTHORIZATION [facility] [address] [place], [place] [address] [place] [address] ([employer]er: Sarah Gomez MD; CLIA# [id number]). Professional interpretation was performed by [facility], [address] [address] (CLIA# [id number]). Diagnostician: Callie Santos MD Pathologist Electronically Signed 03/26/2021 Copies: ~ PATIENT NAME: SERGEI ESPANA PATHOLOGY DATE OF : 41 REPORT #: [id number] PHYSICIAN: ROSALIA REAL PCP: GERMAINE HERMOSILLO MD REPORT IS CONFIDENTIAL AND NOT TO BE RELEASED WITHOUT AUTHORIZATION
== END 2021-03-23 12:20 | disposition home or self-care (01) ==
LOC: DS 07:16 → OPS 07:16 → EDSTATUS 08:45 → OPS 08:45
PROVIDERS: ATTEND Otolaryngology
PROC: 0CB90ZZ Excision of Left Parotid Gland, Open Approach (ICD-10-PCS; principal; 2021-03-23 08:45)
DX: D11.0 Benign neoplasm of parotid gland (principal); I13.0 Hypertensive heart and chronic kidney disease with heart failure and stage 1 through stage 4 chronic kidney disease, or unspecified chronic kidney disease; N18.30 Chronic kidney disease, stage 3 unspecified; E11.22 Type 2 diabetes mellitus with diabetic chronic kidney disease; I50.9 Heart failure, unspecified; I25.10 Atherosclerotic heart disease of native coronary artery without angina pectoris; M10.9 Gout, unspecified; E78.00 Pure hypercholesterolemia, unspecified; J44.9 Chronic obstructive pulmonary disease, unspecified; E66.01 Morbid (severe) obesity due to excess calories; Z79.82 Long term (current) use of aspirin; Z79.84 Long term (current) use of oral hypoglycemic drugs; Z88.0 Allergy status to penicillin; Z88.8 Allergy status to other drugs, medicaments and biological substances; Z68.35 Body mass index [BMI] 35.0-35.9, adult
CPT/HCPCS: 00320; J0330; J0690; J2001; J2405; J2704; J3010; J7121

== ENCOUNTER 2021-09-15 07:42 | Emergency (ER) | payer OTHER ==
[~2021-09-15] VITALS: Ht 190.5 cm; Wt 129.8 kg
--- OUTSIDE RECORDS SUMMARY | 2021-09-15 07:46 | XMS ---
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 Care History Medical/Surgical 12/15/2020 [facility] Patient was seen by PCP, Dr. Hermosillo on 12/14/2020 for wellness exam when patient had total bladder incontinence when leaving.\T\nbsp; PCP advised patient to go to ED for MRI due to concern of neuro spine issue. Patient was sent and admitted to [facility] in [place], [place]. 04/06/2020 [facility] Patient has follow up appointment today with Dr. Hermosillo at 3:00 pm 03/25/2019 [facility] - Patient is currently established with [facility]. If patient is seen in the ED during business hours. Please contact CHWs at [facility]. Care Recommendation: If this patient has had [...] care. E.D. VISIT COUNT (12 MO.) [address] Carmina Bang 3 [facility] TOTAL 4 NOTE: Visits indicate total known visits. ED/UCC VISIT TRACKING (12 MO.) 09/15/2021 07:43 [facility] [place] TYPE: Emergency COMPLAINT: - R THUMB WOUND 12/17/2020 05:[address] [facility] TYPE: Emergency COMPLAINT: - FALL 12/14/2020 12:46 [facility] Beti OBRIEN TYPE: Emergency DIAGNOSES: - Cauda equina syndrome - Back Pain - Unspecified urinary incontinence - Loss of bladder control - Spinal stenosis, lumbar region without neurogenic claudication 12/14/2020 09:34 [facility] [place] TYPE: Emergency COMPLAINT: - URINE PROBLEM DIAGNOSES: - Dorsalgia, unspecified - Allergy status to penicillin - Unspecified urinary incontinence - Allergy status to other drugs, medicaments and biological substances - assisted (current) use of aspirin - Other custodial (current) drug therapy - Hypertensive heart disease with heart failure - Heart failure, unspecified - Type 2 diabetes mellitus without complications - Hyperlipidemia, unspecified INPATIENT VISIT TRACKING (12 MO.) 12/18/2020 12:[address] [facility] Jimenez [place] TYPE: Medical Surgical COMPLAINT: - INTRACTABLE BACK PAIN DIAGNOSES: - Gout, unspecified - Chronic kidney disease, stage 3 unspecified - Personal history of transient ischemic attack (TIA), and cerebral infarction without residual deficits - assisted (current) use of opiate analgesic - Radiculopathy, lumbar region - Type 2 diabetes mellitus with diabetic chronic kidney disease - Hypertensive chronic kidney disease with stage 1 through stage 4 chronic kidney disease, or unspecified chronic kidney disease - Other custodial (current) drug therapy - assisted (current) use of aspirin - Constipation, unspecified - assisted (current) use of oral hypoglycemic drugs - Allergy status to other drugs, medicaments and biological substances - Allergy status to penicillin 12/14/2020 12:46 [facility] Carmina OBRIEN TYPE: Surgical Services DIAGNOSES: - Cauda equina syndrome - Spinal stenosis, lumbar region without neurogenic claudication - Unspecified urinary incontinence [email or web address]
[2021-09-15] MEDS ORDERED: DOXYCYCLINE HY100 MG PO (07:59)
[2021-09-15] MEDS ORDERED: VICTOZA 3-0.6 MG/0.1 SUB-Q (08:00)
== END 2021-09-15 09:00 | disposition home or self-care (01) ==
LOC: ED 07:42
DX: L03.011 Cellulitis of right finger (principal)
CPT/HCPCS: 10060; 99283-25

== ENCOUNTER 2023-01-01 01:05 | Emergency (ER) | payer OTHER ==
[~2023-01-01] VITALS: Ht 190.5 cm; Wt 125.3 kg
[~2023-01-01 01:05] MED LIST changes: +DOXYCYCLINE HY100 MG PO
--- OUTSIDE RECORDS SUMMARY | 2023-01-01 01:14 | XMS ---
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 Care History Medical/Surgical 12/15/2020 [facility] Patient was seen by PCP, Dr. Moyer on 12/14/2020 for wellness exam when patient had total bladder incontinence when leaving.\T\nbsp; PCP advised patient to go to ED for MRI due to concern of neuro spine issue. Patient was sent and admitted to [facility]39;[facility] in [place], [place]. 04/06/2020 [facility] Patient has follow up appointment today with Dr. Moyer at 3:00 pm 03/25/2019 [facility] - Patient is currently established with [facility]. If patient is seen in the ED during business hours. Please contact CHWs at [facility]. Care Recommendation: If this patient [...] care. E.D. VISIT COUNT (12 MO.) [address] [facility] [address] [facility] Sol TOTAL 2 NOTE: Visits indicate total known visits. ED/UCC VISIT TRACKING (12 MO.) 01/01/2023 01:07 [facility] [place] TYPE: Emergency COMPLAINT: - WEAK AND UNABLE TO URINATE 12/26/2022 08:47 [facility] [place] TYPE: Emergency COMPLAINT: - ABD PAIN, NAUSEA, FEET SWELLING, URINARY PROBLEM DIAGNOSES: - Hyperlipidemia, unspecified - Gout, unspecified - Allergy status to penicillin - Hypertensive heart disease with heart failure - Allergy status to other drugs, medicaments and biological substances - Heart failure, unspecified - Diarrhea, unspecified - Lower abdominal pain, unspecified - Other half-way (current) drug therapy - intermediate (current) use of aspirin - Type 2 diabetes mellitus without complications INPATIENT VISIT TRACKING (12 MO.) No inpatient visits to display in this time frame [email or web address]
[2023-01-01] MEDS ORDERED: CLOPIDOGREL75 MG PO (01:29)
[2023-01-01] MEDS ORDERED: METRONIDAZOLE500 MG PO (01:29)
[2023-01-01] MEDS ORDERED: LATANOPROST2.5 ML OPTH (01:30)
== END 2023-01-01 02:53 | disposition home or self-care (01) ==
LOC: ED 01:05
DX: A04.72 Enterocolitis due to Clostridium difficile, not specified as recurrent (principal); M10.9 Gout, unspecified; E11.9 Type 2 diabetes mellitus without complications; I11.0 Hypertensive heart disease with heart failure; E78.5 Hyperlipidemia, unspecified; I50.9 Heart failure, unspecified; Z88.0 Allergy status to penicillin; Z88.8 Allergy status to other drugs, medicaments and biological substances; Z79.899 Other long term (current) drug therapy; Z79.82 Long term (current) use of aspirin
CPT/HCPCS: 36415; 80053; 81003; 83690; 85025; 96360; 99284-25; J7040

== ENCOUNTER 2023-02-15 10:42 | Emergency (ER) | payer OTHER ==
[~2023-02-15] VITALS: Ht 190.5 cm; Wt 125.2 kg
[~2023-02-15 10:42] MED LIST changes: +CLOPIDOGREL75 MG PO; +LATANOPROST2.5 ML OPTH; +METRONIDAZOLE500 MG PO
[2023-02-15] MEDS ORDERED: TRAMADOL HCL50 MG PO (13:44)
[2023-02-15] MEDS ORDERED: NEURONTIN100 MG PO (13:44)
== END 2023-02-15 14:09 | disposition home or self-care (01) ==
LOC: ED 10:42
DX: M48.061 Spinal stenosis, lumbar region without neurogenic claudication (principal); R10.9 Unspecified abdominal pain; I13.0 Hypertensive heart and chronic kidney disease with heart failure and stage 1 through stage 4 chronic kidney disease, or unspecified chronic kidney disease; N18.9 Chronic kidney disease, unspecified; E11.22 Type 2 diabetes mellitus with diabetic chronic kidney disease; I50.9 Heart failure, unspecified; E78.5 Hyperlipidemia, unspecified; M10.9 Gout, unspecified; Z88.0 Allergy status to penicillin; Z88.8 Allergy status to other drugs, medicaments and biological substances; Z79.899 Other long term (current) drug therapy; Z79.82 Long term (current) use of aspirin
CPT/HCPCS: 36415; 74176; 80053; 81003; 83690; 85025; 87493; 99284-25; J7040

== ENCOUNTER 2023-02-26 12:49 | Emergency (ER) | payer OTHER ==
[~2023-02-26] VITALS: Ht 190.5 cm; Wt 125.2 kg
[~2023-02-26 12:49] MED LIST changes: +NEURONTIN100 MG PO; +TRAMADOL HCL50 MG PO
--- OUTSIDE RECORDS SUMMARY | 2023-02-26 12:52 | XMS ---
PreManage Notification: SERGEI ESPANA Security Form Tamper Events No recent Security Events currently on file CRITERIA MET - [facility] - [facility] - 2 Visits in 30 Days CARE PROVIDERS GERMAINE MOYER Internal Medicine 03/25/2019-Current PHONE: Unknown Jose Alberto has no Care Guidelines for this patient. Care History Medical/Surgical 12/15/2020 [facility] Patient was seen by PCP, Dr. Moyer on 12/14/2020 for wellness exam when patient had total bladder incontinence when leaving.\T\nbsp; PCP advised patient to go to ED for MRI due to concern of neuro spine issue. Patient was sent and admitted to [facility] in [place], [place]. 04/06/2020 [facility] Patient has follow up appointment today with Dr. Moyer at 3:00 pm 03/25/2019 [facility] - Patient is currently established with [facility]. If patient is seen in the ED during business hours. Please contact CHWs at [facility]. Care Recommendation: If this patient has [...] providing care. E.D. VISIT COUNT (12 MO.) [address] [facility] TOTAL 4 NOTE: Visits indicate total known visits. ED/UCC VISIT TRACKING (12 MO.) 02/26/2023 12:49 [facility] [place] TYPE: Emergency COMPLAINT: - HIGH BLOOD SUGAR 02/15/2023 10:43 [facility] [place] TYPE: Emergency COMPLAINT: - ABD PAIN, DIARRHEA, BACK PAIN DIAGNOSES: - Gout, unspecified - Other intermediate manager (current) drug therapy - Allergy status to other drugs, medicaments and biological substances - Heart failure, unspecified - rat exterminator (current) use of aspirin - Unspecified abdominal pain - Type 2 diabetes mellitus with diabetic chronic kidney disease - Hypertensive heart and chronic kidney disease with heart failure and stage 1 through stage 4 chronic kidney disease, or unspecified chronic kidney disease - Hyperlipidemia, unspecified - Spinal stenosis, lumbar region without neurogenic claudication - Chronic kidney disease, unspecified - Allergy status to penicillin 01/01/2023 01:07 [facility] [place] TYPE: Emergency COMPLAINT: - DIARRHEA, WEAK AND UNABLE TO URINATE DIAGNOSES: - nursing home (current) use of aspirin - Allergy status to other drugs, medicaments and biological substances - Other snf (current) drug therapy - Hyperlipidemia, unspecified - Type 2 diabetes mellitus without complications - Enterocolitis due to Clostridium difficile, not specified as recurrent - Weakness - Gout, unspecified - Heart failure, unspecified - Hypertensive heart disease with heart failure - Allergy status to penicillin 12/26/2022 08:47 [facility] [place] TYPE: Emergency COMPLAINT: - ABD PAIN, NAUSEA, FEET SWELLING, URINARY PROBLEM DIAGNOSES: - Hypertensive heart disease with heart failure - Allergy status to other drugs, medicaments and biological substances - Heart failure, unspecified - Diarrhea, unspecified - Lower abdominal pain, unspecified - Other intermediate manager (current) drug therapy - rat exterminator (current) use of aspirin - Type 2 diabetes mellitus without complications - Hyperlipidemia, unspecified - Gout, unspecified - Allergy status to penicillin INPATIENT VISIT TRACKING (12 MO.) No inpatient visits to display in this time frame [email or web address]
[2023-02-26] MEDS ORDERED: VANCOMYCIN HCL125 MG PO (13:47)
== END 2023-02-26 15:02 | disposition home or self-care (01) ==
LOC: ED 12:49
DX: E11.65 Type 2 diabetes mellitus with hyperglycemia (principal); I11.0 Hypertensive heart disease with heart failure; I50.9 Heart failure, unspecified; E87.5 Hyperkalemia; Z88.0 Allergy status to penicillin; Z88.1 Allergy status to other antibiotic agents; Z88.8 Allergy status to other drugs, medicaments and biological substances; Z79.899 Other long term (current) drug therapy; Z79.82 Long term (current) use of aspirin
CPT/HCPCS: 36415; 80053; 81003; 82010; 82803; 83735; 85025; 99284; J7121

== ENCOUNTER 2023-04-15 09:27 | Emergency (ER) | payer MEDICARE ==
[~2023-04-15] VITALS: Ht 190.5 cm; Wt 124.7 kg
[~2023-04-15 09:27] MED LIST changes: +DIFICID200 MG PO; +GABAPENTIN100 MG PO; +MECLIZINE HCL25 MG PO; +SERTRALINE HCL25 MG PO; +VANCOMYCIN HCL125 MG PO
--- OUTSIDE RECORDS SUMMARY | 2023-04-15 09:31 | XMS ---
PreManage Notification: SERGEI ESPANA Security Wrapper Sorter Events No recent Security Events currently on file CRITERIA MET - 6 ED Visits in 6 Months CARE PROVIDERS GERMAINE MOYER Internal Medicine 03/25/2019-Current PHONE: Unknown Jose Alberto has no Care Guidelines for this patient. Care History Medical/Surgical 12/15/2020 [facility] Patient was seen by PCP, Dr. Moyer on 12/14/2020 for wellness exam when patient had total bladder incontinence when leaving.\T\nbsp; PCP advised patient to go to ED for MRI due to concern of neuro spine issue. Patient was sent and admitted to [facility] in [place], [place]. 04/06/2020 [facility] Patient has follow up appointment today with Dr. Moyer at 3:00 pm 03/25/2019 [facility] - Patient is currently established with [facility]. If patient is seen in the ED during business hours. Please contact CHWs at [facility]. Care Recommendation: If this patient has [...] providing care. E.D. VISIT COUNT (12 MO.) [address] [facility] TOTAL 7 NOTE: Visits indicate total known visits. ED/UCC VISIT TRACKING (12 MO.) 04/15/2023 09:[address] [facility] [place] TYPE: Emergency COMPLAINT: - BACK PAIN 03/14/2023 18:22 [facility] [place] TYPE: Emergency COMPLAINT: - LOW BLOOD PRESSURE DIAGNOSES: - Allergy status to other antibiotic agents - Allergy status to other drugs, medicaments and biological substances - Allergy status to penicillin - Dizziness and giddiness - Heart failure, unspecified - Hypertensive heart disease with heart failure - shelter (current) use of aspirin - Other intermodal truck driver (current) drug therapy - Type 2 diabetes mellitus without complications 03/05/2023 16:46 [facility] [place] TYPE: Emergency COMPLAINT: - CONFUSSION DIAGNOSES: - Allergy status to other antibiotic agents - Allergy status to other drugs, medicaments and biological substances - Allergy status to penicillin - Enterocolitis due to Clostridium difficile, not specified as recurrent - Heart failure, unspecified - Hyperlipidemia, unspecified - Hypertensive heart disease with heart failure - laborer marine terminal (current) use of aspirin - Other detention (current) drug therapy - Type 2 diabetes mellitus without complications - Weakness 02/26/2023 12:49 [facility] [place] TYPE: Emergency COMPLAINT: - HIGH BLOOD SUGAR DIAGNOSES: - Allergy status to other antibiotic agents - Allergy status to other drugs, medicaments and biological substances - Allergy status to penicillin - Heart failure, unspecified - Hyperkalemia - Hypertensive heart disease with heart failure - laborer marine terminal (current) use of aspirin - Other detention (current) drug therapy - Type 2 diabetes mellitus with hyperglycemia 02/15/2023 10:43 [facility] [place] TYPE: Emergency COMPLAINT: - ABD PAIN, DIARRHEA, BACK PAIN DIAGNOSES: - Allergy status to other drugs, medicaments and biological substances - Allergy status to penicillin - Chronic kidney disease, unspecified - Gout, unspecified - Heart failure, unspecified - Hyperlipidemia, unspecified - Hypertensive heart and chronic kidney disease with heart failure and stage 1 through stage 4 chronic kidney disease, or unspecified chronic kidney disease - laborer marine terminal (current) use of aspirin - Other intermodal truck driver (current) drug therapy - Spinal stenosis, lumbar region without neurogenic claudication - Type 2 diabetes mellitus with diabetic chronic kidney disease - Unspecified abdominal pain 01/01/2023 01:07 [facility] [place] TYPE: Emergency COMPLAINT: - DIARRHEA, WEAK AND UNABLE TO URINATE DIAGNOSES: - Allergy status to other drugs, medicaments and biological substances - Allergy status to penicillin - Enterocolitis due to Clostridium difficile, not specified as recurrent - Gout, unspecified - Heart failure, unspecified - Hyperlipidemia, unspecified - Hypertensive heart disease with heart failure - shelter (current) use of aspirin - Other detention (current) drug therapy - Type 2 diabetes mellitus without complications - Weakness 12/26/2022 08:47 [facility] [place] TYPE: Emergency COMPLAINT: - ABD PAIN, NAUSEA, FEET SWELLING, URINARY PROBLEM DIAGNOSES: - Allergy status to other drugs, medicaments and biological substances - Allergy status to penicillin - Diarrhea, unspecified - Gout, unspecified - Heart failure, unspecified - Hyperlipidemia, unspecified - Hypertensive heart disease with heart failure - shelter (current) use of aspirin - Lower abdominal pain, unspecified - Other detention (current) drug therapy - Type 2 diabetes mellitus without complications INPATIENT VISIT TRACKING (12 MO.) No inpatient visits to display in this time frame [email or web address]
[2023-04-15] MEDS ORDERED: HYDROCODON-ACE1 EA10 PO (13:02)
[2023-04-15] MEDS ORDERED: MEDROL4 M1 PO (13:02)
[2023-04-15 13:30] VITALS: BP 160/73
== END 2023-04-15 13:32 | disposition home or self-care (01) ==
LOC: ED 09:27
DX: M76.9 Unspecified enthesopathy, lower limb, excluding foot (principal); I11.0 Hypertensive heart disease with heart failure; I50.9 Heart failure, unspecified; E11.9 Type 2 diabetes mellitus without complications; Z88.0 Allergy status to penicillin; Z88.8 Allergy status to other drugs, medicaments and biological substances; Z88.1 Allergy status to other antibiotic agents; Z79.899 Other long term (current) drug therapy; Z79.82 Long term (current) use of aspirin
CPT/HCPCS: 36415; 72170; 73502; 73560; 80053; 81003; 85025; 99284-25

== ENCOUNTER 2024-08-27 13:02 | Emergency (ER) | payer MEDICARE, OTHER ==
[~2024-08-27] VITALS: Ht 190.5 cm; Wt 120.0 kg
[~2024-08-27 13:02] MED LIST changes: +MEDROL4 M1 PO
[2024-08-27 14:45] LABS: BASOPHILS 0.5 % (0-2); EOSINOPHILS 2.2 % (0-6); HEMATOCRIT 41.8 % (35.0-50.0); HEMOGLOBIN 14.3 g/dL (12.0-18.0); LYMPHOCYTES 18.5 % (24-44); MCH 31.4 (27-36); MCHC 34.3 g/dl (30-36); MCV 91.6 fl (81-99); MONOCYTES 10.2 % (0-12); NEUTROPHILS 68.6 % (39-80); PLATELET COUNT 129 K/uL (140-440); RBC 4.56 M/ul (4.3-5.7); RDW 14.9 (10.5-15.0)
[2024-08-27 15:01] LABS: ALBUMIN 4.1 g/dL (3.4-5.0); ALBUMIN/GLOBULIN RATIO 1.41 (1.1-2.4); ANION GAP 13.5 (7-21); BILIRUBIN, TOTAL 1.2 ng/dL (0.2-1.0); BUN/CREATININE RATIO 19.9 (6.0-28.6); CREATININE, SERUM 2.06 mg/dL (0.70-1.30); MAGNESIUM 2.5 mg/dL (1.8-2.4); POTASSIUM 3.5 mmol/L (3.5-5.1)
[2024-08-27 16:25] VITALS: BP 113/84
== END 2024-08-27 16:27 | disposition home or self-care (01) ==
LOC: ED 13:02
PROVIDERS: Emergency Medicine
DX: I13.0 Hypertensive heart and chronic kidney disease with heart failure and stage 1 through stage 4 chronic kidney disease, or unspecified chronic kidney disease (principal); E11.22 Type 2 diabetes mellitus with diabetic chronic kidney disease; N18.9 Chronic kidney disease, unspecified; I50.9 Heart failure, unspecified; Z88.0 Allergy status to penicillin; Z88.1 Allergy status to other antibiotic agents; Z88.8 Allergy status to other drugs, medicaments and biological substances; Z79.899 Other long term (current) drug therapy; Z79.82 Long term (current) use of aspirin
CPT/HCPCS: 36415; 51798; 80053; 83735; 83880; 85025; 93971; 99284-25

== ENCOUNTER 2024-10-16 00:29 | Emergency (ER) | payer MEDICARE, OTHER ==
[~2024-10-16] VITALS: Ht 190.5 cm; Wt 123.1 kg
[~2024-10-16 00:29] MED LIST changes: -LATANOPROST2.5 ML OPTH; +LATANOPROST2.5 ML OS
[2024-10-16] MEDS ORDERED: PARICALCITOL2 MCG PO (00:45)
[2024-10-16] MEDS ORDERED: OZEMPIC0.25 MG/02 SUB-Q (00:46)
[2024-10-16] MEDS ORDERED: TAMSULOSIN HCL0.4 MG PO (00:47)
[2024-10-16] MEDS ORDERED: DULOXETINE HCL20 MG PO (00:47)
[2024-10-16] MEDS ORDERED: IRBESARTAN75 MG PO (00:47)
[2024-10-16] MEDS ORDERED: FARXIGA5 MG PO (00:48)
[2024-10-16 00:55] LABS: BASOPHILS 0.5 % (0-2); EOSINOPHILS 1.3 % (0-6); HEMATOCRIT 38.9 % (35.0-50.0); HEMOGLOBIN 13.2 g/dL (12.0-18.0); LYMPHOCYTES 8.3 % (24-44); MCH 31.6 (27-36); MCHC 33.9 g/dl (30-36); MCV 93.4 fl (81-99); NEUTROPHILS 85.9 % (39-80); PLATELET COUNT 153 K/uL (140-440); RBC 4.17 M/ul (4.3-5.7); RDW 15.9 (10.5-15.0)
[2024-10-16] MEDS ORDERED: KETOROLAC TROMETHAMINE 30 MG/ML VIAL IV ONE (01:00)
[2024-10-16] MEDS ORDERED: MORPHINE SULFATE 4 MG/ML VIAL IV ONE (01:00)
[2024-10-16 01:04] LABS: ANION GAP 12.3 (7-21); BUN/CREATININE RATIO 18.77 (6.0-28.6); CALCIUM 10.1 mg/dL (8.5-10.1); CREATININE, SERUM 2.29 mg/dL (0.70-1.30); POTASSIUM 4.3 mmol/L (3.5-5.1)
[2024-10-16] MEDS ORDERED: HYDROCODON-ACE1 EA10 PO ×2 (01:27→17:40)
[2024-10-16] MEDS ORDERED: DOXYCYCLINE HY100 MG PO (01:27)
[2024-10-16] MEDS ORDERED: HYDROCODONE BIT/ACETAMINOPHEN 5/325 MG 1 TAB HOME.PACK PO ONE (01:30)
[2024-10-16] MEDS ORDERED: DOXYCYCLINE HYCLATE 100 MG CAP PO ONE (01:30)
[2024-10-16 02:05] VITALS: BP 167/81
[2024-10-16] MEDS ORDERED: VITAMIN B-121000 MCG (17:10)
== END 2024-10-16 02:12 | disposition home or self-care (01) ==
LOC: ED 00:29
PROVIDERS: Family Medicine
DX: L03.116 Cellulitis of left lower limb (principal); E11.621 Type 2 diabetes mellitus with foot ulcer; L97.529 Non-pressure chronic ulcer of other part of left foot with unspecified severity; I11.0 Hypertensive heart disease with heart failure; I50.9 Heart failure, unspecified; E78.5 Hyperlipidemia, unspecified; M10.9 Gout, unspecified; Z88.0 Allergy status to penicillin; Z88.1 Allergy status to other antibiotic agents; Z88.8 Allergy status to other drugs, medicaments and biological substances; Z79.82 Long term (current) use of aspirin; Z79.899 Other long term (current) drug therapy
CPT/HCPCS: 36415; 70450; 71045; 72125; 80048; 80053; 83605; 85025; 87040; 93971; 96365; 96374; 96375; 99284-25; 99285-25; A9270; G0480; J0696; J0878; J1885; J7030

== ENCOUNTER 2024-10-16 10:40 | Inpatient (IN) | payer MEDICARE, OTHER ==
[~2024-10-16] VITALS: Ht 190.5 cm; Wt 120.0 kg
[~2024-10-16 10:40] MED LIST changes: +DULOXETINE HCL20 MG PO; +FARXIGA5 MG PO; +IRBESARTAN75 MG PO; +OZEMPIC0.25 MG/02 SUB-Q; +PARICALCITOL2 MCG PO; +TAMSULOSIN HCL0.4 MG PO
[2024-10-16 10:59] LABS: BASOPHILS 0.2 % (0-2); EOSINOPHILS 0.6 % (0-6); HEMATOCRIT 35.3 % (35.0-50.0); LYMPHOCYTES 4.4 % (24-44); MCH 31.7 (27-36); MCV 93.2 fl (81-99); MONOCYTES 4.4 % (0-12); NEUTROPHILS 90.4 % (39-80); PLATELET COUNT 137 K/uL (140-440); RBC 3.79 M/ul (4.3-5.7); RDW 15.5 (10.5-15.0)
[2024-10-16 11:15] LABS: ALBUMIN 3.6 g/dL (3.4-5.0); ALBUMIN/GLOBULIN RATIO 1.24 (1.1-2.4); ALCOHOL, MEDICAL <3 ng/dL (<3); ALKALINE PHOSPHATASE 95 U/L (46-116); ALT (SGPT) 18 U/L (14-59); ANION GAP 14.9 (7-21); AST (SGOT) 25 U/L (15-37); BILIRUBIN, TOTAL 1.3 ng/dL (0.2-1.0); BUN/CREATININE RATIO 18.21 (6.0-28.6); CALCIUM 9.8 mg/dL (8.5-10.1); CARBON DIOXIDE 27 mmol/L (21-32); CHLORIDE 104 mmol/L (98-107); CREATININE, SERUM 2.69 mg/dL (0.70-1.30); GLOMERULAR FILTRATION RATE,EST 23 mL/min (>60); POTASSIUM 4.9 mmol/L (3.5-5.1); PROTEIN, TOTAL 6.5 g/dL (6.4-8.2); UREA NITROGEN 49 mg/dL (7-18)
[2024-10-16] MEDS ORDERED: SODIUM CHLORIDE 0.9% 1,000 ML IV ONE ×2 (11:15→12:00)
[2024-10-16] MEDS ORDERED: CEFTRIAXONE/SODIUM CHLORIDE 2 GM/100 ML PIGGYBACK IV ONE (11:15)
[2024-10-16 11:32] LABS: LACTIC ACID, BLOOD 3.4 mmol/L (0.4-2.0)
[2024-10-16] MEDS ORDERED: DAPTOmycin 500 MG/10 ML VIAL IV ONE (12:00)
[2024-10-16 12:46] LABS: LACTIC ACID, BLOOD 1.6 mmol/L (0.4-2.0)
[2024-10-16] MEDS ORDERED: ACETAMINOPHEN 325 MG TAB PO PRN (13:00)
[2024-10-16] MEDS ORDERED: DEXTROSE 5% 1,000 ML IV PRN (13:00)
[2024-10-16] MEDS ORDERED: ondansetron HCL 4 MG/2 ML VIAL IV PRN (13:00)
[2024-10-16] MEDS ORDERED: GLUCAGON,HUMAN RECOMBINANT 1 MG/ML VIAL SUB-Q PRN (13:00)
[2024-10-16] MEDS ORDERED: SODIUM CHLORIDE 0.9% 1,000 ML IV SCH (13:00)
[2024-10-16] MEDS ORDERED: DEXTROSE 50% 50 ML SYR IV PRN ×2 (13:00)
[2024-10-16] MEDS ORDERED: IBLOOD GLUCOSE TEST STRIP 1 EA TEST XX PRN (13:00)
[2024-10-16 13:39] VITALS: BP 126/52
[2024-10-16 13:48] LABS: BILIRUBIN, URINE NEGATIVE (negative); BLOOD/HGB, URINE NEGATIVE (Negative); KETONE, URINE NEGATIVE (Negative); LEUK ESTERASE, URINE NEGATIVE (negative); NITRITE, URINE NEGATIVE (negative); PH, URINE 6.5 (5-7)
--- NOTE | 2024-10-16 14:27 | NUR ---
NEW ADMIT TO THE MEDICAL FLOOR. PATIENT IS AWAKE, ALERT AND ORIENTED X3. PATIENT'S LEFT LEG IS SWOLLEN, RED AND WARM TO TOUCH. NOTABLE DRESSING TO BOTTOM OF LEFT FOOT, PT REPORTS DR. AWAN MANAGED WOUND ONCE WEEKLY-LAST DRESSING CHANGE 10/14, DRESSING CDI. TYLENOL 650MG PO ADMIN AT THIS TIME FOR REPORTED 6/10 LLE PAIN. PATIENT ORIENTED TO ROOM AND CALL LIGHT.
--- NOTE | 2024-10-16 16:24 | NUR ---
MIRA Sung reached out to Dr. Garcia's office regarding left foot wound care. Per Dr. Cruz office, last dressing change was 10/14, next due is 10/23.
--- NOTE | 2024-10-16 16:29 | NUR ---
Per lab, third lactic displaying "not received" is not needed.
[2024-10-16] MEDS ORDERED: INSULIN LISPRO 100 UNIT/ML ML SUB-Q SCH (17:00)
[2024-10-16] MEDS ORDERED: IBLOOD GLUCOSE TEST STRIP 1 EA TEST VI SCH (17:00)
[2024-10-16] MEDS ORDERED: VITAMIN B-121000 MCG (17:10)
--- NOTE | 2024-10-16 17:16 | NUR ---
medications reconciled using pharmacy records and patient interview. Patient would like to use his Xalatan eye drops, 1 drop OS at hs. He will have someone bring it in
[2024-10-16] MEDS ORDERED: DOXYCYCLINE HY100 MG PO (17:33)
[2024-10-16] MEDS ORDERED: HYDROCODON-ACE1 EA10 PO (17:40)
--- NOTE | 2024-10-16 17:40 | NUR ---
Dr. Blancas notified regarding Dr. Garcia's reccomendation to remove left foot dressing to assess wound. Pictures obtained and placed in chart-see photos.
[2024-10-16 18:21] VITALS: BP 121/50
--- NOTE | 2024-10-16 19:25 | NUR ---
REPORT RECIEVED FROM DAY SHIFT RN. PATIENT RESTING IN BED WITH EYES CLOSED. RESPIRATIONS EVEN AND UNLABORED. CALL LIGHT IN REACH. BED ALARM ON FOR SAFETY.
[2024-10-16 20:43] VITALS: BP 149/56
[2024-10-16 20:44] VITALS: BP 149/56
--- NOTE | 2024-10-16 20:53 | NUR ---
PATIENT RESTING IN BED. VS, I&Os AND BS OBTAINED AND RECORDED. PATIENT DENIES PAIN. PRN TYLENOL ADMINISTERED FOR ELEVATED TEMP. NEW BAG IV FLUID INFUSING PER ORDER. PATIENT HAS NO FURTHER NEEDS AT THIS TIME. BED ALARM ON FOR SAFETY. CALL LIGHT IN REACH.
[2024-10-16] MEDS ORDERED: SENNOSIDES/DOCUSATE 1 EA TAB PO SCH (21:00)
--- NOTE | 2024-10-16 21:10 | NUR ---
ON WAY TO CT pt NOTED TO HAVE RUNS OF VTACH ON HEART MONITOR. pt COMPLAINS OF CHEST PAIN RADIATING TO ARM AND NECK. MD IN ROOM. ORDERS FOR NITRO AND ADDITIONAL 1MG MORPHINE. MEDICATIONS ADMINISTERED, SEE EMAR. PAIN IMPROVES WITH MEDICATIONS. EKG COMPLETE BY RT. DENIES ADDITIONAL LABS AT THIS TIME. HOLD CHEST CT AT THIS TIME.
--- NOTE | 2024-10-16 22:32 | NUR ---
PATIENT RESTING IN BED WITH EYES CLOSED. RESPIRATIONS EVEN AND UNLABORED. CALL LIGHT IN REACH.
--- NOTE | 2024-10-16 23:08 | NUR ---
CALL LIGHT ANSWERED. PT NEEDED TO USE BATHROOM. LOW ALTITUDE AIR DEFENSE GUNNER ASSISTED PT TO STAND AT BEDSIDE AND USE URINAL. PT VOIDED AND ASSISTED BACK TO BED. OUTPUT MEASURED. PT STATES NO FURTHER NEEDS AT THIS TIME. CALL LIGHT WITHIN REACH AND BED ALARM ON.
[2024-10-17] VITALS (12 sets, daily range): BP systolic 92–144; BP diastolic 37–63
--- NOTE | 2024-10-17 01:40 | NUR ---
VS AND I&Os OBTAINED AND RECORDED. PATIENT UP AT BEDSIDE TO USE URINAL. PATIENT BACK TO BED. NO FURTHER NEEDS AT THIS TIME. COLD WASH CLOTH PLACED ON FOREHEAD. ROOM TEMP TURNED DOWN. NO FURTHER NEEDS AT THIS TIME. BED ALARM ON FOR SAFETY. CALL LIGHT IN REACH.
--- NOTE | 2024-10-17 01:46 | NUR ---
MD NOTIFIED OF PATIENTS TEMP. NO NEW ORDERS. MD STATES TO UPDATE HIM IF TEMP CONTINUES TO RISE.
--- NOTE | 2024-10-17 02:21 | NUR ---
PRN TYLENOL ADMINSITERED FOR PATIENT ELEVATED TEMP. NO FURTHER NEEDS. CALL LIGHT IN REACH. REACH ALARM ON FOR SAFETY.
--- NOTE | 2024-10-17 03:55 | NUR ---
PATIENT RESTING IN BED ON BACK WITH EYES CLOSED. RESPIRATIONS EVEN AND UNLABORED. CALL LIGHT IN REACH.
[2024-10-17 05:44] LABS: BASOPHILS 0.2 % (0-2); EOSINOPHILS 0.6 % (0-6); HEMATOCRIT 30.9 % (35.0-50.0); HEMOGLOBIN 10.7 g/dL (12.0-18.0); LYMPHOCYTES 7.4 % (24-44); MCH 32.5 (27-36); MCHC 34.7 g/dl (30-36); MCV 93.7 fl (81-99); NEUTROPHILS 84.8 % (39-80); PLATELET COUNT 101 K/uL (140-440); RDW 15.8 (10.5-15.0)
--- NOTE | 2024-10-17 05:55 | NUR ---
CHAIN MACHINE OPERATOR OBTIANED VITALS AND I&O. RN NOTIFED OF B/P. PT WATER REFILLED AND PT STATES NO NEEDS AT THIS TIME. CALL LIGHT WITHIN REACH AND BED ALARM ON.
[2024-10-17 06:00] LABS: ALBUMIN 2.8 g/dL (3.4-5.0); ALBUMIN/GLOBULIN RATIO 1.04 (1.1-2.4); ANION GAP 9.6 (7-21); BILIRUBIN, TOTAL 0.7 ng/dL (0.2-1.0); BUN/CREATININE RATIO 18.22 (6.0-28.6); CALCIUM 8.8 mg/dL (8.5-10.1); CREATININE, SERUM 2.14 mg/dL (0.70-1.30); MAGNESIUM 1.9 mg/dL (1.8-2.4); PHOSPHORUS, INORGANIC 2.5 mg/dL (2.5-4.9); POTASSIUM 3.6 mmol/L (3.5-5.1); PROTEIN, TOTAL 5.5 g/dL (6.4-8.2)
--- NOTE | 2024-10-17 06:22 | NUR ---
NEW BAG IV FLUID INFUSING PER ORDER. PATIENT HAS NO FURTHER NEEDS. CALL LIGHT IN REACH.
--- NOTE | 2024-10-17 06:41 | NUR ---
IN ROOM TO RECHECK BP, BP WNL. pt AWOKE EASILY TO VOICE, DENIES NEEDS OR CONCERNS. CALL LIGHT IN REACH AND BED ALARM ON FOR SAFETY.
--- NOTE | 2024-10-17 07:00 | NUR ---
REPORT RECEIVED FROM MIRA MACHADO. PT USING BSC, ASSISTED BY KATE BOYLE. NO OTHER NEEDS AT THIS TIME.
--- NOTE | 2024-10-17 07:03 | NUR ---
CALL LIGHT ANSWERED. PT STATES THE NEED TOUSE BAHTROOM. SURFACE PLATE FINISHER AND RN ASSITED PT TO BSC. PT GIVEN CALL LIGHT AND INSTRUCTED TO CALL WHEN DONE. CALL LIGHT ANSWERED. PT ASSISTED WITH CLEANING AND 2PA BACK TO BED. OUTPUT MEASURED. PT STATES NO FURTHER NEEDS AT THIS TIME. CALL LIGHT WITHIN REACH AND BED ALARM ON.
--- NOTE | 2024-10-17 08:00 | NUR ---
MEDICATIONS ADMINISTERED PER JAN, INITIAL ASSESSMENT COMPLETE. R FOREARM IV FLUSHES WNL, L AC IV FLUSHES WNL AND REINFORCED WITH TAPE. LUNG SOUNDS CLEAR, HEART TONES HEARD WNL, BOWEL TONES ACTIVE, NO TENDERNESS NOTED. PT REPORTS HIS HISTORY OF C.DIFF AND SUBSEQUENT CONSTIPATION SINCE THIS INFECTION. RADIAL PULSES 2+, NO NUMBNESS OR TINGLING REPORTED IN HIS HANDS. PT REPORTS TINGLING IN BILATERAL FEET, CHRONIC. LLE NOTED WITH REDNESS NOT OUTSIDE THE LINES PREVIOUSLY DRAWN, DRYNESS ALSO NOTED TO BLE. DRESSING ON L FOOT IS MOVEABLE, WOUND ON SIDE OF L FOOT VISUALIZED AND DRY. DRESSING RE-ADJUSTED, C/D/I. LEG AND FOOT RE-ADJUSTED WITH PILLOW SO HEEL IS FLOATING. PT REPORTS PAIN IN LLE IS A 6/10, ICE PACK OFFERED AND DECLINED. PEDAL PULSES 1+. PT ALERT AND ORIENTED, RESPONDS APPROPRIATELY, NOTED POSSIBLY ZUNI. PT REPORTS HE USES A CANE AT BASELINE, FWW ACQUIRED AND PLACED IN ROOM AT THIS TIME. PHYSICAL THERAPY ALSO INFORMED BY MIRA GUNN. NO OTHER NEEDS AT THIS TIME, BED IN LOWEST POSITION, FALL MAT IN PLACE X1. CALL LIGHT AND PERSONAL BELONGINGS IN REACH.
--- NOTE | 2024-10-17 08:33 | NUR ---
PATIENT IN BED AT THIS TIME. SUPERVISOR STAVE FINISHING WENT INTO PATIENTS ROOM FOR HOURLY ROUNDS. CALL LIGHT WITHIN REACH, NO FURTHER NEEDS AT THIS TIME.
[2024-10-17] MEDS ORDERED: DAPTOmycin 500 MG/10 ML VIAL IV SCH ×2 (09:00→12:00)
[2024-10-17] MEDS ORDERED: HEParin SOD (PORCINE) 5,000 UNIT/ML SDV SUB-Q SCH (09:00)
[2024-10-17] MEDS ORDERED: POLYETHYLENE GLYCOL 3350 1 PACKET PO SCH (09:00)
[2024-10-17] MEDS ORDERED: FLU VACC TS2024(65UP)/MF59C/PF 1 EACH SYR IM SCH (09:00)
--- NOTE | 2024-10-17 10:11 | NUR ---
PATIENT IN BED AT THIS TIME. SUMMER COUNSELOR CHARTED VITALS AND I&O'S. CALL LIGHT WITHIN REACH, NO FURTHER NEEDS AT THIS TIME.
--- NOTE | 2024-10-17 10:12 | NUR ---
PATIENT IN BED AT THIS TIME. RN CHARTED VITALS AND I&O'S. CALL LIGHT WITHIN REACH, NO FURTHER NEEDS AT THIS TIME.
[2024-10-17] MEDS ORDERED: PHARMACY RENAL DOSE ADJUSTMENT 1 DOSE MISC PO SCH (12:00)
--- NOTE | 2024-10-17 13:24 | NUR ---
PT RESTING IN BED WITH EYES CLOSED, RR EVEN AND UNLABORED. FALL MATS IN PLACE, BED IN LOWEST POSITION, BED ALARM ON. CALL LIGHT IN REACH.
--- NOTE | 2024-10-17 14:51 | NUR ---
PATIENT IS LYING IN BED WITH EYES CLOSED AND RESPIRATIONS ARE EVEN AND UNLABORED. CALL LIGHT AND PERSONAL BELONGINGS ARE WITHIN REACH.
--- NOTE | 2024-10-17 15:38 | NUR ---
SECONDARY ASSESSMENT COMPLETE. PT REPORTS PAIN IS A 2/10 AND IS REQUESTING NO INTERVENTIONS AT THIS TIME. PTs LLE IS RED AND WARM, WITH REDNESS NOTED TO BE RECEDING FROM ORIGINAL MARGINS. EDEMA NOTED WITH 2+ PITTING, PEDAL PULSES ARE FAINT WITH A CAPILLARY REFILL LESS THAN 3 SECONDS. PT REPORTS HE IS FEELING BLOATED. BOWEL TONES ACTIVE IN ALL QUADRANTS, PT REPORTING MILD PAIN IN LLQ. EDUCATED PT ON IMPORTANCE OF AMBULATION TO ENCOURAGE PERISTALSIS, PT EXPRESSES UNDERSTANDING. BOTH IVs FLUSH WNL, R FOREARM IV INFUSING IVF PER ORDERS. NO OTHER NEEDS AT THIS TIME, CALL LIGHT AND PERSONAL BELONGINGS IN REACH.
--- NOTE | 2024-10-17 16:43 | NUR ---
PT RESTING IN BED WITH HOB ELEVATED, EYES CLOSED, RR EVEN AND UNLABORED. CALL LIGHT IN REACH.
--- NOTE | 2024-10-17 18:10 | NUR ---
PATIENT IN BED AT THIS TIME. 2 CNAS ASSISTED PATIENT ON A WALK, PATIENT WALKED FROM ROOM 109 TO ROOM 112 AND BACK. CALL LIGHT WITHIN REACH, NO FURTHER NEEDS AT THIS TIME.
--- NOTE | 2024-10-17 18:17 | NUR ---
PATIENT IN BED AT THIS TIME. HORTICULTURAL WORKER CHARTE VITALS AND I&O'S. CALL LIGHT WITHIN REACH, NO FURTHER NEEDS AT THIS TIME.
--- NOTE | 2024-10-17 19:39 | NUR ---
REPORT RECIEVED FROM DAY SHIFT RN. PATIENT RESTING IN CHAIR WITH EYES CLOSED. RESPIRATIONS EVEN AND UNLABORED. CALL LIGHT IN REACH.
--- NOTE | 2024-10-17 20:27 | NUR ---
CALL LIGHT ANSWERED. PT WANTED TO GET BACK INTO BED. CLINICAL EDUCATOR 1PA WITH FWW FROM CHAIR TO BED. CLINICAL EDUCATOR THEN OBTAINED VITALS AND I&O. PT STATES NO FURTHER NEEDS AT THIS TIME. CALL LIGHT WITHIN REACH AND BED ALARM ON.
--- NOTE | 2024-10-17 21:08 | NUR ---
IV PUMP ALARMING, NEW BAG IV FLUIDS HUNG AND IFNUSING DIRECTED, IV SITE WNL. CALL LIGHT IN REACH, BED ALARM ON. NO ADDITIONAL NEEDS OR CONCERNS.
--- NOTE | 2024-10-17 21:17 | NUR ---
MD CALLED BY THIS RN REGARDING PATIENT HOME EYE DROPS. STATES IT IS OK FOR PATIENT TO USE HOME 0.005% LATANOPROST. PATIENT TAKES ONE DROP IN LEFT EYE DAILY AT BEDTIME. ALSO STATED TO HOLD HEPARIN THIS EVENING DUE TO LOW PLATELET COUNT.
[2024-10-17] MEDS ORDERED: OPTH OS SCH (21:30)
[2024-10-17] MEDS ORDERED: LATANOPROST 0.005% OS SCH (21:30)
--- NOTE | 2024-10-17 21:40 | NUR ---
PER REQUEST OF PRIMARY RN CARTER, ORDER PLACED FOR pt's HOME LATANOPROST OPHTHALMIC SOLUTION 0.005%-pt TAKES ONE DROP DAILY AT BEDTIME IN LEFT EYE PER pt AND HOME MED RED LIST. MED VERIFIED WITH YANELI IN TELEPHARMACY.
--- NOTE | 2024-10-17 23:45 | NUR ---
CALL LIGHT ANSWERED, pt UP SBA WITH FWW AND VOIDED VIA URINAL AND THEN AMBULATED TO BATHROOM TO ATTEMPT TO HAVE BM, CALL LIGHT IN REACH.
--- NOTE | 2024-10-17 23:56 | NUR ---
BATHROOM CALL LIGHT ANSWERED. PT UNABLE TO HAVE BM. BLEACH BOILER PULLER 1PA WITH FWW BACK TO BED. PT STATES NO FURTHER NEEDS AT THIS TIME. CALL LIGHT WITHIN REACH AND BED ALARM ON. PRIMARY RN IN ROOM.
[2024-10-18] VITALS (9 sets, daily range): BP systolic 113–145; BP diastolic 46–60
--- NOTE | 2024-10-18 00:06 | NUR ---
PATIENT RESTING IN BED. PATIENT REPORTS 3/10 "STOMACH" PAIN. PATIENT STATES THIS HAPPENS ONLY WHEN HE IS CONSTIPATED. PRN PAIN MEDICATION ADMINISTERED. PATIENT HAS NO FURTHER NEEDS AT THIS TIME. CALL LIGHT IN REACH.
--- NOTE | 2024-10-18 02:13 | NUR ---
PATIENT RESTING IN BED. DENIES NEEDS AT THIS TIME. CALL LIGHT IN REACH.
--- NOTE | 2024-10-18 04:40 | NUR ---
PATIENT RESTING IN BED ON BACK WITH EYES CLOSED. RESPIRATIONS EVEN AND UNLABORED. CALL LIGHT IN REACH.
--- NOTE | 2024-10-18 05:16 | NUR ---
CALL LIGHT ANSWERED. PT NEEDED TO USE BATHROOM. MANAGER NC 1PA PT TO STAND AT BEDSIDE AND USE URINAL. PT VOIDED AND ASSISTED BACK TO BED. OUTPUT MEASURED. MANAGER NC THEN OBTAINED VITALS AND I&O. PT WATER REFILLED. PT STATES NO FURTHER NEEDS AT THIS TIME. CALL LIGHT WITHIN REACH AND BED ALARM ON.
--- NOTE | 2024-10-18 07:03 | NUR ---
REPORT RECEIVED FROM MIRA MACHADO. PT RESTING IN BED WITH EYES CLOSED, RR EVEN AND UNLABORED. CALL LIGHT IN REACH.
--- NOTE | 2024-10-18 08:13 | NUR ---
PATIENT IN BED AT THIS TIME. TIRE MECHANIC WENT INTO PATIENTS ROOM FOR HOURLY ROUNDS AND BLOOS SUGAR CHECKS. CALL LIGHT WIHTIN REACH, NO FURTHER NEEDS AT THIS TIME.
--- NOTE | 2024-10-18 08:13 | NUR ---
MEDICATION ADMINISTERED, SEE JAN. PT RESTING IN BED WITH BREAKFAST TRAY AT BEDSIDE, CURRENTLY REPORTS HE IS NOT HUNGRY. PT REPORTS NAUSEA, PRN ANTI-NAUSEA MEDICATION ADMINISTERED PER JAN. NO OTHER NEEDS AT THIS TIME, CALL LIGHT AND PERSONAL BELONGINGS IN REACH.
[2024-10-18 08:38] LABS: BASOPHILS 0.3 % (0-2); EOSINOPHILS 2.2 % (0-6); HEMATOCRIT 29.2 % (35.0-50.0); HEMOGLOBIN 9.9 g/dL (12.0-18.0); LYMPHOCYTES 8.7 % (24-44); MCH 32.1 (27-36); MCV 94.5 fl (81-99); MONOCYTES 8.6 % (0-12); NEUTROPHILS 80.2 % (39-80); PLATELET COUNT 100 K/uL (140-440); RBC 3.09 M/ul (4.3-5.7); RDW 15.7 (10.5-15.0)
[2024-10-18 08:48] LABS: ANION GAP 12.7 (7-21); BUN/CREATININE RATIO 17.83 (6.0-28.6); CALCIUM 8.9 mg/dL (8.5-10.1); CREATININE, SERUM 1.85 mg/dL (0.70-1.30); POTASSIUM 3.7 mmol/L (3.5-5.1)
--- NOTE | 2024-10-18 10:20 | NUR ---
INITIAL ASSESSMENT COMPLETE. LUNG SOUNDS CLEAR TO BUL, DIMINISHED BLL. HEART TONES HEARD WNL, BOWEL TONES ACTIVE. PT REPORTING LESSENED NAUSEA SINCE RECEIVING PRN NAUSEA MEDICATION, HE IS HAVING FLATULENCE AND BELCHING. PT STATES HE IS HAVING ABDOMINAL PAIN RATED A 2/10, REQUESTING NO INTERVENTIONS FOR THIS. PULSES 2+ IN BILAT UPPER EXTREMETIES, 1+ FAINT IN BILAT LOWER EXTREMETIES. RLE HAS 1+ PITTING EDEMA, LLE HAS 2+ PITTING EDEMA. PT CURRENTLY IN RECLINER WITH BLE ELEVATED AND BREAKFAST TRAY IN FRONT OF HIM. ALERT AND ORIENTED X4. REDNESS AND WARMTH UNCHANGED FROM YESTERDAY, REDNESS RECEDING FROM PREVIOUS MARGINS. ICE PACKS APPLIED TO LLE FOR COMFORT, PT REPORTS HE HAS CHRONIC NEUROPATHY IN BLE. LINEN CHANGED BY MIRA GUNN. IVF INFUSING ORDERED. DISCUSSED WITH PT AMBULATING WITH STAFF TODAY AND POSSIBLE SHOWER IF HE'S FEELING UP FOR IT. NO OTHER NEEDS AT THIS TIME, CALL LIGHT IN REACH.
--- NOTE | 2024-10-18 10:25 | NUR ---
PATIENT IN BED AT THIS TIME. CLOTHING SUPERVISOR CHARTED VITALS AND I&O'S. CALL LIGHT WITHIN REACH, NO FURTHER NEEDS AT THIS TIME.
--- NOTE | 2024-10-18 11:33 | NUR ---
OCCUPATIONAL THERAPY INTO SEE PT.
--- NOTE | 2024-10-18 11:34 | NUR ---
PT RESTING IN BED SUPINE, EYES CLOSED RR EVEN AND UNLABORED. SPOUSE PRESENT ON COUCH. CALL LIGHT IN REACH.
--- NOTE | 2024-10-18 13:25 | NUR ---
PT RESTING WITH EYES CLOSED, RR EVEN AND UNLABORED, UP IN RECLINER WITH BLE ELEVATED. CALL LIGHT IN REACH.
--- NOTE | 2024-10-18 14:00 | NUR ---
PATIENT IN BED AT THIS TIME. WOODWORK SALVAGE INSPECTOR CHARTED VITALS AND I&O'S. CALL LIGHT WITHIN REACH, NO FURTHER NEEDS.
--- NOTE | 2024-10-18 14:24 | NUR ---
PT UP IN RECLINER WITH BLE ELEVATED. PT IS RESTING WITH EYES CLOSED, RR EVEN AND UNLABORED. CALL LIGHT IN REACH.
--- NOTE | 2024-10-18 15:50 | NUR ---
SECOND ASSESSMENT COMPLETE. PT SITTING UP IN RECLINER WITH BLE ELEVATED. IVs FLUSH WNL. PTs LLE WARM AND REDDENED, UNCHANGED FROM THIS MORNING. PT IS REPORTING LLE PAIN IS A 4/10, PRN PAIN MEDICATION ADMINISTERED SEE JAN. PT PEDAL PULSE 1+ AND FAINT, CAP REFILL LESS THAN 4 SEC WITH 2+ PITTING EDEMA. PT LEG REPOSITIONED AND ELEVATED FURTHER ON PILLOW. PT REPORTING NO OTHER NEEDS AT THIS TIME, CALL LIGHT IN REACH.
--- NOTE | 2024-10-18 16:46 | NUR ---
KATE JEAN PRESENT IN ROOM.
--- NOTE | 2024-10-18 17:48 | NUR ---
PT AMBULATES IN [place] WITH SBA AND FWW. TOLERATES WELL. PT INTO BED, IVF INFUSING ORDERED, STATES HIS LEG PAIN IS NOW A 2/10. NO OTHER NEEDS, CALL LIGHT IN REACH.
--- NOTE | 2024-10-18 18:11 | NUR ---
PT RESTING IN BED WITH HOB ELEVATED, EYES CLOSED, RR EVEN AND UNLABORED WITH AUDIBLE SNORE. CALL LIGHT IN REACH. FALL MAT IN PLACE X1.
--- NOTE | 2024-10-18 19:26 | NUR ---
REPORT RECIEVED FROM DAY SHIFT RN. PATIENT RESTING IN BED WITH EYES CLOSED. RR EVEN AND UNLABORED. CALL LIGHT IN REACH.
--- NOTE | 2024-10-18 20:10 | NUR ---
MD CALLED REGARDING PATIENTS HEPARIN ORDER. MD GAVE VERBAL TELEPHONE ORDERS TO DC HEPARIN. ORDER VERIFIED USING REPEAT BACK METHOD.
--- NOTE | 2024-10-18 21:21 | NUR ---
VP SECURITIES OBTAINED VITALS AND I&O. PT BLOOD SUGAR TAKEN AND RN NOTIFED. PT STATES NO NEEDS AT THIS TIME. CALL LIGHT WITHIN REACH.
--- NOTE | 2024-10-18 21:57 | NUR ---
PT STATED THE NEED TO USE BATHROOM. HARDWOOD FLOOR REFINISHER 1PA WITH FWW TO BATHROOM. PT HAD SMALL BM. PT ASSISTED BACK TO BED. LEFT LEG ELEVATED WITH PILLOWS. PT STATES NO FURTHER NEEDS AT THIS TIME. CALL LIGHT WITHIN REACH.
--- NOTE | 2024-10-18 22:10 | NUR ---
PATIENT RESTING IN BED. SCHEDULED MEDICATION ADMINSITERED. PATIENT REPORTS 4/10 LLE PAIN. PRN PAIN MEDICATION ADMINISTERED PER PATIENT REQUEST. LLE REDNESS REMAINS WITHIN THE OUTLINE. LLE ELEVATED ON PILLOW. PATIENT DENIES FURTHER NEEDS AT THIS TIME. CALL LIGHT IN REACH.
[2024-10-19] VITALS (9 sets, daily range): BP systolic 115–162; BP diastolic 46–76
--- NOTE | 2024-10-19 00:26 | NUR ---
PATIENT RESTING IN BED ON BACK WITH EYES CLOSED. RR EVEN AND UNLABORED. CALL LIGHT IN REACH.
--- NOTE | 2024-10-19 01:26 | NUR ---
PATIENT RESTING IN BED WIH EYES CLOSED. RESPIRATIONS EVEN AND UNLABORED. CALL LIGHT IN REACH.
--- NOTE | 2024-10-19 02:40 | NUR ---
PATIENT RESTING IN BED ON BACK WITH EYES CLOSED. RESPIRATIONS EVEN AND UNLABORED. CALL LIGHT IN REACH.
--- NOTE | 2024-10-19 03:11 | NUR ---
CALL LIGHT ANSWERED. PT NEEDED TO USE BATHROOM. MOTOR VEHICLE CLERK 1PA WITH FWW TO STAND AT BEDSIDE AND USE URINAL. PT VOIDED AND ASSISTED BACK TO BED. OUTPUT MEASURED. PT STATES NO FURTHER NEEDS AT THIS TIME. CALL LIGHT WITHIN REACH.
--- NOTE | 2024-10-19 03:51 | NUR ---
PATIENT RESTING IN BED ON BACK WITH EYES CLOSED. RESPIRATIONS EVEN AND UNLABORED. CALL LIGHT IN REACH.
[2024-10-19 05:30] LABS: BASOPHILS 0.4 % (0-2); HEMOGLOBIN 10.3 g/dL (12.0-18.0); LYMPHOCYTES 10.9 % (24-44); MCH 32.4 (27-36); MCHC 34.4 g/dl (30-36); MCV 94.3 fl (81-99); MONOCYTES 9.9 % (0-12); NEUTROPHILS 75.8 % (39-80); PLATELET COUNT 101 K/uL (140-440); RBC 3.18 M/ul (4.3-5.7)
[2024-10-19 05:43] LABS: BUN/CREATININE RATIO 17.61 (6.0-28.6); CALCIUM 9.1 mg/dL (8.5-10.1); CREATININE, SERUM 1.59 mg/dL (0.70-1.30)
--- NOTE | 2024-10-19 05:52 | NUR ---
TRANSPORTATION SUPERVISOR OBTAINED VITALS AND I&O. PT WATER REFILLED. PT STATES NO FURTHER NEEDS AT THIS TIME. CALL LIGHT WITHIN REACH.
--- NOTE | 2024-10-19 07:05 | NUR ---
REPORT RECEIVED FROM ENGINEER OF SYSTEM DEVELOPMENT RN CARTER. PATIENT IS LYING IN BED WITH EUES CLOSED AND RESPIRATIONS ARE EVEN AND UNLABORED. CALL LIGHT AND PERSONAL BELONGINGS ARE WITHIN REACH.
--- NOTE | 2024-10-19 08:00 | NUR ---
MIRA GROVES IN THE ROOM AT THIS TIME. PATIENT ANSWERING QUESTIONS. FULL ASSESSMENT COMPLETE. PATIENT IS ALERT AND ORIENTED TIMES FOUR. PATIENT IS ON ROOM AIR AND LUNG SOUNDS ARE CLEAR BILATERALLY. CARDIAC WITH NORMAL S1 AND S2 ON AUSCULTATION. DOPPLER USED FOR PEDAL PULSES BILATERALLY. RADIAL PULSES ARE STRONG BILATERALLY. 2+ PITTING EDEMA NOTED IN THE LLE AND 1+ PITTING EDEMA NOTED IN THE RLE. LLE IS WARM TO THE TOUCH AND RED. SENSATION INTACT WITH NUBNESS AND TINGLING IN THE BILATERAL LOWER EXTREMITIES. PATIENT STATES HE HAS NEUROPATHY. IV SITES BOTH FLUSHED WITH 10 ML NORMAL SALINE. IV IN THE RIGHT UPPER EXTREMITY WITH NS AT 100 ML/HR. IV DRESSING IS CLEAN, DRY, AND INTACT. IV IN THE LEFT FOREARM FLUSHED WITH 10 ML NORMAL SALINE AND IS SALINE LOCKED. IV DRESSING IS CLEAN, DRY, AND INTACT. ABDOMEN IS WITH MODERATE DISTENTION BUT PATIENT STATES THIS IS NORMAL. BOWEL TONES ARE ACTIVE IN ALL FOUR QUADRANTS. PATIENT WITH PAIN RATED 5/10 A HEADACHE AND IN THE ABDOMEN. PRN TYLENOL ADMINISTERED. 0900 MEDICATIONS ADMINISTERED PER THE EMAR. PATIENT STOOD AT THE EDGE OF BED TO VOID. DIETARY BROUGHT UP BREAKFAST TRAY AND SET IT UP FOR THE PATIENT. PATIENT STATED NO FURTHER NEEDS AT THIS TIME. CALL LIGHT AND PERSONAL BELONGINGS ARE WITHIN REACH.
[2024-10-19] MEDS ORDERED: bisacodyL 10 MG SUPP PR ONE (08:30)
[2024-10-19] MEDS ORDERED: MAGNESIUM CITRATE 300 ML BTL PO ONE (08:30)
--- NOTE | 2024-10-19 08:34 | NUR ---
accu check completed. patient has complaints of "hurting toes". Patient also stated, " I feel bloated and like crap. Like I have a cold or something." Nurse notified, call light within reach.
[2024-10-19] MEDS ORDERED: GABAPENTIN 300 MG CAP PO SCH (09:00)
--- NOTE | 2024-10-19 09:47 | NUR ---
PATIENT IS LYING IN BED WITH EYES OPEN AND RESPIRATIONS ARE EVEN AND UNLABORED. CALL LIGHT AND PERSONAL BELONGINGS ARE WITHIN REACH.
--- NOTE | 2024-10-19 10:05 | NUR ---
PATIENT IS LYING IN BED WITH HOB ELEVATED AND LOOKING OUT THE WINDOW. RESPIRATIONS ARE EVEN AND UNLABORED. CALL LIGHT AND PERSONAL BELONGINGS ARE WITHIN REACH.
--- NOTE | 2024-10-19 11:35 | NUR ---
PATIENT IV IN THE RIGHT FOREARM FLUSHED WITH 10 ML NORMAL SALINE TO WORK WITH PT. IV DRESSING IS CLEAN, DRY, AND INTACT. PATIENT STATED NO FURTHER NEEDS AT THIS TIME. CALL LIGHT AND PERSONAL BELONGINGS ARE WITHIN REACH.
[2024-10-19] MEDS ORDERED: GABAPENTIN 300 MG CAP ONE (12:09)
[2024-10-19] MEDS ORDERED: bisacodyL 10 MG SUPP ONE (12:09)
--- NOTE | 2024-10-19 12:22 | NUR ---
SUPPOSITORY AND GABAPENTIN ADMINISTERED AT THIS TIME. PHARMACY STATED TO PULL ON OVERRIDE WHEN RN CALLED. MIRA GROVES TO HELP STAPILIZE PATIENT. MIRA GROVES RECONNECTED PATIENT TO NS MAINTENANCE FLUIDS. PATIENT IS SITTING UPRIGHT IN THE CHAIR WITH LUNCH TRAY TO THE SIDE OF HIM. PATIENT STATED NO FURTHER NEEDS AT THIS TIME. CALL LIGHT AND PERSONAL BELONGINGS ARE WITHIN REACH.
--- NOTE | 2024-10-19 13:13 | NUR ---
PATIENT IS GETTING BACK TO BED WITH KATE TAYLOR. PATIENT AND PAYROLL REPRESENTATIVE STATED NO NEEDS AT THIS TIME. CALL LIGHT AND PEROSNAL BELONGINGS ARE WITHIN REACH.
--- NOTE | 2024-10-19 13:15 | NUR ---
NOTIFIED OF THE PATIENT BM OF CLEAR JELLYFISH LIKE MUCOUS. MD STATED TO PLACE ORDER FOR BOWEL PREP. RN CALLED PHARMACY TO HELP ASSIST WITH THE INPUT OF THE TELEPHONE ORDER. ORDER INPUT BY THIS RN. MD NOTIFIED OF ORDER PLACED AND THAT THE PATIENT WOULD PREFER TO START IN THE MORNING. MD EXPRESSED UNDERSTANDING. MD WITH NO FURTHER ORDERS AT THIS TIME. CALL ENDED.
[2024-10-19 13:37] LABS: INFLUENZA B NAA NEGATIVE (NEGATIVE); RESPIRATORY SYNCYTIAL VIR NAA NEGATIVE (NEGATIVE)
--- NOTE | 2024-10-19 14:57 | NUR ---
PATIENT IS SITTING UPRIGHT IN THE CHAIR WITH BLE ELEVATED. PATIENT WITH EYES CLOSED AND RESPIRATIONS ARE EVEN AND UNLABORED. NS IS INFUSING AT 100 ML/HR. CALL LIGHT AND PERSONAL BELONGINGS ARE WITHIN REACH.
--- NOTE | 2024-10-19 15:45 | NUR ---
PATIENT IS LYING IN THE CHAIR WITH BLE ELEVATED. PATIENT WITH EYES CLOSED AND RESPIRATIONS ARE EVEN AND UNLABORED. TV IS ON. CALL LIGHT AND PERSONAL BELONGINGS ARE WITHIN REACH.
--- NOTE | 2024-10-19 16:05 | NUR ---
PATIENT IS LYING IN BED WITH EYES CLOSED AND RESPIRATIONS ARE EVEN AND UNLABORED UPON RN ENTERING THE ROOM. PATIENT STATED NO COMPLAINTS OF PAIN AT THIS TIME. PATIENT ABDOMEN WITH MODERATE DISTENTION. PATIENT STATES THIS IS NORMAL. LLE REDNESS IS NOW OUTSIDE THE PREVIOUSLY MARKED MARGINS. BLE PEDAL PULSES HEARD WITH THE DOPPLER. CAPILLARY REFILL IS LESS THAN 3 SECONDS IN BILATERAL LOWER EXTREMITIES. 3+ PITTING EDEMA NOTED IN THE LLE AND 2+ PITTING EDEMA NOTED IN THE RLE. NEW MARGINS HAVE BEEN MARKED. PATIENT STATES NO FURTHER NEEDS AT THIS TIME. CALL LIGHT AND PERSONAL BELONGINGS ARE WITHIN REACH. NOTIFIED OF THE PATIENT SWELLING AND REDNESS CHANGES FROM THIS A.M. IN THE LLE. STATED TO CONTINUE THE DAPTOMYCIN DOSE AND ADD 1 G [id number] NOW AND DAILY FOR THE NEXT FIVE DAYS. ALSO STATED TO ADD REPEAT BLOOD CULTURES NOW. STATED NO FURTHER ORDERS. CALL ENDED.
[2024-10-19] MEDS ORDERED: CEFTRIAXONE/SODIUM CHLORIDE 1 GM/100 ML PIGGYBACK IV SCH (16:15)
--- NOTE | 2024-10-19 17:52 | NUR ---
INTAKE AND OUTPUT VALUES TAKEN AND DOCUMENTED IN THE CHART. PATIENT WITH NEW BED WEIGHT TAKEN AND IS 126.2 KG. PATIENT GIVEN FRESH WATER AND WARM BLANKETS. PATIENT STATED NO FURTHER NEEDS AT THIS TIME. CALL LIGHT AND PERSONAL BELONGINGS ARE WITHIN REACH. MD NOTIFIED OF PATIENT WEIGHT GAIN SINCE ADMISSION. MD GAVE TELEPHONE ORDERS. RN TO PUT THEM IN.
[2024-10-19] MEDS ORDERED: FUROSEMIDE 40 MG/4 ML VIAL IV ONE (18:00)
--- NOTE | 2024-10-19 18:10 | NUR ---
IV FLUIDS DISCONTINUED AND 40 MG OF IV LASIX ADMINISTERED AT THIS TIME. IV FLUSHED WITH 10 ML NORMAL SALINE AND IS SALINE LCOKED. IV DRESSING IS CLEAN, DRY, AND INTACT. PATIENT GIVEN A WARM BLANKET. PATIENT EDUCATED ON HOW TO USE THE IS. PATIENT EXPRESSED UNDERSTANDING AND DEMONSTRATED HOW TO USE. PATIENT STATED NO FURTHER NEEDS AT THIS TIME. CALL LIGHT AND PERSONAL BELONGINGS ARE WITHIN REACH.
--- NOTE | 2024-10-19 19:05 | NUR ---
RECIEVED REPORT FROM ZANE RN. PATIENT AWAKE IN BED. PATIENT C/O BEING COLD AND SHIVERING. WARM BLANKET PROVIDED. TEMPERATURE AND BLOOD SUGAR WNL. PATIENT DENIES ADDITIONAL NEEDS AT THIS TIME. CALL LIGHT IN REACH. BED ALARM ACTIVE.
[2024-10-19] MEDS ORDERED: GUAIFENESIN 10 ML UNIT DOSE CUP PO PRN (20:30)
--- NOTE | 2024-10-19 20:58 | NUR ---
IN ROOM RESPONDING TO CALL LIGHT. PATIENT STATES NEED TO VOID. PATIENT VOIDS AT BEDSIDE WITH URINAL. PATIENT REQUESTS TO USE BATHROOM TO TRY TO HAVE A BOWEL MOVEMENT. PATIENT AMBULATES TO THE BATHROOM WITH FWW, SBA. PATIENT BOWEL MOVEMENT UNSUCCESSFUL. PATIENT AMBULATES BACK TO BED. ASSESSMENT COMPLETED. MEDICATION ADMINISTERED, SEE E-MAR. PATIENT WATER REFILLED. PATIENT DENIES ADDITIONAL NEEDS AT THIS TIME. CALL LIGHT IN REACH. BED ALARM ACTIVE.
--- NOTE | 2024-10-19 22:01 | NUR ---
CALL LIGHT ANSWERED. PT UP TO SIDE OF BED TO VOID IN URINAL. PT INCONTINENT ON THE FLOOR. DIA CARE DONE AND CLEAN ATTENDS IN PLACE. GOWN AND SOCKS CHANGED. BACK TO BED, KHLOE VALLECILLO.
[2024-10-20] VITALS (11 sets, daily range): BP systolic 115–162; BP diastolic 49–76
--- NOTE | 2024-10-20 00:05 | NUR ---
IN ROOM TO ROUND ON PATIENT. PATIENT AWAKE IN BED WATCHING TV. PATIENT STATES PAIN IS WELL CONTROLLED. PATIENT REQUESTS MORE WATER, WATER REFILLED. PATIENT DENIES ADDITIONAL NEEDS AT THIS TIME, CALL LIGHT IN REACH.
--- NOTE | 2024-10-20 01:13 | NUR ---
CALL LIGHT ANSWERED. PT UP TO SIDE OF BED TO VOID IN URINAL. BACK TO BED, KHLOE WELL. REPORTS FEELING BETTER. LLE ELEVATED ON PILLOWS. NO FURTHER NEEDS. BED ALARM IN PLACE.
--- NOTE | 2024-10-20 01:45 | NUR ---
IN ROOM TO ROUND ON PATIENT. PATIENT RESTING ON BACK IN BED WITH EYES CLOSED. RESPIRATIONS EVEN AND UNLABORED. NO NEEDS IDENTIFIED AT THIS TIME. CALL LIGHT IN REACH. BED ALARM ACTIVE.
--- NOTE | 2024-10-20 04:34 | NUR ---
IN ROOM TO ROUND ON PATIENT. PATIENT RESTING IN BED ON BACK WITH EYES CLOSED, RESPIRATIONS EVEN AND UNLABORED. NO NEEDS IDENTIFIED AT THIS TIME. CALL LIGHT IN REACH. BED ALARM ACTIVE.
[2024-10-20 05:42] LABS: BASOPHILS 0.5 % (0-2); EOSINOPHILS 3.7 % (0-6); HEMATOCRIT 30.8 % (35.0-50.0); HEMOGLOBIN 10.4 g/dL (12.0-18.0); LYMPHOCYTES 15.1 % (24-44); MCH 32.1 (27-36); MCHC 33.9 g/dl (30-36); MCV 94.7 fl (81-99); MONOCYTES 10.8 % (0-12); NEUTROPHILS 69.9 % (39-80); PLATELET COUNT 114 K/uL (140-440); RBC 3.25 M/ul (4.3-5.7); RDW 15.5 (10.5-15.0)
[2024-10-20 05:59] LABS: ANION GAP 11.6 (7-21); BUN/CREATININE RATIO 15.78 (6.0-28.6); CALCIUM 9.4 mg/dL (8.5-10.1); CREATININE, SERUM 1.71 mg/dL (0.70-1.30); MAGNESIUM 1.9 mg/dL (1.8-2.4); POTASSIUM 3.6 mmol/L (3.5-5.1)
--- NOTE | 2024-10-20 06:00 | NUR ---
CALL LIGHT ANSWERED. PT UP TO SIDE OF BED TO VOID 700 ML CLEAR YELLOW URINE. DAILY WEIGHT OBTAINED. BACK TO BED, KHLOE WELL. DENIES SOB. OCCASIONAL DRY COUGH NOTED. LLE ELEVATED ON PILLOWS. VS AND I&O OBTAINED. NO FURTHER NEEDS. CALL LIGHT IN REACH.
--- NOTE | 2024-10-20 07:02 | NUR ---
REPORT RECEIVED FROM MIRA RAYGOZA AND MIRA GAUTAM. PATIENT IS LYING IN BED WITH EYES CLOSED AND RESPIRATIONS ARE EVEN AND UNLABORED. CALL LIGHT AND PERSONAL BELONGINGS ARE WITHIN REACH.
--- NOTE | 2024-10-20 08:03 | NUR ---
Board has been updated and call light has been placed within reach. Patient declined sitting in his recliner chair breakfeast. Call light has beenplaced within reach
--- NOTE | 2024-10-20 08:18 | NUR ---
0900 MEDICATIONS ADMINISTERED PER THE EMAR. IV IN THE LEFT FOREARM FLUSHED WITH 10 ML NORMAL SALINE AND IS SALINE LOCKED. IV DRESSING IS CLEAN, DRY, AND INTACT. PATIENT BREAKFAST TRAY IS IN THE ROOM AND SET UP IN FRONT OF THE PATIENT. PATIENT STATED NO FURTHER NEEDS AT THIS TIME. CALL LIGHT AND PERSONAL BELONGINGS ARE WITHIN REACH.
--- NOTE | 2024-10-20 08:50 | NUR ---
PATIENT IS SITTING UPRIGHT IN BED WITH EYES OPEN AND RESPIRATIONS ARE EVEN AND UNLABORED. TV ON. BREAKFAST TRAY REMOVED AT THIS TIME. FULL ASSESSMENT COMPLETE AND DOCUMENTED IN THE CHART. PATIENT IS ALERT AND ORIENTED TIMES FOUR. PATIENT IS ON ROOM AIR AND LUNG SOUNDS ARE CLEAR BILATERALLY. CARDIAC WITH NORMAL S1 AND S2 ON AUSCULTATION. RADIAL PULSES ARE STRONG BILATERALLY. BILATERAL PEDAL PULSES HEARD WITH THE DOPPLER. LLE WITH 3+ PITTING EDEMA AND THE RLE WITH 2+ PITTING EDEMA. SENSATION INTACT WITH NO COMPLAINTS OF NUMBNESS AND TINGLING AT THIS TIME. PATIENT WITH NO COMPLAINTS OF NUMBNESS AND TINGLING AT THIS TIME. PATIENT WITH NO COMPLAINTS OF PAIN AT THIS TIME. PATIENT WITH ACTIVE BOWEL TONES IN ALL FOUR QUADRANTS. LAST BM WAS 10/19/24. PATIENT IV BOTH FLUSHED WITH 10 ML NORMAL SALINE AND ARE BOTH SALINE LOCKED. IV DRESSINGS ARE CLEAN, DRY, AND INTACT. ABDOMEN WITH MODERATE DISTENTION NOTED. PATIENT STATES THIS IS A LITTLE MORE THAN NORMAL. PATIENT LLE WITH REDNESS WITHIN THE PREVIOUSLY MARKED MARGINS. LLE IS WARM TO THE TOUCH. PATIENT STATED NO FURTHER NEEDS AT THIS TIME. CALL LIGHT AND PERSONAL BELONGINGS ARE WITHIN REACH.
[2024-10-20] MEDS ORDERED: FUROSEMIDE 40 MG/4 ML VIAL IV SCH (09:00)
[2024-10-20] MEDS ORDERED: POLYETHYLENE GLYCOL 3350 BOTTLE PO ONE (09:00)
--- NOTE | 2024-10-20 09:15 | NUR ---
PATIENT IS SITTING UPRIGHT IN BED WITH EYES OPEN AND RESPIRATIONS ARE EVEN AND UNLABORED. TV IS ON. CALL LIGHT AND PERSONAL BELONGINGS ARE WITHIN REACH.
[2024-10-20] MEDS ORDERED: SOD PHOSPHATE/SOD BIPHOSPHATE 132 ML BTL PR ONE ×2 (09:30→13:45)
--- NOTE | 2024-10-20 10:00 | NUR ---
KUB IS COMPLETE, VISITORS IN ROOM WITH PATIENT.
--- NOTE | 2024-10-20 10:40 | NUR ---
IS ROUNDING WITH THE PATIENT AT THIS TIME.
--- NOTE | 2024-10-20 11:04 | NUR ---
PATIENT IS WORKING WITH PHYSICAL THERAPY AT THIS TIME.
--- NOTE | 2024-10-20 12:21 | NUR ---
In with pt in response to call light. Pt is in the bathroom, using the toilet. Pt stands, SBA, using railing and FWW, able to wipe himself, a little unsteady on his feet while trying to wipe. 1PA while pt ambulated to the chair using FWW. Chair alarm activated. Lunch tray set up. Call light in reach. Pt denies further needs at this time.
--- NOTE | 2024-10-20 13:14 | NUR ---
PATIENT IS SITTING UPRIGHT IN BED AND LOOKING ON THEIR PHONE. RESPIRATIONS ARE EVEN AND UNLABORED. CALL LIGHT AND PERSONAL BELONGINGS ARE WITHIN REACH.
[2024-10-20] MEDS ORDERED: HEParin SOD (PORCINE) 5,000 UNIT/ML SDV SUB-Q SCH (13:42)
--- NOTE | 2024-10-20 15:13 | NUR ---
PATIENT REMAINS LYING ON THEIR RIGHT SIDE AFTER GETTING THE FLEET ENEMA. PATIENT WITH NO COMPLAINTS OF PAIN AT THIS TIME. PATIENT IS ON ROOM AIR AND LUNG SOUNDS ARE CLEAR BILATERALLY. PATIENT WITH NO COMPLAINTS OF SHORTNESS OF BREATH. BILATERAL PEDAL PULSES HEARD WITH THE DOPPLER. 3+ PITTING EDEMA REMAINS IN THE LLE AND 2+ PITTING EDEMA REMAINS IN THE RLE. REDNESS FROM THE LLE HAS SIGNIFICANTLY RECEEDED FROM THE MARGINS MARKED YESTERDAY. CAPILLARY REFILL IN BILATERAL LOWER EXTREMITIES IS LESS THAN 3 SECONDS BILATERALLY. PATIENT STATED NO FURTHER NEEDS AT THIS TIME. CALL LIGHT AND PERSONAL BELONGINGS ARE WITHIN REACH.
--- NOTE | 2024-10-20 16:27 | NUR ---
PATIENT IS SITTING UPRIGHT IN BED WITH EYES CLOSED AND RESPIRATIONS ARE EVEN AND UNLABORED. TV ON. CALL LIGHT AND PERSONAL BELONGINGS ARE WITHIN REACH.
--- NOTE | 2024-10-20 17:05 | NUR ---
PATIENT IS SITTING UPRIGHT IN THE BED WITH EYES CLOSED AND RESPIRATIONS ARE EVEN AND UNLABORED. TV ON. PATIENT STATED NO FURTHER NEEDS AT THIS TIME. CALL LIGHT AND PERSONAL BELONGINGS ARE WITHIN REACH.
--- NOTE | 2024-10-20 18:02 | NUR ---
PATIENT IS SITTING UPRIGHT IN BED WITH EYES CLOSED AND RESPIRATIONS ARE EVEN AND UNLABORED. CALL LIGHT AND PERSONAL BELONGINGS ARE WITHIN REACH.
--- NOTE | 2024-10-20 19:19 | NUR ---
RECIEVED REPORT FROM DAYSSCFT RN. PATIENT RESTING IN BED ON BACK WITH EYES CLOSED. RESPIRATIONS EVEN AND UNLABORED. NO NEEDS IDENTIFIED AT THIS TIME. CALL LIGHT IN REACH. BED ALARM ACTIVE.
--- NOTE | 2024-10-20 21:03 | NUR ---
IN ROOM TO ASSESS PATIENT. ASSESSMENT COMPLETED. MEDICATION ADMINISTERED, SEE E-MAR. PATIENT REQUESTS TO USE THE BATHROOM. 1PA WITH FWW TO THE BATHROOM WITHOUT DIFFICULTY. PATIENT AMBULATED BACK TO BED 1PA WITH FWW WITHOUT DIFFICULTY. PATIENT WATER REFILLED. PATIENT DENIES ADDITIONAL NEEDS AT THIS TIME. CALL LIGHT IN REACH.
--- NOTE | 2024-10-20 23:05 | NUR ---
IN ROOM TO ROUND ON PATIENT. PATIENT REQUESTS TO BE REPOSITIONED IN BED. PATIENT STATES HE PREFERS TO SIT ON EDGE OF BED AND REPOSITON HIMSELF HIGHER. PATIENT REPOSITIONED WITHOUT DIFFICULTY. LEFT LEG ELEVATED ON TWO PILLOWS. PATIENT DENIES ADDITIONAL NEEDS AT THIS TIME. CALL LIGHT IN REACH.
[2024-10-21] VITALS (10 sets, daily range): BP systolic 130–147; BP diastolic 51–66
--- NOTE | 2024-10-21 00:59 | NUR ---
IN ROOM TO ROUND ON PATIENT. PATIENT RESTING IN BED ON BACK WITH EYES CLOSED. RESPIRATIONS EVEN AND UNLABORED. NO NEEDS IDENTIFIED AT THIS TIME. CALL LIGHT IN REACH.
--- NOTE | 2024-10-21 02:35 | NUR ---
IN ROOM TO ROUND ON PATIENT. PATIENT RESTING IN BED ON BACK WITH EYES CLOSED. RESPIRATIONS EVEN AN UNLABORED. NO NEEDS IDENTIFIED AT THIS TIME. CALL LIGHT IN REACH.
--- NOTE | 2024-10-21 04:50 | NUR ---
IN ROOM TO ASSESS MORNING VITALS. VITALS COMPLETED. PATIENT UP THE SIDE OF THE BED WITH FWW TO USE URINAL. PATIENT ABLE TO URINATE WITHOUT DIFFICULTY. DAILY WEIGHT OBTAINED. PATIENT REPOSTIONED IN BED. PATIENT DENIES ADDITIONAL NEEDS AT THIS TIME. CALL LIGHT IN REACH. LAB PRESENT IN ROOM.
[2024-10-21 05:26] LABS: BASOPHILS 0.6 % (0-2); EOSINOPHILS 4.1 % (0-6); HEMATOCRIT 34.4 % (35.0-50.0); HEMOGLOBIN 11.5 g/dL (12.0-18.0); LYMPHOCYTES 19.6 % (24-44); MCH 31.3 (27-36); MCHC 33.5 g/dl (30-36); MCV 93.5 fl (81-99); MONOCYTES 10.1 % (0-12); NEUTROPHILS 65.6 % (39-80); PLATELET COUNT 144 K/uL (140-440); RBC 3.68 M/ul (4.3-5.7); RDW 15.9 (10.5-15.0)
[2024-10-21 05:48] LABS: ANION GAP 13.9 (7-21); BUN/CREATININE RATIO 18.07 (6.0-28.6); CALCIUM 9.9 mg/dL (8.5-10.1); CREATININE, SERUM 1.66 mg/dL (0.70-1.30); MAGNESIUM 2.1 mg/dL (1.8-2.4); POTASSIUM 3.9 mmol/L (3.5-5.1)
--- NOTE | 2024-10-21 07:24 | NUR ---
UR CLINICAL REVIEW: 2 MN FOR [facility]ERSAL[facility]-MEETS INPT CRITERIA FOR CELLULITIS MEDICARE INPT 10/16/24 @ 1307 ORDER MATCHES REG NO AUTH REQUIRED PER MEDICARE GUIDELINES AWAITING SNF PLACEMENT
--- NOTE | 2024-10-21 07:30 | NUR ---
PT RESTING EYES CLOSED AT TIME OF SHIFT REPORT, LEFT UNDISTURBED. H20 AND CALL LIGHT IN REACH.
--- NOTE | 2024-10-21 09:49 | NUR ---
PT AWAKENS FOR MORNING MEAL UP TO THE CHAIR TO EAT. PT AFREES HE IS COMFORTABLE WARM BLANKET PROVIDED FRESH H20 TO CHAIRSIDE TABLE. CALL LIGHT IN REACH DENIES ANY NEEDS OF
--- NOTE | 2024-10-21 10:00 | NUR ---
When entering room patient is found to be in bedside chair with feet eleveted. Pt is awake and alert, oriented to person, place and time. IMM letter explained after introducing myself, IMM letter signed without hesistation, copy of signed letter provided to Steve. No further questions stated for this RN prior to leaving the room.
--- NOTE | 2024-10-21 10:34 | NUR ---
PT REMIANS UP IN THE CHAIR CALL LIGHT IN LAP SPEAKING ON THE PHONE
--- NOTE | 2024-10-21 10:47 | NUR ---
AFTER I DID PATIENT'S BLOOD SUGAR CHECK AND UPDATED THE WHITE PATIENT WAS STILL SLEEPING. SO WHEN I WENT BACK IN AROUND 0830 I WOKE UP PATIENT TO TELL HIM HIS BREAKFAST. IS HERE. I ASKED HIM IF HE WOULD LIKE TO EAT BREAKFAST IN HIS CHAIR AND HE SAID THAT WOULD BE GOOD. PATIENT USED HIS URINAL FIRST. THAN HIM AND I WALKED WITH HIS WALKER TO HIS CHAIR. AND HE ATE HIS BREAKFAST IN HIS CHAIR. BED LINENS CHANGED. HE ALSO WASHED HIS FACE.
--- NOTE | 2024-10-21 10:59 | NUR ---
PATIENT UP IN RECLINER AT THIS TIME. DISCUSSED NEED FOR SNF AT [place]. STATES HE IS AGREEABLE TO THIS. PREVIOUSLY STAYED AT [facility] IN [place]. HE LIKED THE NURSING STAFF. HAD ISSUES THERE BUT IS NOT ENTIREDLY AGAINST RETURNING. PATIENT CHOICE LETTER AND LIST OF FACILITIES GIVEN TO PATIENT. INFORMED HIM THIS NURSE WILL RETURN FOR HIS CHOICE OF 3 FACILITIES TO SEND REFERRALS TO.
--- NOTE | 2024-10-21 11:25 | NUR ---
PT CONTINUES UP IN THE CHAIR AT THIS TIME DENIES NEEDS OF
[2024-10-21] MEDS ORDERED: CEFEPIME HCL IV SCH (11:57)
--- NOTE | 2024-10-21 12:10 | NUR ---
Primary Nurse in with another pt, Dr Page asked about wound consult for this pt. Entered a wound consult at his request. Advised Primary RN Linsey of Dr. Page's message and was told that Dr. Garcia is consulting on this pt and that he will be following all wound issues. Advised Dr. Page of this.
[2024-10-21] MEDS ORDERED: CEFEPIME HCL/D5W 1 GM/100 ML PIGGYBACK IV SCH (12:49)
--- NOTE | 2024-10-21 12:53 | NUR ---
HOSPITALIST IN TO SEE THE PT HE REMAINS UP IN THE CHAIR THIS SHIFT. PT AGREES ALL HIS QUESTIONS WERE ANSWERED. FRESH H20 TO BEDSIDE TABLE LUNCH IS COMPLETED.
--- NOTE | 2024-10-21 13:44 | NUR ---
Advised by Opal Murphy, that the pt's IV is leaking. In with pt for IV site assessment, IV cefepime being administered on IV pump. Pt is up in chair, BLE elevated, call light, bedside table, and personal belongings in reach. IV in RFA appears to be leaking, IV pump placed on pause, dressing removed, hub tightened, noted that IV still leaks out of the insertion site when attempting to flush. New dressing applied to hold it until Primary RN can be notified. IV in LAC assessed, no blood return, but flushes well with 5ml NS flush. IV pump connected to this site and restarted. Will update primary RN, Linsey. Pt denies needs at this time.
--- NOTE | 2024-10-21 14:10 | NUR ---
PT CONTINUES UP IN THE CHAIR, HE HAS HAD NO C/O PAIN OR DISCOMFORT THIS SHIFT. HE USES HIS CALL LIGHT APPROPRIATELY. DENIES NEEDS AT THIS TIME
--- NOTE | 2024-10-21 15:45 | NUR ---
PATIENT ADVANCED DIRECTIVES PROVIDED BY PATIENT. COPY MADE AND PLACED ON CHART, RETURNED PAPERWORK TO PATIENT. DISCUSSED SNF. STATES HE WOULD LIKE REFERRALS TO BE SENT TO [facility] AND [facility]. HIS PRIMARY CHOICE FOR SNF IS [facility]. REFERRALS FOR SNF FAXED TO THOSE THREE FACILITIES.
--- NOTE | 2024-10-21 17:54 | NUR ---
PT UP IN THE CHAIR WITH EVENING MEAL DENIES NEEDS OF
--- NOTE | 2024-10-21 18:57 | NUR ---
DR. DELGADILLO CALLED TO REQUEST DR. AWAN CONSULT. ORDER ENTERED, DR. AWAN CALLED AND WILL SEE PATIENT IN THE MORNING. DR. LEIVA NOTIFIED OF ALL OF THE ABOVE.
--- NOTE | 2024-10-21 19:30 | NUR ---
REPORT RECEIVED FROM DAY SHIFT RN. PT IN BR TO VOID AND HAVE LARGE LIQUID BM. PT ABLE TO DO OWN DIA CARE. BACK TO BED WITH MINIMAL SBA AND FWW. GAIT STEADY. LLE ELEVATED ON PILLOWS. NO FURTHER NEEDS. WHITE BOARD UPDATED. CALL LIGHT IN REACH.
--- NOTE | 2024-10-21 20:56 | NUR ---
EVENING ASSESSMENT COMPLETE. SCHEDULED MEDS ADMIN PER EMAR. PT DENIES PAIN OR NAUSEA. LLE REDNESS NOTED. LLE ELEVATED ON PILLOWS X 2. WOUND CARE NURSE IN TO CONSULT AND CHANGE DRESSING ON LEFT FOOT. PT DENIES SOB. LUNGS CLEAR. PT DENIES SOB. NO FURTHER NEEDS AT THIS TIME. CALL LIGHT IN REACH.
--- NOTE | 2024-10-21 21:18 | NUR ---
2.0 CM DIAMETER ULCER TO LEFT LATERAL FOOT. FULL THICKNESS TISSUE LOSS. 3 O'CLOCK TO 10 O'CLOCK BASE IS DARK PUPLE IN COLOR. 10 O'CLOCK TO 3 O'CLOCK BASE APPEARS PALE PINK. EDGES ARE ROLLED. PERIWOUND HAS DRY, SCALING SKIN. SCANT YELLOW DISCHARGE. AREA SOAKED WITH WET WARM TOWEL. WOUND AND DIA AREA CLEANED WITH WOUND CLEANSER AND DEBRISOFT. COLLAGEN AND IODOSORB PLACED IN WOUND, COVERED WITH ALLEVYN. DOUBLE THICK PINK FOAM PLACED UNDER AND AROUND THE ULCER FOR OFF LOADING. SECURED WITH COBAN. PT STATES THAT THIS IS HOW, DR AWAN WHO HAS BEEN TREATING THE WOUND, HAS BEEN DOING HIS WEEKLY DRESSING CHANGES. MOTOR INTACT. PT HAS CHRONIC NUMBNESS AND TINGLING IN FEET. PULSE FOUND BY DOPPLER AND MARKED. CHANGE DRESSING EVERY 3 DAYS AND PRN.
--- NOTE | 2024-10-21 22:00 | NUR ---
PT RESTING WITH EYES CLOSED. AWAKENS EASILY. IV ABX INFUSING PER EMAR. WARM BLANKET AND FRESH WATER PROVIDED. NO FURTHER NEEDS.
[2024-10-22] VITALS (8 sets, daily range): BP systolic 126–158; BP diastolic 50–64
--- NOTE | 2024-10-22 00:28 | NUR ---
IV PUMP ALARMING. ISSUE RESOLVED. PT DENIES NEEDS AT THIS TIME. CALL LIGHT IN REACH.
--- NOTE | 2024-10-22 02:31 | NUR ---
PT RESTING IN BED WITH EYES CLOSED. RESPIRATIONS EVEN. CALL LIGHT IN REACH.
--- NOTE | 2024-10-22 04:43 | NUR ---
PT RESTING IN BED WITH EYES CLOSED. RESPIRATIONS EVEN. CALL LIGHT IN REACH.
[2024-10-22 05:41] LABS: BASOPHILS 0.7 % (0-2); EOSINOPHILS 3.5 % (0-6); HEMATOCRIT 32.5 % (35.0-50.0); HEMOGLOBIN 11.1 g/dL (12.0-18.0); LYMPHOCYTES 17.6 % (24-44); MCH 31.8 (27-36); MCHC 34.2 g/dl (30-36); MCV 92.9 fl (81-99); MONOCYTES 8.4 % (0-12); NEUTROPHILS 69.8 % (39-80); PLATELET COUNT 162 K/uL (140-440); RDW 15.7 (10.5-15.0)
[2024-10-22 05:48] LABS: BUN/CREATININE RATIO 18.35 (6.0-28.6); CALCIUM 9.6 mg/dL (8.5-10.1); CREATININE, SERUM 1.58 mg/dL (0.70-1.30)
--- NOTE | 2024-10-22 06:02 | NUR ---
PT AWAKE IN BED. IV ABX INFUSING PER ORDER. PT DENIES PAIN OR NAUSEA. DENIES SOB. LLE EDEMA/REDNESS NOTED. REDNESS WITHIN MARGINS. LLE ELEVATED ON TWO PILLOWS. VS AND I&O OBTAINED. DAILY WEIGHT OBTAINED. PT DENIES FURTHER NEEDS. CALL LIGHT IN REACH.
--- NOTE | 2024-10-22 07:15 | NUR ---
PT IS RESTING SOUNDLY AT TIME OF SHIFT REPORT, LEFT UNDISTURBED. CALL LIGHT AND H20 AT BEDSIDE.
--- NOTE | 2024-10-22 08:09 | NUR ---
PATIENT IN BED AT THIS TIME. FURNACE HELPER WENT INTO ROOM FOR HOURLY ROUNDS AND CHARTING BLOOD SUGAR. CALL LIGHT WITHIN REACH, NO FURTHER NEEDS AT THIS TIME.
--- NOTE | 2024-10-22 08:26 | NUR ---
PT UP TO THE CHAIR FOR MORNING MEAL AGREES HE IS COMFORTABLE NO C/O PAIN OR DISCOMFORTS. CALL LIGHT AND NEEDED ITEMS IN REACH
--- NOTE | 2024-10-22 09:13 | NUR ---
PT TO MRI VIA W/C
--- NOTE | 2024-10-22 10:08 | NUR ---
PATIENT IN CHAIR AT THIS TIME. CARGO TRIMMER CHARTED VITALS AND I&O'S. CALLIGHT WITHIN REACH, NO FURTHER NEEDS AT THIS TIME.
--- NOTE | 2024-10-22 10:25 | NUR ---
[facility], STATES THEY CAN ACCEPT THE PATIENT FOR SNF WHEN HE IS MEDICALLY CLEARED.
--- NOTE | 2024-10-22 10:28 | NUR ---
PT IS BACK FROM MRI SEATED IN RECLINER LE ELEVATED.
--- NOTE | 2024-10-22 10:37 | NUR ---
UPDATED PATIENT HE HAS BEEN ACCEPTED TO [facility]. STATES HE WILL HAVE A FRIEND TRANSPORT HIM WHEN HE IS DISCHARGED FROM FACILITY.
--- NOTE | 2024-10-22 10:55 | NUR ---
PATIENT IN CHAIR AT THIS TIME. DENTURE TECHNICIAN WENT INTO PATIENTS ROOM FOR HOURLY ROUNDS. CALL LIGHT IS WITHIN PATIENTS REACH, NO FURTHER NEEDS AT THIS TIME.
[2024-10-22] MEDS ORDERED: DAPTOmycin 500 MG/10 ML VIAL IV SCH (11:49)
--- NOTE | 2024-10-22 12:18 | NUR ---
PT IS UP IN THE CHAIR EATING NOON MEAL AND VISITING WITH A FRIEND. HE DENIES NEEDS AT THIS TIME AND HAS CALL LIGHT IN REACH
--- NOTE | 2024-10-22 13:09 | EKG ---
[facility] [address] [place] [address] Signed Normal sinus rhythm Normal ECG When compared with ECG of 06-MAR-2024 15:04, CA interval has decreased Confirmed by Benja Leiva MD ([id number]) on 10/22/2024 1:09:42 PM Electronically Signed By: BENJA LEIVA DO 10/22/24 1309 PATIENT NAME: SERGEI ESPANA Electrocardiogram DATE OF : 41 PHYSICIAN: BENJA LEIVA DO REPORT #: [id number] REPORT IS CONFIDENTIAL AND NOT TO BE RELEASED WITHOUT AUTHORIZATION
--- NOTE | 2024-10-22 13:51 | NUR ---
O/T IN TO WORK WITH PT
--- NOTE | 2024-10-22 14:03 | NUR ---
NOTIFIED DR. LEIVA PATIENT HAS BEEN ACCEPTED TO [facility]. AWAITING DR. AWAN CONSULT AT THIS TIME. PATIENT IS NOT YET READY FOR DC.
--- NOTE | 2024-10-22 14:27 | NUR ---
PT HAVING A DIFFICULT TIME WITH ONE [employer] TRANSRFERS DUE TO LACK OF BALANCE AND STRENGTH TO LRE. ALEJA STEADY IN ROOM. PT TO BED LE ELEVATED AFTER TRANSFER PRACTICE. TV GUIDE PROVIDED FRESH H20 TO BEDSIDE. PT AGREES HE IS COMFORTABLE DENIES NEEDS
--- NOTE | 2024-10-22 14:40 | NUR ---
PATIENT IN CHAIR AT THIS TIME. CUTTER ALUMINUM SHEET CHARTED PATIENTS VITALS AND I&O'S. CALL LIGHT WITHIN REACH, NO FURTHER NEEDS AT THIS TIME.
--- NOTE | 2024-10-22 16:48 | NUR ---
PT RESTING IN BED WATCHING A MOVIE LE ELEVATED. AGREES HE IS COMFORTABLE AND READY FOR EVENING MEAL. DENIES NEEDS OF
--- NOTE | 2024-10-22 16:54 | NUR ---
PATIENT IN BED AT THIS TIME. NURSING COORDINATOR CHARTED PATIENTS BLOOD SUGAR AND NOTIFIED RN. CALL LIGHT WITHIN REACH, NO FURTHER NEEDS AT THIS TIME.
--- NOTE | 2024-10-22 17:28 | NUR ---
DR AWAN IN TO SEE PT PLANS FOR SURG TOMORROW. PT AGREES ALL HIS QUESTIONS WERE ANSWERED AND HE WILL HAVE SMALL TOE AMPUTATED TOMORROW AM.
--- NOTE | 2024-10-22 17:32 | NUR ---
DR. AWAN IN TO SEE PATIENT. PATIENT IS TO BE NPO AT MIDNIGHT, SURGERY TOMORROW TO REMOVE LEFT PINKY TOE AND METATARSAL. CALL TO DR. SOLIZ TO UPDATE HIM, ALSO D/C'D SQ HEPARIN.
--- NOTE | 2024-10-22 19:00 | NUR ---
RECIEVED REPORT FROM DAYSHIFT RN. PATIENT AWAKE IN BED, WATCHING TV. DISCUSSED UPCOMING SURGERY AND NPO STATUS WITH PATIENT. PATIENT VERBALIZED UNDERSTANDING OF DIET AND EXHIBITED ADEQUATE COPING WITH UPCOMING SURGERY. PATIENT DENIES NEEDS AT THIS TIME. CALL LIGHT IN REACH.
--- NOTE | 2024-10-22 21:45 | NUR ---
IN ROOM TO ADMINSITER MEDICATIONS, SEE E-MAR. ASSESSMENT COMPLETD. PATIENT DENIES NEEDS AT THIS TIME. CALL LIGHT IN REACH. BED ALARM ACTIVE.
--- NOTE | 2024-10-22 22:32 | NUR ---
IN ROOM TO ADMINISTER MEDICATIONS, SEE E-MAR. ASSESSMENT COMPLETED. PATIENT DENIES ADDITIONAL NEEDS AT THIS TIME. CALL LIGHT IN REACH. BED ALARM ACTIVE.
--- NOTE | 2024-10-22 23:27 | NUR ---
PT UP TO BSC WITH 2PA USING ALEJA MATHEWS TO HAVE SMEAR BM. PT NEEDING REMINDER FOR NWB LLE. STAFF ASSIST WITH DIA CARE. BACK TO BED, KHLOE WELL. LLE ELEVATED ON PILLOWS. FRESH WATER PROVIDED. NO FURTHER NEEDS. CALL LIGHT IN REACH.
[2024-10-23] VITALS (12 sets, daily range): BP systolic 130–170; BP diastolic 49–69
--- NOTE | 2024-10-23 | NUR ---
IN ROOM TO ROUND ON PATIENT. PATIENT RESTING IN BED ON BACK WITH EYES CLOSED. RESPIRATIONS EVEN AND UNLABORED. NO NEEDS IDENTIFIED AT THIS TIME. CALL LIGHT IN REACH. BED ALARM ACTIVE. WATER REMOVED FROM ROOM. PATIENT NOW NPO FOR SURGERY.
--- NOTE | 2024-10-23 02:58 | NUR ---
IN ROOM TO ASSESS BEEPING IV PUMP. IV ABX COMPLETED. PATIENT RESTING IN BED ON BACK WITH EYES CLOSED. RESPIRATIONS EVEN AND UNLABORED. NO NEEDS IDENTIFIED AT THIS TIME. CALL LIGHT IN REACH.
--- NOTE | 2024-10-23 03:45 | NUR ---
IN ROOM TO ROUND ON PATIENT. PATIENT RESTING IN BED ON BACK WITH EYES CLOSED. RESPIRATIONS EVEN AND UNLABORED. NO NEEDS IDENTIFIED AT THIS TIME. CALL LIGHT IN REACH. BED ALARM ACTIVE.
[2024-10-23 05:33] LABS: BASOPHILS 0.4 % (0-2); EOSINOPHILS 2.2 % (0-6); HEMATOCRIT 29.6 % (35.0-50.0); HEMOGLOBIN 10.3 g/dL (12.0-18.0); LYMPHOCYTES 13.1 % (24-44); MCH 31.9 (27-36); MCHC 34.6 g/dl (30-36); MCV 92.1 fl (81-99); NEUTROPHILS 76.3 % (39-80); PLATELET COUNT 157 K/uL (140-440); RBC 3.22 M/ul (4.3-5.7); RDW 15.2 (10.5-15.0)
[2024-10-23 05:56] LABS: ANION GAP 12.8 (7-21); BUN/CREATININE RATIO 17.36 (6.0-28.6); CALCIUM 9.1 mg/dL (8.5-10.1); CREATININE, SERUM 1.44 mg/dL (0.70-1.30); POTASSIUM 3.8 mmol/L (3.5-5.1)
--- NOTE | 2024-10-23 06:03 | NUR ---
IN ROOM TO ADMINISTER MEDICATION, SEE E-MAR. ASSESSMENT COMPLETED. PATIENT DENIES NEEDS AT THIS TIME. CALL LIGHT IN REACH. BED ALARM ACTIVE
--- NOTE | 2024-10-23 07:03 | NUR ---
REPORT RECEIVED FROM MIRA RAYGOZA AND MIRA GAUTAM. PT RESTING IN BED WITH EYES CLOSED, RR EVEN AND UNLABORED, CALL LIGHT IN REACH.
--- NOTE | 2024-10-23 08:00 | NUR ---
MORNING MEDS ADMINISTERED, SEE MAR. PT VERBALIZES HE IS FEELING OPTIMISTIC ABOUT SURGERY TODAY. NO OTHER NEEDS AT THIS TIME, CALL LIGHT IN REACH.
--- NOTE | 2024-10-23 08:22 | NUR ---
PATIENT IN BED AT THIS TIME. SALES PROPERTY MANAGER ASSISTED PATIENT WITH URINAL AND CHARTHED BLOOD SUGAR. CALL LIGHT WITHIN REACH, NO FURTHER NEEDS AT THIS TIME.
--- NOTE | 2024-10-23 09:15 | NUR ---
ASSESSMENT COMPLETE. PT RESTING IN BED WITH LLE ELEVATED ON PILLOWS. IV FLUSHES WNL. LUNG SOUNDS CLEAR IN BUL, DIM IN BLL. HEART SOUNDS HEARD WNL, BOWEL TONES ACTIVE IN ALL FOUR QUADRANTS. PT REPORTS GENERAL ABDOMINAL DISCOMFORT BUT NO PAIN TO PALPATION. RADIAL PULSES 2+ IN BOTH WRISTS, DOPPLER UTILIZED TO DETECT R PEDAL PULSE. DRESSING IS COVERING L FOOT, UNABLE TO ASSESS PULSE. CAP REFILL LESS THAN 3 SECONDS BLE. PT REPORTS LLE PAIN A 1/10, DOES NOT REQUEST ANY INTERVENTIONS AT THIS TIME. PT IS ALERT AND ORIENTED, STATES NO ANXIETY RELATED TO SURGERY. LR WITH STRAIGHT AND EXTENSION TUBING HUNG AT BEDSIDE. PT HAS NO OTHER NEEDS AT THIS TIME, CALL LIGHT IN REACH.
[2024-10-23] MEDS ORDERED: Ropivacaine HCl 0.5% 30 ML VIAL ONE (09:34)
[2024-10-23] MEDS ORDERED: LIDOCAINE HCL 2% 20 MG/ML VIAL INJ ONE (09:34)
--- NOTE | 2024-10-23 10:09 | NUR ---
SPOKE WITH PATIENT ABOUT POSSIBLE DISCHARGE TOMORROW TO [facility], DEPENDING ON SURGERY OUTCOME TODAY. WILL RETURN POST OP, TO DISCUSS PLAN.
--- NOTE | 2024-10-23 10:23 | NUR ---
PATIENT LEFT THE FLOOR AT THIS TIME FOR SURGERY.
[2024-10-23] MEDS ORDERED: NALOXONE HCL 0.4 MG SYR IV PRN (10:30)
[2024-10-23] MEDS ORDERED: ondansetron HCL 4 MG/2 ML VIAL IV PRN (10:30)
[2024-10-23] MEDS ORDERED: IBLOOD GLUCOSE TEST STRIP 1 EA TEST VI PRN (10:30)
[2024-10-23] MEDS ORDERED: fentaNYL citrate 50 MCG/ML SDV IV PRN (10:30)
[2024-10-23] MEDS ORDERED: propofoL 200 MG/20 ML VIAL ONE ×2 (10:43)
[2024-10-23] MEDS ORDERED: LIDOCAINE HCL 2% 5 ML SDV ONE (10:43)
[2024-10-23] MEDS ORDERED: VANCOMYCIN HCL 500 MG VIAL ONE (10:47)
--- NOTE | 2024-10-23 11:10 | NUR ---
Patient has been in house x7 days. Currently NPO due to toe amputation surgery planned for later today. Patient lives alone. BMI 33. Good appetite, eating 100% of meals here on a 60 gm cons carb diet. Blood sugars are in good control. Patient is not at nutrition risk at this time. No nutrition intervention needed. Cont current diet. RD will remain available if needed.
--- NOTE | 2024-10-23 11:14 | NUR ---
SPOKE WITH DALE AT [facility], ABLE TO ADMIT PATIENT TOMORROW AT 1300 IF PATIENT IS STABLE FOR DC FROM FACILITY TOMORROW.
--- NOTE | 2024-10-23 11:19 | NUR ---
PATIENT REMAINS OFF THE FLOOR AT THIS TIME.
--- NOTE | 2024-10-23 11:54 | NUR ---
PT REMAINS OFF THE FLOOR AT THIS TIME.
--- NOTE | 2024-10-23 11:59 | NUR ---
10/23/24 1159 Arlene Wilson 1153 PT TO PACU AWAKE DEEP BREATHING AND COUGHTING. PT DENIES PAIN AND NAUSEA. REPORTS FEELING PRESSURE TO LT FOOT BUT NOT PAINFULL
--- NOTE | 2024-10-23 12:30 | NUR ---
PT RETURNS FROM SURGERY, REPORT RECEIVED FROM MIRA MURPHY. PT IN BED ON RA. CPOX PLACED AT BEDSIDE. VS TAKEN. PT DROWSY BUT RESPONDS TO VOICE AND ANSWERS QUESTIONS WHEN ASKED. CURRENTLY REPORTING NO PAIN OR DISCOMFORT. CALL LIGHT IN REACH.
--- NOTE | 2024-10-23 13:52 | NUR ---
PATIENT IN BED AT THIS TIME. ORTHOPAEDIC NURSE CHARTED VITALS AND I&O'S. CALL LIGHT WITHIN REACH, NO FURTHER NEEDS AT THIS TIME.
[2024-10-23] MEDS ORDERED: CEFEPIME HCL/D5W 1 GM/100 ML PIGGYBACK IV SCH (14:00)
--- NOTE | 2024-10-23 14:11 | NUR ---
PT URINAL EMPTIED, LUNCH TRAY REMOVED. PT HAS NO REQUESTS AT THIS TIME, CPOX AT BEDSIDE. CALL LIGHT IN REACH.
--- NOTE | 2024-10-23 14:37 | NUR ---
MEDICATION ADMINISTERED, SEE MAR. WARM BLANKETS AND ANOTHER PILLOW PROVIDED. PT HAS NO OTHER REQUESTS AT THIS TIME. CALL LIGHT IN REACH.
--- NOTE | 2024-10-23 15:12 | NUR ---
PATIENT IN BED AT THIS TIME. PRESSER MACHINE WENT INTO PATIENTS ROOM FOR HOURLY ROUNDS. CALL LIGHT WITHIN REACH, NO FURTHER NEEDS AT THIS TIME.
--- NOTE | 2024-10-23 16:00 | NUR ---
SECOND ASSESSMENT COMPLETE. PT LLE WARM TO TOUCH. DRESSING TO L FOOT IS C/D/I, TOES VISIBLE. CAP REFILL LESS THAN 3 SECONDS. PT REPORTING "HARDLY ANY PAIN!" RATES HIS PAIN A 2/10, NO INTERVENTIONS REQUESTED AT THIS TIME. WARM BLANKETS PROVIDED, PT URINAL EMPTIED. PT IV FLUSHES WNL. NO OTHER REQUESTS AT THIS TIME, CALL LIGHT IN REACH.
--- NOTE | 2024-10-23 19:01 | NUR ---
PATIENT IN BED AT THIS TIME. CUT OFF SAW GRADER CHARTED VITALS AND I&O'S, CUT OFF SAW GRADER LET RN KNOW THAT PATIENT HAD TEMP OF 102.7. CALL LIGHT WITHIN REACH, NO FURTHER NEEDS AT THIS TIME.
--- NOTE | 2024-10-23 19:15 | NUR ---
NOTIFIED OF PT TEMPERATURE OF 102.7 AND PRN TYLENOL ADMINISTRATION. ACKNOWLEDGES AND HAS NO FURTHER ORDERS AT THIS TIME.
--- NOTE | 2024-10-23 19:30 | NUR ---
REPORT RECIEVED FROM DAY SHIFT RN. PATIENT RESTING IN BED WITH EYES CLOSED. RR EVEN AND UNLABORED. CALL LIGHT IN REACH.
--- NOTE | 2024-10-23 20:10 | NUR ---
PATIENT RESTING IN BED. VS AND I&Os OBTAINED AND RECORDED. SCHEDULED MEDICATION ADMINISTERED. IV FLUSHES WNL. IV ABX INFUSING PER ORDER. ASSESSMENT COMPLETE. LLE ELEVATED ON 2 PILLOWS. LLE RED AND HOT TO TOUCH. REDNESS REMAINS WITHIN THE OUTLINE. PATIENT DENIES FURTHER NEEDS AT THIS TIME. FRESH WATER PROVIDED. CALL LIGHT IN REACH. LLE DRESSING C/D/I.
--- NOTE | 2024-10-23 21:17 | NUR ---
ENVIRONMENTAL HEALTH INSPECTOR PLACED [place]. PT WATER REFILLED. PT STATES NO FURTHER NEEDS AT THIS TIME. CALL LIGHT WITHIN REACH.
--- NOTE | 2024-10-23 21:56 | NUR ---
SS INSULIN ADMINISTERED. PATIENT DENIES PAIN OR FURTHER NEEDS. CALL LIGHT IN REACH.
--- NOTE | 2024-10-23 22:30 | NUR ---
PATIENT CPOX ALARMING. PATIENT O2 SAT DROPPED TO HIGH 70s THEN BACK TO LOW 90s. 2L OXY MASK PLACED ON PATIENT. PATIENT 90% ON 2L OXY MASK AT THIS TIME. NO FURTHER NEEDS. CALL LIGHT IN REACH.
[2024-10-24] VITALS (11 sets, daily range): BP systolic 132–159; BP diastolic 46–66
--- NOTE | 2024-10-24 01:20 | NUR ---
PATIENT RESTING IN BED ON BACK. VS AND I&Os OBTAINED AND RECORDED. PRN MEDICATION ADMINSITERED FOR PATIENT ELEVATED TEMP. SCHEDULED IV ABX INFSUING PER ORDER. NO FURTHER NEEDS. CALL LIGHT IN REACH.
--- NOTE | 2024-10-24 03:42 | NUR ---
pt RESTING IN THE BED WITH EYES CLOSED. RR EVEN AND UNLABORED. CALL LIGHT WITHIN REACH.
[2024-10-24 05:29] LABS: BASOPHILS 0.6 % (0-2); EOSINOPHILS 0.9 % (0-6); HEMATOCRIT 30.3 % (35.0-50.0); HEMOGLOBIN 10.6 g/dL (12.0-18.0); LYMPHOCYTES 13.1 % (24-44); MCH 31.7 (27-36); MCHC 34.9 g/dl (30-36); NEUTROPHILS 77.4 % (39-80); PLATELET COUNT 170 K/uL (140-440); RBC 3.33 M/ul (4.3-5.7); RDW 14.9 (10.5-15.0)
[2024-10-24 05:42] LABS: ANION GAP 10.9 (7-21); BUN/CREATININE RATIO 15.58 (6.0-28.6); CALCIUM 9.1 mg/dL (8.5-10.1); CREATININE, SERUM 1.54 mg/dL (0.70-1.30); POTASSIUM 3.9 mmol/L (3.5-5.1)
--- NOTE | 2024-10-24 07:00 | NUR ---
REPORT RECEIVED FROM MIRA MACHADO. PT RESTING IN BED WITH HOB ELEVATED, EYES CLOSED, RR EVEN AND UNLABORED. CPOX AT BEDSIDE.
[2024-10-24] MEDS ORDERED: metroNIDAZOLE 250 MG TAB PO SCH (08:00)
--- NOTE | 2024-10-24 08:27 | NUR ---
MEDICATION ADMINISTERED, SEE MAR. PT SITTING UP IN BED EATING HIS BREAKFAST TRAY. PT HAS OXYMASK ON TOP OF HIS HEAD, OXYMASK REMOVED PTs SPO2 IS 97% ON BEDSIDE CPOX. PT SUSTAINS SPO2>95% ON RA. PT HAS NO REQUESTS AT THIS TIME, CALL LIGHT IN REACH.
--- NOTE | 2024-10-24 10:12 | NUR ---
SPOKE WITH DALE AT [facility] AND INFORMED HER PATIENT WILL NOT BE READY FOR DISCHARGE UNTIL AT LEAST THE BEGINNING OF NEXT WEEK. STATES THEY CAN ACCEPT PATIENT MONDAY AT 1300 IF HE IS MEDICALLY CLEARED. NURSING STAFF AND DR. SOLIZ NOTIFIED.
--- NOTE | 2024-10-24 11:45 | NUR ---
ASSESSMENT COMPLETE. TEMPERATURE RECHECKED AND NOTED TO BE 99.4. PT REPORTS HE IS FEELING A LITTLE BETTER. ENCOURAGED PT TO USE INCENTIVE SPIROMETER, PT DEMONSTRATES ACCURATE USE OF IS X10. PT LUNG SOUNDS CLEAR TO BUL WITH CRACKLES IN BLL. PT ENCOURAGE TO MOVE IN BED, USE IS, DEEP BREATHE, AND COUGH. HEART SOUNDS HEARD WNL, REGULAR. BOWEL TONES ACTIVE IN ALL FOUR QUADRANTS, NON-TENDER. NO NAUSEA. BUE HAS 2+ PULSES, RLE PEDAL FOUND WITH DOPPLER. CAP REFILL LESS THAN 3 SECONDS. PT CAN WIGGLES TOES ON R FOOT BUT CANNOT FEEL SOFT TOUCH. SOME MILD SENSATION BEGINNING TO RETURN WITH A TOE SQUEEZE. PTs RLE IS IN SCD, SCD REMOVED AT THIS TIME TO ALLOW THE LEG TO BREATHE. REDNESS NOTED TO R WILLIS, BLANCHABLE. R LEG WIPED DOWN WITH WARM WATER AND DRIED. IV IN L AC FLUSHES WNL. PT REPORTING PAIN IS A 5/10 IN HIS ABDOMEN, REQUESTING NO INTERVENTIONS AT THIS TIME. NO OTHER NEEDS AT THIS TIME, CALL LIGHT IN REACH.
--- NOTE | 2024-10-24 13:12 | NUR ---
NEW SCD APPLIED TO RLE. AtilektWICK VACUUM CANISTER CHANGED. PT STILL WORKING ON HIS LUNCH, NO OTHER NEEDS AT THIS TIME, CALL LIGHT IN REACH.
--- NOTE | 2024-10-24 14:23 | NUR ---
PT NOT AVAILABLE FOR VISIT. PROVIDED PAYER.
--- NOTE | 2024-10-24 15:30 | NUR ---
SECOND ASSESSMENT COMPLETE. PTs LLE HAS DECREASED REDNESS AND WARMTH COMPARED TO THIS MORNING. PT REPORTING NO PAIN EXCEPT WHEN HE MOVES HIS FOOT, AND THEN THIS PAIN IS A 1/10. HE IS REQUESTING NO INTERVENTION THIS TIME. ICE PACK APPLIED TO LLE, LLE ELEVATED ON TWO PILLOWS. PT REPORTS NO NAUSEA AT THIS TIME AND HIS ABDOMINAL PAIN IS A 3/10. PT LUNG SOUNDS CLEAR TO BUL, DIMINISHED IN RLL WITH CRACKLES IN THE LLL. PT ENCOURAGED TO USE IS AND ACAPELLA, BOTH AVAILABLE AT BEDSIDE. IMAGING ARRIVES TO TAKE XRAY. PT REPOSITIONED IN BED, WARM BLANKET APPLIED. PT SUSTAINING SPO2>94%, CPOX REMOVED PER PROTOCOL. NO FURTHER NEEDS AT THIS TIME, CALL LIGHT IN REACH.
--- NOTE | 2024-10-24 16:06 | NUR ---
DR AWAN CALLED TO UPDATE ON PTs PLAN OF CARE, DR AWAN REPORTS HE WILL COME BY IN THE MORNING FOR SECONDARY DRESSING CHANGE. DR AWAN HAS NO OTHER REQUESTS AT THIS TIME.
--- NOTE | 2024-10-24 18:44 | NUR ---
PT RESTING IN BED WITH HOB ELEVATED RESTING WITH EYES CLOSED, RR EVEN AND UNLABORED. DINNER TRAY REMOVED AT THIS TIME. CALL LIGHT IN REACH.
[2024-10-24] MEDS ORDERED: MAGNESIUM CITRATE 300 ML BTL PO ONE (18:45)
--- NOTE | 2024-10-24 19:26 | NUR ---
RECEIVED REPORT FROM COOKIE TREVIÑO. WHITE BOARD UPDATED. PT ASLEEP, CALL LIGHT WITHIN REACH.
--- NOTE | 2024-10-24 20:50 | NUR ---
PT SLEEPING, AWAKENED EASILY BY RN. DENIES PAIN. LLE ELEVATED ON PILLOWS. LSC DIM, PT DID DB & C X 10. HRR. 2+ EDEMA TO BLE. NO CHANGE TO BASELINE N/T TO BLE. BTA, PT REPORTS CONSTIPATION BUT DECLINES ORDERED MAG CITRATE PER HIS HAT BRIM AND CROWN LAMINATING OPERATOR ANTONIA. SL RAC WNL. LLE REDDEDNED (WITHIN MARKED BORDERS), HOT AND TENDER. DRSG TO LEFT FOOT CDI, LEFT PEDAL PULSE FAINT BUT PALPABLE. NEW MALE EXTERNAL CATH PLACED. HAS NOT BEEN OOB. PT ASSISTED TO REPOSITION IN BED, REQUIRED MOD-MAX ASSIST. TEMP 102.8, BED LINENS LIGHTENED AND PRN TYLENOL ADMINISTERED PER EMAR.
--- NOTE | 2024-10-24 21:04 | NUR ---
CHIEF COUNSEL AND RN OBTAINED VITALS AND I&O. PT PUREWICK CHANGED. ICE WATER REFILLED. PT BOOSTED IN BED AND FOOT ELEVATED ON PILLOWS. PT STATES NO FURTHER NEEDS AT THIS TIME. CALL LIGHT WITHIN REACH AND RN IN ROOM.
[2024-10-24] MEDS ORDERED: LACTULOSE 20 GM/30 ML CUP PO ONE (21:15)
--- NOTE | 2024-10-24 21:30 | NUR ---
DR. SOLIZ NOTIFIED OF PTS ELEVATED TEMP AND REFUSAL OF MAG CITRATE. NEW ORDER FOR LACTULOSE RECEIVED, PT AGREEABLE.
--- NOTE | 2024-10-24 22:18 | NUR ---
OPERATIONS SUPPORT COORDINATOR CHECKED PT TEMP. TEMP IS 102.6. PRIMARY RN NOTIFED.
--- NOTE | 2024-10-24 22:55 | NUR ---
PT AWAKE, WATCHING TV. NO COMPLAINTS AT THIS TIME.
[2024-10-25] VITALS (10 sets, daily range): BP systolic 111–154; BP diastolic 52–61
--- NOTE | 2024-10-25 00:26 | NUR ---
PT UP TO BSC W/ 2 MAX ASSIST AND ALEJA MATHEWS. PT NEEDED CUEING AND ENCOURAGEMENT. NWB TO LLE. LOOSE BM (+). BACK TO BED, LLE ELEVATED. CALL LIGHT WITHIN REACH.
--- NOTE | 2024-10-25 01:41 | NUR ---
PARK WARDEN CHECKED PT TEMP. TEMP IS 98.8. PRIMARY RN NOTIFED.
--- NOTE | 2024-10-25 02:52 | NUR ---
PT SLEEPING SOUNDLY. IV ATB INFUSING. CALL LIGHT WITHIN REACH.
--- NOTE | 2024-10-25 05:28 | NUR ---
CERTIFIED COMPOSITES TECHNICIAN OBTAINED VITALS AND I&O. PT BED WEIGHT OBTAINED. PT WATER REFILLED. NO FURTHER NEEDS STATED AT THIS TIME. CALL LIGHT WITHIN REACH.
--- NOTE | 2024-10-25 05:29 | NUR ---
PT AWAKE, MORNING WEIGHT OBTAINED BY E LEARNING SPECIALIST. RFA IV ATB MAREN'D. CALL LIGHT WITHIN REACH.
[2024-10-25 06:09] LABS: BASOPHILS 0.8 % (0-2); EOSINOPHILS 1.5 % (0-6); HEMATOCRIT 30.2 % (35.0-50.0); HEMOGLOBIN 10.2 g/dL (12.0-18.0); LYMPHOCYTES 16.8 % (24-44); MCH 31.5 (27-36); MCHC 33.9 g/dl (30-36); MCV 92.8 fl (81-99); MONOCYTES 11.1 % (0-12); NEUTROPHILS 69.8 % (39-80); PLATELET COUNT 174 K/uL (140-440); RBC 3.25 M/ul (4.3-5.7); RDW 15.4 (10.5-15.0)
[2024-10-25 06:19] LABS: ANION GAP 8.1 (7-21); BUN/CREATININE RATIO 15.62 (6.0-28.6); CALCIUM 9.1 mg/dL (8.5-10.1); CREATININE, SERUM 1.92 mg/dL (0.70-1.30); MAGNESIUM 2.2 mg/dL (1.8-2.4); POTASSIUM 4.1 mmol/L (3.5-5.1)
--- NOTE | 2024-10-25 07:05 | NUR ---
PT REPORTS DIFFICULTY PEEING THIS AM, PT ASSISTED TO SIT EOB TO FACILITATE VOID. CALL LIGHT WITHIN REACH.
--- NOTE | 2024-10-25 07:08 | NUR ---
REPORT RECEIVED FROM ENGINEERING TECHNICAL WRITER RN CRYSTAL. TAMAR CNA IS ASSISTING PATIENT IN THE ROOM TO USE THE BATHROOM. CALL LIGHT AND PERSONAL BELONGINGS ARE WITHIN REACH.
--- NOTE | 2024-10-25 08:36 | NUR ---
PATIENT IS SITTING UPRIGHT IN BED WITH THE TV ON. PATIENT APPEARS TIRED AND STRUGGLING TO KEEP HIS EYES OPEN. 0800 AND 0900 MEDICATIONS ADMINISTERED PER THE EMAR. IV IN THE RIGHT FOREARM FLUSHED WITH 10 ML NORMAL SALINE. IV IS SALINE LOCKED. PATIENT MENTIONED NOT WANTING TO EAT BREAKFAST AT THIS TIME. PATIENT STATED NO FURTHER NEEDS AT THIS TIME. CALL LIGHT AND PERSONAL BELONGINGS ARE WITHIN REACH. WARM BLANKET PROVIDED.
--- NOTE | 2024-10-25 08:43 | NUR ---
Lab in room for cultures. BS taken (122) and reported to MIRA Ford. Patient taken to imaging at 0800. Returned to bed and set up with breakfast once done.
[2024-10-25] MEDS ORDERED: ENOXAPARIN SODIUM 40 MG/0.4 ML SYR SUB-Q SCH (09:00)
[2024-10-25] MEDS ORDERED: LACTULOSE 20 GM/30 ML CUP PO SCH (09:00)
--- NOTE | 2024-10-25 09:30 | NUR ---
PATIENT IS WORKING WITH OCCUPATIONAL THERAPY AT THIS TIME.
--- NOTE | 2024-10-25 10:31 | NUR ---
PATIENT IS SITTING UPRIGHT IN THE CHAIR WITH BILATERAL LOWER EXTREMITIES ELEVATED. PATIENT WITH EYES CLOSED AND RESPIRATIONS ARE EVEN AND UNLABORED. CALL LIGHT AND PERSONAL BELONGINGS ARE WITHIN REACH.
--- NOTE | 2024-10-25 10:50 | NUR ---
PATIENT IS SITTING UPRIGHT IN THE CHAIR WITH THE BLE ELEVATED. PATIENT ASSESSMENT COMPLETE AND DOCUMENTED IN THE CHART. PATIENT IS ALERT AND ORIENTED TIMES FOUR. PATIENT IS ON ROOM AIR. LUNG SOUNDS ARE CLEAR IN THE UPPER LOBES AND DIMINISHED IN THE BASES BILATERALLY. CARDIAC WITH NORMAL S1 AND S2 ON AUSCULTATION. RADIAL PULSES ARE STRONG BILATERALLY. DOPPLER USED FOR THE RIGHT PEDAL PULSE. LEFT PEDAL PULSE NOT FELT DUE TO PATIENT HAVING DRESSING ON THE LEFT FOOT. CAP REFILL IS LESS THAN 3 SECONDS IN THE UPPER AND LOWER EXTREMITIES BILATERALLY. BLE WITH 2+ PITTING EDEMA. SENSATION INTACT WITH CHRONIC NEUROPATHY NOTED PER THE PATIENT. ABDOMEN WITH MODERATE DISTENTION AND IS TENDER TO PALPATION. BOWEL TONES ARE ACTIVE IN ALL FOUR QUADRANTS. PATIENT IS ON A 60 GRAM CARB DIET AND HIS LAST BM WAS 10/25/24. PATIENT WITH REDNESS NOTED ON THE LLE WITHIN THE PREVIOUSLY MARKED MARGINS. PATIENT WITH SCAB ON THE R GREAT TOE. PATIENT STATED NO FURTHER NEEDS AT THIS TIME. CALL LIGHT AND PERSONAL BELONGINGS ARE WITHIN REACH.
--- NOTE | 2024-10-25 11:27 | NUR ---
PATIENT REMAINS SITTING UPRIGHT IN THE CHAIR WITH BLE ELEVATED. PATIENT WITH EYES CLOSED AND RESPIRATIONS ARE EVEN AND UNLABORED. CALL LIGHT AND PERSONAL BELONGINGS ARE WITHIN REACH.
--- NOTE | 2024-10-25 11:40 | NUR ---
Patient is asleep in their chair. PT entered room and patitent refused to walk. Will try again at 1230.
--- NOTE | 2024-10-25 12:04 | NUR ---
PT RESTING IN CHAIR, EYES CLOSED. AWAKEN TO TAKE MEDICATIONS. INSULIN GIVEN - SEE MAR. DENIES ANY NEEDS AT THIS TIME, CALL LIGHT WITHIN REACH.
--- NOTE | 2024-10-25 12:05 | NUR ---
PT NOT AVAILABLE FOR VISIT. PROVIDED PRAYER.
--- NOTE | 2024-10-25 13:07 | NUR ---
PT SITTING UP IN CHAIR RESTING WITH LEGS RECLINED, RESPIRATIONS EVEN AND UNLABORED. CALL LIGHT WITHIN REACH.
--- NOTE | 2024-10-25 13:30 | NUR ---
PT SITTING UP IN RECLINER WITH LEGS ELEVATED VISITING WITH FRIEND AND EATING LUNCH. NO REQUESTS AT THIS TIME. CALL LIGHT WITHIN REACH
[2024-10-25] MEDS ORDERED: CEFEPIME HCL/D5W 1 GM/100 ML PIGGYBACK IV SCH (14:00)
--- NOTE | 2024-10-25 17:24 | NUR ---
PT SITTING UP IN CHAIR EATING DINNER AND VISITING [employer]. CALL LIGHT WITHIN REACH, NO REQUESTS AT THIS TIME.
--- NOTE | 2024-10-25 18:42 | NUR ---
PT RESTING IN RECLINER WITH LEGS ELEVATED AND EYES CLOSED. RESPIRATIONS EVEN AND UNLABORED. CALL LIGHT WITHIN REACH.
--- NOTE | 2024-10-25 19:33 | NUR ---
RECEIVED REPORT FROM MIRA GROVES. PT ASLEEP IN RECLINER. CALL LIGHT WITHIN REACH. WHITE BOARD UPDATED.
[2024-10-25] MEDS ORDERED: MICONAZOLE NITRATE 1 EA BTL TOP SCH (21:00)
--- NOTE | 2024-10-25 21:06 | NUR ---
PT UP IN RECLINER, ASSISTED TO USE URINAL. VOIDS W/O DIFFICULTY. VSS. DENIES PAIN. LS W/ FINE CRACKLES TO BASES. PT USED ACAPELLA AND IS W/ RT ENCOURAGEMENT. HRR. BTA, BM (+) TODAY. LLE CELLULITIS RED, WARM, SWOLLEN, BORDERS W/IN MARKED LINES. LEFT FOOT DRSG CDI. NO CHANGE TO BASELINE N/T TO BLE. CAP REFILL > 3 SECS BLE. 2+ EDEMA TO BLE. SURGICAL SHOE IN PLACE TO LEFT FOOT. SL RW WNL. BG WNL, NO COVERAGE REQUIRED. CALL LIGHT WITHIN REACH. WARM BLANKETS PROVIDED.
--- NOTE | 2024-10-25 22:04 | NUR ---
PT ASLEEP IN RECLINER. IV ATB ADMINISTERED PER EMAR. CALL LIGHT WITHIN REACH.
--- NOTE | 2024-10-25 23:45 | NUR ---
PT SLEEPING SOUNDLY. APPEARS COMFORTABLE. CALL LIGHT WITHIN REACH.
[2024-10-26] VITALS (9 sets, daily range): BP systolic 121–140; BP diastolic 54–71
--- NOTE | 2024-10-26 00:48 | NUR ---
PT ASSISTED TO USE URINAL. URINE SAMPLE OBTAINED AND SENT TO LAB. FRESH WATER PROVIDED PER REQUEST. CALL LIGHT WITHIN REACH.
[2024-10-26 00:51] LABS: BILIRUBIN, URINE NEGATIVE (negative); BLOOD/HGB, URINE SMALL (Negative); KETONE, URINE NEGATIVE (Negative); LEUK ESTERASE, URINE NEGATIVE (negative); NITRITE, URINE NEGATIVE (negative)
[2024-10-26 01:03] LABS: BACTERIA, URINE 2+ /hpf (negative); CASTS, URINE HYALINE 2+ \\lpf; COLLECTION TYPE, URINE CLEAN CATCH; CRYSTALS, URINE NONE SEEN (0-1+); EPITHELIAL CELLS, URINE NONE SEEN /lpf (0-1+); REFLEX CULTURE, URINE Yes (No)
--- NOTE | 2024-10-26 01:09 | NUR ---
PT UP IN RECLINER, C-PAP APPLIED. O2 SATS 100%.
--- NOTE | 2024-10-26 02:22 | NUR ---
PT REPORTS CPAP NOT WORKING. C-PAP SEEMS TO BE IN GOOD WORKING ORDER. MASK ADJUSTED. WARM BLANKET PROVIDED PER REQUEST.
--- NOTE | 2024-10-26 03:46 | NUR ---
PT ASLEEP IN RECLINER. HAS C-PAP MASK OFF. CALL LIGHT WITHIN REACH.
[2024-10-26 05:33] LABS: BASOPHILS 0.5 % (0-2); EOSINOPHILS 2.7 % (0-6); HEMOGLOBIN 11.3 g/dL (12.0-18.0); LYMPHOCYTES 14.3 % (24-44); MCH 31.5 (27-36); MCHC 34.3 g/dl (30-36); MONOCYTES 11.3 % (0-12); NEUTROPHILS 71.2 % (39-80); PLATELET COUNT 193 K/uL (140-440); RBC 3.58 M/ul (4.3-5.7)
[2024-10-26 05:40] LABS: ANION GAP 12.5 (7-21); BUN/CREATININE RATIO 18.56 (6.0-28.6); CALCIUM 9.5 mg/dL (8.5-10.1); CREATININE, SERUM 1.67 mg/dL (0.70-1.30); MAGNESIUM 2.3 mg/dL (1.8-2.4); POTASSIUM 4.5 mmol/L (3.5-5.1)
--- NOTE | 2024-10-26 06:25 | NUR ---
PT ASLEEP IN RECLINER, WAKES UP FOR VS BUT QUICKLY BACK TO SLEEP. VSS. C-PAP IN PLACE. IV ATB INFUSING PER EMAR.
--- NOTE | 2024-10-26 11:55 | NUR ---
PT REMAINS SITTING UP IN CHAIR. IV FLUSHED AND LOCKED. PT PROVIDED BLANKETS. NO C/O AT THIS TIME
[2024-10-26] MEDS ORDERED: metroNIDAZOLE 250 MG TAB PO SCH (12:00)
[2024-10-26] MEDS ORDERED: CEFEPIME HCL/D5W 1 GM/100 ML PIGGYBACK IV SCH (14:00)
[2024-10-26] MEDS ORDERED: FLU VACC TS2024(65UP)/MF59C/PF 1 EACH SYR ONE (14:12)
--- NOTE | 2024-10-26 14:44 | NUR ---
PT GIV EN FLU VACCINE. COPY OF VACCINATION PROVIDED TO PATIENT. PLACED IN MANILA ENVELOPE AND LEFT AT BEDSIDE.
[2024-10-26] MEDS ORDERED: LACTULOSE 20 GM/30 ML CUP PO SCH (15:00)
--- NOTE | 2024-10-26 18:30 | NUR ---
PT RESTING T/O SHIFT IN RECLINER. PT TRANSFERRED TO BED AT 1800, NOT YET READY TO HAVE CPAP PLACED. NO ACUTE DISTRESS NOTED T/O SHIFT. SR UP X2, CALL HANNAH IN REACH, BED LOCKED AND IN LOW POSITION.
--- NOTE | 2024-10-26 21:30 | NUR ---
IN ROOM TO GIVEN EVENING 2100 MEDS ALONG WITH PRNT YLENOL FOR REPORTED SHARP INTERMITTENT PAIN TO LEFT LEG, 2/10 AT REST WITH PAIN UP TO 8/10-SEE EMAR. MEDS GIVEN WITHOUT ISSUE, ACCUCHECK ALSO COMPLETED-NO INSULIN REQUIRED PER INSULIN SS. PRIMARY RN UPDATED, CALL LIGHT IN REACH.
--- NOTE | 2024-10-26 22:19 | NUR ---
PT AWAKE, WATCHING TV, NO C/O PAIN, WAS MEDICATED EARLIER. COOP WITH ASSESSMENT, DRESSING L FOOT IN PLACE.
--- NOTE | 2024-10-26 23:31 | NUR ---
watching tv, used urinal, voided small amounts medium yellow urine. used urinal, repositioned in bed, dressing L foot intact. flat affect but cooperative
[2024-10-27] VITALS (7 sets, daily range): BP systolic 122–158; BP diastolic 52–61
--- NOTE | 2024-10-27 03:34 | NUR ---
rESTING, IS/CORONET AT BEDSIDE, CPAP OFF AT THIS TIME, ON ROOM AIR. USES URINAL, TURNS SELF IN BED
[2024-10-27 05:24] LABS: BASOPHILS 0.9 % (0-2); EOSINOPHILS 2.8 % (0-6); HEMATOCRIT 31.8 % (35.0-50.0); HEMOGLOBIN 10.8 g/dL (12.0-18.0); LYMPHOCYTES 20.8 % (24-44); MCH 31.4 (27-36); MCV 92.2 fl (81-99); MONOCYTES 11.4 % (0-12); NEUTROPHILS 64.1 % (39-80); PLATELET COUNT 191 K/uL (140-440); RBC 3.45 M/ul (4.3-5.7); RDW 15.1 (10.5-15.0)
--- NOTE | 2024-10-27 05:34 | NUR ---
awake, on room air, cpap and is at bedside. no c/o pain or sob. L foot dressing intact, edema to LE no changes, elevated to comofrt, pillows removed at this time, his requests. daily bed weight 124.8 KG
[2024-10-27 05:38] LABS: ANION GAP 12.5 (7-21); BUN/CREATININE RATIO 18.02 (6.0-28.6); CALCIUM 9.7 mg/dL (8.5-10.1); CREATININE, SERUM 1.72 mg/dL (0.70-1.30); MAGNESIUM 2.4 mg/dL (1.8-2.4); POTASSIUM 4.5 mmol/L (3.5-5.1)
--- NOTE | 2024-10-27 06:50 | NUR ---
DR AWAN IN pt ROOM COMPLETING DRESSING CHANGE TO LEFT FOOT. PER DR AWAN, TIAGO TO COMPLETE WOUND CARE ORDER FROM 10/21 pt HAS SINCE HAD TOE AMPUTATION. PRIMARY RN UPDATED.
--- NOTE | 2024-10-27 07:06 | NUR ---
VERBAL REPORT RECEIVED FROM MIRA MUNIZ. PT RESTS IN BED WITH EYES CLOSED, RESP EVEN AND UNLABORED.
--- NOTE | 2024-10-27 07:06 | OR ---
[facility] [place] [facility] [address], [place] [address] Signed DATE OF OPERATION: 10/23/2024 SURGEON: Quique Garcia DPM PREOPERATIVE DIAGNOSES: 1. Diabetic ulcer, left foot. 2. Osteomyelitis, left foot. POSTOPERATIVE DIAGNOSES: 1. Diabetic ulcer, left foot. 2. Osteomyelitis, left foot. DOZER OPERATOR SURGEON: Dread Portillo DPM ANESTHESIA: IV general with local block, left foot. VAULT INSTALLER: Rolanda Lopez CRNA SPECIMEN TO PATHOLOGY: Soft tissue and bone of left 5th digit, soft tissue of ulcer excision, and bone of left 5th metatarsal head. PROCEDURES PERFORMED: 1. Amputation, left 5th digit. 2. Debridement, left 5th metatarsal. DESCRIPTION OF PROCEDURE: The patient was brought to the operating room and placed on the table in the supine position. Anesthesia Department administered IV sedation after which a local block was given to the left foot using a total of 7 mL of 1:1 mixture 2% lidocaine plain and 0.5% ropivacaine plain. The left leg and foot was then prepped and draped in the usual sterile manner and an Esmarch was used for hemostasis. Attention was initially directed to the ulcer site plantar/lateral left 5th metatarsal head. The ulcer site was approximately 2 cm in diameter. Therefore, with amputation of the 5th digit, the plan was to create a soft tissue flap from the toe, which could be used to help close the soft tissue deficit from the ulcer site. An incision was made Electronically Signed By: QUIQUE GARCIA DPM 10/27/24 0706 PATIENT NAME: SERGEI ESPANA OPERATIVE REPORT DATE OF : 41 REPORT #: [id number] PHYSICIAN: QUIQUE GARCIA DPM PCP: GERMAINE HERMOSILLO MD REPORT IS CONFIDENTIAL AND NOT TO BE RELEASED WITHOUT AUTHORIZATION [facility] [address] [place] [id number] Signed over the left 5th digit, preserving the plantar soft tissues of the toe to use as a soft tissue flap. The soft tissue including the nail and on the dorsal/lateral aspect of the toe was left intact on the toe. The plantar soft tissues were reflected from the toe, exposing the base of the 5th digit and the digit was disarticulated at the MTPJ and removed in toto. At this time, soft tissues were reflected proximally to expose the head of the 5th metatarsal, which was then resected using power instrumentation. Necrotic tissue was noted from the ulcer site onto the lateral aspect of the 5th metatarsal head as well as the plantar aspect. At this time, the ulcer was excised leaving a fresh healthy margin without necrotic appearance. Hand instrumentation then used to debride any remaining necrotic tissue within the wound site and the osteotomy site was then also inspected and noted to have healthy appearing positively bleeding bone. The surgical site then irrigated with copious amounts of normal saline and soft tissues then closed using 3-0 nylon monofilament suture. Prior to complete closure, antibiotic beads were placed into the wound site, using calcium sulfate antibiotic beads containing vancomycin. The surgical site was then completely closed primarily and a dressing was then applied consisting of Adaptic, Betadine-soaked gauze, dry gauze, ABD pad, Kerlix roll, and Coban to secure the dressing, but with very little compression. INTRAOPERATIVE COMPLICATIONS: None. ESTIMATED BLOOD LOSS: Less than 5 mL. HEMOSTASIS: An Esmarch was used during the procedure for hemostasis. The patient tolerated the procedure and the anesthesia well and left the operating room with vital signs stable and vascular status intact to left foot as evidenced by hyperemia with removal of the Esmarch. Quique Garcia DPM DFB/MODL /[id number] Electronically Signed By: QUIQUE GARCIA DPM 10/27/24 0706 PATIENT NAME: SERGEI ESPANA OPERATIVE REPORT DATE OF : 41 REPORT #: [id number] PHYSICIAN: QUIQUE GARCIA DPM PCP: GERMAINE HERMOSILLO MD REPORT IS CONFIDENTIAL AND NOT TO BE RELEASED WITHOUT AUTHORIZATION [facility] [address] [place] [address] [place] [address] Signed Copies: ~ Electronically Signed By: QUIQUE GARCIA DPM 10/27/24 0706 PATIENT NAME: SERGEI ESPANA OPERATIVE REPORT DATE OF : 41 REPORT #: [id number] PHYSICIAN: QUIQUE GARCIA DPM PCP: GERMAINE HERMOSILLO MD REPORT IS CONFIDENTIAL AND NOT TO BE RELEASED WITHOUT AUTHORIZATION
--- NOTE | 2024-10-27 10:07 | NUR ---
IV pump alarm went off, MIRA Ch notified. Patient had a visitor in the room, no cares were requested.
--- NOTE | 2024-10-27 12:12 | NUR ---
PT SITS UP IN RECLINER, CALL LIGHT AND BELONGINGS IN REACH. BLE ELEVATED. LEFT FOOT DRESSING REMAINS C/D/I. NO REQUESTS AT THIS TIME.
--- NOTE | 2024-10-27 20:10 | NUR ---
PT WAS UP INCHAIR, LEGS ELEVATED, BACK TO BED 1PA/FWW, ORTHO SHOE L FOOT, DRESSING L FOOT CDI. TOLERATED WELL, ON ROOM AIR, LUNGS CLEAR BILAT, DIM AT BASES, WORKING WITH IS/AT BEDSIDE. DID WELL. NO C/O SOB. C/O 3/10 L FOOT PAIN AND H/A, MEDICATED WITH TYLENOL. DID OWN EYE DROPPS HOME MEDS L EYES. IN BED, HOB ELEVATED, FOOT OF BED ELEVATED AND L FOOT ELEVATED WITH PILLOWS. DECREAED REDNESS AND EDEMA TO L LEG PRESENT, 2+ PITTING EDEMA AND 1+ R LEG. PLEASANT AND COOPERATIVE. BED ALRM ON PER NURSING JUDGEMENT, PT AWARE.
--- NOTE | 2024-10-27 22:41 | NUR ---
Using CPAP, no c/o pain, eyes closed, uses urinal voiding dark yellow urine, dressing L foot, elevated
--- NOTE | 2024-10-28 02:52 | NUR ---
RESTING, NO S/SX DISTRESS, TOOK CPAP OFF, ON ROOM AIR. L FOOT DRESSING IN PLACE, ELEVATED W PILLOWS
[2024-10-28 05:12] VITALS: BP 144/66
[2024-10-28 05:23] VITALS: BP 144/66
[2024-10-28 05:34] LABS: BASOPHILS 0.6 % (0-2); EOSINOPHILS 2.5 % (0-6); HEMATOCRIT 31.3 % (35.0-50.0); HEMOGLOBIN 10.8 g/dL (12.0-18.0); LYMPHOCYTES 18.5 % (24-44); MCH 31.4 (27-36); MCHC 34.4 g/dl (30-36); MCV 91.3 fl (81-99); MONOCYTES 9.8 % (0-12); NEUTROPHILS 68.6 % (39-80); PLATELET COUNT 213 K/uL (140-440); RBC 3.43 M/ul (4.3-5.7); RDW 15.5 (10.5-15.0)
[2024-10-28 05:52] LABS: ALBUMIN 2.4 g/dL (3.4-5.0); ALBUMIN/GLOBULIN RATIO 0.67 (1.1-2.4); ANION GAP 10.3 (7-21); BILIRUBIN, TOTAL 0.3 ng/dL (0.2-1.0); BUN/CREATININE RATIO 18.49 (6.0-28.6); CALCIUM 9.5 mg/dL (8.5-10.1); CREATININE, SERUM 1.46 mg/dL (0.70-1.30); POTASSIUM 4.3 mmol/L (3.5-5.1)
--- NOTE | 2024-10-28 07:02 | NUR ---
CLARIFICATION TO AMBULATION - NWB L LEG/ORTHO SHOE IN PLACE. AMBULATE ONLY FROM BED TO CHAIR OR BATHROOM. NOT TO OVERDOIT TO PREVENT SUTURES FROM COMING APART. ELEVATE LEG MUCH POSSIBLE. PER DR AWAN
--- NOTE | 2024-10-28 07:05 | NUR ---
VERBAL REPORT RECEIVED FROM MIRA MUNIZ. DR. AWAN IN ROOM, CHANGES DRESSING TO LLE. PT RESTS IN BED DURING PROCEDURE.
--- NOTE | 2024-10-28 07:14 | NUR ---
Spoke with Dr. Garcia. Per Podiatry view, pt is ready for dc. Orders for wounds are in the chart and he would like to see the pt weekly for 3 weeks.I let him know pt will be going to a SNF. I will contact the office and schedule FU appts x 3.
--- NOTE | 2024-10-28 08:24 | NUR ---
PATIENT IN BED AT THIS TIME. PROOF TECHNICIAN HELPER CHARTED PATIENTS BLOOD SUGAR AND NOTIFIED RN. PROOF TECHNICIAN HELPER DID HOURLY ROUNDS ON PATIENT. CALL LIGHT WITHIN REACH, NO FURTHER NEEDS AT THIS TIME.
--- NOTE | 2024-10-28 09:07 | NUR ---
[facility]HEEL[facility]IR [facility] SCHEDULED TO TAKE PATIENT TO [facility] AT 1200. CALLED [facility]. FOLLOW-UP APPOINTMENTS 10/30/24 @ 1530, 11/06/24 @ 1530 AND WILL SCHEDULED 3RD FOLLOW-UP WITH DR. AWAN AT PATIENT APPOINTMENT DUE TO HOLIDAY.
--- NOTE | 2024-10-28 09:21 | NUR ---
DISCUSSED WITH PATIENT DC PLAN TO GO TO [facility] AT 1200 VIA WHEELCHAIR VAN. HE VOICES HE WISHES HE KNEW AT LEAST A DAY OR TWO PRIOR TO DC WHAT DAY DUE TO PLANNING WITH FRIENDS FOR TRANSPORT. INFORMED PATIENT DUE TO HIM HAVING [employer], DC PLAN WAS NOT SET UNTIL THIS MORNING TO ENSURE HIS BEING MEDICALLY STABLE FOR DC. VOICES UNDERSTANDING. INFORMED HIM OF FOLLOW-UP APPOINTMENTS SCHEDULED WITH CARDS FOR APPOINTMENTS PROVIDED.
[2024-10-28 09:24] VITALS: BP 123/55
[2024-10-28] MEDS ORDERED: CEFDINIR300 MG PO (10:30)
[2024-10-28] MEDS ORDERED: BACTRIM DS TAB1 EACH PO (10:31)
[2024-10-28] MEDS ORDERED: METRONIDAZOLE250 MG PO (10:32)
[2024-10-28] MEDS ORDERED: ADMELOG100 UNIT/1 SUB-Q (10:33)
[2024-10-28] MEDS ORDERED: GABAPENTIN300 MG PO (10:33)
--- NOTE | 2024-10-28 10:34 | NUR ---
PATIENT IN BED AT THIS TIME. PARACHUTE TAPER CHARTED VITALS AND I&O'S. CALL LIGHT WITHIN REACH, NO FURTHER NEEDS AT THIS TIME.
--- NOTE | 2024-10-28 10:40 | PATH ---
[facility] [address], [place] [address] Signed SPECIMEN(S): A LEFT 5TH TOE AND METATARSAL HEAD SPECIMEN SOURCE: A. LEFT 5TH TOE AND METATARSAL HEAD CLINICAL HISTORY: Osteomyelitis of fifth left toe FINAL PATHOLOGIC DIAGNOSIS: Toe, left 5th with metatarsal head, amputation: - Skin and soft tissue with ulceration and acute and chronic inflammation - Bone with no significant pathologic changes; negative for acute osteomyelitis - Surgical margins appear viable BRP MICROSCOPIC EXAMINATION: Histologic sections of all submitted blocks are examined by light microscopy. These findings, together with the gross examination, support the pathologic diagnosis. GROSS DESCRIPTION: The specimen, labeled and designated "Salo Tanner, left fifth metatarsal and toe per requisition," is received in formalin and consists of a 5.3 x 1.7 x 1.7 cm toe that has been disarticulated through the metatarsal joint. There is scant amount of skin that is chaudhry and unremarkable with intact toenail. The underlying bone is firm and difficult to cut through with a scalpel. There is a separate 2.9 x 2.7 x 1.1 cm portion of skin with a central area of ulceration. There is no underlying bone. Also received is a 1.7 x 1.7 x 1.1 cm metatarsal head the bone is firm and difficult to cut through with a scalpel. There are no discrete areas of hemorrhage. Spool Fixer sections are submitted as follows: Cassette Summary: (A1) skin margin and metatarsal head margin, decal in decal stat (A2) area of ulceration and distal tip of toe with underlying bone, decal in decal stat AA (under the direct supervision of a pathologist) The Gross Description was prepared using a voice recognition system. The report was reviewed for accuracy; however, sound-alike word errors, addition and/or PATIENT NAME: SERGEI TANNER PATHOLOGY DATE OF : 41 REPORT #: [id number] PHYSICIAN: FARHANArchive Systems PATHOLOGY PCP: GERMAINE HERMOSILLO MD REPORT IS CONFIDENTIAL AND NOT TO BE RELEASED WITHOUT AUTHORIZATION [facility] [address], [place] [address] Signed deletions may occur. If there is any question about this report, please contact Client Services. ADDITIONAL NOTES: Immunohistochemical and/or in situ hybridization studies if performed in this case included appropriate positive controls that reacted as expected. This test was developed and its performance characteristics determined by [facility]. It has not been cleared or approved by the U.S. Food and Drug Administration. The FDA has determined that such clearance or approval is not necessary. This test is used for clinical purposes. It should not be regarded as investigational or for research. [facility] is certified under the Clinical Laboratory Improvement Amendments of 1988 (CLIA) as qualified to perform high complexity clinical laboratory testing. PERFORMING LABORATORY: Technical component was performed by [facility], [address] [place] [id number] (CLIA# [id number]). Professional interpretation was performed by [facility] - [facility], [address] [place] [address] (CLIA#: [id number]). Diagnostician: Jeet Narvaez MD Pathologist Electronically Signed 10/28/2024 Copies: ~ PATIENT NAME: SERGEI TANNER PATHOLOGY DATE OF : 41 REPORT #: [id number] PHYSICIAN: [facility] PCP: GERMAINE HERMOSILLO MD REPORT IS CONFIDENTIAL AND NOT TO BE RELEASED WITHOUT AUTHORIZATION
--- NOTE | 2024-10-28 11:09 | NUR ---
ORDERS EMAILED VIA SECURE EMAIL TO [facility].
--- NOTE | 2024-10-28 11:14 | NUR ---
PT ASSISTED TO COLLECT BELONGINGS FOR DISCHARGE. CELL PHONE, CHARGES X2, GLASSES, CPAP, MAIL, JEANS, SOCKS AND UNDERWEAR. IV REMOVED, TIP INTACT, GAUZE AND COBAN DRESSING APPLIED TO SITE, PT TOLERATED WELL. PT ASSISTED TO DRESS AND TRANSFERRED TO WHEELCHAIR. CALL LIGHT IN REACH. DISCUSSED DISCHARGE PLAN FOR PT.
[2024-10-28 11:44] VITALS: BP 139/57
--- NOTE | 2024-10-28 11:55 | NUR ---
PT LEAVES [facility] VIA WHEELCHAIR ESCORTED BY KATE JEAN TO WHEELCHAIR VAN FOR TRANSPORT TO [facility] IN [place]. BELONGINGS WITH PT.
--- NOTE | 2024-10-28 13:30 | NUR ---
CALLED SOFÍA OWUSU TO PROVIDED REPORT, NO ANSWER.
--- NOTE | 2024-10-28 14:51 | NUR ---
REPORT PROVIDED TO MIRA VALIENTE AT [facility] IN [place].
== END 2024-10-28 11:57 | DRG 854 ==
LOC: ED 10:40 → MS 13:12
PROVIDERS: Emergency Medicine; Podiatrist Foot Surgery; Student in an Organized Health Care Education/Training Program; ADMIT Family Medicine; ATTEND Family Medicine
PROC: 3E03329 Introduction of Other Anti-infective into Peripheral Vein, Percutaneous Approach (ICD-10-PCS; 2024-10-16)
PROC: 0Y6N0ZF Detachment at Left Foot, Partial 5th Ray, Open Approach (ICD-10-PCS; principal; 2024-10-23 11:00)
DX: A41.9 Sepsis, unspecified organism (principal); I13.0 Hypertensive heart and chronic kidney disease with heart failure and stage 1 through stage 4 chronic kidney disease, or unspecified chronic kidney disease; L03.116 Cellulitis of left lower limb; N17.9 Acute kidney failure, unspecified; M86.172 Other acute osteomyelitis, left ankle and foot; E11.621 Type 2 diabetes mellitus with foot ulcer; E11.69 Type 2 diabetes mellitus with other specified complication; K59.00 Constipation, unspecified; N18.9 Chronic kidney disease, unspecified; E11.22 Type 2 diabetes mellitus with diabetic chronic kidney disease; E78.5 Hyperlipidemia, unspecified; E11.40 Type 2 diabetes mellitus with diabetic neuropathy, unspecified; E11.51 Type 2 diabetes mellitus with diabetic peripheral angiopathy without gangrene; L97.522 Non-pressure chronic ulcer of other part of left foot with fat layer exposed; M10.9 Gout, unspecified; I50.9 Heart failure, unspecified; Z91.81 History of falling; Z88.0 Allergy status to penicillin; Z88.8 Allergy status to other drugs, medicaments and biological substances; Z88.1 Allergy status to other antibiotic agents; Z79.82 Long term (current) use of aspirin; Z79.85 Long-term (current) use of injectable non-insulin antidiabetic drugs; Z79.02 Long term (current) use of antithrombotics/antiplatelets
CPT/HCPCS: 01482; 36415; 70450; 71045; 71046; 72125; 73630; 73700; 73723; 74018; 80048; 80053; 81001; 81003; 83605; 83735; 83880; 84100; 85025; 85651; 87040; 87070; 87075; 87088; 87205; 87502; 88305; 88311; 90694; 93005; 93010; 94660; 94667; 94668; 94760; 94762; 96365; 96375; 97110; 97161; 97164; 97165; 97168; 97530; 97535; 99285-25; A9270; A9577; C1713; G0480; J0692; J0696; J0878; J1644; J1650; J1815; J1940; J2003; J2405; J2704; J2795; J3370; J7030; Q9967; U0002

== ENCOUNTER 2025-01-13 15:41 | Emergency (ER) | payer MEDICARE, OTHER ==
[~2025-01-13] VITALS: Ht 190.5 cm; Wt 114.8 kg
[~2025-01-13 15:41] MED LIST changes: +ADMELOG100 UNIT/1 SUB-Q; +BACTRIM DS TAB1 EACH PO; +CEFDINIR300 MG PO; +METRONIDAZOLE250 MG PO; +VITAMIN B-121000 MCG
[2025-01-13 15:56] LABS: BASOPHILS 0.4 % (0-2); HEMATOCRIT 38.4 % (35.0-50.0); HEMOGLOBIN 13.3 g/dL (12.0-18.0); LYMPHOCYTES 14.5 % (24-44); MCH 31.8 (27-36); MCHC 34.5 g/dl (30-36); MCV 92.2 fl (81-99); MONOCYTES 6.9 % (0-12); NEUTROPHILS 77.2 % (39-80); PLATELET COUNT 149 K/uL (140-440); RBC 4.17 M/ul (4.3-5.7); RDW 15.5 (10.5-15.0)
[2025-01-13] MEDS ORDERED: SODIUM CHLORIDE 0.9% 0 ML IV PRN (16:00)
[2025-01-13 16:15] LABS: INR 1.02 (0.80-1.30); PROTIME 13.3 Sec (11.2-14.2)
[2025-01-13 16:22] LABS: ALBUMIN 3.7 g/dL (3.4-5.0); ALBUMIN/GLOBULIN RATIO 1.16 (1.1-2.4); ALCOHOL, MEDICAL <3 ng/dL (<3); ALKALINE PHOSPHATASE 82 U/L (46-116); ALT (SGPT) 21 U/L (14-59); ANION GAP 15.1 (7-21); AST (SGOT) 10 U/L (15-37); BILIRUBIN, TOTAL 0.8 mg/dL (0.2-1.0); BUN/CREATININE RATIO 19.18 (6.0-28.6); CALCIUM 10.3 mg/dL (8.5-10.1); CARBON DIOXIDE 26 mmol/L (21-32); CHLORIDE 106 mmol/L (98-107); CREATININE, SERUM 1.72 mg/dL (0.70-1.30); GLOMERULAR FILTRATION RATE,EST 39 mL/min (>60); MAGNESIUM 2.2 mg/dL (1.8-2.4); POTASSIUM 4.1 mmol/L (3.5-5.1); PROTEIN, TOTAL 6.9 g/dL (6.4-8.2); UREA NITROGEN 33 mg/dL (7-18)
[2025-01-13 16:22] LABS: LACTIC ACID, BLOOD 2.8 mmol/L (0.4-2.0)
[2025-01-13] MEDS ORDERED: COZAAR25 MG PO (16:43)
[2025-01-13] MEDS ORDERED: SENSIPAR30 MG PO (16:44)
[2025-01-13] MEDS ORDERED: VITAMIN D350 MCG PO (16:44)
[2025-01-13] MEDS ORDERED: FISH OIL 1,0001 EAC5 PO (16:45)
[2025-01-13] MEDS ORDERED: GLIMEPIRIDE1 MG PO (16:45)
[2025-01-13 16:46] LABS: INFLUENZA B NAA NEGATIVE (NEGATIVE); RESPIRATORY SYNCYTIAL VIR NAA NEGATIVE (NEGATIVE)
[2025-01-13] MEDS ORDERED: FLONASE ALLERG9.9 ML NAS (16:46)
[2025-01-13] MEDS ORDERED: MOMETASONE FURO15 G1 TP (16:47)
[2025-01-13] MEDS ORDERED: MELATONIN5 M1 SL (16:47)
[2025-01-13 17:30] LABS: BILIRUBIN, URINE NEGATIVE (negative); BLOOD/HGB, URINE NEGATIVE (Negative); KETONE, URINE NEGATIVE (Negative); LEUK ESTERASE, URINE NEGATIVE (negative); NITRITE, URINE NEGATIVE (negative)
[2025-01-13 18:46] VITALS: BP 159/90
--- NOTE | 2025-01-13 22:29 | EKG ---
[facility] [address] [place] [address] Signed Sinus rhythm with 1st degree AV block Otherwise normal ECG When compared with ECG of 22-OCT-2024 07:58, WA interval has increased Confirmed by Edwin Deal MD () on 01/13/2025 10:29:16 PM Electronically Signed By: EDWIN DEAL MD 01/13/25 2229 PATIENT NAME: SERGEI ESPANA Electrocardiogram DATE OF : 41 PHYSICIAN: EDWIN DEAL MD REPORT #: [id number] REPORT IS CONFIDENTIAL AND NOT TO BE RELEASED WITHOUT AUTHORIZATION
== END 2025-01-13 18:47 | disposition home or self-care (01) ==
LOC: ED 15:41
PROVIDERS: Emergency Medicine
DX: M54.50 Low back pain, unspecified (principal); W19.XXXA Unspecified fall, initial encounter; E11.9 Type 2 diabetes mellitus without complications; I11.0 Hypertensive heart disease with heart failure; I50.9 Heart failure, unspecified; Z79.01 Long term (current) use of anticoagulants; Z79.82 Long term (current) use of aspirin; Z79.02 Long term (current) use of antithrombotics/antiplatelets; Z79.899 Other long term (current) drug therapy; Z88.0 Allergy status to penicillin; Z88.8 Allergy status to other drugs, medicaments and biological substances; Z88.1 Allergy status to other antibiotic agents
CPT/HCPCS: 36415; 70450; 72131; 80053; 81003; 83605; 83735; 84484; 85025; 85610; 87502; 93005; 93010; 99284-25; G0480; U0002

== ENCOUNTER 2025-07-22 00:42 | Emergency (ER) | payer MEDICARE, OTHER ==
[~2025-07-22] VITALS: Ht 190.5 cm; Wt 123.0 kg
[~2025-07-22 00:42] MED LIST changes: +COZAAR25 MG PO; +FISH OIL 1,0001 EAC5 PO; +MELATONIN5 M1 SL; +MOMETASONE FURO15 G1 TP; +SENSIPAR30 MG PO; +VITAMIN D350 MCG PO
[2025-07-22 01:20] LABS: BASOPHILS 0.3 % (0.2-1.2); EOSINOPHILS 1.3 % (0.8-7.0); LYMPHOCYTES 16.2 % (21.8-53.1); MCH 32.1 PG (25.7-32.2); MCHC 34.4 g/dL (32.3-36.5); MCV 93.2 fL (79.0-92.2); MONOCYTES 6.2 % (5.3-12.2); NEUTROPHILS 75.9 % (34.0-67.9); RBC 4.24 M/uL (4.63-6.08)
[2025-07-22 01:23] LABS: INR 1.1 (0.80-1.30); PROTIME 13.4 Sec (11.2-14.2)
[2025-07-22 01:32] LABS: LACTIC ACID, BLOOD 1.3 mmol/L (0.4-2.0)
[2025-07-22 01:35] LABS: ALT (SGPT) 17.0 U/L (14-59); AST (SGOT) 9.0 U/L (15-37); GLOMERULAR FILTRATION RATE,EST 29.0 mL/min (>60); PROTEIN, TOTAL 7.1 g/dL (6.4-8.2); UREA NITROGEN 33.0 mg/dL (7-18)
[2025-07-22 01:53] LABS: INFLUENZA B NAA NEGATIVE (NEGATIVE); RESPIRATORY SYNCYTIAL VIR NAA NEGATIVE (NEGATIVE)
[2025-07-22 02:16] LABS: BLOOD/HGB, URINE NEGATIVE (Negative); KETONE, URINE NEGATIVE (Negative); LEUK ESTERASE, URINE NEGATIVE (negative); NITRITE, URINE NEGATIVE (negative)
[2025-07-22 02:21] LABS: BACTERIA, URINE RARE /hpf (negative); CASTS, URINE HYALINE 1+ \\lpf; CRYSTALS, URINE NONE SEEN (0-1+); EPITHELIAL CELLS, URINE SQUAMOUS 1+ /lpf (0-1+); REFLEX CULTURE, URINE No (No)
[2025-07-22 03:13] VITALS: BP 145/69
--- NOTE | 2025-07-22 10:44 | EKG ---
[facility] [address] [facility] [place], [place] [address] Signed Sinus rhythm with 1st degree AV block Otherwise normal ECG When compared with ECG of 13-JAN-2025 16:13, No significant change was found Confirmed by THADDEUS HANNAH MD ([id number]) on 07/22/2025 10:43:46 AM Electronically Signed By: THADDEUS HANNAH 07/22/25 1044 PATIENT NAME: SERGEI ESPANA Electrocardiogram DATE OF : 41 PHYSICIAN: THADDEUS HANNAH REPORT #: [id number] REPORT IS CONFIDENTIAL AND NOT TO BE RELEASED WITHOUT AUTHORIZATION
== END 2025-07-22 03:18 | disposition home or self-care (01) ==
LOC: ED 00:42
PROVIDERS: Family Medicine
DX: I13.0 Hypertensive heart and chronic kidney disease with heart failure and stage 1 through stage 4 chronic kidney disease, or unspecified chronic kidney disease (principal); N18.9 Chronic kidney disease, unspecified; I50.9 Heart failure, unspecified; Z88.0 Allergy status to penicillin; Z88.1 Allergy status to other antibiotic agents; Z88.8 Allergy status to other drugs, medicaments and biological substances; Z79.899 Other long term (current) drug therapy
CPT/HCPCS: 36415; 71045; 80053; 81001; 83605; 83880; 85025; 85610; 87502; 93005; 93010; 99285-25; U0002

== ENCOUNTER 2025-09-01 10:47 | Emergency (ER) | payer MEDICARE, OTHER ==
[~2025-09-01] VITALS: Ht 190.5 cm; Wt 123.2 kg
[2025-09-01] MEDS ORDERED: FUROSEMIDE80 MG PO (11:49)
[2025-09-01] MEDS ORDERED: OZEMPIC0.25 MG/02 (11:50)
[2025-09-01 11:56] LABS: BASOPHILS 0.2 % (0.2-1.2); EOSINOPHILS 1.2 % (0.8-7.0); LYMPHOCYTES 9.3 % (21.8-53.1); MCH 32.2 PG (25.7-32.2); MCHC 34.2 g/dL (32.3-36.5); MCV 94.0 fL (79.0-92.2); MONOCYTES 6.3 % (5.3-12.2); NEUTROPHILS 82.8 % (34.0-67.9); RBC 3.98 M/uL (4.63-6.08)
[2025-09-01 12:03] LABS: INR 1.06 (0.80-1.30); PROTIME 13.1 Sec (11.2-14.2)
[2025-09-01 12:08] LABS: ALT (SGPT) 13.0 U/L (14-59); AST (SGOT) 7.0 U/L (15-37); GLOMERULAR FILTRATION RATE,EST 24.0 mL/min (>60); PROTEIN, TOTAL 7.2 g/dL (6.4-8.2); UREA NITROGEN 57.0 mg/dL (7-18)
[2025-09-01 13:30] LABS: BLOOD/HGB, URINE TRACE-I (Negative); KETONE, URINE NEGATIVE (Negative); LEUK ESTERASE, URINE NEGATIVE (negative); NITRITE, URINE NEGATIVE (negative)
[2025-09-01 13:43] LABS: BACTERIA, URINE NONE SEEN /hpf (negative); CASTS, URINE NONE SEEN \\lpf; CRYSTALS, URINE NONE SEEN (0-1+); EPITHELIAL CELLS, URINE SQUAMOUS 1+ /lpf (0-1+); REFLEX CULTURE, URINE No (No)
[2025-09-01 15:24] VITALS: BP 164/74
== END 2025-09-01 15:17 | disposition home or self-care (01) ==
LOC: ED 10:47
PROVIDERS: Emergency Medicine
DX: R10.9 Unspecified abdominal pain (principal); E11.9 Type 2 diabetes mellitus without complications; I11.0 Hypertensive heart disease with heart failure; I50.9 Heart failure, unspecified; Z88.0 Allergy status to penicillin; Z88.8 Allergy status to other drugs, medicaments and biological substances; Z88.1 Allergy status to other antibiotic agents; Z79.899 Other long term (current) drug therapy; Z79.82 Long term (current) use of aspirin
CPT/HCPCS: 36415; 74176; 80053; 81001; 83690; 83735; 85025; 85610; 96374; 99284-25; J2405